=== PATIENT | female | born 1960 | race Caucasian/White ===

== ENCOUNTER 2020-05-10 16:03 | Emergency (ER) | payer OTHER ==
[~2020-05-10] VITALS: Ht 162.6 cm; Wt 63.5 kg
--- OUTSIDE RECORDS SUMMARY | 2020-05-10 18:10 | XMS ---
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 E.Srinivas. VISIT COUNT (12 MO.) 6 [facility] [place] [address] [place] [address] TOTAL 7 NOTE: Visits indicate total known visits. ED/UCC VISIT TRACKING (12 MO.) 05/10/2020 16:05 [facility] [place] TYPE: Emergency COMPLAINT: - POSSIBLE STROKE 04/27/2020 14:53 [facility] [place] TYPE: Emergency DIAGNOSES: - Abdominal Pain - Constipation - Esophageal obstruction - abd pain - Dysphagia, unspecified - Emesis 04/11/2020 19:16 [facility] [place] TYPE: Emergency DIAGNOSES: - poss allergic reaction, stomach pain, nausea - post surgery sent from - Anxiety disorder, unspecified - Hallucinations - Allergic Reaction (Major) - Anxiety - Allergic Reaction 04/05/2020 04:42 [facility] [place] TYPE: Emergency DIAGNOSES: - Dysphagia, unspecified - Allergic reaction - Unspecified adverse effect of drug or medicament, initial enc 03/31/2020 14:06 [facility] [place] TYPE: Emergency DIAGNOSES: - SOB - Shortness of Breath - Shortness of breath [facility] DIAGNOSES: - Dysphagia, unspecified - Shortness of Breath - SOB - Dysphagia 12/30/2019 10:00 [facility] [place] TYPE: Urgent Care DIAGNOSES: - Cough - Bronchitis, not specified as acute or chronic 11/22/2019 10:39 [address] [facility] [place] [place] TYPE: Urgent Care DIAGNOSES: - Dysphagia, unspecified - Medication Refill [facility]05[facility]2019 [facility] [place] [facility] DIAGNOSES: - Other specified eating disorder - Swallowing Difficulty - Dehydration - throat issues - Esophageal obstruction 08/31/2019 08:[address] [facility] [place] TYPE: Urgent Care DIAGNOSES: - Esophagitis, unspecified - Emesis INPATIENT VISIT TRACKING (12 MO.) No inpatient visits to display in this time frame [id number]
[2020-05-10] MEDS ORDERED: POTASSIUM40 MEQ/15 PO (18:51)
--- NOTE | 2020-05-11 07:53 | EKG ---
[facility] [address] [facility] [place] [address] Signed Normal sinus rhythm Right atrial enlargement Nonspecific ST and T wave abnormality Abnormal ECG No previous ECGs available Confirmed by ISHAAN RAMIRES MD ([id number]) on 05/11/2020 7:52:49 AM Electronically Signed By: ISHAAN RAMIRES MD 05/11/20 0753 PATIENT NAME: IVIS VARGAS Electrocardiogram DATE OF : 62 PHYSICIAN: ISHAAN RAMIRES MD REPORT #: [id number] REPORT IS CONFIDENTIAL AND NOT TO BE RELEASED WITHOUT AUTHORIZATION
[2020-05-11] MEDS ORDERED: NITROSTAT0.4 MG SL (10:48)
[2020-05-11] MEDS ORDERED: PROTONIX40 MG PO (10:49)
[2020-05-11] MEDS ORDERED: BUSPIRONE HCL5 MG PO (10:49)
[2020-05-11] MEDS ORDERED: CARDIZEM60 MG PO (10:50)
[2020-05-11] MEDS ORDERED: IMIPRAMINE HCL25 MG PO (10:50)
[2020-05-11] MEDS ORDERED: TRAZODONE HCL50 MG PO (10:51)
== END 2020-05-10 18:59 | disposition short-term general hospital (02) ==
LOC: ED 16:03
DX: E87.6 Hypokalemia (principal)
CPT/HCPCS: 70450; 70496; 70498; 71045; 80053; 81001; 85025; 85610; 85730; 93005; 93010; 99285-25; Q9967

== ENCOUNTER 2020-05-11 03:38 | Inpatient (IN) | payer OTHER ==
[~2020-05-11] VITALS: Ht 162.6 cm; Wt 69.4 kg
[~2020-05-11 03:38] MED LIST: POTASSIUM40 MEQ/15 PO
--- OUTSIDE RECORDS SUMMARY | 2020-05-11 03:40 | XMS ---
PreManage Notification: IVIS VARGAS Security Prefitter Events No recent Security Events currently on file CRITERIA MET - 6 ED Visits in 6 Months - [facility] - 2 Visits in 30 Days CARE PROVIDERS YOLANDA BLANCA Internal Medicine Current PHONE: [phone] Geovanny has no Care Guidelines for this patient. E.Jovita VISIT COUNT (12 MO.) 6 [facility] [address] TOTAL 8 NOTE: Visits indicate total known visits. ED/UCC VISIT TRACKING (12 MO.) 05/11/2020 03:39 [facility] TYPE: Emergency COMPLAINT: - SEIZURE 05/10/2020 16:05 [facility] [place] TYPE: Emergency COMPLAINT: - POSSIBLE STROKE 04/27/2020 14:53 [facility] [place] TYPE: Emergency DIAGNOSES: - Abdominal Pain - Constipation - Esophageal obstruction - abd pain - Dysphagia, unspecified - Emesis 04[facility]11/2020 [facility] [facility] [place] [facility] DIAGNOSES: - poss allergic reaction, stomach pain, nausea - post surgery sent from - Anxiety disorder, unspecified - Hallucinations - Allergic Reaction (Major) - Anxiety - Allergic Reaction 04/05/2020 04:[address] [facility] [place] [facility] DIAGNOSES: - Dysphagia, unspecified - Allergic reaction - Unspecified adverse effect of drug or medicament, initial enc 03/31/2020 14:[address] [facility] [facility] [place] [facility] Emergency DIAGNOSES: - SOB - Shortness of Breath - Shortness of breath 03/11/2020 23[facility] [facility] [place] [facility] DIAGNOSES: - Dysphagia, unspecified - Shortness of Breath - SOB - Dysphagia 12/30/2019 10:00 [facility] [place] TYPE: Urgent Care DIAGNOSES: - Cough - Bronchitis, not specified as acute or chronic [facility] [place] TYPE: Urgent Care DIAGNOSES: - Dysphagia, unspecified - Medication Refill 09/05/2019 14:30 [facility] [place] [facility] DIAGNOSES: - Other specified eating disorder - Swallowing Difficulty - Dehydration - throat issues - Esophageal obstruction 08/31/2019 08:40 [facility] [place] TYPE: Urgent Care DIAGNOSES: - Esophagitis, unspecified - Emesis INPATIENT VISIT TRACKING (12 MO.) No inpatient visits to display in this time frame [email or web address]
--- NOTE | 2020-05-11 07:32 | NUR ---
PT ARRIVED TO ROOM 129 AT 0620 VIA STRETCHER ACCOMPANIED BY HER MOTHER, ROSEY. PT TRANSFERRED TO BED VIA DRAW SHEET. PT OPENS EYES TO VOICE, PUPILS EQUAL, ROUND, AND REACTIVE TO LIGHT. PT OBEYS COMMANDS TO SQUEEZE HANDS. SPEECH IS GARBLED AND DIFFICULT TO UNDERSTAND. PT SLEEPS IN BETWEEN STIMULATION. SKIN GROSSLY INTACT. IV INTACT AND PATENT, FLUIDS INFUSING WNL. PICKETT PATENT AND DRAINING FREELY. PT'S MOTHER ASSISTED WITH MEDICAL HISTORY TO THE BEST OF HER ABILITY. ROOM DARKENED, SEIZURE PADS PLACED, AND BED ALARM SET FOR SAFETY. REPORT GIVEN TO DAY SHIFT NURSES.
--- NOTE | 2020-05-11 07:50 | NUR ---
SLEEPING, NO DISTRESS NOTED.
[2020-05-11] MEDS ORDERED: NITROSTAT0.4 MG SL (10:48)
[2020-05-11] MEDS ORDERED: PROTONIX40 MG PO (10:49)
[2020-05-11] MEDS ORDERED: BUSPIRONE HCL5 MG PO (10:49)
[2020-05-11] MEDS ORDERED: IMIPRAMINE HCL25 MG PO (10:50)
[2020-05-11] MEDS ORDERED: CARDIZEM60 MG PO (10:50)
[2020-05-11] MEDS ORDERED: TRAZODONE HCL50 MG PO (10:51)
--- NOTE | 2020-05-11 11:00 | NUR ---
AWAKE, IS FOLLOWING COMMANDS. DENIES PAIN. ICE CHIPS GIVEN.FAMILY MEMBER IN ROOM.
--- NOTE | 2020-05-11 11:05 | NUR ---
MED REC COMPLETE
--- NOTE | 2020-05-11 12:00 | NUR ---
MORE ALERT. ASSESSMENT DONE. FRIEND REMAINS IN ROOM.
--- NOTE | 2020-05-11 13:00 | NUR ---
TAKING CLEAR LIQUID LUNCH. NO SWALLING TROUBLE NOTED AT THIS TIME.
--- NOTE | 2020-05-11 14:35 | NUR ---
C/O BLADDER DISCOMFORT. ATTEMPTED SEVERAL TIMES TO TALK WITH PATIENT ABOUT PICKETT CATH. HAS MULTIPLE OTHER PROBLEMS R/T HER HEALTH. IS FEARFUL WHEN SOMEONE NOT IN ROOM. NO TREMORS OF SEIZURE LIKE ACTIVITY NOTED THUS FAR TODAY. REPOSITIONED IN BED. SEIZURE PRECAUTIONS REMAIN IN PLACE.
--- NOTE | 2020-05-11 15:51 | NUR ---
PATIENT RESTLESS, SISTER IN ROOM.
--- NOTE | 2020-05-11 17:00 | NUR ---
SITTING UP IN BED FOR CLEAR LIQ DIET. PATIENT REPEATS HERSELF MANY TIMES, SAYING I'M DEHYDRATED, I'M GOING TO , MY FAMILY IS GOING TO IF THEY THEY COME HERE. TALKED WITH PATIENT MANY TIME ABOUT THIS, I CANNOT GET THROUGH TO HER ABOUT THIS. PATIENT IS FRUSTRATED. NO SEIZURE ACTIVITY NOT SO FAR TODAY.
--- NOTE | 2020-05-11 18:59 | NUR ---
NO CHANGES, REPORT TO NEXT SHIFT.
--- NOTE | 2020-05-11 19:04 | NUR ---
RESTING, NO CHANGES AT THIS TIME.
--- NOTE | 2020-05-11 20:35 | NUR ---
PT IS AWAKE, AT FIRST UNABLE TO STATE WHERE SHE WAS BUT LATER WAS ABLE TO SAY SHE WAS IN [place] AND THAT IT WAS 2019. MOSTLY RAMBLES ABOUT BEING DEHYDRATED AND ASKING ABOUT "WATER PILL". HAD PT TAKE SPOONFUL OF WATER AND SHE REACHED FOR HER THROAT AFTER SWALLOWING AND STATED SHE FELT LIKE HER THROAT WAS CLOSING. PT DID NOT CHOKE. PT ALSO SAYS SHE IS DYING. MOTHER OF PT IN TO SEE HER. SPOKE OF PLAN FOR TONIGHT TO MONITOR VS, GIVE ANTI SIEZURE MED AND WILL REEVALUATE IN AM. CATH CARE DONE.
--- NOTE | 2020-05-11 22:00 | NUR ---
RESTING IN BED, OCC REACHING OUT OR SITTING UP TO LOOK AROUND.
--- NOTE | 2020-05-12 00:05 | NUR ---
PT FREQUENTLY MUMBLES, OCC DIFFICULT TO UNDERSTAND. DECLINES OFFER OF WATER. 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 WHEN INFORMED SHE HAD HAD A SEIZURE PT HAD PUZZLED LOOK TO FACE. ASSURED WAS IN A SAFE PLACE.
--- NOTE | 2020-05-12 01:39 | NUR ---
PT IS NOT SLEEPING, OCCVEYES ARE CLOSED BUT IS FREQ REACHING WITH ARMS. CON TO MUMBLE ANSWERS.
--- NOTE | 2020-05-12 03:41 | NUR ---
WILL CLOSE EYES FOR SHORT PERIODS OF TIME. CONT TO HAVE DIFFICULTY UNDERSTANDING CONCEPTS AND EVENTS. PT DOESN'T BELIEVE THAT PICKETT CATHETER IS DRAINING DESPITE BEING SHOWN THE BAG WITH URINE. HAS QUIT TALKING ABOUT BEING DEHYDRATED. CAN TELL ME WHERE SHE LIVES BUT NOT WHAT SHE DID FOR A LIVING. JIM TOUCHES HAIR, WHEN ASKED IF HAD A HEADACHE SHE REPEATED THE PHRASE BACK TO ME SO UNSURE IF SHE DOES. SPEECH IS STILL SOMEWHAT DIFFICULT TO UNDERSTAND SHE MUMBLES.
--- NOTE | 2020-05-12 05:52 | NUR ---
LAB IN TO DRAW BLOOD. PT IS AWAKE BUT LESS TALKATIVE THIS AM. REFUSES WATER WHEN OFFERED.
--- NOTE | 2020-05-12 08:15 | NUR ---
PT IV SITES ARE INTACT, NO REDNESS OR SWELLING NOTED, FLUSH AND FLUIDS INFUSE EASILY. PT NOT INTERACTING WELL, APPEARS TO NOT BE PAINFUL AT EITHER SITE.
--- NOTE | 2020-05-12 11:53 | NUR ---
PT GIVEN CLEAR ENSURE WITH A STRAW AND IS ABLE TO DRINK IT HERSELF. PT BOOSTED UP IN THE BED WITH ASSISTANCE FROM RN, PT ABLE TO PARTICIPATE WELL. PT VITALS ARE WNL AT THIS TIME. LUNGS ARE CLEAR, BOWEL TONES ARE ACTIVE.
--- NOTE | 2020-05-12 13:00 | NUR ---
pt incontinent of large amount of urine into attends. pt gown changed due to spilling small amount of drinking water on herself. pt cooperative with rolling from side to side to change. pt boosted up in bed and repositioned for comfort.
--- NOTE | 2020-05-12 14:30 | NUR ---
IN ROOM TALKING WITH PT'S SISTER, , ABOUT RECENT HEALTH ISSUES. JONES IS A GOOD HISTORIAN.
--- NOTE | 2020-05-12 15:15 | NUR ---
pt transfered to room 122 on med\surg via the bed, pt diomedes well. all personal belongings went with pt, all kits meds transfered with pt and pt chart.
--- NOTE | 2020-05-12 15:46 | NUR ---
1530: PT ARRIVED TO MED SURG VIA A BED TRANSFER FROM CCU. REPORT RECIEVIED FROM MATT MORA. PT APPEARS SOMNOLENT WHICH IS ALSO WHAT I WAS TOLD IN REPORT AND IS AN IMPROVEMENT FROM THIS MORNING. THE PT DOES FOLLOW COMMANDS AND ANSWERS QUESTIONS WITH ONE TO TWO WORD ANSWERS WHICH ARE SLOW AND SLURRED. VITAL SIGNS ARE STABLE AND IN REPORT I WAS NOTIFED THE HEAD CT WAS NEGATIVE. SEE ASSESSMENT.
--- NOTE | 2020-05-12 16:04 | NUR ---
BED RAILS UP X4 WITH PADS IN PLACE. PT ORIENTED TO HER ROOM AND HER CALL WILDE IS WITHIN REACH. HOB REMAINS ELEVATED.
--- NOTE | 2020-05-12 17:37 | NUR ---
PT INCONT OF URINE. PT CLEANED AND FRESH ATTENDS PLACED. PT DENIES ANY PAIN OR PROBLEMS AT THIS TIME.
--- NOTE | 2020-05-12 18:14 | NUR ---
PATIENT IN BED RESTING WITH EYES CLOSED. CALL LIGHT IN REACH. NO FURTHER NEEDS AT THIS TIME.
--- NOTE | 2020-05-12 18:17 | NUR ---
SINCE THE PT ARRIVED TO MED SURG SHE HAS DRANK 100ML OF CLEAR ENSURE. SHE DECLINES THE DESIRE FOR ANYMORE AT THIS TIME.
--- NOTE | 2020-05-12 19:20 | NUR ---
BEDSIDE REPORT RECEIVED FROM OFFGOING RNALYSSA. PT RESTING IN BED AWAKE. ANSWERS QUESTIONS, SLOW TO RESPOND, MUMBLED SPEECH. PT DENIES NEEDS. CALL LIGHT IN REACH.
--- NOTE | 2020-05-12 20:30 | NUR ---
LATEX CASTER TO ROOM FOR ASSESSMNET. PT FIDGETING IN BED. WHEN ASKED IF SHE IS OK, STATES "I HAVE TO GO PEE". LATEX CASTER AND 2ND RN ASSISTED PT TO BSC. PT TOLERATED WELL. PT ABLE TO WIPE HER OWN AAKASH AREA WITH INSTRUCTION. PT BACK TO BED WITH 2PA. ATTENDS AND AAKASH PAD IN PLACE. SEIZURE PADS IN PLACE. BED ALARM REPLACED.
--- NOTE | 2020-05-12 20:58 | NUR ---
PT ASSESSMENT COMPLETE. PT SLOW TO RESPOND. DISORIENTED TO PLACE CURRENTLY, ABLE TO STATE THAT SHE LIVES IN [place]. PT OTHERWISE ORIENTED BUT VERY DROWSY. LOOKING AROUND ROOM. LOOKING AT IV SITES. COMMISSIONS MANAGER STATES I KNOW THIS IS VERY SCARY, PT SHAKES HER HEAD YES. POC EXPLANED. PT DENIES QUESTIONS. PT SHAKES HER HEAD NO WHEN ASKED IF SHE HAS PAIN. TELE #[address], EXPLAINED TELE TO PT. IV SITES X 2 FLUSHED, WNL. PT DENIES NEEDS. CALL LIGHT IN REACH. BED ALARM ACTIVE.
--- NOTE | 2020-05-12 23:47 | NUR ---
PT RESTING IN BED WITH EYES CLOSED. DOES NOT WAKE WHILE ARMOURED CAR ESCORT AT BEDSIDE. CALL LIGHT IN REACH, BEDALARM ACTIVE.
--- NOTE | 2020-05-13 03:00 | NUR ---
PT ASSESSMENT COMPLETE. PT RESTING WITH EYES CLOSED WHEN NURSE WOUND CARE ENTERS THE ROOM. WAKES TO VOICE. PT DROWSY, FALLS BACK TO WHILE NURSE WOUND CARE PERFORMING ASSESSMENT, IN BETWEEN QUESTIONS. PT DISORIENTED TO PLACE, EVENT. ATTENDS CHANGED, PT ABLE TO ROLL SLIGHT IN BED WITH MINIMAL ASSISTANCE. SENSATION INTACT TO ALL EXTREMITIES. GENERALIZED WEAKNESS NOTED. PT DECLINES FURTHER NEEDS. REQUESTS TO KEEP THE LIGHTS ON. CALL LIGHT IN REACH.
--- NOTE | 2020-05-13 05:36 | NUR ---
HEALTHCARE OR MEDICAL TO ROOMTO ASSIST PADDOCK JUDGE WITH DRAW. PT AWAKE. DECLINES PAIN. PT REMAINS SLOW TO RESPOND TO QUESTIONS. 1-2 WORD ANSWERS OR HEAD SHAKE/NOD RESPONSE. ATTENDS CHANGED BY BRISTLE MACHINE OPERATOR AND THIS HEALTHCARE OR MEDICAL. PT TURNS WELL IN BED WITH MINIMAL ASSISTANCE. DENIES NEEDS AT THIS TIME. CALL LIGHT IN REACH. BED ALARM ACTIVE.
--- NOTE | 2020-05-13 07:30 | NUR ---
PT QUIET ALERT DURING BEDSIDE REPORT DENIES NEEDS OR DISCOMFORTS. ASSISTED TO CHANGE WET UNDERGARMENT AND REPOSITION. CALL LIGHT IN REACH, SEIZURE PADS IN PLACE.
--- NOTE | 2020-05-13 09:39 | NUR ---
PT UP TO THE CHAIR TOLERATES SIPS OF LIQUIDS ONLY REFUSES OFFER OF ALTERNATIVES. WORKING WITH P/T AT THIS TIME APPEARS TO BE PUTTING FORTH EFFORT AND IS COOPERATIVE
--- NOTE | 2020-05-13 10:54 | NUR ---
PATIENT IN CHAIR RESTING. WARM WASHCLOTH GIVEN. LINENS CHANGED. PATIENT SAID NO TO BEDBATH AT THIS TIME. CALL LIGHT IN REACH. NO FURTHER NEEDS AT THIS TIME.
--- NOTE | 2020-05-13 12:17 | NUR ---
DR RAMIRES IN TO SEE PT, SHE CONTINUES UP IN THE CHAIR FOR NOON MEAL. REFUSES CLEAR LIQUIDS AND OFFERS OF ALTERNATIVES, STATES SHE "JUST DON'T WANT ANY RIGHT NOW" FAMILY PRESENT IN ROOM.
--- NOTE | 2020-05-13 13:38 | NUR ---
PT CONTINUES UP IN THE CHAIR VISITING WITH HER SON.
--- NOTE | 2020-05-13 14:05 | NUR ---
VISITOR IN ROOM CAME TO NURSES STATION AND SAID PATIENT WAS UNCOMFORTABLE, ME AND RN WENT IN AND TRANSFERED PATIENT FROM CHAIR TO BED, 2PA. V\S TAKEN. CALL LIGHT IN REACH. NO FURTHER NEEDS AT THIS TIME.
--- NOTE | 2020-05-13 14:15 | NUR ---
PT SITTING IN CHAIR, BLANKET ON AND Denisha SAUNDERS SITTING AT HER SIDE. PT SLOW TO RESPOND, WOULD SOMETIMES LOOK IN AIR FOR ANSWERS.OFTEN TIMES PT WOULD LOOK TO NICKY FOR ANSWERS WELL. LEFT A G.POST, AND GAVE BLESSING. NICKY WAS QUICK TO THANK ME
--- NOTE | 2020-05-13 15:35 | NUR ---
SPOKE WITH PATIENT AND SIGNIFICANT OTHER, LUCIUS IN ROOM. HE STATES SHE LIVES WITH HIM IN [facility]. HE WORKS. SHE USED TO WORK UP UNTIL NOVEMBER. PATIENT IS ABLE TO ANSWER QUESTIONS, BUT DOES SO WEAKLY. PATIENT CAME TO STAY WITH HER MOTHER A WEEK AGO DUE TO WEAKNESS HE WORKS AND CANNOT BE THERE ALL THE TIME. HE STATED ALSO THAT SHE WOULD CALL HIM AT WORK ASKING FOR HELP AND HE CAN'T LEAVE ALL THE TIME. HE STATES HER HEALTH HAS BEEN GOING DOWN FOR THE LAST SEVERAL MONTHS. SHE HAS LOST ABOUT 40 POUNDS BECAUSE SHE CAN'T SWALLOW WELL. HE STATES AT THEIR PLACE THERE IS 7 STEPS IN WITH A RAIL. THE LAUNDRY IS DOWNSTAIRS BUT HE HAS BEEN DOING THAT. HE STATES SHE WAS DRIVING UP UNTIL A FEW WEEKS AGO. HE STATES SHE HAS FELL A FEW TIMES. SHE HAS A CANE, BUT HASN'T BEEN USING IT. PATIENT STATES SHE USES [facility] IN [facility] [place] FOR MEDS, BUT USED [facility] IN [place] THIS LAST WEEK SAYING WITH HER MOM. THEY BOTH STATE PATIENT WILL RETURN HOME WITH MOTHER AT DISCHARGE FOR NOW. HE STATES MOM IS WORKING ON PATIENT GETTING DISABILITY SINCE SHE CAN'T WORK. THEY STATE THEY REALIZE THIS IS A "JAIL PROBLEM". DISCUSSED WE CAN'T FIX THIS IN AN ACUTE SETTING AND SHE WILL NEED TO CONTINUE WORKING WITH PCP FOR OUTPATIENT WORK-UP. HE STATES SHE HASN'T HAD PROBLEMS WITH AFFORDING MEDICATIONS AND HE PAYS THE FOOD AND UTILITIES SO THEY DON'T FEEL WORRIED ABOUT THAT. PATIENT HELPS WITH THIS INFO. THEY ARE BOTH WORRIED ABOUT WHY THIS IS HAPPENING. QUESTIONS ANSWERED. CM WILL CONTINUE TO FOLLOW.
--- NOTE | 2020-05-13 17:43 | NUR ---
PT RESTING IN BED, FRIEND IS PRESENT ENCOURAGING HER TO INCREASE PO INTAKE. DENIES DISCOMFORTS OR NEEDS OF
--- NOTE | 2020-05-13 19:15 | NUR ---
PATIENT HAD INCONT, AAKASH CARE DONE. NEW ATTENDS IN PLACE. PATIENT STILL WORKING ON DINNER. CALL LIGHT IN REACH. NO FURTHER NEEDS AT THIS TIME.
--- NOTE | 2020-05-13 19:25 | NUR ---
BEDSIDE REPORT RECEIVED FROM OFFGOING RNEARNEST. PT'S ENTERING THE ROOM REPORT ENDING.
--- NOTE | 2020-05-13 19:25 | NUR ---
BEDSIDE REPORT RECEIVED FROM OFFGOING RNTIMO. PT RESTING IN BED AWAKE. DENIES NEEDS AT THIS TIME. CALL LIGHT IN REACH.
--- NOTE | 2020-05-13 21:14 | NUR ---
IV PUMP ALARMING, IVF NOW INFUSING WNL ORDERED. TRAY TABLE CLEARED. pt SLOW TO RESPOND, DOES NOT STATE ANY REQUESTS OR CONCERNS. CALL LIGHT IN REACH.
--- NOTE | 2020-05-13 22:14 | NUR ---
PT ASSESSMENT COMPLETE. PT RESTING IN BED, HOLDING HER STOMACH. STATES THAT SHE IS CONCERNED ABOUT HER "FLUIDS" AND THAT SHE IS "RUNNING OUT OF FLUIDS". PT IS ALERT AND ORIENTED, BUT FORGETFUL AND VERY SLOW TO RESPOND DENIES PAIN, NAUSEA, OR SOB. PT NOTED TO HAVE A MODERATE AMOUNT OF ABD DISTENSION. BT'S ACTIVE. ABD VERY TENDER TO PALPATION. PT IS UNSURE OF WHEN HER LAST BM WAS. STATES "IT'S BEEN A WHILE". PRN ENEMA ADMINSTERED. PT TOLERATED WELL. DENIES FURTHER NEEDS AT THIS TIME. CALL LIGHT IN REACH.
--- NOTE | 2020-05-13 23:20 | NUR ---
PT RESTING IN BED AWAKE. FIDGETING WITH BLANKET AND CALL LIGHT. PT UNABLE TO VERBALIZE ANY NEEDS AT THIS TIME. YET TO HAVE RESULTS FROM ENEMA. CALL LIGHT IN REACH.
--- NOTE | 2020-05-14 01:30 | NUR ---
THIS MEDICAID BUSINESS ANALYST AND PRIMARY RN PABLITO WIPED/CLEANED PATIENT FROM URINE INCONTINENT AND NEW ATTENDS IN PLACE. CHANGED CLEAN GOWN.
--- NOTE | 2020-05-14 02:03 | NUR ---
PT ASSESSMENT COMPLETE. PT IS VERY DROWSY DURING ASSESSMENT. WAKES EASILY, FALLS BACK TO SLEEP EASILY. RESPONSES TO QUESTIONS ARE SLOWER AND LESS CONSISTENT THAN PREVIOUS ASSESSMENT. PT DENIES PAIN, NAUSEA, OR SOB. ABD IS SLIGHTLY LESS DISTENDED THAN AT PREVIOUS ASSEMENT. BT'S ACTIVE. REMAINS TENDER TO PALPATION. PT HAS A SMEAR OF BM PRESENT IN ATTENDS, VERY SATURATED WITH URINE AND LIKELY ENEMA FLUID. PT DECLINES FURTHER NEEDS. RESTING WITH EYES SHUT WRTIER EXITS THE ROOM. CALL LIGHT IN REACH.
--- NOTE | 2020-05-14 07:40 | NUR ---
pt awake at beside report resting in bed. up to the bsc has a med soft bm then self transfers to the chair. pt brushing her teeth and doing self cares. denies discomforts or needs of
--- NOTE | 2020-05-14 07:52 | NUR ---
Pharmacy compounded trazodone suspension and buspirone suspension per physician request. Currently both medications are scheduled, please verify with physician that she wants them both scheduled vs prn.
--- NOTE | 2020-05-14 09:59 | NUR ---
PT CONTINUES UP IN THE CHAIR. NO SWALLOW PROBLEMS NOTED WITH CLEAR LIQUID BREAKFAST, PT IS SELF FEEDING. P/T IN TO WORK WITH HER.
--- NOTE | 2020-05-14 10:33 | NUR ---
PATIENT SITTING UP IN CHAIR RESTING. B\P ROSELIA, RN NOTIFIED. CALL LIGHT IN REACH. NO FURTHER NEEDS AT THIS TIME. RN SAID SHE DID AM CARE AND ORAL CARE WITH PATIENT.
--- NOTE | 2020-05-14 10:35 | NUR ---
LOW BP REPORTED TO DR RAMIRES
--- NOTE | 2020-05-14 11:00 | NUR ---
Spoke with Flor, lengthy discussion. Pt's speech is slow and thoughts are delayed. States she has been declining since Dec. when she could no longer work. She has Barretts and has not been able to eat and has lost 40 pounds. Has seizures. WAs living in her home in [place] with her boyfriend, he was unable to care for her as she has declined. She has been staying for her mom for 10 days. There is some concern as her mother stopped all her medications. Options given of returning home; she will need cg, as she cannot function on her home; returning to mother's house, she does not want to do this; or going to a SNF, she is unsure if she wants to do so. She understands she cannot live on her own at this time. Mother will be in later and I will meet with them.
--- NOTE | 2020-05-14 12:35 | NUR ---
PT IS UP IN THE CHAIR MOTHER IS PRESENT. C/O DIFFICULT SWALLOW WHICH IS CHRONIC FOR HER. CLEAR LIQUID DIET PROVIDED
--- NOTE | 2020-05-14 13:30 | NUR ---
Notified by Dr. Spence, pt's mom is in the room. In and spoke with pt and mother. Mom states pt cannot come home with her as she is not set up for her care. Mom is currently working with SSI for disability. She would like a state paid cg. Discussed, pt will need to qualify for this. Suggested she stop at [facility] when she leaves and requests eval. Let her know this can take up to 45 days. Mother states she is exhausted and not sure she can do all of this. [place] and [place] to assist. Discussed placement to SNF, pt would like to go to as this would be near her boyfriend. Mom states she wants to discuss with pts sister and boyfriend. Informed I will send the chart as the pt indicated this is where she would like to go.
--- NOTE | 2020-05-14 14:35 | NUR ---
PATIENT UP TO BATHROOM AND BACK TO CHAIR, 1PA FWW. MOTHER IN ROOM. CALL LIGHT IN REACH. NO FURTHER NEEDS AT THIS TIME.
--- NOTE | 2020-05-14 15:25 | NUR ---
Face sheet, progress notes, H&P, PT/OT eval and notes, medications faxed to [facility].
--- NOTE | 2020-05-14 16:17 | NUR ---
ASSISTED PT TO SHOWER AND SHAMPOO RETURNED TO RECLINER CHAIR, AGREES SHE FEELS BETTER. NEEDED ITEMS IN REACH.
--- NOTE | 2020-05-14 18:45 | NUR ---
PATIENT SITTING UP IN CHAIR. NEW COOK ENSURE GIVEN. CALL LIGHT IN REACH. NO FURTHER NEEDS AT THIS TIME.
--- NOTE | 2020-05-14 19:47 | NUR ---
BEDSIDE REPORT RECIEVED FROM NURSE JAIN. PT IS ALERT AND RESPONSIVE. PT IS UP IN CHAIR, CALL LIGHT IN REACH.
--- NOTE | 2020-05-14 21:28 | NUR ---
ASSESSMENT COMPLETE. pt HAD BEEN SLEEPING IN CHAIR. pt ORIENTED, ENCOURAGED TO USE TOILET. pt AMBULATED WITH FWW AND SBA. pt DROWSY ON TOILET. pt STATES SHE HAS NO PAIN. pt RETURNED TO BED, SIEZURE PADS IN PLACE, CALL LIGHT WITHIN REACH.
--- NOTE | 2020-05-14 23:59 | NUR ---
ROUND COMPLETED. pt SLEEPING. NO SIGNS OF DISTRESS.
--- NOTE | 2020-05-15 03:28 | NUR ---
ASSESSMENT COMPLETE. pt UP TO BSC WITH SBA. pt IS ORIENTED BUT DROWSY. pt REPOSITIONED AND SECOND PILLOW PROVIDED. CALL LIGHT WITHIN REACH.
--- NOTE | 2020-05-15 06:01 | NUR ---
pt SLEPT WELL THROUGHOUT NIGHT. pt NEEDS ENCOURAGEMENT TO VOID AND WAS SLIGHTLY WET IN ATTENDS. pt DID NOT CALL FOR URINATING BUT WAS ABLE TO VOID DECENT AMOUNT EACH TIME ON BSC OR TOILET. pt CONTINUES TO BE SLOW TO RESPOND BUT DOES RESPOND APPROPRIATELY WHEN GIVEN TIME ALTHOUGH SPEECH IS SOMEWHAT SLURRED. pt AMBULATES WITH WALK AND SBA. pt DOES NOT SEEM TO REPOSITION HERSELF DURING SLEEP.
--- NOTE | 2020-05-15 07:35 | NUR ---
PATIENT SITTING UP IN BED. PATIENT'S HANDS AND FACE WASHED. WITHE BOARD UPDATED. CALL LIGHT WITHIN REACH. NO OTHER NEEDS AT THIS TIME
--- NOTE | 2020-05-15 07:46 | NUR ---
received report from patrizia griffith. pt sitting in bed with seizure pads on. pt states that she is feeling confused this am. pt appears to be drowsy at this time
--- NOTE | 2020-05-15 10:13 | NUR ---
PATIENT SITTING UP IN CHAIR. PATIENT REFUSED TO TAKE A SHOWER TODAY BECAUSE SAID THAT HAD A BEDBATH YESTERDAY. LINENS CHANGED. VITAL SIGNS AND I&O DONE. LOW BLOOD PRESSURE. RN NOTIFIED. WARM BLANKET PROVIDED. CALL LIGHT WITHIN REACH. NO OTHER NEEDS AT THIS TIME
--- NOTE | 2020-05-15 11:30 | NUR ---
[facility]ed [facility] to confirm they recieved the chart I faxed last night. They decline to take this pt. Called and spoke with WBT as I had faxed her chart this am. They also decline this patient.
--- NOTE | 2020-05-15 13:18 | NUR ---
PATIENT SITTING UP IN CHAIR. PATIENT USES THE BATHROOM, ONE PERSON ASSISTING WITH WALKER. PATIENT BACKS TO CHAIR. VITAL SIGNS AND I&O DONE. CALL LIGHT WITHIN REACH. NO OTHER NEEDS AT THIS TIME
--- NOTE | 2020-05-15 13:30 | NUR ---
Faxed chart to [facility].
--- NOTE | 2020-05-15 15:21 | NUR ---
Called and spoke with Nicole at [facility]. She recieved Flor's chart. They are on hold for taking pts at this time by the state. They declined this pt.
--- NOTE | 2020-05-15 15:45 | NUR ---
IN PTS ROOM TO GIVE AFTERNOON MEDS. PT APPEARS TO BE DEPRESSED AND MOANS TO TALK- PT IS NOT IN PAIN- PT TALKING A LOT ABOUT HOW HER OUTCOME LOOKS DISMAL. DISCUSSED WITH PT DOING A PEG TUBE VS NOT DOING A PEG TUBE. PT WILL NEED MORE EDUCATION ON THIS AND THE CARE THAT SHE WILL NEED TO RECIEVE IN REGARDS TO A PEG TUBE. PT ALSO STATES THAT SHE IS WORRIED ABOUT HER FINANCES. TALKED WITH PT FOR ABOUT 30MINS ABOUT HER SITUATION.
--- NOTE | 2020-05-15 16:48 | NUR ---
PATIENT SITTING UP IN CHAIR. YARELY USES THE BATHROOM, ONE PERSON ASSISTING WITH WALKER. PATIENT BACKS TO CHAIR. VITAL SIGNS AND I&O DONE. CALL LIGHT WITHIN REACH. NO OTHER NEEDS AT THIS TIME
--- NOTE | 2020-05-15 18:05 | NUR ---
IN PTS ROOM TO SEE IF PT WANTED TO GET BACK TO BED. PT STATED THAT SHE STILL HASN'T HAD DINNER YET AND AFTER SHE HAS EATEN HER DINNER THEN SHE WILL WANT TO GET BACK TO BED. PT STATES THAT SHE HAS A DRY THROAT, THIS RN OFFERED PT 7UP, JUICE, MORE WATER AND PT JUST WRINKLED UP HER NOSE AT EACH OFFERING, DISCUSSED WITH PT THAT IF SHE THINKS OF SOMETHING SHE WANTS TO PRESS HER CALL LIGHT
--- NOTE | 2020-05-15 19:15 | NUR ---
bedside report from Analia rn - pt in , very slow with resonse verbal. call light in reach - denies needs, and offers of fluids or more dinner liquids.
--- NOTE | 2020-05-15 20:46 | NUR ---
pt up in tollerated 3 oral liquid meds with no swallowing problems. theraputic peñaloza drink given after to help with taste of meds. pt was anxious taking meds - but with encouagement did well.
--- NOTE | 2020-05-15 22:37 | NUR ---
THIS FUEL RETROFITTING TECHNICIAN AND FLOAT FUEL RETROFITTING TECHNICIAN SUKUMAR HELPED PATIENT FROM CHAIR TO BED. AAKASH CARE AND CHANGED ATTENDS DONE. BED RAILS SEIZURE PADS ON. CALL LIGHT WITHIN REACH. V/S AND I&O TAKEN AND RECORDED.
--- NOTE | 2020-05-15 23:20 | NUR ---
PT IN BED, DENIES NEEDS, CALL LIGHT IN REACH. TOLLERATED THE ENSURE DRINK WELL.
--- NOTE | 2020-05-16 00:33 | NUR ---
PT IN BED RESP. RATE REGULAR. CALL LIGHT IN REACH.
--- NOTE | 2020-05-16 04:42 | NUR ---
CALL LIGHT IN REACH - RESP RATE EVEN. APPEARS COMFORTABLE.
--- NOTE | 2020-05-16 05:07 | NUR ---
PT WAS IN ER 05/10 FOR FALL AND STROKE LIKE SX. LOW KCL DECLINED ADMIT DUE TO ANXIETY, 05/11 RETURNED TO ER WITH CAREGIVER (MOTHER) WHO REPORTED FALL AND SEIZURE. PT HAS NOT BEEN TAKING HER HOME MEDS DUE TO FAWN AVALOS. AND HAS A HX OF SEIZURE, ANXIETY AND DEPRESSION AND OTHER PSYCIATRIC DISORDERS CHRONIC. DYSPHASIA AND WEAKNESS ARE CONTINUEING. PT HAS FLAT SLOW AFFECT. SL WITH CLEAR LIQ. DIET - TOOK IN A ENSURE JUICE AFTER ORAL LIQUID MEDS WERE TAKEN WITHOUT DIFFICULTY. POSSIBLE FEEDING TUBE PLACEMENT, CHRONIC WT. LOSS AND DIFFICULTY WITH SWALLOWING FOOD AND MEDICATIONS. SLEPT WELL LAST NIGHT AND DENIES NEEDS.
--- NOTE | 2020-05-16 06:53 | NUR ---
PT BP RE CHECKED WNL - PT DRINKING H2O WITH NO PROBLEMS - ANXIOUS - REPORTS THAT SHE IS GOING TO OF DEHYDRATION. MOUTH AND LIPS MOIST - DENIES OFFER FOR CHAP STICK - TOUNGE MOIST AND TAKING WATER AT THIS TIME.
--- NOTE | 2020-05-16 07:21 | NUR ---
Report recieved from MORGAN Penn. Introduced self to patient. Sips of water provided. Denies other needs at this time. Call light in reach, bed rails up X2, seizure pads in place.
--- NOTE | 2020-05-16 10:11 | NUR ---
PT WAS UPRIGHT IN CHAIR WITH CLEAR LIQUID TRAY UPON ST ARRIVAL. PT REQUIRED SIGNIFICANT ENCOURAGMENT TO PARTICIPATE IN DYSPHAGIA COUNSELING AND PO TRIALS. EXTENSIVE EDUCATION PROVIDED REGARDING PEG TUBES INCLUDING PROS AND CONS, SURGICAL EXPECTATIONS, RECOVERY PROCESS, MAINTENANCE, AND DAY-TO-DAY EXPECTATIONS. IVIS EXPRESSED A LOT OF FEAR, UNCERTAINTY, AND HOPELESSNESS DURING THE CONVERSATION BY SAYING THINGS SUCH "I CAN'T SWALLOW ANYTHING I'M GOING TO SOON" "I'M SO SCARED I CANT SWALLOW ANYTHING" "I HAVE BEEN DEALING WITH THIS VISCIOUS CYCLE FOR SO LONG AND NOTHING HELPS." WE SPENT A LOT OF TIME DISCUSSING HOW A PEG TUBE WOULD SIGNIFICANTLY REDUCE IF NOT ELIMINATE MANY OF THOSE FEARS AND CONCERNS. SHE DID EXPRESS FEAR ABOUT DYING DURING THE SURGERY, WHICH I PROVIDED RESSAURANCE THAT WE WOULD NOT BE RECOMMENDING IT IF IT WAS A VERY HIGH RISK PROCEDURE FOR HER. I PROVIDED EDUCATION RIGHT NOW THAT SHE HAS PROBLEMS WITH MAINTAINING ADEQUATE NUTRITION AND HYDRATION D/T ESOPHAGEAL DYSPHAGIA AND THAT SHE IS VERY HIGH RISK IN THAT REGARD. SHE EXPRESSED FINANCIAL CONCERNS AND CONCERNS ABOUT NOT HAVING ANYWHERE TO GO WHEN SHE LEAVES HERE. OVER 1 HOUR WAS SPENT ON PEG TUBE COUNSELING. IVIS DID ASK ME SEVERAL QUESTIONS AND SEEMED TO BE MORE RECEPTIVE TOWARDS THE END, HOWEVER SHE DID REPEATEDLY TELL ME THAT SHE IS SCARED, THAT SHE DOESNT KNOW WHAT TO DO, AND THAT SHE DOESNT KNOW WHAT TO TELL ME. I ASSUARED HER THAT I DIDNT NEED HER TO MAKE A CHOICE RIGHT NOW AND I WOULD LIKE FOR HER TO THINK SERIOUSLY ABOUT THE THINGS WE TALKED ABOUT. PT PARTICIPATED IN 15 THIN LIQUID PO TRIALS, EXHIBITING SIGNIFICANT S/SX OF ESOPHAGEAL DYSPHAGIA ON EACH TRIAL (BURPING, AUDIBLE SWALLOW, ODYNOPHAGIA).
--- NOTE | 2020-05-16 10:24 | NUR ---
ASSESSMENT COMPLETED. AM MEDICATIONS GIVEN. TAKES A LOT OF PROMPTING TO TAKE MEDICATIONS. VERBALIZES MULTIPLE TIMES SHE IS DYING, REFUSES MULTIPLE TIMES TO TAKE MEDICATION. INFORMED OF NEED TO TAKE MEDICATION TO PREVENT SEIZURES AND FURTHER DETERIORATION IN HEALTH. FINALLY AGREES TO TAKE MEDICATIONS AND TAKES THEM WITHOUT DIFFICULTY. DENIES OTHER NEEDS AT THIS TIME. UP IN CHAIR. CALL LIGHT IN REACH.
--- NOTE | 2020-05-16 10:49 | NUR ---
SITTING UP IN CHAIR. DENIES NEEDS AT THIS TIME. CALL LIGHT IN REACH.
== END 2020-05-16 11:58 | disposition swing bed (61) | DRG 101 ==
LOC: ED 03:38 → CCU 03:40 → MS 05-12 15:30
PROVIDERS: ADMIT Internal Medicine
DX: R56.9 Unspecified convulsions (principal); E46 Unspecified protein-calorie malnutrition; E87.6 Hypokalemia; R13.19 Other dysphagia; K22.70 Barrett's esophagus without dysplasia; K21.9 Gastro-esophageal reflux disease without esophagitis; K44.9 Diaphragmatic hernia without obstruction or gangrene; R26.9 Unspecified abnormalities of gait and mobility; F13.21 Sedative, hypnotic or anxiolytic dependence, in remission; Z20.828 Contact with and (suspected) exposure to other viral communicable diseases; F41.9 Anxiety disorder, unspecified; M54.5 Low back pain; G89.29 Other chronic pain; F32.9 Major depressive disorder, single episode, unspecified; Z79.899 Other long term (current) drug therapy; Z68.24 Body mass index [BMI] 24.0-24.9, adult
CPT/HCPCS: 36415; 51702; 70450; 80048; 80053; 81001; 82607; 82746; 83735; 84100; 84207; 84439; 84443; 84484; 85025; 85610; 85730; 92526; 96105; 96366; 97110; 97112; 97116; 97163; 97166; 97535; 99285-25; C9113; C9803; G0378; G0480; J1650; J1953; J2060; J3480; J7120; J7121; U0002

== ENCOUNTER 2020-05-16 12:01 | Inpatient (IN) | payer OTHER ==
[~2020-05-16] VITALS: Ht 162.6 cm; Wt 69.4 kg
--- OUTSIDE RECORDS SUMMARY | ~2020-05-16 | XMS | Encounter Summary ---
Demographics + + + | Address | [address] | | | [place] [address] | + + + | Home Phone | | + + + | Preferred Language | Unknown | + + + | Marital Status | Single | + + + | Orthodoxy Affiliation | 1013 | + + + | Race | Unknown | + + + | Ethnic Group | Unknown | + + + Author + + + | Author | [facility] | | | and [place] | + + + | Organization | [facility] | | | and [place] | + + + | Address | Unknown | + + + | Phone | Unavailable | + + + Support + + +---------+ + | Name | Relationship | Address | Phone | + + +---------+ + | Jake Bardales | ECON | Unknown | | + + +---------+ + | Ioana Echols | ECON | Unknown | | + + +---------+ + | Zahira Quijano | ECON | Unknown | | + + +---------+ + Care Team Providers + +------+ + | Care Entertainment Director Name | Role | Phone | + +------+ + | No, Physician | PCP | Unavailable | + +------+ + Encounter Details +--------+ + + + + | Date | Type | Department | Care Team | Description | +--------+ + + + + | 04/27/ | Hospital | [facility] | Rodriguez Pena, | | | 2017 | Encounter | MED CTR XRAY [address] | | | | | [place] | [place] | | | | | [place] [id number] | [address] | | | | | [phone] | | | | | | | Rad, [facility] | | +--------+ + + + + Social History + +-------+ +--------+------+ | Tobacco Use | Types | Packs/Day | Years | Date | | | | | Used | | + +-------+ +--------+------+ | Former Smoker | | | | | + +-------+ +--------+------+ + +---+---+---+ | Smokeless Tobacco: | | | | | Never Used | | | | + +---+---+---+ + + | Comments: Light former smoker age of 30s, currently passive smoke exposure | + + + + +---------+ + | Alcohol Use | Drinks/Week | oz/Week | Comments | + + +---------+ + | Not Asked | 0 Standard drinks | 0.0 | | | | or equivalent | | | + + +---------+ + + + + | Sex Assigned at | Date Recorded | | | | + + + | Not on file | | + + + documented as of this encounter Medications at Time of Discharge + + + +---------+ + + | Medication | Sig | Dispensed | Refills | Start | End Date | | | | | | Date | | + + + +---------+ + + | Black Cohosh 200 | Take 200 mg by mouth | | 0 | 08/04/20 | | | MG CAPS | Daily. | | | 12 | 7 | + + + +---------+ + + | Cholecalciferol | CAPS, take 5000 | | 0 | 01/27/20 | | | (VITAMIN D3 PO) | units daily by mouth | | | 11 | 7 | + + + +---------+ + + | ibuprofen (ADVIL, | Take 200 mg by mouth | | 0 | | | | MOTRIN) 200 mg | every 6 hours as | | | | 7 | | tablet | needed for Pain. | | | | | + + + +---------+ + + | Multiple | Take 1 tablet by | | 0 | 08/04/20 | | | Vitamins-Minerals | mouth daily | | | 12 | 7 | | (ABC PLUS) TABS | | | | | | + + + +---------+ + + | Specialty Vitamins | Take 2 tablet by | | 0 | 08/04/20 | | | Products ([facility] | mouth daily | | | 12 | 7 | | MENOPAUSE SUPPORT) | | | | | | | TABS | | | | | | + + + +---------+ + + documented as of this encounter Plan of Treatment Not on filedocumented as of this encounter Procedures + +--------+ + + + | Procedure Name | Priori | Date/Time | Associated Diagnosis | Comments | | | ty | | | | + +--------+ + + + | FL ESOPHAGRAM | Routin | 04/27/2017 | Dysphagia, | Results for this | | COMPLETE | e | 10:25 AM | unspecified type | procedure are in the | | | | PDT | | results section. | + +--------+ + + + documented in this encounter Visit Diagnoses Not on filedocumented in this encounter Administered Medications + +--------+ +--------+------+------+ | Medication Order | MAR | Action | Dose | Rate | Site | | | Action | Date | | | | + +--------+ +--------+------+------+ | barium (E-Z-HD) 98% contrast | Given | 04/27/20 | 60 mLs | | | | suspension 60 mL 60 mL, Oral, | | 17 10:45 | | | | | ONCE, 04/27/17 at 1045, For 1 | | AM PDT | | | | | dose, Esvin haney., Radiology | | | | | | + +--------+ +--------+------+------+ +---+---+ | | | +---+---+ documented in this encounter"
--- OUTSIDE RECORDS SUMMARY | ~2020-05-16 | XMS | Encounter Summary ---
Demographics + + + | Address | [address] | | | [place] [address] | + + + | Home Phone | | + + + | Preferred Language | Unknown | + + + | Marital Status | Single | + + + | Yarsanism Affiliation | 1013 | + + + | Race | Unknown | + + + | Ethnic Group | Unknown | + + + Author + + + | Author | [facility] | | | and [place] | + + + | Organization | [facility] | | | and [...] Team Providers + +------+ + | Care News Library Director Name | Role | Phone | + +------+ + | Katie Canchola MD | PCP | | + +------+ + Encounter Details +--------+ + + + + | Date | Type | Department | Care Team | Description | +--------+ + + + + | 05/06/ | Hospital | [facility] | | | | 2010 | Encounter | MED CTR LABORATORY | | | | | | [address] | | | | | | [place] | | | | | | [address] | | | | | | [phone] | | | +--------+ + + + + Social History + +-------+ +--------+------+ | Tobacco Use | Types | Packs/Day | Years | Date | | | | | Used | | + +-------+ +--------+------+ | Never Assessed | | | | | + +-------+ +--------+------+ + + + | Sex Assigned at [...] + + + +---------+ + + | ALPRAZolam (XANAX) | one at bedtime and | | 0 | 09/04/20 | | | 0.5 mg tablet | one up to twice a | | | 10 | 6 | | | day for extreem | | | | | | | anxiety | | | | | + + + +---------+ + + | Cholecalciferol | CAPS, take 5000 | | 0 | 01/27/20 | | | (VITAMIN D3 PO) | units daily by mouth | | | 11 | 7 | + + + +---------+ + + | citalopram | Take 40 mg by mouth | | 0 | 02/24/20 | | | (CELEXA) 40 mg | Daily. | | | 11 | 6 | | tablet | | | | | | + + + +---------+ + + | | | | 0 | 04/16/20 | | | levonorgestrel-ethin | | | | 11 | 6 | | yl estradiol | | | | | | | (SEASONIQUE) | | | | | | | 0.15-0.03 &0.01 MG | | | | | | | TABS | | | | | | + + + +---------+ + + | | Take by mouth | | 0 | 04/16/20 | | | norgestimate-ethinyl | Daily. | | | 11 | 6 | | estradiol (SPRINTEC | | | | | | | 28) 0.25-35 MG-MCG | | | | | | | per tablet | | | | | | + + + +---------+ + + documented as of this encounter Plan of Treatment Not on filedocumented as of this encounter Procedures + +--------+ + + + | Procedure Name | Priori | Date/Time | Associated Diagnosis | Comments | | | ty | | | | + +--------+ + + + | CBC WITH | Routin | 05/06/2011 | | Results for this | | DIFFERENTIAL | e | 12:25 PM | | procedure are in the | | | | PDT | | results section. | + +--------+ + + + | IRON, TOTAL | Routin | 05/06/2011 | | Results for this | | | e | 12:17 PM | | procedure are in the | | | | PDT | | results section. | + +--------+ + + + | FERRITIN | Routin | 05/06/2011 | | Results for this | | | e | 12:17 PM | | procedure are in the | | | | PDT | | results section. | + +--------+ + + + documented in this encounter Results CBC with Differential (05/06/2011 12:25 PM PDT) + + + + + + | Component | Value | Ref Range | Performed | Pathologist | | | | | At | Signature | + + + + + + | WBC | 5.6 | 4.0 - 11.0 K/uL | [facility] | | | | | | [facility] | | | | | | [facility] | | | | | | [facility] - | | | | | | LABORATORY | | + + + + + + | RBC | 3.80 | 3.70 - 5.20 | [facility] | | | | | M/uL | [facility] | | | | | | [facility] | | | | | | [facility] - | | | | | | LABORATORY | | + + + + + + | Hemoglobin | 11.4 (L) | 11.5 - 16.0 | [facility] | | | | | gm/dL | [facility] | | | | | [facility] | | | | | | [facility] - | | | | | | LABORATORY | | + + + + + + | Hematocrit | 33.9 (L) | 34.0 - 47.0 % | [facility] | | | | | | [facility] | | | | | | [facility] | | | | | | [facility] - | | | | | | LABORATORY | | + + + + + + | MCV | 89.3 | 83.0 - 101.0 fL | [facility] | | | | | | [facility] | | | | | | [facility] | | | | | | [facility] - | | | | | | LABORATORY | | + + + + + + | MCH | 29.9 | 28.0 - 35.0 pg | [facility] | | | | | | [facility] | | | | | | [facility] | | | | | | [facility] - | | | | | | LABORATORY | | + + + + + + | MCHC | 33.5 | 32.0 - 36.0 | [facility] | | | | | g/dL | [facility] | | | | | | [facility] | | | | | | C[facility] - | | | | | | LABORATORY | | + + + + + + | RDW-CV | 13.2 | <15.0 % | [facility] | | | | | | [facility] | | | | | | [facility] | | | | | | [facility] - | | | | | | LABORATORY | | + + + + + + | Platelet | 188 | 140 - 440 K/uL | [facility] | | | Count | | | [facility] | | | | | | [facility] | | | | | | C[facility] - | | | | | | LABORATORY | | + + + + + + | % | 72.4 | 45 - 75 % | [facility] | | | Neutrophils | | | [facility] | | | | | | [facility] | | | | | | CENTER - | | | | | | LABORATORY | | + + + + + + | % | 21.2 | 20 - 45 % | [facility] | | | Lymphocytes | | | [facility] | | | | | | MED[facility] | | | | | | CENTER - | | | | | | LABORATORY | | + + + + + + | % Monocytes | 5.1 | 4 - 12 % | [facility] | | | | | | [facility] | | | | | | [facility] | | | | | | C[facility] - | | | | | | LABORATORY | | + + + + + + | % | 1.0 | 0 - 5 % | [facility] | | | Eosinophils | | | [facility] | | | | | | [facility] | | | | | | CENTER - | | | | | | LABORATORY | | + + + + + + | % Basophils | 0.3 | 0 - 1 % | [facility] | | | | | | [facility] | | | | | | [facility] | | | | | | C[facility] - | | | | | | LABORATORY | | + + + + + + | Absolute | 4.1 | 1.5 - 6.6 K/uL | [facility] | | | Neutrophils | | | [facility] | | | | | | [facility] | | | | | | C[facility] - | | | | | | LABORATORY | | + + + + + + | Absolute | 1.2 | 0.6 - 3.2 K/uL | [facility] | | | Lymphocytes | | | [facility] | | | | | | [facility] | | | | | | C[facility] - | | | | | | LABORATORY | | + + + + + + | Absolute | 0.3 | 0.0 - 1.0 K/uL | [facility] | | | Monocytes | | | [facility] | | | | | | [facility] | | | | | | C[facility] - | | | | | | LABORATORY | | + + + + + + | Absolute | 0.1 | 0.0 - 0.4 K/uL | [facility] | | | Eosinophils | | | [facility] | | | | | | [facility] | | | | | | CENTER - | | | | | | LABORATORY | | + + + + + + | Absolute | 0.0 | 0.0 - 0.1 K/uL | [facility] | | | Basophils | | | [facility] | | | | | | [facility]ICAL | | | | | | CENTER - | | | | | | LABORATORY | | + + + + + + + + | Specimen | + + | | + + + + + + + | Performing | Address | City/State/Zipcode | Phone Number | | Organization | | | | + + + + + | [facility] | [address] | [place] | [phone] | | [facility] | | [address] | | | - LABORATORY | | | | + + + + + | [facility] | [address] | [place] | | | [facility] | | [address], [facility] | | | - LABORATORY | | | | + + + + + Iron, Total (05/06/2011 12:17 PM PDT) + +-------+ + + + | Component | Value | Ref Range | Performed | Pathologist | | | | | At | Signature | + +-------+ + + + | Iron | 139 | ug/dL | [facility] | | | | | | [facility] | | | | | | MED[facility] | | | | | | CENTER - | | | | | | LABORATORY | | + +-------+ + + + + + | Specimen | + + | | + + + + + + + | Performing | Address | City/State/Zipcode | Phone Number | | Organization | | | | + + + + + | [facility] | [address] | [place], [place] | [phone] | | [facility] | | [address] | | | - LABORATORY | | | | + + + + + | [facility] | [address] | [place], [place] | | | [facility] | | [id number] [place] [address] | | | - LABORATORY | | | | + + + + + Ferritin (05/06/2011 12:17 PM PDT) + + + + + + | Component | Value | Ref Range | Performed | Pathologist | | | | | At | Signature | + + + + + + | FERRITIN | 15.2Comment: Testing | 11.0 - 306.9 | [facility] | | | | performed on the [facility] | ng/mL | [facility] | | | | [facility] | | MEDICAL | | | | Analyzer. | | CENTER - | | | | | | LABORATORY | | + + + + + + + + | Specimen | + + | | + + + + + + + | Performing | Address | City/State/Zipcode | Phone Number | | Organization | | | | + + + + + | [facility] | [address] | [place] | [phone] | | [facility] | | [address] | | | - LABORATORY | | | | + + + + + | [facility] | [address] | [place] | | | [facility] | | [address] | | | - LABORATORY | | | | + + + + + documented in this encounter Visit Diagnoses Not on filedocumented in this encounter"
--- OUTSIDE RECORDS SUMMARY | ~2020-05-16 | XMS | Encounter Summary ---
Demographics + + + | Address | [address] | | | [place] [address] | + + + | Home Phone | | + + + | Preferred Language | Unknown | + + + | Marital Status | Single | + + + | Denominational Affiliation | 1013 | + + + | Race | Unknown | + + + | Ethnic Group | Unknown | + + + Author + + + | Author | [facility] | | | and [place] | + + + | Organization | [facility] | | | [...] Team Providers + +------+ + | Care Computer Lab Assistant Name | Role | Phone | + +------+ + | James Farmer MD | PCP | | + +------+ + Reason for Visit + +--------+ + | Reason | Onset | Comments | | | Date | | + +--------+ + | Appointment | 04/06/ | | | | 2018 | | + +--------+ + Encounter Details +--------+ + + + + | Date | Type | Department | Care Team | Description | +--------+ + + + + | 04/06/ | Telephone | [facility] | James Farmer, | Appointment | | 2018 | | [facility] [address] | [address] [facility] | | | | | [place], | [place] | | | | | [place] [address] | [id number] | | | | | [phone] | | | +--------+ + + + + Social History + + + +--------+ + | Tobacco Use | Types | Packs/Day | Years | Date | | | | | Used | | + + + +--------+ + | Former Smoker | Cigarettes | | | Quit: 2000 | + + + +--------+ + + +---+---+---+ | Smokeless Tobacco: | | | | | Never Used | | | | + +---+---+---+ + + | Comments: smoked socially when she drank | + + + + +---------+ + | Alcohol Use | Drinks/Week | oz/Week | Comments | + + +---------+ + | No | 0 Standard drinks | 0.0 | | | | or equivalent | | | + + +---------+ + + + + | Sex Assigned at | Date Recorded | | | | + + + | Not on file | | + + + documented as of this encounter Miscellaneous Notes Telephone Encounter - Ashley Grider, Geographic Information Systems Director - 04/06/2019 2:44 PM PDTnotedElectr onically signed by Ashley Grider Geographic Information Systems Director at 04/06/2019 2:44 PM PDTTelephone Steven reardon - Anh Walsh - 04/06/2019 2:42 PM PDTCalled and spoke to patient, she took @ 245pm. elephone Encounter - Ashley Grider Geographic Information Systems Director - 04/06/2019 2:23 PM PDTPlease call and offer appt on 04/20 at 2:45pm or 04/21 at 1:45pm for follow up on endoscopy per patient request, [facility] had an issue scheduling. Electronically signed by Ashley Grider Geographic Information Systems Director a t 04/06/2019 2:25 PM PDTTelephone Encounter - Salima Lala - 04/06/2019 2:18 PM PDTPatie nt called stating she needs a follow up appointment for her endoscopy. Patient was last seen 01/03/18 please advise. docu mented in this encounter Plan of Treatment Not on filedocumented as of this encounter Visit Diagnoses Not on filedocumented in this encounter"
--- OUTSIDE RECORDS SUMMARY | ~2020-05-16 | XMS | Encounter Summary ---
Demographics + + + | Address | [address] | | | [place] [address] | + + + | Home Phone | | + + + | Preferred Language | Unknown | + + + | Marital Status | Single | + + + | Yarsani Affiliation | 1013 | + + + | Race | Unknown | + + + | Ethnic Group | Unknown | + + + Author + + + | Author | [facility] | | | and [place] | + + + | Organization | [facility] | | | and [...] Team Providers + +------+ + | Care Respite Care Provider Name | Role | Phone | + +------+ + PCP | Unavailable | + +------+ + Encounter Details +--------+ + + + + | Date | Type | Department | Care Team | Description | +--------+ + + + + | 04/11/ | Hospital | [facility] | | | | 1998 | Encounter | MED CTR GENERIC OP | | | | | | CONV DEPT [address] | | | | | | [place], | | | | | | [place] [address] | | | | | | [phone] | | | +--------+ + + + [...]
--- OUTSIDE RECORDS SUMMARY | ~2020-05-16 | XMS | Encounter Summary ---
Demographics + + + | Address | [address] | | | [place] [address] | + + + | Home Phone | | + + + | Preferred Language | Unknown | + + + | Marital Status | Single | + + + | Congregational Affiliation | 1013 | + + + | Race | Unknown | + + + | Ethnic Group | Unknown | + + + Author + + + | Author | [facility] | | | and [place] | + + + | Organization | [facility] | | | and [place] | + + + | Address | Unknown | + + + | Phone | Unavailable | + + + Support + + +---------+ + | Name | Relationship | Address | Phone | + + +---------+ + | Jake Bardaels | ECON | Unknown | | + + +---------+ + | Ioana Echols | ECON | Unknown | | + + +---------+ + | Zahira Quijano | ECON | Unknown | | + + +---------+ + Care Team Providers + +------+ + | Care Doctor Of Radiology Name | Role | Phone | + +------+ + | James Farmer MD | PCP | | + +------+ + Reason for Visit Auth/Cert +--------+--------+ + + + + | Status | Reason | Specialty | Diagnoses / | Referred By | Referred To | | | | | Procedures | Contact | Contact | +--------+--------+ + + + + | | | | Diagnoses | | Ez, | | | | | | | MD Loi | | | | | Pharyngoesop | | [address] | | | | | hageal | | [place], | | | | | dysphagia | | [place] [address] | | | | | Hiatal | | Phone: | | | | | hernia with | | [phone] | | | | | GERD Reflux | | Fax: | | | | | esophagitis | | [phone] | | | | | Obesity | | | | | | | (BMI | | | | | | | 30-39.9) | | | | | | | Seizure | | | | | | | (HCC) | | | | | | | Depression | | | | | | | with anxiety | | | | | | | Procedures | | | | | | | TN | | | | | | | ESOPHAGOGAST | | | | | | | RODUODENOSCO | | | | | | | PY TRANSORAL | | | | | | | DIAGNOSTIC | | | | | | | TN EGD | | | | | | | TRANSORAL | | | | | | | BIOPSY | | | | | | | SINGLE/MULTI | | | | | | | PLE TN | | | | | | | ANESTHESIA | | | | | | | UPPER GI | | | | | | | ENDOSCOPIC | | | | | | | PX NOS EGD | | | +--------+--------+ + + + + Encounter Details +--------+ + + + + | Date | Type | Department | Care Team | Description | +--------+ + + + + | 04/05/ | Anesthesia | [facility] | [place], | | | 2019 | Event | MED CTR MP INTRA OP | Butch Wiseman MD | | | | | [address] | [address] | | | | | [place] | [place] | | | | | [address] | [id number] | | | | | [phone] | | | +--------+ + + + + Anesthesia Record + + + + + | Procedure Name | Responsible | Anesthesia Start | Anesthesia Stop Time | | | Anesthesiologist | Time | | + + + + + | EGD (N/A Mouth) | Butch Wiseman | 04/05/19 1448 | 04/05/19 1509 | | | MD Monique | | | + + + + + +----+---+ + + | Da | T | Event | Comment | | te | i | | | | | m | | | | | e | | | +----+---+ + + | 05 | 1 | | | | /1 | 4 | | | | 5/ | 4 | | | | 20 | 4 | | | | 19 | | | | +----+---+ + + | | 1 | An Checkout | Pre-use anesthesia machine/equipment checkout. | | | 4 | | | | | 4 | | | | | 7 | | | +----+---+ + + | | 1 | An Start | Reassessment prior to anesthesia induction/procedure. | | | 4 | | | | | 4 | | | | | 8 | | | +----+---+ + + | | 1 | AN | Per surgeon request | | | 4 | Antibiotic | | | | 5 | declined | | | | 0 | | | +----+---+ + + | | 1 | Pre-Procedu | | | | 4 | ral Timeout | | | | 5 | Completed | | | | 1 | | | +----+---+ + + | | 1 | First | | | | 4 | Inc/Proc St | | | | 5 | | | | | 3 | | | +----+---+ + + | | 1 | An | | | | 4 | Induction | | | | 5 | | | | | 5 | | | +----+---+ + + | | 1 | Breathing | | | | 4 | Spontaneous | | | | 5 | ly | | | | 5 | | | +----+---+ + + | | 1 | an christiano now | Suctioned with jaw thrust after scope removed. | | | 5 | | | | | 0 | | | | | 0 | | | +----+---+ + + | | 1 | an stop | | | | 5 | data | | | | 0 | | | | | 6 | | | +----+---+ + + | | 1 | An Stop | Patient handed off to recovery nurse. | | | 0 | | | | | 9 | | | +----+---+ + + +------+ | Meds | +------+ + + + | Name | Total | + + + | lidocaine 2% | 60 mg | + + + | propofol | 90 mg | + + + | propofol | 162.8 mg | + + + | glycopyrrolate (AL) | 0.2 mg | | injection (5 mL vial) | | + + + | lactated ringers (LR) infusion | 300 mL | + + + + + | Name | + + | O2 Flow Rate (L/Min) | + + + + | No blood administrations on file. | + + +--------+ + + + | Type | Details | Placement | Removal | +--------+ + + + | Periph | 04/05/19; 1419; Left; | 04/05/19 1419 by | 04/05/19 1530 by | | eral | Antecubital; [id number] | Zahira Cast RN | Glenny Jensen RN | | IV | catheter system; 20 gauge; | | | | | distraction, intradermal | | | | | injection; no longer indicated, | | | | | removed per policy/procedure, | | | | | catheter/device intact; short | | | | | term use; 04/05/19; 1530 | | | +--------+ + + + documented in this encounter Social History + + + +--------+ + | Tobacco Use | Types | Packs/Day | Years | Date | | | | | Used | | + + + +--------+ + | Former Smoker | Cigarettes | | | Quit: 1999 | + + + +--------+ + + [...] + + documented as of this encounter OR Notes Anesthesia Postprocedure Evaluation - Butch Amaya MD - 04/05/2019 5:01 PM PDTF ormatting of this note might be different from the original. ANESTHESIA POSTANESTHESIA EVALUATION Cherrie Quijano 58 y.o. female 1960 [id number] Procedure(s) EGD (N/A Mouth) Cooperates? Yes Mental Status Performs simple tasks. Respiratory Satisfactory - Airway patent (self maintained). Cardiovascular Satisfactory - Blood pressure and heart rate acceptable Temperature Satisfactory Pain Satisfactory N/V Control Satisfactory Hydration Satisfactory - No signs of dehydration Complications None apparent Vitals Value Taken Time Temp 36.5 C (97.7 F) 04/05/2019 15:08 Pulse 62 04/05/2019 15:30 Resp 16 04/05/2019 15:30 BP 113/75 04/05/2019 15:30 Arterial Line BP Arterial Line BP 2 SpO2 98 % 04/05/2019 15:30 Electronically signed by Butch Amaya MD 04/06/2019 5:48 [facility] nesthesia Preprocedure Evaluation - Butch Amaya MD - 04/04/2019 8:12 PM PDT ANESTHESIA PREANESTHESIA EVALUATION Cherrie Quijano 58 y.o. female 1960 [id number] Procedure(s): EGD (N/A Mouth) Medical,anesthesia, drug, allergy histories reviewed, NPO status verified. ECG reviewed. Labs reviewed. . Review of Systems / Med History Anesthesia History (+) PONV(-) malignant hyperthermia . Cardiovascular Negative except where noted below. (-) dysrhythmias: , Exercise tolerance >4 METS . Pulmonary (+) tobacco use. Gastrointestinal/Hepatic Negative except where noted below. (+) hiatal hernia. Renal Negative except where noted below. Endocrine (+) obesity: BMI (30-39) (-) Diabetes. Hematology/Other (-) coagulopathy. Neuromuscular (-) TIA, CVA. (+) seizures: Physical Exam Airway MP II, TM >3 FB, Mouth opening >2 FB. Neck: full ROM, extends >30 degrees. Jaw protrus ion normal. Dental ; (+) dentures-upper. CV Rhythm regular. (-) murmur. Pulm Clear to auscultation bilaterally. Anesthesia Plan ASA 3 (seizures) Type: TIVA. Induction: Intravenous. Potential problems: None anticipated. Monitors: Standard ASA monitors. Consent statement:Anesthetic plan, alternatives, risks and benefits discussed with patient. Risks discussed included (but were not limited to): respiratory events, perioperative CV ev ents, heart problems, post-op intubation, nausea,. Consenting person understands and agrees to proceed . PARQ. PARQ for TIVA, possible need for airway intervention, and expressly discussed risk of poss ible aspiration and hypoxemia.. documented in this encounter Plan of Treatment Not on filedocumented as of this encounter Visit Diagnoses Not on filedocumented in this encounter Administered Medications + +--------+ +--------+------+------+ | Medication Order | MAR | Action | Dose | Rate | Site | | | Action | Date | | | | + +--------+ +--------+------+------+ | glycopyrrolate (ROBINUL) | Given | 04/05/20 | 0.2 mg | | | | injection Intravenous, PRN, | | 19 2:53 | | | | | Starting 04/05/19 at 1453, | | PM PDT | | | | | Anesthesia Intra-op | | | | | | + +--------+ +--------+------+------+ +---+---+ | | | +---+---+ + + + +---+---+---+ | lactated ringers (LR) infusion | Continue | 04/05/20 | | | | | at 100 mL/hr, Intravenous, | d by | 19 2:51 | | | | | CONTINUOUS, Starting 04/05/19 | Anesthes | PM PDT | | | | | at 1415, Pre-op | ia | | | | | + + + +---+---+---+ +---------+ +--------+-------+---+ | New Bag | 04/05/20 | 1,000 | 100 | | | | 19 2:20 | mLs | mL/hr | | | | PM PDT | | | | +---------+ +--------+-------+---+ +---+---+ | | | +---+---+ + +-------+ +-------+---+---+ | lidocaine (PF) 2% injection | Given | 04/05/20 | 60 mg | | | | Intravenous, PRN, Starting Wed | | 19 2:53 | | | | | 04/05/19 at 1453, Anesthesia | | PM PDT | | | | | Intra-op | | | | | | + +-------+ +-------+---+---+ +---+---+ | | | +---+---+ + +-------+ +-------+---+---+ | propofol (DIPRIVAN) injection | Given | 04/05/20 | 90 mg | | | | Intravenous, PRN, Starting Wed | | 19 2:53 | | | | | 04/05/19 at 1453, Anesthesia | | PM PDT | | | | | Intra-op | | | | | | + +-------+ +-------+---+---+ +---+---+ | | | +---+---+ + + + + +-------+---+ | propofol (DIPRIVAN) injection | Rate/Dos | 04/05/20 | 150 | 79.2 | | | Intravenous, CONTINUOUS PRN, | e Change | 19 2:57 | mcg/kg/m | mL/hr | | | Starting 04/05/19 at 1453, | | PM PDT | in | | | | Anesthesia Intra-op | | | | | | + + + + +-------+---+ +---------+ + +--------+---+ | New Bag | 04/05/20 | 200 | 105.6 | | | | 19 2:53 | mcg/kg/m | mL/hr | | | | PM PDT | in | | | +---------+ + +--------+---+ +---+---+ | | | +---+---+ documented in this encounter"
--- OUTSIDE RECORDS SUMMARY | ~2020-05-16 | XMS | Encounter Summary ---
Demographics + + + | Address | [address] | | | [place] [address] | + + + | Home Phone | | + + + | Preferred Language | Unknown | + + + | Marital Status | Single | + + + | Hinduism Affiliation | 1013 | + + + [...] Team Providers + +------+ + | Care Commercial Litigation Paralegal Name | Role | Phone | + +------+ + PCP | Unavailable | + +------+ + Encounter Details +--------+ + + + + | Date | Type | Department | Care Team | Description | +--------+ + + + + | 05/27/ | Hospital | [facility] | | | | 1997 | Encounter | MED CTR GENERIC OP | | | | | | CONV DEPT [address] | | | | | | [place], | | | | | | [place] [address] | | | | | | [phone] | | | +--------+ + + + [...]
--- OUTSIDE RECORDS SUMMARY | ~2020-05-16 | XMS | Encounter Summary ---
Demographics + + + | Address | [address] | | | [place] [address] | + + + | Home Phone | | + + + | Preferred Language | Unknown | + + + | Marital Status | Single | + + + | Christianity Affiliation | 1013 | + + + | Race | Unknown | + + + | Ethnic Group | Unknown | + + + Author + + + | Author | [facility] | | | and [place] | + + + | Organization | [facility] | | | [...] Team Providers + +------+ + | Care Scaleman Name | Role | Phone | + +------+ + | James Farmer MD | PCP | | + +------+ + Reason for Visit + +--------+ + | Reason | Onset | Comments | | | Date | | + +--------+ + | Pre-Procedure | 03/21/ | information/testing COVID/insurance | | | 2019 | | + +--------+ + Encounter Details +--------+ + + + + | Date | Type | Department | Care Team | Description | +--------+ + + + + | 03/21/ | Telephone | [facility] | Nishant Arceo | Pre-Procedure | | 2019 | | GASTROENTEROLOGY | MD [address] | (information/testing | | | | [address] [place] | [address] | COVID/insurance) | | | | [address] [place] [address] | [place], [place] [address] | | | | | [address] | [phone] | | | | | [phone] | | | +--------+ + + + + Social History + +-------+ +--------+------+ | Tobacco Use | Types | Packs/Day | Years | Date | | | | | Used | | + +-------+ +--------+------+ | Never Smoker | | | | | + +-------+ +--------+------+ + +---+---+---+ | Smokeless Tobacco: | | | | | Never Used | | | | + +---+---+---+ + + +---------+ + | Alcohol Use [...] documented as of this encounter Miscellaneous Notes Addendum Note - Berna Ramos RN - 03/21/2020 4:03 PM PDT Addended by: YAQUELIN RAMOS on: 03/21/2020 04:03 PM Modules accepted: Orders elephone Enco unter - Berna Ramos RN - 03/21/2020 3:56 PM PDTPatient picked up written rx for N ystatin/Lidocaine from clinic Call from [facility] pharmacy; they are not able to fill the Nystatin Lidocaine because it is considered a compounding medication; was recommended that we could write out 2 separate scri pts and patient could then mix them with a liquid benadryl - advised pharmacist this was uzair hicks ordered with First Mouth wash that was called in the other day and patient was picking up today; she verified this was correct but insurance was not covering it and was out of poc ket about $50 and not sure patient would be willing to pay for it. Advised I would run this by Dr. Arceo; she would be returning the written script for Nystatin and Lidocaine back to patient. elephon e Encounter - Yi Barrera - 03/21/2020 1:57 PM PDTPatient called in to let Berna know she is going to come in for the prescription because it cannot be called in since it is a mixture. elephone En counter - Berna Ramos RN - 03/21/2020 1:37 PM PDTRescheduled pt for EGD/prop w/uli tox (for dysphagia) with Dr. Arceo on WedApril 01, 2020 at 0900; Medications (hold PPI meds d ay of procedure), surg/med hx, and allergies were reviewed; gave instructions for EGD (light supper night before; clear liquids okay up to 4 hours prior to procedure just no red/purple , dairy/creamer or pulp; info mailed to pt; completed case request order, notes to MA. Patient advised she will need to have COVID testing 72 hrs prior to procedure; she will rep ort on 03/29 to Urgent care for this testing and will remain in self isolation prior to and af ter testing. docu mented in this encounter Plan of Treatment Not on filedocumented as of this encounter Visit Diagnoses Not on filedocumented in this encounter"
--- OUTSIDE RECORDS SUMMARY | ~2020-05-16 | XMS | Encounter Summary ---
Demographics + + + | Address | [address] | | | [place] [address] | + + + | Home Phone | | + + + | Preferred Language | Unknown | + + + | Marital Status | Single | + + + | Mandaeism Affiliation | 1013 | + + + | Race | Unknown | + + + | Ethnic Group | Unknown | + + + Author + + + | Author | [facility] | | | and [place] | + + + | Organization | [facility] | | | and [...] Team Providers + +------+ + | Care Cattle Brander Name | Role | Phone | + +------+ + | James Farmer MD | PCP | | + +------+ + Reason for Visit + + + | Reason | Comments | + + + | Initial Assessment | | + + + Evaluate & Treat (Routine) +--------+ + + + + + | Status | Reason | Specialty | Diagnoses / | Referred By | Referred To | | | | | Procedures | Contact | Contact | +--------+ + + + + + | Closed | Specialty | Physical | Diagnoses | [facility], | [facility] | | | Services | Therapy / | Reduced | aJmes Dennis MD | Fan | | | Required | Rehabilitatio | mobility | [address] | Therapy [address] | | | | n | Unsteady | [address] | [address] | | | | | gait | [place] | [place], | | | | | Procedures | [address] | [place] [address] | | | | | PT | Phone: | Phone: | | | | | | [phone] | [phone] | | | | | | Fax: | Fax: | | | | | | [phone] | [phone] | +--------+ + + + + + Encounter Details +--------+---------+ + + + | Date | Type | Department | Care Team | Description | +--------+---------+ + + + | 10/09/ | Office | [facility] | Ani Zepeda, | Unsteady gait | | 2019 | Visit | [facility] | PT [address] | (Primary Dx); | | | | [address] | [place] | Reduced mobility; | | | | [place] | [id number] | Impaired functional | | | | [address] | | mobility, balance, | | | | [phone] | Hoa Salazar, | gait, and endurance; | | | | | Aide | Weakness of both | | | | | | lower extremities | +--------+---------+ + + + Social History + + [...] + + documented as of this encounter Last Filed Vital Signs + +---------+ + + | Vital Sign | Reading | Time Taken | Comments | + +---------+ + + | Blood Pressure | 98/70 | 10/09/2019 11:24 AM | | | | | PST | | + +---------+ + + | Pulse | 71 | 10/09/2019 11:24 AM | | | | | PST | | + +---------+ + + | Temperature | - | - | | + +---------+ + + | Respiratory Rate | - | - | | + +---------+ + + | Oxygen Saturation | 98% | 10/09/2019 11:24 AM | | | | | PST | | + +---------+ + + | Inhaled Oxygen | - | - | | | Concentration | | | | + +---------+ + + | Weight | - | - | | + +---------+ + + | Height | - | - | | + +---------+ + + | Body Mass Index | - | - | | + +---------+ + + documented in this encounter Progress Notes KatelynAni matamoros, PT - 10/09/2019 11:30 AM PSTFormatting of this note might be different f rom the original. Physical Therapy Plan of Care Date: 10/17/2019 Patient Name: Cherrie Quijano Date of : 1960 Encounter Diagnoses Code Name Primary? R26.81 Unsteady gait Yes Z74.09 Reduced mobility Z74.09 Impaired functional mobility, balance, gait, and endurance R29.898 Weakness of both lower extremities Date of Onset: 09/15/2019 Start of Care Date: 10/09/2019 Requested # of Visits: 12 visits 2x/week for 6 weeks Certification From: 10/09/2019 Certification To: 11/20/2019 Clinical Impression: Patient presents to physical therapy with complaints of decreased leg strength, balance and difficulty with walking. Objective exam reveals impairments with bila teral lower extremity strength, impaired tandem stance balance, unable to balance on single leg and decreased ability to raise onto toes. These impairments are causing functional limit ations with walking, prolonged standing and stairs, which are restricting this patient's rizwan lity to participate in work duties and activities of daily living. Signs and symptoms are co nsistent with muscle strength and coordination deficits secondary to a fall in 2017. Comple xities contributing to frequency and duration of therapy: none. Goals: Patient Reported Outcome Goals Patient Reported Outcome Goals: PSFS, ABC Patient Specific Functional Scale Goal 1: Pt will demonstrate ability to tandem stance for 30 secs without loss of balance to improve confidence with stability Patient Specific Functional Scale Goal 1 Status: 0 Patient Specific Functional Scale Goal 1 Status Comment: pt has difficulty with balance wit h walking and is unable to maintain balance with tandem stance more than 5 secs Patient Specific Functional Scale Goal 2: Increase gait to 30 minutes over varied terrain w ithout limitations or pain. Patient Specific Functional Scale Goal 2 Status: 0 Patient Specific Functional Scale Goal 2 Status Comment: pt has decreased confidence in her ability to walk due to decreased strength. Patient Specific Functional Scale Goal 3: Independent home exercise program to facilitate i ndependent symptom management. Patient Specific Functional Scale Goal 3 Status: 0 Patient Specific Functional Scale Goal 3 Status Comment: initiated HEP Activity-Specific Balance Confidence Goal: Improve Activity Balance Confidence score by 15% points or greater indicating improved confidence with functional mobility. Activity-Specific Balance Confidence Status: 70% Treatment Plan/Interventions PT [id number] - Therapeutic [id number] - Neuromuscular [id number] - Gait T [id number] - Therapeutic [id number] - Manual [id number] - Self Care/Home Management PT Evaluation Electronically signed by: Ani Zepeda PT, 10/17/2019 11:17 AM Patient Name: Cherrie Quijano/: 1960/ elAni matamoros PT - 10/09/2019 11:30 AM PST [facility] [address] [facility] [place] [address] Physical Therapy Initial Assessment Date: 10/09/2019 Patient Information Patient Name: Cherrie Quijano Date of : 1960 Age: 58 y.o. History No problems updated. Mechanism of injury: Repetitive strain History of symptoms: Cherrie presents to physical therapy today with complaints of difficulty with walking due to a seizure and a fall in the bathroom in 2016. Since then she has been n oticing difficulty with walking and family members would tell her that she was limping. Pt r eports she is also struggling with her balance and relies on having to hang on a rail when w alking up and down stairs. 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 R26.81 Unsteady gait Yes Z74.09 Reduced mobility Z74.09 Impaired functional mobility, balance, gait, and endurance R29.898 Weakness of both lower extremities Date of Onset: 09/15/2019 Referring Provider: James Farmer MD No history on file. 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 09/06/2019 new diagnosis so repeat egd in 1 year 08/2020 Depression with anxiety Dysphagia 06/16/2017 GERD (gastroesophageal reflux disease) Seizure (HCC) Wears partial dentures upper Past Surgical History: Procedure Laterality Date UPPER GASTROINTESTINAL ENDOSCOPY N/A 11/30/2017 Procedure: EGD; Surgeon: Loi Hui MD; Location: [facility] UPPER GASTROINTESTINAL ENDOSCOPY N/A 04/05/2019 Procedure: EGD; Surgeon: Loi Hui MD; Location: [facility] UPPER GASTROINTESTINAL ENDOSCOPY N/A 09/06/2019 Procedure: EGD; Surgeon: Rodriguez Gómez MD; Location: [facility] VEIN SURGERY Family History Problem Relation Age of Onset Heart disease Paternal Grandmother Heart attack Paternal Grandmother High blood pressure Paternal Grandmother Diabetes Paternal Grandfather Depression Paternal Grandfather Developmental History No Known Allergies Prior Treatment: None within the last sixty days Rehab Precautions Fluoroscopy Exam from 09/22/2019 in [facility] Rehab Precautions Precautions None Abuse Assessment Do you feel safe in your current relationship or home?: Yes Pain Assessment: Pain Scale Used: NUMERIC Pain Rating Pre Assessment: 9 Location: back and Legs EVALUATION: Patient s Goals: to improve walking with more confidence; prolonged standing OBJECTIVE: Vitals: Vital Signs Pulse: 71 BP: 98/70 SpO2: 98 % MEWS Total Score: 1 Observation/Posture/Alignment: Standing posture: right shoulder elevated; right hip elevate d Gait: Decreased left arm swing, external rotation of left foot; excessive pronation of l eft foot, decreased heel contact Functional Movements: Sit<>Stand: Functional Sit<>Supine: NT Double leg squat: Thoracic shifts toward right side; decreased depth Single leg squat: L= NT R= NT Toe Walking: Unable due to balance Heel Walking: Unable due to strength and balance Balance: SLS R and L: Unable to hold more than 1 sec with UE support Romberg: EO 10 sec hold ; EC 3 secs Tandem R: 1-2 secs before LOB Tandem L: 5 secs before LOB ROM: LE: WFL Strength: LE: 4-/5 ankle DF and evertors bilaterally, 5/5 bilateral quadriceps and hamstrings, 4/5 bilateral hip iliospoas Standardized Tests: The Activities-specific Balance Confidence (ABC) Scale 1. walk around the house?: 90 2. walk up or down the stairs?: 90 3. bend over and orange picker machine operator a slipper from the front of a closet floor?: 90 4. reach for a small can off a shelf at eye level?: 90 5. stand on your tip toes and reach for something above your head?: 70 6. stand on a chair and reach for something?: 70 7. sweep the floor?: 80 8. walk outside the house to a car parked in the driveway?: 90 9. get into and out of a car?: 90 10. walk across a parking lot to the mall?: 70 11. walk up or down a ramp?: 20 12. walk in a crowded mall where people rapidly walk past you?: 80 13. are bumped into by people as you walk through the mall?: 90 14. step onto or off of an escalator while you are holding onto a railing?: 50 15. step onto or off an escalator while holding onto parcels such that you cannot hold onto the railing?: 30 16. walk outside on icy sidewalks?: 20 ABC Scale Score (Calculated): 70 Activity-Specific Balance Confidence Goal: Improve Activity Balance Confidence score by 15% points or greater indicating improved confidence with functional mobility. Activity-Specific Balance Confidence Status: 70% Assessment Patient presents to physical therapy with complaints of decreased leg strength, balance and difficulty with walking. Objective exam reveals impairments with bilateral lower extremity strength, impaired tandem stance balance, unable to balance on single leg and decreased abil ity to raise onto toes. These impairments are causing functional limitations with walking, p rolonged standing and stairs, which are restricting this patient's ability to participate in work duties and activities of daily living. Signs and symptoms are consistent with muscle s trength and coordination deficits secondary to a fall in 2017. Complexities contributing to frequency and duration of therapy: none. Rehabilitation potential: Patient demonstrates good potential to achieve established goals to address the documented impairments by participating in skilled physical therapy services. Goals: Patient Reported Outcome Goals Patient Reported Outcome Goals: PSFS, ABC Patient Specific Functional Scale Goal 1: Pt will demonstrate ability to tandem stance for 30 secs without loss of balance to improve confidence with stability Patient Specific Functional Scale Goal 1 Status: 0 Patient Specific Functional Scale Goal 1 Status Comment: pt has difficulty with balance wit h walking and is unable to maintain balance with tandem stance more than 5 secs Patient Specific Functional Scale Goal 2: Increase gait to 30 minutes over varied terrain w ithout limitations or pain. Patient Specific Functional Scale Goal 2 Status: 0 Patient Specific Functional Scale Goal 2 Status Comment: pt has decreased confidence in her ability to walk due to decreased strength. Patient Specific Functional Scale Goal 3: Independent home exercise program to facilitate i ndependent symptom management. Patient Specific Functional Scale Goal 3 Status: 0 Patient Specific Functional Scale Goal 3 Status Comment: initiated HEP Activity-Specific Balance Confidence Goal: Improve Activity Balance Confidence score by 15% points or greater indicating improved confidence with functional mobility. Activity-Specific Balance Confidence Status: 70% Plan Date of Onset: 09/15/2019 Start of Care Date: 10/09/2019 Requested # of Visits: 12 visits 2x/week for 6 weeks Certification From: 10/09/2019 Certification To: 11/20/2019 Treatment Plan/Interventions PT [id number] - Therapeutic [id number] - Neuromuscular Isioyocehyd41138 - Gait T hjuanhd28074 - Therapeutic Qexmnjrynt30353 - Manual Tafklry22176 - Self Care/Home Management PT Evaluation Patient and/or family has indicated understanding of treatment needs and actively participa yossi in the creation of this plan for care. Today's Treatment Start Time: 1130 Stop time: 1206 Duration: 36 minutes Timed Treatment Codes: 0 minutes # of PT Visits: 1 Objective: Education of rehab timeline, focus and expectations. Education of pain modulation with use of ice/MHP, positioning, pacing and movement strategies for self care. Access Code: [email or web address] URL: [email or web address] Date: 10/09/2019 Prepared by: Ani Zepeda Exercises Heel rises with counter support - 10 reps - 3 sets - 1x daily - 7x weekly Mini Squat with Counter Support - 10 reps - 3 sets - 1x daily - 7x weekly Standing Tandem Balance with Counter Support - 10 reps - 3 sets - 1x daily - 7x weekly Standing Single Leg Stance with Unilateral Counter Support - 10 reps - 3 sets - 1x daily - 7x weekly Next Visit: Progress LE strengthening exercises. Balance activities. Electronically signed by: Ani Zepeda PT, 10/17/2019 11:17 AM Patient Name: Cherrie Quijano/: 1960/ documented in this encounter Plan of Treatment Not on filedocumented as of this encounter Visit Diagnoses + + | Diagnosis | + + | Unsteady gait - Primary Abnormality of gait | + + | Reduced mobility Other ill-defined conditions | + + | Impaired functional mobility, balance, gait, and endurance | + + | Weakness of both lower extremities | + + documented in this encounter"
--- OUTSIDE RECORDS SUMMARY | ~2020-05-16 | XMS | Encounter Summary ---
Demographics + + + | Address | [address] | | | [place] [address] | + + + | Home Phone | | + + + | Preferred Language | Unknown | + + + | Marital Status | Single | + + + | Sabianist Affiliation | 1013 | + + + | Race | Unknown | + + + | Ethnic Group | Unknown | + + + Author + + + | Author | [facility] | | | and [place] | + + + | Organization | [facility] | | | [...] Team Providers + +------+ + | Care Utility Hand Name | Role | Phone | + +------+ + | No, Physician | PCP | Unavailable | + +------+ + Encounter Details +--------+ + + + + | Date | Type | Department | Care Team | Description | +--------+ + + + + | 06/16/ | Episode | [facility] | Zarina Ramon, | | | 2016 | Changes | GASTROENTEROLOGY | RN | | | | | [address] [place] | | | | | | [address] [place] | | | | | | [address] | | | | | | [phone] | | | +--------+ + + + + Social History + + + +--------+------+ | Tobacco Use | Types | Packs/Day | Years | Date | | | | | Used | | + + + +--------+------+ | Former Smoker | Cigarettes | | | | + + + +--------+------+ + +---+---+---+ | Smokeless Tobacco: | [...]
--- OUTSIDE RECORDS SUMMARY | ~2020-05-16 | XMS | Encounter Summary ---
Demographics + + + | Address | [address] | | | [place] [address] | + + + | Home Phone | | + + + | Preferred Language | Unknown | + + + | Marital Status | Single | + + + | Synagogue Affiliation | 1013 | + + + | Race | Unknown | + + + | Ethnic Group | Unknown | + + + Author + + + | Author | [facility] | | | and [place] | + + + | Organization | [facility] | | | [...] Team Providers + +------+ + | Care Mail Room Name | Role | Phone | + +------+ + | James Farmer MD | PCP | | + +------+ + Reason for Visit + +--------+ + | Reason | Onset | Comments | | | Date | | + +--------+ + | ED Follow-up | 04/12/ | after ED follow up-call back | | | 2019 | | + +--------+ + Encounter Details +--------+ + + + + | Date | Type | Department | Care Team | Description | +--------+ + + + + | 04/12/ | Telephone | [facility] | Miesha Galindo | ED Follow-up (after | | 2019 | | MED CTR CASE | | ED follow up-call | | | | MANAGEMENT [address] | | back) | | | | [place], | | | | | | [place] [address] | | | | | | [phone] | | | +--------+ + + + [...] this encounter Miscellaneous Notes Telephone Encounter - Miesha Galindo Sarah - 04/12/2020 1:17 PM PDTFormatting of this note mi ght be different from the original. [facility] ED follow up call Date of visit: 04/11/2020 Patient complaints: allergic reaction; anxiety; hallucinations Diagnosis: anxiety Patient returned call. How are you feeling since being home: states she threw up her dinner. States the ER doctor gave her meds to help her sleep. States she held a smoothie down. States so far so good. Has n't thrown up today. She has the following depression symptoms: depressed mood Symptoms are: are improving Sleep Disturbance: Yes states since the procedure. She has to sleep at an incline. States s he feels like she can't breath or swallow at times. Decreased interest or pleasure in activities you normally would enjoy: No Patient denies: NO Suicidal thoughts and homicidal thoughts Are you currently in counseling: no (If seen by the Crisis Response Team) Are you following your safety plan set up by the luma is worker? no If does not have a follow up arranged, can we make an appointment with Faye Sanchez? Any medications ordered this visit: yes Have you started the ordered medication: yes If not why: n/a Any questions on the medication: n/a Has this patient been seen in the ED 5 or more times in the last 6 months: no Need case management to prevent more ED visits: no Follow up needed: n/a Future Appts: Future Appointments Date Time Provider Department Center 04/19/2020 3:15 PM James Farmer MD [facility] Electronically signed by: Miesha Galindo 04/12/2020 1:30 PM documented in this enco unter Plan of Treatment Not on filedocumented as of this encounter Visit Diagnoses Not on filedocumented in this encounter"
--- OUTSIDE RECORDS SUMMARY | ~2020-05-16 | XMS | Encounter Summary ---
Demographics + + + | Address | [address] | | | [place] [address] | + + + | Home Phone | | + + + | Preferred Language | Unknown | + + + | Marital Status | Single | + + + | Evangelical Affiliation | 1013 | + + + | Race | Unknown | + + + | Ethnic Group | Unknown | + + + Author + + + | Author | [facility] | | | and [place] | + + + | Organization | [facility] | | | and [...] Team Providers + +------+ + | Care Healthcare Representative Name | Role | Phone | + +------+ + | No, Physician | PCP | Unavailable | + +------+ + Encounter Details +--------+ + + + + | Date | Type | Department | Care Team | Description | +--------+ + + + + | 06/16/ | Orders Only | [facility] | Loi Hui MD | Special screening | | 2017 | | GASTROENTEROLOGY | [address] | for malignant | | | | [address] [facility] | [place], [place] | neoplasms, colon | | | | [address] [place], [place] | [address] | (Primary Dx); | | | | [address] | [phone] | Gastroesophageal | | | | [phone] | | reflux disease, | | | | | | esophagitis presence | | | | | | not specified; | | | | | | Dysphagia, | | | | | | unspecified type; | | | | | | Benzodiazepine | | | | | | dependence, | | | | | | continuous (HCC) | +--------+ + + + + Social [...] + + documented as of this encounter Progress Notes Zarina Ramon RN - 06/16/2017 11:59 AM PDTScheduled for egd/colon with prop on 07/21 [address] Hui; Prilosec 20mg BID #180 with [address] Hui request, pat ient is to take them 30 minutes before breakfast and dinner; advised soft foods and liquid m eal supplements such as; Boost, Ensure, and [place] instant breakfast due to dysphagia and per Dr. Hui request. Tdocumented in this encounter Plan of Treatment Not on filedocumented as of this encounter Visit Diagnoses + + | Diagnosis | + + | Special screening for malignant neoplasms, colon - Primary | + + | Gastroesophageal reflux disease, esophagitis presence not specified | + + | Dysphagia, unspecified type | + + | Benzodiazepine dependence, continuous (HCC) Sedative, hypnotic or anxiolytic | | dependence, continuous | + + documented in this encounter"
--- OUTSIDE RECORDS SUMMARY | ~2020-05-16 | XMS | Encounter Summary ---
Demographics + + + | Address | [address] | | | [place] [address] | + + + | Home Phone | | + + + | Preferred Language | Unknown | + + + | Marital Status | Single | + + + | Oriental Orthodox Affiliation | 1013 | + + + [...] Team Providers + +------+ + | Care Corporate Physical Security Supervisor Name | Role | Phone | + +------+ + | James Farmer MD | PCP | | + +------+ + Reason for Visit + +--------+ + | Reason | Onset | Comments | | | Date | | + +--------+ + | Medication Question | 08/29/ | | | | 2019 | | + +--------+ + Encounter Details +--------+ + + + + | Date | Type | Department | Care Team | Description | +--------+ + + + + | 08/29/ | Telephone | [facility] | James Farmer, | Medication Question | | 2018 | | [facility] | [address] [place] [address] | | | | | [address] | [place] | | | | | [place] | [id number] | | | | | [address] | | | | | | [phone] | | | +--------+ + + + [...] this encounter Miscellaneous Notes Telephone Encounter - Keesha An RN - 08/30/2019 12:25 PM PDTSpoke with patient and s he is to be taking Protonix. She will stop taking the Prilosec. She will make an appointment to see Dr. Farmer soon if symptoms of acid reflux persist.El ectronically signed by Keesha An RN at 08/30/2019 12:27 PM PDTTelephone Encounter - Isamar Florez - 08/30/2019 10:58 AM PDTPatient called wanting to speak with the nurse as she is having issues with reflux even just drinking water and is not sure what she is suppos ed to be taking. Please call patient to advise. elephone Encounter - Maci Grider - 08/29/2019 3:01 PM PDTpat ient would like to talk to a nurse. Patient has question on medications Pantoprazole 40 mg a nd omeprazole 40 mg she is not sure which medication to take. Please advice. Electronicall y signed by Maci Grider at 08/29/2019 3:06 PM PDTdocumented in this encounter Plan of Treatment Not on filedocumented as of this encounter Visit Diagnoses Not on filedocumented in this encounter"
--- OUTSIDE RECORDS SUMMARY | ~2020-05-16 | XMS | Encounter Summary ---
Demographics + + + | Address | [address] | | | [place] [address] | + + + | Home Phone | | + + + | Preferred Language | Unknown | + + + | Marital Status | Single | + + + | Cheondoism Affiliation | 1013 | + + + | Race | Unknown | + + + | Ethnic Group | Unknown | + + + Author + + + | Author | [facility] | | | and [place] | + + + | Organization | [facility] | | [...] Team Providers + +------+ + | Care Cutter Machine Tender Name | Role | Phone | + +------+ + | James Farmer MD | PCP | | + +------+ + Reason for Visit +--------+--------+ + | Reason | Onset | Comments | | | Date | | +--------+--------+ + | EGD | 10/26/ | | | | 2016 | | +--------+--------+ + Encounter Details +--------+ + + + + | Date | Type | Department | Care Team | Description | +--------+ + + + + | 10/26/ | Telephone | [facility] | Loi Hui MD | EGD | | 2016 | | GASTROENTEROLOGY | [address] | | | | | [address] [facility] | [place], [place] | | | | | [address] [place], [place] | [address] | | | | | [address] | [phone] | | | | | [phone] | | | +--------+ + + + [...] this encounter Miscellaneous Notes Telephone Encounter - Yi Barrera - 10/27/2017 12:50 PM [id number] appt has been cancel led. elephone Encounter - Zarina Ramon RN - 10/27/2017 11:14 AM PSTSpoke with patient and she has rescheduled h er EGD with prop for 11/[address] 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 PSR, please cancel patients office appt on 11/01, it is no longer needed. Thank youElectron radhikally signed by Zarina Ramon RN at 10/27/2017 11:26 AM PSTTelephone Encounter - Lulu Lockwood - 10/26/2017 10:48 AM PSTPatient called and stated she can do an EGD on tuesdays as that is the only day her boyfriend has off. Please call her back at [phone]. Thank you. documented in thi s encounter Plan of Treatment Not on filedocumented as of this encounter Visit Diagnoses + + | Diagnosis | + + | Gastroesophageal reflux disease, esophagitis presence not specified - Primary | + + | Dysphagia, unspecified type | + + | Benzodiazepine dependence (HCC) Sedative, hypnotic or anxiolytic dependence, | | unspecified | + + documented in this encounter"
--- OUTSIDE RECORDS SUMMARY | ~2020-05-16 | XMS | Encounter Summary ---
Demographics + + + | Address | [address] | | | [place] [address] | + + + | Home Phone | | + + + | Preferred Language | Unknown | + + + | Marital Status | Single | + + + | Druze Affiliation | 1013 | + + + | Race | Unknown | + + + | Ethnic Group | Unknown | + + + Author + + + | Author | [facility] | | | and [place] | + + + | Organization | [facility] | | | [...] Team Providers + +------+ + | Care Group Leader Wafer Polishing Name | Role | Phone | + +------+ + | James Farmer MD | PCP | | + +------+ + Reason for Visit + +--------+ + | Reason | Onset | Comments | | | Date | | + +--------+ + | Referral | 12/24/ | Patient has an appt with Dr. Chon cuellar Wednesday, referral | | | 2018 | needed. | + +--------+ + Encounter Details +--------+ + + + + | Date | Type | Department | Care Team | Description | +--------+ + + + + | 12/24/ | Telephone | [facility] | James Farmer, | Referral (Patient | | 2018 | | MEDICINE [address] | [address] | has an appt with | | | | [place], | [place], [place] | [place] this Wednesday, | | | | [place] [address] | [id number] | referral needed.) | | | | [phone] | | | +--------+ + + + [...] this encounter Miscellaneous Notes Telephone Encounter - Renetta Bonds - 01/05/2018 9:15 AM PSTReferral initiated and p ending review in [place]. Closing encounter.Electronically signed by Renetta Bonds at 12/23 9:20 AM PSTTelephone Encounter - Ashlie Blevins LPN - 12/24/2017 3:42 PM PSTIt nohemy hawthorne we did see her November are you willing to provide an urgent referral for podiatry to DR Givens, she has an appt on Jan 03?Electronically signed by Ashlie Blevins LPN at 8 3:43 PM PSTTelephone Encounter - Rush Silva - 12/24/2017 3:21 PM PSTJesus t was seen in this office on Oct 05, 2017. Patient does have a return on Jan 03, 2018.Elec tronically signed by Rush Silva at 12/24/2017 3:22 PM PSTTelephone Encounter - Ashlie Blevins LPN - 12/24/2017 2:03 PM PSTPlease call and advise that Dr Farmer has n ot seen her here at this clinic and until she is seen he will not be able to provide her mervat tom a referral. evira e Encounter - Renetta Bonds - 12/24/2017 1:17 PM PST1. Patient has an appointment mervat Givens on Wednesday at 3PM for foot issues. 2. Per her Insurance she will need a referral sent JORGE. 3. Patient called requesting to speak to nurse about this. [phone] documente d in this encounter Plan of Treatment Not on filedocumented as of this encounter Visit Diagnoses Not on filedocumented in this encounter"
--- OUTSIDE RECORDS SUMMARY | ~2020-05-16 | XMS | Encounter Summary ---
Demographics + + + | Address | [address] | | | [place] [address] | + + + | Home Phone | | + + + | Preferred Language | Unknown | + + + | Marital Status | Single | + + + | Latter-Day Affiliation | 1013 | + + + | Race | Unknown | + + + | Ethnic Group | Unknown | + + + Author + + + | Author | [facility] | | | and [place] | + + + | Organization | [facility] | | | [...] Team Providers + +------+ + | Care Hyperbaric Technologist Name | Role | Phone | + +------+ + | James Farmer MD | PCP | | + +------+ + Reason for Referral Evaluate & Treat (Routine) + + + + + + + | Status | Reason | Specialty | Diagnoses / | Referred By | Referred To | | | | | Procedures | Contact | Contact | + + + + + + + | Authorized | Specialty | Gastroenterol | Diagnoses | [facility], | [facility] | | | Services | ogy | Esophageal | James Dennis MD | CLINIC [facility] | | | Required | | dysmotility | [address] [facility] | | | | | | [place] | [place] | | | | | | [place] | [address] | | | | | | [address] | | | | | | Phone: | [place], [place] | | | | | | [phone] | [address] | | | | | | Fax: | Phone: | | | | | | [phone] | [phone] | | | | | | | Fax: | | | | | | | [phone] | + + + + + + + + + | Scheduling Instructions | + + | Napoleon Fabian MD [facility] | + + Encounter Details +--------+ + + + + | Date | Type | Department | Care Team | Description | +--------+ + + + + | 04/23/ | Orders Only | [facility] [place] [facility] | James Farmer, | Esophageal | | 2019 | | MEDICINE [address] | MD [address] | dysmotility (Primary | | | | [place], | [place] | Dx) | | | | [place] [address] | [id number] | | | | | [phone] | | | +--------+ + + + [...] as of this encounter Plan of Treatment + + +--------+ + + | Name | Type | Priori | Associated Diagnoses | Order Schedule | | | | ty | | | + + +--------+ + + | Gastroenterology, | Outpatient | Routin | Esophageal | Ordered: 04/23/2020 | | External - AMB | Referral | e | dysmotility | | | Referral | | | | | + + +--------+ + + documented as of this encounter Visit Diagnoses + + | Diagnosis | + + | 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
--- OUTSIDE RECORDS SUMMARY | ~2020-05-16 | XMS | Encounter Summary ---
Demographics + + + | Address | [address] | | | [place] [address] | + + + | Home Phone | | + + + | Preferred Language | Unknown | + + + | Marital Status | Single | + + + | Sikhism Affiliation | [id number] | + + + | Race | Unknown | + + + | Ethnic Group | Unknown | + + + Author + + + | Author | [facility] | | | and [place] | + + + | Organization | [facility] | | [...] Team Providers + +------+ + | Care Fire Equipment Operator Name | Role | Phone | + +------+ + | No, Physician | PCP | Unavailable | + +------+ + Reason for Visit Auth/Cert +--------+--------+ + + + + | Status | Reason | Specialty | Diagnoses / | Referred By | Referred To | | | | | Procedures | Contact | Contact | +--------+--------+ + + + + | | | | Diagnoses | | | | | | | | | | | | | | Hyponatremia | | | | | | | Seizure | | | +--------+--------+ + + + + Encounter Details +--------+---------+ + + + | Date | Type | Department | Care Team | Description | +--------+---------+ + + + | 07/22/ | Surgery | [facility] | Alireza Thomas MD | Canceled | | 2017 | | [facility] | [address] | PROCEDURE NOT | | | | [address]TRA [address] | [place] [address] | PERFORMED | | | | [address] | [id number] | | | | | [address] | | | | | | [phone] | | | +--------+---------+ + + + Social History [...] this encounter Last Filed Vital Signs + + + + + | Vital Sign | Reading | Time Taken | Comments | + + + + + | Blood Pressure | 168/80 | 07/22/2017 3:00 PM | | | | | PDT | | + + + + + | Pulse | 66 | 07/22/2017 3:00 PM | | | | | PDT | | + + + + + | Temperature | 38.2 C (100.76 | 07/22/2017 3:00 PM | | | | F) | PDT | | + + + + + | Respiratory Rate | 16 | 07/22/2017 3:00 PM | | | | | PDT | | + + + + + | Oxygen Saturation | 100% | 07/22/2017 3:00 PM | | | | | PDT | | + + + + + | Inhaled Oxygen | - | - | | | Concentration | | | | + + + + + | Weight | 82 kg (180 lb 12.4 | 07/22/2017 4:00 AM | | | | oz) | PDT | | + + + + + | Height | 160 cm (5' 3") | 07/21/2017 9:45 AM | | | | | PDT | | + + + + + | Body Mass Index | 32.45 | 07/21/2017 9:45 AM | | | | | PDT | | + + + + + documented in this encounter Discharge Summaries Catrachita Moore MD - 07/25/2017 10:19 AM PDTFormatting of this note might be different from shana arboleda. Pt. Name/Age/: Cherrie Quijano 56 y.o. 1960 Date of Admission: 07/21/2017 Date of Discharge: 07/25/2017 Date of Service: 07/25/2017 Admitting Physician: Zoraida Mix DO Primary Care Provider: No Physician on file Discharging Physician: Catrachita Moore MD Consults: GI Disposition: Home Issues requiring follow up post discharge: -Hyponatremia- discharging on 2L free water restriction -Dysphagia- EGD/colonoscopy to be done on outpatient basis -Possible angina on exertion- EGD/colonoscopy not done due to anesthesia concerns, advised pt to see PCP for referral to importer or exporter for workup DISCHARGE DIAGNOSES: Active Hospital Problems Diagnosis Hyponatremia Thrombocytopenia Severe protein-calorie malnutrition Seizure Dysphagia Resolved Hospital Problems Diagnosis SIRS (systemic inflammatory response syndrome) Normocytic anemia Acute metabolic encephalopathy DISCHARGE MEDICATIONS: Discharge Medications Unchanged Medications Details ALPRAZolam 0.25 mg tablet Take 0.25 mg by mouth 3 times daily as needed for Anxiety. 1/2 tablet in the morning, 1/2 tablet midday and full tablet at night aka: XANAX omeprazole 20 mg capsule Take 1 capsule by mouth 2 times daily (before meals). 30 minutes before breakfast and dinn er. aka: priLOSEC VITAMIN D3 PO CAPS, take 5000 units daily by mouth Discontinued Medications Black Cohosh 200 MG Caps ondansetron 4 mg tablet aka: ZOFRAN sodium sulfate-potassium sulfate-magnesium sulfate oral solution aka: SUPREP BOWEL PREP KIT UNKNOWN TO PATIENT DISCHARGE INSTRUCTIONS: Follow-up Information No Physician on file. PENDING RESULTS: none HOSPITAL COURSE: Please refer to the H&P for full details. In short, this is a 56 y.o. female with a histor y of GERD & dysphagia x 3 mos who presented to OSH on 07/21 with new onset seizures. She was prepping for EGD/colonoscopy & developed hyponatremia; her presenting Na+ was 111. She rec eived hypertonic saline and x8 hrs later was 120, up to 125 x24 hrs later. She received fur ther IV fluids & ddAVP. At 48 hr christiano, her Na+ was 140. CT/head was unremarkable; anti epi leptics were discontinued as seizure activity was attributed to hyponatremia. AM cortisol w as 12.7. GI consulted for EGD/colonoscopy which was not performed due to anesthesia concerns . Of note, she had a esophagram 04/27/17 which showed poor contractility of the thoracic esoph mary and prominence of the mucosal folds above the GE junction. ST cleared her for a gener al diet with thin liquids. She was transferred to the floor on 07/22 where hospitalists assum ed care where she required 1 liter of D5W and one additional dose of ddAVP with stabilizatio n of her sodiums; she remains stable on 2L free water restriction. She was evaluated by the rapies prior to discharge. Her boyfriend reports her gait is at baseline for the past 30 yr s. She was discharged in stable condition. PHYSICAL EXAM: Temp: 37.1 C (98.8 F), Pulse: 82, Resp: 18, BP: 120/66, SpO2 96 % on room air at flow r ate 2L/min Temp Min: 36.8 C (98.3 F) Max: 37.1 C (98.8 F) Weight: 86.3 kg (190 lb 4.1 oz) General: Awake, no distress, appears comfortable. Cardiovascular: Regular rate and rhythm . Respiratory: Breathing comfortably, no respiratory distress Abdomen: Soft, nontender, nondistended, bowel sounds present. Extremities: No peripheral edema. Skin: Warm and dry. No rashes. No cyanosis. Neurologic: Alert and oriented x 3. Mild dysarthria. Greater than 30 minutes were spent on discharge and coordination of post-hospital care. Electronically signed by: Catrachita Moore MD, 07/25/2017 10:19 [facility] Portions of this chart may have been created with StatusPage voice recognition software. Occasi onal wrong-word or sound-alike substitutions may have occurred due to the inherent shannon itations of voice recognition software. Please read the chart carefully and recognize, using context, where these substitutions have occurred documented in this encounter Medications at Time of Discharge + + + +---------+ + + | Medication | Sig | Dispensed | Refills | Start | End Date | | | | | | Date | | + + + +---------+ + + | ALPRAZolam (XANAX) | Take 0.25 mg by | | 0 | | | | 0.25 mg tablet | mouth 3 times daily | | | | 8 | | | as needed for | | | | | | | Anxiety. 1/2 tablet | | | | | | | in the morning, 1/2 | | | | | | | tablet midday and | | | | | | | full tablet at night | | | | | + + + +---------+ + + | Cholecalciferol | CAPS, take 5000 | | 0 | 01/27/20 | | | (VITAMIN D3 PO) | units daily by mouth | | | 11 | 7 | + + + +---------+ + + | omeprazole | Take 1 capsule by | 180 | 3 | 06/16/20 | | | (PRILOSEC) 20 mg | mouth 2 times daily | capsule | | 17 | 8 | | capsule | (before meals). 30 | | | | | | | minutes before | | | | | | | breakfast and | | | | | | | dinner. | | | | | + + + +---------+ + + documented as of this encounter Progress Notes Kimmy Key MD - 07/24/2017 6:13 PM [id number] female with dyphagia. Work up suggestive of motility issue. Was to have egd (routine screening colo) but was on hold due to sx's of angina like when seen by anesthesia. Pt thinks she is to go home tomorrow and wants to go h ome. Abd: +bs, nt,nd A/P; 1. Dysphagia. Follow up as outpt regarding EGD 2. Routine crc. Follow up as outpt for colo. Kimmy Key MD 07/24/2017 Gastroenterology, [facility] [place], [place] Office: [phone] aCatrachita sawant MD - 11:10 AM PDT Patient: Cherrie Quijano Date of : 1960 Admit Date: 07/21/2017 Date of Service: 07/24/2017 PCP: No Physician on file Hospital Day: 3 Hospital Course: Ms. Quijano is a 56 YOF with a history of GERD & dysphagia x 3 mos who presented to OSH on 07/21 with new onset seizures. She was prepping for EGD/colonoscopy & developed hyponatremi a; her presenting Na+ was 111. She received hypertonic saline and x8 hrs later was 120, up to 125 x24 hrs later. She received further IV fluids & ddAVP. At 48 hr christiano, her Na+ was [address]/head was unremarkable; anti epileptics were discontinued as seizure activity was att ributed to hyponatremia. GI is consulting for EGD/colonoscopy. Of note, she had a esophagram 04/27/17 which showed poor contractility of the thoracic esopha [place] and prominence of the mucosal folds above the GE junction. She was transferred to the floor on 07/22 where hospitalists assumed care. Assessment and Plan: Assessment of active problems addressed today: Hyponatremia -Na+ 111 on 07/21 AM -Na+ 125 on 07/22 AM -Na+ 140 on 07/23 AM S/p ddAVP & D5W 1L 07/23 AM cortisol 12.7 Na+ stable 2L fluid restrict diet as she is euvolemic q6 hr Na+ Dysphagia Since 04/21 per patient Workup thus far has included barium esophagram Appreciate GI consulting- EGD/colonoscopy deferred to outpt basis ST eval Will modify diet Acute metabolic encephalopathy Resolved Severe protein calorie malnutrition Appreciate solar panel technician consulting Thiamine 300 mg IV daily Add MVI-M Thrombocytopenia Mild Seizure Secondary to hyponatremia No need for AEDs SIRS Resolved Active Hospital Problems Diagnosis Hyponatremia Thrombocytopenia Severe protein-calorie malnutrition Seizure Dysphagia Resolved Hospital Problems Diagnosis SIRS (systemic inflammatory response syndrome) Normocytic anemia Acute metabolic encephalopathy I have reviewed and updated the problem list. Disposition: ADOD 07/25 home if Na+ stable, cleared by therapies CODE STATUS: Full Code DVT prophylaxis: SCDs Subjective: Pt denies pain, nausea. Admits to dysphagia with scrambled eggs this AM. Working with phys therapy. Objective: Vital Signs 07/22 700 - 07/23 0659 07/23 07 - 07/24 0659 07/24 700 - 07/24 1114 Most Rec ent Temp (C) 36 - (!)38.2 37.1 - 37.8 36.7 36.7 (98) Pulse 59 - 73 71 - 89 89 89 Resp 11 - 25 16 - 18 16 16 BP 103/68 - 168/80 106/69 - 129/69 110/63 110/63 SpO2 (%) (!)84 - 100 97 - 99 96 96 Weight (kg) 75.6 83.1 83.1 kg (183 lb 3.2 oz) I/O last 3 completed shifts: In: 1017 [I.V.:868; IV Piggyback:149] Out: - Wt Readings from Last 3 Encounters: 07/24/17 83.1 kg (183 lb 3.2 oz) 07/21/17 81.6 kg (180 lb) 06/16/17 84.7 kg (186 lb 12.8 oz) Active Lines PIV Line Peripheral IV Line - Single Lumen 07/23/17 0611 Left Anterior (palmar);Mid Forearm over-th e-needle catheter system 20 gauge;1 1/4 in length 1 day Active Tubes/Drains No matching active lines, drains, or airways PHYSICAL EXAM: General: nad HEENT: Moist mucous membranes CV: rrr Lungs: ctab Abd: soft nt / nd +bs Ext: no c/c/e Skin: warm, dry Neuro: aaox3, dysarthria. Ambulating without assist, gait somewhat unsteady 24 HOUR LABS: Recent Results (from the past 24 hour(s)) POC Glucose Result Value Ref Range Glucose, POC 142 (H) 65 - 99 mg/dL Sodium Result Value Ref Range NA 139 135 - 145 mmol/L Sodium Result Value Ref Range NA 136 135 - 145 mmol/L POC Glucose Result Value Ref Range Glucose, POC 120 (H) 65 - 99 mg/dL Sodium Result Value Ref Range NA 132 (L) 135 - 145 mmol/L POC Glucose Result Value Ref Range Glucose, POC 115 (H) 65 - 99 mg/dL Sodium Result Value Ref Range NA 134 (L) 135 - 145 mmol/L CBC with Differential Result Value Ref Range WBC 7.2 3.8 - 11.0 K/uL RBC 4.28 3.70 - 5.10 M/uL Hgb 11.7 11.3 - 15.5 g/dL Hct 34.9 34.0 - 46.0 % MCV 81.5 80.0 - 100.0 fL MCH 27.4 27.0 - 34.0 pg MCHC 33.6 32.0 - 35.5 g/dL RDW-CV 13.5 11.0 - 15.5 % Platelet Count 140 (L) 150 - 400 K/uL Differential Type Automated % Neutrophils 67.9 40.0 - 75.0 % % Lymphocytes 23.0 15.0 - 48.0 % % Monocytes 7.8 0.0 - 12.0 % % Eosinophils 0.7 0.0 - 7.0 % % Basophils 0.6 0.0 - 2.0 % Absolute Neutrophils 4.90 1.90 - 7.40 K/uL Absolute Lymphocytes 1.60 1.00 - 3.90 K/uL Absolute Monocytes 0.60 0.00 - 0.80 K/uL Absolute Eosinophils 0.00 0.00 - 0.50 K/uL Absolute Basophils 0.00 0.00 - 0.10 K/uL Comprehensive Metabolic Panel Result Value Ref Range NA 135 135 - 145 mmol/L K 3.6 3.5 - 5.0 mmol/L CL 100 99 - 109 mmol/L CO2 26 21 - 28 mmol/L GLUCOSE 118 (H) 65 - 99 mg/dL BUN 3 (L) 8 - 25 mg/dL Creatinine, Serum/Plasma 0.54 0.50 - 1.00 mg/dL CALCIUM 9.1 8.5 - 10.2 mg/dL Total protein 6.5 6.1 - 8.4 g/dL ALBUMIN 3.7 3.5 - 5.0 g/dL BILIRUBIN TOTAL 0.8 0.1 - 1.5 mg/dL ALK PHOS 75 35 - 115 U/L AST 82 (H) 10 - 45 U/L ALT 47 10 - 65 U/L ANION GAP 9 5 - 16 mmol/L Estimated GFR >60 >60 ml/min/1.73m2 Magnesium Result Value Ref Range MG 1.9 1.7 - 2.4 mg/dL Phosphorus Result Value Ref Range PHOSPHORUS 2.9 2.3 - 4.8 mg/dL POC Glucose Result Value Ref Range Glucose, POC 124 (H) 65 - 99 mg/dL POC Glucose Result Value Ref Range Glucose, POC 119 (H) 65 - 99 mg/dL Glucose, POC Date/Time Value Ref Range Status 07/24/2017 08:44 119 (H) 65 - 99 mg/dL Final 07/24/2017 06:09 124 (H) 65 - 99 mg/dL Final 07/23/2017 20:51 115 (H) 65 - 99 mg/dL Final All pertinent labs and imaging have been reviewed. Please refer to the Assessment and Plan for details on management. Electronically signed by: Catrachita Moore MD 07/24/2017 11:14 Portions of this chart may have been created with StatusPage voice recognition software. Occasi onal wrong-word or sound-alike substitutions may have occurred due to the inherent shannon itations of voice recognition software. Please read the chart carefully and recognize, using context, where these substitutions have occurred ol Delvalle RN - 07/23/2017 9:12 PM PDT4 hour shift report: Patient is alert and oriented, walking to the thro with SBA , in the room helping with care. Na checks q4h , last Na 132.Electro nically signed by Sol Delvalle RN at 07/23/2017 9:15 PM Caprice Santa RN - 2016 1:17 PM PDTPt alert and oriented. Boyfriend at bedside to assist pt to bathroom. NPO f or EGD/Colonoscopy. Presented to the hospital with a NA of 111. Today it has been 140/143 no w 139 has D5W infusing for 1 liter. Endo notified to keep D5W infusing for 1 liter. She als o received DDAVP. Q 4 NA checks and call results to Dr. Diallo. Pt has been having difficul ty swallowing at home and also needs a swallow eval. Hx of slurred speech and she drags her foot when walking. Her boyfriend states she has always had this. Gena Rodríguez MSW - 07/23/2017 11:26 AM PDTPt's s pouse requested info on local Hotels. Provided him with list and suggested he contact [facility] for hospital rates. A M Catrachita Pacheco MD - 07/23/2017 11:14 AM PDTFormatting of this note might be different fr om the original. Patient: Cherrie Quijano Date of : 1960 Admit Date: 07/21/2017 Date of Service: 07/23/2017 PCP: No Physician on file Hospital Day: 2 Hospital Course: Ms. Quijano is a 56 YOF with a history of GERD & dysphagia x 3 mos who presented to OSH on 07/21 with new onset seizures. She was prepping for EGD/colonoscopy & developed hyponatremi a; her presenting Na+ was 111. She received hypertonic saline and x8 hrs later was 120, up to 125 x24 hrs later. She received further IV fluids & ddAVP. At 48 hr christiano, her Na+ was [address]/head was unremarkable; anti epileptics were discontinued as seizure activity was att ributed to hyponatremia. GI is consulting for EGD/colonoscopy. Of note, she had a esophagram 04/27/17 which showed poor contractility of the thoracic esopha [place] and prominence of the mucosal folds above the GE junction. She was transferred to the floor on 07/22 where hospitalists assumed care. Assessment and Plan: Assessment of active problems addressed today: Hyponatremia -Na+ 111 on 07/21 AM -Na+ 125 on 07/22 AM -Na+ 140 on 07/23 AM Reviewed with multimedia technician Give ddAVP 2 mcg IV stat, will dose prn Give D5W 1L over 4hrs Stat q4 hr Na+ AM cortisol 12.7 Dysphagia Since 04/21 per patient Workup thus far has included barium esophagram Appreciate GI consulting- EGD/colonoscopy today if Na+ stable ST eval pending Acute metabolic encephalopathy Improved Protein calorie malnutrition Professor Of Genetics consult pending Thrombocytopenia Plt 128k Monitor Dc lovenox for anticipated procedure today Seizure Secondary to hyponatremia No need for AEDs SIRS Resolved Pro calcitonin unremarkable, no leukocytosis CXR neg Dixon out Dc Unasyn as no evidence of aspiration Active Hospital Problems Diagnosis Hyponatremia Thrombocytopenia Protein calorie malnutrition Seizure Acute metabolic encephalopathy Dysphagia Resolved Hospital Problems Diagnosis SIRS (systemic inflammatory response syndrome) Normocytic anemia I have reviewed and updated the problem list. Disposition: Home when Na+ stable, cleared by GI & therapies CODE STATUS: Full Code DVT prophylaxis: SCDs Subjective: Pt c/o FITZGERALD since she has been NPO. Denies chronic FITZGERALD, changes in vision. Denies n/v/f/c/d/c/ sob. Complains of dysphagia for solids mostly. Her boyfriend of 7 yrs reports her gait has been unsteady for 30 yrs and unchanged. Objective: Vital Signs 07/21 700 - 07/22 0659 07/22 07 - 07/23 0659 07/23 07 - 07/23 1115 Most Rec ent Temp (C) 36.2 - (!)38.3 36 - (!)38.2 37.8 37.8 (100) Pulse 55 - 98 60 - 71 71 71 Resp 15 - (!)32 16 - 25 18 18 BP (!)89/62 - 143/65 103/68 - 168/80 106/69 106/69 SpO2 (%) 94 - 100 98 - 100 97 97 Weight (kg) 82 - 86.3 75.6 75.6 kg (166 lb 9.6 oz) I/O last 3 completed shifts: In: 4709 [I.V.:3729; IV Piggyback:980] Out: 2840 [Urine:2840] Wt Readings from Last 3 Encounters: 07/23/17 75.6 kg (166 lb 9.6 oz) 07/21/17 81.6 kg (180 lb) 06/16/17 84.7 kg (186 lb 12.8 oz) Active Lines PIV Line Peripheral IV Line - Single Lumen 07/23/17 0611 Left Anterior (palmar);Mid Forearm over-th e-needle catheter system 20 gauge;1 1/4 in length less than 1 day Active Tubes/Drains No matching active lines, drains, or airways PHYSICAL EXAM: General: nad CV: rrr Lungs: ctab Abd: soft nt / nd +bs Ext: no c/c/e Skin: warm, dry Neuro: aaox3, dysarthria. Ambulating without assist, gait somewhat unsteady 24 HOUR LABS: Recent Results (from the past 24 hour(s)) Sodium Result Value Ref Range NA 126 (L) 135 - 145 mmol/L Phosphorus Result Value Ref Range PHOSPHORUS 2.1 (L) 2.3 - 4.8 mg/dL Potassium Result Value Ref Range K 3.6 3.5 - 5.0 mmol/L POC Glucose Result Value Ref Range Glucose, POC 113 (H) 65 - 99 mg/dL C-Reactive Protein Result Value Ref Range CRP 7.8 (H) 0.0 - 1.5 mg/dL Ferritin Result Value Ref Range FERRITIN 202 11 - 307 ng/mL Sodium Result Value Ref Range NA 126 (L) 135 - 145 mmol/L Procalcitonin Result Value Ref Range Procalcitonin 0.08 <0.1 ng/mL Urinalysis with Microscopic with Culture if Indicated Result Value Ref Range COLOR Yellow CLARITY Hazy GLUCOSE UA Negative Negative mg/dL BILIRUBIN UA Negative Negative KETONES UA Negative Negative mg/dL Specific [place] 1.010 1.001 - 1.030 PH UA 7.0 5.0 - 7.5 PROTEIN UA 30 (A) Negative mg/dL UROBILINOGEN UA <2.0 <2.0 mg/dL NITRITE UA Negative Negative BLOOD UA Large (A) Negative LEUKOCYTES ESTERASE UA Negative Negative WBC UA 3 <6 /hpf RBC UA 24 (H) <6 /hpf BACTERIA UA None seen /hpf SQUAMOUS EPITHELIAL UA Not clinically significant. /lpf MUCUS UA Present (A) None seen /lpf Culture Indicated Culture not indicated Culture not indicated Sodium Result Value Ref Range NA 127 (L) 135 - 145 mmol/L POC Glucose Result Value Ref Range Glucose, POC 87 65 - 99 mg/dL CBC with Differential Result Value Ref Range WBC 6.4 3.8 - 11.0 K/uL RBC 4.22 3.70 - 5.10 M/uL Hgb 11.6 11.3 - 15.5 g/dL Hct 34.4 34.0 - 46.0 % MCV 81.3 80.0 - 100.0 fL MCH 27.5 27.0 - 34.0 pg MCHC 33.8 32.0 - 35.5 g/dL RDW-CV 13.3 11.0 - 15.5 % Platelet Count 128 (L) 150 - 400 K/uL Differential Type Automated % Neutrophils 73.7 40.0 - 75.0 % % Lymphocytes 18.6 15.0 - 48.0 % % Monocytes 7.1 0.0 - 12.0 % % Eosinophils 0.3 0.0 - 7.0 % % Basophils 0.3 0.0 - 2.0 % Absolute Neutrophils 4.70 1.90 - 7.40 K/uL Absolute Lymphocytes 1.20 1.00 - 3.90 K/uL Absolute Monocytes 0.50 0.00 - 0.80 K/uL Absolute Eosinophils 0.00 0.00 - 0.50 K/uL Absolute Basophils 0.00 0.00 - 0.10 K/uL Cortisol, Serum Result Value Ref Range Cortisol 12.7 0 - 23 ug/dL Renal Function Panel Result Value Ref Range NA 131 (L) 135 - 145 mmol/L K 3.8 3.5 - 5.0 mmol/L CL 97 (L) 99 - 109 mmol/L CO2 24 21 - 28 mmol/L GLUCOSE 106 (H) 65 - 99 mg/dL BUN 6 (L) 8 - 25 mg/dL Creatinine, Serum/Plasma 0.53 0.50 - 1.00 mg/dL CALCIUM 8.6 8.5 - 10.2 mg/dL PHOSPHORUS 2.3 2.3 - 4.8 mg/dL ALBUMIN 3.5 3.5 - 5.0 g/dL ANION GAP 10 5 - 16 mmol/L Estimated GFR >60 >60 ml/min/1.73m2 POC Glucose Result Value Ref Range Glucose, POC 101 (H) 65 - 99 mg/dL Sodium Result Value Ref Range NA 140 135 - 145 mmol/L Glucose, POC Date/Time Value Ref Range Status 07/23/2017 05:04 101 (H) 65 - 99 mg/dL Final 07/22/2017 20:56 87 65 - 99 mg/dL Final 07/22/2017 12:29 113 (H) 65 - 99 mg/dL Final All pertinent labs and imaging have been reviewed. Please refer to the Assessment and Plan for details on management. Electronically signed by: Catrachita Moore MD 07/23/2017 11:15 Portions of this chart may have been created with StatusPage voice recognition software. Occasi onal wrong-word or sound-alike substitutions may have occurred due to the inherent shannon itations of voice recognition software. Please read the chart carefully and recognize, using context, where these substitutions have occurred Zoraida Walter MD - 07/22/2017 7:23 PM PDT Patient: Cherrie Quijano Date of : 1960 Admit Date: 07/21/2017 Date of Service: 07/22/2017 PCP: No Physician on file Hospital Day: 1 Hospital Course: 56 yof w/ a PMH of GERD and severe dysphagia presented to ED with status epilepticus and severe symptomatic hyponatremia. She was undergoing a bowel prep for an EGD and states she developed extreme thirst and kept drinking water. She was found to have a Na of 111, upon arrival to this was 114. She was given hypertonic saline and this overcorrected to 126, thus she was switched to 1/2NS. Her hospital course was complicated by encephalopathy which was thought to be due to a post ictal state and her hyponatremia. Neurology was consulted for the seizures and she was placed on a precedex gtt. She was also given 2mg of lorazepam a nd 500mg keppra. She has had no further seizures with her sodium correction. GI was consult ed given her dysphagia and anemia. They are recommending an EGD and colonoscopy which will likely be performed by Dr. Thomas in the am. She has had an intermittent low grade fever, thus she was placed on unasyn for presumed aspiration PNA. Given improvement in her encephalopa thy and her sodiums, she was transferred to the hospitalist service 07/22/17. Of note, she had a esophagram 04/27/17 which showed poor contractility of the thoracic esopha [place] and prominence of the mucosal folds above the GE junction. She has lost over 25 pounds because she has been unable to eat solids. Assessment and Plan: Assessment of active problems addressed today: Severe symptomatic hypoosmolar hyponatremia: Although initially corrected fast, she has be en maintained at 126. She was given ddavp yesterday. Upon admission urine osm and serum osm both low. Consider SIADH vs primary polydipsia. Will also consider adrenal insufficiency. TSH slightly elevated although not impressive. She appears volume up. - allow for autoequilibration with serial sodiums - check am cortisol had episode of hypotension - fixing other electrolyte abnormalities Seizures: - neurology following - correcting sodium Acute encephalopathy: likely post-ictal state and severe hyponatremia. - improving Dysphagia 2/2 to poor contractility of tertiary esophagus: - EGD as per GI - protonix IV SIRS: low grade fever, dyspnea. - unasyn for aspiration pneumonia d=1 - recheck procalcitonin in am, then can likely d/c antibiotics Normocytic Anemia: -CBC manual diff -added on ferritin, ESR Severe protein calorie malnutrition: - nutrition consult Active Hospital Problems Diagnosis Hyponatremia Seizure Acute metabolic encephalopathy Resolved Hospital Problems Diagnosis No resolved problems to display. I have reviewed and updated the problem list. Disposition: TBD CODE STATUS: Full Code DVT prophylaxis: enoxaparin Subjective: Patient is doing much better. states she is back to her baseline and wants to go h ome. She has very garbled/heavy speech, but states this is her baseline. She state s she has not been able to eat any solids for over a month. Review of Systems Constitutional: Positive for chills, fever, malaise/fatigue and weight loss. HENT: Negative for tinnitus. Eyes: Negative for blurred vision and double vision. Respiratory: Positive for cough, sputum production, shortness of breath and wheezing. Negat saeid for hemoptysis. Cardiovascular: Negative for chest pain, palpitations and leg swelling. Gastrointestinal: Positive for heartburn and nausea. Negative for abdominal pain, blood in stool, constipation, diarrhea and vomiting. Genitourinary: Negative for dysuria, frequency and urgency. Musculoskeletal: Negative for myalgias and neck pain. Skin: Negative for itching and rash. Neurological: Positive for dizziness, seizures, loss of consciousness and weakness. Negativ e for tingling, sensory change, speech change, focal weakness and headaches. Objective: Vital Signs 07/20 700 - 07/21 0659 07/21 700 - 07/22 0659 07/22 700 - 07/22 2101 Most Rec ent Temp (C) 36.2 - (!)38.3 36 - (!)38.2 36.9 (98.4) Pulse 70 - 100 55 - 98 60 - 70 70 Resp 20 - (!)34 15 - (!)32 16 - 25 18 BP 91/54 - (!) 196/155 (!)89/62 - 143/65 103/68 - 168/80 126/66 SpO2 (%) 91 - 100 94 - 100 98 - 100 99 Weight (kg) 81.6 82 - 86.3 82 kg (180 lb 12.4 oz) I/O last 3 completed shifts: In: 5068 [I.V.:4188; IV Piggyback:880] Out: 6015 [Urine:6015] Wt Readings from Last 3 Encounters: 07/22/17 82 kg (180 lb 12.4 oz) 07/21/17 81.6 kg (180 lb) 06/16/17 84.7 kg (186 lb 12.8 oz) Active Lines PIV Line Peripheral IV Line - Single Lumen 07/21/17 0426 Right Wrist 20 gauge 1 day Peripheral IV Line - Single Lumen 07/21/17 2200 Left Distal Forearm 18 gauge less than 1 d ay Active Tubes/Drains No matching active lines, drains, or airways Physical Exam Constitutional: She is oriented to person, place, and time. She appears well-developed. No distress. HENT: Head: Normocephalic and atraumatic. Eyes: Conjunctivae and EOM are normal. Pupils are equal, round, and reactive to light. Neck: Normal range of motion. JVD present. Cardiovascular: Normal rate and regular rhythm. Exam reveals no friction rub. No murmur heard. Pulmonary/Chest: No respiratory distress. She has no wheezes. Crackles in bases Abdominal: Soft. Bowel sounds are normal. She exhibits no distension. There is no tendernes s. There is no guarding. Musculoskeletal: Normal range of motion. She exhibits no edema or deformity. Sacral edema Neurological: She is alert and oriented to person, place, and time. No cranial nerve defici t. Skin: Skin is warm and dry. No rash noted. She is not diaphoretic. No erythema. No pallor. 24 HOUR LABS: Recent Results (from the past 24 hour(s)) Sodium Result Value Ref Range NA 122 (L) 135 - 145 mmol/L CBC no Differential Result Value Ref Range WBC 5.9 3.8 - 11.0 K/uL RBC 3.81 3.70 - 5.10 M/uL Hgb 10.9 (L) 11.3 - 15.5 g/dL Hct 30.6 (L) 34.0 - 46.0 % MCV 80.4 80.0 - 100.0 fL MCH 28.6 27.0 - 34.0 pg MCHC 35.6 (H) 32.0 - 35.5 g/dL RDW-CV 13.2 11.0 - 15.5 % Platelet Count 113 (L) 150 - 400 K/uL Comprehensive Metabolic Panel Result Value Ref Range NA 123 (L) 135 - 145 mmol/L K 3.3 (L) 3.5 - 5.0 mmol/L CL 93 (L) 99 - 109 mmol/L CO2 21 21 - 28 mmol/L GLUCOSE 329 (H) 65 - 99 mg/dL BUN 5 (L) 8 - 25 mg/dL Creatinine, Serum/Plasma 0.52 0.50 - 1.00 mg/dL CALCIUM 7.8 (L) 8.5 - 10.2 mg/dL Total protein 5.6 (L) 6.1 - 8.4 g/dL ALBUMIN 3.3 (L) 3.5 - 5.0 g/dL BILIRUBIN TOTAL 0.8 0.1 - 1.5 mg/dL ALK PHOS 66 35 - 115 U/L AST 33 10 - 45 U/L ALT 17 10 - 65 U/L ANION GAP 9 5 - 16 mmol/L Estimated GFR >60 >60 ml/min/1.73m2 Magnesium Result Value Ref Range MG 1.8 1.7 - 2.4 mg/dL Phosphorus Result Value Ref Range PHOSPHORUS 1.8 (L) 2.3 - 4.8 mg/dL Osmolality, Serum Result Value Ref Range Osmolality Serum 263 (L) 275 - 295 mOsm/kg Sedimentation Rate Result Value Ref Range ESR 12 0 - 20 mm/h Sodium, Urine, Random Result Value Ref Range SODIUM,RANDOM URINE 53 0 - 259 mmol/L Osmolality, Urine Result Value Ref Range Osmolality Urine 490 50 - 1,200 mOsm/kg POC Glucose Result Value Ref Range Glucose, POC 64 (L) 65 - 99 mg/dL Sodium Result Value Ref Range NA 125 (L) 135 - 145 mmol/L POC Glucose Result Value Ref Range Glucose, POC 139 (H) 65 - 99 mg/dL POC Glucose Result Value Ref Range Glucose, POC 112 (H) 65 - 99 mg/dL Sodium Result Value Ref Range NA 126 (L) 135 - 145 mmol/L Phosphorus Result Value Ref Range PHOSPHORUS 2.1 (L) 2.3 - 4.8 mg/dL Potassium Result Value Ref Range K 3.6 3.5 - 5.0 mmol/L POC Glucose Result Value Ref Range Glucose, POC 113 (H) 65 - 99 mg/dL C-Reactive Protein Result Value Ref Range CRP 7.8 (H) 0.0 - 1.5 mg/dL Ferritin Result Value Ref Range FERRITIN 202 11 - 307 ng/mL ECG 12 lead Result Value Ref Range INTERPRETATION TEXT Not Confirmed Sodium Result Value Ref Range NA 126 (L) 135 - 145 mmol/L Procalcitonin Result Value Ref Range Procalcitonin 0.08 <0.1 ng/mL Urinalysis with Microscopic with Culture if Indicated Result Value Ref Range COLOR Yellow CLARITY Hazy GLUCOSE UA Negative Negative mg/dL BILIRUBIN UA Negative Negative KETONES UA Negative Negative mg/dL Specific [place] 1.010 1.001 - 1.030 PH UA 7.0 5.0 - 7.5 PROTEIN UA 30 (A) Negative mg/dL UROBILINOGEN UA <2.0 <2.0 mg/dL NITRITE UA Negative Negative BLOOD UA Large (A) Negative LEUKOCYTES ESTERASE UA Negative Negative WBC UA 3 <6 /hpf RBC UA 24 (H) <6 /hpf BACTERIA UA None seen /hpf SQUAMOUS EPITHELIAL UA Not clinically significant. /lpf MUCUS UA Present (A) None seen /lpf Culture Indicated Culture not indicated Culture not indicated Sodium Result Value Ref Range NA 127 (L) 135 - 145 mmol/L Glucose, POC Date/Time Value Ref Range Status 07/22/2017 12:29 113 (H) 65 - 99 mg/dL Final 07/22/2017 09:29 112 (H) 65 - 99 mg/dL Final 07/22/2017 08:04 139 (H) 65 - 99 mg/dL Final All pertinent labs and imaging have been reviewed. Please refer to the Assessment and Plan for details on management. I spent 70 minutes with the patient and on the patient's unit, with over 50% spent in coun seling and/or coordination of care. This included an additional 30 minutes of face to face t radha discussing the patients history and clinical course prior to admission. Please refer to the Assessment and Plan for details. Electronically signed by: Zoraida Pinedo MD 07/22/2017 21:01 THYKailee Figueroa RN - 07/22/2017 7:04 PM PDTPatient transfer Note Prior to patient transfer it was confirmed that the SBAR Handoff report was reviewed by 7N RN, and then that they had the opportunity to ask questions. 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 At the time of t ransfer patient had patent venous access with fluids infusing (see flowsheet for details). Kailee Alcaraz RN iuAlireza MD - 07/22/2017 3:56 PM PDTGI note: Patient brought down for the procedure. Initially, she didn't know her name and had to be r eminded. She had no memory of anything since admission. Her speech is slurred and her ment ation is slow. I explained to the patient I am uncomfortable with giving her sedation today given her mentation. Hopefully tomorrow her mentation will be improved and we can proceed. Today, clear liquids, MIraLax TID 4:0 5 PM PDTAl Colin Angie Mazariegos, SHOVEL ENGINEER - 07/22/2017 6:39 AM PDT Critical Care Progress Note [facility] Date of Service: 07/22/2017 Admit Date: 07/21/2017 Pt. Name: Cherrie Quijano Age: 56 y.o. : 1960 Code Status: Full Code Attending: Zoraida Mix DO Hospital Day: Hospital Day: 2 ICU Day: 2 Vent Day: na REASON FOR CRITICAL CARE: severe hyponatremia Background: 56 year old woman with hx depression/anxiety and issues with dysphagia since January 2017, wa s completing bowel prep for EGD/colonoscopy. Had seizure x 3, found to have severe hyponatr emia, transferred from outside hospital, after receiving 3% HTS and ativan. Summary of significant events: 07/21/17 Admission, Na 111 --> 114 07/22/17 No longer encephalopathic Assessment and Plan Today's plan: 1. Continue close monitor of Na/electrolytes 2. Correction of Na, goal </= 129 today 3. Consider transfer to floor 4. RD consult 5. GI consult Severe hyponatremia 123 this morning, avoiding rapid correction Goal 129 today, maintaining no more than 18 meq increase in 36 hours --> DDAVP --> 1/4 NS fluid replacement Acute metabolic encephalopathy, resolved Most likely from combination of post-ictal/hyponatremia Resolved today Seizures, provoked in setting of severe hyponatremia CT head with motion artifact, but essentially unremarkable --> DC keppra --> Ativan prn, but doubt there will be need for this Anemia, microcytic With weight loss, and protein malnurishment Upper/lower endoscopy this admission --> GI consult Protein malnurishment, 2/2 poor po intake x at least 5 months 2/2 dysphagia and fear of aspiration RD consult Dysphagia, work up started --> GI consult Patient Safety Measures: Last bowel movement: COMPLIANCE REPRESENTATIVE Antibiotics: na to na Feeding/Nutrition: NPO Analgesia: na DVT prophylaxis: enoxaparin HOB Elevation >30 deg: yes Ulcer prophylaxis: Pantoprazole Glycemic Control with goal 140-180 (non-DKA): corrective insulin Mobility: Up in chair Delirium: CAM-ICU Assessment:Negative Delirium Treatment (if present): na Bladder catheter present? Yes Indwelling urethral catheter use continues to be indicated for the following reason(s): Pat ient is on vasopressors for hemodynamic instability or diuretic infusion CVC Present ?: No CVC site(s): na Date of insertion: na Central venous catheter use continues to be indicated for the following reason(s): na PICC Present?: No PICC Site:na Date of insertion: na Arterial Line Present ?: No Arterial Line site(s): na Date of insertion: na Code Status: full code Palliative Care/Family: Last Family Meeting: sister updated by nursing staff yesterday; SO updated last night SUBJECTIVE: 24 hour Events / Interval HPI 24hr interval history: encephalopathy improved, precedex off; Na 114 --> 126 --> 123 ROS (review at least 2 systems if patient able): denies diplopia, numbness, tingling, weakness, no body aches; amnestic to yesterday's event s OBJECTIVE EXAM: Vitals: See below General appearance: no distress, well developed, obese Eyes: PERRL, EOMI ENT: slightly hypophonic Resp: CTAB Cardiac: regular rate and rhythm, S1, S2 normal, no murmur, click, rub or gallop Abdomen/GI: soft, non-tender, bt noted /renal: MSK: extremities normal, atraumatic, no cyanosis or edema Vascular: 2+ and symmetric Skin: Skin color, texture, turgor normal. No rashes or lesions Neurologic: awake, alert, oriented x person, place, age; PERRL, EOMI, face symmetric, MAZARIEGOS, sensation intact Vitals Current Average / Min / Max Temp 37.7 C (99.9 F) Temp Min: 36.2 C (97.2 F) Max: 38.3 C (100.9 F) BP 107/64 BP Min: 89/62 Max: 143/65 HR 57 Pulse Av.9 Min: 55 Max: 98 RR 18 Resp Av.1 Min: 15 Max: 32 Sats 98 % SpO2 Min: 94 % Max: 100 % Weight 82 kg (180 lb 12.4 oz) Admit: 86.3 kg (190 lb 4.1 oz) Hemodynamics: OXYGEN REQUIREMENTS: SpO2: 98 % Vent settings: Ventilation Mode: -- Minute Ventilation Total (L/min): -- Oxygen Concentration (%): -- PEEP: -- BMI: Body mass index is 32.02 kg/m. INPUT/OUTPUT: Intake/Output Summary (Last 24 hours) at 07/22/17 0639 Last data filed at 07/22/17 0600 Gross per 24 hour Intake 3434 ml Output 5290 ml Net -1856 ml IMAGING: I personally reviewed today's imaging tests LABORATORY: I personally reviewed today's labs in [facility] and ordered appropriate follow-up la milly Recent Results (from the past 24 hour(s)) Basic Metabolic Panel Result Value Ref Range NA 114 (LL) 136 - 149 mmol/L K 3.1 (L) 3.5 - 5.1 mmol/L CL 85 (L) 98 - 109 mmol/L CO2 19 (L) 24 - 31 mmol/L ANION GAP 10 3 - 16 mmol/L GLUCOSE 128 (H) 70 - 109 mg/dL BUN 1 (L) 7 - 18 mg/dL Creatinine, Serum/Plasma 0.56 (L) 0.60 - 1.30 mg/dL eGFR if not >60 >=60 mL/min/1.73m2 CALCIUM 7.8 (L) 8.3 - 10.5 mg/dL BUN/CREA 1.8 POC Glucose Result Value Ref Range Glucose, POC 134 (H) 65 - 99 mg/dL MRSA NAAT Result Value Ref Range Specimen Source Nasal MRSA BY PCR. Negative Negative Basic Metabolic Panel Result Value Ref Range NA 120 (LL) 135 - 145 mmol/L K 4.1 3.5 - 5.0 mmol/L CL 90 (L) 99 - 109 mmol/L CO2 20 (L) 21 - 28 mmol/L GLUCOSE 129 (H) 65 - 99 mg/dL BUN 3 (L) 8 - 25 mg/dL Creatinine, Serum/Plasma 0.50 0.50 - 1.00 mg/dL CALCIUM 8.7 8.5 - 10.2 mg/dL ANION GAP 10 5 - 16 mmol/L Estimated GFR >60 >60 ml/min/1.73m2 T4, Free Result Value Ref Range FT4 0.90 0.7 - 1.5 ng/dL Urinalysis with Microscopic with Culture if Indicated Result Value Ref Range COLOR Straw CLARITY Clear GLUCOSE UA Negative Negative mg/dL BILIRUBIN UA Negative Negative KETONES UA Trace (A) Negative mg/dL Specific [place] 1.005 1.001 - 1.030 PH UA 7.0 5.0 - 7.5 PROTEIN UA Negative Negative mg/dL UROBILINOGEN UA <2.0 <2.0 mg/dL NITRITE UA Negative Negative BLOOD UA Moderate (A) Negative LEUKOCYTES ESTERASE UA Negative Negative WBC UA 1 <6 /hpf RBC UA <1 <6 /hpf BACTERIA UA None seen /hpf SQUAMOUS EPITHELIAL UA Not clinically significant. /lpf Culture Indicated Culture not indicated Culture not indicated Sodium Result Value Ref Range NA 125 (L) 135 - 145 mmol/L Drugs of Abuse, Screen, Urine Result Value Ref Range Cannabinoids Screen, Urine Negative Negative Phencyclidine Screen, Urine Negative Negative Cocaine Metabolites, Ur Negative Negative Methamphetamine Screen, Urine Negative Negative Opiate Screen, Urine Negative Negative Amphetamine Screen, Urine Negative Negative Benzodiazepines Screen, Urine Positive (A) Negative TRICYCLICS UR. Negative Negative Methadone Screen, Urine Negative Negative Barbiturates Screen, Urine Negative Negative OXYCODONE, UR Negative Negative Porpoxyphene Screen, Urine Negative Negative Buprenorphine Screen, Urine Negative Negative Creatinine, Urine, Random Result Value Ref Range Creatinine, random urine 27 19 - 311 mg/dL Sodium Result Value Ref Range NA 126 (L) 135 - 145 mmol/L Sodium Result Value Ref Range NA 122 (L) 135 - 145 mmol/L CBC no Differential Result Value Ref Range WBC 5.9 3.8 - 11.0 K/uL RBC 3.81 3.70 - 5.10 M/uL Hgb 10.9 (L) 11.3 - 15.5 g/dL Hct 30.6 (L) 34.0 - 46.0 % MCV 80.4 80.0 - 100.0 fL MCH 28.6 27.0 - 34.0 pg MCHC 35.6 (H) 32.0 - 35.5 g/dL RDW-CV 13.2 11.0 - 15.5 % Platelet Count 113 (L) 150 - 400 K/uL Comprehensive Metabolic Panel Result Value Ref Range NA 123 (L) 135 - 145 mmol/L K 3.3 (L) 3.5 - 5.0 mmol/L CL 93 (L) 99 - 109 mmol/L CO2 21 21 - 28 mmol/L GLUCOSE 329 (H) 65 - 99 mg/dL BUN 5 (L) 8 - 25 mg/dL Creatinine, Serum/Plasma 0.52 0.50 - 1.00 mg/dL CALCIUM 7.8 (L) 8.5 - 10.2 mg/dL Total protein 5.6 (L) 6.1 - 8.4 g/dL ALBUMIN 3.3 (L) 3.5 - 5.0 g/dL BILIRUBIN TOTAL 0.8 0.1 - 1.5 mg/dL ALK PHOS 66 35 - 115 U/L AST 33 10 - 45 U/L ALT 17 10 - 65 U/L ANION GAP 9 5 - 16 mmol/L Estimated GFR >60 >60 ml/min/1.73m2 Magnesium Result Value Ref Range MG 1.8 1.7 - 2.4 mg/dL Phosphorus Result Value Ref Range PHOSPHORUS 1.8 (L) 2.3 - 4.8 mg/dL Osmolality, Serum Result Value Ref Range Osmolality Serum 263 (L) 275 - 295 mOsm/kg Sodium, Urine, Random Result Value Ref Range SODIUM,RANDOM URINE 53 0 - 259 mmol/L Osmolality, Urine Result Value Ref Range Osmolality Urine 490 50 - 1,200 mOsm/kg Current Medications: desmopressin (DDAVP) IVPB 2 mcg Intravenous 2 times per day enoxaparin 40 mg Subcutaneous Daily insulin lispro 0-6 Units Subcutaneous 6x Daily levETIRAcetam 500 mg Intravenous 2 times per day pantoprazole 40 mg Intravenous Daily Data Review: I personally reviewed all chart notes, imaging tests, laboratory results and r elevant tracings. The above conditions contribute to complex, high-level decision-making and to the high prob ability of acute, clinically significant deterioration. I personally reviewed all relevant chart notes, imaging tests, laboratory results and nicol ngs. I spent a total of 30 minutes personally providing critical care and formulating a plan for the day, independent of any time spent teaching or performing any separately billable proce dures. SIGNED BY: KELLY Ponce, 07/22/2017, 6:39 Addendum: Na 126. Neurologically, hemodynamically stable. Will transfer to floor, under care of Dr. Villegas; continue with plan for EGD today. Electronically Signed by: KELLY Ponce 07/22/2017 14:55 Melecio Ghosh RN - 07/22/2017 5:38 AM PDTShift Summary N: Agitated/restless/confused, but is clearing this morning. Now off Precedex gtt and orien yossi x4. Slurred, logical speech. Opens eyes to stimulation/spontaneously. PERRL. MAZARIEGOS. Na = 1 23. Desmopressin 2 mg x 2. C: SR/SB. SBP WNL. R: Clear/dim lung sounds. Tolerating 2L NC. GI: NPO- ST eval ordered (hx of dysphagia). Bowel tones active. BG = 329. Insulin sliding s carlos started. : Dixon- large, yellow output. Output has significantly decreased this AM. SKIN: Intact. Scattered ecchymosis. Small reddened area to LUE- present on admit. Tmax 38.2 C. IV: MIVF = 1/4 NS @ 100. Precedex off. Replaced K+, Mag, and Phos. Julieta. Sister and SO visited last night. Both are from out of town and will be back today. Electronically signed by: Abbie Dias RN 07/22/2017 5:38 documented in this encounter H&P Notes Alireza Thomas MD - 07/23/2017 2:13 PM PDTFormatting of this note might be different from e original. PRESEDATION ASSESSMENT/PLAN Pertinent History and Pre-Procedure Diagnosis: Patient presents to endoscopy for evaluati on of dysphagia and screening colonoscopy. Proposed Procedure: EGD and colonoscopy Sedation Preassessment: ASA Classification: ASA 3 - A patient with severe systemic disease Past Medical History: Diagnosis Date Anxiety Depression Dysphagia 04/21/2017 GERD (gastroesophageal reflux disease) Past Surgical History: Procedure Laterality Date VEIN SURGERY No Known Allergies SEE MED LIST Patient Reported Taking No current medications. Review of Systems: 10 point ROS completed and noncontributory other than listed in pertinent history. Exam within normal limits: Airway/Dental: yes Cardiac: Yes Chest/respiratory: Yes Level of consciousness: Normal Abdomen: abdomen is soft without significant tenderness, masses, organomegaly or guarding Plan for Sedation: Deep Sedation (MAC with Propofol) ASSESSMENT: Principal Problem: Hyponatremia Active Problems: Dysphagia Seizure Acute metabolic encephalopathy Protein calorie malnutrition Thrombocytopenia PLAN: Available medical records have been reviewed. Medication list has been reviewed. NPO status is acceptable. Patient approved for planned sedation and procedure. PARQ held: PARQ conference regarding the above mentioned procedure was held with the patien t or patient's home office representative prior to the procedure. Benefits and alternatives were reviewe d. Risks of procedure and sedation were discussed. Most common complications were listed in cluding cardiac arrhthymias, pneumonia, bleeding, infection, perforation which is "a hole or a tear created between the inside of the GI tract with the rest of the body," requiring IV antibiotics, surgery. was also listed as a complication but rare. If polypectomy was performed today, then post polypectomy bleeding was discussed with the patient. All questio ns were answered. Patient wishes to proceed. Angie Bear A RNP - 07/21/2017 10:25 AM PDT Critical Care Admission History and Physical [facility] Intensive Care Unit Pt. Name: Cherrie Quijano Age: 56 y.o. : 1960 Code Status: No Order Date of Admission: 07/21/2017 Primary Care Physician: No Physician on file Attending: Zoraida Mix DO Subjective Chief Concern: Status epilepticus in the setting of severe hyponatremia History of Present Illness: Ms. Quijano is a 56 year old woman with a past medical history of GERD, depression, anxie ty and dysphagia, who was transferred to [facility] ICU today from [place] for status epilepti cus (3 generalized seizures without return to baseline), in the setting of severe hyponatrem ia. She had been undergoing a bowel prep in anticipation of EGD today for dysphagia evaluat ion. She got up to go to the bathroom, when her heard her moan and he went to [facility] -- she then had a seizure lasting about a minute. EMT witnessed a second seizure, an d she had a third seizure in the ER. She was given Ativan and 100 ml of 3% hypertonic salin e -- her Na went from 111 to 114. She is now at in the ICU. ROS is unobtainable as she is currently non-verbal. History is taken from the chart. Review of Systems: Review of Systems Unable to perform ROS: Patient nonverbal Past Medical History: Past Medical History: Diagnosis Date Anxiety Depression Dysphagia 04/21/2017 GERD (gastroesophageal reflux disease) Past Surgical History: Past Surgical History: Procedure Laterality Date VEIN SURGERY Social History: Social History Social History Marital status: Single Spouse name: N/A Number of children: N/A Years of education: N/A Social History Main Topics Smoking status: Former Smoker Types: Cigarettes Smokeless tobacco: Never Used Comment: smoked socially when she drank Alcohol use No Drug use: No Sexual activity: Not Asked Other Topics Concern None Social History Narrative None Family History: Family History Problem Relation Age of Onset Family history unknown: Yes Allergies: No Known Allergies Home medications: Prescriptions Prior to Admission Medication Sig Dispense Refill ALPRAZolam (XANAX) 0.25 mg tablet Take 0.25 mg by mouth 3 times daily as needed for Anx iety. 1/2 tablet in the morning, 1/2 tablet midday and full tablet at night Black Cohosh 200 MG CAPS Take 200 mg by mouth Daily. (Patient taking differently: Take 540 mg by mouth Daily.) Cholecalciferol (VITAMIN D3 PO) CAPS, take 5000 units daily by mouth omeprazole (PRILOSEC) 20 mg capsule Take 1 capsule by mouth 2 times daily (before meals ). 30 minutes before breakfast and dinner. 180 capsule 3 ondansetron (ZOFRAN) 4 mg tablet Take 1 tablet by mouth See Admin Instructions. If naus ea with prep. Stop prep, take 1 tab by mouth,wait 30 min, restart prep may repeat 2 tablet 0 sodium sulfate-potassium sulfate-magnesium sulfate (SUPREP BOWEL PREP KIT) oral solutio n Take 177 mLs by mouth See Admin Instructions. Take one kit, first dose at 4pm July 20, s econd dose at 9pm July 20. 2 Bottle 0 UNKNOWN TO PATIENT Take 1 capsule by mouth nightly as needed. Leg Cramp Supplement Objective Vitals Current Average / Min / Max Temp 37.4 C (99.3 F) Temp Min: 36.2 C (97.2 F) Max: 37.4 C (99.3 F) BP 106/63 BP Min: 89/62 Max: 196/155 HR 98 Pulse Av.8 Min: 70 Max: 100 RR (!) 32 Resp Av.7 Min: 17 Max: 34 Sats 97 % SpO2 Min: 91 % Max: 100 % Weight 86.3 kg (190 lb 4.1 oz) Admit: 86.3 kg (190 lb 4.1 oz) Cardiac Rhythm: SR BMI: Body mass index is 33.7 kg/m. Oxygen Requirements: SpO2: 97 % on RA Physical Exam: General appearance: no distress, well developed, obese, restless Eyes: PERRL, sclera clear ENT: moist oral membranes Resp: Clear to auscultation bilat, no adventitious sounds Cardiac: RRR without murmur, rub, gallop Abdomen/GI: soft, round, non-tender to palpation /renal: BU with clear yellow urine MSK: no obvious malformation, moving all extremities, 1+ BLE edema Vascular: 2+ pulses Skin: pale Neurologic: awake, non-verbal, no command following, restless Lab Data: Recent Labs Lab 07/21/17 0327 WBC 9.0 HGB 11.0* HCT 32.1* Recent Labs Lab 07/21/17 0649 07/21/17 0503 07/21/17 0327 NA 114* 112* 111* K 3.1* 2.9* 3.2* CL 85* 82* 82* CO2 19* 19* 16* BUN 1* 2* 2* CREA 0.56* 0.63 0.64 CALCIUM 7.8* 7.0* 7.5* Recent Labs Lab 07/21/17 0601 BEART -2.9* Imaging: no radiologic imaging I personally reviewed all relevant chart notes, imaging tests, laboratory results and nicol ngs. Active Hospital Problem List: Principal Problem: Hyponatremia Active Problems: Seizure Acute metabolic encephalopathy Assessment and Plan 56 year old woman with depression and anxiety, GERG, undergoing bowel prep for EGD to [facility] er evaluate her recent issues with dysphagia, admitted for provoked seizures in the setting of severe hyponatremia. Today's plan: 1. Slow Na replacement 2. Electrolyte monitor/replace 3. Serial labs 4. NPO for now Severe acute hyponatremia, hypovolemic Urine osmo: 94 (low) Serum osmo: 238 Urine Na: 32 Urine Cr: TSH; 7.12 (elevated) --> serum Na Q 4 --> slow Na replacement, not > 8 mEq/ 24 hours --> IVF after review of repeat labs Status epilepticus, provoked 2/2 hyponatremia No further seizures with Ativan --> Seizure precautions --> Ativan prn --> Neuro consult prn Acute metabolic encephalopathy Combination post-ictal state and hyponatremia Hypomagnesemia: 1.2 on admit Replace per protocol Hypothyroidism, mild TSH 7.12 --> check free T4 Dysphagia Originally planned for EGD and colonoscopy this am (dysphagia and colon ca screen) Has already seen ENT, now GI w/u NPO for now Code Status: FC Family Discussion: No family at bedside at this time. Advanced directives were discussed or documented no The following conditions contribute to complex, high-level decision-making and to the high probability of acute, clinically significant deterioration: given severe acute hyponatremia, status epilepticus and acute encephalopathy I spent a total of 40 minutes personally providing critical care including formulating a pl an for the day, independent of any time spent teaching or performing any separately billable procedures. I expect this patient will be hospitalized for greater than 2 midnights. I expect the post-hospital plan to be determined once additional information is obtained. Electronically signed by: KELLY Ponce, 07/21/2017, 10:30 Associated attestation - Zoraida Marie DO - 07/21/2017 5:31 PM PDTAttending physi deedee assessment: I have seen and examined the patient and performed all critical aspects of the history and physical exam. I personally reviewed all pertinent imaging, tests, tracings, hemodynamics, ventilator settings and medications. I discussed the care plan with the SHOVEL ENGINEER and with nursing and other ancillary services during multidisciplinary rounds. I agree with the SHOVEL ENGINEER's note above with the following corrections and/or updates: S: Pt just back from [place]. Writhing in bed, tracks but does not respond to questions. SO at b edside. Notes that she has had 25lb wt loss since March due to difficulty swallowing. She has only been taking in liquids. She started prep yesterday afternoon/evening and finished aroun d 1-2 am. Around midnight she had severe thirst and drank "a ton" of clear soda and water. H e then found her seizing in bathroom. Lately pt has not been confused, dizzy, falling, unsta ble or drinking sig water. She stopped taking most of her pills because she thought they wou ld get stuck in her throat. O: Writhing in bed, moving all 4 extremities equally and purposefully. Does not follow comm ands. FUNMI. Lungs CTA. Abd soft. Rash on L arm in antecubital fossa. A/P: Severe symptomatic hyponatremia- suspect acute hypotonic hypovolemic hyponatremia given bow el prep and huge H20 consumption overnight. Unfortunately do not have recent Na for baseline value but suspect she lives within normal range. No seizures since OSH (she received 200cc 3% there), less likely to have ongoing sz now that Na >120. Na continued to climb beyond 120 to 125 despite D5 at 100, likely secondary to normal kidney function. Given that this is mo st likely acute and she is severely symptomatic can more safely accept a more rapid correcti on than 8mmol/24 hours but would like to remain cautious and curb rate of correction if poss ible to get closer to goal of 8mmol/24. Will continue D5 at current rate and add desmopressi n. If Na higher/unchanged on next check then will need to increase rate of D5 to get closer to goal rate of correction. Seizures- secondary to above Acute encephalopathy- in setting of severe hypoNa and likely post ictal state Dysphagia- continue PPI, will need endoscopy this admi Microcytic anemia- with recent wt loss. Agree with upper/lower endoscopy this admission. The following conditions contribute to complex, high-level decision-making and to the high probability of acute, clinically significant deterioration: Acute encephalopathy secondary to severe symptomatic hyponatremia with seizures I spent a total of 25 minutes personally providing critical care and formulating a plan for the day, independent of any time spent teaching or performing any separately billable proce dures. Electronically signed by: Zoraida Mix DO 07/21/2017 17:18 documented in this encounter Consult Notes Elise Gutierrez, RD - 07/23/2017 3:18 PM PDTAssociated Order(s): IP CONSULT TO NUTRITIO N SERVICES; IP CONSULT TO NUTRITION SERVICESCLINICAL NUTRITION NUTRITION PROBLEMS: 1. Severe protein calorie malnutrition related to inadequate intake 2/2 acute illness as e videnced by 19% unintentional weight loss over the past 4 months, PO intake meeting <75% of estimated needs for > 1 month 2. Chewing and/or swallowing difficulty related to dysphagia as evidenced by inability to t olerate solid foods > 1 month RECOMMENDATIONS: 1. If diet unable to be safely advanced and TF desired - Initial: Fibersource HN @ 25 ml/hr and advance as tolerated to 45 ml/hr - Goal: Fibersource HN @ 60 ml/hr 2. Please Order - 300 mg IV Thiamin x 3 days - Multivitamin w/ minerals once diet advanced INTERVENTIONS: 1. Will monitor PO intake for adequacy and offer nutritional supplements or snacks prn. Patient is a 56 y.o. female admitted on 07/21/2017 with Dysphagia, unspecified type [R13.10] . Reason For Assessment: physician consult ASSESSMENT: Met w/ Pt and boyfriend. Currently NPO and awaiting EGD. Speech therapy following and bhavna l complete assessment once Pt back from procedure. Nutrition History Obtained? Yes (completed: 07/23) Obtained from Patient Unintentional weight changes? Yes. Stated that she has lost ~ 40 lbs since May Change in nutritional intake? Yes, Has only been able to tolerate liquids and pureed foods d/t swallowing difficulty since the end of March. Foods included: Yogurt, shakes, soups, pud ding. Stated that she would only eat very small amounts. Usual intake pattern: Prior to current illness was eating 3 meals daily on general diet Chewing and swallowing difficulties COMPLIANCE REPRESENTATIVE? Yes Nutritional supplements? Yes, Tried to drink 2 Boost per day Functional changes? No Nutrition Focused Physical Exam Completed? Deferred (reason: Per Pt request) Moderate tem poral depression and protruding clavicle per visual assessment Significant Nutrition History And Events: X ANTHROPOMETRICS: Height: 160 cm (5' 3") Admit Weight: 75.6 kg (166 lb 10.7 oz) Admit Weight Method: measured (Standing) Pertinent Weight Changes This Admission: X Body mass index is 29.51 kg/m.(based on estimated dry wt: 75.6 kg) [place] Body Weight (IBW), Female: 52.4 kg (115 lb 8.3 oz) Usual Body Weight: 93 kg (205 lb); % Usual Body Weight: 81 Weight History Per Epic Records: 05/08/2011 88.451 kg 01/30/2016 88.905 kg 02/03/2017 93.622 kg 06/10/2017 84.641 kg ESTIMATED NEEDS: Weight Used For Calculations: 75.6 kg (166 lb 10.7 oz) Energy Calorie Requirements: 1600 - 1850 (1321 x 1.2 - 1.4 ) Range Gm Protein (gm): 80 - 105 (1.5 - 2.0 w/ IBW) Fluid Requirements: 1800 (1 ml/kcal) NUTRITIONAL INTAKE: For your reference, current, active order is: Diet NPO; strict NPO; Effective Midnight On Enteral Nutrition? No On Parenteral Nutrition? No IVF: None ADDITIONAL FACTORS AFFECTING NUTRITION ASSESSMENT: Food Allergies: NKFA stated by Patient Significant Active Wounds: None Pertinent Labs: Na - 131 BUN - 6 Pertinent Medications: Humalog, Protonix, Miralax Pertinent Past Medical History: Anxiety, GERD, Dysphagia Pertinent Procedures This Admit: 07/23: EGD --> In process MONITORIN. Will monitor diet tolerance and adequacy of PO intake, weight, labs, hydration status a nd stooling patterns Elise Gutierrez RD [id number] DATE/TIME: 07/23/2017 15:19 Treva Mark RN - 07/23/2017 6:12 AM PDTAssociated Order(s): IP CONSULT TO IV TEAMPrevue ultrasound used to insert L forearm PIV. Bowen Quarles RN, IVTElectronically signed by Treva Quarles RN at 0 07/23/2017 6:13 AM Delma De León RN - 07/21/2017 9:43 PM PDTAssociated Order(s): IP CO NSULT TO IV TEAMGot to room. Nurse states a nurse from the unit was able to restart PIV, IV therapy not needed docum ented in this encounter Miscellaneous Notes Plan of Care - Savannah Marin RN - 07/25/2017 2:29 PM PDT Problem: Patient Care Overview (Adult) Goal: Care Team Goals & Evaluation PROBLEM-RELATED GOALS: Nutrition: Patient to achieve baseline nutrition by discharge date 07/26/17 Confusion Acute. Patient will: a) be kept safe b) have cognitive/functional impairments minimized+ by 07/27/17 Seizure disorder: Patient will have no seizure activity by discharge 07/27/17 Pressure Ulcer Risk. A) Patient's skin will remain intact. B) Patient will understand risk factors, signs, and symptoms related to pressure ulcer risk by...07/27/17 Fall Risk Goal: Patient will A: Use call light or ask for help when out of bed or unstable on their feet and B. Will remain free from fall through anticipated discharge date of 7 STRATEGY TO ACHIEVE GOALS: Nutrition: Npo until swallow evaluation. Confusion: Monitor NA labs and for signs of confusion Pressure: Encourage turns and use call hollis for assist. Fall Risk: Up with one assist to bathroom. Use call hollis for staff assistance. RESTRAINT-RELATED GOALS: STRATEGIES TO ACHIEVE RESTRAINT GOALS: Outcome: Adequate for Discharge Date Met: 07/25/17 Goal Evaluation: 7N Nursing Progress Note Room #722/722-02 ISO: None Item for field service supervisor Comments Shift Summary A+O. Pleasant. Taking in [facility] altered diet w/o difficulty. Continuing on 2, 000cc fluid restriction. Skin intact with bruises. Up independently. Discharge instructions explained and given to the patient and , both expressed understanding. Instructed to f/u with primary MD and ask for Rx for outpatient physical and occupational therapy. Instruc yossi to notify DMV of seizures. Belongings packed and the patient is dressed. WC transport no tified. To discharge to home with . Dx/Tx: Hyponatremia; Hyponatremia Code Status: Full Code NAC Turn [] Incontinent [] 1:1 Feeding [] Oxygen Delivery RA [x] NC [] Open Mask [] Non-Rebreather [] cpa p/bipap [] HHFNC [] V60/Vision [] Vent [] Pain Management:: IV Access: PIV [] PICC [] Port [] CVC [] HD [] Drains/Devices/Skin Jermaine Score: 20 Active Drains No matching active lines, drains, or airways Active Wounds/Incisions/Pressure Ulcers No matching active lines, drains, or airways [] N/A [] Chest Tube [] NG [] RAMO [] Pigtail [] WV [] HV Safety: TeleSitter Yes: [] No: [x] Sitter Yes: [] No: [x] Restraints Yes: [] No: [x] Dixon: [x] Voiding [] BU Insert Date: D/C Date: Active Urinary Caths No matching active lines, drains, or airways Last bowel movement: Stool Occurrence: 1 (07/23/17 1400) Last Bowel Movement : 07/23/17 (07/23/17 1939) Active Gtt: Mentation/CAM +/- CAM Score: no Diet: Active Orders Diet Diet general; dysphagia mechanical; Effective Now NG/OG/PEG Active NG/OG/PEGs No matching active lines, drains, or airways Therapy Involved? (PT/OT/ST/RT) Yes: [x] No: [] Type: PT [x] OT [x] ST [] RT [] Vitals: 07/24/17 0800 07/24/17 1522 07/24/17 2337 07/25/17 0800 BP: 110/63 119/68 117/73 120/66 Pulse: 89 79 79 82 Resp: 16 16 16 18 Temp: 36.7 C (98 F) 36.9 C (98.4 F) 36.8 C (98.3 F) 37.1 C (98.8 F) TempSrc: Temporal Temporal Oral Oral SpO2: 96% 94% 95% 96% Weight: Height: Component Value Date/Time POCGLU 119 (H) 07/24/2017 0844 POCGLU 124 (H) 07/24/2017 0609 POCGLU 115 (H) 07/23/2017 2051 POCGLU 120 (H) 07/23/2017 1708 Items to address 1:1 at bedside report: 1. Anticipated needs next 1-2 hours: ? Time sensitive labs next draw? ? PTT for heparin? ? Critical lab results to be called on? ? Gtt rate and adjustment times 2. Goals to progress towards discharge 3. MD Communication (pending/call needed?) lan of [facility] Nupur Padilla RN - 07/25/2017 2:26 PM PDTMet with patient to discuss the Hospitalist shelley pfeiffer in their care. Confirmed PCP as Loi Macdonald Sent H&P to PCP-notified patient that this w as done. Patient requested that PCP appointment be scheduled by herself . Patient states no concerns about transportation to hospital follow up appointments. Made patient aware that my self or one of my colleagues would be calling them at home a day or two after discharge, to check in and see how they are doing. Patient verified understanding, and states the best num chantel to reach at after discharge is [phone]. lan of Geoffrey Hugo Olivares OT - 07/25/2017 1:36 PM PDT Problem: Patient Care Overview (Adult) Goal: Care Team Goals & Evaluation PROBLEM-RELATED GOALS: Nutrition: Patient to achieve baseline nutrition by discharge date 07/26/17 Confusion Acute. Patient will: a) be kept safe b) have cognitive/functional impairments minimized+ by 07/27/17 Seizure disorder: Patient will have no seizure activity by discharge 07/27/17 Pressure Ulcer Risk. A) Patient's skin will remain intact. B) Patient will understand risk factors, signs, and symptoms related to pressure ulcer risk by...07/27/17 Fall Risk Goal: Patient will A: Use call light or ask for help when out of bed or unstable on their feet and B. Will remain free from fall through anticipated discharge date of 7 STRATEGY TO ACHIEVE GOALS: Nutrition: Npo until swallow evaluation. Confusion: Monitor NA labs and for signs of confusion Pressure: Encourage turns and use call hollis for assist. Fall Risk: Up with one assist to bathroom. Use call hollis for staff assistance. RESTRAINT-RELATED GOALS: STRATEGIES TO ACHIEVE RESTRAINT GOALS: Goal Evaluation: Occupational Therapy Treatment Treatment Note Summary: OT tx completed this pm. Completed MED box to determine pt's ability to follow an d complete medication administration. Pt scored a 5, only needing general cues for correctio n on 2 medications. Indicated to spouse and pt to complete medications together at home, to ensure no mistakes occur. Completed ACLs to determine functional cognition. Pt scored a 4.6 indicating may be home alone, but needs daily check ins. This score indicates that pt should not drive. Informed Pt d/c recommendations being home c/ frequent check ins, and OP OT for further driving evaluation and tx. Occupational Therapy Discharge Recommendations are: Recommended discharge disposition: home with assist Post discharge occupational therapy recommendation: outpatient therapy Equipment Recommendations: none Equipment Issued: none Occupational Therapy will follow Cherrie Quijano 4 times/wk until discharge from therap or discharged from the hospital. Planned Interventions include . General Observations: Pt was sitting EOB, and agreebale to OT this pm. Precautions: falls, seizures LUE WB status: RUE WB status: LLE WB status: RLE WB status: Pertinent History of Current Problem: Pt is a 56 year old female with hx of depression/anxi ety, new dysphagia (01/2017) who presented to [facility] with seizures and encephalopathy in [facility] of severe hyponatremia. Social History: Pt resides in: , with significant other, and accessibility barriers. Equipment available includes: . 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 Bed Mobility Supine to Sit Level of [place]: independent Assistive Device: none Sit to Supine Level of [place]: independent Assistive Device: none Transfers Sit to Stand Level of independence: supervised Assistive Device: none Stand to Sit Level of independence: supervised Assistive Device: none Toilet Level of [place]: Assistive Device: Walk-in Shower Level of [place]: Assistive Device: ADL Bathing Level of [place]: Assistive Device: Position: Upper body dressing Level of [place]: Assistive Device: Position: Lower body dressing Level of [place]: stand by assist Assistive Device: none Position: sitting Toilet training Level of [place]: Assistive Device: Position: Grooming Level of [place]: stand by assist Assistive Device: none Position: standing Eating/self-feeding Level of [place]: Assistive Device: Position: IADL: Functional Activity Tolerance: Good Patient Goals: OT Goal Review Date Flowsheet Row Most Recent Value STG Review Date 07/31/17 at 07/24/2017 1328 Additional Goals #1 OT Flowsheet Row Most Recent Value STG Status continued at 07/25/2017 1235 STG Pt will complete MOCA WNL at 07/24/2017 1328 Additional Goals #2 OT Flowsheet Row Most Recent Value STG Status continued at 07/25/2017 1235 STG Pt will complete further driving evaluation and score WNL at 07/24/2017 1328 Additional Goals #3 OT Flowsheet Row Most Recent Value STG Status met at 07/25/2017 1235 STG Pt will complete med box with score >5.0 at 07/24/2017 1328 Electronically signed by: Hugo Mcelroy OT 07/25/2017 13:36 lan of Care - Tasha Brock RN - 07/25/2017 10:38 AM PDTFormatting of this note might be different fr om the original. Problem: Patient Care Overview (Adult) Goal: Care Team Goals & Evaluation PROBLEM-RELATED GOALS: Nutrition: Patient to achieve baseline nutrition by discharge date 07/26/17 Confusion Acute. Patient will: a) be kept safe b) have cognitive/functional impairments minimized+ by 07/27/17 Seizure disorder: Patient will have no seizure activity by discharge 07/27/17 Pressure Ulcer Risk. A) Patient's skin will remain intact. B) Patient will understand risk factors, signs, and symptoms related to pressure ulcer risk by...07/27/17 Fall Risk Goal: Patient will A: Use call light or ask for help when out of bed or unstable on their feet and B. Will remain free from fall through anticipated discharge date of 7 STRATEGY TO ACHIEVE GOALS: Nutrition: Npo until swallow evaluation. Confusion: Monitor NA labs and for signs of confusion Pressure: Encourage turns and use call hollis for assist. Fall Risk: Up with one assist to bathroom. Use call hollis for staff assistance. RESTRAINT-RELATED GOALS: STRATEGIES TO ACHIEVE RESTRAINT GOALS: Goal Evaluation: Nursing Handoff Note Room # 722/722-02 None Admitting: Zoraida Lemon Parkinson* Attending: Catrachita Moore MD Item for field service supervisor Comments Shift Summary Shift note: No notable pt changes. Q6 sodium checks have been d/c'd. Pt to be d/c today, still awaiting another evaluation before clear to go. Pt ML. Gait is ataxic on right side, w hich is baseline for pt. Pt seems to have decreased swelling from tongue bite, able to speak a little clearer. Pt to follow up with PCP. Denies any pain, and is excited to go home. Boy friend at bedside,will be driving home. Diagnosis/Treatment Hyponatremia OR/Procedure Time Date of Surgery 07/23/2017 2 Days Post-Op Code Status Full Code Ritter Fall Risk Ritter Fall Risk Level: High Neuro/Mentation/CAM +/- Orientation: Oriented X 4 CAM Score: no Pain Management: Denies Anesthesia [] Spinal / [] Exparel / [] General Anesthesia / [] Nerve Block Respiratory/Oxygen 2liters/minute room air [x] Room Air / [] O2 / [] Capnography Vioptics/Drains Active Drains No matching active lines, drains, or airways GI/Diet Active Orders Diet Diet general; dysphagia mechanical; Effective Now Last bowel movement Stool Occurrence: 1 (07/23/17 1400) Last Bowel Movement: 07/23/17 (12/08) /Dixon Active Urinary Caths No matching active lines, drains, or airways [x] Voids / [] Incontinent / [] Straight Cath / [] Check for void Active Gtt [] IVF / [] 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 / [x] Medlocked [x] Peripheral IV / [] CVC / [] PICC / [] Port Abnormal Labs Lab Results Component Value Date WBC 7.2 07/24/2017 HGB 11.7 07/24/2017 HCT 34.9 07/24/2017 PLT 140 (L) 07/24/2017 NA 139 07/25/2017 NA 138 07/25/2017 K 4.0 07/25/2017 MG 1.9 07/24/2017 PHOS 2.9 07/24/2017 BUN 6 (L) 07/25/2017 CREA 0.60 07/25/2017 Skin Jermaine Score: 20 Mobility/HRF/WB Status Activity: [x] Independent / [] SBA / [] Min Assist / [] Mod Assist / [] Max Assist / [] Bedrest [] FWW / [] Crutches / [] Wheelchair / [] Other Weight Bearing: [] RUE / [] LUE / [] RLE / [] LLE [] As tolerated / []50% WB / [] TTWB / [] Platform / [] NWB Precautions:None Therapy Involved [] PT / [] OT / [] RT / [] Speech Therapy VTE Prophylaxis [] Pharmacological / [x] Mechanical DC Plan [x] Home / [] Home with HH / [] SNF / [] IRF / [] Other Hospital Fall Vitals: 07/24/17 0800 07/24/17 1522 07/24/17 2337 07/25/17 0800 BP: 110/63 119/68 117/73 120/66 Pulse: 89 79 79 82 Resp: 16 16 16 18 Temp: 36.7 C (98 F) 36.9 C (98.4 F) 36.8 C (98.3 F) 37.1 C (98.8 F) TempSrc: Temporal Temporal Oral Oral SpO2: 96% 94% 95% 96% Weight: Height: Component Value Date/Time POCGLU 119 (H) 07/24/2017 0844 POCGLU 124 (H) 07/24/2017 0609 POCGLU 115 (H) 07/23/2017 2051 POCGLU 120 (H) 07/23/2017 1708 No data found. lan of Care - Rona Alvarez, PT - 07/25/2017 8:58 AM PDT Problem: Patient Care Overview (Adult) Goal: Care Team Goals & Evaluation PROBLEM-RELATED GOALS: Nutrition: Patient to achieve baseline nutrition by discharge date 07/26/17 Confusion Acute. Patient will: a) be kept safe b) have cognitive/functional impairments minimized+ by 07/27/17 Seizure disorder: Patient will have no seizure activity by discharge 07/27/17 Pressure Ulcer Risk. A) Patient's skin will remain intact. B) Patient will understand risk factors, signs, and symptoms related to pressure ulcer risk by...07/27/17 Fall Risk Goal: Patient will A: Use call light or ask for help when out of bed or unstable on their feet and B. Will remain free from fall through anticipated discharge date of 7 STRATEGY TO ACHIEVE GOALS: Nutrition: Npo until swallow evaluation. Confusion: Monitor NA labs and for signs of confusion Pressure: Encourage turns and use call hollis for assist. Fall Risk: Up with one assist to bathroom. Use call hollis for staff assistance. RESTRAINT-RELATED GOALS: STRATEGIES TO ACHIEVE RESTRAINT GOALS: Physical Therapy Plan of Care Treatment Note Summary: Pt presents to session sleeping in bed; easily roused and agreeabled to session. Pt continues to need increased processing/response time as well as demonstrating decreased i nsight into deficits. She completes bed mobility and sit<>stand independently. Pt ambulates x 500' with varied SBA/supervision without any LOBs. Pt continues to demonstrate ataxic gait pattern with lateral trunk sway R>L, decreased step length L>R and significantly decreased stance time at RLE; pt reports near baseline, however with some "balance problems". Pt comp letes pathfinding tasks between various floors of hospital and able to complete all tasks wi th mild cues for recall. Completes stair training descending 20 steps using R rail and varie d SBA/supervision. Pt educated regarding safe mobility within home/community, encouraging us e of public transportation and assist within home for safety. Recommend home with assist and OP vs HH PT for RLE strengthening and balance training. Physical Therapy Discharge Recommendations are: Recommended discharge disposition: home with assist Post discharge physical therapy recommendation: home health, outpatient therapy Equipment Recommendations: other (see comments) (SPC? if pt demonstrates improved problem solving for use) Planned Interventions: balance training, bed mobility training, gait training, home exerci se program, patient/family education, manual therapy techniques, stair training, ROM (Range of Motion), postural re-education, strengthening, stretching, transfer training Recommended Frequency: other (see comments) (3-5 x week) Onset of Illness/Injury: 07/21/17 Pertinent History of Current Problem: Pt is a 56 year old female with hx of depression/anxi ety, new dysphagia (01/2017) who presented to [facility]. Impairments Found: aerobic capacity/endurance, arousal, attention, and cognition, ergonomic s and body mechanics, gait, locomotion, and balance, muscle performance General Information: Precautions: falls, seizures LUE WB status: RUE WB status: LLE WB status: RLE WB status: General Observations: Pt sleeping upon arrival, easily roused, agreeable to session Social History: Lives With: significant other Living Arrangements: # of Stairs to Enter Home: 1 ; Rail: ; # of Stairs Within Home: 14 (Split level with 7 up and 7 down with 1 rail) Additional Information: Pt reports living in split level home with 1 GEORGE; bed/bath on uppe r level and laundry is in basement; 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 Gait See summary for details Level of [place]: stand by assist, supervised Assistive Device: none Distance (feet): 500' Stairs See summary for details Number of Stairs: 20 Handrail Location: other (see comments) (R descending) Level of [place]: stand by assist, supervised Assistive Device: 1 rail Technique Used: step to step (descending) Safety Issues: weight-shifting ability decreased Impairments: strength decreased, impaired balance Transfers Sit-Stand, Level of [place]: supervised Stand-Sit, Level of [place]: supervised [id number], Assistive Device: none Safety Issues: weight-shifting ability decreased, step length decreased Impairments: impaired balance, strength decreased Bed Mobility Assistive Device: none Roll Left, Level of [place]: independent Scoot/Bridge, Level of [place]: independent Supine to Sit, Level of [place]: independent Sit to Supine, Level of [place]: independent Impairments: strength decreased, impaired balance Balance Sitting Balance: Static: good balance Sitting Balance: Dynamic: good balance Standing Balance: Static: good balance Standing Balance: Dynamic: fair balance Therapeutic Exercise Pathfinding in hallway/room x 15' Functional Endurance Good ROM L LE ROM: WFL R LE ROM: WFL; lacking 5* to neutral DF Strength L LE Strength: 4+/5 grossly R LE Strength: 3+/5 grossly All Bed Mobility Goal Flowsheet Row Most Recent Value STG Status met at 07/25/2017 0800 STG [place] Level independent at 07/25/2017 0800 STG Assistive Device none at 07/25/2017 0800 [id number]-Ynlzzk Goal Flowsheet Row Most Recent Value STG Status met at 07/25/2017 08 STG [place] Level independent at 07/25/2017 08 STG Assistive Device none at 07/25/2017 0800 All Transfers Goal Flowsheet Row Most Recent Value STG Status progressing at 07/25/2017 08 STG [place] Level independent, modified independent at 07/25/2017 08 STG Assistive Device none, cane (straight, single point) at 07/25/2017 08 Kgl-Omsdc-Irb Goal Flowsheet Row Most Recent Value STG Status met, revised at 07/25/2017 08 STG [place] Level independent at 07/25/2017 08 STG Assistive Device none at 07/25/2017 0800 Gait Goal Flowsheet Row Most Recent Value STG Status progressing, revised at 07/25/2017 08 STG [place] Level independent at 07/25/2017 08 STG Assistive Device none at 07/25/2017 0800 STG Distance (feet) 150 at 07/25/2017 0800 Stair Goal Flowsheet Row Most Recent Value STG Status progressing, revised at 07/25/2017 08 STG [place] Level modified independent at 07/25/2017 08 STG Assistive Device 1 rail at 07/25/2017 0800 STG Number of Stairs 7 at 07/25/2017 0800 Additional Goal #1 PT Flowsheet Row Most Recent Value STG Status continued at 07/25/2017 0800 STG Pt will be low fall risk according to DGI at 07/25/2017 0800 Electronically signed by: Rona Prather, PT, 07/25/2017 8:57 lan of Care - Tasha Van RN - 07/25/2017 4:03 AM PDT Problem: Patient Care Overview (Adult) Goal: Care Team Goals & Evaluation PROBLEM-RELATED GOALS: Nutrition: Patient to achieve baseline nutrition by discharge date 07/26/17 Confusion Acute. Patient will: a) be kept safe b) have cognitive/functional impairments minimized+ by 07/27/17 Seizure disorder: Patient will have no seizure activity by discharge 07/27/17 Pressure Ulcer Risk. A) Patient's skin will remain intact. B) Patient will understand risk factors, signs, and symptoms related to pressure ulcer risk by...07/27/17 Fall Risk Goal: Patient will A: Use call light or ask for help when out of bed or unstable on their feet and B. Will remain free from fall through anticipated discharge date of 7 STRATEGY TO ACHIEVE GOALS: Nutrition: Npo until swallow evaluation. Confusion: Monitor NA labs and for signs of confusion Pressure: Encourage turns and use call hollis for assist. Fall Risk: Up with one assist to bathroom. Use call hollis for staff assistance. 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 PRN dose of Xanax given. Per pt she has been taking Xanax TID, follo wing the orders under admission medications. Pt as of yesterday is on 2000ml fluid restricti on. Educated pt about drinking things like Gatorade, vegetable juice, broth etc. To keep the sodium levels up. Currently has Q6 sodium checks. ML. Pt tongue is still swollen from bitin g it during seizure, however passed swallow evaluation on 07/24/17. Pt is hoping to go home to day. Diagnosis/Treatment Hyponatremia OR/Procedure Time Date of Surgery 07/23/2017 2 Days Post-Op Code Status Full Code Ritter Fall Risk Ritter Fall Risk Level: High Neuro/Mentation/CAM +/- Orientation: Oriented X 4 CAM Score: no Pain Management: Denied other than tongue Anesthesia [] Spinal / [] Exparel / [] General Anesthesia / [] Nerve Block Respiratory/Oxygen 2liters/minute room air [x] Room Air / [] O2 / [] Capnography Vioptics/Drains Active Drains No matching active lines, drains, or airways GI/Diet Active Orders Diet Diet general; dysphagia mechanical; Effective Now Last bowel movement Stool Occurrence: 1 (07/23/17 1400) Last Bowel Movement: 07/23/17 ( 12/08 193) /Dixon Active Urinary Caths No matching active lines, drains, or airways [x] Voids / [] Incontinent / [] Straight Cath / [] Check for void Active Gtt [] IVF / [] 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 / [x] Medlocked [x] Peripheral IV / [] CVC / [] PICC / [] Port Abnormal Labs Lab Results Component Value Date WBC 7.2 07/24/2017 HGB 11.7 07/24/2017 HCT 34.9 07/24/2017 PLT 140 (L) 07/24/2017 NA 139 07/24/2017 K 3.6 07/24/2017 MG 1.9 07/24/2017 PHOS 2.9 07/24/2017 BUN 3 (L) 07/24/2017 CREA 0.54 07/24/2017 Skin Jermaine Score: 20 Mobility/HRF/WB Status Activity: [x] Independent / [] SBA / [] Min Assist / [] Mod Assist / [] Max Assist / [] Bedrest [] FWW / [] Crutches / [] Wheelchair / [] Other Weight Bearing: [] RUE / [] LUE / [] RLE / [] LLE [] As tolerated / []50% WB / [] TTWB / [] Platform / [] NWB Precautions:None Therapy Involved [] PT / [] OT / [] RT / [] Speech Therapy VTE Prophylaxis [] Pharmacological / [x] Mechanical DC Plan [x] Home / [] Home with HH / [] SNF / [] IRF / [] Other Hospital Fall Vitals: 07/24/17 0407 07/24/17 0800 07/24/17 1522 07/24/17 2337 BP: 110/63 119/68 117/73 Pulse: 89 79 79 Resp: 16 16 16 Temp: 36.7 C (98 F) 36.9 C (98.4 F) 36.8 C (98.3 F) TempSrc: Temporal Temporal Oral SpO2: 96% 94% 95% Weight: 83.1 kg (183 lb 3.2 oz) Height: Component Value Date/Time POCGLU 119 (H) 07/24/2017 0844 POCGLU 124 (H) 07/24/2017 0609 POCGLU 115 (H) 07/23/2017 2051 POCGLU 120 (H) 07/23/2017 1708 No data found. 0540: Pt still restless throughout the night, sleeping on and off. Pt stated she has too mu ch on her mind. We discussed pt "needing" to go home today. I stated that the MD would mable dewey what she needs to accomplish to D/C. Last sodium level was 138 so sodium stable. Read thr ough some notes, and upon brining in Xanax to help settle her mind, let her know that aside from the sodium pt just needed to clear therapies. Gave pt a few pieces of paper and a pen t o help get some thoughts onto paper to help ease her mind. Explained what AMA was, how that impacts payment, prescriptions etc. Pt was not happy about this and stated that "she cannot be alone here, and needs to get back to her own life". I explained that our first goal is to make sure she is medically safe. Electronically signed by: Tasha Holloway RN 07/25/2017 6:05 lan of Care - Go Hugo redding, OT - 07/24/2017 3:02 PM PDTFormatting of this note might be different fr om the original. Problem: Patient Care Overview (Adult) Goal: Care Team Goals & Evaluation PROBLEM-RELATED GOALS: Nutrition: Patient to achieve baseline nutrition by discharge date 07/26/17 Confusion Acute. Patient will: a) be kept safe b) have cognitive/functional impairments minimized+ by 07/27/17 Seizure disorder: Patient will have no seizure activity by discharge 07/27/17 Pressure Ulcer Risk. A) Patient's skin will remain intact. B) Patient will understand risk factors, signs, and symptoms related to pressure ulcer risk by...07/27/17 Fall Risk Goal: Patient will A: Use call light or ask for help when out of bed or unstable on their feet and B. Will remain free from fall through anticipated discharge date of 7 STRATEGY TO ACHIEVE GOALS: Nutrition: Npo until swallow evaluation. Confusion: Monitor NA labs and for signs of confusion Pressure: Encourage turns and use call hollis for assist. Fall Risk: Up with one assist to bathroom. Use call hollis for staff assistance. RESTRAINT-RELATED GOALS: STRATEGIES TO ACHIEVE RESTRAINT GOALS: Goal Evaluation: Occupational Therapy Plan of Care Initial Evaluation Note Summary: OT zach completed this am. PT reported concerns of functional cognition. Pt was S BA for LB dressing, toilet transfer and at sink grooming. She returned to EOB. We completed SLUMS cognition screening tool. Pt scored 21/30 indicating mild cognition deficits (26-21 mi ld, 1-20 moderate to severe). During this test, pt displayed short term memory deficits, att ention deficits, as well as executive functioning deficits. We then completed Trails A and B . This test is correlates with a persons safe ability to drive; incorporating visual scannin g, processing, attention, and execute functioning. Pt was able to complete the first portion WNL of time (1-2-3-4.....). However, on Trails B, she was unable to sequencing number to le tter sequencing (1-a-2-b-3-c.....) During this test she displayed poor processing speed, as well as poor attention often repeating her self verbally and looking to examiner for visual feedback. At this time, I informed pt of results. Also, informed pt of [place]'s driving laws following a seizure. She reported she was living in [place]. Pt was advised to call DMV in [place] and ask the steps and laws of driving following a seizure, as I did not know the l aw. I did advise her not to drive due to results of the two tests. Pt was left at EOB, mckenzie cloud informed of pt's progress. D/c recommendations pending. She may benefit from another [facility] stay and further examination. OT will continue to follow. Occupational Therapy Discharge Recommendations are: Recommended discharge disposition: other (see comments) (TBD) Post discharge occupational therapy recommendation: (TBD) Equipment Recommendations: none Equipment Issued: none Occupational Therapy will follow Cherrie Quijano 4 times/wk until [facility] from [facility] or discharged from the hospital. Planned Interventions include . General Observations: Pt was sitting EOB, willing to complete OT eval Precautions: falls, seizures LUE WB status: RUE WB status: LLE WB status: RLE WB status: Pertinent History of Current Problem: Pt is a 56 year old female with hx of depression/anxi ety, new dysphagia (01/2017) who presented to [facility] with seizures and encephalopathy in settin g of severe hyponatremia. 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 [employer]; drives; does not own any ADs; tub shower without bench x 1 grab bar; standard toilet and bed height Prior level of function: Previously ind with all ADLs and IADLs; reports relatively inactiv e aside from working as caregiver; does do mowing and yardwork; reports hx of R ankle fx wit h residual RLE weakness, walks with a limp at baseline Cognition: Speech: slurred, spontaneous, logical Orientation: oriented x 4 Arousal level: opens eyes spontaneously Behavior: calm, cooperative Follows instruction and answers questions: Personal Safety: Short & nursing home memory: Problem Solving: Vision Vision Comments: Visual Impairment: ROM comments: LUE ROM: WFL RUE ROM: wFL Strength General information: LUE: 4/5 RUE: 4/5 Sensation General Information: LUE light touch: WNL RUE light touch: WNL Coordination BUE: LUE: ; RUE: Rapid Alternating Movements: Patient Status/Goals: Reflects last filed data of patient status; may be from multiple contributors. Bed Mobility Supine to Sit Level of [place]: supervised Assistive Device: none Sit to Supine Level of [place]: supervised Assistive Device: none Transfers Sit to Stand Level of independence: stand by assist Assistive Device: none Stand to Sit Level of independence: stand by assist Assistive Device: none Toilet Level of [place]: Assistive Device: Walk-in Shower Level of [place]: Assistive Device: Balance Static Sitting: good balance Dynamic Sitting: good balance Static Standing: good balance Dynamic Standing: fair balance ADL Comments: Bathing Level of [place]: Assistive Device: Position: . Upper body dressing Level of [place]: Assistive Device: Position: Lower body dressing Level of [place]: stand by assist Assistive Device: none Position: sitting Toilet training Level of [place]: Assistive Device: Position: Grooming Level of [place]: stand by assist Assistive Device: none Position: standing Eating/self-feeding Level of [place]: Assistive Device: Position: IADL: Activity Tolerance: Good Patient Goals: OT Goal Review Date Flowsheet Row Most Recent Value STG Review Date 07/31/17 at 07/24/2017 1328 Additional Goals #1 OT Flowsheet Row Most Recent Value STG Status new at 07/24/2017 1328 STG Pt will complete MOCA WNL at 07/24/2017 1328 Additional Goals #2 OT Flowsheet Row Most Recent Value STG Status new at 07/24/2017 1328 STG Pt will complete further driving evaluation and score WNL at 07/24/2017 1328 Additional Goals #3 OT Flowsheet Row Most Recent Value STG Status new at 07/24/2017 1328 STG Pt will complete med box with score >5.0 at 07/24/2017 1328 Electronically signed by: Hugo Mcelroy OT 07/24/2017 15:00 I have reviewed the above occupational therapy plan of care and agree with the plan. lan of Care - Romie Li RN - 07/24/2017 12:43 PM PDTProblem: Patient Care Overview (Adult) Goal: Care Team Goals & Evaluation PROBLEM-RELATED GOALS: Nutrition: Patient to achieve baseline nutrition by discharge date 07/26/17 Confusion Acute. Patient will: a) be kept safe b) have cognitive/functional impairments minimized+ by 07/27/17 Seizure disorder: Patient will have no seizure activity by discharge 07/27/17 Pressure Ulcer Risk. A) Patient's skin will remain intact. B) Patient will understand risk factors, signs, and symptoms related to pressure ulcer risk by...07/27/17 Fall Risk Goal: Patient will A: Use call light or ask for help when out of bed or unstable on their feet and B. Will remain free from fall through anticipated discharge date of 7 STRATEGY TO ACHIEVE GOALS: Nutrition: Npo until swallow evaluation. Confusion: Monitor NA labs and for signs of confusion Pressure: Encourage turns and use call hollis for assist. Fall Risk: Up with one assist to bathroom. Use call hollis for staff assistance. RESTRAINT-RELATED GOALS: STRATEGIES TO ACHIEVE RESTRAINT GOALS: Goal Evaluation: pt is s/p seizure possibly related to hyponatremia secondary to being on clear liquids and drank a bowel prep to be scoped, pt is a/a/ox4 but needed cues for place,physical therapy r ecommended snf placement,pt is ambulatory and gait is slightly unsteady.q 6 hr na,last is 13 8 lan of Care - Rona Prather PT - 07/24/2017 12:00 PM PDT Problem: Patient Care Overview (Adult) Goal: Care Team Goals & Evaluation PROBLEM-RELATED GOALS: Nutrition: Patient to achieve baseline nutrition by discharge date 07/26/17 Confusion Acute. Patient will: a) be kept safe b) have cognitive/functional impairments minimized+ by 07/27/17 Seizure disorder: Patient will have no seizure activity by discharge 07/27/17 Pressure Ulcer Risk. A) Patient's skin will remain intact. B) Patient will understand risk factors, signs, and symptoms related to pressure ulcer risk by...07/27/17 Fall Risk Goal: Patient will A: Use call light or ask for help when out of bed or unstable on their feet and B. Will remain free from fall through anticipated discharge date of 7 STRATEGY TO ACHIEVE GOALS: Nutrition: Npo until swallow evaluation. Confusion: Monitor NA labs and for signs of confusion Pressure: Encourage turns and use call hollis for assist. Fall Risk: Up with one assist to bathroom. Use call hollis for staff assistance. RESTRAINT-RELATED GOALS: STRATEGIES TO ACHIEVE RESTRAINT GOALS: [facility] Physical Therapy OPIB Plan of Care Initial Evaluation, Treatment Note Patient Name: Cherrie Quijano Onset of Illness/Injury: 07/21/17 Start of Care/Start of Certification Date: 07/24/2017 End of Certification Date: 08/23/2017 Summary: Pt is a 56 year old female with hx of depression/anxiety, new dysphagia (01/2017) who presented to [facility] with seizures and encephalopathy in setting of severe hyponatremia. Pt presents to PT eval resting in bed with SO at bedside. 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 Pt Ind with A DLs and IADLs prior to admit. Pt reports chronic weakness at RLE as well as "walking with a limp" at baseline. Pt appears to demonstrate decreased insight into impaired as well as demo nstrating poor problem solving during session. Light touch sensation intact at BLEs. Strengt h grossly 3+/5 at RLE and 4+/5 at LLE. ROM WFL with exception of R ankle DF (lacking 5* to n eutral). Completes bed mobility with supervision, sit<>stand with SBA, and ambulates 2 x 150 ' with varied levels of assist SBA/Reginald due to LOB x 2 laterally. Gait characterized by late ral trunk sway R>L, decreased step length L>R and significantly decreased stance time at RLE . Trialed SPC, however with pt demonstrating inability to sequence with RLE. Completes stair s x 8 steps with L ascending rail and step to gait pattern (ascend with LLE). Pt appears to be below baseline as evidenced by decreased insight into deficits and impaired balance. Sina mmend 24/ assist at d/c with HH PT to follow vs. SNF for continued therapies prior to d/c h ome where pt will need to be fully independent. Physical Therapy Discharge Recommendations are: Recommended discharge disposition: home with assist, [facility]ci facility Post discharge physical therapy recommendation: ongoing high intensity therapy, able to to lerate 3 hours of therapy/day, pt is motivated participant, minimum 5 days of therapy/week, family involved/supportive, will benefit from structured setting, home health, other (see co mments) (pending cog screen) Equipment Recommendations: other (see comments) (SPC? if pt demonstrates improved problem solving for use) Planned Interventions: balance training, bed mobility training, gait training, home exerci se program, patient/family education, manual therapy techniques, stair training, ROM (Range of Motion), postural re-education, strengthening, stretching, transfer training Recommended Frequency: other (see comments) (3-5 x week) Onset of Illness/Injury: 07/21/17 Pertinent History of Current Problem: Pt is a 56 year old female with hx of depression/anxi ety, new dysphagia (01/2017) who presented to [facility] with seizures and encephalopathy in [facility] g of severe hyponatremia. Impairments Found: arousal, attention, and cognition, gait, locomotion, and balance, motor function, muscle performance, ROM General Information: Precautions: falls, seizures LUE WB status: RUE WB status: LLE WB status: RLE WB status: General Observations: Pt presents to session resting in bed; SO at bedside; agreeable to s ession Social History: Lives With: significant other Living Arrangements: # of Stairs to Enter Home: 1 ; Rail: ; # of Stairs Within Home: 14 (Split level with 7 up and 7 down with 1 rail) Additional Information: Pt reports living in split level home with 1 GEORGE; bed/bath on uppe r level and laundry is in basement; 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 Gait See summary for details Level of [place]: stand by assist, minimal assist (75% patient effort) Assistive Device: cane (straight, single point), 2 wheeled walker (FWW), none Distance (feet): 2 x 150' Stairs See summary for details Number of Stairs: 8 Handrail Location: left side (ascending) Level of [place]: stand by assist Assistive Device: 1 rail Technique Used: step to step (ascending), step to step (descending) Safety Issues: weight-shifting ability decreased Impairments: strength decreased, impaired balance Transfers Sit-Stand, Level of [place]: stand by assist Stand-Sit, Level of [place]: stand by assist Krw-Muniz-Ayu, Assistive Device: none, cane (straight, single point) Safety Issues: step length decreased, sequencing ability decreased, weight-shifting ability decreased Impairments: impaired balance, strength decreased Bed Mobility Assistive Device: none Roll Left, Level of [place]: supervised Scoot/Bridge, Level of [place]: supervised Supine to Sit, Level of [place]: supervised Sit to Supine, Level of [place]: supervised Impairments: strength decreased, impaired balance Balance Sitting Balance: Static: good balance Sitting Balance: Dynamic: good balance Standing Balance: Static: good balance Standing Balance: Dynamic: fair balance Functional Endurance Fair-good ROM L LE ROM: WFL R LE ROM: WFL; lacking 5* to neutral DF Strength L LE Strength: 4+/5 grossly R LE Strength: 3+/5 grossly All Bed Mobility Goal Flowsheet Row Most Recent Value STG Status new at 07/24/2017 1100 STG [place] Level independent at 07/24/2017 1100 STG Assistive Device none at 07/24/2017 1100 Iohoqz-Jno-Nclzrc Goal Flowsheet Row Most Recent Value STG Status new at 07/24/2017 1100 STG [place] Level independent at 07/24/2017 1100 STG Assistive Device none at 07/24/2017 1100 All Transfers Goal Flowsheet Row Most Recent Value STG Status new at 07/24/2017 1100 STG [place] Level independent, modified independent at 07/24/2017 1100 STG Assistive Device none, cane (straight, single point) at 07/24/2017 1100 Mwy-Umfis-Fsg Goal Flowsheet Row Most Recent Value STG Status new at 07/24/2017 1100 STG [place] Level independent, modified independent at 07/24/2017 1100 STG Assistive Device none, cane (straight, single point) at 07/24/2017 1100 Gait Goal Flowsheet Row Most Recent Value STG Status new at 07/24/2017 1100 STG [place] Level independent, modified independent at 07/24/2017 1100 STG Assistive Device none, cane (straight, single point) at 07/24/2017 1100 STG Distance (feet) 150 at 07/24/2017 1100 Stair Goal Flowsheet Row Most Recent Value STG Status new at 07/24/2017 1100 STG [place] Level modified independent at 07/24/2017 1100 STG Assistive Device 1 rail, cane (straight, single point) at 07/24/2017 1100 STG Number of Stairs 7 at 07/24/2017 1100 Additional Goal #1 PT Flowsheet Row Most Recent Value STG Status new at 07/24/2017 1100 STG Pt will be low fall risk according to DGI at 07/24/2017 1100 Medicare Functional Limitation Reporting: Current Status [id number] Mobility walking and moving around functional limitation, current sta tus, at therapy episode outset and at reporting intervals CK At least 40 percent but less th an 60 percent impaired, limited or restricted Goal Status [id number] Mobility walking and moving around functional limitation, projected goal status CI At least 1 percent but less than 20 percent impaired, limited or restricted Outcome Measures Tools: [facility] 6-Clicks Form Justification of Severity Ratin/24 Electronically signed by: Rona Prather, PT, 07/24/2017 12:00 lan of Care - Tirpp Hernandez RN - 07/24/2017 4:13 AM PDTFormatting of this note might be different from the origi nal. Problem: Patient Care Overview (Adult) Goal: Care Team Goals & Evaluation PROBLEM-RELATED GOALS: Nutrition: Patient to achieve baseline nutrition by discharge date 07/26/17 Confusion Acute. Patient will: a) be kept safe b) have cognitive/functional impairments minimized+ by 07/27/17 Seizure disorder: Patient will have no seizure activity by discharge 07/27/17 Pressure Ulcer Risk. A) Patient's skin will remain intact. B) Patient will understand risk factors, signs, and symptoms related to pressure ulcer risk by...07/27/17 Fall Risk Goal: Patient will A: Use call light or ask for help when out of bed or unstable on their feet and B. Will remain free from fall through anticipated discharge date of 7 STRATEGY TO ACHIEVE GOALS: Nutrition: Npo until swallow evaluation. Confusion: Monitor NA labs and for signs of confusion Pressure: Encourage turns and use call hollis for assist. Fall Risk: Up with one assist to bathroom. Use call hollis for staff assistance. 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 field service supervisor Comments Shift Summary A/O x4, VSS, Na+ check 134 @midnight and 135 @0340, colonoscopy and EGD not done d/t angina symptoms prior to anesthesia, swallow evaluation passed and currently on ge neral diet with thins, at bedside, tongue swollen with small lacerations d/t seizure prior to arrival, L PIV flushing with no issues Dx/Tx: Hyponatremia; Hyponatremia Code Status: Full Code NAC Turn [] Incontinent [] 1:1 Feeding [] Oxygen Delivery RA [x] NC [] Open Mask [] Non-Rebreather [] cpa p/bipap [] HHFNC [] V60/Vision [] Vent [] liters concentration Pain Management:: IV Access: PIV [x] PICC [] Port [] CVC [] HD [] Drains/Devices/Skin Jermaine Score: 20 Active Drains No matching active lines, drains, or airways Active Wounds/Incisions/Pressure Ulcers No matching active lines, drains, or airways [x] N/A [] Chest Tube [] NG [] RAMO [] Pigtail [] WV [] HV Safety: TeleSitter Yes: [] No: [x] Sitter Yes: [] No: [x] Restraints Yes: [] No: [x] Dixon: [x] Voiding [] BU Insert Date: D/C Date: Active Urinary Caths No matching active lines, drains, or airways Last bowel movement: Stool Occurrence: 1 (07/23/17 1400) Last Bowel Movement : 07/23/17 (07/23/17 193) Active Gtt: Mentation/CAM +/- CAM Score: no Diet: Active Orders Diet Diet general; Effective Now NG/OG/PEG Active NG/OG/PEGs No matching active lines, drains, or airways Therapy Involved? (PT/OT/ST/RT) Yes: [] No: [] Type: PT [] OT [] ST [] RT [] Vitals: 07/23/17 1530 07/23/17 1930 07/23/17 2227 07/24/17 0009 BP: 129/69 120/69 127/75 Pulse: 75 89 76 Resp: 16 16 16 Temp: 37.4 C (99.4 F) 37.4 C (99.3 F) 37.2 C (98.9 F) 37.2 C (98.9 F) TempSrc: Temporal Oral Oral Oral SpO2: 99% 97% 97% Weight: Height: Component Value Date/Time POCGLU 115 (H) 07/23/2017 2051 POCGLU 120 (H) 07/23/2017 1708 POCGLU 142 (H) 07/23/2017 1151 POCGLU 101 (H) 07/23/2017 0504 Items to address 1:1 at bedside report: 1. Anticipated needs next 1-2 hours: ? Time sensitive labs next draw? ? PTT for heparin? ? Critical lab results to be called on? ? Gtt rate and adjustment times 2. Goals to progress towards discharge 3. MD Communication (pending/call needed?) A lan of Care - Jr Gaming RN - 07/23/2017 6:53 PM PDTProblem: Patient Care Overview (Adult) Goal: Care Team Goals & Evaluation PROBLEM-RELATED GOALS: Nutrition: Patient to achieve baseline nutrition by discharge date 07/26/17 Confusion Acute. Patient will: a) be kept safe b) have cognitive/functional impairments minimized+ by 07/27/17 Seizure disorder: Patient will have no seizure activity by discharge 07/27/17 Pressure Ulcer Risk. A) Patient's skin will remain intact. B) Patient will understand risk factors, signs, and symptoms related to pressure ulcer risk by...07/27/17 Fall Risk Goal: Patient will A: Use call light or ask for help when out of bed or unstable on their feet and B. Will remain free from fall through anticipated discharge date of 7 STRATEGY TO ACHIEVE GOALS: Nutrition: Npo until swallow evaluation. Confusion: Monitor NA labs and for signs of confusion Pressure: Encourage turns and use call hollis for assist. Fall Risk: Up with one assist to bathroom. Use call hollis for staff assistance. RESTRAINT-RELATED GOALS: STRATEGIES TO ACHIEVE RESTRAINT GOALS: Outcome: Unchanged Goal Evaluation: Assumed care at 1530. Patient AAOx4. Last Na+ 136. Q4hrNa+ checks- call results to . Pass ed swallow eval. IV ML. Up with assist to BR. CARPIO at bedside. Electronically signed by: Jr Gaming RN 07/23/2017 18:53 lan of Care - Loly Noland, Speech Pathologist - 07/23/2017 5:06 PM PDTSpeech Therapy Plan of Care Treatment Note Start of Care/Start of Certification Date: 07/23/17 End of Certification Date: 08/22/17 Summary: Patient seen for initial evaluation in [facility]. Orders received and completed re: patient's swallowing abilities. Patient alert and cooperative throughout assessment. OPE reveals dr y mucosa of oral cavity but strength and ROM of structures appear WFL. Tongue with white coa ting and evidence of possible biting of tongue during seizure activity (not bleeding). Natu ral dentition present. Patient able to self feed at appropriate rate and volume. Trials of i ce, thin, puree, and regular consistencies assessed during clinical swallow assessment. Comp lains of historical feeling of "food sticking in throat" (suprasternally) when eating solids . Reports that this does not occur with liquids. Acknowledged weight loss recently as she has been taking primarily a liquids only diet. No oral residue present with consistencies today. Patient spontaneously uses sips of liquids between bites of solids to assist with passage of boluse s during swallowing. Pharyngeal swallow, upon palpation, appears to have 1-2 swallows per boluses offered with laryngeal excursion judged as normal. Patient with n o overt s/sx aspiration after trials given, however, is noted to have what is judged as habi tual cough/throat clearing activity to follow oral trials. Per these findings, patient demo nstrates a low risk of aspiration and is therefore recommended to continue with a general di et and thins liquids. Her habitual throat clearing/dry cough is likely related to a greate r underlying reflux/esophageal component to patient's swallow. Reflux precautions instructi on provided to patient and her SO. Patient shows good comprehension and acknowledged her ky ed for follow up with GI MD for further investigation of how to work with her likely dysmoti lity. No further skilled STx needs indicated at this time. Thank you for this referral. Speech language pathology will follow Cherrie Quijano until discharge from therapy or discharged from the hospital. Speech Language Pathology Discharge Recommendations are: Recommended discharge disposition: home with family/caregiver Post discharge speech language pathology recommendation: Planned Interventions: compensatory strategies, diet texture modification, patient/caregiv er education CORRECTIONAL FACILITY PSYCHIATRIST Diagnosis: Dysphagia Recommended Solid Texture: regular Recommended Medication Delivery: whole pills with thin liquids Recommended Liquid Texture: thin liquids Recommended Feeding/Eating Techniques: monitor for signs of aspiration Outcome Measures Tools: MANUEL NOMS Justification of Severity Rating: Clinical Swallow Evaluation THospital Course - Catrachita Moore MD - 07/23/2017 11:13 AM [facility] is a 56 YOF with a history of GERD & dysphagia x 3 mos who presented to OSH on 07/21 with new onset seizures. She was prepping for EGD/colonoscopy & developed hyponatremia; her presenting Na+ was 111. She received hypertonic saline and x8 hrs later was 120, up to 125 x24 hrs later. She recei oliva further IV fluids & ddAVP. At 48 hr christiano, her Na+ was 140. CT/head was unremarkable; a nti epileptics were discontinued as seizure activity was attributed to hyponatremia. GI is consulting for EGD/colonoscopy. Of note, she had a esophagram 04/27/17 which showed poor contractility of the thoracic esopha [place] and prominence of the mucosal folds above the GE junction. She was transferred to the floor on 07/22 where hospitalists assumed care. Electronically signed by Catrachita Moore MD at 0 07/23/2017 11:13 AM PDTPlan of [place] - Loly Figueroa Speech Pathologist - 07/23/2017 9:05 AM PDTSpeech Therapy Plan of Care Missed Visit (procedure) Note Summary: RN consulted by STx this a.m. Patient remains on schedule for EGD this afternoon. Must b e NPO until procedure completed. Patient to be sedated for this procedure, and therefore ma y not be appropriate for STx Swallow Evaluation until 07/24. STx to f/u later in day with RN to determine patient readiness for swallow assessment. Thank you. TPlan of [facility] [place] - Tang Carrillo RN - 07/23/2017 1:33 AM PDT Problem: Patient Care Overview (Adult) Goal: Care Team Goals & Evaluation PROBLEM-RELATED GOALS: Nutrition: Patient to achieve baseline nutrition by discharge date 07/26/17 Confusion Acute. Patient will: a) be kept safe b) have cognitive/functional impairments minimized+ by 07/27/17 Seizure disorder: Patient will have no seizure activity by discharge 07/27/17 Pressure Ulcer Risk. A) Patient's skin will remain intact. B) Patient will understand risk factors, signs, and symptoms related to pressure ulcer risk by...07/27/17 Fall Risk Goal: Patient will A: Use call light or ask for help when out of bed or unstable on their feet and B. Will remain free from fall through anticipated discharge date of 7 STRATEGY TO ACHIEVE GOALS: Nutrition: Npo until swallow evaluation. Confusion: Monitor NA labs and for signs of confusion Pressure: Encourage turns and use call hollis for assist. Fall Risk: Up with one assist to bathroom. Use call hollis for staff assistance. 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 Last NA 131. Npo for egd and swallow study. a t bedside. Calls for needs. One assist up to bathroom. Hx slurred speech. Bu out on reggie , voided without difficulty. Both iv sites lost during shift. New iv start for this am. Dx/Tx: Hyponatremia; Hyponatremia Code Status: Full Code NAC Turn [] Incontinent [] 1:1 Feeding [] Oxygen Delivery RA [] NC [] Open Mask [] Non-Rebreather [] cpap /bipap [] HHFNC [] V60/Vision [] Vent [] liters concentration Pain Management:: IV Access: PIV [] PICC [] Port [] CVC [] HD [] Drains/Devices/Skin Jeramine Score: (!) 16 Active Drains No matching active lines, drains, or airways Active Wounds/Incisions/Pressure Ulcers No matching active lines, drains, or airways [] N/A [] Chest Tube [] NG [] RAMO [] Pigtail [] WV [] HV Safety: TeleSitter Yes: [] No: [] Sitter Yes: [] No: [] Restraints Yes: [] No: [] Dixon: [] Voiding [] BU Insert Date: D/C Date: Active Urinary Caths No matching active lines, drains, or airways Last bowel movement: Last Bowel Movement: (COMPLIANCE REPRESENTATIVE) (07/21/17 0945) Active Gtt: Mentation/CAM +/- CAM Score: no Diet: Active Orders Diet Diet NPO; strict NPO; Effective Midnight NG/OG/PEG Active NG/OG/PEGs No matching active lines, drains, or airways Therapy Involved? (PT/OT/ST/RT) Yes: [] No: [] Type: PT [] OT [] ST [] RT [] Vitals: 07/22/17 1700 07/22/17 1800 07/22/17 1940 07/23/17 0000 BP: 151/86 156/76 126/66 109/65 Pulse: 61 60 70 68 Resp: 19 22 18 18 Temp: (!) 38.1 C (100.58 F) 37.7 C (99.9 F) 36.9 C (98.4 F) 37.1 C (98.8 F) TempSrc: Bladder Bladder Temporal Temporal SpO2: 100% 100% 99% 98% Weight: Height: Component Value Date/Time POCGLU 87 07/22/20172055 POCGLU 113 (H) 07/22/2017 1229 POCGLU 112 (H) 07/22/2017 0929 POCGLU 139 (H) 07/22/2017 0804 Items to address 1:1 at bedside report: 1. Anticipated needs next 1-2 hours: ? Time sensitive labs next draw? ? PTT for heparin? ? Critical lab results to be called on? ? Gtt rate and adjustment times 2. Goals to progress towards discharge 3. MD Communication (pending/call needed?) ignificant Event - Zoraida Morales MD - 07/23/2017 1:29 AM PDTCalled by diligent nursing staff. Patient's N a has increased to 131 and her serum osms have dramatically improved. Her Na has gone from 122/123 to 131, thus 9mmol/L increase in 24 hours; this is the maximum rate of correction fo r hyponatremia. Suspect that this is a volume issue as she appears hypervolemic on exam and she admits to polydypsia. Treatment for hypervolemic hyponatremia is fluid restriction, an d she is demonstrating improvement without fluids running. PLAN: - recheck Na in 4 hours, appreciate nursing paging with results - can consider starting LR pending aforementioned result, especially given NPO status lan of Care - Kailee Duarte RN - 07/22/2017 5:50 PM PDTProblem: Patient Care Overview (Adult) Goal: Care Team Goals & Evaluation PROBLEM-RELATED GOALS: STRATEGY TO ACHIEVE GOALS: RESTRAINT-RELATED GOALS: STRATEGIES TO ACHIEVE RESTRAINT GOALS: Outcome: Improving Goal Evaluation: Pt is awake, alert, cooperative. No memory of yesterday's events. Oriented to person, pl teagan, time. Labile emotions at times. Speech thick, increased coughing this afternoon. Seem s to have difficulty managing saliva. Has been NPO. Bladder temp up to 38.1. Expiratory wh eezes heard upper lobes. Dr. Villegas informed, orders rec'd. UA/C&S obtained, dixon cath d c'd. IV infusing in right forearm. Serum Na 126 at 1600. EGD cancelled per Dr. Thomas due to pt's "mentation". Duoneb, PCXR ordered prior to transfer. ..Electronically signed by: Marlee Alcaraz, MORGAN 07/22/2017 17:50 lan of [facility] [place] - Loly Akers Speech Pathologist - 07/22/2017 10:38 AM PDTSpeech Therapy Plan of Ca re Missed Visit (procedure) Note Summary: Swallowing assessment orders acknowledged. Patient currently NPO for completion of EGD la ter today. STx to hold orders and complete swallow assessment as patient is alert and avail able following EGD. Thank you for this referral. TPlan of [place] - Robert Caal RN - 07/21/2017 7:00 PM PDTRestless and agitated, thrashi ng about in bed, non-verbal for most of the day, able to state name tonight, precedex starte d which has helped her agitation, MAZARIEGOS equally, opens eyes to voice and tracks, does not redi rect of follow commands. On 2L nc, desats when sleeping, lungs clear. SR, BP stable, tmax 38 .3c, coming down now that she isn't thrashing. NPO, BU replaced per protocol, patient kicked catheter apart so was replaced with another new catheter, draining large amounts of urine. Significant other at bedside. CT head complete. documented in this encounter Plan of Treatment Not on filedocumented as of this encounter Procedures + +--------+ + + + | Procedure Name | Priori | Date/Time | Associated Diagnosis | Comments | | | ty | | | | + +--------+ + + + | SODIUM | STAT | 07/25/2017 | | Results for this | | | | 4:52 AM | | procedure are in the | | | | PDT | | results section. | + +--------+ + + + | BASIC METABOLIC | Routin | 07/25/2017 | | Results for this | | PANEL | e | 4:52 AM | | procedure are in the | | | | PDT | | results section. | + +--------+ + + + | SODIUM | STAT | 07/24/2017 | | Results for this | | | | 10:42 PM | | procedure are in the | | | | PDT | | results section. | + +--------+ + + + | SODIUM | STAT | 07/24/2017 | | Results for this | | | | 4:37 PM | | procedure are in the | | | | PDT | | results section. | + +--------+ + + + | SODIUM | STAT | 07/24/2017 | | Results for this | | | | 10:56 AM | | procedure are in the | | | | PDT | | results section. | + +--------+ + + + | POC GLUCOSE | Routin | 07/24/2017 | | Results for this | | | e | 8:44 AM | | procedure are in the | | | | PDT | | results section. | + +--------+ + + + | POC GLUCOSE | Routin | 07/24/2017 | | Results for this | | | e | 6:09 AM | | procedure are in the | | | | PDT | | results section. | + +--------+ + + + | CBC WITH | Routin | 07/24/2017 | | Results for this | | DIFFERENTIAL | e | 3:43 AM | | procedure are in the | | | | PDT | | results section. | + +--------+ + + + | PHOSPHORUS | Routin | 07/24/2017 | | Results for this | | | e | 3:43 AM | | procedure are in the | | | | PDT | | results section. | + +--------+ + + + | MAGNESIUM | Routin | 07/24/2017 | | Results for this | | | e | 3:43 AM | | procedure are in the | | | | PDT | | results section. | + +--------+ + + + | COMPREHENSIVE | Routin | 07/24/2017 | | Results for this | | METABOLIC PANEL | e | 3:43 AM | | procedure are in the | | | | PDT | | results section. | + +--------+ + + + | SODIUM | STAT | 07/24/2017 | | Results for this | | | | 12:07 AM | | procedure are in the | | | | PDT | | results section. | + +--------+ + + + | POC GLUCOSE | Routin | 07/23/2017 | | Results for this | | | e | 8:51 PM | | procedure are in the | | | | PDT | | results section. | + +--------+ + + + | SODIUM | STAT | 07/23/2017 | | Results for this | | | | 8:01 PM | | procedure are in the | | | | PDT | | results section. | + +--------+ + + + | POC GLUCOSE | Routin | 07/23/2017 | | Results for this | | | e | 5:08 PM | | procedure are in the | | | | PDT | | results section. | + +--------+ + + + | SODIUM | STAT | 07/23/2017 | | Results for this | | | | 3:50 PM | | procedure are in the | | | | PDT | | results section. | + +--------+ + + + | SODIUM | STAT | 07/23/2017 | | Results for this | | | | 1:29 PM | | procedure are in the | | | | PDT | | results section. | + +--------+ + + + | POC GLUCOSE | Routin | 07/23/2017 | | Results for this | | | e | 11:51 AM | | procedure are in the | | | | PDT | | results section. | + +--------+ + + + | SODIUM | STAT | 07/23/2017 | | Results for this | | | | 10:49 AM | | procedure are in the | | | | PDT | | results section. | + +--------+ + + + | SODIUM | Timed | 07/23/2017 | | Results for this | | | | 8:39 AM | | procedure are in the | | | | PDT | | results section. | + +--------+ + + + | POC GLUCOSE | Routin | 07/23/2017 | | Results for this | | | e | 5:04 AM | | procedure are in the | | | | PDT | | results section. | + +--------+ + + + | CBC WITH | Routin | 07/23/2017 | | Results for this | | DIFFERENTIAL | e | 12:12 AM | | procedure are in the | | | | PDT | | results section. | + +--------+ + + + | HEMOGLOBIN A1C | Add-On | 07/23/2017 | | Results for this | | | | 12:12 AM | | procedure are in the | | | | PDT | | results section. | + +--------+ + + + | CORTISOL, SERUM | Timed | 07/23/2017 | | Results for this | | | | 12:12 AM | | procedure are in the | | | | PDT | | results section. | + +--------+ + + + | RENAL FUNCTION PANEL | Routin | 07/23/2017 | | Results for this | | | e | 12:12 AM | | procedure are in the | | | | PDT | | results section. | + +--------+ + + + | POC GLUCOSE | Routin | 07/22/2017 | | Results for this | | | e | 8:56 PM | | procedure are in the | | | | PDT | | results section. | + +--------+ + + + | SODIUM | Timed | 07/22/2017 | | Results for this | | | | 7:53 PM | | procedure are in the | | | | PDT | | results section. | + +--------+ + + + | XR CHEST AP PORTABLE | Routin | 07/22/2017 | | Results for this | | | e | 6:50 PM | | procedure are in the | | | | PDT | | results section. | + +--------+ + + + | URINALYSIS WITH | Routin | 07/22/2017 | | Results for this | | MICROSCOPIC WITH | e | 5:47 PM | | procedure are in the | | CULTURE IF INDICATED | | PDT | | results section. | + +--------+ + + + | PROCALCITONIN, SERUM | Add-On | 07/22/2017 | | Results for this | | | | 4:26 PM | | procedure are in the | | | | PDT | | results section. | + +--------+ + + + | SODIUM | Timed | 07/22/2017 | | Results for this | | | | 4:26 PM | | procedure are in the | | | | PDT | | results section. | + +--------+ + + + | POC GLUCOSE | Routin | 07/22/2017 | | Results for this | | | e | 12:29 PM | | procedure are in the | | | | PDT | | results section. | + +--------+ + + + | C-REACTIVE PROTEIN | Routin | 07/22/2017 | | Results for this | | | e | 12:29 PM | | procedure are in the | | | | PDT | | results section. | + +--------+ + + + | SODIUM | Timed | 07/22/2017 | | Results for this | | | | 12:29 PM | | procedure are in the | | | | PDT | | results section. | + +--------+ + + + | POTASSIUM | Routin | 07/22/2017 | | Results for this | | | e | 12:29 PM | | procedure are in the | | | | PDT | | results section. | + +--------+ + + + | PHOSPHORUS | Routin | 07/22/2017 | | Results for this | | | e | 12:29 PM | | procedure are in the | | | | PDT | | results section. | + +--------+ + + + | FERRITIN | Add-On | 07/22/2017 | | Results for this | | | | 12:29 PM | | procedure are in the | | | | PDT | | results section. | + +--------+ + + + | POC GLUCOSE | Routin | 07/22/2017 | | Results for this | | | e | 9:29 AM | | procedure are in the | | | | PDT | | results section. | + +--------+ + + + | POC GLUCOSE | Routin | 07/22/2017 | | Results for this | | | e | 8:04 AM | | procedure are in the | | | | PDT | | results section. | + +--------+ + + + | SODIUM | Timed | 07/22/2017 | | Results for this | | | | 8:04 AM | | procedure are in the | | | | PDT | | results section. | + +--------+ + + + | POC GLUCOSE | Routin | 07/22/2017 | | Results for this | | | e | 6:58 AM | | procedure are in the | | | | PDT | | results section. | + +--------+ + + + | SODIUM, URINE, | Routin | 07/22/2017 | | Results for this | | RANDOM | e | 1:14 AM | | procedure are in the | | | | PDT | | results section. | + +--------+ + + + | OSMOLALITY, URINE | Routin | 07/22/2017 | | Results for this | | | e | 1:14 AM | | procedure are in the | | | | PDT | | results section. | + +--------+ + + + | SEDIMENTATION RATE | Add-On | 07/22/2017 | | Results for this | | | | 12:36 AM | | procedure are in the | | | | PDT | | results section. | + +--------+ + + + | CBC NO DIFFERENTIAL | Routin | 07/22/2017 | | Results for this | | | e | 12:36 AM | | procedure are in the | | | | PDT | | results section. | + +--------+ + + + | SODIUM | Timed | 07/22/2017 | | Results for this | | | | 12:36 AM | | procedure are in the | | | | PDT | | results section. | + +--------+ + + + | PHOSPHORUS | Routin | 07/22/2017 | | Results for this | | | e | 12:36 AM | | procedure are in the | | | | PDT | | results section. | + +--------+ + + + | OSMOLALITY, SERUM | Routin | 07/22/2017 | | Results for this | | | e | 12:36 AM | | procedure are in the | | | | PDT | | results section. | + +--------+ + + + | MAGNESIUM | Routin | 07/22/2017 | | Results for this | | | e | 12:36 AM | | procedure are in the | | | | PDT | | results section. | + +--------+ + + + | COMPREHENSIVE | Routin | 07/22/2017 | | Results for this | | METABOLIC PANEL | e | 12:36 AM | | procedure are in the | | | | PDT | | results section. | + +--------+ + + + | XR CHEST AP PORTABLE | STAT | 07/21/2017 | | Results for this | | | | 10:18 PM | | procedure are in the | | | | PDT | | results section. | + +--------+ + + + | SODIUM | Timed | 07/21/2017 | | Results for this | | | | 8:10 PM | | procedure are in the | | | | PDT | | results section. | + +--------+ + + + | CREATININE, URINE, | Add-On | 07/21/2017 | | Results for this | | RANDOM | | 4:50 PM | | procedure are in the | | | | PDT | | results section. | + +--------+ + + + | DRUGS OF ABUSE, | Add-On | 07/21/2017 | | Results for this | | SCREEN, URINE | | 4:50 PM | | procedure are in the | | | | PDT | | results section. | + +--------+ + + + | CT HEAD WO CONTRAST | Routin | 07/21/2017 | | Results for this | | | e | 4:39 PM | | procedure are in the | | | | PDT | | results section. | + +--------+ + + + | SODIUM | Timed | 07/21/2017 | | Results for this | | | | 4:05 PM | | procedure are in the | | | | PDT | | results section. | + +--------+ + + + | URINALYSIS WITH | Routin | 07/21/2017 | | Results for this | | MICROSCOPIC WITH | e | 2:00 PM | | procedure are in the | | CULTURE IF INDICATED | | PDT | | results section. | + +--------+ + + + | T4, FREE | Add-On | 07/21/2017 | | Results for this | | | | 11:25 AM | | procedure are in the | | | | PDT | | results section. | + +--------+ + + + | BASIC METABOLIC | STAT | 07/21/2017 | | Results for this | | PANEL | | 11:25 AM | | procedure are in the | | | | PDT | | results section. | + +--------+ + + + | MRSA NAAT | Routin | 07/21/2017 | | Results for this | | | e | 10:07 AM | | procedure are in the | | | | PDT | | results section. | + +--------+ + + + | POC GLUCOSE | Routin | 07/21/2017 | | Results for this | | | e | 9:43 AM | | procedure are in the | | | | PDT | | results section. | + +--------+ + + + documented in this encounter Results Sodium (07/25/2017 4:52 AM PDT) + +-------+ + + + | Component | Value | Ref Range | Performed | Pathologist | | | | | At | Signature | + +-------+ + + + | Na | 138 | 135 - 145 | [facility] | | | | | mmol/L | [facility] | | | | | [facility] | | | | | | [facility] | | | | | | [facility]ENTER | | | | | | LABORATORY | | + +-------+ + + + + + | Specimen | + + | Blood | + + + + + + + | Performing | Address | City/State/Zipcode | Phone Number | | Organization | | | | + + + + + | [facility] | [address] | [place] [address] | | | [facility] | | | | | LABORATORY | | | | + + + + + Basic Metabolic Panel (07/25/2017 4:52 AM PDT) + + + + + + | Component | Value | Ref Range | Performed | Pathologist | | | | | At | Signature | + + + + + + | Na | 139 | 135 - 145 | [facility] | | | | | mmol/L | [facility] | | | | | | [facility] | | | | | | MEDICAL | | | | | | CENTER | | | | | | LABORATORY | | + + + + + + | K | 4.0 | 3.5 - 5.0 | [facility] | | | | | mmol/L | [facility] | | | | | | [facility] | | | | | | MEDICAL | | | | | | CENTER | | | | | | LABORATORY | | + + + + + + | Cl | 104 | 99 - 109 mmol/L | [facility] | | | | | [facility] | | | | | [facility] | | | | | | MED[facility] | | | | | | CENTER | | | | | | LABORATORY | | + + + + + + | CO2 | 26 | 21 - 28 mmol/L | [facility] | | | | [facility] | | | | | [facility] | | | | | | [facility] | | | | | | CENTER | | | | | | LABORATORY | | + + + + + + | Glucose | 126 (H)Comment: [place] | 65 - 99 mg/dL | [facility] | | | | Diabetes Association | | [facility] | | | | diagnostic categories | | HEART | | | | for non adults: | | MEDICAL | | | | Impaired fasting | | CENTER | | | | glucose 100 to 125 | | LABORATORY | | | | mg/dL. A fasting | | | | | | glucose result of 126 | | | | | | mg/dL or greater | | | | | | indicates diabetes if | | | | | | the abnormality is | | | | | | confirmed on a | | | | | | subsequent day. A | | | | | | random glucose result of | | | | | | greater than 200 mg/dL | | | | | | indicates diabetes if | | | | | | the abnormality is | | | | | | confirmed on a | | | | | | subsequent day. | | | | + + + + + + | BUN | 6 (L) | 8 - 25 mg/dL | [facility] | | | | [facility] | | | | | | [facility] | | | | | | MEDICAL | | | | | | CENTER | | | | | | LABORATORY | | + + + + + + | Creatinine | 0.60Comment: IDMS | 0.50 - 1.00 | [facility] | | | | traceable creatinine | mg/dL | [facility] | | | | | | HEART | | | | | | MEDICAL | | | | | | CENTER | | | | | | LABORATORY | | + + + + + + | Calcium | 9.5 | 8.5 - 10.2 | [facility] | | | | | mg/dL | [facility] | | | | | | HEART | | | | | | MEDICAL | | | | | | CENTER | | | | | | LABORATORY | | + + + + + + | Anion Gap | 9 | 5 - 16 mmol/L | [facility] | | | | | | [facility] | | | | | | [facility] | | | | | | MEDICAL | | | | | | CENTER | | | | | | LABORATORY | | + + + + + + | Estimated | >60Comment: GFR <60: | >60 | [facility] | | | GFR | Chronic kidney disease, | ml/min/1.73m2 | [facility] | | | | if found over a 3 month | | HEART | | | | period.GFR <15: Kidney | | MEDICAL | | | | failure.For | | CENTER | | | | Americans, multiply the | | LABORATORY | | | | calculated GFR by 1.210 | | | | + + + + + + + + | Specimen | + + | Blood | + + + + + + + | Performing | Address | City/State/Zipcode | Phone Number | | Organization | | | | + + + + + | [facility] | [address] | [place] [address] | | | [facility] | | | | | LABORATORY | | | | + + + + + Sodium (07/24/2017 10:42 PM PDT) + +-------+ + + + | Component | Value | Ref Range | Performed | Pathologist | | | | | At | Signature | + +-------+ + + + | Na | 139 | 135 - 145 | [facility] | | | | | mmol/L | [facility] | | | | | | HEART | | | | | | MEDICAL | | | | | | CENTER | | | | | | LABORATORY | | + +-------+ + + + + + | Specimen | + + | Blood | + + + + + + + | Performing | Address | City/State/Zipcode | Phone Number | | Organization | | | | + + + + + | [facility] | [address] | [place] [address] | | | [facility] | | | | | LABORATORY | | | | + + + + + Sodium (07/24/2017 4:37 PM PDT) + +-------+ + + + | Component | Value | Ref Range | Performed | Pathologist | | | | | At | Signature | + +-------+ + + + | Na | 138 | 135 - 145 | [facility] | | | | | mmol/L | [facility] | | | | | | HEART | | | | | | MEDICAL | | | | | | CENTER | | | | | | LABORATORY | | + +-------+ + + + + + | Specimen | + + | Blood | + + + + + + + | Performing | Address | City/State/Zipcode | Phone Number | | Organization | | | | + + + + + | [facility] | [address] | [place] [address] | | | [facility] | | | | | LABORATORY | | | | + + + + + Sodium (07/24/2017 10:56 AM PDT) + +-------+ + + + | Component | Value | Ref Range | Performed | Pathologist | | | | | At | Signature | + +-------+ + + + | Na | 138 | 135 - 145 | [facility] | | | | | mmol/L | [facility] | | | | | | HE[facility] | | | | | | MEDICAL | | | | | | CENTER | | | | | | LABORATORY | | + +-------+ + + + + + | Specimen | + + | Blood | + + + + + + + | Performing | Address | City/State/Zipcode | Phone Number | | Organization | | | | + + + + + | [facility] | [address] | [place] [address] | | | [facility] | | | | | LABORATORY | | | | + + + + + POC Glucose (07/24/2017 8:44 AM PDT) + +---------+ + + + | Component | Value | Ref Range | Performed | Pathologist | | | | | At | Signature | + +---------+ + + + | Glucose, | 119 (H) | 65 - 99 mg/dL | [facility] | | | POC | | | [facility] | | | | | | HEART | | | | | | MEDICAL | | | | | | CENTER | | | | | | LABORATORY | | + +---------+ + + + + + | Specimen | + + | | + + + + + + + | Performing | Address | City/State/Zipcode | Phone Number | | Organization | | | | + + + + + | [facility] | [address] | [place] [address] | | | [facility] | | | | | LABORATORY | | | | + + + + + POC Glucose (07/24/2017 6:09 AM PDT) + +---------+ + + + | Component | Value | Ref Range | Performed | Pathologist | | | | | At | Signature | + +---------+ + + + | Glucose, | 124 (H) | 65 - 99 mg/dL | [facility] | | | POC | | | [facility] | | | | | | HEART | | | | | | MEDICAL | | | | | | CENTER | | | | | | LABORATORY | | + +---------+ + + + + + | Specimen | + + | | + + + + + + + | Performing | Address | City/State/Zipcode | Phone Number | | Organization | | | | + + + + + | [facility] | [address] | [place] [address] | | | [facility] | | | | | LABORATORY | | | | + + + + + Phosphorus (07/24/2017 3:43 AM PDT) + +-------+ + + + | Component | Value | Ref Range | Performed | Pathologist | | | | | At | Signature | + +-------+ + + + | Phosphorus | 2.9 | 2.3 - 4.8 mg/dL | [facility] | | | | | [facility] | | | | | | [facility] | | | | | | MEDICAL | | | | | | CENTER | | | | | | LABORATORY | | + +-------+ + + + + + | Specimen | + + | Blood | + + + + + + + | Performing | Address | City/State/Zipcode | Phone Number | | Organization | | | | + + + + + | [facility] | [address] | [place] [address] | | | [facility] | | | | | LABORATORY | | | | + + + + + Magnesium (07/24/2017 3:43 AM PDT) + +-------+ + + + | Component | Value | Ref Range | Performed | Pathologist | | | | | At | Signature | + +-------+ + + + | Magnesium | 1.9 | 1.7 - 2.4 mg/dL | [facility] | | | | [facility] | | | | | | [facility] | | | | | | MEDICAL | | | | | | CENTER | | | | | | LABORATORY | | + +-------+ + + + + + | Specimen | + + | Blood | + + + + + + + | Performing | Address | City/State/Zipcode | Phone Number | | Organization | | | | + + + + + | [facility] | [address] | [place] [address] | | | [facility] | | | | | LABORATORY | | | | + + + + + Comprehensive Metabolic Panel (07/24/2017 3:43 AM PDT) + + + + + + | Component | Value | Ref Range | Performed | Pathologist | | | | | At | Signature | + + + + + + | Na | 135 | 135 - 145 | [facility] | | | | | mmol/L | [facility] | | | | | | HEART | | | | | | MEDICAL | | | | | | CENTER | | | | | | LABORATORY | | + + + + + + | K | 3.6 | 3.5 - 5.0 | [facility] | | | | | mmol/L | [facility] | | | | | | HEART | | | | | | MEDICAL | | | | | | CENTER | | | | | | LABORATORY | | + + + + + + | Cl | 100 | 99 - 109 mmol/L | [facility] | | | | | | [facility] | | | | | | HE[facility] | | | | | | MEDICAL | | | | | | CENTER | | | | | | LABORATORY | | + + + + + + | CO2 | 26 | 21 - 28 mmol/L | [facility] | | | | | | [facility] | | | | | | HE[facility] | | | | | | MEDICAL | | | | | | CENTER | | | | | | LABORATORY | | + + + + + + | Glucose | 118 (H)Comment: [place] | 65 - 99 mg/dL | [facility] | | | | Diabetes Association | | [facility] | | | | diagnostic categories | | HEART | | | | for non adults: | | MEDICAL | | | | Impaired fasting | | CENTER | | | | glucose 100 to 125 | | LABORATORY | | | | mg/dL. A fasting | | | | | | glucose result of 126 | | | | | | mg/dL or greater | | | | | | indicates diabetes if | | | | | | the abnormality is | | | | | | confirmed on a | | | | | | subsequent day. A | | | | | | random glucose result of | | | | | | greater than 200 mg/dL | | | | | | indicates diabetes if | | | | | | the abnormality is | | | | | | confirmed on a | | | | | | subsequent day. | | | | + + + + + + | BUN | 3 (L) | 8 - 25 mg/dL | [facility] | | | | | | [facility] | | | | | | [facility] | | | | | | MEDICAL | | | | | | CENTER | | | | | | LABORATORY | | + + + + + + | Creatinine | 0.54Comment: IDMS | 0.50 - 1.00 | [facility] | | | | traceable creatinine | mg/dL | [facility] | | | | | | HEART | | | | | | MEDICAL | | | | | | CENTER | | | | | | LABORATORY | | + + + + + + | Calcium | 9.1 | 8.5 - 10.2 | [facility] | | | | | mg/dL | [facility] | | | | | | HEART | | | | | | MEDICAL | | | | | | CENTER | | | | | | LABORATORY | | + + + + + + | Total | 6.5 | 6.1 - 8.4 g/dL | [facility] | | | Protein | | | [facility] | | | | | | HEART | | | | | | MEDICAL | | | | | | CENTER | | | | | | LABORATORY | | + + + + + + | Albumin | 3.7 | 3.5 - 5.0 g/dL | [facility] | | | | | | [facility] | | | | | | HE[facility] | | | | | | MEDICAL | | | | | | CENTER | | | | | | LABORATORY | | + + + + + + | Bilirubin | 0.8 | 0.1 - 1.5 mg/dL | [facility] | | | Total | | | [facility] | | | | | | HEART | | | | | | MEDICAL | | | | | | CENTER | | | | | | LABORATORY | | + + + + + + | Alkaline | 75 | 35 - 115 U/L | [facility] | | | Phosphatase | | | [facility] | | | | | | HEART | | | | | | MEDICAL | | | | | | CENTER | | | | | | LABORATORY | | + + + + + + | AST | 82 (H) | 10 - 45 U/L | [facility] | | | | | | [facility] | | | | | | HE[facility] | | | | | | MEDICAL | | | | | | CENTER | | | | | | LABORATORY | | + + + + + + | ALT | 47 | 10 - 65 U/L | [facility] | | | | | | [facility] | | | | | | HE[facility] | | | | | | MEDICAL | | | | | | CENTER | | | | | | LABORATORY | | + + + + + + | Anion Gap | 9 | 5 - 16 mmol/L | [facility] | | | | | | [facility] | | | | | | [facility] | | | | | | MEDICAL | | | | | | CENTER | | | | | | LABORATORY | | + + + + + + | Estimated | >60Comment: GFR <60: | >60 | [facility] | | | GFR | Chronic kidney disease, | ml/min/1.73m2 | [facility] | | | | if found over a 3 month | | HEART | | | | period.GFR <15: Kidney | | MEDICAL | | | | failure.For | | CENTER | | | | Americans, multiply the | | LABORATORY | | | | calculated GFR by 1.210 | | | | + + + + + + + + | Specimen | + + | Blood | + + + + + + + | Performing | Address | City/State/Zipcode | Phone Number | | Organization | | | | + + + + + | [facility] | [address] | [place] [address] | | | [facility] | | | | | LABORATORY | | | | + + + + + CBC with Differential (07/24/2017 3:43 AM PDT) + + + + + + | Component | Value | Ref Range | Performed | Pathologist | | | | | At | Signature | + + + + + + | WBC | 7.2 | 3.8 - 11.0 K/uL | [facility] | | | | | | [facility] | | | | | | [facility] | | | | | | MEDICAL | | | | | | CENTER | | | | | | LABORATORY | | + + + + + + | RBC | 4.28 | 3.70 - 5.10 | [facility] | | | | | M/uL | [facility] | | | | | | HEART | | | | | | MEDICAL | | | | | | CENTER | | | | | | LABORATORY | | + + + + + + | Hemoglobin | 11.7 | 11.3 - 15.5 | [facility] | | | | | g/dL | [facility] | | | | | | HEART | | | | | | MEDICAL | | | | | | CENTER | | | | | | LABORATORY | | + + + + + + | Hematocrit | 34.9 | 34.0 - 46.0 % | [facility] | | | | | | [facility] | | | | | | [facility] | | | | | | MEDICAL | | | | | | CENTER | | | | | | LABORATORY | | + + + + + + | MCV | 81.5 | 80.0 - 100.0 fL | [facility] | | | | | | [facility] | | | | | | [facility] | | | | | | MEDICAL | | | | | | CENTER | | | | | | LABORATORY | | + + + + + + | MCH | 27.4 | 27.0 - 34.0 pg | [facility] | | | | | | [facility] | | | | | | [facility] | | | | | | MEDICAL | | | | | | CENTER | | | | | | LABORATORY | | + + + + + + | MCHC | 33.6 | 32.0 - 35.5 | [facility] | | | | | g/dL | [facility] | | | | | | HEART | | | | | | MEDICAL | | | | | | CENTER | | | | | | LABORATORY | | + + + + + + | RDW-CV | 13.5 | 11.0 - 15.5 % | [facility] | | | | | | [facility] | | | | | | HE[facility] | | | | | | MEDICAL | | | | | | CENTER | | | | | | LABORATORY | | + + + + + + | Platelet | 140 (L) | 150 - 400 K/uL | [facility] | | | Count | | | [facility] | | | | | | HEART | | | | | | MEDICAL | | | | | | CENTER | | | | | | LABORATORY | | + + + + + + | Differentia | Automated | | [facility] | | | l Type | | | [facility] | | | | | | HEART | | | | | | MEDICAL | | | | | | CENTER | | | | | | LABORATORY | | + + + + + + | % | 67.9 | 40.0 - 75.0 % | [facility] | | | Neutrophils | | | [facility] | | | | | | HEART | | | | | | MEDICAL | | | | | | CENTER | | | | | | LABORATORY | | + + + + + + | % | 23.0 | 15.0 - 48.0 % | [facility] | | | Lymphocytes | | | [facility] | | | | | | HEART | | | | | | MEDICAL | | | | | | CENTER | | | | | | LABORATORY | | + + + + + + | % Monocytes | 7.8 | 0.0 - 12.0 % | [facility] | | | | | | [facility] | | | | | | HE[facility] | | | | | | MEDICAL | | | | | | CENTER | | | | | | LABORATORY | | + + + + + + | % | 0.7 | 0.0 - 7.0 % | [facility] | | | Eosinophils | | | [facility] | | | | | | HEART | | | | | | MEDICAL | | | | | | CENTER | | | | | | LABORATORY | | + + + + + + | % Basophils | 0.6 | 0.0 - 2.0 % | [facility] | | | | | | [facility] | | | | | | HE[facility] | | | | | | MEDICAL | | | | | | CENTER | | | | | | LABORATORY | | + + + + + + | Absolute | 4.90 | 1.90 - 7.40 | [facility] | | | Neutrophils | | K/uL | [facility] | | | | | | HEART | | | | | | MEDICAL | | | | | | CENTER | | | | | | LABORATORY | | + + + + + + | Absolute | 1.60 | 1.00 - 3.90 | [facility] | | | Lymphocytes | | K/uL | [facility] | | | | | | HEART | | | | | | MEDICAL | | | | | | CENTER | | | | | | LABORATORY | | + + + + + + | Absolute | 0.60 | 0.00 - 0.80 | [facility] | | | Monocytes | | K/uL | [facility] | | | | | | HEART | | | | | | MEDICAL | | | | | | CENTER | | | | | | LABORATORY | | + + + + + + | Absolute | 0.00 | 0.00 - 0.50 | [facility] | | | Eosinophils | | K/uL | [facility] | | | | | | HE[facility] | | | | | | MEDICAL | | | | | | CENTER | | | | | | LABORATORY | | + + + + + + | Absolute | 0.00 | 0.00 - 0.10 | [facility] | | | Basophils | | K/uL | [facility] | | | | | | HEART | | | | | | MEDICAL | | | | | | CENTER | | | | | | LABORATORY | | + + + + + + + + | Specimen | + + | Blood | + + + + + + + | Performing | Address | City/State/Zipcode | Phone Number | | Organization | | | | + + + + + | [facility] | [address] | [place] [address] | | | [facility] | | | | | LABORATORY | | | | + + + + + Sodium (07/24/2017 12:07 AM PDT) + +---------+ + + + | Component | Value | Ref Range | Performed | Pathologist | | | | | At | Signature | + +---------+ + + + | Na | 134 (L) | 135 - 145 | [facility] | | | | | mmol/L | [facility] | | | | | | HE[facility] | | | | | | MEDICAL | | | | | | CENTER | | | | | | LABORATORY | | + +---------+ + + + + + | Specimen | + + | Blood | + + + + + + + | Performing | Address | City/State/Zipcode | Phone Number | | Organization | | | | + + + + + | [facility] | [address] | [place] [address] | | | [facility] | | | | | LABORATORY | | | | + + + + + POC Glucose (07/23/2017 8:51 PM PDT) + +---------+ + + + | Component | Value | Ref Range | Performed | Pathologist | | | | | At | Signature | + +---------+ + + + | Glucose, | 115 (H) | 65 - 99 mg/dL | [facility] | | | POC | | | [facility] | | | | | | [facility] | | | | | | MEDICAL | | | | | | CENTER | | | | | | LABORATORY | | + +---------+ + + + + + | Specimen | + + | | + + + + + + + | Performing | Address | City/State/Zipcode | Phone Number | | Organization | | | | + + + + + | [facility] | [address] | [place] [address] | | | [facility] | | | | | LABORATORY | | | | + + + + + Sodium (07/23/2017 8:01 PM PDT) + +---------+ + + + | Component | Value | Ref Range | Performed | Pathologist | | | | | At | Signature | + +---------+ + + + | Na | 132 (L) | 135 - 145 | [facility] | | | | | mmol/L | [facility] | | | | | | HE[facility] | | | | | | MEDICAL | | | | | | CENTER | | | | | | LABORATORY | | + +---------+ + + + + + | Specimen | + + | Blood | + + + + + + + | Performing | Address | City/State/Zipcode | Phone Number | | Organization | | | | + + + + + | [facility] | [address] | [place] [address] | | | [facility] | | | | | LABORATORY | | | | + + + + + POC Glucose (07/23/2017 5:08 PM PDT) + +---------+ + + + | Component | Value | Ref Range | Performed | Pathologist | | | | | At | Signature | + +---------+ + + + | Glucose, | 120 (H) | 65 - 99 mg/dL | [facility] | | | POC | | | [facility] | | | | | | [facility] | | | | | | MEDICAL | | | | | | CENTER | | | | | | LABORATORY | | + +---------+ + + + + + | Specimen | + + | | + + + + + + + | Performing | Address | City/State/Zipcode | Phone Number | | Organization | | | | + + + + + | [facility] | [address] | [place] [address] | | | [facility] | | | | | LABORATORY | | | | + + + + + Sodium (07/23/2017 3:50 PM PDT) + +-------+ + + + | Component | Value | Ref Range | Performed | Pathologist | | | | | At | Signature | + +-------+ + + + | Na | 136 | 135 - 145 | [facility] | | | | | mmol/L | [facility] | | | | | | HE[facility] | | | | | | MEDICAL | | | | | | CENTER | | | | | | LABORATORY | | + +-------+ + + + + + | Specimen | + + | Blood | + + + + + + + | Performing | Address | City/State/Zipcode | Phone Number | | Organization | | | | + + + + + | [facility] | [address] | [place] [address] | | | [facility] | | | | | LABORATORY | | | | + + + + + Sodium (07/23/2017 1:29 PM PDT) + +-------+ + + + | Component | Value | Ref Range | Performed | Pathologist | | | | | At | Signature | + +-------+ + + + | Na | 139 | 135 - 145 | [facility] | | | | | mmol/L | [facility] | | | | | | HEART | | | | | | MEDICAL | | | | | | CENTER | | | | | | LABORATORY | | + +-------+ + + + + + | Specimen | + + | Blood | + + + + + + + | Performing | Address | City/State/Zipcode | Phone Number | | Organization | | | | + + + + + | [facility] | [address] | [place] [address] | | | [facility] | | | | | LABORATORY | | | | + + + + + POC Glucose (07/23/2017 11:51 AM PDT) + +---------+ + + + | Component | Value | Ref Range | Performed | Pathologist | | | | | At | Signature | + +---------+ + + + | Glucose, | 142 (H) | 65 - 99 mg/dL | [facility] | | | POC | | | [facility] | | | | | | [facility] | | | | | | MEDICAL | | | | | | CENTER | | | | | | LABORATORY | | + +---------+ + + + + + | Specimen | + + | | + + + + + + + | Performing | Address | City/State/Zipcode | Phone Number | | Organization | | | | + + + + + | [facility] | [address] | [place] [address] | | | [facility] | | | | | LABORATORY | | | | + + + + + Sodium (07/23/2017 10:49 AM PDT) + +-------+ + + + | Component | Value | Ref Range | Performed | Pathologist | | | | | At | Signature | + +-------+ + + + | Na | 143 | 135 - 145 | [facility] | | | | | mmol/L | [facility] | | | | | | [facility] | | | | | [facility] | | | | | | [facility]ENTER | | | | | | LABORATORY | | + +-------+ + + + + + | Specimen | + + | Blood | + + + + + + + | Performing | Address | City/State/Zipcode | Phone Number | | Organization | | | | + + + + + | [facility] | [address] | [place] [address] | | | [facility] | | | | | LABORATORY | | | | + + + + + Sodium (07/23/2017 8:39 AM PDT) + +-------+ + + + | Component | Value | Ref Range | Performed | Pathologist | | | | | At | Signature | + +-------+ + + + | Na | 140 | 135 - 145 | [facility] | | | | mmol/L | [facility] | | [facility] | | [facility] | | | | | | [facility] | | | | | | [facility]ENTER | | | | | | LABORATORY | | + +-------+ + + + + + | Specimen | + + | Blood | + + + + + + + | Performing | Address | City/State/Zipcode | Phone Number | | Organization | | | | + + + + + | [facility] | [address] | [place] [address] | | | [facility] | | | | | LABORATORY | | | | + + + + + POC Glucose (07/23/2017 5:04 AM PDT) + +---------+ + + + | Component | Value | Ref Range | Performed | Pathologist | | | | | At | Signature | + +---------+ + + + | Glucose, | 101 (H) | 65 - 99 mg/dL | [facility] | | | | | [facility] | | | | | | [facility] | | | | | | LABORATORY | | + +---------+ + + + + + | Specimen | + + | | + + + + + + + | Performing | Address | City/State/Zipcode | Phone Number | | Organization | | | | + + + + + | [facility] | [address] | [place] [address] | | | [facility] | | | | | LABORATORY | | | | + + + + + Renal Function Panel (07/23/2017 12:12 AM PDT) + + + + + + | Component | Value | Ref Range | Performed | Pathologist | | | | | At | Signature | + + + + + + | Na | 131 (L) | 135 - 145 | [facility] | | | | | mmol/L | [facility] | | | | | | [facility] | | | | | | [facility] | | | | | | CENTER | | | | | | LABORATORY | | + + + + + + | K | 3.8 | 3.5 - 5.0 | [facility] | | | | | mmol/L | [facility] | | | | | [facility] | | | | | | [facility] | | | | | | [facility]ENTER | | | | | | LABORATORY | | + + + + + + | Cl | 97 (L) | 99 - 109 mmol/L | [facility] | | | | [facility] | | | | | | [facility] | | | | | | MEDICAL | | | | | | CENTER | | | | | | LABORATORY | | + + + + + + | CO2 | 24 | 21 - 28 mmol/L | [facility] | | | | | | [facility] | | | | | | [facility]ENTER | | | | | | LABORATORY | | + + + + + + | Glucose | 106 (H)Comment: [place] | 65 - 99 mg/dL | [facility] | | | | Diabetes Association | | [facility] | | | | diagnostic categories | | HEART | | | | for non adults: | | MEDICAL | | | | Impaired fasting | | CENTER | | | | glucose 100 to 125 | | LABORATORY | | | | mg/dL. A fasting | | | | | | glucose result of 126 | | | | | | mg/dL or greater | | | | | | indicates diabetes if | | | | | | the abnormality is | | | | | | confirmed on a | | | | | | subsequent day. A | | | | | | random glucose result of | | | | | | greater than 200 mg/dL | | | | | | indicates diabetes if | | | | | | the abnormality is | | | | | | confirmed on a | | | | | | subsequent day. | | | | + + + + + + | BUN | 6 (L) | 8 - 25 mg/dL | [facility] | [facility] | | [facility] | | [facility] | | | | | | MEDICAL | | | | | | CENTER | | | | | | LABORATORY | | + + + + + + | Creatinine | 0.53Comment: IDMS | 0.50 - 1.00 | [facility] | | | | traceable creatinine | mg/dL | [facility] | | | | | | HEART | | | | | | MEDICAL | | | | | | CENTER | | | | | | LABORATORY | | + + + + + + | Calcium | 8.6 | 8.5 - 10.2 | [facility] | | | | | mg/dL | [facility] | | | | | | HEART | | | | | | MEDICAL | | | | | | CENTER | | | | | | LABORATORY | | + + + + + + | Phosphorus | 2.3 | 2.3 - 4.8 mg/dL | [facility] | | | | | | [facility] | | | | | | [facility] | | | | | | MEDICAL | | | | | | CENTER | | | | | | LABORATORY | | + + + + + + | Albumin | 3.5 | 3.5 - 5.0 g/dL | [facility] | | | | [facility] | | | | | | [facility] | | | | | | MEDICAL | | | | | | CENTER | | | | | | LABORATORY | | + + + + + + | Anion Gap | 10 | 5 - 16 mmol/L | [facility] | | | [facility] | | | | | [facility] | | | | | | MEDICAL | | | | | | CENTER | | | | | | LABORATORY | | + + + + + + | Estimated | >60Comment: GFR <60: | >60 | [facility] | | | GFR | Chronic kidney disease, | ml/min/1.73m2 | [facility] | | | | if found over a 3 month | | HEART | | | | period.GFR <15: Kidney | | MEDICAL | | | | failure.For | | CENTER | | | | Americans, multiply the | | LABORATORY | | | | calculated GFR by 1.210 | | | | + + + + + + + + | Specimen | + + | Blood | + + + + + + + | Performing | Address | City/State/Zipcode | Phone Number | | Organization | | | | + + + + + | [facility] | [address] | [place] [address] | | | [facility] | | | | | LABORATORY | | | | + + + + + Cortisol, Serum (07/23/2017 12:12 AM PDT) + + + + + + | Component | Value | Ref Range | Performed | Pathologist | | | | | At | Signature | + + + + + + | Cortisol | 12.7Comment: Normal | 0 - 23 ug/dL | [facility] | | | | range for AM samples is | | [facility] | | | | 6-23 ug/dL and for PM | | HEART | | | | samples 0-9 ug/dL. | | MEDICAL | | | | | | CENTER | | | | | | LABORATORY | | + + + + + + + + | Specimen | + + | Blood | + + + + + + + | Performing | Address | City/State/Zipcode | Phone Number | | Organization | | | | + + + + + | [facility] | [address] | [place] [address] | | | [facility] | | | | | LABORATORY | | | | + + + + + Hemoglobin A1C (07/23/2017 12:12 AM PDT) + + + + + + | Component | Value | Ref Range | Performed | Pathologist | | | | | At | Signature | + + + + + + | Hemoglobin | 5.4Comment: The [place] | 4.3 - 6.1 % | [facility] | | | A1c | Diabetes Association | | [facility] | | | | considers a result of < | | HEART | | | | 7.0% to be the goal of | | MEDICAL | | | | diabetic therapy. | | CENTER | | | | | | LABORATORY | | + + + + + + | Estimated | 108Comment: The ADA | mg/dL | [facility] | | | Average | recommends an Estimated | | [facility] | | | Glucose | Average Glucose (eAG) | | HEART | | | | result of LT 154 mg/dL | | MEDICAL | | | | to be the goal of | | CENTER | | | | diabetic therapy. | | LABORATORY | | | | Estimated Average | | | | | | Glucose is calculated | | | | | | from the Hgb A1c by use | | | | | | of the ADA recommended | | | | | | formula. | | | | + + + + + + + + | Specimen | + + | Blood | + + + + + + + | Performing | Address | City/State/Zipcode | Phone Number | | Organization | | | | + + + + + | [facility] | [address] | [place] [address] | | | [facility] | | | | | LABORATORY | | | | + + + + + CBC with Differential (07/23/2017 12:12 AM PDT) + + + + + + | Component | Value | Ref Range | Performed | Pathologist | | | | | At | Signature | + + + + + + | WBC | 6.4 | 3.8 - 11.0 K/uL | [facility] | | | | | [facility] | | | | | | HEART | | | | | | MEDICAL | | | | | | CENTER | | | | | | LABORATORY | | + + + + + + | RBC | 4.22 | 3.70 - 5.10 | [facility] | | | | | M/uL | [facility] | | | | | | HEART | | | | | | MEDICAL | | | | | | CENTER | | | | | | LABORATORY | | + + + + + + | Hemoglobin | 11.6 | 11.3 - 15.5 | [facility] | | | | | g/dL | [facility] | | | | | | HEART | | | | | | MEDICAL | | | | | | CENTER | | | | | | LABORATORY | | + + + + + + | Hematocrit | 34.4 | 34.0 - 46.0 % | [facility] | | | | | | [facility] | | | | | | [facility] | | | | | | MEDICAL | | | | | | CENTER | | | | | | LABORATORY | | + + + + + + | MCV | 81.3 | 80.0 - 100.0 fL | [facility] | | | | | | [facility] | | | | | | HE[facility] | | | | | | MEDICAL | | | | | | CENTER | | | | | | LABORATORY | | + + + + + + | MCH | 27.5 | 27.0 - 34.0 pg | [facility] | | | | | | [facility] | | | | | | HE[facility] | | | | | | MEDICAL | | | | | | CENTER | | | | | | LABORATORY | | + + + + + + | MCHC | 33.8 | 32.0 - 35.5 | [facility] | | | | | g/dL | [facility] | | | | | | HEART | | | | | | MEDICAL | | | | | | CENTER | | | | | | LABORATORY | | + + + + + + | RDW-CV | 13.3 | 11.0 - 15.5 % | [facility] | | | | | | [facility] | | | | | | HEART | | | | | | MEDICAL | | | | | | CENTER | | | | | | LABORATORY | | + + + + + + | Platelet | 128 (L) | 150 - 400 K/uL | [facility] | | | Count | | | [facility] | | | | | | HEART | | | | | | MEDICAL | | | | | | CENTER | | | | | | LABORATORY | | + + + + + + | Differentia | Automated | | [facility] | | | l Type | | | [facility] | | | | | | HEART | | | | | | MEDICAL | | | | | | CENTER | | | | | | LABORATORY | | + + + + + + | % | 73.7 | 40.0 - 75.0 % | [facility] | | | Neutrophils | | | [facility] | | | | | | HEART | | | | | | MEDICAL | | | | | | CENTER | | | | | | LABORATORY | | + + + + + + | % | 18.6 | 15.0 - 48.0 % | [facility] | | | Lymphocytes | | | [facility] | | | | | | HEART | | | | | | MEDICAL | | | | | | CENTER | | | | | | LABORATORY | | + + + + + + | % Monocytes | 7.1 | 0.0 - 12.0 % | [facility] | | | | | | [facility] | | | | | | HEART | | | | | | MEDICAL | | | | | | CENTER | | | | | | LABORATORY | | + + + + + + | % | 0.3 | 0.0 - 7.0 % | [facility] | | | Eosinophils | | | [facility] | | | | | | HEART | | | | | | MEDICAL | | | | | | CENTER | | | | | | LABORATORY | | + + + + + + | % Basophils | 0.3 | 0.0 - 2.0 % | [facility] | | | | | | [facility] | | | | | | HEART | | | | | | MEDICAL | | | | | | CENTER | | | | | | LABORATORY | | + + + + + + | Absolute | 4.70 | 1.90 - 7.40 | [facility] | | | Neutrophils | | K/uL | [facility] | | | | | | HEART | | | | | | MEDICAL | | | | | | CENTER | | | | | | LABORATORY | | + + + + + + | Absolute | 1.20 | 1.00 - 3.90 | [facility] | | | Lymphocytes | | K/uL | [facility] | | | | | | HEART | | | | | | MEDICAL | | | | | | CENTER | | | | | | LABORATORY | | + + + + + + | Absolute | 0.50 | 0.00 - 0.80 | [facility] | | | Monocytes | | K/uL | [facility] | | | | | | HEART | | | | | | MEDICAL | | | | | | CENTER | | | | | | LABORATORY | | + + + + + + | Absolute | 0.00 | 0.00 - 0.50 | [facility] | | | Eosinophils | | K/uL | [facility] | | | | | | HEART | | | | | | MEDICAL | | | | | | CENTER | | | | | | LABORATORY | | + + + + + + | Absolute | 0.00 | 0.00 - 0.10 | [facility] | | | Basophils | | K/uL | [facility] | | | | | | HEART | | | | | | MEDICAL | | | | | | CENTER | | | | | | LABORATORY | | + + + + + + + + | Specimen | + + | Blood | + + + + + + + | Performing | Address | City/State/Zipcode | Phone Number | | Organization | | | | + + + + + | [facility] | [address] | [place] [address] | | | [facility] | | | | | LABORATORY | | | | + + + + + POC Glucose (07/22/2017 8:56 PM PDT) + +-------+ + + + | Component | Value | Ref Range | Performed | Pathologist | | | | | At | Signature | + +-------+ + + + | Glucose, | 87 | 65 - 99 mg/dL | [facility] | | | POC | | | [facility] | | | | | | HEART | | | | | | MEDICAL | | | | | | CENTER | | | | | | LABORATORY | | + +-------+ + + + + + | Specimen | + + | | + + + + + + + | Performing | Address | City/State/Zipcode | Phone Number | | Organization | | | | + + + + + | [facility] | [address] | [place] [address] | | | [facility] | | | | | LABORATORY | | | | + + + + + Sodium (07/22/2017 7:53 PM PDT) + +---------+ + + + | Component | Value | Ref Range | Performed | Pathologist | | | | | At | Signature | + +---------+ + + + | Na | 127 (L) | 135 - 145 | [facility] | | | | | mmol/L | [facility] | | | | | | HEART | | | | | | MEDICAL | | | | | | CENTER | | | | | | LABORATORY | | + +---------+ + + + + + | Specimen | + + | Blood | + + + + + + + | Performing | Address | City/State/Zipcode | Phone Number | | Organization | | | | + + + + + | [facility] | [address] | [place] [address] | | | [facility] | | | | | LABORATORY | | | | + + + + + XR Chest AP Portable (07/22/2017 6:50 PM PDT) + + | Specimen | + + | | + + + + + | Narrative | Performed At | + + + | CHEST PORTABLE ONE VIEW CLINICAL INFORMATION: Increasing | [facility] | | shortness of breath. COMPARISON: XR CHEST AP PORTABLE dated | | | 07/21/2017 FINDINGS: Heart, lungs and vessels normal. No | | | pneumothorax, pleural effusion or adenopathy. No significant bone | | | abnormality. IMPRESSION: Negative chest. No aspiration | | | pneumonia. Signed by: Damaso Esparza | | + + + + + | Procedure Note | + + | Manohar, Rad Results In - 07/22/2017 7:12 PM PDT | | CHEST PORTABLE ONE VIEW | | | | CLINICAL INFORMATION: | | Increasing shortness of breath. | | | | COMPARISON: | | XR CHEST AP PORTABLE dated 07/21/2017 | | | | FINDINGS: | | Heart, lungs and vessels normal. No pneumothorax, pleural effusion or | | adenopathy. No significant bone abnormality. | | | | IMPRESSION: | | Negative chest. No aspiration pneumonia. | | | | | | | | Signed by: Damaso Esparza | + + + +---------+ + + | Performing | Address | City/State/Zipcode | Phone Number | | Organization | | | | + +---------+ + + | [facility] | | | | + +---------+ + + Urinalysis with Microscopic with Culture if Indicated (07/22/2017 5:47 PM PDT) + + + + + + | Component | Value | Ref Range | Performed | Pathologist | | | | | At | Signature | + + + + + + | Color, | Yellow | | [facility] | | | Urine | | | [facility] | | | | | | HEART | | | | | | MEDICAL | | | | | | CENTER | | | | | | LABORATORY | | + + + + + + | Clarity | Hazy | | [facility] | | | | | | [facility] | | | | | | HEART | | | | | | MEDICAL | | | | | | CENTER | | | | | | LABORATORY | | + + + + + + | Glucose, | Negative | Negative mg/dL | [facility] | | | Urine | | | [facility] | | | | | | HEART | | | | | | MEDICAL | | | | | | CENTER | | | | | | LABORATORY | | + + + + + + | Bilirubin, | Negative | Negative | [facility] | | | Urine | | | [facility] | | | | | | HEART | | | | | | MEDICAL | | | | | | CENTER | | | | | | LABORATORY | | + + + + + + | Ketones, | Negative | Negative mg/dL | [facility] | | | Urine | | | [facility] | | | | | | HEART | | | | | | MEDICAL | | | | | | CENTER | | | | | | LABORATORY | | + + + + + + | Specific | 1.010 | 1.001 - 1.030 | [facility] | | | [place] | | | [facility] | | | | | | HEART | | | | | | MEDICAL | | | | | | CENTER | | | | | | LABORATORY | | + + + + + + | pH, Urine | 7.0 | 5.0 - 7.5 | [facility] | | | | | | [facility] | | | | | | HEART | | | | | | MEDICAL | | | | | | CENTER | | | | | | LABORATORY | | + + + + + + | Protein, | 30 (A) | Negative mg/dL | [facility] | | | Urine | | | [facility] | | | | | | HEART | | | | | | MEDICAL | | | | | | CENTER | | | | | | LABORATORY | | + + + + + + | Urobilinoge | <2.0 | <2.0 mg/dL | [facility] | | | n, Urine | | | [facility] | | | | | | HEART | | | | | | MEDICAL | | | | | | CENTER | | | | | | LABORATORY | | + + + + + + | Nitrite, | Negative | Negative | [facility] | | | Urine | | | [facility] | | | | | | HEART | | | | | | MEDICAL | | | | | | CENTER | | | | | | LABORATORY | | + + + + + + | Blood, | Large (A) | Negative | [facility] | | | Urine | | | [facility] | | | | | | HEART | | | | | | MEDICAL | | | | | | CENTER | | | | | | LABORATORY | | + + + + + + | Leukocyte | Negative | Negative | [facility] | | | Esterase, | | | [facility] | | | Urine | | | HEART | | | | | | MEDICAL | | | | | | CENTER | | | | | | LABORATORY | | + + + + + + | White Blood | 3 | <6 /hpf | [facility] | | | Cells, | | | [facility] | | | Urine | | | HEART | | | | | | MEDICAL | | | | | | CENTER | | | | | | LABORATORY | | + + + + + + | Red Blood | 24 (H) | <6 /hpf | [facility] | | | Cells, | | | [facility] | | | Urine | | | HEART | | | | | | MEDICAL | | | | | | CENTER | | | | | | LABORATORY | | + + + + + + | Bacteria, | None seen | /hpf | [facility] | | | Urine | | | [facility] | | | | | | HEART | | | | | | MEDICAL | | | | | | CENTER | | | | | | LABORATORY | | + + + + + + | Squamous | Not clinically | /lpf | [facility] | | | Epithelial | significant.Comment: | | [facility] | | | Cells, | Healthy individuals show | | HEART | | | Urine | up to FEW squamous | | MEDICAL | | | | epithelial cells in the | | CENTER | | | | urine, depending on | | LABORATORY | | | | collection method. | | | | + + + + + + | Mucus, | Present (A) | None seen /lpf | [facility] | | | Urine | | | [facility] | | | | | | HEART | | | | | | MEDICAL | | | | | | CENTER | | | | | | LABORATORY | | + + + + + + | Culture | Culture not indicated | Culture not | [facility] | | | Indicated | | indicated | [facility] | | | | | | HEART | | | | | | MEDICAL | | | | | | CENTER | | | | | | LABORATORY | | + + + + + + + + | Specimen | + + | Urine - Urine | | specimen obtained by | | single | | catheterization of | | bladder (specimen) | + + + + + + + | Performing | Address | City/State/Zipcode | Phone Number | | Organization | | | | + + + + + | [facility] | [address] | [place] [address] | | | [facility] | | | | | LABORATORY | | | | + + + + + Procalcitonin (07/22/2017 4:26 PM PDT) + + + + + + | Component | Value | Ref Range | Performed | Pathologist | | | | | At | Signature | + + + + + + | Procalciton | 0.08Comment: | <0.1 ng/mL | [facility] | | | in | Procalcitonin of <0.5 | | [facility] | | | | ng/mL represents a low | | HEART | | | | risk of severe sepsis | | MEDICAL | | | | and/or septic shock, but | | CENTER | | | | does not rule out | | LABORATORY | | | | infection. Procalcitonin | | | | | | levels between 0.5 and | | | | | | 2.0 ng/mL are considered | | | | | | indeterminate in regard | | | | | | to risk for severe | | | | | | sepsis and/or septic | | | | | | shock. Procalcitonin of | | | | | | >2.0 ng/mL represents a | | | | | | high risk of severe | | | | | | sepsis and/or septic | | | | | | shock, but can occur | | | | | | without infection. | | | | + + + + + + + + | Specimen | + + | Blood | + + + + + + + | Performing | Address | City/State/Zipcode | Phone Number | | Organization | | | | + + + + + | [facility] | [address] | [place] [address] | | | [facility] | | | | | LABORATORY | | | | + + + + + Sodium (07/22/2017 4:26 PM PDT) + +---------+ + + + | Component | Value | Ref Range | Performed | Pathologist | | | | | At | Signature | + +---------+ + + + | Na | 126 (L) | 135 - 145 | [facility] | | | | | mmol/L | [facility] | | | | | | HEART | | | | | | MEDICAL | | | | | | CENTER | | | | | | LABORATORY | | + +---------+ + + + + + | Specimen | + + | Blood | + + + + + + + | Performing | Address | City/State/Zipcode | Phone Number | | Organization | | | | + + + + + | [facility] | [address] | [place] [address] | | | [facility] | | | | | LABORATORY | | | | + + + + + Ferritin (07/22/2017 12:29 PM PDT) + +-------+ + + + | Component | Value | Ref Range | Performed | Pathologist | | | | | At | Signature | + +-------+ + + + | FERRITIN | 202 | 11 - 307 ng/mL | [facility] | | | | | | [facility] | | | | | | HEART | | | | | | MEDICAL | | | | | | CENTER | | | | | | LABORATORY | | + +-------+ + + + + + | Specimen | + + | | + + + + + + + | Performing | Address | City/State/Zipcode | Phone Number | | Organization | | | | + + + + + | [facility] | [address] | [place] [address] | | | [facility] | | | | | LABORATORY | | | | + + + + + C-Reactive Protein (07/22/2017 12:29 PM PDT) + + + + + + | Component | Value | Ref Range | Performed | Pathologist | | | | | At | Signature | + + + + + + | CRP | 7.8 (H)Comment: This CRP | 0.0 - 1.5 mg/dL | [facility] | | | | assay is useful as a | | [facility] | | | | marker of acute | | HEART | | | | inflammation. For | | MEDICAL | | | | cardiac risk | | CENTER | | | | stratification order | | LABORATORY | | | | High Sensitive CRP, | | | | | | Order Code HCRP. | | | | + + + + + + + + | Specimen | + + | | + + + + + + + | Performing | Address | City/State/Zipcode | Phone Number | | Organization | | | | + + + + + | [facility] | [address] | [place] [address] | | | [facility] | | | | | LABORATORY | | | | + + + + + POC Glucose (07/22/2017 12:29 PM PDT) + +---------+ + + + | Component | Value | Ref Range | Performed | Pathologist | | | | | At | Signature | + +---------+ + + + | Glucose, | 113 (H) | 65 - 99 mg/dL | [facility] | | | POC | | | [facility] | | | | | | HEART | | | | | | MEDICAL | | | | | | CENTER | | | | | | LABORATORY | | + +---------+ + + + + + | Specimen | + + | | + + + + + + + | Performing | Address | City/State/Zipcode | Phone Number | | Organization | | | | + + + + + | [facility] | [address] | [place] [address] | | | [facility] | | | | | LABORATORY | | | | + + + + + Potassium (07/22/2017 12:29 PM PDT) + +-------+ + + + | Component | Value | Ref Range | Performed | Pathologist | | | | | At | Signature | + +-------+ + + + | K | 3.6 | 3.5 - 5.0 | [facility] | | | | | mmol/L | [facility] | | | | | | HEART | | | | | | MEDICAL | | | | | | CENTER | | | | | | LABORATORY | | + +-------+ + + + + + | Specimen | + + | Blood | + + + + + + + | Performing | Address | City/State/Zipcode | Phone Number | | Organization | | | | + + + + + | [facility] | [address] | [place] [address] | | | [facility] | | | | | LABORATORY | | | | + + + + + Phosphorus (07/22/2017 12:29 PM PDT) + +---------+ + + + | Component | Value | Ref Range | Performed | Pathologist | | | | | At | Signature | + +---------+ + + + | Phosphorus | 2.1 (L) | 2.3 - 4.8 mg/dL | [facility] | | | | | | [facility] | | | | | | HEART | | | | | | MEDICAL | | | | | | CENTER | | | | | | LABORATORY | | + +---------+ + + + + + | Specimen | + + | Blood | + + + + + + + | Performing | Address | City/State/Zipcode | Phone Number | | Organization | | | | + + + + + | [facility] | [address] | [place] [address] | | | [facility] | | | | | LABORATORY | | | | + + + + + Sodium (07/22/2017 12:29 PM PDT) + +---------+ + + + | Component | Value | Ref Range | Performed | Pathologist | | | | | At | Signature | + +---------+ + + + | Na | 126 (L) | 135 - 145 | [facility] | | | | | mmol/L | [facility] | | | | | | HEART | | | | | | MEDICAL | | | | | | CENTER | | | | | | LABORATORY | | + +---------+ + + + + + | Specimen | + + | Blood | + + + + + + + | Performing | Address | City/State/Zipcode | Phone Number | | Organization | | | | + + + + + | [facility] | [address] | [place] [address] | | | [facility] | | | | | LABORATORY | | | | + + + + + POC Glucose (07/22/2017 9:29 AM PDT) + +---------+ + + + | Component | Value | Ref Range | Performed | Pathologist | | | | | At | Signature | + +---------+ + + + | Glucose, | 112 (H) | 65 - 99 mg/dL | [facility] | | | POC | | | [facility] | | | | | | HEART | | | | | | MEDICAL | | | | | | CENTER | | | | | | LABORATORY | | + +---------+ + + + + + | Specimen | + + | | + + + + + + + | Performing | Address | City/State/Zipcode | Phone Number | | Organization | | | | + + + + + | [facility] | [address] | [place] [address] | | | [facility] | | | | | LABORATORY | | | | + + + + + POC Glucose (07/22/2017 8:04 AM PDT) + +---------+ + + + | Component | Value | Ref Range | Performed | Pathologist | | | | | At | Signature | + +---------+ + + + | Glucose, | 139 (H) | 65 - 99 mg/dL | [facility] | | | POC | | | [facility] | | | | | | HEART | | | | | | MEDICAL | | | | | | CENTER | | | | | | LABORATORY | | + +---------+ + + + + + | Specimen | + + | | + + + + + + + | Performing | Address | City/State/Zipcode | Phone Number | | Organization | | | | + + + + + | [facility] | [address] | [place] [address] | | | [facility] | | | | | LABORATORY | | | | + + + + + Sodium (07/22/2017 8:04 AM PDT) + +---------+ + + + | Component | Value | Ref Range | Performed | Pathologist | | | | | At | Signature | + +---------+ + + + | Na | 125 (L) | 135 - 145 | [facility] | | | | | mmol/L | [facility] | | | | | | HEART | | | | | | MEDICAL | | | | | | CENTER | | | | | | LABORATORY | | + +---------+ + + + + + | Specimen | + + | Blood | + + + + + + + | Performing | Address | City/State/Zipcode | Phone Number | | Organization | | | | + + + + + | [facility] | [address] | [place] [address] | | | [facility] | | | | | LABORATORY | | | | + + + + + POC Glucose (07/22/2017 6:58 AM PDT) + +--------+ + + + | Component | Value | Ref Range | Performed | Pathologist | | | | | At | Signature | + +--------+ + + + | Glucose, | 64 (L) | 65 - 99 mg/dL | [facility] | | | [facility] | | | | | | [facility] | | | | | | LABORATORY | | + +--------+ + + + + + | Specimen | + + | | + + + + + + + | Performing | Address | City/State/Zipcode | Phone Number | | Organization | | | | + + + + + | [facility] | [address] | [place] [address] | | | [facility] | | | | | LABORATORY | | | | + + + + + Osmolality, Urine (07/22/2017 1:14 AM PDT) + +-------+ + + + | Component | Value | Ref Range | Performed | Pathologist | | | | | At | Signature | + +-------+ + + + | Osmolality | 490 | 50 - 1,200 | [facility] | | | Urine | | mOsm/kg | [facility] | | | | | | [facility] | | | | | | [facility] | | | | | | [facility]ENTER | | | | | | LABORATORY | | + +-------+ + + + + + | Specimen | + + | Urine | + + + + + + + | Performing | Address | City/State/Zipcode | Phone Number | | Organization | | | | + + + + + | [facility] | [address] | [place] [address] | | | [facility] | | | | | LABORATORY | | | | + + + + + Sodium, Urine, Random (07/22/2017 1:14 AM PDT) + +-------+ + + + | Component | Value | Ref Range | Performed | Pathologist | | | | | At | Signature | + +-------+ + + + | Sodium, | 53 | 0 - 259 mmol/L | [facility] | | | Urine | | | [facility] | | | Random | | | [facility] | | | | | | MEDICAL | | | | | | CENTER | | | | | | LABORATORY | | + +-------+ + + + + + | Specimen | + + | Urine | + + + + + + + | Performing | Address | City/State/Zipcode | Phone Number | | Organization | | | | + + + + + | [facility] | [address] | [place] [address] | | | [facility] | | | | | LABORATORY | | | | + + + + + Sedimentation Rate (07/22/2017 12:36 AM PDT) + +-------+ + + + | Component | Value | Ref Range | Performed | Pathologist | | | | | At | Signature | + +-------+ + + + | Erythrocyte | 12 | 0 - 20 mm/h | [facility] | | | | [facility] | | | Sedimentati | | | HEART | | | on Rate | | | MEDICAL | | | | | | CENTER | | | | | | LABORATORY | | + +-------+ + + + + + | Specimen | + + | Blood | + + + + + + + | Performing | Address | City/State/Zipcode | Phone Number | | Organization | | | | + + + + + | [facility] | [address] | [place] [address] | | | [facility] | | | | | LAB[facility]ATORY | | | | + + + + + Sodium (07/22/2017 12:36 AM PDT) + +---------+ + + + | Component | Value | Ref Range | Performed | Pathologist | | | | | At | Signature | + +---------+ + + + | Na | 122 (L) | 135 - 145 | [facility] | | | | | mmol/L | [facility] | | | | | [facility] | | | | | | [facility] | | | | | | CENTER | | | | | | LABORATORY | | + +---------+ + + + + + | Specimen | + + | Blood | + + + + + + + | Performing | Address | City/State/Zipcode | Phone Number | | Organization | | | | + + + + + | [facility] | [address] | [place] [address] | | | [facility] | | | | | LABORATORY | | | | + + + + + Osmolality, Serum (07/22/2017 12:36 AM PDT) + +---------+ + + + | Component | Value | Ref Range | Performed | Pathologist | | | | | At | Signature | + +---------+ + + + | Osmolality | 263 (L) | 275 - 295 | [facility] | | | Serum | | mOsm/kg | [facility] | | | | | | [facility] | | | | | | MED[facility] | | | | | | CENTER | | | | | | LABORATORY | | + +---------+ + + + + + | Specimen | + + | Blood | + + + + + + + | Performing | Address | City/State/Zipcode | Phone Number | | Organization | | | | + + + + + | [facility] | [address] | [place] [address] | | | [facility] | | | | | LABORATORY | | | | + + + + + Phosphorus (07/22/2017 12:36 AM PDT) + +---------+ + + + | Component | Value | Ref Range | Performed | Pathologist | | | | | At | Signature | + +---------+ + + + | Phosphorus | 1.8 (L) | 2.3 - 4.8 mg/dL | [facility] | | [facility] | | | | | [facility] | | | | | | [facility] | | | | | | [facility]ENTER | | | | | | LABORATORY | | + +---------+ + + + + + | Specimen | + + | Blood | + + + + + + + | Performing | Address | City/State/Zipcode | Phone Number | | Organization | | | | + + + + + | [facility] | [address] | [place] [address] | | | [facility] | | | | | LABORATORY | | | | + + + + + Magnesium (07/22/2017 12:36 AM PDT) + +-------+ + + + | Component | Value | Ref Range | Performed | Pathologist | | | | | At | Signature | + +-------+ + + + | Magnesium | 1.8 | 1.7 - 2.4 mg/dL | [facility] | | [facility] | | [facility] | [facility] | | | | | | [facility] | | | | | | [facility]ENTER | | | | | | LABORATORY | | + +-------+ + + + + + | Specimen | + + | Blood | + + + + + + + | Performing | Address | City/State/Zipcode | Phone Number | | Organization | | | | + + + + + | [facility] | [address] | [place] [address] | | | [facility] | | | | | LABORATORY | | | | + + + + + Comprehensive Metabolic Panel (07/22/2017 12:36 AM PDT) + + + + + + | Component | Value | Ref Range | Performed | Pathologist | | | | | At | Signature | + + + + + + | Na | 123 (L) | 135 - 145 | [facility] | | | | | mmol/L | [facility] | | | | | | [facility] | | | | | | [facility] | | | | | | CENTER | | | | | | LABORATORY | | + + + + + + | K | 3.3 (L) | 3.5 - 5.0 | [facility] | | | | | mmol/L | [facility] | | | | | | [facility] | | | | | | MED[facility] | | | | | | CENTER | | | | | | LABORATORY | | + + + + + + | Cl | 93 (L) | 99 - 109 mmol/L | [facility] | | | | | | [facility] | | | | | | [facility] | | | | | | [facility] | | | | | | CENTER | | | | | | LABORATORY | | + + + + + + | CO2 | 21 | 21 - 28 mmol/L | [facility] | | | | | [facility] | | | | | | [facility] | | | | | | [facility] | | | | | | CENTER | | | | | | LABORATORY | | + + + + + + | Glucose | 329 (H)Comment: [place] | 65 - 99 mg/dL | [facility] | | | | Diabetes Association | | [facility] | | | | diagnostic categories | | HEART | | | | for non adults: | | MEDICAL | | | | Impaired fasting | | CENTER | | | | glucose 100 to 125 | | LABORATORY | | | | mg/dL. A fasting | | | | | | glucose result of 126 | | | | | | mg/dL or greater | | | | | | indicates diabetes if | | | | | | the abnormality is | | | | | | confirmed on a | | | | | | subsequent day. A | | | | | | random glucose result of | | | | | | greater than 200 mg/dL | | | | | | indicates diabetes if | | | | | | the abnormality is | | | | | | confirmed on a | | | | | | subsequent day. | | | | + + + + + + | BUN | 5 (L) | 8 - 25 mg/dL | [facility] | | | | [facility] | | | | | [facility] | | | | | | [facility] | | | | | | CENTER | | | | | | LABORATORY | | + + + + + + | Creatinine | 0.52Comment: IDMS | 0.50 - 1.00 | [facility] | | | | traceable creatinine | mg/dL | [facility] | | | | | | HE[facility] | | | | | | MEDICAL | | | | | | CENTER | | | | | | LABORATORY | | + + + + + + | Calcium | 7.8 (L) | 8.5 - 10.2 | [facility] | | | | | mg/dL | [facility] | | | | | | HE[facility] | | | | | | MEDICAL | | | | | | CENTER | | | | | | LABORATORY | | + + + + + + | Total | 5.6 (L) | 6.1 - 8.4 g/dL | [facility] | | | Protein | | | [facility] | | | | | | HE[facility] | | | | | | MEDICAL | | | | | | CENTER | | | | | | LABORATORY | | + + + + + + | Albumin | 3.3 (L) | 3.5 - 5.0 g/dL | [facility] | | | | | | [facility] | | | | | | [facility] | | | | | | MEDICAL | | | | | | CENTER | | | | | | LABORATORY | | + + + + + + | Bilirubin | 0.8 | 0.1 - 1.5 mg/dL | [facility] | | | Total | | | [facility] | | | | | | HEART | | | | | | MEDICAL | | | | | | CENTER | | | | | | LABORATORY | | + + + + + + | Alkaline | 66 | 35 - 115 U/L | [facility] | | | Phosphatase | | | [facility] | | | | | | HEART | | | | | | MEDICAL | | | | | | CENTER | | | | | | LABORATORY | | + + + + + + | AST | 33 | 10 - 45 U/L | [facility] | | | | | | [facility] | | | | | | [facility] | | | | | | MEDICAL | | | | | | CENTER | | | | | | LABORATORY | | + + + + + + | ALT | 17 | 10 - 65 U/L | [facility] | | | | | | [facility] | | | | | | [facility] | | | | | | MEDICAL | | | | | | CENTER | | | | | | LABORATORY | | + + + + + + | Anion Gap | 9 | 5 - 16 mmol/L | [facility] | | | | | | [facility] | | | | | | [facility] | | | | | | MEDICAL | | | | | | CENTER | | | | | | LABORATORY | | + + + + + + | Estimated | >60Comment: GFR <60: | >60 | [facility] | | | GFR | Chronic kidney disease, | ml/min/1.73m2 | [facility] | | | | if found over a 3 month | | HEART | | | | period.GFR <15: Kidney | | MEDICAL | | | | failure.For | | CENTER | | | | Americans, multiply the | | LABORATORY | | | | calculated GFR by 1.210 | | | | + + + + + + + + | Specimen | + + | Blood | + + + + + + + | Performing | Address | City/State/Zipcode | Phone Number | | Organization | | | | + + + + + | [facility] | [address] | [place] [address] | | | [facility] | | | | | LABORATORY | | | | + + + + + CBC no Differential (07/22/2017 12:36 AM PDT) + + + + + + | Component | Value | Ref Range | Performed | Pathologist | | | | | At | Signature | + + + + + + | WBC | 5.9 | 3.8 - 11.0 K/uL | [facility] | | | | | | [facility] | | | | | | [facility] | | | | | | MED[facility] | | | | | | CENTER | | | | | | LABORATORY | | + + + + + + | RBC | 3.81 | 3.70 - 5.10 | [facility] | | | | | M/uL | [facility] | | | | | | [facility] | | | | | | MEDICAL | | | | | | CENTER | | | | | | LABORATORY | | + + + + + + | Hemoglobin | 10.9 (L) | 11.3 - 15.5 | [facility] | | | | | g/dL | [facility] | | | | | | HE[facility] | | | | | | MEDICAL | | | | | | CENTER | | | | | | LABORATORY | | + + + + + + | Hematocrit | 30.6 (L) | 34.0 - 46.0 % | [facility] | | | | | | [facility] | | | | | | [facility] | | | | | | MEDICAL | | | | | | CENTER | | | | | | LABORATORY | | + + + + + + | MCV | 80.4 | 80.0 - 100.0 fL | [facility] | | | | | | [facility] | | | | | | [facility] | | | | | | MEDICAL | | | | | | CENTER | | | | | | LABORATORY | | + + + + + + | MCH | 28.6 | 27.0 - 34.0 pg | [facility] | | | | | | [facility] | | | | | | [facility] | | | | | | MEDICAL | | | | | | CENTER | | | | | | LABORATORY | | + + + + + + | MCHC | 35.6 (H) | 32.0 - 35.5 | [facility] | | | | | g/dL | [facility] | | | | | | HE[facility] | | | | | | MEDICAL | | | | | | CENTER | | | | | | LABORATORY | | + + + + + + | RDW-CV | 13.2 | 11.0 - 15.5 % | [facility] | | | | | | [facility] | | | | | | [facility] | | | | | | MEDICAL | | | | | | CENTER | | | | | | LABORATORY | | + + + + + + | Platelet | 113 (L) | 150 - 400 K/uL | [facility] | | | Count | | | [facility] | | | | | | HEART | | | | | | MEDICAL | | | | | | CENTER | | | | | | LABORATORY | | + + + + + + + + | Specimen | + + | Blood | + + + + + + + | Performing | Address | City/State/Zipcode | Phone Number | | Organization | | | | + + + + + | [facility] | [address] | [place] [address] | | | [facility] | | | | | LABORATORY | | | | + + + + + XR Chest AP Portable (07/21/2017 10:18 PM PDT) + + | Specimen | + + | | + + + + + | Narrative | Performed At | + + + | CHEST PORTABLE ONE VIEW CLINICAL INFORMATION: Respiratory | [facility] | | distress. COMPARISON: None. FINDINGS: Cardiomediastinal | | | contours are within normal limits. Lungs are clear. No large | | | effusion. No visible pneumothorax. No acute bony abnormalities. | | | IMPRESSION: Negative chest. Signed by: Susie Andrade | | + + + + + | Procedure Note | + + | Manohar, Rad Results In - 07/21/2017 10:51 PM PDT | | CHEST PORTABLE ONE VIEW | | | | CLINICAL INFORMATION: | | Respiratory distress. | | | | COMPARISON: | | None. | | | | FINDINGS: | | Cardiomediastinal contours are within normal limits. Lungs are | | clear. No large effusion. No visible pneumothorax. No acute bony | | abnormalities. | | | | IMPRESSION: | | Negative chest. | | | | | | | | Signed by: Susie Andrade | + + + +---------+ + + | Performing | Address | City/State/Zipcode | Phone Number | | Organization | | | | + +---------+ + + | [facility] | | | | + +---------+ + + Sodium (07/21/2017 8:10 PM PDT) + +---------+ + + + | Component | Value | Ref Range | Performed | Pathologist | | | | | At | Signature | + +---------+ + + + | Na | 126 (L) | 135 - 145 | [facility] | | | | | mmol/L | [facility] | | | | | | HE[facility] | | | | | | MEDICAL | | | | | | CENTER | | | | | | LABORATORY | | + +---------+ + + + + + | Specimen | + + | Blood | + + + + + + + | Performing | Address | City/State/Zipcode | Phone Number | | Organization | | | | + + + + + | [facility] | [address] | [place] [address] | | | [facility] | | | | | LABORATORY | | | | + + + + + Creatinine, Urine, Random (07/21/2017 4:50 PM PDT) + +-------+ + + + | Component | Value | Ref Range | Performed | Pathologist | | | | | At | Signature | + +-------+ + + + | Creatinine, | 27 | 19 - 311 mg/dL | [facility] | | | random | | | [facility] | | | urine | | | HEART | | | | | | MEDICAL | | | | | | CENTER | | | | | | LABORATORY | | + +-------+ + + + + + | Specimen | + + | Urine | + + + + + + + | Performing | Address | City/State/Zipcode | Phone Number | | Organization | | | | + + + + + | [facility] | [address] | [place] [address] | | | [facility] | | | | | LABORATORY | | | | + + + + + Drugs of Abuse, Screen, Urine (07/21/2017 4:50 PM PDT) + + + + + + | Component | Value | Ref Range | Performed | Pathologist | | | | | At | Signature | + + + + + + | Cannabinoid | Negative | Negative | [facility] | | | s Screen, | | | [facility]CR[facility] | | | Urine | | | HEART | | | | | | MEDICAL | | | | | | CENTER | | | | | | LABORATORY | | + + + + + + | Phencyclidi | Negative | Negative | [facility] | | | ne Screen, | | | [facility]CR[facility] | | | Urine | | | HEART | | | | | | MEDICAL | | | | | | CENTER | | | | | | LABORATORY | | + + + + + + | Cocaine | Negative | Negative | [facility] | | | Metabolites | | | [facility]CR[facility] | | | , Ur | | | HEART | | | | | | MEDICAL | | | | | | CENTER | | | | | | LABORATORY | | + + + + + + | Methampheta | Negative | Negative | [facility] | | | mine | | | [facility] | | | Screen, | | | HEART | | | Urine | | | MEDICAL | | | | | | CENTER | | | | | | LABORATORY | | + + + + + + | Opiate | Negative | Negative | [facility] | | | Screen, | | | [facility]CR[facility] | | | Urine | | | HEART | | | | | | MEDICAL | | | | | | CENTER | | | | | | LABORATORY | | + + + + + + | Amphetamine | Negative | Negative | [facility] | | | Screen, | | | [facility]CR[facility] | | | Urine | | | HEART | | | | | | MEDICAL | | | | | | CENTER | | | | | | LABORATORY | | + + + + + + | Benzodiazep | Positive (A) | Negative | [facility] | | | ania | | | [facility] | | | Screen, | | | HEART | | | Urine | | | MEDICAL | | | | | | CENTER | | | | | | LABORATORY | | + + + + + + | Tricyclics, | Negative | Negative | [facility] | | | UR | | | [facility] | | | | | | HEART | | | | | | MEDICAL | | | | | | CENTER | | | | | | LABORATORY | | + + + + + + | Methadone | Negative | Negative | [facility] | | | Screen, | | | SACR[facility] | | | Urine | | | HEART | | | | | | MEDICAL | | | | | | CENTER | | | | | | LABORATORY | | + + + + + + | Barbiturate | Negative | Negative | [facility] | | | s Screen, | | | [facility]CR[facility] | | | Urine | | | HEART | | | | | | MEDICAL | | | | | | CENTER | | | | | | LABORATORY | | + + + + + + | Oxycodone, | Negative | Negative | [facility] | | | UR | | | [facility] | | | | | | HEART | | | | | | MEDICAL | | | | | | CENTER | | | | | | LABORATORY | | + + + + + + | Porpoxyphen | Negative | Negative | [facility] | | | e Screen, | | | [facility]CR[facility] | | | Urine | | | HEART | | | | | | MEDICAL | | | | | | CENTER | | | | | | LABORATORY | | + + + + + + | Buprenorphi | NegativeComment: This | Negative | [facility] | | | ne Screen, | entire battery is for | | [facility] | | | Urine | screening purposes only. | | HEART | | | | Results are not | | MEDICAL | | | | confirmed.Please note: | | CENTER | | | | Some medications cause | | LABORATORY | | | | positive results with | | | | | | any or all tested drugs | | | | | | in this battery.Results | | | | | | from any unconfirmed | | | | | | drug in this screening | | | | | | battery should not be | | | | | | used for legal purposes. | | | | | | | | | | + + + + + + + + | Specimen | + + | Urine | + + + + + + + | Performing | Address | City/State/Zipcode | Phone Number | | Organization | | | | + + + + + | [facility] | [address] | [place] [address] | | | [facility] | | | | | LABORATORY | | | | + + + + + CT Head wo Contrast (07/21/2017 4:39 PM PDT) + + | Specimen | + + | | + + + + + | Narrative | Performed At | + + + | CT HEAD WITHOUT CONTRAST CLINICAL INFORMATION: Hyponatremia, | [facility] | | seizure, and encephalopathy. Patient is confused and disoriented and | | | unable to hold still. COMPARISON: Reviewed without comparison. | | | PROCEDURE: Axial images were obtained through the head without IV | | | contrast. Multiplanar reformations were obtained from the acquisition | | | data. At least one of the following CT dose optimization | | | techniques were used: Automated exposure control; Adjustment of mA | | | and/or kV according to patient size; Use of iterative reconstruction | | | technique. FINDINGS: Artifact obscures the study. Brain: | | | Given the artifact, no definite mass effect or acute intracranial | | | hemorrhage is seen. Lemon-white differentiation is more difficult to | | | accurately assess secondary to the artifact. If detection for a | | | subtle acute stroke is suspected, MRI recommended. Ventricles and | | | extra-axial fluid spaces: No abnormal extra-axial fluid collections. | | | Ventricles are midline and symmetric. Paranasal sinuses and | | | mastoid air cells: Normal. Calvarium and extracranial soft | | | tissues: Normal. Orbits: Imaged portions of the orbits are normal. | | | IMPRESSION: No acute hemorrhage or mass effect. Artifact | | | precludes evaluation of lemon-white differentiation. Signed | | | by: Randolph Doyle | | + + + + + | Procedure Note | + + | Manohar, Rad Results In - 07/21/2017 5:16 PM PDT | | CT HEAD WITHOUT CONTRAST | | | | CLINICAL INFORMATION: | | Hyponatremia, seizure, and encephalopathy. Patient is confused and | | disoriented and unable to hold still. | | | | COMPARISON: | | Reviewed without comparison. | | | | PROCEDURE: | | Axial images were obtained through the head without IV contrast. | | Multiplanar reformations were obtained from the acquisition data. | | | | At least one of the following CT dose optimization techniques were | | used: Automated exposure control; Adjustment of mA and/or kV | | according to patient size; Use of iterative reconstruction technique. | | | | FINDINGS: | | Artifact obscures the study. | | | | Brain: Given the artifact, no definite mass effect or acute | | intracranial hemorrhage is seen. Lemon-white differentiation is more | | difficult to accurately assess secondary to the artifact. If | | detection for a subtle acute stroke is suspected, MRI recommended. | | | | Ventricles and extra-axial fluid spaces: No abnormal extra-axial | | fluid collections. Ventricles are midline and symmetric. | | | | Paranasal sinuses and mastoid air cells: Normal. | | | | Calvarium and extracranial soft tissues: Normal. | | | | Orbits: Imaged portions of the orbits are normal. | | | | IMPRESSION: | | No acute hemorrhage or mass effect. Artifact precludes evaluation of | | lemon-white differentiation. | | | | | | | | Signed by: Randolph Doyle | + + + +---------+ + + | Performing | Address | City/State/Zipcode | Phone Number | | Organization | | | | + +---------+ + + | [facility] | | | | + +---------+ + + Sodium (07/21/2017 4:05 PM PDT) + +---------+ + + + | Component | Value | Ref Range | Performed | Pathologist | | | | | At | Signature | + +---------+ + + + | Na | 125 (L) | 135 - 145 | [facility] | | | | | mmol/L | [facility] | | | | | | HEART | | | | | | MEDICAL | | | | | | CENTER | | | | | | LABORATORY | | + +---------+ + + + + + | Specimen | + + | Blood | + + + + + + + | Performing | Address | City/State/Zipcode | Phone Number | | Organization | | | | + + + + + | [facility] | [address] | [place] [address] | | | [facility] | | | | | LABORATORY | | | | + + + + + Urinalysis with Microscopic with Culture if Indicated (07/21/2017 2:00 PM PDT) + + + + + + | Component | Value | Ref Range | Performed | Pathologist | | | | | At | Signature | + + + + + + | Color, | Straw | | [facility] | | | Urine | | | [facility] | | | | | | HEART | | | | | | MEDICAL | | | | | | CENTER | | | | | | LABORATORY | | + + + + + + | Clarity | Clear | | [facility] | | | | | | [facility] | | | | | | HEART | | | | | | MEDICAL | | | | | | CENTER | | | | | | LABORATORY | | + + + + + + | Glucose, | Negative | Negative mg/dL | [facility] | | | Urine | | | [facility] | | | | | | HEART | | | | | | MEDICAL | | | | | | CENTER | | | | | | LABORATORY | | + + + + + + | Bilirubin, | Negative | Negative | [facility] | | | Urine | | | [facility] | | | | | | HEART | | | | | | MEDICAL | | | | | | CENTER | | | | | | LABORATORY | | + + + + + + | Ketones, | Trace (A) | Negative mg/dL | [facility] | | | Urine | | | [facility] | | | | | | HEART | | | | | | MEDICAL | | | | | | CENTER | | | | | | LABORATORY | | + + + + + + | Specific | 1.005 | 1.001 - 1.030 | [facility] | | | [place] | | | [facility] | | | | | | HEART | | | | | | MEDICAL | | | | | | CENTER | | | | | | LABORATORY | | + + + + + + | pH, Urine | 7.0 | 5.0 - 7.5 | [facility] | | | | | | [facility] | | | | | | HEART | | | | | | MEDICAL | | | | | | CENTER | | | | | | LABORATORY | | + + + + + + | Protein, | Negative | Negative mg/dL | [facility] | | | Urine | | | [facility] | | | | | | HEART | | | | | | MEDICAL | | | | | | CENTER | | | | | | LABORATORY | | + + + + + + | Urobilinoge | <2.0 | <2.0 mg/dL | [facility] | | | n, Urine | | | [facility] | | | | | | HEART | | | | | | MEDICAL | | | | | | CENTER | | | | | | LABORATORY | | + + + + + + | Nitrite, | Negative | Negative | [facility] | | | Urine | | | [facility] | | | | | | HEART | | | | | | MEDICAL | | | | | | CENTER | | | | | | LABORATORY | | + + + + + + | Blood, | Moderate (A) | Negative | [facility] | | | Urine | | | [facility] | | | | | | HEART | | | | | | MEDICAL | | | | | | CENTER | | | | | | LABORATORY | | + + + + + + | Leukocyte | Negative | Negative | [facility] | | | Esterase, | | | [facility] | | | Urine | | | HEART | | | | | | MEDICAL | | | | | | CENTER | | | | | | LABORATORY | | + + + + + + | White Blood | 1 | <6 /hpf | [facility] | | | Cells, | | | [facility] | | | Urine | | | HEART | | | | | | MEDICAL | | | | | | CENTER | | | | | | LABORATORY | | + + + + + + | Red Blood | <1 | <6 /hpf | [facility] | | | Cells, | | | [facility] | | | Urine | | | HEART | | | | | | MEDICAL | | | | | | CENTER | | | | | | LABORATORY | | + + + + + + | Bacteria, | None seen | /hpf | [facility] | | | Urine | | | [facility] | | | | | | HEART | | | | | | MEDICAL | | | | | | CENTER | | | | | | LABORATORY | | + + + + + + | Squamous | Not clinically | /lpf | [facility] | | | Epithelial | significant.Comment: | | [facility] | | | Cells, | Healthy individuals show | | HEART | | | Urine | up to FEW squamous | | MEDICAL | | | | epithelial cells in the | | CENTER | | | | urine, depending on | | LABORATORY | | | | collection method. | | | | + + + + + + | Culture | Culture not indicated | Culture not | [facility] | | | Indicated | | indicated | [facility] | | | | | | HEART | | | | | | MEDICAL | | | | | | CENTER | | | | | | LABORATORY | | + + + + + + + + | Specimen | + + | Urine - Urine | | specimen obtained by | | single | | catheterization of | | bladder (specimen) | + + + + + + + | Performing | Address | City/State/Zipcode | Phone Number | | Organization | | | | + + + + + | [facility] | [address] | [place] [address] | | | [facility] | | | | | LABORATORY | | | | + + + + + T4, Free (07/21/2017 11:25 AM PDT) + +-------+ + + + | Component | Value | Ref Range | Performed | Pathologist | | | | | At | Signature | + +-------+ + + + | FT4 | 0.90 | 0.7 - 1.5 ng/dL | [facility] | | | | | | [facility] | | | | | | HEART | | | | | | MEDICAL | | | | | | CENTER | | | | | | LABORATORY | | + +-------+ + + + + + | Specimen | + + | Blood | + + + + + + + | Performing | Address | City/State/Zipcode | Phone Number | | Organization | | | | + + + + + | [facility] | [address] | [place] [address] | | | [facility] | | | | | LABORATORY | | | | + + + + + Basic Metabolic Panel (07/21/2017 11:25 AM PDT) + + + + + + | Component | Value | Ref Range | Performed | Pathologist | | | | | At | Signature | + + + + + + | Na | 120 (LL) | 135 - 145 | [facility] | | | | Comment: | mmol/L | [facility] | | | | Verified by readback. | | HEART | | | | CALLED TO [address] [address], [address] | | MEDICAL | | | | | | CENTER | | | | | | LABORATORY | | + + + + + + | K | 4.1Comment: Slight | 3.5 - 5.0 | [facility] | | | | Hemolysis | mmol/L | [facility] | | | | | | HEART | | | | | | MEDICAL | | | | | | CENTER | | | | | | LABORATORY | | + + + + + + | Cl | 90 (L) | 99 - 109 mmol/L | [facility] | | | | | | [facility] | | | | | | HEART | | | | | | MEDICAL | | | | | | CENTER | | | | | | LABORATORY | | + + + + + + | CO2 | 20 (L) | 21 - 28 mmol/L | [facility] | | | | | | [facility] | | | | | [facility] | [facility] | [facility] | | | | | | [facility] | | | | | | LABORATORY | | + + + + + + | Glucose | 129 (H)Comment: [place] | 65 - 99 mg/dL | [facility] | | | | [facility] [employer] | | [facility] | | | | diagnostic categories | | HEART | | | | for non adults: | | MEDICAL | | | | Impaired fasting | | CENTER | | | | glucose 100 to 125 | | LABORATORY | | | | mg/dL. A fasting | | | | | | glucose result of 126 | | | | | | mg/dL or greater | | | | | | indicates diabetes if | | | | | | the abnormality is | | | | | | confirmed on a | | | | | | subsequent day. A | | | | | | random glucose result of | | | | | | greater than 200 mg/dL | | | | | | indicates diabetes if | | | | | | the abnormality is | | | | | | confirmed on a | | | | | | subsequent day. | | | | + + + + + + | BUN | 3 (L) | 8 - 25 mg/dL | [facility] | | | [facility] | | | | | | [facility]ENTER | | | | | | LABORATORY | | + + + + + + | Creatinine | 0.50Comment: IDMS | 0.50 - 1.00 | [facility] | | | | traceable creatinine | mg/dL | [facility] | [facility] | | | | | | [facility] | | | | | | [facility]ENTER | | | | | | LABORATORY | | + + + + + + | Calcium | 8.7 | 8.5 - 10.2 | [facility] | | | | | mg/dL | [facility] | [facility] | [facility] | | | | | | [facility] | | | | | | [facility]ENTER | | | | | | LABORATORY | | + + + + + + | Anion Gap | 10 | 5 - 16 mmol/L | [facility] | | | | | | [facility] | | | | | | [facility] | | | | | | LABORATORY | | + + + + + + | Estimated | >60Comment: GFR <60: | >60 | [facility] | | | GFR | Chronic kidney disease, | ml/min/1.73m2 | [facility] | | | | if found over a 3 month | | HEART | | | | period.GFR <15: Kidney | | MEDICAL | | | | failure.For | | CENTER | | | | Americans, multiply the | | LABORATORY | | | | calculated GFR by 1.210 | | | | + + + + + + + + | Specimen | + + | Blood | + + + + + + + | Performing | Address | City/State/Zipcode | Phone Number | | Organization | | | | + + + + + | [facility] | [address] | [place] [address] | | | [facility] | | | | | LABORATORY | | | | + + + + + MRSA NAAT (07/21/2017 10:07 AM PDT) + + + + + + | Component | Value | Ref Range | Performed | Pathologist | | | | | At | Signature | + + + + + + | Specimen | Nasal | | [facility] | | | Source | | | [facility] | | | | | [facility] | | | | | | [facility] | | | | | | CENTER | | | | | | LABORATORY | | + + + + + + | MRSA BY | Negative | Negative | [facility] | | | PCR. | | | [facility] | | | | | | [facility] | | | | | | [facility] | | | | | | [facility]ENTER | | | | | | LABORATORY | | + + + + + + + + | Specimen | + + | Respiratory - | | Nasal/Nose | + + + + + + + | Performing | Address | City/State/Zipcode | Phone Number | | Organization | | | | + + + + + | [facility] | [address] | [place] [address] | | | [facility] | | | | | LABORATORY | | | | + + + + + POC Glucose (07/21/2017 9:43 AM PDT) + +---------+ + + + | Component | Value | Ref Range | Performed | Pathologist | | | | | At | Signature | + +---------+ + + + | Glucose, | 134 (H) | 65 - 99 mg/dL | [facility] | | | POC | | | [facility] | | | | | [facility] | | | | | | [facility] | | | | | | [facility]ENTER | | | | | | LABORATORY | | + +---------+ + + + + + | Specimen | + + | | + + + + + + + | Performing | Address | City/State/Zipcode | Phone Number | | Organization | | | | + + + + + | [facility] | [address] | [place] [address] | | | [facility] | | | | | LABORATORY | | | | + + + + + documented in this encounter Visit Diagnoses + + | Diagnosis | + + | Dysphagia, unspecified type | + + documented in this encounter Administered Medications + +--------+ + +------+------+ | Medication Order | MAR | Action | Dose | Rate | Site | | | Action | Date | | | | + +--------+ + +------+------+ | adult multivitamin with | Given | 07/25/20 | 1 tablet | | | | minerals/iron tablet 1 tablet 1 | | 17 9:43 | | | | | tablet, Oral, DAILY, First dose | | AM PDT | | | | | on 07/24/17 at 1130 | | | | | | + +--------+ + +------+------+ +-------+ + +---+---+ | Given | 07/24/20 | 1 tablet | | | | | 17 11:53 | | | | | | AM PDT | | | | +-------+ + +---+---+ +---+---+ | | | +---+---+ + +-------+ +-------+---+---+ | albuterol-ipratropium (DUONEB) | Given | 07/22/20 | 3 mLs | | | | 2.5-0.5 mg/3 mL nebulizer | | 17 5:55 | | | | | solution 3 mL 3 mL, | | PM PDT | | | | | Nebulization, RT EVERY 6 HOURS | | | | | | | PRN, Wheezing, Shortness of | | | | | | | Breath, Starting Wendy 07/22/17 at | | | | | | | 1739 | | | | | | + +-------+ +-------+---+---+ +---+---+ | | | +---+---+ + +-------+ +---------+---+---+ | ALPRAZolam (XANAX) tablet 0.25 | Given | 07/25/20 | 0.25 mg | | | | mg 0.25 mg, Oral, 3 TIMES DAILY | | 17 5:44 | | | | | PRN, Anxiety, Starting 07/24/17 | | AM PDT | | | | | at 1110 | | | | | | + +-------+ +---------+---+---+ +-------+ +---------+---+---+ | Given | 07/24/20 | 0.25 mg | | | | | 17 9:16 | | | | | | PM PDT | | | | +-------+ +---------+---+---+ + +---+ | | | + +---+ | LORazepam (ATIVAN) injection | | | 0.5-1 mg 0.5-1 mg, Intravenous, | | | EVERY 4 HOURS PRN, Seizures, | | | Starting 07/24/17 at 1110 | | + +---+ | | | + +---+ | ondansetron (ZOFRAN) injection | | | 4 mg 4 mg, Intravenous, EVERY 6 | | | HOURS PRN, Nausea, Starting Wed | | | 07/21/17 at 1025, First line | | | agent, | | + +---+ | | | + +---+ + +-------+ +-------+---+---+ | pantoprazole (PROTONIX) DR | Given | 07/25/20 | 40 mg | | | | tablet 40 mg 40 mg, Oral, DAILY | | 17 8:13 | | | | | BEFORE BREAKFAST, First dose on | | AM PDT | | | | | 07/24/17 at 1130, Do not cut or | | | | | | | crush., | | | | | | + +-------+ +-------+---+---+ +---+---+ | | | +---+---+ + +---------+ +--------+-------+---+ | thiamine (VITAMIN B-1) 100 mg | New Bag | 07/25/20 | 100 mg | 102 | | | in sodium chloride 0.9% 50 mL | | 17 9:44 | | mL/hr | | | IVPB 100 mg, Intravenous, | | AM PDT | | | | | Administer over 30 Minutes, 3 | | | | | | | TIMES DAILY, First dose on Sat | | | | | | | 07/24/17 at 0900, For 3 days | | | | | | + +---------+ +--------+-------+---+ +---------+ +--------+-------+---+ | New Bag | 07/24/20 | 100 mg | 102 | | | | 17 9:26 | | mL/hr | | | | PM PDT | | | | +---------+ +--------+-------+---+ | New Bag | 07/24/20 | 100 mg | 102 | | | | 17 2:45 | | mL/hr | | | | PM PDT | | | | +---------+ +--------+-------+---+ +---+---+ | | | +---+---+ documented in this encounter
--- OUTSIDE RECORDS SUMMARY | ~2020-05-16 | XMS | Encounter Summary ---
Demographics + + + | Address | [address] | | | [place] [address] | + + + | Home Phone | | + + + | Preferred Language | Unknown | + + + | Marital Status | Single | + + + | Church Affiliation | 1013 | + + + | Race | Unknown | + + + | Ethnic Group | Unknown | + + + Author + + + | Author | [facility] | | | and [place] | + + + | Organization | [facility] | | | [...] Team Providers + +------+ + | Care Rag Production Worker Name | Role | Phone | + +------+ + | James Farmer MD | PCP | | + +------+ + Reason for Visit +---------+--------+ + | Reason | Onset | Comments | | | Date | | +---------+--------+ + | Results | 12/14/ | | | | 2018 | | +---------+--------+ + Encounter Details +--------+ + + + + | Date | Type | Department | Care Team | Description | +--------+ + + + + | 12/14/ | Telephone | [facility] | Loi Hui MD | Results | | 2017 | | GASTROENTEROLOGY | [address] | | | | | [address] [facility] | [place], [place] | | | | | [address] [place], [place] | [address] | | | | | [address] | [phone] | | | | | [phone] | | | +--------+ + + + [...] this encounter Miscellaneous Notes Telephone Encounter - Zarina Ramon RN - 12/14/2017 3:16 PM PSTSpoke with patient and r ead results letter indicating Mares's esophagus, and need to repeat EGD in 3 years for sandra veillance; hard copy was mailed yesterday and routed to PCP with pathology; advised to [address] and follow up with PCP regarding when she is ready to schedule screening colon, she has appt with PCP on 01/03; did note improvement in swallowing following dilation; recall viktor garry to contact in 3 years. P M PSTdocumented in this encounter Plan of Treatment Not on filedocumented as of this encounter Visit Diagnoses Not on filedocumented in this encounter"
--- OUTSIDE RECORDS SUMMARY | ~2020-05-16 | XMS | Encounter Summary ---
Demographics + + + | Address | [address] | | | [place] [address] | + + + | Home Phone | | + + + | Preferred Language | Unknown | + + + | Marital Status | Single | + + + | Quaker Affiliation | 1013 | + + + | Race | Unknown | + + + | Ethnic Group | Unknown | + + + Author + + + | Author | [facility] | | | and [place] | + + + | Organization | [facility] | | [...] Team Providers + +------+ + | Care Parachute Packer Name | Role | Phone | + +------+ + | James Farmer MD | PCP | | + +------+ + Reason for Visit + + + | Reason | Comments | + + + | Discharge Without | | | Visit | | + + + Encounter Details +--------+ + + + + | Date | Type | Department | Care Team | Description | +--------+ + + + + | 07/25/ | Documentati | [facility] | Radha Carranza | Discharge Without | | 2019 | on | [facility] | D, PT [address] | Visit | | | | [address] | [address] [place] | | | | | [place] | [id number] | | | | | [address] | | | | | | [phone] | | | +--------+ + + + [...] documented as of this encounter Progress Notes Radha Carranza, PT - 07/25/2019 2:03 PM PDT [facility] [address] [place] [id number] Physical Therapy Discharge Note This discharge is associated with the evaluation completed on 05/31/19. Date: 07/25/2019 Patient Information Patient Name: Cherrie Quijano Date of : 1960 Age: 58 y.o. Encounter Diagnoses Code Name Primary? M54.5, G89.29 Chronic bilateral low back pain without sciatica Z74.09 Impaired functional mobility, balance, gait, and endurance R26.81 Gait instability Date of Onset: 04/20/2019 Referring Provider: Dr. James Farmer Total Number of Visits Completed: 4 Total Cancellations: 0 Total No Shows: 0 Patient has been informed that we are unable to get further visits authorized through [employer] and given info re: calling here if she has any further questions. The last progress note or the patients initial evaluation will serve as objective status for purposes of discharge. Electronically signed by: Radha Carranza PT, 07/25/2019 14:04 Patient Name: Cherrie Quijano/: 1960/ ly signed by James Farmer MD at 07/25/2019 2:37 PM PDTdocumented in this encounter Plan of Treatment Not on filedocumented as of this encounter Visit Diagnoses + + | Diagnosis | + + | Chronic bilateral low back pain without sciatica | + + | Impaired functional mobility, balance, gait, and endurance | + + | Gait instability Abnormality of gait | + + documented in this encounter"
--- OUTSIDE RECORDS SUMMARY | ~2020-05-16 | XMS | Encounter Summary ---
Demographics + + + | Address | [address] | | | [place] [address] | + + + | Home Phone | | + + + | Preferred Language | Unknown | + + + | Marital Status | Single | + + + | Nondenominational Affiliation | [id number] | + + + | Race | Unknown | + + + | Ethnic Group | Unknown | + + + Author + + + | Author | [facility] | | | and [place] | + + + | Organization | [facility] | | | and [...] Team Providers + +------+ + | Care Housekeeping Department Worker Name | Role | Phone | [...] | | | dysphagia | | [place] [address] | | | | | Hiatal | | Phone: | | | | | hernia with | | [phone] | | | | | GERD Reflux | | Fax: | | | | | esophagitis | | [phone] | | | | | Obesity | [...] | | | | | | | [place] | | | | | | | ESOPHAGOGAST | | | | | | | RODUODENOSCO | | | | | | | PY TRANSORAL | | | | | | | DIAGNOSTIC | | | | | | | [place] EGD | | | | | | | TRANSORAL | | | | | | | BIOPSY | | | | | | | SINGLE/MULTI | | | | | | | PLE [place] | | | | | | | [...] Description | +--------+---------+ + + + | 04/05/ | Surgery | [facility] | Loi Hui MD | EGD | | 2019 | | [facility] | [address] | | | | | [address] | [place], [place] | | | | | [place] | [address] | | | | | [address] | [phone] | | | | | [phone] | | | +--------+---------+ + + + [...] + + + | Blood Pressure | 124/82 | 04/05/2019 1:54 PM | | | | | PDT | | + + + + + | Pulse | 85 | 04/05/2019 1:54 PM | | | | | PDT | | + + + + + | Temperature | 36.6 C (97.9 F) | 04/05/2019 1:54 PM | | | | | PDT | | + + + + + | Respiratory Rate | 16 | 04/05/2019 1:54 PM | | | | | PDT | | + + + + + | Oxygen Saturation | 97% | 04/05/2019 1:54 PM | | | | | PDT | | + + + + + | Inhaled Oxygen | - | - | | | Concentration | | | | + + + + + | Weight | 88 kg (194 lb 0.1 | 04/05/2019 1:54 PM | | | | oz) | PDT | | + + + + + | Height | 160 cm (5' 3") | 04/05/2019 1:54 PM | | | | | PDT | | + + + + + | Body Mass Index | 34.37 | 04/05/2019 1:54 PM | | | | | PDT | | + + + + + documented in this encounter Medications at Time of Discharge + + + +---------+ + + | Medication | Sig | Dispensed | Refills | Start | End Date | | | | | | Date | | + + + +---------+ + + | ascorbic acid | Take 500 mg by mouth | | 0 | | | | (VITAMIN C) 500 mg | Daily. | | | | | | chewable tablet | | | | | | + + + +---------+ + + | bismuth | Take 524 mg by mouth | | 0 | | | | subsalicylate (PEPTO | Daily as needed. | | | | | | BISMOL) 262 mg | | | | | | | chewable tablet | | | | | | + + + +---------+ + + | Cyanocobalamin | Take 1 tablet by | | 0 | | | | (B-12 PO) | mouth Daily. | | | | | + + + +---------+ + + | Multiple Vitamin | Take 1 tablet by | | 0 | | | | (MULTI-VITAMIN PO) | mouth Daily. | | | | | + + + +---------+ + + | UNABLE TO FIND | Take 1-2 capsules by | | 0 | | | | | mouth Daily. Focus | | | | | | | Factor | | | | | + + + +---------+ + + | | Take 1 capsule by | | 0 | | | | 5-Hydroxytryptophan | mouth nightly. | | | | 9 | | (5-HTP PO) | | | | | | + + + +---------+ + + | acetaminophen | Take 650 mg by mouth | | 0 | | | | (TYLENOL) 325 mg | every 4 hours as | | | | 0 | | tablet | needed for Pain. | | | | | + + + +---------+ + + | Black Cohosh 540 | Take 1 capsule by | | 0 | | | | MG CAPS | mouth Daily. | | | | 9 | + + + +---------+ + + | diphenhydrAMINE | Take 25 mg by mouth | | 0 | | | | (BENADRYL) 25 mg | nightly as needed | | | | 9 | | tablet | for Itching. | | | | | + + + +---------+ + + | ECHINACEA PO | Take 1 capsule by | | 0 | | | | | mouth Daily. | | | | 9 | + + + +---------+ + + | Ginkgo Biloba | Take 1 capsule by | | 0 | | | | (GINKOBA PO) | mouth Daily. | | | | 0 | + + + +---------+ + + | isosorbide | TAKE ONE TABLET BY | 30 | 1 | 03/23/20 | | | dinitrate (ISORDIL) | MOUTH THREE TIMES | tablet | | 19 | 9 | | 10 mg tablet | DAILY | | | | | + + + +---------+ + + | [facility] PO | Take 1 capsule by | | 0 | | | | | mouth 3 times daily. | | | | 9 | + + + +---------+ + + documented as of this encounter H&P Notes Loi Hui MD - 04/05/2019 2:53 PM PDTPatient interviewed, history and physical, symp toms reviewed VS signs noted, no change from previous H&P or assessment and plan.Electronic ally signed by Loi Hui MD at 04/05/2019 2:53 PM PDTLoi Hui MD - 04/05/2019 2:53 PM PDT PRE-ENDOSCOPY HISTORY AND PRE-SEDATION ASSESSMENT PATIENT NAME: Cherrie Quijano : 1960 TODAY'S DATE: 04/05/2019 PLANNED PROCEDURE: endoscopy PERTINENT HISTORY/INDICATION FOR PROCEDURE: Cherrie Quijano is a 58 y.o. female who is undergoing endoscopy for dysphagia and dyspepsia. PAST HISTORY: Past Medical History: Diagnosis Date Depression with anxiety Dysphagia 06/16/2017 GERD (gastroesophageal reflux disease) Seizure (HCC) Wears partial dentures upper PAST SURGICAL HISTORY Past Surgical History: Procedure Laterality Date UPPER GASTROINTESTINAL ENDOSCOPY N/A 11/30/2017 Procedure: EGD; Surgeon: Loi Hui MD; Location: [facility] HOME MEDS: Scheduled Meds: Continuous Infusions: lactated ringers 1,000 mL (04/05/19 1420) lactated ringers PRN Meds:.albuterol-ipratropium, dextrose ALLERGIES No Known Allergies ASA CLASSIFICATION: Class 3 - A patient with severe systemic disease that limits activity b ut is not incapacitating EXAMINATION: BP 124/82 | Pulse 85 | Temp 36.6 C (97.9 F) (Temporal) | Resp 16 | Ht 1.6 m (5' 3") | Wt 88 kg (194 lb 0.1 oz) | SpO2 97% | ? No | BMI 34.37 kg/m General: Alert and oriented Throat: Normal Lungs: Clear Heart: Regular rate and rhythm with out significant murmur Abdomen: flat, normal bowel sounds. Soft, nontender 1. Available medical records have been reviewed. 2. Medication list reviewed. IMPRESSION: . Patient appropriate for procedure. PLAN: 1. Proceed with procedure as stated above with moderate sedation/analgesia 2. Procedure, indications, risks and alternatives explained to patient/family and they agre ed to proceed and consent was signed. 3. Patient will be reevaluated immediately (1-2 minutes) before sedation administration and approved for the plan as stated above. Electronically Signed by: Loi Hui MD 04/05/2019 [facility] Portions of this chart may have been created with [employer] voice recognition software. Occasi onal wrong-word or sound-alike substitutions may have occurred due to the inherent shannon itations of voice recognition software. Please read the chart carefully and recognize, using context, where these substitutions have occurred documented in this encounter Miscellaneous Notes D-C Instructions Provation - Loi Hui MD - 04/05/2019 2:41 PM PDTDischarge Instruct ions for Upper Endoscopy Patient: Cherrie Quijano : 1960 Acct: [id number] Exam Date: Friday, April 05, 2019 Doctor: Loi Hui MD The chances of difficulty following this procedure are minimal. The following instructions will assist you in your recovery. 1. Do Not eat or drink anything for 1 hour. Try sips of water first. If tolerated, resume your regular diet or one recommended by your physician. 2. Do not drive, operate machinery, make critical decisions, or do activities that require coordination or balance for 24 hours. 3. You may experience a sore throat for 24 - 48 hours. You may use throat lozenges or gargle with warm salt water to relieve the discomfort. 4. Because air was put into your stomach druing the procedure, you may experience some belching. 5. Do not use any medication containing aspirin for 10 days, unless otherwise directed by your physician. 6. Sometimes the medications given to you druing the exam can aggravate the veins. The chemical irritation can cause inflammation or pain along the arm with redness, swelling and warmth. This does not mean there is an infection. You can treat the affected area by applying warm, wet compresses (towels) 4 times a day for 20 minutes at a time until inflammation is resolved 7. Report to your doctor: Chills and/or fever over 100 Persistent vomiting or vomiting with blood/nasal regurgitation Severe abdominal pain, other than gas cramps Severe chest pain Black, tarry stools You may reach your physician at Work: . If unable to reach your physician, call [facility] Emergency Department at Ext. [phone] Your doctor recommends these additional instructions: You have a contact number available for emergencies. The signs and symptoms of potential delayed complications were discussed with you. You may return to normal activities tomorrow. Written discharge instructions were provided to you. Resume your previous diet. Continue your present medications. Your physician has recommended a repeat upper endoscopy in three months to check healing. Return to your GI clinic as needed. Follow an antireflux regimen. This includes: - Do not lie down for at least 3 to 4 hours after meals. - Raise the head of the bed 4 to 6 inches. - Decrease excess weight. - Avoid citrus juices and other acidic foods, alcohol, chocolate, mints, coffee and other caffeinated beverages, carbonated beverages, fatty and fried foods. - Avoid tight-fitting clothing. - Avoid cigarettes and other tobacco products. Take Prilosec (omeprazole) 40 mg by mouth twice a day for three months. The findings and recommendations have been discussed with you. These instructions have been explained to the patient and/or escort. A copy has been given to the patient/escort. Nurse Signature Patient Signature Escort Signature Date Loi Hui MD 04/05/2019 3:05:17 PM This report has been signed electronically.Electronically signed by Loi Hui MD at 3:05 PM PDTdocumented in this encounter Plan of Treatment Not on filedocumented as of this encounter Procedures + +--------+ + + + | Procedure Name | Priori | Date/Time | Associated Diagnosis | Comments | | | ty | | | | + +--------+ + + + | EGD | | 04/05/2019 | Pharyngoesophageal | | | | | 2:49 PM | dysphagia Hiatal | | | | | PDT | hernia with GERD | | | | | | Reflux esophagitis | | | | | | Obesity (BMI | | | | | | 30-39.9) Seizure | | | | | | ([facility]) Depression | | | | | | with anxiety | | + +--------+ + + + | EGD | Routin | 04/05/2019 | | Results for this | | | e | 2:41 PM | | procedure are in the | | | | PDT | | results section. | + +--------+ + + + documented in this encounter Results EGD (04/05/2019 2:41 PM PDT) + + | Specimen | + + | | + + + + -+ | Narrative | Performed At | + + -+ | | [facility] | | GastroenterologyPatient Name: Cherrie QuijanoProcedure Date: 04/05/2019 | [facility] | | 2:41 PMMRN: [id number] #: [id number] of : | | | 1Admit Type: AmbulatoryAge: 58Room: [facility]Gender: | | | FemaleNote Status: FinalizedAttending MD: Loi Hui , | | | MDProcedure: Upper GI endoscopyIndications: | | | Abdominal pain, Dysphagia, Heartburn, Suspected esophageal | | | refluxProviders: Loi Hui MD, | | | Pushpa Kim RN, Phyllis Farley, | | | Partition Assembly Machine Operator, Butch Amaya MD (Anesthesia Staff)Referring MD: | | | James Farmer MD (Referring MD)Medicines: | | | Monitored Anesthesia CareComplications: No immediate | | | complications.Procedure: Pre-Anesthesia Assessment: - | | | Prior to the procedure, a History and Physical was performed, and | | | patient medications and allergies were reviewed. The patient is | | | competent. The risks and benefits of the procedure and the | | | sedation options and risks were discussed with the patient. All | | | questions were answered and informed consent was obtained. | | | Patient identification and proposed procedure were verified by | | | the physician, the nurse, the anesthesiologist and the | | | nuclear test technician in the pre-procedure area in the procedure room. | | | Mental Status Examination: alert and oriented. Airway | | | Examination: normal oropharyngeal airway and neck mobility. | | | Respiratory Examination: clear to auscultation. CV Examination: | | | normal. Prophylactic Antibiotics: The patient does not require | | | prophylactic antibiotics. Prior Anticoagulants: The patient | | | has taken no previous anticoagulant or antiplatelet agents. ASA | | | Grade Assessment: III - A patient with severe systemic | | | disease. After reviewing the risks and benefits, the patient | | | was deemed in satisfactory condition to undergo the procedure. The | | | anesthesia plan was to use monitored anesthesia care (MAC). | | | Immediately prior to administration of medications, the patient | | | was re-assessed for adequacy to receive sedatives. The heart | | | rate, respiratory rate, oxygen saturations, blood pressure, | | | adequacy of pulmonary ventilation, and response to care were | | | monitored throughout the procedure. The physical status of the | | | patient was re-assessed after the procedure. After obtaining | | | informed consent, the endoscope was passed under direct vision. | | | Throughout the procedure, the patient's blood pressure, pulse, | | | and oxygen saturations were monitored continuously. The Endoscope was | | | introduced through the mouth, and advanced to the third part | | | of duodenum. The upper GI endoscopy was somewhat difficult due | | | to the patient's respiratory instability (hypoxia). Successful | | | completion of the procedure was aided by performing chin lift, | | | administering oxygen and receiving assistance from additional | | | staff. The patient tolerated the procedure fairly | | | well.Findings: LA Grade D (one or more mucosal breaks involving | | | at least 75% of esophageal circumference) esophagitis with no | | | bleeding was found. Unable to obtain biopsies due to pt | | | respiratory distress. The exam of the esophagus was otherwise | | | normal. The entire examined stomach was normal. The cardia | | | and gastric fundus were normal on retroflexion. The examined | | | duodenum was normal.Impression: - LA Grade D reflux esophagitis. | | | - Normal stomach. - Normal examined duodenum. - No | | | specimens collected.Recommendation: - Patient has a contact | | | number available for emergencies. The signs and symptoms of | | | potential delayed complications were discussed with the | | | patient. Return to normal activities tomorrow. Written discharge | | | instructions were provided to the patient. - Resume previous | | | diet. - Continue present medications. - Repeat upper | | | endoscopy in 3 months to check healing. - Return to GI clinic | | | PRN. - Follow an antireflux regimen. - Use Prilosec | | | (omeprazole) 40 mg PO BID for 3 months. - The findings and | | | recommendations were discussed with the patient.Loi Hui, | | | 04/05/2019 3:05:17 PMThis report has been signed | | | electronically.Number of Addenda: 0Note Initiated On: 04/05/2019 2:41 | | | PMScope In: 2:56:13 PMScope Out: 3:01:14 PM [facility] | | | [facility], [address] [place] [id number] | | | [phone] | | | instructions were provided to the patient. | | | - Resume previous diet. | | | - Continue present medications. | | | - Repeat upper endoscopy in 3 months to check healing. | | | - Return to GI clinic PRN. | | | - Follow an antireflux regimen. | | | - Use Prilosec (omeprazole) 40 mg PO BID for 3 months. | | | - The findings and recommendations were discussed with the patient. | | |Loi Hui MD | | |04/05/2019 3:05:17 PM | | |This report has been signed electronically. | | |Number of Addenda: 0 | | |Note Initiated On: 04/05/2019 2:41 PM | | |Scope In: 2:56:13 PM | | |Scope Out: 3:01:14 PM | | | [facility], [address] [place] [address] | | | [id number] | | + + -+ + +---------+ + + | Performing | Address | City/State/Zipcode | Phone Number | | Organization | | | | + +---------+ + + | [facility] [place] | | | | + +---------+ + + documented in this encounter Visit Diagnoses + + | Diagnosis | + + | Pharyngoesophageal dysphagia Dysphagia, pharyngoesophageal phase | + + | Hiatal hernia with GERD | + + | Reflux esophagitis | + + | Obesity (BMI 30-39.9) Obesity, unspecified | + + | Seizure (HCC) Other convulsions | + + | Depression with anxiety Dysthymic disorder | + + documented in this encounter Admitting Diagnoses + + | Diagnosis | + + | Hiatal hernia with GERD | + + | Reflux esophagitis | + + | Seizure (HCC) Other convulsions | + + | Depression with anxiety Dysthymic disorder | + + | Pharyngoesophageal dysphagia Dysphagia, pharyngoesophageal phase | + + | Obesity (BMI 30-39.9) Obesity, unspecified | + + documented in this encounter Administered Medications + +--------+---------+------+------+------+ | Medication Order | MAR | Action | Dose | Rate | Site | | | Action | Date | | | | + +--------+---------+------+------+------+ + +---+ | albuterol-ipratropium 2.5-0.5 | | | mg/3 mL nebulizer solution 3 mL | | | 3 mL, Nebulization, ONCE PRN, | | | Wheezing, Starting 04/05/19 at | | | 1358, For 1 dose, Pre-op | | + +---+ | | | + +---+ + +-------+ +---------+---+---+ | benzocaine (HURRICAINE) 20% | Given | 04/05/20 | 1 spray | | | | non-aerosol spray PRN, Starting | | 19 2:52 | | | | | 04/05/19 at 1452 | | PM PDT | | | | + +-------+ +---------+---+---+ + +---+ | | | + +---+ | dextrose 50% injection 12.5-25 | | | g 12.5-25 g, Intravenous, EVERY | | | 15 MIN PRN, Low Blood Sugar, Give | | | 12.5g (25 mL) IV if blood | | | glucose 50-69 mg/dL. Give 25g | | | (50 mL) IV if blood glucose < 50, | | | Starting Wed04/05/19 at 1358, | | | Repeat in 15 min if blood glucose | | | remains < 70 mg/dL. Repeat | | | blood glucose in 30 min once | | | blood glucose > 70., Pre-op | | + +---+ | | | + +---+ + + + +---+---+---+ | lactated ringers (LR) infusion | Continue | 04/05/20 | | | | | at 100 mL/hr, Intravenous, | d by | 19 2:51 | | | | | CONTINUOUS, Starting Wed04/05/19 | Anesthes | PM PDT | | | | | at 1415, Pre-op | ia | | | | | + + + +---+---+---+ +---------+ +--------+-------+---+ | New Bag | 04/05/20 | 1,000 | 100 | | | | 19 2:20 | mLs | mL/hr | | | | PM PDT | | | | +---------+ +--------+-------+---+ + +---+ | | | + +---+ | lactated ringers (LR) infusion | | | at 10-100 mL/hr, Intravenous, | | | CONTINUOUS, Starting 04/05/19 | | | at 1415, TKO., Pre-op | | + +---+ | | | + +---+ documented in this encounter
--- OUTSIDE RECORDS SUMMARY | ~2020-05-16 | XMS | Encounter Summary ---
Demographics + + + | Address | [address] | | | [place] [address] | + + + | Home Phone | | + + + | Preferred Language | Unknown | + + + | Marital Status | Single | + + + | Gnosticist Affiliation | 1013 | + + + | Race | Unknown | + + + | Ethnic Group | Unknown | + + + Author + + + | Author | [facility] | | | and [place] | + + + | Organization | [facility] | | | [...] Team Providers + +------+ + | Care Double Bass Player Name | Role | Phone | + +------+ + | James Farmer MD | PCP | | + +------+ + Reason for Referral Evaluate & Treat (Routine) +--------+ + + + + + | Status | Reason | Specialty | Diagnoses / | Referred By | Referred To | | | | | Procedures | Contact | Contact | +--------+ + + + + + | Closed | Specialty | Otolaryngolog | Diagnoses | | [facility] | | Services | y | Chronic | Moy, | Otolaryngolog | | | Required | | recurrent | Kapil | y [address] | | | | | sinusitis | MD Tang | [place] | | | | | | [address] | [address] | | | | | | [address] [place] | [place] | | | | | | [place] | [address] | | | | | | [address] | Phone: | | | | | | Phone: | [phone] | | | | | | [phone] | Fax: | | | | | | Fax: | [phone] | | | | | | [phone] | | +--------+ + + + + + Diagnostic/Screening (Routine) +--------+--------+ + + + + | Status | Reason | Specialty | Diagnoses / | Referred By | Referred To | | | | | Procedures | Contact | Contact | +--------+--------+ + + + + | Closed | | Radiology | Diagnoses | | [address] | | | | | Chronic | Moy | [address] | | | | | recurrent | Kapil | [place], | | | | | sinusitis | MD Tang | [place] [address] | | | | | Procedures | [address] | Phone: | | | | | CT Sinus WO | [place] | [phone] | | | | | Contrast | [place] | Fax: | | | | | | [address] | [phone] | | | | | | Phone: | | | | | | | [phone] | | | | | | | Fax: | | | | | | | [phone] | | +--------+--------+ + + + + Reason for Visit + + + | Reason | Comments | + + + | Sinus Problem | rm 1 sinus problem- 3 months | + + + Encounter Details +--------+---------+ + + + | Date | Type | Department | Care Team | Description | +--------+---------+ + + + | 12/10/ | Office | [facility] | [facility], | Chronic recurrent | | 2018 | Visit | CARE [address] | Kapil Beckwith MD | sinusitis (Primary | | | | [place] | [address] | Dx) | | | | [address] | [place] | | | | | [phone] | [address] | | | | | | | | +--------+---------+ + + + [...] + + + | Blood Pressure | 94/61 | 12/10/2017 8:17 AM | | | | | PST | | + + + + + | Pulse | 91 | 12/10/2017 8:17 AM | | | | | PST | | + + + + + | Temperature | 37.3 C (99.2 F) | 12/10/2017 8:17 AM | | | | | PST | | + + + + + | Respiratory Rate | 16 | 12/10/2017 8:17 AM | | | | | PST | | + + + + + | Oxygen Saturation | 98% | 12/10/2017 8:17 AM | | | | | PST | | + + + + + | Inhaled Oxygen | - | - | | | Concentration | | | | + + + + + | Weight | 79.9 kg (176 lb 2.4 | 12/10/2017 8:17 AM | | | | oz) | PST | | + + + + + | Height | - | - | | + + + + + | Body Mass Index | 32.22 | 11/30/2017 12:28 PM | | | | | PST | | + + + + + documented in this encounter Patient Instructions Patient Instructions Kapil Winter MD - 12/10/2017 8:15 AM PST Chronic Sinusitis Chronic sinusitis is a long-term swelling or infection of the sinuses. If sinusitis lasts m ore than 12 weeks, it is called chronic. What is chronic sinusitis? Sinuses are air-filled spaces in the skull behind the face. They are kept moist and clean b y a lining of mucosa. Things such as pollen, smoke, and chemical fumes can irritate the muco sa. Constant exposure to irritants can cause ongoing inflammation of this lining. It can als o damage tiny hairlike cilia that cover the mucosa. Cilia help carry mucus toward the openin g of the sinus. Damage to cilia keeps mucus from draining from the sinuses. Causes of chronic sinusitis Problems that irritate the mucosa or block drainage can lead to chronic sinusitis. These ma y include: Infections Chronic allergies Nasal polyps, deviated septum, or other blockages Constant exposure to irritants, such as cigarette smoke or fumes Asthma Acute sinusitis that keeps coming back Common symptoms of chronic sinusitis Symptoms may include: Facial pain and pressure Headache and sinus pain Nasal congestion Thick, colored drainage from the nose Thick mucus draining down the back of the throat (postnasal drainage) Loss of smell Fever Cough Sore throat Diagnosing chronic sinusitis Your doctor will ask about your symptoms and health history. The doctor will look at your n ose and face. You may have imaging studies such as an X-ray or CT scan of the sinuses. Your doctor may also take a sample of the drainage to check for bacteria. You may also have an en doscopy. During this test, the doctor puts a lighted tube through your nose up into your sin uses to look at the sinuses. Treating chronic sinusitis Treatment involves reducing irritation and inflammation. Your plan may include: Taking medicines. Your doctor may prescribe medicines to reduce the amount of mucus and swelling. These help unblock the sinuses and allow them to drain. You will need to take anti biotics if you have a bacterial infection. Flushing your sinuses. Your doctor may suggest sinus irrigation. This is flushing your s inuses with saltwater or saline solution. This helps to clear outmucus. Controlling allergies. If you have allergies, you should have a plan to help control the m. This plan may include medicines or allergy shots. Having surgery. In some cases, you may need surgery on the nose, sinuses, or both. This can improve sinus drainage or remove nasal blockages. Date Last Reviewed: 08/22/201619992664-9197 [employer]. [address] [place] [address]. All righ ts reserved. This information is not intended as a substitute for professional medical care. Always follow your healthcare professional's instructions. documented in this encounter Progress Notes Kapil Winter MD - 12/10/2017 8:15 AM PSTFormatting of this note might be di fferent from the original. Subjective: Chief Complaint: Sinus Problem (rm 1 sinus problem- 3 months) Cherrie is a 57 y.o. female who comes in complaining of possible sinus infection. Cherrie beck t developed an upper respiratory infection 4 months ago, followed with persistent nasal and sinus pain and congestion since, with mildly colored nasal drainage. Has a mildly product saeid cough but lungs feel clear with no shortness of breath. No fevers. No other complaints . Cherrie does not smoke. First appt available with pcp is 01/03 Augmentin, then biaxin, then doxycycline have not resulted In resolution. Rinsing sinuses daily but doesn't seem to clean out the sinuses Continues with bilateral cheek pressure and pain Patient's medications, allergies, past medical, surgical, social and family histories were reviewed and updated as appropriate. Objective: BP 94/61 | Pulse 91 | Temp 37.3 C (99.2 F) (Temporal) | Resp 16 | Wt 79.9 kg (176 l b 2.4 oz) | SpO2 98% | BMI 32.22 kg/m General Appearance: Alert, cooperative, no distress, appears stated age Head: Normocephalic, without obvious abnormality, with moderate bilateral maxillary sinus tenderness to percussion Eyes: PERRL, conjunctiva/corneas clear Ears: Normal TM's and external ear canals Nose: Nares normal, septum midline, mucosa normal with mild congestion, no masses or polyps visible Throat: Oropharynx normal Neck: Supple, symmetrical, no adenopathy Lungs: Clear to auscultation bilaterally, respirations unlabored Skin: Dry, normal color Assessment and Plans: Chronic sinusitis, will set up for sinus ct and ent referral. Return to clinic if symptoms persist, change or worsen over the next week. documented in this encounter Plan of Treatment + + +--------+ + + | Name | Type | Priori | Associated Diagnoses | Order Schedule | | | | ty | | | + + +--------+ + + | * [facility] | Outpatient | Routin | Chronic recurrent | Ordered: 12/10/2017 | | Otolaryngology - AMB | Referral | e | sinusitis | | | Referral | | | | | + + +--------+ + + documented as of this encounter Procedures + +--------+ + + + | Procedure Name | Priori | Date/Time | Associated Diagnosis | Comments | | | ty | | | | + +--------+ + + + | CT SINUS WO CONTRAST | Routin | 12/14/2017 | Chronic recurrent | Results for this | | | e | 9:51 AM | sinusitis | procedure are in the | | | | PST | | results section. | + +--------+ + + + documented in this encounter Results CT Sinus WO Contrast (12/14/2017 9:51 AM [facility]) + + | Specimen | + + | | + + + + + | Narrative | Performed At | + + + | UNENHANCED CT PARANASAL SINUSES 12/14/2017 9:34 AM CLINICAL | [facility] | | HISTORY: recurrent / chronic sinusitis COMPARISON: None | | | available TECHNIQUE: Axial unenhanced images are performed through | | | the paranasal sinuses, along with coronal and sagittal reformations. | | | FINDINGS: The paranasal sinuses and ostiomeatal units are well | | | aerated, along with the middle ear cavities and imaged mastoid air | | | cells. There is prominent rightward nasal septal deviation and | | | spurring. The nasal turbinates are symmetric and unremarkable. No | | | fracture, osteolysis or abnormal sclerosis is apparent. There is | | | periapical lucency involving the right first maxillary bicuspid | | | tooth. Temporomandibular joints are appropriately articulated. The | | | imaged brain, orbital contents and soft tissues are unremarkable | | | allowing for the limitation of the bone algorithm utilized to perform | | | the exam. IMPRESSION - 1. CLEAR PARANASAL SINUSES. 2. | | | RIGHTWARD NASAL SEPTAL DEVIATION. 3. PERIAPICAL LUCENCY | | | INVOLVING THE RIGHT MAXILLARY FIRST BICUSPID TOOTH. Dictated and | | | Signed by: Ky Krishna MD Electronically signed: 12/14/2017 12:41 | | | PM | | + + + + + | Procedure Note | + + | Manohar, Rad Results In - 12/14/2017 12:44 PM PST [address]ED CT PARANASAL SINUSES | | 12/14/2017 9:34 AM CLINICAL HISTORY: recurrent / chronic sinusitis COMPARISON: None | | available TECHNIQUE: Axial unenhanced images are performed through the paranasal | | sinuses,along with coronal and sagittal reformations. FINDINGS: The paranasal sinuses | | and ostiomeatal units are well aerated, alongwith the middle ear cavities and imaged | | mastoid air cells. There is prominentrightward nasal septal deviation and spurring. | | The nasal turbinates aresymmetric and unremarkable. No fracture, osteolysis or abnormal | | sclerosis isapparent. There is periapical lucency involving the right first | | maxillarybicuspid tooth. Temporomandibular joints are appropriately articulated. | | Theimaged brain, orbital contents and soft tissues are unremarkable allowing forthe | | limitation of the bone algorithm utilized to perform the exam. IMPRESSION - 1. CLEAR | | PARANASAL SINUSES.2. RIGHTWARD NASAL SEPTAL DEVIATION.3. PERIAPICAL LUCENCY INVOLVING | | THE RIGHT MAXILLARY FIRST BICUSPID TOOTH. Dictated and Signed by: Ky Krishna MD | | Electronically signed: 12/14/2017 12:41 PM | |bicuspid tooth. Temporomandibular joints are appropriately articulated. The | |imaged brain, orbital contents and soft tissues are unremarkable allowing for | |the limitation of the bone algorithm utilized to perform the exam. | | | |IMPRESSION - | |1. CLEAR PARANASAL SINUSES. | | | |2. RIGHTWARD NASAL SEPTAL DEVIATION. | | | |3. PERIAPICAL LUCENCY INVOLVING THE RIGHT MAXILLARY FIRST BICUSPID TOOTH. | | | |Dictated and Signed by: Ky Krishna MD | | Electronically signed: 12/14/2017 12:41 PM | + + + +---------+ + + | Performing | Address | City/State/Zipcode | Phone Number | | Organization | | | | + +---------+ + + | [facility] | | | | + +---------+ + + documented in this encounter Visit Diagnoses + + | Diagnosis | + + | Chronic recurrent sinusitis - Primary | + + documented in this encounter"
--- OUTSIDE RECORDS SUMMARY | ~2020-05-16 | XMS | Encounter Summary ---
Demographics + + + | Address | [address] | | | [place] [address] | + + + | Home Phone | | + + + | Preferred Language | Unknown | + + + | Marital Status | Single | + + + | Spiritism Affiliation | 1013 | + + + | Race | Unknown | + + + | Ethnic Group | Unknown | + + + Author + + + | Author | [facility] | | | and [place] | + + + | Organization | [facility] | | | [...] Team Providers + +------+ + | Care Hydroelectric Machinery Mechanic Helper Name | Role | Phone | + +------+ + | James Farmer MD | PCP | | + +------+ + Encounter Details +--------+ + + + + | Date | Type | Department | Care Team | Description | +--------+ + + + + | 09/20/ | Orders Only | [facility] | James Farmer, | Chest pain, | | 2017 | | MEDICINE [address] | MD [address] | unspecified type | | | | [address] [place], | [place] | (Primary Dx) | | | | [place] [address] | [address] | | | | | [phone] | | | +--------+ + + + [...] + | Diagnosis | + + | Chest pain, unspecified type - Primary | + + documented in this encounter"
--- OUTSIDE RECORDS SUMMARY | ~2020-05-16 | XMS | Encounter Summary ---
Demographics + + + | Address | [address] | | | [place] [address] | + + + | Home Phone | | + + + | Preferred Language | Unknown | + + + | Marital Status | Single | + + + | Tenriism Affiliation | 1013 | + + + | Race | Unknown | + + + | Ethnic Group | Unknown | + + + Author + + + | Author | [facility] | | | and [place] | + + + | Organization | [facility] | | [...] Team Providers + +------+ + | Care Pocket Creaser Name | Role | Phone | + +------+ + | James Farmer MD | PCP | | + +------+ + Reason for Visit + + + | Reason | Comments | + + + | Gynecologic Exam | | + + + Encounter Details +--------+---------+ + + + | Date | Type | Department | Care Team | Description | +--------+---------+ + + + | 11/28/ | Office | [facility] | Alesha Reyes | Well woman exam | | 2019 | Visit | MEDICINE [address] | [address] | (Primary Dx); | | | | [place], | [address] [facility] | Encounter for | | | | [place] [address] | [place] [address] | Papanicolaou smear | | | | [phone] | [phone] | for cervical cancer | | | | | | screening | +--------+---------+ + + + Social History [...] + + + | Blood Pressure | 100/70 | 11/28/2019 10:54 AM | | | | | PST | | + + + + + | Pulse | 76 | 11/28/2019 10:54 AM | | | | | PST | | + + + + + | Temperature | 36.4 C (97.5 F) | 11/28/2019 10:54 AM | | | | | PST | | + + + + + | Respiratory Rate | 16 | 11/28/2019 10:54 AM | | | | | PST | | + + + + + | Oxygen Saturation | 99% | 11/28/2019 10:54 AM | | | | | PST | | + + + + + | Inhaled Oxygen | - | - | | | Concentration | | | | + + + + + | Weight | 74.3 kg (163 lb 12.8 | 11/28/2019 10:54 AM | | | | oz) | PST | | + + + + + | Height | 160 cm (5' 3") | 11/28/2019 10:54 AM | | | | | PST | | + + + + + | Body Mass Index | 29.02 | 11/28/2019 10:54 AM | | | | | PST | | + + + + + documented in this encounter Patient Instructions Patient Instructions Alesha Reyes APRN - 11/28/2019 11:00 AM PSTCall GI to [facility] appointment [phone] you are due for a mammogram, please call and schedule yourself. [employer] imaging phone scarlet burgess is [phone] [employer] is a wonderful resource to get research based information about women's health after menopause. documented in this encounter Progress Notes Alesha Reyes APRN - 11/28/2019 11:00 AM PSTFormatting of this note might be di fferent from the original. Subjective: Ivis Quijano is a 59 y.o. female patient of Dr Farmer who presents for an annual exam. The patient has no complaints today. The patient is currently sexually active with one male partner. They are monogamous and she has had the same partner for over 10 years. METAL BALER screening history: last pap: approximate date 2010 and was normal and last mammogram: approx imate date >10 years and was normal. She reports that she knows she is overdue for a mammog elias, however she finds them rather embarrassing and humiliating. She is willing to get a re ferral to have one done now though. She denies any family history of breast cancers. The patient reports that there is not domestic violence in her life: Do you feel safe at home and in your relationships: yes Is anyone threatening you or harming you: no Patient is postmenopausal, with LMP in 7122-2914. She does endorse some mild vaginal dryne ss as well as some mild dyspareunia ever since menopause. This is well managed with OTC lub ricants. She denies any sexual health concerns at this time. Also endorses some stress incontinence which is manageable by voiding frequently. She does not need to wear a pad or briefs for management. Patient's medications, allergies, past medical, surgical, social and family histories were obtained and reviewed as appropriate. Review of Systems Pertinent items are noted in HPI. Objective: BP 100/70 | Pulse 76 | Temp 36.4 C (97.5 F) (Temporal) | Resp 16 | Ht 1.6 m (5' 3" ) | Wt 74.3 kg (163 lb 12.8 oz) | LMP (LMP Unknown) | SpO2 99% | BMI 29.02 kg/m General appearance: alert, appears stated age and cooperative Head: Normocephalic, without obvious abnormality, atraumatic Breasts: normal appearance, no masses or tenderness, No nipple retraction or dimpling, No n ipple discharge or bleeding, No axillary or supraclavicular adenopathy, Taught monthly breas t self examination Pelvic: adnexae not palpable, cervix normal in appearance, external genitalia normal, no ce rvical motion tenderness, perianal skin: no external genital warts noted, rectovaginal septu m normal and vagina normal without discharge Extremities: extremities normal, atraumatic, no cyanosis or edema Skin: Skin color, texture, turgor normal. No rashes or lesions Neurologic: Grossly normal. Assessment: Healthy female exam. Plan: Discussed age, gender and family history appropriate screening guidelines. Await pap smear results. Mammogram due now. Phone number provided. Breast self exam technique reviewed and patient encouraged to perform self-exam monthly. Discussed healthy lifestyle modifications. Educational material distributed regarding expected postmenopausal changes as well as uli dy safe lubricants and moisturizers. I also provided her with an online evidence-based webs ite specific to women's sexual health after menopause. Follow up as needed. Alesha Reyes DNP, PATIENT ACCOUNTS MANAGER, AGNP-C CC: James Farmer MD 20 11:36 AM PSTdocumented in this encounter Plan of Treatment Not on filedocumented as of this encounter Procedures + +--------+ + + + | Procedure Name | Priori | Date/Time | Associated Diagnosis | Comments | | | ty | | | | + +--------+ + + + | PAP SMEAR | Routin | 11/28/2019 | Encounter for | Results for this | | | e | 11:15 AM | Papanicolaou smear | procedure are in the | | | | PST | for cervical cancer | results section. | | | | | screening | | + +--------+ + + + documented in this encounter Results Pap Smear (11/28/2019 11:15 AM PST) + + | Specimen | + + | Tissue - Cervix | | cytologic material | | (specimen) | + + + + + | Narrative | Performed At | + + + | ORDERING PHYSICIAN: KELLY Reyes DNP, Lauren Kathleen PATIENT | [facility] | | NAME: SAMM IVIS URIAS GENDER: F : 1960 | [place] | | Prior History: No cases found. SPECIMEN(S): Cervical/ | | | Endocervical CLINICAL HISTORY: Routine Pap Smear, | | | Menopausal/Postmenopausal CYTOLOGIC INTERPRETATION: Negative for | | | intraepithelial lesion or malignancy. MOLECULAR PATHOLOGY RESULTS: | | | HPV High Risk - Negative TECHNICAL NOTES: To improve disease | | | detection, this slide is screened using automated intelligence | | | technology. This specimen was received in a vial of liquid-based | | | fixative and was processed using thin layer Pap technology. | | | SPECIMEN ADEQUACY: Satisfactory for evaluation. Endocervical and/or | | | metaplastic are not identified. The patient's menopausal status is | | | noted. Samples from postmenopausal women with an intact cervix often | | | lack an endocervical component in pap collections. Studies suggest | | | there is no reason to advise women with a normal Pap test without an | | | endocervical component to undergo an additional test merely to collect | | | endocervical cells, (Am J Clin Patho 2002;117(1) :199-7), unless | | | clinically indicated. ADDITIONAL NOTES: The Pap smear is a | | | screening test designed to aid in the detection of premalignant and | | | malignant conditions of the uterine cervix. It is not a diagnostic | | | procedure and should not be used as the sole means of detecting | | | cervical cancer. Both false-positive and false-negative reports do | | | occur. This document contains private and confidential health | | | information by state and federal law. If you have received in error, | | | please call [phone]. ADDITIONAL NOTES.: The Aptima HPV | | | assay is an in vitro nucleic acid amplification test for the | | | qualitative detection of E6/E7 viral messenger RNA (mRNA) from Human | | | Papillomavirus (HPV) types 16, 18, 31, 33, 35, 39, 45, 51, 52, 56, | | | 58, 59, 66, and 68 in cervical specimens using the wywy System. | | | Test results should be considered in conjunction with other | | | laboratory and clinical findings. Detection of high-risk HPV mRNA is | | | dependent on the number of copies present in the specimen and may be | | | affected by specimen collection methods, patient factors, stage of | | | infection and the presence of interfering substances. If clinically | | | indicated, recollection with repeat co-testing is recommended for | | | unsatisfactory cytology results. Specimens collected using | | | ThinPrep PreservCyt Pap solution and processed on the T-2000 ThinPrep | | | Pap Processor are FDA-approved. [employer] Pap specimen collections and | | | ThinPrep aliquots obtained post processing on the T-5000 Pap | | | Processor are not FDA-approved for the Aptima HPV assay but | | | performance characteristics have been validated at the performing | | | laboratory. [facility] is certified under CLIA as qualified | | | to perform high complexity clinical laboratory testing. This test is | | | used for clinical purposes. It should not be regarded as | | | investigational or for research. PERFORMING LABORATORY: Technical | | | preparation was performed by [facility], [address] | | | [place] [address] (Director Property: Himanshu Payne D.O.; | | | CLIA#: [id number]). PERFORMING LABORATORY.: Molecular testing | | | was performed by [facility], [address] [facility] | | | [place] [address] (Director Property: Himanshu Payne D.O.; CLIA#: | | | [id number]). Diagnostician: Treva ASCENCIO ([facility]) | | | Mail Messenger Contractor Electronically Signed 11/30/2019 | | + + + + +---------+ + + | Performing | Address | City/State/[facility] | Phone Number | | Organization | | | | + +---------+ + + | [facility] | | | | | [place] | | | | + +---------+ + + documented in this encounter Visit Diagnoses + + | Diagnosis | + + | Well woman exam - Primary Routine general medical examination at [facility] | | facility | + + | Encounter for Papanicolaou smear for cervical cancer screening | + + documented in this encounter
--- OUTSIDE RECORDS SUMMARY | ~2020-05-16 | XMS | Encounter Summary ---
Demographics + + + | Address | [address] | | | [place] [address] | + + + | Home Phone | | + + + | Preferred Language | Unknown | + + + | Marital Status | Single | + + + | Anabaptist Affiliation | 1013 | + + + | Race | Unknown | + + + | Ethnic Group | Unknown | + + + Author + + + | Author | [facility] | | | and [place] | + + + | Organization | [facility] | | | [...] Team Providers + +------+ + | Care Production Control Planner Name | Role | Phone | + +------+ + | James Farmer MD | PCP | | + +------+ + Reason for Visit + +--------+ + | Reason | Onset | Comments | | | Date | | + +--------+ + | Lab Results | 09/01/ | | | | 2016 | | + +--------+ + Encounter Details +--------+ + + + + | Date | Type | Department | Care Team | Description | +--------+ + + + + | 09/01/ | Telephone | [facility] | James Farmer, | Lab Results | | 2016 | | [facility] [address] | [address] [facility] | | | | | [place], | [place] | | | | | [place] [address] | [address] | | | | | [phone] | | | +--------+ + + + [...] this encounter Miscellaneous Notes Telephone Encounter - Ashlie Blevins LPN - 09/01/2017 9:33 AM PDTLeft VM that dr advised all lab tests are normal elephone Encounter - Ashlie Blevins LPN - 09/01/2017 9:32 AM PDT----- Message from Srinivas Farmer MD sent at 08/31/2017 17:13 PDT ----- Her blood tests are normal ----- Message ----- From: Lab, Background User Sent: 08/31/2017 12:58 To: James Farmer MD documented in this e ncounter Plan of Treatment Not on filedocumented as of this encounter Visit Diagnoses Not on filedocumented in this encounter"
--- OUTSIDE RECORDS SUMMARY | ~2020-05-16 | XMS | Encounter Summary ---
Demographics + + + | Address | [address] | | | [place] [address] | + + + | Home Phone | | + + + | Preferred Language | Unknown | + + + | Marital Status | Single | + + + | Congregation Affiliation | 1013 | + + + [...] Team Providers + +------+ + | Care Patient Financial Services Manager Name | Role | Phone | + +------+ + | No, Physician | PCP | Unavailable | + +------+ + Reason for Visit + + + | Reason | Comments | + + + | Dysphagia | | + + + Evaluate & Treat (Routine) +--------+ + + + + + | Status | Reason | Specialty | Diagnoses / | Referred By | Referred To | | | | | Procedures | Contact | Contact | +--------+ + + + + + | Closed | Specialty | Gastroenterol | Diagnoses | | [facility] | | | Services | ogy | Esophageal | [facility] | Gastroenterol | | | Required | | dysphagia | , Meng Smith MD | ogy [address] | | | | | | [address] | | | | | | [address] [place] | [address] [place] | | | | | | [place], [place] | [place], [place] | | | | | | [address] | [address] | | | | | | Phone: | Phone: | | | | | | [phone] | [phone] | | | | | | Fax: | Fax: | | | | | | [phone] | [phone] | +--------+ + + + + + Encounter Details +--------+---------+ + + + | Date | Type | Department | Care Team | Description | +--------+---------+ + + + | 06/16/ | Office | [facility] | Meng Talley | Dysphagia, | | 2016 | Visit | GASTROENTEROLOGY | MD Sarah [address] | unspecified type | | | | [address] [facility] | [address] [place], [place] | (Primary Dx); | | | | [address] [place], [place] | [id number] | Gastroesophageal | | | | [address] | | reflux disease, | | | | [phone] | Loi Hui MD | esophagitis presence | | | | | [address] | not specified; | | | | | [place] | Colon cancer | | | | | [address] | screening | | | | | [phone] | | | | | | | [...] + + + | Blood Pressure | 90/60 | 06/16/2017 9:13 AM | | | | | PDT | | + + + + + | Pulse | 88 | 06/16/2017 9:13 AM | | | | | PDT | | + + + + + | Temperature | 37.2 C (99 F) | 06/16/2017 9:13 AM | | | | | PDT | | + + + + + | Respiratory Rate | 16 | 06/16/2017 9:13 AM | | | | | PDT | | + + + + + | Oxygen Saturation | - | - | | + + + + + | Inhaled Oxygen | - | - | | | Concentration | | | | + + + + + | Weight | 84.7 kg (186 lb 12.8 | 06/16/2017 9:13 AM | | | | oz) | PDT | | + + + + + | Height | - | - | | + + + + + | Body Mass Index | 32.06 | 06/10/2017 7:56 AM | | | | | PDT | | + + + + + documented in this encounter H&P Notes Loi Hui MD - 06/16/2017 9:30 AM PDT Date of Office Visit: 06/16/17 Chief Complaint: Dysphagia History of Present Illness: Cherrie Quijano is a 56 y.o. female the patient presents wi th dysphagia. The patient states that she has been having solid food dysphagia for the past 2-3 months however is not having problems swallowing liquids. She did see her primary care physician who ordered a barium swallow which revealed a small sliding type hiatal hernia wi th spontaneous reflux. The barium swallow also revealed poor esophageal contractility howev er there was no fixed stricture. The study also revealed prominence to the esophageal mucos a distally. The patient does not smoke or drink alcohol or use drugs of any type. She does have frequent reflux symptoms and has been prescribed Prilosec in the past. She complains of intermittent nausea and vomiting. She is unable to swallow most solid foods. Recently s he has been eating just soft foods including pudding milkshakes and smoothies. Past Medical History: Past Medical History: Diagnosis Date Anxiety Depression GERD (gastroesophageal reflux disease) Past Surgical History: Past Surgical History: Procedure Laterality Date no known surgeries VEIN SURGERY Family History: Family History Problem Relation Age of Onset Family history unknown: Yes Allergies: Allergies No active allergies Intolerance No active intolerances/contraindications Medications: has a current medication list which includes the following prescription(s): alprazolam, lizz ck cohosh, cholecalciferol, and omeprazole. Review of Systems: A 10-point review of systems was performed and was negative except as n oted in the history of present illness. Physical Exam: Vitals:BP 90/60 | Pulse 88 | Temp 37.2 C (99 F) (Temporal) | Resp 16 | Wt 84.7 kg ( 186 lb 12.8 oz) | BMI 32.06 kg/m General: This is a well-developed,well-nurished female in no apparent distress, alert and o riented times 3. HEENT: Reveals normocephalic, atraumatic with extraocular muscles intact. Oropharynx is mal ar without obstruction. Neck: Supple without lymphadenopathy or thyromegaly. Lungs: Clear to auscultation without rales or wheezes. Cardiac: Reveals regular rate and rhythm with normal S1 and S2 and no murmurs, rubs or gall ops. Abdomen: Soft and nontender without masses or organmegaly. Extremities: Without cyanosis, clubbing or edema. Neuro: Awake, alert, oriented x3. Normal station and gait. Skin: Warm and dry, no erythematous rash. Assessment and Plan: 56-year-old white female with solid food dysphagia. Differential diag nosis includes neoplasm benign or malignant, esophageal inflammation, esophageal ring or web .At this time I recommend that upper endoscopy or esophagogastroduodenoscopy be performed fo r further evaluation. Indications risks benefits and possible complications were discussed with the patient who wished to proceed with EGD at this time. I strongly recommended the procedure be performed with propofol anesthesia due to the patie nt's anxiety and daily Xanax use. I advised her to continue Prilosec 20 mg twice a day half an hour before breakfast and dinner and to take Gaviscon liquid as needed after meals and a t bedtime for breakthrough symptoms. She should not continue taking Reglan. If a mechanica l obstruction is noted during endoscopy then we'll stretcher dilate otherwise we'll biopsy f or inflammation. I discussed with her food intake as well as pured foods such as smoothie s. She also should supplement calories with Ensure, boost, and Helper instant breakfast. The patient is over the age of 50 and has never had colonoscopy for colorectal cancer kylee beck. There is no family history of colon or rectal cancer. The patient wishes to have rou rosalba colonoscopy scheduled at the same time as her upper endoscopy.At this time I recommend that colonoscopy be performed for further evaluation. Indications risks benefits and possib le complications were discussed with the patient who wishes to proceed with colonoscopy at t his time. documented in this enc ounter Plan of Treatment + + +--------+ + + | Name | Type | Priori | Associated Diagnoses | Order Schedule | | | | ty | | | + + +--------+ + + | * [facility] [place] | Outpatient | Routin | Esophageal | Ordered: 04/29/2017 | | Gastroenterology - | Referral | e | dysphagia | | | AMB Referral | | | | | + + +--------+ + + documented as of this encounter Visit Diagnoses + + | Diagnosis | + + | Dysphagia, unspecified type - Primary | + + | Gastroesophageal reflux disease, esophagitis presence not specified | + + | Colon cancer screening Special screening for malignant neoplasms, colon | + + documented in this encounter"
--- OUTSIDE RECORDS SUMMARY | ~2020-05-16 | XMS | Encounter Summary ---
Demographics + + + | Address | [address] | | | [place] [address] | + + + | Home Phone | | + + + | Preferred Language | Unknown | + + + | Marital Status | Single | + + + | Confucianism Affiliation | 1013 | + + + | Race | Unknown | + + + | Ethnic Group | Unknown | + + + Author + + + | Author | [facility] | | | and [place] | + + + | Organization | [facility] | | | [...] Team Providers + +------+ + | Care Lead Ruby On Rails Developer Name | Role | Phone | + +------+ + | James Farmer MD | PCP | | + +------+ + Reason for Visit + +--------+ + | Reason | Onset | Comments | | | Date | | + +--------+ + | Medication Refill | 01/02/ | | | | 2020 | | + +--------+ + Encounter Details +--------+ + + + + | Date | Type | Department | Care Team | Description | +--------+ + + + + | 01/02/ | Telephone | [facility] | James Farmer, | Medication Refill | | 2019 | | MEDICINE [address] | | | | | [place], | [place] | | | | | [place] [address] | [address] | | | | | [phone] | | | +--------+ + + + [...] this encounter Miscellaneous Notes Telephone Encounter - Maci Grider - 01/02/2020 9:28 AM PSTMedication: pantoprazone Strength: 40 mg Directions: 1 a day Pharmacy: [facility]Mail/[facility]/Fax: fax Date of Last Refill: unknown Date of Last Visit: 11/20/19 Date of Next Visit: no future appointment Patient has 5 tablets left documented in this encoun ter Plan of Treatment Not on filedocumented as of this encounter Visit Diagnoses Not on filedocumented in this encounter"
--- OUTSIDE RECORDS SUMMARY | ~2020-05-16 | XMS | Encounter Summary ---
Demographics + + + | Address | [address] | | | [place] [address] | + + + | Home Phone | | + + + | Preferred Language | Unknown | + + + | Marital Status | Single | + + + | Lutheran Affiliation | 1013 | + + + | Race | Unknown | + + + | Ethnic Group | Unknown | + + + Author + + + | Author | [facility] | | | and [place] | + + + | Organization | [facility] | | [...] Team Providers + +------+ + | Care Pacu Nurse Name | Role | Phone | + [...] | | | | | | | Esophageal | | | | | | | stricture | | | | | | | Dehydration, | | | | | | | severe | | | | | | | Unable to | | | | | | | eat | | | +--------+--------+ + + + + Encounter Details +--------+ + + + + | Date | Type | Department | Care Team | Description | +--------+ + + + + | 09/06/ | Anesthesia | [facility] | Mitch Hood | | | 2019 | Event | [facility] | DO [address] | | | | | [address] | [address] [place] | | | | | [place] | [place] [address] | | | | | [address] | | | | | | [phone] | | | +--------+ + + + + Anesthesia Record + + + + + | Procedure Name | Responsible | Anesthesia Start | Anesthesia Stop Time | | | Anesthesiologist | Time | | + + + + + | ANDERSON (N/A Mouth) | Mitch Wyman | 09/06/19 1016 | 09/06/19 1041 | | | DO Sana | | | + + + + + +----+---+ + + | Da | T | Event | Comment | | te | i | | | | | m | | | | | e | | | +----+---+ + + | 10 | 1 | | | | /1 | 0 | | | | 6/ | 1 | | | | 20 | 0 | | | | 19 | | | | +----+---+ + + | | 1 | An Checkout | Pre-use anesthesia machine/equipment checkout. | | | 0 | | | | | 1 | | | | | 0 | | | +----+---+ + + | | 1 | An Start | Reassessment prior to anesthesia induction/procedure. | | | 0 | | | | | 1 | | | | | 6 | | | +----+---+ + + | | 1 | An Start | | | | 0 | Data | | | | 1 | | | | | 6 | | | +----+---+ + + | | 1 | Pre-Procedu | | | | 0 | ral Timeout | | | | 1 | Completed | | | | 8 | | | +----+---+ + + | | 1 | First | | | | 0 | Inc/Proc St | | | | 2 | | | | | 0 | | | +----+---+ + + | | 1 | An | | | | 0 | Induction | | | | 2 | | | | | 1 | | | +----+---+ + + | | 1 | Anesthesia | | | | 0 | Ready | | | | 2 | | | | | 1 | | | +----+---+ + + | | 1 | AN | Per surgeon request | | | 0 | Antibiotic | | | | 2 | declined | | | | 1 | | | +----+---+ + + | | 1 | an stop | | | | 0 | data | | | | 3 | | | | | 5 | | | +----+---+ + + | | 1 | An Stop | Patient handed off to recovery nurse. | | | 4 | | | | | 1 | | | +----+---+ + + +------+ | Meds | +------+ + +--------+ | Name | Total | + +--------+ | propofol | 60 mg | + +--------+ | propofol | 144 mg | + +--------+ | lidocaine 2% | 100 mg | + +--------+ | lactated ringers (LR) infusion | 200 mL | + +--------+ + + | Name | + + | O2 Flow Rate (L/Min) | + + + + | No blood administrations on file. | + + +--------+ + + + | Type | Details | Placement | Removal | +--------+ + + + | Periph | 09/05/19; 1619; Left; | 09/05/19 1619 by | 09/06/19 1700 by | | eral | Antecubital; [id number] | Chacha Queen | Karolina Toro RN | | IV | catheter system; 22 gauge; | MORGAN Perez | | | | Hematology, Chemistry; | | | | | distraction, tolerated well; no | | | | | longer indicated, removed per | | | | | policy/procedure, catheter/device | | | | | intact; short term use; | | | | | 09/06/19; 1700 | | | +--------+ + + + [...] encounter OR Notes Anesthesia Postprocedure Evaluation - Mitch Hood DO - 09/06/2019 10:43 AM PDTFo rmatting of this note might be different from the original. ANESTHESIA POSTANESTHESIA EVALUATION Cherrie Quijano 58 y.o. female 1960 [id number] Procedure(s) EGD (N/A Mouth) Cooperates? Yes Mental Status Performs simple tasks. Respiratory Satisfactory - Airway patent (self maintained). Cardiovascular Satisfactory - Blood pressure and heart rate acceptable Temperature Satisfactory Pain Satisfactory N/V Control Satisfactory Hydration Satisfactory - No signs of dehydration Vitals Value Taken Time Temp 36.7 C (98.1 F) 09/06/2019 10:38 Pulse 82 09/06/2019 10:43 Resp 18 09/06/2019 10:38 BP 109/69 09/06/2019 10:40 Arterial Line BP Arterial Line BP 2 SpO2 96 % 09/06/2019 10:43 Vitals shown include unvalidated device data. Electronically signed by Mitch Hood DO 09/06/2019 10:43 [facility] signed by DO debbie Brock t 09/06/2019 10:43 AM PDTAnesthesia Preprocedure Evaluation - Mitch Hood DO - 8:28 AM PDT ANESTHESIA PREANESTHESIA EVALUATION Cherrie Quijano 58 y.o. female 1960 [id number] Procedure(s): EGD (N/A Mouth) Medical,anesthesia, drug, allergy histories reviewed, NPO status verified. ECG reviewed. Labs reviewed. Review of Systems / Med History Anesthesia History (-) PONV, difficult intubation, malignant hyperthermia . Cardiovascular Last EKG: Results for orders placed or performed during the hospital encounter of 07/21/17 -ECG 12 lead Result Value Ref Ra nge INTERPRETATION TEXT Sinus rhythm with premature atrial complexes RSR' lead V1 and V2 nonspecific ST abnormalities in leads V5-6 which may be artifactual in nature though isch emia cannot be excluded Abnormal ECG No previous ECGs available Confirmed by VIRGIE MAXWELL MD ([id number]) on 07/23/2017 8:40:04 AM 2017 stress test: IMPRESSION: 1. Regadenoson EKG is normal. 2. Normal Regadenoson Sestamibi myocardial perfusion study with a normal left ventricular size and wall thickness. Evidence of anterior wall/breast soft tissue attenuation. Preserv ed left ventricular systolic function. LVEF by gated SPECT 73 %. . (-) hypertension, (-) congestive heart failure. (-) coronary artery disease. . Pulmonary (-) shortness of breath, recent URI, Chronic Obstructive Pulmonary Disease.(-) sleep apnea. (-) asthma. Gastrointestinal/Hepatic Esophagitis and dysphagia. (-) hypercholesterolemia. (+) acid reflux. Renal (-) chronic renal insufficiency. Endocrine (-) Diabetes. Hematology/Other (-) anemia. Neuromuscular (+) back pain. (-) neuromuscular disease. (+) seizures: Psychology (+) psychiatric history of anxiety and depression. Physical Exam Airway MP II, TM >3 FB, Mouth opening >2 FB. Neck: full ROM, extends >30 degrees. Jaw protrus ion normal. CV cardiovascular normal Rhythm regular. Rate normal. Pulm Clear to auscultation bilaterally. Neuro grossly normal. Anesthesia Plan ASA: 3 (Seizures) Type: General, TIVA. Induction: Intravenous. Potential problems: None anticipated. Monitors: Standard ASA monitors. Postop Pain Management: Consent statement: Anesthetic plan, alternatives, risks and benefits discussed with patient. drug reaction, he art problems, nausea, perioperative CV events, respiratory events, stroke, delirium Consenting person understands and agrees to proceed. PARQ. Spoke specifically about the risks of hypoxia and aspiration. All questions answered and ramna bailey wishes to proceed. . Electronically Signed by: Mitch Hood DO ESig date/time: 09/06/2019 8:28 documented in t his encounter Miscellaneous Notes Anesthesia Post-op Handoff - Mitch Hood DO - 09/06/2019 10:40 AM PDT ANESTHESIA HANDOFF NOTE Cherrie Quijano 58 y.o. female 1960 [id number] EGD (N/A Mouth) HANDOFF NOTE Handoff Protocol Used: post-procedure handoff checklist completed The following were completed during the transfer of care: 1. Identification of patient 2. Identification of responsible practitioner (primary service) 3. Discussion of pertinent medical history 4. Discussion of the surgical/procedure course (procedure, reason for surgery, procedure pe rformed) 5. Intraoperative anesthetic management and issues/concerns 6. Expectations/plans for the early post-procedure period 7. Opportunity for questions and acknowledgement of understanding of report from receiving team Patient Location: Phase II Condition: sedated Airway/O2: other (see comments) Multimodal analgesia: multimodal analgesia not used between 6 hours prior to anesthesia sta rt to PACU discharge Analgesics allergies?: Patient does not have documented allergies to multiple classes of an algesics Comments: Supplemental Oxygen administered as necessary to maintain oxygen saturations abov e 92%. If the surgery does not typically require Narcotics then Multi-Modal Analgesia is not indic ated. The significant anesthesia concerns and VS in Epic were reviewed with the receiving team. Mitch Hood DO 09/06/2019 10:40 [facility] by Mitch Hood DO a t 09/06/2019 10:40 AM PDTdocumented in this encounter Plan of Treatment Not on filedocumented as of this encounter Visit Diagnoses Not on filedocumented in this encounter Administered Medications + +---------+ +------+------+------+ | Medication Order | MAR | Action | Dose | Rate | Site | | | Action | Date | | | | + +---------+ +------+------+------+ | lactated ringers (LR) infusion | New Bag | 09/06/20 | | | | | at 10-100 mL/hr, Intravenous, | | 19 10:10 | | | | | CONTINUOUS, Starting Wed09/06/19 | | AM PDT | | | | | at 1045, TKO., Pre-op | | | | | | + +---------+ +------+------+------+ +---+---+ | | | +---+---+ + +-------+ +--------+---+---+ | lidocaine (PF) 2% injection | Given | 09/06/20 | 100 mg | | | | Intravenous, PRN, Starting Wed | | 19 10:21 | | | | | 09/06/19 at 1021, Anesthesia | | AM PDT | | | | | Intra-op | | | | | | + +-------+ +--------+---+---+ +---+---+ | | | +---+---+ + +-------+ +-------+---+---+ | propofol (DIPRIVAN) injection | Given | 09/06/20 | 60 mg | | | | Intravenous, PRN, Starting Wed | | 19 10:21 | | | | | 09/06/19 at 1021, Anesthesia | | AM PDT | | | | | Intra-op | | | | | | + +-------+ +-------+---+---+ +---+---+ | | | +---+---+ + +---------+ + +-------+---+ | propofol (DIPRIVAN) injection | New Bag | 09/06/20 | 200 | 108 | | | Intravenous, CONTINUOUS PRN, | | 19 10:21 | mcg/kg/m | mL/hr | | | Starting 09/06/19 at 1021, | | AM PDT | in | | | | Anesthesia Intra-op | | | | | | + +---------+ + +-------+---+ +---+---+ | | | +---+---+ documented in this encounter"
--- OUTSIDE RECORDS SUMMARY | ~2020-05-16 | XMS | Encounter Summary ---
Demographics + + + | Address | [address] | | | [place] [address] | + + + | Home Phone | | + + + | Preferred Language | Unknown | + + + | Marital Status | Single | + + + | Bahai Affiliation | 1013 | + + + | Race | Unknown | + + + | Ethnic Group | Unknown | + + + Author + + + | Author | [facility] | | | and [place] | + + + | Organization | [facility] | | | [...] Team Providers + +------+ + | Care English Lecturer Name | Role | Phone | + +------+ + | James Farmer MD | PCP | | + +------+ + Reason for Visit + +--------+ + | Reason | Onset | Comments | | | Date | | + +--------+ + | Dysphagia | 02/26/ | | | | 2019 | | + +--------+ + Encounter Details +--------+ + + + + | Date | Type | Department | Care Team | Description | +--------+ + + + + | 02/26/ | Telephone | [facility] | Nishant Arceo | Dysphagia | | 2019 | | GASTROENTEROLOGY | MD Tang [address] | | | | | [address] [facility] | [address] [facility] | | | | | [address] [place], [place] | [facility] [place] [address] | | | | | [address] | [phone] | | | | | [phone] | | | +--------+ + + + [...] this encounter Miscellaneous Notes Telephone Encounter - Berna Esqueda RN - 02/28/2020 8:49 AM PDTRelayed to patient she should be on a soft food diet until she completes her antifungal medication; we reviewed some food options; she advised she has been on the computer looking up what she has and manpreet d ideas; she states she is worried about some of the foods but not sure if it is just in her head. She will do as directed and reach out to Dr. Farmer as well about medication he has her on for her GERD (orange pill); believe she is referring to the pantoprazole (Protonix). elephone Nishant Pierce MD - 02/27/2020 6:25 PM PDTBrushings confirmed candidiasis. Rec ommend that she complete the diflucan course. Rec that she switch to more soft foods, liquid s, for 2-3 weeks while doing the antifungal. elephone Encounter - Berna Esqueda RN - 02/27/2020 11:00 AM PDTPatient called stating she has noticed some difficulty Wednesday and yesterday with waffl e and eggs; she had been able to eat Filet mignon, pizza rolls prior to this. She states sh e has been taking the Diflucan daily; reviewed with her post procedure notes that said regul ar diet, Diflucan 100 mg daily for 3 weeks and repeat EGD in 3 yrs? Informed patient that I did not see her pathology notes as of yet; however, I would route this note to Dr. Marielos moncada his recommendation regarding her continued difficulty swallowing. Procedure was 02/19. documented in th is encounter Plan of Treatment Not on filedocumented as of this encounter Visit Diagnoses Not on filedocumented in this encounter"
--- OUTSIDE RECORDS SUMMARY | ~2020-05-16 | XMS | Encounter Summary ---
Demographics + + + | Address | [address] | | | [place] [address] | + + + | Home Phone | | + + + | Preferred Language | Unknown | + + + | Marital Status | Single | + + + | Scientology Affiliation | [id number] | + + + | Race | Unknown | + + + | Ethnic Group | Unknown | + + + Author + + + | Author | [facility] | | | and [place] | + + + | Organization | [facility] | | | [...] Team Providers + +------+ + | Care Wood Preparation Supervisor Name | Role | Phone | + +------+ + | James Farmer MD | PCP | | + +------+ + Reason for Visit + +--------+ + | Reason | Onset | Comments | | | Date | | + +--------+ + | TCM - Hosp FU | 09/07/ | | | | 2018 | | + +--------+ + Encounter Details +--------+ + + + + | Date | Type | Department | Care Team | Description | +--------+ + + + + | 09/07/ | Telephone | [facility] | Cherelle Thompson, | TCM - Hosp FU | | 2018 | | MEDICINE Juanita FUNK | RN | | | | | [place], | | | | | | [place] [id number] | | | | | | [phone] | | | +--------+ + + + [...] this encounter Miscellaneous Notes Telephone Encounter - Cherelle Thompson RN - 09/07/2019 3:48 PM PDT SITUATION Transitional Care Management for follow-up on discharge from: Inpatient Acute [facility] Eligible for TCM Billing LOS [id number]? YES DISCHARGING PHYSICIAN: FREDY LUU MD 1ST ATTEMPT: CALLED CHERRIE ON 09/07/19 AT 3:50 PM. NO ANSWER. LEFT HER A VM TO RETURN MY KRISH L. 2ND ATTEMPT: CALLED CHERRIE THIS MORNING(09/08/19) AND WAS ABLE TO REACH HER FOR THIS TCM KRISH L. Patient questions/concerns needing provider review: CHERRIE DIDN'T HAVE ANY QUESTIONS AT THIS TIME. BACKGROUND Admission Date: 09/05/19 Discharge Date: 09/06/19 Discharge Disposition: Home or Self Care Principle Discharge Diagnosis: DYSPHAGIA, SMALL HIATAL HERNIA,ESOPHAGEAL STRICT URE, GASTRITIS, ESOPHAGITIS, DEPRESSION, ANXIETY ASSESSMENT General: How are you doing since you returned home?: Patient states, "I'M FEELING A LOT BETTER. I AT E SOME CREAM OF MUSHROOM SOUP YESTERDAY AND WAS ABLE TO SWALLOW IT OK AND TODAY I'M GOING TO EAT TOMATO SOUP. I'M GOING TO TAKE IT SLOW AND GRADUALLY INCREASE THE TEXTURE OF MY FOODS" SHE REPORTS THAT SHE HAS BEEN ABLE TO SWALLOW HER PILLS WHOLE. SHE TAKES BEAR ONE AT A TIME . Did you receive discharge instructions? YES Do you have any questions about the instructions? NO Patient Reported Review of Symptoms: (documentation by exception) difficulty tolerating food/fluids-DUE TO DYSPHAGIA Diet: Diet restrictions: Texture modification-MECHANICAL SOFT WITH THIN LIQUIDS Difficulties managing your dietary restrictions? 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 Reviewed all medications/supplements and any changes? THERE WERE NO CHANGES IN HER MEDS Do you manage your own medications? YES Patient understands the purpose of the medications: YES Patient understands when to take the medications: YES What questions do you have questions regarding your medications? NONE Medication Management Interventions: NONE NEEDED Discharge needs: Has equipment: WALKING STICK FOR LONG DISTANCES Receives help from: spouse or significant [id number] RECOMMENDATION Follow-up appointment with: DR FARMER ON 09/11/19 AT 1 PM. CONFIRMED APPOINTMENT WITH AGNES MOFFETT. Future Appointments Date Time Provider Department Center 09/14/2019 13:00 James Farmer MD [facility] Any other Specialists, Out-patient Therapy or Diagnostics/Labs: NONE Patient Education: Patient was advised to please bring in all medications to the visit: NO NOT NEEDED Informant verbalized understanding. No learning barriers noted. documented in this e ncounter Plan of Treatment Not on filedocumented as of this encounter Visit Diagnoses Not on filedocumented in this encounter
--- OUTSIDE RECORDS SUMMARY | ~2020-05-16 | XMS | Encounter Summary ---
Demographics + + + | Address | [address] | | | [place] [address] | + + + | Home Phone | | + + + | Preferred Language | Unknown | + + + | Marital Status | Single | + + + | Worship Affiliation | [id number] | + + + | Race | Unknown | + + + | Ethnic Group | Unknown | + + + Author + + + | Author | [facility] | | | and [place] | + + + | Organization | [facility] | | | and [...] Team Providers + +------+ + | Care Patternmaker Helper Name | Role | Phone | [...] | | | | | | | Candidiasis, | | | | | | | esophageal | | | | | | | ([facility]) | | | | | | | Esophageal | | | | | | | dysphagia | | | | | | | Esophagogast | | | | | | | hal junction | | | | | | | outflow | | | | | | | obstruction | | | | | | | | | | | | | | Esophagitis, | | | | | | | [employer] | | | | | | | grade D | | | | | | | Seizure | | | | | | | ([facility]) | | | | | | | Depression | | | | | | | with anxiety | | | | | | | Esophageal | | | | | | | dysmotility | | | | | | | | | | | | | | | | | | | | | Procedures | | | | | | | [place] | | | | | | | ESOPHAGOGAST | | | | | | | RODUODENOSCO | | | | | | | PY TRANSORAL | | | | | | | DIAGNOSTIC | | | | | | | [place] EGD | | | | | | | TRANSORAL | | | | | | | BIOPSY | | | | | | | SINGLE/MULTI | | | | | | | PLE MN | | | | | | | ANESTHESIA | | | | | | | UPPER GI | | | | | | | ENDOSCOPIC | | | | | | | PX NOS [place] | | | | | | | DILATE | | | | | | | ESOPHAGUS | | | | | | | [place] EGD | | | | | | | INJECTION | | | | | | | SCLEROSIS | | | | | | | ESOPHGL/JUN | | | | | | | HAL VARICES | | | | | | | [place] | | | | | | | INJECTION,ON | | | | | | | ABOTULINUMTO | | | | | | | XINA, 1 | | | | | | | UNITS EGD | | | | | | | W/ | | | | | | | DILATATION- | | | | | | | Botox | | | +--------+--------+ + + + + Encounter Details +--------+ + + + + | Date | Type | Department | Care Team | Description | +--------+ + + + + | 04/01/ | Hospital | [facility] | Nishant Snow | Esophageal | | 2019 | Encounter | [facility] | MD [address] | dysphagia; | | | | [address] | [address] [place] | Esophageal | | | | [place], [place] | [place] [address] | dysmotility; Gastric | | | | [address] | [phone] | erosion with | | | | [phone] | | bleeding | +--------+ + + + + Social [...] + + + | Blood Pressure | 114/79 | 04/01/2020 1:30 PM | | | | | PDT | | + + + + + | Pulse | 90 | 04/01/2020 1:30 PM | | | | | PDT | | + + + + + | Temperature | 36.3 C (97.3 F) | 04/01/2020 1:17 PM | | | | | PDT | | + + + + + | Respiratory Rate | 15 | 04/01/2020 1:17 PM | | | | | PDT | | + + + + + | Oxygen Saturation | 96% | 04/01/2020 1:30 PM | | | | | PDT | | + + + + + | Inhaled Oxygen | - | - | | | Concentration | | | | + + + + + | Weight | 75.7 kg (166 lb 14.2 | 04/01/2020 10:00 AM | | | | oz) | PDT | | + + + + + | Height | 162.6 cm (5' 4") | 04/01/2020 10:00 AM | | | | | PDT | | + + + + + | Body Mass Index | 28.65 | 04/01/2020 10:00 AM | | | | | PDT | | + + + + + documented in this encounter Discharge Instructions Instructions Maria Guadalupe Christianson RN - 04/01/2020Formatting of this note might be different f rom the original. Esophageal Dilation A balloon dilator may be used to widen a stricture in the esophagus. Anesophageal dilation is a procedureused to widen a narrowed section of your esophagus. This is the tube that leads from your throat to your stomach. Narrowing (stricture) of the esophagus can cause problems. These include trouble swallowing. This sheet explains what to expect with esophageal dilation. Whyesophageal dilation is needed Several problems can be treated withesophageal dilation. They include: Peptic stricture.This is caused by reflux esophagitis. With this problem, the esophagu s is irritated by acid reflux (heartburn). This occurs when acid from your stomach flows joaquin k up into the esophagus. Stomach acid damages the lining of the esophagus. This leads to a b uildup of scar tissue. As a result, the esophagus is narrowed. Schatzki s ring.This is an abnormal ring of tissue. It forms where the esophagus salty ts the stomach. It can cause trouble swallowing. It can also cause food to get stuck in the esophagus. The cause of this condition is not known. Achalasia.This condition stops food and liquids from moving into your stomach from the esophagus. It affects the lower esophageal sphincter (LES). The LES is a muscular ring that opens (relaxes) when you swallow. With achalasia, the LES does not relax. This condition ca n also cause problems with peristalsis. This is the normal muscular action of the esophagus that moves food into the stomach. Eosinophilic esophagitis. This is a redness and swelling (inflammation) in the esophagus . It is caused by an environmental trigger such as a food allergy. It can lead to pain, trou ble swallowing, and strictures. Less common causes of stricture. Other causes of stricture include radiation treatment a nd cancer. Before you have esophageal dilation Tell your provider about any medicines you take. This includes prescription medicines, o nsu-hqd-wzttsdt medicines, herbs, vitamins, and other supplements. Be sure to mention aspiri n or any blood thinners you re taking. Let your provider know if you need to take antibiotics before dental procedures. You may need to take them beforeesophageal dilation as well. Tell your provider about any health conditions you have, such as heart or lung disease. Also mention any allergies to medicines. You ll need to have an empty stomach for the procedure. Follow your provider s instr uctions for not eating and drinking before the procedure. Arrange to have a family member or friend drive you home after the procedure. During the procedure You may be given local anesthesia to numb your throat. You ll also likely be given med icine to relax you. The procedure takes [id number]. It does not cause trouble breath ing. A tube called an endoscope (scope)is used. This is a narrow tube with a tiny light and camera at the end. The scope is inserted through your mouth and into your esophagus. It let s your provider see inside your esophagus. To help guide your provider, an imaging method ca lled fluoroscopy may also be used. This creates a moving X-ray image on a computer screen. Next, special tiny tools are carefully guided through your mouth and down into the esoph mary. Theywiden the stricture and are then removed. Different types of instruments are use d. The type used depends on the size and cause of the stricture. Types include: ? Balloon dilator.A tiny empty balloon is put into the stricture using an endoscope. The balloon is slowly filled with air. The air is removed from the balloon when the stricture is widened to the right size. Balloon dilators are used to treat many types of strictures. ? Guided wire dilator.A thin wire is eased down the esophagus. A small tube that s wide r on one end is guided down the wire. It is put into the stricture to stretch it. These dila tors are used to treat all kinds of strictures. ? Bougies.These are weighted, cone-shaped tubes. Starting with smaller cones, your provid er uses increasingly larger cones until the stricture is stretched the right amount. Bougies are often used to treat strictures that are simple (short, straight, and not very narrow). After the procedure You ll be watched closely until your provider says you re ready to go home. You ll need to have a friend or family member drive you home. You may have a sore throat for the rest of the day. You may have pain behind your breastbone for a short time afterwards. You can start drinking fluids again after the numbness in your throat goes away. You can resume eating thesame day or thenext day. Risks and possible complications Risks and possible complications for esophageal dilation include: Infection A tear or hole in the esophagus lining, causing bleeding and possibly needing surgery to fix Risks of anesthesia Follow-up You may need to have the procedure repeated one or more times. This depends on the cause an d extent of the narrowing. Repeat procedurescan allow the dilation to take place more slow ly. This reduces the risks of the procedure. If your stricture was caused by reflux esophagitis, you ll likely need to take medicine t o treat that condition. Your provider will tell you more. When to call your provider Call your healthcare provider right away if you have any of the following after the procedu re: Fever of 100.4F (38.0C) Chest pain Trouble swallowing Vomiting blood or material that looks like coffee grounds Bleeding Black, tarry, or bloodystools Date Last Reviewed: 05/22/201619990496-8641 [employer]. [address] [place] [address], [place] [address]. All righ ts reserved. This information is not intended as a substitute for professional medical care. Always follow your healthcare professional's instructions. documented in this encounter Medications at Time [...] + + + +---------+ + + | busPIRone (BUSPAR) | TAKE 1 TABLET BY | 30 | 2 | 03/27/20 | | | 5 mg tablet | MOUTH 3 TIMES DAILY | tablet | | 20 | | | | NEEDED FOR | | | | | | | ANXIETY | | | | | + + + +---------+ + + | Cyanocobalamin | Take 1 tablet by | | 0 | | | | (B-12 PO) | mouth Daily. | | | | | + + + +---------+ + + | | Take 5 mLs by mouth | 240 mL | 2 | 03/21/20 | | | diphenhydrAMINE-visc | every 6 hours as | | | 20 | | | | needed for Other | | | | | | wdgclxqub-zineoell-w | (swish and swallow). | | | | | | agnesium-simethicone | (RECIPE = 1:1:1 | | | | | | (MIRACLE MOUTHWASH) | mixture of Maalox, | | | | | | suspension | diphenhydrAMINE, | | | | | | | viscous lidocaine) | | | | | + + + +---------+ + + | ibuprofen (ADVIL, | Take 400 mg by mouth | | 0 | | | | MOTRIN) 200 mg | every 6 hours as | | | | | | tablet | needed for Pain. | | | | | + + + +---------+ + + | Lidocaine HCl | Take 10 mLs by mouth | 240 mL | 0 | 03/19/20 | | | (MAGIC + NYSTATIN | every 4 hours. | | | 20 | | | MOUTHWASH) | | | | | | + + + +---------+ + + | Multiple Vitamin | Take 1 tablet by | | 0 | | | | (MULTI-VITAMIN PO) | mouth Daily. | | | | | + + + +---------+ + + | non-formulary | Take 2 tablets by | | 0 | | | | medication | mouth Daily. Super | | | | | | | Energy supplement | | | | | + + + +---------+ + + | pantoprazole | Take 1 tablet by | 30 | 8 | 01/02/20 | | | (PROTONIX) 40 mg | mouth every morning | tablet | | 20 | | | tablet | (before breakfast). | | | | | + + + +---------+ + + | UNABLE TO FIND | Take 1-2 capsules by | | 0 | | | | | mouth Daily. Focus | | | | | | | Factor | | | | | + + + +---------+ + + | benzonatate | Take 1 capsule by | 30 | 0 | 12/30/19 | | | (TESSALON) 200 MG | mouth 3 times daily | capsule | | 20 | 0 | | capsule | as needed for Cough. | | | | | + + + +---------+ + + | dilTIAZem | TAKE ONE TABLET BY | 120 | 0 | 03/11/20 | | | (CARDIZEM) 60 mg | MOUTH FOUR TIMES | tablet | | 20 | 0 | | tablet | DAILY | | | | | + + + +---------+ + + | diphenhydrAMINE | Take 25 mg by mouth | | 0 | | | | (BENADRYL) 25 mg | every 6 hours as | | | | 0 | | tablet | needed for Itching. | | | | | + + + +---------+ + + | hyoscyamine | Take 1 tablet by | 60 | 4 | 03/19/20 | | | (LEVSIN) 0.125 MG | mouth every 6 hours | tablet | | 20 | 0 | | tabletIndications: | as needed for Other | | | | | | Esophageal dysphagia | (esophageal spasms). | | | | | + + + +---------+ + + documented as of this encounter H&P Notes Nishant Snow MD - 04/01/2020 12:40 PM PDT PRE-ENDOSCOPY HISTORY AND PRE-SEDATION ASSESSMENT PATIENT NAME: Cherrie Quijano : 1960 TODAY'S DATE: 04/01/2020 PLANNED PROCEDURE: EGD PERTINENT HISTORY/INDICATION FOR PROCEDURE: Cherrie Quijano is a 59 y.o. female who is undergoing EGD for dysphagia and botox injection to LES for EGJ OO. Will also dilated the U ES given elevated pressures as seen on manometry. PAST HISTORY: 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 09/06/2019 new diagnosis so repeat egd in 1 year 08/2020 Depression with anxiety Dysphagia 06/16/2017 GERD (gastroesophageal reflux disease) Seizure (HCC) Tertiary contraction of esophagus Wears partial dentures upper PROBLEM LIST: Patient Active Problem List Diagnosis Depression with anxiety Obesity, Class I, BMI 30-34.9 PERIMENOPAUSAL SYNDROME FH DEPRESSION FH DIABETES FH STROKE Reflux esophagitis Conversion disorder Dysphagia Hiatal hernia with GERD Special screening for malignant neoplasms, colon Hyponatremia Seizure Severe protein-calorie malnutrition Thrombocytopenia Esophageal dysmotility Globus hystericus Benzodiazepine dependence GERD (gastroesophageal reflux disease) Pharyngoesophageal dysphagia Hematuria Chronic bilateral low back pain without sciatica Impaired functional mobility, balance, gait, and endurance Unsteady gait Reduced mobility Weakness of both lower extremities Gait disorder Tertiary contraction of esophagus Esophageal dysphagia Candidiasis, esophageal Esophagogastric junction outflow obstruction Esophagitis, [employer] grade D PAST SURGICAL HISTORY Past Surgical History: Procedure Laterality Date ESOPHAGEAL DILATATION GASTRIC MANOMETRY N/A 01/31/2020 Procedure: MANOMETRY ESOPHAGEAL; Surgeon: Nishant Snow MD; Location: [facility] GI MANOMETRY 02/05/2020 UPPER GASTROINTESTINAL ENDOSCOPY N/A 11/30/2017 Procedure: EGD; Surgeon: Loi Hui MD; Location: [facility] UPPER GASTROINTESTINAL ENDOSCOPY N/A 04/05/2019 Procedure: EGD; Surgeon: Loi Hui MD; Location: [facility] UPPER GASTROINTESTINAL ENDOSCOPY N/A 09/06/2019 Procedure: EGD; Surgeon: Rodriguez Gómez MD; Location: [facility] UPPER GASTROINTESTINAL ENDOSCOPY N/A 02/20/2020 Procedure: EGD; Surgeon: Nishant Snow MD; Location: [facility] HOME MEDS: No current facility-administered medications on file prior to encounter. Current Outpatient Medications on File Prior to Encounter Medication Sig Dispense Refill ascorbic acid (VITAMIN C) 500 mg chewable tablet Take 500 mg by mouth Daily. benzonatate (TESSALON) 200 MG capsule Take 1 capsule by mouth 3 times daily as needed f or Cough. 30 capsule 0 bismuth subsalicylate (PEPTO BISMOL) 262 mg chewable tablet Take 524 mg by mouth Daily as needed. busPIRone (BUSPAR) 5 mg tablet TAKE 1 TABLET BY MOUTH 3 TIMES DAILY NEEDED FOR ANXIE TY 30 tablet 2 Cyanocobalamin (B-12 PO) Take 1 tablet by mouth Daily. dilTIAZem (CARDIZEM) 60 mg tablet TAKE ONE TABLET BY MOUTH FOUR TIMES DAILY 120 tablet 0 diphenhydrAMINE (BENADRYL) 25 mg tablet Take 25 mg by mouth every 6 hours as needed for Itching. diphenhydrAMINE-visc vksiesfhr-qvaggqza-quyrmmaxk-simethicone (MIRACLE MOUTHWASH) suspe nsion Take 5 mLs by mouth every 6 hours as needed for Other (swish and swallow). (RECIPE = 1 :1:1 mixture of Maalox, diphenhydrAMINE, viscous lidocaine) (Patient not taking: Reported on 03/29/2020) 240 mL 2 hyoscyamine (LEVSIN) 0.125 MG tablet Take 1 tablet by mouth every 6 hours as needed for Other (esophageal spasms). (Patient taking differently: Take 125 mcg by mouth 2 times daily .) 60 tablet 4 ibuprofen (ADVIL, MOTRIN) 200 mg tablet Take 400 mg by mouth every 6 hours as needed fo r Pain. Lidocaine HCl (MAGIC + NYSTATIN MOUTHWASH) Take 10 mLs by mouth every 4 hours. (Patient not taking: Reported on 03/29/2020) 240 mL 0 Multiple Vitamin (MULTI-VITAMIN PO) Take 1 tablet by mouth Daily. non-formulary medication Take 2 tablets by mouth Daily. Super Energy supplement pantoprazole (PROTONIX) 40 mg tablet Take 1 tablet by mouth every morning (before break fast). 30 tablet 8 UNABLE TO FIND Take 1-2 capsules by mouth Daily. Focus Factor ALLERGIES No Known Allergies Mallampati Class 2 (upper half of tonsil fossa) [place] [employer]est[employer] Grade:ASA 3 - A patient with severe systemic disease Sedation Plan: Monitored anesthesia care EXAMINATION: BP 120/74 | Pulse 91 | Temp 36.2 C (97.2 F) (Temporal) | Resp 13 | Ht 1.626 m (5' 4 ") | Wt 75.7 kg (166 lb 14.2 oz) | LMP (LMP Unknown) | SpO2 97% | BMI 28.65 kg/m General: Alert and oriented Throat: Normal Lungs: Clear Heart: Regular rate and rhythm with out significant murmur Abdomen: flat, normal bowel sounds. Soft, nontender 1. Available medical records have been reviewed. 2. Medication list reviewed. IMPRESSION: Patient appropriate for endoscopy. PLAN: 1. Proceed with procedure as stated above with monitored anesthesia care 2. Procedure, indications, risks and alternatives explained to patient/family and they agre ed to proceed and consent was signed. 3. Patient will be reevaluated immediately (1-2 minutes) before sedation administration and approved for the plan as stated above. Electronically Signed by: Nishant Snow MD 04/01/2020 [facility] VERIFICATION OF CONSENT (PARQ) The patient counseled regarding the procedure, its indications, risks, potential complicati ons and alternatives. Any questions were answered. Consent was obtained. Nishant Snow MD, 04/01/2020 12:40 PM [facility] Portions of this chart may have been created with Jarvam voice recognition software. Occasi onal wrong-word or sound-alike substitutions may have occurred due to the inherent shannon itations of voice recognition software. Please read the chart carefully and recognize, using context, where these substitutions have occurred documented in thi s encounter Miscellaneous Notes D-C Instructions Provation - Nishant Snow MD - 04/01/2020 12:39 PM PDTDischarge Ins tructions for Upper Endoscopy Patient: Cherrie Quijano : 1960 Acct: [id number] Exam Date: Wednesday, April 01, 2020 Doctor: NISHANT SNOW MD The chances of difficulty following this [...] stools You may reach your physician at . If unable to reach your physician, call [facility] Emergency Department at Ext. [phone] Your doctor recommends these additional instructions: - The patient will be observed post-procedure, until all discharge criteria are met. - Full liquid diet today, then advance as tolerated to resume regular diet. - Continue present medications. - Repeat upper endoscopy in 6 months for surveillance of Mares's esophagus. - Return to my office in 4 weeks. 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 - avoid nsaid medications (ibuprofen) as this is the likely cause of the gastric erosion. These instructions have been explained to the patient and/or escort. A copy has been given to the patient/escort. Nurse Signature Patient Signature Escort Signature Date NISHANT SNOW MD 04/01/2020 1:27:08 PM This report has been signed electronically. documented in this encounter Plan of Treatment Not on filedocumented as of this encounter Procedures + +--------+ + + + | Procedure Name | Priori | Date/Time | Associated Diagnosis | Comments | | | ty | | | | + +--------+ + + + | EGD | | 04/01/2020 | Candidiasis, | | | | | 12:45 PM | esophageal (HCC) | | | | | PDT | Esophageal dysphagia | | | | | | Esophagogastric | | | | | | junction outflow | | | | | | obstruction | | | | | | Esophagitis, [place] | | | | | | [place] grade D | | | | | | Seizure ([facility]) | | | | | | Depression with | | | | | | anxiety Esophageal | | | | | | dysmotility | | + +--------+ + + + | *TERMED* [place] UPPER GI | Routin | 04/01/2020 | | Results for this | | ENDOSCOPY,EXAM | e | 12:39 PM | | procedure are in the | | | | PDT | | results section. | + +--------+ + + + documented in this encounter Results EGD (04/01/2020 12:39 PM PDT) + + | Specimen | + + | | + + + +--------- -----+ | Narrative | Performe d At | + +--------- -----+ | [facility] | | [facility] CenterIlstroenterologyPatient Name: Cherrie Quijano | BIANCA N | | DawnProcedure Date: 04/01/2020 12:39 PMMRN: [id number] Number: | | | [id number] of : 1960Note Status: FinalizedAttending | | | MD: NISHNAT SNOW MDProcedure Type: Upper GI | | | endoscopyIndications: DysphagiaReferring MD: | | | James Farmer MD (Referring MD)Medicines: | | | Monitored Anesthesia CareComplications: No | | | immediate complications.Procedure: Pre-Anesthesia Assessment: | | | - Prior to the procedure, a History and Physical was performed, | | | and patient medications and allergies were reviewed. The | | | patient is competent. The risks and benefits of the procedure | | | and the sedation options and risks were discussed with the | | | patient. All questions were answered and informed consent was | | | obtained. Patient identification and proposed procedure were | | | verified by the physician, the nurse and the anesthesiologist | | | in the pre-procedure area in the procedure room. Mental Status | | | Examination: alert and oriented. Airway Examination: Mallampati | | | Class II (the uvula but not tonsillar pillars visualized). | | | Respiratory Examination: clear to [...] through the mouth, and advanced to the second part | | | of duodenum. The upper GI endoscopy was accomplished without | | | difficulty. The patient tolerated the procedure well.Estimated | | | Blood Loss: Estimated blood loss: none.Findings: The | | | cricopharyngeus, upper third of the esophagus and middle third of | | | the esophagus were normal. A guidewire was placed and the scope was | | | withdrawn. Dilation was performed with a Savary dilator with | | | mild resistance at 18 mm. The dilation site was examined and | | | showed no change. Estimated blood loss: none. There were | | | esophageal mucosal changes classified as Mares's stage C1-M3 | | | per Moraga criteria present in the lower third of the esophagus. | | | The maximum longitudinal extent of these mucosal changes was 3 cm | | | in length. Top of folds at 36cm, Z line at 33cm. Abnormal | | | motility was noted at the lower esophageal sphincter. The | | | distal esophagus/lower esophageal sphincter is open. Area was | | | successfully injected with 100 units botulinum toxin just proximal to | | | the LES. Red blood was found in the gastric body. A | | | single bleeding localized erosion was found in the gastric body. | | | Coagulation for hemostasis using argon plasma was successful. | | | The exam of the stomach was otherwise normal. A 2 cm hiatal | | | hernia was present. The duodenal bulb and second portion of the | | | duodenum were normal.Impression: - Normal cricopharyngeus, upper | | | third of esophagus and middle third of esophagus. Dilated to | | | 18mm. - Esophageal mucosal changes classified as Mares's stage | | | C1-M3 per Moraga criteria. Not due to have surveillance | | | biopsies. - Abnormal esophageal motility, EGJ outflow | | | obstruction diagnosed on manometry. Injected with botulinum | | | toxin. - Red blood in the gastric body. - Gastric erosion | | | with bleeding. Treated with argon plasma coagulation (APC). | | | Likely NSAID induced. - 2 cm hiatal hernia. - Normal | | | duodenal bulb and second portion of the duodenum. - No specimens | | | collected.Recommendation: - The patient will be observed | | | post-procedure, until all discharge criteria are met. - | | | Full liquid diet today, then advance as tolerated to resume regular | | | diet. - Continue present medications. - Repeat upper | | | endoscopy in 6 months for surveillance of Mares's esophagus. | | | - Return to my office in 4 weeks. - Can stop GI cocktail | | | (nystatin/lidocaine mix) - Continue pantoprazole 40mg once daily | | | usp - avoid nsaid medications (ibuprofen) as this is the | | | likely cause of the gastric erosion.NISHANT SNOW | | | 04/01/2020 1:27:08 PMThis report has been signed electronically.Note | | | Initiated On: 04/01/2020 12:39 PMNumber of Addenda: 0 [place] | | | [facility] | | | criteria are met. | | | - Full liquid diet today, then advance as tolerated to resume regular | | | diet. | | | - Continue present medications. | | | - Repeat upper endoscopy in 6 months for surveillance of Mares's | | | esophagus. | | | - Return to my office in 4 weeks. | | | - Can stop GI cocktail (nystatin/lidocaine mix) | | | - Continue pantoprazole 40mg once daily usp | | | - avoid nsaid medications (ibuprofen) as this is the likely cause of the | | | gastric erosion. | | |NISHANT SNOW MD | | |04/01/2020 1:27:08 PM | | |This report has been signed electronically. | | |Note Initiated On: 04/01/2020 12:39 PM | | |Number of Addenda: 0 | | | [facility] | | + +--------- -----+ + +---------+ + + | Performing | Address | City/State/Zipcode | Phone Number | | Organization | | | | + +---------+ + + | [place] | | | | + +---------+ + + documented in this encounter Visit Diagnoses + + | Diagnosis | + + | Esophageal dysphagia Dysphagia, pharyngoesophageal phase | + + | Esophageal dysmotility Dyskinesia of esophagus | + + | Gastric erosion with bleeding Other specified gastritis with hemorrhage | + + | Candidiasis, esophageal (HCC) Candidiasis of the esophagus | + + | Esophagogastric junction outflow obstruction | + + | Esophagitis, [place] grade D | + + | Seizure (HCC) Other convulsions | + + | Depression with anxiety Dysthymic disorder | + + documented in this encounter Admitting Diagnoses + + | Diagnosis | + + | Candidiasis, esophageal (HCC) Candidiasis of the esophagus | + + | Esophageal dysphagia Dysphagia, pharyngoesophageal phase | + + | Esophagogastric junction outflow obstruction | + + | Esophagitis, [place] grade D | + + | Seizure (HCC) Other convulsions | + + | Depression with anxiety Dysthymic disorder | + + | Esophageal dysmotility Dyskinesia of esophagus | + + documented in this encounter Administered Medications + +--------+---------+------+------+------+ | Medication Order | MAR | Action | Dose | Rate | Site | | | Action | Date | | | | + +--------+---------+------+------+------+ + +---+ | albuterol 2.5 mg/3 mL nebulizer | | | solution 2.5 mg 2.5 mg, | | | Nebulization, ONCE PRN, Wheezing, | | | Starting 04/01/20 at 1318, | | | For 1 dose, Notify anesthesia if | | | patient is wheezing and does not | | | have a history of asthma or COPD | | | or current smoking., | | | Recovery/Phase I | | + +---+ | | | + +---+ | albuterol-ipratropium 2.5-0.5 | | | mg/3 mL nebulizer solution 3 mL | | | 3 mL, Nebulization, ONCE PRN, | | | Wheezing, Shortness of Breath, | | | Starting 04/01/20 at 1318, For | | | 1 dose, Recovery/Phase I | | + +---+ | | | + +---+ | dextrose 50% injection 12.5-25 | | | g 12.5-25 g, Intravenous, EVERY | | | 15 MIN PRN, Low Blood Sugar, For | | | hypoglycemia. Give 12.5g (25ml) | | | IV if blood glucose 50-69 | | | mg/dL. Give 25g (50ml) IV if | | | blood glucose < 50, Starting Mon | | | 04/01/20 at 1318, Give over 2 min. | | | Repeat in 15 min if blood | | | glucose remains < 70 mg/dL. | | | Repeat blood glucose in 30 min | | | once blood glucose > 70., | | | Recovery/Phase I | | + +---+ | | | + +---+ | ePHEDrine (AKOVAZ) 50 mg/mL | | | injection 5 mg 5 mg, | | | Intravenous, EVERY 5 MIN PRN, if | | | SBP <90., Starting 04/01/20 at | | | 1318, Hold if HR > 100. Maximum | | | total dose 20mg., Recovery/Phase | | | I | | + +---+ | | | + +---+ | fentaNYL (PF) injection 25-50 | | | mcg 25-50 mcg, Intravenous, | | | EVERY 5 MIN PRN, Pain, Initial | | | postop urgent pain or escalating | | | pain, Starting 04/01/20 at | | | 1318, For 4 doses, Every 5 | | | minutes PRN for initial postop | | | urgent pain or escalating pain up | | | to 2 doses maximum. If patient | | | meets opioid tolerant definition, | | | can give up to 4 doses maximum. | | | First dose must be lowest dose. | | | Use Pasero Sedation Scale. | | | [Opioid tolerant = One week or | | | longer, pbzpux-ske-wyeij use of | | | at least the following DAILY | | | dose: 60mg oral morphine, 60mg | | | oral hydrocodone, 30mg oral | | | oxycodone, 8mg oral | | | hydromorphone, fentanyl patch | | | 25mcg/hr, or equivalent dose of | | | another opioid], Recovery/Phase I | | + +---+ | | | + +---+ | labetalol (TRANDATE) 5 mg/mL | | | injection 5 mg 5 mg, | | | Intravenous, EVERY 5 MIN PRN, For | | | SBP > 180, DBP > 100, Starting | | | 04/01/20 at 1318, Hold if HR < | | | 60. Maximum total dose 300mg. | | | Notify anesthesia if patient | | | requires more than 50mg., | | | Recovery/Phase I | | + +---+ | | | + +---+ + +---------+ +---+-------+---+ | lactated ringers (LR) infusion | New Bag | 04/01/20 | | 100 | | | at 100 mL/hr, Intravenous, | | 20 10:59 | | mL/hr | | | CONTINUOUS, Starting 04/01/20 | | AM PDT | | | | | at 1045, Pre-op | | | | | | + +---------+ +---+-------+---+ + +---+ | | | + +---+ | metoclopramide (REGLAN) 5 mg/mL | | | injection 10 mg 10 mg, | | | Intravenous, ONCE PRN, Nausea, | | | Vomiting, Starting Wed04/01/20 at | | | 1318, For 1 dose, Protect from | | | light., Recovery/Phase I | | + +---+ | | | + +---+ + +-------+ +-------+---+ + | onabotulinumtoxinA (BOTOX) | Given | 04/01/20 | 100 | | Other | | injection 100 Units 100 Units, | | 20 12:56 | Units | | (Comment | | Intradermal, ONCE, Wed04/01/20 at | | PM PDT | | | ) | | 1245, For 1 dose | | | | | | + +-------+ +-------+---+ + + +---+ | | | + +---+ | ondansetron (ZOFRAN) injection | | | 4 mg 4 mg, Intravenous, EVERY 4 | | | HOURS PRN, Nausea, Vomiting, | | | Starting 04/01/20 at 1318, | | | Recovery/Phase I | | + +---+ | | | + +---+ documented in this encounter Additional Health Concerns + + + + | Infection | Noted Time | Resolved Time | + + + + | Rule out COVID-19 | 03/31/2020 2:32 PM | 04/01/2020 12:00 PM | | | PDT | PDT | + + + + documented as of this encounter
--- OUTSIDE RECORDS SUMMARY | ~2020-05-16 | XMS | Encounter Summary ---
Demographics + + + | Address | [address] | | | [place] [address] | + + + | Home Phone [...] + + + | Author | [facility] | | | and [place] | + + + | Organization | [facility] | | | [...] Team Providers + +------+ + | Care Art Installer Name | Role | Phone | + +------+ + | James Farmer MD | PCP | | + +------+ + Reason for Visit +--------+--------+ + | Reason | Onset | Comments | | | Date | | +--------+--------+ + | Other | 01/22/ | | | | 2019 | | +--------+--------+ + Encounter Details +--------+ + + + + | Date | Type | Department | Care Team | Description | +--------+ + + + + | 01/22/ | Telephone | [facility] [place] | [facility], | [facility] | | 2019 | | GASTROENTEROLOGY | KELLY Escalante [address] | | | | | [address] [place] | [place], [address] [address] | | | | | [address] [place], [place] | [place] | | | | | [address] | [address] | | | | | [phone] | | | +--------+ + + + [...] this encounter Miscellaneous Notes Telephone Encounter - Kurt Perez - 01/23/2020 1:24 PM PSTPatient returning MORGAN Olson call in regarding her manometry. Patient wants to be scheduled this Wednesday at 730 AM Routing to clinical staff. documented in this encounter Plan of Treatment Not on filedocumented as of this encounter Visit Diagnoses Not on filedocumented in this encounter"
--- OUTSIDE RECORDS SUMMARY | ~2020-05-16 | XMS | Encounter Summary ---
Demographics + + + | Address | [address] | | | [place] [address] | + + + | Home Phone | | + + + | Preferred Language | Unknown | + + + | Marital Status | Single | + + + | Yazdanism Affiliation | 1013 | + + + | Race | Unknown | + + + | Ethnic Group | Unknown | + + + Author + + + | Author | [facility] | | | and [place] | + + + | Organization | [facility] | | | [...] Team Providers + +------+ + | Care Medical Record Administrator Name | Role | Phone | + +------+ + | James Farmer MD | PCP | | + +------+ + Encounter Details +--------+ + + + + | Date | Type | Department | Care Team | Description | +--------+ + + + + | 11/13/ | Orders Only | [facility] [place] [facility] | James Farmer, | | | 2019 | | MEDICINE [address] | [address] | | | | | [place], | [place] | | | | | [place] [address] | [address] | | | | | [phone] | | | +--------+ + + + [...]
--- OUTSIDE RECORDS SUMMARY | ~2020-05-16 | XMS | Encounter Summary ---
Demographics + + + | Address | [address] | | | [place] [address] | + + + | Home Phone | | + + + | Preferred Language | Unknown | + + + | Marital Status | Single | + + + | Protestant Affiliation | 1013 | + + + | Race | Unknown | + + + | Ethnic Group | Unknown | + + + Author + + + | Author | [facility] | | | and [place] | + + + | Organization | [facility] | | | [...] Team Providers + +------+ + | Care Glass Cutter Helper Name | Role | Phone | + +------+ + | James Farmer MD | PCP | | + +------+ + Reason for Visit + +--------+ + | Reason | Onset | Comments | | | Date | | + +--------+ + | Dysphagia | 04/03/ | difficulty with soft food diet; constant burping | | | 2019 | | + +--------+ + Encounter Details +--------+ + + + + | Date | Type | Department | Care Team | Description | +--------+ + + + + | 04/03/ | Telephone | [facility] [place] | Nishant Arceo | Dysphagia | | 2019 | | GASTROENTEROLOGY | MD Tang [address] | (difficulty with | | | | [address] | [address] [place] | soft food diet; | | | | [address] [place] | [place] [address] | constant burping) | | | | [address] | [phone] | | | | | [phone] | | | +--------+ + + + [...] Telephone Encounter - Berna Esqueda RN - 04/03/2020 11:18 AM PDTReviewed with patie nt how to take her medications; she will take her protonix first - wait 15 min then her levs in and other med and wait 15 min then eat; she verbalized understand but was having difficul ty understanding how; took over 20 min to review. elephone Encounter - Kurt Perez - 04/03/2020 9:57 AM PDTPatient returning MORGAN Coronel call. Routing to clinical staff. Pt phone number: [phone] signed by Kurt Perez at 04/03/2020 9:58 A M PDTTelephone Encounter - Berna Esqueda RN - 04/03/2020 9:51 AM PDTCalled patient back but received VM; left detailed message advising her to take Levsin 15 min before eating ; and advised her that botox could take 5-7 days to work. elephone Encounter - Nishant Arceo MD - 9:40 AM PDTPlease make sure that she is taking her levsin (hyoscyamine) 15 minutes before she eats. The botox can take some time to kick in, 5-7 days, please ask her to be pat ient. Some people just don't respond to botox. elephone Encount er - Berna Esqueda, MORGAN - 04/03/2020 8:36 AM PDTCall from patient; she advised since procedure on Wednesday she has had a constant burping issues, difficulty sleeping and eating so ft foods; she stated she tried to eat cream of chicken and crackers last night and couldn't swallow it; said it came back up; she had a hard time sleeping; constant burping; she was fi larry able to get the "air pocket out"; she states she is not able to keep anything down; sh e tried vanilla yogurt and cream of wheat but not able to get it down; she is not sure what to do. This started on Wednesday. Wednesday she had mashed potatoes and gravy and they went down okay, but last night they didn' t want to go down after thinning food down more and some came back up. She keeps going back and forth on days and foods; she is eating the same foods both days but Wednesday it was fine b ut Wednesday not so good. Using medications but nervous about taking as she is afraid she will throw her meds back up ; tried to take tums as well but started to come back up; (reguritating some stuff up into c up) she is drinking powerade for electrolytes but she is nervous she is afraid and doesn't k now what to do and frustrated. Advised I would route this matter to Dr. Arceo for his recomm endation. She verbalized understanding. documented in this encounter Plan of Treatment Not on filedocumented as of this encounter Visit Diagnoses Not on filedocumented in this encounter
--- OUTSIDE RECORDS SUMMARY | ~2020-05-16 | XMS | Encounter Summary ---
Demographics + + + | Address | [address] | | | [place] [address] | + + + | Home Phone | | + + + | Preferred Language | Unknown | + + + | Marital Status | Single | + + + | Confucianist Affiliation | 1013 | + + + [...] Team Providers + +------+ + | Care Fisher Lampara Net Name | Role | Phone | + +------+ + | James Farmer MD | PCP | | + +------+ + Reason for Visit + +--------+ + | Reason | Onset | Comments | | | Date | | + +--------+ + | Oral Swelling | 08/13/ | | | | 2016 | | + +--------+ + Encounter Details +--------+ + + + + | Date | Type | Department | Care Team | Description | +--------+ + + + + | 08/13/ | Telephone | [facility] | James Farmer, | Oral Swelling | | 2016 | | MEDICINE [address] | [address] [facility] | | | | | [place], | [place] | | | | | [place] [address] | [id number] | | | | | [phone] | | | +--------+ + + + [...] Telephone Encounter - Ashlie Blevins LPN - 08/13/2017 8:59 AM PDTPhoned back to patient and advised until we can see her we wont be reccomending any vitamin supplements. If she fee ls that she has lack of nourishment she can use ensure shakes and have some gatorade. She is currently using broth and trying some soups but is having trouble getting anything with brian ture to go down. Advised to return to ER if she has any issues prior to her apptElectronical ly signed by Ashlie Blevins LPN at 08/13/2017 9:07 AM PDTTelephone Encounter - Lisa Gunn - 08/13/2017 8:34 AM PDTContact/Caller: Cherrie Contact Number: [phone] Provider/Nurse: Dr. Farmer Reason for Call: Patient is having throat issues and can't eat very much, she is worried ab out getting enough nutrition and would like to talk to the nurse documented in this enco unter Plan of Treatment Not on filedocumented as of this encounter Visit Diagnoses Not on filedocumented in this encounter"
--- OUTSIDE RECORDS SUMMARY | ~2020-05-16 | XMS | Encounter Summary ---
Demographics + + + | Address | [address] | | | [place] [address] | + + + | Home Phone [...] + + + | Author | [facility] | | | and [place] | + + + | Organization | [facility] | | [...] Team Providers + +------+ + | Care Molybdenum Steamer Operator Name | Role | Phone | + +------+ + | James Farmer MD | PCP | | + +------+ + Reason for Visit +--------+--------+ + | Reason | Onset | Comments | | | Date | | +--------+--------+ + | Other | 01/21/ | | | | 2019 | | +--------+--------+ + Encounter Details +--------+ + + + + | Date | Type | Department | Care Team | Description | +--------+ + + + + | 01/21/ | Telephone | [address] | [facility], | [facility] | | 2019 | | GASTROENTEROLOGY | KELLY Escalante [address] | | | | | [address] [place] | [place], [place] [address] | | | | | [address] [place], [place] | [place] | | | | | [address] | [address] | | | | | [phone] | | | +--------+ + + + [...] this encounter Miscellaneous Notes Addendum Note - Jocelyn Magallon RN - 01/26/2020 1:14 PM PST Addended by: MARLI MAGALLON on: 01/26/2020 01:14 PM Modules accepted: Orders ddendum Note - Jocelyn Magallon RN - 01/24/2020 9:15 AM PST Addended by: JOCELYN MAGALLON on: 09:15 AM Modules accepted: Orders elephone Enco unter - Jocelyn Magallon RN - 01/24/2020 9:07 AM PSTSchedule patient for esophageal ma nometry on January 30 checking at 730. She will have nothing after midnight. She will not ta ke any of her medications that morning. Dr. Zepeda will read the study and patient will see Magdy lea for results on February 05. Patient states she continues to have difficulty getting food d own the mid esophagus. A M PSTTelephone Encounter - Jocelyn Magallon RN - 01/23/2020 8:13 AM PSTMessage left fo r patient offering manometry this Wednesday at 730 or 8 or next Wednesday the or next y the . eleph one Encounter - Jocelyn Magallon RN - 01/22/2020 3:00 PM PSTNote sent to Romana in endo. She is not in today so will email me tomorrow optional dates. elephone Encounter - Jocelyn Magallon R N - 01/22/2020 10:52 AM PSTSpoke with patient and offered esophageal manometry. She is agre eable to anytime. Will obtain date and auth and call pt. elephone Encounter - Kurt Perez - 01/22/2020 9:41 AM PSTName of Caller:Cherrie Quijano Name of Patient:Cherrie Quijano Reason for call: Patient called and stated that she can't keep food down, the remedies shonda t she usually tries are not working. Patient has tried to eat pudding, cream and oats, and t bishnu sandwich. Routing to clinical staff to advise. Patient schedule on February 06, 2020. Provider/Nurse: Alon Call back number: [phone] documented in this encou nter Plan of Treatment Not on filedocumented as of this encounter Results Manometry - Hospital Performed (02/05/2020 4:49 PM PDT) + + + | Narrative | Performed At | + + + | Nishant Arceo MD 02/05/2020 4:59 PM | | | High-resolution esophageal manometry report Patient Name: Cherrie Urias | | | Samm Patient : 1960 Date of Procedure: 01/31/2020 | | | Referring Provider: KELLY Camarena Interpreting | | | Physician: Nishant Arceo MD Reason for Referral dysphagia | | | Procedure Information The high-resolution manometry catheter was | | | placed without difficult by a nasal route. Findings Swallows | | | analyzed: 10 Landmarks: Proximal LES: 43.0 LES length: 4.0 | | | Esophageal length: 22.0 Hiatal hernia: no LES pressures: Basal | | | (resp mean)(mmHg): 42.9 IRP (mean)(mmHg): 23.0 (<15.0) UES | | | pressures: Basal (mmHg): 134.3 (34-104) Residual (mmHg): 6.3 | | | [place] Classification: % failed: 20 % weak: 60 % ineffective: 80 | | | % panesophageal pressurization: 0 % premature: 0 % fragmented: 0 % | | | intact: 20 Distal latency: 9.7 DCI (mean) (mmHg-cm-s): 323.8 DCI | | | (highest)(mmHg-cm-s): 527.8 Impedence Incomplete bolus clearance | | | (%): 20 Summary This is an abnormal study. The IRP is 23.0mmHg, | | | which is greater than 15 mmHg. The swallows are otherwise normal. | | | The findings are consistent with EGJ outflow obstruction per the | | | [place] Classification scheme. Also, her upper esophageal sphincter | | | basal pressure was elevated. This could be contributing to her | | | dysphagia. She previously had a savary dilation in 2018, and I | | | wonder if this helped her dysphagia at all. If it did she may | | | benefit from repeat savary dilation. Recommendations Return to | | | referring physician Would recommend referral to a tertiary care | | | center to consider further treatment / evaluation of her EGJ outflow | | | obstruction (EUS, CT, botox, pneumatic dilation, POEMs). Also, her | | | upper esophageal sphincter basal pressure was elevated. This could | | | be contributing to her dysphagia. She previously had a savary | | | dilation in 2018, and I wonder if this helped her dysphagia at all. | | | If it did she may benefit from repeat savary dilation. | | + + + documented in this encounter Visit Diagnoses + + | Diagnosis | + + | Esophageal dysphagia - Primary Dysphagia, pharyngoesophageal phase | + + documented in this encounter"
--- OUTSIDE RECORDS SUMMARY | ~2020-05-16 | XMS | Encounter Summary ---
Demographics + + + | Address | [address] | | | [place] [address] | + + + | Home Phone | | + + + | Preferred Language | Unknown | + + + | Marital Status | Single | + + + | Voodoo Affiliation | 1013 | + + + | Race | Unknown | + + + | Ethnic Group | Unknown | + + + Author + + + | Author | [facility] | | | and [place] | + + + | Organization | [facility] | | | [...] Team Providers + +------+ + | Care Quality Review Trainer Name | Role | Phone | + +------+ + PCP | Unavailable | + +------+ + Encounter Details +--------+ + + + + | Date | Type | Department | Care Team | Description | +--------+ + + + + | 03/26/ | Hospital | [facility] | | | | 1998 | Encounter | MED CTR XRAY [address] | | | | | | [place] | | | | | | [place] [address] | | | | | | [phone] | | | +--------+ + + + [...]
--- OUTSIDE RECORDS SUMMARY | ~2020-05-16 | XMS | Encounter Summary ---
Demographics + + + | Address | [address] | | | [place] [address] | + + + | Home Phone | | + + + | Preferred Language | Unknown | + + + | Marital Status | Single | + + + | Yazidi Affiliation | 1013 | + + + | Race | Unknown | + + + | Ethnic Group | Unknown | + + + Author + + + | Author | [facility] | | | and [place] | + + + | Organization | [facility] | | | [...] Team Providers + +------+ + | Care Polystyrene Bead Molder Name | Role | Phone | + +------+ + | No, Physician | PCP | Unavailable | + +------+ + Encounter Details +--------+ + + + + | Date | Type | Department | Care Team | Description | +--------+ + + + + | 06/09/ | Abstract | [facility] | Loi Hui MD | | | 2016 | | GASTROENTEROLOGY | [address] [facility] | | | | | [address] [facility] | [place], [place] | | | | | [address] [place], [place] | [address] | | | | | [address] | [phone] | | | | | [phone] | | | +--------+ + + + [...]
--- OUTSIDE RECORDS SUMMARY | ~2020-05-16 | XMS | Encounter Summary ---
Demographics + + + | Address | [address] | | | [place] [address] | + + + | Home Phone | | + + + | Preferred Language | Unknown | + + + | Marital Status | Single | + + + | Congregational Affiliation | 1013 | + + + | Race | Unknown | + + + | Ethnic Group | Unknown | + + + Author + + + | Author | [facility] | | | and [place] | + + + | Organization | [facility] | | [...] Team Providers + +------+ + | Care Electric Deicer Inspector Name | Role | Phone | + +------+ + | James Farmer MD | PCP | | + +------+ + Reason for Visit +--------+ + | Reason | Comments | +--------+ + | Cough | Exam 3; Cough, fever, chills, nasal congestion since Wednesday | +--------+ + Encounter Details +--------+---------+ + + + | Date | Type | Department | Care Team | Description | +--------+---------+ + + + | 11/16/ | Office | [facility] | Rodriguez Pena, | Maxillary sinusitis, | | 2017 | Visit | CARE [address] | [address] | unspecified | | | | [place] | [place] | chronicity (Primary | | | | [address] | [address] | Dx) | | | | [phone] | | | +--------+---------+ + + + [...] + + + | Blood Pressure | 90/51 | 11/16/2017 10:33 AM | | | | | PST | | + + + + + | Pulse | 91 | 11/16/2017 10:33 AM | | | | | PST | | + + + + + | Temperature | 37.2 C (99 F) | 11/16/2017 10:33 AM | | | | | PST | | + + + + + | Respiratory Rate | 20 | 11/16/2017 10:33 AM | | | | | PST | | + + + + + | Oxygen Saturation | 96% | 11/16/2017 10:33 AM | | | | | PST | | + + + + + | Inhaled Oxygen | - | - | | | Concentration | | | | + + + + + | Weight | 79.6 kg (175 lb 7.8 | 11/16/2017 10:33 AM | | | | oz) | PST | | + + + + + | Height | 157.5 cm (5' 2") | 11/16/2017 10:33 AM | | | | | PST | | + + + + + | Body Mass Index | 32.1 | 11/16/2017 10:33 AM | | | | | PST | | + + + + + documented in this encounter Patient Instructions Patient Instructions Rodriguez Pena MD - 11/16/2017 9:45 AM PSTGet plenty of rest and w ater. Take the Biaxin as directed. Recheck as needed. documented in this encounter Progress Notes Rodriguez Pena MD - 11/16/2017 9:45 AM PSTFormatting of this note might be different fr om the original. Subjective: Patient ID: Cherrie Quijano is a 57 y.o. female. HPI Patient's medications, allergies, past medical, surgical, social and family histories were obtained and reviewed as appropriate. This lady came in because of one week of congestion with cough and phlegm production and si nus pressure pain. She was here October 22 and diagnosed with sinusitis. She was treated w ith Augmentin and got better but then one week ago symptoms returned. She says it's hard to rest and she is just not feeling very good. She has no vomiting or sore throat or earache or other complaint. I reviewed her past history and meds. Review of Systems Constitutional: Negative. HENT: Positive for congestion and sinus pressure. Respiratory: Positive for cough. Cardiovascular: Negative. Gastrointestinal: Negative. Objective: Physical Exam Constitutional: She is oriented to person, place, and time. She appears well-developed and well-nourished. No distress. HENT: Head: Normocephalic. Mouth/Throat: Oropharynx is clear and moist. Mild nasal congestion. Moderate tenderness with pressure over the maxillary sinuses. Eyes: Conjunctivae are normal. Pupils are equal, round, and reactive to light. Neck: Normal range of motion. Cardiovascular: Normal rate, regular rhythm and normal heart sounds. Pulmonary/Chest: Effort normal and breath sounds normal. Occasional congested cough Musculoskeletal: Normal gait and balance Neurological: She is alert and oriented to person, place, and time. Vitals reviewed. Assessment: 1. Maxillary sinusitis, unspecified chronicity Plan: Please see the AVS for the plan unless outlined elsewhere. This time for the sinusitis I will give her something that we'll cover atypical bacteria an d order clarithromycin 500 mg 1 by mouth twice a day #20. Rest and push fluids. Recheck as needed. She had no questions. documented in this e ncounter Plan of Treatment Not on filedocumented as of this encounter Visit Diagnoses + + | Diagnosis | + + | Maxillary sinusitis, unspecified chronicity - Primary | + + documented in this encounter
--- OUTSIDE RECORDS SUMMARY | ~2020-05-16 | XMS | Encounter Summary ---
Demographics + + + | Address | [address] | | | [place] [address] | + + + | Home Phone | | + + + | Preferred Language | Unknown | + + + | Marital Status | Single | + + + | Cheondoism Affiliation | 1013 | + + + | Race | Unknown | + + + | Ethnic Group | Unknown | + + + Author + + + | Author | [facility] | | | and [place] | + + + | Organization | [facility] | | | [...] Team Providers + +------+ + | Care Clerical Support Specialist Name | Role | Phone | + +------+ + PCP | Unavailable | + +------+ + Encounter Details +--------+ + + + + | Date | Type | Department | Care Team | Description | +--------+ + + + + | 03/17/ | Hospital | [facility] | | | | 1998 | Encounter | MED CTR XRAY [address] | | | | | [place] | | | | | | [place] [address] | | | | | | [phone] | | | +--------+ + + + [...]
--- OUTSIDE RECORDS SUMMARY | ~2020-05-16 | XMS | Encounter Summary ---
Demographics + + + | Address | [address] | | | [place] [address] | + + + | Home Phone | | + + + | Preferred Language | Unknown | + + + | Marital Status | Single | + + + | Orthodox Affiliation | 1013 | + + + | Race | Unknown | + + + | Ethnic Group | Unknown | + + + Author + + + | Author | [facility] | | | and [place] | + + + | Organization | [facility] | | | [...] Providers + +------+ + | Care Patient Clerical Assistant Name | Role | Phone | + +------+ + | No, Physician | PCP | Unavailable | + +------+ + Reason for Visit + +--------+ + | Reason | Onset | Comments | | | Date | | + +--------+ + | Referral (Follow up) | 03/10/ | | | | 2016 | | + +--------+ + Encounter Details +--------+ + + + + | Date | Type | Department | Care Team | Description | +--------+ + + + + | 03/10/ | Telephone | [facility] | Isamar Marley, | Referral (Follow up) | | 2016 | | CARE [address] | Need updated | | | | | [place] | address | | | | | [address] | | | | | | [phone] | | | +--------+ + + + [...] this encounter Miscellaneous Notes Telephone Encounter - Bridgett Galdamez Cert MA - 03/10/2017 11:58 AM PDTCALLED PT AND NOTIFIE D HER OF FACILITY THAT SHE IS BEING REFERRED TO AND SHE WAS OK WITH THAT AND GIVEN THE INFOR MATION FOR THAT. PT WAS NOTIFIED THAT THAT OFFICE SHOULD BE CALLING SOMETIME THIS WEEK AND I F NOT SHE MAY THEM. Telephone Encounter - Bridgett Galdamez Cert MA - 03/10/2017 11:[address] SUSAN MARIE TAKES PT INSURANCE. [employer] in [place], [place] Address: [address] [place] [address] [address], [place] [address] documented in this encounter Plan of Treatment Not on filedocumented as of this encounter Visit Diagnoses Not on filedocumented in this encounter"
--- OUTSIDE RECORDS SUMMARY | ~2020-05-16 | XMS | Encounter Summary ---
Demographics + + + | Address | [address] | | | [place] [address] | + + + | Home Phone | | + + + | Preferred Language | Unknown | + + + | Marital Status | Single | + + + | Religion Affiliation | 1013 | + + + | Race | Unknown | + + + | Ethnic Group | Unknown | + + + Author + + + | Author | [facility] | | | and [place] | + + + | Organization | [facility] | | [...] Team Providers + +------+ + | Care Set Staff Fitter Name | Role | Phone | + +------+ + | No, Physician | PCP | Unavailable | + +------+ + Reason for Visit +---------+ + | Reason | Comments | +---------+ + | Abscess | possible cyst or ingrown hair on left buttock, red RM 3 | +---------+ + Encounter Details +--------+---------+ + + + | Date | Type | Department | Care Team | Description | +--------+---------+ + + + | 05/30/ | Office | [facility] | Meng Talley | Cutaneous abscess of | | 2016 | Visit | CARE [address] | [address] | buttock, left | | | | [place] | [place] | (Primary Dx) | | | | [address] | [address] | | | | | [phone] | | | +--------+---------+ + + + Social History + +-------+ [...] + + + | Blood Pressure | 108/80 | 05/30/2016 8:14 AM | | | | | PDT | | + + + + + | Pulse | 89 | 05/30/2016 8:14 AM | | | | | PDT | | + + + + + | Temperature | 37.2 C (98.9 F) | 05/30/2016 8:14 AM | | | | | PDT | | + + + + + | Respiratory Rate | 18 | 05/30/2016 8:14 AM | | | | | PDT | | + + + + + | Oxygen Saturation | 96% | 05/30/2016 8:14 AM | | | | | PDT | | + + + + + | Inhaled Oxygen | - | - | | | Concentration | | | | + + + + + | Weight | 92.1 kg (203 lb) | 05/30/2016 8:14 AM | | | | | PDT | | + + + + + | Height | 162.6 cm (5' 4") | 05/30/2016 8:14 AM | | | | | PDT | | + + + + + | Body Mass Index | 34.84 | 05/30/2016 8:14 AM | | | | | PDT | | + + + + + documented in this encounter Patient Instructions Patient Instructions Meng Talley MD - 05/30/2016 8:31 AM PDTTake antibiotic twic e daily with a tall glass of water until gone. Keep your wound clean and dressed. Soak bottom in warm epsom salt water twice daily until resolved. Clean wound with soap and water, pat dry and change dressing daily. Use Tylenol, Advil or Aleve with food as needed for discomfort. Return sooner if any signs of increased infection develop such as more redness, pain, incre ased warmth or swelling or should you have any other concerns. Abscess (Incision & Drainage) An abscess (sometimes called a boil ) occurs when bacteria get trapped under the skin and begin to grow. Pus forms inside the abscess as the body responds to the bacteria. An abs cess can occur with an insect bite, ingrown hair, blocked oil gland, pimple, cyst, or punctu re wound. Treatment of your abscess has required an incision to drain the pus. If the abscess pocket was large, a gauze packing may have been inserted. This will need to be removed and possibly replaced on your next visit. Antibiotics are not needed in the treatment of a simple absces s, unless the infection is spreading into the skin around the wound (cellulitis). Healing of the wound will take about 1 to 2 weeks, depending on the size of the abscess. He althy tissue will grow from the bottom and sides of the opening until it seals over. Home care The following home care guidelines can help your wound heal: The wound may drain for the first 2 days. Cover the wound with a clean dry dressing. If the dressing becomes soaked with blood or pus, change it. If a gauze packing was placed inside the abscess cavity, you may be told to remove it yo urself. You may do this in the shower. Once the packing is removed, you should wash the area in the shower or bath 3 to 4 times a day, until the skin opening has closed. Make sure you wash your hands after changing the packing or cleaning the wound. If you were prescribed antibiotics, take them as directed until they are all gone. You may use acetaminophen or ibuprofen to control pain, unless another pain medicine was prescribed.If you have liver disease or ever had a stomach ulcer, talk with your doctor b efore using these medicines. Follow-up care Follow up with yourdoctor as advised by our staff. If a gauze packing was inserted in you r wound, it should be removed in 1 to 2 days. Check your wound every day for the signs of wo rsening infection listed below. When to seek medical advice Call your healthcare provider right away if any of the following occur: Increasing redness or swelling Red streaks in the skin leading away from the wound Increasing local pain or swelling Continued pus draining from the wound 2 days after treatment Fever of 100.4F (38C) or higher, or as directed by your healthcare provider Boil returns when you are at home [id number] [employer]. [address] [place] [address], [place] [address]. All righ ts reserved. This information is not intended as a substitute for professional medical care. Always follow your healthcare professional's instructions. documented in this encounter Progress Notes Lilliana Gaspar RN - 05/30/2016 8:55 AM PDTVerified name and date of of patient befor e provider orders were carried out. After IND on left buttock; covered area with 4 4x4 gauze and secured with paper tape. Patie nt tolerated well. Lilliana Rod RN Meng Hong M D - 05/30/2016 8:19 AM PDT Subjective: Chief Complaint: Patricio Grier is a 55 y.o. female who comes in complaining of painful lump on the left buttocks for the last 4 days. No known injury or inciting event. Pt. has treated it with antibiotic o int. without significant benefit. No fevers, chills or other systemic symptoms. Cherrie has n ot had this previously. No DM or hx of MRSA. No other complaints. Patient's medications, allergies, past medical, surgical, social and family histories were reviewed and updated as appropriate. Objective: BP 108/80 mmHg | Pulse 89 | Temp(Src) 37.2 C (98.9 F) (Temporal) | Resp 18 | Ht 1.626 m (5' 4") | Wt 92.08 kg (203 lb) | BMI 34.83 kg/m2 | SpO2 96% General Appearance: Alert, cooperative, no distress, appears stated age. Skin: With 2 cm abscess on inner left buttocks with 12 cm surrounding erythema, edema and t enderness. Skin is otherwise normal. No adenopathy. Procedure: Skin was cleansed with betadine scrub and alcohol and locally anesthetized with lidocaine 1% with Epinephrine. Lesion incised and drained of 1-2 cc of marie, foul-smelling pus. Culture was obtained. Q-tip was used to probe and break up any loculations within the abscess cavity. No gauze wick was placed. Sterile dressing applied. Assessment and Plans: 1. Cutaneous abscess of buttock, left sulfamethoxazole-trimethoprim (BACTRIM DS) 800-160 m g per tablet Culture, Wound, Smear Small, cutaneous abscess on the left buttocks with surrounding cellulitis. She was given t he following instructions. Plan: Take Bactrim DS twice daily with a tall glass of water until gone. Keep your wound clean and dressed. Soak bottom in warm epsom salt water twice daily until resolved. Clean wound with soap and water, pat dry and change dressing daily. Use Tylenol, Advil or Aleve with food as needed for discomfort. Return sooner if any signs of increased infection develop such as more redness, pain, incre ased warmth or swelling or should you have any other concerns. Meng Nelson documented in th is encounter Plan of Treatment Not on filedocumented as of this encounter Procedures + +--------+ + + + | Procedure Name | Priori | Date/Time | Associated Diagnosis | Comments | | | ty | | | | + +--------+ + + + | CULTURE, WOUND, | Routin | 05/30/2016 | Cutaneous abscess | Results for this | | SMEAR | e | 8:46 AM | of buttock, left | procedure are in the | | | | PDT | | results section. | + +--------+ + + + documented in this encounter Results Culture, Wound, Smear (05/30/2016 8:46 AM PDT) + + + + + + | Component | Value | Ref Range | Performed | Pathologist | | | | | At | Signature | + + + + + + | Culture | 4+ Staphylococcus aureus | | [facility] | | | [facility] | | | | | | [facility] | | + + + + + + | Gram Stain | No white blood cells | | [facility] | | | Result | (PMNs) seen | | [facility] | | | | | [facility] - | | | | | | [facility] | | + + + + + + | Gram Stain | No organisms seen | | [facility] | | | Result | | | [facility] | | | | [facility] - | | | | | | [facility]ORY | | + + + + + + + + | Specimen | + + | Wound - Pus specimen | | (specimen) | + + + + +--------+ + | Organism | Antibiotic | Method | Susceptibility | + + +--------+ + | Staphylococcus | Clindamycin | | <=0.25: Sensitive | | aureus | | | | + + +--------+ + | Staphylococcus | Levofloxacin | | 4: Resistant | | aureus | | | | + + +--------+ + | Staphylococcus | Oxacillin | | 0.5: Sensitive | | aureus | | | | + + +--------+ + | Staphylococcus | Penicillin G | | >=0.5: Resistant | | aureus | | | | + + +--------+ + | Staphylococcus | Rifampin | | <=0.5: Sensitive | | aureus | | | | + + +--------+ + | Staphylococcus | Tetracycline | | <=1: Sensitive | | aureus | | | | + + +--------+ + | Staphylococcus | Trimethoprim + | | <=10: Sensitive | | aureus | Sulfamethoxazole | | | + + +--------+ + + + + + + | Performing | Address | City/State/Zipcode | Phone Number | | Organization | | | | + + + + + | [facility] | [address] | [place], [place] | [phone] | | [facility] | | [address] | | | - LABORATORY | | | | + + + + + documented in this encounter Visit Diagnoses + + | Diagnosis | + + | Cutaneous abscess of buttock, left - Primary Cellulitis and abscess of buttock | + + documented in this encounter
--- OUTSIDE RECORDS SUMMARY | ~2020-05-16 | XMS | Encounter Summary ---
Demographics + + + | Address | [address] | | | [place] [address] | + + + | Home Phone | | + + + | Preferred Language | Unknown | + + + | Marital Status | Single | + + + | Temple Affiliation | 1013 | + + + | Race | Unknown | + + + | Ethnic Group | Unknown | + + + Author + + + | Author | [facility] | | | and [place] | + + + | Organization | [facility] | | | [...] Team Providers + +------+ + | Care Supervising Bailiff Name | Role | Phone | + +------+ + | James Farmer MD | PCP | | + +------+ + Reason for Visit + + + | Reason | Comments | + + + | Follow-up | | + + + | Nausea | | + + + | Bloated | | + + + Evaluate & Treat (Urgent) + +--------+ + + + + | Status | Reason | Specialty | Diagnoses / | Referred By | Referred To | | | | | Procedures | Contact | Contact | + +--------+ + + + + | Authorized | | Gastroenterol | Diagnoses | [place], | [place]iel[place], | | | | ogy | Severe | Suleiman Wiseman MD | Nishant Beckwith, | | | | | esophageal | [address] | [address] | | | | dysplasia | [address] [place] | [address] | | | | | | [place], [place] | [place], | | | | | | [address] | [place] [address] | | | | | | Phone: | Phone: | | | | | | [phone] | [phone] | | | | | | Fax: | Fax: | | | | | | [phone] | [phone] | + +--------+ + + + + Encounter Details +--------+ + + + + | Date | Type | Department | Care Team | Description | +--------+ + + + + | 04/09/ | Virtual | [facility] | Nishant Arceo | Esophageal | | 2019 | Office | GASTROENTEROLOGY | MD [address] | dysmotility (Primary | | | Visit | [address] | [address] [place] | Dx) | | | | [address] | [place] [address] | | | | | [address] | [phone] | | | | | [phone] | | | +--------+ + + + [...] documented as of this encounter Progress Notes Nishant Arceo MD - 04/09/2020 3:00 PM PDT Gastroenterology Clinic Progress Note Date of Office Visit: 04/09/20 Primary Care Physician: James Farmer MD This exam was initially conducted via telephone Video start time 316 Video end time 332 Total time (in minutes) including non [id number] time (reviewing records, documentation, etc..) 25 You have chosen to receive care through the use of telemedicine. Telemedicine enables [facility] care providers at different locations to provide safe, effective and convenient care throu gh the use of technology. As with any health care service, there are risks associated with t he use of telemedicine, including equipment failure, poor image resolution and information s ecurity issues. Do you understand the risks and benefits of telemedicine as I have explained them to you? " Yes" Have your questions regarding telemedicine been answered? "Yes" Participant is currently at home Do you consent to the use of telemedicine in your medical care today? Yes. Last question, I need to confirm where are you physically located right now? Answer: Patient confirms they are located in a state where Nishant Michele MD am lice nsed. Chief Complaint Follow-up; Nausea; and Bloated History of Present Illness Cherrie Quijano is a 59 y.o. female with esophageal dysmotility found to have E GJ outf low obstruction on manometry, following up after EGD with Botox injection on 04/01/2020. She has been on diltiazem 60 mg 4 times daily, and was prescribed hyoscyamine after her EGD . Interval history: She was in the ER on 04/05/2020 with complaints of swelling related to taking the hyoscyamin e. She was treated for a allergic reaction with prednisone and famotidine. She feels like she is afraid to swallow anything. She has a hard time sleeping, focusing. She has a hard time burping. She says she is in "panic mode". She keeps saying that she can't swallow, so she has the urge to vomit. She says that everything seems "fuzzy". She is taking diltiazem for her esophagus. It doesn't seem to help. She has been on this s castillo October 2019. She doesn't feel like the botox helped at all. Has never tried a TCA. Review of Systems A 10 point review of systems was conducted with the patient, pertinent positives and negati ves per HPI. 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 GI MANOMETRY 02/05/2020 UPPER GASTROINTESTINAL ENDOSCOPY N/A 11/30/2017 Procedure: EGD; Surgeon: Loi Hui MD; Location: [facility] UPPER GASTROINTESTINAL ENDOSCOPY N/A 04/05/2019 Procedure: EGD; Surgeon: Loi Hui MD; Location: [facility] UPPER GASTROINTESTINAL ENDOSCOPY N/A 09/06/2019 Procedure: EGD; Surgeon: Rodriguez Gómez MD; Location: [facility] UPPER GASTROINTESTINAL ENDOSCOPY N/A 02/20/2020 Procedure: EGD; Surgeon: Nishant Arceo MD; Location: [facility] UPPER GASTROINTESTINAL ENDOSCOPY N/A 04/01/2020 Procedure: EGD W/ DILATATION- Botox; Surgeon: Nishant Arceo MD; Location: [facility] VEIN SURGERY Allergies Allergies Allergen Reactions Levsin (Hyoscyamine) Swelling Intolerance No active intolerances/contraindications Medications Current Outpatient Medications on File Prior to Visit Medication Sig Dispense Refill ascorbic acid (VITAMIN [...] BY MOUTH FOUR TIMES DAILY 120 tablet 5 diphenhydrAMINE (BENADRYL) 25 mg tablet Take 1 tablet by mouth every 8 hours as needed for Itching for up to 5 days. 15 tablet 0 diphenhydrAMINE-visc zxnuljmxi-exxszupx-vxzpoposv-simethicone (MIRACLE MOUTHWASH) suspe nsion Take 5 mLs by mouth every 6 hours as needed for Other (swish and swallow). (RECIPE = 1 :1:1 mixture of Maalox, diphenhydrAMINE, viscous lidocaine) 240 mL 2 EPINEPHrine auto-injector 0.3 mg/0.3 mL injection Inject 0.3 mLs into the muscle as nee ded for Anaphylaxis. 1 each 0 famotidine (PEPCID) 20 mg tablet Take 1 tablet by mouth 2 times daily for 5 days. 10 ta blet 0 ibuprofen (ADVIL, MOTRIN) 200 mg tablet Take 400 mg by mouth every 6 hours as needed fo r Pain. Lidocaine HCl (MAGIC + NYSTATIN MOUTHWASH) Take 10 mLs by mouth every 4 hours. 240 mL 0 Multiple Vitamin (MULTI-VITAMIN PO) Take 1 tablet by mouth Daily. non-formulary medication Take 2 tablets by mouth Daily. [employer] supplement pantoprazole (PROTONIX) 40 mg tablet Take 1 tablet by mouth every morning (before break fast). 30 tablet 8 predniSONE (DELTASONE) 20 mg tablet Take 1 tablet by mouth Daily for 4 days. 4 tablet 0 UNABLE TO FIND Take 1-2 capsules by mouth Daily. Focus Factor No current facility-administered medications on file prior to visit. Labs Lab Results Component Value Date WBC 6.4 04/05/2020 HCT 36.3 04/05/2020 MCV 84.0 04/05/2020 PLT 243 04/05/2020 Chemistry Component Value Date/Time NA 136 04/05/2020 0521 K 3.7 04/05/2020 0521 CL 101 04/05/2020 0521 CO2 28 04/05/2020 0521 GLU 115 (H) 04/05/2020 0521 BUN 11 04/05/2020 0521 CREA 0.82 04/05/2020 0521 ANIONGAP 7 04/05/2020 0521 OSMOLALITY 238 (L) 07/21/2017 0327 Component Value Date/Time CALCIUM 9.8 04/05/2020 0521 ALKPHOS 113 04/05/2020 0521 AST 21 04/05/2020 0521 ALT 17 04/05/2020 0521 TOTALPROTEIN 7.3 04/05/2020 0521 ALBUMIN 4.6 04/05/2020 0521 BILITOT 0.5 04/05/2020 0521 Imaging CLINICAL INFORMATION: Difficulty swallowing COMPARISON: 04/27/2017 and 09/22/2019 TECHNIQUE: After obtaining a supervisor livestock yard image, the patient consumed effervescent crystals followed by preparations of thick and thin barium. Multiple spot images of the esophagus were obtained during the exam. FINDINGS: Swallowing: No aspiration or laryngeal penetration. Esophagus: Moderate tertiary contractions noted throughout the esophagus (most notable mid to distal) with mild to and fro motion and stasis of the ingested contrast. No stricture, ulcer or mass. Probable small sliding hiatal hernia. Gastroesophageal reflux: None identified. IMPRESSION: Moderate esophageal dysphagia with persistent tertiary contractions at the mid to distal esophagus. Probable small sliding hiatal hernia. Dictated and Signed by: Nishant Camarena MD Electronically signed: 11/16/2019 3:50 PM Assessment and Plan 59-year-old woman with chronic esophageal dysphasia due to dysmotility, found to have esoph agogastric junction outflow tract obstruction on manometry. Was having persistent dysphagia despite diltiazem 60 mg 4 times daily. Had no response to esophageal dilation to 18 mm. Therefore had Botox injection to LES on 04/01/2020. Has not h ad any improvement in fact probably feels worse since that injection. Also started hyoscyam ine and it seems she had a allergic reaction to it for which she was treated with prednisone in the ER. She now has had what sounds like significant agitation and anxiety associated w ith the prednisone. Overall this is a challenging case. Her symptoms are refractory to endoscopic and medical therapy. I have not yet tried her on a TCA so recommended trying imipramine 25 mg p.o. phuc anderson. Discussed risks and benefits with her over the phone. She is interested in trying it. Taper off diltiazem - she has been taking it 4 times a day. Take twice daily tomorrow. Then once daily the next daily the next day, then stop. Awaiting referral to tertiary center. I asked her to also repeat her esophagram with radiopaque tablet to see if there was any in terval improvement. I suspect there is a strong psychogenic component to her symptoms, hopefully some of this c an be addressed by the imipramine as well. ICD-10-CM ICD-9-CM 1. Esophageal dysmotility K22.4 530.5 imipramine (TOFRANIL) 25 mg tablet FL Esophagram Complete Follow up: No follow-ups on file. Portions of this chart may have been created with [employer] voice recognition software. Occasi onal wrong-word or sound-alike substitutions may have occurred due to the inherent shannon itations of voice recognition software. Please read the chart carefully and recognize, using context, where these substitutions have occurred documented in this encounter Plan of Treatment + +---------+--------+ + + | Name | Type | Priori | Associated Diagnoses | Order Schedule | | | | ty | | | + +---------+--------+ + + | FL Esophagram | Imaging | Routin | Esophageal | Expected: | | Complete | | e | dysmotility | 04/09/2020, Expires: | | | | | | 04/09/2021 | + +---------+--------+ + + documented as of this encounter Visit Diagnoses + + | Diagnosis | + + | Esophageal dysmotility - Primary Dyskinesia of esophagus | + + documented in this encounter
--- OUTSIDE RECORDS SUMMARY | ~2020-05-16 | XMS | Encounter Summary ---
Demographics + + + | Address | [address] | | | [place] [address] | + + + | Home Phone | | + + + | Preferred Language | Unknown | + + + | Marital Status | Single | + + + | Judaism Affiliation | 1013 | + + + | Race | Unknown | + + + | Ethnic Group | Unknown | + + + Author + + + | Author | [facility] | | | and [place] | + + + | Organization | [facility] | | | [...] Team Providers + +------+ + | Care Pulley Worker Name | Role | Phone | + +------+ + | James Farmer MD | PCP | | + +------+ + Reason for Visit + + + | Reason | Comments | + + + | Swallowing | | | Difficulty | | + + + Auth/Cert +--------+--------+ + + + + | [...] | +--------+ + + + + | 09/05/ | Emergency | [facility]MA[facility] SOARES | James Cornejo, | Dehydration, severe | | 2019 - | | [facility] | [address] | (Primary Dx); | | | | [address] [place] | [place], [place] | Esophageal | | 09/06/ | | [place] [address] | [id number] | stricture; Unable to | | 2019 | | [phone] | | eat; Esophageal | | | | | Annette Sanders | dysphagia; | | | | | [place] [address] | Oropharyngeal | | | | | [address] [place] | dysphagia; | | | | | [place] [address] | Gastroesophageal | | | | | [phone] | reflux disease, | | | | | | esophagitis presence | | | | | | not specified; | | | | | | Pharyngoesophageal | | | | | | dysphagia; | | | | | | Gastroesophageal | | | | | | reflux disease with | | | | | | esophagitis; | | | | | | Dysphagia, | | | | | | unspecified type; | | | | | | Gastritis, presence | | | | | | of bleeding | | | | | | unspecified, | | | | | | unspecified | | | | | | chronicity, | | | | | | unspecified | | | | | | gastritis type | +--------+ + + + + Social [...] + + + | Blood Pressure | 120/74 | 09/06/2019 3:31 PM | | | | | PDT | | + + + + + | Pulse | 74 | 09/06/2019 3:31 PM | | | | | PDT | | + + + + + | Temperature | 37.1 C (98.7 F) | 09/06/2019 3:31 PM | | | | | PDT | | + + + + + | Respiratory Rate | 18 | 09/06/2019 3:31 PM | | | | | PDT | | + + + + + | Oxygen Saturation | 97% | 09/06/2019 3:31 PM | | | | | PDT | | + + + + + | Inhaled Oxygen | - | - | | | Concentration | | | | + + + + + | Weight | 83.5 kg (184 lb 1.4 | 09/06/2019 6:00 AM | | | | oz) | PDT | | + + + + + | Height | 160 cm (5' 3") | 09/05/2019 8:02 PM | | | | | PDT | | + + + + + | Body Mass Index | 32.61 | 09/05/2019 8:02 PM | | | | | PDT | | + + + + + documented in this encounter Discharge Summaries Demetri Apple MD - 09/06/2019 4:12 PM PDTFormatting of this note might be different f rom the original. DISCHARGE SUMMARY Patient Name: Cherrie Qiujano : 1960 Date of Admission: 09/05/2019 Date of Discharge: 09/07/19 Admitting Physician: Annette Sanders MD Discharging Physician: Demetri Apple MD Primary Care Provider: James Farmer MD Discharge Diagnoses: Principal Problem: Dysphagia Active Problems: GERD (gastroesophageal reflux disease) Resolved Problems: * No resolved hospital problems. * Patient Active Problem List Diagnosis Depression with anxiety Obesity, Class I, BMI 30-34.9 PERIMENOPAUSAL SYNDROME FH DEPRESSION FH DIABETES FH STROKE Reflux esophagitis Conversion disorder Dysphagia Hiatal hernia with GERD Special screening for malignant neoplasms, colon Hyponatremia Seizure Severe protein-calorie malnutrition Thrombocytopenia Esophageal dysmotility Globus hystericus Benzodiazepine dependence GERD (gastroesophageal reflux disease) Pharyngoesophageal dysphagia Chronic bilateral low back pain without sciatica Impaired functional mobility, balance, gait, and endurance Gait instability Consultants: Dr. Gómez of [facility] speech therapy Procedures: 09/06 EGD: Findings: The upper third of the esophagus and middle third of the esophagus were normal. Biopsies were taken with a cold forceps for histology. Verification of patient identification for the specimen was done. Estimated blood loss was minimal. The Z-line was irregular and was found 35 cm from the incisors. There were esophageal mucosal changes suggestive of short-segment Mares's esophagus present in the distal esophagus. The maximum longitudinal extent of these mucosal changes was 2 cm in length. Imaging was performed using the [facility] Endoscopy (FICE) system to visualize the esophageal mucosa. Mucosa was biopsied with a cold forceps for histology. One specimen bottle was sent to pathology. Verification of patient identification for the specimen was done. Estimated blood loss was minimal. A 4 cm hiatal hernia was present. A patulous lower esophageal sphincter was found. Localized mildly erythematous mucosa without bleeding was found in the gastric antrum. Biopsies were taken with a cold forceps for Helicobacter pylori testing using CLOtest. Verification of patient identification for the specimen was done. Estimated blood loss was minimal. The duodenal bulb, first portion of the duodenum, second portion of the duodenum, area of the papilla and third portion of the duodenum were normal. The retroflexed view confirmed previous findings, Impression: - Normal upper third of esophagus and middle third of esophagus. Biopsied. - Z-line irregular, 35 cm from the incisors. - Esophageal mucosal changes suggestive of short-segment Mares's esophagus. Biopsied. - 4 cm hiatal hernia. - Patulous lower esophageal sphincter. - Erythematous mucosa in the antrum. Biopsied. - Normal duodenal bulb, first portion of the duodenum, second portion of the duodenum, area of the papilla and third portion of the duodenum. - The retroflexed view confirmed previous findings, 09/07 Speech/swallow consult: Pt seen for initial swallow assessment s/p observation status following ER visit for acute dysphagia. Pt had EGD today which showed possible Mares's esophagus and was empirically di lated. Prior esophagram in 2017 showed dysmotility, with dilation and small hiatal hernia. H/o of esophageal dilation but reportedly improved dysphagia after dilation. Pt reports that for past 2 weeks she has consumed puree/ liquid diet and has lost "20 lbs" d/t difficulty e ating. She exhibited some anxiety regarding swallowing certain food textures. She reports th at even liquids/ puree would come back up passively, also reported some phlegm, and use of l iquid wash to propel food down. Bedside swallow assessment completed- Pt able to feed self and only exhibited mild s/sx of dysphagia at very end of trials with mild throat clearing. See below for details of exam. Do uble swallow strategy worked continually to clear sensation of pharyngeal residue. CLINICAL SERVICES SPECIALIST recom mends return to soft solids and per GI MD to mechanical soft diet and thin liquids. CLINICAL SERVICES SPECIALIST disc ussed reflux precautions with regard to timing and posture eating and may also benefit from OP MBS to rule out pharyngeal dysphagia as component to current deficits. CLINICAL SERVICES SPECIALIST spoke with MD/ RN regarding recommendations. Pt agrees to POC. No results found. Recent Results (from the past 48 hour(s)) CBC with Differential Result Value Ref Range WBC 6.7 4.0 - 11.0 K/uL RBC 5.34 (H) 3.70 - 5.20 M/uL Hemoglobin 15.0 11.5 - 16.0 g/dL Hematocrit 44.9 34.0 - 47.0 % MCV 84.1 83.0 - 101.0 fL MCH 28.1 28.0 - 35.0 pg MCHC 33.4 32.0 - 36.0 g/dL RDW-CV 12.9 <15.0 % RDW-SD 39.2 35.1 - 46.3 fL Platelet Count 218 140 - 440 K/uL MPV 10.1 6.5 - 12.4 fL % Neutrophils 66.9 45.0 - 82.0 % % Lymphocytes 25.6 20.0 - 45.0 % % Monocytes 5.2 4.0 - 12.0 % % Eosinophils 0.9 0.0 - 5.0 % % Basophils 1.3 (H) 0.0 - 1.0 % % Immature Granulocytes 0.1 0.0 - 0.4 % Absolute Neutrophils 4.47 1.80 - 8.50 K/uL Absolute Lymphocytes 1.71 0.60 - 3.20 K/uL Absolute Monocytes 0.35 0.00 - 1.00 K/uL Absolute Eosinophils 0.06 0.00 - 0.40 K/uL Absolute Basophils 0.09 0.00 - 0.10 K/uL Absolute Immature Granulocytes 0.01 0.00 - 0.03 K/uL % nRBC 0 0 - 2 per 100 WBCs Absolute nRBC 0.00 0.00 - 0.01 K/uL Comprehensive Metabolic Panel Result Value Ref Range Na 138 136 - 145 mmol/L K 4.1 3.4 - 5.1 mmol/L Cl 101 98 - 107 mmol/L CO2 27 20 - 31 mmol/L Anion Gap 10 3 - 16 mmol/L Glucose 127 (H) 60 - 106 mg/dL BUN 15 9 - 23 mg/dL Creatinine 0.94 0.55 - 1.02 mg/dL eGFR if not >60 >=60 mL/min/1.73m2 Calcium 10.6 (H) 8.7 - 10.4 mg/dL Albumin 5.3 (H) 3.2 - 4.8 g/dL Bilirubin Total 0.7 0.3 - 1.2 mg/dL Total Protein 8.3 (H) 5.7 - 8.2 g/dL AST 26 0 - 34 U/L ALT 27 10 - 49 U/L Alkaline Phosphatase 111 46 - 116 U/L Globulin 3.0 2.1 - 3.8 g/dL Albumin/Globulin Ratio 1.8 0.8 - 1.9 BUN/Creatinine Ratio 16.0 Lipase Result Value Ref Range Lipase 41 12 - 53 U/L Basic Metabolic Panel Result Value Ref Range Na 140 136 - 145 mmol/L K 3.8 3.4 - 5.1 mmol/L Cl 106 98 - 107 mmol/L CO2 26 20 - 31 mmol/L Anion Gap 8 3 - 16 mmol/L Glucose 101 60 - 106 mg/dL BUN 13 9 - 23 mg/dL Creatinine 0.73 0.55 - 1.02 mg/dL eGFR if not >60 >=60 mL/min/1.73m2 Calcium 9.8 8.7 - 10.4 mg/dL BUN/Creatinine Ratio 17.8 Extra Lavender Top Tube Result Value Ref Range Extra Lavender Top Tube Done Reason for Admission: Please refer to the H&P for full details. In short, this is a 58 y.o. female with a histor y of chronic dysphagia, GERD, depression/anxiety who presented with 1.5 weeks of dysphagia t o solids, liquids, and medications. Problem-Oriented Hospital Course: Dysphagia/GERD/Esophagitis/Gastritis - She reports worsening dysphagia to solids/liquids/medications, +regurgitation, minimal PO intake, weight loss ~ 8 pounds recorded - EGD in 11/[address] Hui which showed small hiatal hernia, low grade esophageal narrowi ng and mild Schatzki ring (dilated) and erythematous gastric mucosa (gastric biopsy showed m ild chronic gastritis, GE junction biopsy showed intestinal metaplasia, no dysplasia). EGD i n 03/[address] Hui showed Grade D reflux esophagitis (unable to take biopsies due to resp iratory distress) - Dr. Gómez performed another EGD 09/06, which showed likely Mares's esophagus, biopsies taken and h pylori test pending - Speech therapy consulted, she was able to swallow safely, recommended dysphagia mechanica l diet with thin liquids for now, barium swallow test as outpatient, which was ordered - Cont pantoprazole - F/u with GI as outpatient in ~ 2 weeks Disposition: Home Discharge Condition: Stable Lungs clear Heart RRR Abd soft, NT, bowel sounds present Ext wwp, no edema Follow-up Information James Farmer MD In 2 weeks. Specialty: Internal Medicine Contact information: [address] [facility] [address] Rodriguez Gómez MD In 2 weeks. Specialty: Gastroenterology Contact information: [address], [place] [address] [facility] [address] Discharge Medications Unchanged Medications Details 5-HTP PO Take 1 capsule by mouth nightly. ascorbic acid 500 mg chewable tablet Take 500 mg by mouth Daily. aka: VITAMIN C B-12 PO Take 1 tablet by mouth Daily. bismuth subsalicylate 262 mg chewable tablet Take 524 mg by mouth Daily as needed. aka: PEPTO BISMOL Black Cohosh 540 MG Caps Take 1 capsule by mouth Daily. diphenhydrAMINE 25 mg tablet Take 25 mg by mouth nightly as needed for Itching. aka: BENADRYL ECHINACEA PO Take 1 capsule by mouth Daily. GINKOBA PO Take 1 capsule by mouth Daily. isosorbide dinitrate 10 mg tablet TAKE 1 TABLET BY MOUTH 3 TIMES DAILY aka: ISORDIL MULTI-VITAMIN PO Take 1 tablet by mouth Daily. pantoprazole 40 mg tablet Take 1 tablet by mouth every morning (before breakfast). aka: PROTONIX ST FOUNTAIN WORT PO Take 1 capsule by mouth 3 times daily. TYLENOL 325 mg tablet Generic drug: acetaminophen Take 650 mg by mouth every 4 hours as needed for Pain. UNABLE TO FIND Take 1-2 capsules by mouth Daily. Focus Factor Studies With Pending Results: None Less than 30 minutes were spent on discharge and coordination of post-hospital care. Electronically signed by: Demetri Apple MD, 09/07/2019 7:32 [facility] documented in this encounter Discharge Instructions Instructions Delma Burnett RN - 09/06/2019Formatting of this note might be different fr om the original. Upper GI Endoscopy During endoscopy, a long, flexible tube is used to view the inside of your upper GI tract. Upper GI endoscopy allows your healthcare provider to look directly into the beginning of y our gastrointestinal (GI) tract. The esophagus, stomach, and duodenum (the first part of the small intestine) make up the upper GI tract. Before the exam Follow these and any other instructions you are given before your endoscopy. If you don t follow the healthcare provider s instructions carefully, the test may need to be canceled or done over: Don't eat or drink anything after midnight the night before your exam. If your exam is i n the afternoon, drink only clear liquids in the morning. Don't eat or drink anything for8 hours before the exam. In some cases, you may be able to take medicines with sips of water until 2 hours before the procedure. Speak with your healthcare provider about this. Bring your X-rays and any other test results you have. Because you will be sedated, arrange for an adult to drive you home after the exam. Tell your healthcare provider before the exam if you are taking any medicines or have an y medical problems. The procedure Here is what to expect: You will lie on the endoscopy table. Usually patients lie on the left side. You will be monitored and given oxygen. Your throat may be numbed with a spray or gargle. You are given medicine through an intr avenous (IV) line that will help you relax and remain comfortable. You may be awake or aslee p during the procedure. The healthcare provider will put the endoscope in your mouth and down your esophagus.I tis thinner than most pieces of food that you swallow. It will not affect your breathing. The medicine helps keep you from gagging. Air is put into your GI tract to expand it. It can make you burp. During the procedure, the healthcare provider can take biopsies (tissue samples), remove abnormalities, such as polyps, or treat abnormalities through a variety of devices placed t hrough the endoscope. You will not feel this. The endoscope carries images of your upper GI tract to a video screen. If you are awake, you may be able to look at the images. After the procedure is done, you will rest for a time. An adult must drive you home. When to call your healthcare provider Contact your healthcare provider if you have: Black or tarry stools, or blood in your stool Fever Pain in your belly that does not go away Nausea and vomiting, or vomiting blood Date Last Reviewed: 05/22/[id number] [employer]. [address] [place] [address]. All righ ts reserved. This information is not intended as a substitute for professional medical care. Always follow your healthcare professional's instructions. Recovery After Procedural Sedation (Adult) You have been given medicine by vein to make you sleep during your procedure. This may have included both a pain medicine and sleeping medicine. Most of the effects have worn off. But you may still have some drowsiness for the next 6 to 8 hours. Home care Follow these guidelines when you get home: For the next 8 hours, you should be watched by a responsible adult. This person should m alexx sure your condition is not getting worse. Don't drink any alcoholfor the next [address], operate dangerous machinery,make important business or personal decisions , or sign legal documentsduring the next 24 hours. Note: Your healthcare provider may tell you not to take any medicine by mouth for pain or s leep in the next 4 hours. These medicines may react with the medicines you were given in the hospital. This could cause a much stronger response than usual. Follow-up care Follow up with your healthcare provider if you are not alert and back to your usual level o f activity within 12 hours. When to seek medical advice Call your healthcare provider right away if any of these occur: Drowsiness gets worse Weakness or dizziness gets worse Repeated vomiting You can't be awakened Date Last Reviewed: 09/08/[id number] [employer]. [address] [place] [address], [place] [address]. All righ ts reserved. This information is [...] +---------+ + + | isosorbide | TAKE 1 TABLET BY | 90 | 11 | 08/28/20 | | | dinitrate (ISORDIL) | MOUTH 3 TIMES DAILY | tablet | | 19 | 9 | | 10 mg tablet | | | | | | + + + +---------+ + + | pantoprazole | Take 1 tablet by | 30 | 4 | 08/08/20 | | | (PROTONIX) 40 mg | mouth every morning | tablet | | 19 | 0 | | tablet | (before breakfast). | | | | | + + + +---------+ + + | ST ESSIE REDDY PO | Take 1 capsule by | | 0 | | | | | mouth 3 times daily. | | | | 9 | + + + +---------+ + + documented as of this encounter Progress Notes Karolina Toro RN - 09/06/2019 5:11 PM PDTIV removed no redness noted. Discharge instructi ons and follow up care reviewed with patient and significant other, all questions answered a ll belonging and paper work sent with patient. Escorted out with staff assist to personal wily anton. documented in thi s encounter H&P Notes Rodriguez Gómez MD - 09/06/2019 10:18 AM PDTThe patient has no questions, consent form is s igned we'll proceed with upper endoscopy possible biopsy and dilatation odriguez Gómez MD - 09/06/2019 7:58 AM PDT Gastroenterology Consultation: [facility] 09/06/2019 Cherrie Alexisscarlet Quijano 58 y.o. [id number] History of present illness: asked to consult on patient for dysphagia [facility] 09/05/2019 Anxious talkative female who's had intermittent dysphagia for multiple years. Her last end oscopy in March of this year was complicated by what sounds like hypoxia. No dilatation was d one at that time. Small hiatal hernia was noted. There was grade D esophagitis Upper endos copy November 2017 showed a hiatal hernia with a nonobstructing Schatzki's ring. Esophageal dilatation helped with the patient's swallowing. Patient complains of difficulty swallowing pills and the oral pharyngeal area and food including puddings and water getting stuck in t he midesophagus. She will eat and within 2-3 minutes and spontaneous regurgitation. She lao s had no weight loss associated with the same denies hematemesis or melena. Upper GI x-ray done 2016 showed a small sliding hiatal hernia with spontaneous reflux and there was poor esophageal contractility with no fixed stricture. The patient on a outpatient basis has bee n taking PPI therapy twice a day and Carafate. She could not tolerate the latter is explain ed for nausea. Patient denies any melena complains of retrosternal burning and some nausea. The patient does not follow an anti-reflex regimen. She does state she sleeps on 2 pillow s at night. Denies supra esophageal manifestations of reflux such as aspiration voice canales e etc. Past medical history: Past Medical History: Diagnosis Date Depression with anxiety Dysphagia 06/16/2017 GERD (gastroesophageal reflux disease) Seizure (HCC) Wears partial dentures upper Past surgical history: Past Surgical History: Procedure Laterality Date UPPER GASTROINTESTINAL ENDOSCOPY N/A 11/30/2017 Procedure: EGD; Surgeon: Loi Hui MD; Location: [facility] UPPER GASTROINTESTINAL ENDOSCOPY N/A 04/05/2019 Procedure: EGD; Surgeon: Loi Hui MD; Location: [facility] VEIN SURGERY Social History Social History Socioeconomic History Marital status: Single Spouse name: Not on file Number of children: Not on file Years of education: Not on file Highest education level: Not on file Social Needs Financial resource strain: Not on file Food insecurity - worry: Not on file Food insecurity - inability: Not on file Transportation needs - medical: Not on file Transportation needs - non-medical: Not on file Occupational History Not on file Tobacco Use Smoking status: Former Smoker Types: Cigarettes Last attempt to quit: 2000 Years since quittin.8 Smokeless tobacco: Never Used Substance and Sexual Activity Alcohol use: No Alcohol/week: 0.0 oz Drug use: No Sexual activity: Not on file Other Topics Concern Not on file Social History Narrative Not on file Family History: Family History Problem Relation Age of Onset Heart disease Paternal Grandmother Heart attack Paternal Grandmother High blood pressure Paternal Grandmother Diabetes Paternal Grandfather Depression Paternal Grandfather Medications: pantoprazole 40 mg Intravenous BID Outpatient Medications 5-Hydroxytryptophan (5-HTP PO) Take 1 capsule by mouth nightly. acetaminophen (TYLENOL) 325 mg tablet Take 650 mg by mouth every 4 hours as needed for Sandy n. ascorbic acid (VITAMIN C) 500 mg chewable tablet Take 500 mg by mouth Daily. bismuth subsalicylate (PEPTO BISMOL) 262 mg chewable tablet Take 524 mg by mouth Daily as needed. Black Cohosh 540 MG CAPS Take 1 capsule by mouth Daily. Cyanocobalamin (B-12 PO) Take 1 tablet by mouth Daily. diphenhydrAMINE (BENADRYL) 25 mg tablet Take 25 mg by mouth nightly as needed for Itching. ECHINACEA PO Take 1 capsule by mouth Daily. Ginkgo Biloba (GINKOBA PO) Take 1 capsule by mouth Daily. isosorbide dinitrate (ISORDIL) 10 mg tablet TAKE 1 TABLET BY MOUTH 3 TIMES DAILY Multiple Vitamin (MULTI-VITAMIN PO) Take 1 tablet by mouth Daily. pantoprazole (PROTONIX) 40 mg tablet Take 1 tablet by mouth every morning (before breakfas t). ST FOUNTAIN WORT PO Take 1 capsule by mouth 3 times daily. UNABLE TO FIND Take 1-2 capsules by mouth Daily. Focus Factor Allergies: No Known Allergies ROS: patient denies cardiovascular or respiratory neurological symptoms. She does have uyen st pain but no cardiac history. Physical examination: BP 115/49 | Pulse 62 | Temp 36.6 C (97.8 F) (Oral) | Resp 17 | Ht 1.6 m (5' 3") | Wt 83.5 kg (184 lb 1.4 oz) | LMP (LMP Unknown) | SpO2 99% | BMI 32 .61 kg/m anxious talkative oriented 3 HEENT normal swallowing mechanism intact mucous membranes moist dentition in good repair chest is clear to auscultation percussion cardiovas cular S1 and S2 within moments no S3 spell or murmurs rubs abdomen soft bowel sounds present no pain to palpation rebound no masses are felt Laboratory: Recent Results (from the past 24 hour(s)) CBC with Differential Result Value Ref Range WBC 6.7 4.0 - 11.0 K/uL RBC 5.34 (H) 3.70 - 5.20 M/uL Hemoglobin 15.0 11.5 - 16.0 g/dL Hematocrit 44.9 34.0 - 47.0 % MCV 84.1 83.0 - 101.0 fL MCH 28.1 28.0 - 35.0 pg MCHC 33.4 32.0 - 36.0 g/dL RDW-CV 12.9 <15.0 % RDW-SD 39.2 35.1 - 46.3 fL Platelet Count 218 140 - 440 K/uL MPV 10.1 6.5 - 12.4 fL % Neutrophils 66.9 45.0 - 82.0 % % Lymphocytes 25.6 20.0 - 45.0 % % Monocytes 5.2 4.0 - 12.0 % % Eosinophils 0.9 0.0 - 5.0 % % Basophils 1.3 (H) 0.0 - 1.0 % % Immature Granulocytes 0.1 0.0 - 0.4 % Absolute Neutrophils 4.47 1.80 - 8.50 K/uL Absolute Lymphocytes 1.71 0.60 - 3.20 K/uL Absolute Monocytes 0.35 0.00 - 1.00 K/uL Absolute Eosinophils 0.06 0.00 - 0.40 K/uL Absolute Basophils 0.09 0.00 - 0.10 K/uL Absolute Immature Granulocytes 0.01 0.00 - 0.03 K/uL % nRBC 0 0 - 2 per 100 WBCs Absolute nRBC 0.00 0.00 - 0.01 K/uL Comprehensive Metabolic Panel Result Value Ref Range Na 138 136 - 145 mmol/L K 4.1 3.4 - 5.1 mmol/L Cl 101 98 - 107 mmol/L CO2 27 20 - 31 mmol/L Anion Gap 10 3 - 16 mmol/L Glucose 127 (H) 60 - 106 mg/dL BUN 15 9 - 23 mg/dL Creatinine 0.94 0.55 - 1.02 mg/dL eGFR if not >60 >=60 mL/min/1.73m2 Calcium 10.6 (H) 8.7 - 10.4 mg/dL Albumin 5.3 (H) 3.2 - 4.8 g/dL Bilirubin Total 0.7 0.3 - 1.2 mg/dL Total Protein 8.3 (H) 5.7 - 8.2 g/dL AST 26 0 - 34 U/L ALT 27 10 - 49 U/L Alkaline Phosphatase 111 46 - 116 U/L Globulin 3.0 2.1 - 3.8 g/dL Albumin/Globulin Ratio 1.8 0.8 - 1.9 BUN/Creatinine Ratio 16.0 Lipase Result Value Ref Range Lipase 41 12 - 53 U/L Basic Metabolic Panel Result Value Ref Range Na 140 136 - 145 mmol/L K 3.8 3.4 - 5.1 mmol/L Cl 106 98 - 107 mmol/L CO2 26 20 - 31 mmol/L Anion Gap 8 3 - 16 mmol/L Glucose 101 60 - 106 mg/dL BUN 13 9 - 23 mg/dL Creatinine 0.73 0.55 - 1.02 mg/dL eGFR if not >60 >=60 mL/min/1.73m2 Calcium 9.8 8.7 - 10.4 mg/dL BUN/Creatinine Ratio 17.8 Extra Lavender Top Tube Result Value Ref Range Extra Lavender Top Tube Done Xray: barium swallow as above. CT scan of sinuses and head 2016 noncontributory Assessment: dysphagia both esophageal and oral pharyngeal possible secondary to esophagitis esophageal dysmotility Anxiety possibly contributing to the above Recommendations: upper endoscopy with probable dilatation possible biopsy. Benefits and ri sks procedure explained to the patient she concurs and we'll do the same later today with pr opofol sedation Rodriguez Gómez MD Portions of this chart may have been created with Emp[employer] voice recognition software. Occasi onal wrong-word or sound-alike substitutions may have occurred due to the inherent shannon itations of voice recognition software. Please read the chart carefully and recognize, using context, where these substitutions have occurred Annette Sparks MD - 09/05/2019 8:45 PM PDT [place], [place] HOSPITALIST HISTORY & PHYSICAL Patient: Cherrie Quijano : 1960: Age: 58 y.o. MedRec: [id number] Admission date: 09/05/2019 Hospital day # : 0 Physician author: Annette Sanders MD Today: 09/05/2019 CHIEF COMPLAINT: dysphagia HISTORY OF PRESENT ILLNESS: This is a 58 y.o. female with a history of dysphagia, esophagitis, gastritis and GERD who p resented with worsening dysphagia. Patient reports 1.5 week h/o of worsening dysphagia to so lids, liquids and medications. She has been regurgitating whatever she eats or drinks. She f eels the food is getting stuck in upper chest. She has minimal PO intake for the past few da ys. She has lost 20 lbs in 2 weeks.She denies abdominal pain/diarrhea/bloody stools/melena. She takes pantoprazole 40 mg daily. She also takes isosorbide dinitrate TID prescribed by TANGELA P for ?esophageal spasms. She was seen in on 08/31 for similar complaints and urgent refe rral to GI was sent. Patient reports that she contacted the office and was told the referral is under review. She had EGD in 11/[address] Hui which showed small hiatal hernia, low g rade esophageal narrowing and mild schtzki ring (dilated) and erythematous gastric mucosa (g astric biopsy showed mild chronic gastritis, GE junction biopsy showed intestinal metaplasia , no dysplasia). She had another EGD in 03/[address] Hui which showed Grade D reflux esop hagitis (unable to take biopsies due to respiratory distress) PAST MEDICAL and SURGICAL HISTORY: Past Medical History: Diagnosis Date Depression with anxiety Dysphagia 06/16/2017 GERD (gastroesophageal reflux disease) Seizure (HCC) Wears partial dentures upper Past Surgical History: Procedure Laterality Date UPPER GASTROINTESTINAL ENDOSCOPY N/A 11/30/2017 Procedure: EGD; Surgeon: Loi Hui MD; Location: [facility] UPPER GASTROINTESTINAL ENDOSCOPY N/A 04/05/2019 Procedure: EGD; Surgeon: Loi Hui MD; Location: [facility] PROC[facility] VEIN SURGERY FAMILY HISTORY: family history includes Depression in her paternal grandfather; Diabetes in her paternal gr andfather; Heart attack in her paternal grandmother; Heart disease in her paternal grandmoth er; High blood pressure in her paternal grandmother. SOCIAL HISTORY: reports that she quit smoking about 19 years ago. Her smoking use included cigarettes. She has never used smokeless tobacco. She reports that she does not drink alcohol or use drugs. REVIEW OF SYSTEMS: A complete 10 system ROS was done, negative except HPI HOME MEDICATIONS: PT REPORTED TAKING NOT TAKING Medication Sig Last Dose Dispense Doc. Provider 5-Hydroxytryptophan (5-HTP PO) Take 1 capsule by mouth nightly. Historical Provider, acetaminophen (TYLENOL) 325 mg tablet Take 650 mg by mouth every 4 hours as needed for Sandy n. Historical ProviderMD ascorbic acid (VITAMIN C) 500 mg chewable tablet Take 500 mg by mouth Daily. Historical ProviderMD bismuth subsalicylate (PEPTO BISMOL) 262 mg chewable tablet Take 524 mg by mouth Daily as needed. Historical ProviderMD Black Cohosh 540 MG CAPS Take 1 capsule by mouth Daily. Historical ProviderMD Cyanocobalamin (B-12 PO) Take 1 tablet by mouth Daily. Historical ProviderMD diphenhydrAMINE (BENADRYL) 25 mg tablet Take 25 mg by mouth nightly as needed for Itching. Historical ProviderMD ECHINACEA PO Take 1 capsule by mouth Daily. Historical ProviderMD Ginkgo Biloba (GINKOBA PO) Take 1 capsule by mouth Daily. Historical ProviderMD isosorbide dinitrate (ISORDIL) 10 mg tablet TAKE 1 TABLET BY MOUTH 3 TIMES DAILY 90 table t James Farmer MD Multiple Vitamin (MULTI-VITAMIN PO) Take 1 tablet by mouth Daily. Historical ProviderMelecio pantoprazole (PROTONIX) 40 mg tablet Take 1 tablet by mouth every morning (before breakfas t). [address] MD [facility] [place] PO Take 1 capsule by mouth 3 times daily. Historical ProviderMD UNABLE TO FIND Take 1-2 capsules by mouth Daily. Focus Factor Historical ProviderMD ALLERGIES: No Known Allergies VITAL SIGNS: Temp: 37.3 C (99.2 F), Pulse: 68, Resp: 16, BP: 116/72, SpO2 95 % on room air at flow r ate L/min Temp Min: 37.3 C (99.2 F) Max: 37.3 C (99.2 F) Weight: 87.4 kg (192 lb 10.9 oz) PHYSICAL EXAMINATION: GA: NAD, AAOX3 HEENT: EOMI, dryMM Neck: no JVD Cardiac: rrr, no m/g/r Lung: CTAB, normal respiratory effort Abdomen: soft, nt/nd, nabs Ext:no c/c/e Pych: odd affect Neuro: certified medical assistant grossly intact, no focal weakness or sensory deficits DIAGNOSTIC STUDIES: Lab results last 24 hours Recent Results (from the past 24 hour(s)) CBC with Differential Collection Time: 09/05/19 16:26 Result Value Ref Range WBC 6.7 4.0 - 11.0 K/uL RBC 5.34 (H) 3.70 - 5.20 M/uL Hemoglobin 15.0 11.5 - 16.0 g/dL Hematocrit 44.9 34.0 - 47.0 % MCV 84.1 83.0 - 101.0 fL MCH 28.1 28.0 - 35.0 pg MCHC 33.4 32.0 - 36.0 g/dL RDW-CV 12.9 <15.0 % RDW-SD 39.2 35.1 - 46.3 fL Platelet Count 218 140 - 440 K/uL MPV 10.1 6.5 - 12.4 fL % Neutrophils 66.9 45.0 - 82.0 % % Lymphocytes 25.6 20.0 - 45.0 % % Monocytes 5.2 4.0 - 12.0 % % Eosinophils 0.9 0.0 - 5.0 % % Basophils 1.3 (H) 0.0 - 1.0 % % Immature Granulocytes 0.1 0.0 - 0.4 % Absolute Neutrophils 4.47 1.80 - 8.50 K/uL Absolute Lymphocytes 1.71 0.60 - 3.20 K/uL Absolute Monocytes 0.35 0.00 - 1.00 K/uL Absolute Eosinophils 0.06 0.00 - 0.40 K/uL Absolute Basophils 0.09 0.00 - 0.10 K/uL Absolute Immature Granulocytes 0.01 0.00 - 0.03 K/uL % nRBC 0 0 - 2 per 100 WBCs Absolute nRBC 0.00 0.00 - 0.01 K/uL Comprehensive Metabolic Panel Collection Time: 09/05/19 16:26 Result Value Ref Range Na 138 136 - 145 mmol/L K 4.1 3.4 - 5.1 mmol/L Cl 101 98 - 107 mmol/L CO2 27 20 - 31 mmol/L Anion Gap 10 3 - 16 mmol/L Glucose 127 (H) 60 - 106 mg/dL BUN 15 9 - 23 mg/dL Creatinine 0.94 0.55 - 1.02 mg/dL eGFR if not >60 >=60 mL/min/1.73m2 Calcium 10.6 (H) 8.7 - 10.4 mg/dL Albumin 5.3 (H) 3.2 - 4.8 g/dL Bilirubin Total 0.7 0.3 - 1.2 mg/dL Total Protein 8.3 (H) 5.7 - 8.2 g/dL AST 26 0 - 34 U/L ALT 27 10 - 49 U/L Alkaline Phosphatase 111 46 - 116 U/L Globulin 3.0 2.1 - 3.8 g/dL Albumin/Globulin Ratio 1.8 0.8 - 1.9 BUN/Creatinine Ratio 16.0 Lipase Collection Time: 09/05/19 16:26 Result Value Ref Range Lipase 41 12 - 53 U/L Micro results Microbiology Results (72 hrs) No results found for the last 72 hours. Radiology results No results found. I reviewed imaging EKG Results (I reviewed EKG) I reviewed and summarized old records ASSESSMENT: Principal Problem: Dysphagia Active Hospital Problems Diagnosis Dysphagia Resolved Hospital Problems No resolved problems to display. Code Status Full Medical Decision Maker Self DVT Prophylaxis SCDs PLAN: # Dysphagia # GERD/Esophagitis/Gastritis - worsening dysphagia to solids/liquids/medications, +regurgitation, minimal PO intake, naty ght loss - EGD in 11/[address] Hui which showed small hiatal hernia, low grade esophageal narrowi ng and mild schtzki ring (dilated) and erythematous gastric mucosa (gastric biopsy showed mi ld chronic gastritis, GE junction biopsy showed intestinal metaplasia, no dysplasia). EGD in 03/[address] Hui showed Grade D reflux esophagitis (unable to take biopsies due to respi ratory distress) - Dr. Gómez consulted - admit as obs - IV PPI BID - gentle IVF - npo at DC, EGD in [facility] Documentation I expect this patient will be hospitalized for less than 2-midnights and expect the post-ho spital plan to be discharge to home or to an adult foster home. Electronically signed by: Annette Sanders MD 09/06/2019 5:46 [facility] Portions of this chart may have been created with [employer] voice recognition software. Occasi onal wrong-word or sound-alike substitutions may have occurred due to the inherent shannon itations of voice recognition software. Please read the chart carefully and recognize, using context, where these substitutions have occurred documented in th is encounter Consult Notes Rodriguez Gómez MD - 09/06/2019 7:58 AM PDT Gastroenterology Consultation: [facility] 09/06/2019 Cherrie Quijano 58 y.o. [id number] History of present illness: asked to consult on patient for dysphagia is [facility] physician 09/05/2019 Anxious talkative female who's had intermittent dysphagia for multiple years. Her last end oscopy in March of this year was complicated by what sounds like hypoxia. No dilatation was d one at that time. Small hiatal hernia was noted. There was grade D esophagitis Upper endos copy November 2017 showed a hiatal hernia with a nonobstructing Schatzki's ring. Esophageal dilatation helped with the patient's swallowing. Patient complains of difficulty swallowing pills and the oral pharyngeal area and food including puddings and water getting stuck in t he midesophagus. She will eat and within 2-3 minutes and spontaneous regurgitation. She lao s had no weight loss associated with the same denies hematemesis or melena. Upper GI x-ray done 2016 showed a small sliding hiatal hernia with spontaneous reflux and there was poor esophageal contractility with no fixed stricture. The patient on a outpatient basis has bee n taking PPI therapy twice a day and Carafate. She could not tolerate the latter is explain ed for nausea. Patient denies any melena complains of retrosternal burning and some nausea. The patient does not follow an anti-reflex regimen. She does state she sleeps on 2 pillow s at night. Denies supra esophageal manifestations of reflux such as aspiration voice canales e etc. Past medical history: Past Medical History: Diagnosis Date Depression with anxiety Dysphagia 06/16/2017 GERD (gastroesophageal reflux disease) Seizure (HCC) Wears partial dentures upper Past surgical history: Past Surgical History: Procedure Laterality Date UPPER GASTROINTESTINAL ENDOSCOPY N/A 11/30/2017 Procedure: EGD; Surgeon: Loi Hui MD; Location: [facility] PROC[facility] UPPER GASTROINTESTINAL ENDOSCOPY N/A 04/05/2019 Procedure: EGD; Surgeon: Loi Hui MD; Location: [facility] PROC[facility]URE [facility] VEIN SURGERY Social History Social History Socioeconomic History Marital status: Single Spouse name: Not on file Number of children: Not on file Years of education: Not on file Highest education level: Not on file Social Needs Financial resource strain: Not on file Food insecurity - worry: Not on file Food insecurity - inability: Not on file Transportation needs - medical: Not on file Transportation needs - non-medical: Not on file Occupational History Not on file Tobacco Use Smoking status: Former Smoker Types: Cigarettes Last attempt to quit: 2000 Years since quittin.8 Smokeless tobacco: Never Used Substance and Sexual Activity Alcohol use: No Alcohol/week: 0.0 oz Drug use: No Sexual activity: Not on file Other Topics Concern Not on file Social History Narrative Not on file Family History: Family History Problem Relation Age of Onset Heart disease Paternal Grandmother Heart attack Paternal Grandmother High blood pressure Paternal Grandmother Diabetes Paternal Grandfather Depression Paternal Grandfather Medications: pantoprazole 40 mg Intravenous BID Outpatient Medications 5-Hydroxytryptophan (5-HTP PO) Take 1 capsule by mouth nightly. acetaminophen (TYLENOL) 325 mg tablet Take 650 mg by mouth every 4 hours as needed for Sandy n. ascorbic acid (VITAMIN C) 500 mg chewable tablet Take 500 mg by mouth Daily. bismuth subsalicylate (PEPTO BISMOL) 262 mg chewable tablet Take 524 mg by mouth Daily as needed. Black Cohosh 540 MG CAPS Take 1 capsule by mouth Daily. Cyanocobalamin (B-12 PO) Take 1 tablet by mouth Daily. diphenhydrAMINE (BENADRYL) 25 mg tablet Take 25 mg by mouth nightly as needed for Itching. ECHINACEA PO Take 1 capsule by mouth Daily. Ginkgo Biloba (GINKOBA PO) Take 1 capsule by mouth Daily. isosorbide dinitrate (ISORDIL) 10 mg tablet TAKE 1 TABLET BY MOUTH 3 TIMES DAILY Multiple Vitamin (MULTI-VITAMIN PO) Take 1 tablet by mouth Daily. pantoprazole (PROTONIX) 40 mg tablet Take 1 tablet by mouth every morning (before breakfas t). [facility] [place] WORT PO Take 1 capsule by mouth 3 times daily. UNABLE TO FIND Take 1-2 capsules by mouth Daily. Focus Factor Allergies: No Known Allergies ROS: patient denies cardiovascular or respiratory neurological symptoms. She does have uyen st pain but no cardiac history. Physical examination: BP 115/49 | Pulse 62 | Temp 36.6 C (97.8 F) (Oral) | Resp 17 | Ht 1.6 m (5' 3") | Wt 83.5 kg (184 lb 1.4 oz) | LMP (LMP Unknown) | SpO2 99% | BMI 32 .61 kg/m anxious talkative oriented 3 HEENT normal swallowing mechanism intact mucous membranes moist dentition in good repair chest is clear to auscultation percussion cardiovas cular S1 and S2 within moments no S3 spell or murmurs rubs abdomen soft bowel sounds present no pain to palpation rebound no masses are felt Laboratory: Recent Results (from the past 24 hour(s)) CBC with Differential Result Value Ref Range WBC 6.7 4.0 - 11.0 K/uL RBC 5.34 (H) 3.70 - 5.20 M/uL Hemoglobin 15.0 11.5 - 16.0 g/dL Hematocrit 44.9 34.0 - 47.0 % MCV 84.1 83.0 - 101.0 fL MCH 28.1 28.0 - 35.0 pg MCHC 33.4 32.0 - 36.0 g/dL RDW-CV 12.9 <15.0 % RDW-SD 39.2 35.1 - 46.3 fL Platelet Count 218 140 - 440 K/uL MPV 10.1 6.5 - 12.4 fL % Neutrophils 66.9 45.0 - 82.0 % % Lymphocytes 25.6 20.0 - 45.0 % % Monocytes 5.2 4.0 - 12.0 % % Eosinophils 0.9 0.0 - 5.0 % % Basophils 1.3 (H) 0.0 - 1.0 % % Immature Granulocytes 0.1 0.0 - 0.4 % Absolute Neutrophils 4.47 1.80 - 8.50 K/uL Absolute Lymphocytes 1.71 0.60 - 3.20 K/uL Absolute Monocytes 0.35 0.00 - 1.00 K/uL Absolute Eosinophils 0.06 0.00 - 0.40 K/uL Absolute Basophils 0.09 0.00 - 0.10 K/uL Absolute Immature Granulocytes 0.01 0.00 - 0.03 K/uL % nRBC 0 0 - 2 per 100 WBCs Absolute nRBC 0.00 0.00 - 0.01 K/uL Comprehensive Metabolic Panel Result Value Ref Range Na 138 136 - 145 mmol/L K 4.1 3.4 - 5.1 mmol/L Cl 101 98 - 107 mmol/L CO2 27 20 - 31 mmol/L Anion Gap 10 3 - 16 mmol/L Glucose 127 (H) 60 - 106 mg/dL BUN 15 9 - 23 mg/dL Creatinine 0.94 0.55 - 1.02 mg/dL eGFR if not >60 >=60 mL/min/1.73m2 Calcium 10.6 (H) 8.7 - 10.4 mg/dL Albumin 5.3 (H) 3.2 - 4.8 g/dL Bilirubin Total 0.7 0.3 - 1.2 mg/dL Total Protein 8.3 (H) 5.7 - 8.2 g/dL AST 26 0 - 34 U/L ALT 27 10 - 49 U/L Alkaline Phosphatase 111 46 - 116 U/L Globulin 3.0 2.1 - 3.8 g/dL Albumin/Globulin Ratio 1.8 0.8 - 1.9 BUN/Creatinine Ratio 16.0 Lipase Result Value Ref Range Lipase 41 12 - 53 U/L Basic Metabolic Panel Result Value Ref Range Na 140 136 - 145 mmol/L K 3.8 3.4 - 5.1 mmol/L Cl 106 98 - 107 mmol/L CO2 26 20 - 31 mmol/L Anion Gap 8 3 - 16 mmol/L Glucose 101 60 - 106 mg/dL BUN 13 9 - 23 mg/dL Creatinine 0.73 0.55 - 1.02 mg/dL eGFR if not >60 >=60 mL/min/1.73m2 Calcium 9.8 8.7 - 10.4 mg/dL BUN/Creatinine Ratio 17.8 Extra Lavender Top Tube Result Value Ref Range Extra Lavender Top Tube Done Xray: barium swallow as above. CT scan of sinuses and head 2016 noncontributory Assessment: dysphagia both esophageal and oral pharyngeal possible secondary to esophagitis esophageal dysmotility Anxiety possibly contributing to the above Recommendations: upper endoscopy with probable dilatation possible biopsy. Benefits and ri sks procedure explained to the patient she concurs and we'll do the same later today with pr opofol sedation Rodriguez Gómez MD Portions of this chart may have been created with Empower[employer] voice recognition software. Occasi onal wrong-word or sound-alike substitutions may have occurred due to the inherent shannon itations of voice recognition software. Please read the chart carefully and recognize, using context, where these substitutions have occurred documented in this [facility] ED Notes James Cornejo MD - 09/05/2019 4:06 PM PDTFormatting of this note might be different fr om the original. Chief Complaint: "I cannot swallow anything" HPI: This patient presents to the Emergency Department with difficulty swallowing. This is a very pleasant 58-year-old female who has a history of esophageal stricture now presenting with progressive and worsening inability to swallow. The patient cannot eat any food or ev en swallow pudding or liquids. When she does, about 20 minutes after she swallows, she imme diately vomits. Several vomit gets more phlegm mixed with the food that she just tried to s wallow. It does not actually feel like the food ever goes into her stomach. The patient fe els like her voice is changed. She was seen at the urgent care recently for this and was re ferred to gastroenterology. The patient did not follow-up yet because apparently the gastro enterologist that had done her last endoscopy (Dr. Hui) has left the community. The sympt oms are severe 10 out of 10 with nothing making it better or worse. No associated fevers or chills. She feels weak and dehydrated and feels like she is not getting adequate nutrition at home Past Medical and Surgical History The patient has a past medical history of Depression with anxiety, Dysphagia (06/16/2017), G ERD (gastroesophageal reflux disease), Seizure (HCC), and Wears partial dentures. The patien t has a past surgical history that includes Vein Surgery; Upper gastrointestinal endoscopy ( N/A, 11/30/2017); and Upper gastrointestinal endoscopy (N/A, 04/05/2019). Family and Social History The patient's family history includes Depression in her paternal grandfather; Diabetes in h er paternal grandfather; Heart attack in her paternal grandmother; Heart disease in her lerner rnal grandmother; High blood pressure in her paternal grandmother. The patient reports that she quit smoking about 19 years ago. Her smoking use included cigarettes. She has never used smokeless tobacco. She reports that she does not drink alcohol or use drugs. Medications [employer] Home Medications Medication Sig 5-Hydroxytryptophan (5-HTP PO) Take 1 capsule by mouth nightly. acetaminophen (TYLENOL) 325 mg tablet Take 650 mg by mouth every 4 hours as needed for Pain. ascorbic acid (VITAMIN C) 500 mg chewable tablet Take 500 mg by mouth Daily. bismuth subsalicylate (PEPTO BISMOL) 262 mg chewable tablet Take 524 mg by mouth Daily as needed. Black Cohosh 540 MG CAPS Take 1 capsule by mouth Daily. Cyanocobalamin (B-12 PO) Take 1 tablet by mouth Daily. diphenhydrAMINE (BENADRYL) 25 mg tablet Take 25 mg by mouth nightly as needed for Itchi ng. ECHINACEA PO Take 1 capsule by mouth Daily. Ginkgo Biloba (GINKOBA PO) Take 1 capsule by mouth Daily. isosorbide dinitrate (ISORDIL) 10 mg tablet TAKE 1 TABLET BY MOUTH 3 TIMES DAILY Multiple Vitamin (MULTI-VITAMIN PO) Take 1 tablet by mouth Daily. pantoprazole (PROTONIX) 40 mg tablet Take 1 tablet by mouth every morning (before break fast). [facility] [place] PO Take 1 capsule by mouth 3 times daily. UNABLE TO FIND Take 1-2 capsules by mouth Daily. Focus Factor Allergies No Known Allergies Review of Systems Review of Systems Constitutional: Negative for chills and fever. Gastrointestinal: Positive for vomiting. Negative for abdominal pain, diarrhea and nausea. As in history of present illness. A 10 system review was otherwise negative. Physical Examination VITAL SIGNS: Temp: 37.3 C (99.2 F) Pulse: 88 Resp: 16 SpO2: 96 % BP: 129/81 Body mass index is 34.13 kg/m. Constitutional: female patient, anxious, alert and appropriate, conversant with nurse and s taff. HEENT: Atraumatic, patient follows me around the room with their eyes, PERRL, Oropharynx sh ows no redness, dry mucus membranes. Neck: Supple with full range of motion. No JVD, lymphadenopathy, or meningismus. Respiratory: Good air movement bilaterally. No wheezes, no rales. Patient's work of breathi ng is normal. Cardiovascular: Normal S1 S2. No rubs or murmurs Abdomen: Soft, nontender. No rebound, guarding, or masses. Bowel tones normal. No pulsat ile masses Skin: Warm, Dry, No obvious rashes. Capillary refill is brisk <3 seconds and shows good per fusion on areas of visible skin. Neurologic: Alert & oriented. Cranial nerves II-XII intact. No focal deficits. Gait is norm al. Speech is normal. Psychiatric: Normal mood, affect and judgement. No evidence of suicidal or homicidal ideat ion at this time. Labs Results for orders placed or performed during the hospital encounter of 09/05/19 CBC with Differential Result Value Ref Range WBC 6.7 4.0 - 11.0 K/uL RBC 5.34 (H) 3.70 - 5.20 M/uL Hemoglobin 15.0 11.5 - 16.0 g/dL Hematocrit 44.9 34.0 - 47.0 % MCV 84.1 83.0 - 101.0 fL MCH 28.1 28.0 - 35.0 pg MCHC 33.4 32.0 - 36.0 g/dL RDW-CV 12.9 <15.0 % RDW-SD 39.2 35.1 - 46.3 fL Platelet Count 218 140 - 440 K/uL MPV 10.1 6.5 - 12.4 fL % Neutrophils 66.9 45.0 - 82.0 % % Lymphocytes 25.6 20.0 - 45.0 % % Monocytes 5.2 4.0 - 12.0 % % Eosinophils 0.9 0.0 - 5.0 % % Basophils 1.3 (H) 0.0 - 1.0 % % Immature Granulocytes 0.1 0.0 - 0.4 % Absolute Neutrophils 4.47 1.80 - 8.50 K/uL Absolute Lymphocytes 1.71 0.60 - 3.20 K/uL Absolute Monocytes 0.35 0.00 - 1.00 K/uL Absolute Eosinophils 0.06 0.00 - 0.40 K/uL Absolute Basophils 0.09 0.00 - 0.10 K/uL Absolute Immature Granulocytes 0.01 0.00 - 0.03 K/uL % nRBC 0 0 - 2 per 100 WBCs Absolute nRBC 0.00 0.00 - 0.01 K/uL Comprehensive Metabolic Panel Result Value Ref Range Na 138 136 - 145 mmol/L K 4.1 3.4 - 5.1 mmol/L Cl 101 98 - 107 mmol/L CO2 27 20 - 31 mmol/L Anion Gap 10 3 - 16 mmol/L Glucose 127 (H) 60 - 106 mg/dL BUN 15 9 - 23 mg/dL Creatinine 0.94 0.55 - 1.02 mg/dL eGFR if not >60 >=60 mL/min/1.73m2 Calcium 10.6 (H) 8.7 - 10.4 mg/dL Albumin 5.3 (H) 3.2 - 4.8 g/dL Bilirubin Total 0.7 0.3 - 1.2 mg/dL Total Protein 8.3 (H) 5.7 - 8.2 g/dL AST 26 0 - 34 U/L ALT 27 10 - 49 U/L Alkaline Phosphatase 111 46 - 116 U/L Globulin 3.0 2.1 - 3.8 g/dL Albumin/Globulin Ratio 1.8 0.8 - 1.9 BUN/Creatinine Ratio 16.0 Lipase Result Value Ref Range Lipase 41 12 - 53 U/L Imaging Recent imaging: No results found. Medical Decision Making EMS notes and jail records if applicable/available. Pertinent labs and imaging stud ies were reviewed (see above). Medication and allergy lists reviewed in [facility]. Nursing notes and old records were reviewed if available within [facility]. ER course: 16:06 - Patient care initiated. After introducing myself to the patient, I performed a care ful history and physical examination. This is a 58-year-old female presenting with difficult he swallowing. The patient likely e ither has achalasia or a severe esophageal stricture. Ultimately she might not be stable fo r discharge home and I will call gastroneurology on-call and discussed the case with him aft er laboratory studies have resulted 17:02. At this point, the patient is definitely hemoconcentrated and dehydrated. The neema ent will benefit from further discussion with GI Case was discussed with gastroenterology Dr Gómez. Given the patient's severe respiratory distress which limited her last endoscopy, her inability to eat or drink, and her dehydratio n, it seems reasonable to put her in observation and they will be able to perform an endosco py tomorrow. Coding Last Set of Vital Signs: Temp: 37.3 C (99.2 F) Pulse: 85 Resp: 16 SpO2: 96 % BP: 129/81 Impression 1. Dehydration, severe 2. Esophageal stricture 3. Unable to eat Disposition: Admit Condition: Stable Patient's Medications New Prescriptions No medications on file Modified Medications No medications on file Discontinued Medications No medications on file Administrations This Visit sodium chloride 0.9% (NS) bolus 1,000 mL Admin Date 09/05/2019 Action New Bag Dose 1000 mL Rate 4,000 mL/hr Route Intravenous Administered By MORGAN Loera MD 09/05/19 1708 ored, Lilliana Arshad RN - 09/05/2019 3:04 PM PDTPatient presenting to ED with chief complaint of difficulty swallowi ng. Patient reports she was seen at urgent care five days ago for esophagitis and was told t o stick to a soft diet until she follows up with GI. Patient reports she does not think she has a scheduled appointment with GI yet and she is having increased difficulty swallowing. P atient reports she is able swallow things with effort but frequently throws it back up.Elect ronically signed by Lilliana Henriquez RN at 09/05/2019 3:05 PM PDTdocumented in this encounter Miscellaneous Notes Plan of Care - Ioana Orr RN - 09/06/2019 4:05 PM PDTCase Management Discharge Joselito martinez Met with Cherrie at the bedside. She states she was able to eat some applesauce and drink so me water after her She lives in a house in [facility] that is split level with her significant other, Sarah puckett. She does not have any difficulty navigating the stairs. When she has to walk long distances she uses a walking stick. She has a car and drives. Her PCP is Dr. Farmer and she uses [facility] in [place]. Jake will drive her home when she is ready for discharge. Electronically signed by: Plan: Home with significant other.Electronically signed by: Ioana Orr RN 09/06/2019 1 6:16 lan of Care - Kelsey Mares, Speech Pathologist - 09/06/2019 3:47 PM PDTFormatting of this note might b e different from the original. Speech Therapy OPIB Plan of Care Initial Evaluation Note Patient Name: Cherrie Quijano Date of Onset of Illness/Injury or Date of Surgery: 09/05/2019 Start of Care/Start of Certification Date: 09/06/2019 End of Certification Date: 09/06/2019 Summary: Pt seen for initial swallow assessment s/p observation status following ER visit for acute dysphagia. Pt had EGD today which showed possible Mares's esophagus and was emp irically dilated. Prior esophagram in 2017 showed dysmotility, with dilation and small hiata l hernia. H/o of esophageal dilation but reportedly improved dysphagia after dilation. Pt r eports that for past 2 weeks she has consumed puree/ liquid diet and has lost "20 lbs" d/t d ifficulty eating. She exhibited some anxiety regarding swallowing certain food textures. She reports that even liquids/ puree would come back up passively, also reported some phlegm, a nd use of liquid wash to propel food down. Bedside swallow assessment completed- Pt able to feed self and only exhibited mild s/sx of dysphagia at very end of trials with mild throat clearing. See below for details of exam. Do uble swallow strategy worked continually to clear sensation of pharyngeal residue. CLINICAL SERVICES SPECIALIST recom mends return to soft solids and per GI MD to mechanical soft diet and thin liquids. CLINICAL SERVICES SPECIALIST disc ussed reflux precautions with regard to timing and posture eating and may also benefit from OP MBS to rule out pharyngeal dysphagia as component to current deficits. CLINICAL SERVICES SPECIALIST spoke with MD/ RN regarding recommendations. Pt agrees to POC. Non Instrumental/Clinical Swallow Exam Consistencies Trialed: thin liquids, mixed consistencies, medications, puree, solid Thin Liquid - Bedside Swallowing Comments: single and consecutive sips Mode of Presentation: self fed Volume(s) Presented (mL): patient controlled volumes Oral Phase Results: intact oral phase without signs of dysfunction Pharyngeal Phase Results: safe swallow, no signs/symptoms of aspiration or penetration Puree - Bedside Swallowing Comments: x3 tsp Mode of Presentation: self fed Oral Phase Results: intact oral phase without signs of dysfunction Pharyngeal Phase Results: safe swallow, no signs/symptoms of aspiration or penetration Solid - Bedside Swallowing Comments: ground x3, chopped x1, soft bread x4, cracker x1 Mode of Presentation: self fed Oral Phase Results: intact oral phase without signs of dysfunction Additional Documentation: swallowing concerns Swallowing Concerns: (delayed throat clearing bread/ cracker) Medication - Bedside Swallowing Comments: meds whole with water x1/time Mode of Presentation: fed by clinician Oral Phase Results: intact oral phase without signs of dysfunction Pharyngeal Phase Results: safe swallow, no signs/symptoms of aspiration or penetration Mixed Consistencies Bedside Swallowing Comments: pearsr in juice x3 Mode of Presentation: fed by clinician Oral Phase Results: intact oral phase without signs of dysfunction Pharyngeal Phase Results: safe swallow, no signs/symptoms of aspiration or penetration Oral Motor Structure and Function Oral Motor Structure and Function General Structure & Function: functional Dentition Assessment: upper dentures, missing teeth in some areas, dentition impacting abil ity to chew some foods Secretion Management: WNL/WFL Mucosal Quality: dry Volitional Swallow: no issues initiating volitional swallow Volitional Cough: no issues initiating volitional cough Identified Problems Needing Skilled Intervention: Possible pharyngeal dypshagia, suspected esophageal dysphagia Speech Language Pathology Discharge Recommendations are: Recommended discharge disposition: home with family/caregiver Post discharge speech language pathology recommendation: (POssible MBS as OP) Planned Interventions: diet texture modification, compensatory strategies, patient/caregiv er education(GI consult) Recommended Frequency: (EVAL) Functional Oral Intake Scale (FOIS): Cherrie scored 6/7 on the FOIS indicating she can tolerate total oral intake with no special preparation, but must avoid specific foods and liquid items. Interpretation: Number Definition 1 No oral intake 2 Tube dependence with minimal / inconsistent oral intake 3 Tube supplements with consistent oral intake 4 Total intake of a single consistency 5 Total oral intake of multiple consistencies requiring special preparation 6 Total oral intake with no special preparation, but must avoid specific foods and liquid i tems 7 Total oral intake with no restrictions For more information, please visit: https://www.ncbi.nlm.nih.gov/pubmed/11519694 Cognitive Alert and interactive Voice Intelligible, but perhaps slightly gravelly. She reports other people state she was hoarse Dysphagia Goal Most Recent Value STG Status new, met at 09/06/2019 1537 STG Pt will tolerate least restricted diet with no overt s/sx of airway compromise. at 1537 CLINICAL SERVICES SPECIALIST Time Calculation CLINICAL SERVICES SPECIALIST Individual Start Time: 1435 CLINICAL SERVICES SPECIALIST Individual Stop Time: 1526 CLINICAL SERVICES SPECIALIST Individual Total Time: 51 CLINICAL SERVICES SPECIALIST Total Treatment Time: 51 Timed TX Code Minutes: 0 Electronically signed by: Kelsey Flores, Speech Pathologist, 09/06/2019 15:47 Esophageal stricture [K22.2] Dehydration, severe [E86.0] Unable to eat [F50.89] lan of Care - Karolina Toro RN - 09/06/2019 3:27 PM PDTCherrie is alert and oriented x4. She remained free from falls and injury. SBA. Upper endoscopy done today. Complains of head ache.Tylenol given. Speech evaluation done and okayed for dysphagia mechanical. Call light i n reach and pt calls appropriately. p Note - Rodriguez Gómez MD - 09/06/2019 10:36 AM PDTUpper endoscopy was remark able for probable short segment of Mares's metaplasia from 35-37 cm. Small hiatal hernia. Enhanced imaging was used to guide biopsies of the distal esophagus. Gastric cavity appea red normal H. pylori biopsy was obtained duodenal biopsies were not obtained his duodenum mu cosa appeared normal. Empiric dilatation with Bautista 50 [place] was done with no mucosal di sruption. Mid esophageal biopsies were obtained looking for eosinophilic esophagitis is no mechanical lesion was noted that would account for the patient's dysphagia recall that she d id have esophageal dysmotility on esophagram. I would begin the patient on full liquid diet then progressed to a soft mechanical diet. S he should continue on her PPI therapy. Antireflux regimen was stressed to the patient earli er this morning and she should adhere to the same. We will contact her with biopsy results. -C Instructions Provat ion - Rodriguez Gómez MD - 09/06/2019 10:06 AM PDTDischarge Instructions for Upper Endoscopy Patient: Cherrie Quijano : 1960 Acct: [id number] Exam Date: Friday, September 06, 2019 Doctor: Rodriguez Gómez MD The chances of difficulty following this [...] If unable to reach your physician, call [facility] Emergency Department at Ext. [phone] Your doctor recommends these additional instructions: Take a full liquid diet today. Continue your present medications. We are waiting for your pathology results. Return to your primary care physician as previously scheduled. These instructions have been explained to the patient and/or escort. A copy has been given to the patient/escort. Nurse Signature Patient Signature Escort Signature Date Rodriguez Gómez MD 09/06/2019 10:43:52 AM This report has been signed electronically.Electronically signed by Rodriguez Gómez MD at 10:44 AM PDTdocumented in this encounter Plan of Treatment Not on filedocumented as of this encounter Procedures + +--------+ + + + | Procedure Name | Priori | Date/Time | Associated Diagnosis | Comments | | | ty | | | | + +--------+ + + + | HELICOBACTER PYLORI | Routin | 09/06/2019 | | Results for this | | BIOPSY | e | 10:24 AM | | procedure are in the | | | | PDT | | results section. | + +--------+ + + + | EGD | | 09/06/2019 | Dysphagia, | | | | | 10:16 AM | unspecified type | | | | | PDT | | | + +--------+ + + + | EGD | Routin | 09/06/2019 | | Results for this | | | e | 10:06 AM | | procedure are in the | | | | PDT | | results section. | + +--------+ + + + | EXTRA LAVENDER TOP | Routin | 09/06/2019 | | Results for this | | TUBE | e | 5:50 AM | | procedure are in the | | | | PDT | | results section. | + +--------+ + + + | BASIC METABOLIC | Routin | 09/06/2019 | | Results for this | | PANEL | e | 5:50 AM | | procedure are in the | | | | PDT | | results section. | + +--------+ + + + | SURGICAL PATHOLOGY | Routin | 09/06/2019 | | Results for this | | EXAM | e | 12:00 AM | | procedure are in the | | | | PDT | | results section. | + +--------+ + + + | CBC WITH | STAT | 09/05/2019 | | Results for this | | DIFFERENTIAL | | 4:26 PM | | procedure are in the | | | | PDT | | results section. | + +--------+ + + + | LIPASE | STAT | 09/05/2019 | | Results for this | | | | 4:26 PM | | procedure are in the | | | | PDT | | results section. | + +--------+ + + + | COMPREHENSIVE | STAT | 09/05/2019 | | Results for this | | METABOLIC PANEL | | 4:26 PM | | procedure are in the | | | | PDT | | results section. | + +--------+ + + + documented in this encounter Results FL Video Swallow w Speech (09/22/2019 2:22 PM PDT) + + | Specimen | + + | | + + + + + | Impressions | Performed At | + + + | No evidence for aspiration. Please see the speech pathologist | [facility] | | report for further information. Dictated and Signed by: Bear | | | MD Manny Electronically signed: 09/22/2019 2:28 PM | | + + + + + + | Narrative | Performed At | + + + | FL VIDEO SWALLOW W SPEECH 09/22/2019 1:58 PM HISTORY: Severe | [facility] | | dysphagia. COMPARISON: None. PROTOCOL: The patient was | | | administered various compounds coated with barium by the speech | | | pathologist. Fluoroscopic images were acquired. FINDINGS: There | | | is no evidence for aspiration with liquid, solid, or mixed foods. | | + + + + + | Procedure Note | + + | Manohar, Rad Results In - 09/22/2019 2:31 PM PDT FL VIDEO SWALLOW W SPEECH 09/22/2019 | | 1:58 PMHISTORY: Severe dysphagia.COMPARISON: None.PROTOCOL: The patient was administered | | various compounds coated with barium bythe speech pathologist. Fluoroscopic images were | | acquired. FINDINGS:There is no evidence for aspiration with liquid, solid, or mixed | | foods.IMPRESSION: No evidence for aspiration.Please see the speech pathologist report | | for further information.Dictated and Signed by: Bear Bryant MD Electronically signed: | | 09/22/2019 2:28 PM | |the speech pathologist. Fluoroscopic images were acquired. | | | |FINDINGS: | |There is no evidence for aspiration with liquid, solid, or mixed foods. | | | |IMPRESSION: | |No evidence for aspiration. | | | |Please see the speech pathologist report for further information. | | | |Dictated and Signed by: Bear Bryant MD | | Electronically signed: 09/22/2019 2:28 PM | + + + +---------+ + + | Performing | Address | City/State/[facility]code | Phone Number | | Organization | | | | + +---------+ + + | [facility] | | | | + +---------+ + + Helicobactor pylori Biopsy (09/06/2019 10:24 AM PDT) + + + + + + | Component | Value | Ref Range | Performed | Pathologist | | | | | At | Signature | + + + + + + | Helicobacte | Negative | Negative | [facility] | | | r pylori Ag | | | [facility] | | | | | | MEDICAL | | | | | | CENTER - | | | | | | LABORATORY | | + + + + + + + + | Specimen | + + | Tissue - Specimen | | from stomach | | (specimen) | + + + + + + + | Performing | Address | City/State/Zipcode | Phone Number | | Organization | | | | + + + + + | [facility] | [address] | [place] | [phone] | | [facility] | | [address] | | | - LABORATORY | | | | + + + + + EGD (09/06/2019 10:06 AM PDT) + + | Specimen | + + | | + + + + -+ | Narrative | Performed At | + + -+ | | [facility] | | GastroenterologyPatient Name: Cherrie QuijanoProcedure Date: 09/06/2019 | [facility] | | 10:06 AMMRN: [id number] #: [id number] of : | | | 1Admit Type: InpatientAge: 58Room: Endo Room 1Gender: | | | FemaleNote Status: FinalizedAttending MD: Rodriguez Gómez , | | | MDProcedure: Upper GI endoscopyIndications: | | | Oropharyngeal phase dysphagia, Esophageal dysphagiaProviders: | | | Rodriguez Gómez MD, Martina Velasco RN, Latanya Alfaro | | | MORGAN Munoz, Chacha Bhatia, Consulting Marine Engineer, Mitch | | | Puneet Hood DO (Anesthesia | | | Staff)Medicines: Propofol per AnesthesiaComplications: | | | No immediate complications. Estimated blood loss: | | | Minimal.Procedure: Pre-Anesthesia Assessment: - Prior to | | | the procedure, a History and Physical was performed, and | | | patient medications, allergies and sensitivities were reviewed. The | | | patient's tolerance of previous anesthesia was reviewed. - | | | Prior to the [...] the anesthesiologist and the | | | administrative technician in the endoscopy suite. Mental Status Examination: | | | anxious. Airway Examination: normal oropharyngeal airway and | | | neck mobility and Mallampati Class III (part of the uvula and | | | soft palate visualized). Prophylactic Antibiotics: The patient does | | | not require prophylactic antibiotics. Prior Anticoagulants: The | | | patient has taken no previous anticoagulant or antiplatelet | | | agents. ASA Grade Assessment: III - A patient with severe | | | systemic disease. After reviewing the risks and benefits, the | | | patient was deemed in satisfactory condition to undergo the | | | procedure. The anesthesia plan was to use monitored anesthesia | | | care (MAC). Immediately prior to administration of medications, | | | the patient was re-assessed for adequacy to receive sedatives. | | | The heart rate, respiratory rate, oxygen saturations, blood | | | pressure, adequacy of pulmonary ventilation, and response to care were | | | monitored throughout the procedure. The physical status of the | | | patient was re-assessed after the procedure. - After | | | reviewing the risks and benefits, the patient was deemed in | | | satisfactory condition to undergo the procedure. - Using IV | | | propofol under the supervision of an anesthesiologist was | | | determined to be medically necessary for this procedure based on | | | severe comorbidity (greater than ASA Grade II), patient's | | | dependence on opiates, sedatives or hypnotics and patient's | | | anxiety. - Immediately prior to administration of medications, | | | the patient was re-assessed for adequacy to receive sedatives. | | | - The heart rate, respiratory rate, oxygen saturations, blood | | | pressure, adequacy of pulmonary ventilation, and response to | | | care were monitored throughout the procedure. - The | | | physical status of the patient was re-assessed after the procedure. | | | After obtaining informed consent, the endoscope was passed under | | | direct vision. Throughout the procedure, the patient's blood | | | pressure, pulse, and oxygen saturations were monitored | | | continuously. The Endoscope was introduced through the mouth, | | | and advanced to the third part of duodenum. The upper GI | | | endoscopy was accomplished without difficulty. The patient | | | tolerated the procedure well.Findings: The upper third of the | | | esophagus and middle third of the esophagus were normal. | | | Biopsies were taken with a cold forceps for histology. | | | Verification of patient identification for the specimen was done. | | | Estimated blood loss was minimal. The Z-line was irregular | | | and was found 35 cm from the incisors. There were esophageal | | | mucosal changes suggestive of short-segment Mares's esophagus | | | present in the distal esophagus. The maximum longitudinal | | | extent of these mucosal changes was 2 cm in length. Imaging was | | | performed using the [employer] Intelligent Chromo Endoscopy (FICE) | | | system to visualize the esophageal mucosa. Mucosa was biopsied with | | | a cold forceps for histology. One specimen bottle was sent to | | | pathology. Verification of patient identification for the | | | specimen was done. Estimated blood loss was minimal. A 4 | | | cm hiatal hernia was present. A patulous lower esophageal | | | sphincter was found. Localized mildly erythematous mucosa | | | without bleeding was found in the gastric antrum. Biopsies were | | | taken with a cold forceps for Helicobacter pylori testing | | | using CLOtest. Verification of patient identification for the | | | specimen was done. Estimated blood loss was minimal. The | | | duodenal bulb, first portion of the duodenum, second portion of the | | | duodenum, area of the papilla and third portion of the duodenum | | | were normal. The retroflexed view confirmed previous | | | findings,Impression: - Normal upper third of esophagus and | | | middle third of esophagus. Biopsied. - Z-line irregular, | | | 35 cm from the incisors. - Esophageal mucosal changes suggestive | | | of short-segment Mares's esophagus. Biopsied. - 4 cm | | | hiatal hernia. - Patulous lower esophageal sphincter. - | | | Erythematous mucosa in the antrum. Biopsied. - Normal duodenal | | | bulb, first portion of the duodenum, second portion of the | | | duodenum, area of the papilla and third portion of the duodenum. | | | - The retroflexed view confirmed previous findings,Recommendation: | | | - [facility]. - Full | | | liquid diet today. - Continue present medications. - Await | | | pathology results. - Return to primary care physician as | | | previously scheduled.Rodriguez Gómez MD09/06/2019 10:43:52 AMThis | | | report has been signed electronically.Number of Addenda: 0Note | | | Initiated On: 09/06/2019 10:06 AMScope In: 10:22:47 AMScope Out: | | | 10:31:19 AM [facility], [address] [facility], | | | [place] [address] | | | the duodenum, area of the papilla and third portion of the duodenum. | | | - The retroflexed view confirmed previous findings, | | |Recommendation: | | | - Return [facility]. | | | - Full liquid diet today. | | | - Continue present medications. | | | - Await pathology results. | | | - Return to primary care physician as previously scheduled. | | |Rodriguez Gómez MD | | |09/06/2019 10:43:52 AM | | |This report has been signed electronically. | | |Number of Addenda: 0 | | |Note Initiated On: 09/06/2019 10:06 AM | | |Scope In: 10:22:47 AM | | |Scope Out: 10:31:19 AM | | | [facility], [address] , [place], [place] | | | [address] | | + + -+ + +---------+ + + | Performing | Address | City/State/Zipcode | Phone Number | | Organization | | | | + +---------+ + + | [facility] [place] | | | | + +---------+ + + Extra Lavender Top Tube (09/06/2019 5:50 AM PDT) + +-------+ + + + | Component | Value | Ref Range | Performed | Pathologist | | | | | At | Signature | + +-------+ + + + | Extra | Done | | [facility] | | | Lavender | | | [facility] | | | Top Tube | | | MEDICAL | | | [...] + + + + + | [facility] | [address] | [place] | [phone] | | [facility] | | [address] | | | - LABORATORY | | | | + + + + + Basic Metabolic Panel (09/06/2019 5:50 AM PDT) + + + + + + | Component | Value | Ref Range | Performed | Pathologist | | | | | At | Signature | + + + + + + | Na | 140 | 136 - 145 | [facility] | | | | | mmol/L | [facility] | | | | | | MEDICAL | | | | | | CENTER - | | | | | | LABORATORY | | + + + + + + | K | 3.8 | 3.4 - 5.1 | [facility] | | | | | mmol/L | [facility] | | | | | | MEDICAL | | | | | | CENTER - | | | | | | LABORATORY | | + + + + + + | Cl | 106 | 98 - 107 mmol/L | [facility] | | | | | | [facility] | | | | | | MEDICAL | | | | | | CENTER - | | | | | | LABORATORY | | + + + + + + | CO2 | 26 | 20 - 31 mmol/L | [facility] | | | | | | [facility] | | | | | | MEDICAL | | | | | | CENTER - | | | | | | LABORATORY | | + + + + + + | Anion Gap | 8 | 3 - 16 mmol/L | [facility] | | | | | | [facility] | | | | | | MEDICAL | | | | | | CENTER - | | | | | | LABORATORY | | + + + + + + | Glucose | 101 | 60 - 106 mg/dL | [facility] | | | | | | [facility] | | | | | | MEDICAL | | | | | | CENTER - | | | | | | LABORATORY | | + + + + + + | BUN | 13 | 9 - 23 mg/dL | [facility] | | | | | | [facility] | | | | | | MEDICAL | | | | | | CENTER - | | | | | | LABORATORY | | + + + + + + | Creatinine | 0.73 | 0.55 - 1.02 | [facility] | | | | | mg/dL | [facility] | | | | | | MEDICAL | | | | | | CENTER - | | | | | | LABORATORY | | + + + + + + | eGFR if not | >60Comment: GLOMERULAR | >=60 | [facility] | | | | FILTRATION | mL/min/1.73m2 | [facility] | | | [place] | RATE,ESTIMATED | | MEDICAL | | | | mL/min/1.65c4Berx than | | CENTER - | | | | 60 Chronic kidney | | LABORATORY | | | | disease,if found over a | | | | | | 3-month period.Less than | | | | | | 15 Kidney failureFor | | | | | | | | | | | | Americans,multiply the | | | | | | calculated GFR by 1.21. | | | | | | | | | | + + + + + + | Calcium | 9.8 | 8.7 - 10.4 | [facility] | | | | | mg/dL | [facility] | | | | | | MEDICAL | | | | | | CENTER - | | | | | | LABORATORY | | + + + + + + | BUN/Creatin | 17.8 | | [facility] | | | ine Ratio | | | [facility] | | | | | | MEDICAL [...] [address] | [place] | [phone] | | [facility] | | [address] | | | - LABORATORY | | | | + + + + + Surgical Pathology Exam (09/06/2019 12:00 AM PDT) + + | Specimen | + + | | + + + + + | Narrative | Performed At | + + + | SPECIMEN(S): A DISTAL ESOPHAGEAL BIOPSY SPECIMEN(S): B MID | [facility] | | ESOPHAGEAL BIOPSY SPECIMEN SOURCE: A. DISTAL ESOPHAGEAL BIOPSY | [facility] | | B. MID ESOPHAGEAL BIOPSY CLINICAL HISTORY: R13.10 (dysphagia, | | | unspecified) MICROSCOPIC DESCRIPTION: Histologic sections of all | | | submitted blocks are examined by light microscopy. These findings, | | | together with the gross examination, support the pathologic diagnosis. | | | FINAL PATHOLOGIC DIAGNOSIS: A. Distal esophagus, biopsy: - | | | Reactive squamocolumnar mucosa with intestinal metaplasia | | | (consistent with Mares's esophagus). - Negative for dysplasia. | | | B. Mid esophagus, biopsy: - Reactive squamous mucosa. | | | DDF:[facility]:C2NR GROSS DESCRIPTION: Two specimens are received in two | | | containers, labeled "KT." A. The specimen, labeled "KT, distal | | | esophageal biopsy," is received in formalin and consists of three | | | zamora-white soft tissue fragments ranging from 0.2-0.3 cm in greatest | | | dimension. The specimen is entirely submitted in cassette (A1). | | | B. The specimen, labeled "KT, mid esophageal BX," is received in | | | formalin and consists of five zamora-white soft tissue fragments ranging | | | from 0.1-0.2 cm in greatest dimension. The specimen is entirely | | | submitted in cassette (B1). [place] (under the direct supervision of a | | | pathologist) The Gross Description was prepared using a voice | | | recognition system. The report was reviewed for accuracy; however, | | | sound-alike word errors, addition and/or deletions may occur. If | | | there is any question about this report, please contact Client | | | Services. PERFORMING LABORATORY: The technical component was | | | performed by [employer], [address] [place] [id number] | | | (Rf Test Technician: Chely Cm MD; CLIA# [id number]). The professional | | | interpretation [facility] | | | [facility], [address] [place] [address]. Diagnostician: | | | James Shaver DO Pathologist Electronically Signed 09/07/2019 | | + + + + +---------+ + + | Performing | Address | City/State/Zipcode | Phone Number | | Organization | | | | + +---------+ + + | [place] [facility] | | | | | [facility] | | | | + +---------+ + + Lipase (09/05/2019 4:26 PM PDT) + + + + + + | Component | Value | Ref Range | Performed | Pathologist | | | | | At | Signature | + + + + + + | Lipase | 41Comment: New method in | 12 - 53 U/L | [facility] | | | | use as of January 18, | | [facility] | | | | 2018. Check reference | | MEDICAL | | | | range for changes.Some | | CENTER - | | | | analytes show | | LABORATORY | | | | significant variation | | | | | | from the previous | | | | | | method.It may be | | | | | | necessary to set a new | | | | | | baseline for this | | | | | | analyte. | | | | + + + + + + + + | Specimen | + + | Blood | + + + + + + + | Performing | Address | City/State/Zipcode | Phone Number | | Organization | | | | + + + + + | [facility] | [address] | [place] | [phone] | | [facility] | | [address] | | | - LABORATORY | | | | + + + + + Comprehensive Metabolic Panel (09/05/2019 4:26 PM PDT) + + + + + + | Component | Value | Ref Range | Performed | Pathologist | | | | | At | Signature | + + + + + + | Na | 138 | 136 - 145 | [facility] | | | | | mmol/L | [facility] | | | | | | MEDICAL | | | | | | CENTER - | | | | | | LABORATORY | | + + + + + + | K | 4.1 | 3.4 - 5.1 | [facility] | | | | | mmol/L | [facility] | | | | | | MEDICAL | | | | | | CENTER - | | | | | | LABORATORY | | + + + + + + | Cl | 101 | 98 - 107 mmol/L | [facility] | | | | | | [facility] | | | | | | MEDICAL | | | | | | CENTER - | | | | | | LABORATORY | | + + + + + + | CO2 | 27 | 20 - 31 mmol/L | [facility] | | | | | | [facility] | | | | | | MEDICAL | | | | | | CENTER - | | | | | | LABORATORY | | + + + + + + | Anion Gap | 10 | 3 - 16 mmol/L | [facility] | | | | | | [facility] | | | | | | MEDICAL | | | | | | CENTER - | | | | | | LABORATORY | | + + + + + + | Glucose | 127 (H) | 60 - 106 mg/dL | [facility] | | | | | | [facility] | | | | | | MEDICAL | | | | | | CENTER - | | | | | | LABORATORY | | + + + + + + | BUN | 15 | 9 - 23 mg/dL | [facility] | | | | | | [facility] | | | | | | MEDICAL | | | | | | CENTER - | | | | | | LABORATORY | | + + + + + + | Creatinine | 0.94 | 0.55 - 1.02 | [facility] | | | | | mg/dL | [facility] | | | | | | MEDICAL | | | | | | CENTER - | | | | | | LABORATORY | | + + + + + + | eGFR if not | >60Comment: GLOMERULAR | >=60 | [facility] | | | | FILTRATION | mL/min/1.73m2 | [facility] | | | KOSOVAN | RATE,ESTIMATED | | MEDICAL | | | | mL/min/1.70l4Lvid than | | CENTER - | | | | 60 Chronic kidney | | LABORATORY | | | | disease,if found over a | | | | | | 3-month period.Less than | | | | | | 15 Kidney failureFor | | | | | | | | | | | | Americans,multiply the | | | | | | calculated GFR by 1.21. | | | | | | | | | | + + + + + + | Calcium | 10.6 (H) | 8.7 - 10.4 | [facility] | | | | | mg/dL | [facility] | | | | | | MEDICAL | | | | | | CENTER - | | | | | | LABORATORY | | + + + + + + | Albumin | 5.3 (H) | 3.2 - 4.8 g/dL | [facility] | | | | | | [facility] | | | | | | MEDICAL | | | | | | CENTER - | | | | | | LABORATORY | | + + + + + + | Bilirubin | 0.7 | 0.3 - 1.2 mg/dL | [facility] | | | Total | | | [facility] | | | | | | MEDICAL | | | | | | CENTER - | | | | | | LABORATORY | | + + + + + + | Total | 8.3 (H) | 5.7 - 8.2 g/dL | [facility] | | | Protein | | | [facility] | | | | | | MEDICAL | | | | | | CENTER - | | | | | | LABORATORY | | + + + + + + | AST | 26 | 0 - 34 U/L | [facility] | | | | | | [facility] | | | | | | MEDICAL | | | | | | CENTER - | | | | | | LABORATORY | | + + + + + + | ALT | 27 | 10 - 49 U/L | [facility] | | | | | | [facility] | | | | | | MEDICAL | | | | | | CENTER - | | | | | | LABORATORY | | + + + + + + | Alkaline | 111 | 46 - 116 U/L | [facility] | | | Phosphatase | | | [facility] | | | | | | MEDICAL | | | | | | CENTER - | | | | | | LABORATORY | | + + + + + + | Globulin | 3.0 | 2.1 - 3.8 g/dL | [facility] | | | | | | [facility] | | | | | | MEDICAL | | | | | | CENTER - | | | | | | LABORATORY | | + + + + + + | Albumin/Esther | 1.8 | 0.8 - 1.9 | [facility] | | | bulin Ratio | | | [facility] | | | | | | MEDICAL | | | | | | CENTER - | | | | | | LABORATORY | | + + + + + + | BUN/Creatin | 16.0 | | [facility] | | | ine Ratio | | | [facility] | | | | | | MEDICAL [...] ST. | [address] | [place], [place] | [phone] | | [facility] | | [address] | | | - LABORATORY | | | | + + + + + CBC with Differential (09/05/2019 4:26 PM PDT) + + + + + + | Component | Value | Ref Range | Performed | Pathologist | | | | | At | Signature | + + + + + + | WBC | 6.7 | 4.0 - 11.0 K/uL | [facility] | | | | | | [facility] | | | | | | MEDICAL | | | | | | CENTER - | | | | | | LABORATORY | | + + + + + + | RBC | 5.34 (H) | 3.70 - 5.20 | [facility] | | | | | M/uL | [facility] | | | | | | MEDICAL | | | | | | CENTER - | | | | | | LABORATORY | | + + + + + + | Hemoglobin | 15.0 | 11.5 - 16.0 | [facility] | | | | | g/dL | [facility] | | | | | | MEDICAL | | | | | | CENTER - | | | | | | LABORATORY | | + + + + + + | Hematocrit | 44.9 | 34.0 - 47.0 % | [facility] | | | | | | [facility] | | | | | | MEDICAL | | | | | | CENTER - | | | | | | LABORATORY | | + + + + + + | MCV | 84.1 | 83.0 - 101.0 fL | [facility] | | | | | | [facility] | | | | | | MEDICAL | | | | | | CENTER - | | | | | | LABORATORY | | + + + + + + | MCH | 28.1 | 28.0 - 35.0 pg | [facility] | | | | | | [facility] | | | | | | MEDICAL | | | | | | CENTER - | | | | | | LABORATORY | | + + + + + + | MCHC | 33.4 | 32.0 - 36.0 | [facility] | | | | | g/dL | [facility] | | | | | | MEDICAL | | | | | | CENTER - | | | | | | LABORATORY | | + + + + + + | RDW-CV | 12.9 | <15.0 % | [facility] | | | | | | [facility] | | | | | | MEDICAL | | | | | | CENTER - | | | | | | LABORATORY | | + + + + + + | RDW-SD | 39.2 | 35.1 - 46.3 fL | [facility] | | | | | | [facility] | | | | | | MEDICAL | | | | | | CENTER - | | | | | | LABORATORY | | + + + + + + | Platelet | 218 | 140 - 440 K/uL | [facility] | | | Count | | | [facility] | | | | | | MEDICAL | | | | | | CENTER - | | | | | | LABORATORY | | + + + + + + | MPV | 10.1 | 6.5 - 12.4 fL | [facility] | | | | | | [facility] | | | | | | MEDICAL | | | | | | CENTER - | | | | | | LABORATORY | | + + + + + + | % | 66.9 | 45.0 - 82.0 % | [facility] | | | Neutrophils | | | [facility] | | | | | | MEDICAL | | | | | | CENTER - | | | | | | LABORATORY | | + + + + + + | % | 25.6 | 20.0 - 45.0 % | [facility] | | | Lymphocytes | | | [facility] | | | | | | MEDICAL | | | | | | CENTER - | | | | | | LABORATORY | | + + + + + + | % Monocytes | 5.2 | 4.0 - 12.0 % | [facility] | | | | | | [facility] | | | | | | MEDICAL | | | | | | CENTER - | | | | | | LABORATORY | | + + + + + + | % | 0.9 | 0.0 - 5.0 % | [facility] | | | Eosinophils | | | [facility] | | | | | | MEDICAL | | | | | | CENTER - | | | | | | LABORATORY | | + + + + + + | % Basophils | 1.3 (H) | 0.0 - 1.0 % | [facility] | | | | | | [facility] | | | | | | MEDICAL | | | | | | CENTER - | | | | | | LABORATORY | | + + + + + + | % Immature | 0.1 | 0.0 - 0.4 % | [facility] | | | Granulocyte | | | [facility] | | | s | | | MEDICAL | | | | | | CENTER - | | | | | | LABORATORY | | + + + + + + | Absolute | 4.47 | 1.80 - 8.50 | [facility] | | | Neutrophils | | K/uL | [facility] | | | | | | MEDICAL | | | | | | CENTER - | | | | | | LABORATORY | | + + + + + + | Absolute | 1.71 | 0.60 - 3.20 | [facility] | | | Lymphocytes | | K/uL | [facility] | | | | | | MEDICAL | | | | | | CENTER - | | | | | | LABORATORY | | + + + + + + | Absolute | 0.35 | 0.00 - 1.00 | [facility] | | | Monocytes | | K/uL | [facility] | | | | | | MEDICAL | | | | | | CENTER - | | | | | | LABORATORY | | + + + + + + | Absolute | 0.06 | 0.00 - 0.40 | [facility] | | | Eosinophils | | K/uL | [facility] | | | | | | MEDICAL | | | | | | CENTER - | | | | | | LABORATORY | | + + + + + + | Absolute | 0.09 | 0.00 - 0.10 | [facility] | | | Basophils | | K/uL | [facility] | | | | | | MEDICAL | | | | | | CENTER - | | | | | | LABORATORY | | + + + + + + | Absolute | 0.01 | 0.00 - 0.03 | [facility] | | | Immature | | K/uL | [facility] | | | Granulocyte | | | MEDICAL | | | s | | | CENTER - | | | | | | LABORATORY | | + + + + + + | % nRBC | 0 | 0 - 2 per 100 | [facility] | | | | | WBCs | [facility] | | | | | | MEDICAL | | | | | | CENTER - | | | | | | LABORATORY | | + + + + + + | Absolute | 0.00 | 0.00 - 0.01 | [facility] | | | nRBC | | K/uL | [facility] | | | | | | MEDICAL [...] + + | [facility] | [address] | [place] | [phone] | | [facility] | | [address] | | | - LABORATORY | | | | + + + + + documented in this encounter Visit Diagnoses + + | Diagnosis | + + | Dehydration, severe Dehydration | + + | Esophageal stricture Stricture and stenosis of esophagus | + + | Unable to eat | + + | Esophageal dysphagia Dysphagia, pharyngoesophageal phase | + + | Oropharyngeal dysphagia Dysphagia, oropharyngeal phase | + + | Gastroesophageal reflux disease, esophagitis presence not specified | + + | Dysphagia, unspecified type | + + | Gastroesophageal reflux disease with esophagitis | + + | Gastritis, presence of bleeding unspecified, unspecified chronicity, unspecified | | gastritis type | + + documented in this encounter Administered Medications + +--------+ +--------+------+------+ | Medication Order | MAR | Action | Dose | Rate | Site | | | Action | Date | | | | + +--------+ +--------+------+------+ | acetaminophen (TYLENOL) tablet | Given | 09/06/20 | 650 mg | | | | 650 mg 650 mg, Oral, EVERY 4 | | 19 3:04 | | | | | HOURS PRN, Pain, or fever >= 38.6 | | PM PDT | | | | | C (101.5 F), Starting Tue | | | | | | | 09/05/19 at 1943 | | | | | | + +--------+ +--------+------+------+ +---+---+ | | | +---+---+ + +---------+ +---+---+---+ | lactated ringers (LR) infusion | New Bag | 09/06/20 | | | | | at 10-100 mL/hr, Intravenous, | | 19 10:10 | | | | | CONTINUOUS, Starting 09/06/19 | | AM PDT | | | | | at 1045, TKO., Pre-op | | | | | | + +---------+ +---+---+---+ +---+---+ | | | +---+---+ + +-------+ +-------+---+---+ | pantoprazole (PROTONIX) | Given | 09/06/20 | 40 mg | | | | injection 40 mg 40 mg, | | 19 9:54 | | | | | Intravenous, 2 TIMES DAILY, First | | AM PDT | | | | | dose on Wed09/05/19 at 2100, | | | | | | | Indication: GERD | | | | | | + +-------+ +-------+---+---+ +-------+ +-------+---+---+ | Given | 09/05/20 | 40 mg | | | | | 19 8:12 | | | | | | PM PDT | | | | +-------+ +-------+---+---+ +---+---+ | | | +---+---+ + +---------+ +--------+-------+---+ | sodium chloride 0.9% (NS) bolus | New Bag | 09/05/20 | 1,000 | 4000 | | | 1,000 mL 1,000 mL, Intravenous, | | 19 4:22 | mLs | mL/hr | | | Administer over 15 Minutes, | | PM PDT | | | | | ONCE, 09/05/19 at 1610, For 1 | | | | | | | dose | | | | | | + +---------+ +--------+-------+---+ +---+---+ | | | +---+---+ + +---------+ +--------+ +---+ | sodium chloride 0.9% (NS) | New Bag | 09/06/20 | 1,000 | 75 mL/hr | | | infusion at 75 mL/hr, | | 19 1:03 | mLs | | | | Intravenous, CONTINUOUS, Starting | | PM PDT | | | | | 09/05/19 at 2000 | | | | | | + +---------+ +--------+ +---+ +---------+ +--------+ +---+ | New Bag | 09/05/20 | 1,000 | 75 mL/hr | | | | 19 8:13 | mLs | | | | | PM PDT | | | | +---------+ +--------+ +---+ +---+---+ | | | +---+---+ documented in this encounter
--- OUTSIDE RECORDS SUMMARY | ~2020-05-16 | XMS | Encounter Summary ---
Demographics + + + | Address | [address] | | | [place] [address] | + + + | Home Phone [...] + + + | Author | [facility] | | | and [place] | + + + | Organization | [facility] | | [...] Team Providers + +------+ + | Care Sql Database Administrator Name | Role | Phone | + +------+ + | James Farmer MD | PCP | | + +------+ + Reason for Visit + + + | Reason | Comments | + + + | Medication Refill | | + + + Encounter Details +--------+--------+ + + + | Date | Type | Department | Care Team | Description | +--------+--------+ + + + | 03/27/ | Refill | [facility] [place] [facility] | James Farmer, | Medication Refill | | 2019 | | MEDICINE [address] | [address] [facility] | | | | | [place], | [place] | | | | | [place] [address] | [id number] | | | | | [phone] | | | +--------+--------+ + + + Social History + +-------+ [...]
--- OUTSIDE RECORDS SUMMARY | ~2020-05-16 | XMS | Encounter Summary ---
Demographics + + + | Address | [address] | | | [place] [address] | + + + | Home Phone | | + + + | Preferred Language | Unknown | + + + | Marital Status | Single | + + + | Faith Affiliation | 1013 | + + + [...] Team Providers + +------+ + | Care Manager Fine Dining Name | Role | Phone | + [...] | Gastroenterol | Diagnoses | Darian, | [facility], | | | Services | ogy | Tertiary | James Dennis MD | Nishant Beckwith, | | | Required | | contraction | [address] | [address] | | | | | of esophagus | [address] [place] | [address] | | | | | | [place], [place] | [place], | | | | | | [address] | [place] [address] | | | | | | Phone: | Phone: | | | | | | [phone] | [phone] | | | | | | Fax: | Fax: | | | | | | [phone] | [phone] | +--------+ + + + + + + + | Scheduling Instructions | + + | Follow-up tertiary contractions of the esophagus | + + Encounter Details +--------+ + + + + | Date | Type | Department | Care Team | Description | +--------+ + + + + | 11/17/ | Orders Only | [facility] [place] [facility] | James Farmer, | Tertiary contraction | | 2018 | | MEDICINE [address] | [address] | of esophagus | | | | [place], | [place] | (Primary Dx) | | | | [place] [address] | [address] | | | | | [phone] | | | +--------+ + + + [...] + +--------+ + + | * [facility] [place] | Outpatient | Routin | Tertiary | Ordered: 11/17/2019 | | Gastroenterology - | Referral | e | contraction of | | | AMB Referral | | | esophagus | | + + +--------+ + + documented as of this encounter Visit Diagnoses + + | Diagnosis | + + | Tertiary contraction of esophagus - Primary | + + documented in this encounter"
--- OUTSIDE RECORDS SUMMARY | ~2020-05-16 | XMS | Encounter Summary ---
Demographics + + + | Address | [address] | | | [place] [address] | + + + | Home Phone [...] + + + | Author | [facility] | | | and [place] | + + + | Organization | [facility] | | | [...] Team Providers + +------+ + | Care Epoxy Coatings Installer Name | Role | Phone | + +------+ + PCP | Unavailable | + +------+ + Encounter Details +--------+ + + + + | Date | Type | Department | Care Team | Description | +--------+ + + + + | 01/07/ | Hospital | [facility] | Jered, | | | 2006 | Encounter | [facility] EM[facility]Y | Jamie Ulloa MD [address] | | | | [facility] [place] | [facility] | | | | | [place] | [place] [address] | | | | | [address] | [phone] | | | | | [phone] | | | +--------+ + + + [...]
--- OUTSIDE RECORDS SUMMARY | ~2020-05-16 | XMS | Encounter Summary ---
Demographics + + + | Address | [address] | | | [place] [address] | + + + | Home Phone | | + + + | Preferred Language | Unknown | + + + | Marital Status | Single | + + + | Restorationism Affiliation | 1013 | + + + | Race | Unknown | + + + | Ethnic Group | Unknown | + + + Author + + + | Author | [facility] | | | and [place] | + + + | Organization | [facility] | | [...] Team Providers + +------+ + | Care Wharfmaster Name | Role | Phone | + +------+ + | James Farmer MD | PCP | | + +------+ + Reason for Visit + +--------+ + | Reason | Onset | Comments | | | Date | | + +--------+ + | Medication Question | 11/16/ | | | | 2018 | | + +--------+ + Encounter Details +--------+ + + + + | Date | Type | Department | Care Team | Description | +--------+ + + + + | 11/16/ | Telephone | [facility] | James Farmer, | Medication Question | | 2018 | | [address] | MD Juanita FUNK | | | | | [place], | [place] | | | | | [place] [address] | [address] | | | | | [phone] | | | +--------+ + + + [...] Telephone Encounter - Ashlie Blevins LPN - 11/16/2019 3:21 PM PSTPhoned back to patient and she thinks an antidepressant might help her right now until she figures out what is azam g on with her and the issues with swallowing. She also states she finished the esophogram to day and is awaiting the results. I advised that we would not be able to prescribe her a medi caiton without an office visit and directed her to call to the appointment desk to schedule a follow up and to discuss the need for medication elephone Encounter - Maci Grider - 11/16/2019 3:12 PM PST Patient would like to speak to the nurse. Patient antidperessants to clear her head. Please advise documented in this e ncounter Plan of Treatment Not on filedocumented as of this encounter Visit Diagnoses Not on filedocumented in this encounter"
--- OUTSIDE RECORDS SUMMARY | ~2020-05-16 | XMS | Encounter Summary ---
Demographics + + + | Address | [address] | | | [place] [address] | + + + | Home Phone [...] Organization | [facility] | | | and [place] | + [...] Team Providers + +------+ + | Care Varnish Thinner Name | Role | Phone | + +------+ + | James Farmer MD | PCP | | + +------+ + Reason for Visit +---------+--------+ + | Reason | Onset | Comments | | | Date | | +---------+--------+ + | Results | 10/01/ | stress test | | | 2016 | | +---------+--------+ + Encounter Details +--------+ + + + + | Date | Type | Department | Care Team | Description | +--------+ + + + + | 10/01/ | Telephone | [facility] | James Farmer, | Results (stress | | 2016 | | MEDICINE [address] | MD [address] | test) | | | | [place], | [place] | | | | | [place] [address] | [id number] | | | | | [phone] | | | +--------+ + + + [...] Telephone Encounter - Ashlie Blevins LPN - 10/01/2017 11:57 AM PSTPhoned patient and advi sed of results elepho ne Encounter - Ashlie Blevins LPN - 10/01/2017 11:56 AM PST----- Message from James galdamez MD sent at 09/30/2017 12:17 PST ----- Her stress test was normal ----- Message ----- From: Fani Uriarte MD Sent: 09/30/2017 8:26 To: James Farmer MD documented in this e ncounter Plan of Treatment Not on filedocumented as of this encounter Visit Diagnoses Not on filedocumented in this encounter"
--- OUTSIDE RECORDS SUMMARY | ~2020-05-16 | XMS | Encounter Summary ---
Demographics + + + | Address | [address] | | | [place] [address] | + + + | Home Phone | | + + + | Preferred Language | Unknown | + + + | Marital Status | Single | + + + | Protestant Affiliation | 1013 | + + + | Race | Unknown | + + + | Ethnic Group | Unknown | + + + Author + + + | Author | [facility] | | | and [place] | + + + | Organization | [facility] | | | and [...] Team Providers + +------+ + | Care Workers' Compensation Claims Supervisor Name | Role | Phone | [...] Description | +--------+---------+ + + + | 07/23/ | Surgery | [facility] | Alireza Thomas MD | Canceled EGD, | | 2017 | | [facility] | [address] | COLONOSCOPY | | | | INTRA [address] | [place] [address] [place] [place] | | | | | [address] [place] | [address] | | | | | [address] | | | | | | [phone] | | | +--------+---------+ + + + [...] + + + | Blood Pressure | 126/73 | 07/23/2017 12:28 PM | | | | | PDT | | + + + + + | Pulse | 79 | 07/23/2017 12:28 PM | | | | | PDT | | + + + + + | Temperature | 37.8 C (100 F) | 07/23/2017 7:30 AM | | | | | PDT | | + + + + + | Respiratory Rate | 18 | 07/23/2017 7:30 AM | | | | | PDT | | + + + + + | Oxygen Saturation | 97% | 07/23/2017 7:30 AM | | | | | PDT | | + + + + + | Inhaled Oxygen | - | - | | | Concentration | | | | + + + + + | Weight | 75.6 kg (166 lb 9.6 | 07/23/2017 5:00 AM | | | | oz) | [...] pt to see PCP for referral to dry heat room attendant for workup DISCHARGE DIAGNOSES: Active Hospital Problems [...] signed by: Catrachita Moore MD, 07/25/2017 10:19 [facility] Portions of this chart may have been created with [employer] voice recognition software. Occasi onal wrong-word or [...] Kimmy Key MD - 07/24/2017 6:13 PM [id number] female with dyphagia. Work up suggestive of [...] for colo. Kimmy Key MD 07/24/2017 Gastroenterology, FACP [facility] [place], [place] Office: [phone] Catrachita Pacheco MD - 11:10 AM PDT Patient: Cherrie [...] on 07/22 AM -Na+ 140 on 07/23 S/p ddAVP & D5W 1L 07/23 AM AM cortisol 12.7 Na+ stable 2L fluid restrict diet as she is euvolemic q6 hr Na+ Dysphagia Since 04/21 per patient Workup thus far has included barium esophagram Appreciate GI consulting- EGD/colonoscopy deferred to outpt basis ST eval Will modify diet Acute metabolic encephalopathy Resolved Severe protein calorie malnutrition Appreciate chief service observer consulting Thiamine 300 mg IV daily Add [...] 0659 07/23 07 - 07/24 0659 07/24 07 - 07/24 1114 Most Rec ent Temp [...] Forearm over-th e-needle catheter system 20 gauge;1 11/25 in length 1 day Active Tubes/Drains No [...] this chart may have been created with [employer] voice recognition software. Occasi onal wrong-word or sound-alike substitutions may have occurred due to the inherent shannon itations of voice recognition software. Please read the chart carefully and recognize, using context, where these substitutions have occurred Sol Watson, MORGAN - 07/23/2017 9:12 PM PDT4 hour shift report: Patient is alert and oriented, walking to the [facility] with SBA , in the room helping [...] him with list and suggested he contact [facility] for hospital rates. A M Catrachita [...] 125 on 07/22 AM -Na+ 140 on 9 AM Reviewed with flute teacher Give ddAVP 2 mcg IV stat, will dose prn Give D5W 1L over 4hrs Stat q4 hr Na+ AM cortisol 12.7 Dysphagia Since 04/21 per patient Workup thus far has included barium esophagram Appreciate GI consulting- EGD/colonoscopy today if Na+ stable ST eval pending Acute metabolic encephalopathy Improved Protein calorie malnutrition Bilingual Speech Therapist consult pending Thrombocytopenia Plt 128k Monitor Dc [...] yrs and unchanged. Objective: Vital Signs 07/21 0700 - 07/22 0659 07/22 07 - 07/23 0659 07/23 0700 - 07/23 1115 Most Rec ent Temp [...] Negative KETONES UA Negative Negative mg/dL Specific [place] 1.010 1.001 - 1.030 PH UA 7.0 [...] this chart may have been created with E[employer] voice recognition software. Occasi onal wrong-word or [...] weakness and headaches. Objective: Vital Signs 07/20 07 - 07/21 0659 07/21 07 - 07/22 0659 07/22 700 - 07/22 [...] Negative KETONES UA Negative Negative mg/dL Specific [place] 1.010 1.001 - 1.030 PH UA 7.0 [...] signed by: Zoraida Pinedo MD 07/22/2017 21:01 Kailee Turcios RN - 07/22/2017 7:04 PM PDTPatient transfer Note Prior to patient transfer it was confirmed that the SBAR Handoff report was reviewed by 7N RN, and then that they had the opportunity to ask questions. Patient was then transferred t o room 725-2 via bed, patient was not on media monitor during transport. At the time of t ransfer patient had patent venous access with fluids infusing (see flowsheet for details). Kailee Alcaraz RN iu, MD Alireza - 07/22/2017 3:56 PM PDTGI note: Patient [...] clear liquids, MIraLax TID 4:0 5 PM Angie Bear ARNP - 07/22/2017 6:39 AM PDT Critical Care Progress Note 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 Replaced K+, Mag, and Phos. Keppra. Sister and SO visited last night. Both are from out of town and will be back today. Electronically signed by: Abbie Dias RN 07/22/2017 5:38 documented in this encounter H&P Notes Alireza Thomas MD - 07/23/2017 2:13 PM PDTFormatting of this note might be different from scotty arboleda. PRESEDATION ASSESSMENT/PLAN Pertinent History and Pre-Procedure Diagnosis: [...] held with the patien t or patient's access representative prior to the procedure. Benefits and [...] PDT Critical Care Admission History and Physical [facility] Intensive Care Unit Pt. Name: Cherrie Quijano Age: 56 y.o. : 1960 Code Status: No Order Date of Admission: 07/21/2017 Primary Care Physician: No Physician on file Attending: DO Kailee Rosales Chief Concern: Status epilepticus in the setting of severe hyponatremia History of Present Illness: Ms. Quijano is a 56 year old woman with a past medical history of GERD, depression, anxie ty and dysphagia, who was transferred to [facility] ICU today from [place] for status epilepti cus (3 generalized seizures without return to baseline), in the setting of severe hyponatrem ia. She had been undergoing a bowel prep in anticipation of EGD today for dysphagia evaluat marilyn. She got up to go to the bathroom, when her heard her moan and he went to inves tigate -- she then had a seizure lasting [...] Take one kit, first dose at 4pm [place] 29, s econd dose at 9pm July 20. [...] GERG, undergoing bowel prep for EGD to [facility] evaluate her recent issues with dysphagia, [...] I discussed the care plan with the COMMISSIONED FIRE OFFICER and with nursing and other ancillary services during multidisciplinary rounds. I agree with the COMMISSIONED FIRE OFFICER's note above with the following corrections and/or [...] she has lost ~ 40 lbs since March Change in nutritional intake? Yes, Has only been able to tolerate liquids and pureed foods d/t swallowing difficulty since the end of March. Foods included: Yogurt, shakes, soups, pud ding. Stated that she would only eat very small amounts. Usual intake pattern: Prior to current illness was eating 3 meals daily on general diet Chewing and swallowing difficulties BILLBOARD ERECTOR HELPER? Yes Nutritional supplements? Yes, Tried to drink [...] kg/m.(based on estimated dry wt: 75.6 kg) [place] Body Weight (IBW), Female: 52.4 kg (115 lb 8.3 oz) Usual Body Weight: 93 kg (205 lb); % Usual Body Weight: 81 Weight History Per [facility] Records: 05/08/2011 88.451 kg 01/30/2016 88.905 kg [...] a nd stooling patterns Elise Gutierrez RD [id number] DATE/TIME: 07/23/2017 15:19 Treva Mark RN - [...] Note Room #722/722-02 ISO: None Item for outside sales executive Comments Shift Summary A+O. Pleasant. Taking in [facility] altered diet w/o difficulty. Continuing on 2, [...] 124 (H) 07/24/2017 0609 POCGLU 115 (H) 07/23/20172050 POCGLU 120 (H) 07/23/2017 1708 Items to address 1:1 at bedside report: 1. Anticipated needs next 1-2 hours: ? Time sensitive labs next draw? ? PTT for heparin? ? Critical lab results to be called on? ? Gtt rate and adjustment times 2. Goals to progress towards discharge 3. MD Communication (pending/call needed?) lan of Care - Nupur Padilla RN - 07/25/2017 2:26 PM [...] chantel to reach at after discharge is [phone]. lan of Geoffrey - Hugo Olivares OT - 07/25/2017 1:36 PM [...] Cherrie Quijano 4 times/wk until discharge from [facility] or discharged from the hospital. Planned Interventions include . General Observations: Pt was sitting EOB, and agreebale to OT this pm. Precautions: falls, seizures LUE WB status: RUE WB status: LLE WB status: RLE WB status: Pertinent History of Current Problem: Pt is a 56 year old female with hx of depression/anxi ety, new dysphagia (01/2017) who [facility]. Social History: Pt resides in: , with significant other, and accessibility barriers. Equipment available includes: . 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; SO works ful l [...] Bed Mobility Supine to Sit Level of Lyons: independent Assistive Device: none Sit to Supine Level of Lyons: independent Assistive Device: none Transfers Sit to Stand Level of independence: supervised Assistive Device: none Stand to Sit Level of independence: supervised Assistive Device: none Toilet Level of Lyons: Assistive Device: Walk-in Shower Level of Lyons: Assistive Device: ADL Bathing Level of Lyons: Assistive Device: Position: Upper body dressing Level of Lyons: Assistive Device: Position: Lower body dressing Level of Lyons: stand by assist Assistive Device: none Position: sitting Toilet training Level of Lyons: Assistive Device: Position: Grooming Level of Lyons: stand by assist Assistive Device: none Position: standing Eating/self-feeding Level of Lyons: Assistive Device: Position: IADL: Functional Activity Tolerance: [...] Parkinson* Attending: Catrachita Moore MD Item for outside sales executive Comments Shift Summary Shift note: No notable [...] 1400) Last Bowel Movement: 07/23/17 ( 12/08 1939) /[place] Active Urinary Caths No matching active lines, drains, or airways [x] Voids / [] Incontinent / [] Straight Cath / [] Check for void Active Gtt [] IVF / [] IV/DIE CAST DIE MAKER / [x] Medlocked [x] Peripheral IV / [...] ety, new dysphagia (01/2017) who presented to [facility] with seizures and encephalopathy in settin g of severe hyponatremia. 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; SO works vocational rehabilitation specialist at [employer]; drives; does not own any ADs; tub [...] Gait See summary for details Level of Lyons: stand by assist, supervised Assistive Device: none Distance (feet): 500' Stairs See summary for details Number of Stairs: 20 Handrail Location: other (see comments) (R descending) Level of Lyons: stand by assist, supervised Assistive Device: 1 rail Technique Used: step to step (descending) Safety Issues: weight-shifting ability decreased Impairments: strength decreased, impaired balance Transfers Sit-Stand, Level of Lyons: supervised Stand-Sit, Level of Lyons: supervised [id number]-Vmgja-Cxd, Assistive Device: none Safety Issues: weight-shifting ability decreased, step length decreased Impairments: impaired balance, strength decreased Bed Mobility Assistive Device: none Roll Left, Level of Lyons: independent Scoot/Bridge, Level of Lyons: independent Supine to Sit, Level of Lyons: independent Sit to Supine, Level of Lyons: independent Impairments: strength decreased, impaired balance Balance [...] STG Status met at 07/25/2017 0800 STG Lyons Level independent at 07/25/2017 0800 STG Assistive Device none at 07/25/2017 0800 Ubmiuy-Phh-Oemjhm Goal Flowsheet Row Most Recent Value STG Status met at 07/25/2017 08 STG Lyons Level independent at 07/25/2017 0800 STG Assistive Device none at 07/25/2017 0800 All Transfers Goal Flowsheet Row Most Recent Value STG Status progressing at 07/25/2017 08 STG Lyons Level independent, modified independent at 07/25/2017 08 STG Assistive Device none, cane (straight, single point) at 07/25/2017 0800 Mlf-Mbgio-Ekx Goal Flowsheet Row Most Recent Value STG Status met, revised at 07/25/2017 08 STG Lyons Level independent at 07/25/2017 08 STG Assistive Device none at 07/25/2017 0800 Gait Goal Flowsheet Row Most Recent Value STG Status progressing, revised at 07/25/2017 08 STG Lyons Level independent at 07/25/2017 08 STG Assistive Device none at 07/25/2017 0800 STG Distance (feet) 150 at 07/25/2017 0800 Stair Goal Flowsheet Row Most Recent Value STG Status progressing, revised at 07/25/2017 0800 STG Lyons Level modified independent at 07/25/2017 08 STG [...] Note Room # 722/722-02 None Admitting: Zoraida Mix* Attending: Catrachita Moore MD Item for outside sales executive Comments Shift Summary Shift note: During initial [...] void Active Gtt [] IVF / [] IV/DIE CAST DIE MAKER / [x] Medlocked [x] Peripheral IV / [...] 124 (H) 07/24/2017 0609 POCGLU 115 (H) 07/23/20172050 POCGLU 120 (H) 07/23/2017 1708 No data [...] pt of results. Also, informed pt of [place]'s driving laws following a seizure. She reported she was living in [place]. Pt was advised to call DMV in [place] and ask the steps and laws of driving following a seizure, as I did not know the l aw. I did advise her not to drive due to results of the two tests. Pt was left at EOB, mkcenzie cloud informed of pt's progress. D/c recommendations pending. She may benefit from another [facility] stay and further examination. OT will continue to follow. Occupational Therapy Discharge Recommendations are: Recommended discharge disposition: other (see comments) (TBD) Post discharge occupational therapy recommendation: (TBD) Equipment Recommendations: none Equipment Issued: none Occupational Therapy will follow Cherrie Quijano 4 times/wk until discharge from [facility] or discharged from the hospital. Planned Interventions include . General Observations: Pt was sitting EOB, willing to complete OT eval Precautions: falls, seizures LUE WB status: RUE WB status: LLE WB status: RLE WB status: Pertinent History of Current Problem: Pt is a 56 year old female with hx of depression/anxi ety, new dysphagia (01/2017) who presented to [facility] with seizures and encephalopathy in settin g of severe hyponatremia. 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 Bed Mobility Supine to Sit Level of Lyons: supervised Assistive Device: none Sit to Supine Level of Lyons: supervised Assistive Device: none Transfers Sit to Stand Level of independence: stand by assist Assistive Device: none Stand to Sit Level of independence: stand by assist Assistive Device: none Toilet Level of Lyons: Assistive Device: Walk-in Shower Level of Lyons: Assistive Device: Balance Static Sitting: good balance Dynamic Sitting: good balance Static Standing: good balance Dynamic Standing: fair balance ADL Comments: Bathing Level of Lyons: Assistive Device: Position: . Upper body dressing Level of Lyons: Assistive Device: Position: Lower body dressing Level of Lyons: stand by assist Assistive Device: none Position: sitting Toilet training Level of Lyons: Assistive Device: Position: Grooming Level of Lyons: stand by assist Assistive Device: none Position: standing Eating/self-feeding Level of Lyons: Assistive Device: Position: IADL: Activity Tolerance: Good [...] RESTRAINT-RELATED GOALS: STRATEGIES TO ACHIEVE RESTRAINT GOALS: [facility] Physical Therapy OPIB Plan of Care Initial Evaluation, Treatment Note Patient Name: Cherrie Quijaon Onset of Illness/Injury: 07/21/17 Start of Care/Start of Certification Date: 07/24/2017 End of Certification Date: 08/23/2017 Summary: Pt is a 56 year old female with hx of depression/anxiety, new dysphagia (01/2017) who presented to [facility] with seizures and encephalopathy in setting of severe hyponatremia. Pt presents to PT eval resting in bed with SO at bedside. 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 at [employer]; drives; does not own any ADs; tub [...] Gait See summary for details Level of Lyons: stand by assist, minimal assist (75% patient effort) Assistive Device: cane (straight, single point), 2 wheeled walker (FWW), none Distance (feet): 2 x 150' Stairs See summary for details Number of Stairs: 8 Handrail Location: left side (ascending) Level of Lyons: stand by assist Assistive Device: 1 rail Technique Used: step to step (ascending), step to step (descending) Safety Issues: weight-shifting ability decreased Impairments: strength decreased, impaired balance Transfers Sit-Stand, Level of Lyons: stand by assist Stand-Sit, Level of Lyons: stand by assist Rrt-Uyuwl-Hlm, Assistive Device: none, cane (straight, single point) Safety Issues: step length decreased, sequencing ability decreased, weight-shifting ability decreased Impairments: impaired balance, strength decreased Bed Mobility Assistive Device: none Roll Left, Level of Lyons: supervised Scoot/Bridge, Level of Lyons: supervised Supine to Sit, Level of Lyons: supervised Sit to Supine, Level of Lyons: supervised Impairments: strength decreased, impaired balance Balance [...] STG Status new at 07/24/2017 1100 STG Lyons Level independent at 07/24/2017 1100 STG Assistive Device none at 07/24/2017 1100 Uieyuy-Fei-Avgwuf Goal Flowsheet Row Most Recent Value STG Status new at 07/24/2017 1100 STG Lyons Level independent at 07/24/2017 1100 STG Assistive Device none at 07/24/2017 1100 All Transfers Goal Flowsheet Row Most Recent Value STG Status new at 07/24/2017 1100 STG Lyons Level independent, modified independent at 07/24/2017 1100 STG Assistive Device none, cane (straight, single point) at 07/24/2017 1100 Sno-Opguw-Qud Goal Flowsheet Row Most Recent Value STG Status new at 07/24/2017 1100 STG Lyons Level independent, modified independent at 07/24/2017 1100 STG Assistive Device none, cane (straight, single point) at 07/24/2017 1100 Gait Goal Flowsheet Row Most Recent Value STG Status new at 07/24/2017 1100 STG Lyons Level independent, modified independent at 07/24/2017 1100 STG Assistive Device none, cane (straight, single point) at 07/24/2017 1100 STG Distance (feet) 150 at 07/24/2017 1100 Stair Goal Flowsheet Row Most Recent Value STG Status new at 07/24/2017 1100 STG Lyons Level modified independent at 07/24/2017 1100 STG [...] impaired, limited or restricted Outcome Measures Tools: [facility] 6-Clicks Form Justification of Severity Ratin/24 Electronically signed by: Rona Prather, PT, 07/24/2017 12:00 lan of Care - Tripp Hernandez RN - 07/24/2017 4:13 AM PDTFormatting [...] Goal Evaluation: 7N Nursing Progress Note Room #627/707-01 ISO: None Item for outside sales executive Comments Shift Summary A/O x4, VSS, Na+ [...] Na+ 136. Q4hrNa+ checks- call results to MD. Pass ed swallow eval. IV ML. Up with assist to BR. SO at bedside. Electronically signed by: Jr Gaming RN 07/23/2017 18:53 lan of Care - Loly Noland, Speech Pathologist - 07/23/2017 5:06 PM PDTSpeech Therapy Plan of Care Treatment Note Start of Care/Start of Certification Date: 07/23/17 End of Certification Date: 08/22/17 Summary: Patient seen for initial evaluation in [facility]. Orders received and completed re: patient's swallowing [...] Patient shows good comprehension and acknowledged her ne ed for follow up with GI MD [...] strategies, diet texture modification, patient/caregiv er education NAIL STICKER Diagnosis: Dysphagia Recommended Solid Texture: regular Recommended Medication Delivery: whole pills with thin liquids Recommended Liquid Texture: thin liquids Recommended Feeding/Eating Techniques: monitor for signs of aspiration Outcome Measures Tools: MANUEL NOMS Justification of Severity Rating: Clinical Swallow Evaluation THospital Course - Catrachita Moore MD - 07/23/2017 11:13 AM [facility] 56 Y[facility] with a [...] for swallow assessment. Thank you. [facility]Plan [facility] - Tang Carrillo RN - 07/23/2017 1:33 [...] Note Room #725/725-02 ISO: None Item for outside sales executive Comments Shift Summary Transfer from icu. Last [...] CVC [] HD [] Drains/Devices/Skin Jermaine Score: (!) 16 Active Drains No matching [...] airways Last bowel movement: Last Bowel Movement: (BILLBOARD ERECTOR HELPER) (07/21/17 0945) Active Gtt: Mentation/CAM +/- CAM [...] Weight: Height: Component Value Date/Time POCGLU 87 07/22/2017 2056 POCGLU 113 (H) 07/22/2017 1229 POCGLU 112 [...] per Dr. Thomas due to pt's "mentation". Duyahaira, PCXR ordered prior to transfer. ..Electronically signed by: Marlee Alcaraz RN 07/22/2017 17:50 lan of [facility] - Loly Akers Speech Pathologist - 07/22/2017 [...] + + | [facility] | [address] | [place] [address] | | | [facility] | [...] + + | Glucose | 126 (H)Comment: Malaysian | 65 - 99 mg/dL | [facility]OWELL | | | | Diabetes Association | [...] + + | [facility] | [address] | [place] [address] | | | [facility] | [...] + + | [facility] | [address] | [place] [address] | | | [facility] | | | | | [...] + + | [facility] | [address] | [place] [address] | | | [facility] | | | | | [...] + + | [facility] | [address] | [place] [address] | | | [facility] | [...] [address] | [place] [address] | | | [facility] | | | | | [...] + + | [facility] | [address] | [place] [address] | | | [facility] | | | | | LABORATORY | | | | + + + + + Phosphorus (07/24/2017 3:43 AM PDT) + +-------+ + + + | Component | Value | Ref Range | Performed | Pathologist | | | | | At | Signature | + +-------+ + + + | Phosphorus | 2.9 | 2.3 - 4.8 mg/dL | [facility] | | | | [...] + + | [facility] | [address] | [place] [id number] | | | [facility] | [...] + + | [facility] | [address] | [place] [id number] | | | [facility] | | | | | [...] + + | Glucose | 118 (H)Comment: Malaysian | 65 - 99 mg/dL | [facility] | | | | [employer] | [...] + | [facility] | [address] | [place] [address] | | | [facility] | [...] + | CHARMAINE WALSH | [address] | [place] [address] | | | [facility] | | | | | [...] + | [facility] | [address] | [place] [id number] | | | [facility] | | | | | [...] [address] | [place] [address] | | | [facility] | [...] + | CHARMAINE WALSH | [address] | [place] [address] | | | [facility] | | | | | [...] (H) | 65 - 99 mg/dL | CHARMAINE | | | POC | | | [...] + + | CHARMAINE WALSH | [address] | [place] [address] | | | [facility] | [...] + + | [facility] | [address] | [place] [address] | | | [facility] | [...] + + | CHARMAINE SACRRUSSELL | [address] | [place] [address] | | | [facility] | | | | | [...] + + | CHARMAINE WALSH | [address] | [place] [address] | | | [facility] | | | | | LABORATORY | | | | + + + + + Sodium (07/23/2017 10:49 AM PDT) + +-------+ + + + | Component | Value | Ref Range | Performed | Pathologist | | | | | At | Signature | + +-------+ + + + | Na | 143 | 135 - 145 | [facility] | [...] + + | [facility] | [address] | [place] [id number] | | | [facility] | [...] SACRED | [address] | [place] [address] | | | [facility] | | | | | [...] SACRED | [address] | [place] [address] | | | [facility] | | | | | [...] + + | Glucose | 106 (H)Comment: Malaysian | 65 - 99 mg/dL | [place] | | | | [employer] | [...] (L) | 8 - 25 mg/dL | [facility] | | | | | | SACRED [...] + + | [facility] | [address] | [place] [address] | | | [facility] | | | | | [...] + + | CHARMAINE WALSH | [address] | [place] [address] | | | [facility] | [...] + + | Hemoglobin | 5.4Comment: The Malaysian | 4.3 - 6.1 % | [facility] [...] + | CHARMAINE WALSH | [address] | [place] [address] | | | [facility] | | | | | [...] + + | [facility]EN[facility] SACR[facility] | [address] | [place] [id number] | | | [facility] | [...] + + | PROVIDEN[facility] SACRED | [address] | [place] [address] | | | [facility] | [...] + + | CHARMAINE WALSH | [address] | [place] [address] | | | [facility] | | | | | [...] | Procedure Note | + + | Jarek Villela Results In - 07/22/2017 7:12 PM PDT [...] - 1.030 | [facility] | | | [place] | | | SACRED | | | [...] + + | CHARMAINE WALSH | [address] | [place] [address] | | | [facility] | | | | | [...] + + | CHARMAINE WALSH | [address] | [place] [address] | | | [facility] | | | | | [...] + | [facility] | [address] | [place] [address] | | | [facility] | [...] + + | [facility] | [address] | [place] [address] | | | [facility] | | | | | [...] + + | CHARMAINE WALSH | [address] | [place] [address] | | | [facility] | | | | | [...] + | [facility] | [address] | [place] [address] | | | [facility] | [...] + | [facility] | [address] | [place] [address] | | | [facility] | [...] + + | CHARMAINE WALSH | [address] | [place] [address] | | | [facility] | | | | | [...] + + | [facility] | [address] | [place] [address] | | | [facility] | [...] [address] | [place] [address] | | | [facility] | [...] + | [facility] | [address] | [place] [address] | | | [facility] | [...] + | CHARMAINE WALSH | [address] | [place] [address] | | | [facility] | | | | | [...] + | [facility] | [address] | [place] [address] | | | [facility] | [...] + | [facility] | [address] | [place] [address] | | | [facility] | [...] + + | CHARMAINE WALSH | [address] | [place] [address] | | | [facility] | | | | | [...] + + | CHARMAINE SACRRUSSELL | [address] | [place] [address] | | | [facility] | [...] SACRED | [address] | [place] [address] | | | [facility] | | | | | [...] + + | [facility] | [address] | [place] [address] | | | [facility] | | | | | [...] + | CHARMAINE WALSH | [address] | [place] [address] | | | [facility] | | | | | [...] + + | [facility] | [address] | [place] [address] | | | [facility] | [...] + + | Glucose | 329 (H)Comment: Malaysian | 65 - 99 mg/dL | [facility] | | | | Diabetes Association | [...] + + | [facility]EN[facility]IE [facility]CR[facility] | [address] | [place] [address] | | | [facility] | | | | | [...] + | CHARMAINE WALSH | [address] | [place] [address] | | | [facility] | | | | | [...] | Procedure Note | + + | Jarek Villela Results In 07/21/2017 10:51 PM PDT | | CHEST [...] + + | CHARMAINE WALSH | [address] | [place] [address] | | | [facility] | | | | | [...] SACRED | [address] | [place] [address] | | | [facility] | [...] + + | CHARMAINE WALSH | [address] | [place] [address] | | | [facility] | | | | | [...] + + | [facility] | [address] | [place] [address] | | | [facility] | [...] - 1.030 | [facility] | | | [place] | | | SACRED | | | [...] + + | [facility] | [address] | [place] [address] | | | [facility] | | | | | [...] + | [facility] | [address] | [place] [address] | | | [facility] | | | | | [...] + + | Glucose | 129 (H)Comment: Malaysian | 65 - 99 mg/dL | [facility] [...] + + + + + | FLORRONNIE SACRRUSSELL | [address] | [place] [address] | | | [facility] | | | | | [...] + | [facility] | [address] | [place] [address] | | | [facility] | | | | | [...] + + | CHARMAINE WALSH | [address] | [place] [address] | | | [facility] | | | | | [...] | | | | | Breath, Starting [facility] 07/22/17 at | | | | | [...]
--- OUTSIDE RECORDS SUMMARY | ~2020-05-16 | XMS | Encounter Summary ---
Demographics + + + | Address | [address] | | | [place] [address] | + + + | Home Phone | | + + + | Preferred Language | Unknown | + + + | Marital Status | Single | + + + | Latter-Day Affiliation | 1013 | + + + | Race | Unknown | + + + | Ethnic Group | Unknown | + + + Author + + + | Author | [facility] | | | and [place] | + + + | Organization | [facility] | | [...] Team Providers + +------+ + | Care Rug Layer Name | Role | Phone | + +------+ + | James Farmer MD | PCP | | + +------+ + Reason for Visit + +--------+ + | Reason | Onset | Comments | | | Date | | + +--------+ + | Appointment | 10/26/ | | | | 2018 | | + +--------+ + Encounter Details +--------+ + + + + | Date | Type | Department | Care Team | Description | +--------+ + + + + | 10/26/ | Telephone | [facility] | Rodriguez Gómez MD | Appointment | | 2018 | | GASTROENTEROLOGY | [address] [place] | | | | | [address] [place] | [address] [place] | | | | | [address] [place], [place] | [address] | | | | | [address] | | | | | | [phone] | | | +--------+ + + + [...] Notes Telephone Encounter - Kurt Perez - 10/26/2019 1:59 PM PSTR/S at 3 pm on Clos ing referral. elephone Jeancarlos fragoso - Kurt Perez - 10/26/2019 11:06 AM PSTFirst Attempt: LVM for patient to gypsy solis an appt with Dr. Gómez . Provider will not be in clinic. R/s to NOV 01 or at 230 or 300 or 330 Thank you! doc umented in this encounter Plan of Treatment Not on filedocumented as of this encounter Visit Diagnoses Not on filedocumented in this encounter"
--- OUTSIDE RECORDS SUMMARY | ~2020-05-16 | XMS | Encounter Summary ---
Demographics + + + | Address | [address] | | | [place] [address] | + + + | Home Phone [...] + + + | Author | [facility] | | | and [place] | + + + | Organization | [facility] | | [...] Team Providers + +------+ + | Care Air Breaker Operator Name | Role | Phone | [...] | | | | Diagnoses | | Marielos, | | | | | Esophageal | | Nishant Beckwith, | | | | | dysphagia | | MD [address] | | | | | Seizure | | [address] | | | | | (HCC) | | [place], | | | | | Procedures | | [place] [address] | | | | | [place] | | Phone: | | | | | ESOPHAGOGAST | | [phone] | | | | | RODUODENOSCO | | Fax: | | | | | PY TRANSORAL | | [phone] | | | | | DIAGNOSTIC | | | | | | | AR EGD | | | | | | | TRANSORAL | | | | | | | BIOPSY | | | | | | | SINGLE/MULTI | | | | | | | PLE AR | | | | | | | DILATE | | | | | | | ESOPHAGUS | | | | | | | AR | | | | | | | [...] Description | +--------+---------+ + + + | 02/19/ | Surgery | [facility] | Nishant Snow | [facility] | | 2020 | | [facility] | MD Tang [address] | | | | | [address] | [address] [facility] | | | | | [place] | [place] [address] | | | | | [address] | [phone] | | | | | [phone] | | | +--------+---------+ + + + [...] + + + | Blood Pressure | 101/63 | 02/20/2020 7:47 AM | | | | | PDT | | + + + + + | Pulse | 73 | 02/20/2020 7:47 AM | | | | | PDT | | + + + + + | Temperature | 36.4 C (97.5 F) | 02/20/2020 7:47 AM | | | | | PDT | | + + + + + | Respiratory Rate | 16 | 02/20/2020 7:47 AM | | | | | PDT | | + + + + + | Oxygen Saturation | 100% | 02/20/2020 7:47 AM | | | | | PDT | | + + + + + | Inhaled Oxygen | - | - | | | Concentration | | | | + + + + + | Weight | 73 kg (161 lb) | 02/20/2020 7:47 AM | | | | | PDT | | + + + + + | Height | 160 cm (5' 3") | 02/20/2020 7:47 AM | | | | | PDT | | + + + + + | Body Mass Index | 28.52 | 02/20/2020 7:47 AM | | | | | PDT [...] +---------+ + + | busPIRone (BUSPAR) | Take 1 tablet by | 30 | 2 | 12/08/19 | | | 5 mg tablet | mouth 3 times daily | tablet | | 20 | 0 | | | as needed. For | | | | | | | anxiety | | | | | + + + +---------+ + + | dilTIAZem | Take 1 tablet by | 8 | 0 | 11/22/19 | | | (CARDIZEM) 60 mg | mouth 4 times daily. | tablet | | 20 | 0 | | tablet | | | | | | + + + +---------+ + + | diphenhydrAMINE | Take 25 mg by mouth | | 0 | | | | (BENADRYL) 25 mg | every 6 hours as | | | | 0 | | tablet | needed for Itching. | | | | | + + + +---------+ + + | fluconazole | Take 1 tablet by | 21 | 0 | 02/20/20 | | | (DIFLUCAN) 100 mg | mouth Daily for 21 | tablet | | 20 | 0 | | tabletIndications: | days. | | | | | | Candidiasis, | | | | | | | esophageal (HCC) | | | | | | + + + +---------+ + + documented as of this encounter H&P Notes Nishant Snow MD - 02/20/2020 8:09 AM PDT PRE-ENDOSCOPY HISTORY AND PRE-SEDATION ASSESSMENT PATIENT NAME: Cherrie Quijano : 1960 TODAY'S DATE: 02/20/2020 PLANNED PROCEDURE: EGD PERTINENT HISTORY/INDICATION FOR PROCEDURE: Cherrie Quijano is a 59 y.o. female who is undergoing EGD for dysphagia, here for dilation. 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 Has had 51fr savary dilation 11/30/2017 for ring at [facility] that she says helped with h er dysphagia. Recent mano showed EGJOO Mid esophageal biopsied prev normal. 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 new diagnosis [...] disorder Tertiary contraction of esophagus Esophageal dysphagia PAST SURGICAL HISTORY Past Surgical History: Procedure Laterality Date GASTRIC MANOMETRY N/A 01/31/2020 Procedure: MANOMETRY ESOPHAGEAL; Surgeon: Nishant Snow MD; Location: [facility] GI MANOMETRY 02/05/2020 UPPER GASTROINTESTINAL ENDOSCOPY N/A 11/30/2017 Procedure: EGD; Surgeon: Loi Hui MD; Location: [facility] UPPER GASTROINTESTINAL ENDOSCOPY N/A 04/05/2019 Procedure: EGD; Surgeon: Loi Hui MD; Location: [facility] UPPER GASTROINTESTINAL ENDOSCOPY N/A 09/06/2019 Procedure: EGD; Surgeon: Rodriguez Gómez MD; Location: [facility] VEIN SURGERY HOME MEDS: [...] as needed. busPIRone (BUSPAR) 5 mg tablet Take 1 tablet by mouth 3 times daily as needed. For anxi ety 30 tablet 2 Cyanocobalamin (B-12 PO) Take 1 tablet by mouth Daily. dilTIAZem (CARDIZEM) 60 mg tablet Take 1 tablet by mouth 4 times daily. 8 tablet 0 diphenhydrAMINE (BENADRYL) 25 mg tablet Take 25 mg by mouth every 6 hours as needed for Itching. ibuprofen (ADVIL, MOTRIN) 200 mg tablet Take 400 mg by mouth every 6 hours as needed fo r Pain. Multiple Vitamin (MULTI-VITAMIN PO) Take 1 tablet by mouth Daily. non-formulary medication Take 2 tablets by mouth Daily. [employer] supplement pantoprazole (PROTONIX) 40 mg tablet Take 1 tablet by mouth every morning (before break fast). 30 tablet 8 UNABLE TO FIND Take 1-2 capsules by mouth Daily. Focus Factor ALLERGIES No Known Allergies Mallampati Class 2 (upper half of tonsil fossa) [place] [employer] Anesthesia Grade:ASA 3 - A patient with severe systemic disease Sedation Plan: Monitored anesthesia care EXAMINATION: BP 101/63 | Pulse 73 | Temp 36.4 C (97.5 F) (Temporal) | Resp 16 | Ht 1.6 m (5' 3") | Wt 73 kg (161 lb) | LMP (LMP Unknown) | SpO2 100% | No | BMI 28.52 kg /m General: Alert and oriented Throat: Normal Lungs: [...] above. Electronically Signed by: Nishant Snow MD 02/20/2020 [facility] VERIFICATION OF CONSENT (PARQ) The patient counseled regarding the procedure, its indications, risks, potential complicati ons and alternatives. Any questions were answered. Consent was obtained. Nishant Snow MD, 02/20/2020 8:09 AM [facility] Portions of this chart may have been created with [employer] voice recognition software. Occasi onal wrong-word or sound-alike substitutions may have occurred due to the inherent shannon itations of voice recognition software. Please read the chart carefully and recognize, using context, where these substitutions have occurred documented in thi s encounter Miscellaneous Notes D-C Instructions Provation - Nishant Snow MD - 02/20/2020 7:59 AM PDTDischarge Ins tructions for Upper Endoscopy Patient: Cherrie Quijano : 1960 Acct: [id number] Exam Date: Thursday, February 20, 2020 Doctor: NISHANT SNOW MD The chances [...] If unable to reach your physician, call [facility] Emergency Department at Ext. [phone] Your doctor recommends these additional instructions: Resume your regular diet. Take Diflucan (fluconazole) 100 mg by mouth once a day for three weeks. Your physician has recommended a repeat upper endoscopy in three years for surveillance. Return to your referring physician as previously scheduled. These instructions have been explained to the patient and/or escort. A copy has been given to the patient/escort. Nurse Signature Patient Signature Escort Signature Date NISHANT SNOW MD 02/20/2020 8:36:02 AM This report has been signed electronically. documented in this encounter Plan of Treatment Not on filedocumented as of this encounter Procedures + +--------+ + + + | Procedure Name | Priori | Date/Time | Associated Diagnosis | Comments | | | ty | | | | + +--------+ + + + | CULTURE, YEAST, | Routin | 02/20/2020 | | Results for this | | SMEAR | e | 8:26 AM | | procedure are in the | | | | PDT | | results section. | + +--------+ + + + | EGD | | 02/20/2020 | Esophageal | | | | | 8:08 AM | dysphagia Seizure | | | | | PDT | (HCC) | | + +--------+ + + + | *TERMED* AR UPPER GI | Routin | 02/20/2020 | | Results for this | | ENDOSCOPY,EXAM | e | 7:59 AM | | procedure are in the | | | | PDT | | results section. | + +--------+ + + + documented in this encounter Results Culture, Yeast, Smear (02/20/2020 8:26 AM PDT) + + + + + + | Component | Value | Ref Range | Performed | Pathologist | | | | | At | Signature | + + + + + + | Culture | 3+ Esme | | [facility] | | | | albicansComment: No | | [facility] | | | | sensitivities performed. | | MEDICAL | | | | | | CENTER - | | | | | | LABORATORY | | + + + + + + | [facility] Prep | No white blood cells | | [facility] | | | | (PMNs) seen | | [facility] | | | | | | MEDICAL | | | | | | CENTER - | | | | | | LABORATORY | | + + + + + + | [facility] Prep | 2+ Epithelial cells | | [facility] | | | | | | [facility] | | | | | | MEDICAL | | | | | | CENTER - | | | | | | LABORATORY | | + + + + + + | [facility] Prep | 1+ Gram positive cocci | | [facility] | | | | | | [facility] | | | | | | MEDICAL | | | | | | CENTER - | | | | | | LABORATORY | | + + + + + + | [facility] Prep | 1+ Gram positive bacilli | | [facility] | | | | | | [facility] | | | | | | MEDICAL | | | | | | CENTER - | | | | | | LABORATORY | | + + + + + + | [facility] Prep | No yeast seen | | [facility] | | | | | | [facility] | | | | | | MEDICAL | | | | | | CENTER - | | | | | | LABORATORY | | + + + + + + + + | Specimen | + + | Tissue - Specimen | | from esophagus | | (specimen) | + + + + + + + | Performing | Address | City/State/Zipcode | Phone Number | | Organization | | | | + + + + + | [facility] | [address] | [place] | [phone] | | [facility] | | [address] | | | - LABORATORY | | | | + + + + + EGD (02/20/2020 7:59 AM PDT) + + | Specimen | + + | | + + + + + | Narrative | Performed At | + + + | [facility] | [facility] | | [facility]Patient Name: [facility] | [place] | | DawnProcedure Date: 02/20/2020 7:59 AMMRN: [id number] Number: | | | [id number] of : 1960Note Status: FinalizedAttending | | | MD: NISHANT SNOW , [facility]cedure Type: Upper GI | | | endoscopyIndications: DysphagiaReferring MD: | | | James Farmer MD (Referring MD), Ava | | | KELLY Chi (Referring )Medicines: | | | Monitored Anesthesia CareComplications: | | | No immediate complications.Procedure: Pre-Anesthesia | | | Assessment: - Prior to the procedure, a History and Physical was | | | performed, and patient medications and allergies were | | | reviewed. The patient is competent. The risks and benefits of | | | the procedure and the sedation options and risks were discussed | | | with the patient. All questions were answered and informed | | | consent was obtained. Patient identification and proposed | | | procedure were verified by the physician, the nurse and the | | | anesthesiologist in the pre-procedure area in the procedure [...] III - A patient with severe systemic disease. | | | After reviewing the risks and benefits, the patient was deemed in | | | satisfactory condition to undergo the procedure. The anesthesia | | | plan was to use monitored anesthesia care (MAC). Immediately | | | prior to administration of medications, the patient was | | | re-assessed for adequacy to receive sedatives. The heart rate, | | | respiratory rate, oxygen saturations, blood pressure, adequacy | | | of pulmonary ventilation, and response to care were monitored | | | throughout the procedure. The physical status of the patient | | | was re-assessed after the procedure. After obtaining informed | | | consent, the endoscope was passed under direct [...] | Blood Loss: Estimated blood loss: none.Findings: Diffuse, | | | white plaques were found in the entire esophagus. Cells for | | | cytology were obtained by brushing. Esophagogastric landmarks | | | were identified: the Z-line was found at 33 cm, the upper | | | extent of the gastric folds was found at 36 cm and the site of | | | hiatal narrowing was found at 36 cm from the incisors. The | | | esophagus and gastroesophageal junction were examined with white | | | light and the [employer] Intelligent Chromo Endoscopy (FICE) system. | | | There were esophageal mucosal changes classified as Lim's | | | stage C2-M3 per [place] criteria. These changes involved the | | | mucosa at the upper extent of the gastric folds (36 cm from the | | | incisors) extending to the Z-line (33 cm from the incisors). | | | The maximum longitudinal extent of these esophageal mucosal | | | changes was 3 cm in length. One benign-appearing, intrinsic mild | | | stenosis was found 35 cm from the incisors. This stenosis | | | measured 1.7 cm (inner diameter) x 1 cm (in length). The | | | stenosis was traversed. A TTS dilator was passed through the | | | scope. Dilation with a 15-16.5-18 mm balloon dilator was performed | | | to 18 mm. The dilation site was examined and showed no change. | | | The gastroesophageal flap valve was visualized endoscopically and | | | classified as Hill Grade II (fold present, opens with | | | respiration). The entire examined stomach was normal. | | | Retroflexion in the stomach confirmed the above findings. The | | | duodenal bulb and second portion of the duodenum were | | | normal.Impression: - Esophageal plaques were found, consistent | | | with candidiasis. Cells for culture obtained. - | | | Esophagogastric landmarks identified. - Esophageal mucosal | | | changes classified as Lim's stage C2-M3 per [place] | | | criteria. Recently biopsied. - Benign-appearing esophageal | | | stenosis. Dilated to 18mm. Dilator pulled proximally through | | | entire length of esophagus without additional points of | | | resistance. There was only mild resistance at the stenosis, this | | | stenosis is unlikely to be the source/cause for her dysphagia. | | | Suspect that candidiasis is contributing more. - | | | Gastroesophageal flap valve classified as Hill Grade II (fold present, | | | opens with respiration). - Normal stomach. - | | | Normal duodenal bulb and second portion of the | | | duodenum.Recommendation: - The patient will be observed | | | post-procedure, until all discharge criteria are met. - | | | Resume regular diet. - Diflucan (fluconazole) 100 mg PO daily | | | for 3 weeks. - Repeat upper endoscopy in 3 years for | | | surveillance. - Return to referring physician as previously | | | scheduled.NISHANT SNOW MD02/20/2020 8:36:02 AMThis report has | | | been signed electronically.Note Initiated On: 02/20/2020 7:59 AMNumber | | | of Addenda: 0 [facility] | | | criteria are met. | | | - Resume regular diet. | | | - Diflucan (fluconazole) 100 mg PO daily for 3 weeks. | | | - Repeat upper endoscopy in 3 years for surveillance. | | | - Return to referring physician as previously scheduled. | | |NISHANT SNOW MD | | |02/20/2020 8:36:02 AM | | |This report has been signed electronically. | | |Note Initiated On: 02/20/2020 7:59 AM | | |Number of Addenda: 0 | | | [facility] | | + + + + +---------+ + + | Performing | Address | City/State[facility] | Phone Number | | Organization | | | | + +---------+ + + | [facility] | | | | + +---------+ + + documented in this encounter Visit Diagnoses + + | Diagnosis | + + | Esophageal dysphagia Dysphagia, pharyngoesophageal phase | + + | Seizure (HCC) Other convulsions | + + documented in this encounter Admitting Diagnoses + + | Diagnosis | + + | Esophageal dysphagia Dysphagia, pharyngoesophageal phase | + + | Seizure (HCC) Other convulsions | + + documented in this encounter Administered Medications + +--------+---------+------+------+------+ | Medication Order | MAR | Action | Dose | Rate | Site | | | Action | Date | | | | + +--------+---------+------+------+------+ + +---+ | dextrose 50% injection 12.5-25 | | | g 12.5-25 g, Intravenous, EVERY | | | 15 MIN PRN, Low Blood Sugar, Give | | | 12.5g (25 mL) IV if blood | | | glucose 50-69 mg/dL. Give 25g | | | (50 mL) IV if blood glucose < 50, | | | Starting Wed02/20/20 at 0725, | | | Repeat in 15 min if blood glucose | | | remains < 70 mg/dL. Repeat | | | blood glucose in 30 min once | | | blood glucose > 70., Pre-op | | + +---+ | | | + +---+ + + + +---+---+---+ | lactated ringers (LR) infusion | Continue | 02/20/20 | | | | | at 100 mL/hr, Intravenous, | d by | 20 8:09 | | | | | CONTINUOUS, Starting 02/20/20 | Anesthes | AM PDT | | | | | at 0745, Pre-op | ia | | | | | + + + +---+---+---+ +---------+ +---+-------+---+ | New Bag | 02/20/20 | | 100 | | | | 20 7:37 | | mL/hr | | | | AM PDT | | | | +---------+ +---+-------+---+ + +---+ | | | + +---+ | lactated ringers (LR) infusion | | | at 10-100 mL/hr, Intravenous, | | | CONTINUOUS, Starting 02/20/20 | | | at 0745, TKO., Pre-op | | + +---+ | | | + +---+ documented in this encounter
--- OUTSIDE RECORDS SUMMARY | ~2020-05-16 | XMS | Encounter Summary ---
Demographics + + + | Address | [address] | | | [place] [address] | + + + | Home Phone | | + + + | Preferred Language | Unknown | + + + | Marital Status | Single | + + + | Spiritism Affiliation | 1013 | + + + | Race | Unknown | + + + | Ethnic Group | Unknown | + + + Author + + + | Author | [facility] | | | and [place] | + + + | Organization | [facility] | | | and [...] Team Providers + +------+ + | Care Substance Abuse Clinician Name | Role | Phone | + +------+ + | James Farmer MD | PCP | | + +------+ + Reason for Visit + + + | Reason | Comments | + + + | Dysphagia | | + + + | Shortness of Breath | | + + + Encounter Details +--------+ + + + + | Date | Type | Department | Care Team | Description | +--------+ + + + + | 03/11/ | Emergency | [facility] | Kam Brito MD | Dysphagia, | | 2019 - | | [facility] | [address] | unspecified type | | | | CENTER [address] | [place] | (Primary Dx) | | 03/12/ | | [place] | [id number] | | | 2019 | | [id number] | | | | | | [phone] | | | +--------+ + + + [...] + + + | Blood Pressure | 109/64 | 03/12/2020 1:32 AM | | | | | PDT | | + + + + + | Pulse | 69 | 03/12/2020 1:32 AM | Simultaneous filing. | | | | PDT | User may not have | | | | | seen previous data. | + + + + + | Temperature | 36.2 C (97.2 F) | 03/12/2020 12:41 AM | | | | | PDT | | + + + + + | Respiratory Rate | 16 | 03/12/2020 1:32 AM | | | | | PDT | | + + + + + | Oxygen Saturation | 99% | 03/12/2020 1:32 AM | | | | | PDT | | + + + + + | Inhaled Oxygen | - | - | | | Concentration | | | | + + + + + | Weight | 76.2 kg (167 lb 15.9 | 03/11/2020 11:13 PM | | | | oz) | PDT | | + + + + + | Height | 162.6 cm (5' 4") | 03/11/2020 11:13 PM | | | | | PDT | | + + + + + | Body Mass Index | 28.84 | 03/11/2020 11:13 PM | | | | | PDT | | + + + + + documented in this encounter Discharge Instructions Instructions Kam Brito MD - 03/12/2020Follow up with Dr. Arceo for more recommendations . Return for worsening symptoms. AttachmentsThe following attachments cannot be sent through Care Everywhere.Dysphagia Diet, Liquids in a (Yi)documented in this encounter Medications at Time of [...] +---------+ + + | fluconazole | Take 2 tablets by | 14 | 0 | 03/12/20 | | | (DIFLUCAN) 100 mg | mouth Daily for 7 | tablet | | 20 | 0 | | tablet | days. | | | | | + + [...] + + documented as of this encounter ED Notes Sadaf Fishman RN - 03/12/2020 1:28 AM PDTPt ambulated to bathroom and back without a ssistance. Silva Almendarez RN - 03/12/2020 1:[address] Ruiz Starr RN - 03/11/2020 11:15 PM PDTPT presents to E D for evaluation of dysphagia, SOB, headache, and non-productive cough. Pt also reports pos t nasal drip. Pt denies any fever, chills, nausea, or vomiting. Pt states she had an esoph ageal dilation at the end of january. Reports significant SOB and cough starting last Wednesday. Kam Rodgers MD - 11:08 PM PDT [facility] Cherrie Quijano Emergency Department Encounter Note [address] [place] [id number] PCP:James Farmer MD [phone] CHIEF COMPLAINT: Chief Complaint Patient presents with Dysphagia Shortness of Breath ED Room: ED10/ED10 HPI Cherrie Quijano is a 59 y.o. female who presents to the Emergency Department who presents wi th chief complaint of dysphagia. Patient has been having dysphagia for the past several mon ths. She had an EGD which showed a stricture and candidiasis. Patient has been on fluconaz ole 100 mg since the EGD. Patient has noticed some minimal improvement symptoms. She has b een compliant with her medications. She has 1 dose of fluconazole left. She is very frustr ated that she has only been able to eat liquids. She denies any fevers or chills. No chest pain or shortness of breath. Denies any diarrhea constipation. 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 GI MANOMETRY 02/05/2020 UPPER GASTROINTESTINAL ENDOSCOPY N/A 11/30/2017 Procedure: EGD; Surgeon: Loi Hui MD; Location: [facility] PROC[facility] UPPER GASTROINTESTINAL ENDOSCOPY N/A 04/05/2019 Procedure: EGD; Surgeon: Loi Hui MD; Location: [facility] PROC[facility] UPPER GASTROINTESTINAL ENDOSCOPY N/A 09/06/2019 Procedure: EGD; Surgeon: Rodriguez Gómez MD; Location: [facility] PROC[facility]URE [facility] UPPER GASTROINTESTINAL ENDOSCOPY N/A 02/20/2020 Procedure: EGD; Surgeon: Nishant Arceo MD; Location: 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 benzonatate (TESSALON) 200 MG capsule Take 1 capsule by mouth 3 times daily as needed f or Cough. bismuth subsalicylate (PEPTO BISMOL) 262 mg chewable tablet Take 524 mg by mouth Daily as needed. busPIRone (BUSPAR) 5 mg tablet Take 1 tablet by mouth 3 times daily as needed. For anxi ety Cyanocobalamin (B-12 PO) Take 1 tablet by mouth Daily. dilTIAZem (CARDIZEM) 60 mg tablet TAKE ONE TABLET BY MOUTH FOUR TIMES DAILY diphenhydrAMINE (BENADRYL) 25 mg tablet Take 25 mg by mouth every 6 hours as needed for Itching. fluconazole (DIFLUCAN) 100 mg tablet Take 1 tablet by mouth Daily for 21 days. ibuprofen (ADVIL, MOTRIN) 200 mg tablet Take 400 mg by mouth every 6 hours as needed fo r Pain. Multiple Vitamin (MULTI-VITAMIN PO) Take 1 tablet by mouth Daily. non-formulary medication Take 2 tablets by mouth Daily. Super Energy supplement pantoprazole (PROTONIX) 40 mg tablet Take 1 tablet by mouth every morning (before break fast). UNABLE TO FIND Take 1-2 capsules by mouth Daily. Focus Factor ALLERGIES No Known Allergies FAMILY AND SOCIAL HISTORY Family History Problem Relation Age of Onset Heart disease Paternal Grandmother Heart attack Paternal Grandmother High blood pressure Paternal Grandmother Diabetes Paternal Grandfather Depression Paternal Grandfather Social History Socioeconomic History Marital status: Single Spouse name: Not on file Number of children: Not on file Years of education: Not on file Highest education level: Not on file Tobacco Use Smoking status: Never Smoker Smokeless tobacco: Never Used Substance and Sexual Activity Alcohol use: No Alcohol/week: 0.0 standard drinks Drug use: Never REVIEW OF SYSTEMS As in history of present illness. A 10 system review was otherwise negative. PHYSICAL EXAM VITAL SIGNS: (first vital signs):Temp: 37.2 C (98.9 F) Pulse: 72 Resp: 16 SpO2: 97 % BP : 114/68 Body mass index is 28.84 kg/m. Constitutional: female patient, no acute distress sitting down comfortably HEENT: Atraumatic, PERRL, Oropharynx benign. Neck: Supple with full range of motion. Respiratory: Good air movement bilaterally. No wheezes, No, rales. Cardiovascular: Normal S1 S2 Abdomen: Soft, nontender, nondistended, no CVA tenderness Extremities: Nontender. No lower extremity edema, no calf asymmetry. Present distal pulse s. Skin: Warm, Dry, No rashes Neurologic: Alert & oriented. No focal deficits., Speech normal, gait not tested Psychiatric: Normal mood, affect and judgement. EKG 12-lead EKG shows LABS Results for orders placed or performed during the hospital encounter of 03/11/20 CBC with Differential Result Value Ref Range WBC 6.4 4.0 - 11.0 K/uL RBC 4.12 3.70 - 5.20 M/uL Hemoglobin 11.7 11.5 - 16.0 g/dL Hematocrit 34.7 34.0 - 47.0 % MCV 84.2 83.0 - 101.0 fL MCH 28.4 28.0 - 35.0 pg MCHC 33.7 32.0 - 36.0 g/dL RDW-CV 12.7 <15.0 % RDW-SD 38.6 35.1 - 46.3 fL Platelet Count 255 140 - 440 K/uL MPV 9.2 6.5 - 12.4 fL % Neutrophils 60.3 45.0 - 82.0 % % Lymphocytes 31.1 20.0 - 45.0 % % Monocytes 5.5 4.0 - 12.0 % % Eosinophils 1.7 0.0 - 5.0 % % Basophils 1.1 (H) 0.0 - 1.0 % % Immature Granulocytes 0.3 0.0 - 0.4 % Absolute Neutrophils 3.86 1.80 - 8.50 K/uL Absolute Lymphocytes 1.99 0.60 - 3.20 K/uL Absolute Monocytes 0.35 0.00 - 1.00 K/uL Absolute Eosinophils 0.11 0.00 - 0.40 K/uL Absolute Basophils 0.07 0.00 - 0.10 K/uL Absolute Immature Granulocytes 0.02 0.00 - 0.03 K/uL % nRBC 0 0 - 2 per 100 WBCs Absolute nRBC 0.00 0.00 - 0.01 K/uL Comprehensive Metabolic Panel Result Value Ref Range Na 134 (L) 136 - 145 mmol/L K 3.6 3.4 - 5.1 mmol/L Cl 98 98 - 107 mmol/L CO2 29 20 - 31 mmol/L Anion Gap 7 3 - 16 mmol/L Glucose 116 (H) 60 - 106 mg/dL BUN 8 (L) 9 - 23 mg/dL Creatinine 0.84 0.55 - 1.02 mg/dL eGFR if not >60 >=60 mL/min/1.73m2 Calcium 9.8 8.7 - 10.4 mg/dL Albumin 4.5 3.2 - 4.8 g/dL Bilirubin Total 0.4 0.3 - 1.2 mg/dL Total Protein 7.1 5.7 - 8.2 g/dL AST 29 0 - 34 U/L ALT 29 10 - 49 U/L Alkaline Phosphatase 117 (H) 46 - 116 U/L Globulin 2.6 2.1 - 3.8 g/dL Albumin/Globulin Ratio 1.7 0.8 - 1.9 BUN/Creatinine Ratio 9.5 Extra Blue Top Tube Result Value Ref Range Extra Blue Top Tube Done Extra Lavender Top Tube Result Value Ref Range Extra Lavender Top Tube Done Extra Green Top Tube Result Value Ref Range Extra Green Top Tube Done Extra Gold Top Tube Result Value Ref Range Extra Gold Top Tube Done IMAGING STUDIES (X-Rays interpreted by ED Physician) This x-ray was unremarkable CT CHEST WITHOUT CONTRAST CLINICAL INFORMATION: Cough and dysphagia. COMPARISON: XR CHEST PA AND LATERAL (03/04/2018); XR CHEST AP PORTABLE (07/22/2017); PROCEDURE: Axial images through the chest. Multiplanar reconstructions. At least one of the following CT dose optimization techniques were used: Automated exposure control; Adjustment of mA and/or kV according to patient size; Use of iterative reconstruction technique. FINDINGS: Lungs, Pleura and Airways: Calcified granuloma in the right upper lobe. No significant pulmonary abnormality. No airway narrowing or obstruction. No pleural effusion or pneumothorax. Mediastinum: Main pulmonary artery is dilated measuring 3.8 cm in diameter. No aortic aneurysm. No esophageal abnormality. No pericardial effusion. Lymph Nodes: No adenopathy. Upper Abdomen: No significant abnormality in the visualized upper abdomen. BODY WALL Soft Tissues: The soft tissues of the chest wall are unremarkable. Bones: No acute fracture or vertebral end plate destruction. No lytic or blastic lesion. Report sent:03/12/2020 2:23:52 AM IMPRESSION: 1. No acute intrathoracic findings. 2. Dilated main pulmonary artery measuring up to 3.8 cm in diameter which can be seen in setting of pulmonary artery hypertension. Signed by: Adair Andrade Jace Sign Date/Time: 03/12/2020 2:23 AM ED COURSE & MEDICAL DECISION MAKING Pertinent Labs & Imaging studies were reviewed along with EMS notes and prison record s if applicable. (See chart for details) Medications and Allergy list reviewed. Nurses note and old records were reviewed The patient was seen and examined, Patient is a 59-year-old female who presents with ongoing dysphasia. This is been ongoing for the past month. She had an EGD which showed candidiasis and a stricture. Thought that dysphagia was most likely due to candidiasis. She has been on fluconazole 100 mg since onse t. Has not had a CT scan of the chest. I would expected the dysphagia to improve given melonie atment with fluconazole. CT scan of the chest was unremarkable. Blood work was reassuring. I will increase her dose to 200 mg of fluconazole. Encouraged her to follow-up with GI fo r further recommendations. She was no acute distress here. Vital signs were stable. Main complaint was essentially being really frustrated that her symptoms had not improved. Last Set of Vital Signs: Temp: 36.2 C (97.2 F) Pulse: 69(Simultaneous filing. User may not have seen previous data.) Resp: 16 SpO2: 99 % BP: 109/64 FINAL IMPRESSION ICD-10-CM ICD-9-CM 1. Dysphagia, unspecified type R13.10 787.20 Follow-up Information Schedule an appointment as soon as possible for a visit with James Farmer MD. Specialty: Internal Medicine Contact information: [address] [facility] [id number] [facility]. Specialty: Emergency Medicine Why: If symptoms worsen Contact information: [address] [facility] [address] New Prescriptions FLUCONAZOLE (DIFLUCAN) 100 MG TABLET Take 2 tablets by mouth Daily for 7 days. Kam Brito MD 03/12/20 0243 documented in this encou nter Plan of Treatment Not on filedocumented as of this encounter Procedures + +--------+ + + + | Procedure Name | Priori | Date/Time | Associated Diagnosis | Comments | | | ty | | | | + +--------+ + + + | CT CHEST WO CONTRAST | STAT | 03/12/2020 | | Results for this | | | | 1:09 AM | | procedure are in the | | | | PDT | | results section. | + +--------+ + + + | EXTRA LAVENDER TOP | STAT | 03/11/2020 | | Results for this | | TUBE | | 11:49 PM | | procedure are in the | | | | PDT | | results section. | + +--------+ + + + | EXTRA GREEN TOP TUBE | STAT | 03/11/2020 | | Results for this | | | | 11:49 PM | | procedure are in the | | | | PDT | | results section. | + +--------+ + + + | EXTRA GOLD TOP TUBE | STAT | 03/11/2020 | | Results for this | | | | 11:49 PM | | procedure are in the | | | | PDT | | results section. | + +--------+ + + + | EXTRA BLUE TOP TUBE | STAT | 03/11/2020 | | Results for this | | | | 11:49 PM | | procedure are in the | | | | PDT | | results section. | + +--------+ + + + | CBC WITH | STAT | 03/11/2020 | | Results for this | | DIFFERENTIAL | | 11:49 PM | | procedure are in the | | | | PDT | | results section. | + +--------+ + + + | COMPREHENSIVE | STAT | 03/11/2020 | | Results for this | | METABOLIC PANEL | | 11:49 PM | | procedure are in the | | | | PDT | | results section. | + +--------+ + + + | XR CHEST AP PORTABLE | STAT | 03/11/2020 | | Results for this | | | | 11:40 PM | | procedure are in the | | | | PDT | | results section. | + +--------+ + + + documented in this encounter Results CT Chest wo Contrast (03/12/2020 1:09 AM PDT) + + | Specimen | + + | | + + + + + | Narrative | Performed At | + + + | CT CHEST WO CONTRAST 03/12/2020 1:09 AM CLINICAL INFORMATION: | [facility] | | Cough and dysphagia. COMPARISON: XR CHEST PA AND LATERAL | | | (03/04/2018); XR CHEST AP PORTABLE (07/22/2017); PROCEDURE: Axial | | | images through the chest. Multiplanar reconstructions. At least | | | one of the following CT dose optimization techniques were used: | | | Automated exposure control; Adjustment of mA and/or kV according to | | | patient size; Use of iterative reconstruction technique. FINDINGS: | | | Lungs, Pleura and Airways: Calcified granuloma in the right upper | | | lobe. No significant pulmonary abnormality. No airway narrowing or | | | obstruction. No pleural effusion or pneumothorax. Mediastinum: Main | | | pulmonary artery is dilated measuring 3.8 cm in diameter. Ectasia | | | of the same thoracic aorta measuring 4.2 cm. No esophageal | | | abnormality. No pericardial effusion. Lymph Nodes: No adenopathy. | | | Upper Abdomen: No significant abnormality in the visualized upper | | | abdomen. BODY WALL Soft Tissues: The soft tissues of the chest | | | wall are unremarkable. Bones: No acute fracture or vertebral end | | | plate destruction. No lytic or blastic lesion. IMPRESSION- 1. | | | No acute intrathoracic findings. 2. Dilated main pulmonary artery | | | measuring up to 3.8 cm in diameter which can be seen in setting of | | | pulmonary artery hypertension. 3. Ectasia of ascending thoracic aorta | | | measuring 4.2 cm. A preliminary report was sent by [employer] | | | with no significant discrepancy on 03/12/2020 2:23 AM. Dictated | | | and Signed by: Bear Bryant MD Electronically signed: 03/12/2020 | | | 8:14 AM | | + + + + + | Procedure Note | + + | Manohar, Rad Results In - 03/12/2020 8:[address] CHEST WO CONTRAST 03/12/2020 1:09 AM | | | | CLINICAL INFORMATION: | | Cough and dysphagia. | | | | COMPARISON: | | XR CHEST PA AND LATERAL (03/04/2018); XR CHEST AP PORTABLE (07/22/2017); | | | | PROCEDURE: | | Axial images through the chest. Multiplanar reconstructions. | | | | At least one of the following CT dose optimization techniques were | | used: Automated exposure control; Adjustment of mA and/or kV according | | to patient size; Use of iterative reconstruction technique. | | | | FINDINGS: | | Lungs, Pleura and Airways: Calcified granuloma in the right upper lobe. | | No significant pulmonary abnormality. No airway narrowing or | | obstruction. No pleural effusion or pneumothorax. | | Mediastinum: Main pulmonary artery is dilated measuring 3.8 cm in | | diameter. Ectasia of the same thoracic aorta measuring 4.2 cm. No esophageal | | abnormality. No | | pericardial effusion. | | Lymph Nodes: No adenopathy. | | Upper Abdomen: No significant abnormality in the visualized upper | | abdomen. | | | | BODY WALL | | Soft Tissues: The soft tissues of the chest wall are unremarkable. | | Bones: No acute fracture or vertebral end plate destruction. No lytic | | or blastic lesion. | | | | IMPRESSION- | | 1. No acute intrathoracic findings. | | 2. Dilated main pulmonary artery measuring up to 3.8 cm in diameter | | which can be seen in setting of pulmonary artery hypertension. | | 3. Ectasia of ascending thoracic aorta measuring 4.2 cm. | | | | A preliminary report was sent by [employer] with no significant discrepancy | | on 03/12/2020 2:23 AM. | | | | Dictated and Signed by: Bear Bryant MD | | Electronically signed: 03/12/2020 8:14 AM | + + + +---------+ + + | Performing | Address | City/State/Zipcode | Phone Number | | Organization | | | | + +---------+ + + | [facility] | | | | + +---------+ + + Extra Gold Top Tube (03/11/2020 11:49 PM PDT) + +-------+ + + + | Component | Value | Ref Range | Performed | Pathologist | | | | | At | Signature | + +-------+ + + + | Extra Gold | Done | | [facility] | | | Top Tube | | | [facility] | | [address] | [place] | [phone] | | [facility] | | [address] | | | - LABORATORY | | | | + + + + + Extra Green Top Tube (03/11/2020 11:49 PM PDT) + +-------+ + + + | Component | Value | Ref Range | Performed | Pathologist | | | | | At | Signature | + +-------+ + + + | Extra Green | Done | | [facility] | | | Top Tube | | | [facility] | | [...] + + | [facility] | [address] | [place] | [phone] | | [facility] | | [address] | | | - LABORATORY | | | | + + + + + Extra Lavender Top Tube (03/11/2020 11:49 PM PDT) + +-------+ + + + | Component | Value | Ref Range | Performed | Pathologist | | | | | At | Signature | + +-------+ + + + | Extra | Done | | [facility] | | | Lavender | | | [facility] | | | Top Tube | [...] + | [facility] | [address] | [place] | [phone] | | [facility] | | [address] | | | - LABORATORY | | | | + + + + + Extra Blue Top Tube (03/11/2020 11:49 PM PDT) + +-------+ + + + | Component | Value | Ref Range | Performed | Pathologist | | | | | At | Signature | + +-------+ + + + | Extra Blue | Done | | [facility] | | | Top Tube | | | [facility] | | [...] + + + + + | [facility] | [address] | [place] | [phone] | | [facility] | | [address] | | | - LABORATORY | | | | + + + + + Comprehensive Metabolic Panel (03/11/2020 11:49 PM PDT) + + + + + + | Component | Value | Ref Range | Performed | Pathologist | | | | | At | Signature | + + + + + + | Na | 134 (L) | 136 - 145 | [facility] | | | | | mmol/L | [facility] | | | | | | MEDICAL | | | | | | CENTER - | | | | | | LABORATORY | | + + + + + + | K | 3.6 | 3.4 - 5.1 | [facility] | | | | | mmol/L | [facility] | | | | | | MEDICAL | | | | | | CENTER - | | | | | | LABORATORY | | + + + + + + | Cl | 98 | 98 - 107 mmol/L | [facility] | | | | | | [facility] | | | | | | MEDICAL | | | | | | CENTER - | | | | | | LABORATORY | | + + + + + + | CO2 | 29 | 20 - 31 mmol/L | [facility] | | | | | | [facility] | | | | | | MEDICAL | | | | | | CENTER - | | | | | | LABORATORY | | + + + + + + | Anion Gap | 7 | 3 - 16 mmol/L | [facility] | | | | | | [facility] | | | | | | MEDICAL | | | | | | CENTER - | | | | | | LABORATORY | | + + + + + + | Glucose | 116 (H) | 60 - 106 mg/dL | [facility] | | | | | | [facility] | | | | | | MEDICAL | | | | | | CENTER - | | | | | | LABORATORY | | + + + + + + | BUN | 8 (L) | 9 - 23 mg/dL | [facility] | | | | | | [facility] | | | | | | MEDICAL | | | | | | CENTER - | | | | | | LABORATORY | | + + + + + + | Creatinine | 0.84 | 0.55 - 1.02 | [facility] | | | | | mg/dL | [facility] | | | | | | [facility] | | | | | | CENTER - | | | | | | LABORATORY | | + + + + + + | eGFR if not | >60Comment: GLOMERULAR | >=60 | [facility] | | | | FILTRATION | mL/min/1.73m2 | [facility] | | | [facility] | RATE,ESTIMATED | | MEDICAL | | | | mL/min/1.23o1Tosr than | | CENTER - | | [...] | | | | | mg/dL | [facility] | | | | | | MEDICAL | | | | | | CENTER - | | | | | | LABORATORY | | + + + + + + | Albumin | 4.5 | 3.2 - 4.8 g/dL | [facility] | | | | | | [facility] | | | | | | MEDICAL | | | | | | CENTER - | | | | | | LABORATORY | | + + + + + + | Bilirubin | 0.4 | 0.3 - 1.2 mg/dL | [facility] | | | Total | | | [facility] | | | | | | MEDICAL | | | | | | CENTER - | | | | | | LABORATORY | | + + + + + + | Total | 7.1 | 5.7 - 8.2 g/dL | [facility] | | | Protein | | | [facility] | | | | | | MEDICAL | | | | | | CENTER - | | | | | | LABORATORY | | + + + + + + | AST | 29 | 0 - 34 U/L | [facility] | | | | | | [facility] | | | | | | MEDICAL | | | | | | CENTER - | | | | | | LABORATORY | | + + + + + + | ALT | 29 | 10 - 49 U/L | [facility] | | | | | | [facility] | | | | | | MEDICAL | | | | | | CENTER - | | | | | | LABORATORY | | + + + + + + | Alkaline | 117 (H) | 46 - 116 U/L | [facility] | | | Phosphatase | | | [facility] | | | | | | MEDICAL | | | | | | CENTER - | | | | | | LABORATORY | | + + + + + + | Globulin | 2.6 | 2.1 - 3.8 g/dL | [facility] | | | | | | [facility] | | | | | | MEDICAL | | | | | | CENTER - | | | | | | LABORATORY | | + + + + + + | Albumin/Esther | 1.7 | 0.8 - 1.9 | [facility] | | | bulin Ratio | | | [facility] | | | | | | MEDICAL | | | | | | CENTER - | | | | | | LABORATORY | | + + + + + + | BUN/Creatin | 9.5 | | [facility] | | | ine Ratio | | | [facility] | | [...] + | [facility] | [address] | [place] | [phone] | | [facility] | | [address] | | | - LABORATORY | | | | + + + + + CBC with Differential (03/11/2020 11:49 PM PDT) + +---------+ + + + | Component | Value | Ref Range | Performed | Pathologist | | | | | At | Signature | + +---------+ + + + | WBC | 6.4 | 4.0 - 11.0 K/uL | [facility] | | | | | | [facility] | | | | | | MEDICAL | | | | | | CENTER - | | | | | | LABORATORY | | + +---------+ + + + | RBC | 4.12 | 3.70 - 5.20 | [facility] | | | | | M/uL | [facility] | | | | | | MEDICAL | | | | | | CENTER - | | | | | | LABORATORY | | + +---------+ + + + | Hemoglobin | 11.7 | 11.5 - 16.0 | [facility] | | | | | g/dL | [facility] | | | | | | MEDICAL | | | | | | CENTER - | | | | | | LABORATORY | | + +---------+ + + + | Hematocrit | 34.7 | 34.0 - 47.0 % | [facility] | | | | | | [facility] | | | | | | MEDICAL | | | | | | CENTER - | | | | | | LABORATORY | | + +---------+ + + + | MCV | 84.2 | 83.0 - 101.0 fL | [facility] | | | | | | [facility] | | | | | | MEDICAL | | | | | | CENTER - | | | | | | LABORATORY | | + +---------+ + + + | MCH | 28.4 | 28.0 - 35.0 pg | [facility] | | | | | | [facility] | | | | | | MEDICAL | | | | | | CENTER - | | | | | | LABORATORY | | + +---------+ + + + | MCHC | 33.7 | 32.0 - 36.0 | [facility] | | | | | g/dL | [facility] | | | | | | MEDICAL | | | | | | CENTER - | | | | | | LABORATORY | | + +---------+ + + + | RDW-CV | 12.7 | <15.0 % | [facility] | | | | | | [facility] | | | | | | MEDICAL | | | | | | CENTER - | | | | | | LABORATORY | | + +---------+ + + + | RDW-SD | 38.6 | 35.1 - 46.3 fL | [facility] | | | | | [facility] | | [facility] | [facility] | | | | [facility] - | | | | | | LABORATORY | | + +---------+ + + + | Platelet | 255 | 140 - 440 K/uL | [facility] | | | Count | | | [facility] | | | | | | [facility] | | | | | | [facility] - | | | | | | LABORATORY | | + +---------+ + + + | MPV | 9.2 | 6.5 - 12.4 fL | [facility] | | | | | | [facility] | | | [facility] | [facility] | | | | | | [facility] - | | | | | | LABORATORY | | + +---------+ + + + | % | 60.3 | 45.0 - 82.0 % | [facility] | | | Neutrophils | | | [facility] | | | | | | [facility] | | | | | | CENTER - | | | | | | LABORATORY | | + +---------+ + + + | % | 31.1 | 20.0 - 45.0 % | [facility] | | | Lymphocytes | | | [facility] | | | | | | [facility] | | | | | | CENTER - | | | | | | LABORATORY | | + +---------+ + + + | % Monocytes | 5.5 | 4.0 - 12.0 % | [facility] | | | | | | [facility] | | | | | | [facility] | | | | | | [facility] - | | | | | | LABORATORY | | + +---------+ + + + | % | 1.7 | 0.0 - 5.0 % | [facility] | | | Eosinophils | | | [facility] | | | | | | [facility] | | | | | | CENTER - | | | | | | LABORATORY | | + +---------+ + + + | % Basophils | 1.1 (H) | 0.0 - 1.0 % | [facility] | | | | | | [facility] | | | | | | [facility] | | | | | | [facility] - | | | | | | LABORATORY | | + +---------+ + + + | % Immature | 0.3 | 0.0 - 0.4 % | [facility] | | | Granulocyte | | | [facility] | | | s | | | MEDICAL | | | | | | CENTER - | | | | | | LABORATORY | | + +---------+ + + + | Absolute | 3.86 | 1.80 - 8.50 | [facility] | | | Neutrophils | | K/uL | [facility] | | | | | | [facility] | | | | | | CENTER - | | | | | | LABORATORY | | + +---------+ + + + | Absolute | 1.99 | 0.60 - 3.20 | [facility] | | | Lymphocytes | | K/uL | [facility] | | | | | | [facility] | | | | | | CENTER - | | | | | | LABORATORY | | + +---------+ + + + | Absolute | 0.35 | 0.00 - 1.00 | [facility] | | | Monocytes | | K/uL | [facility] | | | | | | [facility] | | | | | | CENTER - | | | | | | LABORATORY | | + +---------+ + + + | Absolute | 0.11 | 0.00 - 0.40 | [facility] | | | Eosinophils | | K/uL | [facility] | | | | | | [facility]ICAL | | | | | | CENTER - | | | | | | LABORATORY | | + +---------+ + + + | Absolute | 0.07 | 0.00 - 0.10 | [facility] | | | Basophils | | K/uL | [facility] | | | | | | [facility] | | | | | | CENTER - | | | | | | LABORATORY | | + +---------+ + + + | Absolute | 0.02 | 0.00 - 0.03 | [facility] | | | Immature | | K/uL | [facility] | | | Granulocyte | | | MEDICAL | | | s | | | CENTER - | | | | | | LABORATORY | | + +---------+ + + + | % nRBC | 0 | 0 - 2 per 100 | [facility] | | | | | WBCs | [facility] | | | | | | MEDICAL | | | | | | CENTER - | | | | | | LABORATORY | | + +---------+ + + + | Absolute | 0.00 | 0.00 - 0.01 | [facility] | | | nRBC | | K/uL | [facility] | | | | [...] ST. | [address] | [place], [place] | [phone] | | [facility] | | [id number] | | | - LABORATORY | | | | + + + + + XR Chest AP Portable (03/11/2020 11:40 PM PDT) + + | Specimen | + + | | + + + + + | Impressions | Performed At | + + + | Findings suggest pulmonary venous congestion. Dictated and | [facility] | | Signed by: Rodriguez Keith MD Electronically signed: 03/12/2020 | | | 7:46 AM | | + + + + + + | Narrative | Performed At | + + + | EXAM: XR CHEST AP PORTABLE dated 03/11/2020 11:40 PM HISTORY: | [facility] | | DYSPHAGIA SHORTNESS OF BREATH Comparison: 03/04/2018 | | | TECHNIQUE: A single portable view of the chest. FINDINGS: The | | | lungs are symmetrically aerated. They are clear. Prominent | | | pulmonary vasculature. There are no large pleural effusions. | | | There is no pneumothorax. Borderline cardiomegaly. No acute | | | osseous abnormalities. | | + + + + + | Procedure Note | + + | Manohar, Rad Results In - 03/12/2020 7:49 AM PDT EXAM: XR CHEST AP PORTABLE dated | | 03/11/2020 11:40 PMHISTORY: DYSPHAGIASHORTNESS OF BREATHComparison: 03/04/2018TECHNIQUE: A | | single portable view of the chest.FINDINGS:The lungs are symmetrically aerated. They | | are clear. Prominent pulmonaryvasculature. There are no large pleural effusions. | | There is no pneumothorax. Borderline cardiomegaly. No acute osseous abnormalities. | | IMPRESSION: Findings suggest pulmonary venous congestion.Dictated and Signed by: Rodriguez Jane | | MD Inna Electronically signed: 03/12/2020 7:46 AM | |TECHNIQUE: A single portable view of the chest. | | | |FINDINGS: | | | |The lungs are symmetrically aerated. They are clear. Prominent pulmonary | |vasculature. There are no large pleural effusions. There is no pneumothorax. | |Borderline cardiomegaly. No acute osseous abnormalities. | | | |IMPRESSION: | | | |Findings suggest pulmonary venous congestion. | | | |Dictated and Signed by: Rodriguez Keith MD | | Electronically signed: 03/12/2020 7:46 AM | + + + +---------+ + + [...] documented in this encounter Administered Medications + +---------+ +--------+-------+------+ | Medication Order | MAR | Action | Dose | Rate | Site | | | Action | Date | | | | + +---------+ +--------+-------+------+ | sodium chloride 0.9% (NS) bolus | New Bag | 03/12/20 | 1,000 | 2000 | | | 1,000 mL 1,000 mL, Intravenous, | | 20 12:00 | mLs | mL/hr | | | Administer over 30 Minutes, | | AM PDT | | | | | ONCE, 03/11/20 at 2335, For 1 | | | | | | | dose | | | | | | + +---------+ +--------+-------+------+ +---+---+ | | | +---+---+ documented in this encounter
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
--- OUTSIDE RECORDS SUMMARY | ~2020-05-16 | XMS | Encounter Summary ---
Demographics + + + | Address | [address] | | | [place] [address] | + + + | Home Phone | | + + + | Preferred Language | Unknown | + + + | Marital Status | Single | + + + | Church Affiliation | 1013 | + + + | Race | Unknown | + + + | Ethnic Group | Unknown | + + + Author + + + | Author | [facility] | | | and [place] | + + + | Organization | [facility] | | | [...] Team Providers + +------+ + | Care Outsole Cementer Machine Name | Role | Phone | + +------+ + | James Farmer MD | PCP | | + +------+ + Reason for Visit + +--------+ + | Reason | Onset | Comments | | | Date | | + +--------+ + | Sleep Apnea | 04/29/ | | | | 2019 | | + +--------+ + | Medication Reaction | 04/29/ | | | | 2019 | | + +--------+ + Encounter Details +--------+ + + + + | Date | Type | Department | Care Team | Description | +--------+ + + + + | 04/29/ | Telephone | [facility] | James Farmer, | Sleep Apnea; | | 2019 | | MEDICINE [address] | MD [address] | Medication Reaction | | | | [place], | [place] | | | | | [place] [address] | [id number] | | | | | [phone] | | | +--------+ + + + [...] Telephone Encounter - Ashlie Blevins LPN - 04/29/2020 11:40 AM PDTReturned call to robb saldana and again spent ample time explaining to her that she must be seen with her specialist and complete the referrals about her issues before we can have any other answers for her about what is wrong. Patient is mentally impaired and is struggle to understand that she is ok cur rently and that once she completes these referrals we would hopefull have more answers for h er until then there is per Dr Farmer nothing further we can do to help her. She wants to b e evaluated for sleep apnea but per this is not her swallowing problem and until this is resolved he will not refer her for evaluation of this elephone Encounter - Maci Grider - 04/29/2020 11:17 AM PDTPatient would like to speak to the nurse. Patient has question on sleep Apnea. Patient st ates she got sick after taking nitroglycerin for 3 hours stomach upset. Please advise.Electr onically signed by Maci Grider at 04/29/2020 11:22 AM PDTdocumented in this encounter Plan of Treatment Not on filedocumented as of this encounter Visit Diagnoses Not on filedocumented in this encounter"
--- OUTSIDE RECORDS SUMMARY | ~2020-05-16 | XMS | Encounter Summary ---
Demographics + + + | Address | [address] | | | [place] [address] | + + + | Home Phone | | + + + | Preferred Language | Unknown | + + + | Marital Status | Single | + + + | Orthodox Affiliation | 1013 | + + + | Race | Unknown | + + + | Ethnic Group | Unknown | + + + Author + + + | Author | [facility] | | | and [place] | + + + | Organization | [facility] | | | [...] Team Providers + +------+ + | Care Assistant Attorney General Name | Role | Phone | + +------+ + PCP | Unavailable | + +------+ + Encounter Details +--------+ + + + + | Date | Type | Department | Care Team | Description | +--------+ + + + + | 11/19/ | Hospital | [facility] | | | | 1992 | Encounter | [facility] | | | | | | CENTER [address] | | | | | | [place] | | | | | | [address] | | | | | | [phone] | | | +--------+ + + + [...]
--- OUTSIDE RECORDS SUMMARY | ~2020-05-16 | XMS | Encounter Summary ---
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 | Phone | + +------+ + | Rianna Farmer MD | PCP | | + +------+ + Reason for Visit + + + | Reason | Comments | + + + | Shortness of Breath | | + + + Encounter Details +--------+ + + + + | Date | Type | Department | Care Team | Description | +--------+ + + + + | 03/31/ | Emergency | [facility] | Jose De Jesus Cerna, | Shortness of breath | | 2020 | | [facility] | MD [address] | (Primary Dx) | | | | CENTER [address] | [place] | | | | | [place] | [id number] | | | | | [address] | | | | | | [phone] | | | +--------+ + + + [...] + + + | Blood Pressure | 121/77 | 03/31/2020 2:16 PM | | | | | PDT | | + + + + + | Pulse | 80 | 03/31/2020 2:16 PM | | | | | PDT | | + + + + + | Temperature | 37.5 C (99.5 F) | 03/31/2020 2:16 PM | | | | | PDT | | + + + + + | Respiratory Rate | 13 | 03/31/2020 2:16 PM | | | | | PDT | | + + + + + | Oxygen Saturation | 97% | 03/31/2020 2:16 PM | | | | | PDT | | + + + + + | Inhaled Oxygen | - | - | | | Concentration | | | | + + + + + | Weight | 72.6 kg (160 lb) | 03/31/2020 2:16 PM | | | | | PDT | | + + + + + | Height | - | - | | + + + + + | Body Mass Index | 27.46 | 03/11/2020 11:13 PM | | | | | PDT | | + + + + + documented in this encounter Discharge Instructions AttachmentsThe following attachments cannot be sent through Care Everywhere.Isidro de (Dyspnea) (Mauritian)documented in this encounter Medications at Time of [...] mouth | 240 mL | 2 | 04/30/20 | | | diphenhydrAMINE-visc | every 6 hours as | | | 20 | | | | needed for Other | | | | | | sjejgnrhv-aqunizrw-z | (swish and swallow). | | | [...] documented as of this encounter ED Notes Jose De Jesus Cerna MD - 03/31/2020 2:22 PM PDTFormatting of this note might be different fro m the original. [facility] Ivis Quijano EMERGENCY DEPARTMENT ENCOUNTER NOTE [address] [place] [id number] PCP:Rianna Farmer MD ROOM: ED17 EMERGENCY DEPARTMENT ENCOUNTER CHIEF COMPLAINT Chief Complaint Patient presents with Shortness of Breath HPI Ivis Quijano is a 59 y.o. female who presents for evaluation of shortness of breath. She states she is had shortness of breath and anxiety for the last several days. It seems like it is getting worse. She is had no fever or cough. Her shortness of breath is consta nt. She is had no nausea no vomiting no diarrhea. She denies any chest pain or chest press ure. He is scheduled for endoscopy. She states she is extremely anxious. 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 09/06/2019 new diagnosis so repeat egd in 1 year 08/2020 Depression with anxiety Dysphagia 06/16/2017 GERD (gastroesophageal reflux disease) Seizure (HCC) Tertiary contraction of esophagus Wears partial dentures upper SURGICAL HISTORY Past Surgical History: Procedure Laterality Date ESOPHAGEAL DILATATION GASTRIC MANOMETRY N/A 01/31/2020 Procedure: MANOMETRY ESOPHAGEAL; Surgeon: Nishant Arceo MD; Location: [facility] GI MANOMETRY 02/05/2020 UPPER GASTROINTESTINAL ENDOSCOPY N/A 11/30/2017 Procedure: EGD; Surgeon: Loi Hui MD; Location: [facility] UPPER GASTROINTESTINAL ENDOSCOPY N/A 04/05/2019 Procedure: EGD; Surgeon: Loi Hui MD; Location: [facility] UPPER GASTROINTESTINAL ENDOSCOPY N/A 09/06/2019 Procedure: EGD; Surgeon: Rodriguez Gómez MD; Location: [facility] UPPER GASTROINTESTINAL ENDOSCOPY N/A 02/20/2020 Procedure: EGD; Surgeon: Nishant Arceo MD; Location: [facility] VEIN SURGERY 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 dilTIAZem (CARDIZEM) 60 mg tablet TAKE ONE TABLET BY MOUTH FOUR TIMES DAILY diphenhydrAMINE (BENADRYL) 25 mg tablet Take 25 mg by mouth every 6 hours as needed for Itching. diphenhydrAMINE-visc zoydddgwy-wkrxokgd-xqeqvcwtd-simethicone (MIRACLE MOUTHWASH) suspe nsion Take 5 mLs by mouth every 6 hours as needed for Other (swish and swallow). (RECIPE = 1 :1:1 mixture of Maalox, diphenhydrAMINE, viscous lidocaine) (Patient not taking: Reported on 03/29/2020) hyoscyamine (LEVSIN) 0.125 MG tablet Take 1 tablet by mouth every 6 hours as needed for Other (esophageal spasms). (Patient taking differently: Take 125 mcg by mouth 2 times daily .) ibuprofen (ADVIL, MOTRIN) 200 mg tablet Take 400 mg by mouth every 6 hours as needed fo r Pain. Lidocaine HCl (MAGIC + NYSTATIN MOUTHWASH) Take 10 mLs by mouth every 4 hours. (Patient not taking: Reported on 03/29/2020) Multiple Vitamin (MULTI-VITAMIN PO) Take 1 tablet by mouth Daily. non-formulary medication Take 2 tablets by mouth Daily. Super Energy supplement pantoprazole (PROTONIX) 40 mg tablet Take 1 tablet by mouth every morning (before break fast). UNABLE TO FIND Take 1-2 capsules by mouth Daily. Focus Factor ALLERGIES No Known Allergies FAMILY HISTORY Family History Problem Relation Age of Onset Heart disease Paternal Grandmother Heart attack Paternal Grandmother High blood pressure Paternal Grandmother Diabetes Paternal Grandfather Depression Paternal Grandfather SOCIAL HISTORY Social History Socioeconomic History Marital status: Single Spouse name: Not on file Number of children: Not on file Years of education: Not on file Highest education level: Not on file Tobacco Use Smoking status: Never Smoker Smokeless tobacco: Never Used Substance and Sexual Activity Alcohol use: No Alcohol/week: 0.0 standard drinks Drug use: Never REVIEW OF SYSTEMS All systems reviewed and negative except as noted on HPI and/or limited by patient conditio n PHYSICAL EXAM VITAL SIGNS: Temp: 37.5 C (99.5 F) Pulse: 80 Resp: 13 SpO2: 97 % BP: 121/77 Constitutional: Well developed, Well nourished, No acute distress, Non-toxic appearance. HENT: Normocephalic, Atraumatic, Oropharynx moist, No obvious oral exudates, Nose normal. Neck- Normal range of motion, Supple, No stridor. Eyes: PERRL, EOMI, Conjunctiva normal, No discharge. Respiratory: No tachypnea, no intercostal retractions, no accessory muscle use, lungs are c lear to auscultation bilaterally Cardiovascular: skin pink and warm GI: nondistended tender : not done Musculoskeletal: No visible edema ,Integument: Dry, No visible erythema, No rash. Neurologic: No gross motor deficit unless otherwise noted EKG Not done RADIOLOGY X-rays negative for pneumonia, pneumothorax, widened mediastinum or other cause of her symp toms Medications Administered ED COURSE & MEDICAL DECISION MAKING Last Set of Vital Signs: Temp: 37.5 C (99.5 F) Pulse: 80 Resp: 13 SpO2: 97 % BP: 121/77 Pertinent Labs, Nurses Note, & Imaging studies reviewed. (See chart for details) 59-year-old female with shortness of breath. Chest x-ray is negative for any acute cause, cardiac enzymes EKG and blood work are all reassuring. No evidence of ischemia or PE. FINAL IMPRESSION Shortness of breath LABS FROM THIS VISIT OR MOST RECENT ER VISIT: Results for orders placed or performed during the hospital encounter of 03/31/20 CBC with Differential Result Value Ref Range WBC 5.7 4.0 - 11.0 K/uL RBC 4.09 3.70 - 5.20 M/uL Hemoglobin 11.7 11.5 - 16.0 g/dL Hematocrit 34.1 34.0 - 47.0 % MCV 83.4 83.0 - 101.0 fL MCH 28.6 28.0 - 35.0 pg MCHC 34.3 32.0 - 36.0 g/dL RDW-CV 12.3 <15.0 % RDW-SD 37.3 35.1 - 46.3 fL Platelet Count 219 140 - 440 K/uL MPV 9.3 6.5 - 12.4 fL % Neutrophils 74.9 45.0 - 82.0 % % Lymphocytes 17.5 (L) 20.0 - 45.0 % % Monocytes 5.3 4.0 - 12.0 % % Eosinophils 0.9 0.0 - 5.0 % % Basophils 1.2 (H) 0.0 - 1.0 % % Immature Granulocytes 0.2 0.0 - 0.4 % Absolute Neutrophils 4.28 1.80 - 8.50 K/uL Absolute Lymphocytes 1.00 0.60 - 3.20 K/uL Absolute Monocytes 0.30 0.00 - 1.00 K/uL Absolute Eosinophils 0.05 0.00 - 0.40 K/uL Absolute Basophils 0.07 0.00 - 0.10 K/uL Absolute Immature Granulocytes 0.01 0.00 - 0.03 K/uL % nRBC 0 0 - 2 per 100 WBCs Absolute nRBC 0.00 0.00 - 0.01 K/uL Comprehensive Metabolic Panel Result Value Ref Range Na 134 (L) 136 - 145 mmol/L K 3.8 3.4 - 5.1 mmol/L Cl 97 (L) 98 - 107 mmol/L CO2 28 20 - 31 mmol/L Anion Gap 9 3 - 16 mmol/L Glucose 132 (H) 60 - 106 mg/dL BUN 10 9 - 23 mg/dL Creatinine 0.79 0.55 - 1.02 mg/dL eGFR if not >60 >=60 mL/min/1.73m2 Calcium 9.8 8.7 - 10.4 mg/dL Albumin 4.6 3.2 - 4.8 g/dL Bilirubin Total 0.3 0.3 - 1.2 mg/dL Total Protein 7.2 5.7 - 8.2 g/dL AST 19 0 - 34 U/L ALT 14 10 - 49 U/L Alkaline Phosphatase 117 (H) 46 - 116 U/L Globulin 2.6 2.1 - 3.8 g/dL Albumin/Globulin Ratio 1.8 0.8 - 1.9 BUN/Creatinine Ratio 12.7 Troponin I Result Value Ref Range Troponin I <0.01 <0.06 ng/mL D-Dimer Result Value Ref Range D-Dimer Quantitative 0.39 <=0.50 ug/mL FEU Extra Lavender Top Tube Result Value Ref Range Extra Lavender Top Tube Done ECG 12 lead Result Value Ref Range INTERPRETATION TEXT Not Confirmed Jose De Jesus Cerna MD 03/31/20 1602 [place], Johanne Mireles RN - 03/31/2020 2:17 PM PDTPt c/o shortness of breath and inability to swallow secretions. Robyn mireles has been having this problem since November. She is scheduled for EGD tomorrow, and this is her 5th one for the same type of symptoms. She states that the only time she really feels t he shortness of breath is when she is trying to swallow her own secretions. Electronically s igned by Johanne Aguila RN at 03/31/2020 2:20 PM PDTdocumented in this encounter Plan of Treatment + +------+--------+ + + | Name | Type | Priori | Associated Diagnoses | Date/Time | | | | ty | | | + +------+--------+ + + | ED INFORMATION | [facility] | Routin | | 03/31/2020 2:33 PM | | EXCHANGE | | e | | PDT | + +------+--------+ + + documented as of this encounter Procedures + +--------+ + + + | Procedure Name | Priori | Date/Time | Associated Diagnosis | Comments | | | ty | | | | + +--------+ + + + | XR CHEST AP PORTABLE | STAT | 03/31/2020 | | Results for this | | | | 3:45 PM | | procedure are in the | | | | PDT | | results section. | + +--------+ + + + | COVID-19 STAT | STAT | 03/31/2020 | | | | INSTRUCTION TO | | 3:10 PM | | | | [facility] ONLY | | PDT | | | + +--------+ + + + | CORONAVIRUS | Routin | 03/31/2020 | | Results for this | | (COVID-19) NAAT | e | 3:10 PM | | procedure are in the | | | | PDT | | results section. | + +--------+ + + + | ECG 12 LEAD | STAT | 03/31/2020 | | Results for this | | | | 3:06 PM | | procedure are in the | | | | PDT | | results section. | + +--------+ + + + | EXTRA LAVENDER TOP | Routin | 03/31/2020 | | Results for this | | TUBE | e | 2:38 PM | | procedure are in the | | | | PDT | | results section. | + +--------+ + + + | TROPONIN I | STAT | 03/31/2020 | | Results for this | | | | 2:37 PM | | procedure are in the | | | | PDT | | results section. | + +--------+ + + + | D-DIMER | STAT | 03/31/2020 | | Results for this | | | | 2:37 PM | | procedure are in the | | | | PDT | | results section. | + +--------+ + + + | CBC WITH | STAT | 03/31/2020 | | Results for this | | DIFFERENTIAL | | 2:37 PM | | procedure are in the | | | | PDT | | results section. | + +--------+ + + + | COMPREHENSIVE | STAT | 03/31/2020 | | Results for this | | METABOLIC PANEL | | 2:37 PM | | procedure are in the | | | | PDT | | results section. | + +--------+ + + + | ED INFORMATION | Routin | 03/31/2020 | | | | EXCHANGE | e | 2:33 PM | | | | | | PDT | | | + +--------+ + + + +---+--------+ | | | | | Proced | | | ure | | | Note - | | | Manohar, | | | Lab In | | | | | | Hlseve | | | n - | | | | | | 2019 | | | 2:34 | | | PM PDT | | | | | | Format | | | ting | | | of | | | this | | | note | | | might | | | be | | | differ | | | ent | | | from | | | the | | | origin | | | al.COL | | | LECTIV | | | E?NOTI | | | FICATI | | | ON?05/ | | | | | | 0 | | | 14:06? | | | THOMPS | | | ON, | | | IVIS | | | D?MRN: | | | | | | [id number] | | | [id number] | | | riteri | | | a Met | | | | | | COVID- | | | 19 | | | Pendin | | | g Lab | | | Result | | | sSecur | | | ity | | | and | | | Safety | | | No | | | recent | | | | | | Securi | | | ty | | | Events | | | | | | curren | | | tly on | | | | | | fileED | | | Care | | | Guidel | | | inesTh | | | ere | | | are | | | curren | | | tly no | | | ED | | | Care | | | Guidel | | | ania | | | for | | | this | | | patien | | | t. | | | Please | | | check | | | your | | | facili | | | ty's | | | medica | | | l | | | record | | | s | | | system | | | .Flags | | | | | | Pendin | | | g | | | COVID- | | | 19 Lab | | | | | | Result | | | - | | | Provid | | | ence - | | | A | | | specim | | | en was | | | | | | collec | | | yossi | | | from | | | this | | | patien | | | t for | | | COVID- | | | 19, | | | result | | | s | | | pendin | | | g / | | | Attrib | | | uted | | | By: | | | Provid | | | ence_ | | | / | | | Attrib | | | uted | | | On: | | | 05/10/ | | | 2020 | | | | | | [place] | | | ED | | | Dispar | | | ity | | | Measur | | | e - | | | [place] | | | has | | | develo | | | ped a | | | flag | | | ([place]rego | | | n ED | | | Dispar | | | ity | | | Measur | | | e) to | | | help | | | suppor | | | t | | | Medica | | | id | | | member | | | s with | | | | | | mental | | | | | | illnes | | | s. | | | [place] | | | | | | Health | | | | | | Author | | | ity | | | uses | | | claims | | | data | | | with a | | | | | | 36-mon | | | th | | | elvia | | | g look | | | back | | | period | | | to | | | identi | | | fy | | | member | | | s who | | | have | | | had | | | two or | | | more | | | diagno | | | ses of | | | | | | mental | | | | | | illnes | | | s | | | (does | | | not | | | need | | | to be | | | primar | | | y) in | | | any | | | settin | | | g | | | (e.g. | | | ED, | | | Inpati | | | ent, | | | primar | | | y | | | care). | | | | | | Flagge | | | d | | | member | | | s are | | | includ | | | ed in | | | the ED | | | | | | Dispar | | | ity | | | Measur | | | e | | | denomi | | | nator | | | popula | | | tion. | | | Flags | | | are | | | update | | | d | | | weekly | | | . / | | | Attrib | | | uted | | | By: | | | [place] | | | | | | Health | | | | | | Author | | | ity | | | (OHA) | | | / | | | Attrib | | | uted | | | On: | | | 01/14/ | | | 2020 | | | Prescr | | | iption | | | Drug | | | Report | | | (12 | | | Mo.)PD | | | MP | | | query | | | found | | | no | | | report | | | .E.D. | | | Visit | | | Count | | | (12 | | | mo.)Fa | | | cility | | | | | | Visits | | | Low | | | Acuity | | | | | | Provid | | | ence | | | [facility] | | | [facility] | [facility] | | | l | | | Center | | | 3 0 | | | Total | | | 3 0 | | | Note: | | | Visits | | | | | | indica | | | te | | | total | | | known | | | visits | | | . | | | Medica | | | id Low | | | | | | Acuity | | | Dx | | | are | | | the | | | number | | | of | | | primar | | | y | | | diagno | | | ses on | | | the | | | Medica | | | id's | | | Low | | | Acuity | | | dx | | | list. | | | | | | Recent | | | | | | Emerge | | | ncy | | | Depart | | | ment | | | Visit | | | [facility] | | | yDate | | | Facili | | | ty | | | City | | | State | | | Type | | | Diagno | | | ses or | | | Chief | | | | | | Compla | | | int | | | May | | | 10, | | | 2020 | | | Provid | | | ence | | | [facility] | | [place] | | | [place] | | | Emerge | | | ncy | | | SOB | | | | | | Shortn | | | ess of | | | | | | Breath | | | Apr | | | 20, | | | 2020 | | | Provid | | | ence | | | [facility] | [facility] | [place] | | | [place] | | | Emerge | | | ncy | | | SOB | | | | | | Shortn | | | ess of | | | | | | Breath | | | | | | Dyspha | | | ariel | | | | | | Dyspha | | | ariel, | | | unspec | | | ified | | | Feb | | | 8, | | | 2020 | | | [facility] | | | [place] | | | Urgent | | | Care | | | [place] | | | [place] | | | Urgent | | | Care | | | | | | Cough | | | | | | Bronch | | | itis, | | | not | | | specif | | | ied as | | | acute | | | or | | | chroni | | | c Anam | | | 1, | | | 2020 | | | [facility] | | | [place] | | | Urgent | | | Care | | | [place] | | | [place] | | | Urgent | | | Care | | | | | | Medica | | | tion | | | Refill | | | | | | Dyspha | | | ariel, | | | unspec | | | ified | | | Oct | | | 15, | | | 2019 | | | Provid | | | ence | | | [facility] | [facility] | [place] | | | [place] | | | Emerge | | | ncy | | | | | | throat | | | | | | issues | | | | | | Swallo | | | wing | | | Diffic | | | ulty | | | | | | Other | | | specif | | | ied | | | eating | | | | | | disord | | | er | | | Dehydr | | | ation | | | | | | Esopha | | | geal | | | obstru | | | ction | | | Oct | | | 10, | | | 2019 | | | [facility] | | | [place] | | | Urgent | | | Care | | | [place] | | | [place] | | | Urgent | | | Care | | | | | | Emesis | | | | | | Esopha | | | gitis, | | | | | | unspec | | | ified | | | | | | Recent | | | | | | Inpati | | | ent | | | Visit | | | [facility] | | | yNo | | | record | | | ed | | | inpati | | | ent | | | visits | | | . Care | | | | | | TeamPr | | | ovider | | | | | | Specia | | | lty | | | Phone | | | Fax | | | Servic | | | e | | | Dates | | | RIANNA, | | | | | | WOOLEV | | | ER , | | | MD | | | Flight Surgeon | | | al | | | Medici | | | ne | | | [phone] | | | [phone] | | | [phone] | | | Curren | | | t | | | Collec | | | tive | | | Portal | | | This | | | patien | | | t has | | | regist | | | ered | | | at the | | | | | | Provid | | | ence | | | [facility] | | | [facility] | [facility] | | | l | | | Center | | | | | | Emerge | | | ncy | | | Depart | | | ment | | | For | | | more | | | inform | | | ation | | | visit: | | | | | | https: | | | //prov | | | .colle | | | ctivem | | | edical | | | .com/n | | | otify/ | | | [id number] | | | [email or web address] | | | [phone] | | | [phone] | | | [id number] | | | [id number] | | | | | | PLEASE | | | NOTE: | | | 1. | | | Any | | | care | | | recomm | | | endati | | | ons | | | and | | | other | | | clinic | | | al | | | inform | | | ation | | | are | | | provid | | | ed as | | | guidel | | | ania | | | or for | | | | | | histor | | | ical | | | purpos | | | es | | | only, | | | and | | | provid | | | ers | | | should | | | | | | exerci | | | se | | | their | | | own | | | clinic | | | al | | | judgme | | | nt | | | when | | | provid | | | ing | | | care. | | | 2. | | | You | | | may | | | only | | | use | | | this | | | inform | | | ation | | | for | | | purpos | | | es of | | | treatm | | | ent, | | | paymen | | | t or | | | health | | | care | | | operat | | | ions | | | activi | | | ties, | | | and | | | subjec | | | t to | | | the | | | limita | | | tions | | | of | | | applic | | | able | | | Collec | | | tive | | | Polici | | | es. | | | 3. | | | You | | | should | | | | | | consul | | | t | | | direct | | | ly | | | with | | | the | | | organi | | | zation | | | that | | | provid | | | ed a | | | care | | | guidel | | | ine or | | | other | | | | | | clinic | | | al | | | histor | | | y with | | | any | | | questi | | | ons | | | about | | | additi | | | onal | | | inform | | | ation | | | or | | | accura | | | cy or | | | comple | | | teness | | | of | | | inform | | | ation | | | provid | | | ed.? | | | 2019 | | | Collec | | | tive | | | Medica | | | l | | | Techn[employer] | | | logies | | | , Inc[employer] | | | - | | | [email or web address] | | | llecti | | | vemedi | | | [email or web address] | | | m | +---+--------+ documented in this encounter Results XR Chest AP Portable (03/31/2020 3:45 PM PDT) + + | Specimen | + + | | + + + + + | Impressions | Performed At | + + + | No acute intrathoracic abnormality identified. Enlargement of | [facility] | | the central pulmonary vasculature. Dictated and Signed by: Mir | | | MD Farhat Electronically signed: 03/31/2020 8:40 PM | | + + + + + + | Narrative | Performed At | + + + | XR CHEST AP PORTABLE 03/31/2020 3:20 PM HISTORY: SHORTNESS OF | [facility] | | BREATH. COMPARISON: 03/11/2020 Findings: The bilateral lungs | | | are clear with no evidence for pleural effusion or pneumothorax. | | | Heart size is within normal limits. Pulmonary vasculature is | | | enlarged. Aorta is normal. Mediastinum is unremarkable. No acute | | | osseous or soft tissue abnormality identified. | | + + + + + | Procedure Note | + + | Manohar, Rad Results In - 03/31/2020 8:43 PM PDT XR CHEST AP PORTABLE 03/31/2020 3:20 PM | | | | HISTORY: SHORTNESS OF BREATH. | | | | COMPARISON: 03/11/2020 | | | | Findings: | | The bilateral lungs are clear with no evidence for pleural effusion or | | pneumothorax. Heart size is within normal limits. Pulmonary vasculature is | | enlarged. Aorta is normal. Mediastinum is unremarkable. No acute osseous or soft | | tissue abnormality identified. | | | | IMPRESSION: | | No acute intrathoracic abnormality identified. | | | | Enlargement of the central pulmonary vasculature. | | | | Dictated and Signed by: Mir Dougherty MD | | Electronically signed: 03/31/2020 8:40 PM | + + + +---------+ + + | Performing | Address | City/State/Zipcode | Phone Number | | Organization | | | | + +---------+ + + | [facility] | | | | + +---------+ + + [facility] STAT instructions for COVID-19 tracking (03/31/2020 3:10 PM PDT) + +-------+ + + + | Component | Value | Ref Range | Performed | Pathologist | | | | | At | Signature | + +-------+ + + + | [facility] | | | [facility] | | | COVID STAT | | | | | | instruction | | | | | + +-------+ + + + + + | Specimen | + + | Tissue - Entire | | nasopharynx (body | | structure) | + + + +---------+ + + | Performing | Address | City/State/Zipcode | Phone Number | | Organization | | | | + +---------+ + + | [facility] | | | | + +---------+ + + Coronavirus (COVID-19) NAAT (03/31/2020 3:10 PM PDT) + + + + + + | Component | Value | Ref Range | Performed | Pathologist | | | | | At | Signature | + + + + + + | SARS | Not Detected | Not Detected | [facility] | | | coronavirus | | | | | | 2 NAAT | | | | | + + + + + + + + | Specimen | + + | Tissue - Entire | | nasopharynx (body | | structure) | + + + + + | Narrative | Performed At | + + + | See scanned | [facility] | | report | | + + + + +---------+ + + | Performing | Address | City/State/Zipcode | Phone Number | | Organization | | | | + +---------+ + + | [facility] | | | | + +---------+ + + ECG 12 lead (03/31/2020 3:06 PM PDT) + + + + + + | Component | Value | Ref Range | Performed | Pathologist | | | | | At | Signature | + + + + + + | VENTRICULAR | 71 | BPM | [facility] | | | RATE EKG | | | | | + + + + + + | ATRIAL RATE | 71 | BPM | [facility] | | + + + + + + | P-R | 156 | ms | [facility] | | | INTERVAL | | | | | + + + + + + | QRS | 72 | ms | [facility] | | | DURATION | | | | | + + + + + + | Q-T | 424 | ms | [facility] | | | INTERVAL | | | | | + + + + + + | Q-T | 460 | ms | [facility] | | | INTERVAL | | | | | | (CORRECTED) | | | | | + + + + + + | P WAVE AXIS | 63 | degrees | [facility] | | + + + + + + | QRS AXIS | 10 | degrees | [facility] | | + + + + + + | T AXIS | 40 | degrees | [facility] | | + + + + + + | INTERPRETAT | Lead V3 cannot be | | [facility] | | | ION TEXT | interpretedSinus rhythm | | | | | | with premature | | | | | | supraventricular | | | | | | complexesPossible Left | | | | | | atrial enlargementRSR' | | | | | | pattern in V1 suggests | | | | | | right ventricular | | | | | | conduction delayWhen | | | | | | compared with ECG of | | | | | | 21-JUL-2017 | | | | | | 03:41,Non-specific | | | | | | change in ST segment in | | | | | | Lateral leads is no | | | | | | longer presentConfirmed | | | | | | by VIRGIE MAXWELL MD | | | | | | ([id number]) on 04/01/2020 | | | | | | 7:04:54 AM | | | | + + + + + + + + | Specimen | + + | | + + + + + | Narrative | Performed At | + + + | | | + + + + +---------+ + + | Performing | Address | City/State/Zipcode | Phone Number | | Organization | | | | + +---------+ + + | [facility] | | | | + +---------+ + + Extra Lavender Top Tube (03/31/2020 2:38 PM PDT) + +-------+ + + + | Component | Value | Ref Range | Performed | Pathologist | | | | | At | Signature | + +-------+ + + + | Extra | Done | | [facility] | | [facility] | | | [facility] | [facility] | | [...] + | [facility] | [address] [address] | [place] | [phone] | | [facility] | | [address] | | | - LABORATORY | | | | + + + + + D-Dimer (03/31/2020 2:37 PM PDT) + + + + + + | Component | Value | Ref Range | Performed | Pathologist | | | | | At | Signature | + + + + + + | D-Dimer | 0.39Comment: This | <=0.50 ug/mL | [facility] | | | Quantitativ | quantitative D-Dimer | FEU | [facility] | | | e | assay has been evaluated | | MEDICAL | | | | for screening for | | CENTER - | | | | venous thrombotic | | LABORATORY | | | | disease, and may be | | | | | | useful in ruling out, | | | | | | but not ruling in | | | | | | disease. Values less | | | | | | than 0.50 ug/mL FEU | | | | | | (Fibrinogen Equivalent | | | | | | Units) have a negative | | | | | | predictive value of | | | | | | approximately 95% for | | | | | | ruling out large | | | | | | pulmonary emboli or | | | | | | proximal deep vein | | | | | | thrombosis. Distal DVT | | | | | | are not excluded. An | | | | | | elevated D-dimer can be | | | | | | present in patients with | | | | | | liver disease, | | | | | | , eclampsia, | | | | | | heart disease and some | | | | | | cancers among other | | | | | | conditions. The presence | | | | | | of rheumatoid factor at | | | | | | a level >50 IU/mL may | | | | | | falsely elevate the | | | | | | determined D-dimer | | | | | | levels. | | | | + + + + + + + + | Specimen | + + | Blood | + + + + + + + | Performing | Address | City/State/Zipcode | Phone Number | | Organization | | | | + + + + + | [facility] | [address] | [place] | [phone] | | [facility] | | [address] | | | - LABORATORY | | | | + + + + + Troponin I (03/31/2020 2:37 PM PDT) + + + + + + | Component | Value | Ref Range | Performed | Pathologist | | | | | At | Signature | + + + + + + | Troponin I | <0.01Comment: | <0.06 ng/mL | [facility] | | | | Comment:Reference | | [facility] | | | | Ranges: 0.00-0.06 = | | MEDICAL | | | | NORMAL >0.06 = | | CENTER - | | | | SUSPICIOUS FOR | | LABORATORY | | | | MYOCARDIAL DAMAGE NOTE: | | | | | | Values greater than | | | | | | 0.78 ng/mL have been | | | | | | shown to be strongly | | | | | | associated with acute | | | | | | myocardial infarction. | | | | | | The [employer] [place] | | | | | | Cardiology (ACC) | | | | | | recommends a decision | | | | | | limit of 0.06 ng/mL for | | | | | | this assay. Results | | | | | | greater than 0.06 can | | | | | | reflect a pre-infarct | | | | | | acute coronary syndrome, | | | | | | but can also reflect | | | | | | myocardial necrosis or | | | | | | injury that is not due | | | | | | to coronary artery | | | | | | disease. Some of these | | | | | | causes are sepsis, | | | | | | hypocolemia, atrial | | | | | | fibrillation, heart | | | | | | failure, pulmonary | | | | | | embolism, myocarditis, | | | | | | myocardial contusion, | | | | | | and renal failure. The | | | | | | diagnosis of myocardial | | | | | | infarction should be | | | | | | based on a combination | | | | | | of the patient's | | | | | | clinical presentation | | | | | | and the clinical | | | | | | laboratory test results | | | | | | (especially serial | | | | | | troponin levels). | | | | + + + + + + + + | Specimen | + + | Blood | + + + + + + + | Performing | Address | City/State/Zipcode | Phone Number | | Organization | | | | + + + + + | [facility] | [address] | [place], [place] | [phone] | | [facility] | | [address] | | | - LABORATORY | | | | + + + + + Comprehensive Metabolic Panel (03/31/2020 2:37 PM PDT) + + + + + [...] + | Cl | 97 (L) | 98 - 107 mmol/L | [facility] | | | | | | [facility] | | | | | | MEDICAL | | | | | | CENTER - | | | | | | LABORATORY | | + + + + + + | CO2 | 28 | 20 - 31 mmol/L | [facility] | | | | | | [facility] | | | | | | MEDICAL | | | | | | CENTER - | | | | | | LABORATORY | | + + + + + + | Anion Gap | 9 | 3 - 16 mmol/L | [facility] | | | | | | [facility] | | | | | | MEDICAL | | | | | | CENTER - | | | | | | LABORATORY | | + + + + + + | Glucose | 132 (H) | 60 - 106 mg/dL | [facility] | | | | | | [facility] | | | | | | MEDICAL | | | | | | CENTER - | | | | | | LABORATORY | | + + + + + + | BUN | 10 | 9 - 23 mg/dL | [facility] | | | | | | [facility] | | | | | | MEDICAL | | | | | | CENTER - | | | | | | LABORATORY | | + + + + + + | Creatinine | 0.79 | 0.55 - 1.02 | [facility] | | | | | mg/dL | [facility] | | | | | | MEDICAL | | | | | | CENTER - | | | | | | LABORATORY | | + + + + + + | eGFR if not | >60Comment: GLOMERULAR | >=60 | [facility] | | | | FILTRATION | mL/min/1.73m2 | [facility] | | | MACEDONIAN | RATE,ESTIMATED | | MEDICAL | | | | mL/min/1.39o0Muwg than | | CENTER - | | [...] | | | | | mg/dL | [facility] | | | | | | MEDICAL | | | | | | CENTER - | | | | | | LABORATORY | | + + + + + + | Albumin | 4.6 | 3.2 - 4.8 g/dL | [facility] | | | | | | [facility] | | | | | | MEDICAL | | | | | | CENTER - | | | | | | LABORATORY | | + + + + + + | Bilirubin | 0.3 | 0.3 - 1.2 mg/dL | [facility] | | | Total | | | [facility] | | | | | | MEDICAL | | | | | | CENTER - | | | | | | LABORATORY | | + + + + + + | Total | 7.2 | 5.7 - 8.2 g/dL | [facility] | | | Protein | | | [facility] | | | | | | MEDICAL | | | | | | CENTER - | | | | | | LABORATORY | | + + + + + + | AST | 19 | 0 - 34 U/L | [facility] | | | | | | [facility] | | | | | | MEDICAL | | | | | | CENTER - | | | | | | LABORATORY | | + + + + + + | ALT | 14 | 10 - 49 U/L | [facility] [...] + + + + | BUN/Creatin | 12.7 | | [facility] | | | ine [...] + + + + + | [facility] | [address] | [place] | [phone] | | [facility] | | [address] | | | - LABORATORY | | | | + + + + + CBC with Differential (03/31/2020 2:37 PM PDT) + + + + + + | Component | Value | Ref Range | Performed | Pathologist | | | | | At | Signature | + + + + + + | WBC | 5.7 | 4.0 - 11.0 K/uL | [facility] | | | | | | [facility] | | | | | | MEDICAL | | | | | | CENTER - | | | | | | LABORATORY | | + + + + + + | RBC | 4.09 | 3.70 - 5.20 | [facility] | | | | | M/uL | [facility] | | | | [...] + + + + | Hematocrit | 34.1 | 34.0 - 47.0 % | [facility] | | | | | | [facility] | | | | | | MEDICAL | | | | | | CENTER - | | | | | | LABORATORY | | + + + + + + | MCV | 83.4 | 83.0 - 101.0 fL | [facility] | | | | | | [facility] | | | | | | MEDICAL | | | | | | CENTER - | | | | | | LABORATORY | | + + + + + + | MCH | 28.6 | 28.0 - 35.0 pg | [facility] | | | | | | [facility] | | | | | | MEDICAL | | | | | | CENTER - | | | | | | LABORATORY | | + + + + + + | MCHC | 34.3 | 32.0 - 36.0 | [facility] | | | | | g/dL | [facility] | | | | | | MEDICAL | | | | | | CENTER - | | | | | | LABORATORY | | + + + + + + | RDW-CV | 12.3 | <15.0 % | [facility] | | | | | | [facility] | | | | | | MEDICAL | | | | | | CENTER - | | | | | | LABORATORY | | + + + + + + | RDW-SD | 37.3 | 35.1 - 46.3 fL | [facility] | | | | | | [facility] | | | | | | MEDICAL | | | | | | CENTER - | | | | | | LABORATORY | | + + + + + + | Platelet | 219 | 140 - 440 K/uL | [facility] | | | Count | | | [facility] | | | | | | MEDICAL | | | | | | CENTER - | | | | | | LABORATORY | | + + + + + + | MPV | 9.3 | 6.5 - 12.4 fL | [facility] | | | | | | [facility] | | | | | | MEDICAL | | | | | | CENTER - | | | | | | LABORATORY | | + + + + + + | % | 74.9 | 45.0 - 82.0 % | [facility] | | | Neutrophils | | | [facility] | | | | | | MEDICAL | | | | | | CENTER - | | | | | | LABORATORY | | + + + + + + | % | 17.5 (L) | 20.0 - 45.0 % | [facility] | | | Lymphocytes | | | [facility] | | | | | | MEDICAL | | | | | | CENTER - | | | | | | LABORATORY | | + + + + + + | % Monocytes | 5.3 | 4.0 - 12.0 % | [facility] [...] + + + | % Basophils | 1.2 (H) | 0.0 - 1.0 % | [facility] | | | | | | [facility] | | | | | | MEDICAL | | | | | | CENTER - | | | | | | LABORATORY | | + + + + + + | % Immature | 0.2 | 0.0 - 0.4 % | [facility] | | | Granulocyte | | | [facility] | | | s | | | MEDICAL | | | | | | CENTER - | | | | | | LABORATORY | | + + + + + + | Absolute | 4.28 | 1.80 - 8.50 | [facility] | | | Neutrophils | | K/uL | [facility] | | | | | | MEDICAL | | | | | | CENTER - | | | | | | LABORATORY | | + + + + + + | Absolute | 1.00 | 0.60 - 3.20 | [facility] | | | Lymphocytes | | K/uL | [facility] | | | | | | MEDICAL | | | | | | CENTER - | | | | | | LABORATORY | | + + + + + + | Absolute | 0.30 | 0.00 - 1.00 | [facility] | | | Monocytes | | K/uL | [facility] | | | | | | MEDICAL | | | | | | CENTER - | | | | | | LABORATORY | | + + + + + + | Absolute | 0.05 | 0.00 - 0.40 | [facility] | | | Eosinophils | | K/uL | [facility] | | | | | | MEDICAL | | | | | | CENTER - | | | | | | LABORATORY | | + + + + + + | Absolute | 0.07 [...] | nRBC | | K/uL | [facility] | [...] ST. | [address] | [place], [place] | [phone] | | [facility] | | [address] | | | - LABORATORY | | | | + + + + + documented in this encounter Visit Diagnoses + + | Diagnosis | + + | Shortness of breath - Primary | + + | Candidiasis, esophageal (HCC) Candidiasis of the esophagus | + + | Esophageal dysphagia Dysphagia, pharyngoesophageal phase | + + | Esophagogastric junction outflow obstruction | + + | Esophagitis, Winnett grade D | + + | Seizure [...] outflow obstruction | + + | Esophagitis, Winnett grade D | + + | Seizure (HCC) Other convulsions | + + | Depression with anxiety Dysthymic disorder | + + | Esophageal dysmotility Dyskinesia of esophagus | + + documented in this encounter Additional Health Concerns + + + + | Infection | Noted Time | Resolved Time | + + + + | Rule out COVID-19 | 03/31/2020 2:32 PM | 04/01/2020 12:00 PM | | | PDT | PDT | + + + + documented as of this encounter"
--- OUTSIDE RECORDS SUMMARY | ~2020-05-16 | XMS | Encounter Summary ---
Demographics + + + | Address | [address] | | | [place] [address] | + + + | Home Phone | | + + + | Preferred Language | Unknown | + + + | Marital Status | Single | + + + | Druze Affiliation | 1013 | + + + | Race | Unknown | + + + | Ethnic Group | Unknown | + + + Author + + + | Author | [facility] | | | and [place] | + + + | Organization | [facility] | | | and [...] Team Providers + +------+ + | Care Senior Market Intelligence Consultant Name | Role | Phone | + +------+ + | James Farmer MD | PCP | | + +------+ + Reason for Visit + +--------+ + | Reason | Onset | Comments | | | Date | | + +--------+ + | Follow-up | 07/25/ | | | | 2019 | | + +--------+ + Encounter Details +--------+ + + + + | Date | Type | Department | Care Team | Description | +--------+ + + + + | 07/25/ | Telephone | [facility] | Radha Carranza | Follow-up | | 2018 | | [facility] | D, PT [address] | | | | | [address] | [address] [place] | | | | | [place] | [id number] | | | | | [address] | | | | | | [phone] | | | +--------+ + + + [...] this encounter Miscellaneous Notes Telephone Encounter - Radha Carranza PT - 07/25/2019 2:02 PM PDTFollow Up Phone Call to let pt know that we were unable to get any further visits authorized. Instructed pt to ca ll if she has any further questions.Electronically signed by Radha Carranza PT at 2018 2:03 PM PDTdocumented in this encounter Plan of Treatment Not on filedocumented as of this encounter Visit Diagnoses Not on filedocumented in this encounter"
--- OUTSIDE RECORDS SUMMARY | ~2020-05-16 | XMS | Encounter Summary ---
Demographics + + + | Address | [address] | | | [place] [address] | + + + | Home Phone [...] Team Providers + +------+ + | Care Director Engineering Name | Role | Phone | + [...] + + + | | | | | | | +--------+--------+ + + + + Encounter Details +--------+ + + + + | Date | Type | Department | Care Team | Description | +--------+ + + + + | 09/30/ | Hospital | [facility] | James Farmer, | | | 2017 | Encounter | MED [facility] | [address] [facility] | | | | | MEDICINE [address] | [place] | | | | | [place], | [address] | | | | | [place] [address] | | | | | | [phone] | | | +--------+ + + + [...] + + + +---------+ + + | fluticasone | 1 spray by Nasal | 16 g | 1 | 08/22/20 | | | (FLONASE) 50 | route 2 times daily. | | | 17 | 8 | | mcg/nasal | | | | | | | sprayIndications: | | | | | | | Acute | | | | | | | nasopharyngitis | | | | | | + + + +---------+ + + | isosorbide | TAKE ONE TABLET BY | 90 | 1 | 09/29/20 | | | dinitrate (ISORDIL) | MOUTH THREE TIMES | tablet | | 17 | 8 | | 10 mg tablet | DAILY | | | | | + + + +---------+ + + | loratadine | Take 1 tablet by | 30 | 0 | 08/22/20 | | | (CLARITIN) 10 mg | mouth Daily. | tablet | | 17 | 8 | | tabletIndications: | | | | | | | Acute | | | | | | | nasopharyngitis | | | | | | + [...] | + +--------+ + + + | NM NUCLEAR STRESS | Routin | 09/30/2017 | Chest pain, | Results for this | | TEST (PHARMACOLOGIC | e | 7:56 AM | unspecified type | procedure are in the | | - VASODILATOR) | | PST | | results section. | + +--------+ + + + documented in this encounter Visit Diagnoses Not on filedocumented in this encounter Administered Medications + +--------+ + +------+------+ | Medication Order | MAR | Action | Dose | Rate | Site | | | Action | Date | | | | + +--------+ + +------+------+ | technetium TC-99M sestamibi | Given | 09/30/20 | 29.4 | | | | (CARDIOLITE) injection 29.4 | | 17 7:36 | millicur | | | | millicurie 29.4 millicurie, | | AM PST | ies | | | | Intravenous, ONCE PRN, Other, | | | | | | | Starting [facility] 09/30/17 at 0736, For | | | | | | | 1 dose, Nuclear Medicine | | | | | | + +--------+ + +------+------+ +---+---+ | | | +---+---+ documented in this encounter"
--- OUTSIDE RECORDS SUMMARY | ~2020-05-16 | XMS | Encounter Summary ---
Demographics + + + | Address | [address] | | | [place] [address] | + + + | Home Phone | | + + + | Preferred Language | Unknown | + + + | Marital Status | Single | + + + | Adventist Affiliation | 1013 | + + + | Race | Unknown | + + + | Ethnic Group | Unknown | + + + Author + + + | Author | [facility] | | | and [place] | + + + | Organization | [facility] | | | and [...] Team Providers + +------+ + | Care Deputy Clerk Of [address] Court Name | Role | Phone | + +------+ + | James Farmer MD | PCP | | + +------+ + Reason for Visit +--------+--------+ + | Reason | Onset | Comments | | | Date | | +--------+--------+ + | Other | 12/16/ | Patient left a voicemail, asking for a return call. She | | | 2017 | did not say what she needed. | +--------+--------+ + Encounter Details +--------+ + + + + | Date | Type | Department | Care Team | Description | +--------+ + + + + | 12/16/ | Telephone | [facility] | Moy, | Other (Patient left | | 2017 | | CARE [address] | Kapil Beckwith MD | a voicemail, asking | | | | [place] | [address] | for a return call. | | | | [address] | [place] | She did not say what | | | | [phone] | [address] | she needed.) | | | | | | | +--------+ + + + [...] Encounter - Bridgett Galdamez Cert MA - 12/22/2017 9:54 AM PSTCalled pt and notifie d her of note and she understood. Pt will continue medication and follow up as planned. elephone Encounte r Bridgett Bean Cert MA - 12/20/2017 10:48 AM PSTCalled pt and left message for pt to rohith l back. elephone Encounte r - Bridgett Galdamez Cert MA - 12/20/2017 10:35 AM PSTFormatting of this note might be differe nt from the original. Kapil Winter MD You 2 days ago Yes please (Routing comment) Called pt and left message for her to call back. Need to elephone Encounter - Bridgett Galdamez Cert MA - 12/17/2017 10:52 AM PSTCalled pt and notified her of no te. Pt wants to know if she needs to take the antibiotic for the full month as prescribed? Notified that Dr Winter will be in office tomorrow and will address this note- pt under stood. elephone EncounRenetta Lennon - 12/16/2017 7:37 PM PSTContact/Caller: Cherrie Contact Number: [phone] Provider/Nurse: Moy Reason for Call: Patient called, 12/16/17, she did not say what her call is regarding. She w ould like a return call. Last Appointment: 12/10/17 elephone Encounter - Bridgett Rao Cert MA - 12/16/2017 3:07 PM PSTCalled pt and left message for her to call ba rylan. elephone Encounjovana r Bridgett Bean Cert MA - 12/16/2017 3:06 PM PST----- Message from Kapil wheeler MD sent at 12/14/2017 15:11 PST ----- NO evidence for chronic sinusitis on the ct scan, There is a deviated septum . Please foll ow up with PCP for further eval/ treatment documented in this encounter Plan of Treatment Not on filedocumented as of this encounter Visit Diagnoses Not on filedocumented in this encounter"
--- OUTSIDE RECORDS SUMMARY | ~2020-05-16 | XMS | Encounter Summary ---
Demographics + + + | Address | [address] | | | [place] [address] | + + + | Home Phone | | + + + | Preferred Language | Unknown | + + + | Marital Status | Single | + + + | Caodaism Affiliation | 1013 | + + + [...] Team Providers + +------+ + | Care Bilingual Speech Therapist Name | Role | Phone | + [...] | Specialty | Physical | Diagnoses | [place], | [facility] | | | Services | Therapy / | Difficulty | James Dennis MD | Fna aCdena | | | Required | Rehabilitatio | in walking | [address] | Med Therapy | | | | n | Foot pain, | [address] [place] | [address] | | | | | bilateral | [place], [place] | [address] [place] | | | | | | [address] | [place] | | | | | | Phone: | [phone] | | | | | | [phone] | Phone: | | | | | | Fax: | [phone] | | | | | | [phone] | Fax: | | | | | | | [phone] | +--------+ + + + + + Encounter Details +--------+ + + + + | Date | Type | Department | Care Team | Description | +--------+ + + + + | 08/28/ | Orders Only | [facility] | James Farmer, | Difficulty in | | 2019 | | MEDICINE [address] | [address] | walking (Primary | | | | [address] [place], | [place], [place] | Dx); Foot pain, | | | | [place] [address] | [address] | bilateral | | | | [phone] | | | +--------+ + + + [...] + + +--------+ + + | * [facility] | Outpatient | Routin | Difficulty in | Ordered: 08/28/2019 | | [facility] | Referral | e | walking Foot pain, | | | Physical Therapy- | | | bilateral | | | AMB Referral | | | | | + + +--------+ + + documented as of this encounter Visit Diagnoses + + | Diagnosis | + + | Difficulty in walking - Primary | + + | Foot pain, bilateral | + + documented in this encounter"
--- OUTSIDE RECORDS SUMMARY | ~2020-05-16 | XMS | Encounter Summary ---
Demographics + + + | Address | [address] | | | [place] [address] | + + + | Home Phone | | + + + | Preferred Language | Unknown | + + + | Marital Status | Single | + + + | Uatsdin Affiliation | 1013 | + + + | Race | Unknown | + + + | Ethnic Group | Unknown | + + + Author + + + | Author | [facility] | | | and [place] | + + + | Organization | [facility] | | | and [...] Team Providers + +------+ + | Care Stone Rougher Name | Role | Phone | + [...] + + | Closed | Specialty | Surgery | Diagnoses | Darian, | Carmen, | | | Services | | | James Dennis MD | Savannah Majano MD | | | Required | | Pharyngoesop | [address] | [address] | | | | | hageal | [address] [place] | [address] | | | | | dysphagia | [facility] [place] | [place] [address] | | | | | Esophageal | [address] | [place], [place] | | | | | dysmotility | Phone: | [address] | | | | | | [phone] | Phone: | | | | | | Fax: | [phone] | | | | | | [phone] | Fax: | | | | | | | [phone] | +--------+ + + + + + + + | Scheduling Instructions | + + | Please send to general surgery [facility] | + + Encounter Details +--------+ + + + + | Date | Type | Department | Care Team | Description | +--------+ + + + + | 05/06/ | Orders Only | [facility] | James Farmer, | Pharyngoesophageal | | 2019 | | MEDICINE [address] | MD [address] | dysphagia (Primary | | | | [place], | [place] | Dx); Esophageal | | | | [place] [address] | [address] | dysmotility | | | | [phone] | | | +--------+ + + + [...] | + + +--------+ + + | General Surgery, | Outpatient | Routin | Pharyngoesophageal | Ordered: 05/06/2020 | | External - AMB | Referral | e | dysphagia | | | Referral | | | Esophageal | | | | | | dysmotility | | + + +--------+ + + documented as of this encounter Visit Diagnoses + + | Diagnosis | + + | Pharyngoesophageal dysphagia - Primary Dysphagia, pharyngoesophageal phase | + + | Esophageal dysmotility Dyskinesia of esophagus | + + documented in this encounter"
--- OUTSIDE RECORDS SUMMARY | ~2020-05-16 | XMS | Encounter Summary ---
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 Name | Role | Phone | + [...] | | | | | | | ([facility]) | | | | | | | [...] | | | | | | | [place] | | | | | | | grade D | | | | | | | Seizure | | | | | | | ([facility]) | | | | | | | Depression | | | | | | | with anxiety | | | | | | | Esophageal | | | | | | | dysmotility | | | | | | | | | | | | | | | | | | | | | Procedures | | | | | | | MD | | | | | | | ESOPHAGOGAST | | | | | | | RODUODENOSCO | | | | | | | PY TRANSORAL | | | | | | | DIAGNOSTIC | | | | | | | MD EGD | | | | | | | TRANSORAL | | | | | | | BIOPSY | | | | | | | SINGLE/MULTI | | | | | | | PLE MD | | | | | | | ANESTHESIA | | | | | | | UPPER GI | | | | | | | ENDOSCOPIC | | | | | | | PX NOS MD | | | | | | | DILATE | | | | | | | ESOPHAGUS | | | | | | | MD EGD | | | | | | | INJECTION | | | | | | | SCLEROSIS | | | | | | | ESOPHGL/JUN | | | | | | | HAL VARICES | | | | | | | MD | | | | | | | [...] + + + + | 04/01/ | Anesthesia | [facility] | Randolph Zazueta | | | 2019 | Event | [facility] | MD Curtis [address] | | | | | [address] | [address] [place] | | | | | [place] | [place] [address] | | | | | [address] | [phone] | | | | | [phone] | | | +--------+ + + + + Anesthesia Record + + + + + | Procedure Name | Responsible | Anesthesia Start | Anesthesia Stop Time | | | Anesthesiologist | Time | | + + + + + | ANDERSON W/ DILATATION- | Randolph Acevedo | 04/01/20 1244 | 04/01/20 1318 | | Jossie (N/A Mouth) | MD Marbin | | | + + + + + +----+---+ + + | Da | T | Event | Comment | | te | i | | | | | m | | | | | e | | | +----+---+ + + | 05 | 1 | | | | /1 | 2 | | | | 1/ | 1 | | | | 20 | 9 | | | | 20 | | | | +----+---+ + + | | 1 | An Checkout | Pre-use anesthesia machine/equipment checkout. | | | 2 | | | | | 4 | | | | | 4 | | | +----+---+ + + | | 1 | An Start | Reassessment prior to anesthesia induction/procedure. | | | 2 | | | | | 4 | | | | | 4 | | | +----+---+ + + | | 1 | Preoxygenat | | | | 2 | ed | | | | 4 | | | | | 5 | | | +----+---+ + + | | 1 | AN | Per surgeon request | | | 2 | Antibiotic | | | | 4 | declined | | | | 9 | | | +----+---+ + + | | 1 | Pre-Procedu | | | | 2 | ral Timeout | | | | 5 | Completed | | | | 0 | | | +----+---+ + + | | 1 | An | | | | 2 | Induction | | | | 5 | | | | | 1 | | | +----+---+ + + | | 1 | First | | | | 2 | Inc/Proc St | | | | 5 | | | | | 2 | | | +----+---+ + + | | 1 | Breathing | | | | 2 | Spontaneous | | | | 5 | ly | | | | 3 | | | +----+---+ + + | | 1 | an stop | | | | 3 | data | | | | 1 | | | | | 3 | | | +----+---+ + + | | 1 | An Stop | Patient handed off to recovery nurse. | | | 1 | | | | | 8 | | | +----+---+ + + +------+ | Meds | +------+ + + + | Name | Total | + + + | propofol | 50 mg | + + + | propofol | 340.65 mg | + + + | lidocaine 2% | 100 mg | + + + | midazolam | 2 mg | + + + | lactated ringers (LR) infusion | 500 mL | + + + + + | Name | + + | O2 Flow Rate (L/Min) | + + + + | No blood administrations on file. | + + +--------+ + + + | Type | Details | Placement | Removal | +--------+ + + + | Periph | 04/01/20; 1054; Right; Hand; | 04/01/20 1054 by | 04/01/20 1347 by | | eral | [id number]-[id number] catheter system; | Pushpa Kim RN | Maria Guadalupe Christianson RN | | IV | 20 gauge; 0; distraction, | | | | | intradermal injection; no longer | | | | | indicated, catheter/device | | | | | intact; short term use; 04/01/20; | | | | | 1347 | | | +--------+ + + + documented in this encounter Social History + +-------+ +--------+------+ | Tobacco [...] encounter OR Notes Anesthesia Postprocedure Evaluation - Randolph Zazueta MD - 04/01/2020 3:01 PM PDTFo rmatting of this note might be different from the original. ANESTHESIA POSTANESTHESIA EVALUATION Cherrie Quijano 59 y.o. female 1960 [id number] Procedure(s) EGD W/ DILATATION- Botox (N/A Mouth) Cooperates? Yes Mental Status Performs simple tasks. Respiratory Satisfactory - Airway patent (self maintained). Cardiovascular Satisfactory - Blood pressure and heart rate acceptable Temperature Satisfactory Pain Satisfactory N/V Control Satisfactory Hydration Satisfactory - No signs of dehydration Adverse Events ADVERSE EVENTS: No adverse events Vitals Value Taken Time Temp 36.3 C (97.3 F) 04/01/2020 1:17 PM Pulse 84 04/01/2020 1:37 PM Resp 15 04/01/2020 1:17 PM BP 114/79 04/01/2020 1:31 PM Arterial Line BP Arterial Line BP 2 SpO2 99 % 04/01/2020 1:37 PM Vitals shown include unvalidated device data. Electronically signed by Randolph Zazueta MD 04/01/2020 3:01 PM [facility] Z[facility] MD a t 04/01/2020 3:01 PM PDTAnesthesia Preprocedure Evaluation - Randolph Zazueta MD - 12:44 PM PDT ANESTHESIA PREANESTHESIA EVALUATION Cherrie Quijano 59 y.o. female 1960 [id number] Procedure(s): EGD W/ DILATATION- Botox (N/A Mouth) Medical,anesthesia, drug, allergy histories reviewed, NPO status verified. Labs reviewed. (-) perioperative beta-alex/statin not given/taken, reason: not applicab le/Not taking Beta-Alex. Review of Systems / Med History Anesthesia History Several EGDs in the past with no issues. (+) previous surgery or anesthesia. Cardiovascular Results for orders placed or performed during the hospital encounter of -ECG 12 lead Result Value Ref Ra nge INTERPRETATION TEXT Sinus rhythm with premature atrial complexes RSR' lead V1 and V2 nonspecific ST abnormalities in leads V5 6 which may be artifactual in nature though is chemia cannot be excluded Abnormal ECG No previous ECGs available Confirmed by VIRGIE MAXWELL MD ([id number]) on 07/23/2017 8:40:04 AM . Exercise tolerance >4 METS (-) hypertension . Pulmonary Negative except where noted below. (-) shortness of breath.(-) sleep apnea.(-) tobacco use. Gastrointestinal/Hepatic Esophageal dysphasia, candidiasis.(+) acid reflux. Renal Lab Results Component Value Date CREA 0.79 03/31/2020 BUN 10 03/31/2020 NA 134 (L) 03/31/2020 K 3.8 03/31/2020 CL 97 (L) 03/31/2020 CO2 28 03/31/2020 . Negative except where noted below. (+) renal/ureteral stones. Endocrine (-) obesity. (-) Diabetes. Hematology/Other Lab Results Component Value Date WBC 5.7 03/31/2020 HCT 34.1 03/31/2020 MCV 83.4 03/31/2020 PLT 219 03/31/2020 .(-) anemia. (-) coagulopathy. Cancer Negative except where noted below. Neuromuscular (+) back pain. (+) seizures: Psychology (+) psychiatric history of anxiety. Physical Exam Airway MP II, TM >3 FB, Mouth opening >2 FB. Neck: full ROM, extends >30 degrees. Jaw protrus ion normal. Facial hair present: No Dental grossly normal except where noted below. (+) chipped/broken teeth, implants(s)/bridges(s)/caps(s) and dentures-upper (partial dentur e). CV Rhythm regular. Rate normal. (-) murmur. Pulm Clear to auscultation bilaterally. Neuro grossly normal. Anesthesia Plan ASA: 3 (Seizures, electrolyte abnormalities) Type: TIVA, general. Induction: Intravenous. Potential problems: None anticipated. Monitors: Standard ASA monitors. Consent statement: Anesthetic plan, alternatives, risks and benefits discussed with patient. discussed risks t o teeth, drug reaction, heart problems, nausea, pain, perioperative CV events, respiratory e vents, sore throat, voice injury Consenting person understands and agrees to proceed. PARQ. All questions answered in pre-op area before proceeding to GI suite - agrees to plan of TIV A with possibility of advanced airway if clinically indicated. Risk of aspiration and hypoxia with endoscopy under TIVA explicitly discussed and patient d esires to proceed. Was seen in ER yesterday for anxiety and SOB - respiratory work up negative. COVID screen f rom 03/29 complete: NEGATIVE. COVID screen from 03/31 complete: NEGATIVE . Electronically Signed by: Randolph Zazueta MD ESig date/time: 04/01/2020 12:59 PM documented in t his encounter Miscellaneous Notes Anesthesia Post-op Handoff - Randolph Zazueta MD - 04/01/2020 1:18 PM PDT ANESTHESIA HANDOFF NOTE Cherrie Alexisscarlet Quijano 59 y.o. female 1960 [id number] EGD W/ DILATATION- Botox (N/A Mouth) HANDOFF NOTE Handoff Protocol Used: [...] Patient Location: Phase II Condition: sedated Airway/O2: no supplemental O2 Multimodal analgesia: multimodal analgesia not used between 6 hours prior to anesthesia sta rt to PACU discharge Multimodal analgesia not used reason: No medical reason exists for NOT using multimodal jean claude lgesia. Comments: Supplemental Oxygen administered as necessary to maintain oxygen saturations abov e 92%. If the surgery does not typically require Narcotics then Multi-Modal Analgesia is not indic ated. The significant anesthesia concerns and VS in Epic were reviewed with the receiving team. Randolph Zazueta MD 04/01/2020 1:18 PM [facility] MD debbie Real 04/01/2020 1:18 PM PDTdocumented in this encounter Plan of Treatment Not on filedocumented as of this encounter Visit Diagnoses Not on filedocumented in this encounter Administered Medications + +--------+ +--------+------+------+ | Medication Order | MAR | Action | Dose | Rate | Site | | | Action | Date | | | | + +--------+ +--------+------+------+ | lidocaine (PF) 2% injection | Given | 04/01/20 | 100 mg | | | | Intravenous, PRN, Starting Mon | | 20 12:51 | | | | | 04/01/20 at 1251, Anesthesia | | PM PDT | | | | | Intra-op | | | | | | + +--------+ +--------+------+------+ +---+---+ | | | +---+---+ + +-------+ +------+---+---+ | midazolam (VERSED) 1 mg/mL | Given | 04/01/20 | 2 mg | | | | injection Intravenous, PRN, | | 20 12:50 | | | | | Starting 04/01/20 at 1250, | | PM PDT | | | | | Anesthesia Intra-op | | | | | | + +-------+ +------+---+---+ +---+---+ | | | +---+---+ + +-------+ +-------+---+---+ | propofol (DIPRIVAN) injection | Given | 04/01/20 | 50 mg | | | | Intravenous, PRN, Starting Mon | | 20 12:51 | | | | | 04/01/20 at 1251, Anesthesia | | PM PDT | | | | | Intra-op | | | | | | + +-------+ +-------+---+---+ +---+---+ | | | +---+---+ + + + + +-------+---+ | propofol (DIPRIVAN) injection | Rate/Dos | 04/01/20 | 200 | 90.8 | | | Intravenous, CONTINUOUS PRN, | e Change | 20 1:04 | mcg/kg/m | mL/hr | | | Starting 04/01/20 at 1251, | | PM PDT | in | | | | Anesthesia Intra-op | | | | | | + + + + +-------+---+ + + + +--------+---+ | Rate/Dose Change | 04/01/20 | 250 | 113.6 | | | | 20 12:56 | mcg/kg/m | mL/hr | | | | PM PDT | in | | | + + + +--------+---+ | New Bag | 04/01/20 | 300 | 136.3 | | | | 20 12:51 | mcg/kg/m | mL/hr | | | | PM PDT | in | | | + + + +--------+---+ +---+---+ | | | +---+---+ documented in this encounter"
--- OUTSIDE RECORDS SUMMARY | ~2020-05-16 | XMS | Encounter Summary ---
Demographics + + + | Address | [address] | | | [place] [address] | + + + | Home Phone [...] + + | Author | [facility] | | | and [place] | + + + | Organization | [facility] | | [...] Team Providers + +------+ + | Care Lab Coordinator Name | Role | Phone | + +------+ + | James Farmer MD | PCP | | + +------+ + Reason for Visit +--------+--------+ + | Reason | Onset | Comments | | | Date | | +--------+--------+ + | EGD | 03/31/ | | | | 2019 | | +--------+--------+ + Encounter Details +--------+ + + + + | Date | Type | Department | Care Team | Description | +--------+ + + + + | 03/31/ | Telephone | [facility] | Loi Hui MD | EGD | | 2018 | | GASTROENTEROLOGY | [address] | | | | | [address] | [place], [place] | | | | | [address] [place], [place] | [address] | | | | | [address] | [phone] | | | | | [phone] | | | +--------+ + + + [...] Telephone Encounter - Zarina Ramon RN - 04/03/2019 8:55 AM PDTPatient called back and confirmed she can proceed on 04/05 at 1130 for EGD prop, 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 elephone En counter - Zarina Ramon RN - 04/03/2019 8:39 AM PDTThe endo coordinator approved adding EGD prop on 04/[address]ui; called patient and she has to figure out ride first and then will call me back if she can proceed. elephone Encounter - Zarina Ramon RN - 03/31/2019 10:41 AM PD TReceived Urgent referral for EGD prop due to dysphagia and esophagitis. Patient had recent ER visit and was put on clear/full liquid diet. Dr. Hui reviewed and advised we book for E GD next week. His schedule is full so have placed message to Endo coordinator to see if we c an accommodate. Spoke with patient and explained situation, and she can proceed next week if approved. We a lso will need to get urgent approval form MOD[employer] to proceed next week. She has been eating mostly soups and pudding and is afraid to "eat regular food." She can s wallow pills ok, and everything else she is consuming but feels a little discomfort in lower esophagus. If she makes belching motions then contents go down. She is drinking lots of evelyne er. She realized she stopped her isosorbide dinitrate after her last procedure, and that was helping with esophageal spasms. She has re-started that and it is helping some. She has his tory of stricture needing dilation. Once I hear back from Endo coordinator I will call patient to schedule if approved. Electro nically signed by Zarina Ramon RN at 03/31/2019 11:16 AM PDTdocumented in this encounter Plan of [...]
--- OUTSIDE RECORDS SUMMARY | ~2020-05-16 | XMS | Encounter Summary ---
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.] Description | +--------+---------+ + + + | 04/01/ | Surgery | [facility] | Nishant Snow | EGD W/ DILATATION- | | 2019 | | MED CTR MP INTRA OP | MD Tang [address] | Botox | | | | [address] | [address] [facility] | | | | | [place] | [place] [address] | | | | | [address] | [phone] | | | | | [phone] | | | +--------+---------+ + + + [...] + | Blood Pressure | 120/74 | 04/01/2020 10:00 AM | | | | | PDT | | + + + + + | Pulse | 91 | 04/01/2020 10:00 AM | | | | | PDT | | + + + + + | Temperature | 36.2 C (97.2 F) | 04/01/2020 10:00 AM | | | | | PDT | | + + + + + | Respiratory Rate | 13 | 04/01/2020 10:00 AM | | | | | PDT | | + + + + + | Oxygen Saturation | 97% | 04/01/2020 10:00 AM | | | [...] you take. This includes prescription medicines, o epo-qac-aimwftk medicines, herbs, vitamins, and other supplements. Be [...] icine to relax you. The procedure takes [id number]. It does not cause trouble breath ing. [...] Black, tarry, or bloodystools Date Last Reviewed: 05/22/[id number] People [employer] Pages. [address] [place] [address], [place] [address]. All righ ts reserved. This information is [...] Other | | | | | | toptlnmaq-zaickicu-i | (swish and swallow). | | | [...] + documented as of this encounter H&P Nishant Salcido MD - 04/01/2020 12:40 PM PDT PRE-ENDOSCOPY [...] Candidiasis, esophageal Esophagogastric junction outflow obstruction Esophagitis, Greer grade D PAST SURGICAL HISTORY Past Surgical History: Procedure Laterality Date ESOPHAGEAL DILATATION GASTRIC MANOMETRY N/A 01/31/2020 Procedure: MANOMETRY ESOPHAGEAL; Surgeon: Nishant Snow MD; Location: [facility] GI MANOMETRY 02/05/2020 UPPER GASTROINTESTINAL ENDOSCOPY N/A 11/30/2017 Procedure: EGD; Surgeon: Loi Hui MD; Location: [facility] UPPER GASTROINTESTINAL ENDOSCOPY N/A 04/05/2019 Procedure: EGD; Surgeon: Loi Hui MD; Location: [facility] UPPER GASTROINTESTINAL ENDOSCOPY N/A 09/06/2019 Procedure: EGD; Surgeon: Rodriguez Gómez MD; Location: [facility] UPPER GASTROINTESTINAL ENDOSCOPY N/A 02/20/2020 Procedure: EGD; Surgeon: Nishant Snow MD; Location: [facility] VEIN SURGERY HOME [...] 6 hours as needed for Itching. diphenhydrAMINE-visc lnofwmyvf-hsddvsph-scjrmeqeq-simethicone (MIRACLE MOUTHWASH) suspe nsion Take 5 mLs [...] Class 2 (upper half of tonsil fossa) Citizen Of [place] Society of Anesthesia Grade:ASA 3 - A [...] Electronically Signed by: Nishant Snow MD 04/01/2020 [facility] VERIFICATION OF CONSENT (PARQ) The patient counseled regarding the procedure, its indications, risks, potential complicati ons and alternatives. Any questions were answered. Consent was obtained. Nishant Snow MD, 04/01/2020 12:40 PM [facility] Portions of this chart may have been created with [email or web address] voice recognition software. Occasi onal wrong-word or [...] Endoscopy Patient: Cherrie Quijano : 1960 Acct: [id number] Exam Date: Wednesday, April 01, 2020 Doctor: [...] If unable to reach your physician, call [facility] Emergency Department at Ext. 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 - avoid nsaid medications (ibuprofen) [...] | | | 12:45 PM | esophageal ([facility]) | | | | | PDT | Esophageal dysphagia | | | | | | Esophagogastric | | | | | | junction outflow | | | | | | obstruction | | | | | | Esophagitis, [place] | | | | | | Flavia grade D | | | | | | Seizure ([facility]) | | | | | | Depression with | | | | | | anxiety Esophageal | | | | | | dysmotility | | + +--------+ + + + | *TERMED* [place] UPPER GI | Routin | 04/01/2020 | [...] d At | + +--------- -----+ | [facility] | GIOVANI | | [facility] CenterMestroenterologyPatient Name: Cherrie Quijano | BIANCA Calabrese | | DawnProcedure Date: 04/01/2020 12:39 PMMRN: [id number] Number: | | | [id number] of : 1960Note Status: FinalizedAttending | | | MD: NISHANT SNOW MDProcedure Type: Upper GI | | [...] Mares's stage C1-M3 | | | per [place] criteria present in the lower third of [...] Mares's stage | | | C1-M3 per [place] criteria. Not due to have surveillance | [...] pantoprazole 40mg once daily | | | senior care - avoid nsaid medications (ibuprofen) as this is the | | | likely cause of the gastric erosion.NISHANT SNOW | | | 04/01/2020 1:27:08 PMThis report has been signed electronically.Note | | | Initiated On: 04/01/2020 12:39 PMNumber of Addenda: 0 [place] | | | [facility] | | | criteria are met. | [...] | - Continue pantoprazole 40mg once daily senior care | | | - avoid nsaid medications (ibuprofen) as this is the likely cause of the | | | gastric erosion. | | |NISHANT SNOW MD | | |04/01/2020 1:27:08 PM | | |This report has been signed electronically. | | |Note Initiated On: 04/01/2020 12:39 PM | | |Number of Addenda: 0 | | | [facility] | | + +--------- -----+ + +---------+ [...] outflow obstruction | + + | Esophagitis, Greer grade D | + + | Seizure [...] outflow obstruction | + + | Esophagitis, Greer grade D | + + | Seizure [...] One week or | | | longer, zqadii-zcz-pexpn use of | | | at least [...] PRN, Nausea, | | | Vomiting, Starting 04/01/20 at | | | 1318, For 1 [...] PRN, Nausea, Vomiting, | | | Starting Wed04/01/20 at 1318, | | | Recovery/Phase I [...]
--- OUTSIDE RECORDS SUMMARY | ~2020-05-16 | XMS | Encounter Summary ---
Demographics + + + | Address | [address] | | | [place] [address] | + + + | Home Phone [...] + + + | Author | [facility] | | | and [place] | + + + | Organization | [facility] | | | [...] Providers + +------+ + | Care Senior Associate Name | Role | Phone | + +------+ + | James Farmer MD | PCP | | + +------+ + Reason for Visit +--------+ + | Reason | Comments | +--------+ + | Cough | exam 7/ chest congestion, headache x 5 days | +--------+ + Encounter Details +--------+---------+ + + + | Date | Type | Department | Care Team | Description | +--------+---------+ + + + | 12/30/ | Office | [facility] | [facility] | Bronchitis (Primary | | 2020 | Visit | [facility]ARE [address] | Kapil Beckwith MD | Dx) | | | | [place] | [address] | | | | | [phone] | [place] | | | | | [phone] | [id number] | | | | | | | [...] + + + | Blood Pressure | 109/76 | 12/30/2019 10:04 AM | | | | | PST | | + + + + + | Pulse | 79 | 12/30/2019 10:04 AM | | | | | PST | | + + + + + | Temperature | 37.3 C (99.1 F) | 12/30/2019 10:04 AM | | | | | PST | | + + + + + | Respiratory Rate | 16 | 12/30/2019 10:04 AM | | | | | PST | | + + + + + | Oxygen Saturation | 98% | 12/30/2019 10:04 AM | | | | | PST | | + + + + + | Inhaled Oxygen | - | - | | | Concentration | | | | + + + + + | Weight | 72 kg (158 lb 11.7 | 12/30/2019 10:04 AM | | | | oz) | PST | | + + + + + | Height | 160 cm (5' 3") | 12/30/2019 10:04 AM | | | | | PST | | + + + + + | Body Mass Index | 28.12 | 12/30/2019 10:04 AM | | | | | PST | | + + + + + documented in this encounter Patient Instructions Patient Instructions Kapil Winter MD - 12/30/2019 10:00 AM PST Bronchitis, Antibiotic Treatment (Adult) Bronchitis is an infection of the air passages (bronchial tubes) in your lungs. It often oc curs when you have a cold. This illness is contagious during the first few days and is sprea d through the air by coughing and sneezing, or by direct contact (touching the sick person a nd then touching your own eyes, nose, or mouth). Symptoms of bronchitis include cough with mucus (phlegm) and low-grade fever. Bronchitis us ually lasts 7 to 14 days. Mild cases can be treated with simple home remedies. More severe i nfection is treated with an antibiotic. Home care Follow these guidelines when caring for yourself at home: If your symptoms are severe, rest at home for the first 2 to 3 days. When you go back to your usual activities, don't let yourself get too tired. Don't smoke. Also stay away from secondhand smoke. You may use kddw-rxd-mgmacch medicines to control fever or pain, unless another medicine was prescribed. If you have chronic liver or kidney disease or have ever had a stomach ulce r or gastrointestinal bleeding, talk with your healthcare provider before using these medici marco antonio. Also talk to your provider if you are taking medicine to prevent blood clots. Aspirin s hould never be given to anyone younger than 18 who is ill with a viral infection or fever. I t may cause severe liver or brain damage. Your appetite may be low, so a light diet is fine. Stay well hydrated by drinking 6 to 8 glasses of fluids per day. This includes water, soft drinks, sports drinks, juices, tea, or soup. Extra fluids will help loosen mucus in your nose and lungs. Jesl-agm-wyaqezg cough, cold, and sore-throat medicines will not shorten the length of t he illness, but they may be helpful to reduce your symptoms. Don't use decongestants if you have high blood pressure. Finish all antibiotic medicine. Do this even if you are feeling better after only a few days. Follow-up care Follow up with your healthcare provider, or as advised. If you had an X-ray or ECG (electro cardiogram), a specialist will review it. You will be told of any new test results that may affect your care. If you are age 65 or older, if you smoke, or if you have a chronic lung disease or conditio n that affects your immune system, askyour healthcare provider about getting apneumococc al vaccine and a yearly flu shot (influenza vaccine). When to seek medical advice Call your healthcare provider right away if any of these occur: Fever of 100.4F (38C) or higher, or as directed by your healthcare provider Coughing up more sputum Weakness, drowsiness, headache, facial pain, ear pain, or a stiff neck Call 911 Call 911 if any of these occur. Coughing up blood Weakness, drowsiness, headache, or stiff neck that get worse Trouble breathing, wheezing, or pain with breathing Date Last Reviewed: 04/22/201819994251-5110 [email or web address]. [address] [place] [address], [place] [address]. All [facility] ts reserved. This information is not intended as a substitute for professional medical care. Always follow your healthcare professional's instructions. documented in this encounter Progress Notes Kapil Winter MD - 12/30/2019 10:00 AM PSTFormatting of this note might be di fferent from the original. Subjective: Chief Complaint: Cough (exam 7/ chest congestion, headache x 5 days) Cherrie is a 59 y.o. female who comes in complaining of cough. HPI is 59-year-old presents with 5-day history of cough. She has foul yellow dark sputum p roduction that is increasing daily. She has malaise chills without documented fever. There is no nausea or vomiting. She has headache without otalgia. She has no known ill contacts . She did have a flu shot this season. Patient's medications, allergies, past medical, surgical, social and family histories were reviewed and updated as appropriate. ROS See above Objective: BP 109/76 | Pulse 79 | Temp 37.3 C (99.1 F) (Temporal) | Resp 16 | Ht 1.6 m (5' 3") | Wt 72 kg (158 lb 11.7 oz) | LMP (LMP Unknown) | SpO2 98% | BMI 28.12 kg/m Physical Exam Nontoxic vital signs as noted. Sinuses nontender to percussion. TMs normal throat no exudate or redness or swelling of th e tonsils. Neck supple no adenopathy Lungs with scattered rhonchi. No rales wheezes dullness. There is mild egophony in the ba ses. No decrease in tactile fremitus. Heart RRR no MRG No results found for this or any previous visit (from the past 24 hour(s)). Assessment and Plans: 1. Bronchitis Azithromycin Tessalon increase fluids RTC PRN AVS printed and patient agrees to plan This note was dictated using [employer] voice recognition software. Occasional wrong- word or s ound-alike substitutions may have occurred due to the inherent limitations of voice recognit ion software. Please read the chart carefully and recognize, using context, where these subs titutions have occurred. documented in this encounter Plan of Treatment Not on filedocumented as of this encounter Visit Diagnoses + + | Diagnosis | + + | Bronchitis - Primary Bronchitis, not specified as acute or chronic | + + documented in this encounter
--- OUTSIDE RECORDS SUMMARY | ~2020-05-16 | XMS | Encounter Summary ---
Demographics + + + | Address | [address] | | | [place] [address] | + + + | Home Phone [...] + + | Author | [facility] | | | and [place] | + + + | Organization | [facility] | | | [...] Team Providers + +------+ + | Care Press Feeder [place]roomcorn Name | Role | Phone | + +------+ + | James Farmer MD | PCP | | + +------+ + Reason for Visit + + + | Reason | Comments | + + + | Sinus Problem | Exam 2; nasal congestion, cough, sinus pressure, headache since | | | [place] | + + + Encounter Details +--------+---------+ + + + | Date | Type | Department | Care Team | Description | +--------+---------+ + + + | 10/22/ | Office | [facility] | Rodriguez Pena, | Maxillary sinusitis, | | 2017 | Visit | [facility] [address] | [address] | unspecified | | | | [place] | [place] | chronicity (Primary | | | | [phone] | [id number] | Dx); Upper | | | | [phone] | | respiratory tract | | | | | | infection, | | | | | | unspecified type; | | | | | | Fever, unspecified | | | | | | fever cause | +--------+---------+ + + + Social History [...] + + + | Blood Pressure | 86/61 | 10/22/2017 9:46 AM | | | | | PST | | + + + + + | Pulse | 92 | 10/22/2017 9:46 AM | | | | | PST | | + + + + + | Temperature | 37.8 C (100.1 F) | 10/22/2017 9:46 AM | | | | | PST | | + + + + + | Respiratory Rate | 18 | 10/22/2017 9:46 AM | | | | | PST | | + + + + + | Oxygen Saturation | 99% | 10/22/2017 9:46 AM | | | | | PST | | + + + + + | Inhaled Oxygen | - | - | | | Concentration | | | | + + + + + | Weight | 79.2 kg (174 lb 9.7 | 10/22/2017 9:46 AM | | | | oz) | PST | | + + + + + | Height | 157.5 cm (5' 2") | 10/22/2017 9:46 AM | | | | | PST | | + + + + + | Body Mass Index | 31.94 | 10/22/2017 9:46 AM | | | | | PST | | + + + + + documented in this encounter Patient Instructions Patient Instructions Rodriguez Pena MD - 10/22/2017 9:45 AM PSTGet plenty of rest and w ater. Take the Augmentin as directed. Recheck as needed. documented in this encounter Progress Notes Rodriguez Pena MD - 10/22/2017 9:45 AM PSTFormatting of this note might be different fr om the original. Subjective: Patient ID: Cherrie Quijano is a 56 y.o. female. HPI Patient's medications, allergies, past medical, surgical, social and family histories were obtained and reviewed as appropriate. This lady came in with 5 days of congestion and some cough but now mainly complaining of te nderness in her sinuses. She also has had a fever the last day or so. She has had no vomit ing or other complaint. I reviewed her past history and meds. Review of Systems Constitutional: Positive for fever. HENT: Positive for congestion and sinus pressure. Respiratory: Positive for cough. Cardiovascular: Negative. Gastrointestinal: Negative. Objective: Physical Exam Constitutional: She is oriented to person, place, and time. She appears well-developed and well-nourished. No distress. HENT: Head: Normocephalic. Right Ear: External ear normal. Left Ear: External ear normal. Mouth/Throat: Oropharynx is clear and moist. Moderate nasal congestion. Moderate tenderness with pressure over the maxillary sinuses. Eyes: Conjunctivae are normal. Pupils are equal, round, and reactive to light. Neck: Normal range of motion. Cardiovascular: Normal rate, regular rhythm and normal heart sounds. Pulmonary/Chest: Effort normal and breath sounds normal. Occasional cough Musculoskeletal: Normal gait and balance Lymphadenopathy: She has no cervical adenopathy. Neurological: She is alert and oriented to person, place, and time. Vitals reviewed. Assessment: 1. Maxillary sinusitis, unspecified chronicity 2. Upper respiratory tract infection, unspecified type 3. Fever, unspecified fever cause Plan: Please see the AVS for the plan unless outlined elsewhere. I discussed the situation with her. I will give her prescription for Augmentin 875 mg 1 by mouth twice a day #20. She can rest and push fluids. She can use NyQuil at night for the cough which she has been using and I said that was okay. Since she has a fever she should s hermilo home for the next day and not work. She can use Tylenol for the fever. Recheck as need ed. She had no questions. documented in this e ncounter Plan of Treatment Not on filedocumented as of this encounter Visit Diagnoses + + | Diagnosis | + + | Maxillary sinusitis, unspecified chronicity - Primary | + + | Upper respiratory tract infection, unspecified type | + + | Fever, unspecified fever cause | + + documented in this encounter
--- OUTSIDE RECORDS SUMMARY | ~2020-05-16 | XMS | Clinical Summary ---
Demographics + + + | Address | [address] | | | [facility] [address] | + + + | Home Phone | | + + + | Preferred Language | Unknown | + + + | Marital Status | Single | + + + | [employer] Aff[employer] | 1013 | + + + [...] Providers + +------+ + | Care Supervising Librarian Name | Role | Phone | + +------+ + | Rianna Farmer MD | PCP | | + +------+ + Allergies + + + + + + | Active Allergy | Reactions | Severity | Noted | Comments | | | | | Date | | + + + + + + | Imipramine | Hallucination | | 04/16/20 | | | | | | 20 | | + + + + + + | Hyoscyamine | Swelling | | 04/09/20 | | | | | | 20 | | + + + + + + Medications + + + +---------+------+------+-------+ | Medication | Sig | Dispensed | Refills | Star | End | Statu | | | | | | t | Date | s | | | | | | Date | | | + + + +---------+------+------+-------+ | Cyanocobalamin | Take 1 tablet by | | 0 | | | Activ | | (B-12 PO) | mouth Daily. | | | | | e | + + + +---------+------+------+-------+ | ascorbic acid | Take 500 mg by mouth | | 0 | | | Activ | | (VITAMIN C) 500 mg | Daily. | | | | | e | | chewable tablet | | | | | | | + + + +---------+------+------+-------+ | bismuth | Take 524 mg by mouth | | 0 | | | Activ | | subsalicylate (PEPTO | Daily as needed. | | | | | e | | BISMOL) 262 mg | | | | | | | | chewable tablet | | | | | | | + + + +---------+------+------+-------+ | UNABLE TO FIND | Take 1-2 capsules by | | 0 | | | Activ | | | mouth Daily. Focus | | | | | e | | | Factor | | | | | | + + + +---------+------+------+-------+ | Multiple Vitamin | Take 1 tablet by | | 0 | | | Activ | | (MULTI-VITAMIN PO) | mouth Daily. | | | | | e | + + + +---------+------+------+-------+ | pantoprazole | Take 1 tablet by | 30 | 8 | 02/ | | Activ | | (PROTONIX) 40 mg | mouth every morning | tablet | | /20 | | e | | tablet | (before breakfast). | | | 20 | | | + + + +---------+------+------+-------+ | ibuprofen (ADVIL, | Take 400 mg by mouth | | 0 | | | Activ | | MOTRIN) 200 mg | every 6 hours as | | | | | e | | tablet | needed for Pain. | | | | | | + + + +---------+------+------+-------+ | non-formulary | Take 2 tablets by | | 0 | | | Activ | | medication | mouth Daily. Super | | | | | e | | | Energy supplement | | | | | | + + + +---------+------+------+-------+ | Lidocaine HCl | Take 10 mLs by mouth | 240 mL | 0 | 04/2 | | Activ | | (MAGIC + NYSTATIN | every 4 hours. | | | 8/20 | | e | | MOUTHWASH) | | | | 20 | | | + + + +---------+------+------+-------+ | | Take 5 mLs by mouth | 240 mL | 2 | 04/3 | | Activ | | diphenhydrAMINE-visc | every 6 hours as | | | 0/20 | | e | | | needed for Other | | | 20 | | | | [id number]-a | (swish and swallow). | | | | | | | agnesium-simethicone | (RECIPE = 1:1:1 | | | | | | | (MIRACLE MOUTHWASH) | mixture of Maalox, | | | | | | | suspension | diphenhydrAMINE, | | | | | | | | viscous lidocaine) | | | | | | + + + +---------+------+------+-------+ | busPIRone (BUSPAR) | TAKE 1 TABLET BY | 30 | 2 | 05/0 | | Activ | | 5 mg tablet | MOUTH 3 TIMES DAILY | tablet | | 6/20 | | e | | | NEEDED FOR | | | 20 | | | | | ANXIETY | | | | | | + + + +---------+------+------+-------+ | EPINEPHrine | Inject 0.3 mLs into | 1 each | 0 | 05/1 | | Activ | | auto-injector 0.3 | the muscle as needed | | | 5/20 | | e | | mg/0.3 mL injection | for Anaphylaxis. | | | 20 | | | + + + +---------+------+------+-------+ | imipramine | Take 1 tablet by | 30 | 0 | 05/1 | | Activ | | (TOFRANIL) 25 mg | mouth nightly. | tablet | | 9/20 | | e | | tabletIndications: | | | | 20 | | | | Esophageal | | | | | | | | dysmotility | | | | | | | + + + +---------+------+------+-------+ | LORazepam (ATIVAN) | Take 1 tablet by | 10 | 0 | 05/2 | | Activ | | 1 mg tablet | mouth Daily as | tablet | | 1/20 | | e | | | needed for Anxiety. | | | 20 | | | + + + +---------+------+------+-------+ | traZODone | Take 1 tablet by | 30 | 2 | 05/2 | | Activ | | (DESYREL) 50 mg | mouth nightly as | tablet | | 9/20 | | e | | tablet | needed for Insomnia. | | | 20 | | | + + + +---------+------+------+-------+ | nitroglycerin | Place 1 tablet under | 25 | 2 | 06/0 | | Activ | | (NITROSTAT) 0.4 mg | the tongue every 5 | tablet | | 5/20 | | e | | SL tablet | minutes as needed | | | 20 | | | | | for Chest pain. May | | | | | | | | take 15 minutes | | | | | | | | before eating to | | | | | | | | prevent esophageal | | | | | | | | spasm | | | | | | + + + +---------+------+------+-------+ | benzonatate | Take 1 capsule by | 30 | 0 | 02/0 | 05/3 | Disco | | (TESSALON) 200 MG | mouth 3 times daily | capsule | | 07/11 | 12/11 | ntinu | | capsule | as needed for Cough. | | | 20 | 20 | ed | | | | | | | | (Concepción | | | | | | | | ent | | | | | | | | Not | | | | | | | | Takin | | | | | | | | g) | + + + +---------+------+------+-------+ | dilTIAZem | TAKE ONE TABLET BY | 120 | 5 | 05/1 | 05/2 | Disco | | (CARDIZEM) 60 mg | MOUTH FOUR TIMES | tablet | | 07/11 | 9 | ntinu | | tablet | DAILY | | | 20 | 20 | ed | + + + +---------+------+------+-------+ + + +-------+ +------+------+-------+ | Hospital, Clinic, or | Ordered | Route | Frequency | Star | End | Statu | | Other Facility | Dose | | | t | Date | s | | Administered | | | | Date | | | | Medication | | | | | | | + + +-------+ +------+------+-------+ | nitroglycerin | 0.4 mg | SL | EVERY 5 MIN PRN | 06/ | | Activ | | (NITROSTAT) SL | | | | 5/20 | | e | | tablet 0.4 mg | | | | 20 | | | + + +-------+ +------+------+-------+ Active Problems + + + | Problem | Noted Date | + + + | Esophagogastric junction outflow obstruction | 03/25/2020 | + + + + + | Overview: Added automatically from request for surgery | | [id number] | + + + + + | Esophagitis, [place] grade D | 03/25/2020 | + + + + + | Overview: Added automatically from request for surgery | | [id number] | + + + + + | Candidiasis, esophageal | 03/19/2020 | + + + | Esophageal dysphagia | 01/25/2020 | + + + + + | Overview: Added automatically from request for surgery | | [id number] | + + + + + | Tertiary contraction of esophagus | 11/20/2019 | + + + | Gait disturbance | 10/26/2019 | + + + | Reduced mobility | 10/09/2019 | + + + | Weakness of both lower extremities | 10/09/2019 | + + + | Chronic bilateral low back pain without sciatica | 06/02/2019 | + + + | Impaired functional mobility, balance, gait, and endurance | 06/02/2019 | + + + | Unsteady gait | 06/02/2019 | + + + | Oropharyngeal dysphagia | 04/04/2019 | + + + + + | Overview: Added automatically from request for surgery | | [id number] | + + + + + | GERD (gastroesophageal reflux disease) | 11/30/2017 | + + + | Benzodiazepine dependence | 11/25/2017 | + + + | Esophageal dysmotility | 08/31/2017 | + + + | Globus hystericus | 08/31/2017 | + + + | Thrombocytopenia | 07/23/2017 | + + + | Severe protein-calorie malnutrition | 07/22/2017 | + + + | Hyponatremia | 07/21/2017 | + + + + + | Overview: Jun 2017: She was prepping for EGD/colonoscopy | | & developed hyponatremia; her presenting Na+ was 111. She | | received hypertonic saline and x8 hrs later was 120, up to 125 | | x24 hrs later. She received further IV fluids & ddAVP. At 48 | | hr christiano, her Na+ was 140. | + + +---------+ + | Seizure | 07/21/2017 | +---------+ + + + | Overview: Na was 111 - status epilepticus. Jun [id number] yof w/ | | a PMH of GERD and severe dysphagia presented to ED with status | | epilepticus and severe symptomatic hyponatremia. She was | | undergoing a bowel prep for an EGD and states she developed | | extreme thirst and kept drinking water. She was found to have a | | Na of 111, upon arrival to this was 114. She was given | | hypertonic saline and this overcorrected to 126, thus she was | | switched to 1/2NS. Her hospital course was complicated by | | encephalopathy which was thought to be due to a post ictal state | | and her hyponatremia. | + + + + + | Special screening for malignant neoplasms, colon | 07/20/2017 | + + + | Dysphagia | 06/16/2017 | + + + | Hiatal hernia with GERD | 06/16/2017 | + + + | Reflux esophagitis | 05/14/2017 | + + + | Conversion disorder | 05/14/2017 | + + + | Depression with anxiety | | + + + | Obesity, Class I, BMI 30-34.9 | | + + + | PERIMENOPAUSAL SYNDROME | | + + + + + | Overview: ICD-10 Record update | + + + +---+ | FH DEPRESSION | | + +---+ | FH DIABETES | | + +---+ | FH STROKE | | + +---+ | Hematuria | | + +---+ Resolved Problems + + + + | Problem | Noted | Resolved | | | Date | Date | + + + + | SIRS (systemic inflammatory response syndrome) | 07/22/20 | | | | 17 | 7 | + + + + | Normocytic anemia | 07/22/20 | | | | 17 | 7 | + + + + | Acute metabolic encephalopathy | 07/21/20 | | | | 17 | 7 | + + + + Encounters +--------+ + + + + | Date | Type | Specialty | Care Team | Description | +--------+ + + + + | 05/13/ | Telephone | Gastroenterology | Nishant Snow | Dysphagia | | 2019 | | | MD Tang | | +--------+ + + + + | 05/10/ | Telephone | Internal Medicine | Rianna Farmer, | Patient Concerns | | 2019 | | | | | +--------+ + + + + | 05/06/ | Orders Only | Internal Medicine | Rianna Farmer, | Pharyngoesophageal | | 2019 | | | | dysphagia (Primary | | | | | | Dx); Esophageal | | | | | | dysmotility | +--------+ + + + + | 05/06/ | Telephone | Internal Medicine | Rianna Farmer, | Referral | | 2019 | | | MD | | +--------+ + + + + | 05/02/ | Orders Only | Internal Medicine | Rianna Farmer, | Other insomnia | | 2019 | | | MD | (Primary Dx) | +--------+ + + + + | 05/01/ | Orders Only | Internal Medicine | Rianna Farmer, | Pharyngoesophageal | 2019 | | | MD | dysphagia (Primary | | | | | | Dx); Esophageal | | | | | | dysmotility | +--------+ + + + + | 05/01/ | Telephone | Internal Medicine | Rianna Farmer, | Referral | 2019 | | | MD | | +--------+ + + + + | 05/01/ | Telephone | Internal Medicine | Rianna Farmer, | Referral | 2019 | | | MD | | +--------+ + + + + | 04/29/ | Office | Rehabilitation | Luz Serrano, | Oropharyngeal | 2019 | Visit | | Speech Pathologist | dysphagia (Primary | | | | | Hans Denise, | Dx) | | | | | Aide | | +--------+ + + + + | 04/29/ | Telephone | Internal Medicine | Rianna Farmer, | Sleep Apnea; | 2019 | | | MD | Medication Reaction | +--------+ + + + + | 04/27/ | Emergency | Emergency Medicine | Rianna Cornejo, | Esophageal stricture | 2019 | | | MD | (Primary Dx); | | | | | | Dysphagia, | | | | | | unspecified type | +--------+ + + + + | 04/26/ | Office | Internal Medicine | Rianna Farmer, | Pharyngoesophageal | | 2019 | Visit | | MD | dysphagia (Primary | | | | | | Dx); Globus | | | | | | hystericus | +--------+ + + + + | 04/26/ | Orders Only | Internal Medicine | Rianna Farmer, | | | 2019 | | | MD | | +--------+ + + + + | 04/26/ | Telephone | Internal Medicine | Rianna Farmer, | Medication Problem | | 2019 | | | MD | | +--------+ + + + + | 04/26/ | Telephone | Internal Medicine | Rianna Farmer, | Other | 2019 | | | MD | | +--------+ + + + + | 04/25/ | Telephone | Internal Medicine | Rianna Farmer, | Medication Question | 2019 | | | | | +--------+ + + + + | 04/23/ | Telephone | Internal Medicine | Rianna Farmer, | Sleep Apnea | | 2019 | | | | | +--------+ + + + + | 04/23/ | Orders Only | Internal Medicine | Rianna Farmer, | Esophageal | | 2019 | | | | dysmotility (Primary | | | | | | Dx) | +--------+ + + + + | 04/21/ | Office | Immediate Care | Moy | Eustachian tube | | 2019 | Visit | | Kapil Beckwith MD | disorder, right | | | | | | (Primary Dx) | +--------+ + + + + | 04/19/ | Office | Internal Medicine | Rianna Farmer, | Oropharyngeal | | 2019 | Visit | | MD | dysphagia (Primary | | | | | | Dx); Gait | | | | | | disturbance; | | | | | | Esophageal | | | | | | dysmotility; | | | | | | Conversion disorder | +--------+ + + + + | 04/16/ | Telephone | Internal Medicine | Rianna Farmer, | Medication Question | 2019 | | | MD | | +--------+ + + + + | 04/16/ | Telephone | Gastroenterology | Nishant Snow | Follow-up (ED 04/11) | | 2020 | | | MD Tang | | +--------+ + + + + | 04/12/ | Telephone | Case Management | Miesha Galindo | ED Follow-up (after | 2019 | | | | ED follow up-call | | | | | | back) | +--------+ + + + + | 04/12/ | Telephone | Case Management | Miesha Galindo | ED Follow-up (after | | 2019 | | | | ED follow up call) | +--------+ + + + + | 04/12/ | Telephone | Internal Medicine | Rianna Farmer, | ER Follow-up (Throat | 2019 | | | MD | issues ) | +--------+ + + + + | 04/11/ | Emergency | Emergency Medicine | Jose De Jesus Cerna, | Anxiety (Primary Dx) | | 2019 | | | MD | | +--------+ + + + + | 04/11/ | Clinical | Immediate Care | John, | Patient left after | | 2019 | Support | | KELLY Godoy | triage (Primary Dx) | +--------+ + + + + | 04/11/ | Telephone | Gastroenterology | Nishant Snow | Other | 2019 | | | MD Tang | | +--------+ + + + + | 04/09/ | Virtual | Gastroenterology | Nishant Snow | Esophageal | | 2019 | Office | | MD Tang | dysmotility (Primary | | | Visit | | | Dx) | +--------+ + + + + | 04/08/ | Telephone | Gastroenterology | Nishant Snow | Other | 2019 | | | MD Tang | | +--------+ + + + + | 04/07/ | Refill | Internal Medicine | Rianna Farmer, | Medication Refill | | 2019 | | | | | +--------+ + + + + | 04/05/ | Emergency | Emergency Medicine | Josh Quiles | Medication side | 2019 | | | MD Jamie | effect (Primary Dx); | | | | | | Dysphagia, | | | | | | unspecified type | +--------+ + + + + | 04/05/ | Telephone | Gastroenterology | Nishant Snow | Other | | 2019 | | | MD Tang | | +--------+ + + + + | 04/03/ | Telephone | Gastroenterology | Nishant Snow | Dysphagia | 2019 | | | MD Tang | (difficulty with | | | | | | soft food diet; | | | | | | constant burping) | +--------+ + + + + | 04/01/ | Anesthesia | | Randolph Zazueta | | | 2019 | Event | | MD Curtis | | +--------+ + + + + | 04/01/ | Surgery | | Nishant Snow | EGD W/ DILATATION- | 2019 | | | MD Tang | Botox | +--------+ + + + + | 04/01/ | Hospital | | Nishant Snow | Esophageal | | 2019 | Encounter | | MD Tang | dysphagia; | | | | | | Esophageal | | | | | | dysmotility; Gastric | | | | | | erosion with | | | | | | bleeding | +--------+ + + + + | 04/01/ | Telephone | Gastroenterology | Nishant Snow | Other | | 2019 | | | MD Tang | | +--------+ + + + + | 03/31/ | Emergency | Emergency Medicine | Jose De Jesus Cerna, | Shortness of breath | | 2019 | | | MD | (Primary Dx) | +--------+ + + + + | 03/29/ | Clinical | Immediate Care | oJsh Hedrick | Preop testing | 2019 | Support | | KELLY Frias | (Primary Dx); | | | | | | Esophageal dysphagia | +--------+ + + + + | 03/28/ | Telephone | Internal Medicine | Rianna Farmer, | Referral; LABS | 2019 | | | MD | | +--------+ + + + + | 03/27/ | Refill | Internal Medicine | Rianna Farmer, | Medication Refill | 2019 | | | MD | | +--------+ + + + + | 03/27/ | Telephone | Gastroenterology | Nishant Snow | Other | | 2019 | | | MD Tang | | +--------+ + + + + | 03/25/ | Telephone | Gastroenterology | Nishant Snow | Pre-Procedure | | 2019 | | | MD Tang | (questions) | +--------+ + + + + | 03/21/ | Telephone | Gastroenterology | Nishant Snow | Medication Orders | | 2019 | | | MD Tang | | +--------+ + + + + | 03/21/ | Telephone | Gastroenterology | Nishant Snow | Pre-Procedure | | 2020 | | | MD Tang | (information/testing | | | | | | COVID/insurance) | +--------+ + + + + | 03/19/ | Virtual | Gastroenterology | Nishant Snow | Esophageal dysphagia | | 2019 | Office | | MD Tang | (Primary Dx); | | | Visit | | | Esophageal | | | | | | dysmotility; | | | | | | Candidiasis, | | | | | | esophageal (HCC) | +--------+ + + + + | 03/17/ | Clinical | Immediate Care | Josh Hedrick | Dysphasia (Primary | | 2019 | Support | | KELLY Frias | Dx) | +--------+ + + + + | 03/14/ | Telephone | Gastroenterology | Nishant Snow | Procedure (EGD) | | 2019 | | | MD Tang | | +--------+ + + + + | 03/11/ | Emergency | Emergency Medicine | Kam Brito MD | Dysphagia, | | 2019 - | | | | unspecified type | | | | | | (Primary Dx) | | 03/12/ | | | | | | 2019 | | | | | +--------+ + + + + | 03/11/ | Refill | Internal Medicine | Rianna Farmer, | Medication Refill | 2019 | | | | | +--------+ + + + + | 03/08/ | Telephone | Gastroenterology | Nishant Snow | Dysphagia | | 2019 | | | MD Tang | | +--------+ + + + + | 02/26/ | Telephone | Gastroenterology | Nishant Snow | Dysphagia | | 2019 | | | MD Tang | | +--------+ + + + + | 02/19/ | Anesthesia | | Ayad Abraham | | | 2019 | Event | | MD Gerber | | +--------+ + + + + | 02/19/ | Surgery | | Nishant Snow | EGD | | 2019 | | | MD Tang | | +--------+ + + + + | 02/19/ | Hospital | | Nishant Snow | Esophageal dysphagia | | 2019 | Encounter | | MD Tang | | +--------+ + + + + | 02/19/ | Telephone | Gastroenterology | Nishant Snow | Follow-up (post | | 2019 | | | MD Tang | procedure) | +--------+ + + + + | 02/19/ | Orders Only | Gastroenterology | Nishant Snow | Candidiasis, | | 2020 | | | MD Tang | esophageal (HCC) | | | | | | (Primary Dx) | +--------+ + + + + from Last 3 Months Immunizations + + + + | Name | Administration Dates | Next Due | + + + + | HEP A/HEP B, 3 DOSE | 04/08/2011 | | | (ADULT) | | | + + + + | INFLUENZA PF | 09/29/2019 | | | QUAD(PED/ADOL/ADULT) | | | | ,PSKT or VIAL | | | + + + + | INFLUENZA QUADR | 09/29/2019 | | | W/PRES | | | | (PED/ADOL/ADULT) | | | | MULTIDOSE | | | + + + + | INFLUENZA, | 12/18/2017 | | | UNSPECIFIED | | | | FORMULATION | | | + + + + | MMR, 2 DOSE | 04/21/2011, 03/25/1990 | | | (PED/ADULT) | | | + + + + | PPD Test | 04/21/2011 | | + + + + | TD PF (2 LF TETANUS) | 11/22/1995 | | | (ADOL/ADULT) | | | + + + + | TDAP, (ADOL/ADULT) | 04/08/2011 | | + + + + | ZOSTER NON-LIVE | 03/27/2020, 09/29/2019 | | | (SHINGRIX) | | | + + + + Family History + + +------+ + | Medical History | Relation | Name | Comments | + + +------+ + | Sleep apnea | Other | | family history | + + +------+ + | Depression | Paternal | | | | | Grandfath | | | | | er | | | + + +------+ + | Diabetes | Paternal | | | | | Grandfath | | | | | er | | | + + +------+ + | Heart attack | Paternal | | | | | Grandmoth | | | | | er | | | + + +------+ + | Heart disease | Paternal | | | | | Grandmoth | | | | | er | | | + + +------+ + | High blood pressure | Paternal | | | | | Grandmoth | | | | | er | | | + + +------+ + | Brain cancer | Neg Hx | | | + + +------+ + | Colon cancer | Neg Hx | | | + + +------+ + | Colon polyps | Neg Hx | | | + + +------+ + | Endometrial cancer | Neg Hx | | | + + +------+ + | Irritable bowel | Neg Hx | | | | syndrome | | | | + + +------+ + | Ovarian cancer | Neg Hx | | | + + +------+ + | Pancreatic Cancer | Neg Hx | | | + + +------+ + + +------+--------+ + | Relation | Name | Status | Comments | + +------+--------+ + | Father | | Alive | | + +------+--------+ + | Mother | | Alive | | + +------+--------+ + | Other | | | | + +------+--------+ + | Paternal Grandfather | | | | + +------+--------+ + | Paternal Grandmother | | | | + +------+--------+ + Social History + +-------+ +--------+------+ | [...] on file | | + + + Last Filed Vital Signs + + + + + | Vital Sign | Reading | Time Taken | Comments | + + + + + | Blood Pressure | 98/53 | 04/27/2020 5:16 PM | | | | | PDT | | + + + + + | Pulse | 80 | 04/27/2020 5:16 PM | | | | | PDT | | + + + + + | Temperature | 36.8 C (98.2 F) | 04/27/2020 3:01 PM | | | | | PDT | | + + + + + | Respiratory Rate | 16 | 04/27/2020 3:01 PM | | | | | PDT | | + + + + + | Oxygen Saturation | 98% | 04/27/2020 5:16 PM | | | | | PDT | | + + + + + | Inhaled Oxygen | - | - | | | Concentration | | | | + + + + + | Weight | 66.7 kg (147 lb) | 04/27/2020 3:01 PM | | | | | PDT | | + + + + + | Height | 162.6 cm (5' 4") | 04/27/2020 3:01 PM | | | | | PDT | | + + + + + | Body Mass Index | 25.23 | 04/27/2020 3:01 PM | | | | | PDT | | + + + + + Plan of Treatment + + + + + | Health Maintenance | Due Date | Last | Comments | | | | Done | | + + + + + | Hepatitis C | | | | | Screening | 1 | | | + + + + + | Colorectal Cancer | | | | | Screening | 1 | | | | (Colonoscopy) | | | | + + + + + | Breast Cancer | | 08/28/20 | Postponed from 2016 ([address]) | | Screening | 0 | 08 | | + + + + + | Vaccine: | | 04/08/20 | | | Dtap/Tdap/Td (2 - | 1 | 11, | | | Td) | | 11/22/18 | | | | | 96 | | + + + + + | Cervical Cancer | | 11/28/19 | | | Screening (Pap) | 5 | 20, | | | | | 01/06/20 | | | | | 11 | | + + + + + | Vaccine: Influenza | Completed | 09/29/20 | | | | | , | | | | | 09/29/20 | | | | | 19, | | | | | 12/18/19 | | | | | 18 | | + + + + + | Vaccine: Zoster | Completed | 03/27/20 | | | | | 20, | | | | | 09/29/20 | | | | | 19 | | + + + + + Procedures + +--------+ + + + | Procedure Name | Priori | Date/Time | Associated Diagnosis | Comments | | | ty | | | | + +--------+ + + + | CT NECK CHEST | STAT | 04/27/2020 | | Results for this | | ABDOMEN PELVIS W | | 4:11 PM | | procedure are in the | | CONTRAST | | PDT | | results section. | + +--------+ + + + | EXTRA LAVENDER TOP | STAT | 04/27/2020 | | Results for this | | TUBE | | 3:13 PM | | procedure are in the | | | | PDT | | results section. | + +--------+ + + + | EXTRA BLUE TOP TUBE | STAT | 04/27/2020 | | Results for this | | | | 3:13 PM | | procedure are in the | | | | PDT | | results section. | + +--------+ + + + | EXTRA GOLD TOP TUBE | STAT | 04/27/2020 | | Results for this | | | | 3:13 PM | | procedure are in the | | | | PDT | | results section. | + +--------+ + + + | TROPONIN I | STAT | 04/27/2020 | | Results for this | | | | 3:13 PM | | procedure are in the | | | | PDT | | results section. | + +--------+ + + + | CBC WITH | STAT | 04/27/2020 | | Results for this | | DIFFERENTIAL | | 3:13 PM | | procedure are in the | | | | PDT | | results section. | + +--------+ + + + | LIPASE | STAT | 04/27/2020 | | Results for this | | | | 3:12 PM | | procedure are in the | | | | PDT | | results section. | + +--------+ + + + | COMPREHENSIVE | STAT | 04/27/2020 | | Results for this | | METABOLIC PANEL | | 3:12 PM | | procedure are in the | | | | PDT | | results section. | + +--------+ + + + | ECG 12 LEAD | STAT | 04/27/2020 | | Results for this | | | | 3:04 PM | | procedure are in the | | | | PDT | | results section. | + +--------+ + + + | ED INFORMATION | Routin | 04/27/2020 | | | | EXCHANGE | e | 2:54 PM | | | | | | PDT | | | + +--------+ + + + +---+--------+ | | | | | Proced | | | ure | | | Note - | | | Manohar, | | | Lab In | | | | | | Hlseve | | | n - | | | 04/27/ | | | 2019 | | | 2:55 | | | PM PDT | | [...] | | | FICATI | | | ON?06/ | | | 06/202 | | | 0 | | | 14:53? | | | THOMPS | | | ON, | | | IVIS | | | D?MRN: | | | | | | [id number] | | | [id number] | | | riteri | | | a Met | | | 4 | | | visits | | | in | | | 60Secu | | | rity | | | and | | | [...] .Flags | | | | | | [facility] | | | ED | | | Dispar | | | ity | | | Measur | | | e - | | | [facility] | | | has | | | [...] | | | s. | | | [facility] | | | | | | Health [...] | | | By: | | | [facility] | | | | | | Health [...] | | | Center | | | 6 0 | | | Total | | | 6 0 | | | Note: | | [...] | | | int | | | Harlan 6, | | | 2020 | | | Provid | | | ence | | | [facility] [place] | | | [place] | | | Emerge | | | ncy | | | abd | | | pain | | | May | | | 21, | | | 2020 | | | Provid | | | ence | | | [facility] | [facility] [place] | | | [place] | | | Emerge | | | ncy | | | poss | | | allerg | | | ic | | | reacti | | | on, | | | stomac | | | h | | | pain, | | | nausea | | | - | | | post | | | surger | | | y sent | | | from | | | [facility] | | | Allerg | | | ic | | | Reacti | | | on | | | (Major | | | ) | | | Halluc | | | inatio | | | ns | | | Anxiet | | | y | | | Allerg | | | ic | | | Reacti | | | on | | | Anxiet | | | y | | | disord | | | er, | | | unspec | | | ified | | | May | | | 15, | | | 2020 | | | Provid | | | ence | | | [facility] | | | [facility] | | [place] 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 | | | THOMPS | | | ON, | | | IVIS | | | D?MRN: | | | | | | [id number] | | | [id number] | | | riteri | | | a Met | | | 4 | | | visits | | | in | | | 60Secu | | | rity | | | and | | | [...] .Flags | | | | | | [facility] | | | ED | | | Dispar | | | ity | | | Measur | | | e - | | | [facility] | | | has | | | [...] | | | s. | | | [facility] | | | | | | Health [...] | | | By: | | | [facility] | | | | | | Health [...] | | | Center | | | 5 0 | | | Total | | | 5 0 | | | Note: | | [...] | | | May | | | 21, | | | 2020 | | | Provid | | | ence | | | [facility] | [facility] | | [place] | | | [place] | | | Emerge | | | ncy | | | poss | | | allerg | | | ic | | | reacti | | | on, | | | stomac | | | h | | | pain, | | | nausea | | | - | | | post | | | surger | | | y sent | | | from | | | [facility] | | | May | | | 15, | | | 2020 | | | Provid | | | ence | | | [facility] | | [facility] | | [place] 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 | | | 2020 | | | [employer] | | | tive | | | Medica | | | l | | | [employer] | | | logies | | | , Inc[employer] | | | - | | | [email or web address] | | | llecti | | | vemedi | | | [email or web address] | | | m | +---+--------+ + +--------+ +---+ + | TROPONIN I | STAT | 04/05/2020 | | Results for this | | | | 5:21 AM | | procedure are in the | | | | PDT | | results section. | + +--------+ +---+ + | COMPREHENSIVE | STAT | 04/05/2020 | | Results for this | | METABOLIC PANEL | | 5:21 AM | | procedure are in the | | | | PDT | | results section. | + +--------+ +---+ + | CBC WITH | STAT | 04/05/2020 | | Results for this | | DIFFERENTIAL | | 5:21 AM | | procedure are in the | | | | PDT | | results section. | + +--------+ +---+ + | XR CHEST AP PORTABLE | STAT | 04/05/2020 | | Results for this | | | | 5:16 AM | | procedure are in the | | | | PDT | | results section. | + +--------+ +---+ + | ECG 12 LEAD | STAT | 04/05/2020 | | Results for this | | | | 5:10 AM | | procedure are in the | | | | PDT | | results section. | + +--------+ +---+ + | ED INFORMATION | Routin | 04/05/2020 | | | | EXCHANGE | e | 4:43 AM | | | | | | PDT | | | + +--------+ +---+ + +---+--------+ | | | | | Proced | | | ure | | | Note - | | | Manohar, | | | Lab In | | | | | | Hlseve | | | n - | | | 04/05/ | | | 2019 | | | 4:44 | | | AM PDT | | | | | | [...] | | | FICATI | | | ON?/ | | | | | | 0 | | | 04:42? | | | THOMPS | | | ON, | | | IVIS | | | D?MRN: | | | | | | [id number] | | | [id number] | | | riteri | | | [...] 2020 | | | | | | [facility] | | | ED | | | Dispar | | | ity | | | Measur | | | e - | | | [facility] | | | has | | | [...] | | | s. | | | [facility] | | | | | | Health [...] | | | By: | | | [facility] | | | | | | Health [...] | | | Center | | | 4 0 | | | Total | | | 4 0 | | | Note: | | [...] | | | May | | | 15, | | | 2020 | | | Provid | | | ence | | | [facility] | | [facility] | | [place] 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 | | | 2020 | | | [employer] | | | tive | | | Medica | | | l | | | Techno | | | logies | | | , Inc. | | | - | | | [email or web address] | | | llecti | | | vemedi | | | [email or web address] | | | m | +---+--------+ + +--------+ + + + | EGD | | 04/01/2020 | Candidiasis, | | | | | 12:45 PM | esophageal ([facility]) | | | | | PDT | Esophageal dysphagia | | | | | | Esophagogastric | | | | | | junction outflow | | | | | | obstruction | | | | | | Esophagitis, [place] | | | | | | Flavia grade D | | | | | | Seizure ([facility]) | | | | | | Depression with | | | | | | anxiety Esophageal | | | | | | dysmotility | | + +--------+ + + + | *TERMED* [place] UPPER GI | Routin | 04/01/2020 | [...] | | n - | | | 03/31/ | | | 2019 | | | [...] | | | FICATI | | | ON?/ | | | | | | 0 | | | 14:06? | | | THOMPS | | | ON, | | | IVIS | | | D?MRN: | | | | | | [id number] | | | [id number] | | | riteri | | | [...] 2020 | | | | | | [facility] | | | ED | | | Dispar | | | ity | | | Measur | | | e - | | | [facility] | | | has | | | [...] | | | s. 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 | + +--------+ + + + from Last [address] Neck Chest Abdomen Pelvis w Contrast (04/27/2020 4:11 PM PDT) + + | Specimen | + + | | + + + + + | Impressions | Performed At | + + + | 1. NO VISIBLE PHARYNGEAL ABNORMALITY, MASS OR ADENOPATHY. 2. | [facility] | | LEFT THYROID NODULE. CONSIDER NON-EMERGENT SONOGRAPHIC FOLLOW-UP. | | | 3. MILD PROMINENCE OF THE WALL OF THE DISTAL ESOPHAGUS, | | | POTENTIALLY ACCENTUATED BY DECOMPRESSION. ESOPHAGITIS IS A | | | CONSIDERATION. CLINICAL CORRELATION ADVISED. 4. ASCENDING | | | AORTIC ECTASIA AND DILATION OF THE MAIN PULMONARY ARTERY, SUGGESTING | | | PULMONARY ARTERIAL HYPERTENSION. 5. LEFT COLONIC DIVERTICULOSIS | | | AND MODERATE RECTAL STOOL WITHOUT EVIDENCE OF BOWEL OBSTRUCTION OR | | | VISIBLE INFLAMMATION. 6. THORACOLUMBAR SCOLIOSIS WITH L5 | | | COMPRESSION DEFORMITY OF UNCERTAIN CHRONICITY AND MULTILEVEL | | | DEGENERATIVE CHANGES INVOLVING THE CERVICAL AND LUMBAR SPINE, WITH | | | VARIABLE STENOSIS. Images were provided for interpretation on April | | | 2019 at 1615 hours. Results were finalized at 1650 hours. | | | Dictated and Signed by: Ky Krishna MD Electronically signed: | | | 04/27/2020 4:51 PM | | + + + + + + | Narrative | Performed At | + + + | ENHANCED CT NECK, CHEST, ABDOMEN, AND PELVIS, 04/27/2020 4:11 PM | [facility] | | CLINICAL HISTORY: mass in neck with abdominal pain and emesis | | | COMPARISON: Chest radiography April 05, chest CT March 12 | | | TECHNIQUE: Axial images are performed through the neck, chest, | | | abdomen, and pelvis following the uneventful intravenous | | | administration of 90 mL Omnipaque 350 contrast. Multiplanar | | | reformations are also performed. NECK FINDINGS: The pharynx and | | | larynx and subglottic trachea are unremarkable along with the | | | submandibular and parotid glands. The floor of mouth structures are | | | symmetric and unremarkable as well. A 1.6 cm ovoid, slightly | | | hypoattenuating lesion is present in the left thyroid lobe. No | | | pathologic lymph node enlargement or other mass lesion is apparent in | | | the neck. Imaged orbits and intracranial contents are | | | unremarkable. Imaged paranasal sinuses are well aerated along with | | | the middle ear cavities and mastoid air cells. Incomplete fusion of | | | the posterior arch of C1 is noted. There is straightening of the | | | cervical lordosis with multilevel degenerative changes and variable | | | stenosis which is greatest at C5-6 and C6-7. The cervical | | | vasculature is widely patent. CHEST FINDINGS: There is similar | | | dilation of the ascending aorta up to a diameter of 4.2 cm and | | | dilation of the main pulmonary artery up to a diameter of 3.6 cm is | | | noted as well. There is no evidence of aortic dissection or visible | | | filling defect in the pulmonary arterial tree to approximately the | | | segmental level. Mild prominence of the wall of the distal | | | esophagus is suggested although evaluation is limited by | | | decompression. There is a small volume of gas in the proximal to | | | mid esophagus. No pathologic lymph node enlargement is evident. | | | There is no pleural or pericardial effusion or pneumothorax. A | | | tiny calcified granuloma is again present in the posterior right | | | upper lobe. No other pulmonary nodule, consolidation or airway | | | abnormality is evident. Healed appearing rib fractures are again | | | suggested. There is S-shaped thoracolumbar curvature with | | | multilevel vertebral spondylosis. ABDOMEN FINDINGS: Localized | | | hypoattenuation in the anterior left hepatic lobe adjacent to the | | | fissure for the ligamentum teres is consistent with focal fatty | | | infiltration. The liver, gallbladder, spleen, pancreas, adrenal | | | glands and kidneys are otherwise unremarkable. No | | | nephroureterolithiasis or hydroureteronephrosis is evident. There | | | is moderate stool in the rectum without visible wall thickening. | | | Left colonic diverticulosis is present, without evidence of | | | diverticulitis. The stomach, bowel and appendix are otherwise | | | unremarkable. No free air, ascites, pathologic lymph node | | | enlargement or hernia is evident. Abdominal vasculature is patent | | | and unremarkable. Moderate compression deformity of the L5 | | | vertebral body is uncertain in chronicity. There is multilevel | | | lumbar degenerative disc disease and spondylosis with variable | | | stenosis. PELVIS FINDINGS: The bladder, uterus and adnexa are | | | unremarkable. No free air, free fluid, pathologic lymph node | | | enlargement, or hernia is evident. Early degenerative changes of | | | the hips are present. Bones and soft tissues are otherwise | | | unremarkable. | | + + + + + | Procedure Note | + + | Manohar, Rad Results In - 04/27/2020 4:[address] NECK, CHEST, ABDOMEN, AND | | PELVIS, 04/27/2020 4:11 PM CLINICAL HISTORY: mass in neck with abdominal pain and | | emesisCOMPARISON: Chest radiography April 05, chest CT March 12TECHNIQUE: Axial images | | are performed through the neck, chest, abdomen, andpelvis following the uneventful | | intravenous administration of 90 mL Ulxkistjj604 contrast. Multiplanar reformations | | are also performed.NECK FINDINGS: The pharynx and larynx and subglottic trachea are | | unremarkablealong with the submandibular and parotid glands. The floor of mouth | | structuresare symmetric and unremarkable as well. A 1.6 cm ovoid, | | slightlyhypoattenuating lesion is present in the left thyroid lobe. No pathologic | | lymphnode enlargement or other mass lesion is apparent in the neck. Imaged orbitsand | | intracranial contents are unremarkable. Imaged paranasal sinuses are wellaerated along | | with the middle ear cavities and mastoid air cells. Incompletefusion of the posterior | | arch of C1 is noted. There is straightening of thecervical lordosis with multilevel | | degenerative changes and variable stenosiswhich is greatest at C5-6 and C6-7. The | | cervical vasculature is widely patent.CHEST FINDINGS: There is similar dilation of the | | ascending aorta up to adiameter of 4.2 cm and dilation of the main pulmonary artery up | | to a diameter of3.6 cm is noted as well. There is no evidence of aortic dissection or | | visiblefilling defect in the pulmonary arterial tree to approximately the | | segmentallevel. Mild prominence of the wall of the distal esophagus is | | suggestedalthough evaluation is limited by decompression. There is a small volume of | | gasin the proximal to mid esophagus. No pathologic lymph node enlargement isevident. | | There is no pleural or pericardial effusion or pneumothorax. A tinycalcified granuloma | | is again present in the posterior right upper lobe. Noother pulmonary nodule, | | consolidation or airway abnormality is evident. Healedappearing rib fractures are again | | suggested. There is S-shaped thoracolumbarcurvature with multilevel vertebral | | spondylosis.ABDOMEN FINDINGS: Localized hypoattenuation in the anterior left hepatic | | lobeadjacent to the fissure for the ligamentum teres is consistent with focal | | fattyinfiltration. The liver, gallbladder, spleen, pancreas, adrenal glands andkidneys | | are otherwise unremarkable. No nephroureterolithiasis orhydroureteronephrosis is | | evident. There is moderate stool in the rectum withoutvisible wall thickening. Left | | colonic diverticulosis is present, withoutevidence of diverticulitis. The stomach, | | bowel and appendix are otherwiseunremarkable. No free air, ascites, pathologic lymph | | node enlargement or herniais evident. Abdominal vasculature is patent and unremarkable. | | Moderatecompression deformity of the L5 vertebral body is uncertain in chronicity. | | There is multilevel lumbar degenerative disc disease and spondylosis withvariable | | stenosis.PELVIS FINDINGS: The bladder, uterus and adnexa are unremarkable. No free | | air,free fluid, pathologic lymph node enlargement, or hernia is evident. | | Earlydegenerative changes of the hips are present. Bones and soft tissues areotherwise | | unremarkable.IMPRESSION: 1. NO VISIBLE PHARYNGEAL ABNORMALITY, MASS OR ADENOPATHY.2. | | LEFT THYROID NODULE. CONSIDER NON-EMERGENT SONOGRAPHIC FOLLOW-UP.3. MILD PROMINENCE OF | | THE WALL OF THE DISTAL ESOPHAGUS, POTENTIALLY ACCENTUATEDBY DECOMPRESSION. ESOPHAGITIS | | IS A CONSIDERATION. CLINICAL CORRELATIONADVISED.4. ASCENDING AORTIC ECTASIA AND | | DILATION OF THE MAIN PULMONARY ARTERY,SUGGESTING PULMONARY ARTERIAL HYPERTENSION.5. | | LEFT COLONIC DIVERTICULOSIS AND MODERATE RECTAL STOOL WITHOUT EVIDENCE OFBOWEL | | OBSTRUCTION OR VISIBLE INFLAMMATION.6. THORACOLUMBAR SCOLIOSIS WITH L5 COMPRESSION | | DEFORMITY OF UNCERTAINCHRONICITY AND MULTILEVEL DEGENERATIVE CHANGES INVOLVING THE | | CERVICAL AND LUMBARSPINE, WITH VARIABLE STENOSIS.Images were provided for interpretation | | on April 27, 2020 at 1615 hours. Resultswere finalized at 1650 hours.Dictated and Signed | | by: Ky Krishna MD Electronically signed: 04/27/2020 4:51 PM | |degenerative changes of the hips are present. Bones and soft tissues are | |otherwise unremarkable. | | | |IMPRESSION: | |1. NO VISIBLE PHARYNGEAL ABNORMALITY, MASS OR ADENOPATHY. | | | |2. LEFT THYROID NODULE. CONSIDER NON-EMERGENT SONOGRAPHIC FOLLOW-UP. | | | |3. MILD PROMINENCE OF THE WALL OF THE DISTAL ESOPHAGUS, POTENTIALLY ACCENTUATED | |BY DECOMPRESSION. ESOPHAGITIS IS A CONSIDERATION. CLINICAL CORRELATION | |ADVISED. | | | |4. ASCENDING AORTIC ECTASIA AND DILATION OF THE MAIN PULMONARY ARTERY, | |SUGGESTING PULMONARY ARTERIAL HYPERTENSION. | | | |5. LEFT COLONIC DIVERTICULOSIS AND MODERATE RECTAL STOOL WITHOUT EVIDENCE OF | |BOWEL OBSTRUCTION OR VISIBLE INFLAMMATION. | | | |6. THORACOLUMBAR SCOLIOSIS WITH L5 COMPRESSION DEFORMITY OF UNCERTAIN | |CHRONICITY AND MULTILEVEL DEGENERATIVE CHANGES INVOLVING THE CERVICAL AND LUMBAR | |SPINE, WITH VARIABLE STENOSIS. | | | |Images were provided for interpretation on April 27, 2020 at 1615 hours. Results | |were finalized at 1650 hours. | | | |Dictated and Signed by: Ky Krishna MD | | Electronically signed: 04/27/2020 4:51 PM | + + + +---------+ + + | Performing | Address | City/State/Zipcode | Phone Number | | Organization | | | | + +---------+ + + | [facility] | | | | + +---------+ + + Extra Lavender Top Tube (04/27/2020 3:13 PM PDT)Only the most recent of 3 results within t he time period is included. + +-------+ + + + | Component [...] + + | [facility] | [address] | [place] | [phone] | | [facility] | | [address] | | | - LABORATORY | | | | + + + + + Extra Gold Top Tube (04/27/2020 3:13 PM PDT)Only the most recent of 2 results within the period is included. + +-------+ + + + | Component | Value | Ref Range | Performed | Pathologist | | | | | At | Signature | + +-------+ + + + | Extra Gold | Done | | [facility] | | | Top Tube | | | [facility] | | [...] + | [facility] | [address] | [place] | [phone] | | [facility] | | [address] | | | - LABORATORY | | | | + + + + + Extra Blue Top Tube (04/27/2020 3:13 PM PDT)Only the most recent of 2 results within the period is included. + +-------+ + + + | Component | Value | Ref Range | Performed | Pathologist | | | | | At | Signature | + +-------+ + + + | Extra Blue | Done | | [facility] | | | Top Tube | | | [facility] | | [...] + | [facility] | [address] | [place], [place] | [phone] | | [facility] | | [address] | | | - LABORATORY | | | | + + + + + Troponin I (04/27/2020 3:13 PM PDT)Only the most recent of 3 results within the time perio d is included. + + + + + + | Component | Value | Ref Range | Performed | Pathologist | | | | | At | Signature | + + + + + + | Troponin I | <0.01Comment: | <0.06 ng/mL | [facility] | | | | Comment:Reference | | [...] | | | | | | [employer] | | | | | [...] ST. | [address] | [place], [place] | [phone] | | [facility] | | [address] | | | - LABORATORY | | | | + + + + + CBC with Differential (04/27/2020 3:13 PM PDT)Only the most recent of 4 results within the time period is included. + + + + + + | Component | Value | Ref Range | Performed | Pathologist | | | | | At | Signature | + + + + + + | WBC | 7.8 | 4.0 - 11.0 K/uL | [facility] | | | | | | [facility] | | | | | | MEDICAL | | | | | | CENTER - | | | | | | LABORATORY | | + + + + + + | RBC | 4.60 | 3.70 - 5.20 | [facility] | | | | | M/uL | [facility] | | [facility] | | | MEDICAL | | | | | | CENTER - | | | | | | LABORATORY | | + + + + + + | Hemoglobin | 13.1 | 11.5 - 16.0 | [facility] | | | | | g/dL | [facility] | | | | | | MEDICAL | | | | | | CENTER - | | | | | | LABORATORY | | + + + + + + | Hematocrit | 37.1 | 34.0 - 47.0 % | [facility] | | | | | | [facility] | | | | | | MEDICAL | | | | | | CENTER - | | | | | | LABORATORY | | + + + + + + | MCV | 80.7 (L) | 83.0 - 101.0 fL | [facility] | | | | | | [facility] | | | | | | MEDICAL | | | | | | CENTER - | | | | | | LABORATORY | | + + + + + + | MCH | 28.5 | 28.0 - 35.0 pg | [facility] | | | | | | [facility] | | | | | | MEDICAL | | | | | | CENTER - | | | | | | LABORATORY | | + + + + + + | MCHC | 35.3 | 32.0 - 36.0 | [facility] | [...] + + + + | RDW-SD | 35.6 | 35.1 - 46.3 fL | [facility] [...] + + + + | % | 77.0 | 45.0 - 82.0 % | [facility] | | | Neutrophils | | | [facility] | | | | | | MEDICAL | | | | | | CENTER - | | | | | | LABORATORY | | + + + + + + | % | 17.1 (L) | 20.0 - 45.0 % | [facility] | | | Lymphocytes | | | [facility] | | | | | | MEDICAL | | | | | | CENTER - | | | | | | LABORATORY | | + + + + + + | % Monocytes | 5.0 | 4.0 - 12.0 % | [facility] | | | | | | [facility] | | | | | | MEDICAL | | | | | | CENTER - | | | | | | LABORATORY | | + + + + + + | % | 0.3 | 0.0 - 5.0 % | [facility] | | | Eosinophils | | | [facility] | | | | | | MEDICAL | | | | | | CENTER - | | | | | | LABORATORY | | + + + + + + | % Basophils | 0.5 | 0.0 - 1.0 % | [facility] [...] | | | Granulocyte | | | [facility] | | | s | | | MEDICAL | | | | | | CENTER - | | | | | | LABORATORY | | + + + + + + | Absolute | 6.04 | 1.80 - 8.50 | [facility] | | | Neutrophils | | K/uL | [facility] | | | | | | MEDICAL | | | | | | CENTER - | | | | | | LABORATORY | | + + + + + + | Absolute | 1.34 | 0.60 - 3.20 | [facility] | | | Lymphocytes | | K/uL | [facility] | | | | | | MEDICAL | | | | | | CENTER - | | | | | | LABORATORY | | + + + + + + | Absolute | 0.39 | 0.00 - 1.00 | [facility] | | | Monocytes | | K/uL | [facility] | | | | | | MEDICAL | | | | | | CENTER - | | | | | | LABORATORY | | + + + + + + | Absolute | 0.02 | 0.00 - 0.40 | [facility] | | | Eosinophils | | K/uL | [facility] | | | | | | MEDICAL | | | | | | CENTER - | | | | | | LABORATORY | | + + + + + + | Absolute | 0.04 | 0.00 - 0.10 | [facility] | [...] [address] | [place] | [phone] | | [facility] | | [address] | | | - LABORATORY | | | | + + + + + Lipase (04/27/2020 3:12 PM PDT) + + + + + + | Component | Value | Ref Range | Performed | Pathologist | | | | | At | Signature | + + + + + + | Lipase | 33Comment: New method in | 12 - 53 U/L | [facility] | | | | use as of January 18 | | [facility] | | | | 2018. Check reference [...] ST. | [address] | [place] | [phone] | | [facility] | | [address] | | | - LABORATORY | | | | + + + + + Comprehensive Metabolic Panel (04/27/2020 3:12 PM PDT)Only the most recent of 4 results wi thin the time period is included. + + + + + + | Component | Value | Ref Range | Performed | Pathologist | | | | | At | Signature | + + + + + + | Na | 132 (L) | 136 - 145 | [facility] | | | | | mmol/L | [facility] | | | | | | MEDICAL | | | | | | CENTER - | | | | | | LABORATORY | | + + + + + + | K | 3.1 (L) | 3.4 - 5.1 | [facility] | | | | | mmol/L | [facility] | | | | | | MEDICAL | | | | | | CENTER - | | | | | | LABORATORY | | + + + + + + | Cl | 94 (L) | 98 - 107 mmol/L | [...] + + + + | Glucose | 113 (H) | 60 - 106 mg/dL | [facility] | | | | | | [facility] | | | | | | [facility]ICAL | | | | | | CENTER - | | | | | | LABORATORY | | + + + + + + | BUN | 6 (L) | 9 - 23 mg/dL | [facility] | | | | | | [facility] | | | | | | MEDICAL | | | | | | CENTER - | | | | | | LABORATORY | | + + + + + + | Creatinine | 0.75 | 0.55 - 1.02 | [facility] | | | | | mg/dL | [facility] | | | | | | MEDICAL | | | | | | CENTER - | | | | | | LABORATORY | | + + + + + + | eGFR if not | >60Comment: GLOMERULAR | >=60 | [facility] | | | | FILTRATION | mL/min/1.73m2 | [facility] | | | [facility]ZE[facility] | RATE,ESTIMATED | | MEDICAL | | | | mL/min/1.65a3Pbdr than | | CENTER - | | [...] + + + + | Bilirubin | 1.2 | 0.3 - 1.2 mg/dL | [facility] [...] + + + + | AST | 32 | 0 - 34 U/L | [facility] | | | | | | [facility] | | | | | | MEDICAL | | | | | | CENTER - | | | | | | LABORATORY | | + + + + + + | ALT | 30 | 10 - 49 U/L | [facility] | | | | | | [facility] | | | | | | MEDICAL | | | | | | CENTER - | | | | | | LABORATORY | | + + + + + + | Alkaline | 88 | 46 - 116 U/L | [facility] | | | Phosphatase | | | [facility] | | | | | | MEDICAL | | | | | | CENTER - | | | | | | LABORATORY | | + + + + + + | Globulin | 2.7 | 2.1 - 3.8 g/dL | [facility] [...] + + + + | BUN/Creatin | 8.0 | | [facility] | | | ine [...] | + + + + + | [facility] | [address] | [place] | [phone] | | [facility] | | [address] | | | - LABORATORY | | | | + + + + + ECG 12 lead (04/27/2020 3:04 PM PDT)Only the most recent of 3 results within the time nessa od is included. + + + + + + | Component | Value | Ref Range | Performed | Pathologist | | | | | At | Signature | + + + + + + | VENTRICULAR | 74 | BPM | [facility] | | | RATE EKG | | | | | + + + + + + | ATRIAL RATE | 74 | BPM | [facility] | | + + + + + + | P-R | 154 | ms | [facility] | | | INTERVAL | | | | | + + + + + + | QRS | 78 | ms | [facility] | | | DURATION | | | | | + + + + + + | Q-T | 386 | ms | [facility] | | | INTERVAL | | | | | + + + + + + | Q-T | 428 | ms | [facility] | | | INTERVAL | | | | | | (CORRECTED) | | | | | + + + + + + | P WAVE AXIS | 76 | degrees | [facility] | | + + + + + + | QRS AXIS | 13 | degrees | [facility] | | + + + + + + | T AXIS | 22 | degrees | [facility] | | + + + + + + | INTERPRETAT | Normal sinus rhythmRight | | [facility] | | | ION TEXT | atrial | | | | | | enlargementNonspecific T | | | | | | wave abnormality V2When | | | | | | compared with ECG of | | | | | | 05-APR-2020 05:10,RSR' | | | | | | lead V1 is no longer | | | | | | presentT wave inversion | | | | | | in V2 is now | | | | | | presentConfirmed by | | | | | | VIRGIE MAXWELL MD ([id number]) | | | | | | on 04/28/2020 6:48:04 AM | | | | + + [...] | | | + +---------+ + + XR Chest AP Portable (04/05/2020 5:16 AM PDT)Only the most recent of 3 results within the time period is included. + + | Specimen | + + | | + + + + + | Impressions | Performed At | + + + | 1. POTENTIAL HIATUS HERNIA. 2. 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 3. SCOLIOSIS. Dictated and Signed by: Ky | | | MD Tomi Electronically signed: 04/05/2020 7:28 AM | | + + + + + + | Narrative | Performed At | + + + | SINGLE AP CHEST 04/05/2020 5:16 AM CLINICAL HISTORY: DYSPHAGIA | [facility] | | COMPARISON: Radiography March 31 and more remote imaging | | | FINDINGS: Aortic tortuosity is again apparent. The cardiac | | | silhouette again appears borderline enlarged. A small hiatus hernia | | | is questioned near midline above the hemidiaphragms. Mediastinum | | | and pulmonary vasculature are otherwise unremarkable. The lungs are | | | clear without visible pneumothorax or pleural effusion. There is | | | S-shaped thoracic curvature with degenerative changes of the imaged | | | lumbar spine. | | + + + + + | Procedure Note | + + | Manohar, Rad Results In - 04/05/2020 7:31 AM PDT SINGLE AP CHEST 04/05/2020 5:16 AM | | | | CLINICAL HISTORY: DYSPHAGIA | | | | COMPARISON: Radiography March 31 and more remote imaging | | | | FINDINGS: Aortic tortuosity is again apparent. The cardiac silhouette again | | appears borderline enlarged. A small hiatus hernia is questioned near midline | | above the hemidiaphragms. Mediastinum and pulmonary vasculature are otherwise | | unremarkable. The lungs are clear without visible pneumothorax or pleural | | effusion. There is S-shaped thoracic curvature with degenerative changes of the | | imaged lumbar spine. | | | | IMPRESSION: | | | | 1. POTENTIAL HIATUS HERNIA. | | | | 2. SIMILAR BORDERLINE CARDIOMEGALY. | | | | 3. SCOLIOSIS. | | | | Dictated and Signed by: Ky Krishna MD | | Electronically signed: 04/05/2020 7:28 AM | + + + +---------+ + + | Performing | Address | City/State/Zipcode | Phone Number | | Organization | | | | + +---------+ + + | [facility] | | | | + +---------+ + + EGD (04/01/2020 12:39 PM PDT) + + | Specimen | + + | | + + + +--------- -----+ | Narrative | Performe d At | + +--------- -----+ | [facility] | [facility] | | [facility] CenterVtstroenterologyPatient Name: Ivis Quijano | BIANCA N | | ReubennProcedure Date: 04/01/2020 12:39 PMMRN: [id number] Number: | | | [id number] of : 1960Note Status: FinalizedAttending | | | MD: SOHAIL CRAIGrocedure Type: Upper GI | | | endoscopyIndications: DysphagiaReferring MD: | | | Rianna Farmer MD (Referring MD)Medicines: | | | [...] Mares's stage C1-M3 | | | per [place] criteria present in the lower third of [...] Mares's stage | | | C1-M3 per [place] criteria. Not due to have surveillance | [...] pantoprazole 40mg once daily | | | custodial - avoid nsaid medications (ibuprofen) as this is the | | | likely cause of the gastric erosion.NISHANT SNOW | | | 04/01/2020 1:27:08 PMThis report has been signed electronically.Note | | | Initiated On: 04/01/2020 12:39 PMNumber of Addenda: 0 [place] | | | [facility] | | | criteria are met. [...] | - Continue pantoprazole 40mg once daily custodial | | | - avoid nsaid medications (ibuprofen) as this is the likely cause of the | | | gastric erosion. | | |NISHANT SNOW MD | | |04/01/2020 1:27:08 PM | | |This report has been signed electronically. | | |Note Initiated On: 04/01/2020 12:39 PM | | |Number of Addenda: 0 | | | [facility] | | + +--------- -----+ + +---------+ + + | Performing | Address | City/State/[facility] | Phone Number | | Organization | [...] + Coronavirus (COVID-19) NAAT (03/31/2020 3:10 PM PDT)Only the most recent of 2 results with in the time period is included. + + + + + + | [...] + + + | See scanned | [facility] | | report | | + + + + +---------+ + + | Performing | Address | City/State/Zipcode | Phone Number | | Organization | | | | + +---------+ + + | [facility] | | | | + +---------+ + + D-Dimer (03/31/2020 2:37 PM PDT) + + + + + + | Component | Value | Ref Range | Performed | Pathologist | | | | | At | Signature | + + + + + + | D-Dimer | 0.39Comment: This | <=0.50 ug/mL | [facility] | | | Quantitativ | quantitative D-Dimer | FEU | [facility] | | | e | assay has [...] ST. | [address] | [place], [place] | [phone] | | [facility] | | [address] | | | - LABORATORY | | | | + + + + + CT Chest wo Contrast (03/12/2020 1:09 AM [...] cm. A preliminary report was sent by [employer] | | | with no significant discrepancy [...] | A preliminary report was sent by [employer] with no significant discrepancy | | on [...] | | + +---------+ + + Extra Green Top Tube (03/11/2020 11:49 PM PDT) + +-------+ + + + | Component | Value | Ref Range | Performed | Pathologist | | | | | At | Signature | + +-------+ + + + | Extra Green | Done | | [facility] | | | Top Tube | | | [facility] | | [...] [address] | [place] | [phone] | | [facility] | | [address] | | | - LABORATORY | | | | + + + + + Culture, Yeast, Smear (02/20/2020 8:26 AM PDT) + + + + + + | Component | Value | Ref Range | Performed | Pathologist | | | | | At | Signature | + + + + + + | Culture | 3+ Esme | | [facility] | | | | albicansComment: No | | [facility] | | | | sensitivities performed. | | MEDICAL | | | | | | CENTER - | | | | | | LABORATORY | | + + + + + + | PALMER Prep | No white blood cells | | [facility] | | | | (PMNs) seen | | [facility] | | | [...] ST. | [address] | [place] | [phone] | | [facility] | | [address] | | | - LABORATORY | | | | + + + + + EGD (02/20/2020 7:59 AM PDT) + + | Specimen | + + | | + + + + + | Narrative | Performed At | + + + | [facility] | [facility] | | [facility] CenterGastroenterologyPatient Name: Ivis Quijano | MATEO | | ReubennProcedadarsh Date: 02/20/2020 7:59 AMMRN: [id number] Number: | | | [id number] of : 1960Note Status: FinalizedAttending | | | MD: NISHANT SNOW MDProcedure Type: Upper GI | | | endoscopyIndications: DysphagiaReferring MD: | | | Rianna Farmer MD (Referring MD), Ava | | | KELLY Chi (Referring MD)Medicines: | | | Monitored Anesthesia CareComplications: | [...] white | | | light and the [employer] Intelligent Chromo Endoscopy (FICE) system. 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 These changes involved the | | [...] mucosal | | | changes classified as Mares's stage C2-M3 per [place] | | | criteria. Recently biopsied. - [...] AMNumber | | | of Addenda: 0 [facility] | | | criteria are met. [...] |Number of Addenda: 0 | | | [facility] | | + + + + +---------+ + + | Performing | Address | City/State/Zipcode | Phone Number | | Organization | | | | + +---------+ + + | [employer] | | | | + +---------+ + + from Last 3 Months Insurance + +--------+ +--------+ +---------+--------+ | Payer | Benefi | Subscriber | Effect | Phone | Address | Type | | | t Plan | ID | saeid | | | | | | / | | Dates | | | | | | Group | | | | | | + +--------+ +--------+ +---------+--------+ | [employer] | [employer] | [id number] | | [phone] | | Medica | | MEDICAID HMO | HEALTH | | 017-Pr | 1 | | id | | | MDCD | | esent | | | | | | [place] | | | | | | + +--------+ +--------+ +---------+--------+ + +--------+ +--------+ + + | Guarantor Name | Accoun | Relation to | Date | Phone | Billing Address | | | t Type | Patient | of | | | | | | | | | | + +--------+ +--------+ + + | Ivis Quijano | Person | Self [birth year] | [address] | | | al/Fam | | 1960 | [phone] | [place], [place] | | | [place] | | | 1 (Home) | [address] | + +--------+ +--------+ + + Advance Directives + + + + + | Type | Date Recorded | Patient | Explanation | | | | Electrical Sign Servicer | | + + + + + | Power of | | | | | Field Advisor | | | | + + + + + | Advance | 03/24/2019 4:12 | | | | Directive | AM | | | + + + + + + + + + + | Code Status | Date | Date | Comments | | | Activated | Inactivated | | + + + + + | Full Code | 09/05/2019 | 09/06/2019 | | | | 7:43 PM | 7:22 PM | | + + + + + + + + +---+ | | | | | + + + +---+ | Full Code | 07/21/2017 | 07/25/2017 | | | | 5:28 PM | 4:53 PM | | + + + +---+ + + + +---+ | | | | | + + + +---+ | Full Code | 07/21/2017 | 07/21/2017 | | | by default | 10:54 AM | 5:28 PM | | | - TBD | | | | + + + +---+
--- OUTSIDE RECORDS SUMMARY | ~2020-05-16 | XMS | Encounter Summary ---
Demographics + + + | Address | [address] | | | [place] [address] | + + + | Home Phone [...] + + + | Author | [facility] | | | and [place] | + + + | Organization | [facility] | | [...] Team Providers + +------+ + | Care Candy Cutter Machine Name | Role | Phone | + +------+ + | No, Physician | PCP | Unavailable | + +------+ + Reason for Referral Evaluate & Treat (Routine) +--------+ + + + + + | Status | Reason | Specialty | Diagnoses / | Referred By | Referred To | | | | | Procedures | Contact | Contact | +--------+ + + + + + | Closed | Specialty | Dermatology | Diagnoses | [place], | | | | Services | | Neoplasm of | Isamar D, | | | | Required | | uncertain | MD Need | | | | | | behavior of | updated | | | | | | cheek | address | | | | | | Avulsion of | | | | | | | skin of | | | | | | | face, | | | | | | | initial | | | | | | | encounter | | | +--------+ + + + + + Reason for Visit + + + | Reason | Comments | + + + | Facial Pain | Room 2 Was picking around a wart on rt face, picked partially | | | off. Bled a lot. | + + + Encounter Details +--------+---------+ + + + | Date | Type | Department | Care Team | Description | +--------+---------+ + + + | 03/06/ | Office | [facility] | Isamar Marley, | Neoplasm of | | 2017 | Visit | CARE [address] | Need updated | uncertain behavior | | | | [place] | address | of cheek (Primary | | | | [address] | | Dx); Avulsion of | | | | [phone] | | skin of face, | | | | | | initial encounter | +--------+---------+ + + + Social History [...] + + + | Blood Pressure | 158/72 | 03/06/2017 10:20 AM | | | | | PDT | | + + + + + | Pulse | 91 | 03/06/2017 10:20 AM | | | | | PDT | | + + + + + | Temperature | 35.9 C (96.7 F) | 03/06/2017 10:20 AM | | | | | PDT | | + + + + + | Respiratory Rate | 16 | 03/06/2017 10:20 AM | | | | | PDT | | + + + + + | Oxygen Saturation | 98% | 03/06/2017 10:20 AM | | | | | PDT | | + + + + + | Inhaled Oxygen | - | - | | | Concentration | | | | + + + + + | Weight | 92.1 kg (203 lb) | 03/06/2017 10:20 AM | | | | | PDT | | + + + + + | Height | 162.6 cm (5' 4") | 03/06/2017 10:20 AM | | | | | PDT | | + + + + + | Body Mass Index | 34.84 | 03/06/2017 10:20 AM | | | | | PDT | | + + + + + documented in this encounter Progress Notes Isamar Marley MD - 03/06/2017 10:45 AM PDTFormatting of this note might be different fro m the original. Subjective: Chief Complaint: Facial Pain History of Present Illness: Cherrie is a 56 y.o. female who comes in complaining of bleeding wart on face. She has had a growth on her face for years and she picked at it last night and can't get it stopped bleed ing. She had something similar on R upper arm and derm said wart and scraped it off. No o ther complaints. Patient's medications, allergies, past medical, surgical, social and family histories were reviewed and updated as appropriate. ROS: see HPI Objective: BP 158/72 mmHg | Pulse 91 | Temp(Src) 35.9 C (96.7 F) (Temporal) | Resp 16 | Ht 1.626 m (5' 4") | Wt 92.08 kg (203 lb) | BMI 34.83 kg/m2 | SpO2 98% General Appearance: Alert, cooperative, no distress, appears stated age 6 mm firm flesh colored nodule R cheek partially avulsed along lower edge x 2 mm Fresh blood there but not running Top is abraded so I can't tell what the texture is. 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 Avulsion of skin of face, initial encounter Dermatology, External - AMB Referral to derm for removal of lesion. I can't tell what it is in this state I stopped the bleeding with some surgicel since we could not locate the drysol. Covered w bandage. Do not remove bandage for 2 days unless it gets wet. Do not pull off s urgicel. It will dissolve or fall off on its own. If it starts bleeding again, ly down and apply pressure with kleenex for 5 min. If still bleeding, come back to urgent care. This note was dictated using [employer] voice recognition software. Occasional wrong- word or s ound-alike substitutions may have occurred due to the inherent limitations of voice recognit ion software. Please read the chart carefully and recognize, using context, where these subs titutions have occurred. documented in this en counter Plan of Treatment + + +--------+ + + | Name | Type | Priori | Associated Diagnoses | Order Schedule | | | | ty | | | + + +--------+ + + | Dermatology, | Outpatient | Routin | Neoplasm of | Ordered: 03/06/2017 | | External - AMB | Referral | e | uncertain behavior | | | Referral | | | of cheek Avulsion | | | | | | of skin of face, | | | | | | initial encounter | | + + +--------+ + + documented as of this encounter Visit Diagnoses + + | Diagnosis | + + | Neoplasm of uncertain behavior of cheek - Primary | + + | Avulsion of skin of face, initial encounter | + + documented in this encounter
--- OUTSIDE RECORDS SUMMARY | ~2020-05-16 | XMS | Encounter Summary ---
Demographics + + + | Address | [address] | | | [place] [address] | + + + | Home Phone | | + + + | Preferred Language | Unknown | + + + | Marital Status | Single | + + + | Synagogue Affiliation | 1013 | + + + | Race | Unknown | + + + | Ethnic Group | Unknown | + + + Author + + + | Author | [facility] | | | and [place] | + + + | Organization | [facility] | | [...] Team Providers + +------+ + | Care Guide Excursion Name | Role | Phone | + +------+ + | James Farmer MD | PCP | | + +------+ + Reason for Visit + +--------+ + | Reason | Onset | Comments | | | Date | | + +--------+ + | Patient Concerns | 05/10/ | | | | 2019 | | + +--------+ + Encounter Details +--------+ + + + + | Date | Type | Department | Care Team | Description | +--------+ + + + + | 05/10/ | Telephone | [facility] | James Farmer, | Patient Concerns | | 2019 | | MEDICINE [address] | MD Juanita FUNK | | | | | [place], | [place] | | | | | [place] [address] | [address] | | | | | [phone] | | | +--------+ + + + [...] Telephone Encounter - Ashlie Blevins LPN - 05/10/2020 10:03 AM PDTPatients sister Ioana oseguera and states they are not sure what has happened to Cherrie but that she has had a pretty severe cognitive decline over the past couple of weeks and this week is the worst. She is ve ry confused and doesn't even know how to handle her bank account. States she hadnt wanted to stay alone due to issues with her swallowing that are being studied and she has stay in [facility] with them over the last couple of weeks and they have observed her current decline. S he states they think maybe a stroke or its related to her issues with not being able to eat and get in enough vitamins etc. States they had a good visit with the GI specialist and are awaiting a nutrition panel and futher discussion. I advised with her decline it would be bes t for her to seek ER attention either in [place] or here in [place]. I also advised to set up a follow up visit with Dr Farmer and stay fairly consistent until we find out ne anderson what her needs are. Ioana agreed. Also suggested to have someone with her at her visits to help Cherrie navigate appointments and understand things better. Ioana agreed with this als o. She will get her into an ER at this time and then follow up documented in this encounter Plan of Treatment Not on filedocumented as of this encounter Visit Diagnoses Not on filedocumented in this encounter"
--- OUTSIDE RECORDS SUMMARY | ~2020-05-16 | XMS | Encounter Summary ---
Demographics + + + | Address | [address] | | | [place] [address] | + + + | Home Phone | | + + + | Preferred Language | Unknown | + + + | Marital Status | Single | + + + | Jehovah'S Witness Affiliation | 1013 | + + + [...] Team Providers + +------+ + | Care Clinical Applications Specialist Name | Role | Phone | + +------+ + | James Farmer MD | PCP | | + +------+ + Reason for Referral Evaluate & Treat (Routine) + +--------+ + + + + | Status | Reason | Specialty | Diagnoses / | Referred By | Referred To | | | | | Procedures | Contact | Contact | + +--------+ + + + + | Authorized | | Sleep | Diagnoses | [facility] | [facility] | | | | Medicine | Other | James Dennis MD | [facility] | | | | | insomnia | [address] | SLEEP | | | | | | [address] [facility] | DISORDERS LAB | | | | | | [place], [place] | [address] | | | | | | [address] [address] | | | | | | Phone: | [place] | | | | | | [phone] | [address] | | | | | | Fax: | Phone: | | | | | | [phone] | [phone] | | | | | | | Fax: | | | | | | | [phone] | + +--------+ + + + + + + | Scheduling Instructions | + + | Please send to [facility] | + + Encounter Details +--------+ + + + + | Date | Type | Department | Care Team | Description | +--------+ + + + + | 05/02/ | Orders Only | [facility] | James Farmer, | Other insomnia | | 2019 | | MEDICINE [address] | [address] | (Primary Dx) | | | | [place], | [place] | | | | | [place] [address] | [id number] | | | | | [phone] | | | +--------+ + + + [...] | + + +--------+ + + | Sleep Medicine, | Outpatient | Routin | Other insomnia | Ordered: 05/02/2020 | | External - AMB | Referral | e | | | | Referral | | | | | + + +--------+ + + documented as of this encounter Visit Diagnoses + + | Diagnosis | + + | Other insomnia - Primary | + + documented in this encounter"
--- OUTSIDE RECORDS SUMMARY | ~2020-05-16 | XMS | Encounter Summary ---
Demographics + + + | Address | [address] | | | [place] [address] | + + + | Home Phone | | + + + | Preferred Language | Unknown | + + + | Marital Status | Single | + + + | Moravian Affiliation | 1013 | + + + | Race | Unknown | + + + | Ethnic Group | Unknown | + + + Author + + + | Author | [facility] | | | and [place] | + + + | Organization | [facility] | [...] Team Providers + +------+ + | Care Fairing Worker Name | Role | Phone | + +------+ + | James Farmer MD | PCP | | + +------+ + Reason for Visit + + + | Reason | Comments | + + + | Therapy Daily | | | Treatment | | + + + Evaluate & Treat (Routine) +--------+ + + + + + | Status | Reason | Specialty | Diagnoses / | Referred By | Referred To | | | | | Procedures | Contact | Contact | +--------+ + + + + + | Closed | Specialty | Physical | Diagnoses | [place], | [facility] | | | Services | Therapy / | Reduced | James Dennis MD | Fan | | | Required | Rehabilitatio | mobility | [address] | Therapy [address] | | | | n | Unsteady | [address] | | | | | gait | [place] | [place], | | | | | Procedures | [address] | [place] [address] | | | | | PT | Phone: | Phone: | | | | | | [phone] | [phone] | | | | | | Fax: | Fax: | | | | | | [phone] | [phone] | +--------+ + + + + + Encounter Details +--------+---------+ + + + | Date | Type | Department | Care Team | Description | +--------+---------+ + + + | 10/24/ | Office | [facility] | Angie Sauer, | Reduced mobility; | | 2018 | Visit | [facility] | [facility]ER [address] | Weakness of both | | | | [address] | [place] | lower extremities; | | | | [place] | [address] | Impaired functional | | | | [address] | [phone] | mobility, balance, | | | | [phone] | | gait, and endurance | +--------+---------+ + + + Social History [...] documented as of this encounter Progress Notes Angie Sauer, MOLDER FEEDER - 10/24/2019 11:15 AM PST [facility] [address] [place] [address] Physical Therapy Daily Treatment Note Date: 10/24/2019 Patient Information Patient Name: Cherrie Quijano Date of : 1960 Age: 58 y.o. Encounter Diagnoses Code Name Primary? Z74.09 Reduced mobility R29.898 Weakness of both lower extremities Z74.09 Impaired functional mobility, balance, gait, and endurance Date of Onset: 09/15/2019 Referring Provider: James Farmer MD # of PT Visits to Date: 3 Start Time: 1115 Stop time: 1200 Duration: 45 minutes Timed Treatment Codes: 45 minutes Rehab Precautions Fluoroscopy Exam from 09/22/2019 in [facility]RAY Rehab Precautions Precautions None Pain Assessment: Pain Scale Used: NUMERIC Pain Rating Pre Assessment: 4 Location: low back Subjective: Patient reports that she is doing ok but her low back is kind of bothering her today. She still has a hard time lifting her feet up to clear rugs at home, often trips on them. Goals: Patient Reported Outcome Goals Patient Reported Outcome Goals: PSFS, ABC Patient Specific Functional Scale Goal 1: Pt will demonstrate ability to tandem stance for 30 secs without loss of balance to improve confidence with stability Patient Specific Functional Scale Goal 1 Status: 0 Patient Specific Functional Scale Goal 2: Increase gait to 30 minutes over varied terrain w ithout limitations or pain. Patient Specific Functional Scale Goal 2 Status: 0 Patient Specific Functional Scale Goal 3: Independent home exercise program to facilitate i ndependent symptom management. Patient Specific Functional Scale Goal 3 Status: 0 Objective: Therapeutic exercises and stretches for strengthening and mobility x 10 min: Recumbent bike x 8 min, level 3 HS stretches at stairs Therapeutic activity for functional mobility x 35 min: Standing hip abduction x 15 reps bilaterally Standing hip extension x 15 reps bilaterally Standing hamstring curls x 15 reps bilaterally Standing in place with high marches, 1 hand on rail x 20 reps bilaterally Partial squats x 15 reps- cues for hip hinging Standing balance with feet together x 30 sec Modified tandem balance with each foot forward x 30 sec Lateral step ups to foam pad x 12 reps bilaterally- rail as needed for balance Stepping forward and back with one foot on foam pad x 12 reps bilaterally- rail for michael nce Assessment: Cherrie was able to complete the above exercises with minimal complaints of increased pain or discomfort. She was given frequent cues to keep her core engaged and to be mindful of post ure. She has some weakness and coordination deficits on her left lower extremity with stand ing and balance activities. She continues to benefit from skilled PT to help maximize stren gthening and safety with mobility. Plan: Continue to work on lower extremity strengthening and balance. Electronically signed by: Angie Sauer PTA, 10/24/2019 3:38 PM Patient Name: Cherrie Quijano/: 1960/ documented in this encounter Plan of Treatment Not on filedocumented as of this encounter Visit Diagnoses + + | Diagnosis | + + | Reduced mobility Other ill-defined conditions | + + | Weakness of both lower extremities | + + | Impaired functional mobility, balance, gait, and endurance | + + documented in this encounter"
--- OUTSIDE RECORDS SUMMARY | ~2020-05-16 | XMS | Encounter Summary ---
Demographics + + + | Address | [address] | | | [place] [address] | + + + | Home Phone | | + + + | Preferred Language | Unknown | + + + | Marital Status | Single | + + + | Mormon Affiliation | 1013 | + + + | Race | Unknown | + + + | Ethnic Group | Unknown | + + + Author + + + | Author | [facility] | | | and [place] | + + + | Organization | [facility] | | [...] Team Providers + +------+ + | Care Adjunct Psychology Faculty Member Name | Role | Phone | + +------+ + | James Farmer MD | PCP | | + +------+ + Reason for Visit +--------+--------+ + | Reason | Onset | Comments | | | Date | | +--------+--------+ + | Other | 04/05/ | | | | 2019 | | +--------+--------+ + Encounter Details +--------+ + + + + | Date | Type | Department | Care Team | Description | +--------+ + + + + | 04/05/ | Telephone | [facility] | Nishant Arceo | Other | | 2019 | | GASTROENTEROLOGY | MD [address] | | | | | [address] [place] | [address] [facility] | | | | | [address] [place] | [facility] [place] [address] | | | | | [address] | [phone] | | | | | [phone] | | | +--------+ + + + [...] Telephone Encounter - Berna Esqueda RN - 04/16/2020 3:16 PM PDTLeft message for raman bailey to follow up to our conversation last week and see how she is doing; if she feels the prednisone has worn off (should have by now); tried OTC meds like tums, mylanta, gaviscon or pepto for her reflux feeling; saw she has followed up and made contact with PCP. Electronic ally signed by Berna Esqueda RN at 04/16/2020 3:18 PM PDTTelephone Encounter - Nishant Arceo MD - 04/10/2020 4:18 PM PDTTakes about 3-4 days for the pred to wear off. She just stopped famotidine. She didn't like it, so she told me. I don't think antiacids will help her right now. She can use tums, mylanta, or gaviscon or pepto on a PRN basis. She seemed manic when I was talking to her. I agree that she should get in to see Dr Samy king for this. The prednisone could be to blame, but it should have worn off by now. elephone Encount er - Berna Esqueda RN - 04/10/2020 2:04 PM PDTPatient called in again this afternoo n to advise me of her allergy to Prednisone; she wanted to know how long it would take for t he side effects to leave her system; She wanted to know about the repeat esophagram study he stated; She is all over the place with questions about antacids, someone to talk to about the psych ogenic component and then about why the doctor would prescribe such a high dose of medicatio n "to someone like me". Advised she could follow up with her PCP on the psychogenic topic a nd I will check with Dr. Arceo on the antacid and imaging. elephone Encounter - Kurt Perez - 0 9:39 AM PDTName of Caller: Cherrie Quijano Name of Patient: Cherrie Quijano Reason for call: Patient called and wanted to speak with Berna in regards to having a r eaction to the medication. Pt wants a new antiacid medication and is having withdraws on pre dnisone. Pt can't keep food down and states that she is malnourish. PT aware of Berna muro and informed her that if you can not wait there is urgent care or ER. Routing to clinical staff. Provider/Nurse: Dr. Arceo / Berna Call back number:[phone] elephone Encounter - Berna Crook RN - 04/05/2020 1:25 PM PDTReviewed ED visit; routed to Dr. Arceo to ad vise; contacted patient but no answer, left detailed message to advise above information; sh e is scheduled for OV on 04/[address] Arceo in clinic; advised to not continue with hyoscya mine if this was not already recommended; advised our office would be closing soon for the w eekend so if further issues develop that could not wait until Wednesday to follow up with ED. E lectronically signed by Berna Esqueda RN at 04/05/2020 1:28 PM PDTTelephone Encounte r - Kurt Perez - 04/05/2020 1:14 PM PDTPatient called and wanted to let the clinic st aff know that she had a reaction to the hyoscyamine. Patient was seen in the ER today. Routing to clinical staff to inform. Pt scheduled for in clinic visit on April 17, [address] Arceo. documented in this encounter Plan of Treatment Not on filedocumented as of this encounter Visit Diagnoses Not on filedocumented in this encounter
--- OUTSIDE RECORDS SUMMARY | ~2020-05-16 | XMS | Encounter Summary ---
Demographics + + + | Address | [address] | | | [place] [address] | + + + | Home Phone | | + + + | Preferred Language | Unknown | + + + | Marital Status | Single | + + + | Restoration Affiliation | 1013 | + + + | Race | Unknown | + + + | Ethnic Group | Unknown | + + + Author + + + | Author | [facility] | | | and [place] | + + + | Organization | [facility] | | [...] Team Providers + +------+ + | Care Lehr Tender Name | Role | Phone | [...] | Reduced | James Dennis MD | Helper | | | Required | Rehabilitatio | mobility | [address] | Therapy [address] | | | | n | Unsteady | [address] [place] [address] | | | | | gait | [place], [place] | [place], | | | | | Procedures | [address] | [place] [address] | | | | | PT | Phone: | Phone: | | | | | | [phone] | [phone] | | | | | | Fax: | Fax: | | | | | | [phone] | [phone] | +--------+ + + + + + Encounter Details +--------+ + + + + | Date | Type | Department | Care Team | Description | +--------+ + + + + | 09/15/ | Orders Only | [facility] [place] [facility] | James Farmer, | Reduced mobility | | 2019 | | MEDICINE [address] | [address] | (Primary Dx); | | | | [place], | [place] | Unsteady gait | | | | [place] [address] | [address] | | | | | [phone] | | | +--------+ + + + [...] [place] | Outpatient | Routin | Reduced mobility | Ordered: 09/15/2019 | | [facility] Med | Referral | e | Unsteady gait | | | Physical Therapy- | | | | | | AMB Referral | | | | | + + +--------+ + + documented as of this encounter Visit Diagnoses + + | Diagnosis | + + | Reduced mobility - Primary Other ill-defined conditions | + + | Unsteady gait Abnormality of gait | + + documented in this encounter"
--- OUTSIDE RECORDS SUMMARY | ~2020-05-16 | XMS | Encounter Summary ---
Demographics + + + | Address | [address] | | | [place] [address] | + + + | Home Phone | | + + + | Preferred Language | Unknown | + + + | Marital Status | Single | + + + | Mosque Affiliation | 1013 | + + + [...] Team Providers + +------+ + | Care Forensic Economist Name | Role | Phone | + +------+ + | James Farmer MD | PCP | | + +------+ + Reason for Visit Diagnostic/Screening (Routine) +--------+--------+ + + + + | Status | Reason | Specialty | Diagnoses / | Referred By | Referred To | | | | | Procedures | Contact | Contact | +--------+--------+ + + + + | Closed | | Radiology | Diagnoses | | [address] | | | | | Chronic | [place], | [address] | | | | | recurrent | Kapil | [place], | | | | | sinusitis | MD Tang | [place] [address] | | | | | Procedures | [address] | Phone: | | | | | CT Sinus WO | [place] | [phone] | | | | | Contrast | [place] | Fax: | | | | | | [address] | [phone] | | | | | | Phone: | | | | | | | [phone] | | | | | | | Fax: | | | | | | | [phone] | | +--------+--------+ + + + + Encounter Details +--------+ + + + + | Date | Type | Department | Care Team | Description | +--------+ + + + + | 12/14/ | Hospital | [facility] | [facility] [place], | | | 2018 | Encounter | MED CTR [address] | Kapil Beckwith MD | | | | | [place], | [address] | | | | | [place] [address] | [place], [place] | | | | | [phone] | [address] | | | | | | | [...] + + + +---------+ + + | cephalexin | Take 1 capsule by | 90 | 0 | 12/10/19 | | | (KEFLEX) 500 mg | mouth 3 times daily | capsule | | 18 | 8 | | capsule | for 30 days. | | | | | + + + +---------+ + + | DiphenhydrAMINE | Take 1 tablet by | | 0 | | | | HCl, Sleep, (SLEEP | mouth nightly as | | | | 9 | | AID) 25 MG CAPS | needed. | | | | | + + [...] TABLET BY | 90 | 1 | 11/26/19 | | | dinitrate (ISORDIL) | MOUTH THREE TIMES | tablet | | 18 | 8 | | 10 mg tablet [...] + + + +---------+ + + | pseudoePHEDrine | Take 60 mg by mouth | | 0 | | | | (SUDAFED) 60 MG | every 4 hours as | | | | 9 | | tablet | needed for | | | | | | | Congestion. | | | | | + + [...] CT Sinus WO Contrast (12/14/2017 9:51 AM PST) + + | Specimen | [...]
--- OUTSIDE RECORDS SUMMARY | ~2020-05-16 | XMS | Encounter Summary ---
Demographics + + + | Address | [address] | | | [place] [address] | + + + | Home Phone | | + + + | Preferred Language | Unknown | + + + | Marital Status | Single | + + + | Sikh Affiliation | 1013 | + + + | Race | Unknown | + + + | Ethnic Group | Unknown | + + + Author + + + | Author | [facility] | | | and [place] | + + + | Organization | [facility] | | | and [...] Team Providers + +------+ + | Care Associate Theatre Professor Name | Role | Phone | + +------+ + | No, Physician | PCP | Unavailable | + +------+ + Reason for Visit + + + | Reason | Comments | + + + | Dysphagia | Ex 5/ throat doesn't hurt just doesn't feel right trying to | | | swollow bolus of food, fluids are ok. | + + + Encounter Details +--------+---------+ + + + | Date | Type | Department | Care Team | Description | +--------+---------+ + + + | 04/24/ | Office | [facility] [place] [facility] | Rodriguez Pena, | Dysphagia, | | 2017 | Visit | CARE [address] | [address] | unspecified type | | | | [place] | [place] | | | | | [address] | [address] | | | | | [phone] | | | +--------+---------+ + + + [...] + + + | Blood Pressure | 121/62 | 04/24/2017 8:16 AM | | | | | PDT | | + + + + + | Pulse | 83 | 04/24/2017 8:16 AM | | | | | PDT | | + + + + + | Temperature | 37 C (98.6 F) | 04/24/2017 8:16 AM | | | | | PDT | | + + + + + | Respiratory Rate | 18 | 04/24/2017 8:16 AM | | | | | PDT | | + + + + + | Oxygen Saturation | - | - | | + + + + + | Inhaled Oxygen | - | - | | | Concentration | | | | + + + + + | Weight | 89 kg (196 lb 3.2 | 04/24/2017 8:16 AM | | | | oz) | PDT | | + + + + + | Height | 162.6 cm (5' 4") | 04/24/2017 8:16 AM | | | | | PDT | | + + + + + | Body Mass Index | 33.68 | 04/24/2017 8:16 AM | | | | | PDT | | + + + + + documented in this encounter Patient Instructions Patient Instructions Rodriguez Pena MD - 04/24/2017 8:15 AM PDTThe nurse here we'll sta rt scheduling your barium swallow test on Wednesday 2 days from now. You should get a phone ca ll from her on that day. The test will probably be done within a day or 2 after that. Afte r you have finished the test you can come here to urgent care to discuss the results. Betpauline torres now and then I would just eat soft foods or liquids like soup. documented in this encounter Progress Notes Rodriguez Pena MD - 04/24/2017 8:15 AM PDTFormatting of this note might be different fr om the original. Subjective: Patient ID: Cherrie Quijano is a 56 y.o. female. HPI Patient's medications, allergies, past medical, surgical, social and family histories were obtained and reviewed as appropriate. This lady came in because of a feeling like she can't swallow properly. It has been bother ing her off and on for a few months but especially the last 5 days. She sometimes feels a l ittle like food is going to get stuck though nothing has. She has not vomited or so. Up an ything. She has had no trouble breathing. It does make her anxious though. She tends to b e stressed and asked if this could be just related to stress. Her daughter recently moved t [facility]. So that's a recent stress she has had. She has not had any significant weigh t loss. She says she thinks because she can't eat as well she may have lost 5 pounds. She' s had no change in her voice she says. She denies any other complaint such as nausea or vom iting. I reviewed her past history and meds. She has no regular physician. Review of Systems Constitutional: Negative. HENT: Negative. Respiratory: Negative. Cardiovascular: Negative. Gastrointestinal: Difficulty swallowing Musculoskeletal: Negative. Objective: Physical Exam Constitutional: She is oriented to person, place, and time. She appears well-developed and well-nourished. No distress. HENT: Head: Normocephalic. Nose: Nose normal. Mouth/Throat: Oropharynx is clear and moist. Eyes: Conjunctivae are normal. Pupils are equal, round, and reactive to light. Neck: Normal range of motion. No tracheal deviation present. No thyromegaly present. Cardiovascular: Normal rate, regular rhythm and normal heart sounds. Pulmonary/Chest: Effort normal and breath sounds normal. No stridor. Musculoskeletal: Normal gait and balance Lymphadenopathy: She has no cervical adenopathy. Neurological: She is alert and oriented to person, place, and time. Vitals reviewed. Assessment: 1. Dysphagia, unspecified type FL Esophagram Complete Plan: Please see the AVS for the plan unless outlined elsewhere. I have talked with her at some length and she has quite a few questions in his somewhat anx ious. She did not want to see the spring encaser. She is agreeable to get a barium swa llow done. I've put a request in for this to be scheduled. I've told her to expect a phone call on Wednesday 2 days from now setting up the scheduled time. After the test is done she s lamar come here to urgent care to discuss the results. Between now and then she should simp ly eat soft foods and soup and things like that. She had no other questions. documented in this e ncounter Plan [...] + documented in this encounter Results FL Esophagram Complete (04/27/2017 10:25 AM PDT) + + | Specimen | + + | | + + + + + | Narrative | Performed At | + + + | ESOPHAGRAM: 04/27/2017 10:24 AM CLINICAL HISTORY: dysphagia | [facility] | | COMPARISON: None FINDINGS: Swallowing was prompt and | [facility] | | coordinated. No penetration or aspiration of barium into the airway [facility] | | at any time. Cervical esophagus showed normal contour and | - IMAGING | | contraction. No cricopharyngeal muscle spasm. Thoracic esophagus | | | showed poor primary and secondary contractions with some tertiary | | | contractions. Esophageal mucosa is well demonstrated. Mild prominence | | | of the mucosal folds in the distal esophagus just above the GE | | | junction. Sliding-type hiatal hernia with spontaneous | | | gastroesophageal reflux to the level of the clavicles. Mildly | | | distended esophagus with poor esophageal emptying. No abnormal | | | external compression of the esophagus. No fixed stricture or filling | | | defect. IMPRESSION - 1. Small sliding-type hiatal hernia with | | | spontaneous gastroesophageal reflux. 2. Poor esophageal | | | contractility with no fixed stricture. 3. Prominence to the | | | esophageal mucosa distally. In this setting, further assessment of | | | this finding with endoscopy would be recommended. Dictated and | | | Signed by: Romulo Abraham MD Electronically signed: 04/27/2017 11:49 | | | AM | | + + + + + | Procedure Note | + + | Manohar, Rad Results In - 04/27/2017 11:52 AM PDT ESOPHAGRAM: 04/27/2017 10:24 AM | | | | CLINICAL HISTORY: dysphagia | | | | COMPARISON: None | | | | FINDINGS: | | Swallowing was prompt and coordinated. No penetration or aspiration of barium | | into the airway at any time. | | | | Cervical esophagus showed normal contour and contraction. No cricopharyngeal | | muscle spasm. | | | | Thoracic esophagus showed poor primary and secondary contractions with some | | tertiary contractions. Esophageal mucosa is well demonstrated. Mild prominence | | of the mucosal folds in the distal esophagus just above the GE junction. | | Sliding-type hiatal hernia with spontaneous gastroesophageal reflux to the level | | of the clavicles. Mildly distended esophagus with poor esophageal emptying. No | | abnormal external compression of the esophagus. No fixed stricture or filling | | defect. | | | | IMPRESSION - | | 1. Small sliding-type hiatal hernia with spontaneous gastroesophageal reflux. | | | | 2. Poor esophageal contractility with no fixed stricture. | | | | 3. Prominence to the esophageal mucosa distally. In this setting, further | | assessment of this finding with endoscopy would be recommended. | | | | Dictated and Signed by: Romulo Abraham MD | | Electronically signed: 04/27/2017 11:49 AM | + + + + + + + | Performing | Address | City/State/Zipcode | Phone Number | | Organization | | | | + + + + + | [facility] | [address] | [place], [place] | [phone] | | [facility] | | [address] | | | - IMAGING | | | | + + + + + documented in this encounter Visit Diagnoses + + | Diagnosis | + + | Dysphagia, unspecified type | + + documented in this encounter
--- OUTSIDE RECORDS SUMMARY | ~2020-05-16 | XMS | Encounter Summary ---
Demographics + + + | Address | [address] | | | [place] [address] | + + + | Home Phone | | + + + | Preferred Language | Unknown | + + + | Marital Status | Single | + + + | Latter Day Affiliation | 1013 | + + + | Race | Unknown | + + + | Ethnic Group | Unknown | + + + Author + + + | Author | [facility] | | | and [place] | + + + | Organization | [facility] | | | [...] Team Providers + +------+ + | Care Parking Control Officer Name | Role | Phone | + +------+ + | James Farmer MD | PCP | | + +------+ + Reason for Visit + + + | Reason | Comments | + + + | Swallowing | ongoing issue of swallowing difficulty -had endoscopy and botox | | Difficulty | injections of esophagus 04/01/20 - hx hiatal hernia - patient | | | states vomiting and unable to keep food, pills and sometimes | | | liquids down - started imipramine yesterday - states causing | | | restlessness and dry mouth, feeling anxious and fearful about | | | swallowing | + + + Encounter Details +--------+ + + + + | Date | Type | Department | Care Team | Description | +--------+ + + + + | 04/11/ | Clinical | [facility] [place] [facility] | EvelinnolananitaNicolasCombs, | Patient left after | | 2019 | Support | CARE [address] | KELLY Godoy | triage (Primary Dx) | | | | [place] | [address] | | | | | [address] | [place] | | | | | [phone] | [address] | | | | | | | [...] + + + | Blood Pressure | 123/81 | 04/11/2020 7:13 PM | | | | | PDT | | + + + + + | Pulse | 81 | 04/11/2020 7:13 PM | | | | | PDT | | + + + + + | Temperature | 37.1 C (98.7 F) | 04/11/2020 7:13 PM | | | | | PDT | | + + + + + | Respiratory Rate | 18 | 04/11/2020 7:13 PM | | | | | PDT | | + + + + + | Oxygen Saturation | 99% | 04/11/2020 7:13 PM | | | | | PDT | | + + + + + | Inhaled Oxygen | - | - | | | Concentration | | | | + + + + + | Weight | - | - | | + + + + + | Height | - | - | | + + + + + | Body Mass Index | - | - | | + + + + + documented in this encounter Progress Notes Vicki Fernandez RN - 04/11/2020 6:30 PM PDT This is a Rapid Triage & this patient was not seen by a physician during this triage: Chief Complaint Patient presents with Swallowing Difficulty ongoing issue of swallowing difficulty -had endoscopy and botox injections of esophagus - hx hiatal hernia - patient states vomiting and unable to keep food, pills and somet imes liquids down - started imipramine yesterday - states causing restlessness and dry mouth , feeling anxious and fearful about swallowing BP 123/81 | Pulse 81 | Temp 37.1 C (98.7 F) (Temporal) | Resp 18 | LMP (LMP Unknow n) | SpO2 99% Relevant History related to today's visit: 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 The patient has chosen: [facility] [] Other: Reason for triage recommendation: Out of Scope of Practice or Complex Medical Needs Suspected Cardiac: [] Seizures: [] Advanced Respiratory Condition: [] Head Injury with LOC: [] Pre- Problems: [] Victim of Crime: [] Child/Elder Abuse: [] Severe Abdominal Pain: [] "Worst pain in life": [] Need for IV Medication: [] After-hours Radiology Reading needs by [facility]: [] Patient with complex workup needs to close to closing time: [x] Patient in need of hospital admission: [] Patient at risk if to remain in Urgent Care: [x] Patient refused assessment during triage: [] The recommended mode of transportation is: Patient/Family Transport-- X -significant other will transport to ED Staff Transport-- EMS-- Other: Patient has Accepted or Declined these recommendations: [x] Accept [] Decline Patient/guardian signature will be scanned in to EMR *Patient has been advised to the reasons that he/she is being triaged to the ED* [x] *Report has been called to the ED charge nurse regarding triage findings* [x] Nurse's name who took report: MORGAN Damon *The patient has been informed that the ED staff will be aware of his/her arrival, although patient may not be roomed immediately, they will be seen as soon as possible.* [x] documented in thi s encounter Plan of Treatment Not on filedocumented as of this encounter Visit Diagnoses + + | Diagnosis | + + | Patient left after triage - Primary | + + documented in this encounter
--- OUTSIDE RECORDS SUMMARY | ~2020-05-16 | XMS | Encounter Summary ---
Demographics + + + | Address | [address] | | | [place] [address] | + + + | Home Phone | | + + + | Preferred Language | Unknown | + + + | Marital Status | Single | + + + | Adventism Affiliation | 1013 | + + + [...] Team Providers + +------+ + | Care Equity Manager Name | Role | Phone | [...] | Specialty | Gastroenterol | Diagnoses | [place], | [facility] | | | Services | ogy | Colon | James Dennis MD | Gastroenterol | | | Required | | cancer | [address] | ogy [address] | | | | | screening | [address] [place] | [address] | | | | | | [place], [place] | [address] [place] | | | | | | [address] | [place], [place] | | | | | | Phone: | [phone] | | | | | | [phone] | Phone: | | | | | | Fax: | [phone] | | | | | | [phone] | Fax: | | | | | | | [phone] | +--------+ + + + + + + + | Scheduling Instructions | + + | Colon cancer screening | + + Encounter Details +--------+ + + + + | Date | Type | Department | Care Team | Description | +--------+ + + + + | 01/11/ | Orders Only | [facility] [place] [facility] | James Farmer, | Colon cancer | | 2018 | | MEDICINE [address] | [address] | screening (Primary | | | | [place], | [place] | Dx) | | | | [place] [address] | [address] | | | | | [phone] | | | +--------+ + + + [...] [facility] [place] | Outpatient | Routin | Colon cancer | Ordered: 01/11/2018 | | Gastroenterology - | Referral | e | screening | | | AMB Referral | | | | | + + +--------+ + + documented as of this encounter Visit Diagnoses + + | Diagnosis | + + | Colon cancer screening - Primary Special screening for malignant neoplasms, colon | + + documented in this encounter"
--- OUTSIDE RECORDS SUMMARY | ~2020-05-16 | XMS | Encounter Summary ---
Demographics + + + | Address | [address] | | | [place] [address] | + + + | Home Phone [...] Team Providers + +------+ + | Care Lathe Scalper Operator Name | Role | Phone | + +------+ + | James Farmer MD | PCP | | + +------+ + Reason for Visit + +--------+ + | Reason | Onset | Comments | | | Date | | + +--------+ + | Medication Question | 04/25/ | | | | 2019 | | + +--------+ + Encounter Details +--------+ + + + + | Date | Type | Department | Care Team | Description | +--------+ + + + + | 04/25/ | Telephone | [facility] | James Farmer, | Medication Question | 2019 | | [place] [address] [address] | MD Juanita FUNK | | | | | [place], | [place] | | | | | [place] [address] | [address] | | | | | [phone] | | | +--------+ + + + [...] Telephone Encounter - Ashlie Blevins LPN - 04/25/2020 11:12 AM PDTReturned call to robb saldana and advised per provider that 10mg of melatonin is ok. Advised this is available over the counter. elephone Jeanmarie griffith - Kirk Jacob - 04/25/2020 8:29 AM PDTPatient is wanting to speak to Xi se about taking melatonin. Patient is having trouble sleeping for the last few nights. Vanessa haque. document ed in this encounter Plan of Treatment Not on filedocumented as of this encounter Visit Diagnoses Not on filedocumented in this encounter"
--- OUTSIDE RECORDS SUMMARY | ~2020-05-16 | XMS | Encounter Summary ---
Demographics + + + | Address | [address] | | | [place] [address] | + + + | Home Phone | | + + + | Preferred Language | Unknown | + + + | Marital Status | Single | + + + | Pentecostalism Affiliation | 1013 | + + + | Race | Unknown | + + + | Ethnic Group | Unknown | + + + Author + + + | Author | [facility] | | | and [place] | + + + | Organization | [facility] | | [...] Providers + +------+ + | Care Manager Physical Name | Role | Phone | + +------+ + | James Farmer MD | PCP | | + +------+ + Reason for Visit + +--------+ + | Reason | Onset | Comments | | | Date | | + +--------+ + | Medication Problem | 11/29/ | | | | 2019 | | + +--------+ + Encounter Details +--------+--------+ + + + | Date | Type | Department | Care Team | Description | +--------+--------+ + + + | 11/29/ | Refill | [facility] | James Farmer, | Medication Problem | | 2019 | | [address] | | | | | [place], | [place] | | | | | [place] [address] | [address] | | | | | [phone] | | | +--------+--------+ + + + Social History + + [...] Telephone Encounter - Ashlie Blevins LPN - 11/30/2019 8:00 AM PSTReturned call to robb saldana and left voice mail to return call if needed. Advised that if her question was what to do if she was vomitting and could not keep her medication down that the dr advised that she bhavna l just have to wait until her next dose and try again. elephone Encounter - Catherine Peters - 11/29/2019 4:37 PM PSTPatient called wanting to speak to the nurse regarding Diltiazem 60mg. States she wasn't able to eat breakfast and started vomiting. Please advise. documented in this encounter Plan of Treatment Not on filedocumented as of this encounter Visit Diagnoses Not on filedocumented in this encounter"
--- OUTSIDE RECORDS SUMMARY | ~2020-05-16 | XMS | Encounter Summary ---
Demographics + + + | Address | [address] | | | [place] [address] | + + + | Home Phone | | + + + | Preferred Language | Unknown | + + + | Marital Status | Single | + + + | Rastafarian Affiliation | 1013 | + + + [...] Team Providers + +------+ + | Care Secondary School Registrar Name | Role | Phone | + +------+ + | James Farmer MD | PCP | | + +------+ + Encounter Details +--------+ + + + + | Date | Type | Department | Care Team | Description | +--------+ + + + + | 11/12/ | Episode | [facility] | Berna Esqueda | | | 2016 | Changes | GASTROENTEROLOGY | [place] | | | | | [address] [facility] | | | | | | [address] [place] | | | | | | [address] | | | | | | [phone] | | | +--------+ + + + [...]
--- OUTSIDE RECORDS SUMMARY | ~2020-05-16 | XMS | Encounter Summary ---
Demographics + + + | Address | [address] | | | [place] [address] | + + + | Home Phone | | + + + | Preferred Language | Unknown | + + + | Marital Status | Single | + + + | Sikh Affiliation | 1013 | + + + | Race | Unknown | + + + | Ethnic Group | Unknown | + + + Author + + + | Author | [facility] | | | and [place] | + + + | Organization | [facility] | | | and [...] Team Providers + +------+ + | Care Planning Coordinator Name | Role | Phone | + +------+ + | James Farmer MD | PCP | | + +------+ + Reason for Referral Evaluate & Treat (Emergency) +--------+ + + + + + | Status | Reason | Specialty | Diagnoses / | Referred By | Referred To | | | | | Procedures | Contact | Contact | +--------+ + + + + + | Closed | Specialty | Otolaryngolog | Diagnoses | Darian, | Luis Escobar | | | Services | y | | James Dennis MD | MD Jeanc[address] | | | Required | | Oropharyngea | [address] | | | | | l dysphagia | [address] [place] | [address] | | | | | | [place], [place] | [place], | | | | | | [address] | [place] [address] | | | | | | Phone: | Phone: | | | | | | [phone] | [phone] | | | | | | Fax: | Fax: | | | | | | [phone] | [phone] | +--------+ + + + + + + + | Scheduling Instructions | + + | Please refer to Dr. Harris for evaluation of swallowing difficulty | + + Reason for Visit + + + | Reason | Comments | + + + | ED Follow-up | on 08/22 was in to Urgent Care regarding Sinus issues and | | | congestion | + + + Encounter Details +--------+---------+ + + + | Date | Type | Department | Care Team | Description | +--------+---------+ + + + | 08/31/ | Office | [facility] | James Farmer, | Oropharyngeal | | 2016 | Visit | MEDICINE [address] | dysphagia (Primary | | | | [address] [place], | [place], [place] | Dx); Conversion | | | | [place] [address] | [address] | disorder; Esophageal | | | | [phone] | | dysmotility; Globus | | | | | | hystericus | +--------+---------+ + + + Social History [...] + + + | Blood Pressure | 104/70 | 08/31/2017 11:20 AM | | | | | PDT | | + + + + + | Pulse | 90 | 08/31/2017 11:20 AM | | | | | PDT | | + + + + + | Temperature | 37.3 C (99.1 F) | 08/31/2017 11:20 AM | | | | | PDT | | + + + + + | Respiratory Rate | 18 | 08/31/2017 11:20 AM | | | | | PDT | | + + + + + | Oxygen Saturation | 98% | 08/31/2017 11:20 AM | | | | | PDT | | + + + + + | Inhaled Oxygen | - | - | | | Concentration | | | | + + + + + | Weight | 77.1 kg (170 lb) | 08/31/2017 11:20 AM | | | | | PDT | | + + + + + | Height | 157.5 cm (5' 2") | 08/31/2017 11:20 AM | | | | | PDT | | + + + + + | Body Mass Index | 31.09 | 08/31/2017 11:20 AM | | | | | PDT | | + + + + + documented in this encounter Patient Instructions Patient Instructions James Farmer MD - 08/31/2017 12:18 PM PDT Dysphagia Diet: Level 2 (Mechanically Altered) A level 2 dysphagia diet is a special eating plan. Your healthcare provider may tell you to use it if you have mild to moderate dysphagia and are able to do some chewing. What is a dysphagia diet? When you have dysphagia, you have trouble swallowing. You are also at risk for aspiration. Aspiration is when food or liquid enters the lungs by accident. It can cause pneumonia and o ther problems. A dysphagia diet can help prevent aspiration. The foods you eat can affect your ability to swallow. For example, soft foods are easier to swallow than hard foods. A dysphagia diet plan has 3 levels. Each level is based on how ser ious a person s dysphagia is. A level 2 diet is the intermediate level. People on this t should eat moist and soft-textured foods that are easy to chew. They can also eat pureed, pudding-like foods. They should avoid foods with coarse textures. What can you eat? If you are on a level 2 dysphagia diet, there are certain foods you can and can t eat. Ma saeid sure you follow all your healthcare provider s instructions. Even eating 1 food that is not approved can greatly raise your risk for aspiration. Foods you can eat: Pureed breads (also called pre-gelled breads) Cooked cereals with little texture, such as oatmeal, or slightly moistened dry cereals w ith little texture, such as corn flakes Smooth puddings, custards, yogurts, and pureed desserts Soft bananas, pureed fruits, and most canned and cooked fruits without seeds or skins Tender meat moistened with gravy, cut into very small pieces Cottage cheese, tofu, and well-cooked beans Poached, scrambled, or soft-cooked eggs Well-cooked potatoes, noodles, and dumplings Mashed potatoes Soups with easily chewed pieces Soft, well-cooked vegetables, cut into very small pieces Souffles Foods to avoid: Other non-pureed dry breads Very coarse cereals Coarse, dry cakes and cookies, or any desserts with added dried fruits, seeds, or nuts Fresh or frozen whole fruit or cooked fruit with skin or seeds, or dried fruit Canned pineapple Dry or tough meats Soups with large chunks Raw or barely cooked vegetables Seeds, nuts, or chewy candies During and after eating While eating, it may help to sit upright. You may need support pillows to get into the best position. It may also help to have few distractions while drinking. Changing between solid food and liquids may also help your swallowing. Stay upright for at least 30 minutes after eating. This can help reduce the risk for aspira tion. Keep watch for symptoms of aspiration such as: Coughing or wheezing during or right after eating Too much saliva Shortness of breath or tiredness while eating A wet-sounding voice during or after eating or drinking Fever 30 to 60 minutes after eating Tip Take the time to make meals that look, smell, and taste good. Add seasonings to your food. Set the table. Even though you can t have certain foods, you can still enjoy eating. Drinking liquids Ask your healthcare provider about what kinds of liquids are safe for you on a level 2 dysp hagia diet. Some people can drink thin liquids, but others should not. If you can t have t hin liquids, make sure your liquids are thickened. Your healthcare provider will give you mo re information about how to manage the thickness of liquids. While you re on a dysphagia diet Follow all instructions about what food and drink you can have. Do swallowing exercises as advised. Do not change your food or liquids, even if your swallowing gets better. Talk with your healthcare provider first. Tell all healthcare providers and caregivers that you are on a dysphagia diet. Explain w hich foods and liquids you can and can t have. How long a dysphagia diet is needed? Your healthcare team will keep track of how well you are swallowing. You may need follow-up tests such as a fiberoptic endoscopic evaluation of swallowing (FEES) test. If your swallow ing gets better, you may be able to change your diet. Many people who have dysphagia because of a stroke find that their swallowing problems improve with time and therapy. If your swal lowing gets better, you may be able to change to a less restrictive diet. If your swallowing gets worse, you may need to change to a level 1 diet for a period of time. Or you may need other methods of getting nutrition for a period of time. For example, you may need a feeding tube. Call 911 Call 911 if you have trouble breathing during or after eating. When to call your healthcare provider Call your healthcare provider right away if you have any of these: Your trouble swallowing gets worse Unintended weight loss Food comes back up into your mouth Vomiting A wet-sounding voice after eating or drinking Date Last Reviewed: 01/20/201719995258-9598 [employer]. [address] [place] [address]. All righ ts reserved. This information is not intended as a substitute for professional medical care. Always follow your healthcare professional's instructions. documented in this encounter Progress Notes James Farmer MD - 08/31/2017 11:30 AM PDTFormatting of this note might be different f rom the original. Subjective: Patient ID: Cherrie Quijano is a 56 y.o. female. Chief Complaint Patient presents with ED Follow-up on 08/22 was in to Urgent Care regarding Sinus issues and congestion HPI: She went to the ER after pureed beef stew. She is having trouble swallowing yogurt. S he has been having increasing trouble swallowing. She is to the point now where she is sasha id to initiate a swallow. She feels like she's lost 20 pounds over the last couple of month s because of this trouble she has with eating. She has been to the GI doctor. She was unab le to get the upper endoscopy because she has had a barium swallow which showed some esophag eal dysmotility. Is also thickening of the distal esophagus. Again she hasn't had the uppe r endoscopy to evaluate this further. Suspicious that she has had some reflux esophagitis. We discussed globus hystericus related to her fear of swallowing. She has been taking alpr azolam 3 times a day. She feels like food is stuck in her throat or in her chest when she d oes. She will only eat liquids now. We also discussed some of the mechanism for esophageal dysmotility. We discussed various foods that can make this worse or he also discussed usin g a smooth muscle relaxant with her meals to see if we can decrease her sensation of pain in her chest Past Medical History: Diagnosis Date Anxiety Depression Dysphagia 04/21/2017 GERD (gastroesophageal reflux disease) Past Surgical History: Procedure Laterality Date VEIN SURGERY Patient Active Problem List Diagnosis Date Noted POA Esophageal dysmotility 08/31/2017 Unknown Globus hystericus 08/31/2017 Unknown Thrombocytopenia 07/23/2017 Unknown Severe protein-calorie malnutrition 07/22/2017 Unknown Hyponatremia 07/21/2017 Unknown Seizure 07/21/2017 Unknown Special screening for malignant neoplasms, colon 07/20/2017 Unknown Dysphagia 06/16/2017 Unknown Hiatal hernia with GERD 06/16/2017 Unknown Reflux esophagitis 05/14/2017 Unknown Conversion disorder 05/14/2017 Unknown DEPRESSION Unknown OBESITY Unknown PERIMENOPAUSAL SYNDROME Unknown FH DEPRESSION Unknown FH DIABETES Unknown FH STROKE Unknown ANXIETY 10/06/2010 Unknown Current Outpatient Prescriptions: ALPRAZolam (XANAX) 0.25 mg tablet, Take 0.25 mg by mouth 3 times daily as needed for A nxiety. 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 30 minutes before breakfast and dinner., Disp: 180 capsule, Rfl: 3 Allergies No active allergies Intolerance No active intolerances/contraindications Review of Systems Constitutional: Positive for weight loss. HENT: Positive for sore throat. Eyes: Negative. Respiratory: Negative. Cardiovascular: Negative. Gastrointestinal: Negative. Genitourinary: Negative. Musculoskeletal: Negative. Skin: Negative. Neurological: Negative. Endo/Heme/Allergies: Negative. Psychiatric/Behavioral: The patient is nervous/anxious. Objective: BP 104/70 | Pulse 90 | Temp 37.3 C (99.1 F) (Temporal) | Resp 18 | Ht 1.575 m (5' 2 ") | Wt 77.1 kg (170 lb) | SpO2 98% | ? No | BMI 31.09 kg/m Physical Exam General survey shows no acute distress HEENT: The HEENT exam is unremarkable today her throat is unremarkable Neck: No jugular venous distention, no thyroid enlargement, no carotid bruits, the neck is supple. Lungs: Clear to auscultation and percussion bilaterally Heart: Regular rhythm, normal rate, no significant murmur no S3 no S4 Abdomen: Soft active bowel sounds nontender no organomegaly Musculoskeletal: Range of motion of joints appears to be normal, no significant arthritis i s seen in any joints. The gait appears to be normal. Neurologic: The neurologic exam appears to be symmetrically intact with no deficits noted Skin: No rashes or skin lesions seen. Psychiatric: No obvious psychiatric abnormalities noted today, the mood appears to be jaci l, no evidence of outside influences. Assessment/Plan: Cherrie was seen today for ed follow-up. Diagnoses and all orders for this visit: Oropharyngeal dysphagia - ENT, External - AMB Referral Conversion disorder Esophageal dysmotility Globus hystericus Other orders - isosorbide dinitrate (ISORDIL) 10 mg tablet; Take 1 tablet by mouth 3 times daily. 1. I will have her take alprazolam and isosorbide one half hour before she eats. This erika uld decrease her fear of eating and also should decrease any esophageal spasm that she may b e having when she eats. We discussed the effects and side effects of the isosorbide. 2. We will check routine blood tests today cystically CBC and CMP to make certain she does n't have any other electrolyte abnormalities or problems with anemia No Follow-up on file. P DTdocumented in this encounter Plan of Treatment + + +--------+ + + | Name | Type | Priori | Associated Diagnoses | Order Schedule | | | | ty | | | + + +--------+ + + | ENT, External - AMB | Outpatient | STAT | Oropharyngeal | Ordered: 08/31/2017 | | Referral | Referral | | dysphagia | | + + +--------+ + + documented as of this encounter Results Comprehensive Metabolic Panel (08/31/2017 12:27 PM PDT) + + + + + + | Component | Value | Ref Range | Performed | Pathologist | | | | | At | Signature | + + + + + + | Na | 136 | 136 - 149 | [facility] | | | | | mmol/L | [facility] | | | | | | [facility] | | | | | [facility] - | | | | | | LAB[facility]ATORY | | + + + + + + | K | 3.9 | 3.5 - 5.1 | [facility] | | | | | mmol/L | [facility] | | | | | | [facility] | | | | | | [facility] - | | | | | | LAB[facility]ATORY | | + + + + + + | Cl | 104 | 98 - 109 mmol/L | [facility] | | | | | | [facility] | | | | | | [facility] | | | | | | [facility] - | | | | | | LAB[facility]ATORY | | + + + + + + | CO2 | 28 | 24 - 31 mmol/L | [facility] | | | | | | [facility] | | | | | | [facility] | | | | | [facility] - | | | | | | LAB[facility]ATORY | | + + + + + + | Anion Gap | 4 | 3 - 16 mmol/L | [facility] | | | | | | [facility] | | | | | | [facility] | | | | | | [facility] - | | | | | | [facility]ATORY | | + + + + + + | Glucose | 111 (H) | 70 - 109 mg/dL | [facility] | | | | | | [facility] | [facility] | | | | | | [facility] - | | | | | | LAB[facility]ATORY | | + + + + + + | BUN | 9 | 7 - 18 mg/dL | [facility] | | | | | | [facility] | | | | | | [facility] | | | | | | [facility] - | | | | | | LAB[facility]ATORY | | + + + + + + | Creatinine | 0.70 | 0.60 - 1.30 | [facility] | | | | | mg/dL | [facility] | | | | | | MEDICAL | | | | | | CENTER - | | | | | | LABORATORY | | + + + + + + | eGFR if not | >60Comment: GLOMERULAR | >=60 | [facility] | | | | FILTRATION | mL/min/1.73m2 | [facility] | | | KYRGYZ | RATE,ESTIMATED | | MEDICAL | | | | mL/min/1.41i3Cmmh than | | CENTER - | | [...] + + + + | Calcium | 9.7 | 8.3 - 10.5 | [facility] | | | | | mg/dL | [facility] | | | | | | MEDICAL | | | | | | CENTER - | | | | | | LABORATORY | | + + + + + + | Albumin | 4.3 | 3.2 - 5.0 g/dL | [facility] | | | | | | [facility] | | | | | | [facility] | | | | | | [facility] - | | | | | | LABORATORY | | + + + + + + | Bilirubin | 0.7 | 0.1 - 1.5 mg/dL | [facility] | | | Total | | | [facility] | | | | | | [facility] | | | | | | [facility] - | | | | | | LABORATORY | | + + + + + + | Total | 7.5 | 6.0 - 7.8 g/dL | [facility] | | | Protein | | | [facility] | | | | | | [facility] | | | | | | [facility] - | | | | | | LABORATORY | | + + + + + + | AST | 36 | 10 - 42 U/L | [facility] | | | | | | [facility] | | | | | | [facility] | | | | | | [facility] - | | | | | | LABORATORY | | + + + + + + | ALT | 38 | 6 - 45 U/L | [facility] | | | | | | [facility] | | | | | | [facility] | | | | | | [facility] - | | | | | | LABORATORY | | + + + + + + | Alkaline | 93 | 40 - 110 U/L | [facility] | | | Phosphatase | | | [facility] | | | | | | [facility] | | | | | | C[facility] - | | | | | | LABORATORY | | + + + + + + | Globulin | 3.2 | 2.1 - 3.8 g/dL | [facility] | | | | | | [facility] | | | | | | [facility] | | | | | | [facility] - | | | | | | LAB[facility]ATORY | | + + + + + + | Albumin/Esther | 1.3 | 0.8 - 2.0 | [facility] | | | bulin Ratio | | | [facility] | | | | | | [facility] | | | | | | [facility] - | | | | | | LABORATORY | | + + + + + + | BUN/Creatin | 12.9 | | [facility] | | | ine [...] [address] | [place] | [phone] | | [facility] | | [address] | | | - LABORATORY | | | | + + + + + CBC with Differential (08/31/2017 12:27 PM PDT) + +-------+ + + + | Component | Value | Ref Range | Performed | Pathologist | | | | | At | Signature | + +-------+ + + + | WBC | 6.0 | 4.0 - 11.0 K/uL | [facility] | | | | | | [facility] | | | | | | [facility] | | | | | | C[facility] - | | | | | | LABORATORY | | + +-------+ + + + | RBC | 4.72 | 3.70 - 5.20 | [facility] | | | | | M/uL | [facility] | | | | | | [facility] | | | | | | [facility] - | | | | | | LABORATORY | | + +-------+ + + + | Hemoglobin | 13.5 | 11.5 - 16.0 | [facility] | | | | | g/dL | [facility] | | | | | | [facility] | | | | | | [facility] - | | | | | | LABORATORY | | + +-------+ + + + | Hematocrit | 40.2 | 34.0 - 47.0 % | [facility] | | | | | | [facility] | | | | | | [facility] | | | | | | [facility] - | | | | | | LABORATORY | | + +-------+ + + + | MCV | 85.1 | 83.0 - 101.0 fL | [facility] | | | | | | [facility] | | | | | | [facility] | | | | | | [facility] - | | | | | | LABORATORY | | + +-------+ + + + | MCH | 28.6 | 28.0 - 35.0 pg | [facility] | | | | | | [facility] | | | | | | [facility] | | | | | | [facility] - | | | | | | LABORATORY | | + +-------+ + + + | MCHC | 33.6 | 32.0 - 36.0 | [facility] | | | | | g/dL | [facility] | | | | | | [facility] | | | | | | C[facility] - | | | | | | LABORATORY | | + +-------+ + + + | RDW-CV | 13.8 | <15.0 % | [facility] | | | | | | [facility] | | | | | | [facility] | | | | | | [facility] - | | | | | | LABORATORY | | + +-------+ + + + | Platelet | 202 | 140 - 440 K/uL | [facility] | | | Count | | | [facility] | | | | | | [facility] | | | | | | [facility] - | | | | | | LABORATORY | | + +-------+ + + + | MPV | 8.3 | fL | [facility] | | | | | | [facility] | | | [facility] | | [facility] | | | | | | [facility] - | | | | | | LABORATORY | | + +-------+ + + + | % | 63.1 | 45.0 - 82.0 % | [facility] | | | Neutrophils | | | [facility] | | | | | | [facility] | | | | | | C[facility] - | | | | | | LABORATORY | | + +-------+ + + + | % | 28.3 | 20.0 - 45.0 % | [facility] | | | Lymphocytes | | | [facility] | | | | | | [facility] | | | | | | C[facility] - | | | | | | LABORATORY | | + +-------+ + + + | % Monocytes | 6.9 | 4.0 - 12.0 % | [facility] | | | | | | [facility] | | | | | | [facility] | | | | | | [facility] - | | | | | | LABORATORY | | + +-------+ + + + | % | 0.9 | 0.0 - 5.0 % | [facility] | | | Eosinophils | | | [facility] | | | | | | [facility] | | | | | | C[facility] - | | | | | | LABORATORY | | + +-------+ + + + | % Basophils | 0.8 | 0.0 - 1.0 % | [facility] | | | | | | [facility] | | | | | | [facility] | | | | | | C[facility] - | | | | | | LABORATORY | | + +-------+ + + + | Absolute | 3.80 | 1.80 - 8.50 | [facility] | | | Neutrophils | | K/uL | [facility] | | | | | | [facility] | | | | | | C[facility] - | | | | | | LABORATORY | | + +-------+ + + + | Absolute | 1.70 | 0.60 - 3.20 | [facility] | | | Lymphocytes | | K/uL | [facility] | | | | | | [facility] | | | | | | [facility] - | | | | | | LABORATORY | | + +-------+ + + + | Absolute | 0.40 | 0.00 - 1.00 | [facility] | | | Monocytes | | K/uL | [facility] | | | | | | [facility] | | | | | | [facility] - | | | | | | LABORATORY | | + +-------+ + + + | Absolute | 0.10 | 0.00 - 0.40 | [facility] | | | Eosinophils | | K/uL | [facility] | | | | | | [facility] | | | | | | C[facility] - | | | | | | LABORATORY | | + +-------+ + + + | Absolute | 0.00 | 0.00 - 0.10 | [facility] | | | Basophils | | K/uL | [facility] | | | | [...] + + + + + | [facility] | [address] | [place] | [phone] | | [facility] | | [address] | | | - LABORATORY | | | | + + + + + documented in this encounter Visit Diagnoses + + | Diagnosis | + + | Oropharyngeal dysphagia - Primary Dysphagia, oropharyngeal phase | + + | Conversion disorder | + + | Esophageal dysmotility Dyskinesia of esophagus | + + | Globus hystericus Conversion disorder | + + documented in this encounter
--- OUTSIDE RECORDS SUMMARY | ~2020-05-16 | XMS | Encounter Summary ---
Demographics + + + | Address | [address] | | | [place] [address] | + + + | Home Phone [...] Providers + +------+ + | Care Commercial Loan Reviewer Name | Role | Phone | + +------+ + | James Farmer MD | PCP | | + +------+ + Reason for Visit + + + | Reason | Comments | + + + | Progress & Outcome | | + + + Evaluate & [...] | Difficulty | James Dennis MD | Fan | | | Required | Rehabilitatio | in walking | [address] | Therapy [address] | | | | n | Procedures | [address] | | | | | PT MODA | [place], [place] | [place], | | | | | [place] | [id number] | [place] [address] | | | | | | Phone: | Phone: | | | | | | [phone] | [phone] | | | | | | Fax: | Fax: | | | | | | [phone] | [phone] | +--------+ + + + + + Encounter Details +--------+---------+ + + + | Date | Type | Department | Care Team | Description | +--------+---------+ + + + | 06/28/ | Office | [facility] | Radha Carranza | Chronic bilateral | | 2019 | Visit | [facility] | D, PT [address] | low back pain | | | | [address] | [place]VE [place], [place] | without sciatica; | | | | [place], [place] | [address] | Impaired functional | | | | [address] | | mobility, balance, | | | | [phone] | | gait, and endurance; | | | | | | Gait instability | +--------+---------+ + + + Social History [...] encounter Progress Notes Radha Carranza, PT - 06/28/2019 9:15 AM PDT [facility] [address] [place] [id number] Physical Therapy Progress Assessment Date: 06/28/2019 Patient Information Patient Name: Cherrie Quijano Date of : 1960 Age: 58 y.o. Encounter Diagnoses Code Name Primary? M54.5, G89.29 Chronic bilateral low back pain without sciatica Z74.09 Impaired functional mobility, balance, gait, and endurance R26.81 Gait instability Date of Onset: 04/20/2019 Referring Provider: James Farmer MD Rehab Precautions Office Visit from 05/31/2019 in [facility] Re[facility] Precautions Precautions ARTF, Seizure Pain Assessment: Pain Rating Pre Assessment: 5 Pain Rating Post Assessment: 3 Location: center of low back SUBJECTIVE: Pt reports that she thinks that her walking has improved a little and that she is more confident. Says that she has not fallen since starting PT and feels that she is more aware of her body and how she is sitting, standing, and moving. Reports that her low back p ain now ranges from 3-6/10. She is still using Ibuprofen to help with pain. Has not had a lo t of time to exercise due to new job at [employer] and tooth abcess. Cherrie has completed 4 visits for treatment of low back pain, impaired balance, and gait in stability. Patient reports improvements with improved confidence, less overall pain, improvi ng ability to perform ADLs, increasing ability to lift items, can now stand for longer perio ds, increased walking distance and tolerance, and has been able to perform job duties for he r new job at [employer]. However continues to report back pain, difficulty with walking, and say s she still feels off balance at times, so still uses her walking stick when walking longer distances or on uneven surfaces. OBJECTIVE: Observation/Posture/Alignment: Pt almost able to sit fully upright but weight is still slightly shifted to the R; R pelvis is posteriorly rotated Gait: Slower gait speed; antalgic gait pattern with decreased weight shift onto R LE. Noted pt w/ lateral shift to R and R Trendelberg; After muscle energy technique, shift still present b ut less pronounced. Gait improved during assessment with use of walking stick on R. Vision: -smooth pursuit: noted impaired tracking with R eye -vergence: R eye does not come to midline -saccades: slower speed -VOR with head thrust: pt with difficulty stabilizing gaze. Noted R eye slippage > L eye sl ippage w/ head thrust in both directions. Functional Movements: Initial Assessment Progress Note / Discharge Sit<>Stand: Independent but uses UEs Independent; no longer needs to use UEs to push self u p to standing. Sit<>Supine: Independent but requires increased time and effort. Pt does not use log roll, so may benefit from training for this. Independent but requires increased time and effort.In consistent use of log roll technique. Double Leg Squat: NT Can now perform partial squat but demos impaired core control and and pelvic assymetry. Single Leg Squat: L= NT R= NT L= NT R= NT Toe Walking: Unable w/ UE support, R foot inverted Can now go up on tip toes and take a few steps without requiring UE support, but visibly unsteady on her feet. Heel Walking: Unable, inverts R ankle w/ UE support Unable to perform with out UE support. Lumbar ROM: Initial Assessment Progress Note / Discharge Flexion: WFL, some pain; no pain after ME technique WFL; no increased pain. Extension: Moderately limited but pain; abhorrent mvmt pattern Still with mild to moderate limitation and continued aberrant movement pattern. This still increases her pain, but less so than at time of initial eval. Side Bend Left: NT NT Side Bend Right: NT NT Side [place] Limited to L, but pain w/ both sides; no significant change after ME technique S till limited going to L; mild pain with B movement but less than at time of initial eval. Initial Assessment Initial Assessment Progress Note/Discharge Progress Note/Discharge Left Right Left Right HIP ROM: Grossly WFL but limited at end ranges Grossly WFL but limited at end ranges Haroon sly WFL but limited at end ranges Grossly WFL but limited at end ranges Strength: Initial Assessment Initial Assessment Progress Note / Discharge Progress Note / D ischarge Left Right Left Right Iliopsoas (L1,L2): 4+ 4; pain; slightly stronger after ME 4+ 4; mild pain Quadriceps (L3): 5 4; pain w/ MMT 5 4; mild pain but improved from initial eval Ankle DF (L4): 5 4+ 5 4+ Great Toe Ext (L5): NT NT NT NT Glute Med (L5): 4+/5 during seated MMT 4/5 during seated MMT Ankle PF (S1): 5 4+ 5 during seated MMT; pt observed to have impaired control still during functional mobility 4+ during seated MMT; however, pt still with Trendelenburg gait pattern and observed to have impaired control still during functional Ankle Eversion (S1): Not specifically tested but observed to be impaired during gait Not sp ecifically tested but observed to be impaired during gait Not specifically tested but observ ed to be impaired during gait Not specifically tested but observed to be impaired during gai t Hamstrings (S2): seated 4+ 4 5 4+ Lumbo-Pelvic Stabilizers: Impaired; observed to be 2/5 during functional mobility Impaired ; observed to be 2/5 during functional mobility Impaired; observed to be 2/5 during functio nal mobility Impaired; observed to be 2/5 during functional mobility Paraspinals: Not specifically tested but observed to be impaired during functional mobility Not specifically tested but observed to be impaired during functional mobility Still impair ed Still impaired Abductors 5 4+ 5/5 in sitting but observed to have poor control during functional mobility 4+/5 in sitting but observed to have poor control during functional mobility Adductors 5 4+ 5/5 during seated MMT 4+/5 during seated MMT Segmental Joint Mobility: Not specifically tested; pt able to reverse lumbar lordosis duri ng forward flexion. Palpation: Noted scoliosis w/ lumbar convexity to the L, not a true convexity from thoracic spine L left hip and higher L shoulder with L side pelvis lower and anterior standing/supine posi tion L foot still inverted; calcaneous still will not come to neutral unless pt forces her foot down to the floor, but she can do this now without pain. Leg length discrepancy and pelvic o bliquity improved but still not fully symmetrical, Also initially painful to palpation at L ASIS. Pelvis/leg length more symmetrical but pt still mildly tender to palpation at Neurovascular: Initial Assessment Initial Assessment Progress Note / Discharge Progress Not e / Discharge Left Right Left Right Sensation: Grossly intact to light touch Grossly intact to light touch Grossly intact to li ght touch Grossly intact to light touch Myotomes: Appears to be grossly intact, with weakness likely due to sedentary lifestyle and deconditioning. R LE is weaker overall; difficult to tell if this is due to old ankle injur y or related to low back. Pt did report transient increased back w/ quad testing. Also hip a bd slightly improved when re-assessed after pelvis was in better alignment. However, she say s that she has not been standing symmetrically since her ankle injury in the late . WFL - WNL R LE is still weaker overall, but is slowly improving with both strength and control Reflexes: Patella tendon WNL; unable to get response to Achilles test as pt could not relax feet Patella tendon WNL; unable to get response to Achilles test as pt could not relax feet NT NT Outcome Measure: Initial Assessment Progress Note / Discharge OSWESTRY: 48/100% (A score of 0% = No Functional Disability of Lumbar Spine) 22/100% (A sc ore of 0% = No Functional Disability of Lumbar Spine) The Activities Specific Balance Confidence (ABC) Scale 72.5/100% (Higher percentages indica te greater balance confidence with functional mobility) 78.12/100% (Higher percentages indicate greater balance confidence with functional mobilit y) Standardized Tests: Oswestry Disability Index (ROBER) Pain Intensity: 2 - The pain is moderate at the moment Personal Care: 1 - I can take care of myself normally but it increases my pain Liftin - I can lift heavy weights but it causes increased pain Walkin - Pain prevents me from walking more than 1 mile Sittin - Pain prevents me from sitting for more than 1 hour Standin - I can stand as long as I want but increases my pain Sleepin - My sleep is occasionally disturbed by pain Sex life (if applicable): 0 - My sex life is normal and causes no increase in pain Social Life: 1 - My social life is normal, but it increases my level of pain Travelin - I can travel anywhere but it increases my pain Oswestry Disability Index Score (Calculated): 11 Oswestry Disability Percentage Score: 22 Oswestry Disability Index Goal: Improve Oswestry score to 20% or less. Oswestry Disability Index Goal Status: Oswestry score has improved from 48% to 22%. 30 Second Chair Stand Test 30 Second Chair Stand Test: 9 Dynamic Gait Index Gait Level Surface: 2 - Mild impairment, walks 20', uses assistive device, slower speed, mi ld gait deviation Change in Gait Speed: 2 - Mild impairment: is able to change speeds but demonstrates mild g ait deviation or not gait deviation but unable to achieve a significant change in velocity o r uses assistive device. Horizontal Head Turns: 2 - Mild impairment: performs head turns smoothly with slight change in gait velocity, ie: minor disruption to smooth gait or uses walking aid Vertical Head Turns: 2 - Mild impairment: performs head turns smoothly with slight change i n gait velocity, ie minor disruption to smooth gait path or uses walking aid Gait Pivot Turn: 2 - Mild impairment: Pivot turn safely in > 3 seconds and stops with no lo ss of balance Step over Obstacle: 2 - Mild impairment: is able to step over box but must slow down and ad just steps to clear cones Step around Obstacle: 2 - Mild impairment: is able to step around both cones, but must slow down and adjust steps to clear cones Steps: 2 - Mild impairment: alternating feet, must use rail Total score: 16 The Activities-specific Balance Confidence (ABC) Scale 1. walk around the house?: 100 2. walk up or down the stairs?: 90 3. bend over and pickup driver a slipper from the front of a closet floor?: 90 4. reach for a small can off a shelf at eye level?: 100 5. stand on your tip toes and reach for something above your head?: 70 6. stand on a chair and reach for something?: 70 7. sweep the floor?: 100 8. walk outside the house to a car parked in the driveway?: 100 9. get into and out of a car?: 100 10. walk across a parking lot to the mall?: 100 11. walk up or down a ramp?: 70 12. walk in a crowded mall where people rapidly walk past you?: 100 13. are bumped into by people as you walk through the mall?: 70 14. step onto or off of an escalator while you are holding onto a railing?: 70 15. step onto or off an escalator while holding onto parcels such that you cannot hold onto the railing?: 0(does not go on escalators) 16. walk outside on icy sidewalks?: 20 ABC Scale Score (Calculated): 78.12 Activity-Specific Balance Confidence Goal: Improve Activity Balance Confidence score by 15% points or greater indicating improved confidence with functional mobility. Activity-Specific Balance Confidence Status: ABC score has improved from 72.5 to 78.12. Assessment Cherrie has been participating in therapy for treatment of low back pain, impaired balance, a nd gait instability. Patient demonstrates objective improvements with strength, balance, gai t, and functional mobility. Oswestry score has improved from 48% to 22% and ABC score has im proved from 72.5 to 78.12. Cherrie continues to have impairments with strength, ROM, gait, ba nai, pelvis asymmetry, and dysfunctional movement patterns which are affecting her ability to complete functional tasks such as safely walk without assistive device on uneven surface s, lift heavier items without increased pain, etc. Patient requires continued skilled therap y services to achieve the following updated functional goals. Rehabilitation potential: Patient demonstrates good potential to achieve established goals to address the documented impairments by participating in skilled physical therapy services. Goals: Patient Reported Outcome Goals Oswestry Disability Index Goal: Improve Oswestry score to 20% or less. Oswestry Disability Index Goal Status: Oswestry score has improved from 48% to 22%. Activity-Specific Balance Confidence Goal: Improve Activity Balance Confidence score by 15% points or greater indicating improved confidence with functional mobility. Activity-Specific Balance Confidence Status: ABC score has improved from 72.5 to 78.12. OP PT Goals Goal 1: Independent home exercise program and awareness of posture/functional body bumper s to work toward independent symptom management. Goal 2: Improve DGI score to > 22/24, which will indicate low fall risk and improved abilit y to walk and perform ADLs. Goal 2 Status: DGI score has improved from 15 to 16. Plan Date of Onset: 04/20/2019 Start of Care Date: 05/31/2019 Requested # of Visits: 16 visits 2x/week for No data was found Certification From: 05/31/2019 Certification To: 07/26/2019 Treatment Plan/Interventions PT EvaluationPT [id number] - Therapeutic [id number] - Neuromuscular [id number] 7116 - Gait [id number] - Therapeutic [id number] - Manual [id number] - Self Care/Ho me [id number] - Group Therapeutic [id number] - Physical Performance [id number] - Co mmunity/Work Reintegration Patient and/or family has indicated understanding of treatment needs and actively participa yossi in the creation of this plan for care. Today's Treatment Start Time: 922 Stop time: 1008 Duration: 45 minutes Timed Treatment Codes: 45 minutes # of PT Visits: 4 Objective: Reviewed POC, progress, goals with pt. Re-assessment completed (see above). Discussed with pt re: how this is her last approved visit through her insurance and how the front office [facility] has said that her insurance will not approve further visits with the diagnostic codes on her referral. Told pt that this PT will contact her physician to see if he would add furthe r diagnostic codes re: her back pain and then we could try to see if she could get approved for further visits, because she still has significant impairments and could benefit from fur ther therapy to address these. Pt states understanding and agreement. Instructed pt in how to adjust car seat so that her hips are slightly higher than her knees and her lumbar lordosis is supported. Pt also given SI belt and instructed in how to use th is. She demos improved pelvic stability and improved ability to shift weight When wearing b elt. Reviewed HEP and had pt completed these in the clinic to help improve core/hip muscle a ctive in order to facilitate improved control during ADLs. Encouraged pt to continue to do c urrent HEP and try to be more consistent. Next Visit: Will contact physician re: adding diagnosis code. Will call pt after hearing ba ck from Dr. Farmer. Electronically signed by: Radha Carranza PT, 07/01/2019 15:09 Patient Name: Cherrie Quijano/: 1960/ ly signed by James Farmer MD at 07/03/2019 7:40 AM PDTdocumented in this encounter Plan of [...]
--- OUTSIDE RECORDS SUMMARY | ~2020-05-16 | XMS | Encounter Summary ---
Demographics + + + | Address | [address] | | | [place] [address] | + + + | Home Phone | | + + + | Preferred Language | Unknown | + + + | Marital Status | Single | + + + | Islam Affiliation | 1013 | + + + | Race | Unknown | + + + | Ethnic Group | Unknown | + + + Author + + + | Author | [facility] | | | and [place] | + + + | Organization | [facility] | | [...] Team Providers + +------+ + | Care Driver Recruiter Name | Role | Phone | + +------+ + | James Farmer MD | PCP | | + +------+ + Reason for Visit + +--------+ + | Reason | Onset | Comments | | | Date | | + +--------+ + | Medication Orders | 03/21/ | | | | 2019 | | + +--------+ + Encounter Details +--------+ + + + + | Date | Type | Department | Care Team | Description | +--------+ + + + + | 03/21/ | Telephone | [facility] | Nishant Arceo | Medication Orders | | 2019 | | GASTROENTEROLOGY | MD [address] | | | | | [address] [facility] [place] | | | | | [address] | [place] [address] | | | | | [address] | [phone] | | | | | [phone] | | | +--------+ + + + [...] Telephone Encounter - Berna Esqueda RN - 03/25/2020 10:02 AM PDTLeft message for raman bailey to inform her the P2P was approved and will be able to proceed with EGD on 04/01/2020; reiterated that she will still need to have the COVID-19 testing 72 hr prior on this Thursday 03[place] on . elephone Encounter - Nishant Arceo MD - 03/25/2020 9:3 1 AM PDT Its only for symptomatic relief. She can take it twice a day if that is what she prefers. I did the peer to peer and it sounds like the Botox will be approved. Can probably go ahea d with scheduling her procedure at this point but would want to confirm with her insurance c ompany but they did approve it. elephone Encounter - Berna Esqueda RN - 03/21/2020 4:54 PM PDTPatient called back to the clinic after getting home; [facility] does not accept her insurance and she did not pay for the Miracle Mouth because she doesn't have that kind of money lying around either; also as mentioned in previous note, [facility] was not able to fill the Lidocaine and N ystatin mouthwash; it was recommended that she get these as individual prescriptions along w ith a liquid benadryl and mix herself by the [facility] Pharmacist. I suggested she check with her local pharmacist to see if this would be approved by them as she prefers [facility] in . She will check on this tomorrow; advised I would route this information to Dr. Arceo so he is aware she did not receive or purchase either medication. She only has the Hyoscyamine th at was ordered from the [facility] on 03/19 and she states she has only been taking it twice a day be cause she was told it could interfer with her other medication (referring to the diltiazem); advised we had received a call from the pharmacy the day it was ordered and advised the pha rmacist at that time there was no contraindication with her medications. She was still unsu re about this and said that she would only take it twice a day at this time. documented in this encounter Plan of Treatment Not on filedocumented as of this encounter Visit Diagnoses Not on filedocumented in this encounter"
--- OUTSIDE RECORDS SUMMARY | ~2020-05-16 | XMS | Encounter Summary ---
Demographics + + + | Address | [address] | | | [place] [address] | + + + | Home Phone [...] Team Providers + +------+ + | Care Metal Fitter Name | Role | Phone | [...] Description | +--------+--------+ + + + | 04/07/ | Refill | [facility] | James Farmer, | Medication Refill | | 2019 | | MEDICINE [address] | [place] [address] [facility] | | | | | [place], | [place] | | | | | [place] [address] | [id number] | | | | | [phone] | | | +--------+--------+ + + + [...]
--- OUTSIDE RECORDS SUMMARY | ~2020-05-16 | XMS | Encounter Summary ---
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 | | | | | | | ([facility]) | | | | | | | (F13.20) | | | | | | | Procedures | | | | | | | DE | | | | | | | ESOPHAGOGAST | | | | | | | RODUODENOSCO | | | | | | | PY TRANSORAL | | | | | | | DIAGNOSTIC | | | | | | | DE EGD | | | | | | | TRANSORAL | | | | | | | BIOPSY | | | | | | | SINGLE/MULTI | | | | | | | PLE DE | | | | | | | ANESTH,UGI | | | | | | | ENDOSCOPY | | | | | | | EGD | | | +--------+--------+ + + + + Encounter Details +--------+ + + + + | Date | Type | Department | Care Team | Description | +--------+ + + + + | 11/30/ | Hospital | [facility] | Loi Hui MD | Pharyngoesophageal | | 2018 | Encounter | [facility] | [address] | dysphagia | | | | [address] | [place], [place] | | | | | [place] | [address] | | | | | [address] | [phone] | | | | | [phone] | | | +--------+ + + + [...] + + + | Blood Pressure | 131/97 | 11/30/2017 2:45 PM | | | | | PST | | + + + + + | Pulse | 77 | 11/30/2017 2:45 PM | | | | | PST | | + + + + + | Temperature | 37.2 C (99 F) | 11/30/2017 2:11 PM | | | | | PST | | + + + + + | Respiratory Rate | 16 | 11/30/2017 2:45 PM | | | | | PST | | + + + + + | Oxygen Saturation | 99% | 11/30/2017 2:45 PM | | | | | PST | | + + + + + | Inhaled Oxygen | - | - | | | Concentration | | | | + + + + + | Weight | 78.9 kg (173 lb 15.1 | 11/30/2017 12:28 PM | | | | oz) | PST | | + + + + + | Height | 157.5 cm (5' 2") | 11/30/2017 12:28 PM | | | | | PST | | + + + + + | Body Mass Index | 31.81 | 11/30/2017 12:28 PM | | | | | PST | | + + + + + documented in this encounter Discharge Instructions Instructions Loi Hui MD - 11/25/2017Patient Discharge Instructions after an Endosco py Procedure ? You may resume your regular diet after discharge. ? Do not drive, operate machinery, make critical decisions or do activities that require co ordination or balance for 24hrs. ? Resume normal medications unless otherwise instructed. ? If biopsies were taken, the physician s office will contact you within 7-10 days. ? If a colonoscopy was performed, then you may continue to expel large amounts of air from your rectum. Please call the physician who did your procedure at [phone] if you have any questions or experience any of the following: ? Increasing abdominal pain, nausea, or vomiting. ? Chills and fever over 101F. ? New abdominal swelling or bloating. ? Signs of rectal bleeding (black or red stool). If you cannot get a hold of your physician, then call the [facility] [phone] . If necessary, report to the Emergency Department at [facility]. Quit smoking: If you smoke or have smoked within the last year, quitting is the most import ant thing you can do to protect and improve your health. documented in this encounter Medications at Time [...] + + + +---------+ + + | doxycycline | Take 1 capsule by | 20 | 0 | 11/28/19 | | | (MONODOX) 100 mg | mouth 2 times daily. | capsule | | 18 | 8 | | capsule | | | | | | + [...] encounter H&P Notes Loi Hui MD - 11/30/2017 1:50 PM PSTPatient interviewed, history and physical, symp toms reviewed VS signs noted, no change from previous H&P or assessment and plan.Electronic ally signed by Loi Hui MD at 11/30/2017 1:50 PM Loi Fernandez MD - 11/25/2017 2:31 PM PST PRE-ENDOSCOPY HISTORY AND PRE-SEDATION ASSESSMENT PATIENT NAME: Cherrie Quijano : 1960 TODAY'S DATE: 11/25/2017 PLANNED PROCEDURE: upper endoscopy PERTINENT HISTORY/INDICATION FOR PROCEDURE: Cherrie Quijano is a 57 y.o. female who is undergoing upper endoscopy for dysphagia and GERD. PAST HISTORY: Past Medical History: Diagnosis Date Anxiety Depression Dysphagia 04/21/2017 GERD (gastroesophageal reflux disease) PAST SURGICAL HISTORY Past Surgical History: Procedure Laterality Date VEIN SURGERY HOME MEDS: Scheduled Meds: Continuous Infusions: PRN Meds:. ALLERGIES No Known Allergies ASA CLASSIFICATION: Class 3 - A patient with severe systemic disease that limits activity b ut is not incapacitating EXAMINATION: There were no vitals taken for this visit. General: Alert and oriented Throat: Normal Lungs: [...] above. Electronically Signed by: Loi Hui MD 11/25/2017 [facility] Portions of this chart may have been created with [employer] voice recognition software. Occasi onal wrong-word or sound-alike substitutions may have occurred due to the inherent shannon itations of voice recognition software. Please read the chart carefully and recognize, using context, where these substitutions have occurred documented in this encounter Miscellaneous Notes D-C Instructions Provation - Loi Hui MD - 11/30/2017 1:43 PM PSTDischarge Instruct ions for Upper Endoscopy Patient: Cherrie Quijano : 1960 Acct: [id number] Exam Date: Thursday, November 30, 2017 Doctor: Loi Hui MD The chances of [...] If unable to reach your physician, call [facility] Emergency Department at Ext. [phone] Your doctor recommends these additional instructions: You have a contact number available for emergencies. The signs and symptoms of potential delayed complications were discussed with you. You may return to normal activities tomorrow. Written discharge instructions were provided to you. Resume your previous diet. Continue your present medications. We are waiting for your pathology results. Your physician has recommended a repeat upper endoscopy for surveillance based on pathology results. Return to your GI clinic as needed. The findings and recommendations have been discussed with you. These instructions have been explained to the patient and/or escort. A copy has been given to the patient/escort. Nurse Signature Patient Signature Escort Signature Date Loi Hui MD 11/30/2017 2:07:31 PM This report has been signed electronically.Electronically signed by Loi Hui MD at 2:07 PM PSTdocumented in this encounter Plan of Treatment Not on filedocumented as of this encounter Procedures + +--------+ + + + | Procedure Name | Priori | Date/Time | Associated Diagnosis | Comments | | | ty | | | | + +--------+ + + + | EGD | | 11/30/2017 | Gastroesophageal | | | | | 1:45 PM | reflux disease, | | | | | PST | esophagitis presence | | | | | | not specified | | | | | | (K21.9), Dysphagia, | | | | | | unspecified type | | | | | | (R13.10), | | | | | | Benzodiazepine | | | | | | dependence (HCC) | | | | | | (F13.20) | | + +--------+ + + + | EGD | Routin | 11/30/2017 | | Results for this | | | e | 1:43 PM | | procedure are in the | | | | PST | | results section. | + +--------+ + + + | POCT TEST, | Routin | 11/30/2017 | | Results for this | | URINE, QUAL | e | 12:48 PM | | procedure are in the | | | | PST | | results section. | + +--------+ + + + | BASIC METABOLIC | STAT | 11/30/2017 | | Results for this | | PANEL | | 12:48 PM | | procedure are in the | | | | PST | | results section. | + +--------+ + + + | SURGICAL PATHOLOGY | Routin | 11/30/2017 | | Results for this | | EXAM | e | 12:00 AM | | procedure are in the | | | | PST | | results section. | + +--------+ + + + documented in this encounter Results EGD (11/30/2017 1:43 PM PST) + + | Specimen | + + | | + + + + -+ | Narrative | Performed At | + + -+ | | [facility] | | GastroenterologyPatient Name: Cherrie QiujanoProcedure Date: 11/30/2017 | [facility] | | 1:43 PMMRN: [id number] #: [id number] of : | | | 1Admit Type: AmbulatoryAge: 57Room: [facility] 02Gender: | | | FemaleNote Status: FinalizedAttending MD: Loi Hui , | | | MDProcedure: Upper GI endoscopyIndications: | | | Dysphagia, Suspected esophageal refluxProviders: Loi | | | Austin Hui MD, Pushpa Kim RN, Ayad Zacarias CMA, | | | Feliz Benítez MD (Anesthesia Staff)Medicines: | | | Monitored Anesthesia CareComplications: No [...] the anesthesiologist and the | | | pharmacy technician instructor in the pre-procedure area in the procedure [...] | difficulty. The patient tolerated the procedure well.Findings: | | | A small hiatal hernia was present. The Z-line was | | | irregular and was found 36 cm from the incisors. Biopsies were | | | taken with a cold forceps for histology. Verification of patient | | | identification for the specimen was done by the physician and nurse | | | using the patient's name and date. Estimated blood loss | | | was minimal. A low-grade of narrowing and mild Schatzki | | | ring (acquired) was found in the lower third of the esophagus. | | | A guidewire was placed and the scope was withdrawn. Dilation | | | was performed with a Savary dilator with no resistance at 51 | | | Fr. No other significant abnormalities were identified in a | | | careful examination of the esophagus. Diffuse mildly | | | erythematous mucosa without bleeding was found in the entire | | | examined stomach. Biopsies were taken with a cold forceps for | | | histology. Verification of patient identification for the specimen was | | | done by the physician and nurse using the patient's name and | | | date. Estimated blood loss was minimal. No other | | | significant abnormalities were identified in a careful | | | examination of the stomach. The cardia and gastric fundus were | | | normal on retroflexion. The examined duodenum was | | | normal.Impression: - Small hiatal hernia. - Z-line | | | irregular, 36 cm from the incisors. Biopsied. - Low-grade of | | | narrowing and mild Schatzki ring. Dilated. - Erythematous mucosa | | | in the stomach. Biopsied. - Normal examined | | | duodenum.Recommendation: - Patient has a contact number | | | available for emergencies. The signs and symptoms of potential | | | delayed complications were discussed with the patient. Return | | | to normal activities tomorrow. Written discharge instructions | | | were provided to the patient. - Resume previous diet. - | | | Continue present medications. - Await pathology results. - | | | Repeat upper endoscopy for surveillance based on pathology results. | | | - Return to GI clinic PRN. - The findings and | | | recommendations were discussed with the patient.Loi Hui | | | 11/30/2017 2:07:31 PMThis report has been signed electronically.Number | | | of Addenda: 0Note Initiated On: 11/30/2017 1:43 PMTotal Procedure | | | Duration: 0 hours 10 minutes 16 seconds Scope In: 1:52:58 PMScope Out: | | | 2:03:[address] [facility], [address] [place] [address], | | | [place] [address] | | | patient. Return to normal activities tomorrow. Written discharge | | | instructions were provided to the patient. | | | - Resume previous diet. | | | - Continue present medications. | | | - Await pathology results. | | | - Repeat upper endoscopy for surveillance based on pathology results. | | | - Return to GI clinic PRN. | | | - The findings and recommendations were discussed with the patient. | | |Loi Hui MD | | |11/30/2017 2:07:31 PM | | |This report has been signed electronically. | | |Number of Addenda: 0 | | |Note Initiated On: 11/30/2017 1:43 PM | | |Total Procedure Duration: 0 hours 10 minutes 16 seconds | | |Scope In: 1:52:58 PM | | |Scope Out: 2:03:14 PM | | | [facility], [address] [place] [address], [place], [place] | | | [address] | | + + -+ + +---------+ + + | Performing | Address | City/State/Zipcode | Phone Number | | Organization | | | | + +---------+ + + | [facility] | | | | + +---------+ + + POCT Test, Urine, QUAL (11/30/2017 12:48 PM PST) + + + + + + | Component | Value | Ref Range | Performed | Pathologist | | | | | At | Signature | + + + + + + | | Negative | Negative | | | | Test, | | | | | | Urine, POC | | | | | + + + + + + | Internal QC | Acceptable | Acceptable | | | + + + + + + | Specific | | 1.010, 1.015, | | | | [place], | | 1.020, 1.025 | | | | POC | | | | | + + + + + + | Lot Number | | | | | + + + + + + | Expiration | | | | | | Date | | | | | + + + + + + + + | Specimen | + + | Urine | + + Basic Metabolic Panel (11/30/2017 12:48 PM PST) + + + + + + | Component | Value | Ref Range | Performed | Pathologist | | | | | At | Signature | + + + + + + | Na | 140 | 136 - 149 | [facility] | | | | | mmol/L | [facility] | | | | | | [facility] | | | | | | C[facility] - | | | | | | LABORATORY | | + + + + + + | K | 3.5 | 3.5 - 5.1 | [facility] | | | | | mmol/L | [facility] | | | | | | MEDICAL | | | | | | CENTER - | | | | | | LABORATORY | | + + + + + + | Cl | 103 | 98 - 109 mmol/L | [facility] | | | | | | [facility] | | | | | | [facility] - | | | | | | LABORATORY | | + + + + + + | CO2 | 26 | 24 - 31 mmol/L | [facility] | | | | | | [facility] | | | | | | [facility] | | | | | | C[facility] - | | | | | | LABORATORY | | + + + + + + | Anion Gap | 11 | 3 - 16 mmol/L | [facility] | | | | | | [facility] | | | | | | [facility] | | | | | | CENTER - | | | | | | LABORATORY | | + + + + + + | Glucose | 102 | 70 - 109 mg/dL | [facility] | | | | | | [facility] | | [facility] | | [facility]ICAL | | | | | | CENTER - | | | | | | LABORATORY | | + + + + + + | BUN | 5 (L) | 7 - 18 mg/dL | [facility] | | | | | | [facility] | | | | | | MEDICAL | | | | | | CENTER - | | | | | | LABORATORY | | + + + + + + | Creatinine | 0.69 | 0.60 - 1.30 | [facility] | | | | | mg/dL | [facility] | | | | | | MEDICAL | | | | | | CENTER - | | | | | | LABORATORY | | + + + + + + | eGFR if not | >60Comment: GLOMERULAR | >=60 | [facility] | | | | FILTRATION | mL/min/1.73m2 | [facility] | | | [place] [facility] | RATE,ESTIMATED | | MEDICAL | | | | mL/min/1.77z0Cxlu than | | CENTER - | | [...] + + + + | Calcium | 9.9 | 8.3 - 10.5 | [facility] | | | | | mg/dL | [facility] | | | | | | [facility] | | | | | | CENTER - | | | | | | LABORATORY | | + + + + + + | BUN/Creatin | 7.2 | | [facility] | | | ine [...] ST. | [address] | [place], [place] | [phone] | | [facility] | | [id number] | | | - LABORATORY | | | | + + + + + Surgical Pathology Exam (11/30/2017 12:00 AM PST) + + | Specimen | + + | | + + + + + | Narrative | Performed At | + + + | SPECIMEN(S): A GASTRIC BIOPSY SPECIMEN(S): B GE JUNCTION | [facility] | | SPECIMEN SOURCE: A. GASTRIC BIOPSY B. 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 These findings, together with the gross examination, | | | support the pathologic diagnosis. FINAL PATHOLOGIC DIAGNOSIS: A. | | | Gastric biopsy: - Gastric-type mucosa with focal mild chronic | | | gastritis. - Negative for evidence of Helicobacter organisms on | | | routine HE stained sections. B. 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 - Negative for dysplasia. [facility]:C2NR | | | GROSS DESCRIPTION: Received in two parts. A. Received in | | | formalin labeled "Cherrie Quijano, gastric" are two pink-zamora tissue | | | fragments measuring from 0.45-0.7 cm, submitted, al in (A1). B. | | | Received in formalin labeled "Cherrie Quijano, GEJ" are four pink-zamora | | | and zamora colored tissue fragments measuring from 0.25-0.5 cm, | | | submitted, all in (B1). ka:[facility] PERFORMING LABORATORY: Tissue | | | processing and slide preparation were performed by [employer] | | | [employer], [address], [place] [address] | | | (Sales Operations Assistant: Neno Díaz M.D. CLIA#: [id number]). | | | Professional interpretation was performed by [employer] | | | [facility], [address] | | | [place] [address] (Sales Operations Assistant: Neno Díaz M.D.; CLIA#: | | | [id number]). Diagnostician: Neno Díaz MD Pathologist | | | Electronically Signed 12/02/2017 | | + + + + +---------+ [...] Dyskinesia of esophagus | + + | Dysphagia Dysphagia, unspecified | + + | Globus hystericus Conversion [...] ONCE PRN, Wheezing, | | | Starting 11/30/17 at 1231, For | | | 1 dose, RT will administer., | | | Pre-op | | + +---+ | | | + +---+ + +-------+ +--------+---+---+ | albuterol 2.5 mg/3 mL nebulizer | Given | 11/30/19 | 2.5 mg | | | | solution 2.5 mg 2.5 mg, | | 18 2:18 | | | | | Nebulization, ONCE PRN, Wheezing, | | PM PST | | | | | Starting 11/30/17 at 1411, For | | | | | | | 1 dose, Notify anesthesia if | | | | | | | patient is wheezing and does not | | | | | | | have a history of asthma or COPD | | | | | | | or current smoking., | | | | | | | Recovery/Phase I | | | | | | + +-------+ +--------+---+---+ + +---+ | | | + +---+ | dextrose 50% injection 12.5-25 | | | g 12.5-25 g, Intravenous, EVERY | | | 15 MIN PRN, Low Blood Sugar, Give | | | 12.5g (25 mL) IV if blood | | | glucose 50-69 mg/dL. Give 25g | | | (50 mL) IV if blood glucose < 50, | | | Starting 11/30/17 at 1231, | | | Repeat in 15 min [...] | | blood glucose < 50, Starting Tue | | | 11/30/17 at 1411, Give over 2 min. | | | [...] 25-50 mcg, Intravenous, | | | EVERY 15 MIN PRN, Pain, Give on | | | direction of physician, Starting | | | 11/30/17 at 1231, For 4 doses, | | | Max total dose 100 mcg., Pre-op | | + +---+ | | | + +---+ | fentaNYL (PF) injection 25-50 | | | mcg 25-50 mcg, Intravenous, | | | EVERY 5 MIN PRN, Pain, Starting | | | Wed11/30/17 at 1411, Maximum total | | | dose 250 mcg. PACU IV Narcotic | | | Priority: Only use fentanyl for | | | immediate post-op pain (one dose) | | | or breakthrough pain when any | | | other IV narcotics ordered have | | | been ineffective (if ordered). | | | If both morphine and | | | hydromorphone are ordered, use | | | morphine first, and use | | | hydromorphone if morphine | | | ineffective., Recovery/Phase I | | + +---+ | | | + +---+ | HYDROmorphone (DILAUDID) | | | injection 0.2-0.5 mg 0.2-0.5 mg, | | | Intravenous, EVERY 5 MIN PRN, | | | Pain, Starting Wed11/30/17 at | | | 1411, Maximum total dose 4 mg. | | | PACU IV Narcotic Priority: Only | | | use fentanyl for immediate | | | post-op pain (one dose) or | | | breakthrough pain when any other | | | IV narcotics ordered have been | | | ineffective (if ordered). If | | | both morphine and hydromorphone | | | are ordered, use morphine first, | | | and use hydromorphone if morphine | | | ineffective., Recovery/Phase I | | + +---+ | | | + +---+ + +---------+ +---+---+---+ | lactated ringers (LR) infusion | New Bag | 11/30/19 | | | | | at 100 mL/hr, Intravenous, | | 18 1:00 | | | | | CONTINUOUS, Starting 11/30/17 | | PM PST | | | | | at 1300, Pre-op | | | | | | + +---------+ +---+---+---+ + +---+ | | | + +---+ | lactated ringers (LR) infusion | | | at 10-100 mL/hr, Intravenous, | | | CONTINUOUS, Starting 11/30/17 | | | at 1300, TKO., Pre-op | | + +---+ | | | + +---+ | meperidine (DEMEROL) injection | | | 12.5-25 mg 12.5-25 mg, | | | Intravenous, PRN, Shivering, | | | Starting 11/30/17 at 1411, For | | | 2 doses, May Repeat once in 5 | | | min., Recovery/Phase I | | + +---+ | | | + +---+ | midazolam (VERSED) 1 mg/mL | | | injection 1 mg 1 mg, | | | Intravenous, PRN, Anxiety, May | | | repeat Q 5 minutes prn, Starting | | | 11/30/17 at 1231, For 2 doses, | | | May repeat once in 5min. Hold | | | anxiolytic until after anesthesia | | | and surgical consent is | | | obtained, Pre-op | | + +---+ | | | + +---+ | ondansetron (ZOFRAN) injection | | | 4 mg 4 mg, Intravenous, ONCE | | | PRN, Nausea, Starting 11/30/17 | | | at 1231, For 1 dose, Pre-op | | + +---+ | | | + +---+ | ondansetron (ZOFRAN) injection | | | 4 mg 4 mg, Intravenous, ONCE | | | PRN, Nausea, Starting 11/30/17 | | | at 1411, For 1 dose, | | | Recovery/Phase I | | + +---+ | | | + +---+ documented in this encounter
--- OUTSIDE RECORDS SUMMARY | ~2020-05-16 | XMS | Encounter Summary ---
Demographics + + + | Address | [address] | | | [place] [address] | + + + | Home Phone [...] + + + | Author | [facility] | | | and [place] | + + + | Organization | [facility] | | | [...] Team Providers + +------+ + | Care Core Placer Name | Role | Phone | + +------+ + | No, Physician | PCP | Unavailable | + +------+ + Reason for Visit +--------+ + | Reason | Comments | +--------+ + | Cough | Rm3; with sinus problem x wednesday; | +--------+ + Encounter Details +--------+---------+ + + + | Date | Type | Department | Care Team | Description | +--------+---------+ + + + | 01/29/ | Office | [facility] | Isamar Marley, | Acute maxillary | | 2016 | Visit | [facility] [address] | Need updated | sinusitis, | | | | [place] | address | recurrence not | | | | [address] | | specified (Primary | | | | [phone] | | Dx) | +--------+---------+ + + + Social History [...] + + + | Blood Pressure | 106/70 | 01/30/2016 2:38 PM | | | | | PST | | + + + + + | Pulse | 101 | 01/30/2016 2:38 PM | | | | | PST | | + + + + + | Temperature | 37.6 C (99.7 F) | 01/30/2016 2:38 PM | | | | | PST | | + + + + + | Respiratory Rate | 16 | 01/30/2016 2:38 PM | | | | | PST | | + + + + + | Oxygen Saturation | 96% | 01/30/2016 2:38 PM | | | | | PST | | + + + + + | Inhaled Oxygen | - | - | | | Concentration | | | | + + + + + | Weight | 88.9 kg (196 lb) | 01/30/2016 2:38 PM | | | | | PST | | + + + + + | Height | 162.6 cm (5' 4") | 01/30/2016 2:38 PM | | | | | PST | | + + + + + | Body Mass Index | 33.64 | 01/30/2016 2:38 PM | | | | | PST | | + + + + + documented in this encounter Patient Instructions Patient Instructions Isamar Marley MD - 01/30/2016 3:20 PM PST Self-Care for Sinusitis Sinusitis can often be managed with self-care. Self-care can keep sinuses moist and make yo u feel more comfortable. Remember to follow your doctor's instructions closely, which can ma ke a big difference in getting your sinus problem under control. Drink fluids Drinking extra fluids a glass every hour or two helps thin your mucus, allowing it to drain from your sinuses more easily. A humidifier helps in much the same way. Fluids can also offset the drying effects of certain drugs. Use saltwater rinses Rinses help keep your sinuses and nose moist. Mix a teaspoon of salt in 8 ounces of fresh, warm water. Use a bulb syringe to gently squirt the water into your nose a few times a day. You can also buy ready-made saline nasal sprays. Apply hot or cold packs Applying heat to the area surrounding your sinuses may make you feel more comfortable. Use a hot water bottle or a hand towel dipped in hot water. Some people also find ice packs effe ctive for relieving pain. [id number] [employer]. [address] [place] [address]. All righ ts reserved. This information is not intended as a substitute for professional medical care. Always follow your healthcare professional's instructions. documented in this encounter Progress Notes Isamar Marley MD - 01/30/2016 3:16 PM PSTFormatting of this note might be different fro m the original. Subjective: Chief Complaint: Cough Cherrie is a 55 y.o. female who comes in complaining of possible sinus infection. Cherrie saldana developed an upper respiratory infection 5 days ago, followed with persistent nasal and si nus pain and congestion since, with purulent nasal drainage. Has a mildly productive cough but lungs feel clear with no shortness of breath. No fevers. No other complaints. Has had sinus infections in the past. Face pressure bilt. Cough and chest hurts with coughing. C ough drops. Cherrie does not smoke. Taking sudafed and nyquil. Patient's medications, allergies, past medical, surgical, social and family histories were reviewed and updated as appropriate. When she was young, everything would settle in her chest Objective: BP 106/70 mmHg | Pulse 101 | Temp(Src) 37.6 C (99.7 F) (Temporal) | Resp 16 | Ht 1.626 m (5' 4") | Wt 88.905 kg (196 lb) | BMI 33.63 kg/m2 | SpO2 96% | ? No General Appearance: Alert, cooperative, no distress, appears stated age Head: Normocephalic, without obvious abnormality, with +sinus tenderness to percussion Eyes: PERRL, conjunctiva/corneas clear Ears: Normal TM's and external ear canals Nose: Nares normal, septum midline, mucosa normal with mild congestion Throat: Oropharynx normal Neck: Supple, symmetrical, no adenopathy Lungs: Clear to auscultation bilaterally, respirations unlabored Skin: Dry, normal color Assessment and Plans: Acute sinusitis, will treat with nasal saline rinses and zpak. Return to clinic if symptom s persist, change or worsen over the next week. documented in this en counter Plan of Treatment Not on filedocumented as of this encounter Visit Diagnoses + + | Diagnosis | + + | Acute maxillary sinusitis, recurrence not specified - Primary | + + documented in this encounter
--- OUTSIDE RECORDS SUMMARY | ~2020-05-16 | XMS | Encounter Summary ---
Demographics + + + | Address | [address] | | | [place] [address] | + + + | Home Phone | | + + + | Preferred Language | Unknown | + + + | Marital Status | Single | + + + | [employer] Affiliation | 1013 | + + + | Race | Unknown | + + + | Ethnic Group | Unknown | + + + Author + + + | Author | [facility] | | | and [place] | + + + | Organization | [facility] | | [...] Team Providers + +------+ + | Care Field Project Manager Name | Role | Phone | + +------+ + | James Farmer MD | PCP | | + +------+ + Reason for Visit +--------+--------+ + | Reason | Onset | Comments | | | Date | | +--------+--------+ + | Other | 04/01/ | | | | 2019 | | +--------+--------+ + Encounter Details +--------+ + + + + | Date | Type | Department | Care Team | Description | +--------+ + + + + | 04/01/ | Telephone | [facility] | Nishant Arceo | Other | | 2019 | | GASTROENTEROLOGY | MD [address] | | | | | [address] [place] | [facility] | | | | | [address] [place] | [facility] [place] [address] | | | | | [address] | [phone] | | | | | [phone] | | | +--------+ + + + [...] Notes Telephone Encounter - Kurt Perez - 04/03/2020 1:48 PM PDTPt scheduled on April 16 0 for an office visit with Dr. Arceo. Closing encounter. elephone Encounter - Berna Esqueda RN - 04/01/2020 2:18 PM PDTSet up for follow up in clinic visit with Dr. Arceo 2-4 weeks.Electronically sig hunter by Berna Esqueda RN at 04/01/2020 2:20 PM PDTdocumented in this encounter Plan of Treatment Not on filedocumented as of this encounter Visit Diagnoses Not on filedocumented in this encounter Additional Health Concerns + + + + | Infection | Noted Time | Resolved Time | + + + + | Rule out COVID-19 | 03/31/2020 2:32 PM | 04/01/2020 12:00 PM | | | PDT | PDT | + + + + documented as of this encounter"
--- OUTSIDE RECORDS SUMMARY | ~2020-05-16 | XMS | Encounter Summary ---
Demographics + + + | Address | [address] | | | [place] [address] | + + + | Home Phone | | + + + | Preferred Language | Unknown | + + + | Marital Status | Single | + + + | [employer]Ism Affiliation | 1013 | + + + [...] Team Providers + +------+ + | Care Peripheral Vascular Tech Name | Role | Phone | + +------+ + | James Farmer MD | PCP | | + +------+ + Reason for Visit + + + | Reason | Comments | + + + | Follow-up | 3 month | + + + | Results | EGD done on 11/30/17 | + + + Encounter Details +--------+---------+ + + + | Date | Type | Department | Care Team | Description | +--------+---------+ + + + | 01/03/ | Office | [facility] | James Farmer, | Depression with | | 2018 | Visit | MEDICINE [address] | anxiety (Primary | | | | [address] [place], | [place] | Dx); Hiatal hernia | | | | [place] [address] | [id number] | with GERD; | | | | [phone] | | Gastroesophageal | | | | | | reflux disease, | | | | | | esophagitis presence | | | | | | not specified; | | | | | | Seizure ([facility]); | | | | | | Pharyngoesophageal | | | | | | dysphagia | +--------+---------+ + + + Social History [...] + + + | Blood Pressure | 110/62 | 01/03/2018 9:29 AM | | | | | PST | | + + + + + | Pulse | 96 | 01/03/2018 9:29 AM | | | | | PST | | + + + + + | Temperature | 36.2 C (97.2 F) | 01/03/2018 9:29 AM | | | | | PST | | + + + + + | Respiratory Rate | 16 | 01/03/2018 9:29 AM | | | | | PST | | + + + + + | Oxygen Saturation | 98% | 01/03/2018 9:29 AM | | | | | PST | | + + + + + | Inhaled Oxygen | - | - | | | Concentration | | | | + + + + + | Weight | 79 kg (174 lb 2.6 | 01/03/2018 9:29 AM | | | | oz) | PST | | + + + + + | Height | - | - | | + + + + + | Body Mass Index | 31.85 | 11/30/2017 12:28 PM | | | | | PST | | + + + + + documented in this encounter Progress James Barrera MD - 01/03/2018 9:45 AM PSTFormatting of this note might be different f rom the original. Subjective: Patient ID: Cherrie Quijano is a 57 y.o. female. Chief Complaint Patient presents with Follow-up 3 month Results EGD done on 11/30/17 HPI: She has a history of anxiety and has been taking alprazolam. She has been taking less and less of her alprazolam and she does need a refill now she feels like she is tapering of f of this now She recently has had a esophageal dilation for esophageal stenosis. She was having dysphag ia with food sticking in her lower esophagus she went to the impersonator character and had a di lation done and she is swallowing better now. He says she might need this again in several months. She does have a history of seizure. She was hospitalized for seizureErik reason for this w as found except possibly hyponatremia. She hasn't had any seizure episodes since that time. She would like to have colon cancer screening we talked about getting a DNA test for colon cancer. Past Medical History: Diagnosis Date Depression with anxiety Dysphagia 06/16/2017 GERD (gastroesophageal reflux disease) Seizure (HCC) Wears partial dentures upper Past Surgical History: Procedure Laterality Date UPPER GASTROINTESTINAL ENDOSCOPY N/A 11/30/2017 Procedure: EGD; Surgeon: Loi Hui MD; Location: [facility] Patient Active Problem List Diagnosis Date Noted POA GERD (gastroesophageal reflux disease) 11/30/2017 Unknown Priority: Medium Benzodiazepine dependence 11/25/2017 Unknown Esophageal dysmotility 08/31/2017 Unknown Globus hystericus 08/31/2017 Unknown Thrombocytopenia 07/23/2017 Unknown Severe protein-calorie malnutrition 07/22/2017 Unknown Hyponatremia 07/21/2017 Unknown Seizure 07/21/2017 Unknown Special screening for malignant neoplasms, colon 07/20/2017 Unknown Dysphagia 06/16/2017 Unknown Hiatal hernia with GERD 06/16/2017 Unknown Reflux esophagitis 05/14/2017 Unknown Conversion disorder 05/14/2017 Unknown Depression with anxiety Unknown Obesity, Class I, BMI 30-34.9 Unknown PERIMENOPAUSAL SYNDROME Unknown FH DEPRESSION Unknown FH DIABETES Unknown FH STROKE Unknown Current Outpatient Prescriptions: acetaminophen (TYLENOL) 325 mg tablet, Take 650 mg by mouth every 4 hours as needed fo r Pain., Disp: , Rfl: ALPRAZolam (XANAX) 0.25 mg tablet, Take 0.25 mg by mouth 3 times daily as needed for A nxiety. 1/2 tablet in the morning, 1/2 tablet midday and full tablet at night, Disp: , Rfl: cephalexin (KEFLEX) 500 mg capsule, Take 1 capsule by mouth 3 times daily for 30 days. , Disp: 90 capsule, Rfl: 0 DiphenhydrAMINE HCl, Sleep, (SLEEP AID) 25 MG CAPS, Take 1 tablet by mouth nightly as needed., Disp: , Rfl: fluticasone (FLONASE) 50 mcg/nasal spray, 1 spray by Nasal route 2 times daily., Disp: 16 g, Rfl: 1 isosorbide dinitrate (ISORDIL) 10 mg tablet, TAKE ONE TABLET BY MOUTH THREE TIMES RAVEN Y, Disp: 90 tablet, Rfl: 1 omeprazole (PRILOSEC) 20 mg capsule, Take 1 capsule by mouth 2 times daily (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 30 minutes before breakfast and dinner., Disp: 180 capsule, Rfl: 3 pseudoePHEDrine (SUDAFED) 60 MG tablet, Take 60 mg by mouth every 4 hours as needed fo r Congestion., Disp: , Rfl: Allergies No active allergies Intolerance No active intolerances/contraindications Review of Systems Constitutional: Negative. HENT: Negative. Eyes: Negative. Respiratory: Negative. Cardiovascular: Negative. Gastrointestinal: Negative. Genitourinary: Negative. Musculoskeletal: Negative. Skin: Negative. Neurological: Negative. Endo/Heme/Allergies: Negative. Psychiatric/Behavioral: Negative. Objective: BP 110/62 | Pulse 96 | Temp 36.2 C (97.2 F) (Temporal) | Resp 16 | Wt 79 kg (174 lb 2.6 oz) | SpO2 98% | ? No | BMI 31.85 kg/m Physical Exam General survey shows no acute distress HEENT: The HEENT exam is unremarkable today Neck: No jugular venous distention, no thyroid [...] influences. Assessment/Plan: Cherrie was seen today for follow-up and results. Diagnoses and all orders for this visit: Depression with anxiety Hiatal hernia with GERD Gastroesophageal reflux disease, esophagitis presence not specified Seizure (HCC) Pharyngoesophageal dysphagia 1. She will follow up with her impersonator character for her reflux symptoms. She'll continu e using her omeprazole. 2. At this point she doesn't need refills on her alprazolam her anxiety is under better co ntrol now 3. We will get her information about stool DNA testing for cancer. If her insurance cover s this we will get it done. She is afraid to get a colonoscopy Return in about 3 months (around 04/02/2018).Electronically signed by MD debbie Rolon 01/03/2018 10:07 AM PSTdocumented in this encounter Plan of Treatment Not on filedocumented as of this encounter Visit Diagnoses + + | Diagnosis | + + | Depression with anxiety - Primary Dysthymic disorder | + + | Hiatal hernia with GERD | + + | Gastroesophageal reflux disease, esophagitis presence not specified | + + | Seizure (HCC) Other convulsions | + + | Pharyngoesophageal dysphagia Dysphagia, pharyngoesophageal phase | + + documented in this encounter"
--- OUTSIDE RECORDS SUMMARY | ~2020-05-16 | XMS | Encounter Summary ---
Demographics + + + | Address | [address] | | | [place] [address] | + + + | Home Phone | | + + + | Preferred Language | Unknown | + + + | Marital Status | Single | + + + | [employer]ar[employer] Affiliation | 1013 | + + + [...] Team Providers + +------+ + | Care Supervisor Show Operations Name | Role | Phone | + +------+ + | James Farmer MD | PCP | | + +------+ + Reason for Visit + + + | Reason | Comments | + + + | Dysphagia | | + + + Encounter Details +--------+ + + + + | Date | Type | Department | Care Team | Description | +--------+ + + + + | 08/07/ | Emergency | [facility] | Jamie Banks | Dysphagia, | | 2016 | | [facility] | Aquiles Garica MD | unspecified type | | | | CENTER [address] | [address] | (Primary Dx) | | | | [place] | [place] | | | | | [address] | [address] | | | | | [phone] | | | +--------+ + + + [...] + + + | Blood Pressure | 119/52 | 08/07/2017 7:25 PM | | | | | PDT | | + + + + + | Pulse | 87 | 08/07/2017 7:25 PM | | | | | PDT | | + + + + + | Temperature | 37.4 C (99.4 F) | 08/07/2017 7:25 PM | | | | | PDT | | + + + + + | Respiratory Rate | 16 | 08/07/2017 7:25 PM | | | | | PDT | | + + + + + | Oxygen Saturation | 98% | 08/07/2017 7:25 PM | | | | | PDT | | + + + + + | Inhaled Oxygen | - | - | | | Concentration | | | | + + + + + | Weight | 77.6 kg (171 lb) | 08/07/2017 7:25 PM | | | | | PDT | | + + + + + | Height | 157.5 cm (5' 2") | 08/07/2017 7:25 PM | | | | | PDT | | + + + + + | Body Mass Index | 31.28 | 08/07/2017 7:25 PM | | | | | PDT | | + + + + + documented in this encounter Discharge Instructions Instructions Chacha Perez RN - 08/07/2017Resume ophthalmic as tolerated. Please follow-up your primary care physician. Please follow-up in the GI clinic with Dr. Hui. documented in this encounter Medications at Time [...] documented as of this encounter ED Notes Jamie Banks MD - 08/07/2017 7:57 PM PDTFormatting of this note might be d ifferent from the original. [facility] Ivis Quijano Emergency Department Encounter Note [address] [place] [id number] PCP:James Farmer MD [phone] eMERGENCY dEPARTMENT eNCOUnter CHIEF COMPLAINT Chief Complaint Patient presents with Dysphagia TRIAGE ED Triage Notes, ED Triage Notes Doroteo Chambers RN 08/07/2017 19:24 Pt makes co of not being able to swallow without reflux since the end of March. Pt has been seen for this issue. Pt on pureed dysphagia diet because of HX dysphagia. Pt been taking Yash ax for this issue. Pt makes Co of exacerbation of reflux. HPI Ivis Quijano is a 56 y.o. female who presents with complaint of inability to swallow . She states she's been unable to swallow off and on since March. Patient had an episode of some choking prior to arrival. She is very anxious but she is swallowing water without diff iculty now. She states that she tried to drink some beef stew and then it did not agree wit h her and then she had a choking/episode of emesis. She is here for further evaluation. Sh e's been evaluated by multiple practitioners the past for this problem she is seen in GI as well as ENT. ENT felt that she was having some conversion disorder. Patient does not have any acute upp er laryngeal paralysis. PAST MEDICAL HISTORY Past Medical History: Diagnosis Date Anxiety Depression Dysphagia 04/21/2017 GERD (gastroesophageal reflux disease) SURGICAL HISTORY Past Surgical History: Procedure Laterality Date VEIN SURGERY CURRENT MEDICATIONS Previous Medications ALPRAZOLAM (XANAX) 0.25 MG TABLET Take 0.25 mg by mouth 3 times daily as needed for Anx iety. 1/2 tablet in the morning, 1/2 tablet midday and full tablet at night CHOLECALCIFEROL (VITAMIN D3 PO) CAPS, take 5000 units daily by mouth OMEPRAZOLE (PRILOSEC) 20 MG CAPSULE Take 1 capsule by mouth 2 times daily (before meals ). 30 minutes before breakfast and dinner. ALLERGIES No Known Allergies FAMILY HISTORY Family History Problem Relation Age of Onset Heart disease Paternal Grandmother Heart attack Paternal Grandmother Hypertension Paternal Grandmother Diabetes Paternal Grandfather Depression Paternal Grandfather SOCIAL HISTORY Social History Social History Marital status: Single Spouse name: N/A Number of children: N/A Years of education: N/A Social History Main Topics Smoking status: Former Smoker Types: Cigarettes Smokeless tobacco: Never Used Comment: smoked socially when she drank Alcohol use No Drug use: No Sexual activity: Not Asked Other Topics Concern None Social History Narrative None REVIEW OF SYSTEMS Please see HPI, All systems negative except as marked. Twelve point review of system comp leted my me. PHYSICAL EXAM VITAL SIGNS: Temp: 37.4 C (99.4 F) Pulse: 87 Resp: 16 SpO2: 98 % BP: 119/52 Constitutional: Well developed, Well nourished, Non-toxic appearance. Significant Anxiety. HENT: Normocephalic, Atraumatic, Bilateral external ears normal, Oropharynx moist, No oral exudates, Nose normal. Neck- Normal range of motion, No tenderness, Supple, No stridor. Eyes: PERRL, EOMI, Conjunctiva normal, No discharge. Respiratory: Normal breath sounds, No respiratory distress, No wheezing, No chest tenderne ss. Cardiovascular: Normal heart rate, Normal rhythm, No murmurs, No rubs, No gallops. GI: Bowel sounds normal, Soft, No tenderness, No masses, No pulsatile masses. : defered Musculoskeletal: Intact distal pulses, No edema, No tenderness, No cyanosis, No clubbing. Good range of motion in all major joints. No tenderness to palpation or major deformities no yossi. Neurologic: Alert & oriented x 3, Normal motor function, Normal sensory function, No focal deficits noted, no facial assymetry noted. 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 ED COURSE & MEDICAL DECISION MAKING Pertinent Labs & Imaging studies reviewed. (See chart for details) Nursing notes reviewed. She was given further reassurance she is directed to follow up the GI lab. She is to mino nue a soft diet which she's been adhering to for some time. At this point patient is otherw ise stable. Patient is to follow-up her primary care physician. Follow-up Information Loi Hui MD. Specialty: Gastroenterology Contact information: [place] [id number] Discharge Instructions Resume ophthalmic as tolerated. Please follow-up your primary care physician. Please foll ow-up in the GI clinic with Dr. Hui. FINAL IMPRESSION 1. Dysphagia, unspecified type Chronic Portions of this chart may have been created with ERUCES voice recognition software. Occasi onal wrong-word or sound-alike substitutions may have occurred due to the inherent shannon itations of voice recognition software. Please read the chart carefully and recognize, using context, where these substitutions have occurred Jamie Banks MD 08/07/172000 Bernice Puga RN - 08/07/2017 7:21 PM PDTPt makes co of not being able to swallow without reflu x since the end of March. Pt has been seen for this issue. Pt on pureed dysphagia diet becaus e of HX dysphagia. Pt been taking Xanax for this issue. Pt makes Co of exacerbation of reflu x. documented in this encounter Plan of Treatment + +------+--------+ + + | Name | Type | Priori | Associated Diagnoses | Date/Time | | | | ty | | | + +------+--------+ + + | ED INFORMATION | [facility] | Routin | | 08/07/2017 7:07 PM | | EXCHANGE | | e | | PDT | + +------+--------+ + + documented as of this encounter Procedures + +--------+ + + + | Procedure Name | Priori | Date/Time | Associated Diagnosis | Comments | | | ty | | | | + +--------+ + + + | ED INFORMATION | Routin | 08/07/2017 | | | | EXCHANGE | e | 7:07 PM | | | | | | PDT | | | + +--------+ + + + +---+--------+ | | | | | Proced | | | ure | | | Note - | | | Kamila, | | | Lab In | | | | | | Hlseve | | | n - | | | | | | 2016 | | | 7:08 | | | PM PDT | | | | | | Format | | | ting | | | of | | | this | | | note | | | might | | | be | | | differ | | | ent | | | from | | | the | | | origin | | | al.KAMILA | | | E?NOTI | | | FICATI | | | ON?09/ | | | [birth year]/201 | | | 7 | | | 19:03? | | | THOMPS | | | ON, | | | IVIS | | | D?MRN: | | | | | | [id number] | | | [id number] | | | his | | | patien | | | [...] | | | https: | | | //secu | | | re.kamila | | | ecarep | | | ele.co | | | m/neema | | | ent/2b | | | [id number] | | | -200f- | | | 4815-9 | | | 9a5-32 | | | eceaeb | | | 2cbb | | | ED | | | Care | | | Guidel | | | inesTh | | | ere | | | are | | | curren | | | tly no | | | ED | | | Care | | | Guidel | | | ania | | | in | | | [facility] | | | for | | | this | | | patien | | | t. | | | Please | | | check | | | your | | | facili | | | ty's | | | medica | | | l | | | record | | | s | | | system | | | .Recen | | | t | | | Emerge | | | ncy | | | Depart | | | ment | | | Visit | | | Summar | | | yAdmit | | | Date | | | Facili | | | ty | | | City | | | State | | | Type | | | Major | | | Type | | | Diagno | | | ses or | | | Chief | | | | | | Compla | | | int | | | Sep | | | 16, | | | 2017 | | | Provid | | | ence | | | [facility] [place] | | | [place] | | | Emerge | | | ncy | | | Emerge | | | ncy | | | | | | [place] | | | wing | | | Diffic | | | ulty | | | Aug | | | 30, | | | 2017 | | | Provid | | | ence | | | [facility] | [facility] | [place] | | | [place] | | | Emerge | | | ncy | | | Emerge | | | ncy | | | | | | Seizur | | | e | | | (Adult | | | - New | | | | | | Onset) | | | | | | Hypo-o | | | smolal | | | ity | | | and | | | hypona | | | tremia | | | | | | Hypoma | | | gnesem | | | ia | | | Epilep | | | sy, | | | unspec | | | ified, | | | not | | | intrac | | | table, | | | with | | | status | | | | | | epilep | | | ticus | | | Harlan | | | 17, | | | 2017 | | | [facility] | | | [place] | | | Urgent | | | Care | | | [place] | | | [place] | | | Urgent | | | Care | | | | | | Outpat | | | ient | | | | | | Anxiet | | | y | | | disord | | | er, | | | unspec | | | ified | | | | | | Gastro | | | -esoph | | | ageal | | | reflux | | | | | | diseas | | | e | | | withou | | | t | | | esopha | | | gitis | | | | | | Dyskin | | | esia | | | of | | | esopha | | | [place] | | | | | | Diaphr | | | agmati | | | c | | | hernia | | | | | | withou | | | t | | | obstru | | | ction | | | or | | | gangre | | | ne | | | Dyspha | | | ariel, | | | oropha | | | ryngea | | | l | | | phase | | | E.D. | | | Visit | | | [...] | | | Center | | | 2 0 | | | Total | | | 2 0 | | | Note: | | [...] | | | Summar | | | yAdmit | | | Date | | | Facili | | | ty | | | City | | | State | | | Type | | | Major | | | Type | | | Diagno | | | ses or | | | Chief | | | | | | Compla | | | int | | | Aug | | | 30, | | | 2017 | | | Provid | | | ence | | | [facility] [place] | | [place] | | | Genera | | | lMedic | | | ine | | | Inpati | | | ent | | | | | | Seizur | | | e | | | Hypona | | | tremia | | | | | | Dyspha | | | ariel, | | | unspec | | | ified | | | | | | Metabo | | | lic | | | enceph | | | alopat | | | hy | | | System | | | ic | | | inflam | | | matory | | | | | | respon | | | se | | | syndro | | | me | | | (SIRS) | | | of | | | non-in | | | fectio | | | us | | | origin | | | | | | withou | | | t | | | acute | | | organ | | | dysfun | | | ction | | | | | | Thromb | | | ocytop | | | enia, | | | unspec | | | ified | | | | | | Unspec | | | ified | | | protei | | | n-vilma | | | venu | | | malnut | | | rition | | | | | | Anemia | | | , | | | unspec | | | ified | | | | | | Hypo-o | | | smolal | | | ity | | | and | | | hypona | | | tremia | | | | | | Unspec | | | ified | | | convul | | | sions | | | | | | Washin | | | gton | | | PDMP | | | Report | | | Rx | | | Detail | | | s (6 | | | Mo.)Fi | | | ll | | | Date | | | Drug | | | Descri | | | ption | | | Qty. | | | Prescr | | | iber | | | CS MED | | | | | | 2017-0 | | | 7-20 | | | ALPRAZ | | | OLAM | | | 0.25 | | | MG | | | TABLET | | | 90 | | | REGINALD | | | FOX | | | 4 0 | | | 2017-0 | | | 6-21 | | | ALPRAZ | | | OLAM | | | 0.25 | | | MG | | | TABLET | | | 60 | | | REGINALD | | | FOX | | | 4 0 Rx | | | | | | Summar | | | y (12 | | | Mo.)Me | | | tric | | | Count | | | CS | | | II-V | | | Rx 3 | | | CS-II | | | Rx 1 | | | Quanti | | | ty | | | Dispen | | | sed | | | 270 | | | Unique | | | | | | Prescr | | | ibers | | | 2 | | | Unique | | | | | | Pharma | | | cies 1 | | | | | | Benzos | | | 2 | | | Opioid | | | s 0 | | | Long | | | Acting | | | | | | Opioid | | | s 0 | | | Care | | | Provid | | | ersEDI | | | E has | | | no | | | care | | | provid | | | ers on | | | | | | record | | | at | | | this | | | time. | | | Criter | | | ia met | | | | | | PDMPKn | | | own | | | Aliase | | | sNo | | | known | | | aliase | | | s. The | | | above | | | | | | inform | | | ation | | | is | | | provid | | | ed for | | | the | | | sole | | | purpos | | | e of | | | patien | | | t | | | treatm | | | ent. | | | Use of | | | this | | | inform | | | ation | | | beyond | | | the | | | terms | | | of | | | Data | | | Sharin | | | g | | | Memora | | | ndum | | | of | | | Unders | | | tandin | | | g and | | | Licens | | | e | | | Agreem | | | ent is | | | | | | prohib | | | ited. | | | In | | | certai | | | n | | | cases | | | not | | | all | | | visits | | | may | | | be | | | repres | | | ented. | | | | | | Consul | | | t the | | | aforem | | | ention | | | ed | | | facili | | | ties | | | for | | | additi | | | onal | | | inform | | | ation. | | | ? | | | 2017 | | | Collec | | | tive | | | Medica | | | l | | | [employer] | | | logies | | | , Inc[employer] | | | - | | | [place] | | | [place] | | | [place], | | | [place] - | | | info@c | | | ollect | | | ivemed | | | icalte | | | ch.[email or web address] | | | | +---+--------+ documented in this encounter Visit Diagnoses + + | Diagnosis | + + | Dysphagia, unspecified type - Primary | + + documented in this encounter
--- OUTSIDE RECORDS SUMMARY | ~2020-05-16 | XMS | Encounter Summary ---
Demographics + + + | Address | [address] | | | [place] [address] | + + + | Home Phone [...] Providers + +------+ + | Care Electric Meter Installer Name | Role | Phone | [...] + + | Closed | Specialty | Chiropractic | Diagnoses | Darian, | [facility] | | | Services | Medicine | Acute | James Dennis MD | [place] [address] | | | Required | | midline low | [address] | [place] [address] | | | | | back pain | [address] | [place] | | | | | without | [place], [place] | [facility], [place] | | | | | sciatica | [address] | [address] | | | | | | Phone: | Phone: | | | | | | [phone] | [phone] | | | | | | Fax: | Fax: | | | | | | [phone] | [phone] | +--------+ + + + + + + + | Scheduling Instructions | + + | Sent to [facility] | + + Evaluate & Treat (Routine) +--------+ [...] | | Services | Therapy / | Weakness of | James Dennis MD | Fan | | | Required | Rehabilitatio | both lower | [address] | Therapy [address] | | | | n | extremities | [address] | [address] | | | | | Procedures | [place] | [place] | | | | | 09/20 | [address] | [place] [address] | | | | | PENDING new | Phone: | Phone: | | | | | DX see | [phone] | [phone] | | | | | today notes | Fax: | Fax: | | | | | | [phone] | [phone] | +--------+ + + + + + Reason for Visit + + + | Reason | Comments | + + + | TCM - Hosp FU | Discharged from [facility] to home on 09/07/19, Discharge MD: Demetri | | | Jake Apple, Discharge Dx: Dysphagia, GERD | + + + Encounter Details +--------+---------+ + + + | Date | Type | Department | Care Team | Description | +--------+---------+ + + + | 09/11/ | Office | [facility] | James Farmer, | Esophageal | | 2019 | Visit | MEDICINE [address] | MD [address] | dysmotility (Primary | | | | [address]VE [place], | [place], [place] | Dx); | | | | [place] [address] | [address] | Gastroesophageal | | | | [phone] | | reflux disease, | | | | | | esophagitis presence | | | | | | not specified; | | | | | | Weakness of both | | | | | | lower extremities; | | | | | | Acute midline low | | | | | | back pain without | | | | | | sciatica; Dysphagia, | | | | | | unspecified type | +--------+---------+ + + + Social History [...] + + + | Blood Pressure | 112/62 | 09/11/2019 12:58 PM | | | | | PDT | | + + + + + | Pulse | 90 | 09/11/2019 12:58 PM | | | | | PDT | | + + + + + | Temperature | 36.1 C (97 F) | 09/11/2019 12:58 PM | | | | | PDT | | + + + + + | Respiratory Rate | 18 | 09/11/2019 12:58 PM | | | | | PDT | | + + + + + | Oxygen Saturation | 98% | 09/11/2019 12:58 PM | | | | | PDT | | + + + + + | Inhaled Oxygen | - | - | | | Concentration | | | | + + + + + | Weight | 81.2 kg (179 lb 0.2 | 09/11/2019 12:58 PM | | | | oz) | PDT | | + + + + + | Height | - | - | | + + + + + | Body Mass Index | 31.71 | 09/05/2019 8:02 PM | | | | | PDT | | + + + + + documented in this encounter Progress Notes James Farmer MD - 09/11/2019 1:00 PM PDTFormatting of this note might be different f rom the original. Subjective: Patient ID: Cherrie Quijano is a 58 y.o. female. Chief Complaint Patient presents with [facility] - Hosp FU Discharged from [facility] to home on 09/07/19, Discharge MD: Demetri Apple, Discharge Dx: Dysphagia, GERD HPI: She was recently having more trouble swallowing and could not hold down any food or fl uids. When ever she swallowed she would vomit. She went to the ER and was admitted due to de hydration. She had an upper endoscopy which showed Mares's esophagus. She was referred for a video swallow. She has been having weakness in her legs. We reviewed the x-rays and labs from her hospitalization. She has been having low back pain since she got out of the hospital. She was having dehydration which caused her to go to the hospital she was having recurrent vomiting. She is supposed to be getting a follow-up barium swallow. We reconciled her medications. She has a follow-up with Dr. Gómez the GI specialist She does not need any home care she is ambulatory and she is eating some now She had a biopsy done while she was in the hospital of her esophagus this showed Mares's esophagus. She previously was taking isosorbide for her swallowing difficulty I have encouraged her to continue with this We have also encouraged her to continue her Protonix. She was alone today Past Medical History: Diagnosis Date Depression with anxiety Dysphagia 06/16/2017 GERD (gastroesophageal reflux disease) Seizure (HCC) Wears partial dentures upper Past Surgical History: Procedure Laterality Date UPPER GASTROINTESTINAL ENDOSCOPY N/A 11/30/2017 Procedure: EGD; Surgeon: Loi Hui MD; Location: [facility] UPPER GASTROINTESTINAL ENDOSCOPY N/A 04/05/2019 Procedure: EGD; Surgeon: Loi Hui MD; [facility] UPPER GASTROINTESTINAL ENDOSCOPY N/A 09/06/2019 Procedure: EGD; Surgeon: Rodriguez Gómez MD; Location[facility] VEIN SURGERY Patient Active Problem List Diagnosis Date Noted POA GERD (gastroesophageal reflux disease) 11/30/2017 Unknown Priority: Medium Chronic bilateral low back pain without sciatica 06/02/2019 Unknown Impaired functional mobility, balance, gait, and endurance 06/02/2019 Unknown Gait instability 06/02/2019 Unknown Pharyngoesophageal dysphagia 04/04/2019 Unknown Benzodiazepine dependence 11/25/2017 Unknown Esophageal dysmotility 08/31/2017 [...] DIABETES Unknown FH STROKE Unknown Current Outpatient Medications: acetaminophen (TYLENOL) 325 mg tablet, Take 650 mg by mouth every 4 hours as needed fo r Pain., Disp: , Rfl: ascorbic acid (VITAMIN C) 500 mg chewable tablet, Take 500 mg by mouth Daily., Disp: , Rfl: bismuth subsalicylate (PEPTO BISMOL) 262 mg chewable tablet, Take 524 mg by mouth Rob y as needed., Disp: , Rfl: Black Cohosh 540 MG CAPS, Take 1 capsule by mouth Daily., Disp: , Rfl: Cyanocobalamin (B-12 PO), Take 1 tablet by mouth Daily., Disp: , Rfl: ECHINACEA PO, Take 1 capsule by mouth Daily., Disp: , Rfl: Ginkgo Biloba (GINKOBA PO), Take 1 capsule by mouth Daily., Disp: , Rfl: isosorbide dinitrate (ISORDIL) 10 mg tablet, TAKE 1 TABLET BY MOUTH 3 TIMES DAILY, Dis p: 90 tablet, Rfl: 11 Multiple Vitamin (MULTI-VITAMIN PO), Take 1 tablet by mouth Daily., Disp: , Rfl: pantoprazole (PROTONIX) 40 mg tablet, Take 1 tablet by mouth every morning (before melo akfast)., Disp: 30 tablet, Rfl: 4 UNABLE TO FIND, Take 1-2 capsules by mouth Daily. Focus Factor, Disp: , Rfl: Allergies No active allergies Intolerance No active intolerances/contraindications Review of Systems Constitutional: Negative. HENT: Negative. Eyes: Negative. Respiratory: Negative. Cardiovascular: Negative. Gastrointestinal: Positive for abdominal pain and vomiting. Genitourinary: Negative. Musculoskeletal: Positive for back pain. Skin: Negative. Neurological: Negative. Endo/Heme/Allergies: Negative. Psychiatric/Behavioral: Negative. Objective: BP 112/62 | Pulse 90 | Temp 36.1 C (97 F) (Temporal) | Resp 18 | Wt 81.2 kg (179 lb 0.2 oz) | LMP (LMP Unknown) | SpO2 98% | ? No | BMI 31.71 kg/m Physical Exam General survey shows no [...] influences. Assessment/Plan: Cherrie was seen today for [facility] - hosp fu. Diagnoses and all orders for this visit: Esophageal dysmotility Gastroesophageal reflux disease, esophagitis presence not specified Weakness of both lower extremities - * [facility] Med Physical Therapy- AMB Referral Acute midline low back pain without sciatica - Chiropractic, External - AMB Referral Dysphagia, unspecified type Other orders - isosorbide dinitrate (ISORDIL) 10 mg tablet; TAKE 1 TABLET BY MOUTH 3 TIMES DAILY 1. She will follow-up with her loom setter fourdrinier regarding her Mares's esophagus and es ophageal dysmotility 2. She requests referral to chiropractory which we will do 3. We also will have her do physical therapy due to lower leg weakness She has been deconditioned since she was in the hospital. No follow-ups on file. documented in this encounter Plan of Treatment + + +--------+ + + | Name | Type | Priori | Associated Diagnoses | Order Schedule | | | | ty | | | + + +--------+ + + | * [facility] [place] | Outpatient | Routin | Weakness of both | Ordered: 09/11/2019 | | [facility] | Referral | e | lower extremities | | | Physical Therapy- | | | | | | AMB Referral | | | | | + + +--------+ + + | Chiropractic, | Outpatient | Routin | Acute midline low | Ordered: 09/11/2019 | | External - AMB | Referral | e | back pain without | | | Referral | | | sciatica | | + + +--------+ + + documented as of this encounter Visit Diagnoses + + | Diagnosis | + + | Esophageal dysmotility - Primary Dyskinesia of esophagus | + + | Gastroesophageal reflux disease, esophagitis presence not specified | + + | Weakness of both lower extremities | + + | Acute midline low back pain without sciatica | + + | Dysphagia, unspecified type | + + documented in this encounter"
--- OUTSIDE RECORDS SUMMARY | ~2020-05-16 | XMS | Encounter Summary ---
Demographics + + + | Address | [address] | | | [place] [address] | + + + | Home Phone [...] + + + | Author | [facility] | | | and [place] | + + + | Organization | [facility] | | | [...] Team Providers + +------+ + | Care Sales Account Specialist Name | Role | Phone | + +------+ + | James Farmer MD | PCP | | + +------+ + Reason for Visit +--------+--------+ + | Reason | Onset | Comments | | | Date | | +--------+--------+ + | EGD | 04/04/ | | | | 2019 | | +--------+--------+ + Encounter Details +--------+ + + + + | Date | Type | Department | Care Team | Description | +--------+ + + + + | 04/04/ | Telephone | [facility] | Loi Hui MD | EGD | | 2018 | | GASTROENTEROLOGY | [address] | | | | | [address] [facility] | [place], [place] | | | | | [address] [place], [place] | [address] | | | | | [address] | [phone] | | | | | [phone] | | | +--------+ + + + [...] Telephone Encounter - Zarina Ramon RN - 04/04/2019 3:44 PM PDTReviewed instructions wi th patient and she verbalized understanding for EGD tomorrow at 1130. elephone Encounter - Bryanna Escobar - 04/04 2:20 PM PDTPatient called to speak with Dr Ez MORA, Zarina, regarding her upcoming p rocedure on April 05. Please advise and call her back at [phone]. documented in this encounter Plan of Treatment Not on filedocumented as of this encounter Visit Diagnoses Not on filedocumented in this encounter"
--- OUTSIDE RECORDS SUMMARY | ~2020-05-16 | XMS | Encounter Summary ---
Demographics + + + | Address | [address] | | | [place] [address] | + + + | Home Phone | | + + + | Preferred Language | Unknown | + + + | Marital Status | Single | + + + | Yazidism Affiliation | 1013 | + + + [...] Team Providers + +------+ + | Care Plastics Tooling Engineer Name | Role | Phone | + +------+ + | James Farmer MD | PCP | | + +------+ + Reason for Visit + +--------+ + | Reason | Onset | Comments | | | Date | | + +--------+ + | Referral | 05/06/ | | | | 2019 | | + +--------+ + Encounter Details +--------+ + + + + | Date | Type | Department | Care Team | Description | +--------+ + + + + | 05/06/ | Telephone | [facility] | James Farmer, | Referral | 2019 | | MEDICINE [address] | | | | | [place], | [place] | | | | | [place] [address] | [address] | | | | | [phone] | | | +--------+ + + + [...] this encounter Miscellaneous Notes Telephone Encounter - Latanya Nolan - 05/06/2020 10:41 AM Sai from [facility] Gastrointestinal & minimally Invasive Surgery called to request a General Surgery referr al with authorization. Patient has an appointment with Dr. Savannah Morales on 05/07/20 for DX K 22.4. Please advise, Thank you! Previous referral entered was for Gastroenterology this one is for General Surgery.Pratima mantilla signed by Latanya Nolan at 05/06/2020 10:45 AM PDTdocumented in this encounter Plan of Treatment Not on filedocumented as of this encounter Visit Diagnoses Not on filedocumented in this encounter"
--- OUTSIDE RECORDS SUMMARY | ~2020-05-16 | XMS | Encounter Summary ---
Demographics + + + | Address | [address] | | | [place] [address] | + + + | Home Phone [...] Providers + +------+ + | Care Metal Coater Operator Name | Role | Phone | + +------+ + | James Farmer MD | PCP | | + +------+ + Reason for Visit + +--------+ + | Reason | Onset | Comments | | | Date | | + +--------+ + | Referral | 01/11/ | | | | 2017 | | + +--------+ + Encounter Details +--------+ + + + + | Date | Type | Department | Care Team | Description | +--------+ + + + + | 01/11/ | Telephone | [facility] | James Farmer, | Referral | | 2017 | | MEDICINE [address] | | | | | [place], | [place] | | | | | [place] [address] | [address] | | | | | [phone] | | | +--------+ + + + [...] Telephone Encounter - Ashlie Blevins LPN - 01/11/2018 3:48 PM PSTReceived notice from re ferral and auth dept that the request for the cologuard was not a covered benefit for [facility] insurance. Cologuards are not a covered benefit [facility]. Please place referral for routine colonoscopy do cumented in this encounter Plan of Treatment Not on filedocumented as of this encounter Visit Diagnoses Not on filedocumented in this encounter"
--- OUTSIDE RECORDS SUMMARY | ~2020-05-16 | XMS | Encounter Summary ---
Demographics + + + | Address | [address] | | | [place] [address] | + + + | Home Phone | | + + + | Preferred Language | Unknown | + + + | Marital Status | Single | + + + | Anabaptist Affiliation | 1013 | + + + | Race | Unknown | + + + | Ethnic Group | Unknown | + + + Author + + + | Author | [facility] | | | and [place] | + + + | Organization | [facility] | | | [...] Team Providers + +------+ + | Care Food And Drug Inspector Name | Role | Phone | [...] + + | Authorized | Specialty | Neurology | Diagnoses | [place], | [place], | | | Services | | Gait | James Dennis MD | MD Wilian | | | Required | | disturbance | [address] | [address] | | | | | | [address] | [address] [facility] | | | | | | [facility] [place] | D | | | | | | [address] | [place], [place] | | | | | | Phone: | [address] | | | | | | [phone] | Phone: | | | | | | Fax: | [phone] | | | | | | [phone] | Fax: | | | | | | | [phone] | + + + + + + + + + | Scheduling Instructions | + + | Gait disturbance | + + Evaluate & Treat (Routine) + + + + + + + | Status | Reason | Specialty | Diagnoses / | Referred By | Referred To | | | | | Procedures | Contact | Contact | + + + + + + + | Authorized | Specialty | Rehabilitatio | Diagnoses | [facility], | [facility] | | | Services | n | | James Dennis MD | [place] | | | Required | | Oropharyngea | [address] | Therapy [address] | | | | | [address] dysphagia | [address] | | | | | Procedures | [facility], [place] | [place], | | | | | [birth year] | [address] | [place] [address] | | | | | PENDING [place]A | Phone: | Phone: | | | | | | [phone] | [phone] | | | | | | Fax: | Fax: | | | | | | [phone] | [phone] | + + + + + + + + + | Scheduling Instructions | + + | Swallowing difficulty | + + Reason for Visit + + + | Reason | Comments | + + + | Follow-up | | + + + | Medication | | | Management | | + + + Encounter Details +--------+---------+ + + + | Date | Type | Department | Care Team | Description | +--------+---------+ + + + | 04/19/ | Office | [facility] | James Farmer, | Oropharyngeal | | 2019 | Visit | MEDICINE [address] | [address] | dysphagia (Primary | | | | [place], | [place] | Dx); Gait | | | | [place] [address] | [address] | disturbance; | | | | [phone] | | Esophageal | | | | | | dysmotility; | | | | | | Conversion disorder | +--------+---------+ + + + Social History [...] + + + | Blood Pressure | 124/80 | 04/19/2020 3:21 PM | | | | | PDT | | + + + + + | Pulse | 100 | 04/19/2020 3:21 PM | | | | | PDT | | + + + + + | Temperature | 36.2 C (97.1 F) | 04/19/2020 3:21 PM | | | | | PDT | | + + + + + | Respiratory Rate | 18 | 04/19/2020 3:21 PM | | | | | PDT | | + + + + + | Oxygen Saturation | 97% | 04/19/2020 3:21 PM | | | | | PDT | | + + + + + | Inhaled Oxygen | - | - | | | Concentration | | | | + + + + + | Weight | 67.9 kg (149 lb 11.1 | 04/19/2020 3:21 PM | | | | oz) | PDT | | + + + + + | Height | - | - | | + + + + + | Body Mass Index | 25.69 | 04/11/2020 7:18 PM | | | | | PDT | | + + + + + documented in this encounter Progress Notes James Farmer MD - 04/19/2020 3:15 PM PDTFormatting of this note might be different f rom the original. Subjective: Patient ID: Cherrie Quijano is a 59 y.o. female. Chief Complaint Patient presents with Follow-up Medication Management HPI: 59-year-old female who is here to follow-up she has esophageal dysmotility. She has t rouble swallowing she has some anxiety related to swallowing now because of this episodes of pain in her esophagus and episodes of vomiting. She has seen the automotive quality manager in the past has had some dilation she is also had some Botox injections in her lower esophageal sp hincter. She still is having a lot of anxiety related to swallowing. We tried her on dilti azem according to up-to-date's recommendation and she did not find this was particularly hel pful and we are going to have her stop this She has been sleeping poorly we are going to have her try trazodone at night there is some evidence that trazodone does decreased lower esophageal sphincter pressure and she may have some improvement in her swallowing if she takes this medicine but she definitely will have s ome improvement in her sleep and she is anxious She also has been having more trouble with her walking. She does have a sister who has Par kinson's disease. 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 09/06/2019 new diagnosis so repeat egd in 1 year 08/2020 Depression with anxiety Dysphagia 06/16/2017 GERD (gastroesophageal reflux disease) Seizure (HCC) Tertiary contraction of esophagus Wears partial dentures upper Past Surgical History: Procedure Laterality Date ESOPHAGEAL DILATATION GASTRIC MANOMETRY N/A 01/31/2020 Procedure: MANOMETRY ESOPHAGEAL; Surgeon: Nishant Arceo MD; Location: [facility] GI MANOMETRY 02/05/2020 UPPER GASTROINTESTINAL ENDOSCOPY N/A 11/30/2017 Procedure: EGD; Surgeon: Loi Hui MD; Location: [facility] UPPER GASTROINTESTINAL ENDOSCOPY N/A 04/05/2019 Procedure: EGD; Surgeon: Loi Hui MD; Location: [facility] UPPER GASTROINTESTINAL ENDOSCOPY N/A 09/06/2019 Procedure: EGD; Surgeon: Rodriguez Gómez MD; Location: [facility] UPPER GASTROINTESTINAL ENDOSCOPY N/A 02/20/2020 Procedure: EGD; Surgeon: Nishant Arceo MD; Location: [facility] UPPER GASTROINTESTINAL ENDOSCOPY N/A 04/01/2020 Procedure: EGD W/ DILATATION- Botox; Surgeon: Nishant Arceo MD; Location: [facility] VEIN SURGERY Patient Active Problem List Diagnosis Date Noted POA GERD (gastroesophageal reflux disease) 11/30/2017 Unknown Priority: Medium Esophagogastric junction outflow obstruction 03/25/2020 Unknown Esophagitis, Austin grade D 03/25/2020 Unknown Candidiasis, esophageal 03/19/2020 Unknown Esophageal dysphagia 01/25/2020 Unknown 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 Unknown Gait disturbance 10/26/2019 Unknown Reduced mobility 10/09/2019 Unknown Weakness of both lower extremities 10/09/2019 Unknown Chronic bilateral low back pain without sciatica 06/02/2019 Unknown Impaired functional mobility, balance, gait, and endurance 06/02/2019 Unknown Unsteady gait 06/02/2019 Unknown Pharyngoesophageal dysphagia 04/04/2019 Unknown Hematuria Unknown Benzodiazepine dependence 11/25/2017 Unknown Esophageal dysmotility [...] Unknown FH STROKE Unknown Current Outpatient Medications: ascorbic acid (VITAMIN C) 500 mg chewable tablet, Take 500 mg by mouth Daily., Disp: , Rfl: benzonatate (TESSALON) 200 MG capsule, Take 1 capsule by mouth 3 times daily as needed for Cough., Disp: 30 capsule, Rfl: 0 bismuth subsalicylate (PEPTO BISMOL) 262 mg chewable tablet, Take 524 mg by mouth Rob y as needed., Disp: , Rfl: busPIRone (BUSPAR) 5 mg tablet, TAKE 1 TABLET BY MOUTH 3 TIMES DAILY NEEDED FOR ANX IETY, Disp: 30 tablet, Rfl: 2 Cyanocobalamin (B-12 PO), Take 1 tablet by mouth Daily., Disp: , Rfl: dilTIAZem (CARDIZEM) 60 mg tablet, TAKE ONE TABLET BY MOUTH FOUR TIMES DAILY , Disp: 1 20 tablet, Rfl: 5 diphenhydrAMINE-visc kqhbuyfmv-blwbrjcz-ibhddcxyc-simethicone (MIRACLE MOUTHWASH) susp ension, Take 5 mLs by mouth every 6 hours as needed for Other (swish and swallow). (RECIPE = 1:1:1 mixture of Maalox, diphenhydrAMINE, viscous lidocaine), Disp: 240 mL, Rfl: 2 EPINEPHrine auto-injector 0.3 mg/0.3 mL injection, Inject 0.3 mLs into the muscle as n eeded for Anaphylaxis., Disp: 1 each, Rfl: 0 ibuprofen (ADVIL, MOTRIN) 200 mg tablet, Take 400 mg by mouth every 6 hours as needed for Pain., Disp: , Rfl: imipramine (TOFRANIL) 25 mg tablet, Take 1 tablet by mouth nightly., Disp: 30 tablet, Rfl: 0 Lidocaine HCl (MAGIC + NYSTATIN MOUTHWASH), Take 10 mLs by mouth every 4 hours., Disp: 240 mL, Rfl: 0 LORazepam (ATIVAN) 1 mg tablet, Take 1 tablet by mouth Daily as needed for Anxiety., D isp: 10 tablet, Rfl: 0 Multiple Vitamin (MULTI-VITAMIN PO), Take 1 tablet by mouth Daily., Disp: , Rfl: non-formulary medication, Take 2 tablets by mouth Daily. Super Energy supplement, Disp : , Rfl: pantoprazole (PROTONIX) 40 mg tablet, Take 1 tablet by mouth every morning (before melo akfast)., Disp: 30 tablet, Rfl: 8 traZODone (DESYREL) 50 mg tablet, Take 1 tablet by mouth nightly as needed for Insomni a., Disp: 30 tablet, Rfl: 2 UNABLE TO FIND, Take 1-2 capsules by mouth Daily. Focus Factor, Disp: , Rfl: Allergies Allergen Reactions Imipramine Hallucination Levsin (Hyoscyamine) Swelling Intolerance No active intolerances/contraindications Review of Systems Constitutional: Positive for malaise/fatigue. HENT: Negative. Eyes: Negative. Cardiovascular: Positive for chest pain. Gastrointestinal: Positive for nausea. Genitourinary: Negative. Musculoskeletal: Negative. Skin: Negative. Neurological: Negative. Endo/Heme/Allergies: Negative. Psychiatric/Behavioral: The patient is nervous/anxious and has insomnia. Objective: BP 124/80 | Pulse 100 | Temp 36.2 C (97.1 F) (Temporal) | Resp 18 | Wt 67.9 kg (149 lb 11.1 oz) | LMP (LMP Unknown) | SpO2 97% | No | BMI 25.69 kg/m Physical Exam General survey shows no [...] arthritis i s seen in any joints. Neurologic: She does have some difficulty walking. The specific gait disturbance is not fu rther characterized today Skin: No rashes or skin lesions seen. Psychiatric: She is anxious Assessment/Plan: Cherrie was seen today for follow-up and medication management. Diagnoses and all orders for this visit: Oropharyngeal dysphagia - * [facility] - AMB Referral Gait disturbance - [facility] - AMB Referral Esophageal dysmotility Conversion disorder Other orders - traZODone (DESYREL) 50 mg tablet; Take 1 tablet by mouth nightly as needed for Insomn ia. 1.)-Try trazodone at night for insomnia and hopefully that will help with her esophageal sp hincter pressure 2. We will refer her to a neurologist in [facility] for evaluation of her gait distur bance 3. We will also have a speech therapist to work with her which may help some of her conver rohit disorder and her swallowing fears. 9 4. She will stop her diltiazem No follow-ups on file. documented in this encounter Plan of Treatment + + +--------+ + + | Name | Type | Priori | Associated Diagnoses | Order Schedule | | | | ty | | | + + +--------+ + + | * [facility] | Outpatient | Routin | Oropharyngeal | Ordered: 04/19/2020 | | [facility] | Referral | e | dysphagia | | | Therapy - AMB | | | | | | Referral | | | | | + + +--------+ + + | [facility] | Outpatient | Routin | Gait disturbance | Ordered: 04/19/2020 | | - AMB Referral | Referral | e | | | + + +--------+ + + documented as of this encounter Visit Diagnoses + + | Diagnosis | + + | Oropharyngeal dysphagia - Primary Dysphagia, oropharyngeal phase | + + | Gait disturbance Abnormality of gait | + + | Esophageal dysmotility Dyskinesia of esophagus | + + | Conversion disorder | + + documented in this encounter"
--- OUTSIDE RECORDS SUMMARY | ~2020-05-16 | XMS | Encounter Summary ---
Demographics + + + | Address | [address] | | | [place] [address] | + + + | Home Phone [...] Team Providers + +------+ + | Care Head Of Transport Logistics Name | Role | Phone | + +------+ + | James Farmer MD | PCP | | + +------+ + Reason for Visit + +--------+ + | Reason | Onset | Comments | | | Date | | + +--------+ + | Follow-up | 04/16/ | ED 04/11 | | | 2020 | | + +--------+ + Encounter Details +--------+ + + + + | Date | Type | Department | Care Team | Description | +--------+ + + + + | 04/16/ | Telephone | [facility] | Nishant Arceo | Follow-up (ED 04/11) | | 2019 | | GASTROENTEROLOGY | MD [address] | | | | | [address] [facility] | [place] | | | | | [address] | [place] [address] | | | | | [address] | [phone] | | | | | [phone] | | | +--------+ + + + [...] Encounter - Berna Esqueda RN - 04/16/2020 3:53 PM PDTPatient returned ca ll today; she states she was in ED again on 04/11 for recent anxiety and allergic reaction to Imipramine. Imipramine was given on 04/09 - for dysmotility - tried one pill (not sure what night) cause d mouth to be dry and SOB, she felt it increased her swelling for swallowing and hallucinati ons; patient has d/c this medication. ER on 04/11 evening with anxiety; was given Ativan and advised to f/u with provider. Patient states today depression and unable to eat; she states she feels anxious; she states she is checking into counseling; [facility] counseling? She feels she needs a support group; she is concerned with her swallowing and eating problem. Advised patient when she speaks wit h Conductor Symphonic [employer] to be open and honest with answers. She has an appointment with PCP on Thursday 04/19 in the afternoon. She will follow up with P MELINDA for more Ativan, counseling and referral to [facility]. Reviewed again with patient OTC options for reflux (pepto, tums, gaviscon, mylanta); she wi ll follow up with PCP regarding her Protonix. She inquired if there were any further testings Dr. Arceo required; advised I did not see a ny open orders but would check; she has completed the Esophagram. Advised I would contact he r if there were further tests/imaging required. She verbalized understanding. documented in this encounter Plan of Treatment Not on filedocumented as of this encounter Visit Diagnoses Not on filedocumented in this encounter"
--- OUTSIDE RECORDS SUMMARY | ~2020-05-16 | XMS | Encounter Summary ---
Demographics + + + | Address | [address] | | | [place] [address] | + + + | Home Phone [...] + + + | Author | [facility] | | | and [place] | + + + | Organization | [facility] | | | and [...] Providers + +------+ + | Care Director Ship Name | Role | Phone | + +------+ + | James Farmer MD | PCP | | + +------+ + Reason for Visit + + + | Reason | Comments | + + + | Establish Care | Discharged from [facility] in [place], has not had a PCP in a | | | long time | + + + Encounter Details +--------+---------+ + + + | Date | Type | Department | Care Team | Description | +--------+---------+ + + + | 08/02/ | Office | [facility] | James Farmer, | Dysphagia, | | 2017 | Visit | MEDICINE [address] | unspecified type | | | | [address] [place], | [place], [place] | (Primary Dx); | | | | [place] [address] | [id number] | Gastroesophageal | | | | [phone] | | reflux disease, | | | | | | esophagitis presence | | | | | | not specified; | | | | | | Severe | | | | | | protein-calorie | | | | | | malnutrition (HCC); | | | | | | Depression, | | | | | | unspecified | | | | | | depression type; | | | | | | Hyponatremia; | | | | | | Seizure (HCC) | +--------+---------+ + + + Social History [...] + + + | Blood Pressure | 110/60 | 08/02/2017 10:35 AM | | | | | PDT | | + + + + + | Pulse | 80 | 08/02/2017 10:35 AM | | | | | PDT | | + + + + + | Temperature | 36.8 C (98.3 F) | 08/02/2017 10:35 AM | | | | | PDT | | + + + + + | Respiratory Rate | 20 | 08/02/2017 10:35 AM | | | | | PDT | | + + + + + | Oxygen Saturation | 93% | 08/02/2017 10:35 AM | | | | | PDT | | + + + + + | Inhaled Oxygen | - | - | | | Concentration | | | | + + + + + | Weight | 78 kg (171 lb 14.4 | 08/02/2017 10:35 AM | | | | oz) | PDT | | + + + + + | Height | 160 cm (5' 3") | 08/02/2017 10:35 AM | | | | | PDT | | + + + + + | Body Mass Index | 30.45 | 08/02/2017 10:35 AM | | | | | PDT | | + + + + + documented in this encounter Patient Instructions Patient Instructions James Farmer MD - 08/02/2017 11:07 AM PDT Dysphagia Diet: Level 1 (Pureed) A level 1 dysphagia diet is a special eating plan. Your healthcare provider may tell you to use it if you have moderate to severe dysphagia. What is a dysphagia diet? When you [...] a person s dysphagia is. A level 1 diet is the most limited. People on this diet shou ld eat only pureed, pudding-like foods. They should avoid foods with coarse textures. What can you eat? If you are on a level 1 dysphagia diet, there are certain foods you can and can t eat. Ma ke sure you follow all your healthcare provider s instructions. Even eating 1 food that is not approved can greatly raise your risk for aspiration. Foods you can eat: Pureed breads (also called pre-gelled breads) Smooth puddings, custards, yogurts, and pureed desserts Pureed fruits and mashed bananas Pureed meats Souffls Mashed potatoes that are moistened Pureed soups Pureed vegetables with no lumps, chunks, or seeds Foods to avoid: Non-pureed breads Any cereal with lumps Cookies, cakes, or pastry Whole fruit of any kind Non-pureed meats, beans, or cheese Scrambled, fried, or hard-boiled eggs Non-pureed potatoes, pasta, or rice Non-pureed soups Non-pureed vegetables Seeds, nuts, or chewy candies During [...] are safe for you on a level 1 dysp hagia diet. Some people can drink thin liquids, but others should not. If you can t have t hin liquids, make sure your liquids are thickened. Your healthcare provider will give you mo re information about how to manage the thickness of liquids. While you re on a dysphagia diet Follow all instructions about what foods and drinks you can have. Do swallowing exercises as advised. Do not change your food or liquids, even if your swallowing gets better. Talk with your healthcare provider first. Tell all health care providers and caregivers that you are on a dysphagia diet. Explain which foods and liquids you can and can [...] a stroke find that their swallowing problems get better with time and treatment. If your swallowing gets better, you may be able to change to a less restrictive diet. If your swall owing gets worse, you may need other methods of getting nutrition for a period of time. For example, you may need a feeding tube. Call 911 Call 911 if you have trouble breathing during or after eating. When to call your healthcare provider Call your healthcare provider right away if you have any of these: Trouble swallowing gets worse Unintended weight loss Food comes back up into your mouth Vomiting A wet-sounding voice after eating or drinking Date Last Reviewed: 01/20/201719993855-3024 [employer]. [address] [place] [address], [place] [address]. All righ ts reserved. This information is not intended as a substitute for professional medical care. Always follow your healthcare professional's instructions. documented in this encounter Progress Notes James Farmer MD - 08/02/2017 10:45 AM PDTFormatting of this note might be different f rom the original. Subjective: Patient ID: Cherrie Quijano is a 56 y.o. female .She was recently hospitalized for jacobo re protein calorie malnutrition, hyponatremia, and seizures. This whole event started when she had a choking episode on a piece of chicken. Following that she had what sounds like a conversion reaction was unable to eat any food. She states she lost about 30 pounds and reggie ntually became hyponatremic to the point where she had a seizure. She was hospitalized for this and treated with appropriate medications and now is back out. The barium swallow that she had done showed that she had some poor contractions of the esophagus which is probably w hat led her to have the dysphagia Episode. Now she is eating but she is mostly pureing or eating soft foods only. She is been afraid to drink any fluids because of the Restrictions she was placed on after hospitalization. Her keyliner was unwilling to do a colonoscopy for her due to some question of ca rdiac events. The patient denies any cardiac symptoms she denies any shortness of breath wi th exertion denies any cardiac history denies any hypertension or hypercholesterolemia. 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 However because of this question I would like to get a stress test done the stress test is normal I would like her to go ahead and get endoscopy procedures as previously sched uled. She does need an upper endoscopy because her barium swallow did show some thickening of the distal esophagus. We need to make certain this isn't from a neoplastic process. She also has some gastroesophageal reflux. This is treated now with omeprazole and appears to be working well. She is also on the fluid restriction. We discussed this today I told her that she can prob ably drink anything she wants now as long as she continues to eat salty foods. She appears to have gotten over her fear of swallowing and he is doing better on that front at this point. Chief Complaint Patient presents with Establish Care Discharged from [facility] in [place], has not had a PCP in a long time HPI: She had an episode of choking and stopped eating. Past Medical History: Diagnosis Date Anxiety Depression Dysphagia 04/21/2017 GERD (gastroesophageal reflux disease) Past Surgical History: Procedure Laterality Date VEIN SURGERY Patient Active Problem List Diagnosis Date Noted POA Thrombocytopenia 07/23/2017 Unknown Severe protein-calorie malnutrition 07/22/2017 Unknown Hyponatremia 07/21/2017 Unknown Seizure 07/21/2017 Unknown Special screening for malignant neoplasms, colon 07/20/2017 Unknown Dysphagia 06/16/2017 Unknown Gastroesophageal reflux disease, esophagitis presence not specified 06/16/2017 Unknown Reflux esophagitis 05/14/2017 Unknown Conversion [...] mouth (Patient not marva ing: Reported on 08/02/2017), Disp: , Rfl: omeprazole (PRILOSEC) 20 mg capsule, Take 1 capsule by mouth 2 times daily (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 30 minutes before breakfast and dinner., Disp: 180 capsule, Rfl: 3 Allergies No active allergies Intolerance No active intolerances/contraindications Review of Systems Constitutional: Positive for weight loss. HENT: Negative. Eyes: Negative. Respiratory: Negative. Cardiovascular: Positive for chest pain. Gastrointestinal: Positive for abdominal pain, heartburn and nausea. Genitourinary: Negative. Musculoskeletal: Positive for myalgias. Skin: Negative. Neurological: Negative. Endo/Heme/Allergies: Negative. Psychiatric/Behavioral: Positive for depression. The patient is nervous/anxious. Objective: BP 110/60 | Pulse 80 | Temp 36.8 C (98.3 F) (Tympanic) | Resp 20 | Ht 1.6 m (5' 3") | Wt 78 kg (171 lb 14.4 oz) | SpO2 93% | BMI 30.45 kg/m Physical Exam Constitutional: She is oriented to person, place, and time and well-developed, well-nourish ed, and in no distress. HENT: Head: Normocephalic and atraumatic. Eyes: Conjunctivae are normal. Pupils are equal, round, and reactive to light. No scleral i cterus. Neck: No JVD present. Cardiovascular: Normal rate, normal heart sounds and intact distal pulses. Pulmonary/Chest: Effort normal and breath sounds normal. Abdominal: Soft. She exhibits no distension and no mass. There is no tenderness. There is n o rebound and no guarding. Musculoskeletal: Normal range of motion. Neurological: She is alert and oriented to person, place, and time. She has normal reflexes . Gait normal. Skin: Skin is warm and dry. Psychiatric: Mood, memory, affect and judgment normal. Assessment/Plan: Cherrie was seen today for establish care. Diagnoses and all orders for this visit: Dysphagia, unspecified type Gastroesophageal reflux disease, esophagitis presence not specified Severe protein-calorie malnutrition (HCC) Depression, unspecified depression type Hyponatremia Seizure (HCC) No Follow-up on file. 1. We discussed. Diet advancing as she is tolerating this diet. I gave her a patient in formation handout on pured diet. I want her to try to increase her sodium intake at this point. Also lifting her fluid restrictions. Her last sodium was 138. 2. I want to get a cardiac stress test to risk stratify her before she has any further pro cedures because she has had episodic chest pain. 3. She has a hiatal hernia so I warned her about eating and drinking carbonated beverages which might make her hiatal hernia worse with food. I told her she probably drinks small am ounts of carbonated beverages as long she did eat with them. 4. She should try to exercise daily. 5. We will try to get old records so we can look at her health maintenance. 6. I don't think she needs a mental health referral at this point. I will have her follow-up after stress test. Return to clinic in 2 months. 11 :18 AM PDTdocumented in this encounter Plan of Treatment + +------+--------+ + + | Name | Type | Priori | Associated Diagnoses | Order Schedule | | | | ty | | | + +------+--------+ + + | Stress ECG | ECG | Routin | Seizure (HCC) | Expected: | | | | e | | 09/01/2017, Expires: | | | | | | 08/02/2018 | + +------+--------+ + + documented as of this encounter Visit Diagnoses + + | Diagnosis | + + | Dysphagia, unspecified type - Primary | + + | Gastroesophageal reflux disease, esophagitis presence not specified | + + | Severe protein-calorie malnutrition (HCC) Other severe protein-calorie malnutrition | + + | Depression, unspecified depression type | + + | Hyponatremia Hyposmolality and/or hyponatremia | + + | Seizure (HCC) Other convulsions | + + documented in this encounter
--- OUTSIDE RECORDS SUMMARY | ~2020-05-16 | XMS | Encounter Summary ---
Demographics + + + | Address | [address] | | | [place] [address] | + + + | Home Phone | | + + + | Preferred Language | Unknown | + + + | Marital Status | Single | + + + | Pentecostal Affiliation | [id number] | + + + | Race | Unknown | + + + | Ethnic Group | Unknown | + + + Author + + + | Author | [facility] | | | and [place] | + + + | Organization | [facility] | | | and [place] | + + + | Address | Unknown | + + + | Phone | Unavailable | + + + Support + + +---------+ + | Name | Relationship | Address | Phone | + + +---------+ + | Jake Bardales | ECON | Unknown | | + + +---------+ + | Ionaa Echols | ECON | Unknown | | + + +---------+ + | Zahira Quijano | ECON | Unknown | | + + +---------+ + Care Team Providers + +------+ + | Care Grain Ii Farmworker Name | Role | Phone | + +------+ + | James Farmer MD | PCP | | + +------+ + Reason for Visit +--------+--------+ + | Reason | Onset | Comments | | | Date | | +--------+--------+ + | EGD | 11/29/ | | | | 2017 | | +--------+--------+ + Encounter Details +--------+ + + + + | Date | Type | Department | Care Team | Description | +--------+ + + + + | 11/29/ | Telephone | [facility] | Loi Hui MD | EGD | | 2017 | | GASTROENTEROLOGY | [address] | | | | | [address] [facility] | [place], [place] | | | | | [address], [place] | [address] | | | | | [address] | [phone] | | | | | [phone] | | | +--------+ + + + [...] Telephone Encounter - Zarina Ramon RN - 11/29/2017 3:30 PM PSTPatient agreed to check- in at 1200 tomorrow for EGD instead of 1300.Electronically signed by Zarina Ramon RN at 0 11/29/2017 3:30 PM PSTdocumented in this encounter Plan of Treatment Not on filedocumented as of this encounter Visit Diagnoses Not on filedocumented in this encounter"
--- OUTSIDE RECORDS SUMMARY | ~2020-05-16 | XMS | Encounter Summary ---
Demographics + + + | Address | [address] | | | [place] [address] | + + + | Home Phone [...] + | Author | [facility] | | | and [place] | + + + | Organization | [facility] | | | and [...] Team Providers + +------+ + | Care Printed Circuit Board Assembler Name | Role | Phone | [...] | | | | Seizure | | [address] | | | | | (HCC) | | [place], | | | | | Procedures | | [place] [address] | | | | | [place] | | Phone: | | | | | ESOPHAGOGAST | | [phone] | | | | | RODUODENOSCO | | Fax: | | | | | PY TRANSORAL | | [phone] | | | | | DIAGNOSTIC | | | | | | | [place] EGD | | | | | | | TRANSORAL | | | | | | | BIOPSY | | | | | | | SINGLE/MULTI | | | | | | | PLE SC | | | | | | | DILATE | | | | | | | ESOPHAGUS | | | | | | | SC | | | | | | | [...] + + | 02/19/ | Anesthesia | [facility] | Ayad Abraham | | | 2020 | Event | [facility] | MD [address] | | | | | [address] | [address] [facility] | | | | | [place] | [place] [address] | | | | | [address] | [phone] | | | | | [phone] | | | +--------+ + + + + Anesthesia Record + + + + + | Procedure Name | Responsible | Anesthesia Start | Anesthesia Stop Time | | | Anesthesiologist | Time | | + + + + + | ANDERSON KangN/A Kassi | Ayad Mayes | 02/20/20808 | 02/20/20 08 | | | MD Jarad | | | + + + + + +----+---+ + + | Da | T | Event | Comment | | te | i | | | | | m | | | | | e | | | +----+---+ + + | 03 | 0 | An Checkout | Pre-use anesthesia machine/equipment checkout. | | /3 | 7 | | | | 1/ | 3 | | | | 20 | 6 | | | | 20 | | | | +----+---+ + + | | 0 | | | | | 7 | | | | | 5 | | | | | 6 | | | +----+---+ + + | | 0 | Quick Note | Waiting for Dr. Arceo | | | 8 | | | | | 0 | | | | | 0 | | | +----+---+ + + | | 0 | An Start | Reassessment prior to anesthesia induction/procedure. | | | 8 | | | | | 0 | | | | | 9 | | | +----+---+ + + | | 0 | An Start | | | | 8 | Data | | | | 1 | | | | | 0 | | | +----+---+ + + | | 0 | Preoxygenat | | | | 8 | ed | | | | 1 | | | | | 3 | | | +----+---+ + + | | 0 | First | | | | 8 | Inc/Proc St | | | | 1 | | | | | 4 | | | +----+---+ + + | | 0 | An | | | | 8 | Induction | | | | 1 | | | | | 5 | | | +----+---+ + + | | 0 | Pre-Procedu | | | | 8 | ral Timeout | | | | 1 | Completed | | | | 5 | | | +----+---+ + + | | 0 | Breathing | | | | 8 | Spontaneous | | | | 1 | ly | | | | 5 | | | +----+---+ + + | | 0 | an stop | | | | 8 | data | | | | 3 | | | | | 0 | | | +----+---+ + + | | 0 | An Stop | Patient handed off to recovery nurse. | | | 3 | | | | | 5 | | | +----+---+ + + +------+ | Meds | +------+ + + + | Name | Total | + + + | propofol | 80 mg | + + + | propofol | 105.12 mg | + + + | lidocaine 2% | 60 mg | + + + | ePHEDrine (AKOVAZ) injection 50 | 10 mg | | mg/mL | | + + + | lactated ringers (LR) infusion | 500 mL | + + + + + | No agents on file. | + + + + | No blood administrations on file. | + + +--------+ + + + | Type | Details | Placement | Removal | +--------+ + + + | Periph | 02/20/20; 736; Right; Hand; | 02/20/20736 by | 02/20/20900 by | | eral | gnfw-czn-ladirb catheter system; | Ioana Jade RN | Gus Weston RN | | IV | 20 gauge, 1 1/4 in length; | | | | | distraction, intradermal | | | | | injection, tolerated well; | | | | | 02/20/20; 900 | | | +--------+ + + + [...] encounter OR Notes Anesthesia Postprocedure Evaluation - Ayad Abraham MD - 02/20/2020 10:07 AM PDTFo rmatting of this note might be different from the original. ANESTHESIA POSTANESTHESIA EVALUATION Cherrie Quijano 59 y.o. female 1960 [id number] Pt meets criteria for Phase 2 placement post operatively. Delivered to Phase 2 recovery. Vital signs immediately checked and assessed. Signout given to RN at bedside. Pt followi ng commands, is hemodynamically stable and appears comfortable. No complications identified. Procedure(s) EGD (N/A Mouth) Cooperates? Yes Mental Status Performs simple tasks. Respiratory Satisfactory - Airway patent (self maintained). Cardiovascular Satisfactory - Blood pressure and heart rate acceptable Temperature Satisfactory Pain Satisfactory N/V Control Satisfactory Hydration Satisfactory - No signs of dehydration Adverse Events ADVERSE EVENTS: No adverse events Vitals Value Taken Time Temp Pulse 73 02/20/2020 8:56 AM Resp 14 02/20/2020 8:33 AM BP 102/67 02/20/2020 8:45 AM Arterial Line BP Arterial Line BP 2 SpO2 96 % 02/20/2020 8:56 AM Vitals shown include unvalidated device data. Electronically signed by Ayad Abraham MD 02/20/2020 10:07 AM [facility] MD a t 02/20/2020 10:07 AM PDTAnesthesia Preprocedure Evaluation - Ayad Abraham MD - 7:08 PM PDT ANESTHESIA PREANESTHESIA EVALUATION Cherrie Quijano 59 y.o. female 1960 [id number] Procedure(s): EGD (N/A Mouth) Medical,anesthesia, drug, allergy histories reviewed, NPO status verified. Labs reviewed. (-) perioperative beta-alex/statin not given/taken, reason: not applicab le/Not taking Beta-Alex. Review of Systems / Med History Anesthesia History (+) previous surgery or anesthesia. Cardiovascular Results [...] ECGs available Confirmed by VIRGIE MAXWELL MD ([id number]) on 07/23/2017 8:40:04 AM . Exercise tolerance >4 METS. Pulmonary Negative except where noted below. (-) shortness of breath.(-) sleep apnea.(-) tobacco use. Gastrointestinal/Hepatic Esophageal dysphasia. Renal Chemistry Component Value Date/Time NA 140 09/06/2019 0550 K 3.8 09/06/2019 0550 CL 106 09/06/2019 0550 CO2 26 09/06/2019 0550 GLU 101 09/06/2019 0550 BUN 13 09/06/2019 0550 CREA 0.73 09/06/2019 0550 ANIONGAP 8 09/06/2019 0550 OSMOLALITY 238 (L) 07/21/2017 0327 Component Value Date/Time CALCIUM 9.8 09/06/2019 0550 ALKPHOS 111 09/05/2019 1626 AST 26 09/05/2019 1626 ALT 27 09/05/2019 1626 TOTALPROTEIN 8.3 (H) 09/05/2019 1626 ALBUMIN 5.3 (H) 09/05/2019 1626 BILITOT 0.7 09/05/2019 1626 . Negative except where noted below. (+) renal/ureteral stones. Endocrine (-) obesity. (-) Diabetes. Hematology/Other Lab Results Component Value Date WBC 6.7 09/05/2019 HCT 44.9 09/05/2019 MCV 84.1 09/05/2019 PLT 218 09/05/2019 . Cancer Negative except where noted below. Neuromuscular (+) back pain. (+) seizures: Psychology Negative except where noted below. Physical Exam Airway MP II, TM >3 FB, Mouth opening >2 FB. Neck: full ROM, extends >30 degrees. Jaw protrus ion normal. Facial hair present: No Dental grossly normal except where noted below. (+) chipped/broken teeth, implants(s)/bridges(s)/caps(s) and dentures-upper (partial dentur e). CV Rhythm regular. Rate normal. (-) murmur. Pulm Clear to auscultation bilaterally. Neuro grossly normal. Anesthesia Plan ASA: 3 (seizures) Type: TIVA. Induction: Intravenous. Potential problems: None anticipated. Monitors: Standard ASA monitors. Postop Pain Management: Consent statement: Anesthetic plan, alternatives, risks and benefits discussed with patient. backache, , discussed risks to teeth, disability, drug reaction, heart problems, ICU placement, infectio n, muscle aches, nausea, pain, perioperative CV events, post-op intubation, respiratory even ts, sore throat, stroke, voice injury, delirium Blood transfusion concerns: Consenting person understands and agrees to proceed. PARQ. Anesthesia consent held with patient regarding risks as checked above. Spoke specifically about the risks of hypoxia and aspiration. Plan to proceed with TIVA and natural airway but GETA may be required. All of the patient's questions were answered. Patient understands, agrees and consents t o proceed. 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 Electronically Signed by: Ayad Abraham MD ESig date/time: 02/20/2020 7:32 AM documented in t his encounter Miscellaneous Notes Addendum Note - Ayad Abraham MD - 02/20/2020 10:27 AM PDT Addendum created 02/20/20 1027 by Ayad Abraham MD Intraprocedure Event edited nesthesia Pos t-op Handoff - Ayad Abraham MD - 02/20/2020 8:34 AM PDTFormatting of this note mi ght be different from the original. ANESTHESIA HANDOFF NOTE Cherrie Urias Quijano 59 y.o. female 1960 [id number] EGD (N/A Mouth) HANDOFF NOTE Handoff Protocol [...] receiving team Patient Location: Phase II Condition: awake and alert Airway/O2: no supplemental O2 The significant anesthesia concerns and VS in Epic were reviewed with the receiving team. Ayad Abraham MD 02/20/2020 8:34 AM [facility] signed by Ayad Abraham MD a t 02/20/2020 8:34 AM PDTdocumented in this encounter Plan of Treatment Not on filedocumented as of this encounter Visit Diagnoses Not on filedocumented in this encounter Administered Medications + +--------+ +-------+------+------+ | Medication Order | MAR | Action | Dose | Rate | Site | | | Action | Date | | | | + +--------+ +-------+------+------+ | ePHEDrine (AKOVAZ) 50 mg/mL | Given | 02/20/20 | 10 mg | | | | injection Intravenous, PRN, | | 20 8:26 | | | | | Starting 02/20/20 at 0826, | | AM PDT | | | | | Anesthesia Intra-op | | | | | | + +--------+ +-------+------+------+ +---+---+ | | | +---+---+ + + + +---+---+---+ | lactated ringers (LR) infusion | Continue | 02/20/20 | | | | | at 100 mL/hr, Intravenous, | d by | 20 8:09 | | | | | CONTINUOUS, Starting Wed02/20/20 | Anesthes | AM PDT | | | | | at 0745, Pre-op | ia | | | | | + + + +---+---+---+ +---------+ +---+-------+---+ | New Bag | 02/20/20 | | 100 | | | | 20 7:37 | | mL/hr | | | | AM PDT | | | | +---------+ +---+-------+---+ +---+---+ | | | +---+---+ + +-------+ +-------+---+---+ | lidocaine (PF) 2% injection | Given | 02/20/20 | 60 mg | | | | Intravenous, PRN, Starting Wed | | 20 8:15 | | | | | 02/20/20 at 0815, Anesthesia | | AM PDT | | | | | Intra-op | | | | | | + +-------+ +-------+---+---+ +---+---+ | | | +---+---+ + +-------+ +-------+---+---+ | propofol (DIPRIVAN) injection | Given | 02/20/20 | 80 mg | | | | Intravenous, PRN, Starting Tue | | 20 8:15 | | | | | 02/20/20 at 0815, Anesthesia | | AM PDT | | | | | Intra-op | | | | | | + +-------+ +-------+---+---+ +---+---+ | | | +---+---+ + +---------+ + +-------+---+ | propofol (DIPRIVAN) injection | New Bag | 02/20/20 | 160 | 70.1 | | | Intravenous, CONTINUOUS PRN, | | 20 8:16 | mcg/kg/m | mL/hr | | | Starting 02/20/20 at 0816, | | AM PDT | in | | | | Anesthesia Intra-op | | | | | | + +---------+ + +-------+---+ +---+---+ | | | +---+---+ documented in this encounter"
--- OUTSIDE RECORDS SUMMARY | ~2020-05-16 | XMS | Encounter Summary ---
Demographics + + + | Address | [address] | | | [place] [address] | + + + | Home Phone [...] Team Providers + +------+ + | Care Cook Station Name | Role | Phone | + +------+ + | James Farmer MD | PCP | | + +------+ + Encounter Details +--------+ + + + + | Date | Type | Department | Care Team | Description | +--------+ + + + + | 04/06/ | Orders Only | [facility] | Loi Hui MD | Esophagitis, [place] | | 2019 | | GASTROENTEROLOGY | [address] | Flavia grade D | | | | [address] [facility] | [place], [place] | (Primary Dx); | | | | [address] [place] | [address] | Gastroesophageal | | | | [address] | [phone] | reflux disease, | | | | [phone] | | esophagitis presence | | | [...] encounter Progress Notes Zarina Ramon RN - 04/06/2019 9:23 AM PDTPrilosec 40mg BID ordered for 3 months due to severe LA grade D esophagitis and dysphagia at [facility]. documented in this encounter Plan of Treatment Not on filedocumented as of this encounter Visit Diagnoses + + | Diagnosis | + + | Esophagitis, Hudspeth grade D - Primary | + + | Gastroesophageal reflux disease, esophagitis presence not specified | + + | Dysphagia, unspecified type | + + documented in this encounter"
--- OUTSIDE RECORDS SUMMARY | ~2020-05-16 | XMS | Encounter Summary ---
Demographics + + + | Address | [address] | | | [place] [address] | + + + | Home Phone [...] Team Providers + +------+ + | Care Line Repairer Name | Role | Phone | + [...] | | | | | | | ([facility]) | | | | | | | ([id number]) | | | | | | | Procedures | | | | | | | [place] | | | | | | | ESOPHAGOGAST | | | | | | | RODUODENOSCO | | | | | | | PY TRANSORAL | | | | | | | DIAGNOSTIC | | | | | | | [place] EGD | | | | | | | TRANSORAL | | | | | | | BIOPSY | | | | | | | SINGLE/MULTI | | | | | | | PLE [place] | | | | | | | ANESTH,UGI | | | | | | | ENDOSCOPY | | | | | | | EGD | | | +--------+--------+ + + + + Encounter Details +--------+ + + + + | Date | Type | Department | Care Team | Description | +--------+ + + + + | 11/30/ | [facility]est[facility] | [facility] | Feliz Benítez | | | 2018 | Event | MED CTR MP INTRA OP | MD Vik [address] | | | | | [address] | [address] [place] | | | | | [place] | [address] | | | | | [address] | | | | | | [phone] | | | +--------+ + + + + Anesthesia Record + + + + + | Procedure Name | Responsible | Anesthesia Start | Anesthesia Stop Time | | | Anesthesiologist | Time | | + + + + + | EGD (N/A Haydee) | Feliz Benítez, | 11/30/17 1345 | 11/30/17 1411 | | | MD | | | + + + + + +----+---+ + + | Da | T | Event | Comment | | te | i | | | | | m | | | | | e | | | +----+---+ + + | 01 | 1 | | | | /0 | 2 | | | | 9/ | 5 | | | | 20 | 0 | | | | 18 | | | | +----+---+ + + | | 1 | An Checkout | Pre-use anesthesia machine/equipment checkout. | | | 3 | | | | | 4 | | | | | 5 | | | +----+---+ + + | | 1 | an christiano now | | | | 3 | | | | | 4 | | | | | 5 | | | +----+---+ + + | | 1 | An Start | Reassessment prior to anesthesia induction/procedure. | | | 3 | | | | | 4 | | | | | 5 | | | +----+---+ + + | | 1 | AN | Per surgeon request | | | 3 | Antibiotic | | | | 4 | declined | | | | 7 | | | +----+---+ + + | | 1 | Pre-Procedu | | | | 3 | ral Timeout | | | | 4 | Completed | | | | 9 | | | +----+---+ + + | | 1 | First | | | | 3 | Inc/Proc St | | | | 5 | | | | | 0 | | | +----+---+ + + | | 1 | An | Monitors applied, supplemental O2 place, patient positioned, time | | | 3 | Induction | out taken, IV induction to the point of the patient being | | | 5 | | unconscious and un responsive, breathing spontaneously. | | | 0 | | | +----+---+ + + | | 1 | Breathing | | | | 3 | Spontaneous | | | | 5 | ly | | | | 3 | | | +----+---+ + + | | 1 | An Stop | Patient handed off to recovery nurse. | | | 1 | | | | | 1 | | | +----+---+ + + +------+ | Meds | +------+ + +--------+ | Name | Total | + +--------+ | lidocaine 2% | 60 mg | + +--------+ | propofol | 400 mg | + +--------+ | lactated ringers (LR) infusion | 400 mL | + +--------+ + + | Name | + + | O2 Flow Rate (L/Min) | + + + + | No blood administrations on file. | + + +--------+ + + + | Type | Details | Placement | Removal | +--------+ + + + | Periph | 07/23/17; 0611; Left; Anterior | 07/23/17 0611 by | 11/30/17 1531 by | | eral | (palmar), Mid; Forearm; | Treva Quarles RN | Kerrie Valdes RN | | IV | cors-uim-zsskjt catheter system; | | | | | 20 gauge, 1 1/4 in length; | | | | | distraction, intradermal | | | | | injection, tolerated well, | | | | | appears comfortable; no longer | | | | | indicated, catheter/device | | | | | intact; PreVue ultrasound used, | | | | | 0.5% xylocaine; 11/30/17; 1531 | | | +--------+ + + + | Periph | 11/30/17; 1249; Left; Forearm; | 11/30/17 1249 by | 11/30/17 1500 by | | eral | qytn-kyn-tozkpy catheter system; | Stacy Leblanc RN | Kerrie Valdes RN | | IV | 22 gauge; Chemistry; distraction; | | | | | no longer indicated, removed per | | | | | policy/procedure, | | | | | catheter/device intact; short | | | | | term use; 11/30/17; 1500 | | | +--------+ + + + [...] encounter OR Notes Anesthesia Postprocedure Evaluation - Feliz Benítez MD - 11/30/2017 2:19 PM PSTForma tting of this note might be different from the original. ANESTHESIA POSTANESTHESIA EVALUATION Cherrie Quijano 57 y.o. female 1960 [id number] Procedure(s) EGD (N/A Mouth) Cooperates? Yes Mental Status Performs simple tasks. Respiratory Satisfactory - Airway patent (self maintained). Cardiovascular Satisfactory - Blood pressure and heart rate acceptable Temperature Satisfactory Pain Satisfactory N/V Control Satisfactory Hydration Satisfactory - No signs of dehydration Complications None apparent Vitals: 11/30/17 1228 11/30/17 1411 BP: 125/67 133/55 Pulse: 81 75 Temp: 36.1 C (97 F) 37.2 C (99 F) Resp: 16 15 SpO2: 98% Electronically signed by Feliz Benítez MD 11/30/2017 14:19 [facility] Fel[facility] MD at 0 11/30/2017 2:19 PM PSTAnesthesia Preprocedure Evaluation - Feliz Benítez MD - 11/29/19 18 7:18 PM PST ANESTHESIA PREANESTHESIA EVALUATION Cherrie Quijano 57 y.o. female 1960 [id number] Procedure(s): EGD (N/A Mouth) Medical history, anesthesia, medications, allergy, NPO status verified histories reviewed. Review of Systems / Med History Anesthesia History No anesthesia complications. (+) PONV(-) malignant hyperthermia Cardiovascular , Exercise tolerance >4 METS Pulmonary (+) smoking history Neurology (+) seizures Psychology (+) anxiety, depression Renal Negative except where noted below. Gastrointestinal/Hepatic Negative except where noted below. Endocrine (+) obesity: BMI (30-39) Other (+) thrombocytopenia Physical Exam Airway MP II, TM >3 FB, Mouth opening >2 FB. Neck: full ROM, extends >30 degrees. Jaw protrus ion normal. Dental Grossly normal except where noted below.; (+) Age appropriate dentition. CV Rhythm regular. Rate Normal. (-) murmur, carotid bruit, peripheral edema, JVD and weak pulses. Pulm Clear to auscultation bilaterally. (-) wheezing, rhonchi, decreased breath sounds, rales and stridor. Neuro Grossly normal. Anesthesia Plan ASA 3 Type: TIVA. Induction: Intravenous. Potential problems: None anticipated. Monitors: Standard ASA monitors. Consent statement:Anesthetic plan, alternatives, risks and benefits discussed with patient and family. Risks discussed included (but were not limited to): dental injury, pain, sore throat, infec tion, voice injury, muscle aches, nausea, respiratory events, . Consenting person understands and agrees to proceed. PARQ. Risks and benefits of tiva anesthetic discussed with patient and available family members. They agree to proceed, answered all questions. Past Medical History: No date: Anxiety No date: Depression 04/21/2017: Dysphagia No date: GERD (gastroesophageal reflux disease) No date: Seizure (HCC) No date: Wears partial dentures Comment: upper. documented in this encounter Plan of Treatment [...] | | | | | CONTINUOUS, Starting Wed11/30/17 | | PM PST | | | | | at 1300, Pre-op | | | | | | + +---------+ +------+------+------+ +---+---+ | | | +---+---+ + +-------+ +-------+---+---+ | lidocaine (PF) 2% injection | Given | 11/30/19 | 60 mg | | | | Intravenous, PRN, Starting Wed | | 18 1:50 | | | | | 11/30/17 at 1350, Anesthesia | | PM PST | | | | | Intra-op | | | | | | + +-------+ +-------+---+---+ +---+---+ | | | +---+---+ + +-------+ +--------+---+---+ | propofol (DIPRIVAN) injection | Given | 11/30/19 | 100 mg | | | | Intravenous, PRN, Starting Tue | | 18 2:06 | | | | | 11/30/17 at 1350, Anesthesia | | PM PST | | | | | Intra-op | | | | | | + +-------+ +--------+---+---+ +-------+ +--------+---+---+ | Given | 11/30/19 | 100 mg | | | | | 18 2:01 | | | | | | PM PST | | | | +-------+ +--------+---+---+ | Given | 11/30/19 | 100 mg | | | | | 18 1:55 | | | | | | PM PST | | | | +-------+ +--------+---+---+ +---+---+ | | | +---+---+ documented in this encounter"
--- OUTSIDE RECORDS SUMMARY | ~2020-05-16 | XMS | Encounter Summary ---
Demographics + + + | Address | [address] | | | [place] [address] | + + + | Home Phone [...] Team Providers + +------+ + | Care Consulting Application Engineer Name | Role | Phone | + +------+ + | James Farmer MD | PCP | | + +------+ + Reason for Visit + +--------+ + | Reason | Onset | Comments | | | Date | | + +--------+ + | Swallowing | 03/23/ | | | Difficulty | 2018 | | + +--------+ + Encounter Details +--------+ + + + + | Date | Type | Department | Care Team | Description | +--------+ + + + + | 03/23/ | Telephone | [facility] | James Farmer, | Swallowing | | 2018 | | MEDICINE [address] | [address] | Difficulty | | | | [place], | [place] | | | | | [place] [address] | [address] | | | | | [phone] | | | +--------+ + + + [...] this encounter Miscellaneous Notes Telephone Encounter - Anh Walsh - 03/23/2019 12:13 PM PDTPatient called back and said she was calling and giving an update, she doesn't need anything and is scheduled for elephone Encoun ter - Anh Walsh - 03/23/2019 11:03 AM PDTCalled LVM to give below messageElectroni filemon signed by Anh Walsh at 03/23/2019 11:03 AM PDTTelephone Encounter - Mere Blevins LPN - 03/23/2019 9:46 AM PDTPlease advise she can discuss this with urgent care as she has not seen provider in about 1 year. Does she need a refill or? If she is asking if sh e should continue or stop it she will have to address that in office when she sees he is out of office until March 31 or she can discuss it at urgent care elephone Encounter - Salima Lala - 03/23/2019 9:03 AM PDTPatient called back to scheduled with Dr. Farmer's next available. Asked abou t isordil 10 mg medication on what to do? Please advise. elephone Encounter - Ashlie Blevins LPN - 03/23/2019 8:5 3 AM PDTReturned call to Jaime provider is out of the office at this time and sh e should use urgent care. Also advised to phone call center to schedule a follow up apptElec tronically signed by Ashlie Blevins LPN at 03/23/2019 8:55 AM PDTTelephone Encounter - Salima Nieves - 03/23/2019 8:40 AM PDTPatient called asking to speak to the nurse, regarding swallowing difficulty. Informed patient Dr. Farmer is out of the office and stated she bhavna l be going to Urgent Care. Also stated she had stopped taking medication that helped with th roat? Please advise. documen yossi in this encounter Plan of Treatment Not on filedocumented as of this encounter Visit Diagnoses Not on filedocumented in this encounter"
--- OUTSIDE RECORDS SUMMARY | ~2020-05-16 | XMS | Encounter Summary ---
Demographics + + + | Address | [address] | | | [place] [address] | + + + | Home Phone [...] Team Providers + +------+ + | Care Tugboat Mate Name | Role | Phone | + +------+ + | Loi Macdonald MD | PCP | | + +------+ + Reason for Visit + +--------+ + | Reason | Onset | Comments | | | Date | | + +--------+ + | Hospital Follow-up | 07/27/ | | | | 2016 | | + +--------+ + Encounter Details +--------+ + + + + | Date | Type | Department | Care Team | Description | +--------+ + + + + | 07/27/ | Telephone | [place] | Nupur Turner | Hospital Follow-up | | 2016 | | Internal Medicine | [facility] | | | | | Hospitalists [address] | | | | | | [address] [place] | | | | | | [address] | | | | | | [phone] | | | +--------+ + + + [...] this encounter Miscellaneous Notes Telephone Encounter - Nupur Turner RN - 07/27/2017 4:01 PM PDTCTC call to patient , no answer, left message. 4: 01 PM PDTdocumented in this encounter Plan of Treatment Not on filedocumented as of this encounter Visit Diagnoses Not on filedocumented in this encounter"
--- OUTSIDE RECORDS SUMMARY | ~2020-05-16 | XMS | Encounter Summary ---
Demographics + + + | Address | [address] | | | [place] [address] | + + + | Home Phone [...] Team Providers + +------+ + | Care Hvac Installer Name | Role | Phone | + +------+ + | James Farmer MD | PCP | | + +------+ + Reason for Visit + + + | Reason | Comments | + + + | Cold Symptoms | Rm2; since Wednesday; "thought it was my sinuses" | + + + Encounter Details +--------+---------+ + + + | Date | Type | Department | Care Team | Description | +--------+---------+ + + + | 08/22/ | Office | [facility] | Maria Guadalupe Lizama | Acute | | 2017 | Visit | CARE [address] | [address] | nasopharyngitis | | | | [place] | [address] | (Primary Dx) | | | | [address] | [facility], | | | | | [phone] | [place] [address] | | | | | | [phone] | | | | | | | [...] + + + | Blood Pressure | 104/76 | 08/22/2017 8:41 AM | | | | | PDT | | + + + + + | Pulse | 90 | 08/22/2017 8:41 AM | | | | | PDT | | + + + + + | Temperature | 36.4 C (97.6 F) | 08/22/2017 8:41 AM | | | | | PDT | | + + + + + | Respiratory Rate | 20 | 08/22/2017 8:41 AM | | | | | PDT | | + + + + + | Oxygen Saturation | 98% | 08/22/2017 8:41 AM | | | | | PDT | | + + + + + | Inhaled Oxygen | - | - | | | Concentration | | | | + + + + + | Weight | 77.6 kg (171 lb) | 08/22/2017 8:41 AM | | | | | PDT | | + + + + + | Height | 157.5 cm (5' 2") | 08/22/2017 8:41 AM | | | | | PDT | | + + + + + | Body Mass Index | 31.28 | 08/22/2017 8:41 AM | | | | | PDT | | + + + + + documented in this encounter Patient Instructions Patient Instructions Maria Guadalupe Lizama ARNP - 08/22/2017 9:11 AM PDT Viral Upper Respiratory Illness (Adult) You have a viral upper respiratory illness (URI), which is another term for the common cold . This illness is contagious during the first few days. It is spread through the air by coug luis and sneezing. It may also be spread by direct contact (touching the sick person and the n touching your own eyes, nose, or mouth). Frequent handwashing will decrease risk of spread . Most viral illnesses go away within 7 to 10 days with rest and simple home remedies. Somet imes the illness may last for several weeks. Antibiotics will not kill a virus, and they are generally not prescribed for this condition. Home care If symptoms are severe, rest at home for the first 2 to 3 days. When you resume activity , don't let yourself get too tired. Avoid being exposed to cigarette smoke (yours or others ). You may use acetaminophen or ibuprofen to control pain and fever, unless another medicin e was prescribed. (Note: If you have chronic liver or kidney disease, have ever had a stomac h ulcer or gastrointestinal bleeding, or are taking blood-thinning medicines, talk with your healthcare provider before using these medicines.) Aspirin should never be given to anyone under 18 years of age who is ill with a viral infection or fever. It may cause severe liver or brain damage. Your appetite may be poor, so a light diet is fine. Avoid dehydration by drinking 6 to 8 glasses of fluids per day (water, soft drinks, juices, tea, or soup). Extra fluids will hel p loosen secretions in the nose and lungs. Vodk-qpl-pldflai cold medicines will not shorten the length of time you re sick, but t hey may be helpful for the following symptoms: cough, sore throat, and nasal and sinus conge stion. (Note: Do not use decongestants if you have high blood pressure.) Follow-up care Follow up with your healthcare provider, or as advised. When to seek medical advice Call your healthcare provider right away if any of these occur: Cough with lots of colored sputum (mucus) Severe headache; face, neck, or ear pain Difficultyswallowingdue to throat pain Fever of 100.4F (38C) Call 911, or get immediate medical care Call emergency services right away if any of these occur: Chest pain, shortness of breath, wheezing, or difficulty breathing Coughing up blood Inability to swallow due to throat pain Date Last Reviewed: 08/04/[id number] [employer] [address] [place] [address], [place] [address]. All righ ts reserved. This information is not intended as a substitute for professional medical care. Always follow your healthcare professional's instructions. documented in this encounter Progress Notes Maria Guadalupe Lizama ARNP - 08/22/2017 8:45 AM PDTFormatting of this note might be differ ent from the original. Subjective: Cherrie Quijano is a 56 y.o. female who presents to the clinic with a complaint of Cold Symptoms (Rm2; since Wednesday; "thought it was my sinuses") Sinus Problem This is a new problem. The current episode started in the past 7 days. The problem has been gradually worsening since onset. There has been no fever. She is experiencing no pain. Asso ciated symptoms include congestion, coughing, headaches, a hoarse voice, sinus pressure and sneezing. Pertinent negatives include no chills, diaphoresis, ear pain, neck pain, shortness of breath, sore throat or swollen glands. (Bilateral ear pressure) Treatments tried: Echina cea, Cold/flu medicine. The treatment provided mild relief. No Known Allergies Medications: Patient Reported Taking Dosage ALPRAZolam (XANAX) 0.25 mg tablet (Taking) Take 0.25 mg by mouth 3 times daily as needed for Anxiety. 1/2 tablet in the morning, 1/2 tablet midday and full tablet at night Number of times this order has been changed since signin Order [facility] [place] omeprazole (PRILOSEC) 20 mg capsule (Taking) Take 1 capsule by mouth 2 times daily (befor e meals). 30 minutes before breakfast and dinner. Number of times this order has been changed since signin Order [facility] [place] Past Medical History She has a past medical history of Anxiety; Depression; Dysphagia (04/21/2017); and GERD (ga stroesophageal reflux disease). Past Surgical History She has a past surgical history that includes Vein Surgery. Social History Substance Use Topics Smoking status: Former Smoker Types: Cigarettes Smokeless tobacco: Never Used Comment: smoked socially when she drank Alcohol use No Review of Systems Constitutional: Negative for chills and diaphoresis. HENT: Positive for congestion, hoarse voice, sinus pressure and sneezing. Negative for ear pain and sore throat. Respiratory: Positive for cough. Negative for shortness of breath. Musculoskeletal: Negative for neck pain. Neurological: Positive for headaches. See HPI Objective: Vitals: 08/22/17 0841 BP: 104/76 Pulse: 90 Resp: 20 Temp: 36.4 C (97.6 F) TempSrc: Temporal SpO2: 98% Weight: 77.6 kg (171 lb) Height: 1.575 m (5' 2") No LMP recorded. Patient is postmenopausal. Physical Exam Constitutional: She is oriented to person, place, and time. She appears well-developed and well-nourished. No distress. HENT: Head: Normocephalic and atraumatic. Right Ear: External ear and ear canal normal. Tympanic membrane is not erythematous and not bulging. A middle ear effusion (serous) is present. Left Ear: External ear and ear canal normal. Tympanic membrane is not erythematous and not bulging. A middle ear effusion (serous) is present. Nose: Mucosal edema and rhinorrhea present. No sinus tenderness. Mouth/Throat: Uvula is midline, oropharynx is clear and moist and mucous membranes are norm al. No oropharyngeal exudate, posterior oropharyngeal edema or posterior oropharyngeal eryth xavier. Mild edema and erythema of turbinates with clear postnasal drainage. No petechiae present. Eyes: Conjunctivae are normal. Pupils are equal, round, and reactive to light. Neck: Trachea normal and normal range of motion. Neck supple. Cardiovascular: Normal rate, regular rhythm, S1 normal, S2 normal and normal heart sounds. Exam reveals no gallop and no friction rub. No murmur heard. Pulmonary/Chest: Effort normal and breath sounds normal. No respiratory distress. She has n o decreased breath sounds. She has no wheezes. She has no rhonchi. She has no rales. She exh ibits no tenderness. Lymphadenopathy: She has cervical adenopathy. Right cervical: No posterior cervical adenopathy present. Left cervical: No posterior cervical adenopathy present. Neurological: She is alert and oriented to person, place, and time. Skin: Skin is warm and dry. No rash noted. Psychiatric: She has a normal mood and affect. Her behavior is normal. Nursing note and vitals reviewed. Assessment: 1. Acute nasopharyngitis fluticasone (FLONASE) 50 mcg/nasal spray loratadine (CLARITIN) 10 mg tablet Plan: 1. Acute nasopharyngitis - fluticasone (FLONASE) 50 mcg/nasal spray; 1 spray by Nasal route 2 times daily. Dispense : 16 g; Refill: 1 - loratadine (CLARITIN) 10 mg tablet; Take 1 tablet by mouth Daily. Dispense: 30 tablet; R efill: 0 See medications and orders associated with this visit. Handout given. Diagnosis and plan including medications and side effects were discussed with the patient. Patient voices understanding of the plan and all questions were answered. Follow up with Primary Care Provider or return to clinic if not improving in 1 week or if s ymptoms worsen. Tdocumented in this encounter Plan of Treatment Not on filedocumented as of this encounter Visit Diagnoses + + | Diagnosis | + + | Acute nasopharyngitis - Primary Acute nasopharyngitis (common cold) | + + documented in this encounter
--- OUTSIDE RECORDS SUMMARY | ~2020-05-16 | XMS | Encounter Summary ---
Demographics + + + | Address | [address] | | | [place] [address] | + + + | Home Phone [...] Team Providers + +------+ + | Care Composition Instructor Name | Role | Phone | + +------+ + | James Farmer MD | PCP | | + +------+ + Encounter Details +--------+ + + + + | Date | Type | Department | Care Team | Description | +--------+ + + + + | 02/19/ | Orders Only | [facility] | Nishant Arceo | Candidiasis, | | 2019 | | GASTROENTEROLOGY | MD [address] | esophageal (HCC) | | | | [address] | [address] | (Primary Dx) | | | | [address] [place] [address] | [place] [address] | | | | | [address] | [phone] | | | | | [phone] | | | +--------+ + + + [...] | + + | Candidiasis, esophageal (HCC) - Primary Candidiasis of the esophagus | + + documented in this encounter"
--- OUTSIDE RECORDS SUMMARY | ~2020-05-16 | XMS | Encounter Summary ---
Demographics + + + | Address | [address] | | | [place] [address] | + + + | Home Phone | | + + + | Preferred Language | Unknown | + + + | Marital Status | Single | + + + | Muslim Affiliation | 1013 | + + + [...] Team Providers + +------+ + | Care Low Pressure Boiler Operator Name | Role | Phone | + +------+ + | James Farmer MD | PCP | | + +------+ + Reason for Visit + +--------+ + | Reason | Onset | Comments | | | Date | | + +--------+ + | Lab Order | 08/19/ | | | | 2016 | | + +--------+ + Encounter Details +--------+ + + + + | Date | Type | Department | Care Team | Description | +--------+ + + + + | 08/19/ | Telephone | [facility] | James Farmer, | Lab Order | | 2016 | | MEDICINE [address] | [address] [facility] | | | | | [place], | [place] | | | | | [place] [address] | [address] | | | | | [phone] | | | +--------+ + + + [...] this encounter Miscellaneous Notes Telephone Encounter - Adalberto Vogel - 08/20/2017 10:51 AM PDTLeft message to patient jane huerta to wait until her appointment to have labs drawn. elephone Encounter - Ashlie Blevins LPN - 08/20/2017 9:47 AM PDTPer please advise she will need to wait until her office visit for this elephone Encounter - Ashlie Blevins LPN - 08/19/2017 3:[address] to [address] orders for her to have her electro lytes checked? elepho ne Encounter - Adalberto Vogel - 08/19/2017 3:27 PM PDTContact/Caller: Cherrie Contact Number: [phone] Provider/Nurse: Darian Reason for Call: Pt would like to know if blood test order could be put in to check her jose ctrolyte levels? Please advise. Last Appointment: 08/02/17 Next Appointment: 08/30/17 documented in this encoun ter Plan of Treatment Not on filedocumented as of this encounter Visit Diagnoses Not on filedocumented in this encounter"
--- OUTSIDE RECORDS SUMMARY | ~2020-05-16 | XMS | Encounter Summary ---
Demographics + + + | Address | [address] | | | [place] [address] | + + + | Home Phone | | + + + | Preferred Language | Unknown | + + + | Marital Status | Single | + + + | Muslim Affiliation | 1013 | + + + | Race | Unknown | + + + | Ethnic Group | Unknown | + + + Author + + + | Author | [facility] | | | and [place] | + + + | Organization | [facility] | | | [...] Team Providers + +------+ + | Care Compliance Examiner Name | Role | Phone | + +------+ + | James Farmer MD | PCP | | + +------+ + Reason for Visit + + + | Reason | Comments | + + + | Follow-up | 3 week | + + + | Results | barium swallow and esophagram | + + + | Depression | | + + + Encounter Details +--------+---------+ + + + | Date | Type | Department | Care Team | Description | +--------+---------+ + + + | 11/20/ | Office | [facility] | James Farmer, | Severe | | 2019 | Visit | MEDICINE [address] | [address] | protein-calorie | | | | [place], | [place] | malnutrition (HCC) | | | | [place] [address] | [id number] | (Primary Dx); | | | | [phone] | | Esophageal | | | | | | dysmotility; | | | | | | Pharyngoesophageal | | | | | | dysphagia; Tertiary | | | | | | contraction of | | | | | | esophagus | +--------+---------+ + + + Social History [...] + + + | Blood Pressure | 120/62 | 11/20/2019 3:55 PM | | | | | PST | | + + + + + | Pulse | 80 | 11/20/2019 3:55 PM | | | | | PST | | + + + + + | Temperature | 36.4 C (97.5 F) | 11/20/2019 3:55 PM | | | | | PST | | + + + + + | Respiratory Rate | 18 | 11/20/2019 3:55 PM | | | | | PST | | + + + + + | Oxygen Saturation | 99% | 11/20/2019 3:55 PM | | | | | PST | | + + + + + | Inhaled Oxygen | - | - | | | Concentration | | | | + + + + + | Weight | 75.4 kg (166 lb 3.6 | 11/20/2019 3:55 PM | | | | oz) | PST | | + + + + + | Height | - | - | | + + + + + | Body Mass Index | 29.45 | 09/05/2019 8:02 PM | | | | | PDT | | + + + + + documented in this encounter Progress Notes James Farmer MD - 11/20/2019 4:00 PM PSTFormatting of this note might be different f rom the original. Subjective: Patient ID: Cherrie Quijano is a 59 y.o. female. Chief Complaint Patient presents with Follow-up 3 week Results barium swallow and esophagram Depression HPI: 59-year-old male is here to follow-up. She has been having trouble swallowing. We di d an upper GI. 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 Th is is causing her to have trouble eating. She is down to soup again. We tried her on dicyc lomine we tried her on isosorbide. This is not made any difference on her swallowing diffic ulty. We went through the up-to-date on this condition. It looks like diltiazem is the pre ferred pharmacologic treatment of this condition. We will start her on 60 mg 4 times a day. Talk about the effects and side effects of this medication tickly dizziness. 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 new diagnosis so repeat egd in 1 year 08/2020 Depression with anxiety Dysphagia 06/16/2017 GERD (gastroesophageal reflux disease) Seizure (HCC) Wears partial dentures upper Past Surgical History: Procedure Laterality Date UPPER GASTROINTESTINAL ENDOSCOPY N/A 11/30/2017 Procedure: EGD; Surgeon: Loi Hui MD; Location: [facility] UPPER GASTROINTESTINAL ENDOSCOPY N/A 04/05/2019 Procedure: EGD; Surgeon: Loi Hui MD; Location: [facility] UPPER GASTROINTESTINAL ENDOSCOPY N/A 09/06/2019 Procedure: EGD; Surgeon: Rodriguez Gómez MD; Location: [facility] VEIN SURGERY Patient Active Problem List Diagnosis Date Noted POA GERD (gastroesophageal reflux disease) 11/30/2017 Unknown Priority: Medium 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 For an xiety, Disp: 30 tablet, Rfl: 2 Cyanocobalamin (B-12 PO), Take 1 tablet by mouth Daily., Disp: , Rfl: dilTIAZem (CARDIZEM) 60 mg tablet, Take 1 tablet by mouth 4 times daily., Disp: 120 ta blet, Rfl: 3 Ginkgo Biloba (GINKOBA PO), Take 1 capsule by mouth Daily., Disp: , Rfl: Multiple Vitamin (MULTI-VITAMIN PO), Take 1 tablet [...] Negative. Cardiovascular: Negative. Gastrointestinal: Positive for abdominal pain. Genitourinary: Negative. Musculoskeletal: Negative. Skin: Negative. Neurological: Negative. Endo/Heme/Allergies: Negative. Psychiatric/Behavioral: Negative. Objective: BP 120/62 | Pulse 80 | Temp 36.4 C (97.5 F) (Temporal) | Resp 18 | Wt 75.4 kg (166 lb 3.6 oz) | LMP (LMP Unknown) | SpO2 99% | No | BMI 29.45 kg/m Physical Exam General survey shows no [...] influences. Assessment/Plan: Cherrie was seen today for follow-up, results and depression. Diagnoses and all orders for this visit: Severe protein-calorie malnutrition (HCC) Esophageal dysmotility Pharyngoesophageal dysphagia Tertiary contraction of esophagus Other orders - dilTIAZem (CARDIZEM) 60 mg tablet; Take 1 tablet by mouth 4 times daily. . We will try her on diltiazem 60 mg 4 times a day if she gets symptomatic from this will decrease the frequency of this medication 2. She will follow-up with the manager intern No follow-ups on file. documented in this encounter Plan of Treatment Not on filedocumented as of this encounter Visit Diagnoses + + | Diagnosis | + + | Severe protein-calorie malnutrition (HCC) - Primary Other severe protein-calorie | | malnutrition | + + | Esophageal dysmotility Dyskinesia of esophagus | + + | Pharyngoesophageal dysphagia Dysphagia, pharyngoesophageal phase | + + | Tertiary contraction of esophagus | + + documented in this encounter"
--- OUTSIDE RECORDS SUMMARY | ~2020-05-16 | XMS | Encounter Summary ---
Demographics + + + | Address | [address] | | | [place] [address] | + + + | Home Phone | | + + + | Preferred Language | Unknown | + + + | Marital Status | Single | + + + | Restorationism Affiliation | [id number] | + + + | Race | Unknown | + + + | Ethnic Group | Unknown | + + + Author + + + | Author | [facility] | | | and [place] | + + + | Organization | [facility] | | [...] Team Providers + +------+ + | Care Social Sciences Professor Name | Role | Phone | + +------+ + | James Farmer MD | PCP | | + +------+ + Reason for Visit + + + | Reason | Comments | + + + | Oral Swelling | (room 2) | + + + Encounter Details +--------+ + + + + | Date | Type | Department | Care Team | Description | +--------+ + + + + | 03/23/ | Clinical | [facility] | [place], | Pharyngitis, | | 2019 | Support | [facility]ARE [address] | Kapil Beckwith MD | unspecified etiology | | | | [place] | [address] | (Primary Dx); | | | | [address] | [place] | Dysphagia, | | | | [phone] | [id number] | unspecified type | | | | [...] + + + | Blood Pressure | 160/91 | 03/23/2019 10:13 AM | | | | | PDT | | + + + + + | Pulse | 100 | 03/23/2019 10:13 AM | | | | | PDT | | + + + + + | Temperature | 37.6 C (99.7 F) | 03/23/2019 10:13 AM | | | | | PDT | | + + + + + | Respiratory Rate | 18 | 03/23/2019 10:13 AM | | | | | PDT | | + + + + + | Oxygen Saturation | 94% | 03/23/2019 10:13 AM | | | | | PDT | | + + + + + | Inhaled Oxygen | - | - | | | Concentration | | | | + + + + + | Weight | 88.7 kg (195 lb 8.8 | 03/23/2019 10:13 AM | | | | oz) | PDT | | + + + + + | Height | 157.5 cm (5' 2") | 03/23/2019 10:13 AM | | | | | PDT | | + + + + + | Body Mass Index | 35.77 | 03/23/2019 10:13 AM | | | | | PDT | | + + + + + documented in this encounter Patient Instructions Patient Instructions Kapil Winter MD - 03/23/2019 10:00 AM PDT Dysphagia (Adult) Dysphagia istrouble swallowing.If you have dysphagia, you may have symptoms that includ e: Choking or coughing when you eat or drink Food getting stuck Drooling Inability to swallow Pain behind the breastbone after swallowing Vomiting after you eat or drink Aspirating (inhaling into the lungs) foods or liquids when you swallow The main causes of dysphagia are problems that affect the mouth, throat or tongue. Dysphagi a may be caused by a problem with the esophagus (tube that carries food from the mouth to th e stomach). These include blockage, swelling, or irritation from acid reflux or injury. An i nfection of the esophagus or an allergic reaction in the esophagus can also cause dysphagia. Problems in the brain, such as a stroke or Parkinson's disease, can affect the muscles that coordinate swallowing. Dysphagia is treated by treating the cause. Your healthcare provider may evaluate you using X-ray, special esophagus monitors, a fiber optic evaluation of swallowing, or an upper endo scopy, which uses a thin, lighted tube sent through the mouth to the esophagus. You may be g iven medicine to reduce stomach acid or control muscle spasms. If the problem doesn't go tal y, a procedure can be done to widen (dilate) the esophagus.If you have muscle or nerve pro blems, you may be advised to see a speech or occupational therapist. He or shemay give you exercises and instructions to help make eating safer. If you have an infection or allergic condition, your healthcare provide will prescribe medicine for it. Home care To help ease the symptoms of dysphagia: Take any medicine you ve been given exactly as directed. Ask for liquid medicines if y ou need them. To make eating easier: ? Eat slowly. ? Eat in a relaxed setting. ? Don t talk while you eat. ? Take small bites. Chew slowly and completely before you swallow. ? Sit upright during and after meals. Chewing food releases enzymes in your mouth that star t the digestive process. Chew soft foods at least 5 to10 times. Chew more dense food (meats and vegetables) up to 30 times before swallowing. Count the number of times you chew until y ou get a sense of how soft the food needs to be before swallowing. ? Don't eat dry bread products or meat fibers. ? Puree solid foods if needed. Thicken liquids with milk, juice, broth, gravy, or starch to make them easier to swallow. ? Ask your healthcare provider if a liquid diet may be better for you. Follow-up care Follow up with your healthcare provider or as directed. Your healthcare provider can give y ou information about tests you may need. When to seek medical advice Call your healthcare provider right away for any of the following: Inability to keep down food or liquid Symptoms that get worse quickly Coughing that won't stop Continuing to lose weight Fever of 100.4F (38C) or higher, or as directed by your healthcare provider Other symptoms as indicated by your healthcare provider Call 911 Call 911 for any of the following: Trouble breathing Inability to talk Drooling, inability to control secretions Loss of consciousness Date Last Reviewed: 01/20/201819993017-0819 [employer]. [address] [place] [address], [place] [address]. All righ ts reserved. This information is not intended as a substitute for professional medical care. Always follow your healthcare professional's instructions. documented in this encounter Progress Notes Kapil Winter MD - 03/23/2019 10:00 AM PDTFormatting of this note might be di fferent from the original. Subjective: Chief Complaint: Oral Swelling ((room 2)) Cherrie is a 58 y.o. female who comes in complaining of sore throat and trouble swallowing. HPI this woman presents with 2- 3 day history of dry scratchy throat. She noted it was dif ficult to swallow solids and threw up her breakfast. After that it became tighter and she f elt like her throat was closing. She has not had fever. She has had some flare of seasonal allergies and tried to take some mozb-czj-haqbret antihistamines. 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 She notes that she has been under tr emendous stress due to being unemployed recently. Patient's medications, allergies, past medical, surgical, social and family histories were reviewed and updated as appropriate. ROS Above Objective: BP (!) 160/91 | Pulse 100 | Temp 37.6 C (99.7 F) (Temporal) | Resp 18 | Ht 1.575 m (5' 2") | Wt 88.7 kg (195 lb 8.8 oz) | SpO2 94% | BMI 35.77 kg/m Physical Exam NAD. Anxious. Vital signs as above. Head and neck sinuses nontender TMs normal the throat is mildly inflamed. There is a tonsi l stone on the right.. She is able to swallow normally there is no mass-effect or palpably increased tension in the muscles of deglutition.. Lungs are clear. Recent Results (from the past 24 hour(s)) Strep A DNA probe, NAAT Result Value Ref Range Group A Strep, DNA Negative Negative Assessment and Plans: 1. Pharyngitis, unspecified etiology This may be a viral infection or simply postnasal drip from allergies. I recommend garglin g this will help with a tonsil stone as well. She does not wish to take Magic mouthwash. - Strep A DNA probe, NAAT; Future - Strep A DNA probe, NAAT 2. Dysphagia, unspecified type Symptoms would suggest globus at this time as opposed to esophageal obstructive disease. I recommended that she try some Benadryl for relaxation and see her PCP for further evaluatio n as needed This note was dictated using [employer] voice recognition software. Occasional wrong- word or s ound-alike substitutions may have occurred due to the inherent limitations of voice recognit ion software. Please read the chart carefully and recognize, using context, where these subs titutions have occurred. Electronically signed by Kapil Winter MD at 12:24 PM PDTdocumented in this encounter Miscellaneous Notes Addendum Note - Kapil Winter MD - 03/23/2019 10:00 AM PDT Addended by: KAPIL ROJAS on: 03/23/2019 12:24 Modules accepted: Orders, Level of Service ddendum Note - Ivet Pichardo RN - 03/23/2019 10:00 AM PDT Addended by: IVET PICHARDO on: 03/23/2019 10:20 Modules accepted: Orders documented in th is encounter Plan of Treatment Not on filedocumented as of this encounter Procedures + +--------+ + + + | Procedure Name | Priori | Date/Time | Associated Diagnosis | Comments | | | ty | | | | + +--------+ + + + | STREP A DNA PROBE, | Routin | 03/23/2019 | Pharyngitis, | Results for this | | NAAT | e | 10:21 AM | unspecified etiology | procedure are in the | | | | PDT | | results section. | + +--------+ + + + documented in this encounter Results Strep A DNA probe, NAAT (03/23/2019 10:21 AM PDT) + + + + + + | Component | Value | Ref Range | Performed | Pathologist | | | | | At | Signature | + + + + + + | Group A | Negative | Negative | [facility] | | | Strep, DNA | | | [facility] | | | [facility] | | + + + + + + + + | Specimen | + + | Tissue - Specimen | | from throat | | (specimen) | + + + + + + + | Performing | Address | City/State/Zipcode | Phone Number | | Organization | | | | + + + + + | [facility] | [address] | [place] | [phone] | | [facility] | | [address] | | | [facility] | | | | + + + + + documented in this encounter Visit Diagnoses + + | Diagnosis | + + | Pharyngitis, unspecified etiology - Primary | + + | Dysphagia, unspecified type | + + documented in this encounter
--- OUTSIDE RECORDS SUMMARY | ~2020-05-16 | XMS | Encounter Summary ---
Demographics + + + | Address | [address] | | | [place] [address] | + + + | Home Phone [...] Providers + +------+ + | Care Senior Ux Designer Name | Role | Phone | + +------+ + | James Farmer MD | PCP | | + +------+ + Reason for Visit + +--------+ + | Reason | Onset | Comments | | | Date | | + +--------+ + | Referral | 12/09/ | | | | 2017 | | + +--------+ + Encounter Details +--------+ + + + + | Date | Type | Department | Care Team | Description | +--------+ + + + + | 12/09/ | Telephone | [facility] | James Farmer, | Referral | | 2017 | | MEDICINE [address] | | | | | [place], | [place] | | | | | [place] [address] | [address] | | | | | [phone] | | | +--------+ + + + [...] Notes Telephone Encounter - Adalberto Vogel - 12/09/2017 2:03 PM PSTAdvised patient of message. Patient stated she may go to the urgent care clinic to be re-evaluated because the previous provider who saw her is not currently available. Patient stated she will call office to let us know if she is indeed going to . elephone Encounter - Ashlie Blevins LPN - 12/09/2017 1:28 PM PSTPlease advis e per that he will need to see her in office first before ordering a CT.Electronically si gned by Ashlie Blevins LPN at 12/09/2017 1:29 PM PSTTelephone Encounter - Kerrie Huerta - 12/09/2017 12:01 PM PSTCherrie stated she was seen at urgent care for a sinus infection. pres cribed antibiotics which she completed on Wednesday. She still has extreme pressure in her fac e and is requesting an order for a CT of sinuses and a referral to an ENT. She stated that when she was at the urgent care these suggestions were made to her if the infection didn't clear after treatment. Please advise 12: 03 PM PSTdocumented in this encounter Plan of Treatment Not on filedocumented as of this encounter Visit Diagnoses Not on filedocumented in this encounter"
--- OUTSIDE RECORDS SUMMARY | ~2020-05-16 | XMS | Encounter Summary ---
Demographics + + + | Address | [address] | | | [place] [address] | + + + | Home Phone [...] | Author | [facility] | | | and [place] | + + + | Organization | [facility] | | | and [...] Team Providers + +------+ + | Care Wire Inspector Name | Role | Phone | [...] + + | Closed | Specialty | Neurology | Diagnoses | Sina Quiles | | | Services | | Dysphagia, | Josh | Neurology | | | Required | | unspecified | MD Jamie | [address] | | | | | type | [address] | [address] | | | | | | [facility] | [place], [place] | | | | | | [place], [place] | [address] | | | | | | [address] | Phone: | | | | | | Phone: | [phone] | | | | | | [phone] | Fax: | | | | | | Fax: | [phone] | | | | | | [phone] | | +--------+ + + + + + Reason for Visit + + + | Reason | Comments | + + + | Dysphagia | | + + + Encounter Details +--------+ + + + + | Date | Type | Department | Care Team | Description | +--------+ + + + + | 04/05/ | Emergency | [facility] | Josh Quiles | Medication side | 2019 | | [facility] | MD Jamie [address] | effect (Primary Dx); | | | | CENTER [address] | [address] [place] | Dysphagia, | | | | [place], [place] | [place] [address] | unspecified type | | | | [address] | [phone] | | | | | [phone] | | | +--------+ + + + [...] + + + | Blood Pressure | 102/78 | 04/05/2020 5:15 AM | | | | | PDT | | + + + + + | Pulse | 92 | 04/05/2020 7:22 AM | | | | | PDT | | + + + + + | Temperature | 36.7 C (98.1 F) | 04/05/2020 4:49 AM | | | | | PDT | | + + + + + | Respiratory Rate | 16 | 04/05/2020 7:22 AM | | | | | PDT | | + + + + + | Oxygen Saturation | 96% | 04/05/2020 7:22 AM | | | | | PDT | | + + + + + | Inhaled Oxygen | - | - | | | Concentration | | | | + + + + + | Weight | - | - | | + + + + + | Height | 162.6 cm (5' 4") | 04/05/2020 4:49 AM | | | | | PDT | | + + + + + | Body Mass Index | - | - | | + + + + + documented in this encounter Discharge Instructions AttachmentsThe following attachments cannot be sent through Care Everywhere.Reaction, Medic ine: Allergic ([place] Citizen)documented in this encounter Medications at Time of [...] Other | | | | | | lpyzbnldt-uldpepow-b | (swish and swallow). | | | | | | agnesium-simethicone | (RECIPE = 1:1:1 | | | | | | (MIRACLE MOUTHWASH) | mixture of Maalox, | | | | | | suspension | diphenhydrAMINE, | | | | | | | viscous lidocaine) | | | | | + + + +---------+ + + | EPINEPHrine | Inject 0.3 mLs into | 1 each | 0 | / | | | auto-injector 0.3 | the muscle as needed | | | 20 | | | mg/0.3 mL injection | for Anaphylaxis. | | | | | + + [...] +---------+ + + | diphenhydrAMINE | Take 1 tablet by | 15 | 0 | 04/05/20 | | | (BENADRYL) 25 mg | mouth every 8 hours | tablet | | 20 | 0 | | tablet | as needed for | | | | | | | Itching for up to 5 | | | | | | | days. | | | | | + + + +---------+ + + | famotidine | Take 1 tablet by | 10 | 0 | 04/05/20 | | | (PEPCID) 20 mg | mouth 2 times daily | tablet | | 20 | 0 | | tablet | for 5 days. | | | | | + [...] + + + +---------+ + + | predniSONE | Take 1 tablet by | 4 | 0 | 04/05/20 | | | (DELTASONE) 20 mg | mouth Daily for 4 | tablet | | 20 | 0 | | tablet | days. | | | | | + + + +---------+ + + documented as of this encounter ED Notes Josh Quiles MD - 04/05/2020 5:14 AM PDTFormatting of this note might be diff erent from the original. [facility] Ivis Quijano Emergency Department Encounter Note [address] [place] [id number] PCP:Rianna Farmer MD [phone] CHIEF COMPLAINT: Chief Complaint Patient presents with Dysphagia ED Room: ED01 HPI Ivis Quijaon is a 59 y.o. female who presents to the Emergency Department Patient presents for evaluation of dry mouth after starting a new medication of which this is a listed side effect. Noted starting yesterday evening and persisted. Does suffer from dysphagia chronically is followed by GI and her primary care office. No associated pain uyen st pain or shortness of breath. No other symptoms to report. Language line spanish interpreter/translator made available and used to collect historical details as needed. 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 Gait disorder 10/26/2019 Reduced mobility 10/09/2019 Weakness of both lower extremities 10/09/2019 Chronic bilateral low back pain without sciatica 06/02/2019 Impaired functional mobility, balance, gait, and endurance 06/02/2019 Unsteady gait 06/02/2019 Pharyngoesophageal dysphagia 04/04/2019 Note Last Updated: 04/04/2019 Added automatically from request for surgery [id number] Hematuria Benzodiazepine dependence ([facility]) 11/25/2017 Esophageal dysmotility 08/31/2017 Globus hystericus 08/31/2017 Thrombocytopenia ([facility]) 07/23/2017 Severe protein-calorie malnutrition ([facility]) 07/22/2017 Hyponatremia 07/21/2017 Note Last Updated: 11/30/2017: She was prepping for EGD/colonoscopy &developed hyponatremia; her presenting Na+ was 111. She received hypertonic saline and x8 hrs later was 120, up to [address] She received further IV fluids &ddAVP. At 48 hr christiano, her Na+ was 140. Seizure (HCC) 07/21/2017 Note Last Updated: 02/19/2020 Na was 111 - status epilepticus. Jun 2017 56 yof w/ a PMH of GERD [...] a post ictal state and her hyponatremia. Special screening for malignant neoplasms, colon 07/20/2017 Dysphagia 06/16/2017 Hiatal hernia with GERD 06/16/2017 Reflux esophagitis 05/14/2017 Conversion disorder 05/14/2017 Depression with anxiety Obesity, Class I, BMI 30-34.9 PERIMENOPAUSAL SYNDROME Note Last Updated: 08/24/2015 ICD-10 Record update FH DEPRESSION FH DIABETES FH STROKE Past Surgical History: Procedure Laterality Date ESOPHAGEAL DILATATION GASTRIC MANOMETRY N/A 01/31/2020 Procedure: MANOMETRY ESOPHAGEAL; Surgeon: Nishant Arceo MD; Location: [facility] GI MANOMETRY 02/05/2020 UPPER GASTROINTESTINAL ENDOSCOPY N/A 11/30/2017 Procedure: EGD; Surgeon: Loi Hui MD; Location: [facility] UPPER GASTROINTESTINAL ENDOSCOPY N/A 04/05/2019 Procedure: EGD; Surgeon: Loi Hui MD; Location: [facility] UPPER GASTROINTESTINAL ENDOSCOPY N/A 09/06/2019 Procedure: EGD; Surgeon: Rodriguez Gómez MD; Location: [facility] UPPER GASTROINTESTINAL ENDOSCOPY N/A 02/20/2020 Procedure: EGD; Surgeon: Nishant Arceo MD; Location: [facility] UPPER GASTROINTESTINAL ENDOSCOPY N/A 04/01/2020 Procedure: EGD W/ DILATATION- Botox; Surgeon: Nishant Arceo MD; Location: [facility] PROCED[facility] UN[facility] VEIN SURGERY CURRENT MEDICATIONS DOCUMENT REVIEW SPECIALIST Home Medications Medication Sig ascorbic acid (VITAMIN [...] ONE TABLET BY MOUTH FOUR TIMES DAILY diphenhydrAMINE-visc lqdjxjkgc-xlcrurbr-htfrjnwil-simethicone (MIRACLE MOUTHWASH) suspe nsion Take 5 mLs [...] PHYSICAL EXAM VITAL SIGNS: (first vital signs):Temp: 36.7 C (98.1 F) Pulse: 78 Resp: 20 SpO2: 96 % BP : 104/75 Body mass index is 28.65 kg/m. Constitutional: Well-appearing female patient. HEENT: Atraumatic, PERRL, Oropharynx benign. Neck: Supple with full range of motion. No JVD, no lymphadenopathy, no meningismus and no cervical spine tenderness to palpation or step-off noted. Chest: Good air movement bilaterally. No wheezes, No, rales. Cardiovascular: Normal S1 S2 Abdomen: Soft, nontender., no rebound, guarding, or masses., bowel tones normal. and no pu lsatile masses. Back: Within normal limits, no CVA tenderness and no midline thoracic or lumbar spinal tend erness Extremities: Nontender. No lower extremity edema, no calf asymmetry. Present distal pulse s. Skin: Warm, Dry, No rashes Neurologic: Alert & oriented. No focal deficits, Speech normal, gait not tested Psychiatric: Normal mood, affect and judgement. EKG 12-lead EKG shows no STEMI or acute arrhythmia LABS Results for orders placed or performed during the hospital encounter of 04/05/20 ECG 12 lead Result Value Ref Range INTERPRETATION TEXT Not Confirmed IMAGING STUDIES (X-Rays interpreted by ED Physician) The patients chest x ray was unremarkable for evidence of dissection, boerhaves syndrome, p neumonia, pneumothorax, or rib fracture. ED COURSE & MEDICAL DECISION MAKING Pertinent Labs & Imaging studies were reviewed along with EMS notes and care home record s if applicable. (See chart for details) Medications and Allergy list reviewed. Nurses note and old records were reviewed The patient was seen and examined, The patient was placed on the monitor and monitored. Screening labs are ordered and reveal no acute pathology. Most likely has experienced a medication side effect. It is treated with Solu-Medrol, Shirley dryl, and she does report anxiety and is therefore given a dose of Ativan. Symptoms resolved after initial therapy she started on a steroid burst, Benadryl, famotidin e and an EpiPen is made available. She is instructed to follow-up with her specialist. During ED course she states that she does require a referral to a neurologist per her speci alist for further workup of her chronic dysphasia in this referral is placed for her. The patient remained hemodynamically stable without evidence of shock or malperfusion durin g their ED course, at time of discharge patient is sitting/resting comfortably in no apparen t distress. The patient was counseled about their results and workup including all incidenta l findings and the need for out patient follow up to which they verbalized their understandi ng and were provided. The patient was counseled about the importance of medical recommendati ons today and the dangers including harm, , permanent injury, injury, morbidity, and mo rtality of non adherence to the treatment plan. They verbalize their understanding of today' s plan and agree with it. They were counseled that emergency services are available to them / and to return to the ED immediately if symptoms return, persist, change, worsen or new symptoms develop. The patient was given follow up. They were given further strict, thorough, actionable return precautions to which they verbalized their understanding. The patient's q uestions were answered and the patient agreed with the plan. The patient was discharged in g ood stable condition. Last Set of Vital Signs: Temp: 36.7 C (98.1 F) Pulse: 78 Resp: 20 SpO2: 96 % BP: 104/75 FINAL IMPRESSION ICD-10-CM ICD-9-CM 1. Medication side effect T88.7XXA 995.20 Follow-up Information [facility]. Call today. Specialty: Neurology Contact information: [address] [place] [address] Rianna Farmer MD. Specialty: Internal Medicine Contact information: [address] [facility] [address] Nishant Arceo MD. Call today. Specialty: Gastroenterology Contact information: [address] [facility] [address] New Prescriptions DIPHENHYDRAMINE (BENADRYL) 25 MG TABLET Take 1 tablet by mouth every 8 hours as needed for Itching for up to 5 days. EPINEPHRINE AUTO-INJECTOR 0.3 MG/0.3 ML INJECTION Inject 0.3 mLs into the muscle as nee ded for Anaphylaxis. FAMOTIDINE (PEPCID) 20 MG TABLET Take 1 tablet by mouth 2 times daily for 5 days. PREDNISONE (DELTASONE) 20 MG TABLET Take 1 tablet by mouth Daily for 4 days. Portions of this chart were created with [employer] voice recognition software. Inadvertent so und alike substitutions may be present and are unintentional Josh Quiles MD 04/05/20 0548 iercks, Donn rubalcava RN - 04/05/2020 4:50 AM PDTPt presents to ER for evaluation of concern of "medication reaction". PT shows no signs of hives, airway swelling, or dyspnea. Pt reports history of esophageal dilation and reports recently starting hycosamine sulfate for esophageal spasms. Pt presents tonight for: dry mouth, dysphagia. Pt denies any CP, SOB, fever, or chills. N o known sick contacts. documented in this e ncounter Plan of Treatment + +------+--------+ + + | Name | Type | Priori | Associated Diagnoses | Date/Time | | | | ty | | | + +------+--------+ + + | ED INFORMATION | [facility] | Routin | | 04/05/2020 4:43 AM | | EXCHANGE | | e | | PDT | + +------+--------+ + + + + +--------+ + + | Name | Type | Priori | Associated Diagnoses | Order Schedule | | | | ty | | | + + +--------+ + + | [facility] | Outpatient | Routin | Dysphagia, | Ordered: 04/05/2020 | | - AMB Referral | Referral | e | unspecified type | | + + +--------+ + + [...] + + | COMPREHENSIVE | STAT | 04/05/2020 [...] n - | | | | | 2019 | [...] | | | ON?05/ | | | 15/202 | | | 0 | | | 04:42? | | | THOMPS | | | ON, | | | IVIS | | | D?MRN: | | | | | | [id number] | | | [id number] | | | riteri | | | [...] 2020 | | | | | | [facility] | | | ED | | | Dispar | | | ity | | | Measur | | | e - | | | [facility] | | | has | | | [...] | | | s. | | | [facility] | | | | | | Health [...] | | | By: | | | [facility] | | | | | | Health [...] | | | MD | | | Curbstone Setter | | | al | | | [...] | +---+--------+ documented in this encounter Results Troponin I (04/05/2020 5:21 AM PDT) + + + + + [...] | | | | | | [employer] | | | | | [...] + | [facility] | [address] | [place] | [phone] | | [facility] | | [address] | | | - LABORATORY | | | | + + + + + Comprehensive Metabolic Panel (04/05/2020 5:21 AM PDT) + + + + + + | Component | Value | Ref Range | Performed | Pathologist | | | | | At | Signature | + + + + + + | Na | 136 | 136 - 145 | [facility] | | | | | mmol/L | [facility] | | | | | | MEDICAL | | | | | | CENTER - | | | | | | LABORATORY | | + + + + + + | K | 3.7 | 3.4 - 5.1 | [facility] | [...] + + + + | Glucose | 115 (H) | 60 - 106 mg/dL | [facility] | | | | | | [facility] | | | | | | MEDICAL | | | | | | CENTER - | | | | | | LABORATORY | | + + + + + + | BUN | 11 | 9 - 23 mg/dL | [facility] | | | | | | [facility] | | | | | | MEDICAL | | | | | | CENTER - | | | | | | LABORATORY | | + + + + + + | Creatinine | 0.82 | 0.55 - 1.02 | [facility] | [...] | | | FILTRATION | mL/min/1.73m2 | [facility] | | | [facility] | RATE,ESTIMATED | | MEDICAL | | | | mL/min/1.62b7Ncof than | | CENTER - | | [...] | 9.8 | 8.7 - 10.4 | [facility] | | | | | mg/dL | [facility] | | | | | | MEDICAL | | | | | | CENTER - | | | | | | LABORATORY | | + + + + + + | Albumin | 4.6 | 3.2 - 4.8 g/dL | [facility] | | | | | | [facility] | | | | | | [facility] | | | | | | CENTER - | | | | | | LABORATORY | | + + + + + + | Bilirubin | 0.5 | 0.3 - 1.2 mg/dL | [facility] | | | Total | | | [facility] | | | | | | MEDICAL | | | | | | CENTER - | | | | | | LABORATORY | | + + + + + + | Total | 7.3 | 5.7 - 8.2 g/dL | [facility] | | | Protein | | | [facility] | | | | | | MEDICAL | | | | | | CENTER - | | | | | | LABORATORY | | + + + + + + | AST | 21 | 0 - 34 U/L | [facility] | | | | | | [facility] | | | | | | MEDICAL | | | | | | CENTER - | | | | | | LABORATORY | | + + + + + + | ALT | 17 | 10 - 49 U/L | [facility] | | | | | | [facility] | | | | | | MEDICAL | | | | | | CENTER - | | | | | | LABORATORY | | + + + + + + | Alkaline | 113 | 46 - 116 U/L | [facility] [...] + + + + | BUN/Creatin | 13.4 | | [facility] | | | ine Ratio | | | [facility] | | [...] + + | [facility] | [address] | [place] | [phone] | | [facility] | | [address] | | | - LABORATORY | | | | + + + + + CBC with Differential (04/05/2020 5:21 AM PDT) + + + + + [...] + + + + | RBC | 4.32 | 3.70 - 5.20 | [facility] | | | | | M/uL | [facility] | | | | | | MEDICAL | | | | | | CENTER - | | | | | | LABORATORY | | + + + + + + | Hemoglobin | 12.2 | 11.5 - 16.0 | [facility] | | | | | g/dL | [facility] | | | | | | MEDICAL | | | | | | CENTER - | | | | | | LABORATORY | | + + + + + + | Hematocrit | 36.3 | 34.0 - 47.0 % | [facility] | | | | | | [facility] | | | | | | MEDICAL | | | | | | CENTER - | | | | | | LABORATORY | | + + + + + + | MCV | 84.0 | 83.0 - 101.0 fL | [facility] | | | | | | [facility] | | | | | | MEDICAL | | | | | | CENTER - | | | | | | LABORATORY | | + + + + + + | MCH | 28.2 | 28.0 - 35.0 pg | [facility] [...] + + + + | RDW-CV | 12.4 | <15.0 % | [facility] | | | | | | [facility] | | | | | | MEDICAL | | | | | | CENTER - | | | | | | LABORATORY | | + + + + + + | RDW-SD | 37.6 | 35.1 - 46.3 fL | [facility] | | | | | | [facility] | | | | | | MEDICAL | | | | | | CENTER - | | | | | | LABORATORY | | + + + + + + | Platelet | 243 | 140 - 440 K/uL | [facility] | | | Count | | | [facility] | | | | | | MEDICAL | | | | | | CENTER - | | | | | | LABORATORY | | + + + + + + | MPV | 9.0 | 6.5 - 12.4 fL | [facility] | | | | | | [facility] | | | | | | MEDICAL | | | | | | CENTER - | | | | | | LABORATORY | | + + + + + + | % | 73.6 | 45.0 - 82.0 % | [facility] | | | Neutrophils | | | [facility] | | | | | | MEDICAL | | | | | | CENTER - | | | | | | LABORATORY | | + + + + + + | % | 17.9 (L) | 20.0 - 45.0 % | [facility] | | | Lymphocytes | | | [facility] | | | | | | MEDICAL | | | | | | CENTER - | | | | | | LABORATORY | | + + + + + + | % Monocytes | 5.9 | 4.0 - 12.0 % | [facility] | | | | | | [facility] | | | | | | MEDICAL | | | | | | CENTER - | | | | | | LABORATORY | | + + + + + + | % | 1.1 | 0.0 - 5.0 % | [facility] [...] + + + + | Absolute | 4.73 | 1.80 - 8.50 | [facility] | | | Neutrophils | | K/uL | [facility] | | | | | | MEDICAL | | | | | | CENTER - | | | | | | LABORATORY | | + + + + + + | Absolute | 1.15 | 0.60 - 3.20 | [facility] | | | Lymphocytes | | K/uL | [facility] | | | | | | MEDICAL | | | | | | CENTER - | | | | | | LABORATORY | | + + + + + + | Absolute | 0.38 | 0.00 - 1.00 | [facility] | | | Monocytes | | K/uL | [facility] | | | | | | MEDICAL | | | | | | CENTER - | | | | | | LABORATORY | | + + + + + + | Absolute | 0.07 | 0.00 - 0.40 | [facility] | | | Eosinophils | | K/uL | [facility] | | | | | | MEDICAL | | | | | | CENTER - | | | | | | LABORATORY | | + + + + + + | Absolute | 0.08 | 0.00 - 0.10 | [facility] | [...] ST. | [address] | [place] | [phone] | | [facility] | | [address] | | | - LABORATORY | | | | + + + + + XR Chest AP Portable (04/05/2020 5:16 AM PDT) + + | Specimen | + + | | + + + + + | Impressions | Performed At | + + + | 1. POTENTIAL HIATUS HERNIA. 2. 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 3. SCOLIOSIS. Dictated and Signed by: Ky Andino | | MD Tomi Electronically signed: 04/05/2020 [...] + +---------+ + + ECG 12 lead (04/05/2020 5:10 AM PDT) + + + + + [...] + + + + | P-R | 146 | ms | [facility] | | | INTERVAL | | | | | + + + + + + | QRS | 80 | ms | [facility] | | | DURATION | | | | | + + + + + + | Q-T | 402 | ms | [facility] | | | INTERVAL | | | | | + + + + + + | Q-T | 436 | ms | [facility] | | | INTERVAL | | | | | | (CORRECTED) | | | | | + + + + + + | P WAVE AXIS | 55 | degrees | [facility] | | + + + + + + | QRS AXIS | 10 | degrees | [facility] | | + + + + + + | T AXIS | 30 | degrees | [facility] | | + + + + + + | INTERPRETAT | Sinus rhythm with | | [facility] | | | ION TEXT | premature ventricular | | | | | | complexRSR' pattern in | | | | | | V1 suggests right | | | | | | ventricular conduction | | | | | | delayWhen compared with | | | | | | ECG of 31-MAR-2020 | | | | | | 15:06,No significant | | | | | | change was | | | | | | foundConfirmed by | | | | | | VIRGIE MAXWELL MD ([id number]) | | | | | | on 04/06/2020 7:27:46 AM | | | | + + [...] + | Diagnosis | + + | Medication side effect - Primary Unspecified adverse effect of unspecified drug, | | medicinal and biological substance | + + | Dysphagia, unspecified type | + + documented in this encounter Administered Medications + +--------+ +-------+------+ + | Medication Order | MAR | Action | Dose | Rate | Site | | | Action | Date | | | | + +--------+ +-------+------+ + | diphenhydrAMINE (BENADRYL) | Given | 04/05/20 | 25 mg | | Leg-Righ | | injection 25 mg 25 mg, | | 20 5:18 | | | t Upper | | Intramuscular, ONCE, 04/05/20 | | AM PDT | | | | | at 0505, For 1 dose, Compatible | | | | | | | with Lorazepam in same syringe., | | | | | | + +--------+ +-------+------+ + +---+---+ | | | +---+---+ + +-------+ +------+---+ + | LORazepam (ATIVAN) injection 1 | Given | 04/05/20 | 1 mg | | [facility]igh | | mg 1 mg, Intramuscular, ONCE, | | 20 5:17 | | | t Upper | | 04/05/20 at 0505, For 1 dose, | | AM PDT | | | | | Compatible with Diphenhydramine | | | | | | | in same syringe., , | | | | | | + +-------+ +------+---+ + +---+---+ | | | +---+---+ + +-------+ +---------+---+---+ | methylPREDNISolone sodium | Given | 04/05/20 | 62.5 mg | | | | succinate (solu-MEDROL) 62.5 | | 20 5:19 | | | | | mg/mL injection 62.5 mg 62.5 mg, | | AM PDT | | | | | Intravenous, ONCE, 04/05/20 | | | | | | | at 0505, For 1 dose, Mix with 2 | | | | | | | mL provided diluent to make 62.5 | | | | | | | mg/mL., | | | | | | + +-------+ +---------+---+---+ +---+---+ | | | +---+---+ documented in this encounter
--- OUTSIDE RECORDS SUMMARY | ~2020-05-16 | XMS | Encounter Summary ---
Demographics + + + | Address | [address] | | | [place] [address] | + + + | Home Phone | | + + + | Preferred Language | Unknown | + + + | Marital Status | Single | + + + | Baptism Affiliation | 1013 | + + + [...] | + + +---------+ + | Zahira Vargas | ECON | Unknown | | + + +---------+ + Care Team Providers + +------+ + | Care Aircraft Refueller Name | Role | Phone | + +------+ + | No, Physician | PCP | Unavailable | + +------+ + Reason for Visit + + + | Reason | Comments | + + + | New Patient | Swallowing problems. Feels like throat is tightening. Started March | | | . | + + + Evaluate & Treat (Urgent) +--------+ + + + + + | Status | Reason | Specialty | Diagnoses / | Referred By | Referred To | | | | | Procedures | Contact | Contact | +--------+ + + + + + | Closed | Specialty | Otolaryngolog | Diagnoses | | Luis Fox | | | Services | y | | [place] | MD Jeancarlos [address] | | | Required | | Oropharyngea | , Meng Smith MD | [address] | | | | | l dysphagia | [address] | | | | | | [address] [place] | [place], | | | | | | [place], [place] | [place] [address] | | | | | | [address] | Phone: | | | | | | Phone: | [phone] | | | | | | [phone] | Fax: | | | | | | Fax: | [phone] | | | | | | [phone] | | +--------+ + + + + + Encounter Details +--------+---------+ + + + | Date | Type | Department | Care Team | Description | +--------+---------+ + + + | 05/12/ | Office | [facility] | Meng Talley | Conversion disorder | | 2017 | Visit | OTOLARYNGOLOGY [address] | MD Sarah [address] | (Primary Dx); | | | | [address] | [address] [place], [place] | Gastroesophageal | | | | [place], [place] | [address] | reflux disease with | | | | [address] | | esophagitis | | | | [phone] | Luis Fox MD | | | | | | [address] [place] | | | | | | [address] [place], | | | | | | [place] [address] | | | | | | [phone] | | | | | | | [...] + + + | Blood Pressure | - | - | | + + + + + | Pulse | 79 | 05/12/2017 8:30 AM | | | | | PDT | | + + + + + | Temperature | - | - | | + + + + + | Respiratory Rate | - | - | | + + + + + | Oxygen Saturation | 97% | 05/12/2017 8:30 AM | | | | | PDT | | + + + + + | Inhaled Oxygen | - | - | | | Concentration | | | | + + + + + | Weight | 85.7 kg (189 lb) | 05/12/2017 8:30 AM | | | | | PDT | | + + + + + | Height | 162.6 cm (5' 4") | 05/12/2017 8:30 AM | | | | | PDT | | + + + + + | Body Mass Index | 32.44 | 05/12/2017 8:30 AM | | | | | PDT | | + + + + + documented in this encounter Progress Notes Luis Fox MD - 05/12/2017 9:06 AM PDT [facility] OTOLARYNGOLOGY [address] [facility] [address] OFFICE NOTE LUIS FOX MD Patient: IVIS VARGAS Admitting: MR #: [id number] LOC: PT TYPE: Adm Date: 05/12/2017 : 1960 NEW PATIENT VISIT DATE OF VISIT: 05/12/2017 The patient comes in with the complaint of difficulty with swallowing. It started rather s uddenly near the end of March of this year. Since then, she has been very nervous about swal lowing food. She feels like there is always this pressure in the throat area. She had a b arium swallow. It showed that she does have evidence of reflux. There was no evidence of any tumor or mass or stricture. There was some irritation of the lower esophageal tissue, of which she has been scheduled to have an endoscopy. The patient comes in to have the up per throat area examined to be sure there are no other problems at the current time. She t ook Prilosec twice a day for 1 week and then went to taking it once a day. She felt maybe this has helped slightly, but she is still very nervous about eating any food because of th e feeling she gets in her throat and she is scared she might choke. PHYSICAL EXAMINATION: GENERAL: Shows a 56-year-old female patient. She is communicating well. Her voice quali ty is good. HEENT: Skin of the face, nose, and ears all appeared to be smooth and healthy. Ear canal s are open and clean. Drums appear healthy. Nasal passages: A mild nasal septal deformit y towards the right hand side. No mass or lesions seen on either side. The left side of th e nose was then sprayed well with some Harrison-Synephrine and topical Xylocaine. Floor of the mouth, buccal mucosa, hard palate, teeth, lips, gums are healthy. No mass seen in the orop harynx and posterior pharyngeal wall is smooth. Tongue and soft palate are smooth and move symmetrically. NECK: There are no masses or lymphadenopathy. Thyroid area was smooth. Tr achea is midline. Good range of motion of the neck without any pain or discomfort noted. Special procedure was then carried out. Fiberoptic scope was used. It was passed through the left nasal passage without difficulty. No mass or lesion in this passage or in the na sopharynx. Rosenmuller's fossae are open and clear. Eustachian tube openings appear healt hy. Posterior and lateral pharyngeal sosa: There is no mass or lesion or abnormality no yossi. Base of tongue, vallecula, epiglottis, no mass or lesion or thrush or infection. Her vocal cords are smooth. They move symmetrically. There was no evidence of any mass or le rohit in this laryngeal area. Some excessive tissue in the arytenoid area, but it is not r ed or inflamed. Piriform sinuses are smooth and normal appearing. The scope is then remove d. IMPRESSION: Probable conversion disorder in a patient with gastroesophageal reflux diseas e. PLAN: I have advised the patient to go up to [facility] twice a day. She is given a prescr iption of Xanax 0.25 mg. She will take 1/2 in the morning and 1/2 midday and a full tablet at night. She will be re-seen again in 1 months' time. Discussion was carried out with t anisa patient. Very typically, this is an overactive vagus nerve and this is why the Xanax is being used. LUIS FOX MD Dictated by LUIS FOX MD 05/12/2017 09:06:10 Transcribed on 05/13/2017 05:17:13 by shamir job# [id number] Confirmation #: [id number] signed by Luis Fox MD at 05/13/2017 9:17 AM PDTM Luis young MD - 05/12/2017 8:45 AM PDTSee dictation #[id number] signed by Luis Fox MD at 05/12/2017 9:08 AM PDTdocumented in this encounter Plan of Treatment + + +--------+ + + | Name | Type | Priori | Associated Diagnoses | Order Schedule | | | | ty | | | + + +--------+ + + | * [facility] [place] | Outpatient | [facility] | Oropharyngeal | Ordered: 05/08/2017 | | Otolaryngology - AMB | Referral | | dysphagia | | | Referral | | | | | + + +--------+ + + documented as of this encounter Visit Diagnoses + + | Diagnosis | + + | Conversion disorder - Primary | + + | Gastroesophageal reflux disease with esophagitis | + + documented in this encounter
--- OUTSIDE RECORDS SUMMARY | ~2020-05-16 | XMS | Encounter Summary ---
Demographics + + + | Address | [address] | | | [place] [address] | + + + | Home Phone [...] Team Providers + +------+ + | Care Receiving Supervisor Name | Role | Phone | + +------+ + | James Farmer MD | PCP | | + +------+ + Reason for Visit + +--------+ + | Reason | Onset | Comments | | | Date | | + +--------+ + | Medication Question | 11/13/ | | | | 2018 | | + +--------+ + Encounter Details +--------+ + + + + | Date | Type | Department | Care Team | Description | +--------+ + + + + | 11/13/ | Telephone | [facility] | James Farmer, | Medication Question | | 2018 | | [address] | MD Juanita FUNK | | | | | [place], | [place] | | | | | [place] [address] | [address] | | | | | [phone] | | | +--------+ + + + [...] this encounter Miscellaneous Notes Telephone Encounter - Tamara Turk - 11/13/2019 11:30 AM PSTPatient called states she needs her medication Dycyclomine 10mg/5 ml changed if possible to tablets instead of Li quid. Please call her at [phone].Electronically signed by Tamara Mina at 10/23 11:32 AM PSTdocumented in this encounter Plan of Treatment Not on filedocumented as of this encounter Visit Diagnoses Not on filedocumented in this encounter"
--- OUTSIDE RECORDS SUMMARY | ~2020-05-16 | XMS | Encounter Summary ---
Demographics + + + | Address | [address] | | | [place] [address] | + + + | Home Phone | | + + + | Preferred Language | Unknown | + + + | Marital Status | Single | + + + | Roman Catholic Affiliation | 1013 | + + + [...] Team Providers + +------+ + | Care Molder Machine Name | Role | Phone | + +------+ + | James Farmer MD | PCP | | + +------+ + Encounter Details +--------+ + + + + | Date | Type | Department | Care Team | Description | +--------+ + + + + | 10/27/ | Episode | [facility] [place] | Zarina Ramon, | | | 2016 | Changes | GASTROENTEROLOGY | RN | | | | | [address] [place] | | | | | | [address] [place] | | | | | | [address] | | | | | | [phone] | | | +--------+ + + + [...]
--- OUTSIDE RECORDS SUMMARY | ~2020-05-16 | XMS | Encounter Summary ---
Demographics + + + | Address | [address] | | | [place] [address] | + + + | Home Phone | | + + + | Preferred Language | Unknown | + + + | Marital Status | Single | + + + | Rastafari Affiliation | 1013 | + + + [...] Team Providers + +------+ + | Care Middle School Guidance Counselor Name | Role | Phone | + +------+ + | James Farmer MD | PCP | | + +------+ + Reason for Visit + +--------+ + | Reason | Onset | Comments | | | Date | | + +--------+ + | Referral | 03/28/ | | | | 2019 | | + +--------+ + | LABS | 03/28/ | | | | 2019 | | + +--------+ + Encounter Details +--------+ + + + + | Date | Type | Department | Care Team | Description | +--------+ + + + + | 03/28/ | Telephone | [facility] | James Farmer, | Referral; LABS | | 2019 | | [facility] [address] | MD Juanita FUNK | | | | | [place], | [place] | | | | | [place] [address] | [address] | | | | | [phone] | | | +--------+ + + + [...] this encounter Miscellaneous Notes Telephone Encounter - Maria Guadalupe Martel - 04/03/2020 9:57 AM PDTPatient scheduled for with call center. TTelephone Encounter - Maria Guadalupe Martel - 04/02/2020 1:42 PM PDTPatient will call back t o schedule on 04/19/20 at 3:15 if still available. elephone Encounter - Ashlie Blevins LPN - 04/02/2020 1:34 PM PDTPatient needs to schedule the office visit it does not appear there is room at 315 on April 09. elephone Encount er - Maria Guadalupe Martel - 04/02/2020 1:29 PM PDTSpoke with patient states she will see if her sister can accompanion her on 04/09/20 for 3:15 pm if still available.Electronically sign ed by Maria Guadalupe Martel at 04/02/2020 1:30 PM PDTTelephone Encounter - Ashlie Blevins LP N - 04/02/2020 1:05 PM PDTPlease call and advise per doctors request that she will need an office visit to discuss referrals and she needs a 30 minute appt per his request as well.Apryl ctronically signed by Ashlie Blevins LPN at 04/02/2020 1:06 PM PDTTelephone Encounter - Ashlie Cho LPN - 03/28/2020 1:30 PM PDTReturned call to patient and she is asking if he r issues with mobility could need the attention of a neurologist? If so she would like for y ou to do a referral for her to see one. I advised that we would like have to see her in offi ce but she states she would like th message sent to you. Advised you were out of the office until Wednesday but she still insists on the message. Please advise elephone Encounter - Ashlie Blevins LPN - 05/2020 1:09 PM PDTReturned call and no answer. Went to voice mail advised that she would n wendy to return my call and if not available if she will leave some more detail I will be able to assist her a bit faster. elephone Encounter - Maci Grider - 03/28/2020 10:56 AM PDTPatient would like to speak to the nurse.Patient has question on a referral and lab work. Please adviseEbritney rogers signed by Maci Grider at 03/28/2020 10:59 AM PDTdocumented in this encounter Plan of [...]
--- OUTSIDE RECORDS SUMMARY | ~2020-05-16 | XMS | Encounter Summary ---
Demographics + + + | Address | [address] | | | [place] [address] | + + + | Home Phone [...] Team Providers + +------+ + | Care Aquaculture Worker Name | Role | Phone | + +------+ + | No, Physician | PCP | Unavailable | + +------+ + Encounter Details +--------+ + + + + | Date | Type | Department | Care Team | Description | +--------+ + + + + | 06/14/ | Abstract | [facility] [place] | Luis Escobar MD | | | 2017 | | OTOLARYNGOLOGY [address] | [address] [place] | | | | | [address] [place] [address] | [address] [place], | | | | | [place], [place] | [place] [address] | | | | | [address] | [phone] | | | | | [phone] | | | +--------+ + + + [...]
--- OUTSIDE RECORDS SUMMARY | ~2020-05-16 | XMS | Encounter Summary ---
Demographics + + + | Address | [address] | | | [place] [address] | + + + | Home Phone [...] Team Providers + +------+ + | Care Quitline Counselor Name | Role | Phone | + +------+ + | No, Physician | PCP | Unavailable | + +------+ + Reason for Visit + +--------+ + | Reason | Onset | Comments | | | Date | | + +--------+ + | Results, Imaging | 04/28/ | | | | 2016 | | + +--------+ + Encounter Details +--------+ + + + + | Date | Type | Department | Care Team | Description | +--------+ + + + + | 04/28/ | Telephone | [facility] | Rodriguez Pena, | Results, Imaging | | 2016 | | CARE [address] | MD [address] | | | | | [place] | [place] | | | | | [address] | [address] | | | | | [phone] | | | +--------+ + + + [...] this encounter Miscellaneous Notes Telephone Encounter - BoardBridgett Cert MA - 04/28/2017 1:54 PM PDTCalled pt and notifie d her of note and she will come back in for follow up. elephone Mario moncada - Suleiman Souza MD - 04/28/2017 1:23 PM PDTIt is okay to notify patient that her swallo wing function test did not show any obstruction, but there were some minor abnormalities shonda t should be discussed with her. Dr. Pena instructions to her were that she should return to discuss x-ray findings, and I would still advise that. elephone Encounter - Bridgett Galdamez Cert MA - 04/28/2017 11:17 AM PDTPt called and is wanting the results of her barium swallow she had done yesterd ay. Please advise. documented in this encounter Plan of Treatment Not on filedocumented as of this encounter Visit Diagnoses Not on filedocumented in this encounter"
--- OUTSIDE RECORDS SUMMARY | ~2020-05-16 | XMS | Encounter Summary ---
Demographics + + + | Address | [address] | | | [place] [address] | + + + | Home Phone | | + + + | Preferred Language | Unknown | + + + | Marital Status | Single | + + + | Sabianism Affiliation | 1013 | + + + [...] Team Providers + +------+ + | Care Military Nurse Name | Role | Phone | [...] Description | +--------+--------+ + + + | 04/12/ | Refill | [facility] | Moy, | Medication Refill | | 2019 | | CARE [address] | Kapil Beckwith MD | | | | | [place] | [address] | | | | | [address] | [place] | | | | | [phone] | [address] | | | | | [...]
--- OUTSIDE RECORDS SUMMARY | ~2020-05-16 | XMS | Encounter Summary ---
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 | Role | Phone | + +------+ + | No, Physician | PCP | Unavailable | + +------+ + Reason for Visit + + + | Reason | Comments | + + + | Seizure (Adult - New | | | Onset) | | + + + Encounter Details +--------+ + + + + | Date | Type | Department | Care Team | Description | +--------+ + + + + | 07/21/ | Emergency | [facility] | Meng Serrano, | Status epilepticus | | 2017 | | [facility] | MD [address] | ([facility]) (Primary Dx); | | | | [place] [address] | [facility] | Hyponatremia; | | | | [place] | [place] [address] | Hypomagnesemia | | | | [address] | [phone] | | | | | [phone] | | | +--------+ + + + [...] + + + | Blood Pressure | 100/74 | 07/21/2017 5:58 AM | | | | | PDT | | + + + + + | Pulse | 86 | 07/21/2017 7:54 AM | | | | | PDT | | + + + + + | Temperature | - | - | | + + + + + | Respiratory Rate | 26 | 07/21/2017 7:54 AM | | | | | PDT | | + + + + + | Oxygen Saturation | 95% | 07/21/2017 6:13 AM | | | | | PDT | | + + + + + | Inhaled Oxygen | - | - | | | Concentration | | | | + + + + + | Weight | 81.6 kg (180 lb) | 07/21/2017 3:23 AM | | | | | PDT | | + + + + + | Height | - | - | | + + + + + | Body Mass Index | 30.9 | 06/10/2017 7:56 AM | | | [...] + + + +---------+ + + | ondansetron | Take 1 tablet by | 2 | 0 | 06/16/20 | | | (ZOFRAN) 4 mg tablet | mouth See Admin | tablet | | 17 | 7 | | | Instructions. If | | | | | | | nausea with prep. | | | | | | | Stop prep, take 1 | | | | | | | tab by mouth,wait 30 | | | | | | | min, restart prep | | | | | | | may repeat | | | | | + + + +---------+ + + | sodium | Take 177 mLs by | 2 | 0 | 06/16/20 | | | sulfate-potassium | mouth See Admin | Bottle | | 17 | 7 | | sulfate-magnesium | Instructions. Take | | | | | | sulfate (SUPREP | one kit, first dose | | | | | | BOWEL PREP KIT) oral | at 4pm July 20, | | | | | | | second dose at 9pm | | | | | | solutionIndications: | July 20. | | | | | | Special screening | | | | | | | for malignant | | | | | | | neoplasms, colon | | | | | | + + + +---------+ + + | UNKNOWN TO PATIENT | Take 1 capsule by | | 0 | | | | | mouth nightly as | | | | 7 | | | needed. Leg Cramp | | | | | | | Supplement | | | | | + + + +---------+ + + documented as of this encounter ED Notes Aquiles Oseguera MD - 07/21/2017 7:24 AM PDTPatient signed out about going emergency physician. Please review their note for history and physical examination. Patient remained stable with no further seizure activity since I have assumed care. Sodium is improved to 114 . I discussed patient with on-call physician at [facility] who agrees to ac cept the patient in transfer. Patient is protecting her airway, hemodynamically stable, and with no further seizures. No further hypertonic saline infusion is indicated at this time. Aquiles Oseguera MD 07/21/17 0725 Berna Fox RN - 07/21/2017 6:02 AM PDTPt incontinent of urine and watery stool. Pt cleaned and rep ositioned. Enmanuel Irizarry MD - 07/21/2017 3:22 AM PDTFormatting of this note might be different from the or iginal. [facility] Ivis Quijano Emergency Department Encounter Note [address] [place] [id number] PCP:No Physician on file [phone] CHIEF COMPLAINT Chief Complaint Patient presents with Seizure (Adult - New Onset) HPI Ivis Quijano is a 56 y.o. female who presents to the emergency department with seizu re like episode. This patient was undergoing a bowel prep for a planned endoscopy procedure today. When she was in the bathroom she called out to her . He went into the bathr oom and found her having a seizure. Paramedics were called. They noted that she seemed bew ildered and kind of grasping at things. She then had a 1 minute episode where she had archi ng and stiffening that medics described as a seizure. Once again this was followed by a bew ildered non-directable state where she was moving all 4 extremities but not purposeful. No apparent vomiting. She did not bite her tongue. She has been having trouble with swallowin g recently. She was undergoing GI evaluation as part of that workup. She had already seen an ENT doctor about it. She is accompanied by her who is providing most of the hist ory. PAST MEDICAL HISTORY Past Medical History: Diagnosis Date Anxiety Depression Dysphagia 04/21/2017 GERD (gastroesophageal reflux disease) SURGICAL HISTORY Past Surgical History: Procedure Laterality Date VEIN SURGERY CURRENT MEDICATIONS Previous Medications ALPRAZOLAM (XANAX) 0.25 MG TABLET Take 0.25 mg by mouth 3 times daily as needed for Anx iety. 1/2 tablet in the morning, 1/2 tablet midday and full tablet at night BLACK COHOSH 200 MG CAPS Take 200 mg by mouth Daily. CHOLECALCIFEROL (VITAMIN D3 PO) CAPS, take 5000 units daily by mouth OMEPRAZOLE (PRILOSEC) 20 MG CAPSULE Take 1 capsule by mouth 2 times daily (before meals ). 30 minutes before breakfast and dinner. ONDANSETRON (ZOFRAN) 4 MG TABLET Take 1 tablet by mouth See Admin Instructions. If naus ea with prep. Stop prep, take 1 tab by mouth,wait 30 min, restart prep may repeat SODIUM SULFATE-POTASSIUM SULFATE-MAGNESIUM SULFATE (SUPREP BOWEL PREP KIT) ORAL SOLUTION Take 177 mLs by mouth See Admin Instructions. Take one kit, first dose at 4pm July 20, s econd dose at 9pm July 20. UNKNOWN TO PATIENT Take 1 capsule by mouth nightly as needed. Leg Cramp Supplement ALLERGIES No Known Allergies FAMILY HISTORY Family History Problem Relation Age of Onset Family history unknown: Yes SOCIAL HISTORY Social History Social History Marital status: Single Spouse name: N/A Number of children: N/A Years of education: N/A Social History Main Topics Smoking status: Former Smoker Types: Cigarettes Smokeless tobacco: Never Used Comment: smoked socially when she drank Alcohol use No Drug use: No Sexual activity: Not on file Other Topics Concern Not on file Social History Narrative No narrative on file REVIEW OF SYSTEMS All systems reviewed and found negative except what is in the HPI PHYSICAL EXAM VITAL SIGNS: There were no vitals taken for this visit. Constitutional: Well developed, obese, No acute distress, Non-toxic appearance. She is un able to provide her own history HENT: Normocephalic, Atraumatic, Bilateral external ears normal, Tympanic membranes normal , Mucous membranes are moist, Nasal mucosa is normal. Eyes: PERRL, Conjunctiva normal, No discharge. Palpebral conjunctiva are pink. No scleral icterus. Neck: Normal range of motion, No tenderness, Supple, No stridor. Respiratory: Clear to auscultation bilaterally, No respiratory distress, No wheezing Chest: Non tender, no signs of trauma Cardiovascular: Normal heart rate, Normal rhythm GI: Soft, Non tenderness, No peritoneal signs, No masses Extremities: Warm and well perfused, no edema, no joint swelling or deformity. Good ROM. Back: No CVAT, No tenderness of the thoracic or lumbar spine. Skin: Pale, Warm, Dry, No erythema, No induration, No rash. No jaundice. Neurologic: Awake. Moves all 4 extremities but not purposeful. She reaches out with her arms randomly and appears to be grabbing things. She is not following commands. EKG Twelve-lead EKG shows normal sinus rhythm with PACs. Ventricular rate is [address] progression. No pathologic Q waves. No acute ST elevation or depression. NM interval is 140. QRS duration is 82. QT corrected is 393. This is a nonspecific abnormal EKG. RADIOLOGY Head CT: pending CRITICAL CARE 75 minutes of critical care time was spent with this patient managing her status epilepticu s and severe hyponatremia. ED COURSE & MEDICAL DECISION MAKING Pertinent Labs & Imaging studies reviewed. (See chart for details) The patient was seen and examined shortly after arriving in the emergency department. Hist ory and physical were obtained, vital signs were noted. The patient had a tonic-clonic gran d mal seizure here in the ER shortly after she arrived. That makes 3 seizures without recov ering from the postictal phase between, status epilepticus. When she arrived in the ER she was given a milligram of Ativan IV. She had the witnessed ER seizure after that. I gave he r a second milligram of Ativan and ordered a Keppra load. She has no history of seizures ac cording to her . She was undergoing a GI bowel prep for planned endoscopy later toda y. Blood sugar was 190 in the field. The seizure she had here she was clenched with her ja w biting her tongue and became blue in the face. The seizure was dominated by tonic more th an clonic movements. Shortly after that her sodium came back from the lab at 111. I prompt ly ordered 100 ML's of 3% saline. Her magnesium is low and I ordered IV piggyback magnesium as well. The hyponatremia was identified before the Keppra was started so I cancelled it. Her sodium only went up to 112. 100 mls of 3% sodium was repeated. She is more alert but still is encephalopathic. VBG shows a normal pH. After the second hypertonic saline infusi on the sodium was rechecked. There are no beds available here, or in the [facility], and [facility] going to call back but they think they are full. Likely we will need to talk to [facility] in [place]. Care to Dr Helm at change of shift. FINAL IMPRESSION 1. Status epilepticus (HCC) 2. Hyponatremia 3. Hypomagnesemia PLAN Transfer Meng Serrano MD 07/21/17 0700 Negrito Snyder R N - 07/21/2017 3:17 AM PDTPt presents to the er co altered loc and new onset seizures tonig ht. Pt was prepping for a colonoscopy tomorrow. Pt went in to have a BM this am . pt's so sts that he heard her moan. He went into see her and she was slumped over. pt's so then s ts he witnessed a seizure lasting about a min. Medics arrived and witnessed another seizure lasting about a min. P DTdocumented in this encounter Plan of Treatment + +------+--------+ + + | Name | Type | Priori | Associated Diagnoses | Date/Time | | | | ty | | | + +------+--------+ + + | ED INFORMATION | [facility] | Routin | | 07/21/2017 3:17 AM | | EXCHANGE | | e [...] for this | | PANEL | | 6:49 AM | | procedure are in the | | | | PDT | | results section. | + +--------+ + + + | URINALYSIS WITH | STAT | 07/21/2017 | | Results for this | | MICROSCOPIC WITH | | 6:19 AM | | procedure are in the | | CULTURE IF INDICATED | | PDT | | results section. | + +--------+ + + + | SODIUM, URINE, | STAT | 07/21/2017 | | Results for this | | RANDOM | | 6:19 AM | | procedure are in the | | | | PDT | | results section. | + +--------+ + + + | OSMOLALITY, URINE | STAT | 07/21/2017 | | Results for this | | | | 6:19 AM | | procedure are in the | | | | PDT | | results section. | + +--------+ + + + | DRUGS OF ABUSE, | STAT | 07/21/2017 | | Results for this | | SCREEN, URINE | | 6:19 AM | | procedure are in the | | | | PDT | | results section. | + +--------+ + + + | POC BLOOD GASES | Routin | 07/21/2017 | | Results for this | | | e | 6:01 AM | | procedure are in the | | | | PDT | | results section. | + +--------+ + + + | BASIC METABOLIC | STAT | 07/21/2017 | | Results for this | | PANEL | | 5:03 AM | | procedure are in the | | | | PDT | | results section. | + +--------+ + + + | ECG 12 LEAD | STAT | 07/21/2017 | | Results for this | | | | 3:41 AM | | procedure are in the | | | | PDT | | results section. | + +--------+ + + + | EXTRA GOLD TOP TUBE | Routin | 07/21/2017 | | Results for this | | | e | 3:29 AM | | procedure are in the | | | | PDT | | results section. | + +--------+ + + + | EXTRA BLUE TOP TUBE | Routin | 07/21/2017 | | Results for this | | | e | 3:29 AM | | procedure are in the | | | | PDT | | results section. | + +--------+ + + + | CBC WITH | STAT | 07/21/2017 | | Results for this | | DIFFERENTIAL | | 3:27 AM | | procedure are in the | | | | PDT | | results section. | + +--------+ + + + | TSH | STAT | 07/21/2017 | | Results for this | | | | 3:27 AM | | procedure are in the | | | | PDT | | results section. | + +--------+ + + + | OSMOLALITY, SERUM | Add-On | 07/21/2017 | | Results for this | | | | 3:27 AM | | procedure are in the | | | | PDT | | results section. | + +--------+ + + + | MAGNESIUM | STAT | 07/21/2017 | | Results for this | | | | 3:27 AM | | procedure are in the | | | | PDT | | results section. | + +--------+ + + + | ALCOHOL | STAT | 07/21/2017 | | Results for this | | | | 3:27 AM | | procedure are in the | | | | PDT | | results section. | + +--------+ + + + | BASIC METABOLIC | STAT | 07/21/2017 | | Results for this | | PANEL | | 3:27 AM | | procedure are in the | | | | PDT | | results section. | + +--------+ + + + | ED INFORMATION | Routin | 07/21/2017 | | | | EXCHANGE | e | 3:17 AM | | | | | | PDT | | | + +--------+ + + + +---+--------+ | | | | | Proced | | | ure | | | Note - | | | Kamila, | | | Lab In | | | | | | Hlseve | | | n - | | | 07/21/ | | | 2016 | | | 3:18 | | | AM PDT | | [...] ON?/ | | | | | | 7 | | | 03:14? | | | THOMPS | | | ON, | | | IVIS | | | D?MRN: | | | | | | [id number] | | | [id number] | | | his | | | [...] | | | ncy | | | Harlan | | | [...] | | | phase | | | Harlan | | | 8, | | | 2017 | | | [facility] | | | [place] | | | Urgent | | | Care | | | [place] | | [place] | | | Urgent | | | Care | | | | | | Outpat | | | ient | | | | | | Dyskin | | | esia | | | of | | | esopha | | | [place] | | | | | | Gastro | | | -esoph | | | ageal | | | reflux | | | | | | diseas | | | e | | | withou | | | t | | | esopha | | | gitis | | | | | | Dyspha | | | ariel, | | | pharyn | | | goesop | | | hageal | | | phase | | | | | | Esopha | | | gitis, | | | | | | unspec | | | ified | | | | | | Diaphr | | | agmati | | | c | | | hernia | | | | | | withou | | | t | | | obstru | | | ction | | | or | | | gangre | | | ne | | | Harlan 6, | | | 2017 | | | [facility] | | | [place] | | | Urgent | | | Care | | | [place] | | | [place] | | | Urgent | | | Care | | | | | | Outpat | | | ient | | | Harlan | | | 3, | | | 2017 | | | [facility] | | | [place] | | | Urgent | | | Care | | | [place] | | | [place] | | | Urgent | | | Care | | | | | | Outpat | | | ient | | | | | | Dyspha | | | ariel, | | | unspec | | | ified | | | E.D. | | | [...] | | | Center | | | 1 0 | | | Total | | | 1 0 | | | Note: | | [...] | | | . | | | [place] | | | [...] | | | 2017-0 | | | 3-15 | | | HYDROC | | | ODONE- | | | HOMATR | | | OPINE | | | SYRUP | | | 120 | | | PINO | | | EDWARD | | | S 2 0 | | | Rx | | | Summar | | | [...] | | +---+--------+ documented in this encounter Results Basic Metabolic Panel (07/21/2017 6:49 AM PDT) + + + + + + | Component | Value | Ref Range | Performed | Pathologist | | | | | At | Signature | + + + + + + | Na | 114 (LL)Comment: | 136 - 149 | [facility] | | | | Consistent with previous | mmol/L | [facility] | | | | results. | | MEDICAL | | | | | | CENTER - | | | | | | LABORATORY | | + + + + + + | K | 3.1 (L) | 3.5 - 5.1 | [facility] | | | | | mmol/L | [facility] | | | | | | MEDICAL | | | | | | CENTER - | | | | | | LABORATORY | | + + + + + + | Cl | 85 (L) | 98 - 109 mmol/L | [facility] | | | | | | [facility] | | | | | | MEDICAL | | | | | | CENTER - | | | | | | LABORATORY | | + + + + + + | CO2 | 19 (L) | 24 - 31 mmol/L | [facility] [...] + + + + | Glucose | 128 (H) | 70 - 109 mg/dL | [facility] | | | | | | [facility] | | | | | | MEDICAL | | | | | | CENTER - | | | | | | LABORATORY | | + + + + + + | BUN | 1 (L) | 7 - 18 mg/dL | [facility] | | | | | | [facility] | | | | | | MEDICAL | | | | | | CENTER - | | | | | | LABORATORY | | + + + + + + | Creatinine | 0.56 (L) | 0.60 - 1.30 | [facility] | | | | | mg/dL | [facility] | | | | | | MEDICAL | | | | | | CENTER - | | | | | | LABORATORY | | + + + + + + | eGFR if not | >60Comment: GLOMERULAR | >=60 | [facility] | | | | FILTRATION | mL/min/1.73m2 | [facility] | | | [place] | RATE,ESTIMATED | | MEDICAL | | | | mL/min/1.93z0Qola than | | CENTER - | | [...] + | Calcium | 7.8 (L) | 8.3 - 10.5 | [facility] | | | | | mg/dL | [facility] | | | | | | MEDICAL | | | | | | CENTER - | | | | | | LABORATORY | | + + + + + + | BUN/Creatin | 1.8 | | [facility] | | | ine [...] [address] | [place] | [phone] | | [facility] | | [address] | | | - LABORATORY | | | | + + + + + Osmolality, Urine (07/21/2017 6:19 AM PDT) + +--------+ + + + | Component | Value | Ref Range | Performed | Pathologist | | | | | At | Signature | + +--------+ + + + | OSMO URINE | 94 (L) | 300 - 1,000 | [facility] | | | | | mOsm/kg | [facility] | | | | [...] + | [facility] | [address] | [place] | [phone] | | [facility] | | [address] | | | - LABORATORY | | | | + + + + + Sodium, Urine, Random (07/21/2017 6:19 AM PDT) + +-------+ + + + | Component | Value | Ref Range | Performed | Pathologist | | | | | At | Signature | + +-------+ + + + | Sodium, | 32 | 27 - 287 mmol/L | [facility] | | | Urine | | | [facility] | | | Random | | | MEDICAL | | | [...] [address] | [place] | [phone] | | [facility] | | [address] | | | - LABORATORY | | | | + + + + + Urinalysis with Microscopic with Culture if Indicated (07/21/2017 6:19 AM PDT) + + + + + + | Component | Value | Ref Range | Performed | Pathologist | | | | | At | Signature | + + + + + + | Color, | Colorless (A) | Light Yellow, | [facility] | | | Urine | | Yellow, Straw | [facility] | | | | | | MEDICAL | | | | | | CENTER - | | | | | | LABORATORY | | + + + + + + | Clarity | Clear | Clear | [facility] | | | | | | [facility] | | | | | | MEDICAL | | | | | | CENTER - | | | | | | LABORATORY | | + + + + + + | pH, Urine | 6.0 | 5.0 - 8.0 | [facility] | | | | | | [facility] | | | | | | MEDICAL | | | | | | CENTER - | | | | | | LABORATORY | | + + + + + + | Specific | 1.002 | 1.001 - 1.030 | [facility] | | | [place], | | | [facility] | | | Urine | | | MEDICAL | | | | | | CENTER - | | | | | | LABORATORY | | + + + + + + | Protein, | Negative | Negative | [facility] | | | Urine | | | [facility] | | | | | | MEDICAL | | | | | | CENTER - | | | | | | LABORATORY | | + + + + + + | Blood, | Small (A) | Negative | [facility] | | | Urine | | | [facility] | | | | | | MEDICAL | | | | | | CENTER - | | | | | | LABORATORY | | + + + + + + | Glucose, | Negative | Negative | [facility] | | | Urine | | | [facility] | | | | | | MEDICAL | | | | | | CENTER - | | | | | | LABORATORY | | + + + + + + | Ketones, | Negative | Negative | [facility] | | | Urine | | | [facility] | | | | | | MEDICAL | | | | | | CENTER - | | | | | | LABORATORY | | + + + + + + | Bilirubin, | Negative | Negative | [facility] | | | Urine | | | [facility] | | | | | | MEDICAL | | | | | | CENTER - | | | | | | LABORATORY | | + + + + + + | Nitrite, | Negative | Negative | [facility] | | | Urine | | | [facility] | | | | | | MEDICAL | | | | | | CENTER - | | | | | | LABORATORY | | + + + + + + | Leukocyte | Negative | Negative | [facility] | | | Esterase, | | | [facility] | | | Urine | | | MEDICAL | | | | | | CENTER - | | | | | | LABORATORY | | + + + + + + | Urobilinoge | Negative | 0.2 mg/dL, 1.0 | [facility] | | | n, Urine | | mg/dL, Negative | [facility] | | | | | | MEDICAL | | | | | | CENTER - | | | | | | LABORATORY | | + + + + + + | White Blood | 0-2 | 0 - 2 /HPF | [facility] | | | Cells, | | | [facility] | | | Urine | | | MEDICAL | | | | | | CENTER - | | | | | | LABORATORY | | + + + + + + | Red Blood | 0-2 | 0 - 2 /HPF | [facility] | | | Cells, | | | [facility] | | | Urine | | | MEDICAL | | | | | | CENTER - | | | | | | LABORATORY | | + + + + + + | Squamous | 0-2 | 0 - 2 /LPF | [facility] | | | Epithelial | | | [facility] | | | Cells, | | | MEDICAL | | | Urine | | | CENTER - | | | | | | LABORATORY | | + + + + + + | Bacteria, | Negative | Negative /HPF | [facility] | | | Urine | | | [facility] | | | | | | MEDICAL | | | | | | CENTER - | | | | | | LABORATORY | | + + + + + + | Mucus, | Present (A) | Negative /LPF | [facility] | | | Urine | | | [facility] | | [...] + + | [facility] | [address] | [place] | [phone] | | [facility] | | [address] | | | - LABORATORY | | | | + + + + + Drugs of Abuse, Screen, Urine (07/21/2017 6:19 AM PDT) + + + + + + | Component | Value | Ref Range | Performed | Pathologist | | | | | At | Signature | + + + + + + | Amphetamine | Negative | Negative | [facility] | | | Screen, | | | [facility] | | | Urine | | | MEDICAL | | | | | | CENTER - | | | | | | LABORATORY | | + + + + + + | Barbiturate | Negative | Negative | [facility] | | | s Screen, | | | [facility] | | | Urine | | | MEDICAL | | | | | | CENTER - | | | | | | LABORATORY | | + + + + + + | Benzodiazep | Negative | Negative | [facility] | | | ania | | | [facility] | | | Screen, | | | MEDICAL | | | Urine | | | CENTER - | | | | | | LABORATORY | | + + + + + + | Cannabinoid | Negative | Negative | [facility] | | | s Screen, | | | [facility] | | | Urine | | | MEDICAL | | | | | | CENTER - | | | | | | LABORATORY | | + + + + + + | Cocaine | Negative | Negative | [facility] | | | Screen, | | | [facility] | | | Urine | | | MEDICAL | | | | | | CENTER - | | | | | | LABORATORY | | + + + + + + | Methadone | Negative | Negative | [facility] | | | Screen, | | | [facility] | | | Urine | | | MEDICAL | | | | | | CENTER - | | | | | | LABORATORY | | + + + + + + | Opiates | Negative | Negative | [facility] | | | Screen, | | | [facility] | | | Urine | | | [...] ST. | [address] | [place] | [phone] | | [facility] | | [address] | | | - LABORATORY | | | | + + + + + POC Blood Gases (07/21/2017 6:01 AM PDT) + + + + + + | Component | Value | Ref Range | Performed | Pathologist | | | | | At | Signature | + + + + + + | Specimen | Artery | | [facility] | | | Source | | | [facility] | | | | | | MEDICAL | | | | | | CENTER - | | | | | | LABORATORY | | + + + + + + | pH, POC | 7.382 | 7.3 - 7.45 | [facility] | | | | | | [facility] | | | | | | MEDICAL | | | | | | CENTER - | | | | | | LABORATORY | | + + + + + + | HCO3, POC | 21.8 | 21.0 - 28.0 | [facility] | | | | | mmol/L | [facility] | | | | | | MEDICAL | | | | | | CENTER - | | | | | | LABORATORY | | + + + + + + | TCO2, POC | 23.0 | 22.0 - 29.0 | [facility] | | | | | mmol/L | [facility] | | | | | | MEDICAL | | | | | | CENTER - | | | | | | LABORATORY | | + + + + + + | Base | -2.9 (L) | -2.0 - 3.0 | [facility] | | | Excess, POC | | mmol/L | [facility] | | | | | | MEDICAL | | | | | | CENTER - | | | | | | LABORATORY | | + + + + + + | Base | -3.2 (L) | -2.0 - 3.0 | [facility] | | | Excess, | | mmol/L | [facility] | | | Extracellul | | | MEDICAL | | | ar fluid, | | | CENTER - | | | POC | | | LABORATORY | | + + + + + + | O2 Sat, POC | 49 (L) | 90 - 100 % | [facility] | | | | | | [facility] | | | | | | MEDICAL | | | | | | CENTER - | | | | | | LABORATORY | | + + + + + + | PCO2, POC | 36.8 | 35.0 - 50.0 | [facility] | | | | | mmHg | [facility] | | | | | | MEDICAL | | | | | | CENTER - | | | | | | LABORATORY | | + + + + + + | pO2, POC | 26.8 | 25.0 - 50.0 | [facility] | | | | | mmHg | [facility] | | | | [...] [address] | [place] | [phone] | | [facility] | | [address] | | | - LABORATORY | | | | + + + + + Basic Metabolic Panel (07/21/2017 5:03 AM PDT) + + + + + + | Component | Value | Ref Range | Performed | Pathologist | | | | | At | Signature | + + + + + + | Na | 112 (LL)Comment: | 136 - 149 | [facility] | | | | Consistent with previous | mmol/L | [facility] | | | | results. | | MEDICAL | | | | | | CENTER - | | | | | | LABORATORY | | + + + + + + | K | 2.9 (L) | 3.5 - 5.1 | [facility] | | | | | mmol/L | [facility] | | | | | | MEDICAL | | | | | | CENTER - | | | | | | LABORATORY | | + + + + + + | Cl | 82 (L) | 98 - 109 mmol/L | [facility] | | | | | | [facility] | | | | | | MEDICAL | | | | | | CENTER - | | | | | | LABORATORY | | + + + + + + | CO2 | 19 (L) | 24 - 31 mmol/L | [facility] [...] + + + + | Glucose | 148 (H) | 70 - 109 mg/dL | [facility] | | | | | | [facility] | | | | | | MEDICAL | | | | | | CENTER - | | | | | | LABORATORY | | + + + + + + | BUN | 2 (L) | 7 - 18 mg/dL | [facility] | | | | | | [facility] | | | | | | [facility] | | | | | | CENTER - | | | | | | LABORATORY | | + + + + + + | Creatinine | 0.63 | 0.60 - 1.30 | [facility] | | | | | mg/dL | [facility] | | | | | | [facility]ICAL | | | | | | CENTER - | | | | | | LABORATORY | | + + + + + + | eGFR if not | >60Comment: GLOMERULAR | >=60 | [facility] | | | | FILTRATION | mL/min/1.73m2 | [facility] | | | [facility] | RATE,ESTIMATED | | MEDICAL | | | | mL/min/1.49h5Sitp than | | CENTER - | | [...] + + + + | Calcium | 7.0 (L) | 8.3 - 10.5 | [facility] | | | | | mg/dL | [facility] | | | | | | MEDICAL | | | | | | CENTER - | | | | | | LABORATORY | | + + + + + + | BUN/Creatin | 3.2 | | [facility] | | | ine Ratio | | | [facility] | | [...] [address] | [place] | [phone] | | [facility] | | [address] | | | - LABORATORY | | | | + + + + + ECG 12 lead (07/21/2017 3:41 AM PDT) + + + + + + | Component | Value | Ref Range | Performed | Pathologist | | | | | At | Signature | + + + + + + | VENTRICULAR | 62 | BPM | [facility] | | | RATE EKG | | | | | + + + + + + | ATRIAL RATE | 62 | BPM | [facility] | | + + + + + + | P-R | 140 | ms | [facility] | | | INTERVAL | | | | | + + + + + + | QRS | 82 | ms | [facility] | | | DURATION | | | | | + + + + + + | Q-T | 388 | ms | [facility] | | | INTERVAL | | | | | + + + + + + | Q-T | 393 | ms | [facility] | | | INTERVAL | | | | | | (CORRECTED) | | | | | + + + + + + | P WAVE AXIS | 68 | degrees | [facility] | | + + + + + + | QRS AXIS | 54 | degrees | [facility] | | + + + + + + | T AXIS | 31 | degrees | [facility] | | + + + + + + | INTERPRETAT | Sinus rhythm with | | [facility] | | | ION TEXT | premature atrial | | | | | | complexesRSR' lead V1 | | | | | | and [facility]3eqcgoep[facility]p ST | | | | | | abnormalities in leads | | | | | | V5 | | | | | | | | | | | | 6 which may be | | | | | | artifactual in nature | | | | | | though ischemia cannot | | | | | | be excludedAbnormal | | | | | | ECGNo previous ECGs | | | | | | availableConfirmed by | | | | | | VIRGIE MAXWELL MD ([id number]) | | | | | | on 07/23/2017 8:40:04 AM | | | | + + [...] | | + +---------+ + + Extra Blue Top Tube (07/21/2017 3:29 AM PDT) + +-------+ + + + [...] ST. | [address] | [place], [place] | [phone] | | [facility] | | [address] | | | - LABORATORY | | | | + + + + + Extra Gold Top Tube (07/21/2017 3:29 AM PDT) + +-------+ + + + | Component | Value | Ref Range | Performed | Pathologist | | | | | At | Signature | + +-------+ + + + | Extra Gold | Done | | [facility] | | | Top Tube | | | [facility] | | [...] [address] | [place] | [phone] | | [facility] | | [address] | | | - LABORATORY | | | | + + + + + Osmolality, Serum (07/21/2017 3:27 AM PDT) + +---------+ + + + | Component | Value | Ref Range | Performed | Pathologist | | | | | At | Signature | + +---------+ + + + | Osmolality, | 238 (L) | 275 - 295 | [facility] | | | Serum | | mOsm/kg | [facility] | | | | [...] + | [facility] | [address] | [place] | [phone] | | [facility] | | [address] | | | - LABORATORY | | | | + + + + + Ethanol (07/21/2017 3:27 AM PDT) + +-------+ + + + | Component | Value | Ref Range | Performed | Pathologist | | | | | At | Signature | + +-------+ + + + | ALCOHOL, | <5 | <400 mg/dL | [facility] | | | SERUM/PLASM | | | [facility] | | | A | | | MEDICAL | | | [...] + | [facility] | [address] | [place] | [phone] | | [facility] | | [address] | | | - LABORATORY | | | | + + + + + Magnesium (07/21/2017 3:27 AM PDT) + +---------+ + + + | Component | Value | Ref Range | Performed | Pathologist | | | | | At | Signature | + +---------+ + + + | Magnesium | 1.2 (L) | 1.8 - 2.5 mg/dL | [facility] | | | | | | [facility]. [...] [address] | [place] | [phone] | | [facility] | | [address] | | | - LABORATORY | | | | + + + + + TSH (07/21/2017 3:27 AM PDT) + + + + + + | Component | Value | Ref Range | Performed | Pathologist | | | | | At | Signature | + + + + + + | TSH | 7.12 (H)Comment: All TSH | 0.34 - 5.60 | [facility] | | | | samples are screened | uIU/mL | [facility] | | | | using a 2nd Generation | | MEDICAL | | | | test, and are reflexed | | CENTER - | | | | to a 3rd Generation test | | LABORATORY | | | | if indicated. | | | | + + + + + + + + | Specimen | + + | Blood | + + + + + + + | Performing | Address | City/State/Zipcode | Phone Number | | Organization | | | | + + + + + | [facility] | [address] | [place] | [phone] | | [facility] | | [address] | | | - LABORATORY | | | | + + + + + Basic Metabolic Panel (07/21/2017 3:27 AM PDT) + + + + + + | Component | Value | Ref Range | Performed | Pathologist | | | | | At | Signature | + + + + + + | Na | 111 (LL)Comment: | 136 - 149 | [facility] | | | | Critical Result called | mmol/L | [facility] | | | | to and read back by | | MEDICAL | | | | Charo Zhao on | | CENTER - | | | | 07/21/2017 at 3:52 by | | LABORATORY | | | | Glynn Salmeron. | | | | + + + + + + | K | 3.2 (L) | 3.5 - 5.1 | [facility] | | | | | mmol/L | [facility] | | | | | | [facility] | | | | | | CENTER - | | | | | | LABORATORY | | + + + + + + | Cl | 82 (L) | 98 - 109 mmol/L | [facility] | | | | | | [facility] | | | | | | [facility] | | | | | | CENTER - | | | | | | LABORATORY | | + + + + + + | CO2 | 16 (L) | 24 - 31 mmol/L | [facility] | | | | | | [facility] | | | | | | MEDICAL | | | | | | CENTER - | | | | | | LABORATORY | | + + + + + + | Anion Gap | 13 | 3 - 16 mmol/L | [facility] | | | | | | [facility] | | | | | | MEDICAL | | | | | | CENTER - | | | | | | LABORATORY | | + + + + + + | Glucose | 185 (H) | 70 - 109 mg/dL | [facility] | | | | | | [facility] | | | | | | MEDICAL | | | | | | CENTER - | | | | | | LABORATORY | | + + + + + + | BUN | 2 (L) | 7 - 18 mg/dL | [facility] | | | | | | [facility] | | | | | | [facility] | | | | | | CENTER - | | | | | | LABORATORY | | + + + + + + | Creatinine | 0.64 | 0.60 - 1.30 | [facility] | [...] mL/min/1.73m2 | [facility] | | | [facility] | RATE,ESTIMATED | | MEDICAL | | | | mL/min/1.06d9Szkv than | | CENTER - | | [...] + + + + | Calcium | 7.5 (L) | 8.3 - 10.5 | [facility] | | | | | mg/dL | [facility] | | | | | | MEDICAL | | | | | | CENTER - | | | | | | LABORATORY | | + + + + + + | BUN/Creatin | 3.1 | | [facility] | | | ine Ratio | | | [facility] | | [...] [address] | [place] | [phone] | | [facility] | | [address] | | | - LABORATORY | | | | + + + + + CBC with Differential (07/21/2017 3:27 AM PDT) + + + + + + | Component | Value | Ref Range | Performed | Pathologist | | | | | At | Signature | + + + + + + | WBC | 9.0 | 4.0 - 11.0 K/uL | [facility] | | | | | [facility] | | | | | | MEDICAL | | | | | | CENTER - | | | | | | LABORATORY | | + + + + + + | RBC | 3.93 | 3.70 - 5.20 | [facility] | | | | | M/uL | [facility] | | | | | | MEDICAL | | | | | | CENTER - | | | | | | LABORATORY | | + + + + + + | Hemoglobin | 11.0 (L) | 11.5 - 16.0 | [facility] | | | | | g/dL | [facility] | | | | | | MEDICAL | | | | | | CENTER - | | | | | | LABORATORY | | + + + + + + | Hematocrit | 32.1 (L) | 34.0 - 47.0 % | [facility] | | | | | | [facility] | | | | | | MEDICAL | | | | | | CENTER - | | | | | | LABORATORY | | + + + + + + | MCV | 81.5 (L) | 83.0 - 101.0 fL | [facility] | | | | | | [facility] | | | | | | MEDICAL | | | | | | CENTER - | | | | | | LABORATORY | | + + + + + + | MCH | 27.9 (L) | 28.0 - 35.0 pg | [facility] [...] + + + + | RDW-CV | 13.1 | <15.0 % | [facility] | | | | | | [facility] | | | | | | MEDICAL | | | | | | CENTER - | | | | | | LABORATORY | | + + + + + + | Platelet | 149 | 140 - 440 K/uL | [facility] | | | Count | | | [facility] | | | | | | MEDICAL | | | | | | CENTER - | | | | | | LABORATORY | | + + + + + + | MPV | 8.4 | fL | [facility] | | | | | | [facility] | | | | | | MEDICAL | | | | | | CENTER - | | | | | | LABORATORY | | + + + + + + | % | 72.9 | 45.0 - 82.0 % | [facility] | | | Neutrophils | | | [facility] | | | | | | MEDICAL | | | | | | CENTER - | | | | | | LABORATORY | | + + + + + + | % | 20.1 | 20.0 - 45.0 % | [facility] | | | Lymphocytes | | | [facility] | | | | | | MEDICAL | | | | | | CENTER - | | | | | | LABORATORY | | + + + + + + | % Monocytes | 5.6 | 4.0 - 12.0 % | [facility] | | | | | | [facility] | | | | | | MEDICAL | | | | | | CENTER - | | | | | | LABORATORY | | + + + + + + | % | 0.8 | 0.0 - 5.0 % | [facility] | | | Eosinophils | | | [facility] | | | | | | MEDICAL | | | | | | CENTER - | | | | | | LABORATORY | | + + + + + + | % Basophils | 0.6 | 0.0 - 1.0 % | [facility] | | | | | | [facility] | | | | | | MEDICAL | | | | | | CENTER - | | | | | | LABORATORY | | + + + + + + | Absolute | 6.60 | 1.80 - 8.50 | [facility] | | | Neutrophils | | K/uL | [facility] | | | | | | MEDICAL | | | | | | CENTER - | | | | | | LABORATORY | | + + + + + + | Absolute | 1.80 | 0.60 - 3.20 | [facility] | | | Lymphocytes | | K/uL | [facility] | | | | | | MEDICAL | | | | | | CENTER - | | | | | | LABORATORY | | + + + + + + | Absolute | 0.50 | 0.00 - 1.00 | [facility] | | | Monocytes | | K/uL | [facility] | | | | | | MEDICAL | | | | | | CENTER - | | | | | | LABORATORY | | + + + + + + | Absolute | 0.10 | 0.00 - 0.40 | [facility] | | | Eosinophils | | K/uL | [facility] | | | | | | MEDICAL | | | | | | CENTER - | | | | | | LABORATORY | | + + + + + + | Absolute | 0.10 | 0.00 - 0.10 | [facility] | | | Basophils | | K/uL | [facility] | | [...] + + | [facility] 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 | + + | Hyponatremia Hyposmolality and/or hyponatremia | + + | Hypomagnesemia Disorders of magnesium metabolism | + + documented in this encounter Administered Medications + +--------+ +------+------+------+ | Medication Order | MAR | Action | Dose | Rate | Site | | | Action | Date | | | | + +--------+ +------+------+------+ | LORazepam (ATIVAN) injection 1 | Given | 07/21/20 | 1 mg | | | | mg 1 mg, Intravenous, ONCE, Wed | | 17 3:27 | | | | | 07/21/17 at 0325, For 1 dose | | AM PDT | | | | + +--------+ +------+------+------+ +---+---+ | | | +---+---+ + +-------+ +------+---+---+ | LORazepam (ATIVAN) injection 1 | Given | 07/21/20 | 1 mg | | | | mg 1 mg, Intravenous, ONCE, Wed | | 17 3:42 | | | | | 07/21/17 at 0340, For 1 dose | | AM PDT | | | | + +-------+ +------+---+---+ +---+---+ | | | +---+---+ + +---------+ +-----+ +---+ | magnesium sulfate 2 g/50 mL | New Bag | 07/21/20 | 2 g | 25 mL/hr | | | IVPB 2 g 2 g, Intravenous, | | 17 4:21 | | | | | Administer over 120 Minutes, | | AM PDT | | | | | ONCE, 07/21/17 at 0400, For 1 | | | | | | | dose, Maximum recommended | | | | | | | infusion rate = 1 gram/hour., | | | | | | + +---------+ +-----+ +---+ +---+---+ | | | +---+---+ + +---------+ +---------+-------+---+ | sodium chloride 3% bolus 100 mL | New Bag | 07/21/20 | 100 mLs | 200 | | | 100 mL, Intravenous, Administer | | 17 4:20 | | mL/hr | | | over 0.5 Hours, ONCE, Wed | | AM PDT | | | | | 07/21/17 at 0355, For 1 dose, | | | | | | | Central line administration | | | | | | | preferred. If no central access, | | | | | | | administer peripherally into | | | | | | | large vein. Do not give in | | | | | | | hand/wrist or foot/ankle vein., | | | | | | + +---------+ +---------+-------+---+ +---+---+ | | | +---+---+ + +---------+ +---------+-------+---+ | sodium chloride 3% bolus 100 mL | New Bag | 07/21/20 | 100 mLs | 200 | | | 100 mL, Intravenous, Administer | | 17 6:12 | | mL/hr | | | over 0.5 Hours, ONCE, Wed | | AM PDT | | | | | 07/21/17 at 0530, For 1 dose, | | | | | | | Central line administration | | | | | | | preferred. If no central access, | | | | | | | administer peripherally into | | | | | | | large vein. Do not give in | | | | | | | hand/wrist or foot/ankle vein., | | | | | | + +---------+ +---------+-------+---+ +---+---+ | | | +---+---+ documented in this encounter"
--- OUTSIDE RECORDS SUMMARY | ~2020-05-16 | XMS | Encounter Summary ---
Demographics + + + | Address | [address] | | | [place] [address] | + + + | Home Phone | | + + + | Preferred Language | Unknown | + + + | Marital Status | Single | + + + | Christian Affiliation | 1013 | + + + [...] Team Providers + +------+ + | Care Carpenter Repairer Name | Role | Phone | [...] Description | +--------+--------+ + + + | 03/11/ | Refill | [facility] | James Farmer, | Medication Refill | | 2019 | | MEDICINE [address] | [place] [address] [facility] | | | | | [place], | [place] | | | | | [place] [address] | [phone] | | | | | [phone] | | | +--------+--------+ + + + [...]
--- OUTSIDE RECORDS SUMMARY | ~2020-05-16 | XMS | Encounter Summary ---
Demographics + + + | Address | [address] | | | [place] [address] | + + + | Home Phone [...] Team Providers + +------+ + | Care Internet Retailer Name | Role | Phone | + [...] | | | | | APPROVED | [address] | [place] [address] | | | | | | Phone: | Phone: | | | | | | [phone] | [phone] | | | | | | Fax: | Fax: | | | | | | [phone] | [phone] | +--------+ + + + + + Encounter Details +--------+---------+ + + + | Date | Type | Department | Care Team | Description | +--------+---------+ + + + | 05/31/ | Office | [facility] | Radha Carranza | Impaired functional | | 2019 | Visit | [facility] | D, PT [address] | mobility, balance, | | | | [address] | [address] [place] | gait, and endurance | | | | [place] | [id number] | (Primary Dx); | | | | [address] | | Chronic bilateral | | | | [phone] | Denise Banks | low back pain | | | | | M, Aide | without sciatica; | | | | | | Gait [...] +---------+ + + | Blood Pressure | 129/97 | 05/31/2019 9:54 AM | | | | | PDT | | + +---------+ + + | Pulse | 88 | 05/31/2019 9:54 AM | | | | | PDT | | + +---------+ + + | Temperature | - | - | | + +---------+ + + | Respiratory Rate | - | - | | + +---------+ + + | Oxygen Saturation | 96% | 05/31/2019 9:54 AM | | | | | PDT | | + +---------+ + + | [...] + documented in this encounter Progress Notes Radha Carranza, PT - 05/31/2019 10:00 AM PDT [facility] [address] [place] [address] Physical Therapy Initial Assessment Date: 05/31/2019 Patient Information Patient Name: Cherrie Quijano Date of : 1960 Age: 58 y.o. History No problems updated. Mechanism of injury: Pt reports that sx came on gradually but is not sure. When asked about the seizure, pt says that she passed out on the toilet when she was prepping for her colono scopy. Apparently that was when she had the seizure. Her boyfriend found her and called 911. Pt says that she woke up in [place] with a catheter in her---thought she was still home in [place]. Per Dr. Bob's note, pt has had progressive difficulty ever since her seizure. Pt reports that she has had low back pain for a long time. 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 Says that s he is currently looking for a job. Living situation: Pt lives with her boyfriend in a house in . Says that she has 1 step t o get in and then it is a split level home. Has 1 rail on her stairs. Says she can do the st airs but has to hold the rail and cannot carry anything when she is going up or down stairs. Social History Socioeconomic History Marital status: Single Spouse name: Not on file Number of children: Not on file Years of education: Not on file Highest education level: Not on file Tobacco Use Smoking status: Former Smoker Types: Cigarettes Last attempt to quit: 2000 Years since quittin.5 Smokeless tobacco: Never Used Tobacco comment: smoked socially when she drank Substance and Sexual Activity Alcohol use: No Alcohol/week: 0.0 oz Drug use: No Encounter Diagnoses Code Name Primary? Z74.09 Impaired functional mobility, balance, gait, and endurance Yes M54.5, G89.29 Chronic bilateral low back pain without sciatica R26.81 Gait instability Date of Onset: 04/20/2019 Referring Provider: James Farmer MD No history on file. Past Medical History: Diagnosis Date Depression with [...] [facility] Family History Problem Relation Age of Onset Heart disease Paternal Grandmother Heart attack Paternal Grandmother High blood pressure Paternal Grandmother Diabetes Paternal Grandfather Depression Paternal Grandfather Developmental History No Known Allergies Prior Treatment: Pt reports that she had some therapy when she was in the hospital in [facility] "for 3-4 days" but has not had further therapy since then Rehab Precautions Office Visit from 05/31/2019 in [facility] Rehab Precautions Precautions ARTF, Seizure Abuse Assessment Do you feel safe in your current relationship or home?: Yes Pain Assessment: Pain Rating During Assessment: 7.5 Pain Rating Post Assessment: 4 Location: Lower back, radiates to BL thigh Pain/Comfort Presence Of Pain: complains of pain/discomfort BALANCE and FALL RISK EVALUATION: SUBJECTIVE: History of Presenting Problem: Cherrie Quijano is a 58 y.o. female who pres ents to therapy with c/o low back pain, poor balance, and difficulty walking. Pt reports shonda t she has had low back pain for a long time. Also reports that her R LE has "given out" at t imes "ever since I fractured my ankle in the late ". Pt has difficulty recalling detail s and remembering dates. Per chart note, pt was diagnosed with acute metabolic encephalopath y at the time of her seizure (07/08). Functional Limitations: Pt reports difficulty walking, has to hold rail when going up and d own stairs, cannot lift or carry heavier objects, stand > 10 min or walk > 1/4 mile even wit h AD. Patient s Goals: Pt wants to have more confidence when walking. OBJECTIVE: Vitals: Vital Signs Pulse: 88 BP: (!) 129/97 SpO2: 96 % MEWS Total Score: 0 Observation/Posture/Alignment: R lateral shift when sitting (after ME technique shift less pronounced); After ME technique shoulders are more level, but L pelvis is still higher Gait: Slower gait speed; antalgic gait pattern [...] / Discharge Sit<>Stand: Independent but uses UEs Sit<>Supine: Independent but requires increased time and effort. Pt does not use log roll, so may benefit from training for this. Double Leg Squat: NT Single Leg Squat: L= NT R= NT Toe Walking: Unable w/ UE support, R foot inverted Heel Walking: Unable, inverts R ankle w/ UE support Lumbar ROM: Initial Assessment Progress Note / Discharge Flexion: WFL, some pain; no pain after ME technique Extension: Moderately limited but pain; abhorrent mvmt pattern Side Bend Left: NT Side Bend Right: NT Side [place] Limited to L, but pain w/ both sides; no significant change after ME technique Initial Assessment Initial Assessment Progress Note/Discharge Progress Note/Discharge Left Right Left Right HIP ROM: Grossly WFL but limited at end ranges Grossly WFL but limited at end ranges Strength: Initial Assessment Initial Assessment Progress Note / Discharge Progress Note / D ischarge Left Right Left Right Iliopsoas (L1,L2): 4+ 4; pain; slightly stronger after ME Quadriceps (L3): 5 4; pain Ankle DF (L4): 5 4+ Great Toe Ext (L5): NT NT Glute Med (L5): 4/5 during seated MMT 4+/5 during seated MMT Ankle PF (S1): 5 4+ Ankle Eversion (S1): Not specifically tested but observed to be impaired during gait Not sp ecifically tested but observed to be impaired during gait Hamstrings (S2): seated 4+ 4 Lumbo-Pelvic Stabilizers: Impaired; observed to be 2/5 during functional mobility Impaired ; observed to be 2/5 during functional mobility Paraspinals: Not specifically tested but observed to be impaired during functional mobility Not specifically tested but observed to be impaired during functional mobility Abductors 5 4+ Adductors 5 4+ Segmental Joint Mobility: Not specifically tested; pt able to reverse lumbar lordosis duri ng forward flexion. Palpation: Noted scoliosis w/ lumbar convexity to the L, not a true convexity from thoracic spine L left hip and higher L shoulder with L side pelvis lower and anterior standing/supine posi tion L foot inverted (calcaneous will not come to neutral). Also noted leg length discrepancy an d pelvic obliquity, with L iliac crest higher and ASIS more forward vs. R side. Also initial ly painful to palpation at L ASIS. Pelvis/leg length more symmetrical and pt no longer painf ul with palpation of L ASIS after ME technique. Neurovascular: Initial Assessment Initial Assessment Progress Note / Discharge Progress Not e / Discharge Left Right Left Right Sensation: Grossly intact to light touch Grossly intact to light touch Myotomes: [...] her ankle injury in the late . Reflexes: Patella tendon WNL; unable to get response to Achilles test as pt could not relax feet Patella tendon WNL; unable to get response to Achilles test as pt could not relax feet Outcome Measure: Initial Assessment Progress Note / Discharge OSWESTRY: 48/100% (A score of 0% = No Functional Disability of Lumbar Spine) The Activities Specific Balance Confidence (ABC) Scale 72.5/100% (Higher percentages indica te greater balance confidence with functional mobility) Standardized Tests: Oswestry Disability Index (ROBER) Pain Intensity: 4 - The pain is very severe at the moment Personal Care: 2 - It is painful to take care of myself and I am slow and careful Liftin - Pain prevents me from lifting heavy weights, but I can manage light to medium weights if they are conveniently positioned Walkin - Pain prevents me from walking more than 1/4 mile(must use cane/cart for suppor t) Sittin - Pain prevents me from sitting for more than 1/2 hour Standin - Pain prevents me from standing more than 1/2 hour Sleepin - My sleep is occasionally disturbed by pain(takes 2 ibuprofen in the middle of the night to dull the pain if present) Sex life (if applicable): 2 - My sex life is nearly normal but is very painful(experiences cramps in engagement) Social Life: 2 - Pain prevents me from participating in more energetic activities (ex. spor ts, dancing, etc.) Travelin - My pain restricts travel over 2 hours Oswestry Disability Index Score (Calculated): 24 Oswestry Disability Percentage Score: 48 Oswestry Disability Index Goal: Improve Oswestry score to 20% or less. Oswestry Disability Index Goal Status: Current Oswestry score is 48, which indicates a jacobo re disability level. Timed Walk Tests 10 meter walk test (seconds): 11 10 meter walk test velocity (m/minute): 0.91(when using walking stick; gait speed is slower without AD) 4 Stage Balance Test 4 Stage Balance Feet Together (seconds): 30(mod increased sway w/ eyes closed but pt able t o maintain x 20 sec w/o LOB) 4 Stage Balance Semi-Tandem (seconds): (2 sec w/ R foot forward; 30 sec w/ L foot forward) 4 Stage Balance Tandem (seconds): (4 sec w/ L foot forward, 8 sec w/ R foot forward) The Activities-specific Balance Confidence (ABC) Scale 1. walk around the house?: 100 2. walk up or down the stairs?: 80 3. bend over and pharmacy picking tech a slipper from the front of a closet floor?: 90 4. reach for a small can off a shelf at eye level?: 100 5. stand on your tip toes and reach for something above your head?: 70 6. stand on a chair and reach for something?: 50 7. sweep the floor?: 100 8. walk outside the house to a car parked in the driveway?: 100 9. get into and out of a car?: 90 10. walk across a parking lot to the mall?: 80 11. walk up or down a ramp?: 60 12. walk in a crowded mall where people rapidly walk past you?: 100 13. are bumped into by people as you walk through the mall?: 70 14. step onto or off of an escalator while you are holding onto a railing?: 70 15. step onto or off an escalator while holding onto parcels such that you cannot hold onto the railing?: 0 16. walk outside on icy sidewalks?: 0 ABC Scale Score (Calculated): 72.5 Activity-Specific Balance Confidence Goal: Improve Activity Balance Confidence score by 15% points or greater indicating improved confidence with functional mobility. Activity-Specific Balance Confidence Status: Current ABC score is 72.5 Assessment Patient presents to physical therapy with low back pain, poor balance, and difficulty walki ng. Objective exam reveals impairments with pain, decreased strength and ROM, balance defici ts, pelvic obliquity, scoliosis. These impairments are causing functional limitations with s itting, standing, walking, sleeping, lifting, carrying, etc., which are placing pt at increa sed risk of falling and restricting this patient's ability to participate in heavier ADLs at home or activities that require > 10 min of standing, walking longer distances, travelling > 2 hours, and participating with community activities. Signs and symptoms appear to be mult ifactorial, with pelvic obliquity, low back, ankle issues being contributing factors in adina tion to generalized weakness, deconditioning, vestibular/occular dysfunction, and delayed/di minished righting reactions. Pt also appears to have impaired memory and so may need increas ed time and repetition for learning. Rehabilitation potential: Patient demonstrates good potential to achieve established goals to address the documented impairments by participating in skilled physical therapy services. Goals: Patient Reported Outcome Goals Patient Reported Outcome Goals: ABC Oswestry Disability Index Goal: Improve Oswestry score to 20% or less. Oswestry Disability Index Goal Status: Current Oswestry score is 48, which indicates a jacobo re disability level. Activity-Specific Balance Confidence Goal: Improve Activity Balance Confidence score by 15% points or greater indicating improved confidence with functional mobility. Activity-Specific Balance Confidence Status: Current ABC score is 72.5 OP PT Goals OP PT Goals: Goal 1 Goal 1: Independent home exercise program and awareness of posture/functional body art technician s to work toward independent symptom management. Goal 1 Status: Pt currently is not doing any formal exercise at home. Plan Date of Onset: 04/20/2019 Start of Care Date: 05/31/2019 Requested # of Visits: 16 visits 2x/week for No data was found Certification From: 05/31/2019 Certification To: 07/26/2019 Treatment Plan/Interventions PT EvaluationPT [id number] - Therapeutic [id number] - Neuromuscular Reeducation9 7116 - Gait [id number] - Therapeutic [id number] - Manual [id number] - Self Care/Ho me [id number] - Group Therapeutic [id number] - Physical Performance [id number] - Co mmunity/Work Reintegration Start Time: 10:15 Stop time: 11:15 Duration: 60 minutes Timed Treatment Codes: 0 minutes # of PT Visits to Date: Patient and/or family has indicated understanding of treatment needs and actively participa yossi in the creation of this plan for care. Next Visit: Plan to see how pt is doing with walking stick. Test DGI and/or TUG; set furthe r goals based upon results. Begin progressive dynamic balance program with addition of vesti bular/occular exercises. Treat pelvic obliquity and lateral shift as needed. Gait training o n even and uneven surfaces. Pt only has 3 approved visits, so will need to request further v isits, as pt likely will need extensive therapy. Electronically signed by: Radha Carranza, PT, 06/09/2019 18:05 Patient Name: Cherrie Urias Samm/: 1960/ documented in this encounter Plan of Treatment Not on filedocumented as of this encounter Visit Diagnoses + + | Diagnosis | + + | Impaired functional mobility, balance, gait, and endurance - Primary | + + | Chronic bilateral low back pain without sciatica | + + | Gait instability Abnormality of gait | + + documented in this encounter
--- OUTSIDE RECORDS SUMMARY | ~2020-05-16 | XMS | Encounter Summary ---
Demographics + + + | Address | [address] | | | [place] [address] | + + + | Home Phone [...] + | Author | [facility] | | | and [place] | + + + | Organization | [facility] | | | [...] Team Providers + +------+ + | Care Fermentation Manager Name | Role | Phone | + +------+ + | James Farmer MD | PCP | | + +------+ + Reason for Visit +--------+--------+ + | Reason | Onset | Comments | | | Date | | +--------+--------+ + | Other | 04/08/ | | | | 2019 | | +--------+--------+ + Encounter Details +--------+ + + + + | Date | Type | Department | Care Team | Description | +--------+ + + + + | 04/08/ | Telephone | [facility] | Nishant Arceo | Other | | 2019 | | GASTROENTEROLOGY | MD [address] | | | | | [address] [place] | [facility] | | | | | [address] [place] | [place] [address] | | | | | [address] | [phone] | | | | | [phone] | | | +--------+ + + + [...] Telephone Encounter - Berna Esqueda RN - 04/09/2020 8:45 AM PDTPatient called in t his morning with complaints that she is not able to keep anything down, pills, water; she lao s gas, bloating; she can't eat anything or very much of anything. Advised we need to schedul e her for visit; she is scheduled for OV on 04/17 but doesn't think she can make that; she wa s offered CVV or telephone visit by PSR and myself for today at 3pm; she states she doesn't think she can "make it"; she is frustrated because water heater is out and needs to wait for them to show up at home too; She is afraid to take any medications for fear of throwing it back up; she hasn't been able to sleep. She agreed to take 3pm spot for telephone visit. Apryl ctronically signed by Berna Esqueda RN at 04/09/2020 8:59 AM PDTTelephone Encounter - Kurt Perez - 04/08/2020 11:34 AM PDTName of Caller:Cherrie Quijano Name of Patient:Cherrie Quijano Reason for call: Pt called and stated that she couldn't wait to be seen in clinic on with Dr. Arceo. Pt stated that she thinks she having a reaction to the medication. Patie nt wanted to speak with Berna. Informed patient that is the only day that our provider i s seeing pts in clinic and if she wants to be seen sooner we can do a CVV or TELE visit. Pt decline. Routing to clinical staff. Provider/Nurse: Dr. Arceo/ Berna Call back number: [phone] documented in this encou nter Plan of Treatment Not on filedocumented as of this encounter Visit Diagnoses Not on filedocumented in this encounter
--- OUTSIDE RECORDS SUMMARY | ~2020-05-16 | XMS | Encounter Summary ---
Demographics + + + | Address | [address] | | | [place] [address] | + + + | Home Phone [...] + + | Author | [facility] | | | and [place] | + + + | Organization | [facility] | | [...] Team Providers + +------+ + | Care Interline Clerk Name | Role | Phone | + +------+ + | James Farmer MD | PCP | | + +------+ + Reason for Visit +--------+--------+ + | Reason | Onset | Comments | | | Date | | +--------+--------+ + | Other | 10/23/ | | | | 2018 | | +--------+--------+ + Encounter Details +--------+ + + + + | Date | Type | Department | Care Team | Description | +--------+ + + + + | 10/23/ | Telephone | [facility] | James Farmer, | Other | | 2018 | | MEDICINE [address] [place] [address] | [address] | | | | | [place], | [place] | | | | | [place] [address] | [id number] | | | | | [phone] | | | +--------+ + + + [...] Telephone Encounter - Ashlie Blevins LPN - 10/23/2019 10:58 AM PSTReturned call to robb saldana and she states she has a family history of parkinsons and over the holiday she visited wit h her sister who has parkinsons and she believes she may need to be evaluated for this. Stat es also she is still having swallowing issues and not eating better. Scheduled for at 830am to discuss in office 10:5 9 AM PSTTelephone Encounter - Catherine Peters - 10/23/2019 10:39 AM PSTPatient would like to speak to the nurse about what's going on with her. Please advise. documented in this encounter Plan of Treatment Not on filedocumented as of this encounter Visit Diagnoses Not on filedocumented in this encounter"
--- OUTSIDE RECORDS SUMMARY | ~2020-05-16 | XMS | Encounter Summary ---
Demographics + + + | Address | [address] | | | [place] [address] | + + + | Home Phone | | + + + | Preferred Language | Unknown | + + + | Marital Status | Single | + + + | Restorationist Affiliation | 1013 | + + + [...] | | + + +---------+ + | Cruz Echols | ECON | Unknown | | + + +---------+ + | Zahira Quijano | ECON | Unknown | | + + +---------+ + Care Team Providers + +------+ + | Care Stock Layer Name | Role | Phone | + +------+ + | James Farmer MD | PCP | | + +------+ + Reason for Visit + +--------+ + | Reason | Onset | Comments | | | Date | | + +--------+ + | Referral | 05/01/ | | | | 2020 | | + +--------+ + Encounter Details +--------+ + + + + | Date | Type | Department | Care Team | Description | +--------+ + + + + | 05/01/ | Telephone | [facility] | James Farmer, | Referral | 2019 | | MEDICINE [address] | [address] | | | | | [place], | [place] | | | | | [place] [address] | [address] | | | | | [phone] | | | +--------+ + + + [...] this encounter Miscellaneous Notes Telephone Encounter - GilbertIvet baugh Bowen - 05/01/2020 11:59 AM PDTPatient called stating that she needs a referral to sleep medicine at [facility]. Call was placed on hold to connect with nurse. Per Ashlie the message was relayed to robb t that at this time her other referrals have to be completed before the doctor will provide her with another referral to start looking at anything else. Patient stated you've got to be kidding me. Patient's boyfriend then joined the conversatio n stating that patient is not sleeping and he had to stay home to care for her. He stated it is getting bad and patient needs a referral for sleep medicine. Patient states also that her brother has Sleep Apnea and since he got his machine he is doi ng a lot better and we would really like to be tested. Patient would like Ashlie to call Cruz Echols back to discuss this as Cruz can explain thi ngs better and gives cruz permission to her medical information. Cruz can be contacted at [phone]. elepho ne Encounter - Ashlie Blevins LPN - 05/01/2020 10:23 AM PDTPatient has contact [facility] in [place] asking for a sleep eval. Angeline from [facility] phoned req uesting to have a referral placed so they can properly schedule her. I explained to her that I was sorry she is being bothered about this but at this time the patient has been told unt il her other referrals have been completed the doctor will not provide her with another refe rral to start looking at anything else. Patient currently has an appt scheduled with [facility] on 05/03 to investigate her current swallowing complaints further. Angeline barney s. documented in this encounter Plan of Treatment Not on filedocumented as of this encounter Visit Diagnoses Not on filedocumented in this encounter"
--- OUTSIDE RECORDS SUMMARY | ~2020-05-16 | XMS | Encounter Summary ---
Demographics + + + | Address | [address] | | | [place] [address] | + + + | Home Phone [...] Team Providers + +------+ + | Care Transportation Security Officer Name | Role | Phone | + +------+ + | James Farmer MD | PCP | | + +------+ + Reason for Visit +--------+--------+ + | Reason | Onset | Comments | | | Date | | +--------+--------+ + | Other | 08/09/ | | | | 2016 | | +--------+--------+ + Encounter Details +--------+ + + + + | Date | Type | Department | Care Team | Description | +--------+ + + + + | 08/09/ | Telephone | [facility] | James Farmer, | Other | | 2016 | | MEDICINE [address] [place] [address] | [address] | | | | | [place], | [place] | | | | | [place] [address] | [id number] | | | | | [phone] | | | +--------+ + + + [...] Notes Telephone Encounter - Adalberto Vogel - 08/11/2017 9:09 AM PDTPt scheduled to next [facility] ER slot 08/30/17. elepho ne Encounter - Ashlie Blevins LPN - 08/11/2017 7:56 AM PDTPer provider please call and sc hedule follow up visit TTelephone Encounter - Ashlie Blevins LPN - 08/10/2017 3:08 PM PDTPlease review her ER vi sit and advise for sooner appt or ok to wait until 10/05 elephone Encounter - Adalberto Vogel - 08/10/2017 1:27 PM PDTPt is returning call and could be reached at [phone] signed by Adalberto Vogel at 08/10/2017 1:29 PM PDTTelephone Encounter - Ellie Hightower RN - 08/10/2017 11:54 AM PDTLeft message for patient to call Electronically signed by MORGAN Arreola t 08/10/2017 11:54 AM PDTTelephone Encounter - Adalberto Vogel - 08/09/2017 12:28 PM PDTCont act/Caller: Cherrie Contact Number: [phone] Provider/Nurse: Darian Reason for Call: Pt stated they went to the ER 08-07-17 and stated was advised to get in con tact with their pcp. Pt would like call back to see what office would like her to do. Please advise. Last Appointment: 08/02/17 Next Appointment: 10/05/17 documented in this encoun ter Plan of Treatment Not on filedocumented as of this encounter Visit Diagnoses Not on filedocumented in this encounter"
--- OUTSIDE RECORDS SUMMARY | ~2020-05-16 | XMS | Encounter Summary ---
Demographics + + + | Address | [address] | | | [place] [address] | + + + | Home Phone | | + + + | Preferred Language | Unknown | + + + | Marital Status | Single | + + + | Holiness Affiliation | 1013 | + + + [...] Providers + +------+ + | Care Supervisor Tellers Name | Role | Phone | + [...] | Gastroenterol | Diagnoses | Darian, | | | | Services | ogmike | | James Dennis MD | | | | Required | | Pharyngoesop | [address] | | | | | | hageal | [place] | | | | | | dysphagia | [place] | | | | | | Esophageal | [address] | | | | | | dysmotility | Phone: | | | | | | | [phone] | | | | | | | Fax: | | | | | | | [phone] | | +--------+ + + + + + + + | Scheduling Instructions | + + | Savannah Morales MD | + + Encounter Details +--------+ + + + + | Date | Type | Department | Care Team | Description | +--------+ + + + + | 05/01/ | Orders Only | [facility] | James Farmer, | Pharyngoesophageal | | 2019 | | MEDICINE [address] | [address] | dysphagia (Primary | | | | [address]VE [place], | [place], [place] | Dx); Esophageal | | | | [place] [address] | [address] | dysmotility | | | | [phone] | | | +--------+ + + + [...] | Gastroenterology, | Outpatient | Routin | Pharyngoesophageal | Ordered: 05/01/2020 | | External - AMB | Referral [...]
--- OUTSIDE RECORDS SUMMARY | ~2020-05-16 | XMS | Encounter Summary ---
Demographics + + + | Address | [address] | | | [place] [address] | + + + | Home Phone [...] Providers + +------+ + | Care Clinical Research Manager Name | Role | Phone | + +------+ + | James Farmer MD | PCP | | + +------+ + Reason for Visit + +--------+ + | Reason | Onset | Comments | | | Date | | + +--------+ + | Medication Problem | 04/26/ | | | | 2019 | | + +--------+ + Encounter Details +--------+ + + + + | Date | Type | Department | Care Team | Description | +--------+ + + + + | 04/26/ | Telephone | [facility] | James Farmer, | Medication Problem | | 2019 | | [facility] [address] | MD Juanita FUNK | | | | | [place], | [place] | | | | | [place] [address] | [address] | | | | | [phone] | | | +--------+ + + + [...] Telephone Encounter - Ashlie Blevins LPN - 04/26/2020 2:10 PM PDTI have phoned this orde r in to Malcom the pharmacist at [facility]. Please re order this as it was ordered as an in offi ce med instead of being sent to the pharmacy elephone Encounter - Maci Grider - 04/26/2020 1:39 PM PDTPatien t states she was seen today and is waiting for the prescription nitroglycerin to be sent to the pharmacy. Patient went to the pharmacy and their is no prescription. Please adviseElectr onically signed by Maci Grider at 04/26/2020 1:40 PM PDTdocumented in this encounter Plan of Treatment Not on filedocumented as of this encounter Visit Diagnoses Not on filedocumented in this encounter"
--- OUTSIDE RECORDS SUMMARY | ~2020-05-16 | XMS | Encounter Summary ---
Demographics + + + | Address | [address] | | | [place] [address] | + + + | Home Phone [...] Team Providers + +------+ + | Care Human Resources Supervisor Name | Role | Phone | + +------+ + | James Farmer MD | PCP | | + +------+ + Reason for Visit + +--------+ + | Reason | Onset | Comments | | | Date | | + +--------+ + | Referral | 10/11/ | throat issues | | | 2018 | | + +--------+ + Encounter Details +--------+ + + + + | Date | Type | Department | Care Team | Description | +--------+ + + + + | 10/11/ | Telephone | [facility] | James Farmer, | Referral (throat | | 2018 | | MEDICINE [address] | MD [address] | issues) | | | | [place], | [place] | | | | | [place] [address] | [address] | | | | | [phone] | | | +--------+ + + + [...] this encounter Miscellaneous Notes Telephone Encounter - Catherine Peters - 10/12/2019 2:26 PM PSTPatient called asking to spe ak to the nurse regarding her throat issues. Please advise. elephone Encounter - Ashlie Blevins LPN - 10/12/2019 8: 13 AM PSTReturned call to patient left voice mail advising that doctor will discuss further treatment planning at her office visit he will not be placing a referral for an esophogram i n advance wishes to see her and discuss first elephone Encounter - Isamar Mcclure - 10/11/2019 8:43 AM PSTPa leo called wanting to speak with the nurse. She has an upcoming appointment with Dr. Cornel galdamez next week regarding her throat issues and was hoping to get the referral started alread y for her esophagram. Please call patient to advise. documented in this encounter Plan of Treatment Not on filedocumented as of this encounter Visit Diagnoses Not on filedocumented in this encounter"
--- OUTSIDE RECORDS SUMMARY | ~2020-05-16 | XMS | Encounter Summary ---
Demographics + + + | Address | [address] | | | [place] [address] | + + + | Home Phone [...] Providers + +------+ + | Care Social Group Worker Name | Role | Phone | + +------+ + | James Farmer MD | PCP | | + +------+ + Encounter Details +--------+ + + + + | Date | Type | Department | Care Team | Description | +--------+ + + + + | 04/26/ | Orders Only | [facility] | James Farmer, | | | 2019 | | MEDICINE [address] | [address] | | | | | [place], | [place] | | | | | [place] [address] | [address] | | | | | [phone] | | | +--------+ + + + [...]
--- OUTSIDE RECORDS SUMMARY | ~2020-05-16 | XMS | Encounter Summary ---
Demographics + + + | Address | [address] | | | [place] [address] | + + + | Home Phone [...] Team Providers + +------+ + | Care Machinery Mover Name | Role | Phone | + [...] | | | Procedures | | [place] [address] | | | | | [place] | | Phone: | | | | | ESOPHAGOGAST | | [phone] | | | | | RODUODENOSCO | | Fax: | | | | | PY TRANSORAL | | [phone] | | | | | DIAGNOSTIC | | | | | | | [place] EGD | | | | | | | TRANSORAL | | | | | | | BIOPSY | | | | | | | SINGLE/MULTI | | | | | | | PLE [place] | | | | | | | DILATE | | | | | | | ESOPHAGUS | | | | | | | [place] | | | | | | | [...] + + | 02/19/ | Hospital | [facility] | Nishant Snow | Esophageal dysphagia | | 2020 | Encounter | MED CTR [facility] INTRA OP | MD Tang [address] | | | | | [address] | [facility] | | | | | [place] | [place] [address] | | | | | [address] | [phone] | | | | | [phone] | | | +--------+ + + + [...] + + + | Blood Pressure | 102/67 | 02/20/2020 8:45 AM | | | | | PDT | | + + + + + | Pulse | 74 | 02/20/2020 8:45 AM | | | | | PDT | | + + + + + | Temperature | 36.4 C (97.5 F) | 02/20/2020 7:47 AM | | | | | PDT | | + + + + + | Respiratory Rate | 14 | 02/20/2020 8:33 AM | | | | | PDT | | + + + + + | Oxygen Saturation | 96% | 02/20/2020 8:45 AM | | | | | PDT [...] MANOMETRY ESOPHAGEAL; Surgeon: Nishant Snow MD; Location: [facility] MEDICAL PROCEDURE UNIT GI MANOMETRY 02/05/2020 UPPER GASTROINTESTINAL ENDOSCOPY N/A 11/30/2017 Procedure: EGD; Surgeon: Loi Hui MD; Location: [facility] MEDICAL PROC[facility]URE [facility] UPPER GASTROINTESTINAL ENDOSCOPY N/A 04/05/2019 Procedure: EGD; Surgeon: Loi Hui MD; Location: [facility] MEDICAL PROCEDURE UNIT UPPER GASTROINTESTINAL ENDOSCOPY N/A 09/06/2019 Procedure: EGD; Surgeon: Rodriguez Gómez MD; Location: [facility] MEDICAL PROCEDURE UNIT VEIN SURGERY HOME [...] Class 2 (upper half of tonsil fossa) [place] [employer] Anest[employer] Grade:ASA 3 - A [...] Electronically Signed by: Nishant Snow MD 02/20/2020 [facility] VERIFICATION OF CONSENT (PARQ) The patient counseled regarding the procedure, its indications, risks, potential complicati ons and alternatives. Any questions were answered. Consent was obtained. Nishant Snow MD, 02/20/2020 8:09 AM [facility] Portions of this chart may have been created with Probity voice recognition software. Occasi onal wrong-word or [...] Endoscopy Patient: Cherrie Quijano : 1960 Acct: [id number] Exam Date: Thursday, February 20, 2020 Doctor: [...] If unable to reach your physician, call [facility] Emergency Department at Ext. [address] [...] | | | | | PDT | ([facility]) | | + +--------+ + + + | *TERMED* [place] UPPER GI | Routin | 02/20/2020 | [...] | | albicansComment: No | | [facility] | | | | sensitivities performed. | | MEDICAL | | | | | | CENTER - | | | | | | LABORATORY | | + + + + + + | [facility] Prep | No white blood cells | | [facility] | | | | (PMNs) seen | | [facility] | | | | | [...] Prep | No yeast seen | | [facility] | | | | | [...] [address] | [place] | [phone] | | [facility] | | [address] | | | - LABORATORY | | | | + + + + + EGD (02/20/2020 7:59 AM PDT) + + | Specimen | + + | | + + + + + | Narrative | Performed At | + + + | [facility] | [facility] | | [facility]ologyPatient Name: Cherrie Quijano | [facility] | | DawnProcedure Date: 02/20/2020 7:59 AMMRN: [id number] Number: | | | [id number] of : 1960Note Status: FinalizedAttending | | | MD: NISHANT SNOW MDProcedure Type: Upper GI | | | endoscopyIndications: DysphagiaRefabdoning MD: | | | James Farmer MD (Referring ), Ava | | | KELLY Chi (Referring [...] white | | | light and the [employer] Intelligent Chromo Endoscopy (FICE) system. | | | There were esophageal mucosal changes classified as Lim's | | | stage C2-M3 per [place] criteria. These changes involved the | | [...] changes classified as Lim's stage C2-M3 per [place] | | | criteria. Recently biopsied. - [...] AMNumber | | | of Addenda: 0 [facility] | | | criteria are met. | [...] |Number of Addenda: 0 | | | [facility] | | + + + + +---------+ + + | Performing | Address | City/State/[facility] | Phone Number | [...]
--- OUTSIDE RECORDS SUMMARY | ~2020-05-16 | XMS | Encounter Summary ---
Demographics + + + | Address | [address] | | | [place] [address] | + + + | Home Phone | | + + + | Preferred Language | Unknown | + + + | Marital Status | Single | + + + | Hoahaoism Affiliation | 1013 | + + + [...] Team Providers + +------+ + | Care Stitcher Around Name | Role | Phone | + +------+ + | James Farmer MD | PCP | | + +------+ + Reason for Visit + + + | Reason | Comments | + + + | Medication Refill | Exam 3 - Requesting refill of Diltiazem | + + + Encounter Details +--------+---------+ + + + | Date | Type | Department | Care Team | Description | +--------+---------+ + + + | 11/22/ | Office | [facility] | Alfred Chamorro, | Dysphagia, | | 2020 | Visit | CARE [address] | [address] | unspecified type | | | | [place] | [place] | (Primary Dx) | | | | [address] | [address] | | | | | [phone] | | | +--------+---------+ + + + [...] + + + | Blood Pressure | 108/67 | 11/22/2019 10:57 AM | | | | | PST | | + + + + + | Pulse | 84 | 11/22/2019 10:57 AM | | | | | PST | | + + + + + | Temperature | 37 C (98.6 F) | 11/22/2019 10:57 AM | | | | | PST | | + + + + + | Respiratory Rate | 16 | 11/22/2019 10:57 AM | | | | | PST | | + + + + + | Oxygen Saturation | 97% | 11/22/2019 10:57 AM | | | | | PST | | + + + + + | Inhaled Oxygen | - | - | | | Concentration | | | | + + + + + | Weight | 73.9 kg (162 lb 14.7 | 11/22/2019 10:57 AM | | | | oz) | PST | | + + + + + | Height | - | - | | + + + + + | Body Mass Index | 28.86 | 09/05/2019 8:02 PM | | | | | PDT | | + + + + + documented in this encounter Patient Instructions Patient Instructions Alfred Chamorro MD - 11/22/2019 10:45 AM PST Diltiazem tablets Brand Name: Cardizem What is this medicine? DILTIAZEM (dil AMAYA a zejody) is a calcium-channel mark. It affects the amount of calcium fo und in your heart and muscle cells. This relaxes your blood vessels, which can reduce the am ount of work the heart has to do. This medicine is used to treat chest pain caused by angina . How should I use this medicine? Take this medicine by mouth with a glass of water. Follow the directions on the prescriptio n label. Do not cut, crush or chew this medicine. This medicine is usually taken before meal s and at bedtime. Take your doses at regular intervals. Do not take your medicine more often then directed. Do not stop taking except on the advice of your doctor or health care profes sional. Talk to your keg raiser regarding the use of this medicine in children. Special care may be needed. What side effects may I notice from receiving this medicine? Side effects that you should report to your doctor or health pet caregiver as soon as p ossible: allergic reactions like skin rash, itching or hives, swelling of the face, lips, or tong ue confusion, mental depression feeling faint or lightheaded, falls pinpoint red spots on the skin redness, blistering, peeling or loosening of the skin, including inside the mouth slow, irregular heartbeat swelling of the ankles, feet unusual bleeding or bruising Side effects that usually do not require medical attention (report to your doctor or health pet caregiver if they continue or are bothersome): change in sex drive or performance constipation or diarrhea flushing of the face headache nausea, vomiting tired or weak trouble sleeping What may interact with this medicine? Do not take this medicine with any of the following: cisapride hawthorn pimozide ranolazine red yeast rice This medicine may also interact with the following medications: buspirone carbamazepine cimetidine cyclosporine digoxin local anesthetics or general anesthetics lovastatin medicines for anxiety or difficulty sleeping like midazolam and triazolam medicines for high blood pressure or heart problems quinidine rifampin, rifabutin, or rifapentine What if I miss a dose? If you miss a dose, take it as soon as you can. If it is almost time for your next dose, ta ke only that dose. Do not take double or extra doses. Where should I keep my medicine? Keep out of the reach of children. Store at room temperature between 20 and 25 degrees C (68 and 77 degrees F). Protect from l ight. Keep container tightly closed. Throw away any unused medicine after the expiration bartolo e. What should I tell my health care provider before I take this medicine? They need to know if you have any of these conditions: heart problems, low blood pressure, irregular heartbeat liver disease previous heart attack an unusual or allergic reaction to diltiazem, other medicines, foods, dyes, or preservat parveen or trying to get breast-feeding What should I watch for while using this medicine? Check your blood pressure and pulse rate regularly. Ask your doctor or health care profruth onal what your blood pressure and pulse rate should be and when you should contact him or he r. You may feel dizzy or lightheaded. Do not drive, use machinery, or do anything that needs m ental alertness until you know how this medicine affects you. To reduce the risk of dizzy or fainting spells, do not sit or stand up quickly, especially if you are an older patient. Al cohol can make you more dizzy or increase flushing and rapid heartbeats. Avoid alcoholic dri nks. NOTE:This sheet is a summary. It may not cover all possible information. If you have questi ons about this medicine, talk to your doctor, pharmacist, or health care provider. Copyright 2019 [employer] documented in this encounter Progress Notes Alfred Chamorro MD - 11/22/2019 10:45 AM PSTFormatting of this note might be different fr om the original. Subjective: Patient ID: Cherrie Quijano is a 59 y.o. female.who presents today for Medication Refil l (Exam 3 - Requesting refill of Diltiazem ) . HPI Is being seen for requested medication refill. 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 He started her on diltiazem last week and this is been helping melonie mendously. She is able to swallow followed foods without feeling like it is getting stuck i n her throat. She has had no problems with side effects such as orthostasis or swelling in the feet. On her initial prescription the pharmacy was not able to give her the full amount as they had only a limited amount in the pharmacy. She was told to return for the remainde r the prescription but she is down to only 1 tablet left and that pharmacy is not open today . Requesting enough for 1 day until her pharmacy is open tomorrow. Patient Active Problem List Diagnosis Depression with [...] extremities Gait disorder Tertiary contraction of esophagus Past Surgical History: Procedure Laterality Date UPPER GASTROINTESTINAL ENDOSCOPY N/A 11/30/2017 Procedure: EGD; Surgeon: Loi Hui MD; Location: [facility] MEDICAL PROCEDURE UNIT UPPER GASTROINTESTINAL ENDOSCOPY N/A 04/05/2019 Procedure: EGD; Surgeon: Loi Hui MD; Location: [facility]ICAL PROCEDURE UNIT UPPER GASTROINTESTINAL ENDOSCOPY N/A 09/06/2019 Procedure: EGD; Surgeon: Rodriguez Gómez MD; Location: [facility] MEDICAL PROCEDURE UNIT VEIN SURGERY Current Outpatient Medications Medication Sig Dispense Refill acetaminophen (TYLENOL) 325 mg tablet Take 650 [...] 1 tablet by mouth 4 times daily. 120 tablet 3 dilTIAZem (CARDIZEM) 60 mg tablet Take 1 tablet by mouth 4 times daily. 8 tablet 0 Ginkgo Biloba (GINKOBA PO) Take 1 capsule by mouth Daily. Multiple Vitamin (MULTI-VITAMIN PO) Take 1 tablet by mouth Daily. pantoprazole (PROTONIX) 40 mg tablet Take 1 tablet by mouth every morning (before break fast). 30 tablet 4 UNABLE TO FIND Take 1-2 capsules by mouth Daily. Focus Factor No current facility-administered medications for this visit. She reports that she quit smoking about 20 years ago. Her smoking use included cigarettes. She has never used smokeless tobacco. She reports that she does not drink alcohol or use dr banegas. Allergies No active allergies Intolerance No active intolerances/contraindications ROS Objective: BP 108/67 | Pulse 84 | Temp 37 C (98.6 F) (Temporal) | Resp 16 | Wt 73.9 kg (162 lb 14.7 oz) | LMP (LMP Unknown) | SpO2 97% | BMI 28.86 kg/m Physical Exam Patient is alert and appropriate. The lungs are clear and heart is regular with no bradyca rdia or murmurs. Neck is supple with no JVD. Extremities are with no pedal edema. No results found for this or any previous visit (from the past 24 hour(s)). Assessment/Plan: Cherrie was seen today for medication refill. Diagnoses and all orders for this visit: Dysphagia, unspecified type Other orders - dilTIAZem (CARDIZEM) 60 mg tablet; Take 1 tablet by mouth 4 times daily. Patient is given a prescription for 8 of the Cardizem 60 mg tablets which she is taking 4 t imes daily. She is given 2 days rather just 1 day as a precaution if the pharmacy does not have the full remainder of her prescription available tomorrow. Follow-up with Dr. Farmer as commended. Return if symptoms worsen or fail to improve.Electronically signed by MD debbie Flores 11/22/2019 11:36 AM PSTdocumented in this encounter Plan of Treatment Not on filedocumented as of this encounter Visit Diagnoses + + | Diagnosis | + + | Dysphagia, unspecified type - Primary | + + documented in this encounter"
--- OUTSIDE RECORDS SUMMARY | ~2020-05-16 | XMS | Encounter Summary ---
Demographics + + + | Address | [address] | | | [place] [address] | + + + | Home Phone | | + + + | Preferred Language | Unknown | + + + | Marital Status | Single | + + + | Amish Affiliation | 1013 | + + + [...] Team Providers + +------+ + | Care Latrine Cleaner Name | Role | Phone | + +------+ + | James Farmer MD | PCP | | + +------+ + Reason for Visit +--------+--------+ + | Reason | Onset | Comments | | | Date | | +--------+--------+ + | Other | 08/04/ | | | | 2016 | | +--------+--------+ + Encounter Details +--------+ + + + + | Date | Type | Department | Care Team | Description | +--------+ + + + + | 08/04/ | Telephone | [facility] | James Farmer, | Other | | 2016 | | MEDICINE [address] [place] [address] | [address] | | | | | [place], | [place] | | | | | [place] [address] | [id number] | | | | | [phone] | | | +--------+ + + + [...] Telephone Encounter - Ashlie Blevins LPN - 08/05/2017 9:01 AM PDTLeft voice mail that pr boone wishes for her to complete the stress test first and then he will proceed with any ot her referrals she may need. elephone Encounter - Ashlie Blevins LPN - 08/04/2017 2:40 PM PDTI have reviewed th e notations from the office visit and it appears you have recommended a stress test that is still currently pending authorization and once that is completed you would like her to have an endoscopy. I do not see any occupational therapies/physical therapy were discussed or ord ered. Do you wish to add this? I will phone the patient back once you review and decide.Elec tronically signed by Ashlie Blevins LPN at 08/04/2017 2:42 PM PDTTelephone Encounter - Adalberto Ordonez - 08/04/2017 2:10 PM PDTContact/Caller: Cherrie Contact Number: [phone] Provider/Nurse: Darian Reason for Call: Pt calling in stating during her last visit it was discussed patient would be referred out to be seen at occupational and physical therapy? Please advise. Last Appointment: 08/02/17 Next Appointment: 10/05/17 documented in this encoun ter Plan of Treatment Not on filedocumented as of this encounter Visit Diagnoses Not on filedocumented in this encounter"
--- OUTSIDE RECORDS SUMMARY | ~2020-05-16 | XMS | Encounter Summary ---
Demographics + + + | Address | [address] | | | [place] [address] | + + + | Home Phone [...] Providers + +------+ + | Care Manager Books Name | Role | Phone | + +------+ + | No, Physician | PCP | Unavailable | + +------+ + Reason for Visit + +--------+ + | Reason | Onset | Comments | | | Date | | + +--------+ + | Appointment Question | 05/17/ | | | | 2016 | | + +--------+ + Encounter Details +--------+ + + + + | Date | Type | Department | Care Team | Description | +--------+ + + + + | 05/17/ | Telephone | [facility] | Meng Talley | Appointment Question | | 2016 | | [address] | MD Sarah [address] | | | | | [place] | [place] | | | | | [address] | [id number] | | | | | [phone] | | | +--------+ + + + [...] Encounter - Bridgett Galdamez Cert MA - 05/27/2017 10:54 AM PDTCalled pt and notifie d her that we would send the AVS with the list to her home address. elephone Mario moncada - Adalberto Mazariegos CMA - 05/24/2017 10:19 AM PDTCalled patient and left a message to call jody mireles back. elephone Meng Swanson MD - 05/18/2017 3:13 PM TIMOTHYI printed her AVS from her visit cher fagan on April 29 which included the list. She can come by and pick it up. Please let her know. ERS elephone Enc Adalberto Chowdhury CMA - 05/17/2017 2:16 PM PDTPatient is calling asking about a list of foods that she can eat that was given to her by Dr. Talley at the visit. She mispl aced it and cannot find it. Would like another copy but I cannot find it in her chart. Please advise document ed in this encounter Plan of Treatment Not on filedocumented as of this encounter Visit Diagnoses Not on filedocumented in this encounter"
--- OUTSIDE RECORDS SUMMARY | ~2020-05-16 | XMS | Encounter Summary ---
Demographics + + + | Address | [address] | | | [place] [address] | + + + | Home Phone [...] Team Providers + +------+ + | Care Switchboard Wirer Name | Role | Phone | + [...] | | | | dysphagia | | [address] | | | | | Procedures | | [address] | | | | | [facility] | | [place], | | | | | [place] | | [place] [address] | | | | | STUDY | | Phone: | | | | | MANOMETRY | | [phone] | | | | | ESOPHAGEAL | | Fax: | | | | | | | [phone] | +--------+--------+ + + + + Encounter Details +--------+ + + + + | Date | Type | Department | Care Team | Description | +--------+ + + + + | 01/30/ | Hospital | [facility] | Nishant Arceo | Esophageal dysphagia | | 2020 | Encounter | [facility] | MD Tang [address] | | | | | [address] | [address] [place] | | | | | [place], [place] | [place] [address] | | | | | [address] | [phone] | | | | | [phone] | | | +--------+ + + + [...] +---------+ + + | Blood Pressure | 113/61 | 01/31/2020 7:42 AM | | | | | PDT | | + +---------+ + + | Pulse | 79 | 01/31/2020 7:42 AM | | | | | PDT | | + +---------+ + + | Temperature | - | - | | + +---------+ + + | Respiratory Rate | 18 | 01/31/2020 7:42 AM | | | | | PDT | | + +---------+ + + | Oxygen Saturation | 97% | 01/31/2020 7:42 AM | | | | | PDT [...] +---------+ + + documented in this encounter Medications [...] + + documented as of this encounter Procedure Notes Nishant Arceo MD - 02/05/2020 4:49 PM PDTAssociated Order(s): GI MANOMETRYProcedure (s): GI MANOMETRYPre-Procedure Diagnose(s): Esophageal dysphagiaFormatting of this note migh t be different from the original. High-resolution esophageal manometry report Patient Name: Cherrie Quijano Patient : 1960 Date of Procedure: 01/31/2020 Referring Provider: KELLY Camarena Interpreting Physician: Nishant Arceo MD Reason for Referral dysphagia Procedure Information The high-resolution manometry catheter was placed without difficult by a nasal route. Findings Swallows analyzed: 10 Landmarks: Proximal LES: 43.0 LES length: 4.0 Esophageal length: 22.0 Hiatal hernia: no LES pressures: Basal (resp mean)(mmHg): 42.9 IRP (mean)(mmHg): 23.0 (<15.0) UES pressures: Basal (mmHg): 134.3 (34-104) Residual (mmHg): 6.3 Bartlett Classification: % failed: 20 % weak: 60 % ineffective: 80 % panesophageal pressurization: 0 % premature: 0 % fragmented: 0 % intact: 20 Distal latency: 9.7 DCI (mean) (mmHg-cm-s): 323.8 DCI (highest)(mmHg-cm-s): 527.8 Impedence Incomplete bolus clearance (%): 20 Summary This is an abnormal study. The IRP is 23.0mmHg, which is greater than 15 mmHg. The swallows are otherwise normal. 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 Also, her upper esophageal sphincter basal pressure was elevated. This could be contributin g to her dysphagia. She previously had a savary dilation in 2018, and I wonder if this helpe d her dysphagia at all. If it did she may benefit from repeat savary dilation. Recommendations Return to referring physician Would recommend referral to a tertiary care center to consider further treatment / evaluati on of her EGJ outflow obstruction (EUS, CT, botox, pneumatic dilation, POEMs). Also, her upper esophageal sphincter basal pressure was elevated. This could be contributin g to her dysphagia. She previously had a savary dilation in 2018, and I wonder if this helpe d her dysphagia at all. If it did she may benefit from repeat savary dilation. documented in thi s encounter Miscellaneous Notes Sedation Documentation - Romana Mata RN - 01/31/2020 8:25 AM PDTPatient drinking water without difficulty. Patient dresssed and ambulatory out. edation Documentation - Romana Mata RN - 01/31/2020 8 :15 AM PDT10 swallows completed without difficulty. Probe removed intact. Patient states Li docaine has worn off at this time, advised no restrictions to diet or activity.Electronicall y signed by Romana Mata RN at 01/31/2020 8:46 AM PDTSedation Documentation - Romana Mata RN - 01/31/2020 7:50 AM PDTManometery probe placed to right nare to marker 53. Patient t olerated well. Swallow study started.Electronically signed by Romana Mata RN at 0 8:46 AM PDTdocumented in this encounter Plan of Treatment Not on filedocumented as of this encounter Procedures + +--------+ + + + | Procedure Name | Priori | Date/Time | Associated Diagnosis | Comments | | | ty | | | | + +--------+ + + + | GI MANOMETRY | Routin | 02/05/2020 | Esophageal | Results for this | | | e | 4:49 PM | dysphagia | procedure are in the | | | | PDT | | results section. | + +--------+ + + + | MANOMETRY ESOPHAGEAL | | 01/31/2020 | Esophageal | | | | | 7:35 AM | dysphagia | | | | | PDT | | | + +--------+ + + + documented in this encounter Visit Diagnoses + + | Diagnosis | + + | Esophageal dysphagia - Primary Dysphagia, pharyngoesophageal phase | + + documented in this encounter Admitting Diagnoses + + | Diagnosis | + + | Esophageal dysphagia Dysphagia, pharyngoesophageal phase | + + documented in this encounter Administered Medications + +--------+ +-------+------+ + | Medication Order | MAR | Action | Dose | Rate | Site | | | Action | Date | | | | + +--------+ +-------+------+ + | lidocaine (XYLOCAINE) 2% jelly | Given | 01/31/20 | 6 mLs | | Nare-Lef | | PRN, Starting 01/31/20 at | | 20 7:48 | | | t | | 0748 | | AM PDT | | | | + +--------+ +-------+------+ + +---+---+ | | | +---+---+ documented in this encounter"
--- OUTSIDE RECORDS SUMMARY | ~2020-05-16 | XMS | Encounter Summary ---
Demographics + + + | Address | [address] | | | [place] [address] | + + + | Home Phone [...] Team Providers + +------+ + | Care Diver Tender Name | Role | Phone | + +------+ + | James Farmer MD | PCP | | + +------+ + Reason for Visit + +--------+ + | Reason | Onset | Comments | | | Date | | + +--------+ + | Appointment | 06/19/ | | | | 2018 | | + +--------+ + Encounter Details +--------+ + + + + | Date | Type | Department | Care Team | Description | +--------+ + + + + | 06/19/ | Telephone | [facility] | Radha Carranza | Appointment | | 2018 | | [facility] | D, PT [address] | | | | | [address] | [address] [place] | | | | | [place] | [id number] | | | | | [address] | | | | | | [phone] | | | +--------+ + + + [...] this encounter Miscellaneous Notes Telephone Encounter - Tom Jacobo - 06/19/2019 2:11 PM PDTPatient called to [facility] Due to a work conflict. Patient rescheduled to 06/29/19.Electronically sign ed by Tom Perez at 06/19/2019 2:12 PM PDTdocumented in this encounter Plan of Treatment Not on filedocumented as of this encounter Visit Diagnoses Not on filedocumented in this encounter"
--- OUTSIDE RECORDS SUMMARY | ~2020-05-16 | XMS | Encounter Summary ---
Demographics + + + | Address | [address] | | | [place] [address] | + + + | Home Phone [...] Providers + +------+ + | Care Lead Architect Name | Role | Phone | + [...] | +--------+ + + + + | 11/24/ | Documentati | [facility] | Ani Zepeda, | Discharge Without | | 2020 | on | [facility] | PT [address] | Visit | | | | [address] | [place] | | | | | [place] | [id number] | | | | | [address] | | | | | | [phone] | | | +--------+ + + + [...] documented as of this encounter Progress Notes Ani Zepeda PT - 11/24/2019 10:14 AM PSTFormatting of this note might be different f rom the original. [facility] [address] [facility] [phone] Physical Therapy Discharge Note This discharge is associated with the evaluation completed on 10/09/2019. Date: 11/24/2019 Patient Information Patient Name: Cherrie Quijano Date of : 1960 Age: 59 y.o. Encounter Diagnoses Code Name Primary? Z74.09 Reduced mobility R29.898 Weakness of both lower extremities Z74.09 Impaired functional mobility, balance, gait, and endurance Date of Onset: 09/15/2019 Referring Provider: James Farmer MD Last date and total # of PT Visits: 4 (11/01/2019 1:27 PM) Patient has not returned to therapy for further treatment. Goal status is unknown at this t radha. This note serves as discharge from therapy. Patient was denied more authorized visits by insurance. At this time we find it necessary to discharge this patient from therapy services. The last progress note or the patients initial evaluation will serve as objective status fo r purposes of discharge. Electronically signed by: Ani Zepeda PT, 11/24/2019 10:15 AM Patient Name: Cherrie Quijano/: 1960/ documented [...]
--- OUTSIDE RECORDS SUMMARY | ~2020-05-16 | XMS | Encounter Summary ---
Demographics + + + | Address | [address] | | | [place] [address] | + + + | Home Phone | | + + + | Preferred Language | Unknown | + + + | Marital Status | Single | + + + | Advent Affiliation | 1013 | + + + | Race | Unknown | + + + | Ethnic Group | Unknown | + + + Author + + + | Author | [facility] | | | and [place] | + + + | Organization | [facility] | | [...] Team Providers + +------+ + | Care Baler Operator Name | Role | Phone | + +------+ + | James Farmer MD | PCP | | + +------+ + Reason for Visit + + + | Reason | Comments | + + + | Nasal Congestion | RM 1- sinus congestion, cough, headache X 6 days | + + + Encounter Details +--------+---------+ + + + | Date | Type | Department | Care Team | Description | +--------+---------+ + + + | 03/04/ | Office | [facility] | Meng Talley | Acute bronchitis | | 2018 | Visit | [address] | MD Sarah [address] | with bronchospasm | | | | [place] | [place] | (Primary Dx) | | | | [address] | [address] | | | | | [phone] | | | +--------+---------+ + + + [...] + + + | Blood Pressure | 103/64 | 03/04/2018 11:31 AM | | | | | PDT | | + + + + + | Pulse | 83 | 03/04/2018 11:31 AM | | | | | PDT | | + + + + + | Temperature | 38.1 C (100.5 F) | 03/04/2018 11:31 AM | | | | | PDT | | + + + + + | Respiratory Rate | 20 | 03/04/2018 11:31 AM | | | | | PDT | | + + + + + | Oxygen Saturation | 95% | 03/04/2018 11:31 AM | | | | | PDT | | + + + + + | Inhaled Oxygen | - | - | | | Concentration | | | | + + + + + | Weight | 77.1 kg (170 lb) | 03/04/2018 11:31 AM | | | | | PDT | | + + + + + | Height | 157.5 cm (5' 2") | 03/04/2018 11:31 AM | | | | | PDT | | + + + + + | Body Mass Index | 31.09 | 03/04/2018 11:31 AM | | | | | PDT | | + + + + + documented in this encounter Patient Instructions Patient Instructions Meng Talley MD - 03/04/2018 10:45 AM Miguel Brown as direct ed until gone. Use albuterol inhaler 2 puffs inhaled 4 times daily as needed for cough and wheezing. Drin k plenty of fluids and get plenty of rest. Use xkpz-uxp-xoyaacu Tylenol or Advil as needed for fever, aches and pains. Lavage nose with saline solution 3-4 times a day to improve nasal congestion. Mix 1 level t easpoon of table salt with 2 cups of lukewarm water for nasal irrigation. Use cool mist vaporizer in bedroom and living space to reduce cough and airway irritation. Take ttdo-gdh-krkadni Mucinex or equivalent product as needed for thick mucous. Use Tessalon Perles as needed for cough at night. Return or follow-up with your primary doctor if not better in 1 week, sooner if experiencin g difficulty swallowing liquids, progressive productive cough, associated chest pain, shortn ess of breath, fever or progessive sinus pressure/headache. Viral or Bacterial Bronchitis with Wheezing(Adult) Bronchitis is an infection of the air passages. It often occurs during a cold and is usuall y caused by a virus. Symptoms include cough with mucus (phlegm) and low-grade fever. This il lness is contagious during the first few days and is spread through the air by coughing and sneezing, or by direct contact (touching the sick person and then touching your own eyes, no se, or mouth). If there is a lot of inflammation, air flow is restricted. The air passages may also go int o spasm, especially if you have asthma. This causes wheezing and difficulty breathing even i n people who do not have asthma. Bronchitis usually lasts 7 to 14 days. The wheezing should improve with treatment during e first week. An inhaler is often prescribed to relax the air passages and stop wheezing. An tibiotics will be prescribed if your doctor thinks there is also a secondary bacterial infec tion. Home care If symptoms are severe, rest at home for the first 2 to 3 days. When you go back to your usual activities, don't let yourself get too tired. Do not smoke. Also avoid being exposed to secondhand smoke. You may use popn-jwq-swmnppb medicine to control fever or pain, unless another medicine was prescribed. Note: If you have chronic liver or kidney disease or have ever had a stomach ulcer or gastrointestinal bleeding, talk with your healthcare provider before using these m edicines. Also talk to your provider if you are taking medicine to prevent blood clots.) Asp irin should never be given to anyone younger than 18 years of age who is ill with a viral in fection or fever. It may cause severe liver or brain damage. Your appetite may be poor, so a light diet is fine. Avoid dehydration by drinking 6 to 8 glasses of fluids per day (such as water, soft drinks, sports drinks, juices, tea, or soup) . Extra fluids will help loosen secretions in the nose and lungs. Fxwn-pwz-jsqwlhp cough, cold, and sore-throat medicines will not shorten the length of t he illness, but they may be helpful to reduce symptoms. (Note: Do not use decongestants if y ou have high blood pressure.) If you were given an inhaler, use it exactly as directed. If you need to use it more oft en than prescribed, your condition may be worsening. If this happens, contact your healthcar e provider. If prescribed, finish all antibiotic medicine, even if you are feeling better after only a few days. Follow-up care Follow up with your healthcare provider, or as advised. If you had an X-ray or ECG (electro cardiogram), a specialist will review it. You will be notified of any new findings that may affect your care. If you are age 65 or older, or if you have a chronic lung disease or condition that affects your immune system, or you smoke, ask your healthcare provider about getting a pneumococcal vaccine and a yearly flu shot (influenza vaccine). When to seek medical advice Call your healthcare provider right away if any of these occur: Fever of 100.4F (38C) or higher, or as directed by your healthcare provider Coughing up increasing amounts of colored sputum Weakness, drowsiness, headache, facial pain, ear pain, or a stiff neck Call 911 Call 911 if any of these occur. Coughing up blood Worsening weakness, drowsiness, headache, or stiff neck Increased wheezing not helped with medication, shortness of breath, or pain with breathi ng Date Last Reviewed: 08/04/201519997030-5002 [employer]. [address] [place], [place] [address]. All righ ts reserved. This information is not intended as a substitute for professional medical care. Always follow your healthcare professional's instructions. documented in this encounter Progress Notes Vicki Fernandez RN - 03/04/2018 10:45 AM PDT Administrations This Visit albuterol 2.5 mg/3 mL nebulizer solution 2.5 mg Admin Date 03/04/2018 Action Given Dose 2.5 mg Route Nebulization Administered By Vicki Fernandez RN chEdwina marshall MD - 03/04/2018 10:45 AM PDTFormatting of this note might be different from the origina l. Chief Complaint: Nasal Congestion (RM 1- sinus congestion, cough, headache X 6 days) Cherrie is a 57 y.o. female who comes in complaining of nasal congestion and progressive coug h for 7 days. Describes clear nasal congestion, post-nasal drainage, frontal headache, no si nus pain/pressure, no ear ache, no eye irritation, no sore throat and dry cough worse at nig ht, now productive. Has measured fever, has sweats and chills. No body aches. No nausea or v omiting. Mild diarrhea. No shortness of breath, mild wheezing without pleuritic chest burnin g/pain. Non-smoker and no hx of asthma or COPD. Never hospitalized for the same. Has been ta esperanza OTC Rx without improvement in symptoms. Had exposure to boyfriend with same. Patient's medications, allergies, past medical, surgical, social and family histories were reviewed and updated as appropriate. Objective: BP 103/64 | Pulse 83 | Temp (!) 38.1 C (100.5 F) (Temporal) | Resp 20 | Ht 1.575 m (5' 2") | Wt 77.1 kg (170 lb) | SpO2 95% | BMI 31.09 kg/m General Appearance: Alert, cooperative, no distress, appears stated age. Non toxic appeara nce. Breathing comfortably and speaking in full sentences. Head: Normocephalic, no facial sinus tenderness. No mastoid tenderness. Eyes: PERRL, conjunctiva mildly injected without exudates. Ears: Unremarkable TM's with clear external ear canals and gross normal hearing. Nose: Mildly congested with clear exudates. Throat: Erythematous, mildly edematous without exudates. Moist MM. Neck: Supple, symmetrical, no anterior cervical adenopathy. Lungs: Diffuse end expiratory wheezes with scattered rhonchi to auscultation bilaterally w ithout crackles or rales, respirations unlabored. Cardiac: Quiet precordium, Regular rhythm, no murmur or jordan. No ankle edema. Abdomen: Flat with normally active bowel sounds, Soft, non tender. No organomegaly. Skin: Skin color, texture, turgor normal, no rash. Repeat lung auscultation after nebulization at 2.5 mg of albuterol reveals marked improveme nt in expiratory wheezes and rhonchi. Two-view chest x-ray, today: IMPRESSION - No acute findings. Results for orders placed or performed in visit on 03/04/18 POCT Influenza A/B NAAT Result Value Ref Range Influenza A NAAT, POC Negative Negative Influenza B NAAT, POC Negative Negative Internal QC Acceptable Acceptable Assessment and Plans: 1. Acute bronchitis with bronchospasm albuterol 2.5 mg/3 mL nebulizer solution 2.5 mg XR Chest PA and Lateral POCT Influenza A/B NAAT azithromycin (ZITHROMAX) 250 mg tablet albuterol 90 mcg/puff inhaler benzonatate (TESSALON PERLES) 100 mg capsule 1 history of symptoms suggestive of viral URI with cough presents with recurrent fever, bro nchospasm and possible right basilar infiltrate on chest x-ray. Will treat empirically for possible, early community acquired pneumonitis. She was given the following instructions an d prescriptions. Plan: Take Z-Lyle as directed until gone. Use albuterol inhaler 2 puffs inhaled 4 times daily as needed for cough and wheezing. Drin k plenty of fluids and get plenty of rest. Use tpxe-xbz-tsvjuzs Tylenol or Advil as needed for fever, aches and pains. Lavage nose with saline solution 3-4 times a day to improve nasal congestion. Mix 1 level t easpoon of table salt with 2 cups of lukewarm water for nasal irrigation. Use cool mist vaporizer in bedroom and living space to reduce cough and airway irritation. Take rsrr-rrl-dquxcyu Mucinex or equivalent product as needed for thick mucous. Use Tessalon Perles as needed for cough at night. Return or follow-up with your primary doctor if not better in 1 week, sooner if experiencin g difficulty swallowing liquids, progressive productive cough, associated chest pain, shortn ess of breath, fever or progessive sinus pressure/headache. Meng Nelson documented in th is encounter Plan of Treatment Not on filedocumented as of this encounter Procedures + +--------+ + + + | Procedure Name | Priori | Date/Time | Associated Diagnosis | Comments | | | ty | | | | + +--------+ + + + | POCT INFLUENZA A/B | Routin | 03/04/2018 | Acute bronchitis | Results for this | | NAAT | e | 12:17 PM | with bronchospasm | procedure are in the | | | | PDT | | results section. | + +--------+ + + + | XR CHEST PA AND | STAT | 03/04/2018 | Acute bronchitis | Results for this | | LATERAL | | 12:09 PM | with bronchospasm | procedure are in the | | | | PDT | | results section. | + +--------+ + + + documented in this encounter Results POCT Influenza A/B NAAT (03/04/2018 12:17 PM PDT) + + + + + + | Component | Value | Ref Range | Performed | Pathologist | | | | | At | Signature | + + + + + + | Influenza A | Negative | Negative | | | | NAAT, POC | | | | | + + + + + + | Influenza B | Negative | Negative | | | | NAAT, POC | | | | | + + + + + + | Internal QC | Acceptable | Acceptable | | | + + + + + + + + | Specimen | + + | | + + XR Chest PA and Lateral (03/04/2018 12:09 PM PDT) + + | Specimen | + + | | + + + + + | Narrative | Performed At | + + + | XR CHEST PA AND LATERAL 03/04/2018 12:09 PM HISTORY: fever with | [facility] | | persistent cough. COMPARISON: None. Findings: Heart size is | | | within normal limits. Aorta is normal. Mediastinum is unremarkable. | | | Central pulmonary vasculature is normal. The bilateral lungs are | | | clear with no evidence for pleural effusion or pneumothorax. Mild to | | | moderate S-shaped curvature of the thoracolumbar spine is present | | | along with mild spondylosis. IMPRESSION - No acute findings. | | | Dictated and Signed by: Bear Bryant MD Electronically signed: | | | 03/04/2018 1:52 PM | | + + + + + | Procedure Note | + + | Manohar, Rad Results In - 03/04/2018 1:56 PM PDT XR CHEST PA AND LATERAL 03/04/2018 12:09 | | PMHISTORY: fever with persistent cough.COMPARISON: None.Findings:Heart size is within | | normal limits. Aorta is normal. Mediastinum isunremarkable. Central pulmonary | | vasculature is normal. The bilateral lungs areclear with no evidence for pleural | | effusion or pneumothorax. Mild to moderateS-shaped curvature of the thoracolumbar spine | | is present along with mildspondylosis.IMPRESSION -No acute findings.Dictated and Signed | | by: Bear Bryant MD Electronically signed: 03/04/2018 1:52 PM | |Heart size is within normal limits. Aorta is normal. Mediastinum is | |unremarkable. Central pulmonary vasculature is normal. The bilateral lungs are | |clear with no evidence for pleural effusion or pneumothorax. Mild to moderate | |S-shaped curvature of the thoracolumbar spine is present along with mild | |spondylosis. | | | |IMPRESSION - | |No acute findings. | | | |Dictated and Signed by: Bear Bryant MD | | Electronically signed: 03/04/2018 1:52 PM | + + + +---------+ + + | Performing | Address | City/State/Zipcode | Phone Number | | Organization | | | | + +---------+ + + | [facility] | | | | + +---------+ + + documented in this encounter Visit Diagnoses + + | Diagnosis | + + | Acute bronchitis with bronchospasm - Primary Acute bronchitis | + + documented in this encounter Administered Medications + +--------+ +--------+------+------+ | Medication Order | MAR | Action | Dose | Rate | Site | | | Action | Date | | | | + +--------+ +--------+------+------+ | albuterol 2.5 mg/3 mL nebulizer | Given | 03/04/20 | 2.5 mg | | | | solution 2.5 mg 2.5 mg, | | 18 12:11 | | | | | Nebulization, ONCE, 03/04/18 | | PM PDT | | | | | at 1215, For 1 dose | | | | | | + +--------+ +--------+------+------+ +---+---+ | | | +---+---+ documented in this encounter
--- OUTSIDE RECORDS SUMMARY | ~2020-05-16 | XMS | Encounter Summary ---
Demographics + + + | Address | [address] | | | [place] [address] | + + + | Home Phone [...] Team Providers + +------+ + | Care Licensing Engineer Name | Role | Phone | + +------+ + | James Farmer MD | PCP | | + +------+ + Reason for Visit +--------+--------+ + | Reason | Onset | Comments | | | Date | | +--------+--------+ + | Other | 10/09/ | swallow test follow up | | | 2018 | | +--------+--------+ + Encounter Details +--------+ + + + + | Date | Type | Department | Care Team | Description | +--------+ + + + + | 10/09/ | Telephone | [facility] | James Farmer, | Other (swallow test | | 2018 | | MEDICINE [address] | MD [address] | follow up) | | | | [place], | [place] | | | | | [place] [address] | [address] | | | | | [phone] | | | +--------+ + + + [...] Telephone Encounter - Maria Guadalupe Martel - 10/10/2019 10:13 AM PSTPatient scheduled . elephone Encounter - Ashlie Blevins LPN - 10/10/2019 7:56 AM PSTPlease call patient and advise that she bhavna todd need to schedule a follow up appointment to discuss this with the doctor in office.Electro nically signed by Ashlie Blevins LPN at 10/10/2019 7:57 AM PSTTelephone Encounter - Kerrie Huerta - 10/09/2019 4:52 PM PSTCherrie stated she had a friend look at her results from her swallow test and stated the test wasn't done correctly her shoulders were in the way. She i s still having issues swallowing and is requesting a different test to be ordered. Please ca ll her to discuss documented in this encounter Plan of Treatment Not on filedocumented as of this encounter Visit Diagnoses Not on filedocumented in this encounter"
--- OUTSIDE RECORDS SUMMARY | ~2020-05-16 | XMS | Encounter Summary ---
Demographics + + + | Address | [address] | | | [place] [address] | + + + | Home Phone | | + + + | Preferred Language | Unknown | + + + | Marital Status | Single | + + + | Taoism Affiliation | 1013 | + + + | Race | Unknown | + + + | Ethnic Group | Unknown | + + + Author + + + | Author | [facility] | | | and [place] | + + + | Organization | [facility] | | | and [...] Team Providers + +------+ + | Care Catalogue Librarian Name | Role | Phone | + +------+ + | James Farmer MD | PCP | | + +------+ + Reason for Visit + + + | Reason | Comments | + + + | Follow-up | 1 week | + + + Encounter Details +--------+---------+ + + + | Date | Type | Department | Care Team | Description | +--------+---------+ + + + | 04/26/ | Office | [facility] | James Farmer, | Pharyngoesophageal | | 2019 | Visit | MEDICINE [address] | [address] | dysphagia (Primary | | | | [place], | [place] | Dx); [place] | | | | [place] [address] | [address] | hystericus | | | | [phone] | | | +--------+---------+ + + + [...] + + + | Blood Pressure | 112/60 | 04/26/2020 11:22 AM | | | | | PDT | | + + + + + | Pulse | 92 | 04/26/2020 11:22 AM | | | | | PDT | | + + + + + | Temperature | 36.4 C (97.5 F) | 04/26/2020 11:22 AM | | | | | PDT | | + + + + + | Respiratory Rate | 18 | 04/26/2020 11:22 AM | | | | | PDT | | + + + + + | Oxygen Saturation | 97% | 04/26/2020 11:22 AM | | | | | PDT | | + + + + + | Inhaled Oxygen | - | - | | | Concentration | | | | + + + + + | Weight | 67.4 kg (148 lb 9.4 | 04/26/2020 11:22 AM | | | | oz) | PDT | | + + + + + | Height | - | - | | + + + + + | Body Mass Index | 25.51 | 04/21/2020 8:49 AM | | | | | PDT | | + + + + + documented in this encounter Progress Notes James Farmer MD - 04/26/2020 11:30 AM PDTFormatting of this note might be different f rom the original. Subjective: Patient ID: Cherrie Quijano is a 59 y.o. female. Chief Complaint Patient presents with Follow-up 1 week HPI: 59-year-old female who has had some esophageal dysfunction she has tertiary contractio ns of the esophagus and she has a globus hystericus and probably a conversion disorder about eating now she is afraid to eat anything she says everything causes her throat to close up and she is quite anxious about this when she eats. She has a history of benzodiazepine use. She says she has not been using her lorazepam. She is afraid to eat or drink anything she says although she is only lost a half a pound in a week. We discussed this today I told he r she can take instant breakfast with Benito milk which should be easier on her stomach. I am also going to have her try nitroglycerin 15 minutes for she eats to decrease the risk for esophageal spasm. We know this is not a long-term solution but she is being set up with [facility] GI doctors. 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 09/06/2019 new diagnosis so repeat egd in 1 year 08/2020 Benzodiazepine dependence (HCC) Chronic bilateral low back pain Depression with anxiety Dysphagia 06/16/2017 Esophageal motility disorder Esophagogastric junction outflow obstruction Gait disorder GERD (gastroesophageal reflux disease) Hiatal hernia Hyponatremia Impaired functional mobility, balance, gait, and endurance Obesity, Class I, BMI 30-34.9 Perimenopausal disorder Reduced mobility Reflux esophagitis Seizure (HCC) Severe protein-calorie malnutrition (HCC) Tertiary contraction of esophagus Thrombocytopenia (HCC) Weakness of both lower extremities Wears partial dentures upper Past Surgical History: Procedure Laterality Date ESOPHAGEAL DILATATION GASTRIC MANOMETRY N/A 01/31/2020 Procedure: MANOMETRY ESOPHAGEAL; Surgeon: Nishant Arceo MD; Location: [facility] GI MANOMETRY 02/05/2020 UPPER GASTROINTESTINAL ENDOSCOPY N/A 11/30/2017 Procedure: EGD; Surgeon: Loi Hui MD; Location: [facility] UPPER GASTROINTESTINAL ENDOSCOPY N/A 04/05/2019 Procedure: EGD; Surgeon: Loi Hui MD; Location: [facility] UPPER GASTROINTESTINAL ENDOSCOPY N/A 09/06/2019 Procedure: EGD; Surgeon: Rodriguez Gómez MD; Location: [facility] UPPER GASTROINTESTINAL ENDOSCOPY N/A 02/20/2020 Procedure: EGD; Surgeon: Nishant Arceo MD; Location: [facility] UPPER GASTROINTESTINAL ENDOSCOPY N/A 04/01/2020 Procedure: EGD W/ DILATATION- Botox; Surgeon: Nishant Arceo MD; Location: [facility] VEIN SURGERY Patient Active Problem List Diagnosis Date Noted POA GERD (gastroesophageal reflux disease) 11/30/2017 Unknown Priority: Medium Esophagogastric junction outflow obstruction 03/25/2020 Unknown Esophagitis, Stoddard grade D 03/25/2020 Unknown Candidiasis, esophageal 03/19/2020 [...] tablet by mouth Daily., Disp: , Rfl: diphenhydrAMINE-visc umfwhxhko-fphzjist-qttskvcms-simethicone (MIRACLE MOUTHWASH) susp ension, Take 5 mLs [...] mouth Daily. Focus Factor, Disp: , Rfl: Current Facility-Administered Medications: nitroglycerin (NITROSTAT) SL tablet 0.4 mg, 0.4 mg, Sublingual, Q5 Min PRN, James umaña MD Allergies Allergen Reactions Imipramine Hallucination Levsin (Hyoscyamine) Swelling Intolerance No active intolerances/contraindications Review of Systems Constitutional: Positive for weight loss. HENT: Negative. Eyes: Negative. Respiratory: Negative. Cardiovascular: Negative. Gastrointestinal: Positive for vomiting. Genitourinary: Negative. Musculoskeletal: Negative. Skin: Negative. Neurological: Negative. Endo/Heme/Allergies: Negative. Psychiatric/Behavioral: The patient is nervous/anxious. Objective: BP 112/60 | Pulse 92 | Temp 36.4 C (97.5 F) (Temporal) | Resp 18 | Wt 67.4 kg (148 lb 9.4 oz) | LMP (LMP Unknown) | SpO2 97% | No | BMI 25.51 kg/m Physical Exam General survey shows no [...] No rashes or skin lesions seen. Psychiatric: Quite fearful today Assessment/Plan: Cherrie was seen today for follow-up. Diagnoses and all orders for this visit: Pharyngoesophageal dysphagia Globus hystericus Other orders - nitroglycerin (NITROSTAT) SL tablet 0.4 mg 1. Nitroglycerin 0.4 mg 15 minutes for she eats we talked about the effects and side effec ts of this medication 2. I want her to get instant breakfast and mix it with Benito milk and eat this. She can eat this exclusively if she wants or she can progress to other foods if this stays down. 3. We will have her call in 3 days to follow-up No follow-ups on file. documented in this encounter Plan of Treatment Not on filedocumented as of this encounter Visit Diagnoses + + | Diagnosis | + + | Pharyngoesophageal dysphagia - Primary Dysphagia, pharyngoesophageal phase | + + | Globus hystericus Conversion disorder | + + documented in this encounter"
--- OUTSIDE RECORDS SUMMARY | ~2020-05-16 | XMS | Encounter Summary ---
Demographics + + + | Address | [address] | | | [place] [address] | + + + | Home Phone | | + + + | Preferred Language | Unknown | + + + | Marital Status | Single | + + + | Hindu Affiliation | 1013 | + + + [...] Team Providers + +------+ + | Care Department Helper Name | Role | Phone | + +------+ + | James Farmer MD | PCP | | + +------+ + Reason for Visit + +--------+ + | Reason | Onset | Comments | | | Date | | + +--------+ + | Appointment | 09/14/ | | | | 2016 | | + +--------+ + Encounter Details +--------+ + + + + | Date | Type | Department | Care Team | Description | +--------+ + + + + | 09/14/ | Telephone | [facility] | James Farmer, | Appointment | | 2016 | | [facility] [address] | [address] [facility] | | | | | [place], | [place] | | | | | [place] [address] | [address] | | | | | [phone] | | | +--------+ + + + [...] Telephone Encounter - Ashlie Blevins LPN - 09/14/2017 1:04 PM PDTPhoned back and advised patient we would need to discuss and refer in an office visit. Patient Radha colbert signed by Ashlie Blevins LPN at 09/14/2017 1:08 PM PDTTelephone Encounter - Magdy Blevins LPN - 09/14/2017 9:47 AM PDTBefore I call the patient back I have reviewed the [facility] office visit notes and it appears that there are issues with a conversion disorder that we re discussed and that she chose not to or could not do the endoscope procedure that was orde red to be done before. Would you like to see her back in the office before referring her joaquin k to GI as she is requesting be done in the message she left for us? elephone Encounter - Rush Silva - 09/14/2017 8:51 AM PDTContact/Caller: Cherrie Contact Number: [phone] Provider/Nurse: Darian Reason for Call: Patient went to Dr. Harris yesterday and they were told to go back to [facility] GI doctor. Patient is asking for the nurse to call. Last Appointment: 08-31-17 Next Appointment: 10-05-17 documented in th is encounter Plan of Treatment Not on filedocumented as of this encounter Visit Diagnoses Not on filedocumented in this encounter"
--- OUTSIDE RECORDS SUMMARY | ~2020-05-16 | XMS | Encounter Summary ---
Demographics + + + | Address | [address] | | | [place] [address] | + + + | Home Phone | | + + + | Preferred Language | Unknown | + + + | Marital Status | Single | + + + | Mu-Ism Affiliation | 1013 | + + + | Race | Unknown | + + + | Ethnic Group | Unknown | + + + Author + + + | Author | [facility] | | | and [place] | + + + | Organization | [facility] | | | [...] Team Providers + +------+ + | Care Closing Supervisor Name | Role | Phone | + +------+ + | James Farmer MD | PCP | | + +------+ + Reason for Visit +--------+--------+ + | Reason | Onset | Comments | | | Date | | +--------+--------+ + | Other | 02/05/ | | | | 2019 | | +--------+--------+ + Encounter Details +--------+ + + + + | Date | Type | Department | Care Team | Description | +--------+ + + + + | 02/05/ | Telephone | [facility] | [facility], | [facility] | | 2019 | | GASTROENTEROLOGY | KELLY Escalante [address] | | | | | [address] [place] | [place] | | | | | [address] [place], [place] | [place] | | | | | [address] | [address] | | | | | [phone] | | | +--------+ + + + [...] this encounter Miscellaneous Notes Telephone Encounter - Jocelyn Mora RN - 02/13/2020 9:51 AM PDTScheduled patient f or egd with prop on February 19. Checking in at 7am. Will eat a very light supper of mostly liquids and then clear liquids until midnight. She reports she continues to have difficulty with her swallowing. She is hoping to get referred on to [facility] pending results of EGD. [facility]elyn [facility]ra RN - 02/12/2020 3:00 PM PDTSpoke with patient and offered he r 02/20/20 or 02/23/20. She states her boyfriend only has Mondays off. Informed patient I do not have block time on a Wednesday. She will check around with her family to see if she can fi nd a auto driver on February 19 or February 22.Electronically signed by Jocelyn Mora RN at 02/11 3:03 PM PDTTelephone Encounter - Jocelyn Mora RN - 02/12/2020 2:49 PM PDTLe ft message offering EGD February 19 at 730 or 8 or 9. Optional date offered of January 22 at 730 or 9. ele phone Encounter - Berna Esqueda RN - 02/12/2020 11:19 AM PDTAttempted to contact pat ient but line rings busy like phone off hook; will attempt to contact patient again to sched ule Egd/prop (seizures -her case fits criteria to schedule due to dysphagia). elephone Encounter - Do naeem Perez 02/07/2020 2:09 PM PDTName of Caller: Cherrie Quijano Name of Patient:Cherrie Quijano Reason for call: Pt called and wanted to be schedule for EGD. Pt stated that it's really lao rd for her to swallow and eat. Pt aware of delays on procedures. Routing to clinical staff Provider/Nurse: [facility] Call back number:[phone] elephone Encounter - Bryanna Castanon - 02/06/2020 11:52 AM PDTPatient called to speak with Ava or her clinical staff stating "she would like to go ahead and get her throat stretched. Ava told her to call if she decided to have it done". Please advise and call her back at [phone].Electr onically signed by Bryanna Escobar at 02/06/2020 11:54 AM PDTdocumented in this encounter Plan of Treatment Not on filedocumented as of this encounter Visit Diagnoses + + | Diagnosis | + + | Esophageal dysphagia - Primary Dysphagia, pharyngoesophageal phase | + + | Seizure (HCC) Other convulsions | + + documented in this encounter
--- OUTSIDE RECORDS SUMMARY | ~2020-05-16 | XMS | Encounter Summary ---
Demographics + + + | Address | [address] | | | [place] [address] | + + + | Home Phone [...] Team Providers + +------+ + | Care Brush Hand Name | Role | Phone | + +------+ + | Katie Canchola MD | PCP | | + +------+ + Encounter Details +--------+ + + + + | Date | Type | Department | Care Team | Description | +--------+ + + + + | 09/25/ | Hospital | [facility] | | | | 2009 | Encounter | MED CTR LABORATORY | | | | | | [address] | | | | | | [place] | | | | | | [address] | | | | | | [phone] | | | +--------+ + + + [...]
--- OUTSIDE RECORDS SUMMARY | ~2020-05-16 | XMS | Encounter Summary ---
Demographics + + + | Address | [address] | | | [place] [address] | + + + | Home Phone [...] Team Providers + +------+ + | Care Priest Name | Role | Phone | + +------+ + | No, Physician | PCP | Unavailable | + +------+ + Reason for Visit + +--------+ + | Reason | Onset | Comments | | | Date | | + +--------+ + | Swallowing | 05/13/ | | | Difficulty | 2016 | | + +--------+ + Encounter Details +--------+ + + + + | Date | Type | Department | Care Team | Description | +--------+ + + + + | 05/13/ | Telephone | [facility] | Luis Escobar MD | Swallowing | | 2016 | | OTOLARYNGOLOGY [address] | [address] [place] | Difficulty | | | | [address] | [address] [place], | | | | | [place], [place] | [place] [address] | | | | | [address] | [phone] | | | | | [phone] | | | +--------+ + + + [...] this encounter Miscellaneous Notes Telephone Encounter - Janeth Stone RN - 05/13/2017 9:38 AM PDTPatient calls con mary that she won't be able to start taking the prilosec twice daily that Dr Escobar prescri bed until May 24 because of her insurance. Told her to continue taking in daily as she has b een and then increase on May 24. She is very concerned about what foods she can swallow. She states she has been on a liquid diet for a long time and is afraid to even eat a banana or swallow medication. Encouraged her to try some foods like applesauce, mashed potatoes, or wh atever she is comfortable eating until she has been taking the xanax for a couple of weeks a nd her throat feels better. Patient verbalizes understanding. Encouraged to call anytime if she has any concerns. documented in this encounter Plan of Treatment Not on filedocumented as of this encounter Visit Diagnoses Not on filedocumented in this encounter"
--- OUTSIDE RECORDS SUMMARY | ~2020-05-16 | XMS | Encounter Summary ---
Demographics + + + | Address | [address] | | | [place] [address] | + + + | Home Phone [...] Team Providers + +------+ + | Care Emergency Communications Dispatcher Name | Role | Phone | + +------+ + PCP | Unavailable | + +------+ + Encounter Details +--------+ + + + + | Date | Type | Department | Care Team | Description | +--------+ + + + + | 03/19/ | Hospital | [facility] | Burdick Teo | | | 1998 | Encounter | MED CTR EMERGENCY | MD Adam [address] | | | | | [place] [address] | [facility] | | | | | [place] | [place] [address] | | | | | [address] | [phone] | | | | | [phone] | | | +--------+ + + + [...]
--- OUTSIDE RECORDS SUMMARY | ~2020-05-16 | XMS | Encounter Summary ---
Demographics + + + | Address | [address] | | | [place] [address] | + + + | Home Phone | | + + + | Preferred Language | Unknown | + + + | Marital Status | Single | + + + | Jew Affiliation | 1013 | + + + | Race | Unknown | + + + | Ethnic Group | Unknown | + + + Author + + + | Author | [facility] | | | and [place] | + + + | Organization | [facility] | | | [...] Team Providers + +------+ + | Care Frame Straightener Name | Role | Phone | + +------+ + | James Farmer MD | PCP | | + +------+ + Reason for Visit +--------+--------+ + | Reason | Onset | Comments | | | Date | | +--------+--------+ + | Other | 09/05/ | esophagus issues | | | 2018 | | +--------+--------+ + Encounter Details +--------+ + + + + | Date | Type | Department | Care Team | Description | +--------+ + + + + | 09/05/ | Telephone | [facility] | James Farmer, | Other (esophagus | | 2018 | | MEDICINE [address] | [address] | issues ) | | | | [place], | [place] | | | | | [place] [address] | [id number] | | | | | [phone] | | | +--------+ + + + [...] Telephone Encounter - Ashlie Blevins LPN - 09/05/2019 1:59 PM PDTCalled back to Cherrie kyle that we have referred her to GI for evalution of this issue and she states she has rohith led them and they state her referral is still in review. She states she is just not able to keep food down or medicines and it is making horrible sounds with her breathing. She states she is just going to go to the ER. I advised if she felt the need to do this that was ok oth erwise she will have to contact the GI department about her appt or if they can get her refe rral reviewed and her in relatively soon.Electronically signed by Ashlie Blevins LPN at 2:05 PM PDTTelephone Encounter - Isamar Mcclure - 09/05/2019 1:16 PM PDTPatien t called wanting to speak with the nurse. Patient stated she is really having issues with h er esophagus and is not wanting to go to the ER or Urgent Care. Patient would like a call b k to advise. document ed in this encounter Plan of Treatment Not on filedocumented as of this encounter Visit Diagnoses Not on filedocumented in this encounter"
--- OUTSIDE RECORDS SUMMARY | ~2020-05-16 | XMS | Encounter Summary ---
Demographics + + + | Address | [address] | | | [place] [address] | + + + | Home Phone | | + + + | Preferred Language | Unknown | + + + | Marital Status | Single | + + + | Sabianism Affiliation | 1013 | + + + | Race | Unknown | + + + | Ethnic Group | Unknown | + + + Author + + + | Author | [facility] | | | and [place] | + + + | Organization | [facility] | | [...] Providers + +------+ + | Care Food Prep Worker Name | Role | Phone | + +------+ + | James Farmer MD | PCP | | + +------+ + Reason for Visit + +--------+ + | Reason | Onset | Comments | | | Date | | + +--------+ + | Follow-up | 02/19/ | post procedure | | | 2020 | | + +--------+ + Encounter Details +--------+ + + + + | Date | Type | Department | Care Team | Description | +--------+ + + + + | 02/19/ | Telephone | [facility] | Nishant Arceo | Follow-up (post | | 2019 | | GASTROENTEROLOGY | MD [address] | procedure) | | | | [address] [facility] | [address] | | | | | [address] [place] | [place] [address] | | | | | [address] | [phone] | | | | | [phone] | | | +--------+ + + + [...] Telephone Encounter - Berna Esqueda RN - 02/20/2020 4:33 PM PDTPatient called into clinic following procedure; she feels she might have overdone it; she ate a tuna sandwich s he dipped in au jus then had a chocolate bar; she stated she forgot to take her protonix bef ore so now her stomach feels "all acidy"; she was speaking really fast and bounced back to h er regular routine and stated that she usually takes in the morning with her other medicatio ns; recommended she take in the am before her other medications and wait at least 15 min bef ore she takes her other medications; reviewed post procedure instructions with patient; she verbalized understanding. 4: 43 PM PDTdocumented in this encounter Plan of Treatment Not on filedocumented as of this encounter Visit Diagnoses Not on filedocumented in this encounter
--- OUTSIDE RECORDS SUMMARY | ~2020-05-16 | XMS | Encounter Summary ---
Demographics + + + | Address | [address] | | | [place] [address] | + + + | Home Phone [...] Team Providers + +------+ + | Care Occupational Therapy Supervisor Name | Role | Phone | + +------+ + | James Farmer MD | PCP | | + +------+ + Reason for Visit +--------+--------+ + | Reason | Onset | Comments | | | Date | | +--------+--------+ + | Other | 03/27/ | | | | 2019 | | +--------+--------+ + Encounter Details +--------+ + + + + | Date | Type | Department | Care Team | Description | +--------+ + + + + | 03/27/ | Telephone | [facility] | Nishant Arceo | Other | | 2019 | | GASTROENTEROLOGY | MD [address] | | | | | [address] [place] | [facility] | | | | | [address] [place] | [place] [address] | | | | | [address] | [phone] | | | | | [phone] | | | +--------+ + + + [...] Telephone Encounter - Jocelyn Mora RN - 03/28/2020 10:46 AM PDTPatient calls sayin zunilda she will keep her appointment Wednesday for upper endoscopy with Botox injection. She will h ave COVID test done Wednesday morning.Electronically signed by Jocelyn Mora RN at 03/28 10:50 AM PDTTelephone Encounter - Jocelyn Mora RN - 03/28/2020 10:01 AM PDTPt calls saying her sister does not think she should have the upper endoscopy since she is goi ng to [place] anyway in April. Offered to take her off the schedule for Wednesday but informed patient that further follow-up for GI would need to be somewhere else. Informed her any re ferral to neurology would need to come from her PCP. Patient states she will need to think about it longer. She agrees to call back today if she is canceling her upper endoscopy for Wednesday. elephone Encounter - Jocelyn Mora RN - 03/28/2020 9:59 AM PDTLeft message returning her rohith l. elephone Kurt Kiser - 03/28/2020 9:47 AM PDTName of Caller:Cherrie Quijano Name of Patient:Cherrie Quijano Reason for call: patient called and doesn't fee like she needs a EGD since she had a few of them in the past. Patient wants a referral to a neurologist in [place], [place]. Patient has q uestions regarding COVID test prior to EGD. Patient is aware of Berna absence today. Routing to clinical staff. Provider/Nurse: Dr. Arceo / Berna Call back number:[phone] elephone Encounter - Yi Avila - 03/27/2020 11:09 AM PDTPatient would like a phone call back from [facility] , she says that she is trying to see a neurologist. She didn't leave any other informationEl ectronically signed by Yi Barrera at 03/27/2020 11:11 AM PDTdocumented in this encount er Plan of Treatment Not on filedocumented as of this encounter Results Coronavirus (COVID-19) NAAT (03/29/2020 8:05 AM PDT) + + + + + + | Component | Value | Ref Range | Performed | Pathologist | | | | | At | Signature | + + + + + + | SARS-CoV-2, | Not DetectedComment: | Not Detected | REFERENCE | | | DAWIT | This test was developed | | LAB [facility] | | | (COVID-19) | and its performance | | - [facility] | | | | characteristics | | | | | | determinedby [facility] | | | | | | Laboratories. This test | | | | | | has not been FDA cleared | | | | | | orapproved. This test | | | | | | has been authorized by | | | | | | FDA under an Emergency | | | | | | UseAuthorization (EUA). | | | | | | This test is only | | | | | | authorized for the | | | | | | duration oftime the | | | | | | declaration that | | | | | | circumstances exist | | | | | | justifying | | | | | | theauthorization of the | | | | | | emergency use of in | | | | | | vitro diagnostic tests | | | | | | fordetection of | | | | | | SARS-CoV-2 virus and/or | | | | | | diagnosis of COVID-19 | | | | | | infectionunder section | | | | | | 564(b)(1) of the Act, 21 | | | | | | U.S.C. 360bbb-3(b)(1), | | | | | | unlessthe authorization | | | | | | is terminated or revoked | | | | | | sooner.When diagnostic | | | | | | testing is negative, the | | | | | | possibility of a | | | | | | falsenegative result | | | | | | should be considered in | | | | | | the context of a | | | | | | patient'srecent | | | | | | exposures and the | | | | | | presence of clinical | | | | | | signs and | | | | | | symptomsconsistent with | | | | | | COVID-19. An individual | | | | | | without symptoms of | | | | | | COVID-19and who is not | | | | | | shedding SARS-CoV-2 | | | | | | virus would expect to | | | | | | have anegative (not | | | | | | detected) result in this | | | | | | assay. | | | | + + + + + + + + | Specimen | + + | Tissue - Specimen | | from throat | | (specimen) | + + + + + | Narrative | Performed At | + + + | Performed at: 01 - [facility] [address] [facility] [place] | REFERENCE LAB | | [id number] Production Foreman: Juan Carlos Gallagher MD, Phone: [phone] | [facility] | + + + + + + + + | Performing | Address | City/State/Zipcode | Phone Number | | Organization | | | | + + + + + | REFERENCE LAB | [address] | [place], [place] | [phone] | | [facility] | [facility] | [address] | | + + + + + documented in this encounter Visit Diagnoses + + | Diagnosis | + + | Esophageal dysphagia - Primary Dysphagia, pharyngoesophageal phase | + + documented in this encounter"
--- OUTSIDE RECORDS SUMMARY | ~2020-05-16 | XMS | Encounter Summary ---
Demographics + + + | Address | [address] | | | [place] [address] | + + + | Home Phone | | + + + | Preferred Language | Unknown | + + + | Marital Status | Single | + + + | Evangelical Affiliation | [id number] | + + + | Race | Unknown | + + + | Ethnic Group | Unknown | + + + Author + + + | Author | [facility] | | | and [place] | + + + | Organization | [facility] | | [...] Team Providers + +------+ + | Care Consumer Insight Manager Name | Role | Phone | + +------+ + | Rianna Farmer MD | PCP | | + +------+ + Reason for Visit + + + | Reason | Comments | + + + | Abdominal Pain | | + + + | Emesis | | + + + | Constipation | | + + + Encounter Details +--------+ + + + + | Date | Type | Department | Care Team | Description | +--------+ + + + + | 04/27/ | Emergency | [facility] | Rianna Cornejo, | Esophageal stricture | | 2020 | | [facility] | [address] | (Primary Dx); | | | | [place] [address] | [place], [place] | Dysphagia, | | | | [place], [place] | [address] | unspecified type | | | | [address] | | | | | | [phone] | | | +--------+ + + + [...] through Care Everywhere.Dysphagia Diet, Liquids in a (Bahamian)documented in this encounter Medications at Time of [...] Other | | | | | | wsqyeqjnc-znglixzp-v | (swish and swallow). | | | [...] into | 1 each | 0 | 04/05/20 | | | auto-injector 0.3 | the [...] + + + +---------+ + + | imipramine | Take 1 tablet by | 30 | 0 | 04/09/20 | | | (TOFRANIL) 25 mg | mouth nightly. | tablet | | 20 | | | tabletIndications: | | | | | | | Esophageal | | | | | | | dysmotility | | | | | | + + + +---------+ + + | Lidocaine HCl | Take 10 mLs by mouth | 240 mL | 0 | 03/19/20 | | | (MAGIC + NYSTATIN | every 4 hours. | | | 20 | | | MOUTHWASH) | | | | | | + + + +---------+ + + | LORazepam (ATIVAN) | Take 1 tablet by | 10 | 0 | 04/11/20 | | | 1 mg tablet | mouth Daily as | tablet | | 20 | | | | needed for Anxiety. | | | | | + + + +---------+ + + | Multiple Vitamin | Take 1 tablet by | | 0 | | | | (MULTI-VITAMIN PO) | mouth Daily. | | | | | + + + +---------+ + + | nitroglycerin | Place 1 tablet under | 25 | 2 | 04/26/20 | | | (NITROSTAT) 0.4 mg | the tongue every 5 | tablet | | 20 | | | SL tablet | minutes as needed | | | | | | | for Chest pain. May | | | | | | | take 15 minutes | | | | | | | before eating to | | | | | | | prevent esophageal | | | | | | | spasm | | | | | + + [...] + + + +---------+ + + | traZODone | Take 1 tablet by | 30 | 2 | 04/19/20 | | | (DESYREL) 50 mg | mouth nightly as | tablet | | 20 | | | tablet | needed for Insomnia. | | | | | + + + +---------+ + + | UNABLE TO FIND | Take 1-2 capsules by | | 0 | | | | | mouth Daily. Focus | | | | | | | Factor | | | | | + + + +---------+ + + documented as of this encounter ED Notes Josh Hutchison RN - 04/27/2020 3:02 PM PDTC/o abdominal pain with emesis and states she has not had a decent BM in 3 days, states ongoing history of abdominal problems and she has been on a liquid diet for several months and has been drinking breakfast smoothies for nour ishment. Francis Meyer MD - 04/27/2020 2:54 PM PDTFormatting of this note might be different from the origina l. Chief Complaint: "I feel dehydrated and my chest hurts" HPI: This 59 y.o. patient presents to the Emergency Department with difficulty swallowing. The patient reports that she has a history of some sort of esophageal problem and she has lao d issues with swallowing that are getting worse. She reports worsening pain in the esophagus /chest area and she has a dry throat and feels dehydrated. Saw her PMD yesterday and prescri bed NTG and took one dose with no relief. She reports she has only had one meal in the past 48 hours but has been able to hold down or swallow smoothies. She feels anxious and feels li ke she is not able to swallow anything. These symptoms are severe. No associated vomiting. N o abdominal pain per se but she feels like there is a tightness in her throat. April 01, 2020 she had an EGD at [facility] and dilated the esophagus and also used botox per her report. "Normal cricopharyngeus, upper third of esophagus and middle third of esophagus. Dilated to 18mm". Says that she has lost 50 lbs over the last month. Is awaiting an outpatient Speech Patholog y appointment on Wednesday but just feels terrible. Prior EGD was done 02/20/2020 here at this h ospital "One benign-appearing, intrinsic mild stenosis was found 35 cm from the incisors. Th is stenosis measured 1.7 cm (inner diameter) x 1 cm (in length). The stenosis was traversed. A TTS dilator was passed through the scope. Dilation with a 15-16.5-18 mm balloon dilator w as performed to 18 mm. The dilation site was examined and showed no change." Apparently she is awaiting on some sort of surgery to "cut the lower sphincter muscle". Past Medical and Surgical History I did review the patient's past medical and surgical history. The patient has a past medica l history of Mares's esophagus determined by biopsy (09/06/2019), Benzodiazepine dependenc e (HCC), Chronic bilateral low back pain, Depression with anxiety, Dysphagia (06/16/2017), Es ophageal motility disorder, Esophagogastric junction outflow obstruction, Gait disorder, SAFIA D (gastroesophageal reflux disease), Hiatal hernia, Hyponatremia, Impaired functional mobili ty, balance, gait, and endurance, Obesity, Class I, BMI 30-34.9, Perimenopausal disorder, Re duced mobility, Reflux esophagitis, Seizure (HCC), Severe protein-calorie malnutrition (HCC) , Tertiary contraction of esophagus, Thrombocytopenia (HCC), Weakness of both lower extremit ies, and Wears partial dentures. The patient has a past surgical history that includes Vein Surgery; Upper gastrointestinal endoscopy (N/A, 11/30/2017); Upper gastrointestinal endoscopy (N/A, 04/05/2019); Upper gastrointestinal endoscopy (N/A, 09/06/2019); Gastric Manometry (N/A , 01/31/2020); Manometry (02/05/2020); Upper gastrointestinal endoscopy (N/A, 02/20/2020); Esop hagus dilation; and Upper gastrointestinal endoscopy (N/A, 04/01/2020). Family and Social History I did review the patient's family and social history. The patient's family history includes Depression in her paternal grandfather; Diabetes in her paternal grandfather; Heart attack in her paternal grandmother; Heart disease in her paternal grandmother; High blood pressure in her paternal grandmother; Sleep apnea in an other family member. The patient reports that she has never smoked. She has never used smokeless tobacco. She reports that she does not d rink alcohol or use drugs. Medications and Allergies PHYSICS DEPARTMENT CHAIR Home Medications Medication Sig ascorbic acid (VITAMIN C) 500 mg chewable tablet Take 500 mg by mouth Daily. bismuth subsalicylate (PEPTO BISMOL) 262 mg chewable tablet Take 524 mg by mouth Daily as needed. busPIRone (BUSPAR) 5 mg tablet TAKE 1 TABLET BY MOUTH 3 TIMES DAILY NEEDED FOR ANXIE TY Cyanocobalamin (B-12 PO) Take 1 tablet by mouth Daily. diphenhydrAMINE-visc fwqhlnkyj-xmjzrgra-inxjbmiui-simethicone (MIRACLE MOUTHWASH) suspe nsion Take 5 mLs by mouth every 6 hours as needed for Other (swish and swallow). (RECIPE = 1 :1:1 mixture of Maalox, diphenhydrAMINE, viscous lidocaine) EPINEPHrine auto-injector 0.3 mg/0.3 mL injection Inject 0.3 mLs into the muscle as nee ded for Anaphylaxis. ibuprofen (ADVIL, MOTRIN) 200 mg tablet Take 400 mg by mouth every 6 hours as needed fo r Pain. imipramine (TOFRANIL) 25 mg tablet Take 1 tablet by mouth nightly. Lidocaine HCl (MAGIC + NYSTATIN MOUTHWASH) Take 10 mLs by mouth every 4 hours. LORazepam (ATIVAN) 1 mg tablet Take 1 tablet by mouth Daily as needed for Anxiety. Multiple Vitamin (MULTI-VITAMIN PO) Take 1 tablet by mouth Daily. nitroglycerin (NITROSTAT) 0.[address] 1 tablet under the tongue every 5 oliva wally as needed for Chest pain. May take 15 minutes before eating to prevent esophageal spasm non-formulary medication Take 2 tablets by mouth Daily. Super Energy supplement pantoprazole (PROTONIX) 40 mg tablet Take 1 tablet by mouth every morning (before break fast). traZODone (DESYREL) 50 mg tablet Take 1 tablet by mouth nightly as needed for Insomnia. UNABLE TO FIND Take 1-2 capsules by mouth Daily. Focus Factor Allergies Allergen Reactions Imipramine Hallucination Levsin [Hyoscyamine] Swelling Review of Systems Review of Systems Constitutional: Negative for chills, fever and weight loss. HENT: Negative for ear pain, hearing loss and tinnitus. Cardiovascular: Positive for chest pain. Gastrointestinal: Positive for nausea. As in history of present illness. A 10 system review was otherwise negative. Physical Examination VITAL SIGNS: Temp: 36.8 C (98.2 F) Pulse: 80 Resp: 16 SpO2: 98 % BP: 115/84 Body mass index is 25.23 kg/m. Constitutional: female patient, pleasant, alert and appropriate, conversant with nurse and staff. HEENT: Atraumatic, patient follows me around the room with their eyes, PERRL, Oropharynx sh ows no redness, moist mucus membranes. Neck: Supple with full range of motion. No JVD, lymphadenopathy, or meningismus. Respiratory: Good air movement bilaterally. No wheezes, no rales. Patient's work of breathi ng is normal. Cardiovascular: Normal S1 S2. No rubs or murmurs Abdomen: Soft, nontender. No rebound, guarding, or masses. Bowel tones normal. No pulsat ile masses Back: No CVA tenderness. No midline thoracic or lumbar spinal tenderness. Extremities: Nontender. No edema, no calf asymmetry. Present distal pulses. Skin: Warm, Dry, No obvious rashes. Capillary refill is brisk <3 seconds and shows good per fusion on areas of visible skin. Neurologic: Alert & oriented. Cranial nerves II-XII intact. No focal deficits. Gait is norm al. Speech is normal. Psychiatric: Normal mood, affect and judgement. No evidence of suicidal or homicidal ideati on at this time. Labs Results for orders placed or performed during the hospital encounter of 04/27/20 CBC with Differential Result Value Ref Range WBC 7.8 4.0 - 11.0 K/uL RBC 4.60 3.70 - 5.20 M/uL Hemoglobin 13.1 11.5 - 16.0 g/dL Hematocrit 37.1 34.0 - 47.0 % MCV 80.7 (L) 83.0 - 101.0 fL MCH 28.5 28.0 - 35.0 pg MCHC 35.3 32.0 - 36.0 g/dL RDW-CV 12.3 <15.0 % RDW-SD 35.6 35.1 - 46.3 fL Platelet Count 218 140 - 440 K/uL MPV 9.3 6.5 - 12.4 fL % Neutrophils 77.0 45.0 - 82.0 % % Lymphocytes 17.1 (L) 20.0 - 45.0 % % Monocytes 5.0 4.0 - 12.0 % % Eosinophils 0.3 0.0 - 5.0 % % Basophils 0.5 0.0 - 1.0 % % Immature Granulocytes 0.1 0.0 - 0.4 % Absolute Neutrophils 6.04 1.80 - 8.50 K/uL Absolute Lymphocytes 1.34 0.60 - 3.20 K/uL Absolute Monocytes 0.39 0.00 - 1.00 K/uL Absolute Eosinophils 0.02 0.00 - 0.40 K/uL Absolute Basophils 0.04 0.00 - 0.10 K/uL Absolute Immature Granulocytes 0.01 0.00 - 0.03 K/uL % nRBC 0 0 - 2 per 100 WBCs Absolute nRBC 0.00 0.00 - 0.01 K/uL Comprehensive Metabolic Panel Result Value Ref Range Na 132 (L) 136 - 145 mmol/L K 3.1 (L) 3.4 - 5.1 mmol/L Cl 94 (L) 98 - 107 mmol/L CO2 28 20 - 31 mmol/L Anion Gap 10 3 - 16 mmol/L Glucose 113 (H) 60 - 106 mg/dL BUN 6 (L) 9 - 23 mg/dL Creatinine 0.75 0.55 - 1.02 mg/dL eGFR if not >60 >=60 mL/min/1.73m2 Calcium 9.8 8.7 - 10.4 mg/dL Albumin 4.5 3.2 - 4.8 g/dL Bilirubin Total 1.2 0.3 - 1.2 mg/dL Total Protein 7.2 5.7 - 8.2 g/dL AST 32 0 - 34 U/L ALT 30 10 - 49 U/L Alkaline Phosphatase 88 46 - 116 U/L Globulin 2.7 2.1 - 3.8 g/dL Albumin/Globulin Ratio 1.7 0.8 - 1.9 BUN/Creatinine Ratio 8.0 Troponin I Result Value Ref Range Troponin I <0.01 <0.06 ng/mL Lipase Result Value Ref Range Lipase 33 12 - 53 U/L Extra Gold Top Tube Result Value Ref Range Extra Gold Top Tube Done Extra Blue Top Tube Result Value Ref Range Extra Blue Top Tube Done Extra Lavender Top Tube Result Value Ref Range Extra Lavender Top Tube Done ECG 12 lead Result Value Ref Range INTERPRETATION TEXT Not Confirmed Imaging Recent imaging: Ct Neck Chest Abdomen Pelvis W Contrast Result Date: 04/27/[address] NECK, CHEST, ABDOMEN, AND PELVIS, 04/27/2020 4:11 PM CLINICAL HISTORY: mass in n zachary with abdominal pain and emesis COMPARISON: Chest radiography April 05, chest CT March 12 TECHNIQUE: Axial images are performed through the neck, chest, abdomen, and pelvis followin g the uneventful intravenous administration of 90 mL Omnipaque 350 contrast. Multiplana r reformations are also performed. NECK FINDINGS: The pharynx and larynx and subglottic trac hea are unremarkable along with the submandibular and parotid glands. The floor of mouth st ructures are symmetric and unremarkable as well. A 1.6 cm ovoid, slightly hypoattenuating l esion is present in the left thyroid lobe. No pathologic lymph node enlargement or other ma ss lesion is apparent in the neck. Imaged orbits and intracranial contents are unremarkable . Imaged paranasal sinuses are well aerated along with the middle ear cavities and mastoid air cells. Incomplete fusion of the posterior arch of C1 is noted. There is straightening of the cervical lordosis with multilevel degenerative changes and variable stenosis which is greatest at C5-6 and C6-7. The cervical vasculature is widely patent. CHEST FINDINGS: Ther e is similar dilation of the ascending aorta up to a diameter of 4.2 cm and dilation of the main pulmonary artery up to a diameter of 3.6 cm is noted as well. There is no evidence of aortic dissection or visible filling defect in the pulmonary arterial tree to approximately the segmental level. Mild prominence of the wall of the distal esophagus is suggested altho ugh evaluation is limited by decompression. There is a small volume of gas in the proximal to mid esophagus. No pathologic lymph node enlargement is evident. There is no pleural or pericardial effusion or pneumothorax. A tiny calcified granuloma is again present in the po sterior right upper lobe. No other pulmonary nodule, consolidation or airway abnormality is evident. Healed appearing rib fractures are again suggested. There is S-shaped thoracolum bar curvature with multilevel vertebral spondylosis. ABDOMEN FINDINGS: Localized hypoattenu ation in the anterior left hepatic lobe adjacent to the fissure for the ligamentum teres is consistent with focal fatty infiltration. The liver, gallbladder, spleen, pancreas, adrenal glands and kidneys are otherwise unremarkable. No nephroureterolithiasis or hydroureterone phrosis is evident. There is moderate stool in the rectum without visible wall thickening. Left colonic diverticulosis is present, without evidence of diverticulitis. The stomach, b owel and appendix are otherwise unremarkable. No free air, ascites, pathologic lymph node e nlargement or hernia is evident. Abdominal vasculature is patent and unremarkable. Moderat e compression deformity of the L5 vertebral body is uncertain in chronicity. There is multil evel lumbar degenerative disc disease and spondylosis with variable stenosis. PELVIS FINDING S: The bladder, uterus and adnexa are unremarkable. No free air, free fluid, pathologic ly mph node enlargement, or hernia is evident. Early degenerative changes of the hips are pres ent. Bones and soft tissues are otherwise unremarkable. 1. NO VISIBLE PHARYNGEAL ABNORMALITY, MASS OR ADENOPATHY. 2. LEFT THYROID NODULE. CONSID ER NON-EMERGENT SONOGRAPHIC FOLLOW-UP. 3. MILD PROMINENCE OF THE WALL OF THE DISTAL ESOPHAG US, POTENTIALLY ACCENTUATED BY DECOMPRESSION. ESOPHAGITIS IS A CONSIDERATION. CLINICAL COR RELATION ADVISED. 4. ASCENDING AORTIC ECTASIA AND DILATION OF THE MAIN PULMONARY ARTERY, GUADARRAMA GGESTING PULMONARY ARTERIAL HYPERTENSION. 5. LEFT COLONIC DIVERTICULOSIS AND MODERATE RECTA L STOOL WITHOUT EVIDENCE OF BOWEL OBSTRUCTION OR VISIBLE INFLAMMATION. 6. THORACOLUMBAR SCO LIOSIS WITH L5 COMPRESSION DEFORMITY OF UNCERTAIN CHRONICITY AND MULTILEVEL DEGENERATIVE DARRIUS NGES INVOLVING THE CERVICAL AND LUMBAR SPINE, WITH VARIABLE STENOSIS. Images were provided f or interpretation on April 27, 2020 at 1615 hours. Results were finalized at 1650 hours. Dict ated and Signed by: Ky Krishna MD Electronically signed: 04/27/2020 4:51 PM Medical Decision Making EMS notes and [facility] records if applicable/available. Pertinent labs and imaging stud ies were reviewed (see above). Medication and allergy lists reviewed in [facility]. Nursing notes and old records were reviewed if available within [facility]. ER course: 2:54 PM - Patient care initiated. After introducing myself to the patient, I performed a ca reful history and physical examination. Patient has esophageal type pain and inability to swallow. She has a little stridor on ins piration. Maybe she is got a mass or something in her mediastinum or her neck. We will uyen ck a CT of the neck and chest. We will check a full set of labs including a cardiac work-up and then reevaluate. 17:42. CT scan shows significant esophagitis. Given her ECG is normal and troponin is neg ative with ongoing symptoms for 1 month, repeat troponin seems not indicated. I do not thin k this is cardiac ischemia. It is very clearly related to her ability or inability to swall ow. 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 She has no indication she needs admission but overall the long-term prognosis would seem better if she received a feeding tube for supplemental nutrition while waiting for these outpatient interventions. I had an extensive discussion with her about this and spoke with her signif icant other at length. The patient was agreeable and will follow-up with her doctor. I am not really aware of any medical therapies that would help her at this time and so continued symptomatic liquid diet is what I would recommend Emergency Department EKG interpretation: April 27, 2020 at 16:04 Rate: 74 Rhythm: NSR [place] interval: Normal QRS: Normal ST segments: Normal T-waves: Normal Comments: No acute ischemia Last Set of Vital Signs: Temp: 36.8 C (98.2 F) Pulse: 80 Resp: 16 SpO2: 98 % BP: 98/53 Impression 1. Esophageal stricture 2. Dysphagia, unspecified type Disposition: Discharge home Condition: Stable Follow-up Information Rianna Farmer MD. Specialty: Internal Medicine Why: If symptoms worsen Contact information: [place] [id number] Patient's Medications New Prescriptions No medications on file Modified Medications No medications on file Discontinued Medications No medications on file Discharge References/Attachments Dysphagia Diet, Liquids in a (Bahamian) Administrations This Visit iohexol (OMNIPAQUE 350) 350 mg/mL injection 90 mL Admin Date 04/27/2020 Action Given Dose 90 mL Route Intravenous Administered By Rianna Meraz, Technologist Rianna Cornejo MD 04/27/20 0983 documented in this e ncounter Plan of Treatment + +------+--------+ + + | Name | Type | Priori | Associated Diagnoses | Date/Time | | | | ty | | | + +------+--------+ + + | ED INFORMATION | [facility] | Routin | | 04/27/2020 2:54 PM | | EXCHANGE | | e [...] | | | 04/27/ | | | 2020 | | | 2:55 | | | [...] D?MRN: | | | | | | [id number] | | | [id number] | | | riteri | | | [...] .Flags | | | | | | [facility] | | | ED | | | Dispar | | | ity | | | Measur | | | e - | | | [facility] | | | has | | | [...] | | | s. | | | [facility] | | | | | | Health [...] | | | By: | | | [facility] | | | | | | Health [...] | | | MD | | | Link Assembler | | | al | | | [...] | +---+--------+ documented in this encounter Results CT Neck Chest Abdomen Pelvis w [...] | | intravenous administration of 90 mL [id number] contrast. Multiplanar reformations | | are also [...] Extra Lavender Top Tube (04/27/2020 3:13 PM PDT) + +-------+ + + + [...] [address] | [place] | [phone] | | [facility] | | [address] | | | - LABORATORY | | | | + + + + + Extra Blue Top Tube (04/27/2020 3:13 PM PDT) + +-------+ + + + [...] [address] | [place] | [phone] | | [facility] | | [address] | | | - LABORATORY | | | | + + + + + Extra Gold Top Tube (04/27/2020 3:13 PM PDT) + +-------+ + + + [...] [address] | [place] | [phone] | | [facility] | | [address] | | | - LABORATORY | | | | + + + + + Troponin I (04/27/2020 3:13 PM PDT) + + + + + [...] | | | | | | [employer] | | | | | [...] [address] | [place] | [phone] | | [facility] | | [address] | | | - LABORATORY | | | | + + + + + CBC with Differential (04/27/2020 3:13 PM PDT) + + + + + [...] + | [facility] | [address] | [place] | [phone] | | [facility] | | [address] | | | - LABORATORY | | [...] in | 12 - 53 U/L | [facility] | | | | use as of January 18, | | [facility] | | | | 2018. Check reference [...] [address] | [place] | [phone] | | [facility] | | [address] | | | - LABORATORY | | | | + + + + + Comprehensive Metabolic Panel (04/27/2020 3:12 PM PDT) + + + [...] | 0.75 | 0.55 - 1.02 | [facility] | | | | | mg/dL | [facility] | | | | | | MEDICAL | | | | | | CENTER - | | | | | | LABORATORY | | + + + + + + | eGFR if not | >60Comment: GLOMERULAR | >=60 | [facility] | | | | FILTRATION | mL/min/1.73m2 | [facility] | | | [place] | RATE,ESTIMATED | | MEDICAL | | | | mL/min/1.32l4Supa than | | CENTER - | | [...] 4.5 | 3.2 - 4.8 g/dL | [facility] | | | | | | [facility] | | | | | | MEDICAL | | | | | | CENTER - | | | | | | LABORATORY | | + + + + + + | Bilirubin | 1.2 | 0.3 - 1.2 mg/dL | [facility] | | | Total | | | [facility] | | [...] + | [facility] | [address] | [place] | [phone] | | [facility] | | [address] | | | - LABORATORY | | | | + + + + + ECG 12 lead (04/27/2020 3:04 PM PDT) + + + + + [...] | | | | VIRGIE MAXWELL MD ([id number]) | | | | | | on [...] | Diagnosis | + + | Esophageal stricture - Primary Stricture and stenosis of esophagus | + + | Dysphagia, unspecified type | + + documented in this encounter Administered Medications + +--------+ +--------+------+------+ | Medication Order | MAR | Action | Dose | Rate | Site | | | Action | Date | | | | + +--------+ +--------+------+------+ | iohexol (OMNIPAQUE 350) 350 | Given | 04/27/20 | 90 mLs | | | | mg/mL injection 90 mL 90 mL, | | 20 4:12 | | | | | Intravenous, ONCE PRN, Other, for | | PM PDT | | | | | imaging CT study, Starting Sat | | | | | | | 04/27/20 at 1612, For 1 dose, | | | | | | | Radiology | | | | | | + +--------+ +--------+------+------+ +---+---+ | | | +---+---+ documented in this encounter
--- OUTSIDE RECORDS SUMMARY | ~2020-05-16 | XMS | Encounter Summary ---
Demographics + + + | Address | [address] | | | [place] [address] | + + + | Home Phone [...] Team Providers + +------+ + | Care Truck Cleaner Name | Role | Phone | + +------+ + | James Farmer MD | PCP | | + +------+ + Reason for Visit + +--------+ + | Reason | Onset | Comments | | | Date | | + +--------+ + | ED Follow-up | 04/12/ | after ED follow up call | | | 2019 | | + +--------+ + Encounter Details +--------+ + + + + | Date | Type | Department | Care Team | Description | +--------+ + + + + | 04/12/ | Telephone | [facility] | Miesha Galindo | ED Follow-up (after | | 2019 | | [facility] CASE | | ED follow up call) | | | | MANAGEMENT [address] | | | | | | [place], | | | | | | [place] [address] | | | | | | [phone] | | | +--------+ + + + [...] Miscellaneous Notes Telephone Encounter - Miesha Galindo - 04/12/2020 12:53 [facility] Date of visit: 04/11/2020 Patient complaints: allergic reaction; anxiety; hallucinations Diagnosis: anxiety No answer. Left VM for call back. Electronically signed by: Miesha Galindo 04/12/2020 12:55 PM documented in this enco unter Plan of Treatment Not on filedocumented as of this encounter Visit Diagnoses Not on filedocumented in this encounter"
--- OUTSIDE RECORDS SUMMARY | ~2020-05-16 | XMS | Encounter Summary ---
Demographics + + + | Address | [address] | | | [place] [address] | + + + | Home Phone [...] Team Providers + +------+ + | Care Bath Steward Name | Role | Phone | + +------+ + | James Farmer MD | PCP | | + +------+ + Reason for Visit + + + | Reason | Comments | + + + | Dysphagia | Egd 09/06/2019 | + + + Evaluate & Treat [...] ST | | | | | | [place], [place] | [place], | | | | | | [address] | [place] [address] | | | | | | Phone: | Phone: | | | | | | [phone] | [phone] | | | | | | Fax: | Fax: | | | | | | [phone] | [phone] | + +--------+ + + + + Encounter Details +--------+---------+ + + + | Date | Type | Department | Care Team | Description | +--------+---------+ + + + | 11/02/ | Office | [facility] | Rodriguez Gómez MD | Esophageal dysphagia | | 2019 | Visit | GASTROENTEROLOGY | [address], [place] | (Primary Dx) | | | | [address] [place] | [address] [address] | | | | | [address] [place], [place] | [address] | | | | | [address] | | | | | | [phone] | | | +--------+---------+ + + + [...] + + + | Blood Pressure | 120/70 | 2019 2:56 PM | | | | | PST | | + + + + + | Pulse | 84 | 2019 2:56 PM | | | | | PST | | + + + + + | Temperature | - | - | | + + + + + | Respiratory Rate | 16 | 2019 2:56 PM | | | | | PST | | + + + + + | Oxygen Saturation | 98% | 2019 2:56 PM | | | | | PST | | + + + + + | Inhaled Oxygen | - | - | | | Concentration | | | | + + + + + | Weight | 76.5 kg (168 lb 10.4 | 2019 2:56 PM | | | | oz) | PST | | + + + + + | Height | - | - | | + + + + + | Body Mass Index | 29.88 | 09/05/2019 8:02 PM | | | | | PDT | | + + + + + documented in this encounter Patient Instructions Patient Instructions Karina Betancourt CMA - 2019 3:00 PM PSTPatient is scheduled for 11/16/2019 at 1300 for her video esophagram. Her check in time is [id number] lauren d by Karina Betancourt CMA at 2019 3:56 PM PST documented in this encounter H&P Notes Rodriguez Gómez MD - 2019 3:00 PM PST Cherrie Quijano is an 59 y.o. female. HPI The patient returns to discuss dysphagia.The patientI is frustrated and crying and she has continued to have trouble swallowing. She can only eat soft foods the most consistentcy shonda t she can tolerate is Cream of wheat.The patient's lost approximately 30 pounds since her dy sphasia became markedly severe in July of this year. The patient states that food seems to catch just below the sternal notch The patient has had multiple upper endoscopies the [facility] in August that showed Mares's metaplasia. There was no atypia.Video esophagram speech pathology showed no aspiration and oral pharyngeal dysphasia was not noted. Bariu m swallow in 2016 showed poor esophageal motility.The patient has recently been started on M edication for Parkinson's disease but is noticed no improvement of her symptoms In the week following institution of therapy.There is a family history of the same. Review of the patient's medications show only dicyclomine which might be interfering with S wallowing function which she takes only on an as-needed basis.The patient is on isosorbide Dinitrate 10 mg daily The patient's was scheduled for barium swallow and improved by insurance but She misunderst ood the instructions and was waiting for radiology to call her to schedule the same. 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 * Blood pressure 120/70, pulse 84, resp. rate 16, weight 76.5 kg (168 lb 10.4 oz), SpO2 98 %, not currently . ROS Weight loss as listed above,Patient denies aspiration symptoms Physical Exam Done by observation only,Agitated tearful Assessment: Progressive dysphasia etiology unclear,Suspect esophageal motor abnormality Plan: Barium swallow Scheduled for November 16 The patient's was told to eat or Drink Supplemental nutritional drinks carlos soft foods at least on an hourly schedule Pendingher medication schedule.Hopefully this will maintain the patient's weight. Rodriguez Gómez MD 2019 documented i n this encounter Plan of Treatment Not on filedocumented as of this encounter Visit Diagnoses + + | Diagnosis | + + | Esophageal dysphagia - Primary Dysphagia, pharyngoesophageal phase | + + documented in this encounter"
--- OUTSIDE RECORDS SUMMARY | ~2020-05-16 | XMS | Encounter Summary ---
Demographics + + + | Address | [address] | | | [place] [address] | + + + | Home Phone | | + + + | Preferred Language | Unknown | + + + | Marital Status | Single | + + + | Jewish Affiliation | 1013 | + + + [...] Team Providers + +------+ + | Care Balance Engineer Name | Role | Phone | [...] Physical | Diagnoses | [place], | [facility] | | | Services | Therapy / | Difficulty | James Dennis MD | Fan | | | Required | Rehabilitatio | in walking | [address] | Therapy [address] | | | | n | Procedures | [address] [place] [address] | | | | | PT [place] | [place] | [place], | | | | | [place]PROVED | [address] | [place] [address] | | | | | | Phone: | Phone: | | | | | | [phone] | [phone] | | | | | | Fax: | Fax: | | | | | | [phone] | [phone] | +--------+ + + + + + Encounter Details +--------+---------+ + + + | Date | Type | Department | Care Team | Description | +--------+---------+ + + + | 06/15/ | Office | [facility] | Radha Carranza | Chronic bilateral | | 2019 | Visit | [facility] | D, PT [address] | low back pain | | | | [address] | [address]VE [place], [place] | without sciatica; | | | | [place], [place] | [id number] | Impaired functional | | | | [address] | | mobility, balance, | | | | [phone] | | gait, and endurance; | | [...] encounter Progress Notes Radha Carranza, PT - 06/15/2019 3:15 PM PDT [facility] [address] [place] [id number] Physical Therapy Daily Treatment Note Date: 06/15/2019 Patient Information Patient Name: Cherrie Quijano Date of : 1960 Age: 58 y.o. Encounter Diagnoses Code Name Primary? M54.5, G89.29 Chronic bilateral low back pain without sciatica Z74.09 Impaired functional mobility, balance, gait, and endurance R26.81 Gait instability Date of Onset: 04/20/2019 Referring Provider: James Farmer MD Rehab Precautions Office Visit from 05/31/2019 in [facility] Rehab Precautions Precautions ARTF, Seizure Start Time: 1523 Stop time: 1605 Duration: 42 minutes Timed Treatment Codes: 42 minutes # of PT Visits to Date: 3 Subjective: Pt presents to therapy with walking stick. She reports that she has been working on improvi ng her sitting and standing posture and working on picking up her feel. Says back pain is 4- 5/10 but has been doing a lot. Started her job at [employer] and that has kept her busy. Says th at she has only been able to do her exercises 1x since last visit. Pain Assessment: Pain Rating Pre Assessment: 5 Pain Rating Post Assessment: 4 Location: middle of low back Objective: Pelvis still asymmetrical but improved from initial eval. R ASIS higher and L LE longer, s o used MET to help improve symmetry. Leg length symmetry also restored w/ MET. Supine exercises to improve muscle activation, control, and coordination: -ant/post pelvic tilts x 10 -folded pillow squeezes x 10 w/ cues for symmetrical muscle contraction -B hip abd/ER w/ red theraband x 10 w/ cues for symmetrical muscle contraction -bridges x 5 w/ cues and facilitation for R improved glut activation; progression to slidin g L foot forward to help focus on R activation x 5. Seated exercises to improve R ankle ROM and muscle activation/strength: AROM R dorsiflexion/eversion x 10 w/ facilitation. Pt able to demo improved R ankle ROM aft er ex. Repeated same exercise w/ red theraband x 10. *pt using HEP handout and trying to follow directions for the above. Still requires cues fo r improved technique with all exercises. Standing exercise at // bars: -lateral stretches x 5-6 on R and x 1-2 on L -heel raises x 10 w/ UE support for balance -toe raises x 10 w/ UE support for balance -marching forward and stepping back matthew. 5 ft x 4 each w/ hiking pole in L hand and cues to focus on improved posture, core stabilization, increased weight shift onto R LE, and also a chieving heel strike when walking forwards. -standing on level floor: head turns and looking up/down x 30 sec each with progression to standing on foam cushion and repeating exercise 30 sec each w/ light touch on bar for stabil ity. -standing with feet shoulder width apart and then with feet together w/ eyes closed x 30 se c each. Gait training with hiking pole in L hand and initial visual feedback using full length mirr or and then progression to walking in hallway matthew. 200 ft total. Cues for standing tall and more equal weight shift. Pt issued 2nd red theraband and instructed to add calf stretches to HEP. Assessment: Pt demos improving posture and less pain but still with pelvis asymmetry, scoliosis, signif icant R hip and core weakness, impaired strength/control/limited ROM in ankles, especially on R, and vestibular hypofunction, which is resulting in back pain and gait instability, so will benefit from continued therapy to address these in order to minimize fall risk, decreas e pain, improve gait pattern and balance. Plan: Plan to re-test with DGI, TUG, ABC, 10MWT, and 4Stage balance test for progress note. Will need to request further visits, as pt is currently only approved for 3 visits. Overall plan is for progressive dynamic balance program with addition of vestibular/occular exercis es. Treat pelvic obliquity and lateral shift as needed. Gait training on even and uneven sandra faces. Electronically signed by: Radha Carranza PT, 06/15/2019 18:21 Patient Name: Cherrie Quijano/: 1960/ documented in [...]
--- OUTSIDE RECORDS SUMMARY | ~2020-05-16 | XMS | Encounter Summary ---
Demographics + + + | Address | [address] | | | [place] [address] | + + + | Home Phone [...] Team Providers + +------+ + | Care Extruder Operator Vertical Name | Role | Phone | + +------+ + | James Farmer MD | PCP | | + +------+ + Reason for Visit + + + | Reason | Comments | + + + | Re-assessment/ | | | Significant Change | | | Care Plan | | + + + Evaluate & Treat (Routine) +--------+ + + + + + | Status | Reason | Specialty | Diagnoses / | Referred By | Referred To | | | | | Procedures | Contact | Contact | +--------+ + + + + + | Closed | Specialty | Physical | Diagnoses | [place], | [facility] | | | Services | Therapy / | Reduced | James Dennis MD | Fan | | | Required | Rehabilitatio | mobility | [address] | Therapy [address] | | | | n | Unsteady | [address] [place] | [address] | | | | | gait | [place], [place] | [place], | | | | | Procedures | [address] | [place] [address] | | | | | PT | Phone: | Phone: | | | | | | [phone] | [phone] | | | | | | Fax: | Fax: | | | | | | [phone] | [phone] | +--------+ + + + + + Encounter Details +--------+---------+ + + + | Date | Type | Department | Care Team | Description | +--------+---------+ + + + | 10/31/ | Office | [facility] | Ani Zepeda, | Reduced mobility; | | 2018 | Visit | [facility] | PT [address] | Weakness of both | | | | [address] | [place] | lower extremities; | | | | [place] | [address] | Impaired functional | | | | [address] | | mobility, balance, | | | | [phone] | | gait, and endurance | +--------+---------+ [...] as of this encounter Progress Notes Ani Zepeda, PT - 10/31/2019 11:30 AM PSTFormatting of this note might be different f rom the original. [facility] [address] [place] [address] Physical Therapy Progress Assessment Date: 10/31/2019 Patient Information Patient Name: Cherrie Quijano Date of : 1960 Age: 58 y.o. Encounter Diagnoses Code Name Primary? Z74.09 Reduced mobility R29.898 Weakness of both lower extremities Z74.09 Impaired functional mobility, balance, gait, and endurance Date of Onset: 09/15/2019 Referring Provider: James Farmer MD Rehab Precautions Fluoroscopy Exam from 09/22/2019 in [facility] Rehab Precautions Precautions None Rehab Learning Style Fluoroscopy Exam from 09/22/2019 in [facility] Learning Style Patient's [employer]imum Learning Style listening, reading, observation, performance of task Pain Assessment: Pain Scale Used: NUMERIC Pain Rating Pre Assessment: 1 Location: low back SUBJECTIVE: Cherrie has completed 4 visits for treatment of reduced mobility, balance impairm ents and decreased lower extremity strength. Patient reports improvements with increased str ength. However continues to report difficulty with balance, limp with ambulating and strengt h OBJECTIVE: Observation/Posture/Alignment: Standing posture: right shoulder elevated; right hip elevate d Gait: Decreased left arm swing, external rotation of left foot; excessive pronation of left foot, decreased heel contact Functional Movements: Sit<>Stand: Functional Sit<>Supine: NT Double leg squat: Thoracic shifts toward right side; decreased depth Single leg squat: L= NT R= NT Toe Walking: Unable due to balance Heel Walking: Unable due to strength and balance Balance: SLS R and L: Unable to hold more than 1 sec with U E support Romberg: EO 10 sec hold ; EC 3 secs Tandem R: 1-2 secs before LOB Tandem L: 5 secs before LOB ROM: LE: WFL Strength: LE: 4-/5 ankle DF and evertors bilaterally, 5/5 b ilateral quadriceps and hamstrings, 4/5 bilateral hip iliospoas Standardized Tests: The Activities-specific Balance Confidence (ABC) Scale 1. walk around the house?: 90 2. walk up or down the stairs?: 90 3. bend over and filler picker a slipper from the front of a closet floor?: 70 4. reach for a small can off a shelf at eye level?: 80 5. stand on your tip toes and reach for something above your head?: 90 6. stand on a chair and reach for something?: 70 7. sweep the floor?: 100 8. walk outside the house to a car parked in the driveway?: 80 9. get into and out of a [...] while you are holding onto a railing?: 80 15. step onto or off an escalator while holding onto parcels such that you cannot hold onto the railing?: 90 16. walk outside on icy sidewalks?: 60 ABC Scale Score (Calculated): 80.62 Assessment Cherrie has been participating in therapy for treatment of decreased leg strength, balance a nd difficulty with walking. Patient demonstrates objective improvements with stability with walking when using an assistive device. Cherrie continues to have impairments with balance, lo wer extremity strength and mobility which are affecting her ability to complete functional t asks such as daily activities and work duties. Patient requires continued skilled therapy se rvices to achieve the following updated functional goals. Rehabilitation potential: Patient demonstrates fair potential to achieve established goals to address the documented impairments by participating in skilled physical therapy services. Goals: Patient Reported Outcome Goals Patient Specific Functional Scale Goal 1: Pt will demonstrate ability to tandem stance for 30 secs without loss of balance to improve confidence with stability Patient Specific Functional Scale Goal 1 Status: 1 Patient Specific Functional Scale Goal 1 Status Comment: pt unable to maintain balance with out UE support Patient Specific Functional Scale Goal 2: Increase gait to 30 minutes over varied terrain w ithout limitations or pain. Patient Specific Functional Scale Goal 2 Status: 1 Patient Specific Functional Scale Goal 2 Status Comment: pt demonstrates improved stability with gait when using assistive device; continues to have decreased gait speed Patient Specific Functional Scale Goal 3: Independent home exercise program to facilitate i ndependent symptom management. Patient Specific Functional Scale Goal 3 Status: 5 Patient Specific Functional Scale Goal 3 Status Comment: pt participating with HEP Plan Date of Onset: 09/15/2019 Start of Care Date: 10/09/2019 Requested # of Visits: 12 visits 2x/week for 6 weeks Certification From: 10/09/2019 Certification To: 11/20/2019 Treatment Plan/Interventions PT [id number] - Therapeutic [id number] - Neuromuscular [id number] - Gait T [id number] - Therapeutic [id number] - Manual [id number] - Self Care/Home Management PT Evaluation Patient and/or family has indicated understanding of treatment needs and actively participa yossi in the creation of this plan for care. Today's Treatment Start Time: 1130 Stop time: 1215 Duration: 45 minutes Timed Treatment Codes: 40 minutes # of PT Visits: 4 Objective: Therapeutic exercise to promote strength and mobility for improved functional mobility:(20 mins) NuStep 8 mins level 3 Calf raises at balance bar Hip abduction on blue foam pad R & L Total gym squats level 16 Rocker board A/P Therapeutic activity to promote stability and motor control for improved functional mobilit y with daily activities: -Gait training with bilateral walking sticks (10 mins)- cues for alternating arm and leg Self care education reviewed home exercise program and updated goals. Encouraged pt to use cane or walking sticks. (10 mins) Next Visit: Progress strengthening and balance activities Electronically signed by: Ani Zepeda PT, 11/01/2019 1:37 PM Patient Name: Cherrie Urias Samm/: 1960/ documented [...]
--- OUTSIDE RECORDS SUMMARY | ~2020-05-16 | XMS | Encounter Summary ---
Demographics + + + | Address | [address] | | | [place] [address] | + + + | Home Phone [...] Team Providers + +------+ + | Care Principal Embedded Software Engineer Name | Role | Phone | + +------+ + | James Farmer MD | PCP | | + +------+ + Reason for Visit + + + | Reason | Comments | + + + | Follow-up | 3 week | + + + Encounter Details +--------+---------+ + + + | Date | Type | Department | Care Team | Description | +--------+---------+ + + + | 10/26/ | Office | [facility] | James Farmer, | Gait disorder | | 2019 | Visit | MEDICINE [address] | | | | | [place], | [place] | | | | | [place] [address] | [id number] | | | | | [phone] | | | +--------+---------+ + + + [...] + + + | Blood Pressure | 128/76 | 10/26/2019 8:30 AM | | | | | PST | | + + + + + | Pulse | 84 | 10/26/2019 8:30 AM | | | | | PST | | + + + + + | Temperature | 36.7 C (98.1 F) | 10/26/2019 8:30 AM | | | | | PST | | + + + + + | Respiratory Rate | 18 | 10/26/2019 8:30 AM | | | | | PST | | + + + + + | Oxygen Saturation | 97% | 10/26/2019 8:30 AM | | | | | PST [...] encounter Progress Notes James Farmer MD - 10/26/2019 8:30 AM PSTFormatting of this note might be different f rom the original. Subjective: Patient ID: Cherrie Quijano is a 58 y.o. female. Chief Complaint Patient presents with Follow-up 3 week HPI: 58-year-old female who has a history of swallowing difficulty. This is been getting w orse recently. She brought her sister in who gives an interesting family history of multipl e family members having Parkinson's disease particularly Parkinson's disease that came on ea rly. Her sister is 4 years younger than her and is on Sinemet for her Parkinson's disease s he also has a cousin that is younger than her that has Parkinson's disease. She has been lao ving difficulty walking she has had trouble swallowing. Her sister had similar symptoms. T yunior are wondering if she might be manifesting signs and symptoms of early Parkinson's diseas e. I think this is a reasonable question especially given the family history. 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 09/06/2019 new diagnosis so repeat egd in 1 year 08/2020 Depression with anxiety Dysphagia 06/16/2017 GERD (gastroesophageal reflux disease) Seizure (HCC) Wears partial dentures upper Past Surgical History: Procedure Laterality Date UPPER GASTROINTESTINAL ENDOSCOPY N/A 11/30/2017 Procedure: EGD; Surgeon: Loi Hui MD; Location: [facility] UPPER GASTROINTESTINAL ENDOSCOPY N/A 04/05/2019 Procedure: EGD; Surgeon: Loi Hui MD; Location: [facility] UPPER GASTROINTESTINAL ENDOSCOPY N/A 09/06/2019 Procedure: EGD; Surgeon: Rodriguez Gómez MD; Location: [facility] VEIN SURGERY Patient Active Problem List Diagnosis Date Noted POA GERD (gastroesophageal reflux disease) 11/30/2017 Unknown Priority: Medium Gait disorder 10/26/2019 Unknown Reduced mobility 10/09/2019 [...] an xiety, Disp: 30 tablet, Rfl: 2 carbidopa-levodopa (SINEMET) 10-100 mg per tablet, Take 1 tablet by mouth 2 times rob y., Disp: 60 tablet, Rfl: 3 Cyanocobalamin (B-12 PO), Take 1 tablet by mouth Daily., Disp: , Rfl: dicyclomine (BENTYL) 10 mg/5 mL liquid, Take 10 mLs by mouth Twice daily as needed (d ifficulty swallowing)., Disp: 120 mL, Rfl: 4 Ginkgo Biloba (GINKOBA PO), Take 1 capsule [...] Genitourinary: Negative. Musculoskeletal: Negative. Skin: Negative. Neurological: Positive for focal weakness. Endo/Heme/Allergies: Negative. Psychiatric/Behavioral: Negative. Objective: BP 128/76 | Pulse 84 | Temp 36.7 C (98.1 F) (Temporal) | Resp 18 | LMP (LMP Unknow n) | SpO2 97% Physical Exam Neurologic exam today reveals that she is alert and active She had no cogwheel rigidity She definitely had an abnormal gait. She was unable to do a tandem gait without holding on her Romberg was normal She had some mild hyperflexibility in the right leg compared to the left. Her strength matthew eared to be normal. She did appear to turn in block when she walked. Assessment/Plan: Cherrie was seen today for follow-up. Diagnoses and all orders for this visit: Gait disorder Other orders - carbidopa-levodopa (SINEMET) 10-100 mg per tablet; Take 1 tablet by mouth 2 times meryl ly. . She will let me know where she would like to go for neurologic evaluation 2. We will have her try Sinemet to see if this makes a difference in the way she walks and the way she swallows if it does this will help with her confirmation of possible Parkinson' s disease. No follow-ups on file. documented in this encounter Plan of Treatment Not on filedocumented as of this encounter Visit Diagnoses + + | Diagnosis | + + | Gait disorder Abnormality of gait | + + documented in this encounter"
--- OUTSIDE RECORDS SUMMARY | ~2020-05-16 | XMS | Encounter Summary ---
Demographics + + + | Address | [address] | | | [place] [address] | + + + | Home Phone | | + + + | Preferred Language | Unknown | + + + | Marital Status | Single | + + + | Jainism Affiliation | 1013 | + + + [...] Team Providers + +------+ + | Care Firer Helper Name | Role | Phone | + +------+ + | James Farmer MD | PCP | | + +------+ + Reason for Visit +---------+--------+ + | Reason | Onset | Comments | | | Date | | +---------+--------+ + | Testing | 09/01/ | stress test orders | | | 2016 | | +---------+--------+ + Encounter Details +--------+ + + + + | Date | Type | Department | Care Team | Description | +--------+ + + + + | 09/01/ | Telephone | [facility] | James Farmer, | Testing (stress test | | 2016 | | [facility] [address] | [address] | orders) | | | | [place], | [place] | | | | | [place] [address] | [address] | | | | | [phone] | | | +--------+ + + + [...] Encounter - Ashlie Blevins LPN - 09/01/2017 3:45 PM PDTOriginal order for stre ss test was not completed due to patient having issues with a limp and the automotive engineering technician states he felt the patient would be unable to do the test. They are asking for a new order for a n uclear med stress test. Please advise once new orders are placed documented in this encounter Plan of Treatment Not on filedocumented as of this encounter Visit Diagnoses Not on filedocumented in this encounter"
--- OUTSIDE RECORDS SUMMARY | ~2020-05-16 | XMS | Encounter Summary ---
Demographics + + + | Address | [address] | | | [place] [address] | + + + | Home Phone [...] + + + | Author | [facility] | | | and [place] | + + + | Organization | [facility] | | [...] Providers + +------+ + | Care Sales Operations Analyst Name | Role | Phone | + +------+ + | James Farmer MD | PCP | | + +------+ + Reason for Visit + + + | Reason | Comments | + + + | Follow-up | exam 3/ abx on / sinus pressure and fever | + + + Encounter Details +--------+---------+ + + + | Date | Type | Department | Care Team | Description | +--------+---------+ + + + | 11/28/ | Office | [facility] | James Lama, | Acute maxillary | | 2018 | Visit | CARE [address] | [address] | sinusitis, | | | | [place] | [place] | recurrence not | | | | [id number] | [phone] | specified (Primary | | | | [phone] | | Dx) | +--------+---------+ + + [...] + + + | Blood Pressure | 127/87 | 11/28/2017 11:17 AM | | | | | PST | | + + + + + | Pulse | 82 | 11/28/2017 11:17 AM | | | | | PST | | + + + + + | Temperature | 37.4 C (99.4 F) | 11/28/2017 11:17 AM | | | | | PST | | + + + + + | Respiratory Rate | 12 | 11/28/2017 11:17 AM | | | | | PST | | + + + + + | Oxygen Saturation | 96% | 11/28/2017 11:17 AM | | | | | PST | | + + + + + | Inhaled Oxygen | - | - | | | Concentration | | | | + + + + + | Weight | 79.4 kg (175 lb) | 11/28/2017 11:17 AM | | | | | PST | | + + + + + | Height | 157.5 cm (5' 2") | 11/28/2017 11:17 AM | | | | | PST | | + + + + + | Body Mass Index | 32.01 | 11/28/2017 11:17 AM | | | | | PST | | + + + + + documented in this encounter Patient Instructions Patient Instructions James Lama MD - 11/28/2017 10:15 AM PSTTake antibiotics as pres cribed and use nasal saline rinses. Call back in a couple days regarding your culture resul ts. Should symptoms persist we may get a sinus CT scan with a referral to ENT. Return as n eeded. documented in this encounter Progress Notes James Lama MD - 11/28/2017 10:15 AM PSTFormatting of this note might be different fr om the original. Subjective: Chief Complaint: Follow-up (exam 3/ finished abx on / sinus pressure and fever ) Cherrie is a 57 y.o. female who comes in complaining of possible sinus infection. Has no oth er records over the last month she is been treated twice for possible sinus infection, initi ally with Augmentin which seem to resolve symptoms, with them quickly recurred again to wher e she was then treated with clarithromycin. Again she thought symptoms cleared with them re curring again yesterday with increased sinus pain and pressure and sinus congestion. She st ates that her lungs feel clear. She does feel a little feverish. She states she has a hist ory of chronic recurrent sinus infections. Cherrie does not smoke. Patient's medications, allergies, past medical, surgical, social and family histories were reviewed and updated as appropriate. Objective: BP 127/87 | Pulse 82 | Temp 37.4 C (99.4 F) (Temporal) | Resp 12 | Ht 1.575 m (5' 2 ") | Wt 79.4 kg (175 lb) | SpO2 96% | BMI 32.01 kg/m General Appearance: Alert, cooperative, no distress, appears stated age Head: Normocephalic, without obvious abnormality, with diffuse sinus tenderness to percuss ion Eyes: PERRL, conjunctiva/corneas clear Ears: Normal TM's and external ear canals Nose: Nares normal, septum midline, mucosa normal with mild congestion Throat: Oropharynx normal Neck: Supple, symmetrical, no adenopathy Skin: Dry, normal color Assessment and Plans: Acute on top of possible chronic sinusitis, will treat with nasal saline rinses and doxycyc line. Should symptoms persist or recur despite that I suggested that we may try a CT scan o f her sinuses with referral to ENT. Return here or follow-up with Dr. Farmer as needed.El ectronically signed by James Lama MD at 11/28/2017 12:03 PM PSTdocumented in this enco unter Plan of Treatment Not on filedocumented as of this encounter Procedures + +--------+ + + + | Procedure Name | Priori | Date/Time | Associated Diagnosis | Comments | | | ty | | | | + +--------+ + + + | CULTURE, WOUND, | Routin | 11/28/2017 | Acute maxillary | Results for this | | SMEAR | e | 11:57 AM | sinusitis, | procedure are in the | | | | PST | recurrence not | results section. | | | | | specified | | + +--------+ + + + documented in this encounter Results Culture, Wound, Smear (11/28/2017 11:57 AM PST) + + + + + + | Component | Value | Ref Range | Performed | Pathologist | | | | | At | Signature | + + + + + + | Culture | 1+ Staphylococcus aureus | | [facility] | | | | | [facility] | | [facility] | | [facility] - | | | | | | [facility]ORY | | + + + + + + | Culture | 1+ Usual Respiratory | | [facility] | | | | [facility] | | [facility] | | | | | | [facility] | | | | | | [facility] - | | | | | | LABORATORY | | + + + + + + | Gram Stain | No white blood cells | | [facility] | | | Result | (PMNs) seen | | [facility] | | | | | | [facility] | | | | | | [facility] - | | | | | | LABORATORY | | + + + + + + | Gram Stain | No organisms seen | | [facility] | | | Result | | | [facility] | | | | | | [facility] | | | | | | [facility] - | | | | | | LABORATORY | | + + + + + + + + | Specimen | + + | Wound - Specimen | | from internal nose | | (specimen) | + + + + +--------+ + | Organism | Antibiotic | Method | Susceptibility | + + +--------+ + | Staphylococcus | Clindamycin | | Resistant | | aureus | | | | + + +--------+ + | Staphylococcus | Oxacillin | | 0.5 ug/mL: | | aureus | | | Sensitive | + + +--------+ + | Staphylococcus | Penicillin G | | >=0.5 ug/mL: | | aureus | | | Resistant | + + +--------+ + | Staphylococcus | Rifampin | | <=0.5 ug/mL: | | aureus | | | Sensitive | + + +--------+ + | Staphylococcus | Tetracycline | | <=1 ug/mL: | | aureus | | | Sensitive | + + +--------+ + | Staphylococcus | Trimethoprim + | | <=10 ug/mL: | | aureus | Sulfamethoxazole | | Sensitive | + + +--------+ + + + + + + | Performing | Address | City/State/Zipcode | Phone Number | | Organization | | | | + + + + + | [facility] | [address] | [place] | [phone] | | [facility] | | [address] | | | - LABORATORY | | | | + + + + + documented in this encounter Visit Diagnoses + + | Diagnosis | + + | Acute maxillary sinusitis, recurrence not specified - Primary | + + documented in this encounter
--- OUTSIDE RECORDS SUMMARY | ~2020-05-16 | XMS | Encounter Summary ---
Demographics + + + | Address | [address] | | | [place] [address] | + + + | Home Phone [...] + + + | Author | [facility] | | | and [place] | + + + | Organization | [facility] | | [...] Team Providers + +------+ + | Care Highway Painter Helper Name | Role | Phone | + +------+ + | James Farmer MD | PCP | | + +------+ + Encounter Details +--------+ + + + + | Date | Type | Department | Care Team | Description | +--------+ + + + + | 09/22/ | [facility] | [facility] | Demetri Apple, | Oropharyngeal | | 2019 | Encounter | MED CTR XRAY [address] | MD [address] | dysphagia; | | | | [place] | [place], [place] | Gastroesophageal | | | | [place] [address] | [address] | reflux disease, | | | | [phone] | [phone] | esophagitis presence | | | | | | not specified | | | | | Rehana Easton, | | | | | | Speech Pathologist | | | | | | [address] | | | | | | [place], [place] | | | | | | [address] | | | | | [...] + + +---------+ + + | Black Lexyosh 540 | Take 1 capsule by | [...] TABLET BY | 90 | 11 | 09/11/20 | | | dinitrate (ISORDIL) | MOUTH [...] documented as of this encounter Progress Notes Rehana Easton, Speech Pathologist - 09/22/2019 4:58 PM PDTFormatting of this note might b e different from the original. Speech Therapy Plan of Care Date: 09/22/2019 Patient Name: Cherrie Quijano Date of : 1960 Encounter Diagnoses Code Name Primary? R13.12 Oropharyngeal dysphagia K21.9 Gastroesophageal reflux disease, esophagitis presence not specified Date of Onset: 06/22/2019 Start of Care Date: 09/22/2019 Requested # of Visits: 1 visit Certification From: 09/22/2019 Certification To: 09/22/2019 Clinical Impressions: Cherrie Quijano is a 58 y.o. female who presents for a VFSS/MBS e valuation due to experiencing the following symptoms: dry mouth, heartburn, loses food from mouth, increased time or effort, nausea/and/or vomiting, Hoarse or wet voice, weight loss. Dwain briceno was seen for a Modified Barium Swallow study (MBS) to determine cause and severity of d ysphagia. Chart review reveals history of GERD, reflux esophagitis, reported s/sx of dyspha ariel, hiatal hernia with GERD, esophageal dysmotility, depression with anxiety, conversion di sorder. Cherrie was challenged with puree, ground solids 1/4 inch, chopped solids 1/2 inch, br ead, thin liquid and nectar think liquid by tsp, cup, straw mixed with barium under fluorosc opy using the right lateral and anterior-posterior view. She did demonstrate flash shallow laryngeal penetration with liquids but no tracheal aspiration during the MBS with solids or liquids trialed today. AR MANAGER explained the results of the MBS using visuals, test slides, handouts and demonstration . AR MANAGER educated on diet recommendations, postural strategies, behavioral strategies and oral motor exercises. See above for AR MANAGER diet recommendation. Pt was provided with education of acid reflux/management, hydration, dry mouth management, and techniques for reducing anxiety /stress in regards to eating. Pt was provided with home exercises program for lingual streng thening. Handouts of all recommendation were provided to the patient. Psychological/psychoso cial components may be impacting swallow functions/stress levels. Minimal dysphagia. Manageable by compensatory strategies. Swallow WFL. Recommendations: 1. Consistently utilize compensatory/behavioral strategies during meals 2. Maintain hydration 3. Reduced anxiety/stressful situations 4. Limit distractions during meals 5. Follow reflux precautions 6. Participate in home exercise program for several weeks 7. Continue with mechanical soft diet per GI recommendations Goals: Additional AR MANAGER Goals OP AR MANAGER Goals: Goal 1, Goal 2 Goal 1: Pt will participate in a MBSS/VFSS to determine cause/severity of dysphagia and upd ate POC. Goal 1 Status: Completed Goal 2: Pt will be provided education of swallow, diet recommendations, compensatory strate gies, and handouts of recommendations Goal 2 Status: Completed Treatment Plan/Interventions 97209 - Motion Fluroroscopy/Swallow Evaluation Electronically signed by: Rehana Easton, Speech Pathologist, 09/22/2019 16:58 Patient Name: Cherrie Quijano/: 1960/ Rehana Vaca, Minda ech Pathologist - 09/22/2019 4:21 PM PDT [facility] CTR XRAY [address] [place] [address] Speech Therapy VFSS/MBS Evaluation Date: 09/22/19 Patient Information Patient Name: Cherrie Quijano Date of : 1960 Age: 58 y.o. DYSPHAGIA DIAGNOSIS: Minimal dysphagia - video swallow shows slight deviance from a normal swallow. Patient may report a change in sensation during swallow. No change in diet is requi red. Swallow WFL DIET RECOMMENDATIONS: Foods: Level 4: General Diet - mechanical soft solids Moist foods Extra sauces/gravies as needed Drinks: Thin liquids with meals and Thin liquids between meals STRATEGIES: Posture: Sitting upright (90 degrees) Behavior: Small bites or sips, Alternate liquids and solids, Control rate and amount, Effortful swall ow and Double swallow SUBJECTIVE: History of Presenting Problem: Cherrie Quijano is a 58 y.o. female who pres ents for a VFSS/MBS evaluation due to experiencing the following symptoms: dry mouth, heartb urn, loses food from mouth, increased time or effort, nausea/and/or vomiting, Hoarse or wet voice, weight loss. Pain Assessment: Pain Scale Used: NUMERIC Pain Rating Pre Assessment: 6 Location: Lower back and lower extremeties ASSESSMENT: Cherrie was seen for a Modified Barium Swallow study (MBS) to determine cause and severity of dysphagia. Chart review reveals history of GERD, reflux esophagitis, reported s/sx of dysp hagia, hiatal hernia with GERD, esophageal dysmotility, depression with anxiety, conversion disorder. Cherrie was challenged with puree, ground solids 1/4 inch, chopped solids 1/2 inch, bread, th in liquid and nectar think liquid by tsp, cup, straw mixed with barium under fluoroscopy usi ng the right lateral and anterior-posterior view. She did demonstrate flash shallow larynge al penetration with liquids but no tracheal aspiration during the MBS with solids or liquids trialed today. Cherrie did not demonstrate deficit with oral coordination, did demonstrate deficits with ora l clearance which led to trace residuals on oral structures, and did demonstrate deficits wi th oral control which led to posterior loss of bolus prior to swallow initiation. She did demonstrate deficits with pharyngeal coordination which led to mistiming of swallow , did not demonstrate deficit with pharyngeal clearance, and did not demonstrate deficit wit h pharyngeal sensation. She did demonstrate deficits with airway protection which led to shallow flash penetration during swallow She did not demonstrate deficit with esophageal clearance. Strategies attempted were: Outcome: - Double swallow successful - Effortful swallow successful - Liquid wash successful - 3 second swallow hold successful - Slow pacing successful - Vary bolus size successful - Use of adaptive utensils not tested See below for details on the oral motor exam, and detailed observations noted per swallow p hase. AR MANAGER explained the results of the MBS using visuals, test slides, handouts and demonstration . AR MANAGER educated on diet recommendations, postural strategies, behavioral strategies and oral motor exercises. See above for AR MANAGER diet recommendation. Pt was provided with education of acid reflux/management, hydration, dry mouth management, and techniques for reducing anxiety /stress in regards to eating. Pt was provided with home exercises program for lingual streng thening. Handouts of all recommendation were provided to the patient. Psychological/psychoso cial components may be impacting swallow functions/stress levels. Thank you for this referra l. Recommendations: 1. Consistently utilize compensatory/behavioral strategies during meals 2. Maintain hydration 3. Reduced anxiety/stressful situations 4. Limit distractions during meals 5. Follow reflux precautions 6. Participate in home exercise program for several weeks 7. Continue with mechanical soft diet per GI recommendations Swallow Function: Behavior: alert Respiration: WNL; room air Lips: WNL ROM/strength Buccal: WNL ROM/strength Jaw: WNL ROM/strength Lingual: WNL ROM/strength Teeth: Intact Dentures: Upper and Partial Shop Hand: equal Speech: [place] speaking, WFL Volitional swallow: premature spillage to the pyriform sinus, penetration, residue in the v alleculae Volitional cough: effective Mucosa: Dry/sticky Voice: Normal Neck: WNL VSFF: MBS Overall Impression Scores 1. Lip Closure: 1 - Interlabial escape no progression to anterior lip 2. Tongue Control During Bolus Hold: 1 - Escape to lateral buccal cavity floor of mouth (F OM) 3. Bolus Preparation / Mastication 1 - Slow prolonged chewing/mashing with complete re-kole ection 4. Bolus Transport / Lingual Motion 0 - Brisk tongue motion 5. Oral Residue 1 - Trace Residue lining oral structures 6. Initiation of Pharyngeal Swallow 3 - Bolus head in pyriforms 7. Soft Palate Elevation 0 - No bolus between soft palate and pharyngeal wall 8. Laryngeal Elevation 0 - Complete superior movement of thyroid cartilage with complete ap proximation of arytenoids to epiglottic petiole 9. Anterior Hyoid Excursion 0 - Complete anterior movement 10. Epiglottic Movement 0 - Complete inversion 11. Laryngeal Vestibular Closure - Height of Swallow 0 - Complete, no air/contrast in laryn geal vestibule 12. Pharyngeal Stripping Wave 0 - Present, complete 13. Pharyngeal Contraction (A/P VIEW ONLY) 0 - Complete 14. Pharyngoseophageal Segment Opening 0 - Complete distension and complete duration, no ob struction of flow 15. Tongue Base Retraction 1 - Trace column of contrast or air between tongue base and phar yngeal wall 16. Pharyngeal Residue 0 - Complete pharyngeal clearance 17. Esophageal Clearance Upright Position 0 - Complete clearance, esophageal coating Comments: Flash shallow penetration with liquids. No residue remaining after swallow. No as piration noted across solids and liquids trialed. Lingual weakness and decreased posterior b olus propulsion. Strategies: Small, single bites/sips. Alternate liquids/solids. Slow pacing. Double swallow . Liquid wash. Functional Oral Intake Scale (FOIS): Cherrie scored 6/7 on the FOIS indicating she can tolerate total oral intake with no special preparation, but must avoid specific foods and liquid items. Total Oral Intake : Total oral intake with no special preparation, but must avoid specific foods or liquid items Interpretation: Number Definition 1 No oral intake [...] no restrictions For more information, please visit: https://www.ncbi.nlm.nih.gov/pubmed/77906712 REHABILITATION POTENTIAL: Patient demonstrates good potential to achieve established goals and to address the above documented impairments and to reach the following functional goals by participating in skilled speech language pathology therapy services. Goals: Additional AR MANAGER Goals OP AR MANAGER Goals: Goal 1, Goal 2 Goal 1: Pt will participate in a MBSS/VFSS to determine cause/severity of dysphagia and upd ate POC. Goal 1 Status: Completed Goal 2: Pt will be provided education of swallow, diet recommendations, compensatory strate gies, and handouts of recommendations Goal 2 Status: Completed Plan Date of Onset: 06/22/2019 Start of Care Date: 09/22/2019 Requested # of Visits: 1 visit Certification From: 09/22/2019 Certification To: 09/22/2019 Treatment Plan/Interventions 94390 - Motion Fluroroscopy/Swallow Evaluation Patient and/or family has indicated understanding of treatment needs and actively participa yossi in the creation of this plan for care. Start Time: 1355 Stop time: 1500 Duration: 65 minutes Timed Treatment Codes: 0 minutes History Encounter Diagnoses Code Name Primary? R13.12 Oropharyngeal dysphagia K21.9 Gastroesophageal reflux disease, esophagitis presence not specified Date of Onset: 06/22/2019 Referring Provider: Demetri Apple MD PCP: James Farmer MD Rehab Precautions Fluoroscopy Exam from 09/22/2019 in [facility] XRAY Rehab Precautions Precautions None Rehab Learning Style Fluoroscopy Exam from 09/22/2019 in [facility] Learning Style Patient's Optimum Learning Style listening, reading, observation, performance of task Electronically signed by: Rehana Easton Speech Pathologist, 09/22/2019 16:24 Patient Name: Cherrie Quijano/: 1960/ docume nted in this encounter Plan of Treatment Not on filedocumented as of this encounter Procedures + +--------+ + + + | Procedure Name | Priori | Date/Time | Associated Diagnosis | Comments | | | ty | | | | + +--------+ + + + | FL VIDEO SWALLOW W | JORGE | 09/22/2019 | Oropharyngeal | Results for this | | SPEECH | | 2:22 PM | dysphagia | procedure are in the | | | | PDT | Gastroesophageal | results section. | | | | | reflux disease, | | | | | | esophagitis presence | | | | | | not specified | | + +--------+ + + [...] Procedure Note | + + | Manohar, Jarek Results In - 09/22/2019 2:31 PM PDT [...] Diagnosis | + + | Oropharyngeal dysphagia Dysphagia, oropharyngeal phase | + + | Gastroesophageal reflux disease, esophagitis presence not specified | + + documented in this encounter Administered Medications + +--------+ +-------+------+------+ | Medication Order | MAR | Action | Dose | Rate | Site | | | Action | Date | | | | + +--------+ +-------+------+------+ | barium (E-Z-HD) 98% contrast | Given | 09/22/20 | 5 mLs | | | | suspension 5 mL 5 mL, Oral, ONCE | | 19 2:22 | | | | | PRN, Other, Starting 09/22/19 | | PM PDT | | | | | at 1421, For 1 dose, Girmake | | | | | | | well., | | | | | | + +--------+ +-------+------+------+ +---+---+ | | | +---+---+ + +-------+ + +---+---+ | barium (E-Z-PASTE) 60% | Given | 09/22/20 | 1 | | | | esophageal cream 1 Application 1 | | 19 2:22 | Applicat | | | | Application, Oral, ONCE PRN, | | PM PDT | ion | | | | Other, Starting Wed09/22/19 at | | | | | | | 1421, For 1 dose | | | | | | + +-------+ + +---+---+ +---+---+ | | | +---+---+ + +-------+ +--------+---+---+ | barium (LIQUID E-Z-PAQUE) 60% | Given | 09/22/20 | 25 mLs | | | | contrast suspension 25 mL 25 mL, | | 19 2:22 | | | | | Oral, ONCE PRN, Other, Starting | | PM PDT | | | | | Wed09/22/19 at 1421, For 1 dose, | | | | | | | Esvin haney., | | | | | | + +-------+ +--------+---+---+ +---+---+ | | | +---+---+ documented in this encounter"
--- OUTSIDE RECORDS SUMMARY | ~2020-05-16 | XMS | Encounter Summary ---
Demographics + + + | Address | [address] | | | [place] [address] | + + + | Home Phone | | + + + | Preferred Language | Unknown | + + + | Marital Status | Single | + + + | Alevism Affiliation | 1013 | + + + [...] Team Providers + +------+ + | Care Rope Maker Name | Role | Phone | + +------+ + | James Farmer MD | PCP | | + +------+ + Reason for Visit +--------+--------+ + | Reason | Onset | Comments | | | Date | | +--------+--------+ + | Other | 04/26/ | | | | 2019 | | +--------+--------+ + Encounter Details +--------+ + + + + | Date | Type | Department | Care Team | Description | +--------+ + + + + | 04/26/ | Telephone | [facility] | James Farmer, | Other | | 2019 | | MEDICINE [address] | | | | | [place], | [place] | | | | | [place] [address] | [id number] | | | | | [phone] | | | +--------+ + + + [...] this encounter Miscellaneous Notes Telephone Encounter - Tahmina Maria Guadalupe Genevieve - 04/26/2020 10:24 AM PDTSpoke with patient she i s a bit concerned she will not have enough time at her appointment to discuss everthything , PSR Advised her to write everything down so she does not forget. She stated she will and w ill be in later, thank you. A M PDTTelephone Encounter - Ashlie Blevins LPN - 04/26/2020 8:46 AM PDTDiscussed with prov ider and this patient has an appointment today and he will discuss this with her at that suzanne e. elephone Encounter - Kirk Jacob - 04/26/2020 8:31 AM PDTPatient is wanting to see about getting a nurse to call due to running out of things she is able to eat. Please advise. Electronical ly signed by Kirk Nolan at 04/26/2020 8:32 AM PDTdocumented in this encounter Plan of Treatment Not on filedocumented as of this encounter Visit Diagnoses Not on filedocumented in this encounter"
--- OUTSIDE RECORDS SUMMARY | ~2020-05-16 | XMS | Encounter Summary ---
Demographics + + + | Address | [address] | | | [place] [address] | + + + | Home Phone [...] Team Providers + +------+ + | Care Research Clerk Name | Role | Phone | + +------+ + | James Farmer MD | PCP | | + +------+ + Reason for Referral Diagnostic/Screening (Routine) +--------+--------+ + + + + | Status | Reason | Specialty | Diagnoses / | Referred By | Referred To | | | | | Procedures | Contact | Contact | +--------+--------+ + + + + | Closed | | Radiology | Diagnoses | [place], | [facility] | | | | | Chest pain, | James Dennis MD | Medicine | | | | | unspecified | [address] | [address] | | | | | type | [place] | [place], | | | | | Procedures | [place] | [place] | | | | | [place] [facility] | [address] | [address] | | | | | Stress Test | Phone: | Phone: | | | | | (Exercise) | [phone] | [phone] | | | | | | Fax: | Fax: | | | | | | [phone] | [phone] | +--------+--------+ + + + + Encounter Details +--------+ + + + + | Date | Type | Department | Care Team | Description | +--------+ + + + + | 09/02/ | Orders Only | [facility] [place] [facility] | James Farmer, | Chest pain, | | 2017 | | MEDICINE [address] | [address] | unspecified type | | | | [address] [place], | [place], [place] | (Primary Dx) | | | | [place] [address] | [address] | | | | | [phone] | | | +--------+ + + + [...] | + + +--------+ + + | [place] [facility] Stress | Cardiac | Routin | Chest pain, | Expected: | | Test (Exercise) | Nuclear | e | unspecified type | 09/02/2017, Expires: | | | Medicine | | | 09/03/2018 | + + +--------+ + + documented as of this encounter Visit Diagnoses + + | Diagnosis | + + | Chest pain, unspecified type - Primary | + + documented in this encounter"
--- OUTSIDE RECORDS SUMMARY | ~2020-05-16 | XMS | Encounter Summary ---
Demographics + + + | Address | [address] | | | [place] [address] | + + + | Home Phone | | + + + | Preferred Language | Unknown | + + + | Marital Status | Single | + + + | Hinduism Affiliation | 1013 | + + + | Race | Unknown | + + + | Ethnic Group | Unknown | + + + Author + + + | Author | [facility] | | | and [place] | + + + | Organization | [facility] | | [...] Team Providers + +------+ + | Care Automotive Parts Counter Associate Name | Role | Phone | + +------+ + | Loi Macdonald MD | PCP | | + +------+ + Reason for Visit + +--------+ + | Reason | Onset | Comments | | | Date | | + +--------+ + | Hospital Follow-up | 07/28/ | | | | 2016 | | + +--------+ + Encounter Details +--------+ + + + + | Date | Type | Department | Care Team | Description | +--------+ + + + + | 07/28/ | Telephone | [facility] | Catrachita Moore MD | Hospital Follow-up | | 2016 | | Internal Medicine | Need new address | | | | | Hospitalists [address] | | | | [address] [place] | | | | | | [address] | | | | | | [phone] | | | +--------+ + + + [...] this encounter Miscellaneous Notes Telephone Encounter - Loi Lancaster RN - 07/28/2017 2:02 PM PDTNo answer #2. Elec tronically signed by: Loi Lancaster RN 07/28/2017 14:02 documented in t his encounter Plan of Treatment Not on filedocumented as of this encounter Visit Diagnoses Not on filedocumented in this encounter"
--- OUTSIDE RECORDS SUMMARY | ~2020-05-16 | XMS | Encounter Summary ---
Demographics + + + | Address | [address] | | | [place] [address] | + + + | Home Phone [...] Team Providers + +------+ + | Care Tax Compliance Officer Name | Role | Phone | + +------+ + | James Farmer MD | PCP | | + +------+ + Reason for Visit + +--------+ + | Reason | Onset | Comments | | | Date | | + +--------+ + | Test Results | 11/17/ | | | | 2018 | | + +--------+ + Encounter Details +--------+ + + + + | Date | Type | Department | Care Team | Description | +--------+ + + + + | 11/17/ | Telephone | [facility] [place] [facility] | James Farmer, | Test Results | | 2018 | | MEDICINE [address] | [address] | | | | | [place], | [place] | | | | | [place] [address] | [address] | | | | | [phone] | | | +--------+ + + + [...] this encounter Miscellaneous Notes Telephone Encounter - Isamar Mcclure - 11/17/2019 9:24 AM PSTPatient called back and a ppointment was rescheduled to 11/20/19, at 4 pm. elephone Encounter - Ashlie Blevins LPN - 11/17/2019 8 :51 AM PSTPhoned patient and left voice mail regarding results and referral. Also advised we have a sooner appt to see her in office than Nov 27. If she returns call we may offer her Wednesday or Wednesday at 4pm or Nov 23 at 415. Will await return call to appt elephone Encounter - Ashlie Blevins LPN - 11/17/2019 8:00 AM PSTPatient has a follow up s cheduled for Nov 27 to discuss these results and proceed. It appears she was seen on 11/[address] Gómez but will likely need a more urgent referral placed to return to address the is sues found in this test. Please place referral then I will contact the patient elephone Encounter - Ashlie Blevins LPN - 11/17/2019 7:59 AM PST----- Message from James Farmer MD sent at 11/17/2019 7:46 AM PST ----- Her barium swallow showed that she has tertiary contractions of the esophagus which makes i t difficult for her to swallow if she has not seen the GI doctors we will refer her ----- Message ----- From: Jarek Villela Results In Sent: 11/16/2019 3:53 PM PST To: James Farmer MD documented in this e ncounter Plan of Treatment Not on filedocumented as of this encounter Visit Diagnoses Not on filedocumented in this encounter"
--- OUTSIDE RECORDS SUMMARY | ~2020-05-16 | XMS | Encounter Summary ---
Demographics + + + | Address | [address] | | | [place] [address] | + + + | Home Phone [...] Team Providers + +------+ + | Care Trackman Name | Role | Phone | + [...] + + | Closed | Specialty | Podiatry | Diagnoses | [place], | [place], | | | Services | | Foot pain, | James Dennis MD | Garo Sanchez DPM | | | Required | | bilateral | [address] | [address] | | | | | Procedures | [address] [place] | [place] | | | | | 01/05 | [place] | [place] | | | | | [place] | [address] | [address] Phone: | | | | | IPA | Phone: | [phone] | | | | | RESPONSE | [phone] | Fax: | | | | | | Fax: | [phone] | | | | | | [phone] | | +--------+ + + + + + Encounter Details +--------+ + + + + | Date | Type | Department | Care Team | Description | +--------+ + + + + | 02// | Orders Only | [facility] [place] [facility] | James Farmer, | Foot pain, bilateral | | 2018 | | MEDICINE [address] | [address] | (Primary Dx) | | | | [place], | [place] | | | | | [place] [address] | [address] | | | | | [phone] | | | +--------+ + + + [...] | + + +--------+ + + | Ambulatory referral | Outpatient | Routin | Foot pain, | Ordered: 12/27/2017 | | to Podiatry | Referral | e | bilateral | | + + +--------+ + + documented as of this encounter Visit Diagnoses + + | Diagnosis | + + | Foot pain, bilateral - Primary | + + documented in this encounter"
--- OUTSIDE RECORDS SUMMARY | ~2020-05-16 | XMS | Encounter Summary ---
Demographics + + + | Address | [address] | | | [place] [address] | + + + | Home Phone [...] Providers + +------+ + | Care Sales Expert Name | Role | Phone | + [...] + | 05/01/ | Telephone | [facility] | James Farmer, | Referral | 2019 | | MEDICINE [address] | [address] | | | | | [place], | [place] | | | | | [place] [address] | [address] | | | | | [phone] | | | +--------+ + + + [...] Notes Telephone Encounter - Latanya Nolan - 05/01/2020 8:44 AM Sai from [facility] called to request a referral with shailesh carrillo. Patient has an appointment with Dr. Savannah Morales on 05/03/20 for DX K22.4. Please adv christopher, Thank you! Rustam sy in this encounter Plan of Treatment Not on filedocumented as of this encounter Visit Diagnoses Not on filedocumented in this encounter"
--- OUTSIDE RECORDS SUMMARY | ~2020-05-16 | XMS | Encounter Summary ---
Demographics + + + | Address | [address] | | | [place] [address] | + + + | Home Phone [...] Team Providers + +------+ + | Care Hospital Supervisor Name | Role | Phone | [...] | | | dysphagia | | [place] [address] | | | | | Hiatal | | Phone: | | | | | hernia with | | [phone] | | | | | GERD Reflux | | Fax: | | | | | esophagitis | | [phone] | | | | | Obesity | [...] | | | | | | | RI | | | | | | | ESOPHAGOGAST | | | | | | | RODUODENOSCO | | | | | | | PY TRANSORAL | | | | | | | DIAGNOSTIC | | | | | | | RI EGD | | | | | | | TRANSORAL | | | | | | | BIOPSY | | | | | | | SINGLE/MULTI | | | | | | | PLE RI | | | | | | | [...] + + + + | 04/05/ | Hospital | [facility] | Loi Hui MD | Pharyngoesophageal | | 2019 | Encounter | [facility] | [address] | dysphagia; Obesity | | | | [address] | [place], [place] | (BMI 30-39.9); | | | | [place], [place] | [address] | Reflux esophagitis; | | | | [address] | [phone] | Dysphagia, | | | | [phone] | | unspecified type | +--------+ + [...] + + + | Blood Pressure | 113/75 | 04/05/2019 3:30 PM | | | | | PDT | | + + + + + | Pulse | 62 | 04/05/2019 3:30 PM | | | | | PDT | | + + + + + | Temperature | 36.5 C (97.7 F) | 04/05/2019 3:08 PM | | | | | PDT | | + + + + + | Respiratory Rate | 16 | 04/05/2019 3:30 PM | | | | | PDT | | + + + + + | Oxygen Saturation | 98% | 04/05/2019 3:30 PM | | | | | PDT [...] + + + +---------+ + + | [address] | Take 1 capsule by | [...] + +---------+ + + | [facility] | Take 1 capsule by | [...] Loi Hui MD at 04/05/2019 2:53 PM Loi Álvarez MD - 04/05/2019 2:53 PM PDT PRE-ENDOSCOPY [...] Procedure: EGD; Surgeon: Loi Hui MD; Location: [facility] [...] Electronically Signed by: Loi Hui MD 04/05/2019 [facility] Portions of this chart may have been created with [employer] voice recognition software. Occasi onal wrong-word [...] Endoscopy Patient: Cherrie Quijano : 1960 Acct: [id number] Exam Date: Friday, April 05, 2019 Doctor: [...] If unable to reach your physician, call [facility] Emergency Department at [address] Your doctor [...] Seizure | | | | | | ([facility]) Depression | | | | | | [...] 04/05/2019 | [facility] | | 2:41 PMMRN: [id number] #: [id number] of : | | | 1Admit Type: AmbulatoryAge: 58Room: [facility] 02Gender: | | | FemaleNote Status: FinalizedAttending MD: Loi Hui , | | | MDProcedure: Upper GI endoscopyIndications: | | | Abdominal pain, Dysphagia, Heartburn, Suspected esophageal | | | refluxProviders: Loi Hui MD, | | | Pushpa Kim RN, Phyllis Farley, | | | Dedicated Local Truck Driver, Butch Amaya MD (Anesthesia Staff)Referring MD: | [...] the anesthesiologist and the | | | equine pharmacology technician in the pre-procedure area in the [...] with the patient.Loi Hui | | | 04/05/2019 3:05:17 PMThis report has been signed | | | electronically.Number of Addenda: 0Note Initiated On: 04/05/2019 2:41 | | | PMScope In: 2:56:13 PMScope Out: 3:01:14 PM [facility] | | | [facility], [address] [place] [address] | | | [phone] | | | instructions were provided to [...] |Scope Out: 3:01:14 PM | | | [facility], [address] [place] [address] | | | [address] | | + + -+ + +---------+ + + | Performing | Address | City/State/Zipcode | Phone Number | | Organization | | | | + +---------+ + + | [facility] | | | | + +---------+ + + documented in this encounter Visit Diagnoses + + | Diagnosis | + + | Dysphagia, unspecified type | + + | Obesity (BMI 30-39.9) Obesity, unspecified | + + | Reflux esophagitis | + + | Hiatal hernia with GERD | + + | Seizure (HCC) Other [...] glucose < 50, | | | Starting 04/05/19 at 1358, | | | Repeat in [...]
--- OUTSIDE RECORDS SUMMARY | ~2020-05-16 | XMS | Encounter Summary ---
Demographics + + + | Address | [address] | | | [place] [address] | + + + | Home Phone [...] Team Providers + +------+ + | Care Alum Plant Operator Name | Role | Phone | [...] + + | 11/29/ | Telephone | [facility] | Loi Hui MD | EGD | | 2017 | | GASTROENTEROLOGY | [address] | | | | | [address] | [place], [place] | | | | | [address] [place], [place] | [address] | | | | | [address] | [phone] | | | | | [phone] | | | +--------+ + + + [...] Encounter - Zarina Ramon RN - 11/29/2017 10:09 AM PSTSpoke with patient and s he developed sinus infection on Wednesday and started antibiotics on Wednesday and denies fever, she will proceed tomorrow as planned for EGD with Dr. Hui; reviewed instructions and she verbalized understanding. elephone Encounter - Lulu Lockwood - 11/29/2017 8:39 AM PSTPatient called and stat es she was given antibiotics this weekend for a sinus infection and is unsure whether she ca n still proceed with her EGD tomorrow with Dr. Hui. Please call her back at [phone]. Thank you. documented in this encounter Plan of Treatment Not on filedocumented as of this encounter Visit Diagnoses Not on filedocumented in this encounter"
--- OUTSIDE RECORDS SUMMARY | ~2020-05-16 | XMS | Encounter Summary ---
Demographics + + + | Address | [address] | | | [place] [address] | + + + | Home Phone [...] Team Providers + +------+ + | Care Collar Separator Name | Role | Phone | + +------+ + | No, Physician | PCP | Unavailable | + +------+ + Reason for Visit + +--------+ + | Reason | Onset | Comments | | | Date | | + +--------+ + | Imaging Only | 04/26/ | | | | 2016 | | + +--------+ + Encounter Details +--------+ + + + + | Date | Type | Department | Care Team | Description | +--------+ + + + + | 04/26/ | Telephone | [facility] | Rodriguez Pena, | Imaging Only | | 2016 | | CARE [address] | [address] | | | | | [place] | [place] | | | | | [address] | [address] | | | | | [phone] | | | +--------+ + + + [...] Encounter - Bridgett Galdamez Cert MA - 04/26/2017 1:17 PM PDTPt called to check on imaging and I notified her that I had submitted the study to insurance and just got back fr om lunch and it is approved. Transferred pt over to imaging to schedule. documented in this encounter Plan of Treatment Not on filedocumented as of this encounter Visit Diagnoses Not on filedocumented in this encounter"
--- OUTSIDE RECORDS SUMMARY | ~2020-05-16 | XMS | Encounter Summary ---
Demographics + + + | Address | [address] | | | [place] [address] | + + + | Home Phone [...] Team Providers + +------+ + | Care Steel Cutter Name | Role | Phone | + +------+ + | No, Physician | PCP | Unavailable | + +------+ + Reason for Referral Evaluate & Treat (Urgent) +--------+ + + + + + | Status | Reason | Specialty | Diagnoses / | Referred By | Referred To | | | | | Procedures | Contact | Contact | +--------+ + + + + + | Closed | Specialty | Otolaryngolog | Diagnoses | | Luis Escobar | | | Services | y | | [place] | MD Jeancarlos [address] | | | Required | | Oropharyngea | , Meng Smith MD | [address] | | | | | l dysphagia | [address] | [place] [address] | | | | | | [address] [place] | [place], | | | | | | [place], [place] | [place] [address] | | | | | | [address] | Phone: | | | | | | Phone: | [phone] | | | | | | [phone] | Fax: | | | | | | Fax: | [phone] | | | | | | [phone] | | +--------+ + + + + + Reason for Visit + + + | Reason | Comments | + + + | Swallowing | Room 2 Has some type of throat tightening that is getting | | Difficulty | worse. Seen by Dr. Smiley on 04/29 for the same. Has a May | | | appt with Tyrone Hui. Can't get solids down. | + + + Encounter Details +--------+---------+ + + + | Date | Type | Department | Care Team | Description | +--------+---------+ + + + | 05/08/ | Office | [facility] [place] [facility] | Meng Talley | Oropharyngeal | | 2017 | Visit | CARE [address] | [address] | dysphagia (Primary | | | | [place] | [address] [place] | Dx); Anxiety; | | | | [address] | [address] | Esophageal | | | | [phone] | | dysmotility; Hiatal | | | | | | hernia with GERD | +--------+---------+ + + + Social History [...] + + + | Blood Pressure | 104/59 | 05/08/2017 9:14 AM | | | | | PDT | | + + + + + | Pulse | 89 | 05/08/2017 9:14 AM | | | | | PDT | | + + + + + | Temperature | 36.3 C (97.3 F) | 05/08/2017 9:14 AM | | | | | PDT | | + + + + + | Respiratory Rate | 16 | 05/08/2017 9:14 AM | | | | | PDT | | + + + + + | Oxygen Saturation | 95% | 05/08/2017 9:14 AM | | | | | PDT | | + + + + + | Inhaled Oxygen | - | - | | | Concentration | | | | + + + + + | Weight | 85.7 kg (189 lb) | 05/08/2017 9:14 AM | | | | | PDT | | + + + + + | Height | 162.6 cm (5' 4") | 05/08/2017 9:14 AM | | | | | PDT | | + + + + + | Body Mass Index | 32.44 | 05/08/2017 9:14 AM | | | | | PDT | | + + + + + documented in this encounter Patient Instructions Patient Instructions Meng Talley MD - 05/08/2017 9:15 AM PDTContinue omeprazole before morning meal as before. Add Reglan 5 mg taken 30 minutes before morning and evening meals for esophagus muscle func tion. Continue liquid and mechanical soft dietary choices. Take vitamins and gqkh-wsj-dcvbfpb medications either crushed or purchase liquid vitamins. Referral was made to Dr. Larsen in ENT for further evaluation of her throat. Establish care with a new primary care provider. Dr. Valentino at the [facility] and Dr. Farmer at [facility] are accepting patients. Return in the interim with any new or progressive associated symptoms such as shortness of breath, coughing or choking when swallowing liquids. documented in this encounter Progress Notes Meng Talley MD - 05/08/2017 9:15 AM PDTFormatting of this note might be differen t from the original. 05/08/2017 Cherrie Quijano 1960 Assessment: 1. Oropharyngeal dysphagia * [facility] Otolaryngology - AMB Referral 2. Anxiety 3. Esophageal dysmotility metoclopramide (REGLAN) 5 MG tablet 4. Hiatal hernia with GERD Persistent fear of swallowing solids in oropharyngeal phase associated with probable anxiou s depression and globus sensation. Documented hiatal hernia, GERD and esophageal dysmotilit y by recent barium swallow. We will add a low dose of Reglan, continue omeprazole, refer to her to ENT for consideration of laryngoscopy and establish care with a PCP for management o f her mental health issues. Plan: Continue omeprazole before morning meal as before. Add Reglan 5 mg taken 30 minutes before morning and evening meals for esophagus muscle func tion. Continue liquid and mechanical soft dietary choices. Take vitamins and aufj-des-jpegkwt medications either crushed or purchase liquid vitamins. Referral was made to Dr. Larsen in ENT for further evaluation of her throat. Establish care with a new primary care provider. Dr. Valentino at the [facility] and Dr. Farmer at [facility] are accepting patients. Return in the interim with any new or progressive associated symptoms such as shortness of breath, coughing or choking when swallowing liquids. The risks and benefits, including potential side effects of medication changes, have been d iscussed with the patient. We agreed on implementing the current plan. The note may have been dictated using [employer] voice recognition software. It may have not b een proofread in entirety. Minor errors in grammar may occur. History: Chief Complaint Patient presents with Swallowing Difficulty Room 2 Has some type of throat tightening that is getting worse. Seen by Dr. Saturnino kramer on 04/29 for the same. Has a May appt with Tyrone Hui. Can't get solids down. Cherrie Quijano is a 56 y.o. female here for reevaluation of difficulty swallowing daia ds. She has not tried eating solids or taking her large vitamin pills for fear that they ma y not go down. "My throat tells me not to try it." She feels anxious about eating and beco mes tearful. She feels like there are things in her throat that rubbed together the knee. The back of her tongue. Denies difficulty drinking liquids, milkshakes, popsicles and is us ing Ensure and boost for meals. She has taken her omeprazole twice daily as directed and is down to once daily before breakfast without difficulty. She denies epigastric discomfort, reflux and heartburn. Feels like solid food will get stuck pointing to her suprasternal not ch. She denies sore throat, fever, chills, choking, coughing, shortness of breath, noisy br eathing, nausea and vomiting. She does have a history of depression, denying anxiety. She has insomnia and becomes tearful. No thoughts of self-harm. Feel she gets worked up about trying to swallow. She has been on Zoloft in the past, currently on no psych medications an d has no PCP. I reviewed my visit with her from April 29 which followed an abnormal barium swallow. This r evealed sliding hiatal hernia, GERD, distal esophagitis and esophageal dysmotility. Current medications, past medical, surgical, family and social histories were reviewed and updated where appropriate. No Known Allergies Physical Exam: BP 104/59 | Pulse 89 | Temp 36.3 C (97.3 F) (Temporal) | Resp 16 | Ht 1.626 m (5' 4 ") | Wt 85.7 kg (189 lb) | SpO2 95% | BMI 32.44 kg/m General: Well appearing obese, middle-aged female in no distress and appears stated age. S he briefly becomes tearful when discussing her symptoms. She is drinking a bottle of water during the visit without difficulty. HEENT: Atraumatic. No sinus or mastoid tenderness. EACs and TMs unremarkable. Clear conj unctiva. Nares clear. Moist oral membranes. Pharynx without inflammation, edema or exudat es. Tongue is unremarkable. Moist oral membranes. Neck: Supple without adenopathy, masses or thyroid abnormality. Chest: No supraclavicular masses or adenopathy. Lungs are clear to auscultation. Cardiac: Regular rhythm without murmur. Abdomen: Flat, mildly obese with normally active bowel sounds, soft and nontender. No orga nomegaly. Psychiatric: Mildly anxious affect with occasional tearing. She perseverates on her OTC aquino pplements and how to take them. Barium swallow, April 27, 2017: IMPRESSION - 1. Small sliding-type hiatal hernia with spontaneous gastroesophageal reflux. 2. Poor esophageal contractility with no fixed stricture. 3. Prominence to the esophageal mucosa distally. In this setting, further assessment of this finding with endoscopy would be recommended. Meng Talley M.D. documented in th is encounter Plan of Treatment + + +--------+ + + | Name | Type | Priori | Associated Diagnoses | Order Schedule | | | | ty | | | + + +--------+ + + | * [facility] [place] | Outpatient | [facility] | Oropharyngeal | Ordered: 05/08/2017 | | Otolaryngology - AMB | Referral | | dysphagia | | | Referral | | | | | + + +--------+ + + documented as of this encounter Visit Diagnoses + + | Diagnosis | + + | Oropharyngeal dysphagia - Primary Dysphagia, oropharyngeal phase | + + | Anxiety Anxiety state, unspecified | + + | Esophageal dysmotility Dyskinesia of esophagus | + + | Hiatal hernia with GERD | + + documented in this encounter
--- OUTSIDE RECORDS SUMMARY | ~2020-05-16 | XMS | Encounter Summary ---
Demographics + + + | Address | [address] | | | [place] [address] | + + + | Home Phone | | + + + | Preferred Language | Unknown | + + + | Marital Status | Single | + + + | Anabaptism Affiliation | 1013 | + + + | Race | Unknown | + + + | Ethnic Group | Unknown | + + + Author + + + | Author | [facility] | | | and [place] | + + + | Organization | [facility] | | [...] Team Providers + +------+ + | Care Cnc Operator Programmer Name | Role | Phone | + +------+ + | James Farmer MD | PCP | | + +------+ + Encounter Details +--------+ + + + + | Date | Type | Department | Care Team | Description | +--------+ + + + + | 08/27/ | Hospital | [facility] | James Farmer, | Seizure (HCC) | | 2017 | Encounter | MED CTR NUCLEAR | [address] [place] [address] | | | | | MEDICINE [address] | [place] | | | | | [place], | [address] | | | | | [place] [address] | | | | | | [phone] | Scouring Pads SupervisorOxana | | +--------+ + + + + [...] of this encounter Plan of Treatment + +------+--------+ + + | Name | Type | Priori | Associated Diagnoses | Order Schedule | | | | ty | | | + +------+--------+ + + | Stress ECG | ECG | Routin | Seizure (HCC) | 1 Occurrences | | | | e | | starting 08/27/2017 | | | | | | until 08/27/2017 | + +------+--------+ + + documented as of this encounter Visit Diagnoses + + | Diagnosis | + + | Seizure (HCC) Other convulsions | + + documented in this encounter"
--- OUTSIDE RECORDS SUMMARY | ~2020-05-16 | XMS | Encounter Summary ---
Demographics + + + | Address | [address] | | | [place] [address] | + + + | Home Phone | | + + + | Preferred Language | Unknown | + + + | Marital Status | Single | + + + | Adventist Affiliation | 1013 | + + + | Race | Unknown | + + + | Ethnic Group | Unknown | + + + Author + + + | Author | [facility] | | | and [place] | + + + | Organization | [facility] | | [...] Team Providers + +------+ + | Care Lockstitch Shoulder Joiner Name | Role | Phone | + [...] unspecified | [address] | [address] | | | | | type | [address] [place] | [place], | | | | | Procedures | [place] | [place] | | | | | [place] Nuclear | [address] | [address] | | | | | Stress Test | Phone: | Phone: | | | | | (Vasodilator | [phone] | [phone] | | | | | ) | Fax: | Fax: | | | | | | [phone] | [phone] | +--------+--------+ + + + + Reason for Visit Auth/Cert +--------+--------+ + [...] | +--------+ + + + + | 09/29/ | Hospital | [facility] | James Farmer, | Chest pain, | | 2017 | Encounter | MED CTR NUCLEAR | [address] | unspecified type | | | | MEDICINE [address] | [place], [place] | | | | | [address], | [address] | | | | | [place] [address] | | | | | | [phone] | Foreign Student Adviser TeacherOxana | | +--------+ + + + + [...] + + documented in this encounter Results [place] Nuclear Stress Test (Vasodilator) (09/30/2017 7:56 AM PST) + + | Specimen | + + | | + + + + + | Impressions | Performed At | + + + | 1. Regadenoson EKG is normal. 2. Normal Regadenoson | [facility] | | Sestamibi myocardial perfusion study with a normal left ventricular | | | size and wall thickness. Evidence of anterior wall/breast soft | | | tissue attenuation. Preserved left ventricular systolic function. | | | LVEF by gated SPECT 73 %. Signed by: Fani Uriarte, | | | [facility] 09/30/2017, 7:57 | | + + + + + --+ | Narrative | Performed At | + + --+ | | [facility] | | NUCLEAR MEDICINE STRESS TEST REPORT Patient Name: Cherrie Urias | | | Samm Study Date: 09/29/2017 Primary Care Provider: James Oh | | | MD Darian : 1960 Age: 56 y.o. | | | Gender: female CLINICAL HISTORY/DIAGNOSIS: Chest pain | | | REGADENOSON SESTAMIBI STRESS TESTIndication: chest pain Procedure: In | | | the supine position, 0.4 mg of Regadenoson was infused intravenously | | | over 10 seconds. Blood pressure and EKG were monitored every 1 | | | minute. 5 mL of normal saline was utilized to flush the IV line. | | | Twenty seconds later, 33.5 mCi sestamibi intravenous injection. | | | SPECT myocardial perfusion imaging was acquired with wall motion | | | analysis. Rest imaging was performed using 29.4 mCi Sestamibi | | | intravenous injection. Repeated SPECT myocardial perfusion imaging | | | was acquired with wall motion analysis. Hemodynamics: Heart rate | | | baseline 73 beats per minute, peak 107 beats per minute. Blood | | | pressure baseline 105/81 mmHg, peak 108/69 mmHg. EKG baseline | | | underlying sinus rhythm. Normal EKG. Peak unchanged. Side Effects: | | | None. Arrhythmia: None. Regadenoson Sestamibi Myocardial | | | Perfusion Imaging Result: The Regadenoson Sestamibi tomographic | | | images, reviewed without the attenuation compensation resolution, | | | revealed a normal myocardial perfusion pattern as seen in short axis, | | | vertical long axis, and horizontal long axis projections. The left | | | ventricular cavity is normal. The rest imaging is also normal. | | | Gated SPECT reveals a normal left ventricular wall thickness and | | | motion. Preserved left ventricular systolic function. LVEF by gated | | | SPECT is 73 %. | | |Hemodynamics: | | |Heart rate baseline 73 beats per minute, peak 107 beats per minute. Blood | | |pressure baseline 105/81 mmHg, peak 108/69 mmHg. EKG baseline underlying | | |sinus rhythm. Normal EKG. Peak unchanged. | | | | | |Side Effects: None. | | | | | |Arrhythmia: None. | | | | | |Regadenoson Sestamibi Myocardial Perfusion Imaging Result: | | | The Regadenoson Sestamibi tomographic images, reviewed without the | | |attenuation compensation resolution, revealed a normal myocardial | | |perfusion pattern as seen in short axis, vertical long axis, and | | |horizontal long axis projections. The left ventricular cavity is normal. | | |The rest imaging is also normal. | | | | | | Gated SPECT reveals a normal left ventricular wall thickness and motion. | | |Preserved left ventricular systolic function. LVEF by gated SPECT is 73 %. | | | | | | | | + + --+ + +---------+ + + | Performing | Address | City/State/Zipcode | Phone Number | | Organization | | | | + +---------+ + + | [facility] | | | | + +---------+ + + documented in this encounter Visit Diagnoses + + | Diagnosis | + + | Chest pain, unspecified type | + + documented in this encounter Administered Medications + +--------+ +--------+------+------+ | Medication Order | MAR | Action | Dose | Rate | Site | | | Action | Date | | | | + +--------+ +--------+------+------+ | regadenoson (LEXISCAN) | Given | 09/29/20 | 0.4 mg | | | | injection 0.4 mg 0.4 mg, | | 17 8:47 | | | | | Intravenous, ONCE PRN, per | | AM PST | | | | | doctor, Starting 09/29/17 at | | | | | | | 0737, For 1 dose, Give IV push | | | | | | | over 10 seconds, then follow | | | | | | | immediately with 5 mL saline | | | | | | | flush., Nuclear Medicine | | | | | | + +--------+ +--------+------+------+ +---+---+ | | | +---+---+ + +-------+ + +---+---+ | technetium TC-99M sestamibi | Given | 09/29/20 | 30 | | | | (CARDIOLITE) injection 30 | | 17 7:38 | millicur | | | | millicurie 30 millicurie, | | AM PST | ies | | | | Intravenous, ONCE PRN, Other, | | | | | | | Starting 09/29/17 at 0738, For | | | | | | | 1 dose, Nuclear Medicine | | | | | | + +-------+ + +---+---+ +---+---+ | | | +---+---+ documented in this encounter"
--- OUTSIDE RECORDS SUMMARY | ~2020-05-16 | XMS | Encounter Summary ---
Demographics + + + | Address | [address] | | | [place] [address] | + + + | Home Phone | | + + + | Preferred Language | Unknown | + + + | Marital Status | Single | + + + | Buddhist Affiliation | 1013 | + + + [...] Team Providers + +------+ + | Care Urban And Regional Planner Name | Role | Phone | + +------+ + | James Farmer MD | PCP | | + +------+ + Reason for Visit + +--------+ + | Reason | Onset | Comments | | | Date | | + +--------+ + | Medication Question | 08/28/ | | | | 2018 | | + +--------+ + Encounter Details +--------+ + + + + | Date | Type | Department | Care Team | Description | +--------+ + + + + | 08/28/ | Telephone | [facility] | James Farmer, | Medication Question | | 2018 | | [address] | MD Juanita FUNK | | | | | [place], | [place] | | | | | [place] [address] | [address] | | | | | [phone] | | | +--------+ + + + [...] Telephone Encounter - Ashlie Blevins LPN - 08/28/2019 12:52 PM PDTLeft voice mail message that it is ok to use the omeprazole and that her orders for PT have been sent elephone Encounter - Ashlie Blevins LPN - 08/28/2019 9:49 AM PDTReturned call to patient and advised per provider to stop t he sucralafate for now. She is asking if she should start back on omeprazole? Also she is as esperanza for new orders fot PT. elephone Encounter - Maci Grider - 08/28/2019 8:27 AM PDTPatient would like to s peak to the nurse. Patient was given new medication sucralfate 1 g and Pantoprazole on 08/08/19 and it sick an d very time she eat she starts to vomiting. Patient would like to know if the new medication is causing these? Please advise. 8:3 8 AM PDTdocumented in this encounter Plan of Treatment Not on filedocumented as of this encounter Visit Diagnoses Not on filedocumented in this encounter"
--- OUTSIDE RECORDS SUMMARY | ~2020-05-16 | XMS | Encounter Summary ---
Demographics + + + | Address | [address] | | | [place] [address] | + + + | Home Phone | | + + + | Preferred Language | Unknown | + + + | Marital Status | Single | + + + | Sabianist Affiliation | 1013 | + + + | Race | Unknown | + + + | Ethnic Group | Unknown | + + + Author + + + | Author | [facility] | | | and [place] | + + + | Organization | [facility] | | | [...] Team Providers + +------+ + | Care Entry Level Paralegal Name | Role | Phone | + +------+ + | James Farmer MD | PCP | | + +------+ + Reason for Visit + +--------+ + | Reason | Onset | Comments | | | Date | | + +--------+ + | Medication Refill | 04/14/ | | | | 2018 | | + +--------+ + Encounter Details +--------+--------+ + + + | Date | Type | Department | Care Team | Description | +--------+--------+ + + + | 04/14/ | Refill | [facility] | James Farmer, | Medication Refill | | 2018 | | MEDICINE [address] | [address] | | | | | [place], | [place] | | | | | [place] [address] | [id number] | | | | | [phone] | | | +--------+--------+ + + + [...] this encounter Miscellaneous Notes Telephone Encounter - Ellie Hightower RN - 04/14/2019 1:30 PM PDTThis was prescribed by an [facility] physician. Is this Ok to refill? documented in this encounter Plan of Treatment Not on filedocumented as of this encounter Visit Diagnoses Not on filedocumented in this encounter"
--- OUTSIDE RECORDS SUMMARY | ~2020-05-16 | XMS | Encounter Summary ---
Demographics + + + | Address | [address] | | | [place] [address] | + + + | Home Phone [...] Team Providers + +------+ + | Care Electrolytic De Scaler Name | Role | Phone | + [...] unspecified | [address] | [address] | | | | | type | [address] [place] | [place], | | | | | Procedures | [place] | [place] | | | | | [place] Nuclear | [address] | [address] | | | | | Stress Test | Phone: | Phone: | | | | | (Vasodilator | [phone] | [phone] | | | | | ) | Fax: | Fax: | | | | | | [phone] | [phone] | +--------+--------+ + + + + Reason for Visit + +--------+ + | Reason | Onset | Comments | | | Date | | + +--------+ + | Imaging Only | 09/20/ | new order | | | 2016 | | + +--------+ + Encounter Details +--------+ + + + + | Date | Type | Department | Care Team | Description | +--------+ + + + + | 09/20/ | Telephone | [facility] | James Farmer, | Imaging Only (new | | 2016 | | MEDICINE [address] | [address] | order) | | | | [place], | [place] | | | | | [place] [address] | [address] | | | | | [phone] | | | +--------+ + + + [...] Telephone Encounter - Ashlie Blevins LPN - 09/20/2017 1:58 PM PDTTrish called states she is trying to get this patient scheduled for her [place] stress test but the patient states she i s not able to do the one that is ordered as she has a limp. Verónica says she needs a new order for the persantine test without the treadmill to be ordered instead. She asked if you would order this but not cancel the other order as she will take care of that once the new order is in. documented in t his encounter Plan of Treatment Not on filedocumented as of this encounter Results [place] Nuclear Stress Test [...] Signed by: Fani Uriarte, | | | [facility] 09/30/2017, 7:57 | | + + + + + --+ | Narrative | Performed At | + + --+ | | [facility] | | NUCLEAR MEDICINE STRESS TEST [...]
--- OUTSIDE RECORDS SUMMARY | ~2020-05-16 | XMS | Encounter Summary ---
Demographics + + + | Address | [address] | | | [place] [address] | + + + | Home Phone | | + + + | Preferred Language | Unknown | + + + | Marital Status | Single | + + + | Buddhist Affiliation | 1013 | + + + | Race | Unknown | + + + | Ethnic Group | Unknown | + + + Author + + + | Author | [facility] | | | and [place] | + + + | Organization | [facility] | | [...] Team Providers + +------+ + | Care Vocational Rehab Consultant Name | Role | Phone | + +------+ + | James Farmer MD | PCP | | + +------+ + Reason for Visit +---------+--------+ + | Reason | Onset | Comments | | | Date | | +---------+--------+ + | Results | 12/01/ | | | | 2017 | | +---------+--------+ + Encounter Details +--------+ + + + + | Date | Type | Department | Care Team | Description | +--------+ + + + + | 12/01/ | Telephone | [facility] | James Lama, | Results | | 2018 | | CARE [address] | MD [address] | | | | | [place] | [place] | | | | | [address] | [address] | | | | | [phone] | | | +--------+ + + + [...] this encounter Miscellaneous Notes Telephone Encounter - Argelia Chavez, Papier Mache' Molder - 12/03/2017 1:30 PM PSTPatient called requesting culture results. She stated she is still taking her antibiotics and will be finished on Wednesday. doxycycline (MONODOX) 100 mg capsule [[id number]] Order Details Dose: 100 mg Route: Oral Frequency: 2 TIMES DAILY Dispense Quantity: 20 capsule Refills: 0 Fills remaining: -- She stated she is feeling somewhat better, but still is getting headaches, which she believ es are from the antibiotic. She is also still doing the nasal saline rinses. elephone Encounter - Bridgett [place] Cert [place] - 12/01/2017 10:06 AM PST Pt called for result and was notified Culture, Wound, Smear Order: [id number] Status: Preliminary result Visible to patient: No (Not Released) Next appt: 01/03/20 18 at 09:45 in Internal Medicine (James Farmer MD) Dx: Acute maxillary sinusitis, rec urrence... Culture 1+ Staphylococcus aureus Presumptive identification Identification and susceptibility to follow. 1+ Usual Respiratory Elizabeth Stain No white blood cells (PMNs) seen No organisms seen Pt will call back tomorrow and see if result's are in. documented in this encounter Plan of Treatment Not on filedocumented as of this encounter Visit Diagnoses Not on filedocumented in this encounter"
--- OUTSIDE RECORDS SUMMARY | ~2020-05-16 | XMS | Encounter Summary ---
Demographics + + + | Address | [address] | | | [place] [address] | + + + | Home Phone [...] + + | Author | [facility] | | | and [place] | + + + | Organization | [facility] | | | [...] Team Providers + +------+ + | Care Spring Coiler Hand Name | Role | Phone | + +------+ + | Rianna Farmer MD | PCP | | + +------+ + Reason for Visit + + + | Reason | Comments | + + + | Allergic Reaction | | + + + | Anxiety | | + + + Encounter Details +--------+ + + + + | Date | Type | Department | Care Team | Description | +--------+ + + + + | 04/11/ | Emergency | [facility] | Jose De Jesus Cerna, | Anxiety (Primary Dx) | | 2020 | | [facility] | [address] | | | | | [place] [address] | [place] | | | | | [place] | [id number] | | | | | [address] | | | | | | [phone] | | | +--------+ + + + [...] + + + | Blood Pressure | 129/78 | 04/11/2020 8:51 PM | | | | | PDT | | + + + + + | Pulse | 80 | 04/11/2020 8:51 PM | | | | | PDT | | + + + + + | Temperature | 36.8 C (98.3 F) | 04/11/2020 8:51 PM | | | | | PDT | | + + + + + | Respiratory Rate | 18 | 04/11/2020 8:51 PM | | | | | PDT | | + + + + + | Oxygen Saturation | 97% | 04/11/2020 8:51 PM | | | | | PDT | | + + + + + | Inhaled Oxygen | - | - | | | Concentration | | | | + + + + + | Weight | 71.2 kg (157 lb) | 04/11/2020 7:18 PM | | | | | PDT | | + + + + + | Height | 162.6 cm (5' 4") | 04/11/2020 7:18 PM | | | | | PDT | | + + + + + | Body Mass Index | 26.95 | 04/11/2020 7:18 PM | | | | | PDT | | + + + + + documented in this encounter Discharge Instructions AttachmentsThe following attachments cannot be sent through Care Everywhere.Anxiety, Your B priscila's Response to (Danish)documented in this encounter Medications at Time of [...] mouth | 240 mL | 2 | 03/21/ | | | diphenhydrAMINE-visc | every 6 hours as | | | 20 | | | | needed for Other | | | | | | ekeikapoy-rojzdurs-o | (swish and swallow). | | | [...] TABLET BY | 120 | 5 | 04/08/20 | | | (CARDIZEM) 60 mg | MOUTH FOUR TIMES | tablet | | 20 | 0 | | tablet | DAILY | | | | | + + + +---------+ + + documented as of this encounter ED Notes Jose De Jesus Cerna MD - 04/11/2020 8:35 PM PDTFormatting of this note might be different fro m the original. [facility] Ivis Quijano EMERGENCY DEPARTMENT ENCOUNTER NOTE [address] [place] [id number] PCP:Rainna Farmer MD ROOM: [facility] EMERGENCY DEPARTMENT ENCOUNTER CHIEF COMPLAINT: Chief Complaint Patient presents with Allergic Reaction Anxiety Hallucinations HPI: Ivis Quijano is a 59 y.o. female who presents for evaluation of a possible allergic reaction. She states she had Botox injected into her esophagus a couple weeks ago for a swa llowing problem. Since that time she is had a lot of anxiety. Tonight her anxiety is worse than usual so she came to the emergency department. She states she feels like sometimes sh e is hallucinating. She states her mouth is very dry all the time. She is had no fever cou gh chills sweats or other associated symptoms. No vomiting or diarrhea. No chest pain or s hortness of breath. She states she cannot seem to sleep at night which is making her anxiet y even worse. PHYSICAL EXAM: VITAL SIGNS: Temp: 36.2 C (97.1 F) Pulse: 84 Resp: 16 SpO2: 96 % BP: 133/84 Constitutional: Well developed, Well nourished, No acute distress, Non-toxic appearance. HENT: Normocephalic, Atraumatic, Oropharynx moist, No obvious oral exudates, Nose normal. Neck- Normal range of motion, Supple, No stridor. Eyes: PERRL, EOMI, Conjunctiva normal, No discharge. Respiratory: No tachypnea, no intercostal retractions, no accessory muscle use, lungs clear to auscultation bilaterally Cardiovascular: rate and rhythm regular GI: nondistended nontender : not done Musculoskeletal: No visible edema Integument: Dry, No visible erythema, No rash. Neurologic: No gross motor deficit unless otherwise noted ED COURSE & MEDICAL DECISION MAKING: Last Set of Vital Signs: Temp: 36.2 C (97.1 F) Pulse: 84 Resp: 16 SpO2: 96 % BP: 133/84 Pertinent Labs, Nurses Note, & Imaging studies reviewed. (See chart for details) 59-year-old female with a lot of anxiety. I do not like she is having allergic reaction as it is been almost 2 weeks since she received the Botox injections. She states that she is having a very difficult time sleeping. She was given home pack of Ativan and a prescription as well and told to follow-up with her regular doctor next week. She is comfortable with t his plan. She does not seem to be having any acute process going on at this time other than anxiety. FINAL IMPRESSION: Anxiety PAST MEDICAL HISTORY Past Medical History: Diagnosis [...] MANOMETRY ESOPHAGEAL; Surgeon: Nishant Arceo MD; Location: [facility] GI MANOMETRY 02/05/2020 UPPER GASTROINTESTINAL ENDOSCOPY N/A 11/30/2017 Procedure: EGD; Surgeon: Loi Hui MD; Location: [facility] UPPER GASTROINTESTINAL ENDOSCOPY N/A 04/05/2019 Procedure: EGD; Surgeon: Loi Hui MD; Location: [facility] UPPER GASTROINTESTINAL ENDOSCOPY N/A 09/06/2019 Procedure: EGD; Surgeon: Rodriguez Gómez MD; Location: [facility] UPPER GASTROINTESTINAL ENDOSCOPY N/A 02/20/2020 Procedure: EGD; Surgeon: Nishant Arceo MD; Location: [facility] UPPER GASTROINTESTINAL ENDOSCOPY N/A 04/01/2020 Procedure: EGD W/ DILATATION- Botox; Surgeon: Nishant Arceo MD; Location: [facility] VEIN SURGERY CURRENT MEDICATIONS BRICKLAYER SEWER Home Medications Medication Sig ascorbic acid (VITAMIN [...] ONE TABLET BY MOUTH FOUR TIMES DAILY [] diphenhydrAMINE (BENADRYL) 25 mg tablet Take 1 tablet by mouth every 8 hours as needed for Itching for up to 5 days. diphenhydrAMINE-visc dcwkwjjiw-ykottasv-fivgzhhzf-simethicone (MIRACLE MOUTHWASH) suspe nsion Take 5 mLs by mouth every 6 hours as needed for Other (swish and swallow). (RECIPE = 1 :1:1 mixture of Maalox, diphenhydrAMINE, viscous lidocaine) EPINEPHrine auto-injector 0.3 mg/0.3 mL injection Inject 0.3 mLs into the muscle as nee ded for Anaphylaxis. [] famotidine (PEPCID) 20 mg tablet Take 1 tablet by mouth 2 times daily for 5 d ays. ibuprofen (ADVIL, MOTRIN) 200 mg tablet Take 400 mg by mouth every 6 hours as needed fo r Pain. imipramine (TOFRANIL) 25 mg tablet Take 1 tablet by mouth nightly. Lidocaine HCl (MAGIC + NYSTATIN MOUTHWASH) Take 10 mLs by mouth every 4 hours. Multiple Vitamin (MULTI-VITAMIN PO) Take 1 tablet by mouth Daily. non-formulary medication Take 2 tablets by mouth Daily. Super Energy supplement pantoprazole (PROTONIX) 40 mg tablet Take 1 tablet by mouth every morning (before break fast). UNABLE TO FIND Take 1-2 capsules by mouth Daily. Focus Factor ALLERGIES Allergies Allergen Reactions Levsin [Hyoscyamine] Swelling FAMILY HISTORY Family History Problem Relation Age [...] HPI and/or limited by patient conditio n EKG Not done RADIOLOGY No results found. LABS FROM THIS VISIT OR MOST RECENT ER VISIT: Results for orders placed or performed during the hospital encounter of 04/05/20 CBC with Differential Result Value Ref Range WBC 6.4 4.0 - 11.0 K/uL RBC 4.32 3.70 - 5.20 M/uL Hemoglobin 12.2 11.5 - 16.0 g/dL Hematocrit 36.3 34.0 - 47.0 % MCV 84.0 83.0 - 101.0 fL MCH 28.2 28.0 - 35.0 pg MCHC 33.6 32.0 - 36.0 g/dL RDW-CV 12.4 <15.0 % RDW-SD 37.6 35.1 - 46.3 fL Platelet Count 243 140 - 440 K/uL MPV 9.0 6.5 - 12.4 fL % Neutrophils 73.6 45.0 - 82.0 % % Lymphocytes 17.9 (L) 20.0 - 45.0 % % Monocytes 5.9 4.0 - 12.0 % % Eosinophils 1.1 0.0 - 5.0 % % Basophils 1.2 (H) 0.0 - 1.0 % % Immature Granulocytes 0.3 0.0 - 0.4 % Absolute Neutrophils 4.73 1.80 - 8.50 K/uL Absolute Lymphocytes 1.15 0.60 - 3.20 K/uL Absolute Monocytes 0.38 0.00 - 1.00 K/uL Absolute Eosinophils 0.07 0.00 - 0.40 K/uL Absolute Basophils 0.08 0.00 - 0.10 K/uL Absolute Immature Granulocytes 0.02 0.00 - 0.03 K/uL % nRBC 0 0 - 2 per 100 WBCs Absolute nRBC 0.00 0.00 - 0.01 K/uL Comprehensive Metabolic Panel Result Value Ref Range Na 136 136 - 145 mmol/L K 3.7 3.4 - 5.1 mmol/L Cl 101 98 - 107 mmol/L CO2 28 20 - 31 mmol/L Anion Gap 7 3 - 16 mmol/L Glucose 115 (H) 60 - 106 mg/dL BUN 11 9 - 23 mg/dL Creatinine 0.82 0.55 - 1.02 mg/dL eGFR if not >60 >=60 mL/min/1.73m2 Calcium 9.8 8.7 - 10.4 mg/dL Albumin 4.6 3.2 - 4.8 g/dL Bilirubin Total 0.5 0.3 - 1.2 mg/dL Total Protein 7.3 5.7 - 8.2 g/dL AST 21 0 - 34 U/L ALT 17 10 - 49 U/L Alkaline Phosphatase 113 46 - 116 U/L Globulin 2.7 2.1 - 3.8 g/dL Albumin/Globulin Ratio 1.7 0.8 - 1.9 BUN/Creatinine Ratio 13.4 Troponin I Result Value Ref Range Troponin I <0.01 <0.06 ng/mL ECG 12 lead Result Value Ref Range VENTRICULAR RATE EKG 71 BPM ATRIAL RATE 71 BPM P-R INTERVAL 146 ms QRS DURATION 80 ms Q-T INTERVAL 402 ms Q-T INTERVAL (CORRECTED) 436 ms P WAVE AXIS 55 degrees QRS AXIS 10 degrees T AXIS 30 degrees INTERPRETATION TEXT Sinus rhythm with premature ventricular complex RSR' pattern in V1 suggests right ventricular conduction delay When compared with ECG of 10-MAY-2020 15:06, No significant change was found Confirmed by VIRGIE MAXWELL MD ([id number]) on 04/06/2020 7:27:46 AM Jose De Jesus Cerna MD 04/11/202036 ingering, Bronson Wiseman RN - 04/11/2020 7:21 PM PDTPt. Having possible reaction to botox and levsin they caused an xiety and it scared. Seen at urgent care today. She causes she has hallucinations at times a s well. documented in this encounter Plan of Treatment + +------+--------+ + + | Name | Type | Priori | Associated Diagnoses | Date/Time | | | | ty | | | + +------+--------+ + + | ED INFORMATION | WALE | Routin | | 04/11/2020 7:17 PM | | EXCHANGE | | e | | PDT | + +------+--------+ + + documented as of this encounter Procedures + +--------+ + + + | Procedure Name | Priori | Date/Time | Associated Diagnosis | Comments | | | ty | | | | + +--------+ + + + | ED INFORMATION | Routin | 04/11/2020 [...] D?MRN: | | | | | | [id number] | | | [id number] | | | riteri | | | [...] .Flags | | | | | | [place] | | | ED | | | Dispar | | | ity | | | Measur | | | e - | | | [place] | | | has | | | [...] | | | s. | | | [place] | | | | | | Health [...] | | | By: | | | [place] | | | | | | Health [...] | | | MD | | | [employer] Field Specialist | | | al | | | [...] m | +---+--------+ documented in this encounter Visit Diagnoses + + | Diagnosis | + + | Anxiety - Primary Anxiety state, unspecified | + + documented in this encounter Administered Medications + + + +------+------+------+ | Medication Order | MAR | Action | Dose | Rate | Site | | | Action | Date | | | | + + + +------+------+------+ | LORazepam (ATIVAN) 1 mg tablet | Dispense | 04/11/20 | 1 mg | | | | (ER Prepack) 1 mg 1 mg, Oral, | to Home | 20 8:53 | | | | | DAILY PRN, Anxiety, Starting Wendy | | PM PDT | | | | | 04/11/20 at 2049, Patient Address: | | | | | | | [address] | | | | | | | [place] [address], | | | | | | + + + +------+------+------+ +---+---+ | | | +---+---+ documented in this encounter
--- OUTSIDE RECORDS SUMMARY | ~2020-05-16 | XMS | Encounter Summary ---
Demographics + + + | Address | [address] | | | [place] [address] | + + + | Home Phone [...] Team Providers + +------+ + | Care Cranberry Bog Supervisor Name | Role | Phone | + +------+ + | James Farmer MD | PCP | | + +------+ + Reason for Visit + +--------+ + | Reason | Onset | Comments | | | Date | | + +--------+ + | Recall For Services | 11/24/ | | | (DMST) | 2018 | | + +--------+ + | Mammogram | 11/24/ | | | | 2018 | | + +--------+ + | Pap Test | 11/24/ | | | | 2018 | | + +--------+ + | Colonoscopy | 11/24/ | | | | 2018 | | + +--------+ + Encounter Details +--------+ + + + + | Date | Type | Department | Care Team | Description | +--------+ + + + + | 11/24/ | Patient | [facility] | James Farmer, | Preventive | | 2019 | Outreach | MEDICINE [address] | [address] | Screening, Breast | | | | [place], | [place], [place] | Cancer Screening, | | | | [place] [address] | [address] | Cervical Cancer | | | | [phone] | | Screening, | | | | | | Colorectal Cancer | | | | | | Screening | +--------+ + + + + Social [...] this encounter Miscellaneous Notes Telephone Encounter - SHILOH ISBELL - 11/24/2018 3:13 PM PSTAutomated reminder call/text s ent to patient for the following due services: Colorectal Cancer Screening Mammogram Pap Smear Lipid Screening Please inform patient of due services. Please contact Population Health Support Team at if you have any questions regarding this message. documented in this encount er Plan of Treatment Not on filedocumented as of this encounter Visit Diagnoses Not on filedocumented in this encounter"
--- OUTSIDE RECORDS SUMMARY | ~2020-05-16 | XMS | Encounter Summary ---
Demographics + + + | Address | [address] | | | [place] [address] | + + + | Home Phone [...] Team Providers + +------+ + | Care Blending Tank Tender Helper Name | Role | Phone | + +------+ + | No, Physician | PCP | Unavailable | + +------+ + Reason for Visit + +--------+ + | Reason | Onset | Comments | | | Date | | + +--------+ + | Medication Refill | 05/19/ | | | | 2016 | | + +--------+ + Encounter Details +--------+--------+ + + + | Date | Type | Department | Care Team | Description | +--------+--------+ + + + | 05/19/ | Refill | [facility] | Meng Talley | Medication Refill | | 2016 | | CARE [address] | MD Sarah [address] | | | | | [place] | [place] | | | | | [address] | [address] | | | | | [phone] | | | +--------+--------+ + + + [...] Encounter - Bridgett Galdamez Cert MA - 05/19/2017 2:55 PM PDTFormatting of this no te might be different from the original. SENT REFILL REQUEST FOR: Medication omeprazole (PRILOSEC) 20 mg capsule [82212] omeprazole (PRILOSEC) 20 mg capsule [[id number]] Order Details Dose, Route, Frequency: As Directed Dispense Quantity: 40 capsule Refills: 1 Fills remaining: -- Sig: Take 1 capsule 30 minutes before breakfast and supper, twice daily for 7 days, then 30 minutes before breakfast once daily thereafter. Written Date: 04/29/17 Expiration Date: 04/29/18 Start Date: 04/29/17 End Date: -- ON THE SCRIPT- P[FARZANA WROTE THAT PT STATES '1 BID 'SEE SCANNED FORM documented in this encounter Plan of Treatment Not on filedocumented as of this encounter Visit Diagnoses Not on filedocumented in this encounter"
--- OUTSIDE RECORDS SUMMARY | ~2020-05-16 | XMS | Encounter Summary ---
Demographics + + + | Address | [address] | | | [place] [address] | + + + | Home Phone | | + + + | Preferred Language | Unknown | + + + | Marital Status | Single | + + + | Episcopalian Affiliation | [id number] | + + + [...] Team Providers + +------+ + | Care Slat Basket Maker Machine Name | Role | Phone | + +------+ + | James Farmer MD | PCP | | + +------+ + Reason for Visit + +--------+ + | Reason | Onset | Comments | | | Date | | + +--------+ + | Procedure | 03/14/ | EGD | | | 2020 | | + +--------+ + Encounter Details +--------+ + + + + | Date | Type | Department | Care Team | Description | +--------+ + + + + | 03/14/ | Telephone | [facility] | Nishant Arceo | Procedure (EGD) | | 2019 | | GASTROENTEROLOGY | MD [address] | | | | | [address] [facility] | [address] | | | | | [address] [place] | [place] [address] | | | | | [address] | [phone] | | | | | [phone] | | | +--------+ + + + [...] this encounter Miscellaneous Notes Telephone Encounter - Nishant Arceo MD - 03/14/2020 12:50 PM PDT03/26 will work. She d eclined the scope when offered earlier, now is asking us to get it done alverto. Her scheduled date is reasonable. elephone Encount er - Berna Esqueda RN - 03/14/2020 12:11 PM PDTReturned call to patient; she states she wants to go ahead and schedule her EGD now; she is still scheduled for OV with Dr. Arceo on 03/19; scheduled her for EGD on 03/26/2020; she was hoping for earlier; however, advised with COVID we have limited procedure dates; she was upset that she didn't decide to do this when previously offered but she had wanted to try the medication increase by ED; she doesn't feel it is working and tired of eating pudding and jell-O; she said she was almost finished with the medication; advised her she has just started the increase in medication an d would be finished by the time she had her OV with Dr. Arceo; if he feels she needs this so denise he will advise and we can see about adding her case onto next week. (Will route to him to see if needs to be marked as Urgent as CHRISTOPHER can take a while to approve otherwise). Apryl ctronically signed by Berna Esqueda, MORGAN at 03/14/2020 12:17 PM PDTTelephone Encounter - Kurt Perez - 03/14/2020 11:43 AM PDTName of Caller:Cherrie Quijano Name of Patient:Cherrie Quijano Reason for call: Pt called and wanted to talk to Berna in regards to a repeat EGD. Routing to clinical staff Provider/Nurse: Dr. Arceo/ Angelito Call back number:[phone] documented in this encou nter Plan of Treatment Not on filedocumented as of this encounter Visit Diagnoses + + | Diagnosis | + + | Candidiasis, esophageal (HCC) - Primary Candidiasis of the esophagus | + + | Esophageal dysphagia Dysphagia, pharyngoesophageal phase | + + | Esophagogastric junction outflow obstruction | + + | Esophagitis, [place] grade D | + + | Seizure (HCC) Other convulsions | + + | Depression with anxiety Dysthymic disorder | + + documented in this encounter"
--- OUTSIDE RECORDS SUMMARY | ~2020-05-16 | XMS | Encounter Summary ---
Demographics + + + | Address | [address] | | | [place] [address] | + + + | Home Phone [...] + + + + | 07/21/ | Hospital | [facility] | Zoraida Marie | Acute metabolic | | 2017 - | Encounter | [facility] | Lemon, DO [address] | encephalopathy; | | | | MEDICAL [address] | [address] | Dysphagia, | | 07/25/ | | [place], [place] | [place] [address] | unspecified type; | | 2017 | | [address] | [phone] | Hyponatremia; | | | | [phone] | | Normocytic anemia; | | | | | Romie Villegas, | Protein calorie | | | | | [address] | malnutrition (HCC); | | | | | 9TH FLR [place], | Seizure (HCC); [facility] | | | | | [place] [address] | (systemic | | | | | [phone] | inflammatory | | | | | | response syndrome) | | | | | Catrachita Moore MD | (HCC); | | | | | Need new address | Thrombocytopenia | | | | | | (HCC) | +--------+ + + + + [...] + + + | Blood Pressure | 120/66 | 07/25/2017 8:00 AM | | | | | PDT | | + + + + + | Pulse | 82 | 07/25/2017 8:00 AM | | | | | PDT | | + + + + + | Temperature | 37.1 C (98.8 F) | 07/25/2017 8:00 AM | | | | | PDT | | + + + + + | Respiratory Rate | 18 | 07/25/2017 8:00 AM | | | | | PDT | | + + + + + | Oxygen Saturation | 96% | 07/25/2017 8:00 AM | | | | | PDT | | + + + + + | Inhaled Oxygen | - | - | | | Concentration | | | | + + + + + | Weight | 83.1 kg (183 lb 3.2 | 07/24/2017 4:07 AM | | | | oz) | [...] of this note might be different from t anisa original. Pt. Name/Age/: Cherrie Quijano 56 y.o. 1960 [...] pt to see PCP for referral to [facility] for workup DISCHARGE DIAGNOSES: Active Hospital Problems [...] signed by: Catrachita Moore MD, 07/25/2017 10:19 [facility] Portions of this chart may have been created with [employer] voice recognition software. Occasi onal wrong-word or [...] Kimmy Key MD - 07/24/2017 6:13 PM [id number] female with dyphagia. Work up suggestive of [...] colo. 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 Occasi onal wrong-word or sound-alike substitutions may have occurred due to the inherent shannon itations of voice recognition software. Please read the chart carefully and recognize, using context, where these substitutions have occurred Sol Watson RN - 07/23/2017 9:12 PM PDT4 hour shift report: Patient is alert and oriented, [facility] , in the room helping [...] MSW - 07/23/2017 11:26 AM PDTPt's s tan requested info on local Hotels. Provided him with list and suggested he contact [facility] for hospital rates. A M Catrachita [...] -Na+ 140 on 07/23 AM Reviewed with electric meter installer Give ddAVP 2 mcg IV stat, will dose prn Give D5W 1L over 4hrs Stat q4 hr Na+ AM cortisol 12.7 Dysphagia Since 04/21 per patient Workup thus far has included barium esophagram Appreciate GI consulting- EGD/colonoscopy today if Na+ stable ST eval pending Acute metabolic encephalopathy Improved Protein calorie malnutrition Fryer Operator consult pending Thrombocytopenia Plt 128k Monitor Dc [...] Objective: Vital Signs 07/21 700 - 07/22 0607/22 - 07/23 0659 07/23 700 - 07/23 1115 Most Rec ent Temp [...] Negative KETONES UA Negative Negative mg/dL Specific [place] 1.010 1.001 - 1.030 PH UA 7.0 [...] this chart may have been created with [employer] voice recognition software. Occasi onal wrong-word or [...] weakness and headaches. Objective: Vital Signs 07/20 0700 - 07/21 0659 07/21 07 - 07/22 [...] Negative KETONES UA Negative Negative mg/dL Specific [place] 1.010 1.001 - 1.030 PH UA 7.0 [...] signed by: Zoraida Pinedo MD 07/22/2017 21:01 cKailee Figueroa RN - 07/22/2017 7:04 PM PDTPatient transfer Note Prior to patient transfer it was confirmed that the SBAR Handoff report was reviewed by 7N RN, and then that they had the opportunity to ask questions. Patient was then transferred t room 725-2 via bed, patient was not on security monitor during transport. At the time of t ransfer patient had patent venous access with fluids infusing (see flowsheet for details). Kailee Alcaraz RN SandrauAlireza MD - 07/22/2017 3:56 PM PDTGI note: [...] 6:39 AM PDT Critical Care Progress Note [facility] Date of Service: 07/22/2017 Admit Date: 07/21/2017 [...] consult Patient Safety Measures: Last bowel movement: LAY OUT FORMER Antibiotics: na to na Feeding/Nutrition: NPO Analgesia: [...] LABORATORY: I personally reviewed today's labs in [facility] and ordered appropriate follow-up la [...] KETONES UA Trace (A) Negative mg/dL Specific [place] 1.005 1.001 - 1.030 PH UA 7.0 [...] of this note might be different from th e original. PRESEDATION ASSESSMENT/PLAN Pertinent History and [...] held with the patien t or patient's medical detail representative prior to the procedure. Benefits and [...] PDT Critical Care Admission History and Physical [facility] Intensive Care Unit Pt. Name: Cherrie Quijano [...] ty and dysphagia, who was transferred to [facility] ICU today from [place] for status epilepti cus (3 generalized seizures without return to baseline), in the setting of severe hyponatrem ia. She had been undergoing a bowel prep in anticipation of EGD today for dysphagia evaluat ion. She got up to go to the bathroom, when her heard her moan and he went to [facility] -- she then had a seizure lasting [...] GERG, undergoing bowel prep for EGD to on [facility] er evaluate her recent issues [...] I discussed the care plan with the MESSAGE AND DELIVERY SERVICE PRICER and with nursing and other ancillary services during multidisciplinary rounds. I agree with the MESSAGE AND DELIVERY SERVICE PRICER's note above with the following corrections and/or [...] awaiting EGD. Speech therapy following and bhavna todd complete assessment once Pt back from procedure. [...] on general diet Chewing and swallowing difficulties LAY OUT FORMER? Yes Nutritional supplements? Yes, Tried to drink [...] kg/m.(based on estimated dry wt: 75.6 kg) [place] Body Weight (IBW), Female: 52.4 kg (115 lb 8.3 oz) Usual Body Weight: 93 kg (205 lb); % Usual Body Weight: 81 Weight History Per [facility] Records: 05/08/2011 88.451 kg 01/30/2016 88.905 kg [...] a nd stooling patterns Elise Gutierrez RD [id number] DATE/TIME: 07/23/2017 15:19 Treva Mark RN - [...] Note Room #722/722-02 ISO: None Item for appellate court clerk Comments Shift Summary A+O. Pleasant. [facility] diet w/o difficulty. Continuing on 2, [...] (H) 07/24/2017 0609 POCGLU 115 (H) 07/23/2017 205 POCGLU 120 (H) 07/23/2017 1708 Items to address 1:1 at bedside report: 1. Anticipated needs next 1-2 hours: ? Time sensitive labs next draw? ? PTT for heparin? ? Critical lab results to be called on? ? Gtt rate and adjustment times 2. Goals to progress towards discharge 3. MD Communication (pending/call needed?) lan of Nupur Williamson RN - 07/25/2017 2:26 PM PDTMet with [...] chantel to reach at after discharge is [phone]. lan of Hugo Blackburn OT - 07/25/2017 1:36 PM PDT Problem: [...] Equipment Issued: none Occupational Therapy will follow Chrerie Quijano 4 times/wk until discharge from therap y or discharged from the hospital. Planned Interventions include . General Observations: Pt was sitting EOB, and agreebale to OT this pm. Precautions: falls, seizures LUE WB status: RUE WB status: LLE WB status: RLE WB status: Pertinent History of Current Problem: Pt is a 56 year old female with hx of depression/anxi ety, new dysphagia (01/2017) who presented to [facility] with seizures and encephalopathy in settin g of severe hyponatremia. Social History: Pt resides in: , with significant other, and accessibility barriers. Equipment available includes: . 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; SO works ful l [...] Bed Mobility Supine to Sit Level of [place]: independent Assistive Device: none Sit to Supine Level of [place]: independent Assistive Device: none Transfers Sit to Stand Level of independence: supervised Assistive Device: none Stand to Sit Level of independence: supervised Assistive Device: none Toilet Level of [place]: Assistive Device: Walk-in Shower Level of [place]: Assistive Device: ADL Bathing Level of [place]: Assistive Device: Position: Upper body dressing Level of [place]: Assistive Device: Position: Lower body dressing Level of [place]: stand by assist Assistive Device: none Position: sitting Toilet training Level of [place]: Assistive Device: Position: Grooming Level of [place]: stand by assist Assistive Device: none Position: standing Eating/self-feeding Level of [place]: Assistive Device: Position: IADL: Functional Activity Tolerance: [...] Parkinson* Attending: Catrachita Moore MD Item for appellate court clerk Comments Shift Summary Shift note: No notable [...] void Active Gtt [] IVF / [] IV/SANITARY INSPECTOR / [x] Medlocked [x] Peripheral IV / [...] data found. 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 [employer] drives; does not own any ADs; tub [...] Gait See summary for details Level of [place]: stand by assist, supervised Assistive Device: none Distance (feet): 500' Stairs See summary for details Number of Stairs: 20 Handrail Location: other (see comments) (R descending) Level of [place]: stand by assist, supervised Assistive Device: 1 rail Technique Used: step to step (descending) Safety Issues: weight-shifting ability decreased Impairments: strength decreased, impaired balance Transfers Sit-Stand, Level of [place]: supervised Stand-Sit, Level of [place]: supervised [id number], Assistive Device: none Safety Issues: weight-shifting ability decreased, step length decreased Impairments: impaired balance, strength decreased Bed Mobility Assistive Device: none Roll Left, Level of [place]: independent Scoot/Bridge, Level of [place]: independent Supine to Sit, Level of [place]: independent Sit to Supine, Level of [place]: independent Impairments: strength decreased, impaired balance Balance [...] STG Status met at 07/25/2017 08 STG [place] Level independent at 07/25/2017 08 STG Assistive Device none at 07/25/2017 08 Jqnlun-Alq-Xoahlo Goal Flowsheet Row Most Recent Value STG Status met at 07/25/2017 0800 STG [place] Level independent at 07/25/2017 0800 STG Assistive Device none at 07/25/2017 0800 All Transfers Goal Flowsheet Row Most Recent Value STG Status progressing at 07/25/2017 08 STG [place] Level independent, modified independent at 07/25/2017 08 STG Assistive Device none, cane (straight, single point) at 07/25/2017 0800 Lkz-Fqfvq-Rkt Goal Flowsheet Row Most Recent Value STG Status met, revised at 07/25/2017 08 STG [place] Level independent at 07/25/2017 0800 STG Assistive Device none at 07/25/2017 0800 Gait Goal Flowsheet Row Most Recent Value STG Status progressing, revised at 07/25/2017 0800 STG [place] Level independent at 07/25/2017 08 STG Assistive Device none at 07/25/2017 0800 STG Distance (feet) 150 at 07/25/2017 0800 Stair Goal Flowsheet Row Most Recent Value STG Status progressing, revised at 07/25/2017 0800 STG [place] Level modified independent at 07/25/2017 0800 STG Assistive Device 1 rail at 07/25/2017 [...] Parkinson* Attending: Catrachita Moore MD Item for appellate court clerk Comments Shift Summary Shift note: During initial [...] void Active Gtt [] IVF / [] IV/SANITARY INSPECTOR / [x] Medlocked [x] Peripheral IV / [...] I stated that the MD would mable fy what she needs to accomplish to D/C. [...] Plan of Care Initial Evaluation Note Summary: DEMIAN serrano completed this am. PT reported concerns of [...] pt of results. Also, informed pt of [place]'s driving laws following a seizure. She reported she was living in [place]. Pt was advised to call DMV in [place] and ask the steps and laws of driving following a seizure, as I did not know the l aw. I did advise her not to drive due to results of the two tests. Pt was left at EOB, mckenzie cloud informed of pt's progress. D/c recommendations pending. She may benefit from another [place] hospital stay and further examination. OT will continue to follow. Occupational Therapy Discharge Recommendations are: Recommended discharge disposition: other (see comments) (TBD) Post discharge occupational therapy recommendation: (TBD) Equipment Recommendations: none Equipment Issued: none Occupational Therapy will follow Cherrie Quijano 4 times/wk until discharge from therap y or discharged from the hospital. Planned Interventions include . General Observations: Pt was sitting EOB, willing to complete OT eval Precautions: falls, seizures LUE WB status: RUE WB status: LLE WB status: RLE WB status: Pertinent History of Current Problem: Pt is a 56 year old female with hx of depression/anxi ety, new dysphagia (01/2017) who presented to [facility] with seizures and encephalopathy in [facility] g of severe hyponatremia. 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 Bed Mobility Supine to Sit Level of [place]: supervised Assistive Device: none Sit to Supine Level of [place]: supervised Assistive Device: none Transfers Sit to Stand Level of independence: stand by assist Assistive Device: none Stand to Sit Level of independence: stand by assist Assistive Device: none Toilet Level of [place]: Assistive Device: Walk-in Shower Level of [place]: Assistive Device: Balance Static Sitting: good balance Dynamic Sitting: good balance Static Standing: good balance Dynamic Standing: fair balance ADL Comments: Bathing Level of [place]: Assistive Device: Position: . Upper body dressing Level of [place]: Assistive Device: Position: Lower body dressing Level of [place]: stand by assist Assistive Device: none Position: sitting Toilet training Level of [place]: Assistive Device: Position: Grooming Level of [place]: stand by assist Assistive Device: none Position: standing Eating/self-feeding Level of [place]: Assistive Device: Position: IADL: Activity Tolerance: Good [...] with the plan. lan of Care - [facility], Romie Tavarez RN - 07/24/2017 12:43 PM PDTProblem: Patient [...] 13 8 lan of Care - Rona Prather, PT - 07/24/2017 12:00 PM PDT Problem: [...] RESTRAINT-RELATED GOALS: STRATEGIES TO ACHIEVE RESTRAINT GOALS: [facility] Physical Therapy OPIB Plan of Care Initial Evaluation, Treatment Note Patient Name: Cherrie Quijano Onset of Illness/Injury: 07/21/17 Start of Care/Start of Certification Date: 07/24/2017 End of Certification Date: 08/23/2017 Summary: Pt is a 56 year old female with hx of depression/anxiety, new dysphagia (01/2017) who presented to [facility] with seizures and encephalopathy in setting of severe hyponatremia. Pt presents to PT eval resting in bed with SO at bedside. Pt and SO report living together in split level home, both work duck bill operator (he at [employer] and she as [...] into deficits and impaired balance. Sina mmend 14/06 assist at d/c with HH PT to follow vs. SNF for continued therapies prior to d/c h ome where pt will need to be fully independent. Physical Therapy Discharge Recommendations are: Recommended discharge disposition: home with assist, residential facility Post discharge physical therapy recommendation: ongoing [...] ety, new dysphagia (01/2017) who presented to [facility] with seizures and encephalopathy in settin g of severe hyponatremia. Impairments Found: arousal, attention, and cognition, gait, locomotion, and balance, motor function, muscle performance, ROM General Information: Precautions: falls, seizures LUE WB status: RUE WB status: LLE WB status: RLE WB status: General Observations: Pt presents to session resting in bed; SO at bedside; agreeable to s frances Social History: Lives With: significant other Living Arrangements: # of Stairs to Enter Home: 1 ; Rail: ; # of Stairs Within Home: 14 (Split level with 7 up and 7 down with 1 rail) Additional Information: Pt reports living in split level home with 1 GEORGE; bed/bath on uppe r level and laundry is in basement; 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; 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 [employer] drives; does not own any ADs; tub [...] Gait See summary for details Level of [place]: stand by assist, minimal assist (75% patient effort) Assistive Device: cane (straight, single point), 2 wheeled walker (FWW), none Distance (feet): 2 x 150' Stairs See summary for details Number of Stairs: 8 Handrail Location: left side (ascending) Level of [place]: stand by assist Assistive Device: 1 rail Technique Used: step to step (ascending), step to step (descending) Safety Issues: weight-shifting ability decreased Impairments: strength decreased, impaired balance Transfers Sit-Stand, Level of [place]: stand by assist Stand-Sit, Level of [place]: stand by assist Afj-Whkmj-Idd, Assistive Device: none, cane (straight, single point) Safety Issues: step length decreased, sequencing ability decreased, weight-shifting ability decreased Impairments: impaired balance, strength decreased Bed Mobility Assistive Device: none Roll Left, Level of [place]: supervised Scoot/Bridge, Level of [place]: supervised Supine to Sit, Level of [place]: supervised Sit to Supine, Level of [place]: supervised Impairments: strength decreased, impaired balance Balance [...] STG Status new at 07/24/2017 1100 STG [place] Level independent at 07/24/2017 1100 STG Assistive Device none at 07/24/2017 1100 Xizqim-Pev-Ztyflr Goal Flowsheet Row Most Recent Value STG Status new at 07/24/2017 1100 STG [place] Level independent at 07/24/2017 1100 STG Assistive Device none at 07/24/2017 1100 All Transfers Goal Flowsheet Row Most Recent Value STG Status new at 07/24/2017 1100 STG [place] Level independent, modified independent at 07/24/2017 1100 STG Assistive Device none, cane (straight, single point) at 07/24/2017 1100 Eac-Njppq-Zgb Goal Flowsheet Row Most Recent Value STG Status new at 07/24/2017 1100 STG [place] Level independent, modified independent at 07/24/2017 1100 STG Assistive Device none, cane (straight, single point) at 07/24/2017 1100 Gait Goal Flowsheet Row Most Recent Value STG Status new at 07/24/2017 1100 STG [place] Level independent, modified independent at 07/24/2017 1100 STG Assistive Device none, cane (straight, single point) at 07/24/2017 1100 STG Distance (feet) 150 at 07/24/2017 1100 Stair Goal Flowsheet Row Most Recent Value STG Status new at 07/24/2017 1100 STG [place] Level modified independent at 07/24/2017 1100 STG [...] impaired, limited or restricted Outcome Measures Tools: [facility] 6-Clicks Form Justification of Severity Ratin/24 Electronically signed by: Rona Prather PT, 07/24/2017 12:00 lan of Care - [facility], Tripp Weeks RN - 07/24/2017 4:13 AM PDTFormatting of [...] Note Room #[id number] ISO: None Item for appellate court clerk Comments Shift Summary A/O x4, VSS, Na+ [...] (07/23/17 1400) Last Bowel Movement : 07/23/17 (07/23/171938) Active Gtt: Mentation/CAM +/- CAM Score: no [...] Height: Component Value Date/Time POCGLU 115 (H) 07/23/20172050 POCGLU 120 (H) 07/23/2017 1708 POCGLU 142 [...] 3. MD Communication (pending/call needed?) A lan [facility] - Jr Gaming RN - 07/23/2017 6:53 [...] eval. IV ML. Up with assist to BRSamira SO at bedside. Electronically signed by: Jr Gaming RN 07/23/2017 18:53 lan [facility] - Loly Noland Speech Pathologist - 07/23/2017 5:06 PM PDTSpeech Therapy Plan of Care Treatment Note Start of Care/Start of Certification Date: 07/23/17 End of Certification Date: 08/22/17 Summary: Patient seen for initial evaluation in [facility]. Orders received and completed re: patient's swallowing [...] her likely dysmoti lity. No further skilled [facility] needs indicated at this time. Thank you for this referral. Speech language pathology will follow Cherrie Quijano until discharge from therapy or discharged from the hospital. Speech Language Pathology Discharge Recommendations are: Recommended discharge disposition: home with family/caregiver Post discharge speech language pathology recommendation: Planned Interventions: compensatory strategies, diet texture modification, patient/caregiv er education PRODUCT SUPPORT MANAGER Diagnosis: Dysphagia Recommended Solid Texture: regular Recommended Medication Delivery: whole pills with thin liquids Recommended Liquid Texture: thin liquids Recommended Feeding/Eating Techniques: monitor for signs of aspiration Outcome Measures Tools: MANUEL NOMS Justification of Severity Rating: Clinical Swallow Evaluation THospital Course - Catrachita Moore MD - 07/23/2017 11:13 AM PDTMsSamira Quijano is a 56 YOF with a [...] for swallow assessment. Thank you. [facility]Plan [facility] - Tang Carrillo RN - 07/23/2017 1:33 [...] Note Room #725/725-02 ISO: None Item for appellate court clerk Comments Shift Summary Transfer from icu. Last [...] airways Last bowel movement: Last Bowel Movement: (LAY OUT FORMER) (07/21/17 0945) Active Gtt: Mentation/CAM +/- CAM [...] result, especially given NPO status lan of [facility] - Kailee Duarte RN - 07/22/2017 5:50 [...] Marlee Alcaraz RN 07/22/2017 17:50 lan of Loly Matias Speech Pathologist - 07/22/2017 10:38 AM PDTSpeech Therapy Plan of Ca re Missed Visit (procedure) Note Summary: Swallowing assessment orders acknowledged. Patient currently NPO for completion of EGD la ter today. STx to hold orders and complete swallow assessment as patient is alert and avail able following EGD. Thank you for this referral. TPlan of Robert Bill RN - 07/21/2017 7:00 PM PDTRestless and [...] | [address] | [place] [address] | | | [facility]ART [facility] | | | | | LABORATORY [...] + + | Glucose | 126 (H)Comment: [place] | 65 - 99 mg/dL | [facility] [...] + | [facility] | [address] | [place] [address] | | | [facility] | | | | [...] + + | [facility] | [address] | [place] [address] | | | [facility] | [...] [facility] | [address] | [place] [address] | | | [facility] | [...] | [address] [address] | [place] [address] | | | [facility] | | | | [...] + | CHARMAINE WALSH | [address] | [place] [address] | | | [facility] | | | | | LABORATORY [...] + | [facility] | [address] | [place] [address] | | | [facility] | [...] 2.9 | 2.3 - 4.8 mg/dL | [facility] [...] | [address] | [place] [address] | | | [facility] | [...] + + | CHARMAINE WALSH | [address] | [place] [address] | | | [facility] | | | | | LABORATORY [...] + + | Glucose | 118 (H)Comment: [place] | 65 - 99 mg/dL | [facility] [...] + + | CHARMAINE WALSH | [address] | [place] [address] | | | [facility] | | | | | LABORATORY [...] + + | [facility] | [address] | [place] [address] | | | [facility] | [...] SACRED | [address] | [place] [address] | | | [facility] | | | | [...] + | FLORNIKKIJeancarlos WALSH | [address] | [place] [address] | | | [facility] | | | | [...] + + | [facility] | [address] [place] | [place] [address] | | | [facility] | [...] + | CHARMAINE WALSH | [address] | [place] [address] | | | [facility] | [...] + + + + + | [facility] | [address] | [place] [address] | | | [facility] | | | | | LABORATORY [...] + | CHARMAINE WALSH | [address] | [place] [address] | | | [facility] | | | | | LABORATORY [...] SACRED | [address] | [place] [address] | | | [facility] | [...] + + + + + | [facility] | [address] | [place] [address] | | | [facility] | [...] + | [facility] | [address] | [place] [address] | | | [facility] | | | | | LABORATORY [...] + + | CHARMAINE WALSH | [address] | [place] [address] | | | [facility] | | | | [...] 24 | 21 - 28 mmol/L | [facility] | | | | | | [facility] | | | | | | HEART | | | | | | MEDICAL | | | | | | CENTER | | | | | | LABORATORY | | + + + + + + | Glucose | 106 (H)Comment: [place] | 65 - 99 mg/dL | [place] | | | | Diabetes Association | [...] + + | FLORRONNIE MARTELRUSSELL | [address] | [place] [address] | | | [facility] | | | | | LABORATORY [...] + | CHARMAINE WALSH | [address] | [place] [address] | | | [facility] | | | | | LABORATORY | | | | + + + + + Hemoglobin A1C (07/23/2017 12:12 AM PDT) + + + + + + | Component | Value | Ref Range | Performed | Pathologist | | | | | At | Signature | + + + + + + | Hemoglobin | 5.4Comment: The [place] | 4.3 - 6.1 % | [facility] | | | A1c | Diabetes Association | | SACR[facility] | | | | considers a result [...] + + + + + | [facility] | [address] | [place] [address] | | | [facility] | [...] + + | CHARMAINE WALSH | [address] | [place] [address] | | | [facility] | | | | | LABORATORY [...] + | CHARMAINE WALSH | [address] | [place] [address] | | | [facility] | | | | | LABORATORY [...] + | [facility] | [address] | [place] [address] | | | [facility] | [...] + | Manohar, Jarek Results In - 07/22/2017 7:12 PM PDT [...] - 1.030 | [facility] | | | [place] | | | SACRED | | | [...] + + | [facility] | [address] | [place] [address] | | | [facility] | | | | | LABORATORY [...] + + | CHARMAINE WALSH | [address] | [place] [address] | | | [facility] | | | | | LABORATORY [...] + | [facility] | [address] | [place] [address] | | | [facility] | | | | [...] + + | CHARMAINE WALSH | [address] | [place] [address] | | | [facility] | | | | | LABORATORY [...] + | CHARMAINE SACRRUSSELL | [address] | [place] [address] | | | [facility] | | | | [...] + + | [facility] | [address] | [place] [address] | | | [facility] | | | | [...] + + | FLORNIKKIJeancarlos WALSH | [address] | [place] [address] | | | [facility] | | | | | LABORATORY [...] + | [facility] | [address] | [place] [address] | | | [facility] | [...] + + + + + | [facility] | [address] | [place] [address] | | | [facility] | [...] + | CHARMAINE WALSH | [address] | [place] [address] | | | [facility] | | | | | LABORATORY [...] + + | CHARMAINE WALSH | [address] | [place] [address] | | | [facility] | [...] + + | [facility] | [address] [place] | [place] [address] | | | [facility] | | | | | LABORATORY [...] + + | [facility] | [address] | [place] [address] | | | [facility] | [...] + | FLORNIKKIJeancarlos WALSH | [address] | [place] [address] | | | [facility] | | | | | LABORATORY [...] + | [facility] | [address] | [place] [address] | | | [facility] | [...] + + + + + | [facility] | [address] | [place] [address] | | | [facility] | | | | | LABORATORY [...] + + | [facility] | [address] | [place] [address] | | | [facility] | | | | | LABORATORY [...] + + | FLORNIKKIJeancarlos WALSH | [address] | [place] [address] | | | [facility] | [...] + + | [facility] | [address] | [place] [address] | | | [facility] | | | | | LABORATORY [...] SACRED | [address] | [place] [address] | | | [facility] | | | | | LABORATORY [...] + + | Glucose | 329 (H)Comment: [place] | 65 - 99 mg/dL | [facility] [...] + + | CHARMAINE WALSH | [address] | [place] [address] | | | [facility] | | | | | LABORATORY [...] + + | [facility] | [address] | [place] [address] | | | [facility] | [...] + | Jarek Villela Results In - 07/21/2017 10:51 PM PDT [...] + | CHARMAINE WALSH | [address] | [place] [address] | | | [facility] | | | | [...] 27 | 19 - 311 mg/dL | [facility] | | | random | | | [...] + + | CHARMAINE WALSH | [address] | [place] [address] | | | [facility] | | | | | LABORATORY [...] + + | CHARMAINE WALSH | [address] | [place] [address] | | | [facility] | | | | | LABORATORY [...] + + | [facility] | [address] | [place] [address] | | | [facility] | | | | | LABORATORY [...] - 1.030 | [facility] | | | [place] | | | SACRED | | | [...] + | [facility] | [address] | [place] [address] | | | [facility] | | | | | LABORATORY [...] + + | CHARMAINE WALSH | [address] | [place] [address] | | | [facility] | | | | | LABORATORY [...] | | | | CALLED TO EZE Bowles [address] | | MEDICAL | | | [...] (L) | 21 - 28 mmol/L | [facility] | | | | | | [facility] | | | | | | HEART | | | | | | MEDICAL | | | | | | CENTER | | | | | | LABORATORY | | + + + + + + | Glucose | 129 (H)Comment: [place] | 65 - 99 mg/dL | [place] | | | | Diabetes Association | [...] + | [facility] | [address] | [place] [address] | | | [facility] | | | | | [...] + + | CHARMAINE WALSH | [address] | [place] [address] | | | [facility] | | | | | LABORATORY [...] + | [facility] | [address] | [place] [address] | | | [facility] | | | | | LABORATORY | | | | + + + + + documented in this encounter Visit Diagnoses + + | Diagnosis | + + | Hyponatremia - Primary Hyposmolality and/or hyponatremia | + + | Acute metabolic encephalopathy | + + | Dysphagia, unspecified type | + + | Normocytic anemia Anemia, unspecified | + + | Protein calorie malnutrition (HCC) Unspecified protein-calorie malnutrition | + + | Seizure (HCC) Other convulsions | + + | SIRS (systemic inflammatory response syndrome) (HCC) Systemic inflammatory response | | syndrome, unspecified | + + | Thrombocytopenia (HCC) Thrombocytopenia, unspecified | + + | Severe protein-calorie malnutrition (HCC) Other severe protein-calorie malnutrition | + + documented in this encounter [...] | | | | | Breath, Starting [facility] 07/22/17 at | | | | [...] PDT | | | | +-------+ +---------+---+---+ +---+---+ | | | +---+---+ + +---------+ +-----+-------+---+ | ampicillin-sulbactam (UNASYN) 3 | New Bag | 07/23/20 | 3 g | 200 | | | g in sodium chloride 0.9% 100 mL | | 17 5:01 | | mL/hr | | | IVPB 3 g, Intravenous, | | AM PDT | | | | | Administer over 30 Minutes, EVERY | | | | | | | 6 HOURS (4 times per day), First | | | | | | | dose on [facility] 07/22/17 at 1800, | | | | | | | Activate system and mix before | | | | | | | use., Indications: Aspiration | | | | | | | Pneumonia | | | | | | + +---------+ +-----+-------+---+ +---------+ +-----+-------+---+ | New Bag | 07/23/20 | 3 g | 200 | | | | 17 12:59 | | mL/hr | | | | AM PDT | | | | +---------+ +-----+-------+---+ | New Bag | 07/22/20 | 3 g | 200 | | | | 17 6:00 | | mL/hr | | | | PM PDT | | | | +---------+ +-----+-------+---+ +---+---+ | | | +---+---+ + +---------+ +-------+ +---+ | desmopressin (DDAVP) 2 mcg in | New Bag | 07/21/20 | 2 mcg | 51 mL/hr | | | sodium chloride 0.9% 25 mL IVPB | | 17 9:00 | | | | | 2 mcg, Intravenous, Administer | | PM PDT | | | | | over 30 Minutes, 2 TIMES DAILY, | | | | | | | First dose (after last | | | | | | | modification) on Wed07/21/17 at | | | | | | | 1845, Keep in refrigerator., | | | | | | + +---------+ +-------+ +---+ +---+---+ | | | +---+---+ + +---------+ +-------+-------+---+ | desmopressin (DDAVP) 2 mcg in | New Bag | 07/21/20 | 2 mcg | 101 | | | sodium chloride 0.9% 50 mL IVPB | | 17 10:30 | | mL/hr | | | 2 mcg, Intravenous, Administer | | PM PDT | | | | | over 30 Minutes, ONCE, Wed | | | | | | | 07/21/17 at 2230, For 1 dose, Keep | | | | | | | in refrigerator., | | | | | | + +---------+ +-------+-------+---+ +---+---+ | | | +---+---+ + +---------+ +-------+-------+---+ | desmopressin (DDAVP) 2 mcg in | New Bag | 07/23/20 | 2 mcg | 101 | | | sodium chloride 0.9% 50 mL IVPB | | 17 11:42 | | mL/hr | | | 2 mcg, Intravenous, Administer | | AM PDT | | | | | over 30 Minutes, ONCE, 07/23/17 | | | | | | | at 1115, For 1 dose, Keep in | | | | | | | refrigerator., | | | | | | + +---------+ +-------+-------+---+ +---+---+ | | | +---+---+ + + + + +-------+---+ | dexmedetomidine (PRECEDEX) 4 | Rate/Dos | 07/22/20 | 0.4 | 6.6 | | | mcg/mL in sodium chloride 0.9% | e Verify | 17 1:00 | mcg/kg/h | mL/hr | | | 100 mL infusion 0.2-1.5 | | AM PDT | r | | | | mcg/kg/hr | | | | | | | 66 kg Adjusted weight (3.3-24.75 | | | | | | | mL/hr, rounded to 3.3-24.8 | | | | | | | mL/hr), at 3.3-24.8 mL/hr, | | | | | | | Intravenous, TITRATED, Starting | | | | | | | 07/21/17 at 1500, Administer | | | | | | | ONLY in a Critical Care Area. | | | | | | | 0.2-1.5 mcg/kg/hr, Intravenous, | | | | | | | TITRATED, Titrate every 15 | | | | | | | minutes by 0.2 mcg/kg/hr to | | | | | | | achieve RASS goal in | | | | | | | pain/sedation/delirium management | | | | | | | order (maximum dose = 1.5 | | | | | | | mcg/kg/hr).Reduce dose every 4 | | | | | | | hours to the lowest dose required | | | | | | | to meet sedation goal., Initial | | | | | | | dose: 0.2 mcg/kg/hr, Goal: RASS | | | | | | | -2 to 0 | | | | | | + + + + +-------+---+ + + + +-------+---+ | Rate/Dose Change | 07/22/20 | 0.4 | 6.6 | | | | 17 12:00 | mcg/kg/h | mL/hr | | | | AM PDT | r | | | + + + +-------+---+ | Rate/Dose Verify | 07/21/20 | 0.6 | 9.9 | | | | 17 11:00 | mcg/kg/h | mL/hr | | | | PM PDT | r | | | + + + +-------+---+ +---+---+ | | | +---+---+ + +---------+ +--------+-------+---+ | dextrose 5% (D5W) bolus 1,000 | New Bag | 07/23/20 | 1,000 | 250 | | | mL 1,000 mL, Intravenous, | | 17 10:54 | mLs | mL/hr | | | Administer over 4 Hours, ONCE, | | AM PDT | | | | | 07/23/17 at 1100, For 1 dose | | | | | | + +---------+ +--------+-------+---+ +---+---+ | | | +---+---+ + +---------+ +---+-------+---+ | dextrose 5% (D5W) infusion at | New Bag | 07/22/20 | | 200 | | | 200 mL/hr, Intravenous, | | 17 4:00 | | mL/hr | | | CONTINUOUS, Starting 07/21/17 | | AM PDT | | | | | at 2230 | | | | | | + +---------+ +---+-------+---+ + + +---+-------+---+ | Rate/Dose Verify | 07/22/20 | | 200 | | | | 17 3:00 | | mL/hr | | | | AM PDT | | | | + + +---+-------+---+ | Rate/Dose Verify | 07/22/20 | | 200 | | | | 17 2:00 | | mL/hr | | | | AM PDT | | | | + + +---+-------+---+ +---+---+ | | | +---+---+ + +---------+ +---+-------+---+ | dextrose 5% with KCl 20 mEq/L | New Bag | 07/21/20 | | 150 | | | (D5W + KCL 20) infusion at 150 | | 17 10:00 | | mL/hr | | | mL/hr, Intravenous, CONTINUOUS, | | PM PDT | | | | | Starting 07/21/17 at 1245 | | | | | | + +---------+ +---+-------+---+ + + +---+-------+---+ | Rate/Dose Verify | 07/21/20 | | 150 | | | | 17 9:00 | | mL/hr | | | | PM PDT | | | | + + +---+-------+---+ | Rate/Dose Verify | 07/21/20 | | 150 | | | | 17 8:00 | | mL/hr | | | | PM PDT | | | | + + +---+-------+---+ +---+---+ | | | +---+---+ + +-------+ +--------+---+---+ | dextrose 50% injection 12.5 g | Given | 07/22/20 | 12.5 g | | | | 12.5 g, Intravenous, PRN, Low | | 17 7:39 | | | | | Blood Sugar, Starting [facility] 07/22/17 | | AM PDT | | | | | at 0346 | | | | | | + +-------+ +--------+---+---+ +---+---+ | | | +---+---+ + +-------+ +-------+---+ + | enoxaparin (LOVENOX) 40 mg/0.4 | Given | 07/22/20 | 40 mg | | Abdomen- | | mL injection 40 mg 40 mg, | | 17 9:22 | | | LUQ | | Subcutaneous, EVERY 24 HOURS | | AM PDT | | | | | (Daily), First dose on Wed | | | | | | | 07/21/17 at 1115 | | | | | | + +-------+ +-------+---+ + +-------+ +-------+---+ + | Given | 07/21/20 | 40 mg | | Abdomen- | | | 17 1:59 | | | LLQ | | | PM PDT | | | | +-------+ +-------+---+ + +---+---+ | | | +---+---+ + +-------+ +---------+---+ + | insulin lispro (humaLOG) 100 | Given | 07/22/20 | 3 Units | | Abdomen- | | units/mL injection (vial) 0-6 | | 17 4:30 | | | RLQ | | Units 0-6 Units, Subcutaneous, 6 | | AM PDT | | | | | TIMES DAILY, First dose on Wendy | | | | | | | 07/22/17 at 0600, CORRECTION | | | | | | | SCALE: Blood Glucose (BG) < | | | | | | | 150: None BG | | | | | | | 150-200: DAY: 1 units. NIGHT: 0 | | | | | | | units BG 201-250: DAY: 2 units. | | | | | | | NIGHT: 1 units BG 251-300: | | | | | | | DAY: 3 units. NIGHT: 2 units | | | | | | | BG 301-350: DAY: 4 units. NIGHT: | | | | | | | 3 units BG 351-400: DAY: 5 | | | | | | | units. NIGHT: 4 units BG > | | | | | | | 400 : DAY: 6 units. NIGHT: 5 | | | | | | | units | | | | | | | AND CALL PROVIDER Use DAY DOSE | | | | | | | for doses scheduled: AC, | | | | | | | NPO, Daytime 6820-6420 Use NIGHT | | | | | | | DOSE for doses scheduled: | | | | | | | HS, 3AM, Nighttime 1267-3621, | | | | | | + +-------+ +---------+---+ + +---+---+ | | | +---+---+ + +---------+ +--------+-------+---+ | levETIRAcetam (KEPPRA) IVPB 500 | New Bag | 07/21/20 | 500 mg | 400 | | | mg 500 mg, Intravenous, | | 17 11:00 | | mL/hr | | | Administer over 15 Minutes, EVERY | | PM PDT | | | | | 12 HOURS (2 times per day), | | | | | | | First dose on Wed07/21/17 at 2230 | | | | | | + +---------+ +--------+-------+---+ + +---+ | | | + +---+ | LORazepam (ATIVAN) injection | | | 0.5-1 mg 0.5-1 mg, Intravenous, | | | EVERY 4 HOURS PRN, Seizures, | | | Starting 07/24/17 at 1110 | | + +---+ | | | + +---+ + +---------+ +-----+ +---+ | magnesium sulfate 2 g/50 mL | New Bag | 07/22/20 | 2 g | 25 mL/hr | | | IVPB 2 g 2 g, Intravenous, | | 17 4:00 | | | | | Administer over 120 Minutes, PRN, | | AM PDT | | | | | Per protocol, Starting Wed | | | | | | | 07/21/17 at 1024, ICU Use Only | | | | | | | Protocol NOT recommended if Scr | | | | | | | > 1.8, dialysis patients or CrCl | | | | | | | < 50 mL/min Magnesium = 1-1.9 | | | | | | | mg/dL Give magnesium sulfate 2 | | | | | | | g IV x1 * Check magnesium 2 | | | | | | | hours after infusion is completed | | | | | | | If magnesium still < 1.9 | | | | | | | mg/dL,replace as indicated per | | | | | | | protocol Maximum recommended | | | | | | | infusion rate = 1 gram/hour., | | | | | | + +---------+ +-----+ +---+ + +---+ | | | + +---+ [...] +-------+---+---+ | pantoprazole (PROTONIX) | Given | 07/24/20 | 40 mg | | | | injection 40 mg 40 mg, | | 17 9:13 | | | | | Intravenous, DAILY, First dose on | | AM PDT | | | | | Wed 17 at 1700, Mix each | | | | | | | 40mg vial with 10 mL NS to make 4 | | | | | | | mg/mL., | | | | | | + +-------+ +-------+---+---+ +-------+ +-------+---+---+ | Given | 07/23/20 | 40 mg | | | | | 17 8:12 | | | | | | AM PDT | | | | +-------+ +-------+---+---+ | Given | 07/22/20 | 40 mg | | | | | 17 9:22 | | | | | | AM PDT | | | | +-------+ +-------+---+---+ +---+---+ | | | +---+---+ + +-------+ +------+---+---+ | polyethylene glycol (MIRALAX) | Given | 07/24/20 | 17 g | | | | powder 17 g 17 g, Oral, 3 TIMES | | 17 9:14 | | | | | DAILY, First dose on [facility] 07/22/17 | | AM PDT | | | | | at 1630, Mix with 8 oz. water., | | | | | | + +-------+ +------+---+---+ +---+---+ | | | +---+---+ + +---------+ +--------+-------+---+ | potassium chloride 10 mEq in | New Bag | 07/22/20 | 10 mEq | 100 | | | sterile water 100 mL IVPB | | 17 9:17 | | mL/hr | | | mEq, Intravenous, Administer over | | AM PDT | | | | | 1 Hours, PRN, Per protocol, | | | | | | | Starting 07/21/17 at 1024, | | | | | | | ICU Use Only Protocol NOT | | | | | | | recommended if Scr > 1.8, | | | | | | | dialysis patients or CrCl < 50 | | | | | | | mL/min [K+] =3.6 - 4 mEql/L | | | | | | | Give 10 mEq KCl Q1H IV x 4 doses | | | | | | | For a total of 40 mEq [K+] =3 | | | | | | | - 3.5 mEql/L Give 10 meq KCl | | | | | | | Q1H IV x 6 doses For a total | | | | | | | of 60 mEq [K+] < 3.0 mEql/L | | | | | | | Give 10 mEq KCl Q1H IV x 8 doses | | | | | | | For a total of 80 mEq. * | | | | | | | Obtain K+ level 2 hours after | | | | | | | replacement is done. If K+ | | | | | | | still < 3.6 mEq/L, repeat | | | | | | | replacement as indicated per | | | | | | | protocol. Give either tablet, | | | | | | | liquid, or IV but never more than | | | | | | | one form., | | | | | | + +---------+ +--------+-------+---+ +---------+ +--------+-------+---+ | New Bag | 07/22/20 | 10 mEq | 100 | | | | 17 8:15 | | mL/hr | | | | AM PDT | | | | +---------+ +--------+-------+---+ | New Bag | 07/22/20 | 10 mEq | 100 | | | | 17 7:00 | | mL/hr | | | | AM PDT | | | | +---------+ +--------+-------+---+ +---+---+ | | | +---+---+ + + + +---+-------+---+ | sodium chloride 0.225% (1/4 NS) | Rate/Dos | 07/22/20 | | 100 | | | infusion 1,000 mL Intravenous, | e Verify | 17 6:00 | | mL/hr | | | at 100 mL/hr, CONTINUOUS, | | PM PDT | | | | | Starting [facility] 07/22/17 at 0415, For | | | | | | | 24 hours | | | | | | + + + +---+-------+---+ + + +---+-------+---+ | Rate/Dose Verify | 07/22/20 | | 100 | | | | 17 5:00 | | mL/hr | | | | PM PDT | | | | + + +---+-------+---+ | Rate/Dose Verify | 07/22/20 | | 100 | | | | 17 4:00 | | mL/hr | | | | PM PDT | | | | + + +---+-------+---+ +---+---+ | | | +---+---+ + +---------+ +---------+-------+---+ | sodium phosphate 27 mmol in | New Bag | 07/22/20 | 27 mmol | 64.8 | | | sodium chloride 0.9% 250 mL IVPB | | 17 5:00 | | mL/hr | | | 27 mmol, Intravenous, Administer | | AM PDT | | | | | over 4 Hours, PRN, Per protocol, | | | | | | | Starting 07/21/17 at 1025, | | | | | | | ICU Use Only Protocol NOT | | | | | | | recommended if Scr > 1.8, | | | | | | | dialysis patients or CrCl < 50 | | | | | | | mL/min Patient Weight = 81-90 | | | | | | | Kg Protocol. [PO4] = 1.6-2.4 | | | | | | | mg/dL Give sodium phosphate 27 | | | | | | | mmol. *Obtain serum phosphorus | | | | | | | level 4 hours after replacement | | | | | | | is done. If serum phosphorus | | | | | | | still < 2.5 mg/dL, repeat | | | | | | | replacement as indicated per | | | | | | | protocol, | | | | | | + [...]
--- OUTSIDE RECORDS SUMMARY | ~2020-05-16 | XMS | Encounter Summary ---
Demographics + + + | Address | [address] | | | [place] [address] | + + + | Home Phone | | + + + | Preferred Language | Unknown | + + + | Marital Status | Single | + + + | Anglican Affiliation | 1013 | + + + [...] Team Providers + +------+ + | Care Cover Maker Name | Role | Phone | + +------+ + | James Farmer MD | PCP | | + +------+ + Reason for Visit + +--------+ + | Reason | Onset | Comments | | | Date | | + +--------+ + | Appointment | 10/09/ | | | | 2019 | | + +--------+ + Encounter Details +--------+ + + + + | Date | Type | Department | Care Team | Description | +--------+ + + + + | 10/09/ | Telephone | [facility] | Rodriguez Gómez MD | Appointment | | 2018 | | GASTROENTEROLOGY | [address], [place] | | | | | [address] [place] | [address] | | | | | [address] [place], [place] | [address] | | | | | [id number] | | | | | | [phone] | | | +--------+ + + + [...] Notes Telephone Encounter - Kurt Perez - 10/10/2019 2:58 PM PSTPatient is schedule on 08/[address] Gómez. Closing encounter. elephone Encounter - Jocelyn Mora RN - 10/10/2019 7:53 AM PSTPSR p margarettease note I offered 10/30/19 Not 10/23/19 elephone Encounter - Kurt Perez - 10/09/2019 4:03 PM PSTSeco nd Attempt:LVM to schedule pt for a follow up with DR. Gómez on 10/23/19 at 2 pm in regards to difficulty with her swallowing. elephone Encounter - Jocelyn Mora RN - 10/09/2019 3:02 PM PSTLM for pt that Dr Gómez is agreeable to see in the office in follow-up on WednesdayOctober 30 at 2 PM f or ongoing difficulty with her swallowing.Electronically signed by MORGAN Moore t 10/09/2019 3:04 PM PSTTelephone Encounter - Jocelyn Mora RN - 10/09/2019 8:53 A M PSTPt calls saying she continues to have difficulty with her eating and swallowing. She i s trying to follow the speech therapist suggestions but when she tries to eat the foods she likes she feels as though they get stuck or feels like she has "sand in her throat". She is taking isosorbide 30 minutes before meals which helps somewhat. She asked for a follow-up appointment with Dr. Gómez. Asks if there is anything else that can be done. documented in this encounter Plan of Treatment Not on filedocumented as of this encounter Visit Diagnoses Not on filedocumented in this encounter
--- OUTSIDE RECORDS SUMMARY | ~2020-05-16 | XMS | Encounter Summary ---
Demographics + + + | Address | [address] | | | [place] [address] | + + + | Home Phone [...] Team Providers + +------+ + | Care Asbestos Remover Name | Role | Phone | + +------+ + | James Farmer MD | PCP | | + +------+ + Reason for Visit + + + | Reason | Comments | + + + | Screening For | Pre op: DOS: 5.20 | | Communicable Disease | | + + + Encounter Details +--------+ + + + + | Date | Type | Department | Care Team | Description | +--------+ + + + + | 03/29/ | Clinical | [facility] | Josh Hedrick | Preop testing | | 2020 | Support | CARE [address] | [address]LLY [address] | (Primary Dx); | | | | [place] | [address] | Esophageal dysphagia | | | | [address] | [place] [address] | | | | | [phone] | [phone] | | | | | | | [...] + + + + | Pulse | 72 | 03/29/2020 8:02 AM | | | | | PDT | | + + + + + | Temperature | 36.6 C (97.8 F) | 03/29/2020 8:02 AM | | | | | PDT | | + + + + + | Respiratory Rate | - | - | | + + + + + | Oxygen Saturation | 98% | 03/29/2020 8:02 AM | | | | | PDT [...] + documented in this encounter Progress Notes Shaye Martin, Bean Sprout Grower - 03/29/2020 8:00 [facility] [place] [facility]-19 Fast [facility] Clinic Intake Form (MA) Affix Patient Label [] Photo ID Verified Patient Name:Cherrie Urias Samm Provider:[facility] N[facility]SE :1960 Date:03/29/20 [] If <15 or >70 years of age, confer with provider to see if they want patient to be swab bed in DT or to be seen. [] Intention to see provider [x] Intention for screening at drive through [employer]: Activated Symptom Screen: How many days have you been experiencing symptoms? 0 days [] Cough: duration of cough? 0 days ? 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 [] Shortness of breath, confer with provider to decide if patient needs to be seen insid e [x] Symptom check completed - patient is asymptomatic - here for pre-procedure screening o evelin [] Other: Electr onically signed by Shaye Martin, Bean Sprout Grower at 03/29/2020 8:14 AM PDTdocumented i n this encounter Plan of Treatment [...] + + documented in this encounter Results Coronavirus (COVID-19) NAAT (03/29/2020 [...] + + | Performed at: [facility] - [facility] [address] [place], [place] | REFERENCE LAB | | [id number] Mangle Roll Operator: Juan Carlos Gallagher MD, Phone: [phone] | [facility] | + + + + + + + + | Performing | Address | City/State/Zipcode | Phone Number | | Organization | | | | + + + + + | REFERENCE LAB | [address] | [place], [place] | [phone] | | [facility] | [facility] | [address] | | + + + + + documented in this encounter Visit Diagnoses + + | Diagnosis | + + | Preop testing - Primary Preoperative examination, unspecified | + + | Esophageal dysphagia Dysphagia, pharyngoesophageal phase | + + documented in this encounter"
--- OUTSIDE RECORDS SUMMARY | ~2020-05-16 | XMS | Encounter Summary ---
Demographics + + + | Address | [address] | | | [place] [address] | + + + | Home Phone [...] Team Providers + +------+ + | Care Child Daycare Worker Name | Role | Phone | + +------+ + | James Farmer MD | PCP | | + +------+ + Reason for Visit + +--------+ + | Reason | Onset | Comments | | | Date | | + +--------+ + | Results, Pathology | 09/11/ | egd | | | 2018 | | + +--------+ + Encounter Details +--------+ + + + + | Date | Type | Department | Care Team | Description | +--------+ + + + + | 09/11/ | Telephone | [facility] | Rodriguez Gómez MD | Results, Pathology | | 2018 | | GASTROENTEROLOGY | [address] | (egd) | | | | [address] | [address] [place] | | | | | [address] [place], [place] | [address] | | | | | [address] | | | | | | [phone] | | | +--------+ + + + [...] Telephone Encounter - Jocelyn Mora RN - 09/11/2019 3:19 PM PDTReviewed results fr om Dr. Gómez. Patient states she is taking Protonix 40 mg daily. Esophageal biopsies posit saeid for Mares's negative for atypia. Mid esophageal biopsies negative for eosinophilic es ophagitis. Patient should have a follow-up EGD in 1 year. She states she is scheduled for a video esophagram with speech September 22.Electronically signed by MORGAN Moore t 09/11/2019 3:21 PM PDTTelephone Encounter - Jocelyn Mora RN - 09/11/2019 3:19 P M PDT----- Message from Rodriguez Gómez MD sent at 09/11/2019 7:33 PDT ----- The patient was hospitalized for dysphasia regurgitation possible vomiting. Upper endoscop y was positive for distal esophagitis with Mares's metaplasia no evidence for atypia. Mid esophageal biopsies were negative for eosinophilic esophagitis. There is no mechanical carmen son for her dysphasia noted on endoscopy. H. pylori biopsy was negative. Patient should co ntinue on her PPI regimen at least 40 mg a day and follow on antireflux regimen. She should have a follow-up upper endoscopy in 1 year. If her dysphasia continues the patient's shoul d have a barium swallow to further evaluate the same. Esophagram in 2017 showed a small sli ding hiatal hernia and poor esophageal motility documented in this encounter Plan of Treatment Not on filedocumented as of this encounter Visit Diagnoses Not on filedocumented in this encounter"
--- OUTSIDE RECORDS SUMMARY | ~2020-05-16 | XMS | Encounter Summary ---
Demographics + + + | Address | [address] | | | [place] [address] | + + + | Home Phone [...] Team Providers + +------+ + | Care Package Worker Name | Role | Phone | + +------+ + | James Farmer MD | PCP | | + +------+ + Reason for Visit + + + | Reason | Comments | + + + | Follow-up(Procedure) | Egd 02/20/2020 | + + + | Dysphagia | [...] [place], | | | | | | [address] | [place] [address] | | | | | | Phone: | Phone: | | | | | | [phone] | [phone] | | | | | | Fax: | Fax: | | | | | | [phone] | [phone] | +--------+ + + + + + Encounter Details +--------+ + + + + | Date | Type | Department | Care Team | Description | +--------+ + + + + | 03/19/ | Virtual | [facility] [place] | Nishant Snow | Esophageal dysphagia | | 2020 | Office | GASTROENTEROLOGY | MD Tang [address] | (Primary Dx); | | | Visit | [address] | [address] [place] | Esophageal | | | | [address] | [place] [address] | dysmotility; | | | | [address] | [phone] | Candidiasis, | | | | [phone] | | esophageal (HCC) | +--------+ + [...] as of this encounter Progress Notes Nishant Snow MD - 03/19/2020 3:30 PM PDT Outpatient Gastroenterology Consult Note Date of Office Visit: 03/19/20 Referring Provider: James Farmer MD [address] [place] [address] Providing Physician: Nishant Snow MD. Chief Complaint: Follow-up(Procedure) (Egd 02/20/2020) and Dysphagia This exam was initially conducted via a secure 256-bit AES encrypted bidirectional video se ssion. Service was provided [id number] with the patient via interactive videoconferencing Video start time 335 Video end time 402 Total time (in minutes) including non [id number] time (reviewing records, documentation, etc..) 35 You have chosen to receive care through the use of telemedicine. Telemedicine enables [facility] care providers at different locations to provide safe, effective and convenient care throu gh the use of technology. As with any health care service, there are risks associated with t he use of telemedicine, including equipment failure, poor image resolution and informat and ion security issues. Do you understand the risks and benefits of telemedicine as I have explained them to you? " Yes" Have your questions regarding telemedicine been answered? "Yes" Participant is currently at {Participant's location home Do you consent to the use of telemedicine in your medical care today? Yes. Last question, I need to confirm where are you physically located right now? Answer: Patient confirms they are located in a state where INishant MD am lice nsed. History of Present Illness Cherrie Quijano is a 59 y.o. female with chronic dysphagia who is following up for the same. I met her when I performed her upper endoscopy on 02/20/2020. This revealed a mild nonobstructing stenosis at the GE J that was dilated to 18 mm without much change, the dilator was then pulled approximately through the esophagus without any of the resistance points. She did have esophageal candidiasis confirmed by brushings. She was treated with Diflucan but had no improvement in her dysphagia. The Diflucan dose was then bumped up by an ER physician and this similarly did not help at all with her dysphagia. The dilation from the procedure also did not help with her dysphagia. She also had an esophageal manometry performed on 02/05/2020 which showed that her IRP was e levated at 23 mmHg. The swallows were otherwise normal. The findings were consistent with E GJ outflow obstruction. Also her upper esophageal sphincter basal pressure was elevated. Today she tells me that her dysphagia started back in 2015 and has been progressively worse ebony. At times she will lose weight due to her dysphagia with periodic worsening, but is ab le to regain her weight. Weight is stable right now. She feels weak because she cannot eat much over the course of a day She started crying when she was talking about her diet. It is jello, protein drinks, pretty much just liquids. She has a referral in place to see Dr. Fabian in the [place] area for her dysphagia Endoscopic History EGD Impression: - Esophageal plaques were found, consistent with candidiasis. Cells for culture obtained. - Esophagogastric landmarks identified. - Esophageal mucosal changes classified as Mares's stage C2-M3 per [place] criteria. Recently biopsied. - Benign-appearing esophageal stenosis. Dilated to 18mm. Dilator pulled proximally through entire length of esophagus without additional points of resistance. There was only mild resistance at the stenosis, this stenosis is unlikely to be the source/cause for her dysphagia. Suspect that candidiasis is contributing more. - Gastroesophageal flap valve classified as Hill Grade II (fold present, opens with respiration). - Normal stomach. - Normal duodenal bulb and second portion of the duodenum. Recommendation: - The patient will be observed post-procedure, until all discharge criteria are met. - Resume regular diet. - Diflucan (fluconazole) 100 mg PO daily for 3 weeks. - Repeat upper endoscopy in 3 years for surveillance. - Return to referring physician as previously scheduled. NISHANT SNOW MD 02/20/2020 8:36:02 AM Culture Result 3+ Esme albicans No sensitivities performed. PALMER Prep No white blood cells (PMNs) seen 2+ Epithelial cells 1+ Gram positive cocci 1+ Gram positive bacilli No yeast seen Resulting Agency: [facility] Specimen Collected: 02/20/20 08:26 Review of Systems ROS A 12 point review of systems was conducted with the patient. Pertinent positives and negati ves listed per HPI Problem List Patient Active Problem List Diagnosis [...] disorder Tertiary contraction of esophagus Esophageal dysphagia Past Medical History Past Medical History: Diagnosis [...] MANOMETRY ESOPHAGEAL; Surgeon: Nishant Snow MD; Location: [facility] GI MANOMETRY 02/05/2020 UPPER GASTROINTESTINAL ENDOSCOPY N/A 11/30/2017 Procedure: EGD; Surgeon: Loi Hui MD; Location: [facility] UPPER GASTROINTESTINAL ENDOSCOPY N/A 04/05/2019 Procedure: EGD; Surgeon: Loi Hui MD; Location: [facility] UPPER GASTROINTESTINAL ENDOSCOPY N/A 09/06/2019 Procedure: EGD; Surgeon: Rodriguez Gómez MD; Location: [facility] UPPER GASTROINTESTINAL ENDOSCOPY N/A 02/20/2020 Procedure: EGD; Surgeon: Nishant Snow MD; Location: [facility] VEIN SURGERY Family History Family History Problem Relation Age of Onset Heart disease Paternal Grandmother Heart attack Paternal Grandmother High blood pressure Paternal Grandmother Diabetes Paternal Grandfather Depression Paternal Grandfather Social History Social History Socioeconomic History Marital status: Single Spouse name: Not on file Number of children: Not on file Years of education: Not on file Highest education level: Not on file Tobacco Use Smoking status: Never Smoker Smokeless tobacco: Never Used Substance and Sexual Activity Alcohol use: No Alcohol/week: 0.0 standard drinks Drug use: Never Allergies Allergies No active allergies Intolerance No active intolerances/contraindications Medications Current Outpatient [...] Itching. fluconazole (DIFLUCAN) 100 mg tablet Take 2 tablets by mouth Daily for 7 days. 14 table t 0 ibuprofen (ADVIL, MOTRIN) 200 mg tablet [...] Lab Results Component Value Date WBC 6.4 03/11/2020 HCT 34.7 03/11/2020 MCV 84.2 03/11/2020 PLT 255 03/11/2020 Imaging CLINICAL INFORMATION: Difficulty swallowing COMPARISON: 04/27/2017 and 09/22/2019 TECHNIQUE: After obtaining a scout executive image, the patient consumed effervescent crystals followed [...] Camarena MD Electronically signed: 11/16/2019 3:[address] chest FINDINGS: Lungs, Pleura and Airways: Calcified granuloma in the right upper lobe. No significant pulmonary abnormality. No airway narrowing or obstruction. No pleural effusion or pneumothorax. Mediastinum: Main pulmonary artery is dilated measuring 3.8 cm in diameter. Ectasia of the same thoracic aorta measuring 4.2 cm. No esophageal abnormality. No pericardial effusion. Lymph Nodes: No adenopathy. Upper Abdomen: No significant abnormality in the visualized upper abdomen. IMPRESSION- 1. No acute intrathoracic findings. 2. Dilated main pulmonary artery measuring up to 3.8 cm in diameter which can be seen in setting of pulmonary artery hypertension. 3. Ectasia of ascending thoracic aorta measuring 4.2 cm. A preliminary report was sent by [employer] with no significant discrepancy on 03/12/2020 2:23 AM. Dictated and Signed by: Bear Bryant MD Electronically signed: 03/12/2020 8:14 AM Assessment and Plan This is a 59-year-old woman with chronic dysphagia, likely secondary to esophageal motility disorder, found to have E GJ outflow obstruction on manometry also with an elevated resting pressure and her upper esophageal sphincter. She had a mild esophageal stricture that is u nlikely to be the cause of her dysphagia, this was located at her lower esophageal sphincter . She also had esophageal candidiasis that was treated with Diflucan yet she has no improve ment in her symptoms. I discussed that sometimes candidiasis can be resistant to Diflucan so a follow-up endoscop y can be required to confirm that it has been cured. She is somewhat reluctant to proceed w ith an upper endoscopy right now. I also discussed that Botox can help with the GJ outflow obstruction. She is worried becau se her appointment at the tertiary GI center is not until April and she worries about making it that long so she is interested in Botox. She is already on diltiazem without any improvement in her dysphagia. Discussed trying Lev sin to see if this helps. I have ordered her a prescription. I also gave her nystatin /lid ocaine/Maalox swish and swallow to see if this can help her. I instructed her to follow-up with me by my chart or phone call in 1 to 2 weeks to let me know how she is responding to th karin new medications. If no improvement then I really do think she should repeat her endosco py to make sure that the candidiasis has healed. The Botox could also be performed at that time, and I would repeat dilation of her esophagus. ICD-10-CM ICD-9-CM 1. Esophageal dysphagia R13.10 787.20 hyoscyamine (LEVSIN) 0.125 MG tablet 2. Esophageal dysmotility K22.4 530.5 Follow up: No follow-ups on file. CC: James Farmer MD [address] [place] [address] James Farmer MD[address] [facility] [place] [address] Portions of this chart may have been created with [employer] voice recognition software. Occasi onal wrong-word or [...] Dyskinesia of esophagus | + + | Candidiasis, esophageal (HCC) Candidiasis of the esophagus | + + documented in this encounter
--- OUTSIDE RECORDS SUMMARY | ~2020-05-16 | XMS | Encounter Summary ---
Demographics + + + | Address | [address] | | | [place] [address] | + + + | Home Phone | | + + + | Preferred Language | Unknown | + + + | Marital Status | Single | + + + | Amish Affiliation | 1013 | + + + | Race | Unknown | + + + | Ethnic Group | Unknown | + + + Author + + + | Author | [facility] | | | and [place] | + + + | Organization | [facility] | | | [...] Team Providers + +------+ + | Care Professor Of History Name | Role | Phone | + +------+ + | James Farmer MD | PCP | | + +------+ + Reason for Visit +---------+--------+ + | Reason | Onset | Comments | | | Date | | +---------+--------+ + | Anxiety | 09/28/ | | | | 2018 | | +---------+--------+ + Encounter Details +--------+ + + + + | Date | Type | Department | Care Team | Description | +--------+ + + + + | 09/28/ | Telephone | [facility] | James Farmer, | Anxiety | | 2018 | | MEDICINE [address] | MD Juanita FUNK | | | | | [place], | [place] | | | | | [place] [address] | [phone] | | | | | [phone] | | | +--------+ + + + [...] Telephone Encounter - Ashlie Blevins LPN - 09/28/2019 12:58 PM PSTPhoned and left voice m ail that prescription has been sentElectronically signed by Ashlie Blevins LPN at 12:58 PM PSTTelephone Encounter - Ashlie Blevins LPN - 09/28/2019 9:44 AM PSTPatient wa s last seen in office on 09/11 and medication history shows she has been prescribed Alparazo ga in the past 0.5mg at bedtime and up to twice daily and then 0.25mg the following time 3 times daily taking 1/2 tablet morning, 1/2 tab mid day and a full tablet at night. Please ad vise elephone Kerrie Joe - 09/28/2019 9:21 AM Adilson stated she has been on anxiety mediation in the past but it has been a while since she has been on it. She didn't recall the name of it but would like to see if provider would prescribe her medication again as she has been ex periencing increased anxiety lately. Pref[facility] pharmacy [facility] Rochelle haque. docukeri in thi s encounter Plan of Treatment Not on filedocumented as of this encounter Visit Diagnoses Not on filedocumented in this encounter"
--- OUTSIDE RECORDS SUMMARY | ~2020-05-16 | XMS | Encounter Summary ---
Demographics + + + | Address | [address] | | | [place] [address] | + + + | Home Phone [...] Team Providers + +------+ + | Care Reverberatory Furnace Supervisor Name | Role | Phone | + +------+ + | Katie Canchola MD | PCP | | + +------+ + Encounter Details +--------+ + + + + | Date | Type | Department | Care Team | Description | +--------+ + + + + | 08/04/ | Abstract | [place] [facility] | DATA MIGRATION CHEMA | | | 2011 | | Conversion Location | SR | | | | | [address] [facility] | | | | | | [place], [place] | | | | | | [address] | | | | | | [phone] | | | +--------+ + + + [...] + | Blood Pressure | 120/70 | 05/08/2011 12:00 AM | | | | | PDT | | + + + + + | Pulse | - | - | | + [...] + + + + | Weight | 88.5 kg (195 lb) | 05/08/2011 12:00 AM | | | | | PDT | | + + + + + | Height | 161.3 cm (5' 3.5") | 09/04/2010 12:00 AM | | | | | PDT | | + + + + + | Body Mass Index | 34 | 09/04/2010 12:00 AM | | | | | PDT | | + + + + + documented in this encounter Plan of Treatment Not on filedocumented as of this encounter Procedures + +--------+ + + + | Procedure Name | Priori | Date/Time | Associated Diagnosis | Comments | | | ty | | | | + +--------+ + + + | PAP SMEAR | Routin | 01/06/2011 | | Results for this | | | e | 12:00 AM | | procedure are in the | | | | PST | | results section. | + +--------+ + + + | NICKI SCREENING | Routin | 08/28/2008 | | Results for this | | BILATERAL | e | 12:00 AM | | procedure are in the | | | | PDT | | results section. | + +--------+ + + + documented in this encounter Results Pap Smear (01/06/2011 12:00 AM PST) + + | Specimen | + + | | + + + + + | Narrative | Performed At | + + + | | | + + + NICKI Screening Bilateral (08/28/2008 12:00 AM PDT) + + | Specimen | + + | | + + + + + | Narrative | Performed At | + + + | | | + + + documented in this encounter Visit Diagnoses Not on filedocumented in this encounter
--- OUTSIDE RECORDS SUMMARY | ~2020-05-16 | XMS | Encounter Summary ---
Demographics + + + | Address | [address] | | | [place] [address] | + + + | Home Phone [...] Team Providers + +------+ + | Care Cardiology Physician Name | Role | Phone | + +------+ + | James Farmer MD | PCP | | + +------+ + Reason for Visit + + + | Reason | Comments | + + + | Follow-up | 3 month | + + + | Gastroesophageal | with nausea getting worse | | Reflux | | + + + Encounter Details +--------+---------+ + + + | Date | Type | Department | Care Team | Description | +--------+---------+ + + + | 08/08/ | Office | [facility] | James Farmer, | Reflux esophagitis | | 2019 | Visit | MEDICINE [address] | [address] | (Primary Dx); | | | | [place], | [place] | Depression with | | | | [place] [address] | [id number] | anxiety; | | | | [phone] | | Gastroesophageal | | | | | | reflux disease, | | | | | | esophagitis presence | | | | | | not specified | +--------+---------+ + + + Social History [...] + + + | Blood Pressure | 126/64 | 08/08/2019 1:32 PM | | | | | PDT | | + + + + + | Pulse | 100 | 08/08/2019 1:32 PM | | | | | PDT | | + + + + + | Temperature | 36.2 C (97.2 F) | 08/08/2019 1:32 PM | | | | | PDT | | + + + + + | Respiratory Rate | 18 | 08/08/2019 1:32 PM | | | | | PDT | | + + + + + | Oxygen Saturation | 98% | 08/08/2019 1:32 PM | | | | | PDT | | + + + + + | Inhaled Oxygen | - | - | | | Concentration | | | | + + + + + | Weight | 87.4 kg (192 lb 10.9 | 08/08/2019 1:32 PM | | | | oz) | PDT | | + + + + + | Height | - | - | | + + + + + | Body Mass Index | 34.13 | 04/05/2019 1:54 PM | | | | | PDT | | + + + + + documented in this encounter Progress Notes James Farmer MD - 08/08/2019 1:30 PM PDTFormatting of this note might be different f rom the original. Subjective: Patient ID: Cherrie Quijano is a 58 y.o. female. Chief Complaint Patient presents with Follow-up 3 month Gastroesophageal Reflux with nausea getting worse HPI: 58-year-old female is here to follow-up she has a history of esophageal dysmotility sh e also has a history of gastroesophageal reflux with a hiatal hernia. She is been taking om eprazole 40 mg twice a day and is still getting episodes of acid reflux with esophageal spas m. We have given her some isosorbide for when she gets esophageal spasm. She has been havi ng more reflux symptoms since she lost her job. She is also been getting nauseated to the p oint where she is having trouble eating at times. Past Medical History: Diagnosis Date Depression with anxiety Dysphagia 06/16/2017 GERD (gastroesophageal reflux disease) Seizure ([facility]) Wears partial dentures upper Past Surgical History: Procedure Laterality Date UPPER GASTROINTESTINAL ENDOSCOPY N/A 11/30/2017 Procedure: EGD; Surgeon: Loi Hui MD; Location: [facility] UPPER GASTROINTESTINAL ENDOSCOPY N/A 04/05/2019 Procedure: EGD; Surgeon: Loi Hui MD; Location: [facility] VEIN SURGERY Patient Active Problem List Diagnosis Date Noted POA GERD (gastroesophageal reflux disease) 11/30/2017 Unknown Priority: Medium Chronic bilateral low back pain without sciatica 06/02/2019 Unknown Impaired functional mobility, balance, gait, and endurance 06/02/2019 Unknown Gait instability 06/02/2019 Unknown Pharyngoesophageal dysphagia 04/04/2019 Unknown Obesity (BMI 30-39.9) 04/04/2019 Unknown Benzodiazepine dependence 11/25/2017 Unknown Esophageal [...] Unknown FH STROKE Unknown Current Outpatient Medications: 5-Hydroxytryptophan (5-HTP PO), Take 1 capsule by mouth nightly., Disp: , Rfl: acetaminophen (TYLENOL) 325 mg tablet, Take 650 mg by mouth every 4 hours as needed fo r Pain., Disp: , Rfl: ascorbic acid (VITAMIN C) 500 mg chewable tablet, Take 500 mg by mouth Daily., Disp: , Rfl: bismuth subsalicylate (PEPTO BISMOL) 262 mg chewable tablet, Take 524 mg by mouth Raven y as needed., Disp: , Rfl: Black Cohosh 540 MG CAPS, Take 1 capsule by mouth Daily., Disp: , Rfl: Cyanocobalamin (B-12 PO), Take 1 tablet by mouth Daily., Disp: , Rfl: diphenhydrAMINE (BENADRYL) 25 mg tablet, Take 25 mg by mouth nightly as needed for Itc luis., Disp: , Rfl: ECHINACEA PO, Take 1 capsule by mouth Daily., Disp: , Rfl: Ginkgo Biloba (GINKOBA PO), Take 1 capsule by mouth Daily., Disp: , Rfl: isosorbide dinitrate (ISORDIL) 10 mg tablet, TAKE ONE TABLET BY MOUTH THREE TIMES RAVEN Y, Disp: 90 tablet, Rfl: 3 Multiple Vitamin (MULTI-VITAMIN PO), Take 1 tablet by mouth Daily., Disp: , Rfl: omeprazole (PRILOSEC) 40 MG capsule, Take 1 capsule by mouth 2 times daily (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, Disp: 120 capsule, Rfl: 2 pantoprazole (PROTONIX) 40 mg tablet, Take 1 tablet by mouth every morning (before melo akfast)., Disp: 30 tablet, Rfl: 4 [place] PO, Take 1 capsule by mouth 3 times daily., Disp: , Rfl: sucralfate (CARAFATE) 1 g tablet, Take 1 tablet by mouth 4 times daily., Disp: 120 tab let, Rfl: 4 UNABLE TO FIND, Take 1-2 capsules by mouth Daily. Focus Factor, Disp: , Rfl: Allergies No active allergies Intolerance No active intolerances/contraindications Review of Systems Constitutional: Negative. HENT: Negative. Eyes: Negative. Respiratory: Negative. Cardiovascular: Negative. Gastrointestinal: Positive for abdominal pain, heartburn and nausea. Genitourinary: Negative. Musculoskeletal: Negative. Skin: Negative. Neurological: Negative. Endo/Heme/Allergies: Negative. Psychiatric/Behavioral: The patient is nervous/anxious. Objective: BP 126/64 | Pulse 100 | Temp 36.2 C (97.2 F) (Temporal) | Resp 18 | Wt 87.4 kg (192 lb 10.9 oz) | LMP (LMP Unknown) | SpO2 98% | ? No | BMI 34.13 kg/m Physical Exam General survey shows no [...] rashes or skin lesions seen. Psychiatric: She appears mildly anxious Assessment/Plan: Cherrie was seen today for follow-up and gastroesophageal reflux. Diagnoses and all orders for this visit: Reflux esophagitis Depression with anxiety Gastroesophageal reflux disease, esophagitis presence not specified Other orders - pantoprazole (PROTONIX) 40 mg tablet; Take 1 tablet by mouth every morning (before br eakfast). - sucralfate (CARAFATE) 1 g tablet; Take 1 tablet by mouth 4 times daily. 1. I am going to have her stop her omeprazole. We will start her on pantoprazole. We bhavna l have her take this once a day 2. I am also can add Carafate 1 g 4 times a day. She should notice some change within the next 2 or 3 days. 3. If she is not improving she should follow-up with me she may need antianxiety medicine. No follow-ups on file. documented in this encounter Plan of Treatment Not on filedocumented as of this encounter Visit Diagnoses + + | Diagnosis | + + | Reflux esophagitis - Primary | + + | Depression with anxiety Dysthymic disorder | + + | Gastroesophageal reflux disease, esophagitis presence not specified | + + documented in this encounter"
--- OUTSIDE RECORDS SUMMARY | ~2020-05-16 | XMS | Encounter Summary ---
Demographics + + + | Address | [address] | | | [place] [address] | + + + | Home Phone | | + + + | Preferred Language | Unknown | + + + | Marital Status | Single | + + + | Anabaptist Affiliation | [id number] | + + + | Race | Unknown | + + + | Ethnic Group | Unknown | + + + Author + + + | Author | [facility] | | | and [place] | + + + | Organization | [facility] | | [...] Team Providers + +------+ + | Care Four Slide Machine Operator Name | Role | Phone | + +------+ + | James Farmer MD | PCP | | + +------+ + Reason for Visit + + + | Reason | Comments | + + + | Shortness of Breath | Room 8: SOB, shallow breathing over a week, had endoscopy done in | | | january and hasn't gotten better. Has only been able to eat | | | pudding and jello; pt doesn't want to be tested | + + + Encounter Details +--------+ + + + + | Date | Type | Department | Care Team | Description | +--------+ + + + + | 04/26/ | Clinical | [facility] | Josh Hedrick | Dysphasia (Primary | | 2020 | Support | CARE [address] | [address] | Dx) | | | | [place] | [address] [place] | | | | | [address] | [place] [address] | | | | | [phone] | [phone] | | | | | | | [...] + + + | Blood Pressure | 114/54 | 03/17/2020 12:38 PM | | | | | PDT | | + + + + + | Pulse | 82 | 03/17/2020 12:38 PM | | | | | PDT | | + + + + + | Temperature | 37.1 C (98.7 F) | 03/17/2020 12:38 PM | | | | | PDT | | + + + + + | Respiratory Rate | 16 | 03/17/2020 12:38 PM | | | | | PDT | | + + + + + | Oxygen Saturation | 97% | 03/17/2020 12:38 PM | | | | | PDT [...] in this encounter Patient Instructions Patient Instructions Josh Hedrick ARNP - 03/17/2020 12:30 PM PDTYour needs are beyond the scope of the urgent care You need to contact your GI doctor for further follow-up, keep that appointment with him on Wednesday If you are unable to swallow, difficulty breathing you need to go to the emergency departme nt documented in this encounter Progress Notes Josh Hedrick ARNP - 03/17/2020 12:30 PM PDTFormatting of this note might be di fferent from the original. Subjective: Cherrie is a 59 y.o. female who comes in complaining of Shortness of Breath (Room 8: SOB, paulo llow breathing over a week, had endoscopy done in january and hasn't gotten better. Has only b een able to eat pudding and jello; pt doesn't want to be tested) . HPI HPI Patient presents to the urgent care this afternoon with a complaint of feeling as if she ca nnot swallow food. She states that she has esophageal strictures and has a follow-up with h er GI doctor in 2 days. She is stating that she is having difficulty with even liquids as s he feels it gets stuck. She stated that she feels like when it does get stuck she feels erika rt of breath. She says that the symptoms seem to be worse at night. Patient is denying any fevers, chills, upper respiratory infection symptoms, chest pain, GI symptoms. Patient rep orts that she had endoscopy done on 02/20/2020. Patient's medications, allergies, past medical, surgical, social and family histories were reviewed and updated as appropriate. Review of Systems Constitutional: Negative for chills and fever. HENT: Positive for sore throat (Esophagus). Respiratory: Positive for shortness of breath. Skin: Negative for rash. All other systems reviewed and are negative. Objective: BP 114/54 | Pulse 82 | Temp 37.1 C (98.7 F) (Oral) | Resp 16 | LMP (LMP Unknown) | SpO2 97% Physical Exam Vitals signs and nursing note reviewed. Constitutional: General: She is not in acute distress. Appearance: Normal appearance. She is not ill-appearing or toxic-appearing. HENT: Head: Normocephalic. Neck: Musculoskeletal: Normal range of motion. Cardiovascular: Rate and Rhythm: Normal rate. Pulmonary: Effort: Pulmonary effort is normal. No respiratory distress. Breath sounds: Normal breath sounds. No stridor. No wheezing, rhonchi or rales. Comments: Patient speaking in full sentences, no accessory muscle use noted. Musculoskeletal: Normal range of motion. Skin: General: Skin is warm and dry. Capillary Refill: Capillary refill takes less than 2 seconds. Neurological: General: No focal deficit present. Mental Status: She is alert. Gait: Gait abnormal (Patient has shortened gait, she uses a walking stick to get around, this is normal.). No results found for this or any previous visit (from the past 24 hour(s)). Assessment and Plans: 1. Dysphasia I explained to the patient that difficulty swallowing with possible esophageal strictures, needing a new endoscopy is beyond the scope of the urgent care. I advised her that she shosamantha bourne keep that appointment with her GI doctor on 03/19/2020. Advised her that if her symptoms are getting to the point where she is extremely short of breath, vomiting then she should go to the emergency department for evaluation and have the ability to have a GI doctor come in to see her there. Patient verbalized understanding of these instructions Return if symptoms worsen or fail to improve. Electronically signed by KELLY Aguilar at DATE/TIME: 03/17/2020 1:27 PM This note was dictated using [employer] voice recognition software. Occasional wrong- word or s ound-alike substitutions may have occurred due to the inherent limitations of voice recognit ion software. Please read the chart carefully and recognize, using context, where these subs titutions have occurred. Electronically signed by KELLY Steward at 0 1:27 PM Meryl Park RN - 03/17/2020 12:30 PM PDT [facility] [place] Intake Form Affix Patient Label [] Photo ID Verified Patient Name:Cherrie Quijano Provider:[facility] NURSE :1960 Date:03/17/20 MyChart: Activated Vitals: LMP (LMP Unknown) RN History/Symptom Review (if available, RN to review patient chart): If any of these are true, patient must see provider in . [] Diabetes Mellitus [] COPD [] Current Cancer Treatment [] Immunosuppression [] Chronic Kidney Disease [] Suspected Strep Throat [] Congestive Heart Failure [] Liver Disease [] Chronic Steroid Use [] Additional Evaluation Notes: SOB, shallow breathing Testing Protocol: Proceed to testing if ANY of the following conditions are present: [] History of possible COVID-19 exposure PLUS any of the following: [] History of fever [] Current fever >/= 100.4 F [] Any URI symptoms (cough, sore throat, runny nose, etc.) [] Current cough <10 days duration [] History of fever or temperature >/= 100.4 F AND any URI symptoms Asymptomatic patients will NOT be screened regardless of exposure history. If dominant sore throat without cough, send to Urgent Care for provider evaluation and swab for strep (not provided at [facility]). Based on my assessment of both epidemiological and clinical factors, this patient [] IS /[ x] IS NOT a person under investigation (PUI) for COVID-19. Any persons tested for COVID-19 are considered a PUI. Triage: Patient triaged to see provider in Urgent Care [x] Yes [] No Discharge: [] Social Distancing/Quarantine Guidelines [] Upper Respiratory Infection Self Care Instructions [] Work Letter Does not meet criteria for testing. Denies all symptoms except reports SOB and shallow surya thing for 2 weeks. Recommend patient be evaluated by Provider. Meryl Yan RN Debra Segura, Hub Lead - 03/17/2020 12:[address] [facility] COVID-19 Fast [facility] Intake Form Affix Patient Label [] Photo ID Verified Patient Name:Cherrie Quijano [place] [place] [facility] :1960 Date:03/17/20 [] If <15 or >70 years of age, MUST be seen in clinic [x] Intention to see provider [] [facility] Activated Vitals: LMP (LMP Unknown) Symptom Screen: How many days have you been experiencing symptoms? 14 days [] Cough: duration of cough? days ? If symptoms or cough >10 days, send to for provider evaluation [] Fever >100.4 [x] Runny Nose [] Sore Throat [] Body Aches [] Exposure to a person with confirmed COVID-19 If yes, details: [] Chest Pain, warm hand transfer to RN inside (Room 1 for triage) [] Abdominal Pain [] Nausea [] Vomiting [x] Diarrhea [] Change in Sense of Smell and/or Taste [] Where do you work? [] What day did you last work? 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
--- OUTSIDE RECORDS SUMMARY | ~2020-05-16 | XMS | Encounter Summary ---
Demographics + + + | Address | [address] | | | [place] [address] | + + + | Home Phone [...] Team Providers + +------+ + | Care Flow Specialist Name | Role | Phone | [...] Description | +--------+--------+ + + + | 08/28/ | Refill | [facility] | James Farmer, | Medication Refill | | 2019 | | MEDICINE [address] | [place] [address] [facility] | | | | | [place], | [place] | | | | | [place] [address] | [id number] | | | | | [phone] | | | +--------+--------+ + + + [...]
--- OUTSIDE RECORDS SUMMARY | ~2020-05-16 | XMS | Encounter Summary ---
Demographics + + + | Address | [address] | | | [place] [address] | + + + | Home Phone [...] Providers + +------+ + | Care Senior Data Warehouse Architect Name | Role | Phone | + +------+ + | James Farmer MD | PCP | | + +------+ + Reason for Visit + + + | Reason | Comments | + + + | Initial Assessment | | + + + Evaluate & Treat (Routine) + [...] n | | James Dennis MD | Fan | | | Required | | Oropharyngea | [address] | Therapy [address] | | | | | l dysphagia | [address] [place] [address] | | | | | Procedures | [place], [place] | [place], | | | | | [birth year] | [address] | [place] [address] | | | | | PENDING MODA | Phone: | Phone: | | | | | | [phone] | [phone] | | | | | | Fax: | Fax: | | | | | | [phone] | [phone] | + + + + + + + Encounter Details +--------+---------+ + + + | Date | Type | Department | Care Team | Description | +--------+---------+ + + + | 04/29/ | Office | [facility] | Luz Serrano, | Oropharyngeal | | 2020 | Visit | [facility] | Speech Pathologist | dysphagia (Primary | | | | [address] | [address] | Dx) | | | | [place] | [place] | | | | | [address] | [address] | | | | | [phone] | | | | | | | Hans Denise, | | | | | | Aide | | +--------+---------+ + + + Social [...] documented as of this encounter Progress Notes Luz Serrano, Speech Pathologist - 04/29/2020 8:45 AM PDT Speech Therapy Plan of Care Date: 04/29/2020 Patient Name: Cherrie Quijano Date of : 1960 Encounter Diagnoses Code Name Primary? R13.12 Oropharyngeal dysphagia Yes Date of Onset: 03/29/2020 Start of Care Date: 04/29/2020 Requested # of Visits: 12 visits 1x/every other week for 3 months Certification From: 04/29/2020 Certification To: 07/30/2020 Clinical Impressions: Cherrie came with her SO to her speech therapy evaluation. She prese nts with oropharyngeal dysphagia. Her past medical history also involves GERD, dysphagia, B arrett's Esophagus, hiatal hernia, anxiety, etc. She stated that she is currently consuming liquids: broth, very watered down smoothies, etc. She reported that she is unable to consum e health shakes. She said they upset her stomach. She reported that she has lost a signific ant amount of weight in the past 6months due to not being able to eat regular foods and not getting enough calories in her diet. Cherrie reported that she had a EGD and esophageal dilat ion and botox last month. She stated that her swallowing has gotten worse since then. A swallow evaluation was completed. Cherrie was challenged with thin liquids, and pureed, gr ound and chopped textures. She was allowed to use a liquid wash as needed. She needed max e ncouragement and reassurance to consume the food textures. She had a frequent burp when swa llowing, but no emesis. No overt s/s of airway compromise noted, however pt reported that i t felt like some food items were possibly getting stuck in her throat or she was experiencin g a slowed motility in the oropharynx. Cherrie was provided education regarding the swallowing mechanism, a hand-out to help control GERD, base of the tongue exercises, and a list of strategies/techniques to improve her swal lowing ability. Sit upright to eat, use a chin tuck, small bites/sips, effortful swallow, a lternate liquids and solids, control rate and amount and use double/multiple swallows. Diap hragmatic breathing was introduced and practiced to help reduce anxiety and improve the surya thing cycle. RECOMMENDED DIET: Chopped diet. (IDDSI level 5, minced and moist). Thin liqu ids (IDDSI level 0). She stated that she doesn't think she can consume those food items unl ess her SO other is at home due to her anxiety. An order for a Fibroendoscopic Evaluation o f Swallow (FEES) study is requested. Standardized Tests: Eating Assessment Tool (EAT 10) Score: 27 EAT-10: To what extend do you experience the following problems? (0 no problem-4 severe problem) 1. My swallowing problem has caused me to lose weight. 4 2. My swallowing problem interferes with my ability to go out for meals. 4 3. Swallowing liquids takes extra effort. 2 4. Swallowing solids takes extra effort. 4 5. Swallowing pills takes extra effort. 4 6. Swallowing is painful. 0 7. The pleasure of eating is affected by my swallowing. 3 8. When I swallow food sticks in my throat. 2 9. I cough when I eat. 0 10. Swallowing is stressful. 4 Functional Oral Intake Scale Total Oral Intake : Total oral intake of multiple consistencies requiring special preparati on Goals: Outcome Specific Scored Goals Eating Assessment Tool (EAT 10) Goal: Cherrie will be able to consume a IDDSI level 5 diet, m inced and moist (formerly chopped) with no overt s/s of airway compromise. Eating Assessment Tool (EAT 10) Goal Status: New. Treatment Plan/Interventions 20467 - Treatment of Swallowing [id number] - Swallow Evaluation Electronically signed by: Luz Serrano Speech Pathologist, 04/29/2020 3:12 PM Patient Name: Cherrie Quijano/: 1960/ Luz Irizarry [facility] Pathologist - 04/29/2020 8:45 AM PDTFormatting of this note might be different from t he original. [facility] [address] [place] [id number] Speech Therapy Initial Assessment Date: 04/29/2020 Patient Information Patient Name: Cherrie Quijano Date of : 1960 Age: 59 y.o. History Problem Oropharyngeal Dysphagia Added automatically from request for surgery [id number] Mechanism of injury: No specific cause History of symptoms: Pt has a recorded 2 year hx of dysphagia. She stated that her swallow ing is worse since she got botox last month. Previous level of function and limitations: Pt has a recorded 2 year hx of dysphagia. Work status:not working. Living situation: Lives with her SO. Social History Socioeconomic History Marital status: Single Spouse name: Not on file Number of children: Not on file Years of education: Not on file Highest education level: Not on file Tobacco Use Smoking status: Never Smoker Smokeless tobacco: Never Used Substance and Sexual Activity Alcohol use: No Alcohol/week: 0.0 standard drinks Drug use: Never Encounter Diagnoses Code Name Primary? R13.12 Oropharyngeal dysphagia Yes Date of Onset: 03/29/2020 Referring Provider: James Farmer MD No history [...] MANOMETRY ESOPHAGEAL; Surgeon: Nishant Arceo MD; Location: [facility] GI MANOMETRY 02/05/2020 UPPER GASTROINTESTINAL ENDOSCOPY N/A 11/30/2017 Procedure: EGD; Surgeon: Loi Hui MD; Location: [facility] UPPER GASTROINTESTINAL ENDOSCOPY N/A 04/05/2019 Procedure: EGD; Surgeon: Loi Hui MD; Location: [facility] UPPER GASTROINTESTINAL ENDOSCOPY N/A 09/06/2019 Procedure: EGD; Surgeon: Rodriguez Gómez MD; Location: [facility] UPPER GASTROINTESTINAL ENDOSCOPY N/A 02/20/2020 Procedure: EGD; Surgeon: Nishant Arceo MD; Location: [facility] UPPER GASTROINTESTINAL ENDOSCOPY N/A 04/01/2020 Procedure: EGD W/ DILATATION- Botox; Surgeon: Nishant Arceo MD; [facility] VEIN [facility] Family History Problem Relation Age of Onset Heart disease Paternal Grandmother Heart attack Paternal Grandmother High blood pressure Paternal Grandmother Diabetes Paternal Grandfather Depression Paternal Grandfather Sleep apnea Other family history Colon cancer Neg Hx Colon polyps Neg Hx Irritable bowel syndrome Neg Hx Endometrial cancer Neg Hx Ovarian cancer Neg Hx Pancreatic Cancer Neg Hx Brain cancer Neg Hx Developmental History Allergies Allergen Reactions Imipramine Hallucination Levsin [Hyoscyamine] Swelling Prior Treatment: None within the last sixty days Rehab Precautions Fluoroscopy Exam from 09/22/2019 in [facility] Rehab Precautions Precautions None Learning Style Patient's Optimum Learning Style: (Pt stated that she isn't sure how she learns the best.) Abuse Assessment Do you feel safe in your current relationship or home?: Yes Pain Assessment: Pain Scale Used: NUMERIC Pain Rating Pre Assessment: 8 Location: headache Pain/Comfort Presence Of Pain: complains of pain/discomfort Subjective: History of Presenting Problem: Cherrie is a 59 y.o. female who presents to the [facility] due to oropharyngeal dysphagia. Functional Limitations: Is only consuming liquids at this time. Pt reports that she is bishnu ble to consume solid foods. Precaution/special problems: Hx of dysphagia, GERD, esophageal dilation. Patient s Goals: Would like to be able to eat solid foods. Objective: Oral Motor Evaluation: Dry oral structure. Missing molars on the lower right quadrant. Up per partial present. Tongue and lips movements within functional limits. Bedside Swallow Evaluation: Textures Trialed: pureed, ground, chopped. Thin liquids. Oral Prep Stage: No difficulty noted. Pt was able to chew the food appropriately. Oral Stage: No difficulty noted moving the bolus from anterior to posterior in the oral ca vity, however pt had max anxiety during this process and stated numerous times that she didn 't think she could swallow it. Pharyngeal Stage: Pt was able to swallow each food texture with a liquid wash, however she used a burp after each swallow. Esophageal Concerns: Pt has a hx of slowed motility. Signs and symptoms of penetration/aspiration: None noted. Successful Strategies Trialed: Pt was shown how to use a chin tuck. Strengthening Exercises: Olga, gauze, effortful swallow, yawn, gargle, tongue protrusion /retraction. Standardized Tests: Eating Assessment Tool (EAT 10) Score: 27 EAT-10: To what extend do you experience the following problems? (0 no problem-4 severe problem) 1. My swallowing problem has caused me to lose weight. 4 2. My swallowing problem interferes with my ability to go out for meals. 4 3. Swallowing liquids takes extra effort. 2 4. Swallowing solids takes extra effort. 4 5. Swallowing pills takes extra effort. 4 6. Swallowing is painful. 0 7. The pleasure of eating is affected by my swallowing. 3 8. When I swallow food sticks in my throat. 2 9. I cough when I eat. 0 10. Swallowing is stressful. 4 Functional Oral Intake Scale Total Oral Intake : Total oral intake of multiple consistencies requiring special preparati on Assessment Cherrie came with her SO to her speech therapy evaluation. She presents with oropharyngeal dysphagia. Her past medical history also involves GERD, dysphagia, Mares's Esophagus, hi atal hernia, anxiety, etc. She stated that she is currently consuming liquids: broth, very w atered down smoothies, etc. She reported that she is unable to consume health shakes. She said they upset her stomach. She reported that she has lost a significant amount of weight i n the past 6months due to not being able to eat regular foods and not getting enough calorie s in her diet. Cherrie reported that she had a EGD and esophageal dilation and botox last wed. She stated that her swallowing has gotten worse since then. A swallow evaluation was completed. Cherrie was challenged with thin liquids, and pureed, gr ound and chopped textures. She was allowed to use a liquid wash as needed. She needed max e ncouragement and reassurance to consume the food textures. She had a frequent burp when swa llowing, but no emesis. No overt s/s of airway compromise noted, however pt reported that i t felt like some food items were possibly getting stuck in her throat or she was experiencin g a slowed motility in the oropharynx. Cherrie was provided education regarding the swallowing mechanism, a hand-out to help control GERD, base of the tongue exercises, and a list of strategies/techniques to improve her swal lowing ability. Sit upright to eat, use a chin tuck, small bites/sips, effortful swallow, a lternate liquids and solids, control rate and amount and use double/multiple swallows. Diap hragmatic breathing was introduced and practiced to help reduce anxiety and improve the surya thing cycle. RECOMMENDED DIET: Chopped diet. (IDDSI level 5, minced and moist). Thin liqu ids (IDDSI level 0). She stated that she doesn't think she can consume those food items unl ess her SO other is at home due to her anxiety. An order for a Fibroendoscopic Evaluation o f Swallow (FEES) study is requested. Rehabilitation potential: Patient demonstrates good potential to achieve established goals to address the documented impairments by participating in skilled speech and language therap y services. Goals: Outcome Specific Scored Goals Eating Assessment Tool (EAT 10) Goal: Cherrie will be able to consume a IDDSI level 5 diet, m inced and moist (formerly chopped) with no overt s/s of airway compromise. Eating Assessment Tool (EAT 10) Goal Status: New. Plan Date of Onset: 03/29/2020 Start of Care Date: 04/29/2020 Requested # of Visits: 12 visits 1x/every other week for 3 months Certification From: 04/29/2020 Certification To: 07/30/2020 Treatment Plan/Interventions 63091 - Treatment of Swallowing [id number] - Swallow Evaluation Patient and/or family has indicated understanding of treatment needs and actively participa yossi in the creation of this plan for care. Patient/Caregiver Education Learner: Patient Readiness: Acceptance Method: Explanation, Handout Response: Verbalizes Understanding Add Another User?: yes Learner: Significant Readiness: Eager Method: Explanation, Handout Response: Verbalizes Understanding Today's Treatment Start Time: 08 Stop time: 1015 Duration: 90 minutes Timed Treatment Codes: 0 minutes # of Speech Visits to Date: 1 Objective: Swallow evaluation and education. Next Visit: FEES study Electronically signed by: Luz Serrano Speech Pathologist, 04/29/2020 3:12 PM Patient Name: Cherrie Quijano/: 1960/ ly signed by Luz Serrano Speech Pathologist at 04/29/2020 3:14 PM PDTdocumented in thi s encounter Plan of Treatment Not on filedocumented as of this encounter Visit Diagnoses + + | Diagnosis | + + | Oropharyngeal dysphagia - Primary Dysphagia, oropharyngeal phase | + + documented in this encounter"
--- OUTSIDE RECORDS SUMMARY | ~2020-05-16 | XMS | Encounter Summary ---
Demographics + + + | Address | [address] | | | [place] [address] | + + + | Home Phone [...] Team Providers + +------+ + | Care Miter Grinder Operator Name | Role | Phone | + +------+ + | James Farmer MD | PCP | | + +------+ + Reason for Visit +--------+ + | Reason | Comments | +--------+ + | Emesis | rm 7/ emesis due to acid reflux, after eating vomits x 3wk | +--------+ + Encounter Details +--------+---------+ + + + | Date | Type | Department | Care Team | Description | +--------+---------+ + + + | 08/31/ | Office | [facility] | Suleiman Souaz MD | Esophagitis (Primary | | 2019 | Visit | CARE [address] | [address] | Dx) | | | | [place] | [place] | | | | | [address] | [address] | | | | | [phone] | | | +--------+---------+ + + + [...] + + + | Blood Pressure | 118/56 | 08/31/2019 8:43 AM | | | | | PDT | | + + + + + | Pulse | 90 | 08/31/2019 8:43 AM | | | | | PDT | | + + + + + | Temperature | 37.2 C (98.9 F) | 08/31/2019 8:43 AM | | | | | PDT | | + + + + + | Respiratory Rate | 16 | 08/31/2019 8:43 AM | | | | | PDT | | + + + + + | Oxygen Saturation | 98% | 08/31/2019 8:43 AM | | | | | PDT | | + + + + + | Inhaled Oxygen | - | - | | | Concentration | | | | + + + + + | Weight | 87.4 kg (192 lb 10.9 | 08/31/2019 8:43 AM | | | | oz) | PDT | | + + + + + | Height | 160 cm (5' 3") | 08/31/2019 8:43 AM | | | | | PDT | | + + + + + | Body Mass Index | 34.13 | 08/31/2019 8:43 AM | | | | | PDT | | + + + + + documented in this encounter Patient Instructions Patient Instructions Suleiman Souza MD - 08/31/2019 8:45 AM PDTFormatting of this note mi macit be different from the original. Esophagitis With esophagitis, the lining of the esophagus is inflamed. Do you often have burning pain in your chest? You may have esophagitis. This is when the li ebony of the esophagus becomes red and swollen (inflamed).The esophagus is the tube that co nnects your throat to your stomach. This sheet tells you more about esophagitis. It also exp lains your treatment options. Main types of esophagitis Reflux esophagitis.This is the more common type.It is caused byGERD (gastroesophageal reflux disease). Stomach contents with stomach acid flow back up into the esophagus. This h appens over and over. It leads toinflammation.Risk factors caninclude: Being overweight Asthma Smoking Frequent vomiting Certain medicines (such as aspirin and other anti-inflammatories) Hiatal hernia Infectious esophagitis.This is caused by an infection. You are more at risk for this if y ou have a weakened immune system and poor nutrition. Antibiotic use can also be a factor. Th e infection is often due to the following: A type of fungus (typically svitlana) A virus, such as herpes simplex virus 1 (HSV-1) or cytomegalovirus (CMV) Eosinophilic esophagitis. Foods or other things around you can give you an allergic reactio n. This triggers an immune response and leads to esophagitis. Pill-induced esophagitis. Certain types of medicines can cause inflammation and ulcers in t he esophagus. These include doxycycline, aspirin, NSAIDs, alendronate, potassium, quinidine, iron. Symptoms of esophagitis The following symptoms can occur with esophagitis: Pain when swallowing, or trouble swallowing Pain behind your breastbone (heartburn) Acid regurgitation Chronic sore throat Gum Inflammation Cavities Bad breath Nausea Pain in your upper belly (abdomen) Bleeding (indicated by bright red vomit or black, tarry stool) These symptoms occur more often with reflux esophagitis: Coughing, wheezing, or asthma Hoarseness Diagnosis of esophagitis Your healthcare provider will ask about your health history and symptoms. You ll also be examined. Sometimes certain tests are needed. These may include: Upper endoscopy.A thin, flexible tube with a tiny light and camera is used. It is inse rted through the mouth down into the esophagus. This lets the provider look for damage. A sm all sample of tissue (biopsy) may also be removed. The sample is sent to a lab for testing. Upper GI X-ray with barium.An X-ray is done after you drink a substance called barium. Barium maymake problems in the esophagus easier to see on an x-ray. Esophageal pH.A soft, thin tube is passed into the esophagus through the nose or mouth for 24 hours. It measures the acid level in the esophagus. Esophageal manometry. A soft, thin tube is passed into the esophagus through the nose or mouth. It measures muscle contractions in the esophagus. Treatment of esophagitis Medicines. Different medicines can help treatesophagitis. The medicine used will depend o n the type of esophagitis you have. Talk with your healthcare provider. Lifestyle changes. Making the following changes can help reduce irritation and ease your sy mptoms: Avoid spicy foods (pepper, chili powder, roldan). Also avoid hard foods (nuts, crackers, raw vegetables) and acidic foods and drinks (tomatoes, citrus fruits and juices). Other prob jim foods includechocolate, peppermint, nutmeg, and foods high in fat. Until you can swallow without pain, follow a combined liquid and soft diet. Try foods aquino ch as cooked cereals, mashed potatoes, and soups. Take small bites and chew your food thoroughly. Avoid large meals and heavy evening meals. Don't lie down within 2 to 3 hours of eating. Get to or stay at a healthy weight. Avoid alcohol, caffeine, and smoking or tobacco products. [place] and floss your teeth Raise your upper body by 4 to 6 inches when lying in bed. This can be done using a foam wedge. Or put blocks under the legs at the head of your bed. Surgery. This may be needed for severe reflux esophagitis.Other noninvasive procedures to treat GERD and esophagitis are being studied.Your provider can tell you more. Why treatment Is important Without treatment, esophagitis can get worse. This is especially true with severe reflux es ophagitis. For instance, continued symptoms can cause scarring of the esophagus. Over time, this can cause a narrowing the esophagus (stricture). This can make it hard to pass food kirk n to the stomach. As symptoms go on they can also cause changes in the lining of the esophag us. These changes can put you at a slightly higher risk of cancer of the esophagus. Date Last Reviewed: 05/22/201619993722-8805 [facility]. [address] [place], [place] [address] [address]. All [facility] ts reserved. This information is not intended as a substitute for professional medical care. Always follow your healthcare professional's instructions. documented in this encounter Progress Notes Suleiman Souza MD - 08/31/2019 8:45 AM PDT Subjective: Patient ID: Cherrie Quijano is a 58 y.o. female. Patient has past history of esophagit is, GERD. She has had endoscopy on 2 previous occasions, at least one of which showed esoph agitis, and a dilation was done which seem to help her. Historically, she had another upper endoscopy done in March 2019 which did not require dilatation. She has been taking pantopraz ole regularly for the past several weeks, although she did have a time without it earlier in the summer. In the past 2 weeks her sense is that her feedings are sticking high in her th roat, and she is vomiting up undigested food within an hour or so after eating. No blood. She is trying to stick to soft foods or liquids, but having difficulty getting them to go do wn and stay down. She believes she may have lost about 10 pounds in the last couple of week s. HPI Patient's medications, allergies, past medical, surgical, social and family histories were obtained and reviewed as appropriate. Review of Systems neither constipated nor diarrhea. She doesn't seem to have a lot of abd ominal pain. Objective: BP 118/56 | Pulse 90 | Temp 37.2 C (98.9 F) (Temporal) | Resp 16 | Ht 1.6 m (5' 3") | Wt 87.4 kg (192 lb 10.9 oz) | LMP (LMP Unknown) | SpO2 98% | BMI 34.13 kg/m Physical Exam Constitutional: She appears well-developed and well-nourished. No distress. Neck: No tracheal deviation present. No masses palpable in the neck. Cardiovascular: Cardiac rhythm is regular, and rate is within normal limits. Heart sounds are of good qual ity. No murmur or gallop heard. Pulmonary/Chest: "."No respiratory distress. Respiratory effort is normal. Clear breath sounds heard throu ghout all lung briseno. Abdominal: Soft. Bowel sounds are normal. She exhibits no distension and no mass. There is no tenderness. There is no rebound and no guarding. 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 I was unable to contact her PCP today. Thus I put in an urgent referr al to gastroenterology for reassessment of her situation. No med changes. documented in this enc ounter Plan of Treatment Not on filedocumented as of this encounter Visit Diagnoses + + | Diagnosis | + + | Esophagitis - Primary Esophagitis, unspecified | + + documented in this encounter
--- OUTSIDE RECORDS SUMMARY | ~2020-05-16 | XMS | Encounter Summary ---
Demographics + + + | Address | [address] | | | [place] [address] | + + + | Home Phone [...] Team Providers + +------+ + | Care Hatch Boss Name | Role | Phone | + +------+ + | James Farmer MD | PCP | | + +------+ + Reason for Visit + +--------+ + | Reason | Onset | Comments | | | Date | | + +--------+ + | Pre-Procedure | 03/25/ | questions | | | 2020 | | + +--------+ + Encounter Details +--------+ + + + + | Date | Type | Department | Care Team | Description | +--------+ + + + + | 03/25/ | Telephone | [facility] | Nishant Arceo | Pre-Procedure | | 2019 | | GASTROENTEROLOGY | MD Tang [address] | (questions) | | | | [address] [facility] | [address] | | | | | [address] | [place] [address] | | | | | [address] | [phone] | | | | | [phone] | | | +--------+ + + + [...] Encounter - Berna Esqueda RN - 03/25/2020 10:38 AM PDTPatient called in a sking why she needed to have procedure on Sunday 04/01 if she has referral to [facility]? 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 She will call the [facility] back to discuss eval visit. She was confused about her upcoming EGD with Dr. Arceo; reviewed with her she was the one w ho was anxious to have this procedure due to her candidiasis; reminded her of the OV she rec ently had with Dr. Arceo and the discussions we have had about the lack of food she has been able to eat; she had voiced she was tired of pudding. She recalled this and stated she wou ld keep the appointments and we reviewed the need for COVID-19 testing on Wednesday. She verba lized understanding what she needed to do. Pt scheduled on Wednesday04/01/2020 at 0900 for egd/ w/botox. documented in this encounter Plan of Treatment Not on filedocumented as of this encounter Visit Diagnoses Not on filedocumented in this encounter"
--- OUTSIDE RECORDS SUMMARY | ~2020-05-16 | XMS | Encounter Summary ---
Demographics + + + | Address | [address] | | | [place] [address] | + + + | Home Phone [...] Team Providers + +------+ + | Care Circuits Engineer Name | Role | Phone | + +------+ + | James Farmer MD | PCP | | + +------+ + Reason for Visit + +--------+ + | Reason | Onset | Comments | | | Date | | + +--------+ + | Medication Question | 04/16/ | | | | 2019 | | + +--------+ + Encounter Details +--------+ + + + + | Date | Type | Department | Care Team | Description | +--------+ + + + + | 04/16/ | Telephone | [facility] | James Farmer, | Medication Question | 2019 | | [place] [address] [address] | MD Juanita FUNK | | | | | [place], | [place] | | | | | [place] [address] | [address] | | | | | [phone] | | | +--------+ + + + [...] Telephone Encounter - Ashlie Blevins LPN - 04/17/2020 8:51 AM PDTPatient returned call a nd states that Dr Kolb was wondering why she was on Diltiazem since it isnt helping her. Sh e would like to know if she should still be taking this or not? States that she was taking t his 4 times a day and it was decreased to once a day please advise if she should continue th is and how often to take it? Patient has an office visit on Wednesday to discuss continued issues with swallowing as well.E lectronically signed by Ashlie Blevins LPN at 04/17/2020 8:53 AM PDTTelephone Encounter - Ashlie Blevins LPN - 04/17/2020 8:37 AM PDTPhoned patient left voice mail to call back if she still has any questions about her medication elephone Encounter - Catherine Peters - 04/16/2020 4:27 PM PDTP atient called wanting to speak to the nurse in regards to her Diltiazem medication. Please a dvise. documented in this e ncounter Plan of Treatment Not on filedocumented as of this encounter Visit Diagnoses Not on filedocumented in this encounter"
--- OUTSIDE RECORDS SUMMARY | ~2020-05-16 | XMS | Encounter Summary ---
Demographics + + + | Address | [address] | | | [place] [address] | + + + | Home Phone [...] + + + | Author | [facility] | | | and [place] | + + + | Organization | [facility] | | | [...] Team Providers + +------+ + | Care Centerless Grinding Machine Adjuster Name | Role | Phone | + +------+ + | James Farmer MD | PCP | | + +------+ + Reason for Visit + +--------+ + | Reason | Onset | Comments | | | Date | | + +--------+ + | Heartburn | 08/08/ | | | | 2018 | | + +--------+ + Encounter Details +--------+ + + + + | Date | Type | Department | Care Team | Description | +--------+ + + + + | 08/08/ | Telephone | [facility] | James Farmer, | Heartburn | | 2018 | | MEDICINE [address] | [address] [facility] | | | | | [place], | [place] | | | | | [place] [address] | [address] | | | | | [phone] | | | +--------+ + + + [...] Telephone Encounter - Ashlie Blevins LPN - 08/08/2019 1:00 PM PDTReturned call to robb saldana and advised to come in today at 130. Accepted appointment and scheduledElectronically sign ed by Ashlie Blevins LPN at 08/08/2019 1:00 PM PDTTelephone Encounter - Salima Lala - 0 08/08/2019 11:27 AM PDTPatient called back, asking for the status of message. States she feel s a the burning sensation and feels sick, please advise. elephone Encounter - Ashlie Blevins LPN - 08/08/2019 10:21 A M PDTPatient was seen in march and not due to return for one year. Please advise elephone Encounter - Dhiraj Lala - 08/08/2019 10:11 AM PDTPatient called stating she is continuing to have acid problems. Unsure if omeprazole needs to be "upped." States no matter how slow or fast she eats, the s ensations comes up and feels sick. Asked if she should go to Urgent Care or wait to hear joaquin k from Dr. Farmer, please advise. 10: 20 AM PDTdocumented in this encounter Plan of Treatment Not on filedocumented as of this encounter Visit Diagnoses Not on filedocumented in this encounter
--- OUTSIDE RECORDS SUMMARY | ~2020-05-16 | XMS | Encounter Summary ---
Demographics + + + | Address | [address] | | | [place] [address] | + + + | Home Phone [...] Team Providers + +------+ + | Care Loan Operations Manager Name | Role | Phone | + +------+ + | James Farmer MD | PCP | | + +------+ + Reason for Visit + +--------+ + | Reason | Onset | Comments | | | Date | | + +--------+ + | Referral | 08/28/ | | | | 2018 | | + +--------+ + Encounter Details +--------+ + + + + | Date | Type | Department | Care Team | Description | +--------+ + + + + | 08/28/ | Telephone | [facility] | James Farmer, | Referral | | 2018 | | MEDICINE [address] | | | | | [place], | [place] | | | | | [place] [address] | [address] | | | | | [phone] | | | +--------+ + + + [...] Telephone Encounter - Ashlie Blevins LPN - 08/29/2019 7:59 AM PDTReturned call to robb saldana and advised that PT will not be covered for her at this time. If needed she can make an of fice visit to discuss but her insurance states there will be no coverage under current diagn osis that all therapies were recently complete under these codes. elephone Encounter - Ashlie Blevins LPN - 05/2019 3:40 PM PDTMelissa from PT phoned and states they received the order that was sent today on this patient. They state that patient was just recently discharged from PT and insu sulema would not cover anymore services and the diagnosis codes on the order are non funded. Please place new orders if needed with new diagnosis for services if patient has anything th at may warrant continued treatment.Electronically signed by Ashlie Blevins LPN at 9 3:43 PM PDTdocumented in this encounter Plan of Treatment Not on filedocumented as of this encounter Visit Diagnoses Not on filedocumented in this encounter"
--- OUTSIDE RECORDS SUMMARY | ~2020-05-16 | XMS | Encounter Summary ---
Demographics + + + | Address | [address] | | | [place] [address] | + + + | Home Phone [...] | Author | [facility] | | | and [place] | + + + | Organization | [facility] | | | and [...] Team Providers + +------+ + | Care Otr Owner Operator Name | Role | Phone | [...] Physical | Diagnoses | Darian, | [facility] | | | Services | Therapy / | Reduced | James Dennis MD | Fan | | | Required | Rehabilitatio | mobility | [address] | Therapy [address] | | | | n | Unsteady | [address] | | | | | gait | [place] | [place], | | | | | Procedures | [address] | [place] [address] | | | | | PT | Phone: | Phone: | | | | | | [phone] | [phone] | | | | | | Fax: | Fax: | | | | | | [phone] | [phone] | +--------+ + + + + + Encounter Details +--------+---------+ + + + | Date | Type | Department | Care Team | Description | +--------+---------+ + + + | 10/17/ | Office | [facility] | Ani Zepeda, | Reduced mobility; | | 2018 | Visit | [facility] | PT [address] | Weakness of both | | | | [address] | [place] | lower extremities; | | | | [place] | [address] | Impaired functional | | | | [address] | | mobility, balance, | | | | [phone] | | gait, and endurance | +--------+---------+ [...] encounter Progress Notes Ani Zepeda, PT - 10/17/2019 11:30 AM PSTFormatting of this note might be different f rom the original. [facility] [address] [place] [address] Physical Therapy Daily Treatment Note Date: 10/17/2019 Patient Information Patient Name: Cherrie Quijano Date of : 1960 Age: 58 y.o. Encounter Diagnoses Code Name Primary? Z74.09 Reduced mobility R29.898 Weakness of both lower extremities Z74.09 Impaired functional mobility, balance, gait, and endurance Date of Onset: 09/15/2019 Referring Provider: James Farmer MD Rehab Precautions Fluoroscopy Exam from 09/22/2019 in [facility] Rehab Precautions Precautions None Rehab Learning Style Fluoroscopy Exam from 09/22/2019 in [facility] Learning Style Patient's Optimum Learning Style listening, reading, observation, performance of task Start Time: 1128 Stop time: 1210 Duration: 42 minutes Timed Treatment Codes: 42 minutes # of PT Visits to Date: 2 Subjective: Pt reports she was able to the exercises when she could, took her awhile to get her balance with exercises. Pain Assessment: Objective: Therapeutic exercise to promote strength and mobility for improved functional mobility: (30 mins) Warm up on NuStep level 1-2 6 mins Bilateral calf raises 20 reps at bar Standing hip abduction on blue foam pad R & L side; moderate verbal and tactile cues for up right standing and to not rotate pelvis with activity Side step at balance bar 5 down and backs Bridges 2 sets of 10 reps Hooklying hip abduction with red TB around knees 20 reps Squats with chair and balance bar 20 reps Neuromuscular reeducation in order to improve coordination/sequencing/balance/initiation/no rmalize movements patterns to improve ability to safely complete ADL's. (12 mins) - Romberg stance on blue foam pad - tandem stance on blue foam pad - Single leg balance R & l with alternating finger taps - Rocker board A/P toe/heel taps - pt had great challenge disassociation of ankle movement with hip movement Assessment: Pt presents to therapy with gait difficulties due to decreased lower extremity strength. Pt demonstrates great difficulty with controlling hip and ankle range of motion du e to decreased strength. Pt would benefit from continued skilled therapy to progress strengt h and balance activities to reduce risk of falls. Plan: Progress LE strengthening exercises. Balance activities. Electronically signed by: Ani Zepeda PT, 10/17/2019 12:21 PM Patient Name: Cherrie Quijano/: 1960/ documented [...]
--- OUTSIDE RECORDS SUMMARY | ~2020-05-16 | XMS | Encounter Summary ---
Demographics + + + | Address | [address] | | | [place] [address] | + + + | Home Phone [...] Team Providers + +------+ + | Care Tool Mechanic Name | Role | Phone | + +------+ + | No, Physician | PCP | Unavailable | + +------+ + Reason for Visit + + + | Reason | Comments | + + + | Follow-up | 1 mo f/u oropharangeal | + + + Encounter Details +--------+---------+ + + + | Date | Type | Department | Care Team | Description | +--------+---------+ + + + | 06/10/ | Office | [facility] | Meng Talley | Conversion disorder | | 2017 | Visit | OTOLARYNGOLOGY [address] | MD Sarah [address] | (Primary Dx); | | | | [address] [place], [place] | Gastroesophageal | | | | [place], [place] | [address] | reflux disease with | | | | [address] | | esophagitis | | | | [phone] | Luis Escobar MD | | | | | | [address] | | | | | | [address] [place], | | | | | | [place] [address] | | | | | | [phone] | | | | | | | [...] + + | Pulse | 82 | 06/10/2017 7:56 AM | | | | | PDT | | + + + + + | Temperature | - | - | | + + + + + | Respiratory Rate | - | - | | + + + + + | Oxygen Saturation | 98% | 06/10/2017 7:56 AM | room air | | | | PDT | | + + + + + | Inhaled Oxygen | - | - | | | Concentration | | | | + + + + + | Weight | 84.6 kg (186 lb 9.6 | 06/10/2017 7:56 AM | | | | oz) | PDT | | + + + + + | Height | 162.6 cm (5' 4") | 06/10/2017 7:56 AM | | | | | PDT | | + + + + + | Body Mass Index | 32.03 | 06/10/2017 7:56 AM | | | [...]
--- OUTSIDE RECORDS SUMMARY | ~2020-05-16 | XMS | Encounter Summary ---
Demographics + + + | Address | [address] | | | [place] [address] | + + + | Home Phone [...] Author + + + | Author | [facility] | | | and [place] | + + + | Organization | [facility] | | | [...] Team Providers + +------+ + | Care Facilities Custodian Name | Role | Phone | + [...] | Specialty | Gastroenterol | Diagnoses | Zach, | Dalia, | | | Services | ogy | | Meng Regalado, | Rodriguez Arshad MD | | | Required | | Pharyngoesop | [address], | | | | | hageal | [address] | [address] | | | | | dysphagia | [facility] | [place], | | | | | Hiatal | [place], | [place] [address] | | | | | hernia with | [place] | Phone: | | | | | GERD Reflux | [address] | [phone] | | | | | esophagitis | Phone: | Fax: | | | | | | [phone] | [phone] | | | | | | Fax: | | | | | | | [phone] | | +--------+ + + + + + Reason for Visit + + + | Reason | Comments | + + + | Dysphagia | | + + + Encounter Details +--------+ + + + + | Date | Type | Department | Care Team | Description | +--------+ + + + + | 03/24/ | Emergency | [facility] | Meng Serrano, | Pharyngoesophageal | | 2019 | | [facility] | MD [address] | dysphagia (Primary | | | | CENTER [address] | [facility] [place] | Dx); Hiatal hernia | | | | [place], [place] | [place] [address] | with GERD; Reflux | | | | [address] | [phone] | esophagitis | | | | [phone] | | | +--------+ + + + [...] + + + | Blood Pressure | 118/84 | 03/24/2019 3:57 AM | | | | | PDT | | + + + + + | Pulse | 90 | 03/24/2019 3:57 AM | | | | | PDT | | + + + + + | Temperature | 37.4 C (99.3 F) | 03/24/2019 2:46 AM | | | | | PDT | | + + + + + | Respiratory Rate | 18 | 03/24/2019 2:46 AM | | | | | PDT | | + + + + + | Oxygen Saturation | 97% | 03/24/2019 3:57 AM | | | | | PDT | | + + + + + | Inhaled Oxygen | - | - | | | Concentration | | | | + + + + + | Weight | 88.5 kg (195 lb) | 03/24/2019 2:41 AM | | | | | PDT | | + + + + + | Height | 160 cm (5' 3") | 03/24/2019 2:41 AM | | | | | PDT | | + + + + + | Body Mass Index | 34.54 | 03/24/2019 2:41 AM | | | | | PDT | | + + + + + documented in this encounter Discharge Instructions Instructions Meng Serrano MD - 03/24/2019Resume your usual medications Liquid diet Follow-up with GI AttachmentsThe following attachments cannot be sent through Care Everywhere.Esophagitis (Rickey stover)documented in this encounter Medications at Time of [...] 6 hours as | | | | 9 | | tablet | needed for Pain. [...] documented as of this encounter ED Notes Meng Serrano MD - 03/24/2019 2:54 AM PDTFormatting of this note might be different f rom the original. [facility] Cherrie Quijano Emergency Department Encounter Note [address] [place] [id number] PCP:James Farmer MD CHIEF COMPLAINT Chief Complaint Patient presents with Dysphagia HPI Cherrie Quijano is a 58 y.o. female who presents to the emergency department with throa t discomfort with difficulty swallowing. These symptoms flared up starting on Wednesday. She has been taking an antihistamine due to some allergy problems. She complains that her throa t and mouth are very dry. She is uncomfortable. She is having trouble swallowing. She gerber t to urgent care and was given some isosorbide to try. That medication is not helping. She is providing her own history. She did have a stricture in the past that required dilation. No recent illnesses like cough or cold or fever. PAST MEDICAL HISTORY Past Medical History: Diagnosis Date Depression with anxiety Dysphagia 06/16/2017 GERD (gastroesophageal reflux disease) Seizure (HCC) Wears partial dentures upper SURGICAL HISTORY Past Surgical History: Procedure Laterality Date UPPER GASTROINTESTINAL ENDOSCOPY N/A 11/30/2017 Procedure: EGD; Surgeon: Loi Hui MD; Location: 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 ascorbic acid (VITAMIN C) 500 mg chewable tablet Take 500 mg by mouth Daily. Cyanocobalamin (B-12 PO) Take by mouth. DiphenhydrAMINE HCl, Sleep, (SLEEP AID) 25 MG CAPS Take 1 tablet by mouth nightly as ne eded. ibuprofen (ADVIL, MOTRIN) 200 mg tablet Take 400 mg by mouth every 6 hours as needed fo r Pain. isosorbide dinitrate (ISORDIL) 10 mg tablet TAKE ONE TABLET BY MOUTH THREE TIMES DAILY pseudoePHEDrine (SUDAFED) 60 MG tablet Take 60 mg by mouth every 4 hours as needed for Congestion. ALLERGIES No Known Allergies FAMILY HISTORY Family [...] Last attempt to quit: 2000 Years since quittin.3 Smokeless tobacco: Never Used Tobacco comment: smoked socially when she drank Substance and Sexual Activity Alcohol use: No Alcohol/week: 0.0 oz Drug use: No REVIEW OF SYSTEMS All systems reviewed and found negative except what is in the HPI PHYSICAL EXAM VITAL SIGNS: BP 115/77 | Pulse 89 | Temp 37.4 C (99.3 F) (Oral) | Resp 18 | Ht 1.6 m (5' 3") | Wt 88.5 kg (195 lb) | SpO2 97% | BMI 34.54 kg/m Constitutional: Well developed, Well nourished, No acute distress, Non-toxic appearance. HENT: Normocephalic, Atraumatic, Bilateral external ears normal, Tympanic membranes normal , Mucous membranes are moist, Nasal mucosa is normal. Oropharynx is clear. Tongue appears normal. Eyes: PERRL, EOMI, Conjunctiva normal, No discharge. Palpebral conjunctiva are pink. Neck: Normal range of motion, No tenderness, Supple, No stridor. Respiratory: Clear to auscultation bilaterally, No respiratory distress, No wheezing Chest: Non tender, no signs of trauma Cardiovascular: Normal heart rate, Normal rhythm, No murmurs appreciated. Extremities: Warm and well perfused, no edema, no joint swelling or deformity. Good ROM. Skin: Warm, Dry, No erythema, No induration, No rash. Neurologic: Alert & oriented x 3, No focal motor or sensory deficits. Speech is clear. G ait is normal. RADIOLOGY Soft tissue neck x-ray: No significant abnormalities noted. ED COURSE & MEDICAL DECISION MAKING Pertinent Labs & Imaging studies reviewed. (See chart for details) The patient was seen and examined shortly after arriving in the emergency department. Hist ory and physical were obtained, vital signs were noted. I reviewed her prior records includ ing her prior EGD. She had a Schatzki's ring that was dilated. She also had gastritis. So ft tissue neck x-ray is unremarkable. She was given a GI cocktail with some symptomatic imp rovement. 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 Referral to GI. Liquid diet. FINAL IMPRESSION 1. Pharyngoesophageal dysphagia 2. Hiatal hernia with GERD 3. Reflux esophagitis PLAN Follow-up Information Schedule an appointment as soon as possible for a visit with James Farmer MD. Specialty: Internal Medicine Contact information: [address] [facility] [address] Rodriguez Gómez MD. Call today. Specialty: Gastroenterology Why: GI evaluation (EGD endoscopy) Contact information: [address], [address] [facility] [address] Discharge Medication List as of 03/24/2019 4:05 Meng Serrano MD 03/24/19 0621 Ned Francisco RN - 03/24/2019 2:42 AM PDTPt presents to ER with CO dysphagia after being seen at [facility] or same earlier today. Was prescribed isosorbide to use prior to eating, Pt reports not work ing. documented i n this encounter Plan of Treatment + + +--------+ + + | Name | Type | Priori | Associated Diagnoses | Order Schedule | | | | ty | | | + + +--------+ + + | * [facility] | Outpatient | Routin | Pharyngoesophageal | Ordered: 03/24/2019 | | Gastroenterology - | Referral | e | dysphagia Hiatal | | | AMB Referral | | | hernia with GERD | | | | | | Reflux esophagitis | | + + +--------+ + + documented as of this encounter Procedures + +--------+ + + + | Procedure Name | Priori | Date/Time | Associated Diagnosis | Comments | | | ty | | | | + +--------+ + + + | XR NECK SOFT TISSUE | STAT | 03/24/2019 | | Results for this | | | | 3:03 AM | | procedure are in the | | | | PDT | | results section. | + +--------+ + + + documented in this encounter Results XR Neck Soft Tissue (03/24/2019 3:03 AM PDT) + + | Specimen | + + | | + + + + + | Narrative | Performed At | + + + | CLINICAL INFORMATION: DYSPHAGIA. COMPARISON: None. | [facility] | | FINDINGS: AP and lateral views of the soft tissue neck. Slight | | | degenerative anterolisthesis of C4. Straightening of the cervical | | | spine. Mild to moderate degenerative disc disease at C5-C6 and | | | C6-C7. Mild multilevel facet arthrosis. Normal height of the | | | vertebral bodies. Prevertebral soft tissues are unremarkable. | | | The airway appears patent. No neck radiodense foreign body. | | | Minimal right carotid artery calcifications. Lung apices are | | | clear. IMPRESSION - No acute abnormality. Dictated and | | | Signed by: Nishant Camarena MD Electronically signed: 03/24/2019 7:26 | | | AM | | + + + + + | Procedure Note | + + | Manohar, Rad Results In - 03/24/2019 7:29 AM PDT | | CLINICAL INFORMATION: DYSPHAGIA. | | | | COMPARISON: None. | | | | FINDINGS: | | AP and lateral views of the soft tissue neck. | | | | Slight degenerative anterolisthesis of C4. Straightening of the cervical spine. | | Mild to moderate degenerative disc disease at C5-C6 and C6-C7. Mild multilevel | | facet arthrosis. Normal height of the vertebral bodies. | | | | Prevertebral soft tissues are unremarkable. The airway appears patent. No neck | | radiodense foreign body. Minimal right carotid artery calcifications. Lung | | apices are clear. | | | | | | IMPRESSION - No acute abnormality. | | | | Dictated and Signed by: Nishant Camarena MD | | Electronically signed: 03/24/2019 7:26 AM | + + + +---------+ + [...] + | Reflux esophagitis | + + documented in this encounter Administered Medications + +--------+ +--------+------+------+ | Medication Order | MAR | Action | Dose | Rate | Site | | | Action | Date | | | | + +--------+ +--------+------+------+ | aluminum & magnesium | Given | 03/24/20 | 30 mLs | | | | hydroxide-simethicone (MAALOX | | 19 3:22 | | | | | PLUS REGULAR STRENGTH) 200-200-20 | | AM PDT | | | | | mg/5 mL suspension 30 mL 30 mL, | | | | | | | Oral, ONCE, 03/24/19 at 0320, | | | | | | | For 1 dose, Mix lidocaine and | | | | | | | Maalox. Shake well., | | | | | | + +--------+ +--------+------+------+ +---+---+ | | | +---+---+ + +-------+ +--------+---+---+ | lidocaine (XYLOCAINE) 2% | Given | 03/24/20 | 10 mLs | | | | viscous solution 10 mL 10 mL, | | 19 3:22 | | | | | Oral, ONCE, 03/24/19 at 0320, | | AM PDT | | | | | For 1 dose, Mix lidocaine and | | | | | | | MAALOX. Esvin haney., | | | | | | + +-------+ +--------+---+---+ +---+---+ | | | +---+---+ documented in this encounter
--- OUTSIDE RECORDS SUMMARY | ~2020-05-16 | XMS | Encounter Summary ---
Demographics + + + | Address | [address] | | | [place] [address] | + + + | Home Phone [...] Team Providers + +------+ + | Care Currency Machine Operator Name | Role | Phone [...] | Difficulty | James Dennis MD | [place] | | | Required | Rehabilitatio | in walking | [address] | Therapy [address] | | | | n | Procedures | [address] [place] | [address] | | | | | PT [place] | [place], [place] | [place], | | | | | [place]ED | [address] | [place] [address] | | | | | | Phone: | Phone: | | | | | | [phone] | [phone] | | | | | | Fax: | Fax: | | | | | | [phone] | [phone] | +--------+ + + + + + + + | Scheduling Instructions | + + | Progressive walking difficulty. She has had trouble walking since a seizure. | + + Reason for Visit + + + | Reason | Comments | + + + | Follow-up | 15 month | + + + | ER Follow-up | from 03/24/19 regarding dysphagia, was referred to do endoscopy | + + + Encounter Details +--------+---------+ + + + | Date | Type | Department | Care Team | Description | +--------+---------+ + + + | 04/20/ | Office | [facility] | James Farmer, | Reflux esophagitis | | 2019 | Visit | MEDICINE [address] | [address] [facility] | (Primary Dx); | | | | [address], | [place], [place] | Gastroesophageal | | | | [place] [address] | [address] | reflux disease, | | | | [phone] | | esophagitis presence | | | | | | not specified; | | | | | | Dysphagia, | | | | | | unspecified type; | | | | | | Difficulty in | | | | | | walking; Seizure | | | | | | ([facility]) | +--------+---------+ + + + Social History [...] + + + | Blood Pressure | 122/80 | 04/20/2019 2:35 PM | | | | | PDT | | + + + + + | Pulse | 86 | 04/20/2019 2:35 PM | | | | | PDT | | + + + + + | Temperature | 36.2 C (97.2 F) | 04/20/2019 2:35 PM | | | | | PDT | | + + + + + | Respiratory Rate | 18 | 04/20/2019 2:35 PM | | | | | PDT | | + + + + + | Oxygen Saturation | 98% | 04/20/2019 2:35 PM | | | | | PDT | | + + + + + | Inhaled Oxygen | - | - | | | Concentration | | | | + + + + + | Weight | 87.6 kg (193 lb 2 | 04/20/2019 2:35 PM | | | | oz) | PDT | | + + + + + | Height | - | - | | + + + + + | Body Mass Index | 34.21 | 04/05/2019 1:54 PM | | | | | PDT | | + + + + + documented in this encounter Progress Notes James Farmer MD - 04/20/2019 2:45 PM PDTFormatting of this note might be different f rom the original. Subjective: Patient ID: Cherrie Quijano is a 58 y.o. female. Chief Complaint Patient presents with Follow-up 15 month ER Follow-up from 03/24/19 regarding dysphagia, was referred to do endoscopy HPI: She has recently has been found to have esophagitis and was started on omeprazole. She was having some difficulty swallowing. She had an upper endoscopy which showed severe esop hagitis. She was placed back on omeprazole 40 mg twice a day for the next 3 weeks then she should stay on this medicine at least once a day probably indefinitely. She has had a seizure in the past. She is had no recurrence of this She has some trouble walking she says we talked about getting physical therapy for her walk ing to help her get some exercises so she can continue to work She is feeling well otherwise she has a history of depression but this is stable now. Past Medical History: Diagnosis Date Depression with anxiety Dysphagia 06/16/2017 GERD (gastroesophageal reflux disease) Seizure (HCC) Wears partial dentures upper Past Surgical History: Procedure Laterality Date UPPER GASTROINTESTINAL ENDOSCOPY N/A 11/30/2017 Procedure: EGD; Surgeon: Loi Hui MD; Location: [facility] MEDICAL PROCEDURE UNIT UPPER GASTROINTESTINAL ENDOSCOPY N/A 04/05/2019 Procedure: EGD; Surgeon: Loi Hui MD; Location: [facility] MEDICAL PROCEDURE UNIT VEIN SURGERY Patient Active Problem List Diagnosis Date Noted POA GERD (gastroesophageal reflux disease) 11/30/2017 Unknown Priority: Medium Pharyngoesophageal dysphagia 04/04/2019 Unknown Obesity (BMI 30-39.9) [...] 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 Focus Factor, Disp: , Rfl: Allergies No active allergies Intolerance No active intolerances/contraindications Review of Systems Constitutional: Negative. HENT: Negative. Eyes: Negative. Respiratory: Negative. Cardiovascular: Negative. Gastrointestinal: Positive for heartburn. Genitourinary: Negative. Musculoskeletal: Positive for joint pain. Skin: Negative. Neurological: Negative. Endo/Heme/Allergies: Negative. Psychiatric/Behavioral: Negative. Objective: BP 122/80 | Pulse 86 | Temp 36.2 C (97.2 F) (Temporal) | Resp 18 | Wt 87.6 kg (193 lb 2 oz) | LMP (LMP Unknown) | SpO2 98% | ? No | BMI 34.21 kg/m Physical Exam General survey shows no acute distress HEENT: The HEENT exam is unremarkable today Neck: No jugular venous distention, no thyroid enlargement, no carotid bruits, the neck is supple. Lungs: Clear to auscultation and percussion bilaterally Heart: Regular rhythm, normal rate, no significant murmur no S3 no S4 Abdomen: Soft active bowel sounds nontender no organomegaly Musculoskeletal: She appears to have a mild gait disturbance Neurologic: The neurologic exam appears to be symmetrically intact with no deficits noted Skin: No rashes or skin lesions seen. Psychiatric: No obvious psychiatric abnormalities noted today, the mood appears to be jaci l, no evidence of outside influences. Assessment/Plan: Cherrie was seen today for follow-up and er follow-up. Diagnoses and all orders for this visit: Reflux esophagitis Gastroesophageal reflux disease, esophagitis presence not specified Dysphagia, unspecified type Difficulty in walking - * [facility] Physical Therapy- AMB Referral Seizure (HCC) 1. We will continue to follow her reflux with omeprazole for the next year 2. We will refer her to physical therapy for evaluation and treatment for gait disturbance 3. If she stable she can come back in 1 year No follow-ups on file. documented in this encounter Plan of Treatment + + +--------+ + + | Name | Type | Priori | Associated Diagnoses | Order Schedule | | | | ty | | | + + +--------+ + + | * [facility] | Outpatient | Routin | Difficulty in | Ordered: 04/20/2019 | | [place] [facility] | Referral | e | walking | | | Physical Therapy- | | | | | | AMB Referral | | | | | + + +--------+ + + documented as of this encounter Visit Diagnoses + + | Diagnosis | + + | Reflux esophagitis - Primary | + + | Gastroesophageal reflux disease, esophagitis presence not specified | + + | Dysphagia, unspecified type | + + | Difficulty in walking | + + | Seizure (HCC) Other convulsions | + + documented in this encounter"
--- OUTSIDE RECORDS SUMMARY | ~2020-05-16 | XMS | Encounter Summary ---
Demographics + + + | Address | [address] | | | [place] [address] | + + + | Home Phone [...] Team Providers + +------+ + | Care Engineering Document Control Clerk Name | Role | Phone | + +------+ + | No, Physician | PCP | Unavailable | + +------+ + Reason for Visit + +--------+ + | Reason | Onset | Comments | | | Date | | + +--------+ + | Medication Question | 05/12/ | | | | 2016 | | + +--------+ + Encounter Details +--------+ + + + + | Date | Type | Department | Care Team | Description | +--------+ + + + + | 05/12/ | Telephone | [facility] | Luis Escobar MD | Medication Question | | 2016 | | OTOLARYNGOLOGY [address] | [address] [facility] | | | | | [address] [facility] [address] | [address], | | | | | [place] | [place] [address] | | | | | [address] | [phone] | | | | | [phone] | | | +--------+ + + + [...] Encounter - Janeth Stone RN - 05/13/2017 9:43 AM PDTPatient called blanka eda today and this was addressed in another note. 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 Please advise and callback at [phone]. documented in this encounter Plan of Treatment Not on filedocumented as of this encounter Visit Diagnoses Not on filedocumented in this encounter"
--- OUTSIDE RECORDS SUMMARY | ~2020-05-16 | XMS | Encounter Summary ---
Demographics + + + | Address | [address] | | | [place] [address] | + + + | Home Phone [...] + + + | Author | [facility] | | | and [place] | + + + | Organization | [facility] | | [...] Providers + +------+ + | Care Extruder Tender Name | Role | Phone | [...] [place] | | | | | | [address] | [address] | | | | | | Phone: | Phone: | | | | | | [phone] | [phone] | | | | | | Fax: | Fax: | | | | | | [phone] | [phone] | +--------+ + + + + + Reason for Visit +---------+ + | Reason | Comments | +---------+ + | Results | room 1/ from barrium swallow | +---------+ + Encounter Details +--------+---------+ + + + | Date | Type | Department | Care Team | Description | +--------+---------+ + + + | 04/29/ | Office | [facility] | Meng Talley | Esophageal dysphagia | | 2017 | Visit | CARE [address] | MD Sarah [address] | (Primary Dx); | | | | [place] | [place] | Hiatal hernia with | | | | [address] | [address] | GERD; Esophageal | | | | [phone] | | dysmotility; | | | | | | Esophagitis | +--------+---------+ + + + Social History [...] + + + | Blood Pressure | 123/86 | 04/29/2017 8:17 AM | | | | | PDT | | + + + + + | Pulse | 88 | 04/29/2017 8:17 AM | | | | | PDT | | + + + + + | Temperature | 36.2 C (97.1 F) | 04/29/2017 8:17 AM | | | | | PDT | | + + + + + | Respiratory Rate | 18 | 04/29/2017 8:17 AM | | | | | PDT | | + + + + + | Oxygen Saturation | 96% | 04/29/2017 8:17 AM | | | | | PDT | | + + + + + | Inhaled Oxygen | - | - | | | Concentration | | | | + + + + + | Weight | 88.9 kg (196 lb) | 04/29/2017 8:17 AM | | | | | PDT | | + + + + + | Height | 162.6 cm (5' 4") | 04/29/2017 8:17 AM | | | | | PDT | | + + + + + | Body Mass Index | 33.64 | 04/29/2017 8:17 AM | | | | | PDT | | + + + + + documented in this encounter Patient Instructions Patient Instructions Meng Talley MD - 04/29/2017 8:15 AM PDTFormatting of this n ote might be different from the original. Take omeprazole 20 mg, 1 capsule 30 minutes before breakfast and supper twice daily for 1 w te-moak, then reduce to 30 minutes before breakfast daily thereafter. Continue with liquid and soft diet until symptoms improve. Avoid taking ibuprofen, aspirin, Aleve, tobacco products, alcohol, carbonated beverages, ca ffeine and spicy foods. Sleep with the head of her bed elevated to a minimum of 30. Referral has been made to the gastroenterology clinic for follow-up evaluation and possible upper endoscopy of your esophagus. Return in the interim with any new or progressive associated symptoms. Tips to Control Acid Reflux To control acid reflux, you ll need to make some basic diet and lifestyle changes. The si mple steps outlined below may be all you ll need to ease discomfort. Watch what you eat Avoid fatty foods and spicy foods. Eat fewer acidic foods, such as citrus and tomato-based foods. These can increase sympto ms. Limit drinking alcohol, caffeine, and fizzy beverages. All increase acid reflux. Try limiting chocolate, peppermint, and spearmint.These can worsen acid reflux in some people. Watch when you eat Avoid lying down [id number] after eating. Do not snack before going to bed. Raise your head Raising your head and upper body by 4 to 6 incheshelps limit reflux when you re lying d own. Put blocks under the head of your bed frame to raise it. Other changes Lose weight, if you need to Don t exercise near bedtime Avoid tight-fitting clothes Limit aspirin and ibuprofen Stop smoking Date Last Reviewed: 05/22/201619993821-9615 [employer] [place] [address]. All righ ts reserved. This information is not intended as a substitute for professional medical care. Always follow your healthcare professional's instructions. Dysphagia Diet A dysphagia diet is a special eating plan. Your health care provider may advise it if you h ave trouble swallowing (dysphagia). Why a dysphagia diet is needed When you have dysphagia, you are at risk for aspiration. Aspiration is when food or liquid enters the lungs by accident. It can cause pneumonia and other problems. The foods you eat c an affect your ability to swallow. For example, soft foods are easier to swallow than hard f oods. A dysphagia diet can help prevent aspiration. You may be at risk for aspiration from d ysphagia if you have any of these medical conditions: Stroke Severe dental problems Conditions that lead to less saliva, such as Sjogren syndrome Mouth sores Parkinson disease or other neurologic conditions Muscular dystrophies Blockage in the esophagus, such as a growth from cancer You may need to follow a dysphagia diet for only a short time. Or you may be on it for a wh ile. It depends on what is causing your dysphagia and how serious it is. A speech-language p athologist (SELF PROPELLED MINING MACHINE OPERATOR) assesses a person with dysphagia. The SELF PROPELLED MINING MACHINE OPERATOR will determine your risk for aspi ration and talk about the best food and drink choices for you. Levels of a dysphagia diet The Academy of Nutrition and Dietetics has created a diet plan for people with dysphagia. T he plan is called the National Dysphagia Diet. The dysphagia diet has 4 levels of foods. The levels are: Level 1. These are foods that are pureed or smooth, like pudding. They need no chewing. This includes foods such as yogurt, mashed potatoes with gravy to moisten it, smooth soups, and pureed vegetables and meats. Level 2. These are moist foods that need some chewing. They include soft, cooked, or mas hed fruits or vegetables, soft or ground meats moist with gravy, cottage cheese, peanut butt er, and soft scrambled eggs. You should avoid crackers, nuts, and other dry foods. Level 3. This includes soft-solid foods that need more chewing. This includes meat, frui t, and vegetables that are easy to cut or mash. You should avoid crunchy, sticky, or very dr y foods. This includes nuts, crackers, chips, and other snack foods. Level 4. This level includes all foods. You will also need to be careful about the liquids you drink. Talk with your SELF PROPELLED MINING MACHINE OPERATOR about the liquids that are allowed on your dysphagia diet. Here is more information on managing liquid s in a dysphagia diet. Preparing food and liquids Your SELF PROPELLED MINING MACHINE OPERATOR will give you instructions about how to prepare your food. You may need to avoid c ertain foods, or make changes to some foods. For example, you may need to puree your food. M alexx sure to taste and season your food before pureeing it. It will be easier to adjust to a new diet if your food smells and tastes appealing. You may also need to make liquids thicker. You can manage your liquids by making thin liqui ds thicker. This is done by adding a flavorless gel, gum, powder, or other liquid to it. The se are called thickeners. You can also buy pre-thickened liquids. Talk with your SELF PROPELLED MINING MACHINE OPERATOR if you have any questions about managing your liquids. While you eat While eating or drinking, it may help to sit upright, with your back straight. You may need support pillows to get into the best position. It may also help to have few distractions wh ile eating or drinking. Changing between solid food and liquids may also help your swallowin g. Stay upright for at least 30 minutes after eating. This can help reduce the risk for aspi ration. Keep watch for symptoms of aspiration such as: Coughing or wheezing during or right after eating Excess saliva Shortness of breath or fatigue while eating A wet-sounding voice during or after eating or drinking Fever 30 to 60 minutes after eating After you eat After meals, it s important to do proper oral care. The SELF PROPELLED MINING MACHINE OPERATOR can give you instructions for your teeth or dentures. Make sure to not swallow any water during your oral care routine. Checking your health Your health care team will keep track of how well you are swallowing. You may need follow-u p tests such as a fiberoptic endoscopic evaluation of swallowing (FEES) test. If your swallo wing gets better or worse, your SELF PROPELLED MINING MACHINE OPERATOR may change your dysphagia diet over time. In time you ma y be able to eat and drink foods and liquids of all kinds. Getting enough liquids While on a dysphagia diet, you may have trouble taking in enough fluid. This can cause dehy dration, which can lead to serious health problems. Talk with your health care team about ho w you can help prevent this. In some cases drinking thicker liquids may make some of your me dicines work less well. Because of this, you may need some of your medicines changed for a w hile. While you are on a dysphagia diet Follow all instructions about what food and drink you can have. Do swallowing exercises as advised. Do not change your food or liquids, even if your swallowing gets better. Talk with your health care provider first. Crush medicines and mix them with food as needed. Tell all health care providers and caregivers that you are on a dysphagia diet. Explain which foods and liquids you can and cannot have. When to call your health care provider Call 911 if you have trouble breathing because of food blocking your airway. Call your health care provider right away if you have any of these: Trouble swallowing that gets worse Unplanned weight loss Chewed food coming back up into the mouth Vomiting Date Last Reviewed: 04/10/201519997911-3948 [employer]. [address] [place] [address], [place] [address]. All righ ts reserved. This information is not intended as a substitute for professional medical care. Always follow your healthcare professional's instructions. documented in this encounter Progress Notes Meng Talley MD - 04/29/2017 8:15 AM PDTFormatting of this note might be differen t from the original. 04/29/2017 Cherrie Quijano 1960 Assessment: 1. Esophageal dysphagia * [facility] - AMB Referral 2. Hiatal hernia with GERD 3. Esophageal dysmotility 4. Esophagitis Symptoms consistent with esophageal dysphagia resulting from small, sliding hiatal hernia w ith GERD, esophageal dysmotility and probable distal esophagitis though premalignant process cannot be excluded. Referral to the GI clinic and patient education information was provid ed. She was given the following instructions and prescription. Plan: Take omeprazole 20 mg, 1 capsule 30 minutes before breakfast and supper twice daily for 1 w te-moak, then reduce to 30 minutes before breakfast daily thereafter. Continue with liquid and soft diet until symptoms improve. Avoid taking ibuprofen, aspirin, Aleve, tobacco products, alcohol, carbonated beverages, ca ffeine and spicy foods. Sleep with the head of her bed elevated to a minimum of 30. Referral has been made to the gastroenterology clinic for follow-up evaluation and possible upper endoscopy of your esophagus. Return in the interim with any new or progressive associated symptoms. The risks and benefits, including potential side effects of medication changes, have been d iscussed with the patient. We agreed on implementing the current plan. The note may have been dictated using [employer] voice recognition software. It may have not b een proofread in entirety. Minor errors in grammar may occur. History: Chief Complaint Patient presents with Results room 1/ from [facility] Cherrie Quijano is a 56 y.o. female here for reevaluation of difficulty swallowing. Robyn mireles was seen here on April 24 for difficulty swallowing and ongoing for several months, worse fo r 5 days. Barium swallow was ordered. She has not started any specific treatment. She con tinues to have difficulty swallowing solids with a sense of them getting hung up just below her throat with intermittent regurgitation. She has stopped taking her usual medications wh ich include ibuprofen. She is tolerating popsicles and liquid diet. She was told by debbie mireles to avoid dairy products. She has not used any antacids, Prilosec or ifdv-prh-fyeybjh acid reducing medications. She has a history of heartburn without previous evaluation or specif ic treatment. She does drink cola and carbonated beverages, denies tobacco and alcohol. Sh e denies fever, chills, abdominal pain, chest pain, nausea and vomiting, melena and hematoch ezia. Bowels are moving regularly, a little slower with reduced diet. Current medications, past medical, surgical, family and social histories were reviewed and updated where appropriate. No Known Allergies Physical Exam: BP 123/86 | Pulse 88 | Temp 36.2 C (97.1 F) (Temporal) | Resp 18 | Ht 1.626 m (5' 4 ") | Wt 88.9 kg (196 lb) | SpO2 96% | BMI 33.64 kg/m General: Well appearing, obese, middle-aged female in no distress and appears stated age. Somewhat pressured speech and mildly tangential thinking. HEENT: [place] conjunctiva, anicteric sclera, moist oral membranes. Neck: Supple without adenopathy. Chest: Clear to auscultation. Cardiac: Regular rhythm without murmur. Abdomen: Flat with active bowel sounds, soft and nontender. No organomegaly or masses. Barium swallow performed on April 27, 2017. IMPRESSION - 1. Small sliding-type hiatal hernia [...] hernia with GERD | + + | Esophageal dysmotility Dyskinesia of esophagus | + + | Esophagitis Esophagitis, unspecified | + + documented in this encounter
--- OUTSIDE RECORDS SUMMARY | ~2020-05-16 | XMS | Encounter Summary ---
Demographics + + + | Address | [address] | | | [place] [address] | + + + | Home Phone | | + + + | Preferred Language | Unknown | + + + | Marital Status | Single | + + + | Yarsanism Affiliation | 1013 | + + + | Race | Unknown | + + + | Ethnic Group | Unknown | + + + Author + + + | Author | [facility] | | | and [place] | + + + | Organization | [facility] | | [...] Team Providers + +------+ + | Care Cabinetmaker Supervisor Name | Role | Phone | + +------+ + | James Farmer MD | PCP | | + +------+ + Encounter Details +--------+ + + + + | Date | Type | Department | Care Team | Description | +--------+ + + + + | 09/28/ | Orders Only | [facility] | James Farmer, | | | 2019 | | MEDICINE [address] | [address] | | | | | [place], | [place] | | | | | [place] [address] | [address] | | | | | [phone] | | | +--------+ + + + [...]
--- OUTSIDE RECORDS SUMMARY | ~2020-05-16 | XMS | Encounter Summary ---
Demographics + + + | Address | [address] | | | [place] [address] | + + + | Home Phone | | + + + | Preferred Language | Unknown | + + + | Marital Status | Single | + + + | Gnosticism Affiliation | 1013 | + + + [...] Team Providers + +------+ + | Care Montessori Preschool Teacher Name | Role | Phone | + [...] Description | +--------+--------+ + + + | 09/28/ | Refill | [facility] | James Farmer, | Medication Refill | | 2016 | | MEDICINE [address] | [place] [address] [facility] | | | | | [place], | [place] | | | | | [place] [address] | [address] | | | | | [phone] | | | +--------+--------+ + + + [...] this encounter Miscellaneous Notes Telephone Encounter - Rush Silva - 09/29/2017 9:22 AM PSTPatient has two mor e days worth. Please advise. documented in this encounter Plan of Treatment Not on filedocumented as of this encounter Visit Diagnoses Not on filedocumented in this encounter"
--- OUTSIDE RECORDS SUMMARY | ~2020-05-16 | XMS | Encounter Summary ---
Demographics + + + | Address | [address] | | | [place] [address] | + + + | Home Phone [...] Team Providers + +------+ + | Care Pastry Cook Name | Role | Phone | + +------+ + | James Farmer MD | PCP | | + +------+ + Encounter Details +--------+ + + + + | Date | Type | Department | Care Team | Description | +--------+ + + + + | 01/10/ | Abstract | [facility] | Ashok, | | | 2019 | | GASTROENTEROLOGY | MD Shar[address] | | | | | [address] | [place]. | | | | | [address] | [place] [address] | | | | | [address] | | | | | | [phone] | | | +--------+ + + + [...]
--- OUTSIDE RECORDS SUMMARY | ~2020-05-16 | XMS | Encounter Summary ---
Demographics + + + | Address | [address] | | | [place] [address] | + + + | Home Phone [...] Team Providers + +------+ + | Care Autistic Teacher Name | Role | Phone | + +------+ + | No, Physician | PCP | Unavailable | + +------+ + Reason for Visit + +--------+ + | Reason | Onset | Comments | | | Date | | + +--------+ + | Medication Question | 05/20/ | | | | 2016 | | + +--------+ + Encounter Details +--------+ + + + + | Date | Type | Department | Care Team | Description | +--------+ + + + + | 05/20/ | Telephone | [facility] | Meng Talley | Medication Question | | 2016 | | [address] | MD Sarah [address] | | | | | [place] | [place] | | | | | [address] | [address] | | | | | [phone] | | | +--------+ + + + [...] Encounter - Bridgett Galdamez Cert MA - 05/21/2017 9:32 AM PDTPt is calling let us know that Bryanna had told her she could go cherry picker operator her medication yesterday and she did but t he pharmacy would not let her get them till 05/24/17. I notified pt that sometime insurance wi ll not let the pharmacy bill until after the first medicaiton is out. Pt is going to call [facility] and see if they will let her cherry picker operator 05/23/17 so she has a pill for 05/24/17 morning. Pt understood and will call Isi Butts elephone Bryanna Fiore RN - 05/20/2017 9:57 AM PDTPatient calling, states she is out of omepr azole prescribed by Dr. Talley. She had her consult with Dr. Escobar and Dr. Escobar wants her to take it 2x per day until she sees him again "sometime in May." Called Dr. Escobar's o ffice, confirmed appt for June 10, also confirmed that he would like pt to take omeprazole BID until appt date. Pt has one refill left for 40capsules prescribed by Dr. Talley, not enough to take one BID until June 10. Dr. Escobar's office asked if we could prescribe h er the extra 4 capsules of omeprazole with her refill. Consulted with Dr. Marley who states th at if Dr. Escobar wants the pt to take her omeprazole BID then he should write her his own pre scription for it or the pt can buy it over the counter. Called [facility] pharmacy to order ref ill for pt, then called pt and left her a message, asked her to call back. Sarah Boggs documented in this en counter Plan of Treatment Not on filedocumented as of this encounter Visit Diagnoses Not on filedocumented in this encounter
--- OUTSIDE RECORDS SUMMARY | ~2020-05-16 | XMS | Encounter Summary ---
Demographics + + + | Address | [address] | | | [place] [address] | + + + | Home Phone [...] Team Providers + +------+ + | Care Nutrition Educator Name | Role | Phone | + +------+ + | James Farmer MD | PCP | | + +------+ + Reason for Visit + +--------+ + | Reason | Onset | Comments | | | Date | | + +--------+ + | Dysphagia | 05/13/ | | | | 2019 | | + +--------+ + Encounter Details +--------+ + + + + | Date | Type | Department | Care Team | Description | +--------+ + + + + | 05/13/ | Telephone | [facility] | Nishant Arceo | Dysphagia | | 2019 | | GASTROENTEROLOGY | MD Tang [address] | | | | | [address] [facility] | [address] [facility] | | | | | [address] [place], [place] | [place] [address] | | | | | [address] | [phone] | | | | | [phone] | | | +--------+ + + + [...] Telephone Encounter - Nishant Arceo MD - 05/14/2020 5:47 PM PDTD/w Dr Bebe george. Reviewed that this is a challenging case. Pt has severe dysphagia, but he EGD was neg fo r strictures, and has EGJOO. Discussed a PEG tube to assist with nutrition. [facility] and to broach topic of the PEG. elephone [facility] Berna Haider RN - 05/13/2020 9:[address] 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 Arceo; pt's sister concerned as she sta yossi it wasn't that long ago her sister was a functioning person and now she is not; patient difficulty swallowing; aware of the botox; worked for a couple days and then it didn't; ment ioned consult recently with Dr. Morales Advised I would route to Dr. Arceo. Electronically signed by Berna Esqueda RN at 9:38 AM PDTdocumented in this encounter Plan of Treatment Not on filedocumented as of this encounter Visit Diagnoses Not on filedocumented in this encounter"
--- OUTSIDE RECORDS SUMMARY | ~2020-05-16 | XMS | Encounter Summary ---
Demographics + + + | Address | [address] | | | [place] [address] | + + + | Home Phone | | + + + | Preferred Language | Unknown | + + + | Marital Status | Single | + + + | Pentecostalism Affiliation | 1013 | + + + | Race | Unknown | + + + | Ethnic Group | Unknown | + + + Author + + + | Author | [facility] | | | and [place] | + + + | Organization | [facility] | | | [...] Team Providers + +------+ + | Care Vibrator Equipment Tester Name | Role | Phone | + [...] | | | MOTILITY | | [place] [address] | | | | | STUDY | | Phone: | | | | | MANOMETRY | | [phone] | | | | | ESOPHAGEAL | | Fax: | | | | | | | [phone] | +--------+--------+ + + + + Encounter Details +--------+---------+ + + + | Date | Type | Department | Care Team | Description | +--------+---------+ + + + | 01/30/ | Surgery | [facility] | Nishant Arceo | MANOMETRY ESOPHAGEAL | | 2019 | | MED [facility] | MD Tang [address] | | | | | [address] | [address] [place] | | | | | [place], [place] | [place] [address] | | | | | [address] | [phone] | | | | | [phone] | | | +--------+---------+ + + + [...] Basal (mmHg): 134.3 (34-104) Residual (mmHg): 6.3 [place] Classification: % failed: 20 % weak: 60 [...]
--- OUTSIDE RECORDS SUMMARY | ~2020-05-16 | XMS | Encounter Summary ---
Demographics + + + | Address | [address] | | | [place] [address] | + + + | Home Phone [...] Team Providers + +------+ + | Care Band Attacher Name | Role | Phone | + +------+ + | James Farmer MD | PCP | | + +------+ + Encounter Details +--------+ + + + + | Date | Type | Department | Care Team | Description | +--------+ + + + + | 12/08/ | Orders Only | [facility] | James Farmer, | | | 2019 | | MEDICINE [address] | [address] | | | | | [place], | [place] | | | | | [place] [address] | [address] | | | | | [phone] | | | +--------+ + + + [...]
--- OUTSIDE RECORDS SUMMARY | ~2020-05-16 | XMS | Encounter Summary ---
Demographics + + + | Address | [address] | | | [place] [address] | + + + | Home Phone [...] Team Providers + +------+ + | Care Skill Training Program Coordinator Name | Role | Phone | + +------+ + | No, Physician | PCP | Unavailable | + +------+ + Reason for Visit + + + | Reason | Comments | + + + | Pharyngitis | Pro Rm 1; x 6 days, | + + + | Cough | x 6 days, sputum is yellow, chest/lung pain, causes headache | + + + Encounter Details +--------+---------+ + + + | Date | Type | Department | Care Team | Description | +--------+---------+ + + + | 02/03/ | Office | [facility] | Rodriguez Pena, | Maxillary sinusitis, | | 2017 | Visit | CARE [address] | [address] | unspecified | | | | [place] | [place] | chronicity (Primary | | | | [address] | [id number] | Dx); Bronchitis | | | | [phone] | | | +--------+---------+ + + + [...] + + + | Blood Pressure | 101/74 | 02/03/2017 9:43 AM | | | | | PDT | | + + + + + | Pulse | 89 | 02/03/2017 9:43 AM | | | | | PDT | | + + + + + | Temperature | 37.3 C (99.1 F) | 02/03/2017 9:43 AM | | | | | PDT | | + + + + + | Respiratory Rate | 20 | 02/03/2017 9:43 AM | | | | | PDT | | + + + + + | Oxygen Saturation | 95% | 02/03/2017 9:43 AM | | | | | PDT | | + + + + + | Inhaled Oxygen | - | - | | | Concentration | | | | + + + + + | Weight | 93.6 kg (206 lb 6.4 | 02/03/2017 9:43 AM | | | | oz) | PDT | | + + + + + | Height | 162.6 cm (5' 4") | 02/03/2017 9:43 AM | | | | | PDT | | + + + + + | Body Mass Index | 35.43 | 02/03/2017 9:43 AM | | | | | PDT | | + + + + + documented in this encounter Patient Instructions Patient Instructions Rodriguez Pena MD - 02/03/2017 10:04 AM PDTGet plenty of rest and w ater. Take the Zithromax as directed. Take the cough medicine as directed if needed.Don't do anything you need to be alert to do for 6 hours after taking a narcotic, such as driving, running machinery, swimming, etc. Recheck as needed. documented in this encounter Progress Notes Rodriguez Pena MD - 02/03/2017 10:14 AM PDT dRodriguez ibarra MD - 02/03/2017 10:13 AM PDT Subjective: Patient ID: Cherrie Quijano is a 56 y.o. female. Pharyngitis Associated symptoms include congestion and coughing. Cough Patient's medications, allergies, past medical, surgical, social and family histories were obtained and reviewed as appropriate. This lady came in today came in complaining about 5 days of congestion and cough bringing u p green sputum. She has not had a fever. She has pressure pain in her sinuses. She has a mild sore throat also. She denies earache or other complaint. I reviewed her past history and meds. Review of Systems Constitutional: Negative. HENT: Positive for congestion and sinus pressure. Respiratory: Positive for cough. Cardiovascular: Negative. Gastrointestinal: Negative. Objective: Physical Exam Constitutional: She is oriented to person, place, and time. She appears well-developed and well-nourished. No distress. Patient is 56-year-old female sitting on chair in the exam room. She did not matthew ear in obvious distress. Her vital signs were essentially unremarkable. HENT: Head: Normocephalic. Right Ear: External ear normal. Left Ear: External ear normal. Fairly marked nasal congestion. Moderate tenderness to pressure over the maxillary sinuses . Mild erythema of the pharynx but no edema or exudate. Eyes: Conjunctivae are normal. Pupils are equal, round, and reactive to light. Neck: Normal range of motion. Neck supple. Cardiovascular: Normal rate, regular rhythm and normal heart sounds. Pulmonary/Chest: Effort normal and breath sounds normal. Occasional congested cough Musculoskeletal: Normal gait and balance Neurological: She is alert and oriented to person, place, and time. Vitals reviewed. Assessment: 1. Maxillary sinusitis, unspecified chronicity 2. Bronchitis HYDROcodone-homatropine (HYCODAN) 5-1.5 MG/5ML syrup Plan: Please see the AVS for the plan unless outlined elsewhere. I will give her a Zithromax Z-BOOGIE and some Hycodan syrup since she's having trouble sleepin g at night. I discussed med use and risks. Rest and push fluids. Recheck as needed. She had no questions. documented in this e ncounter Plan of Treatment Not on filedocumented as of this encounter Visit Diagnoses + + | Diagnosis | + + | Maxillary sinusitis, unspecified chronicity - Primary | + + | Bronchitis Bronchitis, not specified as acute or chronic | + + documented in this encounter
--- OUTSIDE RECORDS SUMMARY | ~2020-05-16 | XMS | Encounter Summary ---
Demographics + + + | Address | [address] | | | [place] [address] | + + + | Home Phone | | + + + | Preferred Language | Unknown | + + + | Marital Status | Single | + + + | Zoroastrian Affiliation | 1013 | + + + | Race | Unknown | + + + | Ethnic Group | Unknown | + + + Author + + + | Author | [facility] | | | and [place] | + + + | Organization | [facility] | | [...] Providers + +------+ + | Care Wood Finisher Name | Role | Phone | + +------+ + | James Farmer MD | PCP | | + +------+ + Reason for Visit +--------+--------+ + | Reason | Onset | Comments | | | Date | | +--------+--------+ + | EGD | 10/21/ | | | | 2016 | | +--------+--------+ + Encounter Details +--------+ + + + + | Date | Type | Department | Care Team | Description | +--------+ + + + + | 10/21/ | Telephone | [facility] | Loi Hui MD | EGD | | 2016 | | GASTROENTEROLOGY | [address] | | | | | [address] [facility] | [place], [place] | | | | | [address] [place], [place] | [address] | | | | | [address] | [phone] | | | | | [phone] | | | +--------+ + + + [...] Telephone Encounter - Zarina Ramon RN - 10/21/2017 1:50 PM PSTSpoke with patient and e xplained we received another referral to schedule her for EGD; she was scheduled for egd/col on on 07/21, and had to cancel due to hospital admission at [facility]; patient is reluctan t to schedule due to having to be sedated and thought "someone was going to spray something up my nose and then stick a tube in my nose and down my throat in the office," explained shonda t procedure would be with an ENT, and her referral is for a EGD to look down esophagus and i n stomach; 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 Hui, but she was previously seen in office by him in May and advised egd/colon; chart with Shamir verdin documented in this encounter Plan of Treatment Not on filedocumented as of this encounter Visit Diagnoses Not on filedocumented in this encounter
--- OUTSIDE RECORDS SUMMARY | ~2020-05-16 | XMS | Encounter Summary ---
Demographics + + + | Address | [address] | | | [place] [address] | + + + | Home Phone | | + + + | Preferred Language | Unknown | + + + | Marital Status | Single | + + + | Congregation Affiliation | 1013 | + + + | Race | Unknown | + + + | Ethnic Group | Unknown | + + + Author + + + | Author | [facility] | | | and [place] | + + + | Organization | [facility] | | | and [...] Team Providers + +------+ + | Care Creasing Machine Operator Name | Role | Phone | + +------+ + | James Farmer MD | PCP | | + +------+ + Encounter Details +--------+ + + + + | Date | Type | Department | Care Team | Description | +--------+ + + + + | 06/27/ | Orders Only | [facility] | Loi Hui MD | Esophagitis, [place] | | 2019 | | GASTROENTEROLOGY | [address] [facility] | Flavia grade D; | | | | [address] [facility] | [place], [place] | Gastroesophageal | | | | [address] [place], [place] | [address] | reflux disease, | | | | [address] | [phone] | esophagitis presence | | | | [phone] | | not specified; | | | [...] + documented as of this encounter Progress Zarina Espinal RN - 06/27/2019 10:47 AM PDTOmeprazole refilled. documented in this encounter Plan of Treatment Not on filedocumented as of this encounter Visit Diagnoses + + | Diagnosis | + + | Esophagitis, Boon grade D | + + | Gastroesophageal reflux disease, esophagitis presence not specified | + + | Dysphagia, unspecified type | + + documented in this encounter"
--- OUTSIDE RECORDS SUMMARY | ~2020-05-16 | XMS | Encounter Summary ---
Demographics + + + | Address | [address] | | | [place] [address] | + + + | Home Phone [...] Team Providers + +------+ + | Care Wet Room Worker Name | Role | Phone | + +------+ + | James Farmer MD | PCP | | + +------+ + Reason for Visit + +--------+ + | Reason | Onset | Comments | | | Date | | + +--------+ + | Dysphagia | 03/08/ | | | | 2019 | | + +--------+ + Encounter Details +--------+ + + + + | Date | Type | Department | Care Team | Description | +--------+ + + + + | 03/08/ | Telephone | [facility] | Nishant Arceo | Dysphagia | | 2019 | | GASTROENTEROLOGY | MD [address] | | | | | [address] [facility] | [address] [facility] | | | | | [address] [place], [place] | [facility] [place] [place] [address] | | | | | [address] | [phone] | | | | | [phone] | | | +--------+ + + + [...] this encounter Miscellaneous Notes Telephone Encounter - eBrna Esqueda RN - 03/12/2020 1:30 PM PDTLeft message for raman Arceo would like her to schedule a visit with him next week. elephone Encounter - Nishant Arceo MD - 03/12/2020 12:49 PM PDTOk, they bumped up her diflucan dose to 200mg daily for 7 d ays. Hopefully this helps. Can you set her up for a virtual visit next week? elephone Encounter - Berna Esqueda RN - 03/12/2020 9:17 AM PDTCalled patient to advise her of Dr. Arceo's recommendation; patient was reluctan t to proceed with another procedure; she advised she ended up going to ED last night because she was not able to swallow well; she was given an increase in fluconazole 200 mg daily for 7 days and advised to gargle with salt water; she states she was also dehydrated. Advised pt I would route our conversation to Dr. Arceo so he would see her visit to ED and see if th ere were any further recommendations. 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 Would need MAC for this, need her to be still. Ca n also reassess the candidiasis at that time to see how it is doing. elephone Encounter - Berna Esqueda RN - 03/11/2020 1:31 PM PDTPatient called back; she states tomorrow is her last day of h er Diflucan; she feels things are not getting better; she is not able to tolerate any regula r foods or full liquid foods; she still feels the back of her throat is scratchy; she is onl y able to take in more thin liquids; she stated her diet really consists of pudding, jell-o , cream of chicken but chicken comes back up; tomato soup and nutrition drinks. She tried cr eam of wheat but it gets stuck and is is afraid to try mashed potatoes; she is frustrated an d would like to know what she is to do next? Advised I would route this to Dr. Arceo to get his recommendation and be in touch with her. She verbalized understanding. Electronically si gned by Berna Esqueda RN at 03/11/2020 1:40 PM PDTTelephone Encounter - Kavin Esqueda RN - 03/11/2020 9:27 AM PDTReturned call to patient and left message for her to c all the clinic so I may obtain information as to medication and symptoms she feels she is st ill having in order to relay to Dr. Arceo and obtain recommendation. Awaiting call back.Elec tronically signed by Berna Esqueda RN at 03/11/2020 9:28 AM PDTTelephone Encounter - Yi Barrera - 03/08/2020 1:49 PM PDTPatient has been on medication for about 3 weeks , and with only 4 pills left she doesn't feel like she is any better. She would like to know what to do next. Please advise, Thank you Electronically signed by Yi Barrera at 02/20 1:51 PM PDTdocumented in this encounter Plan of Treatment Not on filedocumented as of this encounter Visit Diagnoses Not on filedocumented in this encounter"
--- OUTSIDE RECORDS SUMMARY | ~2020-05-16 | XMS | Encounter Summary ---
Demographics + + + | Address | [address] | | | [place] [address] | + + + | Home Phone [...] Team Providers + +------+ + | Care Tactical Deception Plans Officer Name | Role | Phone | + +------+ + | James Farmer MD | PCP | | + +------+ + Encounter Details +--------+ + + + + | Date | Type | Department | Care Team | Description | +--------+ + + + + | 11/16/ | [facility] | [facility] | James Farmer, | Esophageal | | 2018 | Encounter | MED CTR XRAY [address] | dysmotility; | | | | [place] | [place], [place] | Gastroesophageal | | | | [place] [address] | [address] | reflux disease, | | | | [phone] | | esophagitis presence | | | | | Rad, [facility] | not specified | +--------+ + + + + Social [...] tablet by | 30 | 2 | 09/28/20 | | | 5 mg tablet | mouth 3 times daily | tablet | | 19 | 0 | | | as needed. For | | | | | | | anxiety | | | | | + + + +---------+ + + | carbidopa-levodopa | Take 1 tablet by | 60 | 3 | 10/26/20 | | | (SINEMET) 10-100 mg | mouth 2 times daily. | tablet | | 19 | 9 | | per tablet | | | | | | + + + +---------+ + + | dicyclomine | Take 2 capsules by | 240 | 0 | 11/13/20 | | | (BENTYL) 10 mg | mouth every 6 hours. | capsule | | 19 | 9 | | capsule | | | | [...] + | [place] ESOPHAGRAM | Routin | 11/16/2019 | Esophageal | Results for this | | COMPLETE | e | 1:30 PM | dysmotility | procedure are in the | | | | PST | Gastroesophageal | results section. | | | | | reflux disease, | | | | | | esophagitis presence | | | | | | not specified | | + +--------+ + + + documented in this encounter Results [place] Esophagram Complete (11/16/2019 1:30 PM PST) + + | Specimen | + + | | + + + + + | Impressions | Performed At | + + + | Moderate esophageal dysphagia with persistent tertiary | [facility] | | contractions at the mid to distal esophagus. Probable small | | | sliding hiatal hernia. Dictated and Signed by: Nishant Camarena MD | | | Electronically signed: 11/16/2019 3:50 PM | | + + + + + + | Narrative | Performed At | + + + | CLINICAL INFORMATION: Difficulty swallowing COMPARISON: 04/27/2017 | [facility] | | and 09/22/2019 TECHNIQUE: After obtaining a sports bookmaker image, the | | | patient consumed effervescent crystals followed by preparations of | | | thick and thin barium. Multiple spot images of the esophagus were | | | obtained during the exam. FINDINGS: Swallowing: No aspiration or | | | laryngeal penetration. Esophagus: Moderate tertiary contractions | | | noted throughout the esophagus (most notable mid to distal) with mild | | | to and fro motion and stasis of the ingested contrast. No stricture, | | | ulcer or mass. Probable small sliding hiatal hernia. | | | Gastroesophageal reflux: None identified. | | + + + + + | Procedure Note | + + | Manohar, Rad Results In - 11/16/2019 3:53 PM PST CLINICAL INFORMATION: Difficulty | | swallowingCOMPARISON: 04/27/2017 and 09/22/2019TECHNIQUE: After obtaining a sports bookmaker image, | | the patient consumed effervescentcrystals followed by preparations of thick and thin | | barium. Multiple spot imagesof the esophagus were obtained during the | | exam.FINDINGS:Swallowing: No aspiration or laryngeal penetration.Esophagus: Moderate | | tertiary contractions noted throughout the esophagus (mostnotable mid to distal) with | | mild to and fro motion and stasis of the ingestedcontrast. No stricture, ulcer or mass. | | Probable small sliding hiatal hernia. Gastroesophageal reflux: None | | identified.IMPRESSION: Moderate esophageal dysphagia with persistent tertiary | | contractions at the midto distal esophagus.Probable small sliding hiatal hernia.Dictated | | and Signed by: Nishant Camarena MD Electronically signed: 11/16/2019 3:50 PM | |Esophagus: Moderate tertiary contractions noted throughout the esophagus (most | |notable mid to distal) with mild to and fro motion and stasis of the ingested | |contrast. No stricture, ulcer or mass. Probable small sliding hiatal hernia. | | | |Gastroesophageal reflux: None identified. | | | | | |IMPRESSION: | | | |Moderate esophageal dysphagia with persistent tertiary contractions at the mid | |to distal esophagus. | | | |Probable small sliding hiatal hernia. | | | |Dictated and Signed by: Nishant Camarena MD | | Electronically signed: 11/16/2019 3:50 PM | + + + +---------+ + + | Performing | Address | City/State/Zipcode | Phone Number | | Organization | | | | + +---------+ + + | [facility] | | | | + +---------+ + + documented in this encounter Visit Diagnoses + + | Diagnosis | + + | Esophageal dysmotility Dyskinesia of esophagus | + + | Gastroesophageal reflux disease, esophagitis presence not specified | + + documented in this encounter Administered Medications + +--------+ +---------+------+------+ | Medication Order | MAR | Action | Dose | Rate | Site | | | Action | Date | | | | + +--------+ +---------+------+------+ | barium (E-Z-HD) 98% contrast | Given | 11/16/20 | 100 mLs | | | | suspension 100 mL 100 mL, Oral, | | 19 1:09 | | | | | ONCE PRN, Other, Starting Wendy | | PM PST | | | | | 11/16/19 at 1308, For 1 dose, | | | | | | | Shake well., | | | | | | + +--------+ +---------+------+------+ +---+---+ | | | +---+---+ + +-------+ +--------+---+---+ | barium (LIQUID E-Z-PAQUE) 60% | Given | 11/16/20 | 85 mLs | | | | contrast suspension 85 mL 85 mL, | | 19 1:09 | | | | | Oral, ONCE PRN, Other, Starting | | PM PST | | | | | Wendy 11/16/19 at 1308, For 1 dose, | | | | | | | Shake well., | | | | | | + +-------+ +--------+---+---+ +---+---+ | | | +---+---+ documented in this encounter"
--- OUTSIDE RECORDS SUMMARY | ~2020-05-16 | XMS | Encounter Summary ---
Demographics + + + | Address | [address] | | | [place] [address] | + + + | Home Phone | | + + + | Preferred Language | Unknown | + + + | Marital Status | Single | + + + | Zoroastrianism Affiliation | 1013 | + + + [...] Providers + +------+ + | Care Adjunct Phlebotomy Instructor Name | Role | Phone | + +------+ + | James Farmer MD | PCP | | + +------+ + Reason for Visit + +--------+ + | Reason | Onset | Comments | | | Date | | + +--------+ + | Medication Refill | 11/23/ | | | | 2017 | | + +--------+ + Encounter Details +--------+--------+ + + + | Date | Type | Department | Care Team | Description | +--------+--------+ + + + | 11/23/ | Refill | [facility] | James Farmer, | Medication Refill | | 2017 | | MEDICINE [address] | | | | | [place], | [place] | | | | | [place] [address] | [address] | | | | | [phone] | | | +--------+--------+ + + + [...] Telephone Encounter - Ashlie Blevins LPN - 11/26/2017 3:52 PM PSTPhoned back and patient understands that she will need to wait until her appt in Dec for he alprazolam, she would l leno refill of isosorbide elephone Encounter - Renetta Bonds - 11/26/2017 3:42 PM PSTPatient received Igor lewis's call. Patient stated she does have an appointment and she would like to know sometime today if he will fill or not. Patient did not seem to understand that he will not fill Alprazolam without a visit. Please call to clarify [phone] elephone Encounter - Rush Silva - 11/26/2017 3:37 PM PSTPatient is scheduled for Jan 03. Left voice message as per below. 3 :37 PM PSTTelephone Encounter - Ashlie Blevins LPN - 11/26/2017 1:06 PM PSTPlease call an d advise she needs to schedule a follow up visit for refills of alprazolam per Jayden rogers signed by Ashlie Blevins LPN at 11/26/2017 1:07 PM PSTTelephone Encounter - Emerson Blevins LPN - 11/23/2017 3:51 PM PSTLast office visit was on October 05 patient was reque sted to return in 4 weeks and was not seen in October. She has been to urgent care for sinu s issues twice 10/22 and 11/16 as well as some other visits to gastro. Please advise for refi lls? elephone Encount er - Salima Pan - 11/23/2017 3:23 PM PSTContact/Caller: Cherrie Contact Number: [phone] Provider/Nurse: Darian Reason for Call: Patient called requesting medication refill on aloprazolam 0.25 mg/ 90 pil ls/to be sent to [facility] pharmacy in [place] due to insurance will cover medication . And request for isosorbide 10 mg/ 90 pills/ [facility] pharmacy. Last Appointment: 10/05/17 Next Appointment: 01/03/18 documented in this encoun ter Plan of Treatment Not on filedocumented as of this encounter Visit Diagnoses Not on filedocumented in this encounter"
--- OUTSIDE RECORDS SUMMARY | ~2020-05-16 | XMS | Encounter Summary ---
Demographics + + + | Address | [address] | | | [place] [address] | + + + | Home Phone [...] Team Providers + +------+ + | Care Primary Montessori Teacher Name | Role | Phone | [...] | +--------+ + + + + | 07/23/ | Anesthesia | [facility] | [place], | | | 2017 | Event | [facility] | DO Konstantin [address] | | | | INTRA [address] [place] | | | | | [place] | [place] [address] | | | | | [address] | [phone] | | | | | [phone] | | | | | | | Eligio Scott CRNA | | | | | | [address] | | | | | | [place] [address] | | | | | | [phone] | | | | | | | | +--------+ + + + + Anesthesia Record + + + + + | Procedure Name | Responsible | Anesthesia Start | Anesthesia Stop Time | | | Anesthesiologist | Time | | + + + + + | EGD, COLONOSCOPY | | | | | (N/A Mouth) | | | | + + + + + + + | No events on file. | + + +------+ | Meds | +------+ + + + No medications | on file. | + + + + + | No agents on file. | + + + + | No blood administrations on file. | + + + + | No LDAs on file. | + + documented in this encounter Social History + + + +--------+------+ | [...] as of this encounter OR Notes Anesthesia Preprocedure Evaluation - Konstantin Carvalho DO - 07/23/2017 2:28 PM PDTFormat ting of this note might be different from the original. ANESTHESIA PREANESTHESIA EVALUATION Cherrie Quijano 56 y.o. female 1960 [id number] Procedure(s): EGD, COLONOSCOPY (N/A Mouth) COLONOSCOPY (N/A Rectum) Medical history, anesthesia, medications, allergy, NPO status verified histories reviewed. ECG reviewed. Labs reviewed. Review of Systems / Med History Anesthesia History No anesthesia complications. Cardiovascular , Exercise tolerance <4 METS Anesthesia Physical Exam Anesthesia Plan Case cancelled secondary to angina symptoms with exertion. . documented in this encounter Plan of Treatment Not on filedocumented as of this encounter Visit Diagnoses Not on filedocumented in this encounter"
--- OUTSIDE RECORDS SUMMARY | ~2020-05-16 | XMS | Encounter Summary ---
Demographics + + + | Address | [address] | | | [place] [address] | + + + | Home Phone | | + + + | Preferred Language | Unknown | + + + | Marital Status | Single | + + + | Mandaen Affiliation | [id number] | + + + [...] Team Providers + +------+ + | Care Sighter Name | Role | Phone | + +------+ + | James Farmer MD | PCP | | + +------+ + Reason for Visit + +--------+ + | Reason | Onset | Comments | | | Date | | + +--------+ + | Sleep Apnea | 04/23/ | | | | 2019 | | + +--------+ + Encounter Details +--------+ + + + + | Date | Type | Department | Care Team | Description | +--------+ + + + + | 04/23/ | Telephone | [facility] | James Farmer, | Sleep Apnea | | 2019 | | MEDICINE [address] | [address] [facility] | | | | | [place], | [place] | | | | | [place] [address] | [address] | | | | | [phone] | | | +--------+ + + + [...] Notes Telephone Encounter - Rush Silva - 04/24/2020 1:39 PM PDTPatient rescheduled to 11:30 am on April 26 1:3 9 PM PDTTelephone Encounter - Ashley Grider, Impact Hammer Operator - 04/24/2020 10:57 AM PDTPati ent called in yesterday and was scheduled for 04/26/20 at 2:30pm (taking up two 15 min appts). Called and left VM to reschedule appt as it was scheduled out of template, offered 04/26/20 a t 11:30am or 1pm. 10:5 8 AM PDTTelephone Encounter - Ashlie Belvins LPN - 04/23/2020 1:26 PM PDTPatient returned call and states that she is just looking for answers and is in limbo. Doesn't know what to do about her eating. States that the [facility] had her scheduled then they had to move h er appointment. I explained that until she is seen by the other professionals and specialtie s we do not have any further answer to her problems so she must see them for us to be able t o find out anything further. Advised she could see Dr Farmer in the meantime if needed to discuss options to assist her. 1: 28 PM PDTTelephone Encounter - Ashlie Blevins LPN - 04/23/2020 1:04 PM PDTPhoned patient and left voice mail advising that a referral has already been made to the [facility] for her issues and until she sees them we will not have any further answers for her about her es ophogeal issues and that those issues are not related to anything with sleep so a sleep test is not indicated. el ephone Encounter - Kirk Jacob - 04/23/2020 9:58 AM PDTPatient is wanting to se e about getting a sleep apnea test done to find out if that is causing any problems with her esophagus. Patient is also having shortness of breath. Please advise. Electronically lauren d by Kirk Nolan at 04/23/2020 9:59 AM PDTdocumented in this encounter Plan of Treatment Not on filedocumented as of this encounter Visit Diagnoses Not on filedocumented in this encounter"
--- OUTSIDE RECORDS SUMMARY | ~2020-05-16 | XMS | Encounter Summary ---
Demographics + + + | Address | [address] | | | [place] [address] | + + + | Home Phone | | + + + | Preferred Language | Unknown | + + + | Marital Status | Single | + + + | Yazidism Affiliation | 1013 | + + + | Race | Unknown | + + + | Ethnic Group | Unknown | + + + Author + + + | Author | [facility] | | | and [place] | + + + | Organization | [facility] | | | [...] Providers + +------+ + | Care Senior Recruiter Name | Role | Phone | [...] Description | +--------+---------+ + + + | 09/06/ | Surgery | [facility] | Rodriguez Gómez MD | EGD | | 2019 | | [facility] | [address], [place] | | | | | [address] | [address] [place], [place] | | | | | [place], [place] | [address] | | | | | [address] | | | | | | [phone] | | | +--------+---------+ + + + [...] + + + | Blood Pressure | 102/60 | 09/06/2019 10:45 AM | | | | | PDT | | + + + + + | Pulse | 68 | 09/06/2019 11:00 AM | | | | | PDT | | + + + + + | Temperature | 36.7 C (98.1 F) | 09/06/2019 10:38 AM | | | | | PDT | | + + + + + | Respiratory Rate | 18 | 09/06/2019 10:38 AM | | | | | PDT | | + + + + + | Oxygen Saturation | 98% | 09/06/2019 11:00 AM | | | | | PDT [...] the original. DISCHARGE SUMMARY Patient Name: Cherrie Quijano : 1960 Date of Admission: 09/05/2019 Date [...] endurance Gait instability Consultants: Dr. Gómez of [facility] speech therapy Procedures: 09/06 EGD: [...] in length. Imaging was performed using the [facility] Intelligent Chromo Endoscopy (FICE) system to visualize the [...] was empirically di lated. Prior esophagram in 2016 showed dysmotility, with dilation and small hiatal [...] continually to clear sensation of pharyngeal residue. PATTERNMAKER WOOD recom mends return to soft solids and per GI MD to mechanical soft diet and thin liquids. PATTERNMAKER WOOD disc ussed reflux precautions with regard to timing and posture eating and may also benefit from OP MBS to rule out pharyngeal dysphagia as component to current deficits. PATTERNMAKER WOOD spoke with MD/ RN regarding recommendations. Pt [...] 2 weeks. Specialty: Internal Medicine Contact information: [address] [place] [address] Rodriguez Gómez MD In 2 weeks. Specialty: Gastroenterology Contact information: [address] [place] [id number] Discharge Medications Unchanged Medications Details 5-HTP PO [...] signed by: Demetri Apple MD, 09/07/2019 7:32 [facility] documented in this encounter Discharge Instructions Instructions [...] vomiting, or vomiting blood Date Last Reviewed: 05/22/201619999287-5601 [employer] [address] [place] [address]. All righ ts reserved. This information is [...] You can't be awakened Date Last Reviewed: 09/08/201619990883-9360 [employer] [address] [place] [address]. All righ ts reserved. This information is [...] - 09/06/2019 7:58 AM PDT Gastroenterology Consultation: [facility] 09/06/2019 Cherrie Quijano 58 y.o. [id number] History of present illness: asked to consult on patient for dysphagia is discussed with [facility] room physician 09/05/2019 Anxious talkative female who's [...] Procedure: EGD; Surgeon: Loi Hui MD; Location: [facility] MEDICAL PROCEDURE UNIT UPPER GASTROINTESTINAL ENDOSCOPY N/A 04/05/2019 Procedure: EGD; Surgeon: Loi Hui MD; Location: [facility] MEDICAL PROCEDURE UNIT VEIN SURGERY Social [...] above. CT scan of sinuses and head 2017 noncontributory Assessment: dysphagia both esophageal and oral pharyngeal possible secondary to esophagitis esophageal dysmotility Anxiety possibly contributing to the above Recommendations: upper endoscopy with probable dilatation possible biopsy. Benefits and ri sks procedure explained to the patient she concurs and we'll do the same later today with pr opofol sedation Rodriguez Gómez MD Portions of this chart may have been created with [employer] voice recognition software. Occasi onal wrong-word or sound-alike substitutions may have occurred due to the inherent shannon itations of voice recognition software. Please read the chart carefully and recognize, using context, where these substitutions have occurred hmed, Annette Lugo MD - 09/05/2019 8:45 PM PDT [place], [place] HOSPITALIST HISTORY & PHYSICAL Patient: Cherrie Quijano : 1960: Age: 58 y.o. MedRec: [id number] Admission date: 09/05/2019 Hospital day # : [...] also takes isosorbide dinitrate TID prescribed by PC P for ?esophageal spasms. She was seen [...] Procedure: EGD; Surgeon: Loi Hui MD; Location: [facility] MED[facility] PROCEDURE UN[facility] UPPER GASTROINTESTINAL ENDOSCOPY N/A 04/05/2019 Procedure: EGD; Surgeon: Loi Hui MD; Location: [facility] MEDICAL PROC[facility]URE UN[facility] VEIN SURGERY FAMILY [...] hours as needed for Sandy n. Historical Provider, ascorbic acid (VITAMIN C) 500 mg chewable tablet Take 500 mg by mouth Daily. Historical Provider, bismuth subsalicylate (PEPTO BISMOL) 262 mg chewable tablet Take 524 mg by mouth Daily as needed. Historical Provider, Black Cohosh 540 MG CAPS Take 1 capsule by mouth Daily. Historical Provider, Cyanocobalamin (B-12 PO) Take 1 tablet by mouth Daily. Historical Provider, diphenhydrAMINE (BENADRYL) 25 mg tablet Take 25 mg by mouth nightly as needed for Itching. Historical Provider, ECHINACEA PO Take 1 capsule by mouth Daily. Historical Provider, Ginkgo Biloba (GINKOBA PO) Take 1 capsule by mouth Daily. Historical Provider, isosorbide dinitrate (ISORDIL) 10 mg tablet TAKE 1 TABLET BY MOUTH 3 TIMES DAILY 90 table t James Farmer MD Multiple Vitamin (MULTI-VITAMIN PO) Take 1 tablet by mouth Daily. Historical Provider, Melecio Espino pantoprazole (PROTONIX) 40 mg tablet Take 1 tablet by mouth every morning (before breakfas t). 30 tablet James Farmer MD [facility] PO Take 1 capsule by mouth 3 times daily. Historical Provider, UNABLE TO FIND Take 1-2 capsules by mouth Daily. 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 Electronically signed by: Annette Sanders MD 09/06/2019 5:46 [facility] Portions of this chart may have been created with [employer] voice recognition software. Occasi onal wrong-word or sound-alike substitutions may have occurred due to the inherent shannon itations of voice recognition software. Please read the chart carefully and recognize, using context, where these substitutions have occurred documented in th is encounter Consult Notes Rodriguez Gómez MD - 09/06/2019 7:58 AM PDT Gastroenterology Consultation: [facility] 09/06/2019 Cherrie Quijano 58 y.o. [id number] History of present illness: asked to consult on patient for dysphagia is discussed with [facility] room physician 09/05/2019 Anxious talkative female who's [...] Procedure: EGD; Surgeon: Loi Hui MD; Location: [facility] MEDICAL PROCEDURE UN[facility] UPPER GASTROINTESTINAL ENDOSCOPY N/A 04/05/2019 Procedure: EGD; Surgeon: Loi Hui MD; Location: [facility] PROCEDURE UN[facility] VEIN SURGERY Social [...] this chart may have been created with [employer] voice recognition software. Occasi onal wrong-word or sound-alike substitutions may have occurred due to the inherent shannon itations of voice recognition software. Please read the chart carefully and recognize, using context, where these substitutions have occurred documented in this [facility] ED Notes James Cornejo MD - [...] not drink alcohol or use drugs. Medications CARE SPECIALIST Home Medications Medication Sig 5-Hydroxytryptophan (5-HTP PO) [...] and appropriate, conversant with nurse and s jenny. HEENT: Atraumatic, patient follows me around the [...] found. Medical Decision Making EMS notes and half-way records if applicable/available. Pertinent labs and imaging stud ies were reviewed (see above). Medication and allergy lists reviewed in [facility]. Nursing notes and old records were reviewed if available within [facility]. ER course: 16:06 - Patient care initiated. After introducing myself to the patient, I performed a care ful history and physical examination. This is a 58-year-old female presenting with difficult he swallowing. The patient likely aline dueñas has achalasia or a severe esophageal stricture. [...] 09/06/2019 4:05 PM PDTCase Management Discharge Joselito nning Met with Cherrie at the bedside. She states she was able to eat some applesauce and drink so me water after her She lives in a house in [place] [facility] that is split level with her significant other, Sarah puckett. She does not have any difficulty navigating the stairs. When she has to walk long distances she uses a walking stick. She has a car and drives. Her PCP is Dr. Farmer and she uses [facility] in [place]. Jake will drive her home when she [...] continually to clear sensation of pharyngeal residue. PATTERNMAKER WOOD recom mends return to soft solids and per GI MD to mechanical soft diet and thin liquids. PATTERNMAKER WOOD disc ussed reflux precautions with regard to timing and posture eating and may also benefit from OP MBS to rule out pharyngeal dysphagia as component to current deficits. PATTERNMAKER WOOD spoke with MD/ RN regarding recommendations. Pt [...] no restrictions For more information, please visit: https://www.ncbi.nlm.nih.gov/pubmed/94414646 Cognitive Alert and interactive Voice Intelligible, but perhaps slightly gravelly. She reports other people state she was hoarse Dysphagia Goal Most Recent Value STG Status new, met at 09/06/2019 1537 STG Pt will tolerate least restricted diet with no overt s/sx of airway compromise. at 1537 PATTERNMAKER WOOD Time Calculation PATTERNMAKER WOOD Individual Start Time: 1435 PATTERNMAKER WOOD Individual Stop Time: 1526 PATTERNMAKER WOOD Individual Total Time: 51 PATTERNMAKER WOOD Total Treatment Time: 51 Timed [place] Code Minutes: 0 Electronically signed by: Kelsey Flores, Speech Pathologist, 09/06/2019 15:47 Esophageal stricture [K22.2] Dehydration, severe [E86.0] Unable to eat [F50.89] lan of Care - Karolina Toro RN - 09/06/2019 3:27 PM PDTKarin is alert and oriented x4. She remained free from falls and injury. SBA. Upper endoscopy done today. Complains of head ache.Tylenol given. Speech evaluation done and okayed for dysphagia mechanical. Call light i n reach and pt calls appropriately. p Sofía - Rodriguez Gómez MD - 09/06/2019 10:36 AM PDTUpper endoscopy was remark able for probable short segment of Mares's metaplasia from 35-37 cm. Small hiatal hernia. Enhanced imaging was used to guide biopsies of the distal esophagus. Gastric cavity appea red normal H. pylori biopsy was obtained duodenal biopsies were not obtained his duodenum mu cosa appeared normal. Empiric dilatation with Bautista 50 Danish was done with no mucosal di sruption. [...] Antireflux regimen was stressed to the patient sari king this morning and she should adhere to the same. We will contact her with biopsy results. -C Instructions Provat ion - Rodriguez Gómez MD - 09/06/2019 10:06 AM PDTDischarge Instructions for Upper Endoscopy Patient: Cherrie Quijano : 1960 Acct: [id number] Exam Date: Friday, September 06, 2019 Doctor: [...] If unable to reach your physician, call [facility] Emergency Department at Ext. [phone] Your [...] further information. Dictated and Signed by: Bear Andino | | MD Manny Electronically signed: 09/22/2019 [...] + | Jarek Villela Results In - 09/22/2019 2:31 PM PDT [...] r pylori Ag | | | [facility] | | [...] ST. | [address] | [place] | [phone] | | [facility] | | [address] | | | - LABORATORY | | | | + + + + + ANDERSON (09/06/2019 10:06 AM TIMOTHY) + + | Specimen | + + | | + + + + -+ | Narrative | Performed At | + + -+ | | [facility] | | GastroenterologyPatient Name: Cherrie QuijanoProcedure Date: 09/06/2019 | [facility] | | 10:06 AMMRN: [id number] #: [id number] of : | | | 1Admit Type: InpatientAge: 58Room: Endo Room 1Gender: | | | FemaleNote Status: FinalizedAttending MD: Rodriguez Gómez , | | | MDProcedure: Upper GI endoscopyIndications: | | | Oropharyngeal phase dysphagia, Esophageal dysphagiaProviders: | | | Rodriguez Gómez MD, Martina Velasco RN, Latanya Alfaro | | | MORGAN Munoz, Chacha Bhatia, College Recruiter, Mitch | | | Puneet Hood DO [...] the anesthesiologist and the | | | procurement technician in the endoscopy suite. Mental Status [...] was | | | performed using the [facility] Intelligent Chromo Endoscopy (FICE) | | | [...] AMScope Out: | | | 10:31:19 AM [facility], [address], | | | [place] [address] | | | the duodenum, area of the papilla and third portion of the duodenum. | | | - The retroflexed view confirmed previous findings, | | |Recommendation: | | | - Return patient to hospital [facility] for ongoing care. | | | - [...] |Scope Out: 10:31:19 AM | | | [facility], [address], [place], [place] | | | [address] | | + + -+ + +---------+ + + | Performing | Address | City/State/[facility] Servicescode | Phone Number | | Organization | [...] + | [facility] | [address] | [place], [place] | [phone] | | [facility] | | [address] | | | - LABORATORY | | [...] 13 | 9 - 23 mg/dL | [facility] | | | | | | [facility] | | | | | MEDICAL | | | | | | CENTER - | | | | | | LABORATORY | | + + + + + + | Creatinine | 0.73 | 0.55 - 1.02 | [facility] | [...] mL/min/1.73m2 | [facility] | | | [facility] | RATE,ESTIMATED | | MEDICAL | | | | mL/min/1.20n0Rugk than | | CENTER - | | [...] ST. | [address] | [place], [place] | [phone] | | [facility] | | [address] | | | - LABORATORY | | [...] - Reactive squamous mucosa. | | | DDF:[facility]:C2NR GROSS DESCRIPTION: Two specimens are received [...] component was | | | performed by [facility], [address] [place] [address] | | | (Light Industrial Supervisor: Chely Cm MD; CLIA# [id number]). The professional | | | interpretation was performed by [facility] | | | [place], [facility] [address] [place] [address]. Diagnostician: | | | James Shaver DO Pathologist Electronically Signed 09/07/2019 | | + + + + +---------+ + + | Performing | Address | City/State/[facility] | Phone Number | | Organization | | | | + +---------+ + + | [place] [facility] | | | | | [facility] | | | | + +---------+ + [...] + | [facility] | [address] | [place] | [phone] | | [facility] | | [address] | | | - LABORATORY | | [...] 15 | 9 - 23 mg/dL | [facility] | | | | | | [facility] | | | | | | MEDICAL | | | | | | CENTER - | | | | | | LABORATORY | | + + + + + + | Creatinine | 0.94 | 0.55 - 1.02 | [facility] | [...] mL/min/1.73m2 | [facility] | | | [facility] | RATE,ESTIMATED | | MEDICAL | | | | mL/min/1.40c6Eice than | | CENTER - | | [...] 10.6 (H) | 8.7 - 10.4 | [facility] | | | | | mg/dL | [facility] | | | | | | MEDICAL | | | | | | CENTER - | | | | | | LABORATORY | | + + + + + + | Albumin | 5.3 (H) | 3.2 - 4.8 g/dL | [facility] [...] [address] | [place] | [phone] | | [facility] | | [address] | | | - LABORATORY | | [...] | | | | | M/uL | [facility] | | | | | [...] | | Monocytes | | K/uL | [facility] | | | | | | MEDICAL | | | | | | CENTER - | | | | | | LABORATORY | | + + + + + + | Absolute | 0.06 | 0.00 - 0.40 | [facility] | | | Eosinophils | | K/uL | [facility] | [...] | + + + + + | [facility] | [address] | [place], [place] | [phone] | | [facility] | | [address] | | | - LABORATORY | | [...]
--- OUTSIDE RECORDS SUMMARY | ~2020-05-16 | XMS | Encounter Summary ---
Demographics + + + | Address | [address] | | | [place] [address] | + + + | Home Phone [...] Team Providers + +------+ + | Care Agent Licensing Clerk Name | Role | Phone | [...] Physical | Diagnoses | Darian, | [facility] | | | Services | Therapy [...] | | | | | APPROVED | [address] | [place] [address] | | | | | | Phone: | Phone: | | | | | | [phone] | [phone] | | | | | | Fax: | Fax: | | | | | | [phone] | [phone] | +--------+ + + + + + Encounter Details +--------+---------+ + + + | Date | Type | Department | Care Team | Description | +--------+---------+ + + + | 06/06/ | Office | [facility] | Radha Carranza | Chronic bilateral | | 2019 | Visit | [facility] | D, PT [address] | low back pain | | | | [address] | [place]VE [place], [place] | without sciatica; | | | | [place], [place] | [address] | Impaired functional | | | | [address] | | mobility, balance, | | | | [phone] | | gait, and endurance; | | [...] encounter Progress Notes Radha Carranza, PT - 06/06/2019 2:30 PM PDT [facility] [address] [place] [id number] Physical Therapy Daily Treatment Note Date: 06/06/2019 Patient Information Patient Name: Cherrie Quijano Date of : 1960 Age: 58 y.o. Encounter Diagnoses Code Name Primary? M54.5, G89.29 Chronic bilateral low back pain without sciatica Z74.09 Impaired functional mobility, balance, gait, and endurance R26.81 Gait instability Date of Onset: 04/20/2019 Referring Provider: James Farmer MD Rehab Precautions Office Visit from 05/31/2019 in [facility] Rehab Precautions Precautions ARTF, Seizure Start Time: 1420 Stop time: 1518 Duration: 58 minutes Timed Treatment Codes: 58 minutes # of PT Visits to Date: 2(forgot to enter 1st visit summary at time of initial eval) Subjective: Pt reports that she has been working on improving her sitting and standing posture and work ing on picking up her feel. Says back pain is improved and is mostly in the middle of her lo w back and not radiating down into her thighs. 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 Pain Assessment: Pain Rating Pre Assessment: 5 Pain Rating Post Assessment: 2 Location: middle of low back Objective: Pelvis still asymmetrical but improved from initial eval. MET to help improve symmetry. Supine exercises to improve muscle activation, control, and coordination: -ant/post pelvic tilts x 10 -ball squeezes x 10 w/ cues for symmetrical [...] same exercise w/ red theraband x 10. Standing exercise at // bars: -lateral stretches x 5-6 -heel raises x 10 w/ UE support [...] light touch on bar for stabil ity. Gait training with hiking pole in L hand and initial visual feedback using full length mirr or and then progression to walking in hallway matthew. 200 ft total. Standardized testing: Dynamic Gait Index: Cherrie scored 15/24 on the Dynamic Gait Index (with no assistive device), indicating she is a high fall risk. Gait Level Surface: 2 - Mild impairment, [...] or uses walking aid Vertical Head Turns: 1 - Moderate impairment: performs head turns with moderate change in g ait velocity, slows down, staggers but recovers, can continue to walk Gait Pivot Turn: 2 - Mild impairment: [...] alternating feet, must use rail Total score: 15 Fall Risk: <19 - high fall risk Interpretation: - Predicts fall risk <19 = high fall risk 19-22 = moderate fall risk > 22 = low fall risk <19/24 = predictive of falls in elderly >22/24 = more likely to be safe ambulator For more information, please visit: [email or web address] Timed Up and Go Test: Cherrie scored 11 seconds on the Dokqo-Mg-wnv-Go (with no AD), indicating she is a high fall risk. Interpretation: - Predicts fall risk >11.1 seconds in patient with vestibular disorders = increased fall risk >13.5 seconds in elderly patients = high risk of falls 13.5 seconds for TUG 14.5 seconds for TUG-manual 15 seconds for TUG-cognitive (prediction rates for falls between 87-90%) - Cut-Off Values Predictive of Falls Group Time in Seconds Community dwelling frail older adults >14 sec associated with high fall risk Post-op hip fracture patients at time of discharge >24 sec predictive of falls within 6 mon ths after hip fracture Frail older adults >30 sec predictive of requiring assistive device for ambulation and bein g dependent in ADLs For more information, please visit: [email or web address] Pt issued red theraband and given writtine HEP for the following exercises to be done 1-2x daily initially: -R dorsiflexion/eversion x 10 w/ red theraband -ant/post pelvic tilts x 10 -ball squeezes x 10 -B hip abd/ER w/ red theraband x 10 -bridges x 10 Assessment: Pt demos improving posture and less [...] pain, improve gait pattern and balance. Plan: Progressive dynamic balance program with addition of vestibular/occular exercises. Tr eat pelvic obliquity and lateral shift as needed. Gait training on even and uneven surfaces. Pt only has 2 more approved visits, so will need to request further visits, as pt likely wi ll need extensive therapy. Electronically signed by: Radha Carranza PT, 06/06/2019 17:42 Patient Name: Cherrie Quijano/: 1960/ documented in [...]
--- OUTSIDE RECORDS SUMMARY | ~2020-05-16 | XMS | Encounter Summary ---
Demographics + + + | Address | [address] | | | [place] [address] | + + + | Home Phone [...] + + + | Author | [facility] | | | and [place] | + + + | Organization | [facility] | | | [...] Team Providers + +------+ + | Care Digital Asset Specialist Name | Role | Phone | + +------+ + | James Farmer MD | PCP | | + +------+ + Reason for Visit + +--------+ + | Reason | Onset | Comments | | | Date | | + +--------+ + | Medication Question | 12/08/ | | | | 2019 | | + +--------+ + Encounter Details +--------+ + + + + | Date | Type | Department | Care Team | Description | +--------+ + + + + | 12/08/ | Telephone | [facility] | James Farmer, | Medication Question | 2019 | | [place] [address] [address] | MD [address] | | | | | [place], | [place] | | | | | [place] [address] | [address] | | | | | [phone] | | | +--------+ + + + [...] this encounter Miscellaneous Notes Telephone Encounter - Treva Maldonado - 12/11/2019 11:26 AM PSTSpoke with patient letting her know the medication was sent in for her.Electronically signed by Treva Maldonado at 11/23 11:27 AM PSTTelephone Encounter - Ashlie Blevins LPN - 12/11/2019 8:03 AM PSTPleas e call and advise that medicaiton has been sent for her elephone Encounter - Ashlie Blevins LPN - 12/08/2019 3 :50 PM PSTLast office visit note indicated to return in 4 weeks please advise for refillsEle ctronically signed by Ashlie Blevins LPN at 12/08/2019 3:51 PM PSTTelephone Encounter - Catherine Munoz - 12/08/2019 3:48 PM PSTPatient called wanting to know if she can get her anx iety medication filled or if she needs to be seen to get it filled. Please advise. Booker colbert signed by Catherine Petres at 12/08/2019 3:49 PM PSTdocumented in this encounter Plan of Treatment Not on filedocumented as of this encounter Visit Diagnoses Not on filedocumented in this encounter"
--- OUTSIDE RECORDS SUMMARY | ~2020-05-16 | XMS | Encounter Summary ---
Demographics + + + | Address | [address] | | | [place] [address] | + + + | Home Phone [...] Team Providers + +------+ + | Care Golf Course Architect Name | Role | Phone | + +------+ + | Loi Macdonald MD | PCP | | + +------+ + Reason for Visit + +--------+ + | Reason | Onset | Comments | | | Date | | + +--------+ + | Follow-up | 07/29/ | | | | 2016 | | + +--------+ + Encounter Details +--------+ + + + + | Date | Type | Department | Care Team | Description | +--------+ + + + + | 07/29/ | Telephone | [facility] | Loi Hui MD | Follow-up | | 2016 | | GASTROENTEROLOGY | [address] | | | | | [address] [facility] | [place], [place] | | | | | [address] | [address] | | | | | [address] | [phone] | | | | | [phone] | | | +--------+ + + + [...] this encounter Miscellaneous Notes Telephone Encounter - Buffy Cruz - 07/30/2017 9:23 AM PDTPatient's records from [facility] chart in Epic. Closing.Electronically signed by Buffy Cruz at 07/30 9:24 AM PDTTelephone Encounter - Zarina Ramon RN - 07/29/2017 10:56 AM PDTPatient called to inform us she was hospitalized in [place] for multiple issues, an d that is why she did not make her 07/21 egd/colon with Dr. Hui; she is now on a fluid rest riction and was told to establish with a PCP before she reschedules her procedure; she has a n appointment on 08/[address] Farmer and is going to call and see if she can be seen мария ner so she can get rescheduled for EGD alverto; explained we will request [facility], and that she can call once cleared to proceed to reschedule her egd/colon, she agreed and verbalized understanding; chart with Zarina. documented in this encounter Plan of Treatment Not on filedocumented as of this encounter Visit Diagnoses Not on filedocumented in this encounter"
--- OUTSIDE RECORDS SUMMARY | ~2020-05-16 | XMS | Encounter Summary ---
Demographics + + + | Address | [address] | | | [place] [address] | + + + | Home Phone | | + + + | Preferred Language | Unknown | + + + | Marital Status | Single | + + + | Yarsanism Affiliation | [id number] | + + + | Race | Unknown | + + + | Ethnic Group | Unknown | + + + Author + + + | Author | [facility] | | | and [place] | + + + | Organization | [facility] | | [...] Team Providers + +------+ + | Care Recycling Assistant Name | Role | Phone | [...] | | Services | ogy | | James Dennis MD | Gastroenterol | | | Required | | Pharyngoesop | [address] | [address] | | | | [address] | [address] [place] | [address] | | | | | dysphagia | [place], [place] | [address] [place] | | | | | | [address] | [place], [place] | | | | | | Phone: | [phone] | | | | | | [phone] | Phone: | | | | | | Fax: | [phone] | | | | | | [phone] | Fax: | | | | | | | [phone] | +--------+ + + + + + + + | Scheduling Instructions | + + | Needs upper endoscopy for dysphagia. | + + Reason for Visit + + + | Reason | Comments | + + + | Follow-up | 1 month | + + + Encounter Details +--------+---------+ + + + | Date | Type | Department | Care Team | Description | +--------+---------+ + + + | 10/05/ | Office | [facility] | James Farmer, | Pharyngoesophageal | | 2017 | Visit | MEDICINE [address] | MD [address] | dysphagia (Primary | | | | [place], | [place] | Dx) | | | | [place] [address] | [phone] | | | | | [phone] | | | +--------+---------+ + + + [...] + + + | Blood Pressure | 98/54 | 10/05/2017 8:28 AM | | | | | PST | | + + + + + | Pulse | 90 | 10/05/2017 8:28 AM | | | | | PST | | + + + + + | Temperature | 36.5 C (97.7 F) | 10/05/2017 8:28 AM | | | | | PST | | + + + + + | Respiratory Rate | 16 | 10/05/2017 8:28 AM | | | | | PST | | + + + + + | Oxygen Saturation | 97% | 10/05/2017 8:28 AM | | | | | PST | | + + + + + | Inhaled Oxygen | - | - | | | Concentration | | | | + + + + + | Weight | 80 kg (176 lb 5.9 | 10/05/2017 8:28 AM | | | | oz) | PST | | + + + + + | Height | 157.5 cm (5' 2") | 10/05/2017 8:28 AM | | | | | PST | | + + + + + | Body Mass Index | 32.26 | 10/05/2017 8:28 AM | | | | | PST | | + + + + + documented in this encounter Progress Notes James Farmer MD - 10/05/2017 8:30 AM PSTFormatting of this note might be different f rom the original. Subjective: Patient ID: Cherrie Quijano is a 56 y.o. female. Chief Complaint Patient presents with Follow-up 1 month HPI: This 56-year-old female was having problems with chest pain. We had to distinguish wh ether this is extracardiac pain or other pain. She had a stress test which was normal she d oes have pain with swallowing. Appears that the pain she is having is probably from esophag eal spasm or contractions. We have given her some isosorbide which does decrease some of th e pain she's had swallowing. I would like her to see the GI doctor for an upper endoscopy t o make sure she doesn't have any esophageal lesions. She does a history of anxiety which is stable and she has a history of reflux esophagitis. Past Medical History: Diagnosis Date Anxiety Depression [...] mouth (Patient not marva ing: Reported on 10/05/2017), Disp: , Rfl: fluticasone (FLONASE) 50 mcg/nasal spray, 1 spray by Nasal route 2 times daily., Disp: 16 g, Rfl: 1 isosorbide dinitrate (ISORDIL) 10 mg tablet, TAKE ONE TABLET BY MOUTH THREE TIMES RAVEN Y, Disp: 90 tablet, Rfl: 1 loratadine (CLARITIN) 10 mg tablet, Take 1 [...] Negative. Endo/Heme/Allergies: Negative. Psychiatric/Behavioral: Negative. Objective: BP 98/54 | Pulse 90 | Temp 36.5 C (97.7 F) (Temporal) | Resp 16 | Ht 1.575 m (5' 2" ) | Wt 80 kg (176 lb 5.9 oz) | SpO2 97% | BMI 32.26 kg/m Physical Exam General survey shows no [...] influences. Assessment/Plan: Cherrie was seen today for follow-up. Diagnoses and all orders for this visit: Pharyngoesophageal dysphagia - * [facility] Gastroenterology - AMB Referral We will continue her isosorbide until she sees the GI doctor. If they have a better recomm endation for esophageal spasms I would be open to that. I would like to make certain she do esn't have any esophageal lesions. Return in about 4 weeks (around 2017).Electronically signed by MD debbie Rolon 10/05/2017 9:04 AM PSTdocumented in this encounter Plan of Treatment + + +--------+ + + | Name | Type | Priori | Associated Diagnoses | Order Schedule | | | | ty | | | + + +--------+ + + | * [facility] | Outpatient | Routin | Pharyngoesophageal | Ordered: 10/05/2017 | | Gastroenterology - | Referral | e | dysphagia | | | AMB Referral | | | | | + + +--------+ + + documented as of this encounter Visit Diagnoses + + | Diagnosis | + + | Pharyngoesophageal dysphagia - Primary Dysphagia, pharyngoesophageal phase | + + documented in this encounter
--- OUTSIDE RECORDS SUMMARY | ~2020-05-16 | XMS | Encounter Summary ---
Demographics + + + | Address | [address] | | | [place] [address] | + + + | Home Phone [...] Team Providers + +------+ + | Care Basket Maker Name | Role | Phone | + +------+ + | James Farmer MD | PCP | | + +------+ + Reason for Visit +---------+--------+ + | Reason | Onset | Comments | | | Date | | +---------+--------+ + | Results | 02/05/ | | | | 2019 | | +---------+--------+ + Encounter Details +--------+ + + + + | Date | Type | Department | Care Team | Description | +--------+ + + + + | 02/05/ | Telephone | [facility] | James Farmer, | Results | | 2019 | | MEDICINE [address] | [address] | | | | | [place], | [place] | | | | | [place] [address] | [id number] | | | | | [phone] | | | +--------+ + + + [...] Telephone Encounter - Ashlie Blevins LPN - 02/06/2020 1:26 PM PDTPhoned patient and advi sed per doctor if the diltiazem is helping her its ok to continue. She has already discussed the results of her testing with GI and has been referred to [place] elephone Encounter - Ashlie Blevins LPN - 02/06/2020 12:45 PM PDTIs she to continue with diltiazem? elephone Encounter - Isamar Mcclure - 02/06/2020 1 1:59 AM PDTPatient called asking to speak with the nurse. Patient is wanting to get the res ults of the recent study she had on her esophagus. She is also wanting to know about contin uing to take the diltiazem. Please call patient to advise. documented in this encounter Plan of Treatment Not on filedocumented as of this encounter Visit Diagnoses Not on filedocumented in this encounter"
--- OUTSIDE RECORDS SUMMARY | ~2020-05-16 | XMS | Encounter Summary ---
Demographics + + + | Address | [address] | | | [place] [address] | + + + | Home Phone [...] + + + | Author | [facility] | | | and [place] | + + + | Organization | [facility] [...] Team Providers + +------+ + | Care Can Marker Name | Role | Phone | + +------+ + | James Farmer MD | PCP | | + +------+ + Reason for Visit + + + | Reason | Comments | + + + | Follow-up | | + + + Evaluate & [...] [place], | | | | | | [address] | [place] [address] | | | | | | Phone: | Phone: | | | | | | [phone] | [phone] | | | | | | Fax: | Fax: | | | | | | [phone] | [phone] | +--------+ + + + + + Encounter Details +--------+---------+ + + + | Date | Type | Department | Care Team | Description | +--------+---------+ + + + | 02/05/ | Office | [facility] [place] | James Farmer, | Esophagogastric | | 2020 | Visit | GASTROENTEROLOGY | MD Juanita FUNK | junction outflow | | | | [address] [place] | [place], [place] | obstruction (Primary | | | | [address] [place], [place] | [phone] | Dx); Dysphagia, | | | | [address] | | unspecified type | | | | [phone] | [facility], | | | | | | KELLY Escalante [address] | | | | | | [place], [address] | | | | | | [place], [place] | | | | | | [address] | | | | | | | [...] + + + | Blood Pressure | 116/62 | 02/06/2020 7:53 AM | | | | | PDT | | + + + + + | Pulse | 98 | 02/06/2020 7:53 AM | | | | | PDT | | + + + + + | Temperature | 36.8 C (98.2 F) | 02/06/2020 7:53 AM | | | | | PDT | | + + + + + | Respiratory Rate | 16 | 02/06/2020 7:53 AM | | | | | PDT | | + + + + + | Oxygen Saturation | 98% | 02/06/2020 7:53 AM | | | | | PDT | | + + + + + | Inhaled Oxygen | - | - | | | Concentration | | | | + + + + + | Weight | 73.1 kg (161 lb 2.5 | 02/06/2020 7:53 AM | | | | oz) | PDT | | + + + + + | Height | - | - | | + + + + + | Body Mass Index | 28.55 | 12/30/2019 10:04 AM | | | | | PST | | + + + + + documented in this encounter Patient Instructions Patient Instructions Ava Chi ARNP - 02/06/2020 8:00 AM PDTWill refer to [place] due to esophagogastric outlet obstruction. If you need to have esophagus dilated, please call. We could have EGD done here while waitteresa cloud for appointment in [place]. Electronically signed by KELLY Camarena at 020 8:23 AM PDT documented in this encounter Progress Notes Ava Chi ARNP - 02/06/2020 8:00 AM PDTFormatting of this note might be differe nt from the original. PATIENT NAME: Cherrie Quijano : 1960: AGE: 59 y.o. REFERRED BY: James Farmer MD PRIMARY CARE: James Farmer MD Subjective: CHIEF COMPLAINT: Cherrie Quijano is a 59 y.o. female is here for a follow up. She is being seen today f or follow up manometry due to dysphagia. HISTORY OF PRESENT ILLNESS: Patient reports that she has not been able to swallow anything "normal" or some time. She h as to strain out mushroom and chicken out of creamed soups. She feels like that the dilation of her esophagus may help some. She reports that she has been needing to strain her soups d ue to dysphagia. She has been taking diltiazem and pantoprazole. This does not seem to be helping much. She is here to discuss results of EGD and manometry. 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 new diagnosis so repeat egd in 1 year 08/2020 Depression with anxiety Dysphagia 06/16/2017 GERD (gastroesophageal reflux disease) Seizure (HCC) Tertiary contraction of esophagus Wears partial dentures upper Past Surgical History: Procedure Laterality Date GASTRIC MANOMETRY N/A 01/31/2020 Procedure: MANOMETRY ESOPHAGEAL; Surgeon: Nishant Arceo MD; Location: [facility] GI MANOMETRY 02/05/2020 UPPER GASTROINTESTINAL ENDOSCOPY N/A 11/30/2017 Procedure: EGD; Surgeon: Loi Hui MD; Location: [facility] UPPER GASTROINTESTINAL ENDOSCOPY N/A 04/05/2019 Procedure: EGD; Surgeon: Loi Hui MD; Location: [facility] UPPER GASTROINTESTINAL ENDOSCOPY N/A 09/06/2019 Procedure: EGD; Surgeon: Rodriguez Gómez MD; Location: [facility] VEIN SURGERY Family History Problem Relation Age of Onset Heart disease Paternal Grandmother Heart attack Paternal Grandmother High blood pressure Paternal Grandmother Diabetes Paternal Grandfather Depression Paternal Grandfather Social History Socioeconomic History Marital status: Single Spouse name: Not on file Number of children: Not on file Years of education: Not on file Highest education level: Not on file Occupational History Not on file Social Needs Financial resource strain: Not on file Food insecurity: Worry: Not on file Inability: Not on file Transportation needs: Medical: Not on file Non-medical: Not on file Tobacco Use Smoking status: Never Smoker Smokeless tobacco: Never Used Substance and Sexual Activity Alcohol use: No Alcohol/week: 0.0 standard drinks Drug use: Never Sexual activity: Not on file Comment: Not on file Lifestyle Physical activity: Days per week: Not on file Minutes per session: Not on file Stress: Not on file Relationships Social connections: Talks on phone: Not on file Gets together: Not on file Attends jainism service: Not on file Active member of club or organization: Not on file Attends meetings of clubs or organizations: Not on file Relationship status: Not on file Intimate partner violence: Fear of current or ex partner: Not on file Emotionally abused: Not on file Physically abused: Not on file Forced sexual activity: Not on file Other Topics Concern Not on file Social History Narrative Not on file Review of Systems Constitutional: Negative for chills, fever and unexpected weight change. Respiratory: Negative for cough, shortness of breath and wheezing. Cardiovascular: Negative for chest pain, palpitations and leg swelling. Gastrointestinal: Negative except as stated above Objective: Physical Exam Vitals signs and nursing note reviewed. Constitutional: General: She is not in acute distress. Appearance: She is well-developed. HENT: Head: Normocephalic and atraumatic. Eyes: General: No scleral icterus. Musculoskeletal: Normal range of motion. General: No deformity. Skin: General: Skin is warm and dry. Findings: No rash. Neurological: Mental Status: She is alert and oriented to person, place, and time. Psychiatric: Speech: Speech normal. Behavior: Behavior normal. No visits with results within 1 Month(s) from this visit. Latest known visit with results is: Admission on 09/05/2019, Discharged on 09/06/2019 Component Date Value Ref Range Status WBC 09/05/2019 6.7 4.0 - 11.0 K/uL Final RBC 09/05/2019 5.34* 3.70 - 5.20 M/uL Final Hemoglobin 09/05/2019 15.0 11.5 - 16.0 g/dL Final Hematocrit 09/05/2019 44.9 34.0 - 47.0 % Final MCV 09/05/2019 84.1 83.0 - 101.0 fL Final MCH 09/05/2019 28.1 28.0 - 35.0 pg Final MCHC 09/05/2019 33.4 32.0 - 36.0 g/dL Final RDW-CV 09/05/2019 12.9 <15.0 % Final RDW-SD 09/05/2019 39.2 35.1 - 46.3 fL Final Platelet Count 09/05/2019 218 140 - 440 K/uL Final MPV 09/05/2019 10.1 6.5 - 12.4 fL Final % Neutrophils 09/05/2019 66.9 45.0 - 82.0 % Final % Lymphocytes 09/05/2019 25.6 20.0 - 45.0 % Final % Monocytes 09/05/2019 5.2 4.0 - 12.0 % Final % Eosinophils 09/05/2019 0.9 0.0 - 5.0 % Final % Basophils 09/05/2019 1.3* 0.0 - 1.0 % Final % Immature Granulocytes 09/05/2019 0.1 0.0 - 0.4 % Final Absolute Neutrophils 09/05/2019 4.47 1.80 - 8.50 K/uL Final Absolute Lymphocytes 09/05/2019 1.71 0.60 - 3.20 K/uL Final Absolute Monocytes 09/05/2019 0.35 0.00 - 1.00 K/uL Final Absolute Eosinophils 09/05/2019 0.06 0.00 - 0.40 K/uL Final Absolute Basophils 09/05/2019 0.09 0.00 - 0.10 K/uL Final Absolute Immature Granulocytes 09/05/2019 0.01 0.00 - 0.03 K/uL Final % nRBC 09/05/2019 0 0 - 2 per 100 WBCs Final Absolute nRBC 09/05/2019 0.00 0.00 - 0.01 K/uL Final Na 09/05/2019 138 136 - 145 mmol/L Final K 09/05/2019 4.1 3.4 - 5.1 mmol/L Final Cl 09/05/2019 101 98 - 107 mmol/L Final CO2 09/05/2019 27 20 - 31 mmol/L Final Anion Gap 09/05/2019 10 3 - 16 mmol/L Final Glucose 09/05/2019 127* 60 - 106 mg/dL Final BUN 09/05/2019 15 9 - 23 mg/dL Final Creatinine 09/05/2019 0.94 0.55 - 1.02 mg/dL Final eGFR if not 09/05/2019 >60 >=60 mL/min/1.73m2 Final GLOMERULAR FILTRATION RATE,ESTIMATED mL/min/1.73m2 Less than 60 Chronic kidney disease,if found over a 3-month period. Less than 15 Kidney failure For Americans,multiply the calculated GFR by 1.21. Calcium 09/05/2019 10.6* 8.7 - 10.4 mg/dL Final Albumin 09/05/2019 5.3* 3.2 - 4.8 g/dL Final Bilirubin Total 09/05/2019 0.7 0.3 - 1.2 mg/dL Final Total Protein 09/05/2019 8.3* 5.7 - 8.2 g/dL Final AST 09/05/2019 26 0 - 34 U/L Final ALT 09/05/2019 27 10 - 49 U/L Final Alkaline Phosphatase 09/05/2019 111 46 - 116 U/L Final Globulin 09/05/2019 3.0 2.1 - 3.8 g/dL Final Albumin/Globulin Ratio 09/05/2019 1.8 0.8 - 1.9 Final BUN/Creatinine Ratio 09/05/2019 16.0 Final Lipase 09/05/2019 41 12 - 53 U/L Final New method in use as of January 18, 2019. Check reference range for changes. Some analytes show significant variation from the previous method. It may be necessary to set a new baseline for this analyte. Na 09/06/2019 140 136 - 145 mmol/L Final K 09/06/2019 3.8 3.4 - 5.1 mmol/L Final Cl 09/06/2019 106 98 - 107 mmol/L Final CO2 09/06/2019 26 20 - 31 mmol/L Final Anion Gap 09/06/2019 8 3 - 16 mmol/L Final Glucose 09/06/2019 101 60 - 106 mg/dL Final BUN 09/06/2019 13 9 - 23 mg/dL Final Creatinine 09/06/2019 0.73 0.55 - 1.02 mg/dL Final eGFR if not 09/06/2019 >60 >=60 mL/min/1.73m2 Final GLOMERULAR FILTRATION RATE,ESTIMATED mL/min/1.73m2 Less than 60 Chronic kidney disease,if found over a 3-month period. Less than 15 Kidney failure For Americans,multiply the calculated GFR by 1.21. Calcium 09/06/2019 9.8 8.7 - 10.4 mg/dL Final BUN/Creatinine Ratio 09/06/2019 17.8 Final Extra Lavender Top Tube 09/06/2019 Done Final Helicobacter pylori Ag 09/06/2019 Negative Negative Final Assessment: 1. Esophagogastric junction outflow obstruction Ambulatory referral to Gastroenterology (candelaria otoole) 2. Dysphagia, unspecified type Plan: Patient to be referred to [facility] due to EGJ outlet obstruction found on manometry. She is to continue with diltiazem and Protonix as prescribed. She is to call if she needs an EGD with dilation to help manage symptoms of dysphagia. Will follow up with results. Patient is to call with any question or concerns. Any fevers, chills, chest pain, SOB or other serious symptoms patient is to call the office or go to ER . CC: James Farmer MD This note was dictated using voice recognition software. Please contact me if there are an y questions regarding its content.Electronically signed by KELLY Camarena at 02/05 6:34 PM PDTdocumented in this encounter Plan of Treatment Not on filedocumented as of this encounter Visit Diagnoses + + | Diagnosis | + + | Esophagogastric junction outflow obstruction - Primary | + + | Dysphagia, unspecified type | + + documented in this encounter
--- OUTSIDE RECORDS SUMMARY | ~2020-05-16 | XMS | Encounter Summary ---
Demographics + + + | Address | [address] | | | [place] [address] | + + + | Home Phone [...] + + + | Author | [facility] | | | and [place] | + + + | Organization | [facility] | | | and [...] Team Providers + +------+ + | Care Cool Roofing Installer Name | Role | Phone | + +------+ + PCP | Unavailable | + +------+ + Encounter Details +--------+ + + + + | Date | Type | Department | Care Team | Description | +--------+ + + + + | 03/15/ | Hospital | [facility] | | | | 1998 | Encounter | [facility] | | | | | | CENTER [address] | | | | | | [place] | | | | | | [address] | | | | | | [phone] | | | +--------+ + + + [...]
--- OUTSIDE RECORDS SUMMARY | ~2020-05-16 | XMS | Encounter Summary ---
Demographics + + + | Address | [address] | | | [place] [address] | + + + | Home Phone [...] Team Providers + +------+ + | Care Strip Stamp Straightener Name | Role | Phone | + +------+ + | No, Physician | PCP | Unavailable | + +------+ + Reason for Visit + +--------+ + | Reason | Onset | Comments | | | Date | | + +--------+ + | Medication Refill | 05/20/ | | | Assistance | 2016 | | + +--------+ + Encounter Details +--------+ + + + + | Date | Type | Department | Care Team | Description | +--------+ + + + + | 05/20/ | Telephone | [facility] | Luis Escobar MD | Medication Refill | | 2016 | | OTOLARYNGOLOGY [address] | [address] [facility] | Assistance | | | | [facility] [address] | [address] [place], | | | | | [place] | [place] [address] | | | | | [address] | [phone] | | | | | [phone] | | | +--------+ + + + [...] Telephone Encounter - Janeth Stone RN - 05/20/2017 9:49 AM MORGAN Morrow from [facility] ent Care to follow up that patient is receiving enough omeprazole until 06/10/17 follow up [facility] Dr. Escobar, Sr. RN called in to [facility] enough for omeprazole TWICE DAILY til 05/22 07/08. Will addend to fill until 06/10/17 appointment so patient doesn't run out. RN ask if raman bailey had procedure scheduled, but there isn't one scheduled at this time.Electronically sig hunter by Janeth Stone RN at 05/20/2017 9:52 AM PDTdocumented in this encounter Plan of Treatment Not on filedocumented as of this encounter Visit Diagnoses Not on filedocumented in this encounter"
--- OUTSIDE RECORDS SUMMARY | ~2020-05-16 | XMS | Encounter Summary ---
Demographics + + + | Address | [address] | | | [place] [address] | + + + | Home Phone | | + + + | Preferred Language | Unknown | + + + | Marital Status | Single | + + + | Mormonism Affiliation | 1013 | + + + [...] Team Providers + +------+ + | Care Broomcorn Thresher Name | Role | Phone | + [...] + + | 10/17/ | Office | [facility] | James Farmer, | Esophageal | | 2018 | Visit | MEDICINE [address] | [address] | dysmotility (Primary | | | | [place], | [place] | Dx); | | | | [place] [address] | [phone] | Gastroesophageal | | | | [phone] | | reflux disease, | | | [...] + | Blood Pressure | 112/62 | 10/17/2019 7:56 AM | | | | | PST | | + + + + + | Pulse | 90 | 10/17/2019 7:56 AM | | | | | PST | | + + + + + | Temperature | 36.7 C (98.1 F) | 10/17/2019 7:56 AM | | | | | PST | | + + + + + | Respiratory Rate | 18 | 10/17/2019 7:56 AM | | | | | PST | | + + + + + | Oxygen Saturation | 97% | 10/17/2019 7:56 AM | | | | | PST | | + + + + + | Inhaled Oxygen | - | - | | | Concentration | | | | + + + + + | Weight | 78.9 kg (173 lb 15.1 | 10/17/2019 7:56 AM | | | | oz) | PST | | + + + + + | Height | - | - | | + + + + + | Body Mass Index | 30.81 | 09/05/2019 8:02 PM | | | | | PDT | | + + + + + documented in this encounter Progress Notes James Farmer MD - 10/17/2019 8:00 AM PSTFormatting of this note might be different f rom the original. Subjective: Patient ID: Cherrie Quijano is a 58 y.o. female. Chief Complaint Patient presents with Follow-up 1 month HPI: 58-year-old female who is here to follow-up. She has been having trouble swallowing s he has a little bit of globus about the swallowing now. She says she thinks about swallowin g certain things and she feels like her throat clamps down tight. She feels like it is in t he bottom of her neck area. She says she has thrown up food when this happens she has had d ifficulty swallowing pills. She is getting worse she says almost everything she eats now do es not want to pass through her esophagus. She has had a recent videofluoroscopy of her upp er esophagus. This showed no aspiration and what appeared to be normal swallowing mechanism and her oral pharyngeal phase of swallowing. She also had a esophagram done about 2 years ago which showed no significant abnormality. She has had an upper endoscopy which showed no mechanical obstruction. We discussed this today I think she has tried isosorbide to see if this would make a difference it does not appear to have made a difference. She is tried so me antianxiety medicines which make her sleepy but she does not feel like this helps her eso phagus and swallowing very much. She is anxious about this this is causing her some depress ion. We discussed this again today I think we still should try other medications possibly s ome dicyclomine to see if this decreases any sensation of spasm she is having in her esophag us. Also I would like to repeat her esophagram to see if she has any evidence of achalasia or muscular contraction abnormalities starting. Also we may consider doing a manometry to s if she has undetected muscle spasms in her esophagus. She may need to see a swallowing s pecialist if this does not improve. 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 09/06/2019 new diagnosis so repeat egd in 1 year 08/2020 Depression with anxiety Dysphagia 06/16/2017 GERD (gastroesophageal reflux disease) Seizure (HCC) Wears partial dentures upper Past Surgical History: Procedure Laterality Date UPPER GASTROINTESTINAL ENDOSCOPY N/A 11/30/2017 Procedure: EGD; Surgeon: Lio Hui MD; Location: [facility] UPPER GASTROINTESTINAL ENDOSCOPY N/A 04/05/2019 Procedure: EGD; Surgeon: Loi Hui MD; Location: [facility] UPPER GASTROINTESTINAL ENDOSCOPY N/A 09/06/2019 Procedure: EGD; Surgeon: Rodriguez Gómez MD; Location: [facility] VEIN SURGERY Patient Active Problem List Diagnosis Date Noted POA GERD (gastroesophageal reflux disease) 11/30/2017 Unknown Priority: Medium Reduced mobility 10/09/2019 Unknown Weakness of both [...] Respiratory: Negative. Cardiovascular: Negative. Gastrointestinal: Positive for heartburn and vomiting. Genitourinary: Negative. Musculoskeletal: Negative. Skin: Negative. Neurological: Negative. Endo/Heme/Allergies: Negative. Psychiatric/Behavioral: Positive for depression. Objective: BP 112/62 | Pulse 90 | Temp 36.7 C (98.1 F) (Temporal) | Resp 18 | Wt 78.9 kg (173 lb 15.1 oz) | LMP (LMP Unknown) | SpO2 97% | No | BMI 30.81 kg/m Physical Exam General survey shows no [...] all orders for this visit: Esophageal dysmotility - [place] Esophagram Complete; Future Gastroesophageal reflux disease, esophagitis presence not specified - [place] Esophagram Complete; Future Pharyngoesophageal dysphagia Other orders - dicyclomine (BENTYL) 10 mg/5 mL liquid; Take 10 mLs by mouth Twice daily as needed ( difficulty swallowing). 1. We will get a an esophagram 2. We will have her try some dicyclomine 1/2-hour before her meals at least twice a day. If this works well we can increase this to 3 times a day 3. We will consider antianxiety/antidepressant medications. Return in about 6 weeks (around 11/28/2019) for Routine Follow-Up (30 min).Electronically sig hunter by James Farmer MD at 10/17/2019 8:38 AM PSTdocumented in this encounter Plan of Treatment Not on filedocumented as of this encounter Results [place] Esophagram Complete (11/16/2019 [...] | and 09/22/2019 TECHNIQUE: After obtaining a precision machinist image, the | | | patient consumed [...] swallowingCOMPARISON: 04/27/2017 and 09/22/2019TECHNIQUE: After obtaining a precision machinist image, | | the patient consumed effervescentcrystals [...] presence not specified | + + | Pharyngoesophageal dysphagia Dysphagia, pharyngoesophageal phase | + + documented in this encounter"
--- OUTSIDE RECORDS SUMMARY | ~2020-05-16 | XMS | Encounter Summary ---
Demographics + + + | Address | [address] | | | [place] [address] | + + + | Home Phone | | + + + | Preferred Language | Unknown | + + + | Marital Status | Single | + + + | Pentecostal Affiliation | 1013 | + + + | Race | Unknown | + + + | Ethnic Group | Unknown | + + + Author + + + | Author | [facility] | | | and [place] | + + + | Organization | [facility] | | [...] Team Providers + +------+ + | Care Jewel Sawyer Name | Role | Phone | + +------+ + | James Farmer MD | PCP | | + +------+ + Reason for Visit + +--------+ + | Reason | Onset | Comments | | | Date | | + +--------+ + | ER Follow-up | 04/12/ | Throat issues | | | 2019 | | + +--------+ + Encounter Details +--------+ + + + + | Date | Type | Department | Care Team | Description | +--------+ + + + + | 04/12/ | Telephone | [facility] | James Farmer, | ER Follow-up (Throat | | 2019 | | MEDICINE [address] | [address] | issues ) | | | | [place], | [place] | | | | | [place] [address] | [phone] | | | | | [phone] | | | +--------+ + + + [...] this encounter Miscellaneous Notes Telephone Encounter - Stephanie Valles RN - 04/12/2020 10:52 AM PDTCalled patient. Informed her that there are no openings in Dr. Farmer's schedule before her appointment o n 04/19/20. Spoke with her about continuing to reach out to her GI doctor as mentioned by the ED physic eris. Discussed the use of the ativan, which is taking at night to help her sleep. Recommended th at she take a day where she stays home to try the ativan in the morning so it can help with her anxiety about swallowing during the day time. Advised patient to seek care at the UC or ED if she can not manage her concerns at home bef ore her appointment with Dr. Farmer. elephone Encounter - Isamar Mcclure - 04/12/2020 10:18 AM PDTPat ient called wanting to speak with the nurse. She stated she was in the ER yesterday for eso phagus problems and the only thing they did was give her some Ativan for sleep. She stated she is dehydrated and malnourished as she cannot keep anything down. Please call patient at [phone]. documente d in this encounter Plan of Treatment Not on filedocumented as of this encounter Visit Diagnoses Not on filedocumented in this encounter"
--- OUTSIDE RECORDS SUMMARY | ~2020-05-16 | XMS | Encounter Summary ---
Demographics + + + | Address | [address] | | | [place] [address] | + + + | Home Phone [...] Team Providers + +------+ + | Care Fashion Supervisor Name | Role | Phone | [...] | | | | | | | ([facility]) | | | | | | [...] Description | +--------+---------+ + + + | 11/30/ | Surgery | [facility] | Loi Hui MD | EGD | | 2018 | | MED CTR MP INTRA OP | [address] | | | | | [address] | [place], [place] | | | | | [place], [place] | [address] | | | | | [address] | [phone] | | | | | [phone] | | | +--------+---------+ + + + [...] + + + | Blood Pressure | 125/67 | 11/30/2017 12:28 PM | | | | | PST | | + + + + + | Pulse | 81 | 11/30/2017 12:28 PM | | | | | PST | | + + + + + | Temperature | 36.1 C (97 F) | 11/30/2017 12:28 PM | | | | | PST | | + + + + + | Respiratory Rate | 16 | 11/30/2017 12:28 PM | | | | | PST | | + + + + + | Oxygen Saturation | 98% | 11/30/2017 12:28 PM | | | [...] the physician who did your procedure at [phone] if you have any questions or experience any of the following: ? Increasing abdominal pain, nausea, or vomiting. ? Chills and fever over 101F. ? New abdominal swelling or bloating. ? Signs of rectal bleeding (black or red stool). If you cannot get a hold of your physician, then call the [facility] [phone] . If necessary, report to the Emergency Department at [facility]. Quit smoking: If you smoke or [...] Loi Hui MD at 11/30/2017 1:50 PM PSTLoi Hui MD - 11/25/2017 2:31 PM PST PRE-ENDOSCOPY [...] Electronically Signed by: Loi Hui MD 11/25/2017 [facility] Portions of this chart may have been created with Tasqe voice recognition software. Occasi onal wrong-word or [...] Endoscopy Patient: Cherrie Quijano : 1960 Acct: [id number] Exam Date: Thursday, November 30, 2017 Doctor: [...] If unable to reach your physician, call [facility] Emergency Department at [address] [...] | [facility] | | GastroenterologyPatient Name: Cherrie Keithure Date: 11/30/2017 | PROVATION | | 1:43 PMMRN: [id number] #: [id number] of : | | | 1Admit Type: AmbulatoryAge: 57Room: [facility] 02Gender: | | | FemaleNote [...] the anesthesiologist and the | | | home theatre technician in the pre-procedure area in the [...] PMScope Out: | | | 2:03:14 PM [facility], [address] [place] [address], | | | [place] [address] | | | patient. Return to normal [...] |Scope Out: 2:03:14 PM | | | [facility], [address] [place] [address], [place], [place] | | | [address] | | + + -+ + +---------+ [...] | 1.010, 1.015, | | | | [place], | | 1.020, 1.025 | | | [...] | 0.69 | 0.60 - 1.30 | [facility] | | | | | mg/dL | [facility] | | | | | | MEDICAL | | | | | | CENTER - | | | | | | LABORATORY | | + + + + + + | eGFR if not | >60Comment: GLOMERULAR | >=60 | [facility] | | | | FILTRATION | mL/min/1.73m2 | [facility] | | | TONGAN | RATE,ESTIMATED | | MEDICAL | | | | mL/min/1.69w9Pzeu than | | CENTER - | | [...] | | | | | mg/dL | [facility] | | | | | | [...] + | [facility] | [address] | [place] | [phone] | | [facility] | | [address] | | | - LABORATORY | | | | + + + + + Surgical Pathology Exam (11/30/2017 12:00 AM PST) + + | Specimen | + + | | + + + + + | Narrative | Performed At | + + + | SPECIMEN(S): A GASTRIC BIOPSY SPECIMEN(S): B GE JUNCTION | [facility] | | SPECIMEN SOURCE: A. GASTRIC [...] | intestinal) metaplasia. - Negative for dysplasia. JANINA:qiana:C2NR | | | GROSS DESCRIPTION: Received in [...] | | | submitted, all in (B1). ka:JANINA:qiana PERFORMING LABORATORY: Tissue | | | processing and slide preparation were performed by [facility] [facility] | | | [place], [address], [place] [address] | | | (Justice Of The Peace: Neno Díaz M.D. CLIA#: [id number]). | | | Professional interpretation was performed by [facility], | | | [facility], [address] | | | [place] [address] (Justice Of The Peace: Neno Díaz M.D.; CLIA#: | | | [id number]). Diagnostician: Neno Díaz MD Pathologist | | [...] filedocumented in this encounter Administered Medications + +--------+---------+------+------+------+ [...] PST | | | | | Starting e 11/30/17 at 1411, For | | | [...]
--- OUTSIDE RECORDS SUMMARY | ~2020-05-16 | XMS | Encounter Summary ---
Demographics + + + | Address | [address] | | | [place] [address] | + + + | Home Phone [...] Organization | [facility] [...] Team Providers + +------+ + | Care Chief Enterprise Architect Name | Role | Phone | + +------+ + | James Farmer MD | PCP | | + +------+ + Reason for Visit +--------+--------+ + | Reason | Onset | Comments | | | Date | | +--------+--------+ + | Other | 04/11/ | | | | 2019 | | +--------+--------+ + Encounter Details +--------+ + + + + | Date | Type | Department | Care Team | Description | +--------+ + + + + | 04/11/ | Telephone | [facility] | Nishant Arceo | Other | | 2019 | | GASTROENTEROLOGY | MD Tang [address] | | | | | [address] | [facility] | | | | | [address] | [facility] [place] [address] | | | | | [address] | [phone] | | | | | [phone] | | | +--------+ + + + [...] Encounter - Berna Esqueda RN - 04/16/2020 3:14 PM PDTSee 04/05 phone note elephone Encount er - Kurt Perez - 04/12/2020 10:26 AM PDTName of Caller:Cherrie Quijano Name of Patient:Cherrie Quijano Reason for call: Patient called and wanted to speak with the clinical staff in regards to h er ER visit yesterday and stated that she can't keep food down/ dehydrated/ malnourished. Denys bailey doesn't know what to do. Routing to clinical staff. Provider/Nurse: Dr. Asad Coronel Call back number:[phone] elephone Encounter - Kurt Lorenz - 04/11/2020 4:54 PM PDTName of Caller:Cherrie Quijano Name of Patient:Cherrie Quijano Reason for call: Patient called and wanted to talk to Berna and informed patient that Dwain laird is not in clinic. Pt states that she feels horrible and still can't keep food down. Feels like Botox had something to do with it. Provider/Nurse: Dr. Marielos Coronel Call back number: [phone] documented in this encou nter Plan of Treatment Not on filedocumented as of this encounter Visit Diagnoses Not on filedocumented in this encounter"
--- OUTSIDE RECORDS SUMMARY | ~2020-05-16 | XMS | Encounter Summary ---
Demographics + + + | Address | [address] | | | [place] [address] | + + + | Home Phone [...] Team Providers + +------+ + | Care Anodizing Line Operator Name | Role | Phone | [...] + | 12/09/ | Telephone | [facility] | James Lama, | Referral | | 2017 | | CARE [address] | [address] | | | | | [place] | [place] | | | | | [address] | [address] | | | | | [phone] | | | +--------+ + + + [...] encounter Miscellaneous Notes Telephone Encounter - Adalberto Mazariegos CMA - 12/09/2017 11:52 AM PSTPatient calling stating she is not improving and she is still having symptoms and would like a referral to ENT and a CT per Dr. Lama's suggestions. I saw that note on the encounter but Dr. Lmaa is out of the office for a while so I sugg ested her to call her PCP and see if he is willing to order CT and referral and if not to gi ve us a call back and see if one of our doctors are willing to make those orders or if she n eeds to be seen again first. documented in this en counter Plan of Treatment Not on filedocumented as of this encounter Visit Diagnoses Not on filedocumented in this encounter"
--- OUTSIDE RECORDS SUMMARY | ~2020-05-16 | XMS | Encounter Summary ---
Demographics + + + | Address | [address] | | | [place] [address] | + + + | Home Phone [...] Team Providers + +------+ + | Care Mixing Technician Name | Role | Phone | + +------+ + | No, Physician | PCP | Unavailable | + +------+ + Reason for Visit +--------+--------+ + | Reason | Onset | Comments | | | Date | | +--------+--------+ + | Other | 05/10/ | Patient was following up on a referral to Dr. Escobar for | | | 2016 | ENT. Please return call with update. | +--------+--------+ + Encounter Details +--------+ + + + + | Date | Type | Department | Care Team | Description | +--------+ + + + + | 05/10/ | Telephone | [facility] | Meng Talley | Other (Patient was | | 2016 | | CARE [address] | [address] | following up on a | | | | [place] | [place] | referral to Dr. | | | | [address] | [address] | Shawn [place] | | | | [phone] | | Please return call | | | | | | with update.) | +--------+ + + + + Social [...] Telephone Encounter - Adalberto Mazariegos CMA - 05/17/2017 8:35 AM PDTCalled patient and gave her the message. She verbalized understanding and thanked me for the call.Electronically sig hunter by Adalberto Mazariegos CMA at 05/17/2017 8:38 AM PDTTelephone Encounter - Adalberto Mazariegos CM A - 05/14/2017 4:29 PM PDTCalled patient and left message to call me backElectronically sig hunter by Adalberto Mazariegos CMA at 05/14/2017 4:29 PM PDTTelephone Encounter - Bridgett Galdamez Cer t MA - 05/12/2017 9:23 AM PDTCalled pt to let her know that her referral to ENT has been ap proved and she may call [phone] to schedule. Left message for patient.Electronically lauren d by Melissa Fuchs MA at 05/12/2017 9:26 AM PDTTelephone Encounter - Renetta Lewis - 05/10/2017 4:34 PM PDTPatient was following up on a referral to Dr. Escobar for ENT. Vanessa e return call with update. P DTdocumented in this encounter Plan of Treatment Not on filedocumented as of this encounter Visit Diagnoses Not on filedocumented in this encounter"
--- OUTSIDE RECORDS SUMMARY | ~2020-05-16 | XMS | Encounter Summary ---
Demographics + + + | Address | [address] | | | [place] [address] | + + + | Home Phone | | + + + | Preferred Language | Unknown | + + + | Marital Status | Single | + + + | Zoroastrian Affiliation | 1013 | + + + | Race | Unknown | + + + | Ethnic Group | Unknown | + + + Author + + + | Author | [facility] | | | and [place] | + + + | Organization | [facility] | | | [...] Team Providers + +------+ + | Care Insurance Underwriter Name | Role | Phone | + +------+ + | No, Physician | PCP | Unavailable | + +------+ + Encounter Details +--------+ + + + + | Date | Type | Department | Care Team | Description | +--------+ + + + + | 07/13/ | Episode | [facility] [place] | Karina Betancourt, | | | 2016 | Changes | GASTROENTEROLOGY | [facility] | | | | | [address] [facility] | | | | | | [address] [place] [address] | | | | | | [address] | | | | | | [phone] | | | +--------+ + + + [...]
--- OUTSIDE RECORDS SUMMARY | ~2020-05-16 | XMS | Encounter Summary ---
Demographics + + + | Address | [address] | | | [place] [address] | + + + | Home Phone [...] Team Providers + +------+ + | Care Facility Practice Specialist Name | Role | Phone | + +------+ + | James Farmer MD | PCP | | + +------+ + Encounter Details +--------+ + + + + | Date | Type | Department | Care Team | Description | +--------+ + + + + | 03/04/ | Hospital | [facility] | Meng Talley | | | 2018 | Encounter | MED CTR BLESSING XRAY | MD Sarah [address] | | | | | [address] | [place] | | | | | [place] | [address] | | | | | [address] | | | | | | [phone] | | | +--------+ + + + [...] + + + +---------+ + + | albuterol 90 | Inhale 2 puffs into | 1 | 0 | 03/04/20 | | | mcg/puff | the lungs every 6 | Inhaler | | 18 | 9 | | inhalerIndications: | hours as needed for | | | | | | Acute bronchitis | Wheezing. | | | | | | with bronchospasm | | | | | | + + + +---------+ + + | azithromycin | Take 2 tablets by | 6 | 0 | 03/04/20 | | | (ZITHROMAX) 250 mg | mouth on day 1, and | tablet | | 18 | 9 | | tabletIndications: | 1 tablet by mouth | | | | | | Acute bronchitis | every day | | | | | | with bronchospasm | | | | | | + + + +---------+ + + | benzonatate | Take 1 capsule by | 30 | 0 | 03/04/20 | | | (DOROTHY ROE) | mouth 3 times daily | capsule | | 18 | 9 | | 100 mg | as needed for Cough. | | | | | | capsuleIndications: | | | | | | | Acute bronchitis | | | | | | | with bronchospasm | | | | | | + [...] TABLET BY | 90 | 1 | 02/04/20 | | | dinitrate (ISORDIL) | MOUTH THREE TIMES | tablet | | 18 | 9 | | 10 mg tablet | DAILY | | | | | + + + +---------+ + + | omeprazole | Take 1 capsule by | 180 | 3 | 02/04/20 | | | (PRILOSEC) 20 mg | mouth 2 times daily | capsule | | 18 | 9 | | capsule | (before meals). 30 [...] + documented in this encounter Results XR Chest PA and Lateral (03/04/2018 12:09 [...]
--- OUTSIDE RECORDS SUMMARY | ~2020-05-16 | XMS | Encounter Summary ---
Demographics + + + | Address | [address] | | | [place] [address] | + + + | Home Phone [...] Team Providers + +------+ + | Care Color Artist Name | Role | Phone | + +------+ + | James Farmer MD | PCP | | + +------+ + Reason for Visit + +--------+ + | Reason | Onset | Comments | | | Date | | + +--------+ + | Medication Refill | 02/02/ | | | | 2017 | | + +--------+ + Encounter Details +--------+--------+ + + + | Date | Type | Department | Care Team | Description | +--------+--------+ + + + | 02/02/ | Refill | [facility] [place] [facility] | James Farmer, | Medication Refill | | 2017 | | MEDICINE [address] | | | | | [place], | [place] | | | | | [place] [address] | [address] | | | | | [phone] | | | +--------+--------+ + + + [...] Notes Telephone Encounter - Tamara Turk - 02/02/2018 1:36 PM PDTMedication Omeprazol e 20 mg Quantity 180 capsules Amount of medication remaining Last refill date 06/16/[address] [facility] [place]. Last appointment 01/03/2018 Next appointment N/A Medication Isosorbide 10 mg Quantity 90 tablets Amount of medication remaining Last refill date 11/26/[address] [facility] [place] Last appointment 01/03/2018 Next appointment N/a Patient called states she would like these two medications sent to [facility]. documented in this encounter Plan of Treatment Not on filedocumented as of this encounter Visit Diagnoses Not on filedocumented in this encounter"
--- NOTE | 2020-05-16 08:40 | NUR ---
Discussed in IDT this am. Will offer transitional care to this pt.
[~2020-05-16 12:01] MED LIST changes: +BUSPIRONE HCL5 MG PO; +CARDIZEM60 MG PO; +IMIPRAMINE HCL25 MG PO; +NITROSTAT0.4 MG SL; +PROTONIX40 MG PO; +TRAZODONE HCL50 MG PO
--- NOTE | 2020-05-16 12:21 | NUR ---
Attempt to educate patient about need to eat. States multiple times "I just can't swallow anything." Multiple prompts, patient continues to refuse anything by mouth at this time.
--- NOTE | 2020-05-16 13:08 | NUR ---
PT SITTTING IN CHAIR-VARIOUS LIQUIDS AND FLUIDS ON HER TRAY TO TRY AND FIND SOMETHING THAT WILL TO DOWN. PT FRIGHTENED AT WHAT SHE SAYS IS "AHEAD" FOR ME. PT WOULD LIKE A CARE CONF WITH HER MOTHER PRESENT OR ON PHONE, AND I EXPRESSED THIS TO MORGAN READ. DEBRIEFED PT REGARD THE FEAR ELEMENT. PT REQUESTED PRAYER,
--- NOTE | 2020-05-16 13:56 | NUR ---
Sitting up in recliner, talking with visitor. Allowed to spend time with visitor at this time.
--- NOTE | 2020-05-16 14:31 | NUR ---
MED REC COMPLETE
--- NOTE | 2020-05-16 15:00 | NUR ---
Spoke with pt, sister Ioana, and mom. All are in favor of pt starting transitional care for strengthening. Mom would like pt to have a feeding tube. She would like me to go to the waiting area and speak with daughter Pablo and explain TC and feeding tube. Went to the front and discussed with Ioana. She wants to have a feeding tube placed as she feels she has been starving for months and no one is paying attention. Discussed pt declined yesterday, but family is free to discuss. Updated two SNF declined placement as pt does not swallow much and refuses meds. Ioana to room and mom will wait in waiting area. Discussed feeding tube, TC, and need for a POA. Pt will discuss further with her sister. Notified Dr. Haile sister is in the room and would like to speak with him.
--- NOTE | 2020-05-16 17:04 | NUR ---
Up in chair most of today. Flat affect. Remains on clear liquid diet, poor intake. Family would like to discuss possibility of PEG tube with Dr. Garner, if possible. Patient continues on liquid medications, takes after prompting and education. IV remains SL.
--- NOTE | 2020-05-16 17:06 | NUR ---
Notified by Dr. Haile pt agreed to feeding tube and will contact Dr. Garner.
--- NOTE | 2020-05-16 19:30 | NUR ---
ALREADY BEEN GIVEN REPORT AND TALKED WITH PATIENT AND HER SISTER AND INFORMED HER THAT I WOULD BE NEEDDING TO SPEAK WITH AND WOULD SEE HE WOULD BE AVAILABLE TO TALK WITH THE SISTER. NOW SISTER AT NURSES DESK TRYING TO GET CHARGE NURSE TO CALL DR. KAHN WHICH WAS DONE AND SISTER TALKED ON THE PHONE WITH .
--- NOTE | 2020-05-16 20:30 | NUR ---
PATIENT'S MOTHER AND [id number] HAVE ALSO BEEN OUT NOW WITH CONCERNS ABOUT PATIENT'S ANXIETY AND ABILITY TO TAKE HER MEDS. ASSURED THEM SHE HAS BEEN TAKING HER MEDS AND THEY WILL BE DO SOON. FAMILY VERBALIZED UNDERSTANDING. PATIENT WATCHING TV FROM HER ARMED RECLINER AND VISITING WITH FAMILY.
--- NOTE | 2020-05-16 22:45 | NUR ---
PATIENT TOOK ALL OF HER LIQUID MEDS WITH A SYRINGE AND WITHOUT ANY PROBLEMS, PATIENT UP TO THE BEDSIDE COMMODE WITH 1PA NAD FWW AND VOIDED AND THEN USED THE MELANIE ASSISTANCE TO GET INTO BED. THEN PATIENT TURNED ON HER TV AND STARTED WATCHING A PROGRAM. PATIENT WILL SAY FULL WORDS NORMALLY OR KIND OF PUSH THEM OUT WITH OUT MUCH MOUTH MOVEMENT. PATIENT A+O. CALL LIGHT IN REACH. SEIZURE PADS ON BOTH SIDES OF THE BED AND BED ALARM ON FOR SAFETY.
--- NOTE | 2020-05-16 22:52 | NUR ---
WITH THE HELP OF MORGAN NOLAND WE HELPED HER TO THE BSC AND TO BED WITH HER FWW. FRESH WATER GIVEN. BEDSIDE TABLE AND CALL LIGHT IN REACH.
--- NOTE | 2020-05-17 00:30 | NUR ---
PATIENT RESTING QUIETLY ON HER LEFT SIDE IN BED. NO NEEDS AT THIS TIME. CALL LIGHT IN REACH.
--- NOTE | 2020-05-17 02:30 | NUR ---
PATIENT RESTING QUIETLY ON HER LEFT SIDE, EYES CLOSED, RESPIRATIONS REGULAR AND EVEN. CALL LIGHT IN REACH.
--- NOTE | 2020-05-17 04:47 | NUR ---
PATIENT WAS UP VISITING WITH FAMILY AT THE BEGINING OF THE SHIFT, ALL OF THE FAMILY WAS WORRIED ABOUT THE PATIENT BEING ABLE TO TAKE HER MEDS AND THE SISTER WANTED TO TALK WITH , WHICH WAS ARRAINHGED THROUGH THE CHARGE NURSE. I INFORMED THE FAMILY PATIENT HAD BEEN TAKING HER MEDS AND USING THE BATHROOM EVEN THOUGH SHE HAD TO BE TALKED INTO IT, BECAUSE SHE WOULD SAY SHE COULDN'T, BUT SHE HAS BEEN ABLE TOO. TOOK HER MEDS WITHOUT DIFFICULTY, NO SEIZURES NOTED, PATIENT HAS SLEPT OF AND ON AND IS SLOW TO RESPOND AT TIMES, BUT IS ORIENTED. PATIENT RESTING AT THIS TIME AND CALL LIGHT IS IN REACH.
--- NOTE | 2020-05-17 07:09 | NUR ---
HELPED PT TO THE BSC AND BACK TO BED WITH HER FWW. BEDSIDE TABLE AND CALL LIGHT IN REACH. EMPTIED GARBAGE. BED ALARM SET.
--- NOTE | 2020-05-17 07:38 | NUR ---
bedside report from wilmar rn, pt in bed with call light denies needs, introduced to this rn.
--- NOTE | 2020-05-17 08:45 | NUR ---
PT ANXIOUS, RN LOOKED FOR HOME CLOTHING TO DRESS PT FOR DAY, NONE FOUND. HAND CEMENTER TO CALL HOME AND ASK FOR HOME CLOTHING FOR SWG.
--- NOTE | 2020-05-17 09:50 | NUR ---
BP TAKEN AND ENTERED WHILE PT UP IN - SHE REPORTS LIGHT HEADED - NOTE TO HE IS ON MED SURG. CHARGE AWARE. -
--- NOTE | 2020-05-17 09:56 | NUR ---
PATIENT UP IN CHAIR, TRAY IN FRONT. VITALS AND I&OS DONE AND CHARTED. CALL LIGHT IN REACH, LINENS CHANGED. NO OTHER NEEDS
--- NOTE | 2020-05-17 12:00 | NUR ---
Spoke with celso. She denies needs. Dr. Haile is notifing surgeon for consult for feeding tube.
--- NOTE | 2020-05-17 13:15 | NUR ---
pt in conf call with parent, med held at this time, pt up in .
--- NOTE | 2020-05-17 13:35 | NUR ---
vitals taken and provided for dr. bhatti up in and parent in room on conf. call.
--- NOTE | 2020-05-17 14:25 | NUR ---
SOUNDS LIKE PATIENT HAS AGREED TO FEEDING TUBE. I REALLY THINK THIS IS BEST FOR THE PATIENT SHE IS NOT GOING TO MEET HER CALORIE AND PROTEIN NEEDS ON CLEAR LIQUIDS ALONE. TUBE FEEDING RECOMMENDATIONS: JEVITY 1.5 FORMULA. BOLUS FEED. SHE WILL NEED A TOTAL OF 5 CARTONS (1200 ML) EACH DAY TO MEET HER NEEDS. CAN BOLUS 2 CARTONS (480 ML) FOR BREAKFAST, 2 CARTONS (480 ML) FOR LUNCH, AND 1 CARTON (240 ML) FOR DINNER. THIS SCHEDULE CAN BE MODIFIED IF PATIENT CANNOT TOLERATE 240 ML RIGHT AWAY. CAN BOLUS 1 CARTON, WAIT 1 HOUR, THEN BOLUS ANOTHER. WILL NEED TO FLUSH WITH WATER AFTER EACH FEEDING. 5 CARTONS OF JEVITY 1.5 WILL PROVIDE 1800 CALORIES, 76 GM PROTEIN, AND 912 ML WATER. PATIENT'S ESTIMATED CALORIE NEEDS: [phone] (25-30 KRISH/KG). ESTIMATED PROTEIN NEEDS 83 GRAMS (1.2 GM/KG). WILL CONTINUE TO MONITOR.
--- NOTE | 2020-05-17 15:53 | NUR ---
PATIENT UP IN CHAIR, SISTER JUST CAME IN TO VISIT SINCE MOM LEFT AND ONLY 1 VISITOR AT A TIME. NURSING ASKED IF I COULD TALK TO THE MOM AND/OR SISTER AND PROVIDE INFORMATION ABOUT TUBE FEEDING. VERBAL DISCUSSION ABOUT PATIENT UNABLE TO MEET CALORIE AND PROTEIN NEEDS ON CLEAR LIQUIDS ALONE - JONES AGREES AND SAYS SHE HASN'T BEEN ABLE TO EAT "FOR MONTHS." I EXPLAINED IVIS WILL LIKELY GET A TUBE PLACED IN HER STOMACH AND FORMULA CAN BE GIVEN BOLUS VIA A SYRINGE OR GRAVITY. SHE ASKED IF THERE WERE ANY VIDEOS AND I GAVE HER THE [employer] WEBSITE [email or web address] AND SAID GO TO THE PATIENT RESOURCES SECTION THEN TUBE FEEDING SECTION. THERE ARE A COUPLE OF VIDEOS AND PDF'S OF TUBE FEEDING INFORMATION. I WILL BE ABLE TO TALK MORE ON WEDNESDAY IF NEEDED.
--- NOTE | 2020-05-17 16:00 | NUR ---
PT IN WITH SISTER IN RM - DIETARY IN TO DISCUSS FEEDING OPTIONS AND DX. PT ENC TO DRESS IN HER HOME CLOTHING AND SISTER HELPED HER TO GET IN HER HOME CLOTHING. CL ELLYQ. DISCUSSED AND OPTIONS AND CHOICES VISITED WITH PT. BEDSIDE REPORT GIVEN TO DIPAK MORA AND ORAL MEDICATION GIVEN WITHOUT DIFFICULTY.
--- NOTE | 2020-05-17 16:31 | NUR ---
DR DANIELS IN WITH PT AND HER SISTER JONES FOR CONSULT WITH THIS RN.
--- NOTE | 2020-05-17 17:00 | NUR ---
ASSUMED CARE OF PT AT THIS TIME, BEEF BROTH PER PT REQUEST, SITTING UP IN RECLINER DRESSED. DENIES FURTHER NEEDS, CALL LIGHT IN EASY REACH. SISTER STATES SHE IS LEAVING FOR THE EVENING.
--- NOTE | 2020-05-17 17:50 | NUR ---
PATIENT SITTING UP IN CHAIR. THIS RAILROAD DINING CAR STEWARD/STEWARDESS ASSISTED PATIENT TO BSC USING FWW AND BACK TO CHAIR. PATIENT IS CONFUSED, REPEATEDLY ASKING HOW IS SHE SUPPOSED TO GET ALL THE LIQUID (URINE) BACK INTO HER BODY. CALL LIGHT IN REACH. NO OTHER NEEDS.
--- NOTE | 2020-05-17 18:46 | NUR ---
PT IS SITTING UP IN RECLINER, DECLINES LAYING DOWN AT THIS TIME, DENIES ANY NEEDS, LOOKING AT NEWSPAPER. CALL LIGHT IN EASY REACH.
--- NOTE | 2020-05-17 19:10 | NUR ---
SHIFT REPORT RECEIVED FROM DAYSHIFT MORGAN QUESADA AT BEDSIDE. PT AWAKE AND RESTING IN CHAIR, APPEARS COMFORTABLE AT THIS TIME. NO DISTRESS NOTED, CALL LIGHT IN REACH.
--- NOTE | 2020-05-17 22:00 | NUR ---
ASSESSMENT COMPLETE, SCHEDULED MEDS GIVEN (SEE EMAR) WITHOUT DIFFICULTY. VSS AND I&O'S DONE. PT IN BED, ASPIRATION AND SEIZURE PRECAUTIONS BOTH IN PLACE. PT COMPLAINT WITH CARE, SLOW TO MOVE. IV SITE WNL, SALINE LOCKED. NO FURTHER NEEDS, CALL LIGHT IN REACH.
--- NOTE | 2020-05-17 23:30 | NUR ---
PT RESTING IN BED WITH EYES CLOSED. RR EVEN AND UNLABORED. ASPIRATIONS AND SEIZURE PRECAUTIONS IN PLACE. CALL LIGHT IN REACH.
--- NOTE | 2020-05-18 01:52 | NUR ---
PT RESTING IN BED WITH EYES CLOSED, RR EVEN AND UNLABORED. NO DISTRESS NOTED. CALL LIGHT IN REACH.
--- NOTE | 2020-05-18 03:52 | NUR ---
pt awake and resting in bed, reports dry mouth. mouth swab offered, declined. pt reports having difficulty falling asleep, warm blanket offered, declined. no needs at this time. call light in reach.
--- NOTE | 2020-05-18 04:50 | NUR ---
PT HAD A VERY UNEVENTFUL NIGHT, SLEPT THROUGHTOUT THE SHIFT. VSS, CALLS APPROPERIATELY. NO PAIN OR NAUSEA THIS SHIFT. CLEAR LIQUID DIET, NO ISSUES WITH MEDS. ASPIRATION AND SEIZURE PRECAUTIONS IN PLACE.
--- NOTE | 2020-05-18 06:59 | NUR ---
I&O'S DONE. PT RESISTANT TO GETTING UP TO VOID AND REPEATEDLY MAKES STATEMENTS SUCH "I'M SO DEHYDRATED", "WHY ARE YOU TAKING THE LITTLE I HAVE", "I AM GOING TO SHRIVEL UP AND HERE". THERAPEUTIC COMMUNICATION PROVIDED AND EDUCATION REGARDING NEED TO VOID. PT MOVES VERY SLOW AND REPORTS DRY MOUTH, MULTIPLE OFFERS TO SWAB MOUTH. PT NEITHER DECLINES OR ACCEPTS OFFER. CLEAR ENSURE PROVIDED. ASPIRATION AND SEIZURE PRECAUTIONS REMAIN IN PLACE. NO FURTHER NEEDS. CALL LIGHT IN REACH.
--- NOTE | 2020-05-18 08:35 | NUR ---
1PA TO BSC WITH FWW. THIS AIR CONDITIONING MANAGER COMBED PATIENTS HAIR AND ENCOURAGED HER BRUSH HER TEETH TO WHICH SHE REFUSED 2X. FACE AND HANDS WASHED. IN CHAIR, CALL LIGHT IN REACH. LINENS CHANGED.
--- NOTE | 2020-05-18 08:58 | NUR ---
PT IS ALERT, NEEDS CONSTANT CUEING AND INSTRUCTION, AM CARES DONE WITH INSTRUCTION, UP TO RECLINER, DRESSED, BREAKFAST TRAY DELIVERED, SIPPIN ON LIQUIDS. CALL LIGHT IN EASY REACH.
--- NOTE | 2020-05-18 12:30 | NUR ---
PT SITTING UP IN RECLINER, DRANK CUP OF CHICKEN BROTH AND ONE CLEAR COOK FLAVORED ENSURE.
--- NOTE | 2020-05-18 13:59 | NUR ---
1PA INTO SHOWER. PATIENT TOLERATED "OK" WAS ABLE TO WAS HER OWN BODY WITH ENCOURAGEMENT AND SEVERAL CUES. DRESSED IN HER OWN CLOTHES, SISTER IN ROOM. UP IN CHAIR, CALL LIGHT IN REACH
--- NOTE | 2020-05-18 17:57 | NUR ---
PATIENT AWAKE IN CHAIR, MOTHER IN ROOM. 1PA TO BSC USING FWW. PATIENT STATES SHE DOES NOT KNOW WHY SHE'S BEING PICKED ON THIS WAY, AND DOES NOT WANT TO URINATE. CALL LIGHT IN REACH, NO OTHER NEEDS AT THIS TIME
--- NOTE | 2020-05-18 18:10 | NUR ---
PT SHOWERED TODAY, ONE PERSON ASSIT TO BATHROOM, OUTPUT MUCH BETTER, PT HAS DRANK 4 BOXES OF CLEAR ENSURE AND ONE VANILLA ENSURE WITH LOTS OF COAXING, REMAINS UNSURE AND AFRAID BUT WILL FOLLOW INSTRUCTION WITH COAXING. WORRIES AND FRETS ABOUT MOST EVERYTHING. SISTER AND MOTHER IN TO VISIT.
--- NOTE | 2020-05-18 19:20 | NUR ---
SHIFT REPORT RECEIVED FROM DAYSHIFT MORGAN QUESADA AT BEDSIDE. PT AWAKE AND RESTING IN CHAIR. NO DISTRESS NOTED, CALL LIGHT IN REACH.
--- NOTE | 2020-05-18 20:15 | NUR ---
PT IN TRANSITIONAL CARE PROGRAM, NO IV FLUIDS OR MEDS BEING GIVEN. PER POLICY, IV SITE DUE TO BE ROTATED. PER DR CRISS MILLAN TO IV SITE OUT.
--- NOTE | 2020-05-18 21:58 | NUR ---
ASSESSMENT COMPLETE, SCHEDULED MEDS GIVEN (SEE EMAR). PT HAS A VERY NEGATIVE ATTITUDE TOWARDS MEDICATIONS AND MAKING NEGATIVE STATEMENTS SUCH "I DON'T WANT TO TAKE THESE", "I'M SO DEHYDRATED". EDUCATION PROVIDED BY THIS RN ON NEED TO VOID, ENCOURAGE PO INTAKE, AND NEED FOR MEDICATIONS. MEDS TAKEN WITHOUT DIFFICULTY SWALLOWING. REPORTS PAIN R/T HEADACHE, BUT DOES NOT REPORT PAIN ON PAIN SCALE. PRN TYLENOL OFFERED, NEITHER DECLINED OR ACCEPTED BY PT. WILL MONITOR. PT VOIDED X1, VSS. PT BACK IN BED. ASPIRATION SEIZURE PRECAUTIONS IN PLACE. CALL LIGHT IN REACH.
--- NOTE | 2020-05-19 00:07 | NUR ---
PT RESTING IN BED WITH EYES CLOSED, RR EVEN AND UNLABORED. NO DISTRESS NOTED. CALL LIGHT IN REACH.
--- NOTE | 2020-05-19 03:06 | NUR ---
PT RESTING IN BED, BRIEFLY AWOKE AND RPORTED DRY MOUTH. HAD A SIP OF WATER AND RETURNED TO SLEEP, BOOSTED SELF IN BED. ASPIRATION AND EIZURE PRECAUTIONS IN PLACE. NO ADDITIONAL NEEDS, CALL LIGHT IN REACH.
--- NOTE | 2020-05-19 04:02 | NUR ---
PT VERY NEGATIVE REGARDING POC AT BEGGINING OF SHIFT. REMAINING SHIFT UNEVENTFUL, PT SLEPT FOR MAJORITY OF SHIFT. VSS, CALLS APPROPERIATELY. PT NEEDS PROMPTING AND DIRECT COMMUNICATION AT TIMES FOR COMPLIANCE. VOIDING QS, NO BM. NO NAUSEA REPORTED, CLEAR LIQUID DIET. ASPIRATION AND SEIZURE PRECAUTIONS IN PLACE.
--- NOTE | 2020-05-19 07:15 | NUR ---
BEDSIDE REPORT FROM VEENA MORA. PT IN BED NO SL, DENIES NEEDS, CALL LIGHT IN REACH.
--- NOTE | 2020-05-19 08:43 | NUR ---
1PA ASSIST WITH FWW TO BSC. PATIENT STILL VERY RELUCTANT TO VOID AT ALL. LINENS CHANGED, PATIENT UP IN CHAIRR WITH WARM BLANKET AND SIPPING ON ENSURE. CALL LIGHT IN REACH.
--- NOTE | 2020-05-19 08:46 | NUR ---
VITALS AND I&OS CHARTED.
--- NOTE | 2020-05-19 10:00 | NUR ---
po meds given with great encouragement. pt does not like to take oral meds, but is very able to swallow without difficulty at this time. she demonstrates apple juice with her nexium mixed as well as a theraputic boost peñaloza drink. she will tell you she does not want to take anything and then with encouragment will swallow well. pt encouraged and positive re enforcment and encouragment given - . pt happy that her sister got her a new shirt that she was wearing today.
--- NOTE | 2020-05-19 10:30 | NUR ---
DR. DANIELS IN ROOM WITH THIS RN AND PT. PT UP IN CH. INCREASING TO FULL LIQ. DIET - SMOOTHIE ORDERD. PT DRESSED IN HER OWN SHIRT AND DENIES PAIN. CALL LIGHT IN REACH.
--- NOTE | 2020-05-19 11:47 | CONS ---
[facility] [address], [place] [address] Signed DATE OF CONSULTATION: 05/17/2020 REQUESTING PHYSICIAN: Dr. Haile. PROBLEM: Consideration for PEG tube (percutaneous endoscopic gastrostomy). HISTORY: This 59-year-old white woman was admitted yesterday, May 16, [address] Haile, having presented to the emergency room previously on May 11, 2020, with a seizure-like activity and postictal changes. There was no CT scan finding of concern. The patient is noted to have longstanding chronic esophageal dysphagia. Symptoms were initially intermittent and Schatzki ring was noted on prior endoscopy done in [place]. The patient has had progressively worsening symptoms with inability or unwillingness to swallow liquids and certainly solids. She has seen Dr. 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 The patient has undergone a tele medical consult with Dr. Savannah Morales in [place] (esophageal surgeon), who acknowledged the patient's treatment with Botox injection by Dr. Arceo in [place], mindful that it would be several months before the Botox resolved and more elaborate evaluation could be undertaken with accuracy. The patient was admitted to the transitional care program by Dr. Haile on the basis of placement problems following her seizure admission. The patient is considered to have a seizure disorder, for which recent evaluation showed no anatomic lesion to account for it. The patient is noted to have significant anxiety and markedly significant anxiety with swallowing essentially anything. Concern has been maintained for her nutritional status. I am unaware of any nutritional assessment ( ie prealbumin etc) having yet been done. She has been accompanied by her sister, who is very helpful in providing historical information. I have reviewed a considerable number of notes from her previous admission as well as multiple notes from elsewhere. Her guardian is her mother who is not present at this time. Upon review of upper endoscopy performed by Dr. Arceo on April 01, 2020, a normal cricopharyngeus and upper and middle esophagus, and dilation to 18 mm as well as biopsy of esophageal Mares esophagus was noted. 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 There was a gastric erosion with bleeding, which was treated with argon plasma coagulation, consider NSAID induced in a small hiatal hernia 2 cm at most. The duodenum was normal. I have not seen a biopsy of the midesophagus to assess for eosinophilic esophagitis notably. I was called by Dr. Haile for consideration of PEG tube as the patient's nutritional status has significantly declined over time. Her albumin is 4.1. I do not see a pre-albumin having been obtained on this hospitalization. A tox screen is entirely normal. Serologic testing shows a negative COVID-19 testing. Coag studies show INR of 1.1. She is not anemic. Hematocrit is 36.8, platelets 195,000, white count 5.5. IMAGING STUDIES: Include a chest x-ray from May 10 as well as a head CT and neck CT angiogram showing no abnormality and chest x-ray and CT angio of the head showing no cervical, carotid, or vertebral artery abnormalities, but degenerative disk changes within the cervical spine and a small 1 cm nodule in the left thyroid lobe. REVIEW OF SYSTEMS: The patient denies any odynophagia per se. She simply does not swallow much liquids or solids. She does try to swallow liquids and Ensure type material and has been capable of doing so. She denies any hematemesis or blood per rectum. PHYSICAL EXAMINATION: GENERAL: This is a pleasant white woman, who has a very flat affect. She is accompanied by her sister. VITAL SIGNS: Show a temperature of 98.5, pulse of 82, respirations of 18, blood pressure of 94/54, O2 saturation 99% on room air. NECK: Trachea is midline. She has no hoarseness. There is no thyromegaly. No cervical adenopathy. CHEST: Clear. HEART: Regular without murmur. ABDOMEN: Somewhat obese, but soft, easily palpated. There is no mass, tenderness, or ascites. ASSESSMENT: The patient has a complex dysphagia problem. It may be simple diminished esophageal motility though it has been treated as if achalasia according to what I have read regarding Gastroenterology notes (including a trial injection of Botox). Electronically Signed By: SHYANNE DANIELS MD 05/19/20 1147 PATIENT NAME: IVIS VARGAS CONSULTATION DATE OF : 62 REPORT #: [id number] PHYSICIAN: SHYANNE DANIELS MD PCP: OTHER PCP REPORT IS CONFIDENTIAL AND NOT TO BE RELEASED WITHOUT AUTHORIZATION [place] [phone] Signed It is less likely that is the underlying cause of her problem; more likely it is a global dysmotility problem of the esophagus. 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 The pressing issue regarding her rehabilitation admission at this time is that of nutritional support. She does tolerate some liquids orally, but not enough to sustain or recover her apparent nutritional deficiencies from what we have been told. A PEG tube has been considered. I did discuss with Dr. Haile the fact that the PEG tube by definition would result in a defect in the anterior wall of the stomach. Though it has never been discussed with her nor considered an imminent remedy to her problem, there are occasions where esophagectomy and gastric pull-up are recommended as an approach to completely dysfunctional esophageal problems. A PEG tube may complicate ( though not eliminate) such an undertaking. Its placement would have some implications for surgical treatment in the future should it be considered. Alternatively, a jejunal feeding tube would be a consideration. That of course requires a pump and not bolus feeding, which would be more cumbersome to her family or caretakers upon discharge. An alternative might be simply a nasoenteric Flexiflo feeding tube. These are generally well tolerated, would definitely address enteral tube feeding immediately and preserve the options of gastric manipulation to resolve this problem. Whether she would tolerate its placement and ongoing presence is uncertain however. The underlying etiology of her esophageal problem remains to be determined fully. I do not have all the notes available including any manometric studies, though it is noted by Dr. Arceo's description that there was narrowing at the GE junction. Whether this is physiologic (achalasia per se) or anatomic (stricture for which she has undergone 18 mm dilation) or is in someway related to eosinophilic esophagitis (not clinically apparent endoscopically, but uncertain if yet evalauated) is not known yet. All of these questions and possible etiologic factors for her esophageal dysmotility have been yet to be fully defined. There would be no harm in a nasoenteric feeding tube to initiate tube feedings, while some of these questions are more fully evaluated. It would likely be well-tolerated. A PEG feeding tube will be more fully considered after Dr. Haile consults with Dr. Morales as he has planned. Electronically Signed By: SHYANNE DANIELS MD 05/19/20 1147 PATIENT NAME: IVIS VARGAS CONSULTATION DATE OF : 62 REPORT #: [id number] PHYSICIAN: SHYANNE DANIELS MD PCP: OTHER PCP REPORT IS CONFIDENTIAL AND NOT TO BE RELEASED WITHOUT AUTHORIZATION [facility] [address] [place] [id number] Signed MD LEONORA De Leon/KENDRA /[id number] cc: MD Valarie Tello MD Copies: ISHAAN RAMIRES MD, LOHITH VEERAPPA MD ~ Electronically Signed By: SHYANNE DANIELS MD 05/19/20 1147 PATIENT NAME: IVIS VARGAS GREGORIA CONSULTATION DATE OF : 62 REPORT #: [id number] PHYSICIAN: SHYANNE DANIELS MD PCP: OTHER PCP REPORT IS CONFIDENTIAL AND NOT TO BE RELEASED WITHOUT AUTHORIZATION
--- NOTE | 2020-05-19 12:59 | NUR ---
pt up in with significant other in room. pt declines to try her nutritional smoothie. pt did swallow with encouragement - just keeps saying she can't. swallows with no visible difficulty - just says she doesn't want any. asked pt to make a list with her visitor of things she likes or used to like to eat. offered many diffrent forms of food. pt is currently using a spoon with the thin liquid smoothie - and feeding herself with maximum encouragement.
--- NOTE | 2020-05-19 13:30 | NUR ---
pt given a popcycle and apple sauce to try to eat - non dairy - she demonstrates bites of apple sauce well with encouragement - she says we are trying to kill her - her significant other is helping to encourage her to eat. and feed herself - he agrees that she is just not willing to try and does well with strong encouragment.
--- NOTE | 2020-05-19 14:22 | NUR ---
PATIENT UP IN CHAIR, FAMILY AT SIDE. I&OS CHARTED, NO OTHER NEEDS AT THIS TIME
--- NOTE | 2020-05-19 15:25 | NUR ---
pt up in ch - visiting with s/o. po liquid medication given to pt, enc. her to give her own med using the syringe. she was able to put syringe to mouth and take liq. medication with out swallowing difficulty. she c/o "your trying to kill me!" educated visitor and pt of need for medication and enc and praised the pt for taking the medication on her own without any swallowing problems.
--- NOTE | 2020-05-19 15:44 | NUR ---
1PA PATIENT TO TOILET USING FWW. BOYFRIEND AT SIDE. BOYFRIEND IS VERY ENCOURAGING TO PATIENT. PATIENT AMBULATED CLEMENTE @20 FT USING FWW AND GAIT BELT. BACK TO CHAIR, FRESH WATER GIVEN. PATIENT WAS PINCHED BY GAIT BELT BY THIS OILING MACHINE OPERATOR WHILE TIGHTENING(BACK/RIGHT) RN NOTIFIED. CALL LIGHT IN REACH
--- NOTE | 2020-05-19 15:50 | NUR ---
enc. pt and s/o to amb. in winter together. pt agrees to walk with crabber and fww. pt very down, and negative. she did great and was just complaining about everything - however she did well and was encouraged and praised greatly!
--- NOTE | 2020-05-19 16:38 | NUR ---
pt had good day, inspite of saying she was dying all day. pt had new clothing on from her sister, tollerated with great encoragement full liquid diet. she ambulated in winter with her s/o and did well - complained about everything but did everything asked, eating, walking etc. her boyfriend was good at encouraging her and her negativity, very supportive. she is due to have a bm. no iv swg bed, nicolas consulted again today.
--- NOTE | 2020-05-19 17:37 | NUR ---
PATIENT UP IN CHAIR, MOTHER IN ROOM. FRESH WATER GIVEN. I&OS CHARTED. CALL LIGHT IN REACH
--- NOTE | 2020-05-19 18:00 | NUR ---
pt eating with encouragement from rn and her mother - mashed potatoes and turkey gravy - very thin, toll well but unhappy about having to try. mother appreaciative.
--- NOTE | 2020-05-19 19:10 | NUR ---
SHIFT REPORT RECEIVED FROM EARNEST MORA AT BEDSIDE. PT AWAKE AND RESTING IN CHAIR. DENIES NEEDS OR CONCERNS, CALL LIGHT IN REACH.
--- NOTE | 2020-05-19 22:20 | NUR ---
ASSESSMENT COMPLETE, SCHEDULED MEDS GIVEN WITHOUT ISSUE. PT REMAINS VERY NEGATIVE REGARDING NEED TO VOID AND MEDICATIONS. CLAIMS SHE'S DEHYDRATED AND DOESN'T HAVE ANYTHING TO PEE, 900 MLS OUTPUT NOTED. YELLOW IN COLOR. CLEAR COOK ENSURE FULLY DRANK BY PT AFTER MEDS, TOLERATED WELL. PT IN BED, VSS. NO ADDITIONAL NEEDS, CALL LIGHT IN REACH.
--- NOTE | 2020-05-19 22:28 | NUR ---
WITH THE HELP OF MORGAN CURIEL WE HELPED PT INTO THE BATHROOM WITH HER FWW. PT WAS NOT WANTING TO GO TO THE BATHROOM. WE HAD TO PROMT HER SEVERAL TIMES. VITALS DONE AND CHARTED.PT IN THE BATHROOM NOW. MORGAN CURIEL IN THE ROOM.
--- NOTE | 2020-05-19 22:40 | NUR ---
GOT PT TUCKED INTO BED.BEDSIDE TABLE AND CALL LIGHT IN REACH. FRESH WATER GIVEN. ALSO GAVE HER A STRAWBERRY CLEAR ENSURE AND SHE DRANK IT ALL. BED ALARM SET. PT NEEDS NOTHING MORE AT THIS TIME.
--- NOTE | 2020-05-20 00:33 | NUR ---
ROUNDED ON PT, RESTING QUIETLY IN BED AND AWAKE. DENIES NEEDS, CALL LIGHT IN REACH. ASPIRATION AND SEIZURE PRECAUTIONS IN PLACE.
--- NOTE | 2020-05-20 02:15 | NUR ---
PT RESTING IN BED WITH EYES CLOSED, RR EVEN AND UNLABORED. NO DISTRESS OR SIGNS OF PAIN NOTED. ASPIRATION AND SEIZURE PRECAUTIONS IN PLACE. CALL LIGHT IN REACH.
--- NOTE | 2020-05-20 03:18 | NUR ---
PT AWAKE AND RESTING IN BED, REPORTS DRY MOUTH. ENCOURAGED TO DRINK WATER, HOB ELEVATED AND ASPIRATION PRECAUTIONS IN PLACE. NO NEEDS VERBALIZED, CALL LIGHT IN REACH.
--- NOTE | 2020-05-20 06:06 | NUR ---
PT UP SBA WITH FWW TO BATHROOM TO VOID, 900MLS OUTPUT NOTED. PT BACK IN BED, DRINKING CLEAR COOK ENSURE. BED ALARM ON, NO ADDITIONAL NEEDS. CALL LIGHT IN REACH.
--- NOTE | 2020-05-20 08:54 | NUR ---
Pt sitting up in chair drinking an ensure, tolerating well. Pt denies pain. Pt denies needs at this time. Personal supplies and call light within reach.
--- NOTE | 2020-05-20 10:11 | NUR ---
PATIENT IN CHAIR. CHANTELL ALMEIDA. CALL LIGHT IN REACH. NO FURTHER NEEDS AT THIS TIME.
--- NOTE | 2020-05-20 10:30 | NUR ---
In and spoke with Flor and discussed where she would like to go on dc. Pt is unable to state or make decision at this time. She states she is unaware of what her finances are as she has not worked since Dec. She will not anwswer if she thinks she could return home with a cg. She moved in with her parents as she was frightened to stay alone while her boyfriend worked. She states he mom will be in later and asks I return. She has been taking a full liq diet today.
--- NOTE | 2020-05-20 14:27 | NUR ---
Pt sitting up in chair at this time eating her lunch. Mom in room visiting. Pt has consumed a good portion of her food; tolerating full liquids well. Mom of pt reports her daughter ate ice cream and soup without difficulty. Pt denies pain. Urine output has been q/s. Pt has no needs at this time. Call light within reach.
--- NOTE | 2020-05-20 14:30 | NUR ---
Pt'smom arrives. She states she was exhausted while Cherrie was staying with her and doesn't think she can go home with her. Reminded of our converstation last week, where I had attempted to place Flor in SNFs and was declined by [facility]. [facility] in [place] is not currently taking pts. Pt cannot go out of state as she is on the O[facility] throughE [facility]. Options given: 1.home with a cg. Will need to pay out of pocket. 2. Assisted living, will need to pay out of pocket. 3. Home with family. Mom states she is working with DHS and SSI. Discussed pt will need to be discharged prior to her receiving any of these resouces as DHS can take 45 days and SSI >6 months. Mother encouraged to discuss with family, Cherrie listens to conversation, but does not have any input. Asked directly where she wants to go and she shrugs her shoulders.
--- NOTE | 2020-05-20 14:36 | NUR ---
PATIENT IN RECLINER WITH LUNCH TRAY IN FRONT OF HER. SHE DID WELL AT LUNCH, EATING ABOUT 60% OF BLENDED CHICKEN NOODLE SOUP, 100% ENSURE CLEAR, 100% SHERBET. DID NOT EAT ANY APPLESAUCE. SHERBET WENT DOWN REALLY WELL. DIET IS NOW FULL LIQUID. CALORIE COUNT ORDERED BY DR. KAHN TO ASSESS INTAKE. PATIENT IS SWALLOWING BETTER THE PAST COUPLE OF DAYS. TUBE FEEDING PLACEMENT NOT HAPPENING AT THIS TIME. THE PLAN IS TO SEE HOW PATIENT DOES WITH FULL LIQUIDS IN REGARDS TO MEETING HER CALORIE AND PROTEIN NEEDS. I CLARIFIED WITH PATIENT ABOUT DAIRY: SHE SAID DRINKING DAIRY-BASED DRINKS COATS HER THROAT. I ASKED HER ABOUT YOGURT OR PUDDING AND SHE IS WILLING TO TRY THEM BUT THEY NEED TO BE THINNED OUT FOR EASIER SWALLOWING. WILL SEND A THINNED OUT VANILLA YOGURT ON BREAKFAST TRAY IN THE MORNING. PATIENT PREFERS THE MIXED COOK ENSURE CLEAR INSTEAD OF REGULAR ENSURE ENLIVE OR ENSURE CLEAR APPLE. WILL CONTINUE TO MONITOR.
--- NOTE | 2020-05-20 15:31 | NUR ---
PATIENT UP TO BATHROOM AND BACK TO CHAIR, 1PA FWW. WARM BLANKET GIVEN. CALL LIGHT IN REACH. NO FURTHER NEEDS AT THIS TIME.
--- NOTE | 2020-05-20 15:39 | NUR ---
Pt assisted to restroom one person assist with walker. Pt needed prompting and encouragement to walk to the restroom.
--- NOTE | 2020-05-20 18:36 | NUR ---
PATIENT SITTING UP IN CHAIR. I&O DONE. CALL LIGHT WITHIN REACH.NO OTHER NEEDS AT THIS TIME
--- NOTE | 2020-05-20 18:57 | NUR ---
Tylenol 320mg po admininstered for reports of 6/10 head pain.
--- NOTE | 2020-05-20 19:59 | NUR ---
SHIFT REPORT RECEIVED FROM NURSE BELTRAN. PT HAS VISITORS AT THIS TIME. PT IS UP IN CHAIR. NO REQUESTS AT THIS TIME.
--- NOTE | 2020-05-20 20:55 | NUR ---
ASSESSMENT COMPLETE. PT IN CHAIR, RESTING COMFORTABLY. PT IS ALERT, ORIENTED AND TALKATIVE. PT C/O HEADACHE BUT RECENTLY HAD PRN TYLENOL SO WILL WAIT HEADACHE IS TOLERABLE. PT IS DRINKING WELL. PT CHOOSES TO STAY UP IN CHAIR FOR LONGER BEFORE GOING TO BED. CALL LIGHT PLACED WITHIN REACH.
--- NOTE | 2020-05-20 23:14 | NUR ---
HELPED PATIENT FROM BATHROOM TO BED USING WALKER. SIEZURE PADS ARE ON. ICE WATER REFILLED. CALL LIGHT IN REACH.
--- NOTE | 2020-05-21 00:25 | NUR ---
ROUNDED ON pt. RESTING IN BED WITH SIDE RAILS UP AND SEIZURE PADS IN PLACE. CALL LIGHT WITHIN REACH. RESPIRATIONS REGULAR AND UNLABORED.
--- NOTE | 2020-05-21 00:30 | NUR ---
ROUND COMPLETE. PT AWAKE. C/O DRY THROAT. WATER OFFERED AND PT AGREES AND TAKES SOME SIPS OF WATER. BEDDING READJUSTED. CALL LIGHT WITHIN REACH. PT ENCOURAGED TO CALL FOR NEEDS.
--- NOTE | 2020-05-21 02:58 | NUR ---
ROUNDS MADE. PT IS STILL AWAKE. STATES SHE FEELS LIKE SHE IS SOB. SPO2 99%, PULSE 72. PT STATES SHE IS WORRIED ABOUT HER DISCHARGE AND HOW IT WILL AFFECT HER FAMILY. PT STATES SHE HAS THIS FEELING OFTEN AT HOME ALSO WHEN SHE WORRIES AND "PANICS". PT STATES THE FEELING IS LIKE SHE IS "TAKING HER LAST BREATH" AND HER MOUTH AND THROAT ARE DRY. PT WAS UP TO BATHROOM AND VOIDED A LARGE AMOUNT URINE. PT REPEATED MANY TIMES WHILE ON TOILET THAT SHE WAS WORRIED. PT RETURNED TO BED AND REPOSITIONED AND ENCOURAGED TO CONTINUE DRINKING WATER TO MOISTEN THROAT. PT DECLINED MOUTHWASH OR BRUSHING TEETH OR ORAL CARE. CALL LIGHT PLACED WITHIN REACH.
--- NOTE | 2020-05-21 05:32 | NUR ---
PT WAS AWAKE AT EVERY ROUND THROUGH THE NIGHT AND WAS NOT SEEN SLEEPING AT ALL. PT C/O DRY MOUTH AND A "PANIC FEELING" THAT SHE STATES SHE EXPERIENCES AT HOME. PT IS WORRIED ABOUT DISCHARGE/HOME CARE AND HOW THAT WILL AFFECT HER FAMILY. THIS PANIC GIVES HER THE SENSE OF SOB HOWEVER SPO2 IS 99% ON RA, LUNGS CTA. PT WAS ENCOURAGED THAT HER FAMILY STATED THEY WOULD VISIT TODAY AND SPEAK TO CASE MGMT.
--- NOTE | 2020-05-21 07:33 | NUR ---
Pt resting in bed, respirations even and non labored. Pt reports she did not sleep well last night; encouraged her to continue to rest. No needs at this time. Personal supplies and call light within reach.
--- NOTE | 2020-05-21 09:56 | NUR ---
PATIENT IN CHAIR RESTING. LINENS CHANGED. FRESH WATER GIVEN. CALL LIGHT IN REACH. NO FURTHER NEEDS AT THIS TIME.
--- NOTE | 2020-05-21 11:30 | NUR ---
PATIENT UP TO SHOWER, 1PA FWW. PATIENT ASSISTED IN SHOWER WHEN PROMPTED. PATIENT NOW BACK TO CHAIR. CLEAN ATTENDS AND CLOTHES ON. CALL LIGHT IN REACH. NO FURTHER NEEDS AT THIS TIME.
--- NOTE | 2020-05-21 12:10 | NUR ---
Pt sitting up in chair eating lunch at this time. Pt reports that she is unsure of how she will eat all of her food. Assited pt with mixing her food well, then encouraged her to eat slow; pt receptive to plan of care. Call light within reach. No needs at this time.
--- NOTE | 2020-05-21 13:13 | NUR ---
PATIENT IN CHAIR WORKING ON DRINKING ENSURE. PATIENT COULD ONLY TOLERATE ABOUT 40% OF HER MEAL. FRESH WATER GIVEN. CALL LIGHT IN REACH. NO FURTHER NEEDS AT THIS TIME.
--- NOTE | 2020-05-21 14:39 | NUR ---
Pt sitting up in chair, a&ox4. PT denies sob and pain. Pt reports difficulty when swallowing and appears to burp frequently after ingenstion of liquids. She repeatedly states she "can barely get it down". Swallow reflex appears to be working appropriately aside from the frequent burping after swallowing thin/full liquids. PT remains in chair with hob elevated.
--- NOTE | 2020-05-21 15:00 | NUR ---
Long phone conversation with pt's sister Ioana and he spouse. They are very concerned as pt cannot go home with mom. Mom was overwhelmed following our converstation last night. Updated, pt is approaching a time where she will meet goals for TC. Pt will need to discharge at that time. We are attempting to help pt with a plan which works for her, her boyfriend, and family. Options given as discussed with mom last night. Ioana states they can easily afford a cg and if pt wants to go home she thinks this is the best option. She will also go and assist Flor in her home until a cg can be hired. [facility] phone number given and Ioana also states she has some names of cg. She would like pt to cont. therapy at [facility] in [facility]. Pablo states pt and mom both have money to pay for cg. She will follow up with finding a cg for Flor. Flor does not like to stay alone in her home, while her boyfriend works. Ioana would also like someone to monitor pt's diet while she is home.
--- NOTE | 2020-05-21 15:38 | NUR ---
IVIS DID WELL AT BREAKFAST TODAY, CONSUMING APPROX 528 CALORIES (THIS INCLUDES 240 KRISH FROM ENSURE CLEAR). SHE DID WELL WITH THE THINNED VANILLA YOGURT - WILL SEE HOW SHE DOES WITH IT TOMORROW. FOR LUNCH SHE ONLY CONSUMED APPROX 186 CALORIES INCLUDING 30% OF AN ENSURE CLEAR. SHE DOES NOT SEEM TO LIKE PUREED FRUIT. STILL COMPLAINS OF DRY THROAT AND "THINGS WON'T GO DOWN." STATES SHE DID DRINK SOME OF THE ENSURE ENLIVE LAST NIGHT BUT IT CAME BACK UP. SHE WISHES HER MOM WERE HERE BECAUSE OF THE ENCOURAGEMENT SHE GAVE TO IVIS. I COMMENDED IVIS FOR DOING WELL TRYING DIFFERENT FOODS TODAY. HER ABILITY TO SWALLOW HAS IMPROVED SINCE WEDNESDAY. SHE STILL NEEDS ENCOURAGEMENT. WILL CONTINUE TO FOLLOW.
--- NOTE | 2020-05-21 18:14 | NUR ---
PATIENT SITTING UP IN CHAIR. VISITOR IN ROOM. I&O DONE. CALL LIGHT WITHIN REACH. NO OTHER NEEDS AT THIS TIME
--- NOTE | 2020-05-21 18:30 | NUR ---
Spoke with flor and her boyfriend Jake. Updated to plan sister would like to help Flor with. Flor is unsure, but Jake feels this is a good plan and would like pt to try.
--- NOTE | 2020-05-21 19:22 | NUR ---
RECEIVED REPORT FROM MORGAN BELTRAN. pt SITTING CHAIR WITH VISITOR. REPORTED FEELING DRY. EXPLAINED PLAN FOR THE EVENING. NO IMMEDIATE NEEDS AT THIS TIME. WHITEBOARD UPDATED. CALL LIGHT WITHIN REACH.
--- NOTE | 2020-05-21 21:44 | NUR ---
IN TO DO ASSESSMENT. pt SPOKE AT LENGTH ABOUT FEELING "DRY" ENCOURAGED FLUIDS TOLERATED. ASSESSMENT DONE. pt REQUIRED MUCH COACHING TO TAKE ORAL MEDICATION, GIVEN (SEE MAR). pt UP TO VOID. WILL CALL WHEN READY. CALL LIGHT WITHIN REACH.
--- NOTE | 2020-05-21 22:47 | NUR ---
pt BACK TO BED. HAD A SMALL SOFT BM AND A LARGE VOID. pt STATED "I JUST DON'T WANT TO GET STOPPED UP AGAIN" VITALS AND I&O RECORDED. SOFTWARE CONFIGURATION ENGINEER IN ROOM SETTLING pt IN BED FOR THE NIGHT. CALL LIGHT WITHIN REACH.
--- NOTE | 2020-05-22 00:25 | NUR ---
ROUNDED ON pt. RESTING IN BED WITH SIDE RAILS UP AND SEIZURE PADS IN PLACE. CALL LIGHT WITHIN REACH. RESPIRATIONS REGULAR AND UNLABORED.
--- NOTE | 2020-05-22 01:55 | NUR ---
ROUNDED ON pt. RESTING IN BED WITH EYES CLOSED, RESPIRATIONS REGULAR. CALL LIGHT WITHIN REACH.
--- NOTE | 2020-05-22 04:07 | NUR ---
ROUNDED ON pt. SITTING IN BED. DISCUSSED CURRENT ILLNESS FOR 3O MINUTES PLUS. pt REPORTED FEELING SCARED ABOUT BEING DISCHARGED. THERAPEUTIC COMMUNICATION. pt UP TO VOID AND BACK TO BED. SIDE RAILS UP, SEIZURE PADS IN PLACE. CALL LIGHT WITHIN REACH.
--- NOTE | 2020-05-22 06:44 | NUR ---
ANKIT RN TO ROUND ON pt. pt REQUESTED A LIST OF FULL LIQUID FOODS. THIS RN TO ROOM TO DISCUSS.
--- NOTE | 2020-05-22 07:41 | NUR ---
REPORT RECEIVED FROM MORGAN LEONARD. PT CRAWLING OUT OF BED AND ANXIOUS ABOUT PLAN OF CARE. PT UPDATED ON PLAN OF CARE. THIS RN AND MORGAN LEONARD TALKING WITH PT FOR 20MINUTES REGARDING PLAN FOR THE DAY. 1 PERSON ASSIST, FWW UP TO CHAIR. CHAIR ALARM IN PLACE. WARM BLANKETS PROVIDED. NO ADDITIONAL REQUESTS OR COMPLAINTS AT THIS TIME. CALL LIGHT WITHIN REACH.
--- NOTE | 2020-05-22 09:03 | NUR ---
medications due. PT WORKING WITH BUILDINGS AND GROUNDS SUPERVISOR. PT COMPLAINS WITH EVERY SWALLOW STATING "I CAN'T DO THIS." PT ABLE TO SWALLOW PILLS AND MEDICATIONS. GRUNTS WITH EACH SWALLOW. PT CALLS CARES AND EATING "TORTURE." NELSON BUILDINGS AND GROUNDS SUPERVISOR, REMAINS AT CHAIRSIDE. CALL LIGHT WITHIN REACH.
--- NOTE | 2020-05-22 09:57 | NUR ---
I MADE A HIGH CALORIE CREAM OF WHEAT FOR IVIS FOR BREAKFAST MADE WITH PROTEIN POWDER, BROWN SUGAR, BUTTER, AND SOME HALF & HALF. IT CAME UP TO HER ROOM TOO THICK FOR HER, SO I ADDED HOT WATER. SHE ONLY TOOK 5 SMALL BITES. SHE DID EAT 100% OF THE VANILLA YOGURT THINNED WITH A LITTLE BIT OF WHOLE MILK WHICH PROVIDES 138 CALORIES. SO FAR HAS ONLY DRANK 50% OF THE ENSURE CLEAR. DINNER 05/21/20: ONLY 71 CALORIES CONSUMED. LUNCH 05/21/20: 106 CALORIES CONSUMED BREAKFAST 05/21/20: 528 CALORIES CONSUMED TOTAL CALORIES CONSUMED YESTERDAY: 705. SHE NEEDS ENCOURAGMENT TO EAT AND THAT HER FOOD IS GOING DOWN. THE CREAM OF WHEAT WAS MORE CHALLENGING FOR HER TODAY BUT THE YOGURT WAS FINE, JUST TAKES HER TIME TO EAT. I WISH SHE COULD GET AN ENSURE ENLIVE DOWN BECAUSE IT HAS MORE PROTEIN AND CALORIES, BUT IT'S TOO THICK OR SOMETHING. SHE CANNOT TOLERATE THE CHOCOLATE FLAVOR. SHE WOULD DEFINITELY BENEFIT FROM THE ENSURE CLEAR DRINKS AT HOME. WILL TALK TO HER SISTER AND/OR MOM TO PROVIDE TIPS FOR GETTING CALORIES AND PROTEIN IN.
--- NOTE | 2020-05-22 10:07 | NUR ---
PATIENT UP IN CHAIR. VITALS AND I&OS CHARTED . GARBAGE EMPTIED. CALL LIGHT IN REACH
--- NOTE | 2020-05-22 10:34 | NUR ---
MORNING ASSESSMENT AND MEDICATION DUE. THIS RN TO ROOM WITH DR. DANIELS FOR ROUNDS. PT UP TO CHAIR AND COMPLAINTING ABOUT HOW "I CANT DO ANY OF THIS." PT ASKED TO EXPLAIN AND REPORTS SHE IS UNABLE TO EAT HER FOOD AND FEELS VERY CONSTIPATED. EDUCATION DONE WITH PT REGARDING PLAN OF CARE. MEDICATION PROVIDED FOR CONSTIPATION. ORAL HYDRATION ENCORUAGED. ASSESSMENT DONE. PT VERY ANXIOUS, REPEATING PHRASES "IM JUST MISERABLE" "HOW AM I GOING TO EAT" "I'M CONSTIPATED." PT REFUSES MEDICATION FOR CONSTIPATION. PT DECLINES CARES. LUNG SOUNDS CLEAR. TOLETING OFFERED, PT DECLINED. PT DENIES PAIN AND NAUSEA. NO ADDITIONAL REQUESTS OR COMPLAINTS AT THIS TIME. CALL LIGHT WITHIN REACH.
--- NOTE | 2020-05-22 12:44 | NUR ---
THIS RN TO ROOM TO CHECK ON PT. PT UP TO CHAIR. PT CONTINUES TO REPORT CONSTIPATION. PT HAS HAD SMALL SOFT BOWEL MOVMENT THIS MORNING. PT STATES REPETITIVELY "HOW AM I GOING TO EAT LUNCH." LUNCH ORDER CONFIRMED WITH CAFETERIA. PT ADVISED THAT SHE CAN EAT IF SHE WANT'S OR NOT IF SHE IS NOT HUNGRY. PT SHAKES HER HEAD WHEN ASKED ABOUT OTHER REQUESTS OR COMPLAINTS. PT UPDATED ON PLAN OF CARE. NO ADDITIONAL REQUESTS OR COMPLAINTS. CALL LIGHT WITHIN REACH. CHAIR ALARM ON.
--- NOTE | 2020-05-22 14:30 | NUR ---
THIS RN TO ROOM TO CHECK ON PT. PT FINISHED WITH CLEAR ENSURE FROM THIS MORNING. 2ND ENSURE PROVIDED. PT ENCOURED TO DRINK. PT REPORTS FEELING BLOATED AND "I'M STILL SO CONSTIPATED." PT WATCHING ANIMAL PLANET. NO ADDITIONAL REQUESTS OR COMPLAINTS. CALL LIGHT WITHIN REACH. CHAIR ALARM ON.
--- NOTE | 2020-05-22 15:07 | NUR ---
PATIENT AWAKE IN CHAIR, MOTHER IN ROOM. FRESH ICE WATER GIVEN. I&OS CHARTED. CALL LIGHT IN REACH, NO OTHE RNEEDS AT THIS TIME
--- NOTE | 2020-05-22 15:30 | NUR ---
MEDICATION DUE. PT UP TO CHAIR. PTS MOTHER ARRIVED TO VISIT WITH PT. PTS MOTHER STATES SHE IS "UNCOMFORTABLE" WITH THE "DISCHRAGE THREAT." DISCUSSION HELD WITH PTS MOTHER. CASE MANAMGEMENT NOTIFIED AND WILL BE IN TO TALK WITH PT AND HER MOTHER. PT GETTING DRESSED WITH SMOKING PIPE DRILLER AND THREADER. PT HAS INCONTINANT EPISODE OF LIQUID SOFT STOOL. SMOKING PIPE DRILLER AND THREADER WORKING WITH PT TO GET CLEANED. PT RELUCANT TO GET UP AND GET CHANGED, STATES "NO, I JUST WANT TO STAY THIS WAY." PT EDUCATION DONE. PT UP TO RESTROOM, AAKASH CARE DONE. PANTS AND UNDERWEAR CHANGED. CALL LIGHT WITHIN REACH. SMOKING PIPE DRILLER AND THREADER WITH PT.
--- NOTE | 2020-05-22 15:40 | NUR ---
ASKED TO SPEAK WITH PATIENTS MOTHER WHO IS IN THE ROOM. SPOKE WITH HER BRIEFLY. SHE WANTED UPDATE ON DISCHARGE PLAN. EXPLAINED THAT WE ARE GOING TO ASK INSURANCE FOR EXTENSION OF STAY SHE IS STILL NOT TAKING IN ADEQUATE ORAL. DISCUSSED THAT PATIENT IS AMBULATING MUCH BETTER AND PT/OT FEEL SHE MAY BE ABLE TO DO HOME HEALTH IF DISCHARGED. DISCUSSED LAST PLAN WITH PATIENT, HER SIG OTHER AND HER SISTER WAS PATIENT WILL GO BACK WITH SIG OTHER, WE WILL GET HOME HEALTH, SISTER WILL HELP PATIENT UNTIL CAREGIVER IS HIRED TO COME IN WHILE SIG OTHER IS AT WORK. DISCUSSED THAT WE WILL RE-VISIT THIS PLAN WE GET TO DISCHARGE. QUESTIONS ANSWERED.
--- NOTE | 2020-05-22 15:47 | NUR ---
1PA ASSIST TO BR WITH PATIENT USING FWW. PATIENT VERY RELUCTANT TO USE TOILET, THIS HIGH SCHOOL COMPUTER SCIENCE TEACHER REALIZED SHE WAS INCONTINENT OF STOOL. PATIENT IS CLEANED UP AND HAS CLEAN CLOTHES ON. MOTHER IN ROOM. CALL LIGHT IN REACH
--- NOTE | 2020-05-22 15:58 | NUR ---
PATIENT REQUESTED TO TAKE A WALK. MADE ONE LAP AROUND NURSES STATION WITH THIS LAND LEASES AND RENTALS MANAGER AND FWW WITH GAIT BELT. CALL LIGHT IN REACH OF PATIENT IN CHAIR.
--- NOTE | 2020-05-22 16:48 | NUR ---
PT IN TRANSISTIONAL CARE PROGRAM RFOR MALNUTRITOIN, DYSPHAGIA AND DECONDITIONING. PT UP TO AMBULATE AND TO RESTROOM WITH 1 PERSON ASSIST AND FRONT WHEEL WALKER. PHYSICAL THERAPY INVOVLED. ARCHEOLOGY FACULTY MEMBER TO BEDSIDE THIS SHFIT TO ASSIST PT WITH EATING. PT RELUCTANT BUT ABLE TO SWALLOW. SURGICAL CONSULT FOR POSSIBLE PEG TUBE. ENSURES PROVIDED, PT RELUCTANT TO DRINK. MEDICATIONS CHANGED TO PO. PT ABLE TO SWALLOW PILLS WITH ENCORUAGEMENT. MULTIPLE BOWEL MOVEMENT THIS SHIFT. PT VOIDING QUANTITY SUFFIICNET. PT DOES NOT USE CALL LIGHT. BED/CHAIR ALARM IN PLACE.
--- NOTE | 2020-05-22 17:58 | NUR ---
THIS RN TO ROOM TO CHECK ON PT. PT ASSISTED WITH EATING DINNER. PT EATS MASHED POTATOTES WITH GRAVEY, ICE CREAM AND 2 ENSURES. PT REPEATS "WHERE IS IT GOING?" PT ENCOURAGED THAT SHE IS EATING WELL. ADDITIONAL ENSURE PROVIDED AT BEDSIDE. PT WATCHING TV. CALL LIGHT WITHIN REACH. CHAIR ALARM ON. NO ADDITIONAL REQUESTS OR COMPLAINTS.
--- NOTE | 2020-05-22 18:35 | NUR ---
PT CALL LIGHT ON. PT REPORTS SHE HAS HAD A BOWEL MOVMENT IN HER PANTS. PT HAD LARGE LIQUID BOWEM MOVMENT. 1 PERSON ASSIST FWW UP TO TOILET. PT CONTINUES TO HAVE BOWEL MOVEMENT. PT CLEANED, AAKASH CARE, NEW DEPENDS AND PANTS. GARBAGES EMPTIED, ROOM CLEANED. PT BACK TO CHAIR. ENSURE AT BEDSIDE. PT CHEERFUL AND WATCHING TV. CALL LIGHT WITHIN REACH.
--- NOTE | 2020-05-22 19:05 | NUR ---
SHIFT REPORT RECEIVED FROM MAYCONDNIVIA BENOIT AT BEDSIDE. PT AWAKE ADN RESTING IN CHAIR, DENIES NEEDS. CALL LIGHT IN REACH.
--- NOTE | 2020-05-22 20:25 | NUR ---
ASSESSMENT COMPLETE, SCHEDULED MEDS GIVEN WITHOUT ISSUE OF SWALLOWING. BM MEDS HELD PER CLINICAL JUDGEMENT (SEE EMAR). VSS, NO PAIN OR NAUSEA REPORTED. PT DOES REPORT INTERMITENT CRAMPING DUE TO RECENT DIARRHEA, WILL MONITOR. PT TO BATHROOM TO VOID X1 AND BACK TO BED. DENIES ADDITIONAL NEEDS, CALL LIGHT IN REACH. ASPIRATION AND SEIZURE PRECAUTIONS IN PLACE.
--- NOTE | 2020-05-22 22:00 | NUR ---
PT AWAKE AND RESTING IN BED, NO NEEDS VERBALIZED. CALL LIGHT IN REACH.
--- NOTE | 2020-05-22 23:12 | NUR ---
PATIENT AMBULATED TO BATHROOM AND BACK TO BED. PATIENT IS VERY CONCERNED ABOUT "HOW AM I GOING TO BE ABLE TO DRINK WATER OR EAT BREAKFAST IF IM CONSTIPATED". PATIENT REQUESTING TO TALK TO THE NURSE AT THIS TIME, RN NOTIFIED. PATIENT IN BED, SEIZURE PADS IN PLACE, CALL LIGHT IN REACH.
--- NOTE | 2020-05-22 23:26 | NUR ---
PT RESTING IN BED, PER HEDIS REGISTERED NURSE RN PT WISHES TO TALK TO THIS RN. PT DISCUSSED CONCERN REGARDING ABILITY TO EAT BREAKFAST WHEN SHE IS "CONSTIPATED". DISCUSSED WITH PT HER ORAL INTAKE DURING DAYSHIFT WELL HER RECENT BM'S. CONT. TO REINFORCE EDUCATION ABLE. NO FURTHER NEEDS, LIGHTS OFF AND GLASSES ON BEDSIDE TO PROMOTE SLEEP. CALL LIGHT IN REACH.
--- NOTE | 2020-05-23 00:43 | NUR ---
PT AWAKE AND RESTING IN BED, AGAIN REPORTING DRY MOUTH. SIPS OF ENSURE TAKEN, THERAPEUTIC COMMUNICATION PROVIDED REGARDING PLAN OF CARE. NO ADDITIONAL NEEDS, CALL LIGHT IN REACH.
--- NOTE | 2020-05-23 03:22 | NUR ---
PT RESTING IN BED WITH EYES CLOSED. RR EVEN AND UNLABORED, ASPIRATION AND SEIZURE PRECAUTIONS IN PLACE. NO DISTRESS OR SIGNS OF PAIN NOTED. CALL LIGHT IN REACH.
--- NOTE | 2020-05-23 04:26 | NUR ---
PT HAD AN UNEVENTFUL NIGHT, CALLS APPROPERIATELY. VSS, NO PAIN OR NAUSEA REPORTED. PT CONTINUES TO FIXATE ON INABILITY TO SWALLOW AND REPORTS BEING DEHYDRATED. MEDS GIVEN WITHOUT ISSUE THIS SHIFT. VERBAL EDUCATION PROVIDED ON IMPORTANCE OF VOIDING AND ADAQUATE PO INTAKE. CONTINUE TO ENCOURAGE. FULL LIQUID DIET, ASPIRATION PRECAUTIONS IN [place]. CALORIC COUNT SHEET ALSO IN ROOM. SBA WITH FWW. VOIDING QS, BM X1 THIS SHIFT.
--- NOTE | 2020-05-23 05:49 | NUR ---
INFORMED BY LAB PT REFUSING TO GET AM LAB DRAW COMPLETE. THIS RN IN ROOM TO ASSIST. PT STATES, "WHY ARE YOU TAKING BLOOD FROM A WOMAN". EDUCATION PROVIDED ON NEED FOR BLOOD DRAW. PT THEN ASSISTED SBA WITH FWW TO VOID, PT UPSET AND MAKING REPEATED STATEMENTS SUCH "I'M DYING", "I'M SO DEHYDRATED", AND "I CAN'T BREATH". COMPLETE VS TAKEN AND STABLE, LUNG SOUNDS CLEAR AND DIMINISHED OVERALL. PT UP IN BED DRINKING CLEAR ENSURE, ENCOURAGEMENT PROVIDED. BED ALARM ON FOR SAFETY, CALL LIGHT IN REACH.
--- NOTE | 2020-05-23 07:12 | NUR ---
REPORT RECEIVED FROM MORGAN CURIEL. PT RESTING IN BED. PT ASSISTED WITH DRINKING ENSURE. PT REMAINS HESITANT WITH CARES, ENCORUAGEMENT PROVIDED. PT REPORTS A HEADACHE BUT REFUSES TYELNOL. NO ADDITIONAL REQUESTS OR COMPLAINTS AT THIS TIME. CALL LIGHT WITHIN REACH.
--- NOTE | 2020-05-23 08:54 | NUR ---
MORNING ASSESSMENT AND MEDICATION DUE. PT UP TO CHAIR. PT REFUSES TO FEED SELF STATING "I CAN'T DO IT." PT STRENGTH NORMAL. PT CONTINUALLY TALKS TO SELF STATING "I CANT DO IT." ASSESSMENT DONE. PT DENIES PAIN AND NAUSEA. MEDICATIONS GIVEN. THIS RN ASSISTS PT WITH EATING. WHEN FED, PT IS ABLE TO EAT AND SWALLOW. PT REPORTS SHE IS UNABLE TO EAT, WITH ASSISTANCE WITH EATING PT HAS NO DIFFICULTY OTHER THAN HER OWN REPORT THAT "I CAN'T." CARE TEAM TO BEDSIDE TO DISCUSS PLAN OF CARE WITH PT. PT REMAINS UP TO CHAIR, CALL LIGHT WITHIN REACH. CHAIR ALARM ON.
--- NOTE | 2020-05-23 09:28 | NUR ---
NEW ORDERS PLACED. PT WORKING WITH OCCUPATION THERAPIST TO EAT BREAKFAST. PT TOELRATING WELL. IV PLACED PER PROTOCOL IN LEFT HAND. POTASSIUM GIVEN, SEE EMAR. NO ADDITIONAL REQUESTS OR COMPLAINS. CALL LIGHT WITHIN REACH. OCCUPATIONAL THERPIST REMAINS AT BEDSIDE.
--- NOTE | 2020-05-23 10:30 | NUR ---
THIS RN TO ROOM TO CHECK ON PT. CASE MANAGEMENT CONSULT IN PROGRESS. FAMILY AND PATIENT AGREEABLE TO ASSISTED LIVING PLAN OF CARE. PT DENIES PAIN AND NAUSEA. QUESTIONS ASKED BY PTS MOTHER AND SISTER, QUESTIONS ANSWERED BY THIS RN. PT ASSISTED WITH DRINKING ADDITIONAL ENSURE. NO ADDITIONAL REQUESTS OR COMPLAINTS. CALL LIGHT WITHIN REACH.
--- NOTE | 2020-05-23 11:15 | NUR ---
MET WITH PATIENT, SISTER JONES AND MOTHER IN ROOM. MOTHER HAS SPOKEN WITH ROSEY FROM [facility] AND THEY DISCUSSED PATIENT POSSIBLY GOING TO THEIR ADULT GROUP HOME. FAMILY IS ASKING WHAT I THINK OF THIS. THEY STATE NICKY IS CONCERNED HE WON'T BE ABLE TO GET PATIENT TO EAT AND HE HAS TO WORK. MOTHER CANNOT CARE FOR PATIENT AT HOME. WE DISCUSSED THIS AT LENGTH IN ROOM. I EXPLAINED THAT YES, ASSISTED LIVING WOULD BE A POSSIBLITY AND THAT HER INSURANCE DOES NOT COVER THIS COST SO IT WOULD BE PRIVATE PAY. MOTHER STATES THAT THEY ARE WILLING TO WORK WITH THIS. THEY ASK IF I COULD CONTACT THIS FACILITY TO SEE IF THEY CAN TAKE HER.
--- NOTE | 2020-05-23 11:40 | NUR ---
SPOKE WITH TIMO AT [facility]. WE DISCUSSED PATIENTS NEEDS. SHE STATES THEY WILL HAVE MARIANELA CALL US BACK SHE IS OVER THE ADULT HOMES.
--- NOTE | 2020-05-23 12:00 | NUR ---
ITALO. SPOKE WITH MARIANELA CHANDLER BY PHONE [phone]. DISCUSSED CASE. HER ONLY WORRY IS THAT THEY ONLY HAVE ONE CAREGIVER AT TIMES AND IF SHE NEEDS COMPLETE MEAL FEEDING IT MIGHT BE HARD TO DO THAT. BUT SHE WILL GET WITH ROSEY THIS AFTERNOON AND THEY WILL DISCUSS AND LET US KNOW. MOTHER STILL IN ROOM, UPDATED HER.
--- NOTE | 2020-05-23 12:16 | NUR ---
LUNCH ARRIVED. THIS RN TO ROOM TO CHECK ON PT. PT REPORTS NEED TO USE RESTROOM. 1PERSON ASSIST, FWW UP TO RESTROOM. PT HAS SMALL SOFT BOWEL MOVEMENT. AAKASH CARE DONE. DEPENDS CHANGED. 1PERSON ASSIST, FWW BACK TO CHAIR. PT FEEDING SELF LUNCH WITH SUCESS. MOTHER AT BEDSIDE. CALL LIGHT WITHIN REACH. CHAIR ALARM ON.
--- NOTE | 2020-05-23 13:06 | NUR ---
PT FINISHED WITH LUNCH. ABLE TO EAT ALL OF HER SOUP, SHERBERT AND 1 CLEAR ENSURE INDEPENDANTLY. PT REMAINS UP TO CHAIR, WATCHING TV. NO ADDITIONAL REQUESTS OR COMPLAINTS AT THIS TIME.
--- NOTE | 2020-05-23 14:35 | NUR ---
THIS RN TO ROOM TO CHECK ON PT. PT REPORTS CONSTIPATION. PT ASSURED THAT SHE IS IN FACT HAVING MULTIPLE BOWEL MOVEMENTS. PT UP TO ABMULATE WITH THIS RN IN [place] X1 LAP WITH STANDY BY ASSIST. PT UP TO RESTROOM AFTER AMBULATION AND HAS AN ADDITIONAL SMALL SOFT BOWEL MOVEMENT. IV INFUSION COMPLETE. IV SALINE LOCKED AT THIS TIME. PT UP FOR SHOWER WITH NURSE STAFF INDUSTRIAL. LINENS CHANGED. AAKASH CARE DONE. NURSE STAFF INDUSTRIAL WORKING WITH PT. NO ADDITIONAL REQUESTS OR COMPLAINTS AT THIS TIME. CALL LIGHT WITHIN REACH.
--- NOTE | 2020-05-23 14:51 | NUR ---
PATIENT IN BATHROOM AND NO FAMILY IN ROOM AT THIS TIME. LEFT HANDOUTS ON PROTEIN BOOSTERS, NUTRITIONAL SUPPLEMENTS, AND RECIPES FOR SHAKES AND SMOOTHIES UNDER THE LIST OF FULL LIQUID FOOD ON ONE OF HER BEDSIDE TABLES.
--- NOTE | 2020-05-23 14:51 | NUR ---
PT FINISHED WITH SHOWER. DRESSED IN NEW GOWN AND PANTS. ORAL CARE DONE. MEDICATION GIVEN. PT UP TO CHAIR. WARM BLANKETS PRVIDED. CALL LIGHT WITHIN REACH. CHAIR ALARM ON. NO ADDITIONAL REQUESTS OR COMPLAINTS.
--- NOTE | 2020-05-23 15:20 | NUR ---
REPORT RECIEVED FROM MORGAN BENOIT. PATIENT UP TO CHAIR, DENIES NEEDS AT THIS TIME.
--- NOTE | 2020-05-23 16:28 | NUR ---
PER EKTA'S REQUEST I CALLED COCO WITH SPEECH THERAPY TO LET HER KNOW THAT PATIENT NEEDS DAILY SPEECH THERAPY TREATMENT, COCO INFORMED ME THAT THERE IS NOTHING SHE CAN DO FOR THE PATIENT, SHE WAS VERY POLITE ABOUT IT. I TRANSFERRED THE PHONE CALL TO EKTA.
--- NOTE | 2020-05-23 16:30 | NUR ---
SPOKE WITH HENRY KURTZ AND CASE CLARENCE DASH WHO INFORMED THIS THX THAT IVIS DID NOT WIND UP GETTING PEG TUBE PLACED AND WOULD LIKE FOR DYSPHAGIA THERAPY TO BE RESUMED. BASED OFF OF PREVIOUS DYSPHAGIA EVALUATION, IVIS IS NOT A CANDIDATE FOR SPEECH THERAPY AT THIS TIME SHE PRESENTS WITH PRIMARILY ESOPHAGEAL DYSPHAGIA WHICH IS NOT WITHIN SPEECH THERAPY SCOPE OF PRACTICE AND REQUIRES MANAGEMENTS BY GI DOCTOR. PT WOULD NOT SEE ANY FUNCTIONAL GAINS WITH INTENSIVE SPEECH THERAPY IT WOULD NOT CHANGE UNDERLYING STRUCTURAL AND FUNCTIONAL ESOPHAGEAL DISORDER. I INFORED EKTA THAT IF SHE WOULD LIKE I COULD EVALUATE HER A THIRD TIME, BUT THAT I DID NOT ANTICIPATE IT WOULD CHANGE FINDINGS THIS IS A CHRONIC PHYSIOLOGICAL ISSUE. DURING BOTH PRIOR EVALUATIONS AND ONE TREATMENT SESSION WHICH CONSISTED OF EDUCATION REGARDING ALTERNATIVE NUTRITION AND HYDRATION IN ADDITION TO PO TRIALS, IVIS DID NOT EXHIBIT ANY SIGNS OR SYMPTOMS OF ASPIRATION. SHE DOES PRESENT WITH CHOKING RISK D/T REDUCED ESOPHAGEAL CLEARANCE. IF YOU HAVE ANY QUESTIONS OR CONCERNS I CAN BE REACHED AT [phone].
--- NOTE | 2020-05-23 17:42 | NUR ---
REPORT RECEIVED FROM MORGAN DE LA ROSA. THIS RN RESUMING CARE OF PT. PT UP TO CHAIR AND EATING DINNER. PT ENCOURAGED TO CONTINUE FEEDING SELF. CALL LIGHT WITHIN REACH. NO ADDITIONAL REQUESTS OR COMPLAINTS AT THIS TIME. CHAIR ALARM ON.
--- NOTE | 2020-05-23 18:30 | NUR ---
THIS RN TO ROOM TO CHECK ON PT. PT WAS NOT ABLE TO EAT HER DINNER INDEPENDANTLY. PT STATES "I DONT' KNOW IF I'M DOING IT RIGHT." THIS RN ASSISTED PT WITH DINNER. PT ABLE TO EAT 75% OF DINNER INCLUDING 2 CLEAR ENSURE. NEEDS CONSTANT ENCOURAGEMENT. NO SIGNS OF CHOAKING NOTED. PT RESTING IN CHAIR. CALL LIGHT WITHIN REACH. NO ADDITIONAL REQUESTS OR COMPLAINTS.
--- NOTE | 2020-05-23 18:49 | NUR ---
PT IN TRANSITIONAL CARE PROGRAM FOR MALNUTRITON AND DYSPHAGIA. PT ABLE TO EAT LUNCH INDEPENDANTLY THIS SHIFT. PT CONTINUES TO NEED A LOT OF ENCORUAGEMENT WITH EATING. MULTIPLE ENSURES PROVIDED AND CONSUMED. CALORIE COUNT IN EFFECT, PT EMATING CALORIE GOALS WITH ASSISTANCE. PT UP TO AMBULATE MULTIPLE TIMES THIS SHIFT WITH THIS RN AND WITH PHYSICAL THERAPY. PT HAVING SOFT TO LOOSE BOWEL MOVEMENTS. SHOWER THIS SHIFT. PT VOIDING QUANTITY SUFFICIENT. PT USES CALL LIGHT INCONSISTANTLY. BED/CHAIR ALARM IN PLACE.
--- NOTE | 2020-05-23 19:01 | NUR ---
PT FINISHED WITH SHOWER. FELT COVERER REPORTS PT WAS ABLE TO ASSIST WITH CARES. PT BACK TO BED. FRESH GOWN AND DEPENDS IN PLACE. PT POSITIONED WITH PILLOWS. PT DEMONSTRATES USE OF I.S. REACHING 750ML. NO ADDITIONAL REQUESTS OR COMPLAINTS. BED RAILS UP. CALL LIGHT WITHIN REACH. BED ALARM ON.
--- NOTE | 2020-05-23 19:35 | NUR ---
PT'S CHAIR ALARM SOUNDED. WHEN ASKING WHAT SHE NEEDS SHE SAY "I DON'T KNOW" THEN WENT ON TO TALK ABOUT HOW SHE CANNOT DRINK AND FEELS BLOATED. WHEN ASSURED THAT SHE IS DRINKING FLUIDS AND DOING GOOD AT IT SHE DISAGREES. PT CANNOT VERBALIZE WHAT SHE NEEDS AT THIS TIME OTHER THAN HER CONCERN ABOUT DRINKING. ADVISED PT TO CALL IF SHE NEEDS ANYTHING. CALL LIGHT IS CLOSE AND CHAIR ALARM IS ON.
--- NOTE | 2020-05-23 19:54 | NUR ---
PT'S CHAIR ALARM SOUNDED SHE WAS STANDING BY THE RECLINER. WHEN ASKED WHAT SHE NEEDS SHE CANNOT STATE ANYTHING. THEN STARTS TALKING ABOUT HOW SHE CANNOT DRINK BUT NEEDS SOMETHING TO DRINK. ASSURED HER THAT SHE HAS BEEN DRINKING WELL AND ASKED IF I CAN GET HER SOMETHING ELSE TO DRINK. PT DID NOT WANT ANYTHING TO DRINK. ASKED HER TO STAY IN THE CHAIR AND NOT TO GET UP WITHOUT CALLING. CALL LIGHT IS CLOSE AND CHAIR ALARM IS ON.
--- NOTE | 2020-05-23 21:08 | NUR ---
In chair, bed and chair alarm on.seizure pads, fall, seizure and aspiration precautions in place. Pt continues to require multiple cues and encouragement to take meds and liquids. Sentahir and Ramsey held, has had 9bm's today in am shift. Up to br with 1PA/fww. voided, tolerated well, back to bed. seizure pads in bed, bed alarm on. Much encouragement to drink liquids . Argumentative, irritable, easily redirectable, all procedures explained multiple times. No c/o pain or n/v. Tolerating full liquids well. call light at hands reach, attends in place
--- NOTE | 2020-05-24 00:01 | NUR ---
RESTING, CONTINUES TO BE ON TRANSITIONAL CARE STATUS. CALL LIGHT AT BEDSIDE
--- NOTE | 2020-05-24 01:12 | NUR ---
On room air, resting, no distress, bed alarm on, call light and fluids at bedside
--- NOTE | 2020-05-24 04:35 | NUR ---
Transitional care status. Pt resting, no distress, on room air, turns self in bed, high fall rish, aspiration precautions in place, seizure pads in place. Requires multiple cues and increased reassurance and encouragement to being able to take meds and drink juice. Spent time in chair this shift, bed and chair alarm in place. no emesis, up to br with 1pa/fww,
--- NOTE | 2020-05-24 05:53 | NUR ---
AWAKES EASILY, DECLINED LABS AT THIS TIME, ON ROOM AIR, CALL LIGHT AND FLUIDS AT BEDSIDE, FRESH CLEAR INSURE GIVEN AT THIS TIME, PT ON FULL LIQUIDS, COANTINUES TO REINFORCE INTAKE AND PRAISE EFFORTS, MD TO BE NOTIFIED OF LAB REFUSAL. PT WENT BACK TO SLEEP
--- NOTE | 2020-05-24 06:16 | NUR ---
HELPED PT TO THE BATHROOM AND BACK TO BED WITH HER FWW. BED ALARM SET. BEDSIDE TABLE AND CALL LIGHT IN REACH.
--- NOTE | 2020-05-24 07:40 | NUR ---
dr bazan notified via phone about pts refusing to have lab done. No new orders
--- NOTE | 2020-05-24 07:51 | NUR ---
0723: Report received from Elizabeth MORA. Pt resting in her bed and she denies any complaints. Call hollis within reach and bed alarm is on.
--- NOTE | 2020-05-24 09:01 | NUR ---
RECEIVED MESSAGE FROM MIKEL WOLFE [facility] [phone] ASKING IF PATIENT IS ABLE TO SIGN PAPERWORK. CALLED BACK AND LEFT MESSAGE OF THE AFFIRMATIVE.
--- NOTE | 2020-05-24 10:25 | NUR ---
Pt has her BR in front of her and she states "it's to thick, I can't eat this". ST to the bedside and is working with her at this time and she is taking some bites and she was able to take her AM meds slowly and with much encouragement. Pt continues working with ST and is still eating. See assessment.
--- NOTE | 2020-05-24 10:34 | NUR ---
RECEIVED A PHONE CALL FROM MARIANELA CHANDLER OF [facility]. SHE STATES THEY TOOK AT LOOK AT POSSIBLY TAKING PATIENT BUT HAVE DECIDED THEY CANNOT PROVIDE FEEDING SUPPORT SO ARE TURNING DOWN THE REQUEST.
--- NOTE | 2020-05-24 11:35 | NUR ---
PT AMBULATING IN [place] WITH Hermilo CARR. GAVE ENCOURAGEMENT, PT PT MUMBLED ABOUT BEING A BOTHER AND THAT EVERYONE IS TALKING ABOUT HER BEING A BOTHER. WE BOTH GAVE HER ENCOURAGEMENT AND BLESSING
--- NOTE | 2020-05-24 13:27 | NUR ---
Pt sitting in her chair and continues to slowly eat her lunch. Chair alarm is on and her call hollis is within reach.
--- NOTE | 2020-05-24 15:10 | NUR ---
SPOKE WITH PATIENT IN ROOM. PATIENT STATES SHE IS CONSTIPATED. SHE ALSO STATE SHE THINKS SHE IS EATING THE FOOD WRONG. SHE STATES THERE IS SO MUCH FOOD AND SHE JUST ISN'T SURE IF IT ISN'T GOING AROUND HER STOMACH. SAMPLE GRADER ALYSSA INTO THE ROOM TO GIVE HER A MEDICATION. HE DISCUSSED WITH HER THAT SHE HAS HAD 3 BOWEL MOVEMENTS TODAY. HE REPORTS SHE ATE LUNCH ON HER OWN AND ATE MUCH BETTER. PATIENT WAS VERY RELUCTANT TO TAKE PILL. PATIENT KEPT FORCE BURPING. DISCUSSED WITH PATIENT THAT [facility] HAS DECLINED BEING ABLE TO CARE FOR HER. SHE STATES SHE "VAGUELY" REMEMBERS HER MOM ASKING ABOUT THIS. DISCUSSED WITH HER ANOTHER ASSISTED LIVING FAC[facility] AND THAT THEY HAVE A EATING PROGRAM THAT THEY COULD HELP HER WITH HER FOOD. PATIENT NON-COMMITAL ABOUT THIS. ASKED WHAT HER PLANS FOR WHERE SHE IS GOING WHEN SHE LEAVES THE HOSPITAL. PATIENT IS NOT ABLE TO ANSWER THIS. PATIENTS RESPONSES REMAIN ON THE SLOW SIDE AND SHE IS VERY FOCUSED ON EATING ISSUES. CASE MANAGEMENT WILL CONTINUE TO FOLLOW.
--- NOTE | 2020-05-24 15:31 | NUR ---
PT working with OT at this time.
--- NOTE | 2020-05-24 15:38 | NUR ---
THE PATIENT,OCCUPATIONAL THERAPY AND I WALKED 372 FEET AROUND MED SURG.
--- NOTE | 2020-05-24 17:29 | NUR ---
Pt states she needs to have a bm and was helped to the BR. Pt did not have a bm and complaints of being constipated. She has had several bowel movements today and many yesterday. Pt was informed of this but does not agree with this. Pt helped back to her chair and alarm is on. Pt's mother to the bedside and she states this has been normal for her for some time now and that she will not be convinced. Pt now eating her dinner which she states she can't eat but is doing so. Will continue to monitor.
--- NOTE | 2020-05-24 19:41 | NUR ---
PATIENT UP TO THE BATHROOM AT THIS TIME.
--- NOTE | 2020-05-24 20:38 | NUR ---
PATIENT CHAIR ALARM GOING OFF, PATIENT STANDING BY BEDSIDE RECLINER. PATIENT AMBULATED TO BED WITH ASSISTANCE. PATIENT RESTING, CALL LIGHT IN REACH. DECLINES PM CARE, DECLINES NEED TO USE THE BATHROOM AT THIS TIME.
--- NOTE | 2020-05-24 20:46 | NUR ---
charge nurse rounding note:, In bed, seizures pads in place. On room air, no c/o sob or pain at this time. has had several bms this am, continues to have fixation with bowels not working. Aspiration precautions, encouraged to drink fluids by self w/o fear of choking, ensure at bedside. Pt calm at this time Bed and chair alarm, call light at bedside
--- NOTE | 2020-05-24 21:32 | NUR ---
PATIENT STILL RESISTANT TO TAKING MEDICATIONS , BUT WITH ENCOURAGEMENT SHE IS TAKING THEM FINE WITHOUT DIFFICULTY. PATIENT RESTING IN BED WATCHING TV.
--- NOTE | 2020-05-24 22:30 | NUR ---
PATIENT IN BED RESTING, WITH NO NEEDS AT THIS TIME. CALL LIGHT IN REACH.
--- NOTE | 2020-05-24 22:40 | NUR ---
PATIENT ENCOURAGED TO AMBULATE TO BATHROOM TO VOID. PATIENT EXPRESSES CONCERNS ABOUT BEING DEHYDRATED IF SHE VOIDS. PATIENT AMBULATES TO BATHROOM AND BACK TO BED, SEIZURE PADS IN PLACE, BED ALARM ON, CALL LIGHT IN REACH. PATIENT ENCOURAGED TO DRINK HER ENSURE.
--- NOTE | 2020-05-25 00:28 | NUR ---
PATIENT RESTING IN BED, EYES OPEN. CALL LIGHT IN REACH. PATIENT ENCOURAGED TO DRINK HER ENSURE. SEIZURE PADS IN PLACE, BED ALARM ON.
--- NOTE | 2020-05-25 01:03 | NUR ---
PATIENT RESTING QUIETLY IN BED, EYES CLOSED, RESPIRATIONS REGULAR AND EVEN. CALL LIGHT IN REACH.
--- NOTE | 2020-05-25 03:15 | NUR ---
PATIENT RESTING QUIETLY AND HAS NO NEEDS, AND HAS NOT SLEPT MOST OF THE NIGHT. CALL LIGHT IN REACH.
--- NOTE | 2020-05-25 05:44 | NUR ---
GOT PATIENT UP TO THE BATHROOM X2 DURING THE SHIFT TO URINATE, PATIENT SAID SHE WAS TO DEHYDRATED TO URINATE, BUT SHE DID. PATIENT SAID SHE COULD NOT TAKE HER EVENING MEDS, BUT SHE DID WITHOUT DIFFICULTY. PATIENT PRETTY MUCH WILL TELL YOU THE OPPOSITE OF EVERTHING YOU ARE TRYING TO HELP HER WITH, BUT SHE DOES JUST FINE. PATIENT KNOWS WHERE AND WHO SHE IS, BUT DOES NO SEEM ORIENTED BEYOND THAT. BED ALARM ON. SEIZURE PADS IN PLACE, WATER AND CALL LIGHT IN REACH.
--- NOTE | 2020-05-25 05:57 | NUR ---
PATIENT AMBULATED TO BATHROOM AND BACK TO BED. SEIZURE PADS IN PLACE, CALL LIGHT IN REACH, BED ALARM ON, PATIENT SIPPING ON AN ENSURE AT THIS TIME.
--- NOTE | 2020-05-25 07:32 | NUR ---
RECEIVED REPORT FROM LUDIN MORA. PT IN BED AWAKE AT THIS TIME. DISCUSSED WITH PT THAT THIS RN WILL BE HER RN TODAY. PT STATED "I DON'T KNOW HOW MUCH YOU CAN DO FOR ME" DISCUSSED WITH PT WHAT WE ARE DOING FOR HER. PT NOT AGREEABLE TO THIS. THIS RN DISCUSSED WITH PT THAT SHE WILL BE BACK LATER.
--- NOTE | 2020-05-25 09:55 | NUR ---
IN PTS ROOM TO GIVE PTS MORNING MEDS. PT STATING THAT SHE CAN'T TAKE HER MEDS. DISCUSSED WITH PT THAT SHE HAS BEEN TAKING HER MEDS. PT GIVING THIS RN EVERY EXCUSE SHE CAN TO NOT TAKE HER MEDS. THIS RN EDUCATED PT WHY SHE NEEDS TO TAKE HER MEDS. ROYAL FROM PHYSICAL THERAPY IN ROOM AT THIS TIME WELL, SHE ASSISSTED THIS RN TO HELP EDUCATE PT TO TAKE HER MEDS. PT DID TAKE HER MEDS.
--- NOTE | 2020-05-25 12:00 | NUR ---
PT SET OFF CHAIR ALARM WHEN SHE STOOD. THIS RN IN ROOM TO CHECK ON PT. PT REPORTING THAT SHE CAN'T EAT WHAT IS ON HER TRY. THIS RN CAN THE PT A BITE OF EACH THING ON HER TRAY. PT BECAME AGREEABLE TO TRY TO EAT HER FOOD. PT STILL THINKS THAT HER THROAT DOESN'T WORK. THIS RN SPENT TIME TRYING TO EDUCATE PT THAT SHE CAN EAT HER FULL LIQUID DIET
--- NOTE | 2020-05-25 17:00 | NUR ---
PT UP TO WALK IN THE HALLS AT THIS TIME
--- NOTE | 2020-05-25 20:34 | NUR ---
PATIENT SITTING UP IN THE BEDSIDE ARMCHAIR TRYING TO FINISH DINNER. PATIENT'S MOTHER WAS VISITING, BUT HAS NOW GONE HOME. CALL LIGHT IN REACH.
--- NOTE | 2020-05-25 21:45 | NUR ---
PATIENT TOOK HER EVENING MEDS WELL TONIGHT, USED HER WALKER TO GO INTO THE RESTROOM AND VOID AND THEN BRUSHED HER TEETH AND GOT INTO BED. CALL LIGHT IN REACH AND BED ALARM ON. SEIZURE PADS IN PLACE.
--- NOTE | 2020-05-25 22:57 | NUR ---
PATIENT LAYING ON HER RIGHT SIDE, EYES CLOSED, RESPIRATIONS REGULAR AND EVEN, CALL LIGHT IN REACH. BED ALARM ON.
--- NOTE | 2020-05-26 01:08 | NUR ---
PATIENT RESTING QUIETLY ON HER RIGHT SIDE, EYES CLOSED, RESPIRATIONS REGULAR AND EVEN, CALL LIGHT IN REACH AND BED ALARM ON.
--- NOTE | 2020-05-26 03:28 | NUR ---
PATIENT RESTING IN BED WATCHING TV. NO NEEDS AT THIS TIME. CALL LIGHT IN REACH.
--- NOTE | 2020-05-26 04:43 | NUR ---
PATIENT HAS SLEPT ON AND OFF THROUGH THE NIGHT. PATIENT TOOK HER PM MEDS WELL AND VOIDED WELL IN THE RESTROOM WITH 1PA AND FWW BEFORE GOING TO BED. PATIENT CURRENTLY RESTING QUIETLY WITH EYES CLOSED AND CALL LIGHT IN REACH WITH BED ALARM ON.
--- NOTE | 2020-05-26 07:35 | NUR ---
RECEIVED REPORT FROM LUDIN MORA. PT BACK TO BED AT THIS TIME AND APPEARS TO BE RESTING COMFORTABLY AT THIS TIME WITH RESPIRATIONS NOTED
--- NOTE | 2020-05-26 08:18 | NUR ---
PATIENT SAID SHE WAS TOO WEAK TO GET UP "I DONT HAVE ENOUGH NUTRIENTS IN MY BODY" IS WHAT SHE SAID TO THIS SHADE MAKER, THIS SHADE MAKER TRIED CONVINCING THE PATIENT SHE WAS ABLE TO EAT A LITTLE AND ENCOURAGED HER TO TAKE DRINKS OF HER CLEAR ENSURE JUICE AND THE PATIENT SAID "I DONT HAVE ENOUGH ENERGY TO DO ANY OF THIS". THIS SHADE MAKER REPORTED THIS TO THE NURSE AND WILL READDRESS PATIENT SOON FOR MORE ENCOURAGEMNET
--- NOTE | 2020-05-26 09:10 | NUR ---
IN PTS ROOM TO GIVE MEDS. PT REFUSING TO GET OUT OF BED THIS AM. PT STATING THAT SHE CANNOT EAT CREAM OF WHEAT, ALTHOUGH THIS RN NOTICED THAT A FEW BITES OF IT HAD ALREADY BEEN TAKEN BY PT WITHOUT STAFF IN ROOM. PT ALSO STATING THAT SHE WONT TAKE HER MEDS, BUT WHEN MEDS ARE PLACED IN FRONT OF HER MOUTH SHE TAKES THEM NO PROBLEM. PT REPORTS SHE CAN'T GET ANYTHING INTO HER MOUTH BUT WHEN THIS RN HANDED PT WATER AND PUT THE STRAW TO HER LIPS SHE TOLERATED DRINKING THE WATER WELL
--- NOTE | 2020-05-26 10:49 | NUR ---
IN PTS ROOM TO GET VITALS. PT LOUDLY STATED "NO NOT WHILE I AM EATING" DISCUSSED WITH PT THAT THIS RN WILL BE BACK TO TAKE THEM LATER
--- NOTE | 2020-05-26 11:54 | NUR ---
IN PTS ROOM, PT EARLIER REFUSED TO GET OUT OF BED TO GO PEE. THIS RN IN PTS ROOM WITH CEDRIC LIANG TO GET PT UP TO THE RESTROOM AND GET VITALS. WITH A LOT OF COAXING THIS RN AND CEDRIC LIANG ABLE TO GET PT TO VOID AND GOT VITALS. PT KEPT SAYING "WHY ARE YOU DOING THIS TO ME?" THIS RN EDUCATED PT THAT THIS IS DOCTORS ORDERS TO KEEP HER HEALTHY AND SAFE.
--- NOTE | 2020-05-26 15:14 | NUR ---
in pts room giving afternoon meds. pt very concerned about how her parents are going to pay for her stay in the hospital, this rn attempted to reassure pt at this time
--- NOTE | 2020-05-26 19:17 | NUR ---
REPORT RECEIVED FROM NURSE MONTILLA. NO REQUESTS FROM PT AT THIS TIME.
--- NOTE | 2020-05-26 21:58 | NUR ---
PT STANDING AT BEDSIDE TABLE THIS NURSE ENTERED ROOM. PT VERY AGGITATED AND UNCOOPERATIVE ABOUT SITTING DOWN OR LAYING DOWN IN BED. PT KEEPS REPEATING " SOLAR, I NEED TO PAY SOLAR". PT IS VERY CONCERNED THAT IF THIS NURSE HELPS HER, THE PT WILL HAVE TO PAY MORE. WITH 2PA PT BROUGHT TO BED. BED ALARM ON, SEIZURE PADS ON BED RAILS. CALL LIGHT WITHIN REACH.
--- NOTE | 2020-05-26 22:10 | NUR ---
ASSESSMENT COMPLETE. PT CONTINUES TO SPEAK OF HER BILLS AND PAYING FOR HER STAY HERE. PTS THOUGHTS ARE INCONSISTENT, SCATTERED. PT REPEATED THAT SHE COULD NOT TAKE HER MEDICATIONS BECAUSE SHE "HAD NO THROAT". PT WAS ABLE TO SWALLOW WELL DESPITE HER WORRIES. CALL LIGHT WITH IN REACH, BED ALARM ON, SEIZURE PADS IN PLACE.
--- NOTE | 2020-05-27 01:30 | NUR ---
ROUND COMPLETE. PT SLEEPING WITH EVEN UNLABORED BREATHING. NO APPARENT SIGNS OF DISTRESS. CALL LIGHT WITHIN REACH, BED ALARM ON.
--- NOTE | 2020-05-27 04:53 | NUR ---
ROUND COMPLETE. PT SLEEPING. EVEN AND UNLABORED BREATHING. NO APPARENT DISTRESS.
--- NOTE | 2020-05-27 05:22 | NUR ---
PT SLEPT WELL ONCE SHE CALMED DOWN. AT THE BEGINNING OF SHIFT PT WAS NEARLY INCONSOLABLE ABOUT HER BILLS AND HAVING TO PAY "THE SOLAR". PT SPOKE IN BROKEN SENTENCES AND REPEATED HER THOUGHTS. PT WAS WORRIED WHEN TAKING HER MEDICATIONS THAT THEY WOULD "NOT GO WHERE THEY ARE SUPPOSED TO" BECAUSE PT WAS CONVINCED SHE "HAD NO THROAT". PT DID OK WITH PILLS SHE TOOK. PT DID TRY TO CHEW THEM RATHER THAN SWALLOW AT FIRST. USED ICE CREAM TO HELP HER SWALLOW. NO CHOKING OR SIGNS OF ASPIRATION. AFTER MED PASS, PT SLEPT THE ENTIRE NIGHT.
--- NOTE | 2020-05-27 05:28 | NUR ---
ROUND COMPLETE. PT STILL SLEEPING WITH EVEN BREATHING. NO APPARENT SIGNS OF DISTRESS.
--- NOTE | 2020-05-27 05:47 | NUR ---
PATIENT AMBULATED TO BATHROOM AND BACK TO BED. PATIENT BELONGINGS AT BEDSIDE, CALL LIGHT IN REACH, BED ALARM ON, SEIZURE PADS IN PLACE, NO FURTHER NEEDS AT THIS TIME.
--- NOTE | 2020-05-27 07:14 | NUR ---
RECEIVED REPORT FROM SIMI MORA. PT APPEARS TO BE SITTING UP IN BED. PT HAS CALL LIGHT WITHIN REACH AND BED ALARM ON AT THIS TIME
--- NOTE | 2020-05-27 09:00 | NUR ---
IN PTS ROOM TO GIVE MORNING MEDS AND DO ASSESSMENT. PT WANTING TO BE NONCOMPLIANT WITH GETTING OUT OF BED AND UP TO CHAIR TODAY. NAUN INJECTION MOLDING SUPERVISOR ABLE TO GET PT UP TO CHAIR FOR BREAKFAST. PT STATING THAT HER LIPS DON'T WORK AND HER THROAT DON'T WORK. THIS RN DISCUSSED WITH PT THAT IF SHE IS TALKING HER THROAT IS WORKING. PT DID TAKE ALL MORNING MEDS AFTER SOME EDUCATION FROM THIS RN. PT ASKING "WHY ARE YOU DOING THIS TO ME?" THIS RN EDUCATED PT ON THE TOPIC OF WHY SHE IS TAKING HER MEDS AND WHY THIS RN IS TYRING SO HARD TO HAVE HER TAKE HER MEDS. THIS RN DISCUSSED WITH PT THAT SHE SHOULD TRY TO "TRUST" THE STAFF THAT THEY HAVE HER BEST INTEREST AT HEART. PT HAD NO COMMENT TO ADD TO THIS.
--- NOTE | 2020-05-27 09:29 | NUR ---
SPOKE WITH PATIENTS SISTER JONES BY PHONE. SHE STATES SHE WAS HERE YESTERDAY AND SPOKE WITH PATIENT. WE DISCUSSED [facility]. SHE STATES SHE AND HER MOM DROVE BY THERE OVER THE WEEKEND. I ENCOURAGED THEM TO CALL THE FACILITY TODAY AND TALK WITH THEM REGARDING FINACIAL ARRANGEMENT. DISCUSSED WE ARE LOOKING AT DISCHARGE TOMORROW. SHE STATES THEY WILL DO THAT. SHE HAD MANY QUESTIONS ABOUT WHAT TO DO GOING FORWARD TO FIGURE OUT WHAT IS GOING ON, I EXPLAINED THAT WILL NEED TO BE ARRANGED FROM THE OUTPATIENT SIDE. SHE STATES THAT THEY TRIED TO HAVE HER SEE SOMEONE BUT THE APPOINTMENT WAS CANCELLED DUE TO COVID. EXPLAINED THAT SOME THINGS ARE STARTING TO BE DONE AGAIN SO HOPEFULLY SOON SHE CAN GET IN TO A SPECIALIST. EXPLAINED THAT THE MOST IMPORTANT THING IS SHE HAS A SAFE PLACE TO GO WHO WILL HELP HER WITH MEDS, CONT THERAPY AND WORK ON HER EATING PROGRAM. SHE STATES UNDERSTANDING. CALLED [facility]. RONI, SWITCH OPERATORS SUPERVISOR, WILL BE COMING UP THIS AFTERNOON FOR ASSESSMENT.
--- NOTE | 2020-05-27 10:38 | NUR ---
LILLY FROM PHYSICAL THERAPY PUT ON PTS CALL LIGHT TO NOTIFY STAFF THAT PT STATED THAT SHE "THINKS SHE MESSED HER PANTS" THIS RN ENTEREDT TO FIND THAT PT HAD BEEN INCONTIENT OF STOOL. THIS RN CLEANED PT UP AND HAD PT PUT ON CLEAN ATTENDS, PANTS AND GOWN. PT ABLE TO FINISH TIME WITH PHYSICAL THERAPYAFTER PT WAS INCONTINENT
--- NOTE | 2020-05-27 13:35 | NUR ---
SPOKE WITH PATIENT IN ROOM. DISCUSSED THAT LES FROM [facility] IS COMING TODAY TO MEET HER AND TALK WITH HER ABOUT STAYING THERE WHILE SHE CONTINUES RECOVERY. PATIENT HAS FOOD TRAY ON TABLE. IS SITTING IN CHAIR. IS NOT EATING. LOOKS LIKE SHE HAS TAKEN BITES OF [place] ONLY. ENCOURAGED TO EAT. PATIENT STATES SHE WAS TOLD SHE CAN'T LEAVE HERE UNTIL SHE PAYS HER HOSPITAL BILL. TRIED TO ASSURE HER THAT THIS IS NOT TRUE. PATIENT STATING "I CAN'T EAT SO I DON'T KNOW HOW I CAN GO". EXPLAINED THAT SHE WILL CONTINUE WORKING ON THIS OUTPATIENT. PATIENT AGAIN WORRIED ABOUT BILLING. EXPLAINED SHE HAS INSURANCE THAT WILL MOST LIKELY PAY ALL OF HER BILL. THAT WE HAVE BEEN IN CONTACT WITH THEM AND THEY KNOW WHY SHE IS HERE. PATIENT VERY FOCUSED ON BILLING AND FOOD. AGAIN ENCOURAGED HER TO TAKE BITES OF SOUP AND DRINK HER ENSURE. PATIENT MUMBLES AT TIMES. STAFF AWARE SHE IS UP IN CHAIR.
--- NOTE | 2020-05-27 14:16 | NUR ---
Visited with PT who said she was struggling to eat and worried she was upsetting the staff by not doing what they want her to do. I tried to encourage her and remind her that she is worth taking care of and that she has the power to care for herself. She welcomed me to pray for her.
--- NOTE | 2020-05-27 14:56 | NUR ---
PATIENT REMAINS ON FULL LIQUID DIET. CALORIE COUNT FROM 05/24/20: APPROX 955 CALORIES CONSUMED, THOUGH ONE OF THE ENSURE CLEARS WAS NOT DOCUMENTED PATIENT WAS STILL WORKING ON CONSUMING. FROM 05/25/20: ONLY 10% OF BREAKFAST DOCUMENTED FOR 44 CALORIES. PATIENT'S INTAKE FROM LUNCH AND DINNER NOT DOCUMENTED. FROM 05/26/20: PATIENT CONSUMED APPROX 344 CALORIES TOTAL. DIETARY WILL CONTINUE TO SEND ENSURE CLEAR COOK FLAVOR WITH MEALS SINCE SHE DOES NOT TOLERATE ENSURE ENLIVE. PER SPEECH THERAPY, PATIENT MAY DO OK WITH PUREED FOODS. DIET ORDER HAS NOT CHANGED - STILL REMAINS FULL LIQUIDS.
--- NOTE | 2020-05-27 15:32 | NUR ---
IN PTS ROOM TO GIVE PT HER AFTERNOON MEDS. PT CONCERNED ABOUT HER SWALLOWING. THIS RN DISCUSSED WITH PT THAT SHE HAD THE SWALLOW STUDY DONE TODAY AND THAT SHE IS ABLE TO SWALLOW WITHOUT ANY PROBLEMS PER THAT SWALLOW EVAL PT STILL UP TO THE CHAIR AT THIS TIME.
--- NOTE | 2020-05-27 16:20 | NUR ---
SPOKE WITH RONI FROM [facility] BY PHONE. HE STATES HE DID ASSESSMENT AND THEY FEEL THEY CAN PROVIDE CARE FOR PATIENT. HE STATES RILEY AT [facility] SPOKE WITH SISTER JONES BY PHONE AND THEY ARE WORKING ON DETAILS OF PAYMENT. DISCUSSED WITH HIM THAT MIKEL FROM [facility] CALLED EARLIER AND IS SENDING PAPERWORK FOR PATIENT TO SIGN FOR MEDICAID.
--- NOTE | 2020-05-27 17:25 | NUR ---
THIS RN WALKED BY PTS ROOM. PT SITTING UP TO CHAIR AT THIS TIME.
--- NOTE | 2020-05-27 17:42 | NUR ---
THIS RN WALKING PAST PTS ROOM AGAIN AND NOTICED THAT KATARINA RN WAS IN PTS ROOM WITH PT ON HER HANDS KNEES FACING THE CHAIR AT THIS TIME. KATARINA MORA STATED THAT WHEN SHE FOUND PT IT LOOKED THOUGH PT WAS "LOOKING FOR SOMETHING ON THE GROUND" MD AND CHARGE NURSE WERE NOTIFIED OF THE INCIDENT. PT SAFELY BACK TO BED WITH BED ALARM ON AT THIS TIME. PT WAS UNABLE TO ANSWER THE QUESTION OF WHY SHE WAS ON THE GROUND.
--- NOTE | 2020-05-27 19:28 | NUR ---
PATIENT UP TO BATHROOM AND BACK TO BED, 1PA FWW. CALL LIGHT IN REACH. BED ALARM ON. NO FURTHER NEEDS AT THIS TIME
--- NOTE | 2020-05-27 19:30 | NUR ---
REPORT RECEIVED FROM DAY SHIFT RN. PT UP TO BR WITH MOLECULAR BIOLOGIST ASSIST AND FWW. NO NEEDS AT THIS TIME. WHITE BOARD UPDATED.
--- NOTE | 2020-05-27 22:49 | NUR ---
EVENING ASSESSMENT COMPLETE. SCHEDULED MEDS ADMINISTERED PER EMAR. NO SWALLOWING ISSUES OR ASPIRATION NOTED. PT WITH REPETITIVE SPEECH, "WHAT ARE YOU DOING TO ME", REASSURANCE WITH CARES PROVIDED. PT NOT RECEPTIVE AND NOT PARTICIPATING WELL WITH ASSESMENT. ENCOURAGED PT TO DRINK ENSURE. SEIZURE PADS IN PLACE. BED ALARM ON. CALL LIGHT IN REACH.
--- NOTE | 2020-05-28 00:32 | NUR ---
PT RESTING IN BED WITH EYES CLOSED, NAD. SEIZURE PADS IN PLACE. BED ALARM ON.
--- NOTE | 2020-05-28 03:28 | NUR ---
PT RESTING IN BED WITH EYES CLOSED. RESPIRATIONS EVEN AND UNLABORED. SEIZURE PADS IN PLACE. BED ALARM ON.
--- NOTE | 2020-05-28 04:27 | NUR ---
IN TO REPOSITION PT. AWAKENS TO VERBAL STIMULI BUT DOES NOT RESPOND TO QUESTIONS. BED ALARM ON. CALL LIGHT IN REACH.
--- NOTE | 2020-05-28 06:42 | NUR ---
PT REQUIRED EXTENSIVE QUEING AND ENCOURAGEMENT TO GET OUT OF BED. UP TO BR WITH FWW AND 2PA TO VOID 100 ML. PT ALLOWED TO SIT ON TOILET FOR SUFFICIENT AMOUNT OF TIME. BACK TO BED, DASIA WELL. PT GRABBING AT [place] AFTER RETURNING TO BED. BLADDER SCANNED FOR 269ML. PT NOT RESPONDING TO QUESTIONS REGARDING IF SHE STILL NEEDS TO VOID. REPORTED TO INTELLECTUAL PROPERTY PARALEGAL. INTELLECTUAL PROPERTY PARALEGAL WILL PASS INFO ALONG TO DR AT MORNING MEETING.
--- NOTE | 2020-05-28 07:24 | NUR ---
START OF SHIFT... PT IS RESTING IN BED EYES CLOSED. ANKIT MORA STEM TEACHER SAID SHE IS REFUSING TO VOID SHE IS CONCERNED ABOUT DEHYDRATION. SHE HAS BEEN BLADDER SCANNED FOR 269ML THIS AM.
--- NOTE | 2020-05-28 07:30 | NUR ---
[facility] Fax requested I ask pt to read and make any changes needed.
--- NOTE | 2020-05-28 08:50 | NUR ---
[facility] assessment taken to pt and explained she needs to read and sign.
--- NOTE | 2020-05-28 12:38 | NUR ---
PT CONSUMED OVER HALF HER BREAKFAST AND IS NOW EATING ON LUNCH, SHE IS SITTING UP IN RECLINER. SHE VERBALIZES CONCERN THAT FOOD IS NOT GOING INTO HER STOMACH IT IS GOING SOMEWHERE ELSE. PT HAD KILO SWALLOW EVAL Wednesday05/27/20 THIS SHOULD NO ISSUES/ASPIRATIONS. PT ENCOURAGED TO EAT AND MONITORED CLOSE. CALORIE COUNT IN PLACE.
--- NOTE | 2020-05-28 13:40 | NUR ---
Returned x 3 to ask if pt has signed papers. She is very focused on funds and if she will have a bill at the hospital. Pt has not attempted to sign papers. Asked if she would like help and read form to pt, which was completed by pt's mother. Pt never completes signing. Attempted to have pt sign letter of dc from [facility], Flor readsand rereads form several times, but never signs. Informed I will call her mom to assist her. Attempted to call mom x 2, but phone is busy.
--- NOTE | 2020-05-28 15:13 | NUR ---
PT UP IN RECLINER, CASE MANAGEMENT DISCUSSING DISCHARGE PLAN AND RESOURCES AVAILABLE
--- NOTE | 2020-05-28 15:31 | NUR ---
AFTERNOON BUSPAR PO SCHEDULED TO BE GIVEN. PT SAID IT WONT GO THROUGH POINTING TO HER STOMACH. DISCUSSED FINDINGS FROM YESTURDAY SWALLOW PROCEDURE AGAIN, THAT THE FOOD IS MOVING THROUGH, PT EDUCATED THAT SHE HAS THE RIGHT TO REFUSE ANYTHING SHE DOES NOT WANT. THAT I CAN CHART AND NOTIFY THE DOCTOR THAT SHE DECLINES TO TAKE. SHE SHOOK HER HEAD NO, AND NARROWED HER EYES AT ME IN A GLARE. THE PILL PLACED ON SPOON WITH APPLESAUCE AND PLACED TO HER MOUTH SHE OPENED HER MOUTH AND WILLING TOOK IT. PT IS ENCOURAGED TO TRY TO EAT MORE OF HER LUNCH TRAY.
--- NOTE | 2020-05-28 16:22 | NUR ---
PT HAS BEEN UP IN CHAIR FOR ALL MEALS, CONTINUE TO ENCOURAGE NUTRITIONAL INTAKE AND FLUID INTAKE. SHE CONTINUES TO HAVE CONCERNS ABOUT HER ABILITY TO SWALLOW AND WHERE THE FOOD AND LIQUIDS ARE GOING, LOTS OF EDUCATION AND RE-ASSURANCE THAT IMAGES FROM SWALLOW PROCEDURE YESTURDAY INDICATED THAT THE LIQUIDS AND FOOD ARE IN FACT GOING TO THE STOMACH. SHE IS A ONE PERSON WITH FWW IF SHE IS WILLING TO PARTICIPATE. HER GAIT IS STEADY, WITH GOOD STRENGTH.
--- NOTE | 2020-05-28 17:15 | NUR ---
Notified by Rn, pt's mother Zahira is here and would like to speak. In and spoke with Flor and Zahira. Mom states she has POA for Flor which she is attempting to get from clinical review specialist's office. She reviewed [facility] assessment and discussed it with Flor. Flor frequently asking if she is going to have a hospital bill and where is the information on the papers. She asks this RN to explain papers. Papers read to pt. She asks several times what this papers are for and I explained this is an assessment form [facility] to determine if they can assist her financially. Pt attempted a few times to sign or initial papers. Pt is not able to sign Pt does not seem able to process what she is needs to do with the pen. Mother signs papers. Informed we will need to have the poa papers for her to sign paper work for the hospital. Zahira has a copy of the draft with her, but states the complete form is at the attorneys office. Mom signed [facility] papers and Notification of Discharge from [facility] form with Flor's approval. Mom visited with Flor about going to [facility] tomorrow and Flor becomes agitated. Asking where she is going and how she will get there. Mom reassured her she will be in town and will be with people who will care for her. Pt is eating dinner and eats her ice cream without any problems. Pt also has thinned mashed potatoes and gravy which are the same consistency. Mom gives pts bites of potates, pt begins gagging. Mom reminds her they are thinner than the ice cream. Pt complains she cannot swallow. Rn in room and mother has questions about barium swallowing test and informed by RN it was wnl pt did not aspirate. She also informed mom, pt is able to take pills with encouragement and patience. Spent 1 hour with pt and mother, frequently answering the same questions.
--- NOTE | 2020-05-28 17:51 | NUR ---
PATIENTS MOTHER IS IN THE ROOM VISITNG AND DISCUSSING PLAN OF CARE WITH [facility] DIRECTOR VOICE/DISCHARGE TECHNICAL SERVICE REPRESENTATIVE, ALSO [facility] IS PRESENTING PAPERS FOR RESOURCES TO MOTHER AND PATIENT FOR ONGOING CARE.
--- NOTE | 2020-05-28 19:13 | NUR ---
PATIENT UP TO BATHROOM AND BACK TO CHAIR, 1PA FWW. BEDBATH GIVEN. NEW GOWN PROVIDED. CALL LIGHT IN REACH. NO FURTHER NEEDS AT THIS TIME.
--- NOTE | 2020-05-28 19:30 | NUR ---
REPORT RECEIVED FROM DAY SHIFT RN. PT UP WITH RESIDENTIAL SUPERVISOR TO BR. NO NEEDS AT THIS TIME. WHITE BOARD UPDATED.
--- NOTE | 2020-05-28 21:00 | NUR ---
EVENING ASSESSMENT COMPLETE. SCHEDULED MEDS ADMINISTERED PER EMAR. NO SWALLOWING ISSUES OR ASPIRATION NOTED. PT UP TO BR WITH LOTS OF ENCOURAGEMENT. NO VOID. SURVEYOR CHAIN HELPER ASSISTED WITH PM CARES. BACK TO BED, DASIA FAIR. SEIZURE PADS IN PLACE. BED ALARM ON. CALL LIGHT IN REACH.
--- NOTE | 2020-05-29 01:42 | NUR ---
PT RESTING IN BED WITH EYES CLOSED, NAD.
--- NOTE | 2020-05-29 06:32 | NUR ---
PT UP TO BR WITH WELLNESS PROGRAM MANAGER ASSIST TO VOID. BACK TO BED, DASIA WELL. DENIES NEEDS. SEIZURE PADS IN PLACE. BED ALARM ON.
--- NOTE | 2020-05-29 07:23 | NUR ---
Signed papers from [facility] faxed to Karina at [facility]. Notified pt will dc today.
--- NOTE | 2020-05-29 08:15 | NUR ---
MORNING ASSESSMENT DONE, PATIENT UP TO CHAIR FOR BREAKFAST, DENIES NAUSEA, ENDORSES HEADACHE, DIFFICULT TO ASSESS HEADACHE PAIN LEVEL. PATIENT DISORIENTED, PER BASELINE.
--- NOTE | 2020-05-29 08:33 | NUR ---
MORNING ASSESSMENT DONE. MORNING MEDICATIONS GIVEN, PATIENT MOSTLY CHEWED MEDS. BITES OF BREAKFAST. PATIENT ENCOURAGED TO EAT BREAKFAST, DRINK FLUIDS.
--- NOTE | 2020-05-29 09:15 | NUR ---
Called and spoke with Feli from [facility]. She states room is ready and pt can admit at any time. In and spoke with Cherrie. Updated she is going to [facility] today. Informed I have spoken with her mom and she will meet her there.
[2020-05-29] MEDS ORDERED: ACETAMINOP160 MG/54 PO (09:16)
[2020-05-29] MEDS ORDERED: LEVETIRACE100 MG/1 M PO (09:16)
[2020-05-29] MEDS ORDERED: TRAZODONE HCL50 MG PO (09:17)
[2020-05-29] MEDS ORDERED: FLUOXETINE HCL10 MG PO (09:17)
[2020-05-29] MEDS ORDERED: POLYETHYLENE GL17 GM PO (09:18)
[2020-05-29] MEDS ORDERED: POTASSIUM20 MEQ/15 PO (09:18)
[2020-05-29] MEDS ORDERED: DOK PLUS TABLE1 EACH PO (09:18)
--- NOTE | 2020-05-29 09:59 | NUR ---
PATIENT SITTING UP IN CHAIR, WON'T EAT ANY OF HER BREAKFAST. INSISTS THIS MUSIC TEACHER IN TORTURING AND CHOKING HER. TRAY REMOVED, BUT LEFT CARTON OF ENSURE. FRESH WATER IN CUP. VITALS AND I&OS CHARTED.
--- NOTE | 2020-05-29 10:26 | NUR ---
PATIENT UNABLE TO REVIEW DISCHARGE INSTRUCTIONS. PATIENT WALKING WITH PHYSICAL THERAPY.
--- NOTE | 2020-05-29 10:57 | NUR ---
PATIENT IS DRESSED AND READY FOR DISCHARGE. PERSONAL ITEMS PACKED, CELL PHONE AND GLASSES ARE IN HER BAG.
--- NOTE | 2020-05-29 11:13 | NUR ---
REPORT CALLED TO [facility].
== END 2020-05-29 11:00 | disposition home or self-care (01) | DRG 948 ==
LOC: MS 12:01
PROVIDERS: ADMIT Internal Medicine
DX: R53.81 Other malaise (principal); E46 Unspecified protein-calorie malnutrition; G40.909 Epilepsy, unspecified, not intractable, without status epilepticus; R13.14 Dysphagia, pharyngoesophageal phase; E87.6 Hypokalemia; F41.8 Other specified anxiety disorders; F42.9 Obsessive-compulsive disorder, unspecified; Z88.8 Allergy status to other drugs, medicaments and biological substances; Z79.899 Other long term (current) drug therapy
CPT/HCPCS: 36415; 74230; 80048; 84132; 92610; 92611; 97110; 97112; 97116; 97162; 97165; 97530; 97535; J1650; J3480; J7060